=== PATIENT | male | born 1960 | race Caucasian/White ===

== ENCOUNTER 2017-06-18 10:35 | Outpatient (RCR) | payer MEDICARE, MEDICAID, SELFPAY | END 2017-07-07 23:59 | LOC: DC 10:35 | PROVIDERS: Visit Provider Podiatrist | DX: E11.42 Type 2 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with diabetic polyneuropathy (principal); E46 Unspecified protein-calorie malnutrition; T14.90XA Injury, unspecified, initial encounter; Z71.3 Dietary counseling and surveillance | CPT/HCPCS: 97803 ==

== ENCOUNTER 2017-07-07 09:30 | Outpatient (RCR) | payer MEDICARE, MEDICAID, SELFPAY ==
[2017-06-07 00:21] VITALS: BP 121/51; PULSE 84; RESP 20; TEMP 37.1; BMI 39.9
[2017-06-09 09:08] VITALS: BP 139/77; PULSE 85; RESP 20; TEMP 36.4; BMI 39.9
--- NOTE | 2017-06-09 09:52 | PN.PCM_ITS ---
(1) Type 2 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with diabetic polyneuropathy Status: Chronic Current Visit: Yes Code(s): E11.42 - Type 2 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with diabetic polyneuropathy (2) Chronic kidney disease (CKD) Status: Chronic Current Visit: Yes Qualifiers: Code(s): N18.9 - Chronic kidney disease, unspecified (3) Malnutrition Status: Chronic Current Visit: Yes Code(s): E46 - Unspecified protein- calorie malnutrition (4) Delayed wound healing Status: Chronic Current Visit: Yes Code(s): T14.8 - Other injury of unspecified body region (5) Chronic ulcer of right foot with fat layer exposed Status: Chronic Current Visit: Yes Code(s): L97.512 - Non-pressure chronic ulcer of other part of right foot with fat layer exposed Type of Wound Date of Service: 06/09/17 Chief Complaint: Right leg ulcer-healed. Right foot ulcer. Left below-knee amputation stump ulcer- healed History of Wound: 57-year-old white male returns to clinic for follow-up of bilateral leg ulcers and right foot ulcers. He denies fever, chill, nausea, vomiting, loss of appetite. He did go for intervention with Dr. Solis already. He has continued lower extremity swelling. He uses his compression pump once a day and states he does not know why he did not make it a priority to use his compression pumps twice daily as advised. He continues to follow-up with the nutrition services to improve his glucose control and reports this is going helping; he states there is still room for improvement. Progress of Wound: Improving - Physical Exam Vital Signs Temp Pulse Resp BP 97.5 F L 85 20 H 139/77 H 06/09/17 09:08 06/09/17 09:08 06/09/17 09:08 06/09/17 09:08 General: Alert, Oriented x3, Cooperative Extremities: No cyanosis, Capillary Refill Less than 3 Seconds, No Calf Tenderness - Negative Harry and Badillo sign right, Diminished Peripheral Pulses, Edema - Decreased bilateral lower extremity, - - Left below-knee amputation Skin: Ulcer/ Wound - No maceration, no erythema, no streaking, no odor, no purulence, no exposed deep tissue, Bilateral. His skin is atrophic and hairless. This is a cluster and only part of this open wound to the right foot was debrided. Wound Measurements and Assessment WC - Nurse 1 - General Ulcer Measurement Start: 06/09/17 09:08 Freq: Status: Active Protocol: Activity Type Activity Date Activity User E-Sign Co-Sign Detail Recorded Client Recorded Date Recorded By Document 06/09/17 09:08 DL [id number] 06/09/17 09:20 DL 06/09/17 09:08 Wound Center Nurse 1 [Ulcer Assessment Protocol: WC.WD.LOC] #12 RIGHT LATERAL LE -Current Size (cm) - Length 0 -Current Size (cm) - Width 0 -Current Size (cm) - Depth 0 -Total Square Cm 0 -Photo Taken Yes -Exudate Amt None Present (0 %) -Wound Margin Flat & Intact -Necrosis Amt None Present (0 %) -Texture (Martha-wound Skin Appearance) No Abnormality -Moisture (Martha-wound Skin Appearance No Abnormality ) -Color (Martha-wound Skin Appearance) No Abnormality -Temperature (Martha-wound Skin No Abnormality Appearance) (Pt Warm) -Tenderness on Palpation (Martha-wound No Skin Appearance) -Ulcer Cleansing Wound Cleanser -Foul Odor after Cleansing No #11 RIGHT PROXIMAL LE -Current Size (cm) - Length 0 -Current Size (cm) - Width 0 -Current Size (cm) - Depth 0 -Total Square Cm 0 -Photo Taken Yes -Wound Margin Indistinct, Non -Visible -Granulation Amt Large (67-100%) -Granulation Quality [place] -Necrosis Amt None Present (0 %) -Texture (Martha-wound Skin Appearance) No Abnormality -Moisture (Martha-wound Skin Appearance No Abnormality ) -Color (Martha-wound Skin Appearance) No Abnormality -Temperature (Martha-wound Skin No Abnormality Appearance) (Pt Warm) -Ulcer Cleansing Wound Cleanser -Foul Odor after Cleansing No #10- RIGHT PROXIMAL LATERAL LE cluster -Current Size (cm) - Length 0 -Current Size (cm) - Width 0 -Current Size (cm) - Depth 0 -Total Square Cm 0 -Photo Taken Yes -Exudate Amt None Present (0 %) -Wound Margin Indistinct, Non -Visible -Granulation Amt Large (67-100%) -Granulation Quality [place] -Necrosis Amt None Present (0 %) -Structure Exposed N/A -Texture (Martha-wound Skin Appearance) No Abnormality -Moisture (Martha-wound Skin Appearance No Abnormality ) -Color (Martha-wound Skin Appearance) No Abnormality -Temperature (Martha-wound Skin No Abnormality Appearance) (Pt Warm) -Ulcer Cleansing Wound Cleanser -Foul Odor after Cleansing No #3 Right Foot-Toes w/Metatarsal Head -Current Size (cm) - Length 8.6 -Current Size (cm) - Width 9.0 -Current Size (cm) - Depth 0.1 -Total Square Cm (35% of the cluster is open) 77.40 -Photo Taken No -Exudate Amt Large (67-100%) -Exudate Type Serosanguineous -Wound Margin Indistinct, Non -Visible -Granulation Amt Medium (34-66%) -Granulation Quality [place] -Necrosis Amt Medium (34-66%) -Necrotic Tissue Type Adherent Slough -Structure Exposed N/A -Texture (Martha-wound Skin Appearance) No Abnormality -Moisture (Martha-wound Skin Appearance Maceration ) -Color (Martha-wound Skin Appearance) Hemosiderin Staining -Temperature (Martha-wound Skin No Abnormality Appearance) (Pt Warm) -Ulcer Cleansing Not Cleansed -Foul Odor after Cleansing No -Anesthetic Used 4% Lidocaine Solution #1 BTK Left Stump cluster -Current Size (cm) - Length 0.1 -Current Size (cm) - Width 0.1 -Current Size (cm) - Depth 0.1 -Total Square Cm 0.01 -Photo Taken No -Exudate Amt Small (1-33%) -Exudate Type Serosanguineous -Wound Margin Indistinct, Non -Visible -Granulation Amt Large (67-100%) -Granulation Quality [place] -Necrosis Amt None Present (0 %) -Structure Exposed N/A -Texture (Martha-wound Skin Appearance) Scarring -Moisture (Martha-wound Skin Appearance No Abnormality ) -Color (Martha-wound Skin Appearance) Hemosiderin Staining -Temperature (Martha-wound Skin No Abnormality Appearance) (Pt Warm) -Ulcer Cleansing Wound Cleanser -Foul Odor after Cleansing No [Edema Assessment] -Right Calf (cm) 38.4 -Right Ankle (cm) 26.8 -Left Calf (cm) 43 WC - Nurse 2 - General Ulcer CM Notes Start: 06/09/17 09:08 Freq: Status: Active Protocol: Activity Type Activity Date Activity User E-Sign Co-Sign Detail Recorded Client Recorded Date Recorded By Document 18 09:34 [id number] 18 09:41 18 09:34 Wound Center Nurse 2 [Procedure/Treatment] #12 RIGHT LATERAL LE -Time 09:38 -Correct Patient Yes -Correct Side, Site, Position Yes -Correct Procedure Yes -Procedure Performed Yes -Wound/Ulcer Outcome Healed- Epithelialized -Ulcer Cleansing Rinsed/ Irrigated with Saline -Foul Odor after Cleansing No -Bioengineered Tissue No -Cetacaine [place] No -Bleeding Controlled with NA -Treatment Response Procedure Tolerated Well #11 RIGHT PROXIMAL LE -Time 09:38 -Correct Patient Yes -Correct Side, Site, Position Yes -Correct Procedure Yes -Procedure Performed Yes -Post Debridement Size (cm) - Length 0 -Post Debridement Size (cm) - Width 0 -Post Debridement Size (cm) - Depth 0 -Total Square Cm 0 -Wound/Ulcer Outcome Healed- Epithelialized -Ulcer Cleansing Rinsed/ Irrigated with Saline -Foul Odor after Cleansing No -Bioengineered Tissue No -Cetacaine [place] No -Bleeding Controlled with NA -Treatment Response Procedure Tolerated Well #10- RIGHT PROXIMAL LATERAL LE cluster -Time 09:39 -Correct Patient Yes -Correct Side, Site, Position Yes -Correct Procedure Yes -Procedure Performed Yes -Post Debridement Size (cm) - Length 0 -Post Debridement Size (cm) - Width 0 -Post Debridement Size (cm) - Depth 0 -Total Square Cm 0 -Wound/Ulcer Outcome Healed- Epithelialized -Ulcer Cleansing Rinsed/ Irrigated with Saline -Foul Odor after Cleansing No -Bioengineered Tissue No -Cetacaine [place] No -Bleeding Controlled with NA -Treatment Response Procedure Tolerated Well #3 Right Foot-Toes w/Metatarsal Head -Time 09:40 -Correct Patient Yes -Correct Side, Site, Position Yes -Correct Procedure Yes -Procedure Performed Yes -Type of Procedure Debridement -Clinical Debridement Subcutaneous -Post Debridement Size (cm) - Length 8.7 -Post Debridement Size (cm) - Width 9.0 -Post Debridement Size (cm) - Depth 0.1 -Total Square Cm (35% of this cluster was debrided 78.30 (27.70 debrided) -Wound/Ulcer Outcome Not Healed -Ulcer Cleansing Rinsed/ Irrigated with Saline -Foul Odor after Cleansing No -Bioengineered Tissue No -Cetacaine [place] No -Topical Lidocaine (%) 4 -Bleeding Controlled with Pressure -Treatment Response Procedure Tolerated Well #1 BTK Left Stump cluster -Time 09:40 -Correct Patient Yes -Correct Side, Site, Position Yes -Correct Procedure Yes -Procedure Performed Yes -Post Debridement Size (cm) - Length 0.1 -Post Debridement Size (cm) - Width 0.1 -Post Debridement Size (cm) - Depth 0.1 -Total Square Cm 0.01 -Wound/Ulcer Outcome Not Healed -Ulcer Cleansing Rinsed/ Irrigated with Saline -Foul Odor after Cleansing No -Bioengineered Tissue No -Cetacaine [place] No -Bleeding Controlled with NA -Other not debrided today -Treatment Response Procedure Tolerated Well [See Physician Procedure note for Specifics] Pain Scale: 0-10 Numeric [Pain] -Is Patient Pain Free? Yes Musculoskeletal: No Tenderness to Palpation of Joints or Extremities, Muscle Wasting, - - Left below-knee amputation stump site with full epithelialization noted. Lymphatic: - - Lymphedema with chronic induration noted to right lower extremity and invagination of the soft tissue structures of the ankle and foot. Decreased weeping with serosanguineous drainage noted. There is significant epithelialization noted to the right foot wound. And his right leg wounds are fully epithelialized and healed today. Neurological: - - lack Of epicritic sensation to light touch bilateral lower extremity Psych/Mental Status: Normal Affect, Appropriate Debridement Note Post-Debridement Measurements/Treatment WC - Nurse 2 - General Ulcer CM Notes Start: 06/09/17 09:08 Freq: Status: Active Protocol: Activity Type Activity Date Activity User E-Sign Co-Sign Detail Recorded Client Recorded Date Recorded By Document 06/09/17 09:34 [id number] 06/09/17 09:41 06/09/17 09:34 Wound Center Nurse 2 #12 RIGHT LATERAL LE -Time 09:38 -Correct Patient Yes -Correct Side, Site, Position Yes -Correct Procedure Yes -Procedure Performed Yes -Wound/Ulcer Outcome Healed- Epithelialized -Ulcer Cleansing Rinsed/ Irrigated with Saline -Foul Odor after Cleansing No -Bioengineered Tissue No -Cetacaine [place] No -Bleeding Controlled with NA -Treatment Response Procedure Tolerated Well #11 RIGHT PROXIMAL LE -Time 09:38 -Correct Patient Yes -Correct Side, Site, Position Yes -Correct Procedure Yes -Procedure Performed Yes -Post Debridement Size (cm) - Length 0 -Post Debridement Size (cm) - Width 0 -Post Debridement Size (cm) - Depth 0 -Total Square Cm 0 -Wound/Ulcer Outcome Healed- Epithelialized -Ulcer Cleansing Rinsed/ Irrigated with Saline -Foul Odor after Cleansing No -Bioengineered Tissue No -Cetacaine [place] No -Bleeding Controlled with NA -Treatment Response Procedure Tolerated Well #10- RIGHT PROXIMAL LATERAL LE cluster -Time 09:39 -Correct Patient Yes -Correct Side, Site, Position Yes -Correct Procedure Yes -Procedure Performed Yes -Post Debridement Size (cm) - Length 0 -Post Debridement Size (cm) - Width 0 -Post Debridement Size (cm) - Depth 0 -Total Square Cm 0 -Wound/Ulcer Outcome Healed- Epithelialized -Ulcer Cleansing Rinsed/ Irrigated with Saline -Foul Odor after Cleansing No -Bioengineered Tissue No -Cetacaine [place] No -Bleeding Controlled with NA -Treatment Response Procedure Tolerated Well #3 Right Foot-Toes w/Metatarsal Head -Time 09:40 -Correct Patient Yes -Correct Side, Site, Position Yes -Correct Procedure Yes -Procedure Performed Yes -Type of Procedure Debridement -Clinical Debridement Subcutaneous -Post Debridement Size (cm) - Length 8.7 -Post Debridement Size (cm) - Width 9.0 -Post Debridement Size (cm) - Depth 0.1 -Total Square Cm 78.30 -Wound/Ulcer Outcome Not Healed -Ulcer Cleansing Rinsed/ Irrigated with Saline -Foul Odor after Cleansing No -Bioengineered Tissue No -Cetacaine [place] No -Topical Lidocaine (%) 4 -Bleeding Controlled with Pressure -Treatment Response Procedure Tolerated Well #1 BTK Left Stump cluster -Time 09:40 -Correct Patient Yes -Correct Side, Site, Position Yes -Correct Procedure Yes -Procedure Performed Yes -Post Debridement Size (cm) - Length 0.1 -Post Debridement Size (cm) - Width 0.1 -Post Debridement Size (cm) - Depth 0.1 -Total Square Cm 0.01 -Wound/Ulcer Outcome Not Healed -Ulcer Cleansing Rinsed/ Irrigated with Saline -Foul Odor after Cleansing No -Bioengineered Tissue No -Cetacaine [place] No -Bleeding Controlled with NA -Other not debrided today -Treatment Response Procedure Tolerated Well Pain Scale: 0-10 Numeric Is Patient Pain Free? Yes Wound debrided: foot Laterality: Right Wound Grade/Stage: grade 1 Type of Debridement: Excisional debridement Percentage of wound debrided: - - 35% Instrument Used: 5mm curette Tissue Removed: Fibrous, devitalized subcutaneous, biofilm, slough Severity: Fat Layer Exposed Amount of bleeding with debridement: Mild Bleeding Controlled with: Pressure Patient tolerated procedure well Assessment/Plan Active Problems Chronic kidney disease (CKD) (Chronic) Malnutrition (Chronic) Delayed wound healing (Chronic) Chronic ulcer of right foot with fat layer exposed (Chronic) Type 2 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with diabetic polyneuropathy (Chronic) Assessment: ulcers right foot - subcutaneous tissue exposed. right leg ulcers and left lower extremit ulcers - healed. Lymphedema. Chronic lower extremity edema and venous insufficiency. Morbid obesity. Type 2 diabetes uncontrolled with peripheral neuropathy. CKD. Hypertension. Left below-knee amputation. Malnutrition. Delayed wound healing. Nonadherence to treatment plan Plan: I reviewed and discussed his case and continued care plan recommendations. His ulcer sites were evaluated as noted in the clinical panel. Debridement was performed to the right foot is noted in the clinical panel. He demonstrates significant improvement. His continued moderate level drainage is noted. Therefore he was advised to change the right foot ulcers with aquacel Ag. I recommend utilizing bilateral 3M to 2L dressing which is applied today involving the right leg and thigh and up to the left thigh even though his left below-knee amputation stump site is recently healed. It is noted the skin is very friable and he is high risk for reopening. Continue with compression dressings daily. To elevate limbs at rest. To continue to proceed forward use of his lymphedema pump twice daily. It is noted he has been using it about once a day and compliance is imperative for him to start healing at a more appropriate rate. He is now considered on complex care due to inability to fully adhere to the treatment program. It is noted he gone for further testing and intervention session with Dr. Solis and he will follow-up. I reviewed his case verbally with Dr. Solis who suspects increased perfusion is occurring status post procedure anticipates this is resolved and he has demonstrated significant improvement the last couple of weeks. He had stents placed to improve arterial perfusion. He will follow-up with him. His noninvasive vascular arterial studies were reviewed and his COY is 1.05 on the right lower extremity. This will be monitored. To continue with nutritional supplementation, Glucerna. Noted he is under the management of dietary services with the previous nutritional consultation; to continue. We discussed how important complaints at home is in he reports he has some areas in which he knows he can improve upon in regards to following his food plan. His diabetes is uncontrolled and he understands he is at risk for limb loss. To continue with proper glycemic control medical management to optimize healing. I answered all his questions. To return to clinic in 1 week or call sooner if there are any problems.
[2017-06-16 09:18] VITALS: BP 126/64; PULSE 84; RESP 16; TEMP 36.1; BMI 39.9
--- NOTE | 2017-06-16 11:11 | PCM.WC.PN ---
(1) Type 2 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with diabetic polyneuropathy Status: Chronic Current Visit: Yes Code(s): E11.42 - Type 2 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with diabetic polyneuropathy (2) Chronic kidney disease (CKD) Status: Chronic Current Visit: Yes Qualifiers: Code(s): N18.9 - Chronic kidney disease, unspecified (3) Malnutrition Status: Chronic Current Visit: Yes Code(s): E46 - Unspecified protein-calorie malnutrition (4) Delayed wound healing Status: Chronic Current Visit: Yes Code(s): T14.8 - Other injury of unspecified body region (5) Chronic ulcer of right foot with fat layer exposed Status: Chronic Current Visit: Yes Code(s): L97.512 - Non-pressure chronic ulcer of other part of right foot with fat layer exposed Type of Wound Date of Service: 06/17/17 Chief Complaint: Right foot ulcer History of Wound: 57-year-old white male returns to clinic for follow-up of bilateral leg ulcers and right foot ulcers. He denies fever, chill, nausea, vomiting, loss of appetite. He did go for intervention with Dr. Solis already. He has continued lower extremity swelling has been recently better controlled. Uses compression pump twice daily this past week as advised. Progress of Wound: Improving - Physical Exam Vital Signs Temp Pulse Resp BP 96.9 F L 84 16 126/64 H 06/16/17 09:18 06/16/17 09:18 06/16/17 09:18 06/16/17 09:18 General: Alert, Oriented x3, Cooperative Extremities: No cyanosis, Capillary Refill Less than 3 Seconds, No Calf Tenderness - Negative Harry and Badillo sign right, Diminished Peripheral Pulses, Edema - Bilateral lower extremities Skin: Ulcer/ Wound - Right foot cluster no purulence, no erythema, no streaking, no odor, no major maceration no deep tissue exposed., - - The skin is atrophic and hairless bilateral. Epithelialization is noted to left stump site Wound Measurements and Assessment WC - Nurse 1 - General Ulcer Measurement Start: 06/09/17 09:08 Freq: Status: Active Protocol: Activity Type Activity Date Activity User E-Sign Co-Sign Detail Recorded Client Recorded Date Recorded By Document 06/16/17 09:18 MW [id number] 06/16/17 09:26 MW 06/16/17 09:18 Wound Center Nurse 1 [Ulcer Assessment Protocol: WC.WD.LOC] #3 Right Foot-Toes w/Metatarsal Head -Combined with other wound No -Current Size (cm) - Length 14.5 (8.5) -Current Size (cm) - Width 10.0 (8.8) -Current Size (cm) - Depth 0.1 -Total Square Cm (30% of cluster) 145.00 (22.44 debrided) -Photo Taken No -Epithelialization None Present -Tunneling No -Undermining/Tunneling No -Circular Undermining No -Exudate Amt Large (67-100%) -Exudate Type Serosanguineous -Wound Margin Flat & Intact -Granulation Amt Small (1-33%) -Granulation Quality [place] -Slough/Fibrin Yes -Necrosis Amt Large (67-100%) -Necrotic Tissue Type Adherent Slough -Texture (Martha-wound Skin Appearance) Assessed Excoriation Localized Edema -Moisture (Martha-wound Skin Appearance Assessed ) Maceration -Color (Martha-wound Skin Appearance) No Abnormality Assessed -Temperature (Martha-wound Skin No Abnormality Appearance) (Pt Warm) -Tenderness on Palpation (Martha-wound No Skin Appearance) -Ulcer Cleansing soap and water -Foul Odor after Cleansing No -Anesthetic Used 4% Lidocaine Solution #1 BTK Left Stump cluster -Combined with other wound No -Current Size (cm) - Length 0 -Current Size (cm) - Width 0 -Current Size (cm) - Depth 0 -Total Square Cm 0 -Photo Taken No -Epithelialization None Present -Tunneling No -Undermining/Tunneling No -Circular Undermining No -Exudate Amt Large (67-100%) -Exudate Type Serosanguineous -Wound Margin Flat & Intact -Granulation Amt Small (1-33%) -Granulation Quality [place] -Slough/Fibrin Yes -Necrosis Amt Medium (34-66%) -Necrotic Tissue Type Adherent Slough -Structure Exposed N/A -Texture (Martha-wound Skin Appearance) Assessed Excoriation Localized Edema -Moisture (Martha-wound Skin Appearance Assessed ) Maceration -Color (Martha-wound Skin Appearance) No Abnormality Assessed -Temperature (Martha-wound Skin No Abnormality Appearance) (Pt Warm) -Tenderness on Palpation (Martha-wound No Skin Appearance) -Ulcer Cleansing soap and water -Foul Odor after Cleansing No -Anesthetic Used 4% Lidocaine Solution [Edema Assessment] -Lower Limb Edema Present Yes -Right Calf (cm) 36.2 -Right Ankle (cm) 27.0 -Left Calf (cm) 40.8 RADHA - Nurse 2 - General Ulcer CM Notes Start: 06/09/17 09:08 Freq: Status: Active Protocol: Activity Type Activity Date Activity User E-Sign Co-Sign Detail Recorded Client Recorded Date Recorded By Document 06/16/17 09:34 JF [id number] 06/16/17 09:38 JF 06/16/17 09:34 Wound Center Nurse 2 [Procedure/Treatment] #3 Right Foot-Toes w/Metatarsal Head -Time 09:35 -Correct Patient Yes -Correct Side, Site, Position Yes -Correct Procedure Yes -Procedure Performed Yes -Type of Procedure Debridement -Clinical Debridement Subcutaneous -Post Debridement Size (cm) - Length 14.5 (8.6) -Post Debridement Size (cm) - Width 10.0 (8.9) -Post Debridement Size (cm) - Depth 0.1 -Total Square Cm (30% of cluster) 145.00 (22.96 debrided) -Wound/Ulcer Outcome Not Healed -Ulcer Cleansing Rinsed/ Irrigated with Saline -Foul Odor after Cleansing No -Bioengineered Tissue No -Cetacaine [place] No -Bleeding Controlled with Pressure -Treatment Response Procedure Tolerated Well #1 BTK Left Stump cluster -Correct Patient No -Correct Side, Site, Position No -Correct Procedure No -Procedure Performed No -Post Debridement Size (cm) - Length 0 -Post Debridement Size (cm) - Width 0 -Post Debridement Size (cm) - Depth 0 -Total Square Cm 0 -Wound/Ulcer Outcome Healed- Epithelialized [See Physician Procedure note for Specifics] Pain Scale: 0-10 Numeric [Pain] -Is Patient Pain Free? Yes Musculoskeletal: No Tenderness to Palpation of Joints or Extremities, Muscle Wasting, - - Left below-knee amputation stump Neurological: - - lack of epicritic sensation light touch bilateral lower extremities Psych/Mental Status: Normal Affect, Appropriate Debridement Note Post-Debridement Measurements/Treatment RADHA - Nurse 2 - General Ulcer CM Notes Start: 06/09/17 09:08 Freq: Status: Active Protocol: Activity Type Activity Date Activity User E-Sign Co-Sign Detail Recorded Client Recorded Date Recorded By Document 06/09/17 09:34 TM [id number] 06/09/17 09:41 TM Document 06/16/17 09:34 JF [id number] 06/16/17 09:38 JF 06/09/17 06/16/17 09:34 09:34 Wound Center Nurse 2 #12 RIGHT LATERAL LE -Time 09:38 -Correct Patient Yes -Correct Side, Site, Position Yes -Correct Procedure Yes -Procedure Performed Yes -Wound/Ulcer Outcome Healed- Epithelialized -Ulcer Cleansing Rinsed/ Irrigated with Saline -Foul Odor after Cleansing No -Bioengineered Tissue No -Cetacaine [place] No -Bleeding Controlled with NA -Treatment Response Procedure Tolerated Well #11 RIGHT PROXIMAL LE -Time 09:38 -Correct Patient Yes -Correct Side, Site, Position Yes -Correct Procedure Yes -Procedure Performed Yes -Post Debridement Size (cm) - Length 0 -Post Debridement Size (cm) - Width 0 -Post Debridement Size (cm) - Depth 0 -Total Square Cm 0 -Wound/Ulcer Outcome Healed- Epithelialized -Ulcer Cleansing Rinsed/ Irrigated with Saline -Foul Odor after Cleansing No -Bioengineered Tissue No -Cetacaine [place] No -Bleeding Controlled with NA -Treatment Response Procedure Tolerated Well #10- RIGHT PROXIMAL LATERAL LE cluster -Time 09:39 -Correct Patient Yes -Correct Side, Site, Position Yes -Correct Procedure Yes -Procedure Performed Yes -Post Debridement Size (cm) - Length 0 -Post Debridement Size (cm) - Width 0 -Post Debridement Size (cm) - Depth 0 -Total Square Cm 0 -Wound/Ulcer Outcome Healed- Epithelialized -Ulcer Cleansing Rinsed/ Irrigated with Saline -Foul Odor after Cleansing No -Bioengineered Tissue No -Cetacaine [place] No -Bleeding Controlled with NA -Treatment Response Procedure Tolerated Well #3 Right Foot-Toes w/Metatarsal Head -Time 09:40 09:35 -Correct Patient Yes Yes -Correct Side, Site, Position Yes Yes -Correct Procedure Yes Yes -Procedure Performed Yes Yes -Type of Procedure Debridement Debridement -Clinical Debridement Subcutaneous Subcutaneous -Post Debridement Size (cm) - Length 8.7 14.5 -Post Debridement Size (cm) - Width 9.0 10.0 -Post Debridement Size (cm) - Depth 0.1 0.1 -Total Square Cm 78.30 145.00 -Wound/Ulcer Outcome Not Healed Not Healed -Ulcer Cleansing Rinsed/ Rinsed/ Irrigated with Irrigated with Saline Saline -Foul Odor after Cleansing No No -Bioengineered Tissue No No -Cetacaine [place] No No -Topical Lidocaine (%) 4 -Bleeding Controlled with Pressure Pressure -Treatment Response Procedure Procedure Tolerated Well Tolerated Well #1 BTK Left Stump cluster -Time 09:40 -Correct Patient Yes No -Correct Side, Site, Position Yes No -Correct Procedure Yes No -Procedure Performed Yes No -Post Debridement Size (cm) - Length 0.1 0 -Post Debridement Size (cm) - Width 0.1 0 -Post Debridement Size (cm) - Depth 0.1 0 -Total Square Cm 0.01 0 -Wound/Ulcer Outcome Not Healed Healed- Epithelialized -Ulcer Cleansing Rinsed/ Irrigated with Saline -Foul Odor after Cleansing No -Bioengineered Tissue No -Cetacaine [place] No -Bleeding Controlled with NA -Other not debrided today -Treatment Response Procedure Tolerated Well Pain Scale: 0-10 Numeric Is Patient Pain Free? Yes Yes Wound debrided: Foot cluster Laterality: Right Wound Grade/Stage: Grade 1 Type of Debridement: Excisional debridement Anesthesia Used: 4% Lidocaine Solution Depth: in the subcutaneous layer Percentage of wound debrided: 30 Instrument Used: 3mm curette Tissue Removed: Fibrous, devitalized subcutaneous, biofilm, slough Severity: Fat Layer Exposed Amount of bleeding with debridement: Mild Bleeding Controlled with: Pressure Assessment/Plan Active Problems Chronic kidney disease (CKD) (Chronic) Malnutrition (Chronic) Delayed wound healing (Chronic) Chronic ulcer of right foot with fat layer exposed (Chronic) Type 2 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with diabetic polyneuropathy (Chronic) Assessment: ulcers right foot - subcutaneous tissue exposed. Lymphedema. Chronic lower extremity edema and venous insufficiency. Morbid obesity. Type 2 diabetes uncontrolled with peripheral neuropathy. CKD. Hypertension. Left below-knee amputation. Malnutrition. Delayed wound healing. Nonadherence to treatment plan Plan: I reviewed and discussed his case and continued care plan recommendations. His ulcer site was evaluated as noted in the clinical panel. Debridement was performed to the right foot is noted in the clinical panel. He demonstrates significant improvement. His continued moderate level drainage is noted. Therefore he was advised to change the right foot ulcers with Guera. I recommend utilizing bilateral 3M to 2L dressing which is applied today involving the right leg and thigh and up to the left thigh even though his left below-knee amputation stump site is recently healed. It is noted the skin is very friable and he is high risk for reopening. Continue with compression dressings daily. To elevate limbs at rest. To continue to proceed forward use of his lymphedema pump twice daily. He is now considered on complex care due to inability to fully adhere to the treatment program. It is noted he had previous vascular surgery intervention. I reviewed his case verbally with Dr. Solis who suspects increased perfusion is occurring status post procedure anticipates this is resolved and he has demonstrated significant improvement the last couple of weeks. He had stents placed to improve arterial perfusion. He will follow-up with him. His noninvasive vascular arterial studies were reviewed and his COY is 1.05 on the right lower extremity. This will be monitored. To continue with nutritional supplementation, Glucerna. His diabetes is uncontrolled and he understands he is at risk for limb loss. To continue with proper glycemic control medical management to optimize healing. I answered all his questions. To return to clinic in 1 week or call sooner if there are any problems.
[2017-06-23 08:35] VITALS: BP 146/71; PULSE 81; RESP 18; TEMP 36; BMI 39.9
--- NOTE | 2017-06-23 13:59 | PCM.WC.PN ---
(1) Type 2 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with diabetic polyneuropathy Status: Chronic Code(s): E11.42 - Type 2 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with diabetic polyneuropathy (2) Chronic kidney disease (CKD) Status: Chronic Qualifiers: Code(s): N18.9 - Chronic kidney disease, unspecified (3) Malnutrition Status: Chronic Code(s): E46 - Unspecified protein-calorie malnutrition (4) Delayed wound healing Status: Chronic Code(s): T14.8 - Other injury of unspecified body region (5) Chronic ulcer of right foot with fat layer exposed Status: Chronic Code(s): L97.512 - Non-pressure chronic ulcer of other part of right foot with fat layer exposed (6) Blister Status: Acute Code(s): T14.8XXA - Other injury of unspecified body region, initial encounter Type of Wound Date of Service: 06/27/17 Chief Complaint: Right foot ulcer History of Wound: 57-year-old white male returns to clinic for follow-up of bilateral leg ulcers and right foot ulcers. He denies fever, chill, nausea, vomiting, loss of appetite. He did go for intervention with Dr. Solis already. He has continued lower extremity swelling has been recently better controlled. Uses compression pump twice daily this past week as advised.He has a new blister to his left stump site and denies a known trauma. Progress of Wound: Improving right. new blister left - Physical Exam Vital Signs Temp Pulse Resp BP 96.8 F L 81 18 146/71 H 06/23/17 08:35 06/23/17 08:35 06/23/17 08:35 06/23/17 08:35 General: Alert, Oriented x3, Cooperative Extremities: No cyanosis, Capillary Refill Less than 3 Seconds, No Calf Tenderness - Negative Harry and Badillo sign right, Diminished Peripheral Pulses, Edema - Bilateral lower extremities Skin: Ulcer/ Wound - No purulence, no erythema, streaking, no odor, no infection bilateral. There is a new blister to the central medial aspect of the left below-knee amputation stump site with minimal serous drainage on puncture; this blisters approximately 1/2 cm in diameter in the outer layer was kept inact as a biologic dressing, - - The skin is hairless and atrophic bilateral. There are new skin islands of epithelialization tissue to the right foot Wound Measurements and Assessment WC - Nurse 1 - General Ulcer Measurement Start: 06/09/17 09:08 Freq: Status: Active Protocol: Activity Type Activity Date Activity User E-Sign Co-Sign Detail Recorded Client Recorded Date Recorded By Document 06/23/17 08:35 DL [id number] 06/23/17 08:41 DL 06/23/17 08:35 Wound Center Nurse 1 [Ulcer Assessment Protocol: WC.WD.LOC] #3 Right Foot-Toes w/Metatarsal Head -Current Size (cm) - Length 9 -Current Size (cm) - Width 8.7 -Current Size (cm) - Depth 0.1 -Total Square Cm 78.3 -Photo Taken No -Exudate Amt Large (67-100%) -Exudate Type Serosanguineous -Wound Margin Distinct, Outline Attached -Granulation Amt Medium (34-66%) -Granulation Quality [place] -Necrosis Amt Medium (34-66%) -Necrotic Tissue Type Adherent Slough -Structure Exposed N/A -Texture (Martha-wound Skin Appearance) Scarring -Moisture (Martha-wound Skin Appearance Maceration ) -Color (Martha-wound Skin Appearance) No Abnormality -Temperature (Martha-wound Skin No Abnormality Appearance) (Pt Warm) -Tenderness on Palpation (Martha-wound No Skin Appearance) -Ulcer Cleansing Wound Cleanser -Foul Odor after Cleansing No -Anesthetic Used 4% Lidocaine Solution [Edema Assessment] -Right Calf (cm) 38 -Right Ankle (cm) 27.5 -Left Calf (cm) 37 - Nurse 2 - General Ulcer CM Notes Start: 06/09/17 09:08 Freq: Status: Active Protocol: Activity Type Activity Date Activity User E-Sign Co-Sign Detail Recorded Client Recorded Date Recorded By Document 06/23/17 08:49 TM [id number] 06/23/17 08:58 TM 06/23/17 08:49 Wound Center Nurse 2 [Procedure/Treatment] #3 Right Foot-Toes w/Metatarsal Head -Time 08:57 -Correct Patient Yes -Correct Side, Site, Position Yes -Correct Procedure Yes -Procedure Performed Yes -Type of Procedure Debridement -Clinical Debridement Subcutaneous -Post Debridement Size (cm) - Length 8.2 -Post Debridement Size (cm) - Width 7.4 -Post Debridement Size (cm) - Depth 0.1 -Total Square Cm 60.68 -Wound/Ulcer Outcome Not Healed -Ulcer Cleansing Rinsed/ Irrigated with Saline -Foul Odor after Cleansing No -Bioengineered Tissue No -Cetacaine [place] No -Topical Lidocaine (%) 4 -Bleeding Controlled with Pressure -Treatment Response Procedure Tolerated Well [See Physician Procedure note for Specifics] Pain Scale: 0-10 Numeric [Pain] -Is Patient Pain Free? Yes Musculoskeletal: No Tenderness to Palpation of Joints or Extremities, Muscle Wasting, - - No crepitus on palpation bilateral lower extremities. Left below-knee amputation Lymphatic: - - Lymphedema right lower extremity including forefoot Neurological: - - Lack of epicritic sensation light touch bilateral lower extremities Psych/Mental Status: Normal Affect, Appropriate Debridement Note Post-Debridement Measurements/Treatment WC - Nurse 2 - General Ulcer CM Notes Start: 06/09/17 09:08 Freq: Status: Active Protocol: Activity Type Activity Date Activity User E-Sign Co-Sign Detail Recorded Client Recorded Date Recorded By Document 06/09/17 09:34 [id number] 06/09/17 09:41 Document 06/16/17 09:34 [id number] 06/16/17 09:38 Document 06/23/17 08:49 [id number] 06/23/17 08:58 06/09/17 06/16/17 06/23/17 09:34 09:34 08:49 Wound Center Nurse 2 #12 RIGHT LATERAL LE -Time 09:38 -Correct Patient Yes -Correct Side, Site, Position Yes -Correct Procedure Yes -Procedure Performed Yes -Wound/Ulcer Outcome Healed- Epithelialized -Ulcer Cleansing Rinsed/ Irrigated with Saline -Foul Odor after Cleansing No -Bioengineered Tissue No -Cetacaine [place] No -Bleeding Controlled with NA -Treatment Response Procedure Tolerated Well #11 RIGHT PROXIMAL LE -Time 09:38 -Correct Patient Yes -Correct Side, Site, Position Yes -Correct Procedure Yes -Procedure Performed Yes -Post Debridement Size (cm) - Length 0 -Post Debridement Size (cm) - Width 0 -Post Debridement Size (cm) - Depth 0 -Total Square Cm 0 -Wound/Ulcer Outcome Healed- Epithelialized -Ulcer Cleansing Rinsed/ Irrigated with Saline -Foul Odor after Cleansing No -Bioengineered Tissue No -Cetacaine [place] No -Bleeding Controlled with NA -Treatment Response Procedure Tolerated Well #10- RIGHT PROXIMAL LATERAL LE cluster -Time 09:39 -Correct Patient Yes -Correct Side, Site, Position Yes -Correct Procedure Yes -Procedure Performed Yes -Post Debridement Size (cm) - Length 0 -Post Debridement Size (cm) - Width 0 -Post Debridement Size (cm) - Depth 0 -Total Square Cm 0 -Wound/Ulcer Outcome Healed- Epithelialized -Ulcer Cleansing Rinsed/ Irrigated with Saline -Foul Odor after Cleansing No -Bioengineered Tissue No -Cetacaine [place] No -Bleeding Controlled with NA -Treatment Response Procedure Tolerated Well #3 Right Foot-Toes w/Metatarsal Head -Time 09:40 09:35 08:57 -Correct Patient Yes Yes Yes -Correct Side, Site, Position Yes Yes Yes -Correct Procedure Yes Yes Yes -Procedure Performed Yes Yes Yes -Type of Procedure Debridement Debridement Debridement -Clinical Debridement Subcutaneous Subcutaneous Subcutaneous -Post Debridement Size (cm) - Length 8.7 14.5 8.2 -Post Debridement Size (cm) - Width 9.0 10.0 7.4 -Post Debridement Size (cm) - Depth 0.1 0.1 0.1 -Total Square Cm 78.30 145.00 60.68 -Wound/Ulcer Outcome Not Healed Not Healed Not Healed -Ulcer Cleansing Rinsed/ Rinsed/ Rinsed/ Irrigated with Irrigated with Irrigated with Saline Saline Saline -Foul Odor after Cleansing No No No -Bioengineered Tissue No No No -Cetacaine [place] No No No -Topical Lidocaine (%) 4 4 -Bleeding Controlled with Pressure Pressure Pressure -Treatment Response Procedure Procedure Procedure Tolerated Well Tolerated Well Tolerated Well #1 BTK Left Stump cluster -Time 09:40 -Correct Patient Yes No -Correct Side, Site, Position Yes No -Correct Procedure Yes No -Procedure Performed Yes No -Post Debridement Size (cm) - Length 0.1 0 -Post Debridement Size (cm) - Width 0.1 0 -Post Debridement Size (cm) - Depth 0.1 0 -Total Square Cm 0.01 0 -Wound/Ulcer Outcome Not Healed Healed- Epithelialized -Ulcer Cleansing Rinsed/ Irrigated with Saline -Foul Odor after Cleansing No -Bioengineered Tissue No -Cetacaine [place] No -Bleeding Controlled with NA -Other not debrided today -Treatment Response Procedure Tolerated Well Pain Scale: 0-10 Numeric Is Patient Pain Free? Yes Yes Yes Wound debrided: Foot Laterality: Right Wound Grade/Stage: Grade 1 Type of Debridement: Excisional debridement Anesthesia Used: 4% Lidocaine Solution Depth: in the subcutaneous layer Instrument Used: 5mm curette Tissue Removed: Fibrous, devitalized subcutaneous, biofilm, slough Severity: Fat Layer Exposed Amount of bleeding with debridement: Mild Bleeding Controlled with: Pressure Patient tolerated procedure well Assessment/Plan Assessment: ulcers right foot - subcutaneous tissue exposed. Blister left foot -no infection. Lymphedema. Chronic lower extremity edema and venous insufficiency. Morbid obesity. Type 2 diabetes uncontrolled with peripheral neuropathy. CKD. Hypertension. Left below-knee amputation. Malnutrition. Delayed wound healing. Nonadherence to treatment plan Plan: I reviewed and discussed his case and continued care plan recommendations. His ulcer site was evaluated as noted in the clinical panel. Debridement was performed to the right foot is noted in the clinical panel. He demonstrates significant improvement. The left leg blister was was gently drained of serous fluid after verbal consent and alcohol local preparation. no local anesthetic was required due to neuropathy. He tolerated this well. the outer skin layer was kept intact as a biologic agent. He was reassured there are no signs of infection noted. His continued moderate level drainage is noted to the right foot. Therefore he was advised to change the right foot ulcers with [place]. I recommend utilizing bilateral 3M to 2L dressing which is applied today involving the right leg and thigh and up to the left thigh as well. It is noted the skin is very friable and he is high risk for continued ulcers. Continue with compression dressings daily. To elevate limbs at rest. To continue to proceed forward use of his lymphedema pump twice daily. He is now considered on complex care due to inability to fully adhere to the treatment program. It is noted he had previous vascular surgery intervention. I reviewed his case verbally with Dr. Solis who suspects increased perfusion is occurring status post procedure anticipates this is resolved and he has demonstrated significant improvement the last couple of weeks. He had stents placed to improve arterial perfusion. He will follow-up with him. His noninvasive vascular arterial studies were reviewed and his COY is 1.05 on the right lower extremity. This will be monitored. To continue with nutritional supplementation, Glucerna. His diabetes is uncontrolled and he understands he is at risk for limb loss. To continue with proper glycemic control medical management to optimize healing. I answered all his questions. To return to clinic in 1 week or call sooner if there are any problems.
[2017-06-30 09:29] VITALS: BP 152/66; PULSE 86; RESP 20; TEMP 36.6; BMI 39.9
--- NOTE | 2017-06-30 11:36 | PCM.WC.PN ---
(1) Type 2 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with diabetic polyneuropathy Status: Chronic Code(s): E11.42 - Type 2 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with diabetic polyneuropathy (2) Chronic kidney disease (CKD) Status: Chronic Qualifiers: Code(s): N18.9 - Chronic kidney disease, unspecified (3) Malnutrition Status: Chronic Code(s): E46 - Unspecified protein-calorie malnutrition (4) Delayed wound healing Status: Chronic Code(s): T14.8 - Other injury of unspecified body region (5) Chronic ulcer of right foot with fat layer exposed Status: Chronic Code(s): L97.512 - Non-pressure chronic ulcer of other part of right foot with fat layer exposed (6) Blister Status: Acute Code(s): T14.8XXA - Other injury of unspecified body region, initial encounter (7) Skin tear of right lower leg without complication Status: Acute Qualifiers: Encounter type: subsequent encounter Qualified Code(s): S81.811D - Laceration without foreign body, right lower leg, subsequent encounter Code(s): S81.811A - Laceration without foreign body, right lower leg, initial encounter Type of Wound Date of Service: 07/01/17 Chief Complaint: Right foot ulcer History of Wound: 57-year-old white male returns to clinic for follow-up of bilateral leg ulcers and right foot ulcers. He denies fever, chill, nausea, vomiting, loss of appetite. He did go for intervention with Dr. Solis already. He has continued lower extremity swelling has been recently better controlled. Uses compression pump twice daily this past week as advised.He has a new blister to his left stump site and denies a known trauma. Progress of Wound: Improving right. Stable drained blister site left - Physical Exam Vital Signs Temp Pulse Resp BP 98 F 86 20 H 152/66 H 06/30/17 09:29 06/30/17 09:29 06/30/17 09:29 06/30/17 09:29 General: Alert, Oriented x3, Cooperative Extremities: No cyanosis, Capillary Refill Less than 3 Seconds, No Calf Tenderness, Diminished Peripheral Pulses, Edema - Right leg and thigh, - - Left below-knee amputation Skin: Ulcer/ Wound - No purulence, no erythema, no streaking, no odor, no necrosis. The wound size is decreasing. There is no infection left stump site biological drain blister site of left intact. Wound Measurements and Assessment WC - Nurse 1 - General Ulcer Measurement Start: 06/09/17 09:08 Freq: Status: Active Protocol: Activity Type Activity Date Activity User E-Sign Co-Sign Detail Recorded Client Recorded Date Recorded By Document 06/30/17 09:29 DL [id number] 06/30/17 09:49 DL 06/30/17 09:29 Wound Center Nurse 1 [Ulcer Assessment Protocol: RADHA.WD.LOC] #3 Right Foot-Toes w/Metatarsal Head -Current Size (cm) - Length 9.8 -Current Size (cm) - Width 9 -Current Size (cm) - Depth 0.2 -Total Square Cm (50% ofcluster is a wound 88.2 (44.1 sq cm) -Photo Taken No -Exudate Amt Large (67-100%) -Exudate Type Serosanguineous -Wound Margin Distinct, Outline Attached -Granulation Amt Medium (34-66%) -Granulation Quality Red -Necrosis Amt Medium (34-66%) -Necrotic Tissue Type Adherent Slough -Structure Exposed N/A -Texture (Martha-wound Skin Appearance) Localized Edema Scarring -Moisture (Martha-wound Skin Appearance Maceration ) -Color (Martha-wound Skin Appearance) Hemosiderin Staining -Temperature (Martha-wound Skin No Abnormality Appearance) (Pt Warm) -Ulcer Cleansing Wound Cleanser -Foul Odor after Cleansing No -Anesthetic Used 4% Lidocaine Solution [Edema Assessment] -Right Calf (cm) 40.5 -Right Ankle (cm) 27.5 -Left Calf (cm) 33.8 - Nurse 2 - General Ulcer CM Notes Start: 06/09/17 09:08 Freq: Status: Active Protocol: Activity Type Activity Date Activity User E-Sign Co-Sign Detail Recorded Client Recorded Date Recorded By Document 06/30/17 10:09 DL [id number] 06/30/17 10:11 DL 06/30/17 10:09 Wound Center Nurse 2 [Procedure/Treatment] #3 Right Foot-Toes w/Metatarsal Head -Time 10:09 -Correct Patient Yes -Correct Side, Site, Position Yes -Correct Procedure Yes -Procedure Performed Yes -Type of Procedure Debridement -Clinical Debridement Subcutaneous -Post Debridement Size (cm) - Length 9.9 -Post Debridement Size (cm) - Width 9.1 -Post Debridement Size (cm) - Depth 0.2 -Total Square Cm 90.09 (45.05) -Wound/Ulcer Outcome (50% debrided Not Healed -Ulcer Cleansing Rinsed/ Irrigated with Saline -Bioengineered Tissue No -Cetacaine Dovray No -Topical Lidocaine (%) 5 -Bleeding Controlled with Pressure -Treatment Response Procedure Tolerated Well [See Physician Procedure note for Specifics] Pain Scale: 0-10 Numeric [Pain] -Is Patient Pain Free? Yes Musculoskeletal: No Tenderness to Palpation of Joints or Extremities, Muscle Wasting, - - Compartment soft Neurological: - - Lack of sensation to epicritic touch bilateral Psych/Mental Status: Normal Affect, Appropriate Debridement Note Post-Debridement Measurements/Treatment WC - Nurse 2 - General Ulcer CM Notes Start: 06/09/17 09:08 Freq: Status: Active Protocol: Activity Type Activity Date Activity User E-Sign Co-Sign Detail Recorded Client Recorded Date Recorded By Document 06/09/17 09:34 [id number] 06/09/17 09:41 Document 06/16/17 09:34 [id number] 06/16/17 09:38 Document 06/23/17 08:49 TM [id number] 06/23/17 08:58 TM Document 06/30/17 10:09 DL [id number] 06/30/17 10:11 DL 06/09/17 06/16/17 06/23/17 09:34 09:34 08:49 Wound Center Nurse 2 #12 RIGHT LATERAL LE -Time 09:38 -Correct Patient Yes -Correct Side, Site, Position Yes -Correct Procedure Yes -Procedure Performed Yes -Wound/Ulcer Outcome Healed- Epithelialized -Ulcer Cleansing Rinsed/ Irrigated with Saline -Foul Odor after Cleansing No -Bioengineered Tissue No -Cetacaine Dovray No -Bleeding Controlled with NA -Treatment Response Procedure Tolerated Well #11 RIGHT PROXIMAL LE -Time 09:38 -Correct Patient Yes -Correct Side, Site, Position Yes -Correct Procedure Yes -Procedure Performed Yes -Post Debridement Size (cm) - Length 0 -Post Debridement Size (cm) - Width 0 -Post Debridement Size (cm) - Depth 0 -Total Square Cm 0 -Wound/Ulcer Outcome Healed- Epithelialized -Ulcer Cleansing Rinsed/ Irrigated with Saline -Foul Odor after Cleansing No -Bioengineered Tissue No -Cetacaine Dovray No -Bleeding Controlled with NA -Treatment Response Procedure Tolerated Well #10- RIGHT PROXIMAL LATERAL LE cluster -Time 09:39 -Correct Patient Yes -Correct Side, Site, Position Yes -Correct Procedure Yes -Procedure Performed Yes -Post Debridement Size (cm) - Length 0 -Post Debridement Size (cm) - Width 0 -Post Debridement Size (cm) - Depth 0 -Total Square Cm 0 -Wound/Ulcer Outcome Healed- Epithelialized -Ulcer Cleansing Rinsed/ Irrigated with Saline -Foul Odor after Cleansing No -Bioengineered Tissue No -Cetacaine Dovray No -Bleeding Controlled with NA -Treatment Response Procedure Tolerated Well #3 Right Foot-Toes w/Metatarsal Head -Time 09:40 09:35 08:57 -Correct Patient Yes Yes Yes -Correct Side, Site, Position Yes Yes Yes -Correct Procedure Yes Yes Yes -Procedure Performed Yes Yes Yes -Type of Procedure Debridement Debridement Debridement -Clinical Debridement Subcutaneous Subcutaneous Subcutaneous -Post Debridement Size (cm) - Length 8.7 14.5 8.2 -Post Debridement Size (cm) - Width 9.0 10.0 7.4 -Post Debridement Size (cm) - Depth 0.1 0.1 0.1 -Total Square Cm 78.30 145.00 60.68 -Wound/Ulcer Outcome Not Healed Not Healed Not Healed -Ulcer Cleansing Rinsed/ Rinsed/ Rinsed/ Irrigated with Irrigated with Irrigated with Saline Saline Saline -Foul Odor after Cleansing No No No -Bioengineered Tissue No No No -Cetacaine Dovray No No No -Topical Lidocaine (%) 4 4 -Bleeding Controlled with Pressure Pressure Pressure -Treatment Response Procedure Procedure Procedure Tolerated Well Tolerated Well Tolerated Well #1 BTK Left Stump cluster -Time 09:40 -Correct Patient Yes No -Correct Side, Site, Position Yes No -Correct Procedure Yes No -Procedure Performed Yes No -Post Debridement Size (cm) - Length 0.1 0 -Post Debridement Size (cm) - Width 0.1 0 -Post Debridement Size (cm) - Depth 0.1 0 -Total Square Cm 0.01 0 -Wound/Ulcer Outcome Not Healed Healed- Epithelialized -Ulcer Cleansing Rinsed/ Irrigated with Saline -Foul Odor after Cleansing No -Bioengineered Tissue No -Cetacaine Dovray No -Bleeding Controlled with NA -Other not debrided today -Treatment Response Procedure Tolerated Well Pain Scale: 0-10 Numeric Is Patient Pain Free? Yes Yes Yes 06/30/17 10:09 Wound Center Nurse 2 #12 RIGHT LATERAL LE -Time -Correct Patient -Correct Side, Site, Position -Correct Procedure -Procedure Performed -Wound/Ulcer Outcome -Ulcer Cleansing -Foul Odor after Cleansing -Bioengineered Tissue -Cetacaine Dovray -Bleeding Controlled with -Treatment Response #11 RIGHT PROXIMAL LE -Time -Correct Patient -Correct Side, Site, Position -Correct Procedure -Procedure Performed -Post Debridement Size (cm) - Length -Post Debridement Size (cm) - Width -Post Debridement Size (cm) - Depth -Total Square Cm -Wound/Ulcer Outcome -Ulcer Cleansing -Foul Odor after Cleansing -Bioengineered Tissue -Cetacaine Dovray -Bleeding Controlled with -Treatment Response #10- RIGHT PROXIMAL LATERAL LE cluster -Time -Correct Patient -Correct Side, Site, Position -Correct Procedure -Procedure Performed -Post Debridement Size (cm) - Length -Post Debridement Size (cm) - Width -Post Debridement Size (cm) - Depth -Total Square Cm -Wound/Ulcer Outcome -Ulcer Cleansing -Foul Odor after Cleansing -Bioengineered Tissue -Cetacaine Dovray -Bleeding Controlled with -Treatment Response #3 Right Foot-Toes w/Metatarsal Head -Time 10:09 -Correct Patient Yes -Correct Side, Site, Position Yes -Correct Procedure Yes -Procedure Performed Yes -Type of Procedure Debridement -Clinical Debridement Subcutaneous -Post Debridement Size (cm) - Length 9.9 -Post Debridement Size (cm) - Width 9.1 -Post Debridement Size (cm) - Depth 0.2 -Total Square Cm 90.09 -Wound/Ulcer Outcome Not Healed -Ulcer Cleansing Rinsed/ Irrigated with Saline -Foul Odor after Cleansing -Bioengineered Tissue No -Cetacaine Dovray No -Topical Lidocaine (%) 5 -Bleeding Controlled with Pressure -Treatment Response Procedure Tolerated Well #1 BTK Left Stump cluster -Time -Correct Patient -Correct Side, Site, Position -Correct Procedure -Procedure Performed -Post Debridement Size (cm) - Length -Post Debridement Size (cm) - Width -Post Debridement Size (cm) - Depth -Total Square Cm -Wound/Ulcer Outcome -Ulcer Cleansing -Foul Odor after Cleansing -Bioengineered Tissue -Cetacaine Dovray -Bleeding Controlled with -Other -Treatment Response Pain Scale: 0-10 Numeric Is Patient Pain Free? Yes Wound debrided: Foot Laterality: Right Wound Grade/Stage: Grade 1 Type of Debridement: Excisional debridement Anesthesia Used: 4% Lidocaine Solution Depth: in the subcutaneous layer Percentage of wound debrided: 100, 50 Instrument Used: #15 blade Tissue Removed: Fibrous, devitalized subcutaneous, biofilm, slough Severity: Fat Layer Exposed Amount of bleeding with debridement: Mild Bleeding Controlled with: Pressure Patient tolerated procedure well Assessment/Plan Assessment: ulcers right foot - subcutaneous tissue exposed. Blister left foot -no infection. Lymphedema. Chronic lower extremity edema and venous insufficiency. Morbid obesity. Type 2 diabetes uncontrolled with peripheral neuropathy. CKD. Hypertension. Left below-knee amputation. Malnutrition. Delayed wound healing. Nonadherence to treatment plan Plan: I reviewed and discussed his case and continued care plan recommendations. His ulcer site was evaluated as noted in the clinical panel. Debridement was performed to the right foot is noted in the clinical panel. He demonstrates significant improvement. The left leg previously drained blister was left intact. His continued moderate level drainage is noted to the right foot. Therefore he was advised to change the right foot ulcers with Guera. I recommend utilizing bilateral 3M to 2L dressing which is applied today involving the right leg and thigh and up to the left thigh as well. It is noted the skin is very friable and he is high risk for continued ulcers. His home health agency is unable to bring his supplies therefore he will return on Wednesday for dressing change. Continue with compression dressings daily. To elevate limbs at rest. To continue to proceed forward use of his lymphedema pump twice daily. He is now considered on complex care due to inability to fully adhere to the treatment program. CircAid thigh-high were ordered for the right lower extremity; he understands this is a graduated compression device. It is noted he had previous vascular surgery intervention. I reviewed his case verbally with Dr. Solis who suspects increased perfusion is occurring status post procedure anticipates this is resolved and he has demonstrated significant improvement the last couple of weeks. He had stents placed to improve arterial perfusion. He will follow-up with him. His noninvasive vascular arterial studies were reviewed and his COY is 1.05 on the right lower extremity. This will be monitored. To continue with nutritional supplementation, Glucerna. His diabetes is uncontrolled and he understands he is at risk for limb loss. To continue with proper glycemic control medical management to optimize healing. I answered all his questions. To return to clinic in 1 week or call sooner if there are any problems.
[2017-07-05 10:09] VITALS: BP 157/71; PULSE 79; RESP 18; TEMP 36.6; BMI 39.9
[2017-07-07 09:23] VITALS: BP 142/79; PULSE 79; RESP 20; TEMP 36.3; BMI 39.9
--- NOTE | 2017-07-07 11:02 | PCM.WC.PN ---
(1) Chronic ulcer of right foot with fat layer exposed Status: Chronic Current Visit: Yes Code(s): L97.512 - Non-pressure chronic ulcer of other part of right foot with fat layer exposed (2) Type 2 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with diabetic polyneuropathy Status: Chronic Current Visit: Yes Code(s): E11.42 - Type 2 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with diabetic polyneuropathy (3) Chronic kidney disease (CKD) Status: Chronic Current Visit: Yes Qualifiers: Code(s): N18.9 - Chronic kidney disease, unspecified (4) Malnutrition Status: Chronic Current Visit: Yes Code(s): E46 - Unspecified protein-calorie malnutrition (5) Blister Status: Acute Current Visit: Yes Code(s): T14.8XXA - Other injury of unspecified body region, initial encounter (6) Chronic ulcer of left leg with fat layer exposed Status: Acute Current Visit: Yes Code(s): L97.922 - Non-pressure chronic ulcer of unspecified part of left lower leg with fat layer exposed (7) Ulcer of right lower extremity with fat layer exposed Status: Acute Current Visit: Yes Code(s): L97.912 - Non-pressure chronic ulcer of unspecified part of right lower leg with fat layer exposed Type of Wound Date of Service: 07/07/17 Chief Complaint: Right foot ulcer. New blisters to right leg with new wound. new Leg wound History of Wound: 57-year-old white male returns to clinic for follow-up of bilateral leg ulcers and right foot ulcers. He denies fever, chill, nausea, vomiting, loss of appetite. He has continued lower extremity swelling has been recently better controlled. Uses compression pump once daily this past week.He has a new blister to his right leg and denies a known trauma. Progress of Wound: Improving right foot. New ulcers right leg and left leg - Physical Exam Vital Signs Temp Pulse Resp BP 97.3 F L 79 20 H 142/79 H 07/07/17 09:23 07/07/17 09:23 07/07/17 09:23 07/07/17 09:23 General: Alert, Oriented x3, Cooperative Extremities: No cyanosis, Capillary Refill Less than 3 Seconds, No Calf Tenderness - neg bean right lower extremity, Diminished Peripheral Pulses, Edema - bilateral lower extremities Skin: Ulcer/ Wound - No purulence, no erythema, no streaking, no odor, no infection bilateral. There is a horizontally anterior leg new blister with serous drainage and also a posterior lateral right leg small blister with serous drainage noted. The outer skin layer was left intact as a biologic dressing. There now is skin discontinuity to the left leg stump with peripheral skin peeling noted. The previous skin tear to the right leg site is also an open wound with exposed subcutaneous tissue. There is no deep exposed tissue noted bilateral lower extremity. there Is also new skin discontinuity to the heel with peripheral skin peeling. No eschar, blister, or infection, - - Bilateral legs are hairless and atrophic skin Wound Measurements and Assessment - Nurse 1 - General Ulcer Measurement Start: 06/09/17 09:08 Freq: Status: Active Protocol: Activity Type Activity Date Activity User E-Sign Co-Sign Detail Recorded Client Recorded Date Recorded By Document 07/05/17 10:09 BM [id number] 07/05/17 10:49 BMF Document 07/07/17 09:23 RB [id number] 07/07/17 09:44 RB 07/05/17 07/07/17 10:09 09:23 Wound Center Nurse 1 [Ulcer Assessment Protocol: WC.WD.LOC] #13 R Med Heel -Current Size (cm) - Length 1 -Current Size (cm) - Width 0.6 -Current Size (cm) - Depth 0.1 -Total Square Cm 0.6 -Photo Taken Yes -Exudate Amt Small (1-33%) -Exudate Type Serosanguineous -Wound Margin Thickened -Granulation Amt Small (1-33%) -Granulation Quality [place] Red -Necrosis Amt Small (1-33%) -Necrotic Tissue Type Adherent Slough -Structure Exposed N/A -Moisture (Martha-wound Skin Appearance Maceration ) -Color (Martha-wound Skin Appearance) No Abnormality -Tenderness on Palpation (Martha-wound No Skin Appearance) -Ulcer Cleansing Wound Cleanser -Foul Odor after Cleansing No -Anesthetic Used 4% Lidocaine Solution #3 Right Foot-Toes w/Metatarsal Head -Combined with other wound No -Current Size (cm) - Length 12.1 -Current Size (cm) - Width 9 -Current Size (cm) - Depth 0.1 -Total Square Cm 108.9 -Photo Taken No -Exudate Amt Large (67-100%) -Exudate Type Serosanguineous -Wound Margin Distinct, Outline Attached -Granulation Amt Large (67-100%) Medium (34-66%) -Granulation Quality Red [place] -Slough/Fibrin No -Necrosis Amt None Present (0 Medium (34-66%) %) -Necrotic Tissue Type Adherent Slough -Structure Exposed N/A -Texture (Martha-wound Skin Appearance) Scarring Excoriation Localized Edema Scarring -Moisture (Martha-wound Skin Appearance Maceration Maceration ) Weeping Dry/Scaly -Color (Martha-wound Skin Appearance) Erythema Hemosiderin [place] Staining -Temperature (Martha-wound Skin No Abnormality No Abnormality Appearance) (Pt Warm) (Pt Warm) -Tenderness on Palpation (Martha-wound No Skin Appearance) -Ulcer Cleansing Wound Cleanser Wound Cleanser -Foul Odor after Cleansing No No -Anesthetic Used 4% Lidocaine Solution [Edema Assessment] -Right Calf (cm) 41 -Right Ankle (cm) 27.9 -Left Calf (cm) 38.5 WC - Nurse 2 - General Ulcer CM Notes Start: 06/09/17 09:08 Freq: Status: Active Protocol: Activity Type Activity Date Activity User E-Sign Co-Sign Detail Recorded Client Recorded Date Recorded By Document 07/07/17 09:59 [id number] 07/07/17 10:01 07/07/17 09:59 Wound Center Nurse 2 [Procedure/Treatment] #13 R Med Heel -Time 09:59 -Correct Patient Yes -Correct Side, Site, Position Yes -Correct Procedure Yes -Procedure Performed Yes -Type of Procedure Debridement -Clinical Debridement Subcutaneous -Post Debridement Size (cm) - Length 1.1 -Post Debridement Size (cm) - Width 0.6 -Post Debridement Size (cm) - Depth 0.1 -Total Square Cm 0.66 -Wound/Ulcer Outcome Not Healed -Ulcer Cleansing Rinsed/ Irrigated with Saline -Foul Odor after Cleansing No -Cetacaine [place] No -Bleeding Controlled with Pressure -Treatment Response Procedure Tolerated Well #3 Right Foot-Toes w/Metatarsal Head -Time 10:00 -Correct Patient Yes -Correct Side, Site, Position Yes -Correct Procedure Yes -Procedure Performed Yes -Type of Procedure Debridement -Clinical Debridement Subcutaneous -Post Debridement Size (cm) - Length 12.2 -Post Debridement Size (cm) - Width 9.1 -Post Debridement Size (cm) - Depth 0.2 -Total Square Cm 111.02 -Wound/Ulcer Outcome Not Healed -Ulcer Cleansing Rinsed/ Irrigated with Saline -Foul Odor after Cleansing No -Bioengineered Tissue No -Cetacaine [place] No -Bleeding Controlled with Pressure -Other only 20% of ulcer debrided= 22.204cm2. -Treatment Response Procedure Tolerated Well #1 BTK Left Stump cluster -Time 10:01 -Correct Patient Yes -Correct Side, Site, Position Yes -Correct Procedure Yes -Procedure Performed Yes -Type of Procedure Debridement -Clinical Debridement Subcutaneous -Post Debridement Size (cm) - Length 0.6 -Post Debridement Size (cm) - Width 0.8 -Post Debridement Size (cm) - Depth 0.2 -Total Square Cm 0.48 -Wound/Ulcer Outcome Not Healed -Ulcer Cleansing Rinsed/ Irrigated with Saline -Foul Odor after Cleansing No -Bioengineered Tissue No -Cetacaine [place] No -Bleeding Controlled with Pressure -Treatment Response Procedure Tolerated Well [See Physician Procedure note for Specifics] Pain Scale: 0-10 Numeric [Pain] -Is Patient Pain Free? Yes Musculoskeletal: No Tenderness to Palpation of Joints or Extremities, Muscle Wasting, - - Left below-knee amputation Neurological: - - Lack of epicritic sensation light touch bilateral lower extremities Psych/Mental Status: Normal Affect, Appropriate Debridement Note Post-Debridement Measurements/Treatment WC - Nurse 2 - General Ulcer CM Notes Start: 06/09/17 09:08 Freq: Status: Active Protocol: Activity Type Activity Date Activity User E-Sign Co-Sign Detail Recorded Client Recorded Date Recorded By Document 06/09/17 09:34 [id number] 06/09/17 09:41 Document 06/16/17 09:34 [id number] 06/16/17 09:38 Document 06/23/17 08:49 TM [id number] 06/23/17 08:58 TM Document 06/30/17 10:09 DL [id number] 06/30/17 10:11 DL Document 07/07/17 09:59 JF [id number] 07/07/17 10:01 06/09/17 06/16/17 06/23/17 09:34 09:34 08:49 Wound Center Nurse 2 #13 R Med Heel -Time -Correct Patient -Correct Side, Site, Position -Correct Procedure -Procedure Performed -Type of Procedure -Clinical Debridement -Post Debridement Size (cm) - Length -Post Debridement Size (cm) - Width -Post Debridement Size (cm) - Depth -Total Square Cm -Wound/Ulcer Outcome -Ulcer Cleansing -Foul Odor after Cleansing -Cetacaine [place] -Bleeding Controlled with -Treatment Response #12 RIGHT LATERAL LE -Time 09:38 -Correct Patient Yes -Correct Side, Site, Position Yes -Correct Procedure Yes -Procedure Performed Yes -Wound/Ulcer Outcome Healed- Epithelialized -Ulcer Cleansing Rinsed/ Irrigated with Saline -Foul Odor after Cleansing No -Bioengineered Tissue No -Cetacaine [place] No -Bleeding Controlled with NA -Treatment Response Procedure Tolerated Well #11 RIGHT PROXIMAL LE -Time 09:38 -Correct Patient Yes -Correct Side, Site, Position Yes -Correct Procedure Yes -Procedure Performed Yes -Post Debridement Size (cm) - Length 0 -Post Debridement Size (cm) - Width 0 -Post Debridement Size (cm) - Depth 0 -Total Square Cm 0 -Wound/Ulcer Outcome Healed- Epithelialized -Ulcer Cleansing Rinsed/ Irrigated with Saline -Foul Odor after Cleansing No -Bioengineered Tissue No -Cetacaine [place] No -Bleeding Controlled with NA -Treatment Response Procedure Tolerated Well #10- RIGHT PROXIMAL LATERAL LE cluster -Time 09:39 -Correct Patient Yes -Correct Side, Site, Position Yes -Correct Procedure Yes -Procedure Performed Yes -Post Debridement Size (cm) - Length 0 -Post Debridement Size (cm) - Width 0 -Post Debridement Size (cm) - Depth 0 -Total Square Cm 0 -Wound/Ulcer Outcome Healed- Epithelialized -Ulcer Cleansing Rinsed/ Irrigated with Saline -Foul Odor after Cleansing No -Bioengineered Tissue No -Cetacaine [place] No -Bleeding Controlled with NA -Treatment Response Procedure Tolerated Well #3 Right Foot-Toes w/Metatarsal Head -Time 09:40 09:35 08:57 -Correct Patient Yes Yes Yes -Correct Side, Site, Position Yes Yes Yes -Correct Procedure Yes Yes Yes -Procedure Performed Yes Yes Yes -Type of Procedure Debridement Debridement Debridement -Clinical Debridement Subcutaneous Subcutaneous Subcutaneous -Post Debridement Size (cm) - Length 8.7 14.5 8.2 -Post Debridement Size (cm) - Width 9.0 10.0 7.4 -Post Debridement Size (cm) - Depth 0.1 0.1 0.1 -Total Square Cm 78.30 145.00 60.68 -Wound/Ulcer Outcome Not Healed Not Healed Not Healed -Ulcer Cleansing Rinsed/ Rinsed/ Rinsed/ Irrigated with Irrigated with Irrigated with Saline Saline Saline -Foul Odor after Cleansing No No No -Bioengineered Tissue No No No -Cetacaine [place] No No No -Topical Lidocaine (%) 4 4 -Bleeding Controlled with Pressure Pressure Pressure -Other -Treatment Response Procedure Procedure Procedure Tolerated Well Tolerated Well Tolerated Well #1 BTK Left Stump cluster -Time 09:40 -Correct Patient Yes No -Correct Side, Site, Position Yes No -Correct Procedure Yes No -Procedure Performed Yes No -Type of Procedure -Clinical Debridement -Post Debridement Size (cm) - Length 0.1 0 -Post Debridement Size (cm) - Width 0.1 0 -Post Debridement Size (cm) - Depth 0.1 0 -Total Square Cm 0.01 0 -Wound/Ulcer Outcome Not Healed Healed- Epithelialized -Ulcer Cleansing Rinsed/ Irrigated with Saline -Foul Odor after Cleansing No -Bioengineered Tissue No -Cetacaine [place] No -Bleeding Controlled with NA -Other not debrided today -Treatment Response Procedure Tolerated Well Pain Scale: 0-10 Numeric Is Patient Pain Free? Yes Yes Yes 06/30/17 07/07/17 10:09 09:59 Wound Center Nurse 2 #13 R Med Heel -Time 09:59 -Correct Patient Yes -Correct Side, Site, Position Yes -Correct Procedure Yes -Procedure Performed Yes -Type of Procedure Debridement -Clinical Debridement Subcutaneous -Post Debridement Size (cm) - Length 1.1 -Post Debridement Size (cm) - Width 0.6 -Post Debridement Size (cm) - Depth 0.1 -Total Square Cm 0.66 -Wound/Ulcer Outcome Not Healed -Ulcer Cleansing Rinsed/ Irrigated with Saline -Foul Odor after Cleansing No -Cetacaine [place] No -Bleeding Controlled with Pressure -Treatment Response Procedure Tolerated Well #12 RIGHT LATERAL LE -Time -Correct Patient -Correct Side, Site, Position -Correct Procedure -Procedure Performed -Wound/Ulcer Outcome -Ulcer Cleansing -Foul Odor after Cleansing -Bioengineered Tissue -Cetacaine [place] -Bleeding Controlled with -Treatment Response #11 RIGHT PROXIMAL LE -Time -Correct Patient -Correct Side, Site, Position -Correct Procedure -Procedure Performed -Post Debridement Size (cm) - Length -Post Debridement Size (cm) - Width -Post Debridement Size (cm) - Depth -Total Square Cm -Wound/Ulcer Outcome -Ulcer Cleansing -Foul Odor after Cleansing -Bioengineered Tissue -Cetacaine [place] -Bleeding Controlled with -Treatment Response #10- RIGHT PROXIMAL LATERAL LE cluster -Time -Correct Patient -Correct Side, Site, Position -Correct Procedure -Procedure Performed -Post Debridement Size (cm) - Length -Post Debridement Size (cm) - Width -Post Debridement Size (cm) - Depth -Total Square Cm -Wound/Ulcer Outcome -Ulcer Cleansing -Foul Odor after Cleansing -Bioengineered Tissue -Cetacaine [place] -Bleeding Controlled with -Treatment Response #3 Right Foot-Toes w/Metatarsal Head -Time 10:09 10:00 -Correct Patient Yes Yes -Correct Side, Site, Position Yes Yes -Correct Procedure Yes Yes -Procedure Performed Yes Yes -Type of Procedure Debridement Debridement -Clinical Debridement Subcutaneous Subcutaneous -Post Debridement Size (cm) - Length 9.9 12.2 -Post Debridement Size (cm) - Width 9.1 9.1 -Post Debridement Size (cm) - Depth 0.2 0.2 -Total Square Cm 90.09 111.02 -Wound/Ulcer Outcome Not Healed Not Healed -Ulcer Cleansing Rinsed/ Rinsed/ Irrigated with Irrigated with Saline Saline -Foul Odor after Cleansing No -Bioengineered Tissue No No -Cetacaine [place] No No -Topical Lidocaine (%) 5 -Bleeding Controlled with Pressure Pressure -Other only 20% of ulcer debrided= 22.204cm2. -Treatment Response Procedure Procedure Tolerated Well Tolerated Well #1 BTK Left Stump cluster -Time 10:01 -Correct Patient Yes -Correct Side, Site, Position Yes -Correct Procedure Yes -Procedure Performed Yes -Type of Procedure Debridement -Clinical Debridement Subcutaneous -Post Debridement Size (cm) - Length 0.6 -Post Debridement Size (cm) - Width 0.8 -Post Debridement Size (cm) - Depth 0.2 -Total Square Cm 0.48 -Wound/Ulcer Outcome Not Healed -Ulcer Cleansing Rinsed/ Irrigated with Saline -Foul Odor after Cleansing No -Bioengineered Tissue No -Cetacaine [place] No -Bleeding Controlled with Pressure -Other -Treatment Response Procedure Tolerated Well Pain Scale: 0-10 Numeric Is Patient Pain Free? Yes Yes Wound debrided: Foot Laterality: Right Wound Grade/Stage: grade 1 Type of Debridement: Excisional debridement Anesthesia Used: 4% Lidocaine Solution Depth: in the subcutaneous layer Percentage of wound debrided: 20 Instrument Used: #15 blade Tissue Removed: Fibrous, devitalized subcutaneous, biofilm, slough Severity: Fat Layer Exposed Amount of bleeding with debridement: Mild Bleeding Controlled with: Pressure Patient tolerated procedure well - Additional Wound Wound debrided: Leg Laterality: Left Wound Grade/Stage: grade 1 Type of Debridement: Excisional debridement Anesthesia Used: 4% Lidocaine Solution Depth: in the subcutaneous layer Percentage of wound debrided: 100 Instrument Used: #15 blade Tissue Removed: Fibrous, devitalized subcutaneous, biofilm, slough Severity: Fat Layer Exposed Amount of bleeding with debridement: Mild Bleeding Controlled with: Pressure Patient tolerated procedure: Patient tolerated procedure well - Additional Wound Wound debrided: leg Laterality: Right Wound Grade/Stage: Grade 1 Type of Debridement: Excisional debridement Anesthesia Used: 4% Lidocaine Solution Depth: in the subcutaneous layer Percentage of wound debrided: 100 Instrument Used: #15 blade Tissue Removed: Fibrous, devitalized subcutaneous, biofilm, slough Severity: Fat Layer Exposed Amount of bleeding with debridement: Mild Bleeding Controlled with: Pressure Patient tolerated procedure: Patient tolerated procedure well - Additional Wound Wound debrided: Heel Laterality: Right Wound Grade/Stage: Grade 1 Type of Debridement: Excisional debridement Anesthesia Used: 4% Lidocaine Solution Depth: in the subcutaneous layer Percentage of wound debrided: 100 Instrument Used: #15 blade Tissue Removed: Fibrous, devitalized subcutaneous, biofilm, slough Severity: Fat Layer Exposed Amount of bleeding with debridement: Mild Bleeding Controlled with: Pressure Patient tolerated procedure: Patient tolerated procedure well Assessment/Plan Active Problems Chronic kidney disease (CKD) (Chronic) Malnutrition (Chronic) Delayed wound healing (Chronic) Chronic ulcer of left leg with fat layer exposed (Acute) Chronic ulcer of right foot with fat layer exposed (Chronic) Ulcer of right lower extremity with fat layer exposed (Acute) Type 2 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with diabetic polyneuropathy (Chronic) Blister (Acute) Assessment: ulcers right foot - subcutaneous tissue exposed. Ulcers right leg, right heel, left leg are new-subcutaneous tissue exposed. Blister right leg-no infection, new. Lymphedema. Chronic lower extremity edema and venous insufficiency. Morbid obesity. Type 2 diabetes uncontrolled with peripheral neuropathy. CKD. Hypertension. Left below-knee amputation. Malnutrition. Delayed wound healing. Nonadherence to treatment plan Plan: I reviewed and discussed his case and continued care plan recommendations. His ulcer sites were evaluated as noted in the clinical panel. Debridement was performed as noted in the clinical panel. His blister sites were drained with a 15 blade after alcohol preparation. Only serous fluid was drained. The outer skin was left intact as a biologic dressing. He is reassured he does not have signs of local infection today. His continued moderate level drainage is noted to the right foot. Therefore he was advised to change the right foot ulcers with [place]. I recommend utilizing bilateral 3M to 2L dressing which is applied today involving the right leg and thigh and up to the left thigh as well. It is noted the skin is very friable and he is high risk for continued ulcers. His home health agency has not delivered his dressings yet as expected. He will return for nursing visits if needed if his supplies do not continue to arrive. Continue with compression dressings daily. To elevate limbs at rest. To continue to proceed forward use of his lymphedema pump twice daily. He is now considered on complex care due to inability to fully adhere to the treatment program. CircAid thigh-high were ordered for the right lower extremity; he understands this is a graduated compression device. It is noted he had previous vascular surgery intervention. I reviewed his case verbally with Dr. Solis who suspects increased perfusion is occurring status post procedure anticipates this is resolved and he has demonstrated significant improvement the last couple of weeks. He had stents placed to improve arterial perfusion. He will follow-up with him. His noninvasive vascular arterial studies were reviewed and his COY is 1.05 on the right lower extremity. This will be monitored. To continue with nutritional supplementation, Glucerna. His diabetes is uncontrolled and he understands he is at risk for limb loss. To continue with proper glycemic control medical management to optimize healing. I answered all his questions. To return to clinic in 1 week or call sooner if there are any problems.
--- NOTE | 2017-07-07 11:05 | PN.PCM_ITS ---
(1) Chronic ulcer of right foot with fat layer exposed Status: Chronic Current Visit: Yes Code(s): L97.512 - Non-pressure chronic ulcer of other part of right foot with fat layer exposed (2) Type 2 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with diabetic polyneuropathy Status: Chronic Current Visit: Yes Code(s): E11.42 - Type 2 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with diabetic polyneuropathy (3) Chronic kidney disease (CKD) Status: Chronic Current Visit: Yes Qualifiers: Code(s): N18.9 - Chronic kidney disease, unspecified (4) Malnutrition Status: Chronic Current Visit: Yes Code(s): E46 - Unspecified protein- calorie malnutrition (5) Blister Status: Acute Current Visit: Yes Code(s): T14.8XXA - Other injury of unspecified body region, initial encounter (6) Chronic ulcer of left leg with fat layer exposed Status: Acute Current Visit: Yes Code(s): L97.922 - Non-pressure chronic ulcer of unspecified part of left lower leg with fat layer exposed (7) Ulcer of right lower extremity with fat layer exposed Status: Acute Current Visit: Yes Code(s): L97.912 - Non-pressure chronic ulcer of unspecified part of right lower leg with fat layer exposed Type of Wound Date of Service: 07/07/17 Chief Complaint: Right foot ulcer. New blisters to right leg with new wound. new Leg wound History of Wound: 57-year-old white male returns to clinic for follow-up of bilateral leg ulcers and right foot ulcers. He denies fever, chill, nausea, vomiting, loss of appetite. He has continued lower extremity swelling has been recently better controlled. Uses compression pump once daily this past week.He has a new blister to his right leg and denies a known trauma. Progress of Wound: Improving right foot. New ulcers right leg and left leg - Physical Exam Vital Signs Temp Pulse Resp BP 97.3 F L 79 20 H 142/79 H 07/07/17 09:23 07/07/17 09:23 07/07/17 09:23 07/07/17 09:23 General: Alert, Oriented x3, Cooperative Extremities: No cyanosis, Capillary Refill Less than 3 Seconds, No Calf Tenderness - neg bean right lower extremity, Diminished Peripheral Pulses, Edema - bilateral lower extremities Skin: Ulcer/ Wound - No purulence, no erythema, no streaking, no odor, no infection bilateral. There is a horizontally anterior leg new blister with serous drainage and also a posterior lateral right leg small blister with serous drainage noted. The outer skin layer was left intact as a biologic dressing. There now is skin discontinuity to the left leg stump with peripheral skin peeling noted. The previous skin tear to the right leg site is also an open wound with exposed subcutaneous tissue. There is no deep exposed tissue noted bilateral lower extremity. there Is also new skin discontinuity to the heel with peripheral skin peeling. No eschar, blister, or infection, - - Bilateral legs are hairless and atrophic skin Wound Measurements and Assessment - Nurse 1 - General Ulcer Measurement Start: 06/09/17 09:08 Freq: Status: Active Protocol: Activity Type Activity Date Activity User E-Sign Co-Sign Detail Recorded Client Recorded Date Recorded By Document 07/05/17 10:09 BM [id number] 07/05/17 10:49 BMF Document 07/07/17 09:23 RB [id number] 07/07/17 09:44 RB 07/05/17 07/07/17 10:09 09:23 Wound Center Nurse 1 [Ulcer Assessment Protocol: WC.WD.LOC] #13 R Med Heel -Current Size (cm) - Length 1 -Current Size (cm) - Width 0.6 -Current Size (cm) - Depth 0.1 -Total Square Cm 0.6 -Photo Taken Yes -Exudate Amt Small (1-33%) -Exudate Type Serosanguineous -Wound Margin Thickened -Granulation Amt Small (1-33%) -Granulation Quality [place] -Necrosis Amt Small (1-33%) -Necrotic Tissue Type Adherent Slough -Structure Exposed N/A -Moisture (Martha-wound Skin Appearance Maceration ) -Color (Martha-wound Skin Appearance) No Abnormality -Tenderness on Palpation (Martha-wound No Skin Appearance) -Ulcer Cleansing Wound Cleanser -Foul Odor after Cleansing No -Anesthetic Used 4% Lidocaine Solution #3 Right Foot-Toes w/Metatarsal Head -Combined with other wound No -Current Size (cm) - Length 12.1 -Current Size (cm) - Width 9 -Current Size (cm) - Depth 0.1 -Total Square Cm 108.9 -Photo Taken No -Exudate Amt Large (67-100%) -Exudate Type Serosanguineous -Wound Margin Distinct, Outline Attached -Granulation Amt Large (67-100%) Medium (34-66%) -Granulation Quality [place] -Slough/Fibrin No -Necrosis Amt None Present (0 Medium (34-66%) %) -Necrotic Tissue Type Adherent Slough -Structure Exposed N/A -Texture (Martha-wound Skin Appearance) Scarring Excoriation Localized Edema Scarring -Moisture (Martha-wound Skin Appearance Maceration Maceration ) Weeping Dry/Scaly -Color (Martha-wound Skin Appearance) Erythema Hemosiderin [place] Staining -Temperature (Martha-wound Skin No Abnormality No Abnormality Appearance) (Pt Warm) (Pt Warm) -Tenderness on Palpation (Martha-wound No Skin Appearance) -Ulcer Cleansing Wound Cleanser Wound Cleanser -Foul Odor after Cleansing No No -Anesthetic Used 4% Lidocaine Solution [Edema Assessment] -Right Calf (cm) 41 -Right Ankle (cm) 27.9 -Left Calf (cm) 38.5 WC - Nurse 2 - General Ulcer CM Notes Start: 06/09/17 09:08 Freq: Status: Active Protocol: Activity Type Activity Date Activity User E-Sign Co-Sign Detail Recorded Client Recorded Date Recorded By Document 07/07/17 09:59 [id number] 07/07/17 10:01 07/07/17 09:59 Wound Center Nurse 2 [Procedure/Treatment] #13 R Med Heel -Time 09:59 -Correct Patient Yes -Correct Side, Site, Position Yes -Correct Procedure Yes -Procedure Performed Yes -Type of Procedure Debridement -Clinical Debridement Subcutaneous -Post Debridement Size (cm) - Length 1.1 -Post Debridement Size (cm) - Width 0.6 -Post Debridement Size (cm) - Depth 0.1 -Total Square Cm 0.66 -Wound/Ulcer Outcome Not Healed -Ulcer Cleansing Rinsed/ Irrigated with Saline -Foul Odor after Cleansing No -Cetacaine [place] No -Bleeding Controlled with Pressure -Treatment Response Procedure Tolerated Well #3 Right Foot-Toes w/Metatarsal Head -Time 10:00 -Correct Patient Yes -Correct Side, Site, Position Yes -Correct Procedure Yes -Procedure Performed Yes -Type of Procedure Debridement -Clinical Debridement Subcutaneous -Post Debridement Size (cm) - Length 12.2 -Post Debridement Size (cm) - Width 9.1 -Post Debridement Size (cm) - Depth 0.2 -Total Square Cm 111.02 -Wound/Ulcer Outcome Not Healed -Ulcer Cleansing Rinsed/ Irrigated with Saline -Foul Odor after Cleansing No -Bioengineered Tissue No -Cetacaine [place] No -Bleeding Controlled with Pressure -Other only 20% of ulcer debrided= 22.204cm2. -Treatment Response Procedure Tolerated Well #1 BTK Left Stump cluster -Time 10:01 -Correct Patient Yes -Correct Side, Site, Position Yes -Correct Procedure Yes -Procedure Performed Yes -Type of Procedure Debridement -Clinical Debridement Subcutaneous -Post Debridement Size (cm) - Length 0.6 -Post Debridement Size (cm) - Width 0.8 -Post Debridement Size (cm) - Depth 0.2 -Total Square Cm 0.48 -Wound/Ulcer Outcome Not Healed -Ulcer Cleansing Rinsed/ Irrigated with Saline -Foul Odor after Cleansing No -Bioengineered Tissue No -Cetacaine [place] No -Bleeding Controlled with Pressure -Treatment Response Procedure Tolerated Well [See Physician Procedure note for Specifics] Pain Scale: 0-10 Numeric [Pain] -Is Patient Pain Free? Yes Musculoskeletal: No Tenderness to Palpation of Joints or Extremities, Muscle Wasting, - - Left below-knee amputation Neurological: - - Lack of epicritic sensation light touch bilateral lower extremities Psych/Mental Status: Normal Affect, Appropriate Debridement Note Post-Debridement Measurements/Treatment WC - Nurse 2 - General Ulcer CM Notes Start: 06/09/17 09:08 Freq: Status: Active Protocol: Activity Type Activity Date Activity User E-Sign Co-Sign Detail Recorded Client Recorded Date Recorded By Document 06/09/17 09:34 [id number] 06/09/17 09:41 Document 06/16/17 09:34 [id number] 06/16/17 09:38 Document 06/23/17 08:49 TM [id number] 06/23/17 08:58 TM Document 06/30/17 10:09 DL [id number] 06/30/17 10:11 DL Document 07/07/17 09:59 JF [id number] 07/07/17 10:01 06/09/17 06/16/17 06/23/17 09:34 09:34 08:49 Wound Center Nurse 2 #13 R Med Heel -Time -Correct Patient -Correct Side, Site, Position -Correct Procedure -Procedure Performed -Type of Procedure -Clinical Debridement -Post Debridement Size (cm) - Length -Post Debridement Size (cm) - Width -Post Debridement Size (cm) - Depth -Total Square Cm -Wound/Ulcer Outcome -Ulcer Cleansing -Foul Odor after Cleansing -Cetacaine [place] -Bleeding Controlled with -Treatment Response #12 RIGHT LATERAL LE -Time 09:38 -Correct Patient Yes -Correct Side, Site, Position Yes -Correct Procedure Yes -Procedure Performed Yes -Wound/Ulcer Outcome Healed- Epithelialized -Ulcer Cleansing Rinsed/ Irrigated with Saline -Foul Odor after Cleansing No -Bioengineered Tissue No -Cetacaine [place] No -Bleeding Controlled with NA -Treatment Response Procedure Tolerated Well #11 RIGHT PROXIMAL LE -Time 09:38 -Correct Patient Yes -Correct Side, Site, Position Yes -Correct Procedure Yes -Procedure Performed Yes -Post Debridement Size (cm) - Length 0 -Post Debridement Size (cm) - Width 0 -Post Debridement Size (cm) - Depth 0 -Total Square Cm 0 -Wound/Ulcer Outcome Healed- Epithelialized -Ulcer Cleansing Rinsed/ Irrigated with Saline -Foul Odor after Cleansing No -Bioengineered Tissue No -Cetacaine [place] No -Bleeding Controlled with NA -Treatment Response Procedure Tolerated Well #10- RIGHT PROXIMAL LATERAL LE cluster -Time 09:39 -Correct Patient Yes -Correct Side, Site, Position Yes -Correct Procedure Yes -Procedure Performed Yes -Post Debridement Size (cm) - Length 0 -Post Debridement Size (cm) - Width 0 -Post Debridement Size (cm) - Depth 0 -Total Square Cm 0 -Wound/Ulcer Outcome Healed- Epithelialized -Ulcer Cleansing Rinsed/ Irrigated with Saline -Foul Odor after Cleansing No -Bioengineered Tissue No -Cetacaine [place] No -Bleeding Controlled with NA -Treatment Response Procedure Tolerated Well #3 Right Foot-Toes w/Metatarsal Head -Time 09:40 09:35 08:57 -Correct Patient Yes Yes Yes -Correct Side, Site, Position Yes Yes Yes -Correct Procedure Yes Yes Yes -Procedure Performed Yes Yes Yes -Type of Procedure Debridement Debridement Debridement -Clinical Debridement Subcutaneous Subcutaneous Subcutaneous -Post Debridement Size (cm) - Length 8.7 14.5 8.2 -Post Debridement Size (cm) - Width 9.0 10.0 7.4 -Post Debridement Size (cm) - Depth 0.1 0.1 0.1 -Total Square Cm 78.30 145.00 60.68 -Wound/Ulcer Outcome Not Healed Not Healed Not Healed -Ulcer Cleansing Rinsed/ Rinsed/ Rinsed/ Irrigated with Irrigated with Irrigated with Saline Saline Saline -Foul Odor after Cleansing No No No -Bioengineered Tissue No No No -Cetacaine [place] No No No -Topical Lidocaine (%) 4 4 -Bleeding Controlled with Pressure Pressure Pressure -Other -Treatment Response Procedure Procedure Procedure Tolerated Well Tolerated Well Tolerated Well #1 BTK Left Stump cluster -Time 09:40 -Correct Patient Yes No -Correct Side, Site, Position Yes No -Correct Procedure Yes No -Procedure Performed Yes No -Type of Procedure -Clinical Debridement -Post Debridement Size (cm) - Length 0.1 0 -Post Debridement Size (cm) - Width 0.1 0 -Post Debridement Size (cm) - Depth 0.1 0 -Total Square Cm 0.01 0 -Wound/Ulcer Outcome Not Healed Healed- Epithelialized -Ulcer Cleansing Rinsed/ Irrigated with Saline -Foul Odor after Cleansing No -Bioengineered Tissue No -Cetacaine [place] No -Bleeding Controlled with NA -Other not debrided today -Treatment Response Procedure Tolerated Well Pain Scale: 0-10 Numeric Is Patient Pain Free? Yes Yes Yes 06/30/17 07/07/17 10:09 09:59 Wound Center Nurse 2 #13 R Med Heel -Time 09:59 -Correct Patient Yes -Correct Side, Site, Position Yes -Correct Procedure Yes -Procedure Performed Yes -Type of Procedure Debridement -Clinical Debridement Subcutaneous -Post Debridement Size (cm) - Length 1.1 -Post Debridement Size (cm) - Width 0.6 -Post Debridement Size (cm) - Depth 0.1 -Total Square Cm 0.66 -Wound/Ulcer Outcome Not Healed -Ulcer Cleansing Rinsed/ Irrigated with Saline -Foul Odor after Cleansing No -Cetacaine [place] No -Bleeding Controlled with Pressure -Treatment Response Procedure Tolerated Well #12 RIGHT LATERAL LE -Time -Correct Patient -Correct Side, Site, Position -Correct Procedure -Procedure Performed -Wound/Ulcer Outcome -Ulcer Cleansing -Foul Odor after Cleansing -Bioengineered Tissue -Cetacaine [place] -Bleeding Controlled with -Treatment Response #11 RIGHT PROXIMAL LE -Time -Correct Patient -Correct Side, Site, Position -Correct Procedure -Procedure Performed -Post Debridement Size (cm) - Length -Post Debridement Size (cm) - Width -Post Debridement Size (cm) - Depth -Total Square Cm -Wound/Ulcer Outcome -Ulcer Cleansing -Foul Odor after Cleansing -Bioengineered Tissue -Cetacaine [place] -Bleeding Controlled with -Treatment Response #10- RIGHT PROXIMAL LATERAL LE cluster -Time -Correct Patient -Correct Side, Site, Position -Correct Procedure -Procedure Performed -Post Debridement Size (cm) - Length -Post Debridement Size (cm) - Width -Post Debridement Size (cm) - Depth -Total Square Cm -Wound/Ulcer Outcome -Ulcer Cleansing -Foul Odor after Cleansing -Bioengineered Tissue -Cetacaine [place] -Bleeding Controlled with -Treatment Response #3 Right Foot-Toes w/Metatarsal Head -Time 10:09 10:00 -Correct Patient Yes Yes -Correct Side, Site, Position Yes Yes -Correct Procedure Yes Yes -Procedure Performed Yes Yes -Type of Procedure Debridement Debridement -Clinical Debridement Subcutaneous Subcutaneous -Post Debridement Size (cm) - Length 9.9 12.2 -Post Debridement Size (cm) - Width 9.1 9.1 -Post Debridement Size (cm) - Depth 0.2 0.2 -Total Square Cm 90.09 111.02 -Wound/Ulcer Outcome Not Healed Not Healed -Ulcer Cleansing Rinsed/ Rinsed/ Irrigated with Irrigated with Saline Saline -Foul Odor after Cleansing No -Bioengineered Tissue No No -Cetacaine [place] No No -Topical Lidocaine (%) 5 -Bleeding Controlled with Pressure Pressure -Other only 20% of ulcer debrided= 22.204cm2. -Treatment Response Procedure Procedure Tolerated Well Tolerated Well #1 BTK Left Stump cluster -Time 10:01 -Correct Patient Yes -Correct Side, Site, Position Yes -Correct Procedure Yes -Procedure Performed Yes -Type of Procedure Debridement -Clinical Debridement Subcutaneous -Post Debridement Size (cm) - Length 0.6 -Post Debridement Size (cm) - Width 0.8 -Post Debridement Size (cm) - Depth 0.2 -Total Square Cm 0.48 -Wound/Ulcer Outcome Not Healed -Ulcer Cleansing Rinsed/ Irrigated with Saline -Foul Odor after Cleansing No -Bioengineered Tissue No -Cetacaine [place] No -Bleeding Controlled with Pressure -Other -Treatment Response Procedure Tolerated Well Pain Scale: 0-10 Numeric Is Patient Pain Free? Yes Yes Wound debrided: Foot Laterality: Right Wound Grade/Stage: grade 1 Type of Debridement: Excisional debridement Anesthesia Used: 4% Lidocaine Solution Depth: in the subcutaneous layer Percentage of wound debrided: 20 Instrument Used: #15 blade Tissue Removed: Fibrous, devitalized subcutaneous, biofilm, slough Severity: Fat Layer Exposed Amount of bleeding with debridement: Mild Bleeding Controlled with: Pressure Patient tolerated procedure well - Additional Wound Wound debrided: Leg Laterality: Left Wound Grade/Stage: grade 1 Type of Debridement: Excisional debridement Anesthesia Used: 4% Lidocaine Solution Depth: in the subcutaneous layer Percentage of wound debrided: 100 Instrument Used: #15 blade Tissue Removed: Fibrous, devitalized subcutaneous, biofilm, slough Severity: Fat Layer Exposed Amount of bleeding with debridement: Mild Bleeding Controlled with: Pressure Patient tolerated procedure: Patient tolerated procedure well - Additional Wound Wound debrided: leg Laterality: Right Wound Grade/Stage: Grade 1 Type of Debridement: Excisional debridement Anesthesia Used: 4% Lidocaine Solution Depth: in the subcutaneous layer Percentage of wound debrided: 100 Instrument Used: #15 blade Tissue Removed: Fibrous, devitalized subcutaneous, biofilm, slough Severity: Fat Layer Exposed Amount of bleeding with debridement: Mild Bleeding Controlled with: Pressure Patient tolerated procedure: Patient tolerated procedure well - Additional Wound Wound debrided: Heel Laterality: Right Wound Grade/Stage: Grade 1 Type of Debridement: Excisional debridement Anesthesia Used: 4% Lidocaine Solution Depth: in the subcutaneous layer Percentage of wound debrided: 100 Instrument Used: #15 blade Tissue Removed: Fibrous, devitalized subcutaneous, biofilm, slough Severity: Fat Layer Exposed Amount of bleeding with debridement: Mild Bleeding Controlled with: Pressure Patient tolerated procedure: Patient tolerated procedure well Assessment/Plan Active Problems Chronic kidney disease (CKD) (Chronic) Malnutrition (Chronic) Delayed wound healing (Chronic) Chronic ulcer of left leg with fat layer exposed (Acute) Chronic ulcer of right foot with fat layer exposed (Chronic) Ulcer of right lower extremity with fat layer exposed (Acute) Type 2 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with diabetic polyneuropathy (Chronic) Blister (Acute) Assessment: ulcers right foot - subcutaneous tissue exposed. Ulcers right leg, right heel, left leg are new-subcutaneous tissue exposed. Blister right leg-no infection, new. Lymphedema. Chronic lower extremity edema and venous insufficiency. Morbid obesity. Type 2 diabetes uncontrolled with peripheral neuropathy. CKD. Hypertension. Left below-knee amputation. Malnutrition. Delayed wound healing. Nonadherence to treatment plan Plan: I reviewed and discussed his case and continued care plan recommendations. His ulcer sites were evaluated as noted in the clinical panel. Debridement was performed as noted in the clinical panel. His blister sites were drained with a 15 blade after alcohol preparation. Only serous fluid was drained. The outer skin was left intact as a biologic dressing. He is reassured he does not have signs of local infection today. His continued moderate level drainage is noted to the right foot. Therefore he was advised to change the right foot ulcers with [place]. I recommend utilizing bilateral 3M to 2L dressing which is applied today involving the right leg and thigh and up to the left thigh as well. It is noted the skin is very friable and he is high risk for continued ulcers. His home health agency has not delivered his dressings yet as expected. He will return for nursing visits if needed if his supplies do not continue to arrive. Continue with compression dressings daily. To elevate limbs at rest. To continue to proceed forward use of his lymphedema pump twice daily. He is now considered on complex care due to inability to fully adhere to the treatment program. CircAid thigh-high were ordered for the right lower extremity; he understands this is a graduated compression device. It is noted he had previous vascular surgery intervention. I reviewed his case verbally with Dr. Solis who suspects increased perfusion is occurring status post procedure anticipates this is resolved and he has demonstrated significant improvement the last couple of weeks. He had stents placed to improve arterial perfusion. He will follow-up with him. His noninvasive vascular arterial studies were reviewed and his COY is 1.05 on the right lower extremity. This will be monitored. To continue with nutritional supplementation, Glucerna. His diabetes is uncontrolled and he understands he is at risk for limb loss. To continue with proper glycemic control medical management to optimize healing. I answered all his questions. To return to clinic in 1 week or call sooner if there are any problems.
== END 2017-07-07 23:59 ==
LOC: WC 09:30
PROVIDERS: Visit Provider Podiatrist
DX: E11.621 Type 2 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with foot ulcer (principal); E11.42 Type 2 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with diabetic polyneuropathy; E11.22 Type 2 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with diabetic chronic kidney disease; I12.9 Hypertensive chronic kidney disease with stage 1 through stage 4 chronic kidney disease, or unspecified chronic kidney disease; N18.9 Chronic kidney disease, unspecified; L97.512 Non-pressure chronic ulcer of other part of right foot with fat layer exposed; Z89.512 Acquired absence of left leg below knee; M79.89 Other specified soft tissue disorders; E11.51 Type 2 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with diabetic peripheral angiopathy without gangrene; E11.65 Type 2 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with hyperglycemia; E66.01 Morbid (severe) obesity due to excess calories; Z71.3 Dietary counseling and surveillance; I89.0 Lymphedema, not elsewhere classified; R60.0 Localized edema
CPT/HCPCS: 11042; 11045; 29581; 99213; G0463

== ENCOUNTER 2017-07-08 11:00 | Outpatient (RCR) | payer MEDICARE, MEDICAID, SELFPAY ==
[2017-07-07 09:23] VITALS: BP 142/79; BMI 39.9
== END 2017-08-04 23:59 ==
LOC: DC 11:00
PROVIDERS: Visit Provider Podiatrist
DX: E11.42 Type 2 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with diabetic polyneuropathy (principal); E46 Unspecified protein-calorie malnutrition; T14.90XA Injury, unspecified, initial encounter; Z71.3 Dietary counseling and surveillance
CPT/HCPCS: G0108

== ENCOUNTER → 2017-07-08 12:17 | Outpatient (CLI) | payer MEDICARE, MEDICAID, SELFPAY ==
[2017-07-08 13:23] LABS: Absolute Lymphocyte Count 1.21 X10^3/ul (0.83-4.51); Absolute Neutrophil Count 5.7 X10^3/uL (2.0-7.7); Basophil# 0.01 X10^3/uL; Basophil% 0.1 % (0-1); Eosinophil# 0.22 X10^3/uL; Eosinophils% 2.9 % (0-5); Hematocrit 33.2 % (40-54); Hemoglobin 10.3 g/dl (13.0-16.5); Lymphocyte # 1.21 X10^3/ul (4.0); Lymphocyte % 15.7 % (19-41); Mean Corpuscular Hgb 27.6 pg (27.0-32.0); Mean Platelet Vol. 10.7 fl (6.2-12.0); Monocyte# 0.46 X10^3/uL; Neutrophil # 5.74 X10^3/uL (2.7-7.7); Neutrophil % 74.5 % (47-70); Platelet Count 151 K/mm3 (150-450); RBC Distribution Width CV 14.8 % (11.6-14.6); RBC Distribution Width SD 48.4 fl (35.1-43.9); Red Blood Count 3.73 M/mm3 (4.6-6.2); White Blood Count 7.7 K/mm3 (4.4-11.0)
[2017-07-08 13:24] LABS: POSITIVE COUNT NO; POSITIVE DIFFERENTIAL NO; POSITIVE MORPHOLOGY NO
[2017-07-08 13:27] LABS: Protein, Urine (Random) 228.9 mg/dL (<11.9); Protein:Creat Ratio 2491 mg/g CRE (0-200)
[2017-07-08 13:30] LABS: Albumin, Serum 2.9 g/dL (3.2-5.0); BUN 36 mg/dL (7-18); BUN/Creat Ratio 20.6 RATIO (10-20); Calcium,Total 8.6 mg/dL (8.5-10.1); Chloride 103 mmol/L (98-107); Creatinine, Serum 1.75 mg/dL (0.70-1.30); EST Glomerular Filtration Rate 43 mL/min (>60); Est Glom Filt Rate - Afr Amer 52 mL/min (>60); Glucose 275 mg/dL (70-110); Phosphorus 2.9 mg/dL (2.5-4.9); Potassium 4.9 mmol/L (3.5-5.1); Sodium Level 139 mmol/L (136-145)
== END ==
DX: E11.22 Type 2 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with diabetic chronic kidney disease (principal); N18.3 Chronic kidney disease, stage 3 (moderate); R60.9 Edema, unspecified
CPT/HCPCS: 36415; 80069; 82570; 84156; 85025

== ENCOUNTER 2017-07-16 10:18 | Outpatient (RCR) | payer MEDICARE, MEDICAID, SELFPAY ==
[2017-07-15 09:10] VITALS: BP 166/72
--- NOTE | 2017-07-19 18:43 | HP.OTEVAL_ITS ---
Patient's Visit Information DEL BARRIOS is a 57 year old M, referred to Occupational Therapy by Rachele Lux DPM,JFMARIBELL, with a diagnosis of lymphedema. Date of Evaluation: 07/16/17 Occupational Therapist: Meera Martinez, ALLEN/Fred, CHT - Subjective Subjective: Pt states he was dx with Lymphedema about a two years ago. He was undergoing wrapping to bilateral LE for one year. pt states he has not been wrapping for about one year and started going to the wound center in [place] in 2016 and started wrapping to LE the end of May. Pt resides in a apt building, pt states he has a home health to find home health aide. pt states he goes every wed. to the wound center for his LE. Pt states he does have a compression pump that he is using 1x a day- states would like for him to use the compression pump at home 2 x aday. - Pain Right LE 0 Pain Intensity Range: 3 Left LE 0 Pain Intensity Range: 3 - Objective Objective/Observation: pt arrives in with LE wrapped and no shoe or prosthesis. - Lymphedema (Circumferential Measure) Mid-foot: rigth 34cm left NA Ankle: right 36cm left NA Lower calf: right 37cm left NA Largest calf: right 41cm left 44 Below knee: right 42cm left 42cm Above knee: right 51cm left 52 Lower Exremity Comments: pt reports polyneropathy below knee on left and mid calf down on right LE - Lower Limb Functional Index Lower Extremity Functional Score: 11 - Goals Demonstrate adequate knowledge skin care/prec by 2nd week: Yes Select approp compression garment w/donning/care/wear by d/c: Yes Voice need to replace compression garment every 4-6mo by dc: Yes Goal:: pt will demo the ability to perform skin checks daily to identify new blisters or sores - Rehabilitation General Assessment: DMII with polyneuropathy. Chronic kidney disease. Delayed wound healing. chronic ulcer of right foot with fat layer exposed. Blisters. skin tear of right LE without complication Rehabilitation Potential: Fair - Anticipated Interventions Anticipated Interventions: Education re Diagnosis, Manual Lymph Drainage, Education re Life-long lymphedema Management, Education re Correct Donning Tech, Care&Wearing Sched Comp Garments, Caregiver Training - Visit Plan Frequency: one visit for measurments General Plan: will measure pt for custom compression hose at the wound center for pt. to ease pts transportation difficulties. Will submit to [facility] for insurance approval for custom compression garments. TEXT: Thank you for the opportunity to evaluate your patient. For Medicare and Medicare HMO plans, please review the plan of care and approve it. It will need to be FAXED BACK to us at [phone] for Medicare purposes. Please let me know if there are questions or concerns regarding this plan of care. Physician Signature: Date:
--- NOTE | 2017-08-04 08:53 | HP.OTREVAL ---
Rachele Lux, DEBBIE, It has been my pleasure to treat [place] [facility] over the last 1 visits for lymphedema. Please see the progress note below for an update on the occupational therapy plan of care! Objective/Function: Pt demo a need for skilled theapy services to measure pt for custom compression garments for BLE. Today pt was measured for the custom compression garments- will send order to [facility] a DME supplier to order. Once pt recives the compression hose he is to return to ensure compression garment fits well and does not need adj. made. pt left LE is wounds are healing and would anticipate pt to be able to use compression sock on left LE first. right LE more wounds this visit and needs further wound care- will measuer for right LE again in 2-3 weeks to ensure proper use of custom garment. Wound center nurses will call and let therapist know progress of wounds and edema on right LE. Plan Frequency: Monthly Duration: 3 Months Visits in this POC: 3-4 visits Goals - Goals Demonstrate adequate knowledge skin care/prec by 2nd week: Yes Select approp compression garment w/donning/care/wear by d/c: Yes Voice need to replace compression garment every 4-6mo by dc: Yes Goal:: pt will demo the ability to perform skin checks daily to identify new blisters or sores Anticipated Interventions Anticipated Interventions: Education re Diagnosis, Manual Lymph Drainage, Education re Life-long lymphedema Management, Education re Correct Donning Tech,Care&Wearing Sched Comp Garments, Caregiver Training Please do not hesitate to contact me at [phone] by phone or if you have questions or concerns regarding this new plan of care! Sincerely, Meera Martinez, OTR/L, CHT
--- NOTE | 2017-08-04 08:56 | OTREVAL_ITS ---
Rachele Lux, DEBBIE, It has been my pleasure to treat [place] over the last 1 visits for lymphedema. Please see the progress note below for an update on the occupational therapy plan of care! Objective/Function: Pt demo a need for skilled theapy services to measure pt for custom compression garments for BLE. Today pt was measured for the custom compression garments- will send order to [facility] a DME supplier to order. Once pt recives the compression hose he is to return to ensure compression garment fits well and does not need adj. made. pt left LE is wounds are healing and would anticipate pt to be able to use compression sock on left LE first. right LE more wounds this visit and needs further wound care- will measuer for right LE again in 2-3 weeks to ensure proper use of custom garment. Wound center nurses will call and let therapist know progress of wounds and edema on right LE. Plan Frequency: Monthly Duration: 3 Months Visits in this POC: 3-4 visits Goals - Goals Demonstrate adequate knowledge skin care/prec by 2nd week: Yes Select approp compression garment w/donning/care/wear by d/c: Yes Voice need to replace compression garment every 4-6mo by dc: Yes Goal:: pt will demo the ability to perform skin checks daily to identify new blisters or sores Anticipated Interventions Anticipated Interventions: Education re Diagnosis, Manual Lymph Drainage, Education re Life-long lymphedema Management, Education re Correct Donning Tech, Care&Wearing Sched Comp Garments, Caregiver Training Please do not hesitate to contact me at [phone] by phone or Fax: if you have questions or concerns regarding this new plan of care! Sincerely, Meera Martinez, OTR/L, CHT
--- NOTE | 2017-11-02 13:20 | HP.OTDCNRP_ITS ---
HP - Discharge Summary - Patient Information DEL BARRIOS was seen in my office for initial evaluation on 07/16/17. The following Plan of Care was established for this patient: Initial Frequency: Monthly Initial Duration: 3 Months - Anticipated Interventions Anticipated Interventions: Education re Diagnosis, Manual Lymph Drainage, Education re Life-long lymphedema Management, Education re Correct Donning Tech, Care&Wearing Sched Comp Garments, Caregiver Training This patient was last seen in our office 07/16/17. Pertinent comments regarding their Occupational therapy will appear below: pt was seen for custom compression garments- one for is left LE was a stump- the other was thigh high- orders and measurments were sent to [facility] for insurance approval- spoke with Alanna at [facility] and she states insurance does not cover the compression socks. She spoke with Del and he stated he can not pay for the compression socks - so they were not ordered. pt unable to follow POC as he is unable to pay for compression socks. pt d/c due to non attendance- At this point I will be discontinuing this patient from occupational therapy. I would be happy to see this patient again in the future if found appropriate by the physician. Thank you! Meera Martinez, OTR/L, CHT
== END 2017-07-16 19:00 | disposition home or self-care (01) ==
LOC: OT 10:18
PROVIDERS: Visit Provider Podiatrist
DX: I89.0 Lymphedema, not elsewhere classified (principal); L97.512 Non-pressure chronic ulcer of other part of right foot with fat layer exposed; T14.90XD Injury, unspecified, subsequent encounter
CPT/HCPCS: 97166

== ENCOUNTER → 2017-07-29 12:21 | Outpatient (CLI) | payer MEDICARE, MEDICAID, SELFPAY ==
--- NOTE | 2017-07-29 12:32 | MRI_ITS ---
STUDY: MRI RIGHT REARFOOT WITHOUT CONTRAST REASON FOR EXAM: Open wound of the heel, evaluate for osteomyelitis. TECHNIQUE: Standardized fat and water weighted pulse sequences were obtained in all 3 orthogonal planes. COMPARISON: Radiographs 07/21/2017. FINDINGS: There is edema in the subcutis adipose space and a defect of the medial plantar aspect of the heel. There is no focal fluid collection to indicate soft tissue abscess. Normal posterior tibialis tendon. Normal flexor digitorum longus tendon. Normal flexor hallucis longus tendon. Normal peroneus longus and brevis tendons. Normal tibialis anterior tendon. Normal extensor hallucis longus tendon. Normal extensor digitorum longus tendons. There is thickening of the distal Achilles tendon consistent with tendinosis and a small low-grade partial tear of the medial surface of the Achilles tendon 1.7 cm proximal to the calcaneal insertion (inversion recovery sagittal image 21; T2 axial image 23). Normal plantar fascia. Normal plantar calcaneal tubercles. There is atrophy of the intrinsic muscles of the rearfoot with fat replacement. Normal distal tibiofibular syndesmotic ligamentous complex. Normal lateral ligamentous complex. There is an ossicle adjacent to the talar insertion of the anterior talofibular ligament. Normal subtalar ligaments and sinus tarsi. Normal deltoid ligamentous complexes. Normal plantar calcaneonavicular (spring) ligament. Normal tibiotalar articulation. Normal talar dome. Normal subtalar articulations. Normal talonavicular articulation. Normal calcaneocuboid articulation. Normal navicular-cuneiform articulations. There is no bone edema of the calcaneus to indicate osteomyelitis. There is an os trigonum. There is an amputation of the fifth digit at the level of the proximal metatarsal. MRI/Lower Ext/No Jt/w/o IMPRESSION: Edema in the subcutis adipose space without demonstrated osteomyelitis or soft tissue abscess. Distal Achilles tendinosis with a small low-grade partial tear of the Achilles tendon. Atrophy of the intrinsic muscles of the foot consistent with peripheral neuropathy. Electronically Signed: Reinaldo Azevedo MD at 14:39 EST Tel , Service support ,
== END ==
PROVIDERS: Visit Provider Podiatrist
DX: L97.512 Non-pressure chronic ulcer of other part of right foot with fat layer exposed (principal); M86.9 Osteomyelitis, unspecified
CPT/HCPCS: 73718

== ENCOUNTER 2017-08-04 09:30 | Outpatient (RCR) | payer MEDICARE, MEDICAID, SELFPAY ==
[2017-07-07 09:23] VITALS: BP 142/79
[2017-07-08 00:25] VITALS: PULSE 79; RESP 20; TEMP 36.3
[2017-07-09 11:49] VITALS: BP 157/88; PULSE 82; RESP 16; TEMP 36.4; BMI 39.9
[2017-07-15 09:10] VITALS: BP 166/72; PULSE 85; RESP 18; TEMP 36.6; BMI 39.9
--- NOTE | 2017-07-15 13:50 | PCM.WC.PN ---
(1) Nonhealing skin ulcer Status: Acute Current Visit: Yes Code(s): L98.499 - Non-pressure chronic ulcer of skin of other sites with unspecified severity (2) Skin tear of right lower leg without complication Status: Acute Current Visit: Yes Qualifiers: Code(s): S81.811A - Laceration without foreign body, right lower leg, initial encounter (3) BKA stump complication Status: Chronic Current Visit: Yes Code(s): T87.9 - Unspecified complications of amputation stump (4) Chronic ulcer of right foot with fat layer exposed Status: Chronic Current Visit: Yes Code(s): L97.512 - Non-pressure chronic ulcer of other part of right foot with fat layer exposed (5) Delayed wound healing Status: Chronic Current Visit: Yes Code(s): T14.8 - Other injury of unspecified body region (6) Type 2 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with diabetic polyneuropathy Status: Chronic Current Visit: Yes Code(s): E11.42 - Type 2 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with diabetic polyneuropathy Type of Wound Date of Service: 07/15/17 Chief Complaint: Right foot ulcer. New blisters to right leg with new wound. new Leg wound History of Wound: 57-year-old white male returns to clinic for follow-up of bilateral leg ulcers and right foot ulcers. He denies fever, chill, nausea, vomiting, loss of appetite. He has continued lower extremity swelling has been recently better controlled. Uses compression pump once daily this past week.He has a new blister to his right leg and denies a known trauma. Progress of Wound: New ulcers right leg and left stump. - Physical Exam Vital Signs Temp Pulse Resp BP 97.8 F 85 18 166/72 H 07/15/17 09:10 07/15/17 09:10 07/15/17 09:10 07/15/17 09:10 General: Alert, Oriented x3, Cooperative, No apparent distress HEENT: Atraumatic, Normocephalic Oral: Moist Mucosa Neck: Supple Lungs: Normal air movement Cardiovascular: Regular rate Abdomen: Soft Extremities: No cyanosis, Edema Skin: Ulcer/ Wound Wound Measurements and Assessment WC - Nurse 1 - General Ulcer Measurement Start: 07/09/17 09:38 Freq: Status: Active Protocol: Activity Type Activity Date Activity User E-Sign Co-Sign Detail Recorded Client Recorded Date Recorded By Document 07/15/17 09:10 DL [id number] 07/15/17 09:42 DL 07/15/17 09:10 Wound Center Nurse 1 [Ulcer Assessment Protocol: WC.WD.LOC] #13 R Med Heel -Current Size (cm) - Length 2.4 -Current Size (cm) - Width 2.4 -Current Size (cm) - Depth 0.2 -Total Square Cm 5.76 -Photo Taken No -Exudate Amt Medium (34-66%) -Exudate Type Serosanguineous -Wound Margin Thickened -Granulation Amt None Present (0 %) -Necrosis Amt Large (67-100%) -Necrotic Tissue Type Adherent Slough -Structure Exposed N/A -Texture (Martha-wound Skin Appearance) Excoriation -Moisture (Martha-wound Skin Appearance Maceration ) -Color (Martha-wound Skin Appearance) Hemosiderin Staining -Temperature (Martha-wound Skin No Abnormality Appearance) (Pt Warm) -Tenderness on Palpation (Martha-wound No Skin Appearance) -Ulcer Cleansing Wound Cleanser -Foul Odor after Cleansing Yes -Anesthetic Used 4% Lidocaine Solution #12 R LE Cluster -Current Size (cm) - Length 7.6 -Current Size (cm) - Width 6 -Current Size (cm) - Depth 0.1 -Total Square Cm 45.6 -Photo Taken No -Exudate Amt Medium (34-66%) -Exudate Type Serosanguineous -Wound Margin Indistinct, Non -Visible -Granulation Amt Medium (34-66%) -Granulation Quality [place] -Necrosis Amt Medium (34-66%) -Necrotic Tissue Type Adherent Slough -Structure Exposed N/A -Texture (Martha-wound Skin Appearance) Excoriation Scarring -Moisture (Martha-wound Skin Appearance Maceration ) -Color (Martha-wound Skin Appearance) Hemosiderin Staining -Temperature (Martha-wound Skin No Abnormality Appearance) (Pt Warm) -Ulcer Cleansing Wound Cleanser -Foul Odor after Cleansing Yes -Anesthetic Used 4% Lidocaine Solution #11 RIGHT PROXIMAL LE -Current Size (cm) - Length 2 -Current Size (cm) - Width 4 -Current Size (cm) - Depth 0.1 -Total Square Cm 8 -Photo Taken No -Exudate Amt Medium (34-66%) -Exudate Type Serosanguineous -Wound Margin Indistinct, Non -Visible -Granulation Amt Medium (34-66%) -Granulation Quality [place] -Necrosis Amt Medium (34-66%) -Necrotic Tissue Type Adherent Slough -Structure Exposed N/A -Texture (Martha-wound Skin Appearance) Excoriation -Moisture (Martha-wound Skin Appearance Maceration ) -Color (Matrha-wound Skin Appearance) Hemosiderin Staining -Temperature (Martha-wound Skin No Abnormality Appearance) (Pt Warm) -Ulcer Cleansing Wound Cleanser -Foul Odor after Cleansing Yes -Anesthetic Used 4% Lidocaine Solution #10- RIGHT PROXIMAL LATERAL LE cluster -Combined with (Name of Wound-Exactly #12 as it is documented) #9 RIGHT PROXIMAL ANTERIOR LE -Current Size (cm) - Length 4.8 -Current Size (cm) - Width 7 -Current Size (cm) - Depth 0.1 -Total Square Cm 33.6 -Photo Taken No -Exudate Amt Medium (34-66%) -Exudate Type Serosanguineous -Wound Margin Indistinct, Non -Visible -Granulation Amt Medium (34-66%) -Granulation Quality [place] -Necrosis Amt Medium (34-66%) -Necrotic Tissue Type Adherent Slough -Structure Exposed N/A -Texture (Martha-wound Skin Appearance) Excoriation Scarring -Moisture (Martha-wound Skin Appearance Maceration ) -Color (Martha-wound Skin Appearance) Hemosiderin Staining -Temperature (Martha-wound Skin No Abnormality Appearance) (Pt Warm) -Ulcer Cleansing Wound Cleanser -Foul Odor after Cleansing Yes -Anesthetic Used 4% Lidocaine Solution #6 R Med Lower Leg -Current Size (cm) - Length 0.1 -Current Size (cm) - Width 0.1 -Current Size (cm) - Depth 0.1 -Total Square Cm 0.01 -Photo Taken No -Exudate Amt Small (1-33%) -Exudate Type Serosanguineous -Wound Margin Flat & Intact -Granulation Amt Large (67-100%) -Granulation Quality [place] -Necrosis Amt Small (1-33%) -Necrotic Tissue Type Adherent Slough -Structure Exposed N/A -Texture (Martha-wound Skin Appearance) Scarring -Moisture (Martha-wound Skin Appearance Maceration ) -Color (Martha-wound Skin Appearance) Hemosiderin Staining -Temperature (Martha-wound Skin No Abnormality Appearance) (Pt Warm) -Ulcer Cleansing Wound Cleanser -Foul Odor after Cleansing No -Anesthetic Used 4% Lidocaine Solution #3 Right Foot-Toes w/Metatarsal Head circumfrential -Current Size (cm) - Length 10.2 -Current Size (cm) - Width 6.6 -Current Size (cm) - Depth 0.2 -Total Square Cm 67.32 -Photo Taken No -Exudate Amt Large (67-100%) -Exudate Type Serosanguineous -Wound Margin Thickened -Granulation Amt Medium (34-66%) -Granulation Quality [place] -Necrosis Amt Medium (34-66%) -Necrotic Tissue Type Adherent Slough -Texture (Martha-wound Skin Appearance) Excoriation Scarring -Moisture (Martha-wound Skin Appearance Maceration ) -Color (Martha-wound Skin Appearance) Hemosiderin Staining -Ulcer Cleansing Wound Cleanser -Foul Odor after Cleansing Yes -Anesthetic Used 4% Lidocaine Solution #1 BTK Left Stump cluster -Current Size (cm) - Length 3 -Current Size (cm) - Width 6 -Current Size (cm) - Depth 0.1 -Total Square Cm 18 -Photo Taken No -Exudate Amt Medium (34-66%) -Exudate Type Serosanguineous -Wound Margin Thickened -Granulation Amt Medium (34-66%) -Granulation Quality [place] -Necrosis Amt Medium (34-66%) -Necrotic Tissue Type Adherent Slough -Structure Exposed N/A -Texture (Martha-wound Skin Appearance) Scarring -Moisture (Martha-wound Skin Appearance Maceration ) -Color (Martha-wound Skin Appearance) Hemosiderin Staining -Tenderness on Palpation (Martha-wound No Skin Appearance) -Ulcer Cleansing Wound Cleanser -Foul Odor after Cleansing Yes -Anesthetic Used 4% Lidocaine Solution [Edema Assessment] -Right Calf (cm) 37.5 -Right Ankle (cm) 27 -Left Calf (cm) 37 WC - Nurse 2 - General Ulcer CM Notes Start: 07/09/17 09:38 Freq: Status: Active Protocol: Activity Type Activity Date Activity User E-Sign Co-Sign Detail Recorded Client Recorded Date Recorded By Document 07/15/17 10:58 DV [id number] 07/15/17 11:24 DV 07/15/17 10:58 Wound Center Nurse 2 [Procedure/Treatment] #13 R Med Heel -Time 11:05 -Correct Patient Yes -Correct Side, Site, Position Yes -Correct Procedure Yes -Procedure Performed Yes -Type of Procedure Debridement -Clinical Debridement Subcutaneous -Post Debridement Size (cm) - Length 2.5 -Post Debridement Size (cm) - Width 4.0 -Post Debridement Size (cm) - Depth 0.2 -Total Square Cm 10.00 -Wound/Ulcer Outcome Amputation -Ulcer Cleansing Rinsed/ Irrigated with Saline -Foul Odor after Cleansing No -Bioengineered Tissue No -Bleeding Controlled with Pressure -Treatment Response Procedure Tolerated Well #12 R LE Cluster -Time 11:05 -Correct Patient Yes -Correct Side, Site, Position Yes -Correct Procedure Yes -Procedure Performed Yes -Type of Procedure Debridement -Clinical Debridement Subcutaneous -Post Debridement Size (cm) - Length 14.0 -Post Debridement Size (cm) - Width 38.0 -Post Debridement Size (cm) - Depth 0.1 -Total Square Cm 532.00 -Wound/Ulcer Outcome Not Healed -Ulcer Cleansing Rinsed/ Irrigated with Saline -Foul Odor after Cleansing No -Bioengineered Tissue No -Bleeding Controlled with Pressure -Treatment Response Procedure Tolerated Well #11 RIGHT PROXIMAL LE -Correct Patient Yes -Correct Side, Site, Position Yes -Correct Procedure Yes -Procedure Performed Yes -Type of Procedure Debridement -Clinical Debridement Subcutaneous -Wound/Ulcer Outcome Not Healed -Ulcer Cleansing Rinsed/ Irrigated with Saline -Foul Odor after Cleansing No -Bioengineered Tissue No -Bleeding Controlled with Pressure -Treatment Response Procedure Tolerated Well #9 RIGHT PROXIMAL ANTERIOR LE -Time 11:03 -Correct Patient Yes -Correct Side, Site, Position Yes -Correct Procedure Yes -Procedure Performed Yes -Type of Procedure Debridement -Clinical Debridement Subcutaneous -Wound/Ulcer Outcome Not Healed -Ulcer Cleansing Rinsed/ Irrigated with Saline -Foul Odor after Cleansing No -Bioengineered Tissue No -Bleeding Controlled with Pressure -Treatment Response Procedure Tolerated Well #6 R Med Lower Leg -Time 11:03 -Correct Patient Yes -Correct Side, Site, Position Yes -Correct Procedure Yes -Procedure Performed Yes -Type of Procedure Debridement -Clinical Debridement Subcutaneous -Wound/Ulcer Outcome Not Healed -Ulcer Cleansing Rinsed/ Irrigated with Saline -Foul Odor after Cleansing No -Bioengineered Tissue No -Bleeding Controlled with Pressure -Treatment Response Procedure Tolerated Well #3 Right Foot-Toes w/Metatarsal Head circumfrential -Time 11:11 -Correct Patient Yes -Correct Side, Site, Position Yes -Correct Procedure Yes -Procedure Performed Yes -Type of Procedure Debridement -Clinical Debridement Subcutaneous -Post Debridement Size (cm) - Length 4.0 -Post Debridement Size (cm) - Width 24.0 -Post Debridement Size (cm) - Depth 0.2 -Total Square Cm 96.00 -Wound/Ulcer Outcome Not Healed -Ulcer Cleansing Rinsed/ Irrigated with Saline -Foul Odor after Cleansing No -Bioengineered Tissue No -Bleeding Controlled with Pressure -Treatment Response Procedure Tolerated Well #1 BTK Left Stump cluster -Time 10:59 -Correct Patient Yes -Correct Side, Site, Position Yes -Correct Procedure Yes -Procedure Performed Yes -Type of Procedure Debridement -Clinical Debridement Subcutaneous -Post Debridement Size (cm) - Length 35.5 -Post Debridement Size (cm) - Width 10.0 -Post Debridement Size (cm) - Depth 0.1 -Total Square Cm 355.00 -Wound/Ulcer Outcome Not Healed -Ulcer Cleansing Rinsed/ Irrigated with Saline -Foul Odor after Cleansing No -Bioengineered Tissue No -Bleeding Controlled with Pressure -Treatment Response Procedure Tolerated Well [See Physician Procedure note for Specifics] Pain Scale: 0-10 Numeric [Pain] -Is Patient Pain Free? Yes Musculoskeletal: No Muscle Wasting Psych/Mental Status: Normal Affect Debridement Note Post-Debridement Measurements/Treatment WC - Nurse 2 - General Ulcer CM Notes Start: 07/09/17 09:38 Freq: Status: Active Protocol: Activity Type Activity Date Activity User E-Sign Co-Sign Detail Recorded Client Recorded Date Recorded By Document 07/15/17 10:58 DV [id number] 07/15/17 11:24 DV 07/15/17 10:58 Wound Center Nurse 2 #13 R Med Heel -Time 11:05 -Correct Patient Yes -Correct Side, Site, Position Yes -Correct Procedure Yes -Procedure Performed Yes -Type of Procedure Debridement -Clinical Debridement Subcutaneous -Post Debridement Size (cm) - Length 2.5 -Post Debridement Size (cm) - Width 4.0 -Post Debridement Size (cm) - Depth 0.2 -Total Square Cm 10.00 -Wound/Ulcer Outcome Amputation -Ulcer Cleansing Rinsed/ Irrigated with Saline -Foul Odor after Cleansing No -Bioengineered Tissue No -Bleeding Controlled with Pressure -Treatment Response Procedure Tolerated Well #12 R LE Cluster -Time 11:05 -Correct Patient Yes -Correct Side, Site, Position Yes -Correct Procedure Yes -Procedure Performed Yes -Type of Procedure Debridement -Clinical Debridement Subcutaneous -Post Debridement Size (cm) - Length 14.0 -Post Debridement Size (cm) - Width 38.0 -Post Debridement Size (cm) - Depth 0.1 -Total Square Cm 532.00 -Wound/Ulcer Outcome Not Healed -Ulcer Cleansing Rinsed/ Irrigated with Saline -Foul Odor after Cleansing No -Bioengineered Tissue No -Bleeding Controlled with Pressure -Treatment Response Procedure Tolerated Well #11 RIGHT PROXIMAL LE -Correct Patient Yes -Correct Side, Site, Position Yes -Correct Procedure Yes -Procedure Performed Yes -Type of Procedure Debridement -Clinical Debridement Subcutaneous -Wound/Ulcer Outcome Not Healed -Ulcer Cleansing Rinsed/ Irrigated with Saline -Foul Odor after Cleansing No -Bioengineered Tissue No -Bleeding Controlled with Pressure -Treatment Response Procedure Tolerated Well #9 RIGHT PROXIMAL ANTERIOR LE -Time 11:03 -Correct Patient Yes -Correct Side, Site, Position Yes -Correct Procedure Yes -Procedure Performed Yes -Type of Procedure Debridement -Clinical Debridement Subcutaneous -Wound/Ulcer Outcome Not Healed -Ulcer Cleansing Rinsed/ Irrigated with Saline -Foul Odor after Cleansing No -Bioengineered Tissue No -Bleeding Controlled with Pressure -Treatment Response Procedure Tolerated Well #6 R Med Lower Leg -Time 11:03 -Correct Patient Yes -Correct Side, Site, Position Yes -Correct Procedure Yes -Procedure Performed Yes -Type of Procedure Debridement -Clinical Debridement Subcutaneous -Wound/Ulcer Outcome Not Healed -Ulcer Cleansing Rinsed/ Irrigated with Saline -Foul Odor after Cleansing No -Bioengineered Tissue No -Bleeding Controlled with Pressure -Treatment Response Procedure Tolerated Well #3 Right Foot-Toes w/Metatarsal Head circumfrential -Time 11:11 -Correct Patient Yes -Correct Side, Site, Position Yes -Correct Procedure Yes -Procedure Performed Yes -Type of Procedure Debridement -Clinical Debridement Subcutaneous -Post Debridement Size (cm) - Length 4.0 -Post Debridement Size (cm) - Width 24.0 -Post Debridement Size (cm) - Depth 0.2 -Total Square Cm 96.00 -Wound/Ulcer Outcome Not Healed -Ulcer Cleansing Rinsed/ Irrigated with Saline -Foul Odor after Cleansing No -Bioengineered Tissue No -Bleeding Controlled with Pressure -Treatment Response Procedure Tolerated Well #1 BTK Left Stump cluster -Time 10:59 -Correct Patient Yes -Correct Side, Site, Position Yes -Correct Procedure Yes -Procedure Performed Yes -Type of Procedure Debridement -Clinical Debridement Subcutaneous -Post Debridement Size (cm) - Length 35.5 -Post Debridement Size (cm) - Width 10.0 -Post Debridement Size (cm) - Depth 0.1 -Total Square Cm 355.00 -Wound/Ulcer Outcome Not Healed -Ulcer Cleansing Rinsed/ Irrigated with Saline -Foul Odor after Cleansing No -Bioengineered Tissue No -Bleeding Controlled with Pressure -Treatment Response Procedure Tolerated Well Pain Scale: 0-10 Numeric Is Patient Pain Free? Yes Wound debrided: Left Stump Wound Grade/Stage: brooks 1 Type of Debridement: Excisional debridement Anesthesia Used: 4% Lidocaine Solution Depth: Down to and including healthy tissue, in the subcutaneous layer Percentage of wound debrided: 100 Instrument Used: 7mm curette Tissue Removed: Slough, Devitalized tissue Amount of bleeding with debridement: Mild Bleeding Controlled with: Pressure Patient tolerated procedure well - Additional Wound Wound debrided: Right heel Wound Grade/Stage: Stage III Anesthesia Used: 4% Lidocaine Solution Depth: Down to and including healthy tissue, in the subcutaneous layer Percentage of wound debrided: 100 Instrument Used: 7mm curette, #15 blade, Forceps Tissue Removed: Slough, fibrin and devitalized tissue Severity: Fat Layer Exposed Amount of bleeding with debridement: Mild Bleeding Controlled with: Pressure Patient tolerated procedure: Patient tolerated procedure well - Additional Wound Wound debrided: Right foot ( Digits ) Wound Grade/Stage: Brooks I Type of Debridement: Excisional debridement Anesthesia Used: 4% Lidocaine Solution Depth: Down to and including healthy tissue, in the subcutaneous layer Percentage of wound debrided: 100 Instrument Used: 7mm curette Tissue Removed: Devitalized tissue, Fibrin, Slough Severity: Fat Layer Exposed Amount of bleeding with debridement: Mild Bleeding Controlled with: Pressure Patient tolerated procedure: Patient tolerated procedure well - Additional Wound Wound debrided: Right Leg Wound Grade/Stage: brooks 1 Type of Debridement: Excisional debridement Anesthesia Used: 4% Lidocaine Solution Depth: Down to and including healthy tissue Percentage of wound debrided: 100 Instrument Used: 7mm curette Tissue Removed: Slough and devitalized tissue Severity: Limited To Skin Breakdown Amount of bleeding with debridement: Mild Bleeding Controlled with: Pressure Patient tolerated procedure: Patient tolerated procedure well Assessment/Plan Active Problems BKA stump complication (Chronic) Skin tear of right lower leg without complication (Acute) Type 2 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with diabetic polyneuropathy (Chronic) Chronic ulcer of right foot with fat layer exposed (Chronic) Delayed wound healing (Chronic) Nonhealing skin ulcer (Acute) Assessment: ulcers right foot - subcutaneous tissue exposed. Ulcers right leg, right heel, left leg -subcutaneous tissue exposed. Ulcer Left Stump. Lymphedema. Chronic lower extremity edema and venous insufficiency. Morbid obesity. Type 2 diabetes uncontrolled with peripheral neuropathy. CKD. Hypertension. Left below-knee amputation. Malnutrition. Delayed wound healing. Nonadherence to treatment plan Plan: Courtesy visit for Dr. Lux. Right Foot ulcer appears significantly mascereated with foul odour. Debridement as documented above. Culture also taken. Left heel wound appears also to have worsenend per patient and nursing staff. Debridement as documented. Please refer to debridement note for all other debridement details. Apply gj to all wounds with adaptic covering. Continue 3M wraps as previously recommended. Offloading of recomended especially of right heel. Optimal blood sugar control. Elevate lower extremity when sitted and in bed. Continue increased protein intake and supplements. Follow up in [address] Lux.
[2017-07-21 09:32] VITALS: BP 144/54; PULSE 88; RESP 16; TEMP 36.6; BMI 39.9
--- NOTE | 2017-07-21 09:51 | PCM.PN.ID ---
Patient Problems: Active and Suspected Problems Skin tear of right lower leg without complication (Acute) Nonhealing skin ulcer (Acute) Subjective: Increased purulent drainage and R heel ulcer. Toe with continued maceration. No fever or chills. Wound cx sent last visit 07/15, he has not started abx yet due to difficulty traveling. Reports upset stomach with flagyl in the past. - Physical Exam General: Alert, Cooperative, No apparent distress Lungs: Clear to auscultation, Normal air movement Cardiovascular: Regular rate, Regular Rhythm Abdomen: Soft, Non Tender, Non-Distended Extremities: - - LLE s/p BKA Skin: Ulcer/ Wound - R foot with maceration and redness/swelling of toes. R medial heel with thick callus and black discoloration. Vital Signs Temp Pulse Resp BP 97.8 F 85 18 166/72 H 07/15/17 09:10 07/15/17 09:10 07/15/17 09:10 07/15/17 09:10 Oxygen Delivery Method Room Air Body Mass Index (BMI) 39.9 Finger Stick Blood Glucose 61 Microbiology Past 72 Hours 07/15/17 11:15 Gram Stain - Final Wound - Other Wound Culture - Final Klebsiella pneumoniae sp pneum Proteus mirabilis Morganella morganii sp morgani Anaerobic Culture - Final No anaerobic bacteria isolated. Route of nutrition/ use of supplements: [] Nutritional Intake: [] IV Site: [] Elizalde Catheter: [] - Assessment/Plan Antibiotics: [] Assessment/Plan: [] Active and Suspected Problems Skin tear of right lower leg without complication (Acute) Nonhealing skin ulcer (Acute) Chronic R foot infection with T2DM and CKD - worsening drainage and ulceration. Recent cx with klebs, proteus, and morganella. Agree with starting course of cefdinir and cipro. Ideally would also have anaerobic coverage, but has h/o intolerance with flagyl. Clinda would be an option, but would have increased risk of cdiff, particularly with the other abx he's also starting. Recommend imaging of R foot. I think MRI would be best but would be difficult to arrange with his limited ability to travel. Would start with xrays of R foot and see how he responds to po abx. High concern that he will ultimately require another amputation. Will follow, d/w nursing staff, please call with any questions.
--- NOTE | 2017-07-21 11:38 | RAD_ITS ---
STUDY: X-RAY - RIGHT FOOT CLINICAL: Male, 57 years old. Infection, wound care follow-up TECHNIQUE: 3 view(s) of the foot. COMPARISON: Prior study of January 08, 2017 FINDINGS: The bones are osteopenic. Normal talus, calcaneus, and tarsal bones. Normal visualized subtalar, talonavicular, calcaneocuboid, tarsal and tarsometatarsal articulations. There is status post amputation changes of the fifth digital ray through the proximal shaft of the fifth metatarsal. There is degenerative arthrosis of the metatarsophalangeal joint of the hallux . Normal tibial and fibular sesamoid bones. Normal interphalangeal joint of the great toe. Normal phalanges of the great toe. There are mild degenerative changes of the second, third, and fourth metatarsophalangeal joints. There is an old healed fracture of the base of the third proximal phalanx. There is marked diffuse soft tissue swelling of the mid to distal foot. There is no evidence of soft tissue gas or radiopaque foreign body. RAD/Foot min 3 Views IMPRESSION: 1. Status post amputation of the fifth digital ray through the proximal shaft of the fifth metatarsal. 2. Generalized osteopenia. 3. Degenerative changes as reported above. 4. Markedly diffuse soft tissue swelling of the mid to distal foot. There is no evidence of soft tissue gas or radiopaque foreign body. 5. There is no radiographic evidence of acute osteomyelitis. Findings are similar to the previous study. Electronically Signed: Kevin Garcia MD at 23:54 EST , Service support ,
--- NOTE | 2017-07-21 11:50 | PCM.WC.PN ---
(1) BKA stump complication Status: Chronic Current Visit: Yes Code(s): T87.9 - Unspecified complications of amputation stump (2) Cellulitis of lower extremity Status: Acute Current Visit: Yes Qualifiers: Laterality: right Qualified Code(s): L03.115 - Cellulitis of right lower limb Code(s): L03.119 - Cellulitis of unspecified part of limb (3) Blister Status: Acute Current Visit: Yes Code(s): T14.8XXA - Other injury of unspecified body region, initial encounter (4) Type 2 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with diabetic polyneuropathy Status: Chronic Current Visit: Yes Code(s): E11.42 - Type 2 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with diabetic polyneuropathy (5) Ulcer of right lower extremity with fat layer exposed Status: Chronic Current Visit: Yes Code(s): L97.912 - Non-pressure chronic ulcer of unspecified part of right lower leg with fat layer exposed (6) Chronic ulcer of right foot with fat layer exposed Status: Chronic Current Visit: Yes Code(s): L97.512 - Non-pressure chronic ulcer of other part of right foot with fat layer exposed (7) Delayed wound healing Status: Chronic Current Visit: Yes Code(s): T14.8 - Other injury of unspecified body region (8) Malnutrition Status: Chronic Current Visit: Yes Code(s): E46 - Unspecified protein-calorie malnutrition (9) Venous insufficiency Status: Chronic Current Visit: Yes (10) Lymphedema Status: Chronic Current Visit: Yes Code(s): I89.0 - Lymphedema, not elsewhere classified Type of Wound Date of Service: 07/21/17 Chief Complaint: Right foot ulcer. New blisters to left leg with new wound. infection right heel ulcer History of Wound: 57-year-old white male returns to clinic for follow-up of bilateral leg ulcers and right foot ulcers. He denies fever, chill, nausea, vomiting, loss of appetite. He has continued lower extremity swelling. Uses compression pump once daily this past week.He has a new blister to his left leg and denies a known trauma. He did not start his antibiotics as advised. Saw Dr. Valdes last week identified a new infection and obtain a culture. He reports he is not able to drive to get his antibiotics. He denies no odor or redness. He also saw infectious disease this morning. Progress of Wound: Progressive and worsening right foot status. Left below-knee amputation stump site blister. Right leg ulcer and left thigh ulcer - Physical Exam Vital Signs Temp Pulse Resp BP 98 F 88 16 144/54 H 07/21/17 09:32 18 09:32 07/21/17 09:32 07/21/17 09:32 General: Alert, Oriented x3, Cooperative Extremities: No cyanosis, No edema - bilateral lower extremities, Capillary Refill Less than 3 Seconds - all digits right foot, No Calf Tenderness - right, Diminished Peripheral Pulses, Edema - bilateral lower extremities Skin: Ulcer/ Wound - No maceration, no erythema, no odor, no streaking to the left lower extremity. There is a new serous filled 1 cm blister to the anterior part of the left below-knee amputation stump site. The skin peeling is noted to the amputation stump site with full epithelialization. There is a new skin discontinuity to the posterior left thigh with some hemorrhagic tissue exposed. The right leg and right foot wounds have granulated tissue with some maceration. More notable, and the right heel ulcer site has significantly worsened compared to the last visit I had with him 2 weeks ago. There is a fibrous and nonviable eschar to the heel upon debridement there is exposed calcaneus fat pad. No anna purulence on expression. There is liquefied and fibrous tissue noted. Edema and erythema extending around the wound. The odor has decreased after debridement and saline irrigation. There is no crepitus on palpation. The compartments of the right foot ankle and leg remains soft., - - Atrophic and hairless skin bilateral lower extremities Wound Measurements and Assessment RADHA - Nurse 1 - General Ulcer Measurement Start: 07/09/17 09:38 Freq: Status: Active Protocol: Activity Type Activity Date Activity User E-Sign Co-Sign Detail Recorded Client Recorded Date Recorded By Document 07/21/17 09:32 [facility] [id number] 07/21/17 10:01 [facility] 07/21/17 09:32 Wound Center Nurse 1 [Ulcer Assessment Protocol: WC.WD.LOC] #14- LT POPLITEAL FOLD -Combined with other wound No -Current Size (cm) - Length 0.6 -Current Size (cm) - Width 1 -Current Size (cm) - Depth 0.1 -Total Square Cm 0.6 -Date of Last Picture (Recall this 07/21/17 field) -Photo Taken Yes -Epithelialization None Present -Tunneling No -Undermining/Tunneling No -Exudate Amt Small (1-33%) -Exudate Type Serosanguineous -Wound Margin Distinct, Outline Attached -Granulation Amt Medium (34-66%) -Granulation Quality Red -Slough/Fibrin Yes -Necrosis Amt Small (1-33%) -Necrotic Tissue Type Adherent Slough -Structure Exposed None/Limited to Skin Breakdown -Texture (Martha-wound Skin Appearance) Not Assessed -Moisture (Martha-wound Skin Appearance Dry/Scaly ) -Color (Martha-wound Skin Appearance) Erythema -Temperature (Martha-wound Skin No Abnormality Appearance) (Pt Warm) -Tenderness on Palpation (Martha-wound No Skin Appearance) -Ulcer Cleansing Wound Cleanser -Foul Odor after Cleansing No -Anesthetic Used 4% Lidocaine Solution #13 R Med Heel -Combined with other wound No -Current Size (cm) - Length 4.9 -Current Size (cm) - Width 6.5 -Current Size (cm) - Depth 0.1 -Total Square Cm 31.85 -Photo Taken No -Epithelialization None Present -Tunneling No -Undermining/Tunneling No -Exudate Amt Large (67-100%) -Exudate Type Serosanguineous -Granulation Amt None Present (0 %) -Slough/Fibrin Yes -Necrosis Amt Large (67-100%) -Necrotic Tissue Type Eschar -Structure Exposed N/A -Texture (Martha-wound Skin Appearance) Callus Scarring -Moisture (Martha-wound Skin Appearance Maceration ) Dry/Scaly -Color (Martha-wound Skin Appearance) Erythema -Temperature (Martha-wound Skin No Abnormality Appearance) (Pt Warm) -Tenderness on Palpation (Martha-wound No Skin Appearance) -Ulcer Cleansing Wound Cleanser -Foul Odor after Cleansing No -Anesthetic Used 4% Lidocaine Solution #12 R LE Cluster -Combined with other wound No -Current Size (cm) - Length 12 -Current Size (cm) - Width 16.7 -Current Size (cm) - Depth 0.1 -Total Square Cm 200.4 -Photo Taken No -Epithelialization Small 1-33% -Tunneling No -Undermining/Tunneling No -Exudate Amt Medium (34-66%) -Exudate Type Serosanguineous -Wound Margin Distinct, Outline Attached -Granulation Amt Large (67-100%) -Granulation Quality Red -Slough/Fibrin No -Necrosis Amt None Present (0 %) -Structure Exposed None/Limited to Skin Breakdown -Texture (Martha-wound Skin Appearance) Scarring -Moisture (Martha-wound Skin Appearance Maceration ) Dry/Scaly -Color (Martha-wound Skin Appearance) Assessed Erythema -Temperature (Martha-wound Skin No Abnormality Appearance) (Pt Warm) -Tenderness on Palpation (Martha-wound No Skin Appearance) -Ulcer Cleansing Wound Cleanser -Foul Odor after Cleansing No -Anesthetic Used 4% Lidocaine Solution #3 Right Foot-Toes w/Metatarsal Head circumfrential -Combined with other wound No -Current Size (cm) - Length 11 -Current Size (cm) - Width 8.3 -Current Size (cm) - Depth 0.1 -Total Square Cm 91.3 -Photo Taken No -Epithelialization None Present -Tunneling No -Undermining/Tunneling No -Exudate Amt Large (67-100%) -Exudate Type Serosanguineous -Wound Margin Distinct, Outline Attached -Granulation Amt Large (67-100%) -Granulation Quality Red -Slough/Fibrin No -Necrosis Amt None Present (0 %) -Structure Exposed None/Limited to Skin Breakdown -Texture (Martha-wound Skin Appearance) Scarring -Moisture (Martha-wound Skin Appearance Maceration ) Dry/Scaly -Color (Martha-wound Skin Appearance) Erythema -Temperature (Martha-wound Skin No Abnormality Appearance) (Pt Warm) -Tenderness on Palpation (Martha-wound No Skin Appearance) -Ulcer Cleansing Wound Cleanser -Foul Odor after Cleansing No -Anesthetic Used 4% Lidocaine Solution #1 BTK Left Stump cluster -Combined with other wound No -Current Size (cm) - Length 0 -Current Size (cm) - Width 0 -Current Size (cm) - Depth 0 -Total Square Cm 0 -Epithelialization Large 67-100% [Edema Assessment] -Lower Limb Edema Present Yes -Right Calf (cm) 41.9 -Right Ankle (cm) 30.4 -Left Calf (cm) 36.6 WC - Nurse 2 - General Ulcer CM Notes Start: 07/09/17 09:38 Freq: Status: Active Protocol: Activity Type Activity Date Activity User E-Sign Co-Sign Detail Recorded Client Recorded Date Recorded By Document 07/21/17 10:26 [facility] [id number] 07/21/17 10:40 [facility] 07/21/17 10:26 Wound Center Nurse 2 [Procedure/Treatment] #14- LT POPLITEAL FOLD: DID NOT DEBRIDE -Time 10:27 -Correct Patient Yes -Correct Side, Site, Position Yes -Correct Procedure Yes -Procedure Performed Yes -Type of Procedure Debridement -Clinical Debridement Subcutaneous -Post Debridement Size (cm) - Length DID NOT DEBRIDE -Post Debridement Size (cm) - Width DID NOT DEBRIDE -Total Square Cm DID NOT DEBRIDE -Wound/Ulcer Outcome Not Healed -Ulcer Cleansing Rinsed/ Irrigated with Saline -Foul Odor after Cleansing No -Bioengineered Tissue No -Bleeding Controlled with Pressure -Treatment Response Procedure Tolerated Well #13 R Med Heel -Time 10:28 -Correct Patient Yes -Correct Side, Site, Position Yes -Correct Procedure Yes -Procedure Performed Yes -Type of Procedure Debridement -Clinical Debridement Subcutaneous -Post Debridement Size (cm) - Length 5.0 -Post Debridement Size (cm) - Width 6.5 -Post Debridement Size (cm) - Depth 0.1 -Total Square Cm 32.50 -Wound/Ulcer Outcome Not Healed -Ulcer Cleansing Rinsed/ Irrigated with Saline -Foul Odor after Cleansing No -Bioengineered Tissue No -Bleeding Controlled with Pressure -Treatment Response Procedure Tolerated Well #12 R LE Cluster -Time 10:28 -Correct Patient Yes -Correct Side, Site, Position Yes -Correct Procedure Yes -Procedure Performed Yes -Type of Procedure Debridement -Clinical Debridement Subcutaneous -Post Debridement Size (cm) - Length 12.1 -Post Debridement Size (cm) - Width 16.8 -Post Debridement Size (cm) - Depth 0.1 -Total Square Cm (10% debrided) 203.28 (10 sq cm debrided) -Wound/Ulcer Outcome Not Healed -Ulcer Cleansing Rinsed/ Irrigated with Saline -Foul Odor after Cleansing No -Bioengineered Tissue No -Bleeding Controlled with Pressure -Treatment Response Procedure Tolerated Well #3 Right Foot-Toes w/Metatarsal Head circumfrential -Time 10:28 -Correct Patient Yes -Correct Side, Site, Position Yes -Correct Procedure Yes -Procedure Performed Yes -Type of Procedure Debridement -Clinical Debridement Subcutaneous -Post Debridement Size (cm) - Length 11.1 -Post Debridement Size (cm) - Width 8.4 -Post Debridement Size (cm) - Depth 0.1 -Total Square Cm 93.24 -Wound/Ulcer Outcome Not Healed -Ulcer Cleansing Rinsed/ Irrigated with Saline -Foul Odor after Cleansing No -Bioengineered Tissue No -Bleeding Controlled with Pressure -Treatment Response Procedure Tolerated Well #1 BTK Left Stump cluster -Correct Patient No -Correct Side, Site, Position No -Correct Procedure No -Procedure Performed No -Post Debridement Size (cm) - Length 0.1 -Post Debridement Size (cm) - Width 0.1 -Post Debridement Size (cm) - Depth 0.1 -Total Square Cm 0.01 -Wound/Ulcer Outcome Not Healed -Treatment Response Procedure Tolerated Well [See Physician Procedure note for Specifics] Pain Scale: 0-10 Numeric [Pain] -Is Patient Pain Free? Yes Musculoskeletal: No Tenderness to Palpation of Joints or Extremities, Muscle Wasting, - - Left below-knee amputation Lymphatic: - - Lymphedema Neurological: - - Lack of epicritic sensation to light touch bilateral lower extremities Psych/Mental Status: Normal Affect, Appropriate Debridement Note Post-Debridement Measurements/Treatment WC - Nurse 2 - General Ulcer CM Notes Start: 07/09/17 09:38 Freq: Status: Active Protocol: Activity Type Activity Date Activity User E-Sign Co-Sign Detail Recorded Client Recorded Date Recorded By Document 07/15/17 10:58 [facility] [id number] 07/15/17 11:24 DV Document 07/21/17 10:26 [facility] [id number] 07/21/17 10:40 07/15/17 07/21/17 10:58 10:26 Wound Center Nurse 2 #14- LT POPLITEAL FOLD -Time 10:27 -Correct Patient Yes -Correct Side, Site, Position Yes -Correct Procedure Yes -Procedure Performed Yes -Type of Procedure Debridement -Clinical Debridement Subcutaneous -Post Debridement Size (cm) - Length 0.7 -Post Debridement Size (cm) - Width 1.0 -Post Debridement Size (cm) - Depth 0.1 -Total Square Cm 0.70 -Wound/Ulcer Outcome Not Healed -Ulcer Cleansing Rinsed/ Irrigated with Saline -Foul Odor after Cleansing No -Bioengineered Tissue No -Bleeding Controlled with Pressure -Treatment Response Procedure Tolerated Well #13 R Med Heel -Time 11:05 10:28 -Correct Patient Yes Yes -Correct Side, Site, Position Yes Yes -Correct Procedure Yes Yes -Procedure Performed Yes Yes -Type of Procedure Debridement Debridement -Clinical Debridement Subcutaneous Subcutaneous -Post Debridement Size (cm) - Length 2.5 5.0 -Post Debridement Size (cm) - Width 4.0 6.5 -Post Debridement Size (cm) - Depth 0.2 0.1 -Total Square Cm 10.00 32.50 -Wound/Ulcer Outcome Amputation Not Healed -Ulcer Cleansing Rinsed/ Rinsed/ Irrigated with Irrigated with Saline Saline -Foul Odor after Cleansing No No -Bioengineered Tissue No No -Bleeding Controlled with Pressure Pressure -Treatment Response Procedure Procedure Tolerated Well Tolerated Well #12 R LE Cluster -Time 11:05 10:28 -Correct Patient Yes Yes -Correct Side, Site, Position Yes Yes -Correct Procedure Yes Yes -Procedure Performed Yes Yes -Type of Procedure Debridement Debridement -Clinical Debridement Subcutaneous Subcutaneous -Post Debridement Size (cm) - Length 14.0 12.1 -Post Debridement Size (cm) - Width 38.0 16.8 -Post Debridement Size (cm) - Depth 0.1 0.1 -Total Square Cm 532.00 203.28 -Wound/Ulcer Outcome Not Healed Not Healed -Ulcer Cleansing Rinsed/ Rinsed/ Irrigated with Irrigated with Saline Saline -Foul Odor after Cleansing No No -Bioengineered Tissue No No -Bleeding Controlled with Pressure Pressure -Treatment Response Procedure Procedure Tolerated Well Tolerated Well #11 RIGHT PROXIMAL LE -Correct Patient Yes -Correct Side, Site, Position Yes -Correct Procedure Yes -Procedure Performed Yes -Type of Procedure Debridement -Clinical Debridement Subcutaneous -Wound/Ulcer Outcome Not Healed -Ulcer Cleansing Rinsed/ Irrigated with Saline -Foul Odor after Cleansing No -Bioengineered Tissue No -Bleeding Controlled with Pressure -Treatment Response Procedure Tolerated Well #9 RIGHT PROXIMAL ANTERIOR LE -Time 11:03 -Correct Patient Yes -Correct Side, Site, Position Yes -Correct Procedure Yes -Procedure Performed Yes -Type of Procedure Debridement -Clinical Debridement Subcutaneous -Wound/Ulcer Outcome Not Healed -Ulcer Cleansing Rinsed/ Irrigated with Saline -Foul Odor after Cleansing No -Bioengineered Tissue No -Bleeding Controlled with Pressure -Treatment Response Procedure Tolerated Well #6 R Med Lower Leg -Time 11:03 -Correct Patient Yes -Correct Side, Site, Position Yes -Correct Procedure Yes -Procedure Performed Yes -Type of Procedure Debridement -Clinical Debridement Subcutaneous -Wound/Ulcer Outcome Not Healed -Ulcer Cleansing Rinsed/ Irrigated with Saline -Foul Odor after Cleansing No -Bioengineered Tissue No -Bleeding Controlled with Pressure -Treatment Response Procedure Tolerated Well #3 Right Foot-Toes w/Metatarsal Head circumfrential -Time 11:11 10:28 -Correct Patient Yes Yes -Correct Side, Site, Position Yes Yes -Correct Procedure Yes Yes -Procedure Performed Yes Yes -Type of Procedure Debridement Debridement -Clinical Debridement Subcutaneous Subcutaneous -Post Debridement Size (cm) - Length 4.0 11.1 -Post Debridement Size (cm) - Width 24.0 8.4 -Post Debridement Size (cm) - Depth 0.2 0.1 -Total Square Cm 96.00 93.24 -Wound/Ulcer Outcome Not Healed Not Healed -Ulcer Cleansing Rinsed/ Rinsed/ Irrigated with Irrigated with Saline Saline -Foul Odor after Cleansing No No -Bioengineered Tissue No No -Bleeding Controlled with Pressure Pressure -Treatment Response Procedure Procedure Tolerated Well Tolerated Well #1 BTK Left Stump cluster -Time 10:59 -Correct Patient Yes No -Correct Side, Site, Position Yes No -Correct Procedure Yes No -Procedure Performed Yes No -Type of Procedure Debridement -Clinical Debridement Subcutaneous -Post Debridement Size (cm) - Length 35.5 0.1 -Post Debridement Size (cm) - Width 10.0 0.1 -Post Debridement Size (cm) - Depth 0.1 0.1 -Total Square Cm 355.00 0.01 -Wound/Ulcer Outcome Not Healed Not Healed -Ulcer Cleansing Rinsed/ Irrigated with Saline -Foul Odor after Cleansing No -Bioengineered Tissue No -Bleeding Controlled with Pressure -Treatment Response Procedure Procedure Tolerated Well Tolerated Well Pain Scale: 0-10 Numeric Is Patient Pain Free? Yes Yes Wound debrided: foot Wound Grade/Stage: Grade 1 Type of Debridement: Excisional debridement Anesthesia Used: 4% Lidocaine Solution Depth: in the subcutaneous layer Percentage of wound debrided: 100 Instrument Used: #15 blade Tissue Removed: Fibrous, devitalized subcutaneous, biofilm, slough Severity: Fat Layer Exposed Bleeding Controlled with: Pressure Patient tolerated procedure well - Additional Wound Wound debrided: Heel Laterality: Right Wound Grade/Stage: Grade 1 with infection Type of Debridement: Excisional debridement Anesthesia Used: 4% Lidocaine Solution Depth: in the subcutaneous layer Percentage of wound debrided: 100 Instrument Used: #15 blade, Forceps Tissue Removed: Fibrous, devitalized subcutaneous, biofilm, slough, eschar Severity: Fat Layer Exposed Amount of bleeding with debridement: Mild Bleeding Controlled with: Pressure, Gel Foam Patient tolerated procedure: Patient tolerated procedure well - Additional Wound Wound debrided: Leg Laterality: Right Wound Grade/Stage: Grade 1 Type of Debridement: Excisional debridement Anesthesia Used: 4% Lidocaine Solution Depth: in the subcutaneous layer Percentage of wound debrided: 100 Instrument Used: #15 blade Tissue Removed: Fibrous, devitalized subcutaneous, biofilm, slough Severity: Fat Layer Exposed Amount of bleeding with debridement: Mild Bleeding Controlled with: Pressure Patient tolerated procedure: Patient tolerated procedure well - Additional Wound Wound debrided: Blister Laterality: Left Wound Grade/Stage: Drained with 15 blade serous fluid only. Skin left with biologic barrier Assessment/Plan Active Problems BKA stump complication (Chronic) Cellulitis of lower extremity (Acute) Skin tear of right lower leg without complication (Acute) Blister (Acute) Type 2 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with diabetic polyneuropathy (Chronic) Ulcer of right lower extremity with fat layer exposed (Chronic) Type 2 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with diabetic polyneuropathy (Chronic) Chronic ulcer of right foot with fat layer exposed (Chronic) Delayed wound healing (Chronic) Malnutrition (Chronic) Nonhealing skin ulcer (Acute) Venous insufficiency (Chronic) Lymphedema (Chronic) Assessment: ulcers right foot - subcutaneous tissue exposed. Ulcers right leg -subcutaneous tissue exposed. ulcer left thigh. infection right heel. blister left leg. Ulcer Left Stump. Lymphedema. Chronic lower extremity edema and venous insufficiency. Morbid obesity. Type 2 diabetes uncontrolled with peripheral neuropathy. CKD. Hypertension. Left below-knee amputation. Malnutrition. Delayed wound healing. Nonadherence to treatment plan Plan: I reviewed and discussed his treatment course and plan. Debridement was performed as noted in the clinical nursing panel. Right Foot ulcer appears significantly macereated with infection.Culture also taken last week from the forefoot and I recommended ciprofloxacin urine and Omnicef. New cultures were obtained from the debrided heel site today including MRSA, aerobic, anaerobic, acid-fast, fungal. Infectious disease evaluated the patient today which is greatly appreciated and recommended continuation of the antibiotics. An x-ray was ordered and this does not demonstrate any acute fracture or dislocation, soft tissue emphysema, foreign body, or other osseous destruction adjacent to the heel ulcer site. An MRI will be ordered. He understands if his condition worsens admission with surgical debridement and IV antibiotics will be considered. Aggressive local wound care was performed today as noted above. Updated labs were ordered it is noted he is a white blood cell count of 8.7, sedimentation rate of 57, and C-reactive protein of 38. These trends will be followed. Apply jg to all wounds with adaptic covering with the exception of Betadine soaked gauze to the right heel. Standard drug and alcohol treatment specialist was applied the right lower extremity so this will permit daily dressing changes. Continue 3M 2L wraps as previously recommended to the left lower extremity. The left lower extremity blister was drained with a 15 blade after alcohol preparation. He tolerated this well there are no signs of infection or deep tissue involvement noted. His new thigh ulcer is noted and does not appear to be infected. This is not currently my scope of practice and serial debridement will be considered with a referral to an additional wound care physician once he completes the acute phase of his infection management. Offloading of recomended especially of right heel. Optimal blood sugar control was recommended. Elevate lower extremity when sitted and in bed. Continue increased protein intake and supplements. Follow up in [address] Lux.
[2017-07-21 12:46] LABS: Hematocrit 31.5 % (40-54); Hemoglobin 10.1 g/dl (13.0-16.5); Mean Corp Hgb Conc 32.1 g/gl (32-36); Mean Corpuscular Hgb 28.5 pg (27.0-32.0); Mean Corpuscular Volume 88.7 fL (80-94); Mean Platelet Vol. 10.6 fl (6.2-12.0); Platelet Count 193 K/mm3 (150-450); RBC Distribution Width CV 14.8 % (11.6-14.6); RBC Distribution Width SD 46.5 fl (35.1-43.9); Red Blood Count 3.55 M/mm3 (4.6-6.2); Scan Indicated on CBC? Y/N NO; White Blood Count 8.7 K/mm3 (4.4-11.0)
[2017-07-21 12:58] LABS: Erythrocyte Sedimentation Rate 57 mm/hr (0-20)
[2017-07-21 13:28] LABS: Anion Gap 7 (5-15); BUN 48 mg/dL (7-18); BUN/Creat Ratio 22.7 RATIO (10-20); Calcium,Total 8.5 mg/dL (8.5-10.1); Chloride 100 mmol/L (98-107); Creatinine, Serum 2.11 mg/dL (0.70-1.30); EST Glomerular Filtration Rate 34 mL/min (>60); Est Glom Filt Rate - Afr Amer 42 mL/min (>60); Glucose 349 mg/dL (74-106); Potassium 5.1 mmol/L (3.5-5.1); Sodium Level 136 mmol/L (136-145)
[2017-07-28 09:44] VITALS: BP 146/68; PULSE 81; RESP 16; TEMP 36.1; BMI 39.9
--- NOTE | 2017-07-28 11:19 | PN.PCM_ITS ---
(1) BKA stump complication Status: Chronic Current Visit: Yes Code(s): T87.9 - Unspecified complications of amputation stump (2) Cellulitis of lower extremity Status: Acute Current Visit: Yes Qualifiers: Laterality: right Qualified Code(s): L03.115 - Cellulitis of right lower limb Code(s): L03.119 - Cellulitis of unspecified part of limb (3) Blister Status: Acute Current Visit: Yes Code(s): T14.8XXA - Other injury of unspecified body region, initial encounter (4) Type 2 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with diabetic polyneuropathy Status: Chronic Current Visit: Yes Code(s): E11.42 - Type 2 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with diabetic polyneuropathy (5) Ulcer of right lower extremity with fat layer exposed Status: Chronic Current Visit: Yes Code(s): L97.912 - Non-pressure chronic ulcer of unspecified part of right lower leg with fat layer exposed (6) Chronic ulcer of right foot with fat layer exposed Status: Chronic Current Visit: Yes Code(s): L97.512 - Non-pressure chronic ulcer of other part of right foot with fat layer exposed (7) Delayed wound healing Status: Chronic Current Visit: Yes Code(s): T14.8 - Other injury of unspecified body region (8) Malnutrition Status: Chronic Current Visit: Yes Code(s): E46 - Unspecified protein- calorie malnutrition (9) Venous insufficiency Status: Chronic Current Visit: Yes (10) Lymphedema Status: Chronic Current Visit: Yes Code(s): I89.0 - Lymphedema, not elsewhere classified Type of Wound Date of Service: 07/28/17 Chief Complaint: Right foot ulcer. New blisters to left leg with new wound. infection right heel ulcer History of Wound: 57-year-old white male returns to clinic for follow-up of bilateral leg ulcers and right foot ulcers. He denies fever, chill, nausea, vomiting, loss of appetite. He has continued lower extremity swelling. Uses compression pump once daily this past week. HE started his antibiotics as adviced (omnicef and cipro). He saw infectious disease who confirmed the antibiotic choice is appropriate. He obtained xrays and labs. He did not get the MRI yet. His odor has resolved. He denies new trauma. Progress of Wound: stabilized right foot status. Left below-knee amputation stump site blister. Right leg ulcer and left thigh ulcer stable - Physical Exam Vital Signs Temp Pulse Resp BP 96.9 F L 81 16 146/68 H 07/28/17 09:44 07/28/17 09:44 07/28/17 09:44 07/28/17 09:44 General: Alert, Oriented x3, Cooperative Extremities: No cyanosis, Capillary Refill Less than 3 Seconds - right foot, No Calf Tenderness - negative suzanne and bean right, Diminished Peripheral Pulses, Edema, Peripheral Pulses Normal Skin: Ulcer/ Wound - odor and erythema have resolved. eschar now to the right heel. There is no purulence on expression or crepitus on palpation. This is moist at the posterior aspect and upon debridement there is no exposed bone however the fat layer is exposed and I am concerned of deeper involvement. He is right leg cluster ulcers. And the right toe ulcers are granular with some peripheral epithelialization and this is also a cluster. No localized infection noted to the left thigh or leg., - - The skin is atrophic with chronic edema changes. Bilateral Wound Measurements and Assessment WC - Nurse 1 - General Ulcer Measurement Start: 07/09/17 09:38 Freq: Status: Active Protocol: Activity Type Activity Date Activity User E-Sign Co-Sign Detail Recorded Client Recorded Date Recorded By Document 07/28/17 09:44 MW [id number] 07/28/17 10:03 MW 07/28/17 09:44 Wound Center Nurse 1 [Ulcer Assessment] #14- LT POPLITEAL FOLD -Combined with other wound No -Current Size (cm) - Length 1.5 -Current Size (cm) - Width 1.5 -Current Size (cm) - Depth 0.1 -Total Square Cm 2.25 -Photo Taken No -Epithelialization None Present -Tunneling No -Undermining/Tunneling No -Circular Undermining No -Exudate Amt None Present (0 %) -Wound Margin Flat & Intact -Granulation Amt None Present (0 %) -Granulation Quality N/A -Slough/Fibrin Yes -Necrosis Amt Large (67-100%) -Necrotic Tissue Type Adherent Slough -Structure Exposed N/A -Texture (Martha-wound Skin Appearance) Assessed Localized Edema -Moisture (Martha-wound Skin Appearance Assessed ) Dry/Scaly -Color (Martha-wound Skin Appearance) Assessed Hemosiderin Staining -Temperature (Martha-wound Skin No Abnormality Appearance) (Pt Warm) -Tenderness on Palpation (Martha-wound No Skin Appearance) -Ulcer Cleansing soap and water -Foul Odor after Cleansing No -Anesthetic Used 4% Lidocaine Solution #13 R Med Heel -Combined with other wound No -Current Size (cm) - Length 5.7 -Current Size (cm) - Width 7.0 -Current Size (cm) - Depth 0.2 -Total Square Cm 39.90 -Photo Taken No -Epithelialization None Present -Tunneling No -Undermining/Tunneling No -Circular Undermining No -Exudate Amt Medium (34-66%) -Exudate Type Serosanguineous -Wound Margin Distinct, Outline Attached -Granulation Amt Small (1-33%) -Granulation Quality Red -Slough/Fibrin Yes -Necrosis Amt Large (67-100%) -Necrotic Tissue Type Adherent Slough -Structure Exposed N/A -Texture (Martha-wound Skin Appearance) Assessed Callus Localized Edema -Moisture (Martha-wound Skin Appearance Assessed ) Dry/Scaly -Color (Martha-wound Skin Appearance) Assessed Erythema -Temperature (Martha-wound Skin No Abnormality Appearance) (Pt Warm) -Tenderness on Palpation (Martha-wound No Skin Appearance) -Ulcer Cleansing soap and water -Foul Odor after Cleansing No -Anesthetic Used 4% Lidocaine Solution #12 R LE Cluster -Combined with other wound No -Current Size (cm) - Length 10.5 -Current Size (cm) - Width 17.5 -Current Size (cm) - Depth 0.1 -Total Square Cm 183.75 -Photo Taken No -Epithelialization None Present -Tunneling No -Undermining/Tunneling No -Circular Undermining No -Exudate Amt Medium (34-66%) -Exudate Type Serosanguineous -Wound Margin Flat & Intact -Granulation Amt Medium (34-66%) -Granulation Quality Red -Slough/Fibrin Yes -Necrosis Amt Small (1-33%) -Necrotic Tissue Type Adherent Slough -Structure Exposed N/A -Texture (Martha-wound Skin Appearance) Assessed Localized Edema -Moisture (Martha-wound Skin Appearance Assessed ) Weeping Dry/Scaly -Color (Martha-wound Skin Appearance) Assessed Rubor -Temperature (Martha-wound Skin No Abnormality Appearance) (Pt Warm) -Tenderness on Palpation (Martha-wound No Skin Appearance) -Ulcer Cleansing soap and water -Foul Odor after Cleansing No -Anesthetic Used 4% Lidocaine Solution #3 Right Foot-Toes w/Metatarsal Head circumfrential -Combined with other wound No -Current Size (cm) - Length 11.0 -Current Size (cm) - Width 7.5 -Current Size (cm) - Depth 0.1 -Total Square Cm 82.50 -Photo Taken No -Epithelialization None Present -Tunneling No -Undermining/Tunneling No -Circular Undermining No -Exudate Amt Medium (34-66%) -Exudate Type Serosanguineous -Wound Margin Distinct, Outline Attached -Granulation Amt Small (1-33%) -Granulation Quality Scott -Slough/Fibrin Yes -Necrosis Amt Large (67-100%) -Structure Exposed N/A -Texture (Martha-wound Skin Appearance) Not Assessed Localized Edema -Moisture (Martha-wound Skin Appearance Assessed ) Maceration -Color (Martha-wound Skin Appearance) Assessed Rubor -Temperature (Martha-wound Skin No Abnormality Appearance) (Pt Warm) -Tenderness on Palpation (Martha-wound No Skin Appearance) -Ulcer Cleansing soap and water -Foul Odor after Cleansing No -Anesthetic Used 4% Lidocaine Solution [Edema Assessment] -Lower Limb Edema Present Yes -Right Calf (cm) 49.6 -Right Ankle (cm) 29.5 -Left Calf (cm) 37.0 WC - Nurse 2 - General Ulcer CM Notes Start: 07/09/17 09:38 Freq: Status: Active Protocol: Activity Type Activity Date Activity User E-Sign Co-Sign Detail Recorded Client Recorded Date Recorded By Document 07/28/17 10:39 [id number] 07/28/17 10:41 07/28/17 10:39 Wound Center Nurse 2 [Procedure/Treatment] #14- LT POPLITEAL FOLD -Time 10:39 -Correct Patient Yes -Correct Side, Site, Position Yes -Correct Procedure Yes -Procedure Performed Yes -Type of Procedure Debridement -Clinical Debridement Subcutaneous -Post Debridement Size (cm) - Length not debrided -Post Debridement Size (cm) - Width not debrided -Post Debridement Size (cm) - Depth not debrided -Total Square Cm not debrided -Wound/Ulcer Outcome Not Healed -Ulcer Cleansing Rinsed/ Irrigated with Saline -Foul Odor after Cleansing No -Bioengineered Tissue No -Topical Lidocaine (%) 4 -Bleeding Controlled with Pressure -Treatment Response Procedure Tolerated Well #13 R Med Heel -Time 10:39 -Correct Patient Yes -Correct Side, Site, Position Yes -Correct Procedure Yes -Procedure Performed Yes -Type of Procedure Debridement -Clinical Debridement Subcutaneous -Post Debridement Size (cm) - Length 5.8 -Post Debridement Size (cm) - Width 7.1 -Post Debridement Size (cm) - Depth 0.2 -Total Square Cm 41.18 -Wound/Ulcer Outcome Not Healed -Ulcer Cleansing Rinsed/ Irrigated with Saline -Foul Odor after Cleansing No -Bioengineered Tissue No -Topical Lidocaine (%) 4 -Bleeding Controlled with Pressure -Treatment Response Procedure Tolerated Well #12 R LE Cluster -Time 10:40 -Correct Patient Yes -Correct Side, Site, Position Yes -Correct Procedure Yes -Procedure Performed Yes -Type of Procedure Debridement -Clinical Debridement Subcutaneous -Post Debridement Size (cm) - Length 10.6 -Post Debridement Size (cm) - Width 17.6 -Post Debridement Size (cm) - Depth 0.1 -Total Square Cm 50% debrided 186.56 (50% is 93.28) -Wound/Ulcer Outcome Not Healed -Ulcer Cleansing Rinsed/ Irrigated with Saline -Foul Odor after Cleansing No -Bioengineered Tissue No -Topical Lidocaine (%) 4 -Bleeding Controlled with Pressure -Treatment Response Procedure Tolerated Well #3 Right Foot-Toes w/Metatarsal Head circumfrential -Time 10:40 -Correct Patient Yes -Correct Side, Site, Position Yes -Correct Procedure Yes -Procedure Performed Yes -Type of Procedure Debridement -Clinical Debridement Subcutaneous -Post Debridement Size (cm) - Length 11.1 -Post Debridement Size (cm) - Width 7.6 -Post Debridement Size (cm) - Depth 0.1 -Total Square Cm 50% debrided 84.36 (50%: 42.18) -Wound/Ulcer Outcome Not Healed -Ulcer Cleansing Rinsed/ Irrigated with Saline -Foul Odor after Cleansing No -Bioengineered Tissue No -Topical Lidocaine (%) 4 -Bleeding Controlled with Pressure -Treatment Response Procedure Tolerated Well [See Physician Procedure note for Specifics] Pain Scale: 0-10 Numeric [Pain] -Is Patient Pain Free? Yes Musculoskeletal: No Tenderness to Palpation of Joints or Extremities, Muscle Wasting, - - Left below-knee amputation. Right lymphedema changes noted Neurological: - - Lack of epicritic sensation light touch Psych/Mental Status: Normal Affect, Appropriate Debridement Note Post-Debridement Measurements/Treatment WC - Nurse 2 - General Ulcer CM Notes Start: 07/09/17 09:38 Freq: Status: Active Protocol: Activity Type Activity Date Activity User E-Sign Co-Sign Detail Recorded Client Recorded Date Recorded By Document 07/15/17 10:58 DV [id number] 07/15/17 11:24 DV Document 07/21/17 10:26 JF [id number] 07/21/17 10:40 JF Document 07/28/17 10:39 TM [id number] 07/28/17 10:41 TM 07/15/17 07/21/17 07/28/17 10:58 10:26 10:39 Wound Center Nurse 2 #14- LT POPLITEAL FOLD -Time 10:27 10:39 -Correct Patient No Yes -Correct Side, Site, Position No Yes -Correct Procedure No Yes -Procedure Performed No Yes -Type of Procedure Debridement -Clinical Debridement Subcutaneous -Post Debridement Size (cm) - Length 1.6 -Post Debridement Size (cm) - Width 1.6 -Post Debridement Size (cm) - Depth 0.1 -Total Square Cm 2.56 -Wound/Ulcer Outcome Not Healed Not Healed -Ulcer Cleansing Rinsed/ Rinsed/ Irrigated with Irrigated with Saline Saline -Foul Odor after Cleansing No No -Bioengineered Tissue No No -Topical Lidocaine (%) 4 -Bleeding Controlled with Pressure Pressure -Treatment Response Procedure Procedure Tolerated Well Tolerated Well #13 R Med Heel -Time 11:05 10:28 10:39 -Correct Patient Yes Yes Yes -Correct Side, Site, Position Yes Yes Yes -Correct Procedure Yes Yes Yes -Procedure Performed Yes Yes Yes -Type of Procedure Debridement Debridement Debridement -Clinical Debridement Subcutaneous Subcutaneous Subcutaneous -Post Debridement Size (cm) - Length 2.5 5.0 5.8 -Post Debridement Size (cm) - Width 4.0 6.5 7.1 -Post Debridement Size (cm) - Depth 0.2 0.1 0.2 -Total Square Cm 10.00 32.50 41.18 -Wound/Ulcer Outcome Amputation Not Healed Not Healed -Ulcer Cleansing Rinsed/ Rinsed/ Rinsed/ Irrigated with Irrigated with Irrigated with Saline Saline Saline -Foul Odor after Cleansing No No No -Bioengineered Tissue No No No -Topical Lidocaine (%) 4 -Bleeding Controlled with Pressure Pressure Pressure -Treatment Response Procedure Procedure Procedure Tolerated Well Tolerated Well Tolerated Well #12 R LE Cluster -Time 11:05 10:28 10:40 -Correct Patient Yes Yes Yes -Correct Side, Site, Position Yes Yes Yes -Correct Procedure Yes Yes Yes -Procedure Performed Yes Yes Yes -Type of Procedure Debridement Debridement Debridement -Clinical Debridement Subcutaneous Subcutaneous Subcutaneous -Post Debridement Size (cm) - Length 14.0 12.1 10.6 -Post Debridement Size (cm) - Width 38.0 16.8 17.6 -Post Debridement Size (cm) - Depth 0.1 0.1 0.1 -Total Square Cm 532.00 203.28 186.56 -Wound/Ulcer Outcome Not Healed Not Healed Not Healed -Ulcer Cleansing Rinsed/ Rinsed/ Rinsed/ Irrigated with Irrigated with Irrigated with Saline Saline Saline -Foul Odor after Cleansing No No No -Bioengineered Tissue No No No -Topical Lidocaine (%) 4 -Bleeding Controlled with Pressure Pressure Pressure -Treatment Response Procedure Procedure Procedure Tolerated Well Tolerated Well Tolerated Well #11 RIGHT PROXIMAL LE -Correct Patient Yes -Correct Side, Site, Position Yes -Correct Procedure Yes -Procedure Performed Yes -Type of Procedure Debridement -Clinical Debridement Subcutaneous -Wound/Ulcer Outcome Not Healed -Ulcer Cleansing Rinsed/ Irrigated with Saline -Foul Odor after Cleansing No -Bioengineered Tissue No -Bleeding Controlled with Pressure -Treatment Response Procedure Tolerated Well #9 RIGHT PROXIMAL ANTERIOR LE -Time 11:03 -Correct Patient Yes -Correct Side, Site, Position Yes -Correct Procedure Yes -Procedure Performed Yes -Type of Procedure Debridement -Clinical Debridement Subcutaneous -Wound/Ulcer Outcome Not Healed -Ulcer Cleansing Rinsed/ Irrigated with Saline -Foul Odor after Cleansing No -Bioengineered Tissue No -Bleeding Controlled with Pressure -Treatment Response Procedure Tolerated Well #6 R Med Lower Leg -Time 11:03 -Correct Patient Yes -Correct Side, Site, Position Yes -Correct Procedure Yes -Procedure Performed Yes -Type of Procedure Debridement -Clinical Debridement Subcutaneous -Wound/Ulcer Outcome Not Healed -Ulcer Cleansing Rinsed/ Irrigated with Saline -Foul Odor after Cleansing No -Bioengineered Tissue No -Bleeding Controlled with Pressure -Treatment Response Procedure Tolerated Well #3 Right Foot-Toes w/Metatarsal Head circumfrential -Time 11:11 10:28 10:40 -Correct Patient Yes Yes Yes -Correct Side, Site, Position Yes Yes Yes -Correct Procedure Yes Yes Yes -Procedure Performed Yes Yes Yes -Type of Procedure Debridement Debridement Debridement -Clinical Debridement Subcutaneous Subcutaneous Subcutaneous -Post Debridement Size (cm) - Length 4.0 11.1 11.1 -Post Debridement Size (cm) - Width 24.0 8.4 7.6 -Post Debridement Size (cm) - Depth 0.2 0.1 0.1 -Total Square Cm 96.00 93.24 84.36 -Wound/Ulcer Outcome Not Healed Not Healed Not Healed -Ulcer Cleansing Rinsed/ Rinsed/ Rinsed/ Irrigated with Irrigated with Irrigated with Saline Saline Saline -Foul Odor after Cleansing No No No -Bioengineered Tissue No No No -Topical Lidocaine (%) 4 -Bleeding Controlled with Pressure Pressure Pressure -Treatment Response Procedure Procedure Procedure Tolerated Well Tolerated Well Tolerated Well #1 BTK Left Stump cluster -Time 10:59 -Correct Patient Yes No -Correct Side, Site, Position Yes No -Correct Procedure Yes No -Procedure Performed Yes No -Type of Procedure Debridement -Clinical Debridement Subcutaneous -Post Debridement Size (cm) - Length 35.5 0.1 -Post Debridement Size (cm) - Width 10.0 0.1 -Post Debridement Size (cm) - Depth 0.1 0.1 -Total Square Cm 355.00 0.01 -Wound/Ulcer Outcome Not Healed Not Healed -Ulcer Cleansing Rinsed/ Irrigated with Saline -Foul Odor after Cleansing No -Bioengineered Tissue No -Bleeding Controlled with Pressure -Treatment Response Procedure Procedure Tolerated Well Tolerated Well Pain Scale: 0-10 Numeric Is Patient Pain Free? Yes Yes Yes Wound debrided: leg cluster Laterality: Right Wound Grade/Stage: grade 1 Type of Debridement: Excisional debridement Anesthesia Used: 4% Lidocaine Solution Depth: in the subcutaneous layer Percentage of wound debrided: 50 Instrument Used: #15 blade Tissue Removed: fibrous, devitalized subcutaneous, biofilm, slough Severity: Fat Layer Exposed Amount of bleeding with debridement: Mild Bleeding Controlled with: Pressure Patient tolerated procedure well - Additional Wound Wound debrided: heel Laterality: Right Wound Grade/Stage: grade 3 Type of Debridement: Excisional debridement Anesthesia Used: 4% Lidocaine Solution Depth: in the subcutaneous layer Percentage of wound debrided: 100 Instrument Used: #15 blade, Forceps Tissue Removed: fibrous, devitalized subcutaneous, biofilm, slough Severity: Fat Layer Exposed Amount of bleeding with debridement: Mild Bleeding Controlled with: Pressure, Gel Foam Patient tolerated procedure: Patient tolerated procedure well - Additional Wound Wound debrided: toe cluster Laterality: Right Wound Grade/Stage: grade 1 Type of Debridement: Excisional debridement Anesthesia Used: 4% Lidocaine Solution Depth: in the subcutaneous layer Percentage of wound debrided: 50 Instrument Used: #15 blade Tissue Removed: fibrous, devitalized subcutaneous, biofilm, slough Severity: Fat Layer Exposed Amount of bleeding with debridement: Mild Bleeding Controlled with: Pressure Patient tolerated procedure: Patient tolerated procedure well - Additional Wound Wound debrided: popliteal proximal area Laterality: Left Tissue Removed: not in scope of practice; not debrided. no infection noted Assessment/Plan Clinical Impression(s) from Imaging Studies Foot X-Ray 07/21/17 11:38 IMPRESSION: 1. Status post amputation of the fifth digital ray through the proximal shaft of the fifth metatarsal. 2. Generalized osteopenia. 3. Degenerative changes as reported above. 4. Markedly diffuse soft tissue swelling of the mid to distal foot. There is no evidence of soft tissue gas or radiopaque foreign body. 5. There is no radiographic evidence of acute osteomyelitis. Findings are similar to the previous study. Electronically Signed: Kevin Garcia MD at 23:54 EST , Service support , Active Problems BKA stump complication (Chronic) Cellulitis of lower extremity (Acute) Skin tear of right lower leg without complication (Acute) Blister (Acute) Type 2 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with diabetic polyneuropathy (Chronic) Ulcer of right lower extremity with fat layer exposed (Chronic) Type 2 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with diabetic polyneuropathy (Chronic) Chronic ulcer of right foot with fat layer exposed (Chronic) Delayed wound healing (Chronic) Malnutrition (Chronic) Nonhealing skin ulcer (Acute) Venous insufficiency (Chronic) Lymphedema (Chronic) Assessment: ulcers right foot - subcutaneous tissue exposed. Ulcers right leg - subcutaneous tissue exposed. ulcer left thigh. infection right heel ; rule out osteomyelitis. . Ulcer Left Stump. Lymphedema. Chronic lower extremity edema and venous insufficiency. Morbid obesity. Type 2 diabetes uncontrolled with peripheral neuropathy. CKD. Hypertension. Left below-knee amputation. Malnutrition. Delayed wound healing. Nonadherence to treatment plan Plan: I reviewed and discussed his treatment course and plan. Debridement was performed as noted in the clinical nursing panel. Right Foot heel ulcer redness and maceration have resolved. There is now an eschar. The odor has resolved. Deep tissue still exposed after removal part of the eschar and there is still concern for osteomyelitis. His x-rays did not demonstrate acute osseous destruction or soft tissue emphysema. Culture also taken last week from the forefoot and I recommended ciprofloxacin urine and Omnicef continuation; a new prescription was provided today. Infectious disease evaluated the patient today which is greatly appreciated and recommended continuation of the antibiotics. An MRI will be ordered. He was not able to make it at his scheduled time and this is been rescheduled for this upcoming Wednesday. She was advised not to miss this appointment. He understands if his condition worsens admission with surgical debridement and IV antibiotics will be considered. He has appeared to stabilize. Updated labs were ordered it is noted he is a white blood cell count of 8.7, sedimentation rate of 57, and C- reactive protein of 38. These trends will be followed. Apply jg to all wounds with adaptic covering with the exception of Betadine soaked gauze to the right heel. Standard state fire marshal was applied the right lower extremity so this will permit daily dressing changes. Continue 3M 2L wraps as previously recommended to the left lower extremity. He tolerated this well there are no signs of infection or deep tissue involvement noted. To continue twice daily compression pump use. Offloading of recomended especially of right heel. Optimal blood sugar control was recommended. Elevate lower extremity when sitted and in bed. Continue increased protein intake and supplements. Follow up in [address] Lux.
[2017-08-04 10:12] VITALS: BP 111/65; PULSE 81; RESP 20; TEMP 36.4; BMI 39.9
--- NOTE | 2017-08-04 11:47 | PN.PCM_ITS ---
(1) BKA stump complication Status: Chronic Current Visit: Yes Code(s): T87.9 - Unspecified complications of amputation stump (2) Cellulitis of lower extremity Status: Acute Current Visit: Yes Qualifiers: Laterality: right Qualified Code(s): L03.115 - Cellulitis of right lower limb Code(s): L03.119 - Cellulitis of unspecified part of limb (3) Blister Status: Acute Current Visit: Yes Code(s): T14.8XXA - Other injury of unspecified body region, initial encounter (4) Type 2 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with diabetic polyneuropathy Status: Chronic Current Visit: Yes Code(s): E11.42 - Type 2 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with diabetic polyneuropathy (5) Ulcer of right lower extremity with fat layer exposed Status: Chronic Current Visit: Yes Code(s): L97.912 - Non-pressure chronic ulcer of unspecified part of right lower leg with fat layer exposed (6) Chronic ulcer of right foot with fat layer exposed Status: Chronic Current Visit: Yes Code(s): L97.512 - Non-pressure chronic ulcer of other part of right foot with fat layer exposed (7) Delayed wound healing Status: Chronic Current Visit: Yes Code(s): T14.8 - Other injury of unspecified body region (8) Malnutrition Status: Chronic Current Visit: Yes Code(s): E46 - Unspecified protein- calorie malnutrition (9) Venous insufficiency Status: Chronic Current Visit: Yes (10) Lymphedema Status: Chronic Current Visit: Yes Code(s): I89.0 - Lymphedema, not elsewhere classified Type of Wound Date of Service: 08/04/17 Chief Complaint: Right foot and leg ulcer. right heel ulcer History of Wound: 57-year-old white male returns to clinic for follow-up of bilateral leg ulcers and right foot ulcers. He denies fever, chill, nausea, vomiting, loss of appetite. He has continued lower extremity swelling. Uses compression pump once daily this past week. He continues his antibiotics as adviced (omnicef and cipro). He saw infectious disease who confirmed the antibiotic choice is appropriate. He obtained xrays and labs. He did obtain an MRI which was negative for bone infection. He admits he will use of the compression pump once daily because he did not have time. Progress of Wound: stabilized right foot status. Left below-knee amputation stump site blister. Right leg ulcer and left thigh ulcer stable - Physical Exam Vital Signs Temp Pulse Resp BP 97.5 F L 81 20 H 111/65 08/04/17 10:12 08/04/17 10:12 08/04/17 10:12 08/04/17 10:12 General: Alert, Oriented x3, Cooperative HEENT: Atraumatic Extremities: No cyanosis, Capillary Refill Less than 3 Seconds - Right foot, No Calf Tenderness - Right negative Harry and Badillo, Diminished Peripheral Pulses, Edema - Bilateral lower extremities Skin: Ulcer/ Wound - Erythema and odor have resolved. There is no purulence or streaking noted. There is eschar to the right heel upon debridement fat layer is exposed and this is decreased devitalized and liquefied tissue. The skin is atrophic and hairless Wound Measurements and Assessment WC - Nurse 1 - General Ulcer Measurement Start: 07/09/17 09:38 Freq: Status: Active Protocol: Activity Type Activity Date Activity User E-Sign Co-Sign Detail Recorded Client Recorded Date Recorded By Document 08/04/17 10:12 DL [id number] 08/04/17 10:33 DL 08/04/17 10:12 Wound Center Nurse 1 [Ulcer Assessment] #14- LT POPLITEAL FOLD -Combined with other wound No -Current Size (cm) - Length 0.1 -Current Size (cm) - Width 0.1 -Current Size (cm) - Depth 0.1 -Total Square Cm 0.01 -Photo Taken No -Epithelialization Large 67-100% -Tunneling No -Undermining/Tunneling No -Circular Undermining No -Exudate Amt None Present (0 %) -Wound Margin Thickened & Rolled Under -Granulation Amt None Present (0 %) -Necrosis Amt Large (67-100%) -Necrotic Tissue Type Adherent Slough -Structure Exposed N/A -Texture (Martha-wound Skin Appearance) Assessed Localized Edema Rash -Moisture (Martha-wound Skin Appearance Assessed ) Dry/Scaly -Color (Martha-wound Skin Appearance) Assessed Hemosiderin Staining -Temperature (Martha-wound Skin No Abnormality Appearance) (Pt Warm) -Tenderness on Palpation (Martha-wound No Skin Appearance) -Ulcer Cleansing Wound Cleanser -Foul Odor after Cleansing No -Anesthetic Used 4% Lidocaine Solution #13 R Med Heel -Current Size (cm) - Length 5.2 -Current Size (cm) - Width 4.5 -Current Size (cm) - Depth 0.2 -Total Square Cm 23.40 -Photo Taken No -Exudate Amt Medium (34-66%) -Exudate Type Serosanguineous -Wound Margin Distinct, Outline Attached -Granulation Amt Small (1-33%) -Granulation Quality [place] -Necrosis Amt Large (67-100%) -Necrotic Tissue Type Eschar -Texture (Martha-wound Skin Appearance) No Abnormality -Moisture (Martha-wound Skin Appearance Dry/Scaly ) -Color (Martha-wound Skin Appearance) No Abnormality -Temperature (Martha-wound Skin No Abnormality Appearance) (Pt Warm) -Ulcer Cleansing Wound Cleanser -Foul Odor after Cleansing No #12 R LE Cluster -Current Size (cm) - Length 10.2 -Current Size (cm) - Width 13 -Current Size (cm) - Depth 0.1 -Total Square Cm 132.6 -Photo Taken No -Exudate Amt Medium (34-66%) -Exudate Type Serosanguineous -Wound Margin Indistinct, Non -Visible -Granulation Amt Medium (34-66%) -Granulation Quality [place] Red -Necrosis Amt Medium (34-66%) -Necrotic Tissue Type Adherent Slough -Texture (Martha-wound Skin Appearance) Scarring -Moisture (Martha-wound Skin Appearance Dry/Scaly ) -Color (Martha-wound Skin Appearance) Hemosiderin Staining -Temperature (Martha-wound Skin No Abnormality Appearance) (Pt Warm) -Ulcer Cleansing Wound Cleanser -Foul Odor after Cleansing No -Anesthetic Used 4% Lidocaine Solution #3 Right Foot-Toes w/Metatarsal Head circumfrential -Current Size (cm) - Length 10.4 -Current Size (cm) - Width 8.8 -Current Size (cm) - Depth 0.2 -Total Square Cm 91.52 -Photo Taken No -Exudate Amt Large (67-100%) -Exudate Type Serosanguineous -Wound Margin Indistinct, Non -Visible -Granulation Amt Medium (34-66%) -Granulation Quality [place] Red -Necrosis Amt Medium (34-66%) -Necrotic Tissue Type Adherent Slough -Structure Exposed N/A -Texture (Martha-wound Skin Appearance) Scarring -Moisture (Martha-wound Skin Appearance Maceration ) -Color (Martha-wound Skin Appearance) Hemosiderin Staining -Temperature (Martha-wound Skin No Abnormality Appearance) (Pt Warm) -Ulcer Cleansing Wound Cleanser -Foul Odor after Cleansing No -Anesthetic Used 4% Lidocaine Solution [Edema Assessment] -Right Calf (cm) 50.2 -Right Ankle (cm) 28.5 -Left Calf (cm) 41.5 WC - Nurse 2 - General Ulcer CM Notes Start: 07/09/17 09:38 Freq: Status: Active Protocol: Activity Type Activity Date Activity User E-Sign Co-Sign Detail Recorded Client Recorded Date Recorded By Document 08/04/17 10:55 ANUP [id number] 08/04/17 11:04 ANUP 08/04/17 10:55 Wound Center Nurse 2 [Procedure/Treatment] #14- LT POPLITEAL FOLD -Time 10:55 -Correct Patient No -Correct Side, Site, Position No -Correct Procedure No -Procedure Performed No -Post Debridement Size (cm) - Length 0 -Post Debridement Size (cm) - Width 0 -Post Debridement Size (cm) - Depth 0 -Total Square Cm 0 -Wound/Ulcer Outcome Healed- Epithelialized #13 R Med Heel -Time 10:55 -Correct Patient Yes -Correct Side, Site, Position Yes -Correct Procedure Yes -Procedure Performed Yes -Type of Procedure Debridement -Clinical Debridement Subcutaneous -Post Debridement Size (cm) - Length 5.3 -Post Debridement Size (cm) - Width 4.5 -Post Debridement Size (cm) - Depth 0.2 -Total Square Cm 23.85 -Wound/Ulcer Outcome Not Healed -Ulcer Cleansing Rinsed/ Irrigated with Saline -Foul Odor after Cleansing No -Bioengineered Tissue No -Bleeding Controlled with Pressure -Treatment Response Procedure Tolerated Well #12 R LE Cluster -Time 10:55 -Correct Patient Yes -Correct Side, Site, Position Yes -Correct Procedure Yes -Procedure Performed Yes -Type of Procedure Debridement -Clinical Debridement Subcutaneous -Post Debridement Size (cm) - Length 10.3 -Post Debridement Size (cm) - Width 13.1 -Post Debridement Size (cm) - Depth 0.1 -Total Square Cm 134.93 -Wound/Ulcer Outcome Not Healed -Ulcer Cleansing Rinsed/ Irrigated with Saline -Foul Odor after Cleansing No -Bioengineered Tissue No -Bleeding Controlled with Pressure -Treatment Response Procedure Tolerated Well #3 Right Foot-Toes w/Metatarsal Head circumfrential -Time 10:56 -Correct Patient Yes -Correct Side, Site, Position Yes -Correct Procedure Yes -Procedure Performed Yes -Type of Procedure Debridement -Clinical Debridement Subcutaneous -Post Debridement Size (cm) - Length 10.5 -Post Debridement Size (cm) - Width 8.8 -Post Debridement Size (cm) - Depth 0.2 -Total Square Cm 92.40 -Wound/Ulcer Outcome Not Healed -Ulcer Cleansing Rinsed/ Irrigated with Saline -Foul Odor after Cleansing No -Bioengineered Tissue No -Bleeding Controlled with Pressure -Treatment Response Procedure Tolerated Well [See Physician Procedure note for Specifics] Pain Scale: 0-10 Numeric [Pain] -Is Patient Pain Free? Yes Musculoskeletal: No Tenderness to Palpation of Joints or Extremities, Muscle Wasting, - - Left below-knee amputation. Bilateral lymphedema Neurological: - - Lack of epicritic sensation light touch bilateral Psych/Mental Status: Normal Affect, Appropriate Debridement Note Post-Debridement Measurements/Treatment WC - Nurse 2 - General Ulcer CM Notes Start: 07/09/17 09:38 Freq: Status: Active Protocol: Activity Type Activity Date Activity User E-Sign Co-Sign Detail Recorded Client Recorded Date Recorded By Document 07/15/17 10:58 [id number] 07/15/17 11:24 DV Document 07/21/17 10:26 [id number] 07/21/17 10:40 Document 07/28/17 10:39 TM [id number] 07/28/17 10:41 Document 08/04/17 10:55 [id number] 08/04/17 11:04 07/15/17 07/21/17 07/28/17 10:58 10:26 10:39 Wound Center Nurse 2 #14- LT POPLITEAL FOLD -Time 10:27 10:39 -Correct Patient No Yes -Correct Side, Site, Position No Yes -Correct Procedure No Yes -Procedure Performed No Yes -Type of Procedure Debridement -Clinical Debridement Subcutaneous -Post Debridement Size (cm) - Length 1.6 -Post Debridement Size (cm) - Width 1.6 -Post Debridement Size (cm) - Depth 0.1 -Total Square Cm 2.56 -Wound/Ulcer Outcome Not Healed Not Healed -Ulcer Cleansing Rinsed/ Rinsed/ Irrigated with Irrigated with Saline Saline -Foul Odor after Cleansing No No -Bioengineered Tissue No No -Topical Lidocaine (%) 4 -Bleeding Controlled with Pressure Pressure -Treatment Response Procedure Procedure Tolerated Well Tolerated Well #13 R Med Heel -Time 11: 10:28 10:39 -Correct Patient Yes Yes Yes -Correct Side, Site, Position Yes Yes Yes -Correct Procedure Yes Yes Yes -Procedure Performed Yes Yes Yes -Type of Procedure Debridement Debridement Debridement -Clinical Debridement Subcutaneous Subcutaneous Subcutaneous -Post Debridement Size (cm) - Length 2.5 5.0 5.8 -Post Debridement Size (cm) - Width 4.0 6.5 7.1 -Post Debridement Size (cm) - Depth 0.2 0.1 0.2 -Total Square Cm 10.00 32.50 41.18 -Wound/Ulcer Outcome Amputation Not Healed Not Healed -Ulcer Cleansing Rinsed/ Rinsed/ Rinsed/ Irrigated with Irrigated with Irrigated with Saline Saline Saline -Foul Odor after Cleansing No No No -Bioengineered Tissue No No No -Topical Lidocaine (%) 4 -Bleeding Controlled with Pressure Pressure Pressure -Treatment Response Procedure Procedure Procedure Tolerated Well Tolerated Well Tolerated Well #12 R LE Cluster -Time 11: 10:28 10:40 -Correct Patient Yes Yes Yes -Correct Side, Site, Position Yes Yes Yes -Correct Procedure Yes Yes Yes -Procedure Performed Yes Yes Yes -Type of Procedure Debridement Debridement Debridement -Clinical Debridement Subcutaneous Subcutaneous Subcutaneous -Post Debridement Size (cm) - Length 14.0 12.1 10.6 -Post Debridement Size (cm) - Width 38.0 16.8 17.6 -Post Debridement Size (cm) - Depth 0.1 0.1 0.1 -Total Square Cm 532.00 203.28 186.56 -Wound/Ulcer Outcome Not Healed Not Healed Not Healed -Ulcer Cleansing Rinsed/ Rinsed/ Rinsed/ Irrigated with Irrigated with Irrigated with Saline Saline Saline -Foul Odor after Cleansing No No No -Bioengineered Tissue No No No -Topical Lidocaine (%) 4 -Bleeding Controlled with Pressure Pressure Pressure -Treatment Response Procedure Procedure Procedure Tolerated Well Tolerated Well Tolerated Well #11 RIGHT PROXIMAL LE -Correct Patient Yes -Correct Side, Site, Position Yes -Correct Procedure Yes -Procedure Performed Yes -Type of Procedure Debridement -Clinical Debridement Subcutaneous -Wound/Ulcer Outcome Not Healed -Ulcer Cleansing Rinsed/ Irrigated with Saline -Foul Odor after Cleansing No -Bioengineered Tissue No -Bleeding Controlled with Pressure -Treatment Response Procedure Tolerated Well #9 RIGHT PROXIMAL ANTERIOR LE -Time 11:03 -Correct Patient Yes -Correct Side, Site, Position Yes -Correct Procedure Yes -Procedure Performed Yes -Type of Procedure Debridement -Clinical Debridement Subcutaneous -Wound/Ulcer Outcome Not Healed -Ulcer Cleansing Rinsed/ Irrigated with Saline -Foul Odor after Cleansing No -Bioengineered Tissue No -Bleeding Controlled with Pressure -Treatment Response Procedure Tolerated Well #6 R Med Lower Leg -Time 11:03 -Correct Patient Yes -Correct Side, Site, Position Yes -Correct Procedure Yes -Procedure Performed Yes -Type of Procedure Debridement -Clinical Debridement Subcutaneous -Wound/Ulcer Outcome Not Healed -Ulcer Cleansing Rinsed/ Irrigated with Saline -Foul Odor after Cleansing No -Bioengineered Tissue No -Bleeding Controlled with Pressure -Treatment Response Procedure Tolerated Well #3 Right Foot-Toes w/Metatarsal Head circumfrential -Time 11:11 10:28 10:40 -Correct Patient Yes Yes Yes -Correct Side, Site, Position Yes Yes Yes -Correct Procedure Yes Yes Yes -Procedure Performed Yes Yes Yes -Type of Procedure Debridement Debridement Debridement -Clinical Debridement Subcutaneous Subcutaneous Subcutaneous -Post Debridement Size (cm) - Length 4.0 11.1 11.1 -Post Debridement Size (cm) - Width 24.0 8.4 7.6 -Post Debridement Size (cm) - Depth 0.2 0.1 0.1 -Total Square Cm 96.00 93.24 84.36 -Wound/Ulcer Outcome Not Healed Not Healed Not Healed -Ulcer Cleansing Rinsed/ Rinsed/ Rinsed/ Irrigated with Irrigated with Irrigated with Saline Saline Saline -Foul Odor after Cleansing No No No -Bioengineered Tissue No No No -Topical Lidocaine (%) 4 -Bleeding Controlled with Pressure Pressure Pressure -Treatment Response Procedure Procedure Procedure Tolerated Well Tolerated Well Tolerated Well #1 BTK Left Stump cluster -Time 10:59 -Correct Patient Yes No -Correct Side, Site, Position Yes No -Correct Procedure Yes No -Procedure Performed Yes No -Type of Procedure Debridement -Clinical Debridement Subcutaneous -Post Debridement Size (cm) - Length 35.5 0.1 -Post Debridement Size (cm) - Width 10.0 0.1 -Post Debridement Size (cm) - Depth 0.1 0.1 -Total Square Cm 355.00 0.01 -Wound/Ulcer Outcome Not Healed Not Healed -Ulcer Cleansing Rinsed/ Irrigated with Saline -Foul Odor after Cleansing No -Bioengineered Tissue No -Bleeding Controlled with Pressure -Treatment Response Procedure Procedure Tolerated Well Tolerated Well Pain Scale: 0-10 Numeric Is Patient Pain Free? Yes Yes Yes 08/04/17 10:55 Wound Center Nurse 2 #14- LT POPLITEAL FOLD -Time 10:55 -Correct Patient No -Correct Side, Site, Position No -Correct Procedure No -Procedure Performed No -Type of Procedure -Clinical Debridement -Post Debridement Size (cm) - Length 0 -Post Debridement Size (cm) - Width 0 -Post Debridement Size (cm) - Depth 0 -Total Square Cm 0 -Wound/Ulcer Outcome Healed- Epithelialized -Ulcer Cleansing -Foul Odor after Cleansing -Bioengineered Tissue -Topical Lidocaine (%) -Bleeding Controlled with -Treatment Response #13 R Med Heel -Time 10:55 -Correct Patient Yes -Correct Side, Site, Position Yes -Correct Procedure Yes -Procedure Performed Yes -Type of Procedure Debridement -Clinical Debridement Subcutaneous -Post Debridement Size (cm) - Length 5.3 -Post Debridement Size (cm) - Width 4.5 -Post Debridement Size (cm) - Depth 0.2 -Total Square Cm 23.85 -Wound/Ulcer Outcome Not Healed -Ulcer Cleansing Rinsed/ Irrigated with Saline -Foul Odor after Cleansing No -Bioengineered Tissue No -Topical Lidocaine (%) -Bleeding Controlled with Pressure -Treatment Response Procedure Tolerated Well #12 R LE Cluster -Time 10:55 -Correct Patient Yes -Correct Side, Site, Position Yes -Correct Procedure Yes -Procedure Performed Yes -Type of Procedure Debridement -Clinical Debridement Subcutaneous -Post Debridement Size (cm) - Length 10.3 -Post Debridement Size (cm) - Width 13.1 -Post Debridement Size (cm) - Depth 0.1 -Total Square Cm 134.93 -Wound/Ulcer Outcome Not Healed -Ulcer Cleansing Rinsed/ Irrigated with Saline -Foul Odor after Cleansing No -Bioengineered Tissue No -Topical Lidocaine (%) -Bleeding Controlled with Pressure -Treatment Response Procedure Tolerated Well #11 RIGHT PROXIMAL LE -Correct Patient -Correct Side, Site, Position -Correct Procedure -Procedure Performed -Type of Procedure -Clinical Debridement -Wound/Ulcer Outcome -Ulcer Cleansing -Foul Odor after Cleansing -Bioengineered Tissue -Bleeding Controlled with -Treatment Response #9 RIGHT PROXIMAL ANTERIOR LE -Time -Correct Patient -Correct Side, Site, Position -Correct Procedure -Procedure Performed -Type of Procedure -Clinical Debridement -Wound/Ulcer Outcome -Ulcer Cleansing -Foul Odor after Cleansing -Bioengineered Tissue -Bleeding Controlled with -Treatment Response #6 R Med Lower Leg -Time -Correct Patient -Correct Side, Site, Position -Correct Procedure -Procedure Performed -Type of Procedure -Clinical Debridement -Wound/Ulcer Outcome -Ulcer Cleansing -Foul Odor after Cleansing -Bioengineered Tissue -Bleeding Controlled with -Treatment Response #3 Right Foot-Toes w/Metatarsal Head circumfrential -Time 10:56 -Correct Patient Yes -Correct Side, Site, Position Yes -Correct Procedure Yes -Procedure Performed Yes -Type of Procedure Debridement -Clinical Debridement Subcutaneous -Post Debridement Size (cm) - Length 10.5 -Post Debridement Size (cm) - Width 8.8 -Post Debridement Size (cm) - Depth 0.2 -Total Square Cm 92.40 -Wound/Ulcer Outcome Not Healed -Ulcer Cleansing Rinsed/ Irrigated with Saline -Foul Odor after Cleansing No -Bioengineered Tissue No -Topical Lidocaine (%) -Bleeding Controlled with Pressure -Treatment Response Procedure Tolerated Well #1 BTK Left Stump cluster -Time -Correct Patient -Correct Side, Site, Position -Correct Procedure -Procedure Performed -Type of Procedure -Clinical Debridement -Post Debridement Size (cm) - Length -Post Debridement Size (cm) - Width -Post Debridement Size (cm) - Depth -Total Square Cm -Wound/Ulcer Outcome -Ulcer Cleansing -Foul Odor after Cleansing -Bioengineered Tissue -Bleeding Controlled with -Treatment Response Pain Scale: 0-10 Numeric Is Patient Pain Free? Yes Wound debrided: foot Laterality: Right Wound Grade/Stage: grade1 Type of Debridement: Excisional debridement Anesthesia Used: 4% Lidocaine Solution Depth: in the subcutaneous layer Percentage of wound debrided: 100 Instrument Used: #15 blade Tissue Removed: fibrous, devitalized subcutaneous, biofilm, slough Severity: Fat Layer Exposed Amount of bleeding with debridement: Mild Bleeding Controlled with: Pressure Patient tolerated procedure well - Additional Wound Wound debrided: heel Laterality: Right Wound Grade/Stage: grade 3 Type of Debridement: Excisional debridement Anesthesia Used: 4% Lidocaine Solution Depth: in the subcutaneous layer Percentage of wound debrided: 100 Instrument Used: #15 blade Tissue Removed: fibrous, devitalized subcutaneous, biofilm, slough, eschar Severity: Necrosis of Muscle Amount of bleeding with debridement: Mild Bleeding Controlled with: Pressure Patient tolerated procedure: Patient tolerated procedure well - Additional Wound Wound debrided: leg Laterality: Right Wound Grade/Stage: satinder 1 Type of Debridement: Excisional debridement Anesthesia Used: 4% Lidocaine Solution Depth: in the subcutaneous layer Percentage of wound debrided: 100 Instrument Used: #15 blade Tissue Removed: fibrous, devitalized subcutaneous, biofilm, slough Severity: Fat Layer Exposed Amount of bleeding with debridement: Mild Bleeding Controlled with: Pressure Patient tolerated procedure: Patient tolerated procedure well Assessment/Plan Clinical Impression(s) from Imaging Studies Foot X-Ray 07/21/17 11:38 IMPRESSION: 1. Status post amputation of the fifth digital ray through the proximal shaft of the fifth metatarsal. 2. Generalized osteopenia. 3. Degenerative changes as reported above. 4. Markedly diffuse soft tissue swelling of the mid to distal foot. There is no evidence of soft tissue gas or radiopaque foreign body. 5. There is no radiographic evidence of acute osteomyelitis. Findings are similar to the previous study. Electronically Signed: Kevin Garcia MD at 23:54 EST , Service support , Active Problems BKA stump complication (Chronic) Cellulitis of lower extremity (Acute) Skin tear of right lower leg without complication (Acute) Blister (Acute) Type 2 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with diabetic polyneuropathy (Chronic) Ulcer of right lower extremity with fat layer exposed (Chronic) Type 2 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with diabetic polyneuropathy (Chronic) Chronic ulcer of right foot with fat layer exposed (Chronic) Delayed wound healing (Chronic) Malnutrition (Chronic) Nonhealing skin ulcer (Acute) Venous insufficiency (Chronic) Lymphedema (Chronic) Assessment: ulcers right foot - subcutaneous tissue exposed. Ulcers right leg - subcutaneous tissue exposed. infection right heel ; rule out osteomyelitis. . Ulcer Left Stump. Lymphedema. Chronic lower extremity edema and venous insufficiency. Morbid obesity. Type 2 diabetes uncontrolled with peripheral neuropathy. CKD. Hypertension. Left below-knee amputation. Malnutrition. Delayed wound healing. Nonadherence to treatment plan Plan: I reviewed and discussed his treatment course and plan. Debridement was performed as noted in the clinical nursing panel. Right Foot heel ulcer redness and maceration have resolved. There is now an eschar. The odor has resolved. His x-rays did not demonstrate acute osseous destruction or soft tissue emphysema. Culture also taken and the results were discussed. To continue on antibiotics. Infectious disease evaluated the patient and input is appreciated. His MRI was reviewed and there is no evidence of osteomyelitis at this time. He understands if his condition worsens admission with surgical debridement and IV antibiotics will be considered. He has appeared to stabilize. Updated labs were ordered it is noted he is a white blood cell count of 8.7, sedimentation rate of 57, and C-reactive protein of 38. These trends will be followed. Apply jg to all wounds with adaptic covering with the exception of Santyl to the right heel. Standard cosmetic manager was applied the right lower extremity so this will permit daily dressing changes. Continue 3M 2L wraps as previously recommended to the left lower extremity. He tolerated this well there are no signs of infection or deep tissue involvement noted. To continue twice daily compression pump use. Offloading of recomended especially of right heel. Optimal blood sugar control was recommended. Elevate lower extremity when sitted and in bed. Continue increased protein intake and supplements. To continue lymphedema pumps and elevation daily. Compliance was discussed and is necessary for success of treatment plan. Carolann, lymphedema nurse measured his legs today for continued compression therapy planning. Follow up in [address] Lux.
== END 2017-08-04 23:59 ==
LOC: WC 09:30
PROVIDERS: Visit Provider Podiatrist
DX: E11.622 Type 2 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with other skin ulcer (principal); L97.512 Non-pressure chronic ulcer of other part of right foot with fat layer exposed; E11.42 Type 2 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with diabetic polyneuropathy; M79.89 Other specified soft tissue disorders; L97.811 Non-pressure chronic ulcer of other part of right lower leg limited to breakdown of skin; Z89.512 Acquired absence of left leg below knee; E11.65 Type 2 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with hyperglycemia; R60.0 Localized edema; E11.51 Type 2 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with diabetic peripheral angiopathy without gangrene; E11.22 Type 2 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with diabetic chronic kidney disease; I12.9 Hypertensive chronic kidney disease with stage 1 through stage 4 chronic kidney disease, or unspecified chronic kidney disease; N18.9 Chronic kidney disease, unspecified; E66.01 Morbid (severe) obesity due to excess calories; Z68.39 Body mass index [BMI] 39.0-39.9, adult; Z71.3 Dietary counseling and surveillance; I89.0 Lymphedema, not elsewhere classified; L03.115 Cellulitis of right lower limb; L97.129 Non-pressure chronic ulcer of left thigh with unspecified severity
CPT/HCPCS: 11042; 11045; 29581; 36415; 73630; 80048; 85027; 85652; 86140; 87015; 87070; 87075; 87077; 87101; 87116; 87186; 87205; 87206; 99213; G0463

== ENCOUNTER 2017-08-17 08:42 | Outpatient (RCR) | payer MEDICARE, MEDICAID, SELFPAY | END 2017-09-04 23:59 | LOC: DC 08:42 | PROVIDERS: Visit Provider Podiatrist | DX: E11.42 Type 2 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with diabetic polyneuropathy (principal); E46 Unspecified protein-calorie malnutrition; T14.90XA Injury, unspecified, initial encounter; Z71.3 Dietary counseling and surveillance | CPT/HCPCS: G0108 ==

== ENCOUNTER 2017-09-01 10:30 | Outpatient (RCR) | payer MEDICARE, MEDICAID, SELFPAY ==
[2017-08-05 00:25] VITALS: BP 166/72; PULSE 81; RESP 20; TEMP 36.4; BMI 39.9
[2017-08-11 09:43] VITALS: TEMP 36.1; BMI 39.9
--- NOTE | 2017-08-11 12:04 | PCM.WC.PN ---
(1) Chronic kidney disease (CKD) Status: Chronic Current Visit: Yes Qualifiers: Code(s): N18.9 - Chronic kidney disease, unspecified (2) Cellulitis of lower extremity Status: Resolved Current Visit: Yes Qualifiers: Laterality: right Code(s): L03.119 - Cellulitis of unspecified part of limb (3) Type 2 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with diabetic polyneuropathy Status: Chronic Current Visit: Yes Code(s): E11.42 - Type 2 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with diabetic polyneuropathy (4) Ulcer of right lower extremity with fat layer exposed Status: Chronic Current Visit: Yes Code(s): L97.912 - Non-pressure chronic ulcer of unspecified part of right lower leg with fat layer exposed (5) Chronic ulcer of right foot with fat layer exposed Status: Chronic Current Visit: Yes Code(s): L97.512 - Non-pressure chronic ulcer of other part of right foot with fat layer exposed (6) Delayed wound healing Status: Chronic Current Visit: Yes Code(s): T14.8 - Other injury of unspecified body region (7) Malnutrition Status: Chronic Current Visit: Yes Code(s): E46 - Unspecified protein-calorie malnutrition (8) Venous insufficiency Status: Chronic Current Visit: Yes (9) Lymphedema Status: Chronic Current Visit: Yes Code(s): I89.0 - Lymphedema, not elsewhere classified (10) Edema of both legs Status: Chronic Current Visit: Yes Code(s): R60.0 - Localized edema (11) Morbid obesity with BMI of 45.0-49.9, adult Status: Chronic Current Visit: Yes Code(s): E66.01 - Morbid (severe) obesity due to excess calories; Z68.42 - Body mass index (BMI) 45.0-49.9, adult Type of Wound Date of Service: 08/11/17 Chief Complaint: Right foot ulcer. New blisters to right leg with new wound. new Leg wound History of Wound: 57-year-old white male returns to clinic for follow-up of bilateral leg ulcers and right foot ulcers. He denies fever, chill, nausea, vomiting, loss of appetite. He has continued lower extremity swelling has been recently better controlled. Uses compression pump once daily this past week. He relates he completed his antibiotic course as advised by infectious disease. Progress of Wound: stabilized right foot status. Right leg ulcers improved with healed proximal lateral and medial distal leg - Physical Exam Vital Signs Temp Pulse Resp BP 96.9 F L 81 20 H 166/72 H 08/11/17 09:43 08/05/17 00:25 08/05/17 00:25 08/05/17 00:25 General: Alert, Oriented x3, Cooperative Extremities: No cyanosis, Capillary Refill Less than 3 Seconds, No Calf Tenderness - Negative Harry and Badillo right, Diminished Peripheral Pulses, Edema - Bilateral lower extremities with lymph and edema changes and skin induration Skin: Ulcer/ Wound - No purulence, no erythema, no streaking, no acute infection. There is continued devitalized tissue to the newer right heel wound with eschar formation which is decreased. There is fibrous tissue and exposed adipose. No probe or visualization of the bone. The proximal lateral right leg ulcer and medial distal right leg ulcers are healed with full epithelialization. There is no erythema or odor. Wound Measurements and Assessment WC - Nurse 1 - General Ulcer Measurement Start: 08/11/17 09:43 Freq: Status: Active Protocol: Activity Type Activity Date Activity User E-Sign Co-Sign Detail Recorded Client Recorded Date Recorded By Document 08/11/17 09:43 MW [id number] 08/11/17 10:18 MW 08/11/17 09:43 Wound Center Nurse 1 [Ulcer Assessment] #14- LT POPLITEAL FOLD -Combined with other wound No -Current Size (cm) - Length 2.0 -Current Size (cm) - Width 0.7 -Current Size (cm) - Depth 0.1 -Total Square Cm 1.40 -Photo Taken No -Epithelialization None Present -Tunneling No -Undermining/Tunneling No -Circular Undermining No -Exudate Amt None Present (0 %) -Granulation Amt None Present (0 %) -Granulation Quality N/A -Slough/Fibrin Yes -Necrosis Amt Large (67-100%) -Necrotic Tissue Type Adherent Slough -Structure Exposed N/A -Texture (Martha-wound Skin Appearance) Assessed Localized Edema -Moisture (Martha-wound Skin Appearance Assessed ) Dry/Scaly -Color (Martha-wound Skin Appearance) Assessed Rubor -Temperature (Martha-wound Skin No Abnormality Appearance) (Pt Warm) -Tenderness on Palpation (Martha-wound No Skin Appearance) -Ulcer Cleansing Rinsed/ Irrigated with Saline -Foul Odor after Cleansing No -Anesthetic Used 4% Lidocaine Solution #13 R Med Heel -Combined with other wound No -Current Size (cm) - Length 4.5 -Current Size (cm) - Width 5.2 -Current Size (cm) - Depth 0.3 -Total Square Cm 23.40 -Date of Last Picture (Recall this 08/11/17 field) -Photo Taken Yes -Epithelialization None Present -Tunneling No -Undermining/Tunneling No -Circular Undermining No -Exudate Amt None Present (0 %) -Wound Margin Distinct, Outline Attached -Granulation Amt None Present (0 %) -Granulation Quality N/A -Necrosis Amt Large (67-100%) -Necrotic Tissue Type Eschar -Structure Exposed N/A -Texture (Martha-wound Skin Appearance) Assessed Callus -Moisture (Martha-wound Skin Appearance Assessed ) Dry/Scaly -Color (Martha-wound Skin Appearance) Assessed Erythema -Temperature (Martha-wound Skin No Abnormality Appearance) (Pt Warm) -Tenderness on Palpation (Martha-wound No Skin Appearance) -Ulcer Cleansing Rinsed/ Irrigated with Saline -Foul Odor after Cleansing No -Anesthetic Used 4% Lidocaine Solution #12 R LE Cluster -Combined with other wound No -Current Size (cm) - Length 0.1 -Current Size (cm) - Width 0.1 -Current Size (cm) - Depth 0.1 -Total Square Cm 0.01 -Photo Taken No -Epithelialization None Present -Tunneling No -Undermining/Tunneling No -Circular Undermining No -Exudate Amt None Present (0 %) -Granulation Amt None Present (0 %) -Slough/Fibrin Yes -Necrosis Amt Small (1-33%) -Necrotic Tissue Type Adherent Slough -Structure Exposed N/A -Texture (Martha-wound Skin Appearance) Assessed Localized Edema -Moisture (Martha-wound Skin Appearance Assessed ) Dry/Scaly -Color (Martha-wound Skin Appearance) Assessed Rubor -Temperature (Martha-wound Skin No Abnormality Appearance) (Pt Warm) -Tenderness on Palpation (Martha-wound No Skin Appearance) -Ulcer Cleansing Rinsed/ Irrigated with Saline -Foul Odor after Cleansing No -Anesthetic Used 4% Lidocaine Solution #11 RIGHT PROXIMAL LE -Combined with other wound No -Current Size (cm) - Length 0.1 -Current Size (cm) - Width 0.1 -Current Size (cm) - Depth 0.1 -Total Square Cm 0.01 -Photo Taken No -Epithelialization None Present -Tunneling No -Undermining/Tunneling No -Circular Undermining No -Exudate Amt None Present (0 %) -Granulation Amt None Present (0 %) -Granulation Quality N/A -Slough/Fibrin Yes -Necrosis Amt Small (1-33%) -Necrotic Tissue Type Adherent Slough -Structure Exposed N/A -Texture (Martha-wound Skin Appearance) Assessed Localized Edema -Moisture (Martha-wound Skin Appearance Assessed ) Dry/Scaly -Color (Martha-wound Skin Appearance) Assessed Rubor -Temperature (Martha-wound Skin No Abnormality Appearance) (Pt Warm) -Tenderness on Palpation (Martha-wound No Skin Appearance) -Ulcer Cleansing Rinsed/ Irrigated with Saline -Foul Odor after Cleansing No -Anesthetic Used 4% Lidocaine Solution #10- RIGHT LATERAL -Combined with other wound No -Current Size (cm) - Length 0.8 -Current Size (cm) - Width 4.0 -Current Size (cm) - Depth 0.1 -Total Square Cm 3.20 -Photo Taken No -Epithelialization None Present -Tunneling No -Undermining/Tunneling No -Circular Undermining No -Exudate Amt None Present (0 %) -Wound Margin Flat & Intact -Granulation Amt Small (1-33%) -Granulation Quality [place] -Slough/Fibrin Yes -Necrosis Amt Large (67-100%) -Necrotic Tissue Type Adherent Slough -Structure Exposed N/A -Texture (Martha-wound Skin Appearance) Assessed Localized Edema -Moisture (Martha-wound Skin Appearance Assessed ) Dry/Scaly -Color (Martha-wound Skin Appearance) Assessed Rubor -Temperature (Martha-wound Skin No Abnormality Appearance) (Pt Warm) -Tenderness on Palpation (Martha-wound No Skin Appearance) -Ulcer Cleansing Wound Cleanser -Foul Odor after Cleansing No -Anesthetic Used 4% Lidocaine Solution #9 RIGHt norman -Combined with other wound No -Current Size (cm) - Length 0.1 -Current Size (cm) - Width 0.1 -Current Size (cm) - Depth 0.1 -Total Square Cm 0.01 -Photo Taken No -Epithelialization None Present -Tunneling No -Undermining/Tunneling No -Circular Undermining No -Exudate Amt None Present (0 %) -Granulation Amt None Present (0 %) -Granulation Quality N/A -Slough/Fibrin Yes -Necrosis Amt Small (1-33%) -Necrotic Tissue Type Adherent Slough -Structure Exposed N/A -Texture (Martha-wound Skin Appearance) Assessed Localized Edema -Moisture (Martha-wound Skin Appearance Assessed ) Dry/Scaly -Color (Martha-wound Skin Appearance) Assessed Rubor -Temperature (Martha-wound Skin No Abnormality Appearance) (Pt Warm) -Tenderness on Palpation (Martha-wound No Skin Appearance) -Ulcer Cleansing Rinsed/ Irrigated with Saline -Foul Odor after Cleansing No -Anesthetic Used 4% Lidocaine Solution #6 R Med Lower Leg -Combined with other wound No -Current Size (cm) - Length 0.1 -Current Size (cm) - Width 0.1 -Current Size (cm) - Depth 0.1 -Total Square Cm 0.01 -Photo Taken No -Epithelialization None Present -Tunneling No -Undermining/Tunneling No -Circular Undermining No -Exudate Amt Small (1-33%) -Wound Margin Flat & Intact -Granulation Amt None Present (0 %) -Granulation Quality N/A -Slough/Fibrin Yes -Necrosis Amt Small (1-33%) -Necrotic Tissue Type Adherent Slough -Structure Exposed N/A -Texture (Martha-wound Skin Appearance) Assessed Localized Edema -Moisture (Martha-wound Skin Appearance Assessed ) Dry/Scaly -Color (Martha-wound Skin Appearance) Assessed Rubor -Temperature (Martha-wound Skin No Abnormality Appearance) (Pt Warm) -Tenderness on Palpation (Martha-wound No Skin Appearance) -Ulcer Cleansing Rinsed/ Irrigated with Saline -Foul Odor after Cleansing No -Anesthetic Used 4% Lidocaine Solution #3 Right Foot-Toes w/Metatarsal Head circumfrential -Combined with other wound No -Current Size (cm) - Length 8.5 -Current Size (cm) - Width 8.5 -Current Size (cm) - Depth 0.1 -Total Square Cm 72.25 -Date of Last Picture (Recall this 08/11/17 field) -Photo Taken Yes -Epithelialization None Present -Tunneling No -Undermining/Tunneling No -Circular Undermining No -Exudate Amt Medium (34-66%) -Exudate Type Serosanguineous -Wound Margin Flat & Intact -Granulation Amt Small (1-33%) -Granulation Quality [place] -Slough/Fibrin Yes -Necrosis Amt Large (67-100%) -Necrotic Tissue Type Adherent Slough -Structure Exposed N/A -Texture (Martha-wound Skin Appearance) Assessed Localized Edema -Moisture (Martha-wound Skin Appearance Assessed ) Maceration -Color (Martha-wound Skin Appearance) Assessed Rubor -Temperature (Martha-wound Skin No Abnormality Appearance) (Pt Warm) -Tenderness on Palpation (Martha-wound No Skin Appearance) -Ulcer Cleansing Rinsed/ Irrigated with Saline -Foul Odor after Cleansing No -Anesthetic Used 4% Lidocaine Solution #1 BTK Left Stump cluster -Combined with other wound No -Current Size (cm) - Length 0.9 -Current Size (cm) - Width 0.9 -Current Size (cm) - Depth 0.1 -Total Square Cm 0.81 -Photo Taken No -Epithelialization None Present -Tunneling No -Undermining/Tunneling No -Circular Undermining No -Exudate Amt Small (1-33%) -Exudate Type Serosanguineous -Wound Margin Flat & Intact -Granulation Amt Small (1-33%) -Granulation Quality Pale -Slough/Fibrin Yes -Necrosis Amt Medium (34-66%) -Necrotic Tissue Type Adherent Slough -Structure Exposed N/A -Texture (Martha-wound Skin Appearance) Assessed Localized Edema -Moisture (Martha-wound Skin Appearance Assessed ) [place] Dry/Scaly -Color (Martha-wound Skin Appearance) Assessed Rubor -Temperature (Martha-wound Skin No Abnormality Appearance) (Pt Warm) -Tenderness on Palpation (Martha-wound No Skin Appearance) -Ulcer Cleansing Rinsed/ Irrigated with Saline -Foul Odor after Cleansing No -Anesthetic Used 4% Lidocaine Solution [Edema Assessment] -Lower Limb Edema Present Yes -Right Calf (cm) 47.2 -Right Ankle (cm) 28.7 -Left Calf (cm) 45.5 WC - Nurse 2 - General Ulcer CM Notes Start: 08/11/17 09:43 Freq: Status: Active Protocol: Activity Type Activity Date Activity User E-Sign Co-Sign Detail Recorded Client Recorded Date Recorded By Document 08/11/17 10:37 [id number] 08/11/17 11:13 TM 08/11/17 10:37 Wound Center Nurse 2 [Procedure/Treatment] #14- LT POPLITEAL FOLD -Time 10:55 -Correct Patient Yes -Correct Side, Site, Position Yes -Correct Procedure Yes -Procedure Performed Yes -Type of Procedure Debridement -Clinical Debridement Subcutaneous -Post Debridement Size (cm) - Length 2.0 -Post Debridement Size (cm) - Width 0.7 -Post Debridement Size (cm) - Depth 0.1 -Total Square Cm 1.40 -Wound/Ulcer Outcome Not Healed -Ulcer Cleansing Rinsed/ Irrigated with Saline -Foul Odor after Cleansing No -Bioengineered Tissue No -Topical Lidocaine (%) 5 -Bleeding Controlled with NA -Other popliteal fold not in Dr Bell scope of practice- keep an eye on -Treatment Response Procedure Tolerated Well #13 R Med Heel -Time 10:56 -Correct Patient Yes -Correct Side, Site, Position Yes -Correct Procedure Yes -Procedure Performed Yes -Type of Procedure Debridement -Clinical Debridement Subcutaneous -Post Debridement Size (cm) - Length 4.6 -Post Debridement Size (cm) - Width 5.3 -Post Debridement Size (cm) - Depth 0.3 -Total Square Cm 24.38 -Wound/Ulcer Outcome Not Healed -Ulcer Cleansing Rinsed/ Irrigated with Saline -Foul Odor after Cleansing No -Bioengineered Tissue No -Topical Lidocaine (%) 5 -Bleeding Controlled with Pressure -Treatment Response Procedure Tolerated Well #12 R LE Cluster -Time 10:57 -Correct Patient Yes -Correct Side, Site, Position Yes -Correct Procedure Yes -Procedure Performed Yes -Post Debridement Size (cm) - Length 0 -Post Debridement Size (cm) - Width 0 -Post Debridement Size (cm) - Depth 0 -Total Square Cm 0 -Wound/Ulcer Outcome Healed- Epithelialized -Ulcer Cleansing Rinsed/ Irrigated with Saline -Foul Odor after Cleansing No -Bioengineered Tissue No -Topical Lidocaine (%) 5 -Bleeding Controlled with NA Pressure -Treatment Response Procedure Tolerated Well #11 RIGHT PROXIMAL LE -Time 10:57 -Correct Patient Yes -Correct Side, Site, Position Yes -Correct Procedure Yes -Procedure Performed Yes -Post Debridement Size (cm) - Length 0 -Post Debridement Size (cm) - Width 0 -Post Debridement Size (cm) - Depth 0 -Total Square Cm 0 -Wound/Ulcer Outcome Healed- Epithelialized -Ulcer Cleansing Rinsed/ Irrigated with Saline -Foul Odor after Cleansing No -Bioengineered Tissue No -Topical Lidocaine (%) 5 -Bleeding Controlled with NA Pressure -Treatment Response Procedure Tolerated Well #10- RIGHT LATERAL -Time 10:58 -Correct Patient Yes -Correct Side, Site, Position Yes -Correct Procedure Yes -Procedure Performed Yes -Type of Procedure Debridement -Clinical Debridement Subcutaneous -Post Debridement Size (cm) - Length 0.9 -Post Debridement Size (cm) - Width 4.4 -Post Debridement Size (cm) - Depth 0.1 -Total Square Cm 3.96 -Wound/Ulcer Outcome Not Healed -Ulcer Cleansing Rinsed/ Irrigated with Saline -Foul Odor after Cleansing No -Bioengineered Tissue No -Topical Lidocaine (%) 5 -Bleeding Controlled with Pressure -Treatment Response Procedure Tolerated Well #9 RIGHt norman -Time 10:58 -Correct Patient Yes -Correct Side, Site, Position Yes -Correct Procedure Yes -Procedure Performed Yes -Type of Procedure Debridement -Clinical Debridement Subcutaneous -Post Debridement Size (cm) - Length 0.9 -Post Debridement Size (cm) - Width 0.9 -Post Debridement Size (cm) - Depth 0.1 -Total Square Cm 0.81 -Wound/Ulcer Outcome Not Healed -Ulcer Cleansing Rinsed/ Irrigated with Saline -Foul Odor after Cleansing No -Bioengineered Tissue No -Topical Lidocaine (%) 5 -Bleeding Controlled with Pressure -Treatment Response Procedure Tolerated Well #6 R Med Lower Leg -Time 10:59 -Correct Patient Yes -Correct Side, Site, Position Yes -Correct Procedure Yes -Procedure Performed Yes -Post Debridement Size (cm) - Length 0 -Post Debridement Size (cm) - Width 0 -Post Debridement Size (cm) - Depth 0 -Total Square Cm 0 -Wound/Ulcer Outcome Healed- Epithelialized -Ulcer Cleansing Rinsed/ Irrigated with Saline -Foul Odor after Cleansing No -Bioengineered Tissue No -Topical Lidocaine (%) 5 -Bleeding Controlled with NA -Treatment Response Procedure Tolerated Well #3 Right Foot-Toes w/Metatarsal Head circumfrential -Time 10:59 -Correct Patient Yes -Correct Side, Site, Position Yes -Correct Procedure Yes -Procedure Performed Yes -Type of Procedure Debridement -Clinical Debridement Subcutaneous -Post Debridement Size (cm) - Length 8.6 -Post Debridement Size (cm) - Width 8.6 -Post Debridement Size (cm) - Depth 0.1 -Total Square Cm 73.96 -Wound/Ulcer Outcome Not Healed -Ulcer Cleansing Rinsed/ Irrigated with Saline -Foul Odor after Cleansing No -Bioengineered Tissue No -Topical Lidocaine (%) 5 -Bleeding Controlled with Pressure -Treatment Response Procedure Tolerated Well #1 BTK Left Stump cluster -Time 11:00 -Correct Patient Yes -Correct Side, Site, Position Yes -Correct Procedure Yes -Procedure Performed Yes -Type of Procedure Debridement -Clinical Debridement Subcutaneous -Post Debridement Size (cm) - Length 1.0 -Post Debridement Size (cm) - Width 1.0 -Post Debridement Size (cm) - Depth 0.1 -Total Square Cm 1.00 -Wound/Ulcer Outcome Not Healed -Ulcer Cleansing Rinsed/ Irrigated with Saline -Foul Odor after Cleansing No -Bioengineered Tissue No -Topical Lidocaine (%) 5 -Bleeding Controlled with Pressure -Treatment Response Procedure Tolerated Well [See Physician Procedure note for Specifics] Pain Scale: 0-10 Numeric [Pain] -Is Patient Pain Free? Yes Musculoskeletal: No Tenderness to Palpation of Joints or Extremities, Muscle Wasting, - - Left below-knee amputation Lymphatic: - - Lymphedema bilateral Neurological: Sensory exam intact to light touch and pain - Lack of epicritic sensation light touch bilateral Psych/Mental Status: Normal Affect, Appropriate Debridement Note Post-Debridement Measurements/Treatment WC - Nurse 2 - General Ulcer CM Notes Start: 08/11/17 09:43 Freq: Status: Active Protocol: Activity Type Activity Date Activity User E-Sign Co-Sign Detail Recorded Client Recorded Date Recorded By Document 08/11/17 10:37 [id number] 08/11/17 11:13 08/11/17 10:37 Wound Center Nurse 2 #14- LT POPLITEAL FOLD -Time 10:55 -Correct Patient Yes -Correct Side, Site, Position Yes -Correct Procedure Yes -Procedure Performed Yes -Type of Procedure Debridement -Clinical Debridement Subcutaneous -Post Debridement Size (cm) - Length 2.0 -Post Debridement Size (cm) - Width 0.7 -Post Debridement Size (cm) - Depth 0.1 -Total Square Cm 1.40 -Wound/Ulcer Outcome Not Healed -Ulcer Cleansing Rinsed/ Irrigated with Saline -Foul Odor after Cleansing No -Bioengineered Tissue No -Topical Lidocaine (%) 5 -Bleeding Controlled with NA -Other popliteal fold not in Dr Fascialexandria scope of practice- keep an eye on -Treatment Response Procedure Tolerated Well #13 R Med Heel -Time 10:56 -Correct Patient Yes -Correct Side, Site, Position Yes -Correct Procedure Yes -Procedure Performed Yes -Type of Procedure Debridement -Clinical Debridement Subcutaneous -Post Debridement Size (cm) - Length 4.6 -Post Debridement Size (cm) - Width 5.3 -Post Debridement Size (cm) - Depth 0.3 -Total Square Cm 24.38 -Wound/Ulcer Outcome Not Healed -Ulcer Cleansing Rinsed/ Irrigated with Saline -Foul Odor after Cleansing No -Bioengineered Tissue No -Topical Lidocaine (%) 5 -Bleeding Controlled with Pressure -Treatment Response Procedure Tolerated Well #12 R LE Cluster -Time 10:57 -Correct Patient Yes -Correct Side, Site, Position Yes -Correct Procedure Yes -Procedure Performed Yes -Post Debridement Size (cm) - Length 0 -Post Debridement Size (cm) - Width 0 -Post Debridement Size (cm) - Depth 0 -Total Square Cm 0 -Wound/Ulcer Outcome Healed- Epithelialized -Ulcer Cleansing Rinsed/ Irrigated with Saline -Foul Odor after Cleansing No -Bioengineered Tissue No -Topical Lidocaine (%) 5 -Bleeding Controlled with NA Pressure -Treatment Response Procedure Tolerated Well #11 RIGHT PROXIMAL LE -Time 10:57 -Correct Patient Yes -Correct Side, Site, Position Yes -Correct Procedure Yes -Procedure Performed Yes -Post Debridement Size (cm) - Length 0 -Post Debridement Size (cm) - Width 0 -Post Debridement Size (cm) - Depth 0 -Total Square Cm 0 -Wound/Ulcer Outcome Healed- Epithelialized -Ulcer Cleansing Rinsed/ Irrigated with Saline -Foul Odor after Cleansing No -Bioengineered Tissue No -Topical Lidocaine (%) 5 -Bleeding Controlled with NA Pressure -Treatment Response Procedure Tolerated Well #10- RIGHT LATERAL -Time 10:58 -Correct Patient Yes -Correct Side, Site, Position Yes -Correct Procedure Yes -Procedure Performed Yes -Type of Procedure Debridement -Clinical Debridement Subcutaneous -Post Debridement Size (cm) - Length 0.9 -Post Debridement Size (cm) - Width 4.4 -Post Debridement Size (cm) - Depth 0.1 -Total Square Cm 3.96 -Wound/Ulcer Outcome Not Healed -Ulcer Cleansing Rinsed/ Irrigated with Saline -Foul Odor after Cleansing No -Bioengineered Tissue No -Topical Lidocaine (%) 5 -Bleeding Controlled with Pressure -Treatment Response Procedure Tolerated Well #9 RIGHt norman -Time 10:58 -Correct Patient Yes -Correct Side, Site, Position Yes -Correct Procedure Yes -Procedure Performed Yes -Type of Procedure Debridement -Clinical Debridement Subcutaneous -Post Debridement Size (cm) - Length 0.9 -Post Debridement Size (cm) - Width 0.9 -Post Debridement Size (cm) - Depth 0.1 -Total Square Cm 0.81 -Wound/Ulcer Outcome Not Healed -Ulcer Cleansing Rinsed/ Irrigated with Saline -Foul Odor after Cleansing No -Bioengineered Tissue No -Topical Lidocaine (%) 5 -Bleeding Controlled with Pressure -Treatment Response Procedure Tolerated Well #6 R Med Lower Leg -Time 10:59 -Correct Patient Yes -Correct Side, Site, Position Yes -Correct Procedure Yes -Procedure Performed Yes -Post Debridement Size (cm) - Length 0 -Post Debridement Size (cm) - Width 0 -Post Debridement Size (cm) - Depth 0 -Total Square Cm 0 -Wound/Ulcer Outcome Healed- Epithelialized -Ulcer Cleansing Rinsed/ Irrigated with Saline -Foul Odor after Cleansing No -Bioengineered Tissue No -Topical Lidocaine (%) 5 -Bleeding Controlled with NA -Treatment Response Procedure Tolerated Well #3 Right Foot-Toes w/Metatarsal Head circumfrential -Time 10:59 -Correct Patient Yes -Correct Side, Site, Position Yes -Correct Procedure Yes -Procedure Performed Yes -Type of Procedure Debridement -Clinical Debridement Subcutaneous -Post Debridement Size (cm) - Length 8.6 -Post Debridement Size (cm) - Width 8.6 -Post Debridement Size (cm) - Depth 0.1 -Total Square Cm 73.96 -Wound/Ulcer Outcome Not Healed -Ulcer Cleansing Rinsed/ Irrigated with Saline -Foul Odor after Cleansing No -Bioengineered Tissue No -Topical Lidocaine (%) 5 -Bleeding Controlled with Pressure -Treatment Response Procedure Tolerated Well #1 BTK Left Stump cluster -Time 11:00 -Correct Patient Yes -Correct Side, Site, Position Yes -Correct Procedure Yes -Procedure Performed Yes -Type of Procedure Debridement -Clinical Debridement Subcutaneous -Post Debridement Size (cm) - Length 1.0 -Post Debridement Size (cm) - Width 1.0 -Post Debridement Size (cm) - Depth 0.1 -Total Square Cm 1.00 -Wound/Ulcer Outcome Not Healed -Ulcer Cleansing Rinsed/ Irrigated with Saline -Foul Odor after Cleansing No -Bioengineered Tissue No -Topical Lidocaine (%) 5 -Bleeding Controlled with Pressure -Treatment Response Procedure Tolerated Well Pain Scale: 0-10 Numeric Is Patient Pain Free? Yes Wound debrided: leg cluster lateral Laterality: Right Wound Grade/Stage: grade 1 Type of Debridement: Excisional debridement Anesthesia Used: 4% Lidocaine Solution Depth: in the subcutaneous layer Percentage of wound debrided: 100 Instrument Used: #15 blade Tissue Removed: fibrous, devitalized subcutaneous, biofilm, slough Severity: Fat Layer Exposed Amount of bleeding with debridement: Mild Bleeding Controlled with: Pressure Patient tolerated procedure well - Additional Wound Wound debrided: leg anterior cluster Laterality: Right Wound Grade/Stage: grade 1 Type of Debridement: Excisional debridement Anesthesia Used: 4% Lidocaine Solution Depth: in the subcutaneous layer Percentage of wound debrided: 100 Instrument Used: #15 blade Tissue Removed: fibrous, devitalized subcutaneous, biofilm, slough Severity: Fat Layer Exposed Amount of bleeding with debridement: Mild Bleeding Controlled with: Pressure Patient tolerated procedure: Patient tolerated procedure well - Additional Wound Wound debrided: foot Laterality: Right - g Wound Grade/Stage: grade 1 Type of Debridement: Excisional debridement Anesthesia Used: 4% Lidocaine Solution Depth: in the subcutaneous layer Percentage of wound debrided: 100 Instrument Used: #15 blade Tissue Removed: fibrous, devitalized subcutaneous, biofilm, slough Severity: Fat Layer Exposed Amount of bleeding with debridement: Mild Bleeding Controlled with: Pressure Patient tolerated procedure: Patient tolerated procedure well - Additional Wound Wound debrided: medial heel Laterality: Right Wound Grade/Stage: grade 3 Type of Debridement: Excisional debridement Anesthesia Used: 4% Lidocaine Solution Depth: in the subcutaneous layer Percentage of wound debrided: 100 Instrument Used: #15 blade, Forceps Tissue Removed: fibrous, devitalized subcutaneous, biofilm, slough Severity: Fat Layer Exposed Amount of bleeding with debridement: Mild Bleeding Controlled with: Pressure - Additional Wound Wound debrided: stump Laterality: Left Wound Grade/Stage: grade 1 Type of Debridement: Excisional debridement Anesthesia Used: 4% Lidocaine Solution Depth: in the subcutaneous layer Percentage of wound debrided: 100 Instrument Used: #15 blade Tissue Removed: fibrous, devitalized subcutaneous, biofilm, slough Severity: Fat Layer Exposed Amount of bleeding with debridement: Mild Bleeding Controlled with: Pressure Patient tolerated procedure: Patient tolerated procedure well Assessment/Plan Active Problems Chronic kidney disease (CKD) (Chronic) Type 2 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with diabetic polyneuropathy (Chronic) Ulcer of right lower extremity with fat layer exposed (Chronic) Chronic ulcer of right foot with fat layer exposed (Chronic) Delayed wound healing (Chronic) Malnutrition (Chronic) Venous insufficiency (Chronic) Lymphedema (Chronic) Edema of both legs (Chronic) Morbid obesity with BMI of 45.0-49.9, adult (Chronic) Assessment: ulcers right foot - subcutaneous tissue exposed. Ulcer left stump -subcutaneous tissue exposed. Ulcers right leg, right heel, left leg -subcutaneous tissue exposed. Blister right leg-no infection, new. Lymphedema. Chronic lower extremity edema and venous insufficiency. Morbid obesity. Type 2 diabetes uncontrolled with peripheral neuropathy. CKD. Hypertension. Left below-knee amputation. Malnutrition. Delayed wound healing. Nonadherence to treatment plan Plan: I reviewed and discussed his case and continued care plan recommendations. His ulcer sites were evaluated as noted in the clinical panel. Debridement was performed as noted in the clinical panel. A dressing was applied today with additional compression dressings. To change all the ulcer sites with Guera with the exception of Santyl application to the right heel. Orders were placed to have this changed every Wednesday and Wednesday with home health and he will continue to have debridement and dressing care at the wound center on Wednesday. His continued moderate level drainage is noted to the right foot. Therefore he was advised to change the right foot ulcers with Guera. I recommend utilizing bilateral 3M to 2L dressing which is applied today involving the right leg and thigh and up to the left thigh as well. It is noted the skin is very friable and he is high risk for continued ulcers. Continue with compression dressings daily. To elevate limbs at rest. To continue to proceed forward use of his lymphedema pump twice daily. He is now considered on complex care due to inability to fully adhere to the treatment program. CircAid thigh-high were ordered for the right lower extremity; he understands this is a graduated compression device. It is noted he had previous vascular surgery intervention. I reviewed his case verbally with Dr. Solis who suspects increased perfusion is occurring status post procedure anticipates this is resolved and he has demonstrated significant improvement the last couple of weeks. He had stents placed to improve arterial perfusion. He will follow-up with him. His noninvasive vascular arterial studies were reviewed and his COY is 1.05 on the right lower extremity. This will be monitored. He has recently treated with IV antibiotics and had an infection workup. His localized cellulitis has resolved. His MRI obtained was negative for osteomyelitis. Serial lab trends and clinical improvement will be monitored close. To continue with nutritional supplementation, Glucerna. His diabetes is uncontrolled and he understands he is at risk for limb loss. To continue with proper glycemic control medical management to optimize healing. I answered all his questions. To return to clinic in 1 week or call sooner if there are any problems.
[2017-08-18 10:08] VITALS: BP 139/56; PULSE 86; RESP 16; TEMP 36.3; BMI 39.9
--- NOTE | 2017-08-18 13:42 | PN.PCM_ITS ---
(1) Ulcer of right lower extremity with fat layer exposed Status: Chronic Current Visit: Yes Code(s): L97.912 - Non-pressure chronic ulcer of unspecified part of right lower leg with fat layer exposed (2) Chronic kidney disease (CKD) Status: Chronic Current Visit: Yes Qualifiers: Code(s): N18.9 - Chronic kidney disease, unspecified (3) Type 2 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with diabetic polyneuropathy Status: Chronic Current Visit: Yes Code(s): E11.42 - Type 2 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with diabetic polyneuropathy (4) Chronic ulcer of right foot with fat layer exposed Status: Chronic Current Visit: Yes Code(s): L97.512 - Non-pressure chronic ulcer of other part of right foot with fat layer exposed (5) Delayed wound healing Status: Chronic Current Visit: Yes Code(s): T14.8 - Other injury of unspecified body region (6) Malnutrition Status: Chronic Current Visit: Yes Code(s): E46 - Unspecified protein- calorie malnutrition (7) Venous insufficiency Status: Chronic Current Visit: Yes (8) Lymphedema Status: Chronic Current Visit: Yes Code(s): I89.0 - Lymphedema, not elsewhere classified (9) Edema of both legs Status: Chronic Current Visit: Yes Code(s): R60.0 - Localized edema (10) Morbid obesity with BMI of 45.0-49.9, adult Status: Chronic Current Visit: Yes Code(s): E66.01 - Morbid (severe) obesity due to excess calories; Z68.42 - Body mass index (BMI) 45.0-49.9, adult (11) Ulcer of left lower extremity with fat layer exposed Status: Chronic Current Visit: Yes Code(s): L97.922 - Non-pressure chronic ulcer of unspecified part of left lower leg with fat layer exposed Type of Wound Date of Service: 08/18/17 Chief Complaint: right foot ulcer. Right leg ulcer. Left leg ulcer History of Wound: 57-year-old white male returns to clinic for follow-up of bilateral leg ulcers and right foot ulcers. He denies fever, chill, nausea, vomiting, loss of appetite. He has continued lower extremity swelling has been recently better controlled. Uses compression pump once daily this past week. He relates he completed his antibiotic course as advised by infectious disease. Progress of Wound: Stable - Physical Exam Vital Signs Temp Pulse Resp BP 97.3 F L 86 16 139/56 H 08/18/17 10:08 08/18/17 10:08 08/18/17 10:08 08/18/17 10:08 General: Alert, Oriented x3, Cooperative Extremities: No cyanosis, Capillary Refill Less than 3 Seconds, No Calf Tenderness - Negative Harry and Badillo right, Diminished Peripheral Pulses, Edema Skin: Ulcer/ Wound - No purulence, no erythema, no streaking. Epithelialization noted to bilateral leg ulcers. Chronic noninfected right distal foot ulcers noted. The right heel ulcer has continued liquefied tissue with exposed adipose and muscle tissue. There is no probe to bone exposed bone noted. The odor has significantly decreased and there is no erythema or purulence on expression. Bilateral skin is peeling and lichenified Wound Measurements and Assessment WC - Nurse 1 - General Ulcer Measurement Start: 08/11/17 09:43 Freq: Status: Active Protocol: Activity Type Activity Date Activity User E-Sign Co-Sign Detail Recorded Client Recorded Date Recorded By Document 08/18/17 10:08 [facility] [id number] 08/18/17 10:29 [facility] 08/18/17 10:08 Wound Center Nurse 1 [Ulcer Assessment] #13 R Med Heel -Combined with other wound No -Current Size (cm) - Length 3.1 -Current Size (cm) - Width 4.8 -Current Size (cm) - Depth 1.2 -Total Square Cm 14.88 -Photo Taken No -Epithelialization None Present -Tunneling No -Undermining/Tunneling No -Exudate Amt Medium (34-66%) -Exudate Type Serosanguineous -Wound Margin Distinct, Outline Attached -Granulation Amt Small (1-33%) -Granulation Quality Red -Slough/Fibrin Yes -Necrosis Amt Large (67-100%) -Necrotic Tissue Type Adherent Slough -Texture (Martha-wound Skin Appearance) Scarring -Moisture (Martha-wound Skin Appearance Maceration ) Dry/Scaly -Color (Martha-wound Skin Appearance) Palor -Temperature (Martha-wound Skin No Abnormality Appearance) (Pt Warm) -Tenderness on Palpation (Martha-wound No Skin Appearance) -Ulcer Cleansing Wound Cleanser -Foul Odor after Cleansing Yes -Anesthetic Used 4% Lidocaine Solution #10- RIGHT LATERAL -Combined with other wound No -Current Size (cm) - Length 0.3 -Current Size (cm) - Width 0.3 -Current Size (cm) - Depth 0.1 -Total Square Cm 0.09 -Photo Taken No -Epithelialization Small 1-33% -Tunneling No -Undermining/Tunneling No -Exudate Amt Small (1-33%) -Exudate Type Serous -Wound Margin Distinct, Outline Attached -Granulation Amt Large (67-100%) -Granulation Quality [place] -Slough/Fibrin No -Necrosis Amt None Present (0 %) -Structure Exposed N/A -Texture (Martha-wound Skin Appearance) Scarring -Moisture (Martha-wound Skin Appearance Maceration ) Weeping Dry/Scaly -Color (Martha-wound Skin Appearance) Assessed -Temperature (Martha-wound Skin No Abnormality Appearance) (Pt Warm) -Tenderness on Palpation (Martha-wound No Skin Appearance) -Ulcer Cleansing Wound Cleanser -Foul Odor after Cleansing No -Anesthetic Used 4% Lidocaine Solution #9 RIGHt norman -Combined with other wound No -Current Size (cm) - Length 1 -Current Size (cm) - Width 0.7 -Current Size (cm) - Depth 0.1 -Total Square Cm 0.7 -Photo Taken No -Epithelialization None Present -Tunneling No -Undermining/Tunneling No -Exudate Amt None Present (0 %) -Granulation Amt None Present (0 %) -Slough/Fibrin Yes -Necrosis Amt Large (67-100%) -Necrotic Tissue Type Adherent Slough -Structure Exposed N/A -Texture (Martha-wound Skin Appearance) Scarring -Moisture (Martha-wound Skin Appearance Dry/Scaly ) -Color (Martha-wound Skin Appearance) Assessed -Temperature (Martha-wound Skin No Abnormality Appearance) (Pt Warm) -Tenderness on Palpation (Martha-wound No Skin Appearance) -Ulcer Cleansing Wound Cleanser -Foul Odor after Cleansing Yes, Due to Product Use -Anesthetic Used 4% Lidocaine Solution #3 Right Foot-Toes w/Metatarsal Head circumfrential -Combined with other wound No -Current Size (cm) - Length 11 -Current Size (cm) - Width 6.2 -Current Size (cm) - Depth 0.1 -Total Square Cm 68.2 -Photo Taken No -Epithelialization None Present -Tunneling No -Undermining/Tunneling No -Exudate Amt Large (67-100%) -Exudate Type Serous -Wound Margin Distinct, Outline Attached -Granulation Amt Large (67-100%) -Granulation Quality [place] -Slough/Fibrin Yes -Necrosis Amt Medium (34-66%) -Necrotic Tissue Type Adherent Slough -Structure Exposed None/Limited to Skin Breakdown -Texture (Martha-wound Skin Appearance) Localized Edema Scarring -Moisture (Martha-wound Skin Appearance Maceration ) Weeping -Color (Martha-wound Skin Appearance) Erythema Palor -Temperature (Martha-wound Skin No Abnormality Appearance) (Pt Warm) -Tenderness on Palpation (Martha-wound No Skin Appearance) -Ulcer Cleansing Wound Cleanser -Foul Odor after Cleansing No -Anesthetic Used 4% Lidocaine Solution #1 BTK Left Stump cluster -Combined with other wound No -Current Size (cm) - Length 6 -Current Size (cm) - Width 6 -Current Size (cm) - Depth 0.1 -Total Square Cm 36 -Photo Taken No -Epithelialization Small 1-33% -Tunneling No -Undermining/Tunneling No -Exudate Amt Medium (34-66%) -Exudate Type Serous -Granulation Amt Large (67-100%) -Granulation Quality [place] -Slough/Fibrin No -Structure Exposed None/Limited to Skin Breakdown -Texture (Martha-wound Skin Appearance) Scarring -Moisture (Martha-wound Skin Appearance Maceration ) Weeping -Color (Martha-wound Skin Appearance) Erythema -Temperature (Martha-wound Skin No Abnormality Appearance) (Pt Warm) -Tenderness on Palpation (Martha-wound No Skin Appearance) -Ulcer Cleansing Wound Cleanser -Foul Odor after Cleansing No -Anesthetic Used 4% Lidocaine Solution [Edema Assessment] -Lower Limb Edema Present Yes -Right Calf (cm) 48.5 -Right Ankle (cm) 29.5 -Left Calf (cm) 39 WC - Nurse 2 - General Ulcer CM Notes Start: 08/11/17 09:43 Freq: Status: Active Protocol: Activity Type Activity Date Activity User E-Sign Co-Sign Detail Recorded Client Recorded Date Recorded By Document 08/18/17 10:47 TM [id number] 08/18/17 11:06 TM 08/18/17 10:47 Wound Center Nurse 2 [Procedure/Treatment] #13 R Med Heel -Time 11:00 -Correct Patient Yes -Correct Side, Site, Position Yes -Correct Procedure Yes -Procedure Performed Yes -Type of Procedure Debridement -Clinical Debridement Muscle -Post Debridement Size (cm) - Length 3.2 -Post Debridement Size (cm) - Width 4.9 -Post Debridement Size (cm) - Depth 1.2 -Total Square Cm 15.68 -Wound/Ulcer Outcome Not Healed -Ulcer Cleansing Rinsed/ Irrigated with Saline -Foul Odor after Cleansing No -Bioengineered Tissue No -Topical Lidocaine (%) 4 -Bleeding Controlled with Pressure -Treatment Response Procedure Tolerated Well #10- RIGHT LATERAL -Time 11:00 -Correct Patient Yes -Correct Side, Site, Position Yes -Correct Procedure Yes -Procedure Performed Yes -Type of Procedure Debridement -Clinical Debridement Subcutaneous -Post Debridement Size (cm) - Length 0.4 -Post Debridement Size (cm) - Width 0.4 -Post Debridement Size (cm) - Depth 0.1 -Total Square Cm 0.16 -Wound/Ulcer Outcome Not Healed -Ulcer Cleansing Rinsed/ Irrigated with Saline -Foul Odor after Cleansing No -Bioengineered Tissue No -Topical Lidocaine (%) 4 -Bleeding Controlled with Pressure -Treatment Response Procedure Tolerated Well #9 RIGHt norman -Time 11:04 -Correct Patient Yes -Correct Side, Site, Position Yes -Correct Procedure Yes -Procedure Performed Yes -Type of Procedure Debridement -Clinical Debridement Subcutaneous -Post Debridement Size (cm) - Length 1.1 -Post Debridement Size (cm) - Width 0.8 -Post Debridement Size (cm) - Depth 0.1 -Total Square Cm 0.88 -Wound/Ulcer Outcome Not Healed -Ulcer Cleansing Rinsed/ Irrigated with Saline -Foul Odor after Cleansing No -Bioengineered Tissue No -Topical Lidocaine (%) 4 -Bleeding Controlled with Pressure -Treatment Response Procedure Tolerated Well #3 Right Foot-Toes w/Metatarsal Head circumfrential -Time 11:04 -Correct Patient Yes -Correct Side, Site, Position Yes -Correct Procedure Yes -Procedure Performed Yes -Type of Procedure Debridement -Clinical Debridement Subcutaneous -Post Debridement Size (cm) - Length 11.1 -Post Debridement Size (cm) - Width 6.3 -Post Debridement Size (cm) - Depth 0.1 -Total Square Cm 69.93 -Wound/Ulcer Outcome Not Healed -Ulcer Cleansing Rinsed/ Irrigated with Saline -Foul Odor after Cleansing No -Bioengineered Tissue No -Topical Lidocaine (%) 4 -Bleeding Controlled with Pressure -Treatment Response Procedure Tolerated Well #1 BTK Left Stump cluster -Time 11:05 -Correct Patient Yes -Correct Side, Site, Position Yes -Correct Procedure Yes -Procedure Performed Yes -Type of Procedure Debridement -Clinical Debridement Subcutaneous -Post Debridement Size (cm) - Length 6.1 -Post Debridement Size (cm) - Width 6.1 -Post Debridement Size (cm) - Depth 0.1 -Total Square Cm 37.21 -Wound/Ulcer Outcome Not Healed -Ulcer Cleansing Rinsed/ Irrigated with Saline -Foul Odor after Cleansing No -Bioengineered Tissue No -Topical Lidocaine (%) 4 -Bleeding Controlled with Pressure -Treatment Response Procedure Tolerated Well [See Physician Procedure note for Specifics] Pain Scale: 0-10 Numeric [Pain] -Is Patient Pain Free? Yes Musculoskeletal: No Tenderness to Palpation of Joints or Extremities, Muscle Wasting, - - Left below-knee amputation Neurological: - - Lack of epicritic sensation light touch bilateral lower extremities Psych/Mental Status: Normal Affect, Appropriate Debridement Note Post-Debridement Measurements/Treatment WC - Nurse 2 - General Ulcer CM Notes Start: 08/11/17 09:43 Freq: Status: Active Protocol: Activity Type Activity Date Activity User E-Sign Co-Sign Detail Recorded Client Recorded Date Recorded By Document 08/11/17 10:37 [id number] 08/11/17 11:13 TM Document 08/18/17 10:47 [id number] 08/18/17 11:06 TM 08/11/17 08/18/17 10:37 10:47 Wound Center Nurse 2 #14- LT POPLITEAL FOLD -Time 10:55 -Correct Patient Yes -Correct Side, Site, Position Yes -Correct Procedure Yes -Procedure Performed Yes -Type of Procedure Debridement -Clinical Debridement Subcutaneous -Post Debridement Size (cm) - Length 2.0 -Post Debridement Size (cm) - Width 0.7 -Post Debridement Size (cm) - Depth 0.1 -Total Square Cm 1.40 -Wound/Ulcer Outcome Not Healed -Ulcer Cleansing Rinsed/ Irrigated with Saline -Foul Odor after Cleansing No -Bioengineered Tissue No -Topical Lidocaine (%) 5 -Bleeding Controlled with NA -Other popliteal fold not in Dr Bell scope of practice- keep an eye on -Treatment Response Procedure Tolerated Well #13 R Med Heel -Time 10:56 11:00 -Correct Patient Yes Yes -Correct Side, Site, Position Yes Yes -Correct Procedure Yes Yes -Procedure Performed Yes Yes -Type of Procedure Debridement Debridement -Clinical Debridement Subcutaneous Muscle -Post Debridement Size (cm) - Length 4.6 3.2 -Post Debridement Size (cm) - Width 5.3 4.9 -Post Debridement Size (cm) - Depth 0.3 1.2 -Total Square Cm 24.38 15.68 -Wound/Ulcer Outcome Not Healed Not Healed -Ulcer Cleansing Rinsed/ Rinsed/ Irrigated with Irrigated with Saline Saline -Foul Odor after Cleansing No No -Bioengineered Tissue No No -Topical Lidocaine (%) 5 4 -Bleeding Controlled with Pressure Pressure -Treatment Response Procedure Procedure Tolerated Well Tolerated Well #12 R LE Cluster -Time 10:57 -Correct Patient Yes -Correct Side, Site, Position Yes -Correct Procedure Yes -Procedure Performed Yes -Post Debridement Size (cm) - Length 0 -Post Debridement Size (cm) - Width 0 -Post Debridement Size (cm) - Depth 0 -Total Square Cm 0 -Wound/Ulcer Outcome Healed- Epithelialized -Ulcer Cleansing Rinsed/ Irrigated with Saline -Foul Odor after Cleansing No -Bioengineered Tissue No -Topical Lidocaine (%) 5 -Bleeding Controlled with NA Pressure -Treatment Response Procedure Tolerated Well #11 RIGHT PROXIMAL LE -Time 10:57 -Correct Patient Yes -Correct Side, Site, Position Yes -Correct Procedure Yes -Procedure Performed Yes -Post Debridement Size (cm) - Length 0 -Post Debridement Size (cm) - Width 0 -Post Debridement Size (cm) - Depth 0 -Total Square Cm 0 -Wound/Ulcer Outcome Healed- Epithelialized -Ulcer Cleansing Rinsed/ Irrigated with Saline -Foul Odor after Cleansing No -Bioengineered Tissue No -Topical Lidocaine (%) 5 -Bleeding Controlled with NA Pressure -Treatment Response Procedure Tolerated Well #10- RIGHT LATERAL -Time 10:58 11:00 -Correct Patient Yes Yes -Correct Side, Site, Position Yes Yes -Correct Procedure Yes Yes -Procedure Performed Yes Yes -Type of Procedure Debridement Debridement -Clinical Debridement Subcutaneous Subcutaneous -Post Debridement Size (cm) - Length 0.9 0.4 -Post Debridement Size (cm) - Width 4.4 0.4 -Post Debridement Size (cm) - Depth 0.1 0.1 -Total Square Cm 3.96 0.16 -Wound/Ulcer Outcome Not Healed Not Healed -Ulcer Cleansing Rinsed/ Rinsed/ Irrigated with Irrigated with Saline Saline -Foul Odor after Cleansing No No -Bioengineered Tissue No No -Topical Lidocaine (%) 5 4 -Bleeding Controlled with Pressure Pressure -Treatment Response Procedure Procedure Tolerated Well Tolerated Well #9 RIGHt norman -Time 10:58 11:04 -Correct Patient Yes Yes -Correct Side, Site, Position Yes Yes -Correct Procedure Yes Yes -Procedure Performed Yes Yes -Type of Procedure Debridement Debridement -Clinical Debridement Subcutaneous Subcutaneous -Post Debridement Size (cm) - Length 0.9 1.1 -Post Debridement Size (cm) - Width 0.9 0.8 -Post Debridement Size (cm) - Depth 0.1 0.1 -Total Square Cm 0.81 0.88 -Wound/Ulcer Outcome Not Healed Not Healed -Ulcer Cleansing Rinsed/ Rinsed/ Irrigated with Irrigated with Saline Saline -Foul Odor after Cleansing No No -Bioengineered Tissue No No -Topical Lidocaine (%) 5 4 -Bleeding Controlled with Pressure Pressure -Treatment Response Procedure Procedure Tolerated Well Tolerated Well #6 R Med Lower Leg -Time 10:59 -Correct Patient Yes -Correct Side, Site, Position Yes -Correct Procedure Yes -Procedure Performed Yes -Post Debridement Size (cm) - Length 0 -Post Debridement Size (cm) - Width 0 -Post Debridement Size (cm) - Depth 0 -Total Square Cm 0 -Wound/Ulcer Outcome Healed- Epithelialized -Ulcer Cleansing Rinsed/ Irrigated with Saline -Foul Odor after Cleansing No -Bioengineered Tissue No -Topical Lidocaine (%) 5 -Bleeding Controlled with NA -Treatment Response Procedure Tolerated Well #3 Right Foot-Toes w/Metatarsal Head circumfrential -Time 10:59 11:04 -Correct Patient Yes Yes -Correct Side, Site, Position Yes Yes -Correct Procedure Yes Yes -Procedure Performed Yes Yes -Type of Procedure Debridement Debridement -Clinical Debridement Subcutaneous Subcutaneous -Post Debridement Size (cm) - Length 8.6 11.1 -Post Debridement Size (cm) - Width 8.6 6.3 -Post Debridement Size (cm) - Depth 0.1 0.1 -Total Square Cm 73.96 69.93 -Wound/Ulcer Outcome Not Healed Not Healed -Ulcer Cleansing Rinsed/ Rinsed/ Irrigated with Irrigated with Saline Saline -Foul Odor after Cleansing No No -Bioengineered Tissue No No -Topical Lidocaine (%) 5 4 -Bleeding Controlled with Pressure Pressure -Treatment Response Procedure Procedure Tolerated Well Tolerated Well #1 BTK Left Stump cluster -Time 11:00 11:05 -Correct Patient Yes Yes -Correct Side, Site, Position Yes Yes -Correct Procedure Yes Yes -Procedure Performed Yes Yes -Type of Procedure Debridement Debridement -Clinical Debridement Subcutaneous Subcutaneous -Post Debridement Size (cm) - Length 1.0 6.1 -Post Debridement Size (cm) - Width 1.0 6.1 -Post Debridement Size (cm) - Depth 0.1 0.1 -Total Square Cm 1.00 37.21 -Wound/Ulcer Outcome Not Healed Not Healed -Ulcer Cleansing Rinsed/ Rinsed/ Irrigated with Irrigated with Saline Saline -Foul Odor after Cleansing No No -Bioengineered Tissue No No -Topical Lidocaine (%) 5 4 -Bleeding Controlled with Pressure Pressure -Treatment Response Procedure Procedure Tolerated Well Tolerated Well Pain Scale: 0-10 Numeric Is Patient Pain Free? Yes Yes Wound debrided: heel Laterality: Right Wound Grade/Stage: grade 3 Type of Debridement: Excisional debridement Anesthesia Used: 4% Lidocaine Solution Depth: in the subcutaneous layer Percentage of wound debrided: 100 Instrument Used: #15 blade, Forceps Tissue Removed: fibrous, devitalized subcutaneous, biofilm, slough, muscle Severity: Fat Layer Exposed Amount of bleeding with debridement: Mild Bleeding Controlled with: Pressure Patient tolerated procedure well - Additional Wound Wound debrided: forefoot Laterality: Right Wound Grade/Stage: grade 1 Type of Debridement: Excisional debridement Anesthesia Used: 4% Lidocaine Solution Depth: in the subcutaneous layer Percentage of wound debrided: 100 Instrument Used: #15 blade Tissue Removed: fibrous, devitalized subcutaneous, biofilm, slough Severity: Fat Layer Exposed Amount of bleeding with debridement: Mild Bleeding Controlled with: Pressure Patient tolerated procedure: Patient tolerated procedure well - Additional Wound Wound debrided: leg Laterality: Right Wound Grade/Stage: grade 1 Type of Debridement: Excisional debridement Anesthesia Used: 4% Lidocaine Solution Depth: in the subcutaneous layer Percentage of wound debrided: 100 Instrument Used: #15 blade Tissue Removed: fibrous, devitalized subcutaneous, biofilm, slough Severity: Fat Layer Exposed Amount of bleeding with debridement: Mild Bleeding Controlled with: Pressure Patient tolerated procedure: Patient tolerated procedure well - Additional Wound Wound debrided: stump site Laterality: Left Wound Grade/Stage: grade 1 Type of Debridement: Excisional debridement Anesthesia Used: 4% Lidocaine Solution Depth: in the subcutaneous layer Percentage of wound debrided: 100 Instrument Used: #15 blade Tissue Removed: fibrous, devitalized subcutaneous, biofilm, slough Severity: Fat Layer Exposed Amount of bleeding with debridement: Mild Bleeding Controlled with: Pressure Patient tolerated procedure: Patient tolerated procedure well Assessment/Plan Active Problems Ulcer of left lower extremity with fat layer exposed (Chronic) Chronic kidney disease (CKD) (Chronic) Type 2 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with diabetic polyneuropathy (Chronic) Ulcer of right lower extremity with fat layer exposed (Chronic) Chronic ulcer of right foot with fat layer exposed (Chronic) Delayed wound healing (Chronic) Malnutrition (Chronic) Venous insufficiency (Chronic) Lymphedema (Chronic) Edema of both legs (Chronic) Morbid obesity with BMI of 45.0-49.9, adult (Chronic) Assessment: ulcers right foot - subcutaneous tissue exposed. Ulcer left stump - subcutaneous tissue exposed. Ulcers right leg, left leg -subcutaneous tissue exposed. right heel ulcer muscle involved and exposedv. Lymphedema. Chronic lower extremity edema and venous insufficiency. Morbid obesity. Type 2 diabetes uncontrolled with peripheral neuropathy. CKD. Hypertension. Left below-knee amputation. Malnutrition. Delayed wound healing. Nonadherence to treatment plan Plan: I reviewed and discussed his case and continued care plan recommendations. His ulcer sites were evaluated as noted in the clinical panel. Debridement was performed as noted in the clinical panel. A dressing was applied today with additional compression dressings. To change all the ulcer sites with Guera with the exception of Santyl application to the right heel. Orders were placed to have this changed every Wednesday and Wednesday with home health and he will continue to have debridement and dressing care at the wound center on Wednesday. His continued moderate level drainage is noted to the right foot. Therefore he was advised to change the right foot ulcers with Guera. I recommend utilizing bilateral 3M to 2L dressing which is applied today involving the right leg and thigh and up to the left thigh as well. It is noted the skin is very friable and he is high risk for continued ulcers. Continue with compression dressings daily. To elevate limbs at rest. To continue to proceed forward use of his lymphedema pump twice daily. He is now considered on complex care due to inability to fully adhere to the treatment program. CircAid thigh-high were ordered for the right lower extremity; he understands this is a graduated compression device. It is noted he had previous vascular surgery intervention. He had stents placed to improve arterial perfusion. He will follow-up with him as needed at this point. His noninvasive vascular arterial studies were reviewed and his COY is 1.05 on the right lower extremity. This will be monitored. He has recently treated with IV antibiotics and had an infection workup. His localized cellulitis has resolved. His MRI obtained was negative for osteomyelitis. Serial lab trends and clinical improvement will be monitored close due to the clinical depth of this ulcer. Pending response to treatment, he understands additional or repeat work up may be warranted. To continue with nutritional supplementation, Glucerna. His diabetes is uncontrolled and he understands he is at risk for limb loss. To continue with proper glycemic control medical management to optimize healing. I answered all his questions. To return to clinic in 1 week or call sooner if there are any problems. He has a chronic ulcer proximal to the tibial tuberosity which is out of my scope of practice that he is concerned about today. He will see another provider for consultation of this condition. I am still available for intermittent foot debridements and surgical bone biopsy/ debridement if clinically indicated. This was discussed at length with vesna today.
[2017-08-27 12:07] VITALS: BP 146/58; PULSE 81; RESP 16; TEMP 36.2; BMI 39.9
[2017-09-01 10:39] VITALS: BP 149/56; PULSE 84; RESP 16; TEMP 37; BMI 39.9
--- NOTE | 2017-09-01 12:10 | PN.PCM_ITS ---
(1) Ulcer of right lower extremity with fat layer exposed Status: Chronic Current Visit: Yes Code(s): L97.912 - Non-pressure chronic ulcer of unspecified part of right lower leg with fat layer exposed (2) Chronic kidney disease (CKD) Status: Chronic Current Visit: Yes Qualifiers: Code(s): N18.9 - Chronic kidney disease, unspecified (3) Type 2 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with diabetic polyneuropathy Status: Chronic Current Visit: Yes Code(s): E11.42 - Type 2 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with diabetic polyneuropathy (4) Chronic ulcer of right foot with fat layer exposed Status: Chronic Current Visit: Yes Code(s): L97.512 - Non-pressure chronic ulcer of other part of right foot with fat layer exposed (5) Delayed wound healing Status: Chronic Current Visit: Yes Code(s): T14.8 - Other injury of unspecified body region (6) Malnutrition Status: Chronic Current Visit: Yes Code(s): E46 - Unspecified protein- calorie malnutrition (7) Venous insufficiency Status: Chronic Current Visit: Yes (8) Lymphedema Status: Chronic Current Visit: Yes Code(s): I89.0 - Lymphedema, not elsewhere classified (9) Edema of both legs Status: Chronic Current Visit: Yes Code(s): R60.0 - Localized edema (10) Morbid obesity with BMI of 45.0-49.9, adult Status: Chronic Current Visit: Yes Code(s): E66.01 - Morbid (severe) obesity due to excess calories; Z68.42 - Body mass index (BMI) 45.0-49.9, adult (11) Ulcer of left lower extremity with fat layer exposed Status: Chronic Current Visit: Yes Code(s): L97.922 - Non-pressure chronic ulcer of unspecified part of left lower leg with fat layer exposed Type of Wound Date of Service: 09/01/17 Chief Complaint: right foot ulcer. Right leg ulcer. Left leg ulcer History of Wound: 57-year-old white male returns to clinic for follow-up of bilateral leg ulcers and right foot ulcers. He denies fever, chill, nausea, vomiting, loss of appetite. He has continued lower extremity swelling has been recently better controlled. He relates return of odor and increased drainage to the right heel this past week concerned of infection. Progress of Wound: Stable ulcers and distal right foot ulcer. Worsening right heel status - Physical Exam Vital Signs Temp Pulse Resp BP 98.6 F 84 16 149/56 H 09/01/17 10:39 09/01/17 10:39 09/01/17 10:39 09/01/17 10:39 General: Alert, Oriented x3, Cooperative HEENT: Atraumatic Extremities: No cyanosis, Capillary Refill Less than 3 Seconds, No Calf Tenderness - Harry and Badillo sign right lower extremity, Diminished Peripheral Pulses, Edema, - - Below-knee amputation left Skin: Ulcer/ Wound - Left leg right leg and right forefoot ulcers do not have any maceration, odor, infection, exposed deep capsular and bone tissue. The right heel ulcer does have progressive fibrous, eschar, odor, and devitalized subcutaneous, muscle, and fascia tissue. The bone is not directly visualized or probe. There is increased edema around the site this is worsened. The odor has decreased after aggressive debridement Wound Measurements and Assessment WC - Nurse 1 - General Ulcer Measurement Start: 08/11/17 09:43 Freq: Status: Active Protocol: Activity Type Activity Date Activity User E-Sign Co-Sign Detail Recorded Client Recorded Date Recorded By Document 09/01/17 10:39 [facility] [id number] 09/01/17 11:08 [facility] 09/01/17 10:39 Wound Center Nurse 1 [Ulcer Assessment] #13 R Med Heel -Combined with other wound No -Current Size (cm) - Length 4.8 -Current Size (cm) - Width 6.7 -Current Size (cm) - Depth 1.4 -Total Square Cm 32.16 -Photo Taken No -Epithelialization None Present -Tunneling No -Undermining/Tunneling No -Circular Undermining No -Exudate Amt Large (67-100%) -Exudate Type Serosanguineous -Wound Margin Distinct, Outline Attached -Granulation Amt None Present (0 %) -Slough/Fibrin Yes -Necrosis Amt Large (67-100%) -Necrotic Tissue Type Eschar -Structure Exposed N/A -Texture (Martha-wound Skin Appearance) Callus -Moisture (Martha-wound Skin Appearance Maceration ) Weeping Dry/Scaly -Color (Martha-wound Skin Appearance) Erythema -Temperature (Martha-wound Skin No Abnormality Appearance) (Pt Warm) -Tenderness on Palpation (Martha-wound No Skin Appearance) -Ulcer Cleansing Wound Cleanser -Foul Odor after Cleansing No -Anesthetic Used 4% Lidocaine Solution #10- RIGHT LATERAL -Combined with other wound No -Current Size (cm) - Length 9.7 -Current Size (cm) - Width 11 -Current Size (cm) - Depth 0.1 -Total Square Cm 106.7 -Photo Taken No -Epithelialization Small 1-33% -Tunneling No -Undermining/Tunneling No -Exudate Amt Small (1-33%) -Exudate Type Serous -Wound Margin Distinct, Outline Attached -Granulation Amt Large (67-100%) -Granulation Quality Pale [place] -Slough/Fibrin No -Necrosis Amt None Present (0 %) -Structure Exposed None/Limited to Skin Breakdown -Texture (Martha-wound Skin Appearance) Scarring -Moisture (Martha-wound Skin Appearance Maceration ) Dry/Scaly -Color (Martha-wound Skin Appearance) Palor -Temperature (Martha-wound Skin No Abnormality Appearance) (Pt Warm) -Tenderness on Palpation (Martha-wound No Skin Appearance) -Ulcer Cleansing Rinsed/ Irrigated with Saline -Foul Odor after Cleansing No -Anesthetic Used 4% Lidocaine Solution #9 RIGHt norman -Combined with other wound No -Current Size (cm) - Length 12.3 -Current Size (cm) - Width 4.4 -Current Size (cm) - Depth 0.1 -Total Square Cm 54.12 -Photo Taken No -Epithelialization Small 1-33% -Tunneling No -Undermining/Tunneling No -Circular Undermining No -Exudate Amt Small (1-33%) -Exudate Type Serous -Wound Margin Distinct, Outline Attached -Granulation Amt Large (67-100%) -Granulation Quality Pale [place] -Slough/Fibrin No -Necrosis Amt None Present (0 %) -Structure Exposed None/Limited to Skin Breakdown -Texture (Martha-wound Skin Appearance) Scarring -Moisture (Martha-wound Skin Appearance Maceration ) Weeping Dry/Scaly -Color (Martha-wound Skin Appearance) Erythema -Temperature (Martha-wound Skin No Abnormality Appearance) (Pt Warm) -Tenderness on Palpation (Martha-wound No Skin Appearance) -Ulcer Cleansing Wound Cleanser -Foul Odor after Cleansing No -Anesthetic Used 4% Lidocaine Solution #3 Right Foot-Toes w/Metatarsal Head circumfrential -Combined with other wound No -Current Size (cm) - Length 14.9 -Current Size (cm) - Width 10.5 -Current Size (cm) - Depth 0.1 -Total Square Cm 156.45 -Photo Taken No -Epithelialization None Present -Tunneling No -Undermining/Tunneling No -Circular Undermining No -Exudate Amt Large (67-100%) -Exudate Type Serosanguineous -Wound Margin Distinct, Outline Attached -Granulation Amt Large (67-100%) -Granulation Quality Pale [place] -Slough/Fibrin No -Necrosis Amt None Present (0 %) -Structure Exposed None/Limited to Skin Breakdown -Texture (Martha-wound Skin Appearance) Scarring -Moisture (Martha-wound Skin Appearance Maceration ) Weeping Dry/Scaly -Color (Martha-wound Skin Appearance) Erythema -Temperature (Martha-wound Skin No Abnormality Appearance) (Pt Warm) -Tenderness on Palpation (Martha-wound No Skin Appearance) -Ulcer Cleansing Wound Cleanser -Foul Odor after Cleansing No -Anesthetic Used 4% Lidocaine Solution #1 BTK Left Stump cluster -Combined with other wound No -Current Size (cm) - Length 3.6 -Current Size (cm) - Width 6.6 -Current Size (cm) - Depth 0.1 -Total Square Cm 23.76 -Photo Taken No -Epithelialization Small 1-33% -Tunneling No -Undermining/Tunneling No -Circular Undermining No -Exudate Amt Small (1-33%) -Exudate Type Serous -Wound Margin Distinct, Outline Attached -Granulation Amt Large (67-100%) -Granulation Quality [place] -Slough/Fibrin No -Necrosis Amt None Present (0 %) -Structure Exposed None/Limited to Skin Breakdown -Texture (Martha-wound Skin Appearance) Scarring -Moisture (Martha-wound Skin Appearance Maceration ) Weeping Dry/Scaly -Color (Martha-wound Skin Appearance) Erythema -Temperature (Martha-wound Skin No Abnormality Appearance) (Pt Warm) -Tenderness on Palpation (Martha-wound No Skin Appearance) -Ulcer Cleansing Wound Cleanser -Foul Odor after Cleansing No -Anesthetic Used 4% Lidocaine Solution [Edema Assessment] -Lower Limb Edema Present Yes -Right Calf (cm) 48.7 -Right Ankle (cm) 29.5 -Left Calf (cm) 39 WC - Nurse 2 - General Ulcer CM Notes Start: 08/11/17 09:43 Freq: Status: Active Protocol: Activity Type Activity Date Activity User E-Sign Co-Sign Detail Recorded Client Recorded Date Recorded By Document 09/01/17 11:53 [facility]UP [id number] 09/01/17 11:55 [facility] 09/01/17 11:53 Wound Center Nurse 2 [Procedure/Treatment] #13 R Med Heel -Time 11:53 -Correct Patient Yes -Correct Side, Site, Position Yes -Correct Procedure Yes -Procedure Performed Yes -Type of Procedure Debridement -Clinical Debridement Muscle -Post Debridement Size (cm) - Length 5 -Post Debridement Size (cm) - Width 6.8 -Post Debridement Size (cm) - Depth 1.6 -Total Square Cm 34.0 -Wound/Ulcer Outcome Not Healed -Ulcer Cleansing Rinsed/ Irrigated with Saline -Foul Odor after Cleansing No -Bioengineered Tissue No -Bleeding Controlled with Pressure -Treatment Response Procedure Tolerated Well #10- RIGHT LATERAL -Time 11:54 -Correct Patient Yes -Correct Side, Site, Position Yes -Correct Procedure Yes -Procedure Performed Yes -Type of Procedure Debridement -Clinical Debridement Subcutaneous -Post Debridement Size (cm) - Length 9.8 -Post Debridement Size (cm) - Width 11 -Post Debridement Size (cm) - Depth 0.1 -Total Square Cm 107.8 -Wound/Ulcer Outcome Not Healed -Ulcer Cleansing Rinsed/ Irrigated with Saline -Foul Odor after Cleansing No -Bioengineered Tissue No -Bleeding Controlled with Pressure -Treatment Response Procedure Tolerated Well #9 RIGHt norman -Time 11:54 -Correct Patient Yes -Correct Side, Site, Position Yes -Correct Procedure Yes -Procedure Performed Yes -Type of Procedure Debridement -Clinical Debridement Subcutaneous -Post Debridement Size (cm) - Length 12.3 -Post Debridement Size (cm) - Width 4.5 -Post Debridement Size (cm) - Depth 0.1 -Total Square Cm 55.35 -Wound/Ulcer Outcome Not Healed -Ulcer Cleansing Rinsed/ Irrigated with Saline -Foul Odor after Cleansing No -Bioengineered Tissue No -Bleeding Controlled with Pressure -Treatment Response Procedure Tolerated Well #3 Right Foot-Toes w/Metatarsal Head circumfrential -Time 11:54 -Correct Patient Yes -Correct Side, Site, Position Yes -Correct Procedure Yes -Procedure Performed Yes -Type of Procedure Debridement -Clinical Debridement Subcutaneous -Post Debridement Size (cm) - Length 15 -Post Debridement Size (cm) - Width 10.5 -Post Debridement Size (cm) - Depth 0.1 -Total Square Cm 157.5 -Wound/Ulcer Outcome Not Healed -Ulcer Cleansing Rinsed/ Irrigated with Saline -Foul Odor after Cleansing No -Bioengineered Tissue No -Bleeding Controlled with Pressure -Treatment Response Procedure Tolerated Well #1 BTK Left Stump cluster -Correct Patient No -Correct Side, Site, Position No -Correct Procedure No -Procedure Performed No [See Physician Procedure note for Specifics] Pain Scale: 0-10 Numeric [Pain] -Is Patient Pain Free? Yes Musculoskeletal: No Tenderness to Palpation of Joints or Extremities, Muscle Wasting, Tenderness - No pain with wound manipulation bilateral. Compartments of the bilateral thighs and right leg and foot are soft without crepitus noted Neurological: - - Epicritic sensation noted to light touch right lower extremity Psych/Mental Status: Normal Affect, Appropriate Debridement Note Post-Debridement Measurements/Treatment WC - Nurse 2 - General Ulcer CM Notes Start: 08/11/17 09:43 Freq: Status: Active Protocol: Activity Type Activity Date Activity User E-Sign Co-Sign Detail Recorded Client Recorded Date Recorded By Document 08/11/17 10:37 [id number] 08/11/17 11:13 Document 08/18/17 10:47 [id number] 08/18/17 11:06 Document 09/01/17 11:53 [id number] 09/01/17 11:55 08/11/17 08/18/17 09/01/17 10:37 10:47 11:53 Wound Center Nurse 2 #14- LT POPLITEAL FOLD -Time 10:55 -Correct Patient Yes -Correct Side, Site, Position Yes -Correct Procedure Yes -Procedure Performed Yes -Type of Procedure Debridement -Clinical Debridement Subcutaneous -Post Debridement Size (cm) - Length 2.0 -Post Debridement Size (cm) - Width 0.7 -Post Debridement Size (cm) - Depth 0.1 -Total Square Cm 1.40 -Wound/Ulcer Outcome Not Healed -Ulcer Cleansing Rinsed/ Irrigated with Saline -Foul Odor after Cleansing No -Bioengineered Tissue No -Topical Lidocaine (%) 5 -Bleeding Controlled with NA -Other popliteal fold not in Dr Fasciones scope of practice- keep an eye on -Treatment Response Procedure Tolerated Well #13 R Med Heel -Time 10:56 11:00 11:53 -Correct Patient Yes Yes Yes -Correct Side, Site, Position Yes Yes Yes -Correct Procedure Yes Yes Yes -Procedure Performed Yes Yes Yes -Type of Procedure Debridement Debridement Debridement -Clinical Debridement Subcutaneous Muscle Muscle -Post Debridement Size (cm) - Length 4.6 3.2 5 -Post Debridement Size (cm) - Width 5.3 4.9 6.8 -Post Debridement Size (cm) - Depth 0.3 1.2 1.6 -Total Square Cm 24.38 15.68 34.0 -Wound/Ulcer Outcome Not Healed Not Healed Not Healed -Ulcer Cleansing Rinsed/ Rinsed/ Rinsed/ Irrigated with Irrigated with Irrigated with Saline Saline Saline -Foul Odor after Cleansing No No No -Bioengineered Tissue No No No -Topical Lidocaine (%) 5 4 -Bleeding Controlled with Pressure Pressure Pressure -Treatment Response Procedure Procedure Procedure Tolerated Well Tolerated Well Tolerated Well #12 R LE Cluster -Time 10:57 -Correct Patient Yes -Correct Side, Site, Position Yes -Correct Procedure Yes -Procedure Performed Yes -Post Debridement Size (cm) - Length 0 -Post Debridement Size (cm) - Width 0 -Post Debridement Size (cm) - Depth 0 -Total Square Cm 0 -Wound/Ulcer Outcome Healed- Epithelialized -Ulcer Cleansing Rinsed/ Irrigated with Saline -Foul Odor after Cleansing No -Bioengineered Tissue No -Topical Lidocaine (%) 5 -Bleeding Controlled with NA Pressure -Treatment Response Procedure Tolerated Well #11 RIGHT PROXIMAL LE -Time 10:57 -Correct Patient Yes -Correct Side, Site, Position Yes -Correct Procedure Yes -Procedure Performed Yes -Post Debridement Size (cm) - Length 0 -Post Debridement Size (cm) - Width 0 -Post Debridement Size (cm) - Depth 0 -Total Square Cm 0 -Wound/Ulcer Outcome Healed- Epithelialized -Ulcer Cleansing Rinsed/ Irrigated with Saline -Foul Odor after Cleansing No -Bioengineered Tissue No -Topical Lidocaine (%) 5 -Bleeding Controlled with NA Pressure -Treatment Response Procedure Tolerated Well #10- RIGHT LATERAL -Time 10:58 11:00 11:54 -Correct Patient Yes Yes Yes -Correct Side, Site, Position Yes Yes Yes -Correct Procedure Yes Yes Yes -Procedure Performed Yes Yes Yes -Type of Procedure Debridement Debridement Debridement -Clinical Debridement Subcutaneous Subcutaneous Subcutaneous -Post Debridement Size (cm) - Length 0.9 0.4 9.8 -Post Debridement Size (cm) - Width 4.4 0.4 11 -Post Debridement Size (cm) - Depth 0.1 0.1 0.1 -Total Square Cm 3.96 0.16 107.8 -Wound/Ulcer Outcome Not Healed Not Healed Not Healed -Ulcer Cleansing Rinsed/ Rinsed/ Rinsed/ Irrigated with Irrigated with Irrigated with Saline Saline Saline -Foul Odor after Cleansing No No No -Bioengineered Tissue No No No -Topical Lidocaine (%) 5 4 -Bleeding Controlled with Pressure Pressure Pressure -Treatment Response Procedure Procedure Procedure Tolerated Well Tolerated Well Tolerated Well #9 RIGHt norman -Time 10:58 11:04 11:54 -Correct Patient Yes Yes Yes -Correct Side, Site, Position Yes Yes Yes -Correct Procedure Yes Yes Yes -Procedure Performed Yes Yes Yes -Type of Procedure Debridement Debridement Debridement -Clinical Debridement Subcutaneous Subcutaneous Subcutaneous -Post Debridement Size (cm) - Length 0.9 1.1 12.3 -Post Debridement Size (cm) - Width 0.9 0.8 4.5 -Post Debridement Size (cm) - Depth 0.1 0.1 0.1 -Total Square Cm 0.81 0.88 55.35 -Wound/Ulcer Outcome Not Healed Not Healed Not Healed -Ulcer Cleansing Rinsed/ Rinsed/ Rinsed/ Irrigated with Irrigated with Irrigated with Saline Saline Saline -Foul Odor after Cleansing No No No -Bioengineered Tissue No No No -Topical Lidocaine (%) 5 4 -Bleeding Controlled with Pressure Pressure Pressure -Treatment Response Procedure Procedure Procedure Tolerated Well Tolerated Well Tolerated Well #6 R Med Lower Leg -Time 10:59 -Correct Patient Yes -Correct Side, Site, Position Yes -Correct Procedure Yes -Procedure Performed Yes -Post Debridement Size (cm) - Length 0 -Post Debridement Size (cm) - Width 0 -Post Debridement Size (cm) - Depth 0 -Total Square Cm 0 -Wound/Ulcer Outcome Healed- Epithelialized -Ulcer Cleansing Rinsed/ Irrigated with Saline -Foul Odor after Cleansing No -Bioengineered Tissue No -Topical Lidocaine (%) 5 -Bleeding Controlled with NA -Treatment Response Procedure Tolerated Well #3 Right Foot-Toes w/Metatarsal Head circumfrential -Time 10:59 11:04 11:54 -Correct Patient Yes Yes Yes -Correct Side, Site, Position Yes Yes Yes -Correct Procedure Yes Yes Yes -Procedure Performed Yes Yes Yes -Type of Procedure Debridement Debridement Debridement -Clinical Debridement Subcutaneous Subcutaneous Subcutaneous -Post Debridement Size (cm) - Length 8.6 11.1 15 -Post Debridement Size (cm) - Width 8.6 6.3 10.5 -Post Debridement Size (cm) - Depth 0.1 0.1 0.1 -Total Square Cm 73.96 69.93 157.5 -Wound/Ulcer Outcome Not Healed Not Healed Not Healed -Ulcer Cleansing Rinsed/ Rinsed/ Rinsed/ Irrigated with Irrigated with Irrigated with Saline Saline Saline -Foul Odor after Cleansing No No No -Bioengineered Tissue No No No -Topical Lidocaine (%) 5 4 -Bleeding Controlled with Pressure Pressure Pressure -Treatment Response Procedure Procedure Procedure Tolerated Well Tolerated Well Tolerated Well #1 BTK Left Stump cluster -Time 11:00 11:05 -Correct Patient Yes Yes No -Correct Side, Site, Position Yes Yes No -Correct Procedure Yes Yes No -Procedure Performed Yes Yes No -Type of Procedure Debridement Debridement -Clinical Debridement Subcutaneous Subcutaneous -Post Debridement Size (cm) - Length 1.0 6.1 -Post Debridement Size (cm) - Width 1.0 6.1 -Post Debridement Size (cm) - Depth 0.1 0.1 -Total Square Cm 1.00 37.21 -Wound/Ulcer Outcome Not Healed Not Healed -Ulcer Cleansing Rinsed/ Rinsed/ Irrigated with Irrigated with Saline Saline -Foul Odor after Cleansing No No -Bioengineered Tissue No No -Topical Lidocaine (%) 5 4 -Bleeding Controlled with Pressure Pressure -Treatment Response Procedure Procedure Tolerated Well Tolerated Well Pain Scale: 0-10 Numeric Is Patient Pain Free? Yes Yes Yes Wound debrided: below knee amputation stump site Laterality: Left Wound Grade/Stage: grade 1 Type of Debridement: Excisional debridement Anesthesia Used: 4% Lidocaine Solution Depth: in the subcutaneous layer Percentage of wound debrided: 100 Instrument Used: #15 blade Tissue Removed: fibrous, devitalized subcutaneous, biofilm, slough Severity: Fat Layer Exposed Amount of bleeding with debridement: Mild Bleeding Controlled with: Pressure Patient tolerated procedure well - Additional Wound Wound debrided: right leg Laterality: Right Wound Grade/Stage: grade 1 Type of Debridement: Excisional debridement Anesthesia Used: 4% Lidocaine Solution Depth: in the subcutaneous layer Percentage of wound debrided: 100 Instrument Used: #15 blade Tissue Removed: fibrous, devitalized subcutaneous, biofilm, slough Severity: Fat Layer Exposed Amount of bleeding with debridement: Mild Bleeding Controlled with: Pressure Patient tolerated procedure: Patient tolerated procedure well - Additional Wound Wound debrided: forefoot/toe region Laterality: Right Wound Grade/Stage: grade 1 Type of Debridement: Excisional debridement Anesthesia Used: 4% Lidocaine Solution Depth: in the subcutaneous layer Percentage of wound debrided: 100 Instrument Used: #15 blade Tissue Removed: fibrous, devitalized subcutaneous, biofilm, slough Severity: Fat Layer Exposed Amount of bleeding with debridement: Mild Bleeding Controlled with: Pressure Patient tolerated procedure: Patient tolerated procedure well - Additional Wound Wound debrided: posterior plantar heel Laterality: Right Wound Grade/Stage: grade 3 Type of Debridement: Excisional debridement Anesthesia Used: 4% Lidocaine Solution Depth: in the subcutaneous layer Percentage of wound debrided: 100 Instrument Used: #15 blade Tissue Removed: fibrous, devitalized subcutaneous, biofilm, slough Severity: Fat Layer Exposed Amount of bleeding with debridement: Mild Bleeding Controlled with: Pressure Patient tolerated procedure: Patient tolerated procedure well Assessment/Plan Active Problems Ulcer of left lower extremity with fat layer exposed (Chronic) Chronic kidney disease (CKD) (Chronic) Type 2 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with diabetic polyneuropathy (Chronic) Ulcer of right lower extremity with fat layer exposed (Chronic) Chronic ulcer of right foot with fat layer exposed (Chronic) Delayed wound healing (Chronic) Malnutrition (Chronic) Venous insufficiency (Chronic) Lymphedema (Chronic) Edema of both legs (Chronic) Morbid obesity with BMI of 45.0-49.9, adult (Chronic) Assessment: ulcer right forefoot - subcutaneous tissue exposed. Ulcer left stump -subcutaneous tissue exposed. Ulcers right leg, left leg -subcutaneous tissue exposed. right heel ulcer muscle involved and exposed fascia with infection and worsening status (possible osteomyelitis)- this is a grade 3. Lymphedema. Chronic lower extremity edema and venous insufficiency. Morbid obesity. Type 2 diabetes uncontrolled with peripheral neuropathy. CKD. Hypertension. Left below-knee amputation. Malnutrition. Delayed wound healing. Nonadherence to treatment plan Plan: I reviewed and discussed his case and continued care plan recommendations. His ulcer sites were evaluated as noted in the clinical panel. Debridement was performed as noted in the clinical panel. A dressing was applied today with additional compression dressings. To change all the ulcer sites with Guera with the exception of betadine / gauze application to the right heel. Aerated status I recommend he go for admission at the hospital for antibiotics, infectious disease consultation (previously known), and surgical debridement of this right heel ulcer site with calcaneus bone biopsy. I recommend utilizing left 3M to 2L dressing which is applied today and aislinn wrap will be applied to the right lower extremity. It is noted the skin is very friable and he is high risk for continued ulcers. Continue with compression dressings daily. To elevate limbs at rest. To continue to proceed forward use of his lymphedema pump twice daily. He is now considered on complex care due to inability to fully adhere to the treatment program. CircAid thigh-high were ordered for the right lower extremity; he understands this is a graduated compression device. It is noted he had previous vascular surgery intervention. He had stents placed to improve arterial perfusion. He will follow-up with him as needed at this point. His noninvasive vascular arterial studies were reviewed and his COY is 1.05 on the right lower extremity. This will be monitored. His previous right foot MRI from mid July 2017 was negative for osteomyelitis however due to the chronicity and depth of the wound status change this is a concern. Serial lab trends and clinical improvement will be monitored close. Labs including CBC, CMP, ESR, C- reactive protein will be obtained when he gets over to the hospital. To continue with nutritional supplementation, Glucerna. His diabetes is uncontrolled and he understands he is at risk for limb loss. To continue with proper glycemic control medical management to optimize healing. I answered all his questions. Follow him closely in house. I did review the case with hospitalist Dr. Gaines who concurs with the admission. Please do not hesitate to call if you have any questions.
== END 2017-09-04 23:59 ==
LOC: WC 10:30
PROVIDERS: Visit Provider Podiatrist
DX: E11.622 Type 2 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with other skin ulcer (principal); E11.42 Type 2 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with diabetic polyneuropathy; E11.22 Type 2 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with diabetic chronic kidney disease; N18.9 Chronic kidney disease, unspecified; L97.812 Non-pressure chronic ulcer of other part of right lower leg with fat layer exposed; L97.512 Non-pressure chronic ulcer of other part of right foot with fat layer exposed; E11.621 Type 2 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with foot ulcer; I89.0 Lymphedema, not elsewhere classified; E11.51 Type 2 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with diabetic peripheral angiopathy without gangrene; R60.0 Localized edema; E66.01 Morbid (severe) obesity due to excess calories; Z68.42 Body mass index [BMI] 45.0-49.9, adult; Z71.3 Dietary counseling and surveillance; L97.412 Non-pressure chronic ulcer of right heel and midfoot with fat layer exposed; L97.822 Non-pressure chronic ulcer of other part of left lower leg with fat layer exposed; E11.65 Type 2 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with hyperglycemia; I12.9 Hypertensive chronic kidney disease with stage 1 through stage 4 chronic kidney disease, or unspecified chronic kidney disease; L97.513 Non-pressure chronic ulcer of other part of right foot with necrosis of muscle; L08.9 Local infection of the skin and subcutaneous tissue, unspecified
CPT/HCPCS: 11042; 11043; 11045; 11046; 29581; 97602; 99214; G0463

== ENCOUNTER 2017-09-01 12:45 | Inpatient (IN) | payer MEDICARE, MEDICAID, SELFPAY ==
[2017-09-01 12:57] VITALS: BMI 48.5
[2017-09-01 13:19] VITALS: BMI 48.4
[2017-09-01 13:26] VITALS: BP 139/69; PULSE 85; RESP 18; TEMP 37.1; O2SAT 98
[2017-09-01 17:35] LABS: Bedside Glucose 313 mg/dL (70-110)
[2017-09-01 18:30] LABS: Absolute Lymphocyte Count 1.43 X10^3/ul (0.83-4.51); Absolute Neutrophil Count 7.3 X10^3/uL (2.0-7.7); Basophil# 0.01 X10^3/uL; Basophil% 0.1 % (0-1); Eosinophil# 0.22 X10^3/uL; Eosinophils% 2.2 % (0-5); Hematocrit 30.8 % (40-54); Hemoglobin 9.5 g/dl (13.0-16.5); Lymphocyte # 1.43 X10^3/ul (4.0); Lymphocyte % 14.6 % (19-41); Mean Corp Hgb Conc 30.8 g/gl (32-36); Mean Corpuscular Hgb 26.6 pg (27.0-32.0); Mean Corpuscular Volume 86.3 fL (80-94); Mean Platelet Vol. 10.1 fl (6.2-12.0); Monocyte# 0.77 X10^3/uL; Monocyte% 7.8 % (0-10); Neutrophil # 7.26 X10^3/uL (2.7-7.7); Platelet Count 182 K/mm3 (150-450); RBC Distribution Width CV 15.4 % (11.6-14.6); RBC Distribution Width SD 48.2 fl (35.1-43.9); Red Blood Count 3.57 M/mm3 (4.6-6.2); White Blood Count 9.8 K/mm3 (4.4-11.0)
[2017-09-01 18:34] LABS: POSITIVE COUNT NO; POSITIVE DIFFERENTIAL NO; POSITIVE MORPHOLOGY NO
[2017-09-01 18:41] LABS: Erythrocyte Sedimentation Rate 77 mm/hr (0-20)
[2017-09-01 18:49] LABS: Hemoglobin A1c 9.2 % (4.2-6.3)
[2017-09-01 19:06] LABS: ALB/GLOB Ratio 0.6 RATIO (0.9-2.4); AST(SGOT) 21 U/L (15-37); Alanine Aminotransfer ALT/SGPT 36 U/L (16-61); Albumin, Serum 2.8 g/dL (3.2-5.0); Alkaline Phosphatase 97 U/L (45-117); Anion Gap 9 (5-15); BUN 52 mg/dL (7-18); BUN/Creat Ratio 26.3 RATIO (10-20); Calcium,Total 8.3 mg/dL (8.5-10.1); Chloride 104 mmol/L (98-107); Creatinine, Serum 1.98 mg/dL (0.70-1.30); EST Glomerular Filtration Rate 37 mL/min (>60); Est Glom Filt Rate - Afr Amer 45 mL/min (>60); Estimated Creatinine Clearance 37.56 ml/min; Globulin 4.7 g/dL (2.2-4.2); Glucose 306 mg/dL (74-106); Potassium 5.4 mmol/L (3.5-5.1); Protein, Total 7.5 g/dL (6.4-8.2); Sodium Level 137 mmol/L (136-145)
--- NOTE | 2017-09-01 19:59 | PCM.RX.CS ---
Consult Pharmacy has been consulted to manage selected antiobiotic: Vancomycin Type of Consult: New start Suspected Infection: Skin/Soft tissue Prior Doses of Antibiotics Received/Current Regimen: NONE Labs: Sodium 137 mmol/L (136-145) 09/01/17 18:08 Potassium 5.4 mmol/L (3.5-5.1) H 09/01/17 18:08 Chloride 104 mmol/L (98-107) 09/01/17 18:08 Carbon Dioxide 24.0 mmol/L (21.0-32.0) 09/01/17 18:08 Anion Gap 9 (5-15) 09/01/17 18:08 BUN 52 mg/dL (7-18) H 09/01/17 18:08 Creatinine 1.98 mg/dL (0.70-1.30) H 09/01/17 18:08 Est GFR (MDRD) Af Amer 45 mL/min (>60) L 09/01/17 18:08 Est GFR (MDRD) Non-Af 37 mL/min (>60) L 09/01/17 18:08 BUN/Creatinine Ratio 26.3 RATIO (10-20) H 09/01/17 18:08 Glucose 306 mg/dL (74-106) H 09/01/17 18:08 Microbiology: PENDING Weight used for dosin.3 kg Estimated Creatinine Clearance: 37.5ML/MIN Goal Trough: 10-15 mcg/mL Pharmacy Plan for Drug Dosing: Pharmacy Service will continue to monitor and adjust dosing as required. Pharmacy to manage vancomycin per consult for the treatment of suspected right heel ulcer per admission reason. The patient has not gotten any doses of antibiotics prior to initiation of dosing by pharmacy. PLAN/RECOMMENDATIONS 1. Vancomycin 2000mg IV Q24hrs (14.2 mg/kg based on TBW) 2. Vancomycin trough 09/04/17 @2030, prior to 4th dose of scheduled regimen 3. Pharmacy will continue to monitor renal function, culture data, and troughs. Will make changes as appropriate
--- NOTE | 2017-09-01 20:11 | PCM.HP.STD ---
Problem List (1) Calcaneus pressure ulceration right foot Status: Acute History of Present Illness Date of Admission: 09/01/17 Chief Complaint: Calcaneus pressure ulceration right foot The patient is a 57 year old M who was directly admitted to [place] [address] after being seen today by podiatric medicine and it was noted that his right calcaneus neuropathic pressure ulceration was not healing and it was determined he should be admitted for further aggressive treatment including antibiotics and debridement. Patient has a long history of type 2 diabetes, he states he was diagnosed with type 2 diabetes in 1998, it is probable that his diabetes is not under good control-previous A1c's were well above 8, he states he sees a family practitioner in [place] but the patient was in [place]. He also states he has an cotton ginner in the [place] that he sees every 3 months. Patient was hospitalized last at [facility] in January 2017 for right foot infection, at that time he grew out multiple organisms including MSSA, Proteus, Providencia, and Klebsiella. Most recent culture in the computer shows Klebsiella pneumoniae, Proteus, and Morganella. Past Medical History Past Medical History (Chronic Problems): Chronic Problems Ulcer of left lower extremity with fat layer exposed (Chronic) Chronic kidney disease (CKD) (Chronic) Anemia (Chronic) BKA stump complication (Chronic) Hx of osteomyelitis (Chronic) Left lower leg amputation. 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) Delayed wound healing (Chronic) Malnutrition (Chronic) Venous insufficiency (Chronic) Lymphedema (Chronic) Edema of both legs (Chronic) GERD (gastroesophageal reflux disease) (Chronic) Hypertension (Chronic) Hyperlipemia (Chronic) Morbid obesity with BMI of 45.0-49.9, adult (Chronic) Hyperlipidemia associated with type 2 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(Chronic) 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 Allergies bee venom protein (honey bee) Allergy (Verified 01/08/17 12:04) Swelling metronidazole [From Flagyl] Allergy (Verified 01/13/17 14:51) Itching Home Medications: Ambulatory Orders Medication Instructions Recorded Apixaban [Eliquis] 2.5 mg PO BID 01/08/17 Atorvastatin Calcium [Lipitor] 10 mg PO QHS 01/08/17 Brimonidine Tartrate 0.2% 1 drop EACH EYE BID 01/08/17 [Brimonidine 0.2% 5Ml Bottle] Ergocalciferol [Vitamin D] 50,000 unit PO MO 01/08/17 Gabapentin [Neurontin] 1,600 mg PO QHS 01/08/17 Gabapentin [Neurontin] 600 mg PO DAILY 01/08/17 Insulin U-500 [Humulin R U-500 65 units SC DINNER 01/08/17 ([facility])] Insulin U-500 [Humulin R U-500 85 units SC LUNCH 01/08/17 ([facility])] Insulin U-500 [Humulin R U-500 135 units SC BREAKFAST 01/08/17 ([facility])] Latanoprost 0.005% [Xalatan 1 drop EACH EYE QHS 01/08/17 Opthalmic] Losartan Potassium [Cozaar] 50 mg PO DAILY 01/08/17 Nebivolol HCl [Bystolic (Beta 10 mg PO DAILY 01/08/17 Akira)] Omeprazole [Prilosec] 40 mg PO DAILY 01/08/17 Cefdinir [Omnicef [equiv]] 300 mg PO Q12H #28 capsule 01/13/17 Metronidazole [Flagyl] 500 mg PO Q8H #42 tablet 01/13/17 Surgical History: tonsillectomy, - - below the knee amputation left leg, surgery on detached retina, laser surgery on eyes secondary to diabetic retinopathy, right little toe amputation, right foot surgery Psychiatric History: No pertinent psych hx Lives: Alone Smoking Status: Former smoker Tobacco Use: Non-smoker Alcohol: None Drugs: None - *Family History Maternal History Items: Diabetes Paternal History Items: Hypertension Sibling History Items: Diabetes Review of Systems Constitutional: Denies: Anorexia, Chills, Fever, Night Sweats, Malaise, Weakness, Weight Change, Fatigue Eyes: Denies: Blurred vision, Cataracts, Conjunctivae Inflammation, Double vision, Drainage HEENT: Denies: Difficulty Hearing, Difficulty Swallowing, Dysphasia, Ear Pain, Eye Pain, Head Aches, Hearing Changes, Nasal bleeding, Nasal Congestion, Post Nasal Drip Cardiovascular: Denies: Chest Pain, Claudication, Chest Pressure, Chest Tightness, Edema, Heaviness, Light Headedness, Orthopnea, Palpitations, Paroxysmal Noc. Dyspnea, Syncope Respiratory: Denies: Cough, Hemoptysis, Pleuritic Pain, Shortness of Breath, Shortness of breath at rest, Shortness of breath upon exertion, Sputum production, Wheezing Gastrointestinal: Denies: Abdominal Pain, Constipation, Diarrhea, Hematemesis, Hematochezia, Nausea, Melena, Vomiting Genitourinary: Reports: - - Chronic kidney disease history. Denies: Dysuria, Frequency, Hematuria, Hesitancy, Incontinence, Nocturia, Urgency Musculoskeletal: Denies: Back Pain, Foot Pain, Hand Pain, Joint Pain, Joint stiffness, Joint swelling, Joint Tenderness, Leg Pain Skin: Reports: Wounds - Chronic right foot wound since July 2017 according to the patient. Denies: Dryness, Jaundice, Pruritis, Rash Neurological: Reports: Numbness - Diabetic neuropathy of the right foot. Denies: Blurred vision, Double vision, Slurred speech, Difficulty swallowing, Focal weakness, Headaches, Tingling Psychiatric: Denies: Anxiety, Depression, Homicidal Ideations, Suicidal Ideations Endocrine: Denies: Change in Body Habitus, Heat/ Cold Intolerance, Polydipsia, Polyuria Hematologic/ Lymphatic: Denies: Adenopathy, Anemia, Easy Bruising, Easy Bleeding, Petechiae, Purpura VTE Information - Inpt Only VTE Present on Admission: No VTE Mechan Device Prophylaxis: None VTE Pharm Prophylaxis ordered?: Yes Patient Problems: Active and Suspected Problems Calcaneus pressure ulceration right foot (Acute) - Physical Exam General: Alert, Oriented x3, Cooperative, No apparent distress, Well developed, Well nourished HEENT: Atraumatic, PERRLA, EOMI, Normocephalic Oral: Moist Mucosa Neck: Supple, No JVD, No Nuchal Rigidity, Trachea Midline, Thyroid Normal Size and Texture Lungs: Clear to auscultation, Normal air movement, No rhonchi, No wheeze, No rales Cardiovascular: Regular rate, Regular Rhythm, Normal S1, Normal S2, No murmurs, No Ectopic Activity, PMI Normal, No rub noted, No Gallop Abdomen: Bowel Sounds Present, Soft, Non Tender, Non-Distended, Obese, No hernias noted Extremities: Capillary Refill Less than 3 Seconds, Edema - Generalized edema and deformity of the right foot is noted Skin: Ulcer/ Wound - There is a large eschar over the patient's right calcaneus, Rash Present - Stasis dermatitis changes are noted over the patient's right and left lower leg, - - Right foot is covered in debris Musculoskeletal: No Tenderness to Palpation of Joints or Extremities, - - Below the knee amputation is noted with stasis dermatitis changes in the distal left leg Neurological: Cranial nerves II-XII grossly intact, - - Patient has no sensation to light touch and pain in the right foot Psych/Mental Status: Normal Affect, Appropriate, Alert and oriented to time, place, person, mood and affect Vital Signs Temp Pulse Resp BP Pulse Ox 98.8 F 85 18 139/69 H 98 09/01/17 13:26 09/01/17 13:26 09/01/17 13:26 09/01/17 13:26 09/01/17 13:26 Oxygen Delivery Method Room Air Weight: 140.3 kg Body Mass Index (BMI) 48.4 Finger Stick Blood Glucose 61 Intake and Output for Last 24 Hours 08/30/17 08/31/17 09/01/17 23:59 23:59 23:59 Intake Total 760 / 760 Balance 760 / 760 Laboratory Tests Past 24 Hrs 09/01/17 09/01/17 09/01/17 18:08 18:08 18:08 WBC 9.8 RBC 3.57 L Hgb 9.5 L Hct 30.8 L MCV 86.3 MCH 26.6 L MCHC 30.8 L RDW 15.4 H RDW Differential 48.2 H Plt Count 182 MPV 10.1 Immature Gran % (Auto) 1.300 H Neut % (Auto) 74.0 H Lymph % (Auto) 14.6 L Vernon % (Auto) 7.8 Eos % (Auto) 2.2 Baso % (Auto) 0.1 Absolute Neuts (auto) 7.3 Absolute Lymphs (auto) 1.43 Total Counted Not Reportable ESR 77 H Sodium 137 Potassium 5.4 H Chloride 104 Carbon Dioxide 24.0 Anion Gap 9 BUN 52 H Creatinine 1.98 H Estim Creat Clear Calc 37.56 Est GFR (MDRD) Af Amer 45 L Est GFR (MDRD) Non-Af 37 L BUN/Creatinine Ratio 26.3 H Glucose 306 H Hemoglobin A1c 9.2 H Calcium 8.3 L Total Bilirubin 0.40 AST 21 ALT 36 Alkaline Phosphatase 97 C-React Prot Ext Range 27.80 H Total Protein 7.5 Albumin 2.8 L Globulin 4.7 H Albumin/Globulin Ratio 0.6 L POC Glucose 09/01/17 17:30 POC Glucose 313 H Assessment/Plan Active and Suspected Problems Calcaneus pressure ulceration right foot (Acute) #1 infected neuropathic pressure ulceration right calcaneus-secondary to severe peripheral vascular disease of the right leg, uncontrolled type 2 diabetes, and noncompliance with medical treatment-patient will be admitted to [facility] 2, patient will be placed on IV vancomycin and IV meropenem-I am not going to use Zosyn at this time due to the fact that on his last culture, the Klebsiella pneumoniae was intermediate to Zosyn. ID will be consulted, labs were ordered, x-rays of the right foot will be obtained, podiatry will be consulted () #2 uncontrolled type 2 diabetes-hemoglobin A1c was ordered, patient is on a large amount of U500 insulin, I am uncomfortable with writing for this amount of U5 100 insulin, he will be placed on Levemir twice a day, NovoLog with each meal, and sliding scale insulin with a high protocol. I suspect his type 2 diabetes is under poor control, I feel the patient has a poor grasp of how to control his sugars #3 peripheral vascular disease of the lower extremities secondary to type 2 diabetes #4 stage III chronic kidney disease secondary to type 2 diabetes #5 neuropathy secondary to type 2 diabetes #6 morbid obesity Code Visit Inpatient E&M: 31811 Init Hosp L3
--- NOTE | 2017-09-01 20:33 | HP.PCM_ITS ---
Problem List (1) Calcaneus pressure ulceration right foot Status: Acute History of Present Illness Date of Admission: 09/01/17 Chief Complaint: Calcaneus pressure ulceration right foot The patient is a 57 year old M who was directly admitted to [place] [address] after being seen today by podiatric medicine and it was noted that his right calcaneus neuropathic pressure ulceration was not healing and it was determined he should be admitted for further aggressive treatment including antibiotics and debridement. Patient has a long history of type 2 diabetes, he states he was diagnosed with type 2 diabetes in 1998, it is probable that his diabetes is not under good control-previous A1c's were well above 8, he states he sees a family practitioner in [place] but the patient was in [place]. He also states he has an family consultant in the [place] that he sees every 3 months. Patient was hospitalized last at [facility] in January 2017 for right foot infection, at that time he grew out multiple organisms including MSSA , Proteus, Providencia, and Klebsiella. Most recent culture in the computer shows Klebsiella pneumoniae, Proteus, and Morganella. Past Medical History Past Medical History (Chronic Problems): Chronic Problems Ulcer of left lower extremity with fat layer exposed (Chronic) Chronic kidney disease (CKD) (Chronic) Anemia (Chronic) BKA stump complication (Chronic) Hx of osteomyelitis (Chronic) Left lower leg amputation. 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) Delayed wound healing (Chronic) Malnutrition (Chronic) Venous insufficiency (Chronic) Lymphedema (Chronic) Edema of both legs (Chronic) GERD (gastroesophageal reflux disease) (Chronic) Hypertension (Chronic) Hyperlipemia (Chronic) Morbid obesity with BMI of 45.0-49.9, adult (Chronic) Hyperlipidemia associated with type 2 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(Chronic) 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 Allergies bee venom protein (honey bee) Allergy (Verified 01/08/17 12:04) Swelling metronidazole [From Flagyl] Allergy (Verified 01/13/17 14:51) Itching Home Medications: Ambulatory Orders Medication Instructions Recorded Apixaban [Eliquis] 2.5 mg PO BID 01/08/17 Atorvastatin Calcium [Lipitor] 10 mg PO QHS 01/08/17 Brimonidine Tartrate 0.2% 1 drop EACH EYE BID 01/08/17 [Brimonidine 0.2% 5Ml Bottle] Ergocalciferol [Vitamin D] 50,000 unit PO MO 01/08/17 Gabapentin [Neurontin] 1,600 mg PO QHS 01/08/17 Gabapentin [Neurontin] 600 mg PO DAILY 01/08/17 Insulin U-500 [Humulin R U-500 65 units SC DINNER 01/08/17 ([facility])] Insulin U-500 [Humulin R U-500 85 units SC LUNCH 01/08/17 ([facility])] Insulin U-500 [Humulin R U-500 135 units SC BREAKFAST 01/08/17 ([facility])] Latanoprost 0.005% [Xalatan 1 drop EACH EYE QHS 01/08/17 Opthalmic] Losartan Potassium [Cozaar] 50 mg PO DAILY 01/08/17 Nebivolol HCl [Bystolic (Beta 10 mg PO DAILY 01/08/17 Akira)] Omeprazole [Prilosec] 40 mg PO DAILY 01/08/17 Cefdinir [Omnicef [equiv]] 300 mg PO Q12H #28 capsule 01/13/17 Metronidazole [Flagyl] 500 mg PO Q8H #42 tablet 01/13/17 Surgical History: tonsillectomy, - - below the knee amputation left leg, surgery on detached retina, laser surgery on eyes secondary to diabetic retinopathy, right little toe amputation, right foot surgery Psychiatric History: No pertinent psych hx Lives: Alone Smoking Status: Former smoker Tobacco Use: Non-smoker Alcohol: None Drugs: None - *Family History Maternal History Items: Diabetes Paternal History Items: Hypertension Sibling History Items: Diabetes Review of Systems Constitutional: Denies: Anorexia, Chills, Fever, Night Sweats, Malaise, Weakness , Weight Change, Fatigue Eyes: Denies: Blurred vision, Cataracts, Conjunctivae Inflammation, Double vision, Drainage HEENT: Denies: Difficulty Hearing, Difficulty Swallowing, Dysphasia, Ear Pain, Eye Pain, Head Aches, Hearing Changes, Nasal bleeding, Nasal Congestion, Post Nasal Drip Cardiovascular: Denies: Chest Pain, Claudication, Chest Pressure, Chest Tightness, Edema, Heaviness, Light Headedness, Orthopnea, Palpitations, Paroxysmal Noc. Dyspnea, Syncope Respiratory: Denies: Cough, Hemoptysis, Pleuritic Pain, Shortness of Breath, Shortness of breath at rest, Shortness of breath upon exertion, Sputum production, Wheezing Gastrointestinal: Denies: Abdominal Pain, Constipation, Diarrhea, Hematemesis, Hematochezia, Nausea, Melena, Vomiting Genitourinary: Reports: - - Chronic kidney disease history. Denies: Dysuria, Frequency, Hematuria, Hesitancy, Incontinence, Nocturia, Urgency Musculoskeletal: Denies: Back Pain, Foot Pain, Hand Pain, Joint Pain, Joint stiffness, Joint swelling, Joint Tenderness, Leg Pain Skin: Reports: Wounds - Chronic right foot wound since July 2017 according to the patient. Denies: Dryness, Jaundice, Pruritis, Rash Neurological: Reports: Numbness - Diabetic neuropathy of the right foot. Denies : Blurred vision, Double vision, Slurred speech, Difficulty swallowing, Focal weakness, Headaches, Tingling Psychiatric: Denies: Anxiety, Depression, Homicidal Ideations, Suicidal Ideations Endocrine: Denies: Change in Body Habitus, Heat/ Cold Intolerance, Polydipsia, Polyuria Hematologic/ Lymphatic: Denies: Adenopathy, Anemia, Easy Bruising, Easy Bleeding , Petechiae, Purpura VTE Information - Inpt Only VTE Present on Admission: No VTE Mechan Device Prophylaxis: None VTE Pharm Prophylaxis ordered?: Yes Patient Problems: Active and Suspected Problems Calcaneus pressure ulceration right foot (Acute) - Physical Exam General: Alert, Oriented x3, Cooperative, No apparent distress, Well developed, Well nourished HEENT: Atraumatic, PERRLA, EOMI, Normocephalic Oral: Moist Mucosa Neck: Supple, No JVD, No Nuchal Rigidity, Trachea Midline, Thyroid Normal Size and Texture Lungs: Clear to auscultation, Normal air movement, No rhonchi, No wheeze, No rales Cardiovascular: Regular rate, Regular Rhythm, Normal S1, Normal S2, No murmurs, No Ectopic Activity, PMI Normal, No rub noted, No Gallop Abdomen: Bowel Sounds Present, Soft, Non Tender, Non-Distended, Obese, No hernias noted Extremities: Capillary Refill Less than 3 Seconds, Edema - Generalized edema and deformity of the right foot is noted Skin: Ulcer/ Wound - There is a large eschar over the patient's right calcaneus , Rash Present - Stasis dermatitis changes are noted over the patient's right and left lower leg, - - Right foot is covered in debris Musculoskeletal: No Tenderness to Palpation of Joints or Extremities, - - Below the knee amputation is noted with stasis dermatitis changes in the distal left leg Neurological: Cranial nerves II-XII grossly intact, - - Patient has no sensation to light touch and pain in the right foot Psych/Mental Status: Normal Affect, Appropriate, Alert and oriented to time, place, person, mood and affect Vital Signs Temp Pulse Resp BP Pulse Ox 98.8 F 85 18 139/69 H 98 09/01/17 13:26 09/01/17 13:26 09/01/17 13:26 09/01/17 13:26 09/01/17 13:26 Oxygen Delivery Method Room Air Weight: 140.3 kg Body Mass Index (BMI) 48.4 Finger Stick Blood Glucose 61 Intake and Output for Last 24 Hours 08/30/17 08/31/17 09/01/17 23:59 23:59 23:59 Intake Total 760 / 760 Balance 760 / 760 Laboratory Tests Past 24 Hrs 09/01/17 09/01/17 09/01/17 18:08 18:08 18:08 WBC 9.8 RBC 3.57 L Hgb 9.5 L Hct 30.8 L MCV 86.3 MCH 26.6 L MCHC 30.8 L RDW 15.4 H RDW Differential 48.2 H Plt Count 182 MPV 10.1 Immature Gran % (Auto) 1.300 H Neut % (Auto) 74.0 H Lymph % (Auto) 14.6 L Stone % (Auto) 7.8 Eos % (Auto) 2.2 Baso % (Auto) 0.1 Absolute Neuts (auto) 7.3 Absolute Lymphs (auto) 1.43 Total Counted Not Reportable ESR 77 H Sodium 137 Potassium 5.4 H Chloride 104 Carbon Dioxide 24.0 Anion Gap 9 BUN 52 H Creatinine 1.98 H Estim Creat Clear Calc 37.56 Est GFR (MDRD) Af Amer 45 L Est GFR (MDRD) Non-Af 37 L BUN/Creatinine Ratio 26.3 H Glucose 306 H Hemoglobin A1c 9.2 H Calcium 8.3 L Total Bilirubin 0.40 AST 21 ALT 36 Alkaline Phosphatase 97 C-React Prot Ext Range 27.80 H Total Protein 7.5 Albumin 2.8 L Globulin 4.7 H Albumin/Globulin Ratio 0.6 L POC Glucose 09/01/17 17:30 POC Glucose 313 H Assessment/Plan Active and Suspected Problems Calcaneus pressure ulceration right foot (Acute) #1 infected neuropathic pressure ulceration right calcaneus-secondary to severe peripheral vascular disease of the right leg, uncontrolled type 2 diabetes, and noncompliance with medical treatment-patient will be admitted to [facility] 2, patient will be placed on IV vancomycin and IV meropenem-I am not going to use Zosyn at this time due to the fact that on his last culture, the Klebsiella pneumoniae was intermediate to Zosyn. ID will be consulted, labs were ordered, x-rays of the right foot will be obtained, podiatry will be consulted ( ) #2 uncontrolled type 2 diabetes-hemoglobin A1c was ordered, patient is on a large amount of U500 insulin, I am uncomfortable with writing for this amount of U5 100 insulin, he will be placed on Levemir twice a day, NovoLog with each meal, and sliding scale insulin with a high protocol. I suspect his type 2 diabetes is under poor control, I feel the patient has a poor grasp of how to control his sugars #3 peripheral vascular disease of the lower extremities secondary to type 2 diabetes #4 stage III chronic kidney disease secondary to type 2 diabetes #5 neuropathy secondary to type 2 diabetes #6 morbid obesity Code Visit Inpatient E&M: 46152 Init Hosp L3
--- NOTE | 2017-09-01 21:19 | RAD_ITS ---
STUDY: X-RAY - RIGHT FOOT CLINICAL: Male, 57 years old. Right foot infection TECHNIQUE: 4 view(s) of the foot. COMPARISON: 07/21/2017. FINDINGS: Demineralization. Normal talus, calcaneus, and tarsal bones. Normal visualized subtalar, talonavicular, calcaneocuboid, tarsal and tarsometatarsal articulations. Fifth toe amputation. First and fourth metatarsals are unremarkable. Normal metatarsophalangeal joint of the great toe. Normal tibial and fibular sesamoid bones. Normal interphalangeal joint of the great toe. Normal phalanges of the great toe. Normal second through fifth metatarsophalangeal joints. Normal interphalangeal joints and phalanges of the lesser toes. Dorsal soft tissue swelling. RAD/Foot min 3 Views IMPRESSION: No fracture. No cortical erosion or evidence of osteomyelitis. Amputation of the fifth toe. Demineralization. Continued dorsal soft tissue swelling. No interval change. Electronically Signed: Kee Zuniga DO at 23:57 EDT , Service support ,
[2017-09-01 22:45] VITALS: BP 163/82; PULSE 79; RESP 18; TEMP 36.6; O2SAT 95
[2017-09-01] MEDS: Gabapentin 800 MG Tablet 1600 MG PO (22:49)
[2017-09-01] MEDS: BRIMONIDINE 0.2% 5ML BOTTLE 1 DRP EACH EYE (22:49)
[2017-09-01] MEDS: Atorvastatin Calcium 10 MG Tablet PO (22:49)
[2017-09-01] MEDS: Latanoprost 0.005% 1 Bottle 1 DRP EACH EYE (22:49)
[2017-09-01 23:36] VITALS: PULSE 79; RESP 18; O2SAT 95
[2017-09-02 00:05] LABS: Bedside Glucose 361 mg/dL (70-110)
[2017-09-02 01:22] LABS: M R Staph aureus DNA By PCR Negative (Negative); Probe Check PASS; Specimen Processing Control PASS
[2017-09-02 04:30] VITALS: BP 167/73; PULSE 86; RESP 18; TEMP 36.3; O2SAT 97
[2017-09-02 04:50] VITALS: PULSE 86; RESP 18; O2SAT 97
[2017-09-02 05:56] LABS: Absolute Lymphocyte Count 1.49 X10^3/ul (0.83-4.51); Absolute Neutrophil Count 6.7 X10^3/uL (2.0-7.7); Basophil# 0.02 X10^3/uL; Basophil% 0.2 % (0-1); Eosinophil# 0.19 X10^3/uL; Eosinophils% 2.1 % (0-5); Hematocrit 30.5 % (40-54); Hemoglobin 9.7 g/dl (13.0-16.5); Lymphocyte # 1.49 X10^3/ul (4.0); Lymphocyte % 16.2 % (19-41); Mean Corp Hgb Conc 31.8 g/gl (32-36); Mean Corpuscular Hgb 27.2 pg (27.0-32.0); Mean Corpuscular Volume 85.4 fL (80-94); Mean Platelet Vol. 10.6 fl (6.2-12.0); Monocyte# 0.67 X10^3/uL; Monocyte% 7.3 % (0-10); Neutrophil # 6.68 X10^3/uL (2.7-7.7); Neutrophil % 72.4 % (47-70); Platelet Count 191 K/mm3 (150-450); RBC Distribution Width CV 15.2 % (11.6-14.6); RBC Distribution Width SD 45.8 fl (35.1-43.9); Red Blood Count 3.57 M/mm3 (4.6-6.2); White Blood Count 9.2 K/mm3 (4.4-11.0)
[2017-09-02 06:08] LABS: POSITIVE COUNT NO; POSITIVE DIFFERENTIAL NO; POSITIVE MORPHOLOGY NO
[2017-09-02 06:26] LABS: Anion Gap 8 (5-15); BUN 50 mg/dL (7-18); Calcium,Total 8.6 mg/dL (8.5-10.1); Chloride 101 mmol/L (98-107); Creatinine, Serum 2.08 mg/dL (0.70-1.30); EST Glomerular Filtration Rate 35 mL/min (>60); Est Glom Filt Rate - Afr Amer 42 mL/min (>60); Estimated Creatinine Clearance 35.75 ml/min; Glucose 376 mg/dL (74-106); Potassium 4.9 mmol/L (3.5-5.1); Sodium Level 135 mmol/L (136-145)
--- NOTE | 2017-09-02 08:15 | PHA.PHARE_ITS ---
Consult Pharmacy has been consulted to manage selected antiobiotic: Vancomycin Type of Consult: Follow-up Suspected Infection: Skin/Soft tissue Prior Doses of Antibiotics Received/Current Regimen: Medications Vancomycin HCl 2,000 mg/ (Dextrose) 540 mls @ 260 mls/hr IV Q24H ARTHUR Last Admin: 09/01/17 20:42 Dose: 260 mls/hr Labs: Sodium 135 mmol/L (136-145) L 09/02/17 05:20 Potassium 4.9 mmol/L (3.5-5.1) 09/02/17 05:20 Chloride 101 mmol/L (98-107) 09/02/17 05:20 Carbon Dioxide 26.0 mmol/L (21.0-32.0) 09/02/17 05:20 Anion Gap 8 (5-15) 09/02/17 05:20 BUN 50 mg/dL (7-18) H 09/02/17 05:20 Creatinine 2.08 mg/dL (0.70-1.30) H 09/02/17 05:20 Est GFR (MDRD) Af Amer 42 mL/min (>60) L 09/02/17 05:20 Est GFR (MDRD) Non-Af 35 mL/min (>60) L 09/02/17 05:20 BUN/Creatinine Ratio 24.0 RATIO (10-20) H 09/02/17 05:20 Glucose 376 mg/dL (74-106) H 09/02/17 05:20 Weight used for dosin kg Estimated Creatinine Clearance: 36 mL/min Goal Trough: 10-15 mcg/mL Pharmacy Plan for Drug Dosing: Patient initially received vancomycin 2000mg IV x1. SCr slightly increased today , recommend to continue 1500mg IV q24h. Pharmacy Service will continue to monitor and adjust dosing as required. Follow-Up Labs: Trough Vancomycin - 09/04/17 @ 1999
[2017-09-02] MEDS: Gabapentin 600 MG Tablet PO (08:33)
[2017-09-02] MEDS: Pantoprazole Sodium 40 MG Tablet PO (08:33)
[2017-09-02] MEDS: Clopidogrel Bisulfate 75 MG Tablet PO (08:33)
[2017-09-02] MEDS: Losartan Potassium 50 MG Tablet PO (08:33)
[2017-09-02] MEDS: Nebivolol HCl 10 MG Tablet PO (08:34)
[2017-09-02] MEDS: BRIMONIDINE 0.2% 5ML BOTTLE 1 DRP EACH EYE ×2 (08:34→22:41)
[2017-09-02] MEDS: Enoxaparin 40 MG/0.4 ML Syringe SC (08:35)
[2017-09-02 08:39] VITALS: BP 159/82; PULSE 85; RESP 18; TEMP 36.1; O2SAT 96
[2017-09-02 08:51] LABS: Bedside Glucose 406 mg/dL (70-110)
--- NOTE | 2017-09-02 09:54 | PCM.HP.ID ---
Problem List (1) Ulcer of right foot with necrosis of muscle Status: Acute Reason for Consult: R heel infection Consulted by: Dr. Sharma History of Present Illness: The patient is a 57 year old M with h/o CKD, uncontrolled T2DM, recurrent foot infection, and LLE BKA who presented with worsening R heel drainage and inflammation. Cx from 07/2017 with proteus, klebs, and providencia. Previously in 01/2017 grew GNRs and MSSA. 07/2017, given course of cefdinir and cipro and heel was doing better, but sx returned off of abx. Seen in wound care yesterday by Dr. Lux and admission for debridement and IV abx was recommended. No fever, no n/v/d. Started on vanc/meropenem. Full ROS performed and neg except as noted above. - Medical History Past Medical History (Chronic Problems): Chronic Problems Ulcer of left lower extremity with fat layer exposed (Chronic) Chronic kidney disease (CKD) (Chronic) Anemia (Chronic) BKA stump complication (Chronic) Hx of osteomyelitis (Chronic) Left lower leg amputation. 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) Delayed wound healing (Chronic) Malnutrition (Chronic) Venous insufficiency (Chronic) Lymphedema (Chronic) Edema of both legs (Chronic) GERD (gastroesophageal reflux disease) (Chronic) Hypertension (Chronic) Hyperlipemia (Chronic) Morbid obesity with BMI of 45.0-49.9, adult (Chronic) Hyperlipidemia associated with type 2 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(Chronic) 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 Allergies/Adverse Reactions: Allergies bee venom protein (honey bee) Allergy (Verified 01/08/17 12:04) Swelling metronidazole [From Flagyl] Allergy (Verified 01/13/17 14:51) Itching Home Medications: Ambulatory Orders Medication Instructions Recorded Apixaban [Eliquis] 2.5 mg PO BID 01/08/17 Atorvastatin Calcium [Lipitor] 10 mg PO QHS 01/08/17 Brimonidine Tartrate 0.2% 1 drop EACH EYE BID 01/08/17 [Brimonidine 0.2% 5Ml Bottle] Ergocalciferol [Vitamin D] 50,000 unit PO MO 01/08/17 Gabapentin [Neurontin] 1,600 mg PO QHS 01/08/17 Gabapentin [Neurontin] 600 mg PO DAILY 01/08/17 Insulin U-500 [Humulin R U-500 65 units SC DINNER 01/08/17 ([facility])] Insulin U-500 [Humulin R U-500 85 units SC LUNCH 01/08/17 ([facility])] Insulin U-500 [Humulin R U-500 135 units SC BREAKFAST 01/08/17 ([facility])] Latanoprost 0.005% [Xalatan 1 drop EACH EYE QHS 01/08/17 Opthalmic] Losartan Potassium [Cozaar] 50 mg PO DAILY 01/08/17 Nebivolol HCl [Bystolic (Beta 10 mg PO DAILY 01/08/17 [facility])] Omeprazole [Prilosec] 40 mg PO DAILY 01/08/17 Cefdinir [Omnicef [equiv]] 300 mg PO Q12H #28 capsule 01/13/17 Metronidazole [Flagyl] 500 mg PO Q8H #42 tablet 01/13/17 - Social History SMOKING STATUS:: Former smoker Vital Signs Temp Pulse Resp BP Pulse Ox 97.0 F L 85 18 159/82 H 96 09/02/17 08:39 09/02/17 08:39 09/02/17 08:39 09/02/17 08:39 09/02/17 08:39 Oxygen Delivery Method Room Air Weight: 140.3 kg Body Mass Index (BMI) 48.4 Finger Stick Blood Glucose 61 Laboratory Tests Past 24 Hrs 09/01/17 09/01/17 09/01/17 18:08 18:08 18:08 WBC 9.8 RBC 3.57 L Hgb 9.5 L Hct 30.8 L MCV 86.3 MCH 26.6 L MCHC 30.8 L RDW 15.4 H RDW Differential 48.2 H Plt Count 182 MPV 10.1 Immature Gran % (Auto) 1.300 H Neut % (Auto) 74.0 H Lymph % (Auto) 14.6 L [place] % (Auto) 7.8 Eos % (Auto) 2.2 Baso % (Auto) 0.1 Absolute Neuts (auto) 7.3 Absolute Lymphs (auto) 1.43 Total Counted Not Reportable ESR 77 H Sodium 137 Potassium 5.4 H Chloride 104 Carbon Dioxide 24.0 Anion Gap 9 BUN 52 H Creatinine 1.98 H Estim Creat Clear Calc 37.56 Est GFR (MDRD) Af Amer 45 L Est GFR (MDRD) Non-Af 37 L BUN/Creatinine Ratio 26.3 H Glucose 306 H Hemoglobin A1c 9.2 H Calcium 8.3 L Total Bilirubin 0.40 AST 21 ALT 36 Alkaline Phosphatase 97 C-React Prot Ext Range 27.80 H Total Protein 7.5 Albumin 2.8 L Globulin 4.7 H Albumin/Globulin Ratio 0.6 L MRSA (PCR) 09/01/17 09/02/17 09/02/17 23:19 05:20 05:20 WBC 9.2 RBC 3.57 L Hgb 9.7 L Hct 30.5 L MCV 85.4 MCH 27.2 MCHC 31.8 L RDW 15.2 H RDW Differential 45.8 H Plt Count 191 MPV 10.6 Immature Gran % (Auto) 1.800 H Neut % (Auto) 72.4 H Lymph % (Auto) 16.2 L [place] % (Auto) 7.3 Eos % (Auto) 2.1 Baso % (Auto) 0.2 Absolute Neuts (auto) 6.7 Absolute Lymphs (auto) 1.49 Total Counted Not Reportable ESR Sodium 135 L Potassium 4.9 Chloride 101 Carbon Dioxide 26.0 Anion Gap 8 BUN 50 H Creatinine 2.08 H Estim Creat Clear Calc 35.75 Est GFR (MDRD) Af Amer 42 L Est GFR (MDRD) Non-Af 35 L BUN/Creatinine Ratio 24.0 H Glucose 376 H Hemoglobin A1c Calcium 8.6 Total Bilirubin AST ALT Alkaline Phosphatase C-React Prot Ext Range Total Protein Albumin Globulin Albumin/Globulin Ratio MRSA (PCR) Negative - Other Studies Radiology: [] reviewed Other Studies: [] Route of nutrition/ use of supplements: [] Nutritional Intake: [] IV Site: [] Elizalde Catheter: [] - Physical Exam General: Alert, Oriented x3, Cooperative, No apparent distress HEENT: Atraumatic, PERRLA, EOMI Neck: Supple, No Nodes Lungs: Clear to auscultation, Normal air movement Cardiovascular: Regular rate, Regular Rhythm Abdomen: Bowel Sounds Present, Soft, Non Tender, Non-Distended, Obese Extremities: - - L BKA Skin: Ulcer/ Wound - Reviewed photos - deep R heel ulcer IV Site: Peripheral, without redness Musculoskeletal: No Tenderness to Palpation of Joints or Extremities - Assessment/Plan Antibiotics: [] Assessment/Plan: [] Active and Suspected Problems Calcaneus pressure ulceration right foot (Acute) R heel chronic infected ulcer - concern for underlying osteo. Had MRI w/o contrast in 07/2017 with no osteo seen. Dr. Lux to see. MRSA pcr neg, wound cx pending. Will stop vanc. Continue meropenem while cxs pending. Surgical plan re: debridement vs amputation is pending. Plan will be for long course of iv abx unless he is able to get definitive amputation (though this seems less likely given past refusals and prior amputation of LLE). Will follow, thank you. D/w pharmacy and Dr. Sharma.
--- NOTE | 2017-09-02 10:06 | PCM.PROGNOTE ---
Patient Problems: Active and Suspected Problems Calcaneus pressure ulceration right foot (Acute) Subjective: This 57 year old male with multiple comorbidities was seen bedside this morning for right infected heel ulcer that has recently deteriorated. He previously completed a long-term course of oral antibiotic. He is well known to me at the wound care center. He denies fever, chill, nausea, vomiting he denies foot or leg pain. He has already undergone a left below-knee amputation and is refusing amputation consideration of the right. He is also refusing go to a custodial with. He is amenable to see infectious disease later this morning. - Physical Exam General: Alert, Oriented x3, Cooperative Extremities: No Calf Tenderness - Right lower extremity, - - Left below-knee amputation Skin: - - Bilateral lower extremity dressings are clean dry and intact without strikethrough or Musculoskeletal: Muscle Wasting, - - No pain with palpation or manipulation of the infected right heel ulcer site Lymphatic: - - Bilateral lymphedema leg right and bilateral thighs noted Neurological: - - lack of sensation to light touch Psych/Mental Status: Normal Affect, Appropriate Vital Signs Temp Pulse Resp BP Pulse Ox 97.0 F L 85 18 159/82 H 96 09/02/17 08:39 09/02/17 08:39 09/02/17 08:39 09/02/17 08:39 09/02/17 08:39 Oxygen Delivery Method Room Air Weight: 140.3 kg Body Mass Index (BMI) 48.4 Finger Stick Blood Glucose 61 Intake and Output for Last 24 Hours 08/31/17 09/01/17 09/02/17 23:59 23:59 23:59 Intake Total 2302 / 2302 180 / 180 Output Total 650 / 650 Balance 1652 / 1652 180 / 180 Laboratory Tests Past 24 Hrs 09/01/17 09/01/17 09/01/17 18:08 18:08 18:08 WBC 9.8 RBC 3.57 L Hgb 9.5 L Hct 30.8 L MCV 86.3 MCH 26.6 L MCHC 30.8 L RDW 15.4 H RDW Differential 48.2 H Plt Count 182 MPV 10.1 Immature Gran % (Auto) 1.300 H Neut % (Auto) 74.0 H Lymph % (Auto) 14.6 L [place] % (Auto) 7.8 Eos % (Auto) 2.2 Baso % (Auto) 0.1 Absolute Neuts (auto) 7.3 Absolute Lymphs (auto) 1.43 Total Counted Not Reportable ESR 77 H Sodium 137 Potassium 5.4 H Chloride 104 Carbon Dioxide 24.0 Anion Gap 9 BUN 52 H Creatinine 1.98 H Estim Creat Clear Calc 37.56 Est GFR (MDRD) Af Amer 45 L Est GFR (MDRD) Non-Af 37 L BUN/Creatinine Ratio 26.3 H Glucose 306 H Hemoglobin A1c 9.2 H Calcium 8.3 L Total Bilirubin 0.40 AST 21 ALT 36 Alkaline Phosphatase 97 C-React Prot Ext Range 27.80 H Total Protein 7.5 Albumin 2.8 L Globulin 4.7 H Albumin/Globulin Ratio 0.6 L MRSA (PCR) 09/01/17 09/02/17 09/02/17 23:19 05:20 05:20 WBC 9.2 RBC 3.57 L Hgb 9.7 L Hct 30.5 L MCV 85.4 MCH 27.2 MCHC 31.8 L RDW 15.2 H RDW Differential 45.8 H Plt Count 191 MPV 10.6 Immature Gran % (Auto) 1.800 H Neut % (Auto) 72.4 H Lymph % (Auto) 16.2 L [place] % (Auto) 7.3 Eos % (Auto) 2.1 Baso % (Auto) 0.2 Absolute Neuts (auto) 6.7 Absolute Lymphs (auto) 1.49 Total Counted Not Reportable ESR Sodium 135 L Potassium 4.9 Chloride 101 Carbon Dioxide 26.0 Anion Gap 8 BUN 50 H Creatinine 2.08 H Estim Creat Clear Calc 35.75 Est GFR (MDRD) Af Amer 42 L Est GFR (MDRD) Non-Af 35 L BUN/Creatinine Ratio 24.0 H Glucose 376 H Hemoglobin A1c Calcium 8.6 Total Bilirubin AST ALT Alkaline Phosphatase C-React Prot Ext Range Total Protein Albumin Globulin Albumin/Globulin Ratio MRSA (PCR) Negative POC Glucose 09/02/17 09/01/17 09/01/17 08:16 22:43 17:30 POC Glucose 406 H 361 H 313 H Medical Necessity - Tobacco Use Smoking Status: Former smoker Tobacco Use: Non-smoker Assessment/Plan Active and Suspected Problems Calcaneus pressure ulceration right foot (Acute) right heel ulcer with fascia and muscle layer exposed with infection - grade 3 Osteomyelitis is suspected of the right calcaneus Diabetes with neuropathy Lymphedema Left below-knee amputation Delayed healing and compliance challenge Other stable right foot, right leg, left leg with fat layer exposed - grade 1 I reviewed and discussed this patient's care planning in this morning. His diagnostic data was reviewed. He does not demonstrate leukocytosis. His white blood cell count was 9.2, sedimentation rate 77, C-reactive protein 27.8. Forefoot x-ray views were reviewed and there is no acute fracture, dislocation, gross soft tissue emphysema, foreign body. Significant edema swelling is noted. There is no osseous destruction to the calcaneus adjacent to the chronic ulceration site or change in periosteal density. His MRSA screening was negative. Aerobic and anaerobic cultures were obtained from the heel and these results are pending. He is on IV antibiotics and PICC line placement is pending. Infectious disease on consultation and input is greatly appreciated. This patient is high risk for limb and life loss due to this condition. His multiple comorbidities and is not able to comply with the recommended treatment plan. I recommended serious consideration on the 80 below or above-knee amputation. Versus debridement to eradicate his acute infection with bone biopsies to confirm and osteomyelitis. Either option has a poor prognosis due to his lymphedema condition and inability to remain nonweightbearing. He refuses to go to a custodial facility. He refuses to consider amputation option and will not proceed with orthopedic consult. Social work will meet with him to review his discharge options later in his admission visit. I plan to perform a soft tissue debridement in the operating room tomorrow morning. At this time bone biopsies will also be obtained of the calcaneus from a clean adjacent site. Informed surgical consents will be signed. Preoperative indications, planned procedure, possible benefits. He understands complications include but are not limited to following: Pain, swelling, continued infection, delayed or nonhealing, loss of limb, function, life. He understands he is at high risk for nonhealing, side effects from long-term antibiotics, etc. The tentative surgical time is tomorrow morning at 7:15 AM. His Eliquis will be held in preparation for this insulin regimen will be adjusted for his n.p.o. anticipated status at midnight. Preoperative optimization of medical management and DVT prophylaxis per primary team is appreciated. Infectious disease consultation is also appreciated. I answered all his questions. Rachele Lux DPM [facility]
--- NOTE | 2017-09-02 12:05 | NURSING ---
wound photo: right foot/toes
--- NOTE | 2017-09-02 12:05 | NURSING ---
wound photo: right lower leg
--- NOTE | 2017-09-02 12:05 | NURSING ---
wound photo: right medial heel
--- NOTE | 2017-09-02 12:06 | NURSING ---
wound photo: left stump
--- NOTE | 2017-09-02 12:12 | EKG12_ITS ---
Test Reason : PRE-OP Blood Pressure : / mmHG Vent. Rate : 086 BPM Atrial Rate : 086 BPM P-R Int : 164 ms QRS Dur : 086 ms QT Int : 384 ms P-R-T Axes : 045 019 038 degrees QTc Int : 459 ms Normal sinus rhythm Normal ECG No previous ECGs available Confirmed by KAMERON CARDENAS, SHAHZAD ([id number]), general expeditor OSCAR PARIKH ([id number]) on 09/14/2017 9:31:36 AM Referred By: Ruddy Sharma Confirmed By:SHAHZAD MELO MD
[2017-09-02 12:26] LABS: Bedside Glucose 401 mg/dL (70-110)
[2017-09-02] MEDS: Glucerna Shake 120 ML LIQUID PO ×3 (13:49→22:38)
[2017-09-02 13:52] VITALS: BP 142/66; PULSE 86; RESP 16; TEMP 36.6; O2SAT 96
--- NOTE | 2017-09-02 14:27 | CASEMGMT ---
Social Work Assessment Referral Date: 09/02 Date of Assessment: 09/02 Reason for Consult: Placement Informant: Dr. Sharma Personal Status Pt presents with pleasant affect as evidenced by smiling and willingness to participate in assessment. Pt reports to live in a one level apartment without entry steps that is handicap accessible. Pt has L BKA and uses a w/c. Other DME in the home is a shower chair, and several grab bars. Pt denies additional needs for home DME. Pt reports to be financially stable and receives SSD. Discuss discharge options and pt states that he does not want to go to a fci as he went once and was stuck for 3.5 years. Support provided and discussed the option of TCU and that they only offer short term placement. Express concern with the the pt returning home shortly after his debridement as he will be non weight bearing. Recommend that the pt at least wait to make a final decision until therapy is able to work with him after surgery. Pt is agreeable and allows SW to have his name placed on TCU list. Placed call to [facility] and placed pt's name on TCU list. Will submit for pre-cert once PT/OT is documented. Substance Use Pt reports history of smoking, but states that he quit cold turkey four years ago. Denies additional substance. Mental Health Hx Pt denies mental health hx. Intervention: Initial assessment completed to determine needs. Discussed options for discharge plan. Pt has not yet confirmed, but was agreeable to being placed on list for TCU as they only offer short-term placement. SW to f/u with pt regarding discharge plan tomorrow, 09/03. Plan: TBD after debridement on 09/03. 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
[2017-09-02 16:31] LABS: Bedside Glucose 363 mg/dL (70-110)
--- NOTE | 2017-09-02 17:58 | PN_ITS ---
Patient Problems: Active and Suspected Problems Calcaneus pressure ulceration right foot (Acute) Subjective: Patient seen and examined today, I talked briefly with podiatry and infectious disease. Patient's blood sugars have been not under good control, I raised his insulin up again this afternoon. - Physical Exam General: Alert, Oriented x3, Cooperative, No apparent distress, Well developed HEENT: Atraumatic, PERRLA, EOMI, Normocephalic Oral: Moist Mucosa Neck: Supple, No JVD, No Nuchal Rigidity, Trachea Midline, Thyroid Normal Size and Texture Lungs: Clear to auscultation, Normal air movement, No rhonchi, No wheeze, No rales Cardiovascular: Regular rate, Regular Rhythm, Normal S1, Normal S2, No murmurs, No Ectopic Activity, PMI Normal, No rub noted, No Gallop Abdomen: Bowel Sounds Present, Soft, Non Tender, Non-Distended, Obese, No hernias noted Extremities: Capillary Refill Less than 3 Seconds Neurological: Cranial nerves II-XII grossly intact, Neuro grossly intact, - - decreased sensation to light touch and pain in the right foot Psych/Mental Status: Normal Affect, Appropriate, Alert and oriented to time, place, person, mood and affect Vital Signs Temp Pulse Resp BP Pulse Ox 97.8 F 86 16 142/66 H 96 09/02/17 13:52 09/02/17 13:52 09/02/17 13:52 09/02/17 13:52 09/02/17 13:52 Oxygen Delivery Method Room Air Weight: 140.3 kg Body Mass Index (BMI) 48.4 Finger Stick Blood Glucose 61 Intake and Output for Last 24 Hours 08/31/17 09/01/17 09/02/17 23:59 23:59 23:59 Intake Total 2302 / 2302 686 / 686 Output Total 650 / 650 Balance 1652 / 1652 686 / 686 Microbiology Past 72 Hours 09/01/17 13:35 Gram Stain - Final Wound - Heel Right Wound Culture - Preliminary Gram negative chip Gram negative chip#2 09/01/17 13:35 Gram Stain - Final Wound - Toe Wound Culture - Preliminary Gram negative chip Gram negative chip#2 09/01/17 23:30 Gram Stain - Final Wound Drainage - Heel Right Laboratory Tests Past 24 Hrs 09/01/17 09/01/17 09/01/17 18:08 18:08 18:08 WBC 9.8 RBC 3.57 L Hgb 9.5 L Hct 30.8 L MCV 86.3 MCH 26.6 L MCHC 30.8 L RDW 15.4 H RDW Differential 48.2 H Plt Count 182 MPV 10.1 Immature Gran % (Auto) 1.300 H Neut % (Auto) 74.0 H Lymph % (Auto) 14.6 L [place] % (Auto) 7.8 Eos % (Auto) 2.2 Baso % (Auto) 0.1 Absolute Neuts (auto) 7.3 Absolute Lymphs (auto) 1.43 Total Counted Not Reportable ESR 77 H Sodium 137 Potassium 5.4 H Chloride 104 Carbon Dioxide 24.0 Anion Gap 9 BUN 52 H Creatinine 1.98 H Estim Creat Clear Calc 37.56 Est GFR (MDRD) Af Amer 45 L Est GFR (MDRD) Non-Af 37 L BUN/Creatinine Ratio 26.3 H Glucose 306 H Hemoglobin A1c 9.2 H Calcium 8.3 L Total Bilirubin 0.40 AST 21 ALT 36 Alkaline Phosphatase 97 C-React Prot Ext Range 27.80 H Total Protein 7.5 Albumin 2.8 L Globulin 4.7 H Albumin/Globulin Ratio 0.6 L MRSA (PCR) 09/01/17 09/02/17 09/02/17 23:19 05:20 05:20 WBC 9.2 RBC 3.57 L Hgb 9.7 L Hct 30.5 L MCV 85.4 MCH 27.2 MCHC 31.8 L RDW 15.2 H RDW Differential 45.8 H Plt Count 191 MPV 10.6 Immature Gran % (Auto) 1.800 H Neut % (Auto) 72.4 H Lymph % (Auto) 16.2 L [place] % (Auto) 7.3 Eos % (Auto) 2.1 Baso % (Auto) 0.2 Absolute Neuts (auto) 6.7 Absolute Lymphs (auto) 1.49 Total Counted Not Reportable ESR Sodium 135 L Potassium 4.9 Chloride 101 Carbon Dioxide 26.0 Anion Gap 8 BUN 50 H Creatinine 2.08 H Estim Creat Clear Calc 35.75 Est GFR (MDRD) Af Amer 42 L Est GFR (MDRD) Non-Af 35 L BUN/Creatinine Ratio 24.0 H Glucose 376 H Hemoglobin A1c Calcium 8.6 Total Bilirubin AST ALT Alkaline Phosphatase C-React Prot Ext Range Total Protein Albumin Globulin Albumin/Globulin Ratio MRSA (PCR) Negative POC Glucose 09/02/17 09/02/17 09/02/17 16:26 12:17 08:16 POC Glucose 363 H 401 H 406 H 09/01/17 22:43 POC Glucose 361 H Medical Necessity - Tobacco Use Smoking Status: Former smoker Tobacco Use: Non-smoker Assessment/Plan Active and Suspected Problems Calcaneus pressure ulceration right foot (Acute) #1 infected neuropathic pressure ulceration right calcaneus-secondary to severe peripheral vascular disease of the right leg, uncontrolled type 2 diabetes, and noncompliance with medical treatment-insulin will be adjusted as needed, antibiotic coverage will be monitored per infectious diseases, surgical treatment per podiatry #2 uncontrolled type 2 diabetes-hemoglobin A1c was elevated, ongoing efforts will be made to adjust the patient's insulin to cover his blood sugars and fully control his diabetes. #3 peripheral vascular disease of the lower extremities secondary to type 2 diabetes #4 stage III chronic kidney disease secondary to type 2 diabetes #5 neuropathy secondary to type 2 diabetes #6 morbid obesity #7 noncompliance with medical regimen Code Visit Inpatient E&M: 34973 Subs Hosp L2
[2017-09-02 18:05] LABS: Bedside Glucose 387 mg/dL (70-110)
[2017-09-02] MEDS: Atorvastatin Calcium 10 MG Tablet PO (22:38)
[2017-09-02] MEDS: Gabapentin 800 MG Tablet 1600 MG PO (22:38)
[2017-09-02] MEDS: Latanoprost 0.005% 1 Bottle 1 DRP EACH EYE (22:42)
[2017-09-02 22:59] VITALS: BP 154/82; PULSE 76; RESP 18; TEMP 36.2; O2SAT 98
[2017-09-02 23:05] VITALS: PULSE 76; RESP 18; O2SAT 98
[2017-09-02 23:20] LABS: Bedside Glucose 312 mg/dL (70-110)
[2017-09-03] VITALS (13 sets, daily range): BP systolic 112–158; BP diastolic 54–70; PULSE 75–80; RESP 14–18; TEMP 36.2–36.7; O2SAT 92–97; BMI 48.4
[2017-09-03 05:43] LABS: Absolute Lymphocyte Count 1.35 X10^3/ul (0.83-4.51); Absolute Neutrophil Count 5.5 X10^3/uL (2.0-7.7); Basophil# 0.02 X10^3/uL; Basophil% 0.3 % (0-1); Eosinophil# 0.23 X10^3/uL; Hematocrit 28.6 % (40-54); Lymphocyte # 1.35 X10^3/ul (4.0); Lymphocyte % 17.7 % (19-41); Mean Corp Hgb Conc 31.5 g/gl (32-36); Mean Corpuscular Hgb 26.6 pg (27.0-32.0); Mean Corpuscular Volume 84.6 fL (80-94); Mean Platelet Vol. 10.2 fl (6.2-12.0); Monocyte# 0.44 X10^3/uL; Monocyte% 5.8 % (0-10); Neutrophil # 5.49 X10^3/uL (2.7-7.7); Platelet Count 162 K/mm3 (150-450); RBC Distribution Width CV 15.4 % (11.6-14.6); RBC Distribution Width SD 47.3 fl (35.1-43.9); Red Blood Count 3.38 M/mm3 (4.6-6.2); White Blood Count 7.6 K/mm3 (4.4-11.0)
[2017-09-03 05:47] LABS: POSITIVE COUNT NO; POSITIVE DIFFERENTIAL NO; POSITIVE MORPHOLOGY NO
[2017-09-03 05:52] LABS: Anion Gap 6 (5-15); BUN 49 mg/dL (7-18); BUN/Creat Ratio 23.7 RATIO (10-20); Calcium,Total 8.4 mg/dL (8.5-10.1); Chloride 102 mmol/L (98-107); Creatinine, Serum 2.07 mg/dL (0.70-1.30); EST Glomerular Filtration Rate 35 mL/min (>60); Est Glom Filt Rate - Afr Amer 42 mL/min (>60); Estimated Creatinine Clearance 35.92 ml/min; Glucose 321 mg/dL (74-106); Potassium 4.8 mmol/L (3.5-5.1); Sodium Level 135 mmol/L (136-145)
[2017-09-03 06:16] LABS: International Normalized Ratio 1.1; Prothrombin Time (Protime)PT. 14.5 SECONDS (11.7-14.9)
[2017-09-03 06:26] LABS: Bedside Glucose 312 mg/dL (70-110)
--- NOTE | 2017-09-03 07:15 | BON_PTH ---
PATIENT: DEL BARRIOS LOC: MS2 U#:[id number] AGE/SX: 57/M ROOM: [facility] [place] RE09/01/[address]: Addis Barbour MD : [id number] BED: 1 DIS: 09/07/2017 SPEC #: [id number] RECD: 09/03/17 11:12 STATUS: KAY DAMIAN #: [id number] KEYONNA: 09/03/17 07:[address]: Rachele Lux DEPT: SURGICAL PATHOLOGY RECD BY: Arley Cavazos ENTERED: 09/03/17 11:30 SP TYPE: Bone OTHR DR: Dr. Ruddy Sharma, DO Dr. Dale Daigle MD Out of [facility] Doctor Tissues: Bone of foot, NOS Procedures: Decalcification bone/plaque Surgery Specimen Level III HEADER OPERATION: Debridement heel ulcer, with bone biopsy PRE-OP DIAGNOSIS: right heel ulcer, osteomyelitis TISSUE SUBMITTED: Calcaneus bone biopsy MICROSCOPIC DIAGNOSIS Calcaneus bone, biopsy: Fragments of bone and dense fibroconnective tissue with reactive changes, negative for acute osteomyelitis. BRYN:charito 09/08/17 MICROSCOPIC DESCRIPTION Slides are reviewed. GROSS DESCRIPTION Received in fixative is one container labeled with the patient's name and designated calcaneus bone biopsy. The specimen consists of multiple fragments of bone that in aggregate measure 0.9 x 0.9 x 0.3 cm. The entire specimen is submitted in one cassette after decalcification. / BRYN:charito 09/03/17 TC:5 CPT: 06177, 81646
--- NOTE | 2017-09-03 07:15 | RAD_ITS ---
STUDY: X-RAY - RIGHT CALCANEUS REASON FOR EXAM: Male, 57 years old. Right os calcis bone biopsy. TECHNIQUE: Single lateral view of the calcaneus was obtained. Fluoroscopy time: 4 seconds. COMPARISON: None available. Correlation right foot 09/01/2017. FINDINGS: Calcaneus is incompletely seen with metal biopsy cylindrical bone biopsy instrument noted projecting over the superior posterior calcaneus with inferior serrated margins. Radiologist not present during procedure. Please see operative report for details. RAD/Calcaneus min 2 Views IMPRESSION: Bone biopsy superior posterior calcaneus as described. Please see operative report for details. Electronically Signed: Dale Allen, at 14:36 EDT Tel , Service support ,
[2017-09-03] MEDS: Bupivacaine 0.25% 30 ML Vial (09:23)
[2017-09-03 10:30] LABS: Bedside Glucose 278 mg/dL (70-110)
--- NOTE | 2017-09-03 10:45 | PCM.IMDPSTOP ---
Problem List (1) Ulcer of right foot with necrosis of bone Status: Chronic (2) Osteomyelitis Status: Suspected (3) Type 2 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with diabetic polyneuropathy Status: Chronic Immediate Post-Op Note Date of Procedure: 09/03/17 - instruction assistant principal: Anselmo Mahajan PGY1 Primary Surgeon/Physician: Rachele Lux DPM distributing clerk: none Pre-Operative Diagnosis: necrotic ulcer right heel with bone exposed (suspected osteomyelitis) Post-Operative Diagnosis: necrotic ulcer right heel with bone exposed (suspected osteomyelitis) Surgery/Procedure Performed:: debridement of right heel ulcer including bone. bone biopsy right heel Description of Surgical Findings:: no purulence after debridement hemostasis controlled The patient to the procedure well. He was transferred to the PACU with vital signs stable and vascular status intact the right lower extremity. Postoperative orders were entered electronically. I will continue to follow while in house. Estimated Blood Loss: < 200 mL Specimen's removed: Bone right calcaneus sent to pathology microbiology (aerobic, anaerobic, acid-fast, fungal) Type of Anesthesia:: Local MAC - pReoperative injection: 1:1 mix of 1% lidocaine plain and 0.5% Marcaine plain administered in right ankle block fashion proximal to the level of infection - Admit VTE Documentation VTE Present on Admission: No VTE Mechan Device Prophylaxis: None VTE Pharm Prophylaxis ordered?: Yes
--- NOTE | 2017-09-03 10:50 | OP.PN_ITS ---
Problem List (1) Ulcer of right foot with necrosis of bone Status: Chronic (2) Osteomyelitis Status: Suspected (3) Type 2 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with diabetic polyneuropathy Status: Chronic Immediate Post-Op Note Date of Procedure: 09/03/17 - retail loan originator assistant: Anselmo Mahajan PGY1 Primary Surgeon/Physician: Rachele Lxu DPM route sales trainee: none Pre-Operative Diagnosis: necrotic ulcer right heel with bone exposed (suspected osteomyelitis) Post-Operative Diagnosis: necrotic ulcer right heel with bone exposed ( suspected osteomyelitis) Surgery/Procedure Performed:: debridement of right heel ulcer including bone. bone biopsy right heel Description of Surgical Findings:: no purulence after debridement hemostasis controlled The patient to the procedure well. He was transferred to the PACU with vital signs stable and vascular status intact the right lower extremity. Postoperative orders were entered electronically. I will continue to follow while in house. Estimated Blood Loss: < 200 mL Specimen's removed: Bone right calcaneus sent to pathology microbiology (aerobic , anaerobic, acid-fast, fungal) Type of Anesthesia:: Local MAC - pReoperative injection: 1:1 mix of 1% lidocaine plain and 0.5% Marcaine plain administered in right ankle block fashion proximal to the level of infection - Admit VTE Documentation VTE Present on Admission: No VTE Mechan Device Prophylaxis: None VTE Pharm Prophylaxis ordered?: Yes
--- NOTE | 2017-09-03 10:50 | PCM.OPRPT ---
Problem List (1) Ulcer of right foot with necrosis of bone Status: Chronic (2) Osteomyelitis Status: Suspected (3) Type 2 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with diabetic polyneuropathy Status: Chronic Report of Operation Date of Procedure: 09/03/17 - assistant food service manager: Anselmo Mahajan PGY1 Pre-Operative Diagnosis: necrotic ulcer right heel with bone exposed (suspected osteomyelitis) Post-Operative Diagnosis: necrotic ulcer right heel with bone exposed (suspected osteomyelitis) Surgery/Procedure Performed:: debridement of right heel ulcer including bone. bone biopsy right heel Description of Surgical Findings:: Hemostasis: Midcalf tourniquet 250 mmHg Materials: 3-0 Prolene Complications: None service center manager: none Type of Anesthesia:: Local MAC - pReoperative injection: 1:1 mix of 1% lidocaine plain and 0.5% Marcaine plain administered in right ankle block fashion proximal to the level of infection Specimen's removed: Bone right calcaneus sent to pathology microbiology (aerobic, anaerobic, acid-fast, fungal) Estimated Blood Loss (mL): < 200 mL Description of Procedure: Indications: This 57-year-old male with multiple comorbidities including diabetes with neuropathy and kidney disease, obesity, and lymphedema who is previously well known to me for multiple lower extremity ulcers was admitted to the hospital for infected right heel ulcer. This wound has been present for nearly 2 months and has recently deteriorated with necrotic tissue, odor, and inability to heal. X-rays did not demonstrate signs of osteomyelitis and his MRI from about 1 months ago was also negative for osteomyelitis. However I am suspicious at this time due to the chronicity of the wound and the close proximity with devitalized muscle and fascial tissue. He did have elevated inflammatory infection markers such as ESR and CRP at time of admission. Clinically there is a 4 cm x 5.5 cm x 1.6 cm to the plantar medial aspect of the right heel with exposed muscle fascia and recently exposed bone is suspected. There is an odor and there is no anna purulence or undermining or tracking noted on clinical exam. The preoperative indications, planned procedure, possible benefits, risks, complications, and anticipated healing time management were discussed in detail the patient. He understands and elects to proceed with surgery at this time. No guarantees are made. Surgical limb and surgical consent were signed. I answered all his questions. He was medically optimized by the hospitalist team and his preoperative diagnostic data was reviewed. Procedure in detail: The patient to the operating room via cart and placed on the operating table in supine position. The leg was bumped with blankets to allow good exposure of the medial heel. A well-padded tourniquet was placed and preoperative injection was administered by the podiatry team. He is already on IV antibiotics that were initiated on the medicine floor. The anesthesia team initiated light MAC sedation. The right lower extremity was prepped and draped in the usual aseptic manner. Surgery began as a following: Attention was first directed to the right heel in which necrotic devitalized tissue was noted. A versa jet was used for debridement on setting 8 two remove nonviable subcutaneous and muscle tissue. Upon debridement of nonviable tissue there was some bone that was also superficially debrided this was healthy and bleeding in good clean margins were noted there was no remaining necrotic tissue or undermining odor noted. The peripheral callus and the wound was also debrided with a 15 blade. The postoperative debridements measured 5.2 cm x 6.1 cm x 1.6 cm. Pressure was applied to maintain hemostasis. An Esmarch bandage was used to exsanguinate the limb and the tourniquet was inflated. Electrocauterization was used in a sparing manner for any continued bleeders. Next attention was directed to the bone biopsy. A clean 15 blade was used to make a half a centimeter linear incision to the posterior lateral heel through the skin and blunt dissection was performed right down to the bone and a Gene needle biopsy kit trocar was placed to enter the posterior plantar heel in which a bone specimen was extracted. This was sent to pathology microbiology for further testing to see if osteomyelitis is present. This was copiously irrigated with normal saline with pulse lavage. Next the tourniquet was deflated and additional pressure and electrocauterization was performed. Gelfoam was applied and Adaptic soaked in Betadine was also applied. It is noted he did have other wounds to the right leg and forefoot clean Adaptic and gauze are applied to the sites and everything was held additionally in place with abdominal pads, Kerlix, and Jose Antonio wraps. Brisk capillary refill time is noted prior to applying the dressing to all digits of the right foot and periwound site that was aggressively debrided. The bone biopsy placement site was also confirmed with intraoperative C-arm fluoroscopy. Bone is relatively firm and no visualized discoloration or purulence was noted. After procedure: The patient tolerated the procedure well and transported to the PACU vital signs stable and vascular status intact to the right lower extremity. We transferred back to the medicine floor upon continued stability. He was advised to elevate for pain and inflammation management. Strict nonweightbearing is recommended and orders are placed. To continue with proper glycemic control and nutritional supplementation optimize healing. He understands he is at high risk for limb loss and due to this condition. There was a lengthy discussion with him prior to proceeding with this debridement in regards to having a below or above-knee amputation. He is not really a great candidate for this either due to his lymphedema and significant noncompliance. Significant reduction in edema and decreased wound inflammation and size are noted since he has been in the hospital receiving care as compared to his most recent wound care center visit. He would benefit the most from going to a longterm and this is imperative for the success of saving his limb. He is also been refusing to go to longterm and this contributes to poor prognosis. To continue on IV antibiotics per infectious disease team in which input is greatly appreciated. The pathology and microbiology specimen results from this surgery are pending at this time. Continue to follow his case close while in house. Management and DVT prophylaxis per primary team are appreciated. Rachele Lux, [facility]
--- NOTE | 2017-09-03 11:03 | OP.PCM_ITS ---
Problem List (1) Ulcer of right foot with necrosis of bone Status: Chronic (2) Osteomyelitis Status: Suspected (3) Type 2 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with diabetic polyneuropathy Status: Chronic Report of Operation Date of Procedure: 09/03/17 - under water assistant: Anselmo Mahajan PGY1 Pre-Operative Diagnosis: necrotic ulcer right heel with bone exposed (suspected osteomyelitis) Post-Operative Diagnosis: necrotic ulcer right heel with bone exposed ( suspected osteomyelitis) Surgery/Procedure Performed:: debridement of right heel ulcer including bone. bone biopsy right heel Description of Surgical Findings:: Hemostasis: Midcalf tourniquet 250 mmHg Materials: 3-0 Prolene Complications: None latin dancer: none Type of Anesthesia:: Local MAC - pReoperative injection: 1:1 mix of 1% lidocaine plain and 0.5% Marcaine plain administered in right ankle block fashion proximal to the level of infection Specimen's removed: Bone right calcaneus sent to pathology microbiology (aerobic , anaerobic, acid-fast, fungal) Estimated Blood Loss (mL): < 200 mL Description of Procedure: Indications: This 57-year-old male with multiple comorbidities including diabetes with neuropathy and kidney disease, obesity, and lymphedema who is previously well known to me for multiple lower extremity ulcers was admitted to the hospital for infected right heel ulcer. This wound has been present for nearly 2 months and has recently deteriorated with necrotic tissue, odor, and inability to heal. X-rays did not demonstrate signs of osteomyelitis and his MRI from about 1 months ago was also negative for osteomyelitis. However I am suspicious at this time due to the chronicity of the wound and the close proximity with devitalized muscle and fascial tissue. He did have elevated inflammatory infection markers such as ESR and CRP at time of admission. Clinically there is a 4 cm x 5.5 cm x 1.6 cm to the plantar medial aspect of the right heel with exposed muscle fascia and recently exposed bone is suspected. There is an odor and there is no anna purulence or undermining or tracking noted on clinical exam. The preoperative indications, planned procedure, possible benefits, risks, complications, and anticipated healing time management were discussed in detail the patient. He understands and elects to proceed with surgery at this time. No guarantees are made. Surgical limb and surgical consent were signed. I answered all his questions. He was medically optimized by the hospitalist team and his preoperative diagnostic data was reviewed. Procedure in detail: The patient to the operating room via cart and placed on the operating table in supine position. The leg was bumped with blankets to allow good exposure of the medial heel. A well-padded tourniquet was placed and preoperative injection was administered by the podiatry team. He is already on IV antibiotics that were initiated on the medicine floor. The anesthesia team initiated light MAC sedation. The right lower extremity was prepped and draped in the usual aseptic manner. Surgery began as a following: Attention was first directed to the right heel in which necrotic devitalized tissue was noted. A versa jet was used for debridement on setting 8 two remove nonviable subcutaneous and muscle tissue. Upon debridement of nonviable tissue there was some bone that was also superficially debrided this was healthy and bleeding in good clean margins were noted there was no remaining necrotic tissue or undermining odor noted. The peripheral callus and the wound was also debrided with a 15 blade. The postoperative debridements measured 5.2 cm x 6.1 cm x 1.6 cm. Pressure was applied to maintain hemostasis. An Esmarch bandage was used to exsanguinate the limb and the tourniquet was inflated. Electrocauterization was used in a sparing manner for any continued bleeders. Next attention was directed to the bone biopsy. A clean 15 blade was used to make a half a centimeter linear incision to the posterior lateral heel through the skin and blunt dissection was performed right down to the bone and a Gene needle biopsy kit trocar was placed to enter the posterior plantar heel in which a bone specimen was extracted. This was sent to pathology microbiology for further testing to see if osteomyelitis is present. This was copiously irrigated with normal saline with pulse lavage. Next the tourniquet was deflated and additional pressure and electrocauterization was performed. Gelfoam was applied and Adaptic soaked in Betadine was also applied. It is noted he did have other wounds to the right leg and forefoot clean Adaptic and gauze are applied to the sites and everything was held additionally in place with abdominal pads, Kerlix, and Jose Antonio wraps. Brisk capillary refill time is noted prior to applying the dressing to all digits of the right foot and periwound site that was aggressively debrided. The bone biopsy placement site was also confirmed with intraoperative C-arm fluoroscopy. Bone is relatively firm and no visualized discoloration or purulence was noted. After procedure: The patient tolerated the procedure well and transported to the PACU vital signs stable and vascular status intact to the right lower extremity. We transferred back to the medicine floor upon continued stability. He was advised to elevate for pain and inflammation management. Strict nonweightbearing is recommended and orders are placed. To continue with proper glycemic control and nutritional supplementation optimize healing. He understands he is at high risk for limb loss and due to this condition. There was a lengthy discussion with him prior to proceeding with this debridement in regards to having a below or above-knee amputation. He is not really a great candidate for this either due to his lymphedema and significant noncompliance. Significant reduction in edema and decreased wound inflammation and size are noted since he has been in the hospital receiving care as compared to his most recent wound care center visit. He would benefit the most from going to a fdc and this is imperative for the success of saving his limb. He is also been refusing to go to fdc and this contributes to poor prognosis. To continue on IV antibiotics per infectious disease team in which input is greatly appreciated. The pathology and microbiology specimen results from this surgery are pending at this time. Continue to follow his case close while in house. Management and DVT prophylaxis per primary team are appreciated. Rachele Lux, [facility]
[2017-09-03 12:05] LABS: Bedside Glucose 259 mg/dL (70-110)
[2017-09-03] MEDS: Clopidogrel Bisulfate 75 MG Tablet PO (12:11)
[2017-09-03] MEDS: Pantoprazole Sodium 40 MG Tablet PO (12:11)
[2017-09-03] MEDS: Losartan Potassium 50 MG Tablet PO (12:11)
[2017-09-03] MEDS: BRIMONIDINE 0.2% 5ML BOTTLE 1 DRP EACH EYE ×2 (12:12→22:14)
[2017-09-03] MEDS: Gabapentin 600 MG Tablet PO (12:12)
[2017-09-03] MEDS: Nebivolol HCl 10 MG Tablet PO (12:12)
[2017-09-03] MEDS: Glucerna Shake 120 ML LIQUID PO ×3 (13:37→22:16)
--- NOTE | 2017-09-03 14:41 | CASEMGMT ---
[facility], Meera, called stating that they have been providing home health services to the patient. I updated [facility] that patient is planning to DC to TCU rather than home. [facility] requests that they be notified when patient is discharged from TCU to home and states that they will then resume care. [facility] ([place]) : [phone]
--- NOTE | 2017-09-03 15:20 | CASEMGMT ---
Social Work Met with pt in room to discuss discharge plan. Reviewed with pt physician recommendations for SNF placement as pt is right BKA and non weight bearing on LLE and concern for healing if pt returns home alone. Pt states that he has little to no support system at home. Pt also expressing concerns that if he does not return home he will not be able to pay rent and that his cell phone and check book are at home along with groceries that will spoil if he does not go home to take care of this. SW reviewed with pt importance of prioritizing his health and suggested pt contact friends or family that can go to home to clean out refrigerator and bring pt his cell phone and checkbook to pay bills. Pt states emergency contact on demo sheet does not drive and is unable to assist. Pt does have a brother who may be able to assist. SW suggested pt call landlord for assistance and SW obtained number of apartment complex and assisted pt in placing phone call to speak with division human resources manager about rent and cleaning out apt. After pt spoke with digital marketing project manager he states she was willing to assist him with areas of concern. After further conversation pt states he is willing to go to TCU for short term stay prior to returning home. Phone call to [facility] in TCU and they are able to accept pt but insurance authorization has not been given at this point. Physician aware. Pt will remain in the hospital over the weekend and will await determination from insurance company. Pt is aware of this and agreeable to d/c plan. Plan: TCU, pending insurance authorization RANDALL Meng
[2017-09-03 16:51] LABS: Bedside Glucose 334 mg/dL (70-110)
--- NOTE | 2017-09-03 17:56 | PN_ITS ---
Patient Problems: Active and Suspected Problems Calcaneus pressure ulceration right foot (Acute) Osteomyelitis (Suspected) Subjective: Patient seen and examined today, blood sugars are still not under good control, I bumped up his Levemir and NovoLog at meals today. Patient-according to social media marketing specialist-refuse physical therapy yesterday and so there were no notes that would allow the patient to be discharged over the weekend with the consent of his insurance carrier to the TCU. I brought this up to the patient, he did not seem to realize that he refused physical therapy-he was being transferred by physical therapy and felt that he would become unstable and fall and that is why he refused to let them do this. I explained to him that he must comply with physical therapy for us to have suitable notes for him to go to TCU. - Physical Exam General: Alert, Oriented x3, Cooperative, No apparent distress, Well developed HEENT: Atraumatic, PERRLA, EOMI, Normocephalic Oral: Moist Mucosa Neck: Supple, No JVD, No Nuchal Rigidity, Trachea Midline, Thyroid Normal Size and Texture Lungs: Clear to auscultation, Normal air movement, No rhonchi, No wheeze, No rales Cardiovascular: Regular rate, Regular Rhythm, Normal S1, Normal S2, No murmurs, No Ectopic Activity, PMI Normal, No rub noted, No Gallop Abdomen: Bowel Sounds Present, Soft, Non Tender, Non-Distended, Obese, No hernias noted Neurological: Cranial nerves II-XII grossly intact, Neuro grossly intact Psych/Mental Status: Normal Affect, Appropriate, Alert and oriented to time, place, person, mood and affect Vital Signs Temp Pulse Resp BP Pulse Ox 97.6 F L 79 14 113/54 L 97 09/03/17 16:00 09/03/17 16:00 09/03/17 16:00 09/03/17 16:00 09/03/17 16:00 Oxygen Flow Rate (L/min) 2 Oxygen Delivery Method Room Air Weight: 140.3 kg Body Mass Index (BMI) 48.4 Finger Stick Blood Glucose 278 Intake and Output for Last 24 Hours 09/01/17 09/02/17 09/03/17 23:59 23:59 23:59 Intake Total 2302 / 2302 686 / 686 2699 / 2699 Output Total 650 / 650 1200 / 1200 Balance 1652 / 1652 686 / 686 1499 / 1499 Microbiology Past 72 Hours 09/01/17 23:30 Gram Stain - Final Wound Drainage - Heel Right Wound Culture - Preliminary Gram negative chip Gram negative chip#2 09/01/17 13:35 Gram Stain - Final Wound - Heel Right Wound Culture - Preliminary Gram negative chip Gram negative chip#2 Gram Positive Cocci Gram negative cocco bacillus Anaerobic Culture - Preliminary Checking for anaerobes, further studies to follow. 09/01/17 13:35 Gram Stain - Final Wound - Toe Wound Culture - Preliminary Gram negative chip Gram negative chip#2 Gram Positive Cocci Gram negative cocco bacillus Anaerobic Culture - Preliminary Checking for anaerobes, further studies to follow. Laboratory Tests Past 24 Hrs 09/03/17 09/03/17 09/03/17 05:15 05:15 05:15 WBC 7.6 RBC 3.38 L Hgb 9.0 L Hct 28.6 L MCV 84.6 MCH 26.6 L MCHC 31.5 L RDW 15.4 H RDW Differential 47.3 H Plt Count 162 MPV 10.2 Immature Gran % (Auto) 1.200 H Neut % (Auto) 72.0 H Lymph % (Auto) 17.7 L Duchesne % (Auto) 5.8 Eos % (Auto) 3.0 Baso % (Auto) 0.3 Absolute Neuts (auto) 5.5 Absolute Lymphs (auto) 1.35 Total Counted Not Reportable PT 14.5 INR 1.1 APTT 38.0 H Sodium 135 L Potassium 4.8 Chloride 102 Carbon Dioxide 27.0 Anion Gap 6 BUN 49 H Creatinine 2.07 H Estim Creat Clear Calc 35.92 Est GFR (MDRD) Af Amer 42 L Est GFR (MDRD) Non-Af 35 L BUN/Creatinine Ratio 23.7 H Glucose 321 H Calcium 8.4 L POC Glucose 09/03/17 09/03/17 09/03/17 16:43 11:57 10:26 POC Glucose 334 H 259 H 278 H 09/03/17 09/02/17 09/02/17 06:21 22:40 17:53 POC Glucose 312 H 312 H 387 H Medical Necessity - Tobacco Use Smoking Status: Former smoker Tobacco Use: Non-smoker Assessment/Plan Active and Suspected Problems Calcaneus pressure ulceration right foot (Acute) Osteomyelitis (Suspected) #1 infected neuropathic pressure ulceration right calcaneus-secondary to severe peripheral vascular disease of the right leg, uncontrolled type 2 diabetes, and noncompliance with medical treatment-insulin will be adjusted , antibiotic coverage will be monitored per infectious diseases, surgical treatment per podiatry #2 uncontrolled type 2 diabetes-hemoglobin A1c was elevated, ongoing efforts will be made to adjust the patient's insulin to cover his blood sugars and fully control his diabetes. If his total Levemir dosage daily is above 200 units, I will have to resort to placing the patient on U500 insulin #3 peripheral vascular disease of the lower extremities secondary to type 2 diabetes #4 stage III chronic kidney disease secondary to type 2 diabetes #5 neuropathy secondary to type 2 diabetes #6 morbid obesity #7 noncompliance with medical regimen Code Visit Inpatient E&M: 24405 Subs Hosp L2
[2017-09-03] MEDS: Gabapentin 800 MG Tablet 1600 MG PO (22:13)
[2017-09-03] MEDS: Atorvastatin Calcium 10 MG Tablet PO (22:13)
[2017-09-03] MEDS: Latanoprost 0.005% 1 Bottle 1 DRP EACH EYE (22:17)
[2017-09-03 22:40] LABS: Bedside Glucose 244 mg/dL (70-110)
[2017-09-04 05:16] VITALS: BP 177/84; PULSE 74; RESP 18; TEMP 37.5; O2SAT 100
[2017-09-04] MEDS: Enoxaparin 40 MG/0.4 ML Syringe SC (05:24)
[2017-09-04] MEDS: Acetaminophen 325 MG Tablet 650 MG PO (06:42)
--- NOTE | 2017-09-04 07:10 | PN_ITS ---
Patient Problems: Active and Suspected Problems Calcaneus pressure ulceration right foot (Acute) Osteomyelitis (Suspected) Subjective: Patient was seen this morning for follow up on right heel debridement completed yesterday by Dr. Lux. Patient was resting in bed, and he states relates he slept well last night. Patient with no acute overnight events. - Physical Exam General: Alert, Oriented x3, Cooperative, No apparent distress Extremities: Capillary Refill Less than 3 Seconds, No Calf Tenderness, - - Right foot: s/p heel debridement down to bone, there is no active bleeding, margins and base viable at this point, multiple other superficial ulcerations to the foot and leg with are viable as well - there is no maloder, no fluctuance , no necrosis, no evidence of acute ischemia, no blistering, no crepitus, no streaking, no visible cellulitis at this point, sensation significantly decreased c/w peripheral neuropathy (chronic). There is chronic right lower extremity lymphedema controlled with compression dressing. Psych/Mental Status: Appropriate, Alert and oriented to time, place, person, mood and affect Vital Signs Temp Pulse Resp BP Pulse Ox 99.5 F H 74 18 177/84 H 100 09/04/17 05:16 09/04/17 05:16 09/04/17 05:16 09/04/17 05:16 09/04/17 05:16 Oxygen Flow Rate (L/min) 2 Oxygen Delivery Method Nasal Cannula Weight: 140.3 kg Body Mass Index (BMI) 48.4 Finger Stick Blood Glucose 278 Intake and Output for Last 24 Hours 09/02/17 09/03/17 09/04/17 23:59 23:59 23:59 Intake Total 686 / 686 2699 / 2699 844 / 844 Output Total 1200 / 1200 1540 / 1540 Balance 686 / 686 1499 / 1499 -696 / -696 Microbiology Past 72 Hours 09/01/17 23:30 Gram Stain - Final Wound Drainage - Heel Right Wound Culture - Preliminary Gram negative chpi Gram negative chip#2 09/01/17 13:35 Gram Stain - Final Wound - Heel Right Wound Culture - Preliminary Gram negative chip Gram negative chip#2 Gram Positive Cocci Gram negative cocco bacillus Anaerobic Culture - Preliminary Checking for anaerobes, further studies to follow. 09/01/17 13:35 Gram Stain - Final Wound - Toe Wound Culture - Preliminary Gram negative chip Gram negative chip#2 Gram Positive Cocci Gram negative cocco bacillus Anaerobic Culture - Preliminary Checking for anaerobes, further studies to follow. POC Glucose 09/03/17 09/03/17 09/03/17 22:15 16:43 11:57 POC Glucose 244 H 334 H 259 H 09/03/17 10:26 POC Glucose 278 H Medical Necessity - Tobacco Use Smoking Status: Former smoker Tobacco Use: Non-smoker Assessment/Plan Active and Suspected Problems Calcaneus pressure ulceration right foot (Acute) Osteomyelitis (Suspected) Heel ulcer down to bone w/ concern for osteomyelitis right calcaneus s/p debridement on 09/03/17 Multiple right foot/leg superficial ulcerations Diabetes with peripheral neuropathy Lymphedema s/p left BKA s/p debridement of right heel ulceration - site stable, will continue with local wound care - adaptic with overlying gauze dressing; also gauze dressings to the other foot/leg ulcerations with overlying aislinn banding from foot to above knee to control edema from chronic lymphedema. Will continue to monitor for healing. Keep right heel offloaded at all times, no weightbearing right foot. Follow intraoperative cultures and pathology (pending at this time), continue with antibiotic therapy per Infectious Disease. Patient's diabetes and other medical problems are managed by the medicine team. Podiatry will continue to follow, please contact with any questions.
[2017-09-04 08:11] VITALS: BP 155/61; PULSE 76; RESP 16; TEMP 36.6; O2SAT 96
[2017-09-04 08:11] LABS: Bedside Glucose 224 mg/dL (70-110)
[2017-09-04] MEDS: Gabapentin 600 MG Tablet PO (08:28)
--- NOTE | 2017-09-04 10:23 | PN_ITS ---
Patient Problems: Active and Suspected Problems Calcaneus pressure ulceration right foot (Acute) Osteomyelitis (Suspected) Subjective: Patient was seen and examined today, his blood sugars are a little bit better, I have elected not to increase his basal insulin or insulin with meals at this time. I will reassess his blood sugars this afternoon. He is complaining of some right heel pain-his dressing was changed this morning by podiatry, I will place him on [place] for pain - Physical Exam General: Alert, Oriented x3, Cooperative, No apparent distress, Well developed, Well nourished HEENT: Atraumatic, PERRLA, EOMI, Normocephalic Oral: Moist Mucosa Neck: Supple, No JVD, Trachea Midline, Thyroid Normal Size and Texture Lungs: Clear to auscultation, Normal air movement, No rhonchi, No wheeze, No rales Cardiovascular: Regular rate, Regular Rhythm, Normal S1, Normal S2, No murmurs, No Ectopic Activity Abdomen: Bowel Sounds Present, Soft, Non Tender, Non-Distended, Obese Neurological: Cranial nerves II-XII grossly intact, Neuro grossly intact, Muscle tone normal, Coordination normal Psych/Mental Status: Normal Affect, Appropriate, Alert and oriented to time, place, person, mood and affect Vital Signs Temp Pulse Resp BP Pulse Ox 97.9 F 76 16 155/61 H 96 09/04/17 08:11 09/04/17 08:11 09/04/17 08:11 09/04/17 08:11 09/04/17 08:11 Oxygen Flow Rate (L/min) 2 Oxygen Delivery Method Room Air Weight: 140.3 kg Body Mass Index (BMI) 48.4 Finger Stick Blood Glucose 278 Intake and Output for Last 24 Hours 09/02/17 09/03/17 09/04/17 23:59 23:59 23:59 Intake Total 686 / 686 2699 / 2699 844 / 844 Output Total 1200 / 1200 1540 / 1540 Balance 686 / 686 1499 / 1499 -696 / -696 Microbiology Past 72 Hours 09/01/17 23:30 Gram Stain - Final Wound Drainage - Heel Right Wound Culture - Preliminary Gram negative chip Gram negative chip#2 09/01/17 13:35 Gram Stain - Final Wound - Heel Right Wound Culture - Preliminary Gram negative chip Gram negative chip#2 Gram Positive Cocci Gram negative cocco bacillus Anaerobic Culture - Preliminary Checking for anaerobes, further studies to follow. 09/01/17 13:35 Gram Stain - Final Wound - Toe Wound Culture - Preliminary Gram negative chip Gram negative chip#2 Gram Positive Cocci Gram negative cocco bacillus Anaerobic Culture - Preliminary Checking for anaerobes, further studies to follow. POC Glucose 09/04/17 09/03/17 09/03/17 08:03 22:15 16:43 POC Glucose 224 H 244 H 334 H 09/03/17 09/03/17 11:57 10:26 POC Glucose 259 H 278 H Medical Necessity - Tobacco Use Smoking Status: Former smoker Tobacco Use: Non-smoker Assessment/Plan Active and Suspected Problems Calcaneus pressure ulceration right foot (Acute) Osteomyelitis (Suspected) #1 infected neuropathic pressure ulceration right calcaneus-secondary to severe peripheral vascular disease of the right leg, uncontrolled type 2 diabetes, and noncompliance with medical treatment-insulin will be adjusted if needed today, antibiotic coverage will be monitored per infectious diseases-currently patient is on meropenem day number 4, surgical treatment per podiatry #2 uncontrolled type 2 diabetes-blood sugars will be monitored and insulin desiree adjusted accordingly #3 peripheral vascular disease of the lower extremities secondary to type 2 diabetes #4 stage III chronic kidney disease secondary to type 2 diabetes #5 neuropathy secondary to type 2 diabetes #6 morbid obesity #7 noncompliance with medical regimen Code Visit Inpatient E&M: 81821 Subs Hosp L2
[2017-09-04] MEDS: BRIMONIDINE 0.2% 5ML BOTTLE 1 DRP EACH EYE ×2 (10:44→21:02)
[2017-09-04] MEDS: Losartan Potassium 50 MG Tablet PO (10:45)
[2017-09-04] MEDS: Glucerna Shake 120 ML LIQUID PO ×4 (10:45→21:02)
[2017-09-04] MEDS: Nebivolol HCl 10 MG Tablet PO (10:45)
[2017-09-04] MEDS: Pantoprazole Sodium 40 MG Tablet PO (10:46)
[2017-09-04] MEDS: Clopidogrel Bisulfate 75 MG Tablet PO (10:46)
[2017-09-04 11:56] LABS: Bedside Glucose 201 mg/dL (70-110)
[2017-09-04] MEDS: HYDROcodone Bitartrate/Apap 5/325 Tablet PO ×3 (11:56→22:27)
[2017-09-04 14:47] VITALS: BP 124/63; PULSE 79; RESP 18; TEMP 36.6; O2SAT 96
[2017-09-04 16:51] LABS: Bedside Glucose 237 mg/dL (70-110)
[2017-09-04 21:00] VITALS: BP 165/85; PULSE 79; RESP 18; TEMP 36.6; O2SAT 97
[2017-09-04] MEDS: Gabapentin 800 MG Tablet 1600 MG PO (21:02)
[2017-09-04] MEDS: 0.9% Normal Saline 1,000 ML 15 ML IV (21:02)
[2017-09-04] MEDS: Atorvastatin Calcium 10 MG Tablet PO (21:02)
[2017-09-04] MEDS: Latanoprost 0.005% 1 Bottle 1 DRP EACH EYE (21:03)
[2017-09-04 21:20] LABS: Bedside Glucose 237 mg/dL (70-110)
[2017-09-05] MEDS: HYDROcodone Bitartrate/Apap 5/325 Tablet PO (02:41)
[2017-09-05 02:46] VITALS: BP 163/74; PULSE 79; RESP 16; TEMP 36.6; O2SAT 95
[2017-09-05 02:56] LABS: Bedside Glucose 240 mg/dL (70-110)
[2017-09-05] MEDS: Ondansetron 4 MG/2 ML Vial IV (04:02)
[2017-09-05] MEDS: 0.9% NaCl Peripheral Flush Adult/Peds IV (04:02)
--- NOTE | 2017-09-05 06:07 | NUR.TO.PHY ---
Patient has been noncompliant through night. Encouraged frequently to elevate extremity, but patient refused. Most of night sat at edge of bed dangling feet.
[2017-09-05] MEDS: Enoxaparin 40 MG/0.4 ML Syringe SC (06:21)
[2017-09-05 08:23] VITALS: BP 175/70; PULSE 78; RESP 16; TEMP 36.6; O2SAT 92
[2017-09-05] MEDS: Nebivolol HCl 10 MG Tablet PO (08:36)
[2017-09-05] MEDS: Losartan Potassium 50 MG Tablet PO (08:36)
[2017-09-05] MEDS: Gabapentin 600 MG Tablet PO (08:36)
[2017-09-05 08:46] LABS: Bedside Glucose 292 mg/dL (70-110)
--- NOTE | 2017-09-05 08:52 | PN_ITS ---
Patient Problems: Active and Suspected Problems Calcaneus pressure ulceration right foot (Acute) Osteomyelitis (Suspected) Subjective: Patient seen this morning for follow up right foot/leg. He was resting comfortably in bed, no acute overnight events. - Physical Exam General: Alert, Oriented x3, No apparent distress Extremities: Capillary Refill Less than 3 Seconds, No Calf Tenderness, - - Right foot: s/p heel debridement down to bone, there is no active bleeding, margins and base viable at this point, multiple other superficial ulcerations to the foot and leg with are viable as well - there is no maloder, no fluctuance , no necrosis, no evidence of acute ischemia, no blistering, no crepitus, no streaking, no visible cellulitis at this point, sensation significantly decreased c/w peripheral neuropathy (chronic). There is chronic right lower extremity lymphedema stable with light compression dressing. Again, no evidence of acute ischemia to the foot, he has chronic lower extremity PAD. Vital Signs Temp Pulse Resp BP Pulse Ox 97.9 F 78 16 175/70 H 92 09/05/17 08:23 09/05/17 08:23 09/05/17 08:23 09/05/17 08:23 09/05/17 08:23 Oxygen Flow Rate (L/min) 2 Oxygen Delivery Method Room Air Weight: 140.3 kg Body Mass Index (BMI) 48.4 Finger Stick Blood Glucose 278 Intake and Output for Last 24 Hours 09/03/17 09/04/17 09/05/17 23:59 23:59 23:59 Intake Total 2699 / 2699 1768 / 1768 201 / 201 Output Total 1200 / 1200 1740 / 1740 300 / 300 Balance 1499 / 1499 -99 / -99 Microbiology Past 72 Hours 09/01/17 13:35 Gram Stain - Final Wound - Heel Right Wound Culture - Preliminary Gram negative chip Gram negative chip#2 GPC Poss Enterococcus sp Gram negative chip#3 Anaerobic Culture - Preliminary Checking for anaerobes, further studies to follow. 09/01/17 23:30 Gram Stain - Final Wound Drainage - Heel Right Wound Culture - Preliminary Gram negative chip Gram negative chip#2 GPC Poss Enterococcus sp Gram negative chip#3 09/01/17 13:35 Gram Stain - Final Wound - Toe Wound Culture - Preliminary Gram negative chip Gram negative chip#2 Gram Positive Cocci Gram negative cocco bacillus Anaerobic Culture - Preliminary Checking for anaerobes, further studies to follow. 09/03/17 10:00 Gram Stain - Final Biopsy - Bone Wound Culture - Preliminary No growth-Final to follow POC Glucose 09/05/17 09/05/17 09/04/17 08:18 02:45 21:01 POC Glucose 292 H 240 H 237 H 09/04/17 09/04/17 16:26 11:37 POC Glucose 237 H 201 H Medical Necessity - Tobacco Use Smoking Status: Former smoker Tobacco Use: Non-smoker Assessment/Plan Active and Suspected Problems Calcaneus pressure ulceration right foot (Acute) Osteomyelitis (Suspected) Heel ulcer down to bone w/ concern for osteomyelitis right calcaneus s/p debridement on 09/03/17 Multiple right foot/leg superficial ulcerations Diabetes with peripheral neuropathy Lymphedema s/p left BKA Peripheral Arterial Disease s/p lower extremity intervention- follows with Dr. Solis s/p debridement of right heel ulceration - site stable, will continue with local wound care - adaptic with overlying gauze dressing; also gauze dressings to the other foot/leg ulcerations with overlying aislinn banding from foot to above knee to control edema from chronic lymphedema. Will continue to monitor for healing. Keep right heel offloaded at all times, no weightbearing right foot. Follow intraoperative cultures and pathology (pending at this time) - so far no growth at bone biopsy (calcaneus) site, continue with antibiotic therapy per Infectious Disease. Patient's diabetes and other medical problems are managed by the medicine team. Podiatry will continue to follow, please contact with any questions.
[2017-09-05] MEDS: Glucerna Shake 120 ML LIQUID PO ×4 (09:48→22:16)
[2017-09-05] MEDS: BRIMONIDINE 0.2% 5ML BOTTLE 1 DRP EACH EYE ×2 (09:48→22:06)
[2017-09-05] MEDS: Clopidogrel Bisulfate 75 MG Tablet PO (09:50)
[2017-09-05] MEDS: Pantoprazole Sodium 40 MG Tablet PO (09:50)
--- NOTE | 2017-09-05 11:59 | PN_ITS ---
Patient Problems: Active and Suspected Problems Calcaneus pressure ulceration right foot (Acute) Osteomyelitis (Suspected) Subjective: Patient was seen and examined today, he complains of nausea and vomiting today- am not quite sure what his triggered this. I have raised patient's insulin today due to elevated blood sugars. I talked briefly with podiatry about his care, they state that as of now no growth is coming out of his bone on his heel. Patient is set to be discharged to TCU tomorrow for further care - Physical Exam General: Alert, Oriented x3, Cooperative, No apparent distress, Well developed, Well nourished HEENT: Atraumatic, PERRLA, EOMI, Normocephalic Oral: Moist Mucosa Neck: Supple, No JVD, Trachea Midline, Thyroid Normal Size and Texture Lungs: Clear to auscultation, Normal air movement, No rhonchi, No wheeze, No rales Cardiovascular: Regular rate, Regular Rhythm, Normal S1, Normal S2, No murmurs, No Ectopic Activity, PMI Normal, No rub noted, No Gallop Abdomen: Bowel Sounds Present, Soft, Non Tender, Non-Distended, No hernias noted Extremities: No clubbing, No cyanosis, - - Left below the knee amputation is noted-remote Neurological: Cranial nerves II-XII grossly intact, Neuro grossly intact, Sensory exam intact to light touch and pain, Coordination normal Psych/Mental Status: Normal Affect, Appropriate, Alert and oriented to time, place, person, mood and affect Vital Signs Temp Pulse Resp BP Pulse Ox 97.9 F 78 16 175/70 H 92 09/05/17 08:23 09/05/17 08:23 09/05/17 08:23 09/05/17 08:23 09/05/17 08:23 Oxygen Flow Rate (L/min) 2 Oxygen Delivery Method Room Air Weight: 140.3 kg Body Mass Index (BMI) 48.4 Finger Stick Blood Glucose 278 Intake and Output for Last 24 Hours 09/03/17 09/04/17 09/05/17 23:59 23:59 23:59 Intake Total 2699 / 2699 1768 / 1768 201 / 201 Output Total 1200 / 1200 1740 / 1740 300 / 300 Balance 1499 / 1499 -99 / -99 Microbiology Past 72 Hours 09/01/17 23:30 Gram Stain - Final Wound Drainage - Heel Right Wound Culture - Preliminary Morganella morganii sp morgani Providencia stuartii GPC Poss Enterococcus sp Proteus mirabilis 09/01/17 13:35 Gram Stain - Final Wound - Heel Right Wound Culture - Preliminary Morganella morganii sp morgani Proteus mirabilis GPC Poss Enterococcus sp Gram negative chip#3 Anaerobic Culture - Preliminary Checking for anaerobes, further studies to follow. 09/01/17 13:35 Gram Stain - Final Wound - Toe Wound Culture - Preliminary Providencia stuartii Morganella morganii sp morgani Enterococcus raffinosus Proteus mirabilis Anaerobic Culture - Preliminary Checking for anaerobes, further studies to follow. 09/03/17 10:00 Gram Stain - Final Biopsy - Bone Wound Culture - Preliminary No growth-Final to follow POC Glucose 09/05/17 09/05/17 09/04/17 08:18 02:45 21:01 POC Glucose 292 H 240 H 237 H 09/04/17 09/04/17 16:26 11:37 POC Glucose 237 H 201 H Medical Necessity - Tobacco Use Smoking Status: Former smoker Tobacco Use: Non-smoker Assessment/Plan Active and Suspected Problems Calcaneus pressure ulceration right foot (Acute) Osteomyelitis (Suspected) #1 infected neuropathic pressure ulceration right calcaneus-secondary to severe peripheral vascular disease of the right leg, uncontrolled type 2 diabetes, and noncompliance with medical treatment-insulin will be adjusted , antibiotic coverage will be monitored per infectious diseases-currently patient is on meropenem day number 5, surgical treatment per podiatry. As of now, no evidence of osteomyelitis but infection of the wound with Morganella, Providencia, enterococcus, and Proteus #2 uncontrolled type 2 diabetes-blood sugars will be monitored and insulin desiree adjusted accordingly #3 peripheral vascular disease of the lower extremities secondary to type 2 diabetes #4 stage III chronic kidney disease secondary to type 2 diabetes #5 neuropathy secondary to type 2 diabetes #6 morbid obesity #7 noncompliance with medical regimen Summary: This 57-year-old white male with type 2 diabetes-poorly controlled-was admitted from the wound center with a nonhealing right calcaneus deep wound infection, comorbidities include diabetic neuropathy, stage III chronic kidney disease, morbid obesity, peripheral vascular disease, and noncompliance with medical treatment. PICC line was inserted, he currently is on meropenem and he will be transferred to TCU for further care at the time of discharge from the hospital. Code Visit Inpatient E&M: 81315 Subs Hosp L2
[2017-09-05 12:26] LABS: Bedside Glucose 279 mg/dL (70-110)
[2017-09-05 14:06] VITALS: BP 131/55; PULSE 76; RESP 16; TEMP 36.6; O2SAT 93
[2017-09-05 16:15] LABS: Bedside Glucose 322 mg/dL (70-110)
[2017-09-05] MEDS: Latanoprost 0.005% 1 Bottle 1 DRP EACH EYE (22:06)
[2017-09-05] MEDS: Atorvastatin Calcium 10 MG Tablet PO (22:08)
[2017-09-05] MEDS: Gabapentin 800 MG Tablet 1600 MG PO (22:08)
[2017-09-05 22:17] VITALS: BP 160/67; PULSE 79; RESP 18; TEMP 37; O2SAT 96
[2017-09-05 22:41] LABS: Bedside Glucose 235 mg/dL (70-110)
[2017-09-06 02:26] LABS: Bedside Glucose 181 mg/dL (70-110)
--- NOTE | 2017-09-06 02:30 | NURSING ---
Patient called out not feeling well. Entered room, patient appeared pale. He stated he thought his blood sugar was dropping fast. Accucheck revealed 181. Patient was fearful that his sugar would continue to drop, he also stated that he felt he could become nauseated soon 1 torie cracker snack provided to patient at this time.
[2017-09-06 02:33] VITALS: BP 149/86; PULSE 75; RESP 16; TEMP 36.4; O2SAT 94
[2017-09-06] MEDS: Enoxaparin 40 MG/0.4 ML Syringe SC (05:59)
[2017-09-06 06:04] VITALS: BP 158/77; PULSE 74; RESP 16; TEMP 36.3; O2SAT 94
[2017-09-06 07:55] LABS: Bedside Glucose 163 mg/dL (70-110)
--- NOTE | 2017-09-06 08:47 | CASEMGMT ---
Addendum entered by Cathleen Nunez 09/06/17 12:17: SW spoke w/pt and let him know we are still waiting for insurance approval. SW will continue to follow. If approval attained, pt can go to TCU today as per physician. LUIS ARMANDO Parsons, NGUYEN Original Note: SW spoke w/Frances in TCU who will be following up on insurance precert today for pt to be discharged to TCU. LUIS ARMANDO Parsons, [employer]
[2017-09-06] MEDS: Gabapentin 600 MG Tablet PO (10:48)
[2017-09-06] MEDS: Pantoprazole Sodium 40 MG Tablet PO (10:49)
[2017-09-06] MEDS: Nebivolol HCl 10 MG Tablet PO (10:49)
[2017-09-06] MEDS: BRIMONIDINE 0.2% 5ML BOTTLE 1 DRP EACH EYE ×2 (10:49→21:53)
[2017-09-06] MEDS: Clopidogrel Bisulfate 75 MG Tablet PO (10:49)
[2017-09-06] MEDS: Losartan Potassium 50 MG Tablet PO (10:49)
[2017-09-06] MEDS: Glucerna Shake 120 ML LIQUID PO ×3 (11:03→17:24)
--- NOTE | 2017-09-06 11:18 | PN_ITS ---
Patient Problems: Active and Suspected Problems Calcaneus pressure ulceration right foot (Acute) Osteomyelitis (Suspected) Vitals/I&O's: Vital Signs Temp Pulse Resp BP Pulse Ox 97.3 F L 74 16 158/77 H 94 09/06/17 06:04 09/06/17 06:04 09/06/17 06:04 09/06/17 06:04 09/06/17 06:04 Oxygen Flow Rate (L/min) 2 Oxygen Delivery Method Room Air Weight: 140.3 kg Body Mass Index (BMI) 48.4 Finger Stick Blood Glucose 278 Intake and Output for Last 24 Hours 09/04/17 09/05/17 09/06/17 23:59 23:59 23:59 Intake Total 1768 / 1768 201 / 201 898 / 898 Output Total 1740 / 1740 975 / 975 1550 / 1550 Balance -774 / -774 -652 / -652 General: Alert, Oriented x3 HEENT: Atraumatic Oral: Moist Mucosa Neck: Supple, No JVD Lungs: Clear to auscultation Cardiovascular: Regular rate, Normal S1, Normal S2 Abdomen: Bowel Sounds Present, Soft, Non Tender, Non-Distended Extremities: No edema Neurological: Cranial nerves II-XII grossly intact, Motor Exam 5/5 strength throughout Microbiology Past 72 Hours 09/01/17 23:30 Wound Drainage - Heel Right Gram Stain - Final 09/01/17 23:30 Wound Drainage - Heel Right Wound Culture - Final Morganella morganii sp morgani Providencia stuartii Enterococcus avium Proteus mirabilis 09/01/17 13:35 Wound - Toe Gram Stain - Final 09/01/17 13:35 Wound - Toe Wound Culture - Final Providencia stuartii Morganella morganii sp morgani Enterococcus spp Proteus mirabilis 09/01/17 13:35 Wound - Toe Anaerobic Culture - Final Anaerobic cocci 09/03/17 10:00 Biopsy - Bone Gram Stain - Final 09/03/17 10:00 Biopsy - Bone Wound Culture - Preliminary No growth-Final to follow 09/03/17 10:00 Biopsy - Bone Anaerobic Culture - Preliminary No growth in 48 hours. 09/01/17 13:35 Wound - Heel Right Gram Stain - Final 09/01/17 13:35 Wound - Heel Right Wound Culture - Preliminary Morganella morganii sp morgani Proteus mirabilis GPC Poss Enterococcus sp Proteus mirabilis#2 09/01/17 13:35 Wound - Heel Right Anaerobic Culture - Final No anaerobic bacteria isolated. Laboratory Results 09/05/17 12:10: POC Glucose 279 H 09/05/17 16:11: POC Glucose 322 H 09/05/17 21:55: POC Glucose 235 H 09/06/17 02:17: POC Glucose 181 H 09/06/17 07:40: POC Glucose 163 H Current Medications Acetaminophen (Tylenol) 650 mg PO Q6H PRN PRN PRN Reason: Mild Pain (1-3)/Temp > 100.7 F Last Admin: 09/04/17 06:42 Dose: 650 mg Hydrocodone Bitart/Acetaminophen ([place] 5mg-325mg) 1 - 2 tablet PO Q4H PRN PRN PRN Reason: SEVERE PAIN (6-10/10) Last Admin: 09/05/17 02:41 Dose: 2 tablet Atorvastatin Calcium (Lipitor) 10 mg PO QHS [facility] Last Admin: 09/05/17 22:08 Dose: 10 mg Brimonidine Tartrate (Brimonidine 0.2% 5ml Bottle) 1 drop EACH EYE BID [facility] Last Admin: 09/06/17 10:49 Dose: 1 drop Clopidogrel Bisulfate (Plavix) 75 mg PO DAILY [facility] Last Admin: 09/06/17 10:49 Dose: 75 mg Dextrose (D50w Syringe) 0 gm IV X1 PRN; Protocol PRN Reason: Hypoglycemia Enoxaparin Sodium (Lovenox) 40 mg SC DAILY@0600 [facility] Last Admin: 09/06/17 05:59 Dose: 40 mg Gabapentin (Neurontin) 600 mg PO DAILY@0800 [facility] Last Admin: 09/06/17 10:48 Dose: 600 mg Gabapentin (Neurontin) 1,600 mg PO QHS [facility] Last Admin: 09/05/17 22:08 Dose: 1,600 mg Glucagon () 1 mg IM .X1 PRN PRN Reason: Hypoglycemia Sodium Chloride () 1,000 mls @ 15 mls/hr IV .Q48H [facility] Last Admin: 09/04/17 21:02 Dose: 15 mls/hr Meropenem 500 mg/ Sodium (Chloride) 60 mls @ 100 mls/hr IV Q8 [facility] Last Admin: 09/06/17 05:59 Dose: 100 mls/hr Insulin Aspart (Novolog Flexpen (Bk)) 0 units SC ACHS [facility] PRN Reason: Protocol Last Admin: 09/06/17 07:47 Dose: 3 units Insulin Aspart (Novolog Flexpen (Bkc)) 55 units SC TIDAC [facility] Last Admin: 09/06/17 07:46 Dose: 55 u Insulin Detemir (Levemir ([facility])) 100 units SC BID [facility] Insulin Human Regular (Humulin R U-500 ([facility])) ml SC DINNER [facility] Insulin Human Regular (Humulin R U-500 ([facility])) ml SC LUNCH [facility] Insulin Human Regular (Humulin R U-500 ([facility])) ml SC BREAKFAST [facility] Latanoprost (Xalatan Opthalmic) 1 drop EACH EYE QHS [facility] Last Admin: 09/05/17 22:06 Dose: 1 drop Losartan Potassium (Cozaar) 50 mg PO DAILY [facility] Last Admin: 09/06/17 10:49 Dose: 50 mg Magnesium Hydroxide (Milk Of Magnesia) 30 ml PO DAILY PRN PRN PRN Reason: Constipation Metoclopramide HCl (Reglan) 10 mg IV Q8H PRN PRN PRN Reason: NAUSEA Nebivolol (Bystolic) 10 mg PO DAILY [facility] Last Admin: 09/06/17 10:49 Dose: 10 mg Nutritional Formula (Lactose Free) (Glucerna Shake) 120 ml PO 4X/DAY [facility] Last Admin: 09/06/17 11:03 Dose: 120 ml Ondansetron HCl (Zofran) 4 mg IV Q4H PRN PRN PRN Reason: NAUSEA Last Admin: 09/05/17 04:02 Dose: 4 mg Pantoprazole Sodium (Protonix) 40 mg PO DAILY [facility] Last Admin: 09/06/17 10:49 Dose: 40 mg Sodium Chloride () 5 - 30 ml IV UD PRN PRN Reason: SALINE FLUSH Last Admin: 09/05/17 04:02 Dose: 10 ml Medical Necessity - Tobacco Use Smoking Status: Former smoker Tobacco Use: Non-smoker Assessment/Plan Active and Suspected Problems Calcaneus pressure ulceration right foot (Acute) Osteomyelitis (Suspected) 1 Infected neuropathic pressure ulceration right calcaneus; continue antibiotics as ordered by infectious disease. 2 uncontrolled type 2 diabetes; and asked that he is easily be changed back to you 500 and that is fine by me. 3 peripheral vascular disease of the lower extremities secondary to type 2 diabetes 4 stage III chronic kidney disease secondary to type 2 diabetes; parameters and avoid potentially nephrotoxic medications. 5 neuropathy secondary to type 2 diabetes; he is on Neurontin 6 morbid obesity; wt. loss recommended 7. DVT ppx with Lovenox Code Visit Inpatient E&M: 32697 Subs Hosp L2
--- NOTE | 2017-09-06 11:50 | PN.ID_ITS ---
Patient Problems: Active and Suspected Problems Calcaneus pressure ulceration right foot (Acute) Osteomyelitis (Suspected) Subjective: Feeling well, no n/v/d, no fever. Foot pain controlled. - Physical Exam General: Alert, Cooperative, No apparent distress Lungs: Clear to auscultation, Normal air movement Cardiovascular: Regular rate, Regular Rhythm Abdomen: Soft, Non Tender, Non-Distended Skin: Ulcer/ Wound - R foot wrapped Vital Signs Temp Pulse Resp BP Pulse Ox 97.3 F L 74 16 158/77 H 94 09/06/17 06:04 09/06/17 06:04 09/06/17 06:04 09/06/17 06:04 09/06/17 06:04 Oxygen Flow Rate (L/min) 2 Oxygen Delivery Method Room Air Weight: 140.3 kg Body Mass Index (BMI) 48.4 Finger Stick Blood Glucose 278 Intake and Output for Last 24 Hours 09/04/17 09/05/17 09/06/17 23:59 23:59 23:59 Intake Total 1768 / 1768 201 / 201 898 / 898 Output Total 1740 / 1740 975 / 975 1550 / 1550 Balance -774 / -774 -652 / -652 Microbiology Past 72 Hours 09/01/17 13:35 Gram Stain - Final Wound - Heel Right Wound Culture - Preliminary Morganella morganii sp morgani Proteus mirabilis Enterococcus spp Anaerobic Culture - Final No anaerobic bacteria isolated. 09/01/17 23:30 Gram Stain - Final Wound Drainage - Heel Right Wound Culture - Final Morganella morganii sp morgani Providencia stuartii Enterococcus avium Proteus mirabilis 09/01/17 13:35 Gram Stain - Final Wound - Toe Wound Culture - Final Providencia stuartii Morganella morganii sp morgani Enterococcus spp Proteus mirabilis Anaerobic Culture - Final Anaerobic cocci 09/03/17 10:00 Gram Stain - Final Biopsy - Bone Wound Culture - Preliminary No growth-Final to follow Anaerobic Culture - Preliminary No growth in 48 hours. POC Glucose 09/06/17 09/06/17 09/05/17 07:40 02:17 21:55 POC Glucose 163 H 181 H 235 H 09/05/17 09/05/17 16:11 12:10 POC Glucose 322 H 279 H Medical Necessity - Tobacco Use Smoking Status: Former smoker Tobacco Use: Non-smoker Route of nutrition/ use of supplements: [] Nutritional Intake: [] IV Site: [] Elizalde Catheter: [] - Assessment/Plan Antibiotics: [] Assessment/Plan: [] Active and Suspected Problems Calcaneus pressure ulceration right foot (Acute) R heel chronic infected ulcer - concern for underlying osteo. Had MRI w/o contrast in 07/2017 with no osteo seen. Bone cx so far is negative as well. Wound and surg cx with multiple bacteria, including morganella, providencia, enterococcus, and proteus. Cont meropenem, picc in place. Planned stop date is 09/14/17 for total 2 week course; if cx or bx shows osteo, will need full 6 weeks. Will follow, d/w primary team and continuous pillowcase cutter.
[2017-09-06 12:00] VITALS: BP 150/70; PULSE 78; RESP 16; TEMP 36.6; O2SAT 94
[2017-09-06 12:35] LABS: Bedside Glucose 234 mg/dL (70-110)
[2017-09-06 17:26] LABS: Bedside Glucose 193 mg/dL (70-110)
[2017-09-06 17:33] VITALS: BP 148/72; PULSE 77; RESP 16; TEMP 36.3; O2SAT 94
[2017-09-06 20:36] VITALS: BP 153/54; PULSE 83; RESP 16; TEMP 36.9; O2SAT 93
--- NOTE | 2017-09-06 20:50 | PN_ITS ---
Patient Problems: Active and Suspected Problems Calcaneus pressure ulceration right foot (Acute) Osteomyelitis (Suspected) Subjective: This 57-year-old male was seen bedside postoperative day #3 right lower extremity ulcer debridement of the right heel with bone biopsy. He denies pain , fever, chill, nausea, vomiting. His swelling to both lower extremities have significantly decreased. He is also seen for his left below-knee amputation stump site ulcer. - Physical Exam General: Alert, Oriented x3, Cooperative Extremities: No cyanosis, Capillary Refill Less than 3 Seconds, No Calf Tenderness - Negative Harry and Badillo sign., Diminished Peripheral Pulses, Edema - Lymphedema noted bilateral Skin: Ulcer/ Wound - No purulence, erythema, no streaking bilateral. There is deep tissue exposed to the right heel site that was recently debrided with right hematogenous drainage. There is no odor or necrosis or infection clinically. Significant peripheral epithelialization is noted to the right forefoot ulcer site and also to the right posterior lateral leg ulcer sites and to the popliteal ulcer of the right lower extremity. There is full epithelialization noted to the left below-knee amputation stump site. Musculoskeletal: No Tenderness to Palpation of Joints or Extremities, Muscle Wasting, - - Below-knee amputation left. No pain on palpation to right wounds Neurological: - - Lack of epicritic sensation noted to light touch bilateral lower extremities Psych/Mental Status: Normal Affect, Appropriate Vital Signs Temp Pulse Resp BP Pulse Ox 98.5 F 83 16 153/54 H 93 09/06/17 20:36 09/06/17 20:36 09/06/17 20:36 09/06/17 20:36 09/06/17 20:36 Oxygen Flow Rate (L/min) 2 Oxygen Delivery Method Room Air Weight: 140.3 kg Body Mass Index (BMI) 48.4 Finger Stick Blood Glucose 278 Intake and Output for Last 24 Hours 09/04/17 09/05/17 09/06/17 23:59 23:59 23:59 Intake Total 1768 / 1768 201 / 201 898 / 898 Output Total 1740 / 1740 975 / 975 1550 / 1550 Balance -774 / -774 -652 / -652 Microbiology Past 72 Hours 09/01/17 23:30 Gram Stain - Final Wound Drainage - Heel Right Wound Culture - Final Morganella morganii sp morgani Providencia stuartii Enterococcus avium Proteus mirabilis Anaerobic Culture - Final Prevotella disiens 09/01/17 13:35 Gram Stain - Final Wound - Heel Right Wound Culture - Preliminary Morganella morganii sp morgani Proteus mirabilis Enterococcus spp Gram negative chip Anaerobic Culture - Final No anaerobic bacteria isolated. 09/03/17 10:00 Gram Stain - Final Biopsy - Bone Wound Culture - Final No growth aerobically. Anaerobic Culture - Preliminary No growth in 48 hours. 09/01/17 13:35 Gram Stain - Final Wound - Toe Wound Culture - Final Providencia stuartii Morganella morganii sp morgani Enterococcus spp Proteus mirabilis Anaerobic Culture - Final Anaerobic cocci POC Glucose 09/06/17 09/06/17 09/06/17 17:15 12:23 07:40 POC Glucose 193 H 234 H 163 H 09/06/17 09/05/17 02:17 21:55 POC Glucose 181 H 235 H Medical Necessity - Tobacco Use Smoking Status: Former smoker Tobacco Use: Non-smoker Assessment/Plan Active and Suspected Problems Calcaneus pressure ulceration right foot (Acute) Osteomyelitis (Suspected) Heel ulcer down to bone w/ concern for osteomyelitis right calcaneus s/p debridement on 09/03/17 Multiple right foot/leg superficial ulcerations Diabetes with peripheral neuropathy Lymphedema s/p left BKA Peripheral Arterial Disease s/p lower extremity intervention- follows with Dr. Solis s/p debridement of right heel ulceration - site stable, will continue with local wound care - adaptic with overlying gauze dressing; also gauze dressings to the other foot/leg ulcerations with overlying aislinn banding from foot to above knee to control edema from chronic lymphedema. All of these sites were changed today. Will continue to monitor for healing. Keep right heel offloaded at all times, no weightbearing right foot. To hang heel over a pillow while in bed to float the site in the air. Follow intraoperative cultures and pathology (pending at this time) - so far no growth at bone biopsy (calcaneus) site, continue with antibiotic therapy per Infectious Disease. Patient's diabetes and other medical problems are managed by the medicine team. To continue with proper glycemic control and nutritional supplementation optimize healing. Her stance is a significant risk for limb loss. He has demonstrated significant improvement during his hospital admission and is considering placement at the transitional care unit. I highly encouraged displacement where he can remain more compliant than he can at home. We discussed application of advanced wound care products with additional operating room debridement once the infection is cleared out. It is possible this may be appropriate within the next week. He is amenable to this plan. Podiatry will continue to follow, please contact with any questions. Rachele Lux DPM [facility] [phone]
[2017-09-06] MEDS: Latanoprost 0.005% 1 Bottle 1 DRP EACH EYE (21:53)
[2017-09-06] MEDS: Atorvastatin Calcium 10 MG Tablet PO (21:54)
[2017-09-06] MEDS: Gabapentin 800 MG Tablet 1600 MG PO (21:54)
[2017-09-06 22:16] LABS: Bedside Glucose 142 mg/dL (70-110)
[2017-09-07 02:30] VITALS: BP 136/68; PULSE 77; RESP 16; TEMP 36.1; O2SAT 98
[2017-09-07] MEDS: Enoxaparin 40 MG/0.4 ML Syringe SC (06:11)
[2017-09-07] MEDS: 0.9% Normal Saline 1,000 ML 15 ML IV (06:11)
[2017-09-07 08:30] VITALS: BP 160/81; PULSE 79; RESP 16; TEMP 36.3; O2SAT 16
[2017-09-07 08:31] LABS: Bedside Glucose 170 mg/dL (70-110)
[2017-09-07] MEDS: Nebivolol HCl 10 MG Tablet PO (08:40)
[2017-09-07] MEDS: Clopidogrel Bisulfate 75 MG Tablet PO (08:40)
[2017-09-07] MEDS: Gabapentin 600 MG Tablet PO (08:40)
[2017-09-07] MEDS: Losartan Potassium 50 MG Tablet PO (08:41)
[2017-09-07] MEDS: Pantoprazole Sodium 40 MG Tablet PO (08:41)
[2017-09-07] MEDS: BRIMONIDINE 0.2% 5ML BOTTLE 1 DRP EACH EYE (08:49)
--- NOTE | 2017-09-07 10:02 | NURSING ---
wound photo: right foot
--- NOTE | 2017-09-07 10:03 | NURSING ---
wound photo: right medial heel
--- NOTE | 2017-09-07 10:03 | NURSING ---
wound photo: right lateral lower leg
[2017-09-07 12:01] LABS: Bedside Glucose 215 mg/dL (70-110)
[2017-09-07 14:30] VITALS: BP 156/66; PULSE 79; RESP 16; TEMP 36.8; O2SAT 95
--- NOTE | 2017-09-07 15:23 | PCM.PN.HOSP ---
Patient Problems: Active and Suspected Problems Calcaneus pressure ulceration right foot (Acute) Osteomyelitis (Suspected) Subjective: CC: Right foot infection Objective: Past no new symptoms. He is tolerating his current treatment , he is awaiting presented for TCU discharge . No events reported overnight. Vitals/I&O's: Vital Signs Temp Pulse Resp BP Pulse Ox 97.4 F L 79 16 160/81 H 16 09/07/17 08:30 09/07/17 08:30 09/07/17 08:30 09/07/17 08:30 09/07/17 08:30 Oxygen Flow Rate (L/min) 2 Oxygen Delivery Method Room Air Weight: 140.3 kg Body Mass Index (BMI) 48.4 Finger Stick Blood Glucose 278 Intake and Output for Last 24 Hours 09/05/17 09/06/17 09/07/17 23:59 23:59 23:59 Intake Total 201 / 201 898 / 898 1098 / 1098 Output Total 975 / 975 1550 / 1550 Balance -774 / -774 -652 / -652 1098 / 1098 General: Alert, Oriented x3 Oral: Moist Mucosa Neck: Supple, No JVD Lungs: Clear to auscultation, No wheeze, No rales Cardiovascular: Regular rate, Normal S2 Abdomen: Bowel Sounds Present, Soft Microbiology Past 72 Hours 09/01/17 13:35 Wound - Heel Right Gram Stain - Final 09/01/17 13:35 Wound - Heel Right Wound Culture - Final Morganella morganii sp morgani Proteus mirabilis Enterococcus spp Gram negative chip 09/01/17 13:35 Wound - Heel Right Anaerobic Culture - Final No anaerobic bacteria isolated. 09/01/17 23:30 Wound Drainage - Heel Right Gram Stain - Final 09/01/17 23:30 Wound Drainage - Heel Right Wound Culture - Final Morganella morganii sp morgani Providencia stuartii Enterococcus avium Proteus mirabilis 09/01/17 23:30 Wound Drainage - Heel Right Anaerobic Culture - Final Prevotella disiens 09/03/17 10:00 Biopsy - Bone Gram Stain - Final 09/03/17 10:00 Biopsy - Bone Wound Culture - Final No growth aerobically. 09/03/17 10:00 Biopsy - Bone Anaerobic Culture - Preliminary No growth in 48 hours. 09/01/17 13:35 Wound - Toe Gram Stain - Final 09/01/17 13:35 Wound - Toe Wound Culture - Final Providencia stuartii Morganella morganii sp morgani Enterococcus spp Proteus mirabilis 09/01/17 13:35 Wound - Toe Anaerobic Culture - Final Anaerobic cocci Laboratory Results 09/06/17 17:15: POC Glucose 193 H 09/06/17 21:51: POC Glucose 142 H 09/07/17 08:24: POC Glucose 170 H 09/07/17 11:54: POC Glucose 215 H Current Medications Acetaminophen (Tylenol) 650 mg PO Q6H PRN PRN PRN Reason: Mild Pain (1-3)/Temp > 100.7 F Last Admin: 09/04/17 06:42 Dose: 650 mg Hydrocodone Bitart/Acetaminophen ([place] 5mg-325mg) 1 - 2 tablet PO Q4H PRN PRN PRN Reason: SEVERE PAIN (6-10/10) Last Admin: 09/05/17 02:41 Dose: 2 tablet Atorvastatin Calcium (Lipitor) 10 mg PO QHS [facility] Last Admin: 09/06/17 21:54 Dose: 10 mg Brimonidine Tartrate (Brimonidine 0.2% 5ml Bottle) 1 drop EACH EYE BID [facility] Last Admin: 09/07/17 08:49 Dose: 1 drop Clopidogrel Bisulfate (Plavix) 75 mg PO DAILY [facility] Last Admin: 09/07/17 08:40 Dose: 75 mg Dextrose (D50w Syringe) 0 gm IV X1 PRN; Protocol PRN Reason: Hypoglycemia Enoxaparin Sodium (Lovenox) 40 mg SC DAILY@0600 [facility] Last Admin: 09/07/17 06:11 Dose: 40 mg Gabapentin (Neurontin) 600 mg PO DAILY@0800 [facility] Last Admin: 09/07/17 08:40 Dose: 600 mg Gabapentin (Neurontin) 1,600 mg PO QHS [facility] Last Admin: 09/06/17 21:54 Dose: 1,600 mg Glucagon () 1 mg IM .X1 PRN PRN Reason: Hypoglycemia Sodium Chloride () 1,000 mls @ 15 mls/hr IV .Q48H [facility] Last Admin: 09/07/17 06:11 Dose: 15 mls/hr Meropenem 500 mg/ Sodium (Chloride) 60 mls @ 100 mls/hr IV Q8 [facility] Last Admin: 09/07/17 13:28 Dose: 100 mls/hr Insulin Aspart (Novolog Flexpen ([facility])) 0 units SC ACHS [facility] PRN Reason: Protocol Last Admin: 09/07/17 12:02 Dose: 6 units Insulin Human Regular (Humulin R U-500 ([facility])) 0.21 ml SC DINNER [facility] Last Admin: 09/06/17 17:22 Dose: 105 u Insulin Human Regular (Humulin R U-500 ([facility])) 0.21 ml SC LUNCH [facility] Last Admin: 09/07/17 12:03 Dose: 105 u Insulin Human Regular (Humulin R U-500 ([facility])) 0.32 ml SC BREAKFAST [facility] Last Admin: 09/07/17 08:40 Dose: 160 u Latanoprost (Xalatan Opthalmic) 1 drop EACH EYE QHS [facility] Last Admin: 09/06/17 21:53 Dose: 1 drop Losartan Potassium (Cozaar) 50 mg PO DAILY [facility] Last Admin: 09/07/17 08:41 Dose: 50 mg Magnesium Hydroxide (Milk Of Magnesia) 30 ml PO DAILY PRN PRN PRN Reason: Constipation Metoclopramide HCl (Reglan) 10 mg IV Q8H PRN PRN PRN Reason: NAUSEA Nebivolol (Bystolic) 10 mg PO DAILY [facility] Last Admin: 09/07/17 08:40 Dose: 10 mg Nutritional Formula (Madhu - [place] Flavor) 1 packet PO BIDCM [facility] Last Admin: 09/07/17 08:40 Dose: 1 packet Ondansetron HCl (Zofran) 4 mg IV Q4H PRN PRN PRN Reason: NAUSEA Last Admin: 09/05/17 04:02 Dose: 4 mg Pantoprazole Sodium (Protonix) 40 mg PO DAILY [facility] Last Admin: 09/07/17 08:41 Dose: 40 mg Sodium Chloride () 5 - 30 ml IV UD PRN PRN Reason: SALINE FLUSH Last Admin: 09/05/17 04:02 Dose: 10 ml Medical Necessity - Tobacco Use Smoking Status: Former smoker Tobacco Use: Non-smoker Assessment/Plan Active and Suspected Problems Calcaneus pressure ulceration right foot (Acute) Osteomyelitis (Suspected) 1 Infected neuropathic pressure ulceration , right calcaneus;he is on IV meropenem. 2 uncontrolled type 2 diabetes;on left he is now on U 500. 3 peripheral vascular disease ; s/p LBKA 4 stage III chronic kidney disease secondary to type 2 diabetes; parameters and avoid potentially nephrotoxic medications. 5 neuropathy secondary to type 2 diabetes; he is on Neurontin 6 morbid obesity; wt. loss recommended 7. DVT ppx with Lovenox Code Visit Inpatient E&M: 93928 Subs Hosp L2
--- NOTE | 2017-09-07 15:41 | CASEMGMT ---
Social Work Note TR received call from Nancy stating that Frances had left her a message saying that TCU received pre-cert for pt. TR paged Dr. Barbour to inform him of pre-cert. Dr. Barbour states that he will fill out required paperwork so pt can discharge. 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
--- NOTE | 2017-09-07 15:53 | PCM.TXEXTCAR ---
- Diet 09/02/17 15:47 ADA [Diet: Calorie Controlled] Is pt able to select menu?: Yes How many daily calories?: 1800 calorie - Wound(s) right lateral norman Wound Type: Stasis Ulcer Dressing Change: Adaptic right lateral norman #2 Wound Type: Stasis Ulcer Dressing Change: Adaptic with dry dressing right posterior knee Wound Type: Abrasion Dressing Change: Adaptic right medial heel Wound Type: Neuropathic/Diabetic Foot Ulcer Dressing Change: Adaptic with dry dressing right foot toes Wound Type: few small open macerated areas Dressing Change: Adaptic with dry dressing R inner thigh Wound Type: scab - Allergies/Procedures Done in Hospital Allergies/Adverse Reactions: Allergies bee venom protein (honey bee) Allergy (Verified 01/08/17 12:04) Swelling metronidazole [From Flagyl] Allergy (Verified 01/13/17 14:51) Itching - Type of Care/Length of Stay Estimated LOS: Convalescent Care Less Than 30 days Type of Care Needed: Skilled Rehab Potential: Good Prognosis: Fair - Additional Orders/Day of Discharge H&P will serve as current which was dated: 09/01/17 Day of Discharge: 09/07/17 - Dietary and Speech Recommendations Dietitian Recommendations/Changes: Rec diet change to 2000 calorie controlled, low sodium diet. Rec 1 packet Madhu BID for wound healing- must order from pharmacy. - Follow Up Care Primary Care Physician: Prem Lozano,Out of [Primary Care Provider] - Within 2 Weeks
--- NOTE | 2017-09-07 15:55 | DS.PCM_ITS ---
Discharge Date and Diagnosis - Problem List Patient Problems: Active and Suspected Problems Calcaneus pressure ulceration right foot (Acute) Osteomyelitis (Suspected) Date of Admission: 09/01/17 Date of Discharge: 09/07/17 - Primary Discharge Diagnosis Active and Suspected Problems Calcaneus pressure ulceration right foot (Acute) Osteomyelitis (Suspected) - Secondary Discharge Diagnosis Chronic Problems Ulcer of right foot with necrosis of bone (Chronic) Ulcer of left lower extremity with fat layer exposed (Chronic) Chronic kidney disease (CKD) (Chronic) Anemia (Chronic) BKA stump complication (Chronic) Hx of osteomyelitis (Chronic) Left lower leg amputation. 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) Delayed wound healing (Chronic) Malnutrition (Chronic) Venous insufficiency (Chronic) Lymphedema (Chronic) Edema of both legs (Chronic) GERD (gastroesophageal reflux disease) (Chronic) Hypertension (Chronic) Hyperlipemia (Chronic) Morbid obesity with BMI of 45.0-49.9, adult (Chronic) Hyperlipidemia associated with type 2 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(Chronic) 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 He was started on intravenous antibiotics, imaging did not reveal any evidence of osteomyelitis. He underwent debridement of right heel ulcer including bone biopsy by podiatry. She did not reveal any evidence of osteomyelitis.Wound and surgical cultures revealed multiple bacteria, including morganella, providencia , enterococcus, and proteus. Infectious disease was consulted on the case recommended IV meropenem for 2 weeks. The patient had a PICC line in place for IV antibiotics at U. Start in a stable condition. Home Medications: Medications to take at Discharge Atorvastatin Calcium [Lipitor] 10 mg PO QHS 01/08/17 Brimonidine Tartrate 0.2% [Brimonidine 0.2% 5Ml Bottle] 1 drop EACH EYE BID 09/21 Ergocalciferol [Vitamin D] 50,000 unit PO FR 01/08/17 Gabapentin [Neurontin] 1,600 mg PO QHS 01/08/17 Gabapentin [Neurontin] 600 mg PO DAILY 01/08/17 Insulin U-500 [Humulin R U-500 ([facility])] 105 units SC DINNER 01/08/17 Insulin U-500 [Humulin R U-500 ([facility])] 105 units SC LUNCH 01/08/17 Insulin U-500 [Humulin R U-500 ([facility])] 160 units SC BREAKFAST 01/08/17 Latanoprost 0.005% [Xalatan Opthalmic] 1 drop EACH EYE QHS 01/08/17 Losartan Potassium [Cozaar] 50 mg PO DAILY 01/08/17 Nebivolol HCl [Bystolic (Beta Akira)] 10 mg PO DAILY 01/08/17 Omeprazole [Prilosec] 40 mg PO DAILY 01/08/17 Acetaminophen [Tylenol Tablet] 650 mg PO Q6H PRN PRN tablet 09/07/17 Clopidogrel Bisulfate [Plavix] 75 mg PO DAILY tablet 09/07/17 Gabapentin [Neurontin] 1,600 mg PO QHS tablet 09/07/17 Hydrocodone Bitart/Apap 5-325 [[place] 5/325] 1 - 2 tab PO Q4H PRN PRN #10 tab 08/22 Meropenem [Merrem] 500 mg IV Q8 7 Days vial 09/07/17 Following Prescrptions Were Given to Patient: Hydrocodone Bitart/Apap 5-325 [[place] 5/325] 1 - 2 tab PO Q4H PRN PRN #10 tab PRN Reason: Severe Pain (-03/16) Primary Care Physician: Prem Lozano,Out of [Primary Care Provider] - Within 2 Weeks Medical Necessity - Tobacco Use Smoking Status: Former smoker Tobacco Use: Non-smoker Meaningful Use Info Meaningful Use Diagnoses (Choose all that apply): None applicable Code Visit Inpatient E&M: 24860 Disch Hosp
[2017-09-07 16:31] LABS: Bedside Glucose 136 mg/dL (70-110)
--- NOTE | 2017-09-07 16:38 | CASEMGMT ---
Social Work Note SW called to [facility] main line and informed them that pt's pre-cert was obtained for TCU and that Dr. Barbour has been notified and is completing paperwork. Plan: ELIZABETH Luna TEAROOM HOST/HOSTESS, PERSONAL COUNSELOR
== END 2017-09-07 17:22 | DRG 987 ==
PROVIDERS: Anesthesiology; Podiatrist; Admitting Provider Internal Medicine; Visit Provider Internal Medicine
PROC: 0QBL0ZZ Excision of Right Tarsal, Open Approach (ICD-10-PCS; principal; 2017-09-03 07:05)
DX: E11.42 Type 2 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with diabetic polyneuropathy (principal); L89.613 Pressure ulcer of right heel, stage 3; Z68.42 Body mass index [BMI] 45.0-49.9, adult; M86.9 Osteomyelitis, unspecified; E11.22 Type 2 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with diabetic chronic kidney disease; E11.51 Type 2 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with diabetic peripheral angiopathy without gangrene; I89.0 Lymphedema, not elsewhere classified; E66.01 Morbid (severe) obesity due to excess calories; K21.9 Gastro-esophageal reflux disease without esophagitis; E78.5 Hyperlipidemia, unspecified; I12.9 Hypertensive chronic kidney disease with stage 1 through stage 4 chronic kidney disease, or unspecified chronic kidney disease; N18.9 Chronic kidney disease, unspecified; E11.40 Type 2 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with diabetic neuropathy, unspecified; E11.65 Type 2 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with hyperglycemia; Z91.19 Patient's noncompliance with other medical treatment and regimen; Z89.512 Acquired absence of left leg below knee; Z87.891 Personal history of nicotine dependence; Z79.4 Long term (current) use of insulin
CPT/HCPCS: 11042; 11043; 11045; 36415; 36569; 73630; 73650; 76000; 80048; 80053; 82962; 83036; 85025; 85610; 85652; 85730; 86140; 87015; 87070; 87075; 87077; 87102; 87116; 87186; 87205; 87206; 87641; 88304; 88305; 88311; 93005; 97110; 97162; 97166; 97530; 97802; J2185; J7030; A4216; J2405

== ENCOUNTER 2017-09-07 17:30 | Inpatient (IN) | payer MEDICARE, MEDICAID, SELFPAY ==
[2017-09-07 18:05] VITALS: BP 144/57; PULSE 86; RESP 20; TEMP 36.8; O2SAT 96; BMI 47.3; BMI 48.5
--- NOTE | 2017-09-07 19:49 | NURSING ---
At 1800 per report patient arrived to this unit via wheelchair from [facility].
--- NOTE | 2017-09-07 20:05 | PCM.HP.STD ---
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 (9) Osteomyelitis Status: Suspected (10) Ulcer of right foot with necrosis of muscle Status: Acute (11) Ulcer of left lower extremity with fat layer exposed Status: Chronic (12) Chronic kidney disease (CKD) Status: Chronic Qualifiers: (13) Anemia Status: Chronic (14) Lymphedema Status: Chronic (15) GERD (gastroesophageal reflux disease) Status: Chronic (16) Hypertension Status: Chronic (17) Hyperlipemia Status: Chronic History of Present Illness Date of Admission: 09/07/17 Chief Complaint: Here for rehabilitation, strengthening, wound care, intravenous antibiotics, prior to discharge home alone. The patient is a 57 year old Male with below past medical history [facility] with right forefoot ulcer, left stump ulcer, right heel ulcer, bilateral leg ulcers. He was seen by Dr. Lux who recommended admission to hospital for intravenous antibiotics, and debridement. 09/01/2017 Admit to Hospital. Right heel ulcer needs debridement, IV antibiotics. IV Vancomycin, IV Meropenem, right heel ulcer infection. Humulin R U-500 changed to combination of Levemir, Novolog. 09/01/2017 X-ray right foot negative for osteomyelitis. 09/02/2017 Dr. Daigle MRSA negative, stop Vancomycin. Continue Meropenem awaiting culture results. IV antibiotics until debridement or amputation. 09/03/2017 Dr. Lux performed debridement of right heel including bone. Cultures growing multiple organisms. Dr. Daigle recommended 2 weeks of intravenous antibiotics. 09/07/2017 Admit to TCU for rehabilitation, strengthening, wound care, intravenous antibiotics, prior to discharge home alone. Right upper extremity PICC line placed. Past Medical History Past Medical History (Chronic Problems): Chronic Problems Ulcer of right foot with necrosis of bone (Chronic) Diabetes mellitus (Chronic) Morbid obesity (Chronic) Venous stasis dermatitis (Chronic) PAOD (peripheral arterial occlusive disease) (Chronic) Neuropathic pain (Chronic) DVT (deep venous thrombosis) (Chronic) Ulcer of left lower extremity with fat layer exposed (Chronic) Chronic kidney disease (CKD) (Chronic) Anemia (Chronic) BKA stump complication (Chronic) Hx of osteomyelitis (Chronic) Left lower leg amputation. 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) Delayed wound healing (Chronic) Malnutrition (Chronic) Venous insufficiency (Chronic) Lymphedema (Chronic) Edema of both legs (Chronic) GERD (gastroesophageal reflux disease) (Chronic) Hypertension (Chronic) Hyperlipemia (Chronic) Morbid obesity with BMI of 45.0-49.9, adult (Chronic) Hyperlipidemia associated with type 2 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(Chronic) 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 Allergies bee venom protein (honey bee) Allergy (Verified 01/08/17 12:04) Swelling metronidazole [From Flagyl] Allergy (Verified 01/13/17 14:51) Itching Home Medications: Ambulatory Orders Medication Instructions Recorded Atorvastatin Calcium [Lipitor] 10 mg PO QHS 01/08/17 Brimonidine Tartrate 0.2% 1 drop EACH EYE BID 01/08/17 [Brimonidine 0.2% 5Ml Bottle] Ergocalciferol [Vitamin D] 50,000 unit PO FR 01/08/17 Gabapentin [Neurontin] 1,600 mg PO QHS 01/08/17 Gabapentin [Neurontin] 600 mg PO DAILY 01/08/17 Insulin U-500 [Humulin R U-500 105 units SC DINNER 01/08/17 ([facility])] Insulin U-500 [Humulin R U-500 105 units SC LUNCH 01/08/17 ([facility])] Insulin U-500 [Humulin R U-500 160 units SC BREAKFAST 01/08/17 ([facility])] Latanoprost 0.005% [Xalatan 1 drop EACH EYE QHS 01/08/17 Opthalmic] Losartan Potassium [Cozaar] 50 mg PO DAILY 01/08/17 Nebivolol HCl [Bystolic (Beta 10 mg PO DAILY 01/08/17 [place])] Omeprazole [Prilosec] 40 mg PO DAILY 01/08/17 Acetaminophen [Tylenol Tablet] 650 mg PO Q6H PRN PRN tablet 09/07/17 Clopidogrel Bisulfate [Plavix] 75 mg PO DAILY 09/07/17 Hydrocodone Bitart/Apap 5-325 1 - 2 tab PO Q4H PRN PRN #10 tab 09/07/17 [[place] 5/325] Meropenem [Merrem] 500 mg IV Q8 09/07/17 Surgical History: tonsillectomy, - - below the knee amputation left leg, surgery on detached retina, laser surgery on eyes secondary to diabetic retinopathy, right little toe amputation, right foot surgery Psychiatric History: No pertinent psych hx Lives: Alone Smoking Status: Former smoker Tobacco Use: Non-smoker Alcohol: None Drugs: None - *Family History Maternal History Items: Diabetes Paternal History Items: Hypertension Sibling History Items: Diabetes Review of Systems Constitutional: Denies: Chills, Fever, Weight Change HEENT: Denies: Head Aches, Sinus Congestion, Sinus Drainage Cardiovascular: Denies: Chest Pain, Palpitations Respiratory: Denies: Cough, Shortness of breath at rest, Sputum production Gastrointestinal: Denies: Abdominal Pain, Nausea, Vomiting Genitourinary: Denies: Dysuria Musculoskeletal: Denies: Joint Pain, Joint Tenderness Skin: Denies: Rash, Wounds Neurological: Denies: Numbness, Tingling, Focal weakness Psychiatric: Denies: Anxiety, Depression, Homicidal Ideations, Suicidal Ideations Hematologic/ Lymphatic: Denies: Easy Bruising, Easy Bleeding VTE Information - Inpt Only VTE Present on Admission: No VTE Mechan Device Prophylaxis: Knee High ISIDRO Hose VTE Pharm Prophylaxis ordered?: Yes - Physical Exam General: Alert, Oriented x3, Cooperative HEENT: Atraumatic, PERRLA, EOMI, Normocephalic Neck: Supple, No JVD, Negative Carotid Bruits Lungs: Clear to auscultation, Normal air movement Cardiovascular: Regular rate, No murmurs Abdomen: Bowel Sounds Present, Soft, Non Tender Extremities: No edema, Capillary Refill Less than 3 Seconds, - - Left below the knee amputation. Skin: No rashes, Ulcer/ Wound - Right heel ulcer wrapped in dressing, CLAUDE wraps. Musculoskeletal: No Tenderness to Palpation of Joints or Extremities Neurological: Cranial nerves II-XII grossly intact Psych/Mental Status: Normal Affect, Appropriate Vital Signs Temp Pulse Resp BP Pulse Ox 98.2 F 86 20 H 144/57 H 96 09/07/17 18:05 09/07/17 18:05 09/07/17 18:05 09/07/17 18:05 09/07/17 18:05 Oxygen Delivery Method Room Air Finger Stick Blood Glucose 278 Intake and Output for Last 24 Hours 09/05/17 09/06/17 09/07/17 23:59 23:59 23:59 Intake Total 0 / 0 Balance 0 / 0 Assessment/Plan 57 year old male with below past medical history hospitalized for right heel infected ulcer, underwent debridement 09/03/[address] Lux, admitted to TCU for rehabilitation, strengthening, wound care, intravenous antibiotics, prior to discharge home alone. Debility - PT/OT. Pain - Tylenol 1000MG Q8H PRN mild pain, Oxycodone 5MG Q4H PRN moderate pain. Bowel - Miralax 17GM daily, Senna/colace 2 tablets BID, Dulcolax 10MG MT daily PRN. Pneumonia vaccination - Administer Prevnar 13 and/or Pneumovax 23 as necessary. DVT prophylaxis - Lovenox 40MG SC daily. Hyperlipidemia - Atorvastatin 40MG QHS. Glaucoma - Brimonidine 1GTT OU BID, Xalatan 1GTT OU QHS. CV prophylaxis - Plavix 75MG daily. Vitamin D deficiency - D2 50,000 units per week. Neuropathic pain - Gabapentin 600MG QAM, 1600MG QHS. Diabetes Mellitus II - Humulin R U-500 160 units QAM, 105 units QLUNCH, 105 units QDINNER. Hypertension - Bystolic 10MG daily, Losartan 50MG daily. Right heel ulcer infection - Meropenem 500MG IV Q8H, Dr. Daigle for stop date. Nutrition - Madhu 1 packet BID. GERD - Pantoprazole 40MG daily.
--- NOTE | 2017-09-07 20:15 | HP.PCM_ITS ---
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 (9) Osteomyelitis Status: Suspected (10) Ulcer of right foot with necrosis of muscle Status: Acute (11) Ulcer of left lower extremity with fat layer exposed Status: Chronic (12) Chronic kidney disease (CKD) Status: Chronic Qualifiers: (13) Anemia Status: Chronic (14) Lymphedema Status: Chronic (15) GERD (gastroesophageal reflux disease) Status: Chronic (16) Hypertension Status: Chronic (17) Hyperlipemia Status: Chronic History of Present Illness Date of Admission: 09/07/17 Chief Complaint: Here for rehabilitation, strengthening, wound care, intravenous antibiotics, prior to discharge home alone. The patient is a 57 year old Male with below past medical history [facility] with right forefoot ulcer, left stump ulcer, right heel ulcer, bilateral leg ulcers. He was seen by Dr. Lux who recommended admission to hospital for intravenous antibiotics, and debridement. 09/01/2017 Admit to Hospital. Right heel ulcer needs debridement, IV antibiotics. IV Vancomycin, IV Meropenem, right heel ulcer infection. Humulin R U-500 changed to combination of Levemir, Novolog. 09/01/2017 X-ray right foot negative for osteomyelitis. 09/02/2017 Dr. Daigle MRSA negative, stop Vancomycin. Continue Meropenem awaiting culture results. IV antibiotics until debridement or amputation. 09/03/2017 Dr. Lux performed debridement of right heel including bone. Cultures growing multiple organisms. Dr. Daigle recommended 2 weeks of intravenous antibiotics. 09/07/2017 Admit to TCU for rehabilitation, strengthening, wound care, intravenous antibiotics, prior to discharge home alone. Right upper extremity PICC line placed. Past Medical History Past Medical History (Chronic Problems): Chronic Problems Ulcer of right foot with necrosis of bone (Chronic) Diabetes mellitus (Chronic) Morbid obesity (Chronic) Venous stasis dermatitis (Chronic) PAOD (peripheral arterial occlusive disease) (Chronic) Neuropathic pain (Chronic) DVT (deep venous thrombosis) (Chronic) Ulcer of left lower extremity with fat layer exposed (Chronic) Chronic kidney disease (CKD) (Chronic) Anemia (Chronic) BKA stump complication (Chronic) Hx of osteomyelitis (Chronic) Left lower leg amputation. 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) Delayed wound healing (Chronic) Malnutrition (Chronic) Venous insufficiency (Chronic) Lymphedema (Chronic) Edema of both legs (Chronic) GERD (gastroesophageal reflux disease) (Chronic) Hypertension (Chronic) Hyperlipemia (Chronic) Morbid obesity with BMI of 45.0-49.9, adult (Chronic) Hyperlipidemia associated with type 2 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(Chronic) 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 Allergies bee venom protein (honey bee) Allergy (Verified 01/08/17 12:04) Swelling metronidazole [From Flagyl] Allergy (Verified 01/13/17 14:51) Itching Home Medications: Ambulatory Orders Medication Instructions Recorded Atorvastatin Calcium [Lipitor] 10 mg PO QHS 01/08/17 Brimonidine Tartrate 0.2% 1 drop EACH EYE BID 01/08/17 [Brimonidine 0.2% 5Ml Bottle] Ergocalciferol [Vitamin D] 50,000 unit PO FR 01/08/17 Gabapentin [Neurontin] 1,600 mg PO QHS 01/08/17 Gabapentin [Neurontin] 600 mg PO DAILY 01/08/17 Insulin U-500 [Humulin R U-500 105 units SC DINNER 01/08/17 ([facility])] Insulin U-500 [Humulin R U-500 105 units SC LUNCH 01/08/17 ([facility])] Insulin U-500 [Humulin R U-500 160 units SC BREAKFAST 01/08/17 ([facility])] Latanoprost 0.005% [Xalatan 1 drop EACH EYE QHS 01/08/17 Opthalmic] Losartan Potassium [Cozaar] 50 mg PO DAILY 01/08/17 Nebivolol HCl [Bystolic (Beta 10 mg PO DAILY 01/08/17 [place])] Omeprazole [Prilosec] 40 mg PO DAILY 01/08/17 Acetaminophen [Tylenol Tablet] 650 mg PO Q6H PRN PRN tablet 09/07/17 Clopidogrel Bisulfate [Plavix] 75 mg PO DAILY 09/07/17 Hydrocodone Bitart/Apap 5-325 1 - 2 tab PO Q4H PRN PRN #10 tab 09/07/17 [[place] 5/325] Meropenem [Merrem] 500 mg IV Q8 09/07/17 Surgical History: tonsillectomy, - - below the knee amputation left leg, surgery on detached retina, laser surgery on eyes secondary to diabetic retinopathy, right little toe amputation, right foot surgery Psychiatric History: No pertinent psych hx Lives: Alone Smoking Status: Former smoker Tobacco Use: Non-smoker Alcohol: None Drugs: None - *Family History Maternal History Items: Diabetes Paternal History Items: Hypertension Sibling History Items: Diabetes Review of Systems Constitutional: Denies: Chills, Fever, Weight Change HEENT: Denies: Head Aches, Sinus Congestion, Sinus Drainage Cardiovascular: Denies: Chest Pain, Palpitations Respiratory: Denies: Cough, Shortness of breath at rest, Sputum production Gastrointestinal: Denies: Abdominal Pain, Nausea, Vomiting Genitourinary: Denies: Dysuria Musculoskeletal: Denies: Joint Pain, Joint Tenderness Skin: Denies: Rash, Wounds Neurological: Denies: Numbness, Tingling, Focal weakness Psychiatric: Denies: Anxiety, Depression, Homicidal Ideations, Suicidal Ideations Hematologic/ Lymphatic: Denies: Easy Bruising, Easy Bleeding VTE Information - Inpt Only VTE Present on Admission: No VTE Mechan Device Prophylaxis: Knee High ISIDRO Hose VTE Pharm Prophylaxis ordered?: Yes - Physical Exam General: Alert, Oriented x3, Cooperative HEENT: Atraumatic, PERRLA, EOMI, Normocephalic Neck: Supple, No JVD, Negative Carotid Bruits Lungs: Clear to auscultation, Normal air movement Cardiovascular: Regular rate, No murmurs Abdomen: Bowel Sounds Present, Soft, Non Tender Extremities: No edema, Capillary Refill Less than 3 Seconds, - - Left below the knee amputation. Skin: No rashes, Ulcer/ Wound - Right heel ulcer wrapped in dressing, CLAUDE wraps. Musculoskeletal: No Tenderness to Palpation of Joints or Extremities Neurological: Cranial nerves II-XII grossly intact Psych/Mental Status: Normal Affect, Appropriate Vital Signs Temp Pulse Resp BP Pulse Ox 98.2 F 86 20 H 144/57 H 96 09/07/17 18:05 09/07/17 18:05 09/07/17 18:05 09/07/17 18:05 09/07/17 18:05 Oxygen Delivery Method Room Air Finger Stick Blood Glucose 278 Intake and Output for Last 24 Hours 09/05/17 09/06/17 09/07/17 23:59 23:59 23:59 Intake Total 0 / 0 Balance 0 / 0 Assessment/Plan 57 year old male with below past medical history hospitalized for right heel infected ulcer, underwent debridement 09/03/[address] Lux, admitted to TCU for rehabilitation, strengthening, wound care, intravenous antibiotics, prior to discharge home alone. * Debility - PT/OT. * Pain - Tylenol 1000MG Q8H PRN mild pain, Oxycodone 5MG Q4H PRN moderate pain. * Bowel - Miralax 17GM daily, Senna/colace 2 tablets BID, Dulcolax 10MG MA daily PRN. * Pneumonia vaccination - Administer Prevnar 13 and/or Pneumovax 23 as necessary. * DVT prophylaxis - Lovenox 40MG SC daily. * Hyperlipidemia - Atorvastatin 40MG QHS. * Glaucoma - Brimonidine 1GTT OU BID, Xalatan 1GTT OU QHS. * CV prophylaxis - Plavix 75MG daily. * Vitamin D deficiency - D2 50,000 units per week. * Neuropathic pain - Gabapentin 600MG QAM, 1600MG QHS. * Diabetes Mellitus II - Humulin R U-500 160 units QAM, 105 units QLUNCH, 105 units QDINNER. * Hypertension - Bystolic 10MG daily, Losartan 50MG daily. * Right heel ulcer infection - Meropenem 500MG IV Q8H, Dr. Daigle for stop date. * Nutrition - Madhu 1 packet BID. * GERD - Pantoprazole 40MG daily.
[2017-09-07 21:00] LABS: Bedside Glucose 148 mg/dL (70-110)
[2017-09-07] MEDS: Latanoprost 0.005% 1 Bottle 1 DRP EACH EYE (23:05)
[2017-09-07] MEDS: Atorvastatin Calcium 40 MG Tablet PO (23:05)
[2017-09-07] MEDS: Gabapentin 800 MG Tablet 1600 MG PO (23:05)
[2017-09-08 05:08] VITALS: BP 151/73; PULSE 75; RESP 16; TEMP 36.2; O2SAT 95
[2017-09-08] MEDS: Glucerna Shake 120 ML LIQUID PO ×4 (05:10→21:39)
[2017-09-08] MEDS: Polyethylene Glycol 3350 17 GM PACKET PO (05:10)
[2017-09-08] MEDS: Enoxaparin 40 MG/0.4 ML Syringe SC (05:11)
[2017-09-08] MEDS: 0.9% NaCl PICC Flush IV ×3 (05:11→21:41)
[2017-09-08] MEDS: BRIMONIDINE 0.2% 5ML BOTTLE 1 DRP EACH EYE ×2 (05:11→17:40)
[2017-09-08] MEDS: Nebivolol HCl 10 MG Tablet PO (05:12)
[2017-09-08] MEDS: Clopidogrel Bisulfate 75 MG Tablet PO (05:12)
[2017-09-08] MEDS: Gabapentin 600 MG Tablet PO (05:12)
[2017-09-08] MEDS: Senna/Docusate Sodium 1 Tablet 2 TABLET PO (05:12)
[2017-09-08] MEDS: Pantoprazole Sodium 40 MG Tablet PO (05:12)
[2017-09-08] MEDS: Losartan Potassium 50 MG Tablet PO (05:12)
[2017-09-08] MEDS: Nystatin Powder 15gm Bottle 1 APPLIC TOPICAL ×2 (05:14→21:39)
[2017-09-08] MEDS: Menthol/Lanolin/Calamine/Znox 113 GM Tube 1 APPLIC TOPICAL ×3 (05:15→21:38)
[2017-09-08 06:12] LABS: Anion Gap 7 (5-15); BUN 42 mg/dL (7-18); BUN/Creat Ratio 24.4 RATIO (10-20); Calcium,Total 8.3 mg/dL (8.5-10.1); Chloride 105 mmol/L (98-107); Creatinine, Serum 1.72 mg/dL (0.70-1.30); EST Glomerular Filtration Rate 43 mL/min (>60); Est Glom Filt Rate - Afr Amer 53 mL/min (>60); Estimated Creatinine Clearance 41.73 ml/min; Glucose 132 mg/dL (74-106); Potassium 4.7 mmol/L (3.5-5.1); Sodium Level 141 mmol/L (136-145)
[2017-09-08 06:17] LABS: Absolute Lymphocyte Count 1.78 X10^3/ul (0.83-4.51); Absolute Neutrophil Count 6.2 X10^3/uL (2.0-7.7); Basophil# 0.02 X10^3/uL; Basophil% 0.2 % (0-1); Eosinophil# 0.28 X10^3/uL; Eosinophils% 3.1 % (0-5); Hematocrit 29.2 % (40-54); Hemoglobin 8.9 g/dl (13.0-16.5); Lymphocyte # 1.78 X10^3/ul (4.0); Lymphocyte % 19.5 % (19-41); Mean Corp Hgb Conc 30.5 g/gl (32-36); Mean Corpuscular Volume 88.5 fL (80-94); Mean Platelet Vol. 9.9 fl (6.2-12.0); Monocyte# 0.64 X10^3/uL; Neutrophil # 6.19 X10^3/uL (2.7-7.7); Neutrophil % 67.8 % (47-70); Platelet Count 186 K/mm3 (150-450); RBC Distribution Width CV 15.5 % (11.6-14.6); RBC Distribution Width SD 47.8 fl (35.1-43.9); White Blood Count 9.1 K/mm3 (4.4-11.0)
[2017-09-08 06:19] LABS: POSITIVE COUNT YES; POSITIVE DIFFERENTIAL NO; POSITIVE MORPHOLOGY YES
[2017-09-08 08:06] LABS: Bedside Glucose 168 mg/dL (70-110)
--- NOTE | 2017-09-08 10:13 | NURSING ---
wound photo: toes of right foot
--- NOTE | 2017-09-08 10:14 | NURSING ---
wound photo: right medial heel
--- NOTE | 2017-09-08 10:14 | NURSING ---
wound photo: right posterior knee
[2017-09-08] MEDS: Tuberculin,Purif.prot.deriv. 50 TU/ML Vial 5 ML ID (10:29)
[2017-09-08 12:16] LABS: Bedside Glucose 256 mg/dL (70-110)
--- NOTE | 2017-09-08 14:23 | PN.ID_ITS ---
Subjective: Feeling ok, no fever, no n/v/d with iv abx. - Physical Exam General: Alert, Cooperative, No apparent distress Lungs: Clear to auscultation, Normal air movement Cardiovascular: Regular rate, Regular Rhythm Abdomen: Soft, Non Tender, Non-Distended Skin: Ulcer/ Wound - R heel bandaged, reviewed photos Vital Signs Temp Pulse Resp BP Pulse Ox 97.1 F L 75 16 151/73 H 95 09/08/17 05:08 09/08/17 05:08 09/08/17 05:08 09/08/17 05:08 09/08/17 05:08 Oxygen Delivery Method Room Air Weight: 136.758 kg Body Mass Index (BMI) 48.5 Finger Stick Blood Glucose 278 Intake and Output for Last 24 Hours 09/06/17 09/07/17 09/08/17 23:59 23:59 23:59 Intake Total 0 / 0 960 / 960 Balance 0 / 0 960 / 960 Laboratory Tests Past 24 Hrs 09/08/17 09/08/17 05:30 05:30 WBC 9.1 RBC 3.30 L Hgb 8.9 L Hct 29.2 L MCV 88.5 MCH 27.0 MCHC 30.5 L RDW 15.5 H RDW Differential 47.8 H Plt Count 186 MPV 9.9 Immature Gran % (Auto) 2.400 H Neut % (Auto) 67.8 Lymph % (Auto) 19.5 [place] % (Auto) 7.0 Eos % (Auto) 3.1 Baso % (Auto) 0.2 Absolute Neuts (auto) 6.2 Absolute Lymphs (auto) 1.78 Total Counted Not Reportable Diff Path Review October foll Sodium 141 Potassium 4.7 Chloride 105 Carbon Dioxide 29.0 Anion Gap 7 BUN 42 H Creatinine 1.72 H Estim Creat Clear Calc 41.73 Est GFR (MDRD) Af Amer 53 L Est GFR (MDRD) Non-Af 43 L BUN/Creatinine Ratio 24.4 H Glucose 132 H Calcium 8.3 L POC Glucose 09/08/17 09/08/17 09/07/17 12:07 08:00 20:53 POC Glucose 256 H 168 H 148 H Medical Necessity - Tobacco Use Smoking Status: Former smoker Tobacco Use: Non-smoker Route of nutrition/ use of supplements: [] Nutritional Intake: [] IV Site: [] Elizalde Catheter: [] - Assessment/Plan Antibiotics: [] Assessment/Plan: [] R heel chronic infected ulcer - Had MRI w/o contrast in 07/2017 with no osteo seen. Bone cx and path neg for osteo from 09/03/17. Wound and surg cx with multiple bacteria, including morganella, providencia, enterococcus, and proteus. Cont meropenem, picc in place. Planned stop date is 09/14/17 for total 2 week course. Will follow
[2017-09-08 15:45] VITALS: BP 127/50; PULSE 79; RESP 18; TEMP 36.2; O2SAT 95
[2017-09-08 16:50] LABS: Bedside Glucose 217 mg/dL (70-110)
[2017-09-08 21:06] LABS: Bedside Glucose 207 mg/dL (70-110)
[2017-09-08] MEDS: Latanoprost 0.005% 1 Bottle 1 DRP EACH EYE (21:39)
[2017-09-08] MEDS: Gabapentin 800 MG Tablet 1600 MG PO (21:39)
[2017-09-08] MEDS: Atorvastatin Calcium 40 MG Tablet PO (21:39)
[2017-09-09] MEDS: 0.9% NaCl PICC Flush IV ×3 (05:03→22:40)
[2017-09-09] MEDS: BRIMONIDINE 0.2% 5ML BOTTLE 1 DRP EACH EYE ×2 (05:04→17:27)
[2017-09-09] MEDS: Glucerna Shake 120 ML LIQUID PO ×4 (05:06→21:01)
[2017-09-09] MEDS: Menthol/Lanolin/Calamine/Znox 113 GM Tube 1 APPLIC TOPICAL ×2 (05:06→21:03)
[2017-09-09] MEDS: Losartan Potassium 50 MG Tablet PO (05:06)
[2017-09-09] MEDS: Nebivolol HCl 10 MG Tablet PO (05:06)
[2017-09-09] MEDS: Enoxaparin 40 MG/0.4 ML Syringe SC (05:07)
[2017-09-09] MEDS: Clopidogrel Bisulfate 75 MG Tablet PO (05:07)
[2017-09-09] MEDS: Pantoprazole Sodium 40 MG Tablet PO (05:07)
[2017-09-09] MEDS: Nystatin Powder 15gm Bottle 1 APPLIC TOPICAL ×2 (05:07→21:04)
[2017-09-09 06:46] LABS: Bedside Glucose 226 mg/dL (70-110)
[2017-09-09] MEDS: Gabapentin 600 MG Tablet PO (07:57)
--- NOTE | 2017-09-09 08:49 | NURSING ---
ambulatory surgery called, pt getting wound debridement & possible wound vac placement by dr owusu tomorrow at 1p, pt NPO after midnight. Hold all blood thinners. Pt can take Losartan, Bystolic and Protonix. only 1/2 dose of long acting insulin.
--- NOTE | 2017-09-09 09:30 | PCM.PROGNOTE ---
Subjective: This 57-year-old male with multiple comorbidities as seen bedside this morning for follow-up of right lower extremity ulcers. He recently had a right calcaneus bone biopsy and debridement of the right heel. Wound care nurse has been seeing him to perform daily dressing changes. He has been demonstrating resolution of acute signs of infection in his bone biopsy results are negative for osteomyelitis so far. He denies pain, fever, chill, nausea, vomiting. During his last visit, his last below-knee amputation stump site ulcer was healed and there is significant reduction in his right leg ulcers and right forefoot ulcer. He is resting comfortably in bed. - Physical Exam General: Alert, Oriented x3, Cooperative Extremities: No cyanosis, Capillary Refill Less than 3 Seconds - Right lower extremity, No Calf Tenderness, Edema Skin: Ulcer/ Wound - The outer dressings to the right lower extremity are clean dry and intact without strikethrough or odor Musculoskeletal: No Tenderness to Palpation of Joints or Extremities, Muscle Wasting, - - Left below-knee amputation Neurological: - - Lack of epicritic sensation light touch Psych/Mental Status: Normal Affect, Appropriate Vital Signs Temp Pulse Resp BP Pulse Ox 97.1 F L 79 18 127/50 H 95 09/08/17 15:45 09/08/17 15:45 09/08/17 15:45 09/08/17 15:45 09/08/17 15:45 Oxygen Delivery Method Nasal Cannula Weight: 136.758 kg Body Mass Index (BMI) 48.5 Finger Stick Blood Glucose 278 Intake and Output for Last 24 Hours 09/07/17 09/08/17 09/09/17 23:59 23:59 23:59 Intake Total 0 / 0 1440 / 1440 240 / 240 Output Total 1050 / 1050 Balance 0 / 0 1440 / 1440 -810 / -810 POC Glucose 09/09/17 09/08/17 09/08/17 06:27 20:56 16:47 POC Glucose 226 H 207 H 217 H 09/08/17 12:07 POC Glucose 256 H Medical Necessity - Tobacco Use Smoking Status: Former smoker Tobacco Use: Non-smoker Assessment/Plan Right heel ulcer with exposed bone and muscle is now status post aggressive debridement and status post calcaneus bone biopsy Right foot ulcer with fat layer exposed Right leg ulcer with fat layer exposed Left leg ulcer recently healed Left below-knee amputation healed Edema and lymphedema bilateral lower extremities Diabetes with peripheral neuropathy Chronic kidney disease on hemodialysis Delayed healing Malnutrition Compliance challenges Other comorbidities I reviewed and discussed his case again today. The dressings will be changed again today by nursing staff which is greatly appreciated. He has been progressing well in his local and systemic signs of illness have resolved. I recommend advanced wound care product application to speed the healing process. It is noted he is now in the transitional care unit which is not part of the inpatient unit. He has not been able to heal the wounds with traditional measures and this is considered medically necessary for limb and life salvage. Preauthorization for application of Jg fell and epi cord will be obtained prior to proceeding. Tentatively has surgery scheduled for tomorrow at 1 PM. The anticipated surgical intervention will require MAC and local anesthesia and general anesthesia will not be utilized. The presurgical indications, benefits, risks, complications, and anticipated healing time and management were discussed in detail the patient. Informed surgical consent and limb will need to be signed. He understands and elects to proceed at this time. I answered all of his questions to his satisfaction. It is noted the size of the wound that will receive this advanced wound care product is located to the right heel and has a measurement of 4 cm x 5.5 cm x 1.6 cm with exposed fascia and bone tissue. There is no current anna necrosis or infection. His PICC line is in place with stop anticipation date of 09/14/2017. His calcaneus bone biopsy is negative for osteomyelitis so far. To continue to optimize healing by remaining on weightbearing and elevating the limbs. To continue with compression dressings to control edema. To continue with nutritional supplementation, Madhu, to optimize healing. To continue proper glycemic control. It is noted his left stump ulcer site is recently healed. I recommend proceeding with shrinkage and prosthetic device progression if this is still healed when I checked again tomorrow. An order of this device will be provided for him to obtain at [email or web address]. Medical management and DVT prophylaxis per primary team is appreciated. This case will be discussed with Dr. Bullock, managing house physician. Rachele Lux, [facility] [id number]
--- NOTE | 2017-09-09 10:41 | PCM.PN.RX ---
<Slim Zapien D - Last Filed: 09/09/17 10:41> Progress Note - Pharmacy Subjective: [] Objective: Allergies bee venom protein (honey bee) Allergy (Verified 09/09/17 08:38) Swelling metronidazole [From Flagyl] Allergy (Verified 09/09/17 08:38) Itching Home Medications Medication Instructions Recorded Atorvastatin Calcium [Lipitor] 10 mg PO QHS 01/08/17 Brimonidine Tartrate 0.2% 1 drop EACH EYE BID 01/08/17 [Brimonidine 0.2% 5Ml Bottle] Ergocalciferol [Vitamin D] 50,000 unit PO FR 01/08/17 Gabapentin [Neurontin] 1,600 mg PO QHS 01/08/17 Gabapentin [Neurontin] 600 mg PO DAILY 01/08/17 Insulin U-500 [Humulin R U-500 105 units SC DINNER 01/08/17 ([facility])] Insulin U-500 [Humulin R U-500 105 units SC LUNCH 01/08/17 ([facility])] Insulin U-500 [Humulin R U-500 160 units SC BREAKFAST 01/08/17 ([facility])] Latanoprost 0.005% [Xalatan 1 drop EACH EYE QHS 01/08/17 Opthalmic] Losartan Potassium [Cozaar] 50 mg PO DAILY 01/08/17 Nebivolol HCl [Bystolic (Beta 10 mg PO DAILY 01/08/17 Akira)] Omeprazole [Prilosec] 40 mg PO DAILY 01/08/17 Acetaminophen [Tylenol Tablet] 650 mg PO Q6H PRN PRN tablet 09/07/17 Clopidogrel Bisulfate [Plavix] 75 mg PO DAILY 09/07/17 Hydrocodone Bitart/Apap 5-325 1 - 2 tab PO Q4H PRN PRN #10 tab 09/07/17 [[place] 5/325] Meropenem [Merrem] 500 mg IV Q8 09/07/17 Current Medications Generic Name Dose Route Start Last Admin Trade Name Freq PRN Reason Stop Dose Admin Acetaminophen 1,000 mg 09/07/17 20:27 Tylenol PO Q8H PRN PRN MILD PAIN (1-3/10) Atorvastatin Calcium 40 mg 09/07/17 22:00 09/08/17 21:39 Lipitor PO 40 mg QHS [facility] Administration Bisacodyl 10 mg 09/07/17 20:26 Dulcolax RECTAL DAILY PRN Constipation Brimonidine Tartrate 1 drop 09/08/17 06:00 09/09/17 05:04 Brimonidine 0.2% 5ml Bottle EACH EYE 1 drop BID [facility] Administration Calamine/Phenol 1 applic 09/07/17 22:00 09/09/17 05:06 Calmoseptine Ointment TOPICAL 1 applic TID [facility] Administration Protocol Clopidogrel Bisulfate 75 mg 09/08/17 06:00 09/09/17 08:44 Plavix PO Not Given DAILY [facility] Emollient Ointment 1 applic 09/07/17 22:00 09/09/17 05:06 Eucerin Intensive Repair TOPICAL 1 applicatio 0600,2200 [facility] Administration Protocol Enoxaparin Sodium 40 mg 09/08/17 06:00 09/09/17 08:42 Lovenox SC Not Given DAILY@0600 [facility] Ergocalciferol 50,000 unit 09/10/17 06:00 Vitamin D PO Fr@0600 [facility] Gabapentin 600 mg 09/08/17 06:00 09/09/17 07:57 Neurontin PO 600 mg DAILY@0800 [facility] Administration Gabapentin 1,600 mg 09/07/17 22:00 09/08/17 21:39 Neurontin PO 1,600 mg QHS [facility] Administration Heparin Sodium (Beef Lung) 500 unit 09/08/17 04:24 Heparin 500 Unit/5 Ml (100/Ml) IV UD PRN HEPARIN FLUSH Meropenem 500 mg/ Sodium 60 mls @ 100 mls/hr 09/07/17 22:00 09/09/17 05:07 Chloride IV 100 mls/hr Q8 [facility] Administration Insulin Human Regular 0.32 ml 09/09/17 07:00 09/09/17 08:44 Humulin R U-500 (Bkc) SC Not Given BREAKFAST@0700 [facility] Insulin Human Regular 0.21 ml 09/09/17 11:00 Humulin R U-500 (Bkc) SC LUNCH@1100 [facility] Insulin Human Regular 0.21 ml 09/09/17 17:00 Humulin R U-500 ([facility]) SC DINNER@1700 [facility] Latanoprost 1 drop 09/07/17 22:00 09/08/17 21:39 Xalatan Opthalmic EACH EYE 1 drop QHS [facility] Administration Losartan Potassium 50 mg 09/08/17 06:00 09/09/17 05:06 Cozaar PO 50 mg DAILY [facility] Administration Nebivolol 10 mg 09/08/17 06:00 09/09/17 05:06 Bystolic PO 10 mg DAILY [facility] Administration Nutritional Formula 1 packet 09/08/17 08:00 09/09/17 07:54 Madhu - [place] Flavor PO 1 packet BIDCM [facility] Administration Nutritional Formula (Lactose Free) 120 ml 09/08/17 06:00 09/09/17 08:45 Glucerna Shake PO Not Given 4X/DAY [facility] Nystatin 1 applic 09/07/17 22:00 09/09/17 05:07 Mycostatin Powder TOPICAL 1 applicatio 0600,2200 [facility] Administration Protocol Oxycodone HCl 5 mg 09/07/17 20:25 Oxyir PO Q4H PRN PRN MODERATE PAIN (4-5/10) Pantoprazole Sodium 40 mg 09/08/17 06:00 09/09/17 05:07 Protonix PO 40 mg DAILY [facility] Administration Polyethylene Glycol 17 gm 09/08/17 06:00 09/09/17 05:07 Miralax PO Not Given DAILY [facility] Senna/Docusate Sodium 2 tablet 09/08/17 06:00 09/09/17 05:07 Senokot-S, Martha-Colace PO Not Given BID [facility] Sodium Chloride 10 - 20 ml 09/08/17 04:24 09/09/17 05:03 IV 20 ml UD PRN Administration PICC FLUSH Tuberculin PPD 5 tu 09/15/17 10:00 Tubersol, Aplisol, Ppd ID 09/15/17 10:01 X1 ONE Problem List Diabetes mellitus (Chronic) Morbid obesity (Chronic) Venous stasis dermatitis (Chronic) PAOD (peripheral arterial occlusive disease) (Chronic) Neuropathic pain (Chronic) DVT (deep venous thrombosis) (Chronic) Vital Signs Temp Pulse Resp BP Pulse Ox 97.1 F L 79 18 127/50 H 95 09/08/17 15:45 09/08/17 15:45 09/08/17 15:45 09/08/17 15:45 09/08/17 15:45 Oxygen Delivery Method Nasal Cannula Weight: 136.758 kg Body Mass Index (BMI) 48.5 Finger Stick Blood Glucose 278 Sodium 141 mmol/L (136-145) 09/08/17 05:30 Potassium 4.7 mmol/L (3.5-5.1) 09/08/17 05:30 Chloride 105 mmol/L (98-107) 09/08/17 05:30 Carbon Dioxide 29.0 mmol/L (21.0-32.0) 09/08/17 05:30 Anion Gap 7 (5-15) 09/08/17 05:30 BUN 42 mg/dL (7-18) H 09/08/17 05:30 Creatinine 1.72 mg/dL (0.70-1.30) H 09/08/17 05:30 Est GFR (MDRD) Af Amer 53 mL/min (>60) L 09/08/17 05:30 Est GFR (MDRD) Non-Af 43 mL/min (>60) L 09/08/17 05:30 BUN/Creatinine Ratio 24.4 RATIO (10-20) H 09/08/17 05:30 Glucose 132 mg/dL (74-106) H 09/08/17 05:30 Assessment/Plan: 1) Pain APAP for mild pain, oxycodone for moderate pain, gabapentin. Continue to monitor prn medication use, daily pain scores. 2) DM2 Insulin u-500 3x/day. BGT in low 200s. Continue to monitor BGT, s/s hyper/hypoglycemia. 3) HTN Losartan, nebivolol. BP/HR within goal ranges, BUN/SCr at baseline, K wnl. Continue to monitor BP/HR, renal function, electrolytes. 4) CV PPx Clopidogrel daily. Continue to monitor for chest pain. 5) HLD Atorvastatin at HS. Lipids at goal, hepatic enzymes wnl. Continue to monitor lipids, enzymes. * 6) ID Meropenem 3x daily. Stop date per ID is 09/14/17, please add stop date to order. Continue to monitor s/s infection. 7) GI Pantoprazole daily. Continue to monitor for s/s GI distress. 8) Nutrition Glucerna, Madhu, ergocalciferol. Continue to monitor clinically. 9) Derm Calmoseptine, nystatin powder, emollient topically. Continue to monitor clinically. 10) Glaucoma Latanoprost, brimonidine. Continue to monitor clinically. 11) DVT PPx Enoxaparin daily. Continue to monitor s/s bleeding/clot. Psychotropic Medications: None Unnecessary Medications: None Bowel Regimen: 12) Senna/s, PEG, prn bisacodyl. Continue to monitor prn medication use, for constipation/diarrhea. Date of Note:: 09/09/17 - Provider Comments Provider responsibility: Provider responsible to enter orders to implement recommendations <Arnie Bullock Chi - Last Filed: 09/09/17 17:43> Progress Note - Pharmacy Subjective: [] Objective: Allergies bee venom protein (honey bee) Allergy (Verified 09/09/17 08:38) Swelling metronidazole [From Flagyl] Allergy (Verified 09/09/17 08:38) Itching Home Medications Medication Instructions Recorded Atorvastatin Calcium [Lipitor] 10 mg PO QHS 01/08/17 Brimonidine Tartrate 0.2% 1 drop EACH EYE BID 01/08/17 [Brimonidine 0.2% 5Ml Bottle] Ergocalciferol [Vitamin D] 50,000 unit PO FR 01/08/17 Gabapentin [Neurontin] 1,600 mg PO QHS 01/08/17 Gabapentin [Neurontin] 600 mg PO DAILY 01/08/17 Insulin U-500 [Humulin R U-500 105 units SC DINNER 01/08/17 ([facility])] Insulin U-500 [Humulin R U-500 105 units SC LUNCH 01/08/17 ([facility])] Insulin U-500 [Humulin R U-500 160 units SC BREAKFAST 01/08/17 ([facility])] Latanoprost 0.005% [Xalatan 1 drop EACH EYE QHS 01/08/17 Opthalmic] Losartan Potassium [Cozaar] 50 mg PO DAILY 01/08/17 Nebivolol HCl [Bystolic (Beta 10 mg PO DAILY 01/08/17 Akira)] Omeprazole [Prilosec] 40 mg PO DAILY 01/08/17 Acetaminophen [Tylenol Tablet] 650 mg PO Q6H PRN PRN tablet 09/07/17 Clopidogrel Bisulfate [Plavix] 75 mg PO DAILY 09/07/17 Hydrocodone Bitart/Apap 5-325 1 - 2 tab PO Q4H PRN PRN #10 tab 09/07/17 [[place] 5/325] Meropenem [Merrem] 500 mg IV Q8 09/07/17 Current Medications Generic Name Dose Route Start Last Admin Trade Name Freq PRN Reason Stop Dose Admin Acetaminophen 1,000 mg 09/07/17 20:27 Tylenol PO Q8H PRN PRN MILD PAIN (1-08/14) Atorvastatin Calcium 40 mg 09/07/17 22:00 09/08/17 21:39 Lipitor PO 40 mg QHS [facility] Administration Bisacodyl 10 mg 09/07/17 20:26 Dulcolax RECTAL DAILY PRN Constipation Brimonidine Tartrate 1 drop 09/08/17 06:00 09/09/17 17:27 Brimonidine 0.2% 5ml Bottle EACH EYE 1 drop BID [facility] Administration Calamine/Phenol 1 applic 09/07/17 22:00 09/09/17 15:07 Calmoseptine Ointment TOPICAL Not Given TID [facility] Protocol Clopidogrel Bisulfate 75 mg 09/08/17 06:00 09/09/17 08:44 Plavix PO Not Given DAILY [facility] Emollient Ointment 1 applic 09/07/17 22:00 09/09/17 05:06 Eucerin Intensive Repair TOPICAL 1 applicatio 0600,2200 [facility] Administration Protocol Enoxaparin Sodium 40 mg 09/08/17 06:00 09/09/17 08:42 Lovenox SC Not Given DAILY@0600 [facility] Ergocalciferol 50,000 unit 09/10/17 06:00 Vitamin D PO Fr@0600 [facility] Gabapentin 600 mg 09/08/17 06:00 09/09/17 07:57 Neurontin PO 600 mg DAILY@0800 [facility] Administration Gabapentin 1,600 mg 09/07/17 22:00 09/08/17 21:39 Neurontin PO 1,600 mg QHS [facility] Administration Heparin Sodium (Beef Lung) 500 unit 09/08/17 04:24 Heparin 500 Unit/5 Ml (100/Ml) IV UD PRN HEPARIN FLUSH Meropenem 500 mg/ Sodium 60 mls @ 100 mls/hr 09/07/17 22:00 09/09/17 14:58 Chloride IV 100 mls/hr Q8 [facility] Administration Insulin Human Regular 0.32 ml 09/09/17 07:00 09/09/17 08:44 Humulin R U-500 (Bkc) SC Not Given BREAKFAST@0700 [facility] Insulin Human Regular 0.21 ml 09/09/17 11:00 09/09/17 11:15 Humulin R U-500 ([facility]) SC 105 units LUNCH@1100 [facility] Administration Insulin Human Regular 0.21 ml 09/09/17 17:00 09/09/17 17:25 Humulin R U-500 ([facility]) SC 105 units DINNER@1700 [facility] Administration Latanoprost 1 drop 09/07/17 22:00 09/08/17 21:39 Xalatan Opthalmic EACH EYE 1 drop QHS [facility] Administration Losartan Potassium 50 mg 09/08/17 06:00 09/09/17 05:06 Cozaar PO 50 mg DAILY [facility] Administration Nebivolol 10 mg 09/08/17 06:00 09/09/17 05:06 Bystolic PO 10 mg DAILY [facility] Administration Nutritional Formula 1 packet 09/08/17 08:00 09/09/17 17:28 Madhu - [place] Flavor PO 1 packet BIDCM [facility] Administration Nutritional Formula (Lactose Free) 120 ml 09/08/17 06:00 09/09/17 17:26 Glucerna Shake PO 120 ml 4X/DAY [facility] Administration Nystatin 1 applic 09/07/17 22:00 09/09/17 05:07 Mycostatin Powder TOPICAL 1 applicatio 0600,2200 [facility] Administration Protocol Oxycodone HCl 5 mg 09/07/17 20:25 Oxyir PO Q4H PRN PRN MODERATE PAIN (4-5/10) Pantoprazole Sodium 40 mg 09/08/17 06:00 09/09/17 05:07 Protonix PO 40 mg DAILY [facility] Administration Polyethylene Glycol 17 gm 09/08/17 06:00 09/09/17 05:07 Miralax PO Not Given DAILY [facility] Senna/Docusate Sodium 2 tablet 09/08/17 06:00 09/09/17 17:27 Senokot-S, Martha-Colace PO Not Given BID [facility] Sodium Chloride 10 - 20 ml 09/08/17 04:24 09/09/17 14:58 IV 10 ml UD PRN Administration PICC FLUSH Sodium Chloride 250 ml 09/09/17 15:11 09/09/17 15:15 IV 250 ml PRN PRN Administration IV antibiotic Tuberculin PPD 5 tu 09/15/17 10:00 Tubersol, Aplisol, Ppd ID 09/15/17 10:01 X1 ONE Problem List Diabetes mellitus (Chronic) Morbid obesity (Chronic) Venous stasis dermatitis (Chronic) PAOD (peripheral arterial occlusive disease) (Chronic) Neuropathic pain (Chronic) DVT (deep venous thrombosis) (Chronic) Vital Signs Temp Pulse Resp BP Pulse Ox 96.6 F L 80 20 H 156/59 H 98 09/09/17 13:56 09/09/17 13:56 09/09/17 13:56 09/09/17 13:56 09/09/17 14:00 Oxygen Delivery Method Room Air Weight: 136.758 kg Body Mass Index (BMI) 48.5 Finger Stick Blood Glucose 278 Sodium 141 mmol/L (136-145) 09/08/17 05:30 Potassium 4.7 mmol/L (3.5-5.1) 09/08/17 05:30 Chloride 105 mmol/L (98-107) 09/08/17 05:30 Carbon Dioxide 29.0 mmol/L (21.0-32.0) 09/08/17 05:30 Anion Gap 7 (5-15) 09/08/17 05:30 BUN 42 mg/dL (7-18) H 09/08/17 05:30 Creatinine 1.72 mg/dL (0.70-1.30) H 09/08/17 05:30 Est GFR (MDRD) Af Amer 53 mL/min (>60) L 09/08/17 05:30 Est GFR (MDRD) Non-Af 43 mL/min (>60) L 09/08/17 05:30 BUN/Creatinine Ratio 24.4 RATIO (10-20) H 09/08/17 05:30 Glucose 132 mg/dL (74-106) H 09/08/17 05:30 Assessment/Plan: Psychotropic Medications: Unnecessary Medications: Bowel Regimen: - Provider Comments Provider responsibility: Provider responsible to enter orders to implement recommendations Provider Comments to Recommendations by Pharmacy: Agree
--- NOTE | 2017-09-09 11:10 | PHA.CONS_ITS ---
<Slim Zapien D - Last Filed: 09/09/17 10:41> Progress Note - Pharmacy Subjective: [] Objective: Allergies bee venom protein (honey bee) Allergy (Verified 09/09/17 08:38) Swelling metronidazole [From Flagyl] Allergy (Verified 09/09/17 08:38) Itching Home Medications Medication Instructions Recorded Atorvastatin Calcium [Lipitor] 10 mg PO QHS 01/08/17 Brimonidine Tartrate 0.2% 1 drop EACH EYE BID 01/08/17 [Brimonidine 0.2% 5Ml Bottle] Ergocalciferol [Vitamin D] 50,000 unit PO FR 01/08/17 Gabapentin [Neurontin] 1,600 mg PO QHS 01/08/17 Gabapentin [Neurontin] 600 mg PO DAILY 01/08/17 Insulin U-500 [Humulin R U-500 105 units SC DINNER 01/08/17 ([facility])] Insulin U-500 [Humulin R U-500 105 units SC LUNCH 01/08/17 ([facility])] Insulin U-500 [Humulin R U-500 160 units SC BREAKFAST 01/08/17 ([facility])] Latanoprost 0.005% [Xalatan 1 drop EACH EYE QHS 01/08/17 Opthalmic] Losartan Potassium [Cozaar] 50 mg PO DAILY 01/08/17 Nebivolol HCl [Bystolic (Beta 10 mg PO DAILY 01/08/17 Aikra)] Omeprazole [Prilosec] 40 mg PO DAILY 01/08/17 Acetaminophen [Tylenol Tablet] 650 mg PO Q6H PRN PRN tablet 09/07/17 Clopidogrel Bisulfate [Plavix] 75 mg PO DAILY 09/07/17 Hydrocodone Bitart/Apap 5-325 1 - 2 tab PO Q4H PRN PRN #10 tab 09/07/17 [[place] 5/325] Meropenem [Merrem] 500 mg IV Q8 09/07/17 Current Medications Generic Name Dose Route Start Last Admin Trade Name Freq PRN Reason Stop Dose Admin Acetaminophen 1,000 mg 09/07/17 20:27 Tylenol PO Q8H PRN PRN MILD PAIN (1-3/10) Atorvastatin Calcium 40 mg 09/07/17 22:00 09/08/17 21:39 Lipitor PO 40 mg QHS ARTHUR Administration Bisacodyl 10 mg 09/07/17 20:26 Dulcolax RECTAL DAILY PRN Constipation Brimonidine Tartrate 1 drop 09/08/17 06:00 09/09/17 05:04 Brimonidine 0.2% 5ml Bottle EACH EYE 1 drop BID [facility] Administration Calamine/Phenol 1 applic 09/07/17 22:00 09/09/17 05:06 Calmoseptine Ointment TOPICAL 1 applic TID [facility] Administration Protocol Clopidogrel Bisulfate 75 mg 09/08/17 06:00 09/09/17 08:44 Plavix PO Not Given DAILY [facility] Emollient Ointment 1 applic 09/07/17 22:00 09/09/17 05:06 Eucerin Intensive Repair TOPICAL 1 applicatio 0600,2200 [facility] Administration Protocol Enoxaparin Sodium 40 mg 09/08/17 06:00 09/09/17 08:42 Lovenox SC Not Given DAILY@0600 [facility] Ergocalciferol 50,000 unit 09/10/17 06:00 Vitamin D PO Fr@0600 [facility] Gabapentin 600 mg 09/08/17 06:00 09/09/17 07:57 Neurontin PO 600 mg DAILY@0800 [facility] Administration Gabapentin 1,600 mg 09/07/17 22:00 09/08/17 21:39 Neurontin PO 1,600 mg QHS [facility] Administration Heparin Sodium (Beef Lung) 500 unit 09/08/17 04:24 Heparin 500 Unit/5 Ml (100/Ml) IV UD PRN HEPARIN FLUSH Meropenem 500 mg/ Sodium 60 mls @ 100 mls/hr 09/07/17 22:00 09/09/17 05:07 Chloride IV 100 mls/hr Q8 [facility] Administration Insulin Human Regular 0.32 ml 09/09/17 07:00 09/09/17 08:44 Humulin R U-500 (Bkc) SC Not Given BREAKFAST@0700 [facility] Insulin Human Regular 0.21 ml 09/09/17 11:00 Humulin R U-500 (Bkc) SC LUNCH@1100 [facility] Insulin Human Regular 0.21 ml 09/09/17 17:00 Humulin R U-500 (Bkc) SC DINNER@1700 [facility] Latanoprost 1 drop 09/07/17 22:00 09/08/17 21:39 Xalatan Opthalmic EACH EYE 1 drop QHS [facility] Administration Losartan Potassium 50 mg 09/08/17 06:00 09/09/17 05:06 Cozaar PO 50 mg DAILY [facility] Administration Nebivolol 10 mg 09/08/17 06:00 09/09/17 05:06 Bystolic PO 10 mg DAILY [facility] Administration Nutritional Formula 1 packet 09/08/17 08:00 09/09/17 07:54 Madhu - [place] Flavor PO 1 packet BIDCM ARTHUR Administration Nutritional Formula (Lactose Free) 120 ml 09/08/17 06:00 09/09/17 08:45 Glucerna Shake PO Not Given 4X/DAY [facility] Nystatin 1 applic 09/07/17 22:00 09/09/17 05:07 Mycostatin Powder TOPICAL 1 applicatio 0600,2200 [facility] Administration Protocol Oxycodone HCl 5 mg 09/07/17 20:25 Oxyir PO Q4H PRN PRN MODERATE PAIN (4-5/10) Pantoprazole Sodium 40 mg 09/08/17 06:00 09/09/17 05:07 Protonix PO 40 mg DAILY [facility] Administration Polyethylene Glycol 17 gm 09/08/17 06:00 09/09/17 05:07 Miralax PO Not Given DAILY [facility] Senna/Docusate Sodium 2 tablet 09/08/17 06:00 09/09/17 05:07 Senokot-S, Martha-Colace PO Not Given BID [facility] Sodium Chloride 10 - 20 ml 09/08/17 04:24 09/09/17 05:03 IV 20 ml UD PRN Administration PICC FLUSH Tuberculin PPD 5 tu 09/15/17 10:00 Tubersol, Aplisol, Ppd ID 09/15/17 10:01 X1 ONE Problem List Diabetes mellitus (Chronic) Morbid obesity (Chronic) Venous stasis dermatitis (Chronic) PAOD (peripheral arterial occlusive disease) (Chronic) Neuropathic pain (Chronic) DVT (deep venous thrombosis) (Chronic) Vital Signs Temp Pulse Resp BP Pulse Ox 97.1 F L 79 18 127/50 H 95 09/08/17 15:45 09/08/17 15:45 09/08/17 15:45 09/08/17 15:45 09/08/17 15:45 Oxygen Delivery Method Nasal Cannula Weight: 136.758 kg Body Mass Index (BMI) 48.5 Finger Stick Blood Glucose 278 Sodium 141 mmol/L (136-145) 09/08/17 05:30 Potassium 4.7 mmol/L (3.5-5.1) 09/08/17 05:30 Chloride 105 mmol/L (98-107) 09/08/17 05:30 Carbon Dioxide 29.0 mmol/L (21.0-32.0) 09/08/17 05:30 Anion Gap 7 (5-15) 09/08/17 05:30 BUN 42 mg/dL (7-18) H 09/08/17 05:30 Creatinine 1.72 mg/dL (0.70-1.30) H 09/08/17 05:30 Est GFR (MDRD) Af Amer 53 mL/min (>60) L 09/08/17 05:30 Est GFR (MDRD) Non-Af 43 mL/min (>60) L 09/08/17 05:30 BUN/Creatinine Ratio 24.4 RATIO (10-20) H 09/08/17 05:30 Glucose 132 mg/dL (74-106) H 09/08/17 05:30 Assessment/Plan: 1) Pain APAP for mild pain, oxycodone for moderate pain, gabapentin. Continue to monitor prn medication use, daily pain scores. 2) DM2 Insulin u-500 3x/day. BGT in low 200s. Continue to monitor BGT, s/s hyper/ hypoglycemia. 3) HTN Losartan, nebivolol. BP/HR within goal ranges, BUN/SCr at baseline, K wnl. Continue to monitor BP/HR, renal function, electrolytes. 4) CV PPx Clopidogrel daily. Continue to monitor for chest pain. 5) HLD Atorvastatin at HS. Lipids at goal, hepatic enzymes wnl. Continue to monitor lipids, enzymes. * 6) ID Meropenem 3x daily. Stop date per ID is 09/14/17, please add stop date to order. Continue to monitor s/s infection. 7) GI Pantoprazole daily. Continue to monitor for s/s GI distress. 8) Nutrition Glucerna, Madhu, ergocalciferol. Continue to monitor clinically. 9) Derm Calmoseptine, nystatin powder, emollient topically. Continue to monitor clinically. 10) Glaucoma Latanoprost, brimonidine. Continue to monitor clinically. 11) DVT PPx Enoxaparin daily. Continue to monitor s/s bleeding/clot. Psychotropic Medications: None Unnecessary Medications: None Bowel Regimen: 12) Senna/s, PEG, prn bisacodyl. Continue to monitor prn medication use, for constipation/diarrhea. Date of Note:: 09/09/17 - Provider Comments Provider responsibility: Provider responsible to enter orders to implement recommendations <Arnie Bullock Chi - Last Filed: 09/09/17 17:43> Progress Note - Pharmacy Subjective: [] Objective: Allergies bee venom protein (honey bee) Allergy (Verified 09/09/17 08:38) Swelling metronidazole [From Flagyl] Allergy (Verified 09/09/17 08:38) Itching Home Medications Medication Instructions Recorded Atorvastatin Calcium [Lipitor] 10 mg PO QHS 01/08/17 Brimonidine Tartrate 0.2% 1 drop EACH EYE BID 01/08/17 [Brimonidine 0.2% 5Ml Bottle] Ergocalciferol [Vitamin D] 50,000 unit PO FR 01/08/17 Gabapentin [Neurontin] 1,600 mg PO QHS 01/08/17 Gabapentin [Neurontin] 600 mg PO DAILY 01/08/17 Insulin U-500 [Humulin R U-500 105 units SC DINNER 01/08/17 ([facility])] Insulin U-500 [Humulin R U-500 105 units SC LUNCH 01/08/17 ([facility])] Insulin U-500 [Humulin R U-500 160 units SC BREAKFAST 01/08/17 ([facility])] Latanoprost 0.005% [Xalatan 1 drop EACH EYE QHS 01/08/17 Opthalmic] Losartan Potassium [Cozaar] 50 mg PO DAILY 01/08/17 Nebivolol HCl [Bystolic (Beta 10 mg PO DAILY 01/08/17 Akira)] Omeprazole [Prilosec] 40 mg PO DAILY 01/08/17 Acetaminophen [Tylenol Tablet] 650 mg PO Q6H PRN PRN tablet 09/07/17 Clopidogrel Bisulfate [Plavix] 75 mg PO DAILY 09/07/17 Hydrocodone Bitart/Apap 5-325 1 - 2 tab PO Q4H PRN PRN #10 tab 09/07/17 [[place] 5/325] Meropenem [Merrem] 500 mg IV Q8 09/07/17 Current Medications Generic Name Dose Route Start Last Admin Trade Name Freq PRN Reason Stop Dose Admin Acetaminophen 1,000 mg 09/07/17 20:27 Tylenol PO Q8H PRN PRN MILD PAIN (1-08/14) Atorvastatin Calcium 40 mg 09/07/17 22:00 09/08/17 21:39 Lipitor PO 40 mg QHS [facility] Administration Bisacodyl 10 mg 09/07/17 20:26 Dulcolax RECTAL DAILY PRN Constipation Brimonidine Tartrate 1 drop 09/08/17 06:00 09/09/17 17:27 Brimonidine 0.2% 5ml Bottle EACH EYE 1 drop BID [facility] Administration Calamine/Phenol 1 applic 09/07/17 22:00 09/09/17 15:07 Calmoseptine Ointment TOPICAL Not Given TID [facility] Protocol Clopidogrel Bisulfate 75 mg 09/08/17 06:00 09/09/17 08:44 Plavix PO Not Given DAILY [facility] Emollient Ointment 1 applic 09/07/17 22:00 09/09/17 05:06 Eucerin Intensive Repair TOPICAL 1 applicatio 0600,2200 [facility] Administration Protocol Enoxaparin Sodium 40 mg 09/08/17 06:00 09/09/17 08:42 Lovenox SC Not Given DAILY@0600 [facility] Ergocalciferol 50,000 unit 09/10/17 06:00 Vitamin D PO Fr@0600 [facility] Gabapentin 600 mg 09/08/17 06:00 09/09/17 07:57 Neurontin PO 600 mg DAILY@0800 [facility] Administration Gabapentin 1,600 mg 09/07/17 22:00 09/08/17 21:39 Neurontin PO 1,600 mg QHS [facility] Administration Heparin Sodium (Beef Lung) 500 unit 09/08/17 04:24 Heparin 500 Unit/5 Ml (100/Ml) IV UD PRN HEPARIN FLUSH Meropenem 500 mg/ Sodium 60 mls @ 100 mls/hr 09/07/17 22:00 09/09/17 14:58 Chloride IV 100 mls/hr Q8 [facility] Administration Insulin Human Regular 0.32 ml 09/09/17 07:00 09/09/17 08:44 Humulin R U-500 (Bkc) SC Not Given BREAKFAST@0700 [facility] Insulin Human Regular 0.21 ml 09/09/17 11:00 09/09/17 11:15 Humulin R U-500 ([facility]) SC 105 units LUNCH@1100 [facility] Administration Insulin Human Regular 0.21 ml 09/09/17 17:00 09/09/17 17:25 Humulin R U-500 ([facility]) SC 105 units DINNER@1700 [facility] Administration Latanoprost 1 drop 09/07/17 22:00 09/08/17 21:39 Xalatan Opthalmic EACH EYE 1 drop QHS [facility] Administration Losartan Potassium 50 mg 09/08/17 06:00 09/09/17 05:06 Cozaar PO 50 mg DAILY [facility] Administration Nebivolol 10 mg 09/08/17 06:00 09/09/17 05:06 Bystolic PO 10 mg DAILY [facility] Administration Nutritional Formula 1 packet 09/08/17 08:00 09/09/17 17:28 Madhu - [place] Flavor PO 1 packet BIDCM [facility] Administration Nutritional Formula (Lactose Free) 120 ml 09/08/17 06:00 09/09/17 17:26 Glucerna Shake PO 120 ml 4X/DAY [facility] Administration Nystatin 1 applic 09/07/17 22:00 09/09/17 05:07 Mycostatin Powder TOPICAL 1 applicatio 0600,2200 [facility] Administration Protocol Oxycodone HCl 5 mg 09/07/17 20:25 Oxyir PO Q4H PRN PRN MODERATE PAIN (4-5/10) Pantoprazole Sodium 40 mg 09/08/17 06:00 09/09/17 05:07 Protonix PO 40 mg DAILY [facility]UR Administration Polyethylene Glycol 17 gm 09/08/17 06:00 09/09/17 05:07 Miralax PO Not Given DAILY [facility] Senna/Docusate Sodium 2 tablet 09/08/17 06:00 09/09/17 17:27 Senokot-S, Martha-Colace PO Not Given BID [facility] Sodium Chloride 10 - 20 ml 09/08/17 04:24 09/09/17 14:58 IV 10 ml UD PRN Administration PICC FLUSH Sodium Chloride 250 ml 09/09/17 15:11 09/09/17 15:15 IV 250 ml PRN PRN Administration IV antibiotic Tuberculin PPD 5 tu 09/15/17 10:00 Tubersol, Aplisol, Ppd ID 09/15/17 10:01 X1 ONE Problem List Diabetes mellitus (Chronic) Morbid obesity (Chronic) Venous stasis dermatitis (Chronic) PAOD (peripheral arterial occlusive disease) (Chronic) Neuropathic pain (Chronic) DVT (deep venous thrombosis) (Chronic) Vital Signs Temp Pulse Resp BP Pulse Ox 96.6 F L 80 20 H 156/59 H 98 09/09/17 13:56 09/09/17 13:56 09/09/17 13:56 09/09/17 13:56 09/09/17 14:00 Oxygen Delivery Method Room Air Weight: 136.758 kg Body Mass Index (BMI) 48.5 Finger Stick Blood Glucose 278 Sodium 141 mmol/L (136-145) 09/08/17 05:30 Potassium 4.7 mmol/L (3.5-5.1) 09/08/17 05:30 Chloride 105 mmol/L (98-107) 09/08/17 05:30 Carbon Dioxide 29.0 mmol/L (21.0-32.0) 09/08/17 05:30 Anion Gap 7 (5-15) 09/08/17 05:30 BUN 42 mg/dL (7-18) H 09/08/17 05:30 Creatinine 1.72 mg/dL (0.70-1.30) H 09/08/17 05:30 Est GFR (MDRD) Af Amer 53 mL/min (>60) L 09/08/17 05:30 Est GFR (MDRD) Non-Af 43 mL/min (>60) L 09/08/17 05:30 BUN/Creatinine Ratio 24.4 RATIO (10-20) H 09/08/17 05:30 Glucose 132 mg/dL (74-106) H 09/08/17 05:30 Assessment/Plan: Psychotropic Medications: Unnecessary Medications: Bowel Regimen: - Provider Comments Provider responsibility: Provider responsible to enter orders to implement recommendations Provider Comments to Recommendations by Pharmacy: Agree
[2017-09-09 11:25] LABS: Bedside Glucose 216 mg/dL (70-110)
[2017-09-09 11:44] LABS: Pathologist Review Reviewed
[2017-09-09 13:56] VITALS: BP 156/59; PULSE 80; RESP 20; TEMP 35.9; O2SAT 97
[2017-09-09 14:00] VITALS: O2SAT 98
[2017-09-09] MEDS: 0.9% Normal Saline 250 ML IV.SOLN. IV (15:15)
[2017-09-09 17:01] LABS: Bedside Glucose 232 mg/dL (70-110)
[2017-09-09 17:05] LABS: Bedside Glucose 257 mg/dL (70-110)
[2017-09-09 21:00] VITALS: PULSE 78; RESP 16
[2017-09-09 21:00] LABS: Bedside Glucose 294 mg/dL (70-110)
[2017-09-09] MEDS: Latanoprost 0.005% 1 Bottle 1 DRP EACH EYE (21:00)
[2017-09-09] MEDS: Gabapentin 800 MG Tablet 1600 MG PO (21:01)
[2017-09-09] MEDS: Atorvastatin Calcium 40 MG Tablet PO (21:01)
[2017-09-10] MEDS: BRIMONIDINE 0.2% 5ML BOTTLE 1 DRP EACH EYE ×2 (05:38→18:01)
[2017-09-10] MEDS: Pantoprazole Sodium 40 MG Tablet PO (05:39)
[2017-09-10] MEDS: Losartan Potassium 50 MG Tablet PO (05:39)
[2017-09-10] MEDS: Nebivolol HCl 10 MG Tablet PO (05:39)
[2017-09-10] MEDS: Nystatin Powder 15gm Bottle 1 APPLIC TOPICAL ×2 (05:40→22:28)
[2017-09-10 06:45] LABS: Bedside Glucose 238 mg/dL (70-110)
[2017-09-10 08:03] VITALS: O2SAT 97
[2017-09-10] MEDS: Gabapentin 600 MG Tablet PO (09:26)
--- NOTE | 2017-09-10 11:32 | CASEMGMT ---
Insurance Clinical information sent. Pending continued stay approval at this time. Auth#[id number] Violeta PEREIRA, SPOUT POSITIONER
[2017-09-10 11:46] LABS: Bedside Glucose 259 mg/dL (70-110)
[2017-09-10] MEDS: Glucerna Shake 120 ML LIQUID PO ×3 (13:19→22:28)
[2017-09-10] MEDS: 0.9% NaCl PICC Flush IV ×3 (13:27→23:30)
[2017-09-10] MEDS: 0.9% Normal Saline 250 ML IV.SOLN. IV (13:28)
[2017-09-10 14:08] VITALS: BP 137/63; PULSE 78; RESP 18; TEMP 37; O2SAT 97
--- NOTE | 2017-09-10 16:43 | CASEMGMT ---
Insurance Continued stay approved. Next update due on 09/13/17 Auth#[id number] Violeta PEREIRA, HUMAN RESOURCES CLERK
[2017-09-10 17:01] LABS: Bedside Glucose 260 mg/dL (70-110)
[2017-09-10 21:21] LABS: Bedside Glucose 319 mg/dL (70-110)
[2017-09-10] MEDS: Atorvastatin Calcium 40 MG Tablet PO (22:25)
[2017-09-10] MEDS: Gabapentin 800 MG Tablet 1600 MG PO (22:25)
[2017-09-10] MEDS: Latanoprost 0.005% 1 Bottle 1 DRP EACH EYE (22:25)
[2017-09-11] MEDS: Glucerna Shake 120 ML LIQUID PO ×4 (05:31→21:37)
[2017-09-11] MEDS: BRIMONIDINE 0.2% 5ML BOTTLE 1 DRP EACH EYE ×2 (05:32→17:04)
[2017-09-11] MEDS: Nebivolol HCl 10 MG Tablet PO (05:33)
[2017-09-11] MEDS: Pantoprazole Sodium 40 MG Tablet PO (05:33)
[2017-09-11] MEDS: Enoxaparin 40 MG/0.4 ML Syringe SC (05:33)
[2017-09-11] MEDS: Clopidogrel Bisulfate 75 MG Tablet PO (05:34)
[2017-09-11] MEDS: Losartan Potassium 50 MG Tablet PO (05:34)
[2017-09-11] MEDS: Nystatin Powder 15gm Bottle 1 APPLIC TOPICAL ×2 (05:36→21:54)
[2017-09-11] MEDS: 0.9% NaCl PICC Flush IV ×4 (05:38→21:38)
[2017-09-11 07:01] LABS: Bedside Glucose 239 mg/dL (70-110)
[2017-09-11 07:30] VITALS: O2SAT 98
[2017-09-11] MEDS: Gabapentin 600 MG Tablet PO (08:29)
[2017-09-11 11:40] LABS: Bedside Glucose 259 mg/dL (70-110)
--- NOTE | 2017-09-11 14:14 | NURSING ---
R' STATES DR. TEJADA STATED THAT FLUID RESTRICTION COULD BE D/C'D. VERIFIED WITH DR. TEJADA. OK TO DC FR.
[2017-09-11 16:00] VITALS: BP 157/69; PULSE 80; RESP 18; TEMP 36.2; O2SAT 97
[2017-09-11 16:51] LABS: Bedside Glucose 272 mg/dL (70-110)
[2017-09-11 21:31] LABS: Bedside Glucose 247 mg/dL (70-110)
[2017-09-11] MEDS: 0.9% Normal Saline 250 ML IV.SOLN. IV (21:50)
[2017-09-11] MEDS: Atorvastatin Calcium 40 MG Tablet PO (21:51)
[2017-09-11] MEDS: Gabapentin 800 MG Tablet 1600 MG PO (21:52)
[2017-09-11] MEDS: Latanoprost 0.005% 1 Bottle 1 DRP EACH EYE (21:53)
[2017-09-12 05:04] VITALS: BP 156/72; PULSE 79
[2017-09-12] MEDS: Enoxaparin 40 MG/0.4 ML Syringe SC (05:07)
[2017-09-12] MEDS: Glucerna Shake 120 ML LIQUID PO ×4 (05:07→21:44)
[2017-09-12] MEDS: Nebivolol HCl 10 MG Tablet PO (05:07)
[2017-09-12] MEDS: Clopidogrel Bisulfate 75 MG Tablet PO (05:07)
[2017-09-12] MEDS: Pantoprazole Sodium 40 MG Tablet PO (05:07)
[2017-09-12] MEDS: Losartan Potassium 50 MG Tablet PO (05:07)
[2017-09-12] MEDS: BRIMONIDINE 0.2% 5ML BOTTLE 1 DRP EACH EYE ×2 (05:09→17:27)
[2017-09-12] MEDS: 0.9% NaCl PICC Flush IV ×2 (05:12→21:47)
[2017-09-12] MEDS: Nystatin Powder 15gm Bottle 1 APPLIC TOPICAL ×2 (05:12→21:43)
[2017-09-12 06:51] LABS: Bedside Glucose 194 mg/dL (70-110)
[2017-09-12] MEDS: Gabapentin 600 MG Tablet PO (08:07)
[2017-09-12 11:16] LABS: Bedside Glucose 178 mg/dL (70-110)
[2017-09-12] MEDS: Menthol/Lanolin/Calamine/Znox 113 GM Tube 1 APPLIC TOPICAL (13:14)
[2017-09-12] MEDS: 0.9% Normal Saline 250 ML IV.SOLN. IV ×2 (13:18→21:37)
[2017-09-12 15:50] VITALS: BP 153/69; PULSE 77; RESP 18; TEMP 36.6; O2SAT 98
[2017-09-12 16:45] LABS: Bedside Glucose 270 mg/dL (70-110)
[2017-09-12 21:21] LABS: Bedside Glucose 336 mg/dL (70-110)
[2017-09-12] MEDS: Gabapentin 800 MG Tablet 1600 MG PO (21:45)
[2017-09-12] MEDS: Latanoprost 0.005% 1 Bottle 1 DRP EACH EYE (21:45)
[2017-09-12] MEDS: Atorvastatin Calcium 40 MG Tablet PO (21:45)
[2017-09-13] MEDS: Glucerna Shake 120 ML LIQUID PO ×4 (05:21→21:34)
[2017-09-13] MEDS: Clopidogrel Bisulfate 75 MG Tablet PO (05:21)
[2017-09-13] MEDS: Nebivolol HCl 10 MG Tablet PO (05:21)
[2017-09-13] MEDS: Pantoprazole Sodium 40 MG Tablet PO (05:21)
[2017-09-13] MEDS: Enoxaparin 40 MG/0.4 ML Syringe SC (05:21)
[2017-09-13] MEDS: Losartan Potassium 50 MG Tablet PO (05:21)
[2017-09-13] MEDS: 0.9% NaCl PICC Flush IV ×3 (05:24→21:30)
[2017-09-13] MEDS: BRIMONIDINE 0.2% 5ML BOTTLE 1 DRP EACH EYE ×2 (05:28→17:22)
[2017-09-13] MEDS: Nystatin Powder 15gm Bottle 1 APPLIC TOPICAL ×2 (05:29→21:39)
[2017-09-13 05:30] VITALS: BP 153/65; PULSE 77
[2017-09-13 06:40] LABS: Bedside Glucose 258 mg/dL (70-110)
[2017-09-13] MEDS: Gabapentin 600 MG Tablet PO (07:55)
--- NOTE | 2017-09-13 10:22 | NURSING ---
wound photo: right medial heel
--- NOTE | 2017-09-13 10:22 | NURSING ---
wound photo: right foot/toes
--- NOTE | 2017-09-13 10:23 | NURSING ---
wound photo: right lateral lower leg
[2017-09-13 11:41] LABS: Bedside Glucose 336 mg/dL (70-110)
--- NOTE | 2017-09-13 13:46 | CASEMGMT ---
Insurance Clinicals sent, pending continued stay approval at this time. Auth#[id number] Violeta PEREIRA, AGENCY CASHIER
[2017-09-13 15:40] VITALS: BP 126/49; PULSE 84; RESP 18; TEMP 36.2; O2SAT 95
[2017-09-13 16:56] LABS: Bedside Glucose 345 mg/dL (70-110)
--- NOTE | 2017-09-13 17:59 | NURSING ---
blood sugar 345 tonight, Dr Bullock notified, insulin adjusted.
--- NOTE | 2017-09-13 19:50 | NURSING ---
Dr Lux called and she clarified medication orders for patient's morning medications prior to procedure tomorrow. Patient is to take Losartan, Bystolic, and Protonix in Am. All other medications should not be given. Dr. Lux states that she thinks patient's wound debridement is either at 1300 or 1500. Patient should be NPO according to hospital guidelines which is [address] Lux states that she will check in the morning what time for sure patient's procedure is and let us know tomorrow morning. If patient's surgery is at 1500 patient would be allowed to eat breakfast and morning dose of Humulin should be given. Patient to be NPO after midnight until Dr. Lux confirms when procedure is tomorrow. Patient and nursing staff aware.
[2017-09-13 21:20] LABS: Bedside Glucose 311 mg/dL (70-110)
[2017-09-13] MEDS: 0.9% Normal Saline 250 ML IV.SOLN. IV (21:26)
[2017-09-13] MEDS: Latanoprost 0.005% 1 Bottle 1 DRP EACH EYE (21:34)
[2017-09-13] MEDS: Gabapentin 800 MG Tablet 1600 MG PO (21:35)
[2017-09-13] MEDS: Atorvastatin Calcium 40 MG Tablet PO (21:35)
[2017-09-14] MEDS: Nebivolol HCl 10 MG Tablet PO (05:13)
[2017-09-14] MEDS: Losartan Potassium 50 MG Tablet PO (05:13)
[2017-09-14] MEDS: Pantoprazole Sodium 40 MG Tablet PO (05:13)
[2017-09-14] MEDS: BRIMONIDINE 0.2% 5ML BOTTLE 1 DRP EACH EYE ×2 (05:13→16:56)
[2017-09-14] MEDS: 0.9% NaCl PICC Flush IV ×3 (05:15→21:45)
[2017-09-14 05:16] VITALS: BP 148/71; PULSE 79
[2017-09-14 05:28] LABS: Absolute Lymphocyte Count 1.26 X10^3/ul (0.83-4.51); Basophil# 0.02 X10^3/uL; Basophil% 0.3 % (0-1); Eosinophils% 4.9 % (0-5); Hematocrit 28.1 % (40-54); Hemoglobin 8.8 g/dl (13.0-16.5); Lymphocyte # 1.26 X10^3/ul (4.0); Lymphocyte % 20.6 % (19-41); Mean Corp Hgb Conc 31.3 g/gl (32-36); Mean Corpuscular Volume 86.2 fL (80-94); Mean Platelet Vol. 10.2 fl (6.2-12.0); Monocyte# 0.51 X10^3/uL; Monocyte% 8.3 % (0-10); Neutrophil # 4.01 X10^3/uL (2.7-7.7); Neutrophil % 65.6 % (47-70); Platelet Count 140 K/mm3 (150-450); RBC Distribution Width CV 15.9 % (11.6-14.6); RBC Distribution Width SD 49.9 fl (35.1-43.9); Red Blood Count 3.26 M/mm3 (4.6-6.2); White Blood Count 6.1 K/mm3 (4.4-11.0)
[2017-09-14 05:29] LABS: POSITIVE COUNT NO; POSITIVE DIFFERENTIAL NO; POSITIVE MORPHOLOGY NO
[2017-09-14 05:57] LABS: Anion Gap 7 (5-15); BUN 55 mg/dL (7-18); BUN/Creat Ratio 29.7 RATIO (10-20); Calcium,Total 8.6 mg/dL (8.5-10.1); Chloride 102 mmol/L (98-107); Creatinine, Serum 1.85 mg/dL (0.70-1.30); EST Glomerular Filtration Rate 40 mL/min (>60); Est Glom Filt Rate - Afr Amer 48 mL/min (>60); Glucose 281 mg/dL (74-106); Potassium 5.2 mmol/L (3.5-5.1); Sodium Level 138 mmol/L (136-145)
[2017-09-14 06:56] LABS: Bedside Glucose 249 mg/dL (70-110)
--- NOTE | 2017-09-14 07:44 | NURSING ---
Dr Lux returned phone call to unit. Pt may consume a light breakfast this AM by 0830. Dr Lux update on AM blood sugar 249. Per Emily, if pt consumes light breakfast provided Humulin R 100units. MONICO Pitts updated.
[2017-09-14 11:21] LABS: Bedside Glucose 260 mg/dL (70-110)
--- NOTE | 2017-09-14 12:16 | NURSING ---
Dr Bullock notified of pt potassium level 5.2, new order to give kaexylate x1 after return from surgery on heel and repeat BMP in AM
--- NOTE | 2017-09-14 13:59 | NURSING ---
pt off unit to surgery via bed at this time
--- NOTE | 2017-09-14 14:19 | CASEMGMT ---
Brief interview for mental status (BIMS) and resident mood interview (PHQ-9) completed on this day. BIMS score 13/15. PHQ-9 score 08/31
--- NOTE | 2017-09-14 14:46 | MDS.RN ---
Off unit for surgery, staff assessment for pain completed.
[2017-09-14] MEDS: Sodium Polystyrene Sulfonate 15 GM/60 ML UDC PO (16:55)
[2017-09-14 16:57] VITALS: BP 158/72; PULSE 76; RESP 18; TEMP 36.3; O2SAT 92
[2017-09-14 21:06] LABS: Bedside Glucose 308 mg/dL (70-110)
[2017-09-14] MEDS: Atorvastatin Calcium 40 MG Tablet PO (21:48)
[2017-09-14] MEDS: Gabapentin 600 MG Tablet PO (21:48)
[2017-09-14] MEDS: Gabapentin 800 MG Tablet 1600 MG PO (21:48)
[2017-09-14] MEDS: Nystatin Powder 15gm Bottle 1 APPLIC TOPICAL (21:49)
[2017-09-14] MEDS: Menthol/Lanolin/Calamine/Znox 113 GM Tube 1 APPLIC TOPICAL (21:49)
[2017-09-14] MEDS: Latanoprost 0.005% 1 Bottle 1 DRP EACH EYE (21:49)
[2017-09-14] MEDS: Glucerna Shake 120 ML LIQUID PO (22:02)
[2017-09-15] MEDS: 0.9% NaCl PICC Flush IV ×3 (06:05→21:32)
[2017-09-15] MEDS: Losartan Potassium 50 MG Tablet PO (06:21)
[2017-09-15] MEDS: Pantoprazole Sodium 40 MG Tablet PO (06:21)
[2017-09-15] MEDS: Nebivolol HCl 10 MG Tablet PO (06:21)
[2017-09-15] MEDS: BRIMONIDINE 0.2% 5ML BOTTLE 1 DRP EACH EYE ×2 (06:21→17:48)
[2017-09-15] MEDS: Glucerna Shake 120 ML LIQUID PO ×4 (06:22→21:30)
[2017-09-15] MEDS: Clopidogrel Bisulfate 75 MG Tablet PO (06:22)
[2017-09-15] MEDS: Enoxaparin 40 MG/0.4 ML Syringe SC (06:22)
[2017-09-15] MEDS: Menthol/Lanolin/Calamine/Znox 113 GM Tube 1 APPLIC TOPICAL ×3 (06:26→21:30)
[2017-09-15] MEDS: Nystatin Powder 15gm Bottle 1 APPLIC TOPICAL ×2 (06:26→21:32)
[2017-09-15 06:45] LABS: Bedside Glucose 381 mg/dL (70-110)
[2017-09-15 07:05] LABS: Anion Gap 7 (5-15); BUN 53 mg/dL (7-18); BUN/Creat Ratio 30.3 RATIO (10-20); Calcium,Total 8.5 mg/dL (8.5-10.1); Chloride 103 mmol/L (98-107); Creatinine, Serum 1.75 mg/dL (0.70-1.30); EST Glomerular Filtration Rate 43 mL/min (>60); Est Glom Filt Rate - Afr Amer 52 mL/min (>60); Estimated Creatinine Clearance 42.49 ml/min; Glucose 312 mg/dL (74-106); Potassium 5.1 mmol/L (3.5-5.1); Sodium Level 138 mmol/L (136-145)
--- NOTE | 2017-09-15 08:41 | CASEMGMT ---
Insurance Continued stay approved with next update due on 09/20/17 Auth#[id number] Violeta PEREIRA, ASSISTANT COMMISSIONER
[2017-09-15] MEDS: Tuberculin,Purif.prot.deriv. 50 TU/ML Vial 5 ML ID (09:52)
--- NOTE | 2017-09-15 10:50 | CASEMGMT ---
Plan of care meeting held. Resident present [facility] well [facility] No discharge date set at this time. Resident to continue with further care and treatment on the Transitional Care Unit. Resident plans to discharge home alone at time of discharge. Resident has an insurance update due on 09/20/17, resident aware that continued stay approval is not guaranteed. Resident is active with the waiver program and is reporting that welfare case worker is Joyce Esparza in [facility]. Support given. Will continue to follow. Violeta PEREIRA, TOP LIFT COMPRESSER
[2017-09-15 11:31] LABS: Bedside Glucose 374 mg/dL (70-110)
[2017-09-15 15:58] VITALS: BP 163/66; PULSE 86; RESP 18; TEMP 36.6; O2SAT 96
[2017-09-15 17:06] LABS: Bedside Glucose 337 mg/dL (70-110)
[2017-09-15 21:06] LABS: Bedside Glucose 319 mg/dL (70-110)
[2017-09-15] MEDS: Latanoprost 0.005% 1 Bottle 1 DRP EACH EYE (21:32)
[2017-09-15] MEDS: Gabapentin 800 MG Tablet 1600 MG PO (21:32)
[2017-09-15] MEDS: Atorvastatin Calcium 40 MG Tablet PO (21:32)
[2017-09-15 21:40] VITALS: PULSE 82; O2SAT 97
[2017-09-16] MEDS: BRIMONIDINE 0.2% 5ML BOTTLE 1 DRP EACH EYE ×2 (05:51→17:09)
[2017-09-16] MEDS: Nebivolol HCl 10 MG Tablet PO (05:51)
[2017-09-16] MEDS: Menthol/Lanolin/Calamine/Znox 113 GM Tube 1 APPLIC TOPICAL ×2 (05:51→21:46)
[2017-09-16] MEDS: Clopidogrel Bisulfate 75 MG Tablet PO (05:52)
[2017-09-16] MEDS: Pantoprazole Sodium 40 MG Tablet PO (05:52)
[2017-09-16] MEDS: Losartan Potassium 50 MG Tablet PO (05:52)
[2017-09-16] MEDS: Nystatin Powder 15gm Bottle 1 APPLIC TOPICAL ×2 (05:52→21:47)
[2017-09-16] MEDS: Glucerna Shake 120 ML LIQUID PO ×4 (05:52→21:55)
[2017-09-16] MEDS: Enoxaparin 40 MG/0.4 ML Syringe SC (05:52)
[2017-09-16 06:46] LABS: Bedside Glucose 137 mg/dL (70-110)
[2017-09-16] MEDS: Gabapentin 600 MG Tablet PO (07:50)
[2017-09-16 10:56] LABS: Bedside Glucose 241 mg/dL (70-110)
--- NOTE | 2017-09-16 13:38 | CASEMGMT ---
Social Work Therapy reporting that resident will need a sliding board at time of discharge. Resident reporting to have limited ability to private pay for sliding board, will inquire with [employer] and [employer] on coverage options. Telephone call to [facility] #9 - [phone]. Resident case managers is poncho [place] inquiring about aide services as well as establishing a sliding board for resident at time of discharge. Telephone call to [facility] Lindsey. Inquired about [place] or Medicaid, resident insurance covering the sliding board. Lindsey reporting that sliding board could be covered under resident medicaid and that an order would need to be faxed along with measurements of the sliding board. Thanked Lindsey and plan to set up sliding board at time of discharge date being set. Will continue to follow. Violeta PEREIRA, MILLING/POLISHING OPERATOR
[2017-09-16 15:54] VITALS: BP 135/59; PULSE 82; RESP 18; TEMP 36.4; O2SAT 94
[2017-09-16 16:51] LABS: Bedside Glucose 211 mg/dL (70-110)
[2017-09-16 21:11] LABS: Bedside Glucose 237 mg/dL (70-110)
[2017-09-16] MEDS: Atorvastatin Calcium 40 MG Tablet PO (21:46)
[2017-09-16] MEDS: Gabapentin 800 MG Tablet 1600 MG PO (21:46)
[2017-09-16] MEDS: Latanoprost 0.005% 1 Bottle 1 DRP EACH EYE (21:46)
[2017-09-17] MEDS: Losartan Potassium 50 MG Tablet PO (05:40)
[2017-09-17] MEDS: Enoxaparin 40 MG/0.4 ML Syringe SC (05:41)
[2017-09-17] MEDS: Nebivolol HCl 10 MG Tablet PO (05:41)
[2017-09-17] MEDS: Pantoprazole Sodium 40 MG Tablet PO (05:41)
[2017-09-17] MEDS: Clopidogrel Bisulfate 75 MG Tablet PO (05:41)
[2017-09-17] MEDS: BRIMONIDINE 0.2% 5ML BOTTLE 1 DRP EACH EYE ×2 (05:42→17:45)
[2017-09-17] MEDS: Glucerna Shake 120 ML LIQUID PO ×4 (05:46→21:36)
[2017-09-17 06:50] LABS: Bedside Glucose 141 mg/dL (70-110)
[2017-09-17] MEDS: Gabapentin 600 MG Tablet PO (07:54)
[2017-09-17 11:31] LABS: Bedside Glucose 247 mg/dL (70-110)
--- NOTE | 2017-09-17 12:00 | CASEMGMT ---
Social Work Telephone call from Joyce Esparza at [facility] region #9. Joyce reporting that resident is not currently active with the waiver program due to some complications with resident medicaid. Joyce reporting that there was a misunderstanding and that resident now does not have any complications with the medicaid and that resident is being resubmitted for the waiver program and that Joyce is pending receiving approval. Will continue to follow. Violeta PEREIRA, AMMUNITION ASSEMBLY I LABORER
[2017-09-17 15:50] VITALS: BP 136/66; PULSE 83; RESP 18; TEMP 36.9; O2SAT 96
[2017-09-17 17:10] LABS: Bedside Glucose 280 mg/dL (70-110)
--- NOTE | 2017-09-17 17:55 | NURSING ---
removed dressing from picc line insertion site. cleansed area with ns and applied dry, sterile gauze to site. no s/sx of infection or active drainage.
--- NOTE | 2017-09-17 19:45 | PN_ITS ---
Patient Problems: Active and Suspected Problems Right foot infection (Acute) Subjective: This 57 year old male with multiple comorbidities was seen bedside POD #3 right heel ulcer debridement with application of advanced wound care products derived from amnionic cord cell and wound vac with additional debridement of toe and leg ulcers of the right lower extremity. He denies pain, fever, chills, nausea, vomiting, loss of appetite, calf pain. He is resting with his leg elevated at the time of the exam. His wound vac remains intact. - Physical Exam General: Alert, Oriented x3, Cooperative Extremities: No cyanosis, Capillary Refill Less than 3 Seconds, No Calf Tenderness - negative suzanne and bean right lower extremity, Diminished Peripheral Pulses, Edema - right lower extremity moderate with significant reduction compared to the outpatient setting., - - left below knee amputation Skin: Ulcer/ Wound - wound vac in place without leak or evidence of perisite maceration; remains with green light demonstrating proper function. the adaptic is still in place to the toe ulcer sites. and there is progressive epithelialization to the posterior right leg ulcer. no erythema, no streaking, no odor, no fluctuance on palpation, no acute signs of infection noted right lower extremity Musculoskeletal: No Tenderness to Palpation of Joints or Extremities, Muscle Wasting Neurological: - - lack of epicritic sensation via light touch right lower extremity Psych/Mental Status: Normal Affect, Appropriate Vital Signs Temp Pulse Resp BP Pulse Ox 98.5 F 83 18 136/66 H 96 09/17/17 15:50 09/17/17 15:50 09/17/17 15:50 09/17/17 15:50 09/17/17 15:50 Oxygen Delivery Method Room Air Weight: 134.887 kg Body Mass Index (BMI) 48.5 Finger Stick Blood Glucose 278 Intake and Output for Last 24 Hours 09/15/17 09/16/17 09/17/17 23:59 23:59 23:59 Intake Total 700 / 700 960 / 960 1560 / 1560 Output Total 825 / 825 400 / 400 Balance -125 / -125 560 / 560 1560 / 1560 POC Glucose 09/17/17 09/17/17 09/17/17 16:59 11:23 06:42 POC Glucose 280 H 247 H 141 H 09/16/17 21:07 POC Glucose 237 H Medical Necessity - Tobacco Use Smoking Status: Former smoker Tobacco Use: Non-smoker Assessment/Plan Active and Suspected Problems Right foot infection (Acute) Right heel ulcer now POD #3 right heel ulcer debridement with application of advanced wound care products derived from amnionic cord cell and wound vac with additional debridement of toe and leg ulcers of the right lower extremity Osteomyelitis was ruled out with bone biopsy and there are no local signs of infection noted Edema and lymphedema bilateral lower extremities Diabetes with peripheral neuropathy Chronic kidney disease on hemodialysis Delayed healing Malnutrition Compliance challenges Other comorbidities I reviewed and discussed his case again today. His wound vac and adaptic/ advanced wound care products applied to the foot was left intact. The posterior right leg ulcer site was changed with adaptic and gauze. An additional kerlix and aislinn compression dressing was reapplied. He was reassured the vac was working well and there are no signs of infection. The wound vac will be changed and the applied amniofill with overlying epicord secured with sutures and adaptic will be evaluated early next week. This will likely be left in place and a new wound vac will be applied to allow incorporation for 2-3 weeks. His PICC line was removed yesterday. It is noted his bone biopsy was negative from a microbiology and pathology standpoint. To continue to optimize healing by remaining on weightbearing and elevating the limbs. To continue with compression dressings to control edema. To continue with nutritional supplementation, Madhu, to optimize healing. To continue proper glycemic control. It is noted his left stump ulcer site is recently healed. I recommend proceeding with shrinkage and prosthetic device via [employer]. Medical management and DVT prophylaxis per primary team is appreciated. He understands he is still at risk for limb loss and the initial goal of better controlling his wound viability and removing infection is going well. Rachele Lux, [facility] [phone]
[2017-09-17 21:36] LABS: Bedside Glucose 268 mg/dL (70-110)
[2017-09-17] MEDS: Atorvastatin Calcium 40 MG Tablet PO (21:36)
[2017-09-17] MEDS: Latanoprost 0.005% 1 Bottle 1 DRP EACH EYE (21:37)
[2017-09-17] MEDS: Gabapentin 800 MG Tablet 1600 MG PO (21:37)
[2017-09-17] MEDS: Nystatin Powder 15gm Bottle 1 APPLIC TOPICAL (21:39)
[2017-09-17] MEDS: Menthol/Lanolin/Calamine/Znox 113 GM Tube 1 APPLIC TOPICAL (21:40)
[2017-09-18] MEDS: Glucerna Shake 120 ML LIQUID PO ×4 (05:22→21:33)
[2017-09-18] MEDS: Enoxaparin 40 MG/0.4 ML Syringe SC (05:23)
[2017-09-18] MEDS: Clopidogrel Bisulfate 75 MG Tablet PO (05:23)
[2017-09-18] MEDS: Losartan Potassium 50 MG Tablet PO (05:23)
[2017-09-18] MEDS: Pantoprazole Sodium 40 MG Tablet PO (05:24)
[2017-09-18] MEDS: Nebivolol HCl 10 MG Tablet PO (05:24)
[2017-09-18] MEDS: BRIMONIDINE 0.2% 5ML BOTTLE 1 DRP EACH EYE ×2 (05:25→17:58)
[2017-09-18] MEDS: Menthol/Lanolin/Calamine/Znox 113 GM Tube 1 APPLIC TOPICAL ×2 (05:25→21:33)
[2017-09-18 05:26] VITALS: BP 168/52; PULSE 83
[2017-09-18] MEDS: Nystatin Powder 15gm Bottle 1 APPLIC TOPICAL ×2 (05:26→21:33)
[2017-09-18 07:11] LABS: Bedside Glucose 181 mg/dL (70-110)
[2017-09-18] MEDS: Gabapentin 600 MG Tablet PO (08:49)
[2017-09-18 11:36] LABS: Bedside Glucose 247 mg/dL (70-110)
[2017-09-18 15:23] VITALS: BP 147/64; PULSE 76; RESP 20; TEMP 36.3; O2SAT 95
[2017-09-18 16:41] LABS: Bedside Glucose 283 mg/dL (70-110)
[2017-09-18 21:01] LABS: Bedside Glucose 364 mg/dL (70-110)
[2017-09-18] MEDS: Atorvastatin Calcium 40 MG Tablet PO (21:34)
[2017-09-18] MEDS: Latanoprost 0.005% 1 Bottle 1 DRP EACH EYE (21:34)
[2017-09-18] MEDS: Gabapentin 800 MG Tablet 1600 MG PO (21:34)
[2017-09-19] MEDS: BRIMONIDINE 0.2% 5ML BOTTLE 1 DRP EACH EYE ×2 (05:33→17:00)
[2017-09-19] MEDS: Nebivolol HCl 10 MG Tablet PO (05:34)
[2017-09-19] MEDS: Nystatin Powder 15gm Bottle 1 APPLIC TOPICAL ×2 (05:34→21:16)
[2017-09-19] MEDS: Menthol/Lanolin/Calamine/Znox 113 GM Tube 1 APPLIC TOPICAL ×2 (05:34→21:15)
[2017-09-19] MEDS: Losartan Potassium 50 MG Tablet PO (05:34)
[2017-09-19] MEDS: Glucerna Shake 120 ML LIQUID PO ×4 (05:34→21:15)
[2017-09-19] MEDS: Enoxaparin 40 MG/0.4 ML Syringe SC (05:34)
[2017-09-19] MEDS: Pantoprazole Sodium 40 MG Tablet PO (05:35)
[2017-09-19] MEDS: Clopidogrel Bisulfate 75 MG Tablet PO (05:35)
[2017-09-19 07:10] LABS: Bedside Glucose 178 mg/dL (70-110)
[2017-09-19] MEDS: Gabapentin 600 MG Tablet PO (08:05)
[2017-09-19 10:00] VITALS: PULSE 76; RESP 16
[2017-09-19 11:11] LABS: Bedside Glucose 254 mg/dL (70-110)
[2017-09-19 15:11] VITALS: BP 120/42; PULSE 80; RESP 18; TEMP 35.9; O2SAT 96
[2017-09-19 17:15] LABS: Bedside Glucose 248 mg/dL (70-110)
[2017-09-19 20:55] LABS: Bedside Glucose 289 mg/dL (70-110)
[2017-09-19] MEDS: Gabapentin 800 MG Tablet 1600 MG PO (21:16)
[2017-09-19] MEDS: Atorvastatin Calcium 40 MG Tablet PO (21:16)
[2017-09-19] MEDS: Latanoprost 0.005% 1 Bottle 1 DRP EACH EYE (21:16)
[2017-09-20] MEDS: BRIMONIDINE 0.2% 5ML BOTTLE 1 DRP EACH EYE ×2 (05:14→18:29)
[2017-09-20] MEDS: Menthol/Lanolin/Calamine/Znox 113 GM Tube 1 APPLIC TOPICAL ×2 (05:15→20:39)
[2017-09-20] MEDS: Losartan Potassium 50 MG Tablet PO (05:15)
[2017-09-20] MEDS: Nebivolol HCl 10 MG Tablet PO (05:15)
[2017-09-20] MEDS: Glucerna Shake 120 ML LIQUID PO ×4 (05:15→20:35)
[2017-09-20] MEDS: Enoxaparin 40 MG/0.4 ML Syringe SC (05:15)
[2017-09-20] MEDS: Pantoprazole Sodium 40 MG Tablet PO (05:16)
[2017-09-20] MEDS: Nystatin Powder 15gm Bottle 1 APPLIC TOPICAL ×2 (05:16→20:41)
[2017-09-20] MEDS: Clopidogrel Bisulfate 75 MG Tablet PO (05:16)
[2017-09-20 06:19] VITALS: PULSE 83; O2SAT 95
[2017-09-20 06:55] LABS: Bedside Glucose 209 mg/dL (70-110)
[2017-09-20] MEDS: Gabapentin 600 MG Tablet PO (09:21)
[2017-09-20 11:31] LABS: Bedside Glucose 154 mg/dL (70-110)
--- NOTE | 2017-09-20 14:03 | MDS.RN ---
Information for the mds was obtained from review of the clinical record, interview of resident, staff, and direct observation of resident's care.
--- NOTE | 2017-09-20 14:26 | CASEMGMT ---
Insurance Clinical information sent. Pending continued stay approval at this time. Auth#[id number] Violeta PEREIRA, FABRICATION AND LAYOUT CRAFTSMAN
--- NOTE | 2017-09-20 15:14 | NURSING ---
wound photo: right toes
--- NOTE | 2017-09-20 15:14 | NURSING ---
wound photo: right lateral lower leg
--- NOTE | 2017-09-20 15:15 | NURSING ---
wound photo: toes right foot
--- NOTE | 2017-09-20 15:15 | NURSING ---
wound photo: right medial heel
[2017-09-20 15:46] VITALS: BP 131/66; PULSE 18; RESP 18; TEMP 36.4; O2SAT 91
[2017-09-20 17:06] LABS: Bedside Glucose 157 mg/dL (70-110)
[2017-09-20] MEDS: Atorvastatin Calcium 40 MG Tablet PO (20:36)
[2017-09-20] MEDS: Gabapentin 800 MG Tablet 1600 MG PO (20:37)
[2017-09-20] MEDS: Latanoprost 0.005% 1 Bottle 1 DRP EACH EYE (20:40)
[2017-09-20 21:15] LABS: Bedside Glucose 240 mg/dL (70-110)
[2017-09-21] MEDS: Glucerna Shake 120 ML LIQUID PO ×4 (05:11→20:30)
[2017-09-21] MEDS: Clopidogrel Bisulfate 75 MG Tablet PO (05:12)
[2017-09-21] MEDS: Losartan Potassium 50 MG Tablet PO (05:12)
[2017-09-21] MEDS: Enoxaparin 40 MG/0.4 ML Syringe SC (05:12)
[2017-09-21] MEDS: BRIMONIDINE 0.2% 5ML BOTTLE 1 DRP EACH EYE ×2 (05:12→17:16)
[2017-09-21] MEDS: Nebivolol HCl 10 MG Tablet PO (05:12)
[2017-09-21] MEDS: Pantoprazole Sodium 40 MG Tablet PO (05:12)
[2017-09-21] MEDS: Menthol/Lanolin/Calamine/Znox 113 GM Tube 1 APPLIC TOPICAL ×2 (05:17→20:30)
[2017-09-21] MEDS: Nystatin Powder 15gm Bottle 1 APPLIC TOPICAL ×2 (05:17→20:30)
[2017-09-21 07:21] LABS: Bedside Glucose 159 mg/dL (70-110)
[2017-09-21] MEDS: Gabapentin 600 MG Tablet PO (08:01)
[2017-09-21 11:41] LABS: Bedside Glucose 214 mg/dL (70-110)
--- NOTE | 2017-09-21 15:43 | CASEMGMT ---
Social Work Spoke with resident in room. This social media job titles communicating to resident that discharge date has been set for 09/27/17. Resident is agreeable to discharge date and plans to discharge home alone. Patient requires a sliding board and bedside commode for equipment at time of discharge, [facility] reporting to have needed equipment and are able to deliver equipment to resident home on day of discharge, around noon. This social media job titles communicating to resident that physical and occupational therapy as well as group home and a home health aide are being recommended are services to continue for resident within the home at time of discharge. Resident is agreeable to recommendation and requesting for home health services to be set up through [facility]. Resident reporting to not have a way to get home and to need a wheelchair van set up for transportation. Support given. Telephone call received from Joyce Esparza at [facility] region #9; Jocye reporting that resident is now active with waiver services again and a request is being made for aide services within the home. Resident to also begin home delivered meals again, resident aware and agreeable to this. [facility] Referral made for physical and occupational therapy as well as group home and a home health aide. [facility] reporting to be able to review clinicals and get back to this social media job titles on whether or not they can accept. Clinicals faxed. Telephone call to [facility], deliver set up and orders faxed for needed equipment. Proposed discharge date: 09/27/17 PLAN: Discharge home alone with home health services and pending waiver aide. Violeta PEREIRA, NYLON WINDER
[2017-09-21 15:48] VITALS: BP 129/57; PULSE 79; RESP 18; TEMP 36.4; O2SAT 98
--- NOTE | 2017-09-21 16:31 | CASEMGMT ---
Social Work Telephone call to [facility]. Transportation set up for 09/27/17 @ 1000. Transportation form completed and placed with resident discharge information. Proposed discharge date: 09/27/17 PLAN: Discharge home alone with home health services. Violeta PEREIRA, CHIP BIN OPERATOR
[2017-09-21 17:16] LABS: Bedside Glucose 224 mg/dL (70-110)
[2017-09-21] MEDS: Atorvastatin Calcium 40 MG Tablet PO (20:30)
[2017-09-21] MEDS: Gabapentin 800 MG Tablet 1600 MG PO (20:30)
[2017-09-21] MEDS: Latanoprost 0.005% 1 Bottle 1 DRP EACH EYE (20:30)
[2017-09-21 21:16] LABS: Bedside Glucose 258 mg/dL (70-110)
--- NOTE | 2017-09-21 21:37 | PCM.DC ---
- Discharge Diagnoses Current Active Problems: Current Active and Chronic Problems Right foot infection (Acute) Diabetes mellitus (Chronic) Morbid obesity (Chronic) Venous stasis dermatitis (Chronic) PAOD (peripheral arterial occlusive disease) (Chronic) Neuropathic pain (Chronic) DVT (deep venous thrombosis) (Chronic) You will use the following diet at home:: No restrictions, Regular Your food should be the consistency of: Regular Your liquids should be the consistency of: Regular/Thin Discharge Activity: - - Non ambulatory. Weight Bearing Status: No weight bearing Call your doctor if you observe: Fever of 101 or Higher, Inability to urinate, Inability to have a bowel movement, Shortness of breath, Chest pain, Uncontrolled pain Allergies/Adverse Reactions: Allergies bee venom protein (honey bee) Allergy (Verified 09/09/17 08:38) Swelling metronidazole [From Flagyl] Allergy (Verified 09/09/17 08:38) Itching Medications to take at Discharge Atorvastatin Calcium [Lipitor] 10 mg PO QHS 01/08/17 Brimonidine Tartrate 0.2% [Brimonidine 0.2% 5Ml Bottle] 1 drop EACH EYE BID 01/08/17 Ergocalciferol [Vitamin D] 50,000 unit PO FR 01/08/17 Gabapentin [Neurontin] 1,600 mg PO QHS 01/08/17 Gabapentin [Neurontin] 600 mg PO DAILY 01/08/17 Insulin U-500 [Humulin R U-500 (BKC)] 105 units SC DINNER 01/08/17 Insulin U-500 [Humulin R U-500 (BKC)] 105 units SC LUNCH 01/08/17 Insulin U-500 [Humulin R U-500 (BKC)] 160 units SC BREAKFAST 01/08/17 Latanoprost 0.005% [Xalatan Opthalmic] 1 drop EACH EYE QHS 01/08/17 Losartan Potassium [Cozaar] 50 mg PO DAILY 01/08/17 Nebivolol HCl [Bystolic (Beta Akira)] 10 mg PO DAILY 01/08/17 Omeprazole [Prilosec] 40 mg PO DAILY 01/08/17 Acetaminophen [Tylenol Tablet] 650 mg PO Q6H PRN PRN tablet 09/07/17 Clopidogrel Bisulfate [Plavix] 75 mg PO DAILY 09/07/17 Menthol/Lanolin/Calamine/Znox [Calmoseptine Ointment] 1 applic TOPICAL 0600,2200 tube 09/21/17 Nutritional Supplement [Madhu - ORANGE FLAVOR] 1 packet PO BIDCM #60 packet 09/21/17 Nystatin Powder [Mycostatin Powder] 1 applic TOPICAL 0600,2200 bottle 09/21/17 The following prescriptions were given: Nutritional Supplement [Madhu - ORANGE FLAVOR] 1 packet PO BIDCM #60 packet Primary Care Physician: Prem Doctor,Out of [Primary Care Provider] - Please follow up with your Primary Care Physician in: 1 week. Proposed Discharge Date: 09/27/17
--- NOTE | 2017-09-21 21:40 | DCINST_ITS ---
- Discharge Diagnoses Current Active Problems: Current Active and Chronic Problems Right foot infection (Acute) Diabetes mellitus (Chronic) Morbid obesity (Chronic) Venous stasis dermatitis (Chronic) PAOD (peripheral arterial occlusive disease) (Chronic) Neuropathic pain (Chronic) DVT (deep venous thrombosis) (Chronic) You will use the following diet at home:: No restrictions, Regular Your food should be the consistency of: Regular Your liquids should be the consistency of: Regular/Thin Discharge Activity: - - Non ambulatory. Weight Bearing Status: No weight bearing Call your doctor if you observe: Fever of 101 or Higher, Inability to urinate, Inability to have a bowel movement, Shortness of breath, Chest pain, Uncontrolled pain Allergies/Adverse Reactions: Allergies bee venom protein (honey bee) Allergy (Verified 09/09/17 08:38) Swelling metronidazole [From Flagyl] Allergy (Verified 09/09/17 08:38) Itching Medications to take at Discharge Atorvastatin Calcium [Lipitor] 10 mg PO QHS 01/08/17 Brimonidine Tartrate 0.2% [Brimonidine 0.2% 5Ml Bottle] 1 drop EACH EYE BID 09/21 Ergocalciferol [Vitamin D] 50,000 unit PO FR 01/08/17 Gabapentin [Neurontin] 1,600 mg PO QHS 01/08/17 Gabapentin [Neurontin] 600 mg PO DAILY 01/08/17 Insulin U-500 [Humulin R U-500 (BKC)] 105 units SC DINNER 01/08/17 Insulin U-500 [Humulin R U-500 (BKC)] 105 units SC LUNCH 01/08/17 Insulin U-500 [Humulin R U-500 (BKC)] 160 units SC BREAKFAST 01/08/17 Latanoprost 0.005% [Xalatan Opthalmic] 1 drop EACH EYE QHS 01/08/17 Losartan Potassium [Cozaar] 50 mg PO DAILY 01/08/17 Nebivolol HCl [Bystolic (Beta Akira)] 10 mg PO DAILY 01/08/17 Omeprazole [Prilosec] 40 mg PO DAILY 01/08/17 Acetaminophen [Tylenol Tablet] 650 mg PO Q6H PRN PRN tablet 09/07/17 Clopidogrel Bisulfate [Plavix] 75 mg PO DAILY 09/07/17 Menthol/Lanolin/Calamine/Znox [Calmoseptine Ointment] 1 applic TOPICAL 0600, 2200 tube 09/21/17 Nutritional Supplement [Madhu - ORANGE FLAVOR] 1 packet PO BIDCM #60 packet Nystatin Powder [Mycostatin Powder] 1 applic TOPICAL 0600,2200 bottle 09/21/17 The following prescriptions were given: Nutritional Supplement [Madhu - ORANGE FLAVOR] 1 packet PO BIDCM #60 packet Primary Care Physician: Prem Doctor,Out of [Primary Care Provider] - Please follow up with your Primary Care Physician in: 1 week. Proposed Discharge Date: 09/27/17
--- NOTE | 2017-09-21 21:40 | PCM.DC.SUM ---
Discharge Date and Diagnosis - Problem List Patient Problems: Active and Suspected Problems Right foot infection (Acute) Date of Admission: 09/07/17 Date of Discharge: 09/27/17 - Primary Discharge Diagnosis Active and Suspected Problems Right foot infection (Acute) - Secondary Discharge Diagnosis Chronic Problems Ulcer of right foot with necrosis of muscle (Chronic) Ulcer of right foot with fat layer exposed (Chronic) Ulcer of right foot with necrosis of bone (Chronic) Diabetes mellitus (Chronic) Morbid obesity (Chronic) Venous stasis dermatitis (Chronic) PAOD (peripheral arterial occlusive disease) (Chronic) Neuropathic pain (Chronic) DVT (deep venous thrombosis) (Chronic) Ulcer of left lower extremity with fat layer exposed (Chronic) Chronic kidney disease (CKD) (Chronic) Anemia (Chronic) BKA stump complication (Chronic) Hx of osteomyelitis (Chronic) Left lower leg amputation. 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) Delayed wound healing (Chronic) Malnutrition (Chronic) Venous insufficiency (Chronic) Lymphedema (Chronic) Edema of both legs (Chronic) GERD (gastroesophageal reflux disease) (Chronic) Hypertension (Chronic) Hyperlipemia (Chronic) Morbid obesity with BMI of 45.0-49.9, adult (Chronic) Hyperlipidemia associated with type 2 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(Chronic) 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 Hospital Course and Treatment Imaging Results: 09/15/17 14:26 Diet: Cardiac: Calorie-Controlled Is pt able to select menu?: Yes Diet Comments: LOW SODIUM How many daily calories?: 1800 calorie Labs (Last 48 Hours) 09/20/17 09/20/17 09/20/17 06:26 11:19 17:00 POC Glucose 209 H 154 H 157 H 09/20/17 09/21/17 09/21/17 21:09 06:39 11:30 POC Glucose 240 H 159 H 214 H 09/21/17 09/21/17 16:58 21:02 POC Glucose 224 H 258 H Consultations 09/07/17 Consult: Onc/Wound/partner alliance manager Routine Comment: Operations: None Procedures: None Summary of Care Provided: The patient is a 57 year old Male with below past medical history hospitalized for right heel infected ulcer, underwent debridement 09/03/[address] Lux, admitted to TCU for rehabilitation, strengthening, wound care, intravenous antibiotics, prior to discharge home alone. [] Discharge home alone, with Home Health Services. Discharge Diet: No Restrictions Discharge Activity: - - Non ambulatory. Weight Bearing Status: No weight bearing Call your doctor if you observe: Fever of 101 or Higher, Inability to urinate, Inability to have a bowel movement, Shortness of breath, Chest pain, Uncontrolled pain Home Medications: Medications to take at Discharge Atorvastatin Calcium [Lipitor] 10 mg PO QHS 01/08/17 Brimonidine Tartrate 0.2% [Brimonidine 0.2% 5Ml Bottle] 1 drop EACH EYE BID 01/08/17 Ergocalciferol [Vitamin D] 50,000 unit PO FR 01/08/17 Gabapentin [Neurontin] 1,600 mg PO QHS 01/08/17 Gabapentin [Neurontin] 600 mg PO DAILY 01/08/17 Insulin U-500 [Humulin R U-500 (BKC)] 105 units SC DINNER 01/08/17 Insulin U-500 [Humulin R U-500 (BKC)] 105 units SC LUNCH 01/08/17 Insulin U-500 [Humulin R U-500 (BKC)] 160 units SC BREAKFAST 01/08/17 Latanoprost 0.005% [Xalatan Opthalmic] 1 drop EACH EYE QHS 01/08/17 Losartan Potassium [Cozaar] 50 mg PO DAILY 01/08/17 Nebivolol HCl [Bystolic (Beta Akira)] 10 mg PO DAILY 01/08/17 Omeprazole [Prilosec] 40 mg PO DAILY 01/08/17 Acetaminophen [Tylenol Tablet] 650 mg PO Q6H PRN PRN tablet 09/07/17 Clopidogrel Bisulfate [Plavix] 75 mg PO DAILY 09/07/17 Menthol/Lanolin/Calamine/Znox [Calmoseptine Ointment] 1 applic TOPICAL 0600,2200 tube 09/21/17 Nutritional Supplement [Madhu - ORANGE FLAVOR] 1 packet PO BIDCM #60 packet 09/21/17 Nystatin Powder [Mycostatin Powder] 1 applic TOPICAL 0600,2200 bottle 09/21/17 Following Prescrptions Were Given to Patient: Nutritional Supplement [Madhu - ORANGE FLAVOR] 1 packet PO BIDCM #60 packet Primary Care Physician: Prem Doctor,Out of [Primary Care Provider] - Please follow up with your Primary Care Physician in: 1 week. Disposition: Home with Home Health Minutes spent on discharge:: 35 Patient Condition:: Stable Medical Necessity - Tobacco Use Smoking Status: Former smoker Tobacco Use: Non-smoker Meaningful Use Info Meaningful Use Diagnoses (Choose all that apply): None applicable
--- NOTE | 2017-09-21 21:42 | HHNOTE_ITS ---
Home Health Note - Plan Overview of reason of hospitalization: The patient is a 57 year old Male with below past medical history hospitalized for right heel infected ulcer, underwent debridement 09/03/[address] Lux , admitted to TCU for rehabilitation, strengthening, wound care, intravenous antibiotics, prior to discharge home alone. [] Discharge home alone, with Home Health Services. 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) Diabetes mellitus (Chronic) Morbid obesity (Chronic) Venous stasis dermatitis (Chronic) PAOD (peripheral arterial occlusive disease) (Chronic) Neuropathic pain (Chronic) DVT (deep venous thrombosis) (Chronic) Ulcer of right foot with necrosis of muscle (Acute) Ulcer of left lower extremity with fat layer exposed (Chronic) Chronic kidney disease (CKD) (Chronic) Anemia (Chronic) BKA stump complication (Chronic) Hx of osteomyelitis (Chronic) Diabetes mellitus type 2, uncontrolled, with complications (Chronic) Skin tear of right lower leg without complication (Acute) Blister (Acute) Type 2 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with diabetic polyneuropathy (Chronic) Ulcer of right lower extremity with fat layer exposed (Chronic) Type 2 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with diabetic polyneuropathy (Chronic) Chronic ulcer of right foot with fat layer exposed (Chronic) Chronic ulcer of left leg with fat layer exposed (Acute) Delayed wound healing (Chronic) Malnutrition (Chronic) Nonhealing skin ulcer (Acute) Venous insufficiency (Chronic) Lymphedema (Chronic) Edema of both legs (Chronic) Infected wound (Acute) Open wound of right foot (Acute) GERD (gastroesophageal reflux disease) (Chronic) Hypertension (Chronic) Hyperlipemia (Chronic) Morbid obesity with BMI of 45.0-49.9, adult (Chronic) Hyperlipidemia associated with type 2 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(Chronic) 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 - Requirements and Reasons Disciplines Needed/Ordered: Long-Term, Physical Therapy Reason for Disciplines: Disease Specific Monitoring/education, Medication Management/Knowledge Deficit, Wound Care, Gait Training, Stair Training, Fall Prevention, Home Safety/Equipment Instruction, Balance and/or Posture Training, Transfer Training Related To: Limited/Poor Endurance, Shortness of Breath with Activity, Physical Impairments, Unsteady Gait/Balance, Fall Risk Patient is unable to leave the home: Without Aid of Supportive Devices (crutches , cane, wheelchair, walker), Without the assistance of another person, Because it is medically contraindicated Medically Contraindicated related to: Weight Bearing Status - Additional Disciplines Additional Disciplines Needed/Ordered: Occupational Therapy, Home Health Aide
[2017-09-22] MEDS: BRIMONIDINE 0.2% 5ML BOTTLE 1 DRP EACH EYE ×2 (06:42→17:11)
[2017-09-22] MEDS: Clopidogrel Bisulfate 75 MG Tablet PO (06:43)
[2017-09-22] MEDS: Nebivolol HCl 10 MG Tablet PO (06:43)
[2017-09-22] MEDS: Pantoprazole Sodium 40 MG Tablet PO (06:43)
[2017-09-22] MEDS: Glucerna Shake 120 ML LIQUID PO ×4 (06:44→20:43)
[2017-09-22] MEDS: Menthol/Lanolin/Calamine/Znox 113 GM Tube 1 APPLIC TOPICAL ×2 (06:45→20:47)
[2017-09-22] MEDS: Nystatin Powder 15gm Bottle 1 APPLIC TOPICAL ×2 (06:45→20:46)
[2017-09-22] MEDS: Losartan Potassium 50 MG Tablet PO (06:50)
[2017-09-22] MEDS: Enoxaparin 40 MG/0.4 ML Syringe SC (06:51)
[2017-09-22 07:01] LABS: Bedside Glucose 141 mg/dL (70-110)
[2017-09-22] MEDS: Gabapentin 600 MG Tablet PO (07:36)
--- NOTE | 2017-09-22 08:38 | CASEMGMT ---
Insurance Continued stay approved with next update due on 09/23/17. Auth#[id number] Violeta PEREIRA, MEDICAL PAYMENT POSTER
[2017-09-22 11:31] LABS: Bedside Glucose 241 mg/dL (70-110)
[2017-09-22 16:00] VITALS: BP 132/64; PULSE 80; RESP 16; TEMP 36.3; O2SAT 94
--- NOTE | 2017-09-22 16:39 | CASEMGMT ---
Social Work Telephone call from [facility], They are unable to accept resident at this time. Spoke with resident in room. This hospital social worker communicating above information. Resident voicing understanding and requesting for this hospital social worker to make a referral to [facility] - [phone]. Telephone call to [facility], Stephanie. This hospital social worker making referral for physical and occupational therapy as well as detention and a home health aide. Clinical information faxed. Stephanie to review clinicals and get back to this hospital social worker on whether or not they can accept resident. Proposed discharge date: 09/27/17 PLAN: Discharge to home alone with home health services. Violeta PEREIRA, FINAL INSPECTOR AND TESTER
[2017-09-22 16:50] LABS: Bedside Glucose 207 mg/dL (70-110)
[2017-09-22] MEDS: Gabapentin 800 MG Tablet 1600 MG PO (20:43)
[2017-09-22] MEDS: Latanoprost 0.005% 1 Bottle 1 DRP EACH EYE (20:43)
[2017-09-22] MEDS: Atorvastatin Calcium 40 MG Tablet PO (20:43)
[2017-09-22 20:50] LABS: Bedside Glucose 251 mg/dL (70-110)
[2017-09-23] MEDS: Pantoprazole Sodium 40 MG Tablet PO (06:11)
[2017-09-23] MEDS: Nebivolol HCl 10 MG Tablet PO (06:11)
[2017-09-23] MEDS: Enoxaparin 40 MG/0.4 ML Syringe SC (06:11)
[2017-09-23] MEDS: Losartan Potassium 50 MG Tablet PO (06:11)
[2017-09-23] MEDS: Menthol/Lanolin/Calamine/Znox 113 GM Tube 1 APPLIC TOPICAL ×2 (06:11→20:35)
[2017-09-23] MEDS: BRIMONIDINE 0.2% 5ML BOTTLE 1 DRP EACH EYE ×2 (06:11→17:03)
[2017-09-23] MEDS: Nystatin Powder 15gm Bottle 1 APPLIC TOPICAL ×2 (06:11→20:34)
[2017-09-23] MEDS: Clopidogrel Bisulfate 75 MG Tablet PO (06:11)
[2017-09-23] MEDS: Glucerna Shake 120 ML LIQUID PO ×4 (06:14→20:31)
[2017-09-23 06:26] LABS: Bedside Glucose 105 mg/dL (70-110)
[2017-09-23] MEDS: Gabapentin 600 MG Tablet PO (08:04)
[2017-09-23 11:16] LABS: Bedside Glucose 207 mg/dL (70-110)
--- NOTE | 2017-09-23 11:39 | NURSING ---
NO to decrease humulin u-500 insulin, 0.32mL before breakfast and 0.21mL before lunch and dinner. Patient made aware.
--- NOTE | 2017-09-23 13:18 | CASEMGMT ---
Insurance Clinical information faxed. Pending continued stay approval. Auth#[id number] Violeta PEREIRA, REPOSSESSION AGENT
[2017-09-23 15:59] VITALS: BP 145/64; PULSE 79; RESP 18; TEMP 36.2; O2SAT 95
--- NOTE | 2017-09-23 16:44 | CASEMGMT ---
Social Work Telephone call to [facility], Stephanie. Stephanie reporting to still be reviewing resident case and to be able to get back to social media intern tomorrow, 09/24/17 on decision of being able to accept resident or not. Proposed discharge date: 09/27/17 PLAN: Discharge home alone with home health services Violeta PEREIRA, ABRASIVE WORKER
[2017-09-23 17:10] LABS: Bedside Glucose 279 mg/dL (70-110)
--- NOTE | 2017-09-23 17:26 | CASEMGMT ---
Brief interview for mental status (BIMS) and resident mood interview (PHQ-9) completed on this day. BIMS score 1515. PHQ-9 score 08/31
[2017-09-23] MEDS: Gabapentin 800 MG Tablet 1600 MG PO (20:31)
[2017-09-23] MEDS: Latanoprost 0.005% 1 Bottle 1 DRP EACH EYE (20:31)
[2017-09-23] MEDS: Atorvastatin Calcium 40 MG Tablet PO (20:32)
[2017-09-23 20:51] LABS: Bedside Glucose 290 mg/dL (70-110)
[2017-09-24] MEDS: BRIMONIDINE 0.2% 5ML BOTTLE 1 DRP EACH EYE ×2 (05:56→17:29)
[2017-09-24] MEDS: Losartan Potassium 50 MG Tablet PO (05:57)
[2017-09-24] MEDS: Pantoprazole Sodium 40 MG Tablet PO (05:57)
[2017-09-24] MEDS: Enoxaparin 40 MG/0.4 ML Syringe SC (05:57)
[2017-09-24] MEDS: Clopidogrel Bisulfate 75 MG Tablet PO (05:57)
[2017-09-24] MEDS: Nebivolol HCl 10 MG Tablet PO (05:57)
[2017-09-24 06:00] VITALS: BP 156/71; PULSE 81
[2017-09-24] MEDS: Nystatin Powder 15gm Bottle 1 APPLIC TOPICAL ×2 (06:01→22:01)
[2017-09-24] MEDS: Menthol/Lanolin/Calamine/Znox 113 GM Tube 1 APPLIC TOPICAL ×2 (06:02→22:00)
[2017-09-24] MEDS: Glucerna Shake 120 ML LIQUID PO ×4 (06:04→22:01)
[2017-09-24 06:08] LABS: Absolute Lymphocyte Count 1.12 X10^3/ul (0.83-4.51); Absolute Neutrophil Count 4.8 X10^3/uL (2.0-7.7); Basophil# 0.02 X10^3/uL; Basophil% 0.3 % (0-1); Eosinophil# 0.26 X10^3/uL; Eosinophils% 3.8 % (0-5); Hematocrit 27.9 % (40-54); Hemoglobin 8.7 g/dl (13.0-16.5); Lymphocyte # 1.12 X10^3/ul (4.0); Lymphocyte % 16.6 % (19-41); Mean Corp Hgb Conc 31.2 g/gl (32-36); Mean Corpuscular Volume 86.6 fL (80-94); Mean Platelet Vol. 11.1 fl (6.2-12.0); Monocyte# 0.56 X10^3/uL; Monocyte% 8.3 % (0-10); Neutrophil # 4.75 X10^3/uL (2.7-7.7); Neutrophil % 70.3 % (47-70); Platelet Count 160 K/mm3 (150-450); RBC Distribution Width CV 15.5 % (11.6-14.6); RBC Distribution Width SD 47.2 fl (35.1-43.9); Red Blood Count 3.22 M/mm3 (4.6-6.2); White Blood Count 6.8 K/mm3 (4.4-11.0)
[2017-09-24 06:13] LABS: POSITIVE COUNT NO; POSITIVE DIFFERENTIAL NO; POSITIVE MORPHOLOGY NO
[2017-09-24 06:25] LABS: Anion Gap 8 (5-15); BUN 63 mg/dL (7-18); BUN/Creat Ratio 32.5 RATIO (10-20); Calcium,Total 8.5 mg/dL (8.5-10.1); Chloride 105 mmol/L (98-107); Creatinine, Serum 1.94 mg/dL (0.70-1.30); EST Glomerular Filtration Rate 38 mL/min (>60); Est Glom Filt Rate - Afr Amer 46 mL/min (>60); Estimated Creatinine Clearance 38.33 ml/min; Glucose 263 mg/dL (74-106); Potassium 4.7 mmol/L (3.5-5.1); Sodium Level 138 mmol/L (136-145)
[2017-09-24 07:01] LABS: Bedside Glucose 240 mg/dL (70-110)
[2017-09-24] MEDS: Gabapentin 600 MG Tablet PO (08:00)
--- NOTE | 2017-09-24 12:56 | NURSING ---
Addendum entered by Tri Carrington 09/24/17 13:50: Dr. Bullcok spoke with pt. V.O. to adjust insulins. Original Note: UTILIZATION ENGINEER NOTIFIED THIS NURSE THAT R' REFUSED TO EAT LUNCH. ASKED R' IF HE ATE, AND STATED NO, MY SUGAR WAS TOO HIGH. I DRANK MY MILK. CHECKED BLOOD SUGAR AT THIS TIME SINCE INSULIN WAS GIVEN AT TIME OF LUNCH TRAY DELIVERY-348. INFORMED R' THAT HE NEEDED TO NOTIFY NURSING IF HE PLANS TO REFUSE TO EAT. ENCOURAGED TO STILL EAT SOMETHING AT THIS TIME BUT REFUSED. WANTS TO TALK TO DR BULLOCK THIS AFTERNOON. WILL MONITOR.
[2017-09-24 13:01] LABS: Bedside Glucose 348 mg/dL (70-110)
--- NOTE | 2017-09-24 13:20 | CASEMGMT ---
Social Work Return call from [facility] and they are unable to accept pt. Met with pt in room and informed and pt with no other preference on Home health company used. Phone call to [facility] and they are able to accept pt. Referral information and orders faxed. Phone call received from Joyce at [facility] and services will begin when pt returns home. Pt made aware and is agreeable to services. No further d/c needs at this time. Pt to return home alone on Wednesday 09/27 with home health PT/OT/RN/AID and services of [facility] RANDALL Meng
--- NOTE | 2017-09-24 14:01 | NURSING ---
Dr. Bullock reviewed AM labs, NNO
--- NOTE | 2017-09-24 14:28 | NURSING ---
Addendum entered by Aleksandra Adkins 09/24/17 15:44: CHANGED R' WOUND DRESSINGS TO BLE'S SINCE ORDER DOESN'T SPECIFY DAILY VS QOD. TOLERATED WELL. Original Note: CALLED WOUND NURSEDAYANNA TO VERIFY/CLARIFY WOUND ORDERS. SHE STATED THAT DR. MCCOLLUM WILL PROBABLY BE IN THIS WEEKEND TO EVAL WOUNDS. STATED DRESSINGS DID NOT NEED TO BE CHANGED TODAY, SHE DID THEM YESTERDAY AND THEY'RE DOING FINE. STATED DR. MCCOLLUM STATED DRESSINGS COULD BE DONE QOD.
[2017-09-24 15:10] VITALS: BP 161/78; PULSE 78; RESP 18; TEMP 36.3; O2SAT 97
[2017-09-24 15:21] LABS: Bedside Glucose 318 mg/dL (70-110)
[2017-09-24 15:21] LABS: Bedside Glucose 327 mg/dL (70-110)
[2017-09-24 16:51] LABS: Bedside Glucose 238 mg/dL (70-110)
[2017-09-24 21:17] LABS: Bedside Glucose 308 mg/dL (70-110)
[2017-09-24] MEDS: Gabapentin 800 MG Tablet 1600 MG PO (22:01)
[2017-09-24] MEDS: Atorvastatin Calcium 40 MG Tablet PO (22:01)
[2017-09-24] MEDS: Latanoprost 0.005% 1 Bottle 1 DRP EACH EYE (22:01)
[2017-09-25] MEDS: Menthol/Lanolin/Calamine/Znox 113 GM Tube 1 APPLIC TOPICAL ×2 (05:20→21:13)
[2017-09-25] MEDS: Nebivolol HCl 10 MG Tablet PO (05:21)
[2017-09-25] MEDS: Losartan Potassium 50 MG Tablet PO (05:21)
[2017-09-25] MEDS: BRIMONIDINE 0.2% 5ML BOTTLE 1 DRP EACH EYE ×2 (05:21→17:33)
[2017-09-25] MEDS: Enoxaparin 40 MG/0.4 ML Syringe SC (05:22)
[2017-09-25] MEDS: Pantoprazole Sodium 40 MG Tablet PO (05:22)
[2017-09-25] MEDS: Nystatin Powder 15gm Bottle 1 APPLIC TOPICAL ×2 (05:22→21:15)
[2017-09-25] MEDS: Glucerna Shake 120 ML LIQUID PO ×4 (05:22→21:12)
[2017-09-25] MEDS: Clopidogrel Bisulfate 75 MG Tablet PO (05:22)
[2017-09-25 06:41] LABS: Bedside Glucose 225 mg/dL (70-110)
[2017-09-25] MEDS: Gabapentin 600 MG Tablet PO (08:08)
--- NOTE | 2017-09-25 10:45 | PN_ITS ---
Patient Problems: Active and Suspected Problems Right foot infection (Acute) Subjective: This 57 year old male was seen bedside this morning s/p right heel debridement with application of advanced wound care products. He was also seen for left below knee amputation stump site in which the wounds have healed. His right other lower extremity ulcers have also healed. He denies pain to the wound, calf pain, fever, chills, nausea, vomiting.He is scheduled for discharge home this upcoming Wednesday. - Physical Exam General: Alert, Oriented x3, Cooperative Extremities: No cyanosis, Capillary Refill Less than 3 Seconds, No Calf Tenderness - negative suzanne and bean right. s/p left below knee amputation, Diminished Peripheral Pulses, Edema - bilateral lower extremities Skin: Ulcer/ Wound - no erythema, no streaking, no acute infection, no purulence. epicord and amniofill advanced wound care product is intact and demonstrates incorporation with sutures peripherally intact. The dorsal 1 and 2 toe ulcers and posterior leg ulcer are now healed; full epithelialization is noted. no peripheral maceration is noted. no odor is noted.the peripheral skin is atrophic and hairless. the left BKA stump site remains healed. Musculoskeletal: No Tenderness to Palpation of Joints or Extremities, Muscle Wasting Neurological: - - lack of epicritic sensation is noted via light touch bilateral lower extremities. Psych/Mental Status: Normal Affect, Appropriate Vital Signs Temp Pulse Resp BP Pulse Ox 97.4 F L 78 18 161/78 H 97 09/24/17 15:10 09/24/17 15:10 09/24/17 15:10 09/24/17 15:10 09/24/17 15:10 Oxygen Delivery Method Room Air Weight: 136.191 kg Body Mass Index (BMI) 48.5 Finger Stick Blood Glucose 278 Intake and Output for Last 24 Hours 09/23/17 09/24/17 09/25/17 23:59 23:59 23:59 Intake Total 1760 / 1760 1240 / 1240 240 / 240 Output Total 650 / 650 1185 / 1185 1000 / 1000 Balance 1110 / 1110 55 / 55 -760 / -760 POC Glucose 09/25/17 09/24/17 09/24/17 06:23 21:10 16:45 POC Glucose 225 H 308 H 238 H 09/24/17 09/24/17 09/24/17 12:55 11:41 11:39 POC Glucose 348 H 327 H 318 H Medical Necessity - Tobacco Use Smoking Status: Former smoker Tobacco Use: Non-smoker Assessment/Plan Active and Suspected Problems Right foot infection (Acute) Right heel s/p ulcer debridement with application of advanced wound care products derived from amnionic cord and umbilical cord cells Right 1 and 2 toe ulcers - healed Right posterior leg ulcer - healed Left below knee amputation stump - healed Osteomyelitis of right calcaneus was ruled out with bone biopsy and there are no local signs of infection noted Edema and lymphedema bilateral lower extremities Diabetes with peripheral neuropathy Chronic kidney disease on hemodialysis Delayed healing Malnutrition Compliance challenges Other comorbidities I reviewed and discussed his case again today. His dressing was changed withadaptic to the right heel, gauze, abdominal pads, kerlix and claude compression dressing was reapplied. CLAUDE wrap was reapplied in a compressive manner to the left lower extremity after eucerin lotion application. The THEO wound vac will be reapplied prior to his discharge Wednesday if it is available. He was reassured no local signs of infection are noted. To continue to optimize healing by remaining on weightbearing and elevating the limbs. To continue with compression dressings to control edema. To continue with nutritional supplementation, Madhu, to optimize healing. To continue proper glycemic control. It is noted his left stump ulcer site is recently healed. I recommend proceeding with shrinkage and prosthetic device via [employer]. A prescription was provided and this will be faxed to [facility]. Medical management and DVT prophylaxis per primary team is appreciated. He understands he is still at risk for limb loss. I recommend he follows up at the wound care center within a week of discharge. If he cannot get into the schedule, I am available to see [facility] at [facility]. I answered all of his questions. Rachele Lux, DPM [facility] [phone]
--- NOTE | 2017-09-25 10:49 | PCM.DC.POD ---
Discharge Diet: No Restrictions Discharge Activity: - - Non ambulatory. Weight Bearing Status: No weight bearing Keep extremity elevated above heart level: Left Leg, Right Leg Call your doctor if your incision/area has: Continuous Slow Oozing, Sudden Increased Bleeding, Increased Pain/ Swelling, Increased Redness, Foul Smelling Discharge Call your doctor if you observe: Fever of 101 or Higher, Inability to urinate, Inability to have a bowel movement, Shortness of breath, Chest pain, Uncontrolled pain Cleanse incision/area with: Keep Dressing Clean & Dry - if wound vac is placed prior to discharge; keep intact until follow up with Dr. Lux ifwound vac not placed prior to discharge; contact Dr. Lux for different orders Allergies/Adverse Reactions: Allergies bee venom protein (honey bee) Allergy (Verified 09/09/17 08:38) Swelling metronidazole [From Flagyl] Allergy (Verified 09/09/17 08:38) Itching Medications to take at Discharge Atorvastatin Calcium [Lipitor] 10 mg PO QHS 01/08/17 Brimonidine Tartrate 0.2% [Brimonidine 0.2% 5Ml Bottle] 1 drop EACH EYE BID 01/08/17 Ergocalciferol [Vitamin D] 50,000 unit PO FR 01/08/17 Gabapentin [Neurontin] 1,600 mg PO QHS 01/08/17 Gabapentin [Neurontin] 600 mg PO DAILY 01/08/17 Insulin U-500 [Humulin R U-500 (BKC)] 105 units SC DINNER 01/08/17 Insulin U-500 [Humulin R U-500 (BKC)] 105 units SC LUNCH 01/08/17 Insulin U-500 [Humulin R U-500 (BKC)] 160 units SC BREAKFAST 01/08/17 Latanoprost 0.005% [Xalatan Opthalmic] 1 drop EACH EYE QHS 01/08/17 Losartan Potassium [Cozaar] 50 mg PO DAILY 01/08/17 Nebivolol HCl [Bystolic (Beta Akira)] 10 mg PO DAILY 01/08/17 Omeprazole [Prilosec] 40 mg PO DAILY 01/08/17 Acetaminophen [Tylenol Tablet] 650 mg PO Q6H PRN PRN tablet 09/07/17 Clopidogrel Bisulfate [Plavix] 75 mg PO DAILY 09/07/17 Menthol/Lanolin/Calamine/Znox [Calmoseptine Ointment] 1 applic TOPICAL 0600,2200 tube 09/21/17 Nutritional Supplement [Madhu - ORANGE FLAVOR] 1 packet PO BIDCM #60 packet 09/21/17 Nystatin Powder [Mycostatin Powder] 1 applic TOPICAL 0600,2200 bottle 09/21/17 The following prescriptions were given: Nutritional Supplement [Madhu - ORANGE FLAVOR] 1 packet PO BIDCM #60 packet Primary Care Physician: Prem Doctor,Out of [Primary Care Provider] - Please follow up with your Primary Care Physician in: 1 week. Please Follow Up With: Arnie Bullock Chi, MD Please Follow Up With: Rachele Lux DPM When: 1 week at wound center. if not able to get in, call [phone] Proposed Discharge Date: 09/27/17
[2017-09-25 14:17] VITALS: BP 165/79; PULSE 82; RESP 18; TEMP 36.4; O2SAT 97
[2017-09-25 16:45] LABS: Bedside Glucose 335 mg/dL (70-110)
[2017-09-25] MEDS: Senna/Docusate Sodium 1 Tablet 2 TABLET PO (17:33)
[2017-09-25 21:11] LABS: Bedside Glucose 329 mg/dL (70-110)
[2017-09-25] MEDS: Atorvastatin Calcium 40 MG Tablet PO (21:12)
[2017-09-25] MEDS: Latanoprost 0.005% 1 Bottle 1 DRP EACH EYE (21:13)
[2017-09-25] MEDS: Gabapentin 800 MG Tablet 1600 MG PO (21:13)
[2017-09-26] MEDS: Nebivolol HCl 10 MG Tablet PO (05:59)
[2017-09-26] MEDS: Losartan Potassium 50 MG Tablet PO (05:59)
[2017-09-26] MEDS: Glucerna Shake 120 ML LIQUID PO ×4 (05:59→20:42)
[2017-09-26] MEDS: Pantoprazole Sodium 40 MG Tablet PO (05:59)
[2017-09-26] MEDS: Clopidogrel Bisulfate 75 MG Tablet PO (05:59)
[2017-09-26] MEDS: Nystatin Powder 15gm Bottle 1 APPLIC TOPICAL ×2 (06:00→20:40)
[2017-09-26] MEDS: BRIMONIDINE 0.2% 5ML BOTTLE 1 DRP EACH EYE ×2 (06:00→17:00)
[2017-09-26] MEDS: Menthol/Lanolin/Calamine/Znox 113 GM Tube 1 APPLIC TOPICAL ×2 (06:00→20:42)
[2017-09-26] MEDS: Enoxaparin 40 MG/0.4 ML Syringe SC (06:01)
[2017-09-26 06:40] LABS: Bedside Glucose 282 mg/dL (70-110)
[2017-09-26] MEDS: Gabapentin 600 MG Tablet PO (07:58)
[2017-09-26 11:26] LABS: Bedside Glucose 331 mg/dL (70-110)
[2017-09-26 14:40] VITALS: BP 150/73; PULSE 82; RESP 18; TEMP 36.4; O2SAT 97
[2017-09-26 17:06] LABS: Bedside Glucose 286 mg/dL (70-110)
[2017-09-26] MEDS: Gabapentin 800 MG Tablet 1600 MG PO (20:40)
[2017-09-26] MEDS: Latanoprost 0.005% 1 Bottle 1 DRP EACH EYE (20:40)
[2017-09-26] MEDS: Atorvastatin Calcium 40 MG Tablet PO (20:41)
[2017-09-26 20:56] LABS: Bedside Glucose 334 mg/dL (70-110)
[2017-09-27] MEDS: BRIMONIDINE 0.2% 5ML BOTTLE 1 DRP EACH EYE (06:18)
[2017-09-27] MEDS: Clopidogrel Bisulfate 75 MG Tablet PO (06:19)
[2017-09-27] MEDS: Glucerna Shake 120 ML LIQUID PO (06:19)
[2017-09-27] MEDS: Pantoprazole Sodium 40 MG Tablet PO (06:19)
[2017-09-27] MEDS: Nebivolol HCl 10 MG Tablet PO (06:19)
[2017-09-27] MEDS: Menthol/Lanolin/Calamine/Znox 113 GM Tube 1 APPLIC TOPICAL (06:19)
[2017-09-27] MEDS: Nystatin Powder 15gm Bottle 1 APPLIC TOPICAL (06:19)
[2017-09-27] MEDS: Enoxaparin 40 MG/0.4 ML Syringe SC (06:19)
[2017-09-27] MEDS: Losartan Potassium 50 MG Tablet PO (06:19)
[2017-09-27 06:26] LABS: Bedside Glucose 238 mg/dL (70-110)
[2017-09-27] MEDS: Gabapentin 600 MG Tablet PO (08:18)
--- NOTE | 2017-09-27 09:37 | NURSING ---
wound photo: right medial heel
--- NOTE | 2017-09-27 09:38 | NURSING ---
wound photo: toes right foot
[2017-09-27 10:12] VITALS: BP 146/60; PULSE 82; RESP 16; TEMP 37.2; O2SAT 98
[2017-09-27 10:51] LABS: C-Peptide 3.1 ng/mL (1.1-4.4)
--- NOTE | 2017-09-27 11:47 | CASEMGMT ---
Addendum entered by Violeta Stahl 09/27/17 11:47: Incorrect auth number documented below. Correct auth is: [id number] Original Note: Insurance Notified insurance of resident discharge on 09/27/17 to home alone with home health services. Auth#[id number] Violeta PEREIRA, TRAFFIC CONTROL TECHNICIAN
[2017-09-27 15:31] LABS: Bedside Glucose 304 mg/dL (70-110)
[2017-09-27 15:31] LABS: Bedside Glucose 338 mg/dL (70-110)
== END 2017-09-27 10:50 | disposition home health service (06) | DRG 638 ==
PROVIDERS: Admitting Provider Family Medicine Geriatric Medicine; Visit Provider Family Medicine Geriatric Medicine
DX: E11.621 Type 2 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with foot ulcer (principal); L97.414 Non-pressure chronic ulcer of right heel and midfoot with necrosis of bone; Z68.42 Body mass index [BMI] 45.0-49.9, adult; E11.22 Type 2 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with diabetic chronic kidney disease; E11.51 Type 2 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with diabetic peripheral angiopathy without gangrene; E66.01 Morbid (severe) obesity due to excess calories; I12.9 Hypertensive chronic kidney disease with stage 1 through stage 4 chronic kidney disease, or unspecified chronic kidney disease; N18.9 Chronic kidney disease, unspecified; K21.9 Gastro-esophageal reflux disease without esophagitis; I89.0 Lymphedema, not elsewhere classified; E78.5 Hyperlipidemia, unspecified; E11.65 Type 2 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with hyperglycemia; E11.42 Type 2 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with diabetic polyneuropathy; E11.319 Type 2 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with unspecified diabetic retinopathy without macular edema; Z79.899 Other long term (current) drug therapy; Z71.3 Dietary counseling and surveillance; Z86.718 Personal history of other venous thrombosis and embolism; Z79.4 Long term (current) use of insulin; Z79.02 Long term (current) use of antithrombotics/antiplatelets; Z87.891 Personal history of nicotine dependence; Z89.512 Acquired absence of left leg below knee; B95.2 Enterococcus as the cause of diseases classified elsewhere; B96.4 Proteus (mirabilis) (morganii) as the cause of diseases classified elsewhere; B96.89 Other specified bacterial agents as the cause of diseases classified elsewhere
CPT/HCPCS: 36415; 80048; 82962; 84681; 85025; 97110; 97162; 97166; 97530; 97535; 97542; 97802; J2185; J7050; J7120; A4216

== ENCOUNTER 2017-09-14 13:50 | Day surgery (SDC) | payer MEDICARE, MEDICAID, SELFPAY ==
[2017-09-14] MEDS: Bupivacaine Mpf 0.5% 30 ML VIAL (14:15)
[2017-09-14 14:22] VITALS: BP 148/71; PULSE 85; RESP 18; TEMP 36.2; O2SAT 95; BMI 46.3
[2017-09-14 15:26] LABS: Bedside Glucose 224 mg/dL (70-110)
[2017-09-14 16:10] VITALS: BP 147/49; BP 148/71; PULSE 76; RESP 16; TEMP 36.1; O2SAT 94
--- NOTE | 2017-09-14 16:13 | PCM.IMDPSTOP ---
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 ulcer right heel muscle layer and fascia exposed. ulcer right leg fat layer exposed Post-Operative Diagnosis: ulcer right foot with fat layer exposed,digits 1 and 2. ulcer right heel muscle layer and fascia exposed. ulcer right leg fat layer exposed Surgery/Procedure Performed:: excisional subcutaneous and muscle debridement right foot. excisional subcutaneous debridement right leg. application of advanced wound care product; amniofill and epicord right foot. application of wound vac, right foot Description of Surgical Findings:: hemostasis controlled advanced wound care product applied wound vac applied The patient tolerated the procedure and anesthesia well. He was transferred to the PACU with vital signs stable and vascular status intact to the right lower extremity. Post operative orders were placed electronically. I will follow him while in the transitional care unit. Estimated Blood Loss: < 50 mL Specimen's removed: none Type of Anesthesia:: Local - Admit VTE Documentation VTE Present on Admission: No VTE Mechan Device Prophylaxis: SCD's VTE Pharm Prophylaxis ordered?: Yes
--- NOTE | 2017-09-14 16:14 | PCM.OPRPT ---
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 ulcer right heel muscle layer and fascia exposed. ulcer right leg fat layer exposed Post-Operative Diagnosis: ulcer right foot with fat layer exposed,digits 1 and 2. ulcer right heel muscle layer and fascia exposed. ulcer right leg fat layer exposed Surgery/Procedure Performed:: excisional subcutaneous and muscle debridement right foot. excisional subcutaneous debridement right leg. application of advanced wound care product; amniofill and epicord right foot. application of wound vac, right foot Description of Surgical Findings:: hemostasis: no tourniquet utilized. hemostasis controlled with anatomic dissection. pressure applied materials: amniofill, epicord, 3-0 prolene staff physician: none Type of Anesthesia:: Local - versed use only and preoperative: 1:1 mixture of 1% lidocaine plain and 0.5% marcaine plain administered in heel local infiltrative manner (10 cc) Specimen's removed: none Estimated Blood Loss (mL): 50 mL Description of Procedure: Indications: This 57-year-old male with multiple comorbidities including diabetes with neuropathy, chronic kidney disease on hemodialysis, morbid obesity, lymphedema, hypertension, hyperlipidemia, anemia, peripheral arterial disease, venous insufficiency, GERD, and significant delayed healing of wounds who was previously debrided with versajet for infected right heel ulcer and a bone biopsy which was negative for osteomyelitis was taken back to the operating room today. This is a staged procedure for debridement, application of advanced wound care products, and application of wound vac. Preoperative, there is a 4.8 cm x 5.9 cm x 1.8 cm to the plantar medial aspect of the right heel with exposed muscle fascia. There is no odor, necrosis, or anna purulence. The hallux ulcer measuers 7x7x2 mm and the 2nd toe ulcer measures 6x 10x1 mm. The posterior right leg ulcer measures 0.6 x 1.8 x 0.1 cm. The preoperative indications, planned procedure, possible benefits, risks, complications, and anticipated healing time management were discussed in detail the patient. He understands and elects to proceed with surgery at this time. No guarantees are made. Surgical limb and surgical consent were signed. I answered all his questions. He was medically optimized by the transitional care unit physician, and his preoperative diagnostic data was reviewed in full. Procedure in detail: The patient to the operating room via cart and placed on the operating table in supine position. The leg was bumped with blankets to allow good exposure of the medial heel. A tourniquet was not utilized. He is already on IV antibiotics that were initiated on the medicine floor. The anesthesia team initiated sedation with versed only; this was mainly a local anesthesia procedure. I administered the local anesthetic as described above. The right lower extremity was prepped and draped in the usual aseptic manner. Surgery began as a following: Attention was first directed to the right heel in which devitalized tissue was noted. A fifteen blade was used to debride this tissue in an excisional subcutaneous manner to remove fibrous tissue, devitalized tissue, biofilm, and slough. Pressure was applied to maintain hemostasis. The postoperative debridement measurements were as follows: 4.9cm x 6.0 cm x 1.9 cm to the right heel, 8x8x2 mm to the right hallux, 7x10x1 mm to the right second toe, and 0.7 x 1.9 x 0.1 cm to the posterior right leg. He tolerated this well. This was copiously irrigated with normal saline. Next, 500 cc of amniofill was applied to the toe and heel ulcer sites. This was secured in place with a 2x3 cm and 3x5 cm epicord, and this was additionally secured with 3-0 prolene sutures. Adaptic was also applied. Next, a THEO wound vac was secured and applied to the heel and this was set on continuous. Additional adaptic and gauze were applied to all the sites and was further dressed with abdominal pads, Kerlix, and Jose Antonio wraps. Brisk capillary refill time is noted to all digits of the right lower extremity and periwound prior to applying the dressings. After procedure: The patient tolerated the procedure well and transported to the PACU vital signs stable and vascular status intact to the right lower extremity. He will be transferred back to the transitional care unit upon continued stability. He was advised to elevate for pain and inflammation management. Strict nonweightbearing is recommended and orders were placed. To continue with proper glycemic control and nutritional supplementation to optimize healing. He understands he is at high risk for limb loss and due to this condition. Significant reduction in edema and decreased wound inflammation and size are noted since he has been in the hospital receiving care as compared to his most recent wound care center visit. To continue on IV antibiotics per infectious disease team in which input is greatly appreciated. PICC line placement remains intact. It is noted his recent calcaneus bone biopsies have been negative for osteomyelitis and infectious disease is on consultation. To I will continue to follow his case close while in house. Medical management and DVT prophylaxis per primary team are appreciated. Rachele Lux, [facility] - Complications none
[2017-09-14 16:15] VITALS: BP 147/60; BP 148/71; PULSE 74; RESP 16; O2SAT 95
[2017-09-14 16:20] VITALS: BP 147/61; BP 148/71; PULSE 75; RESP 16; O2SAT 97
[2017-09-14 16:25] VITALS: BP 148/71; BP 149/61; PULSE 75; RESP 16; TEMP 36.4; O2SAT 96
[2017-09-14 17:16] LABS: Bedside Glucose 250 mg/dL (70-110)
== END 2017-09-14 16:38 ==
LOC: SDC 14:29 → AC 14:43
PROVIDERS: Visit Provider Podiatrist
PROC: (CPT 11043; principal; 2017-09-14 14:50)
DX: L97.512 Non-pressure chronic ulcer of other part of right foot with fat layer exposed (principal); E11.42 Type 2 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with diabetic polyneuropathy; L97.413 Non-pressure chronic ulcer of right heel and midfoot with necrosis of muscle; K21.9 Gastro-esophageal reflux disease without esophagitis; I12.9 Hypertensive chronic kidney disease with stage 1 through stage 4 chronic kidney disease, or unspecified chronic kidney disease; N18.9 Chronic kidney disease, unspecified; Z87.891 Personal history of nicotine dependence; Z79.4 Long term (current) use of insulin; Z86.718 Personal history of other venous thrombosis and embolism; E66.01 Morbid (severe) obesity due to excess calories; E78.5 Hyperlipidemia, unspecified; E55.9 Vitamin D deficiency, unspecified; H40.9 Unspecified glaucoma; Z68.42 Body mass index [BMI] 45.0-49.9, adult
CPT/HCPCS: 11043; 82962

== ENCOUNTER → 2017-10-01 11:56 | Outpatient (CLI) | payer MEDICARE, MEDICAID, SELFPAY ==
[2017-10-01 13:18] LABS: BUN 49 mg/dL (7-18); Creatinine, Serum 1.95 mg/dL (0.70-1.30); Glucose 236 mg/dL (74-106)
[2017-10-01 13:19] LABS: ALB/GLOB Ratio 0.6 RATIO (0.9-2.4); AST(SGOT) 40 U/L (15-37); Alanine Aminotransfer ALT/SGPT 57 U/L (16-61); Albumin, Serum 3.1 g/dL (3.2-5.0); Alkaline Phosphatase 84 U/L (45-117); Anion Gap 6 (5-15); BUN/Creat Ratio 25.1 RATIO (10-20); Calcium,Total 8.7 mg/dL (8.5-10.1); Chloride 106 mmol/L (98-107); EST Glomerular Filtration Rate 38 mL/min (>60); Est Glom Filt Rate - Afr Amer 46 mL/min (>60); Globulin 4.9 g/dL (2.2-4.2); PSA,Total - Annual Screen 0.14 ng/mL (0.00-4.00); Potassium 5.2 mmol/L (3.5-5.1); Sodium Level 138 mmol/L (136-145); Thyroid Stim Hormone (TSH) 2.44 uIU/mL (0.358-3.74)
[2017-10-01 13:23] LABS: Absolute Neutrophil Count 5.8 X10^3/uL (2.0-7.7); Basophil# 0.03 X10^3/uL; Basophil% 0.4 % (0-1); Eosinophil# 0.26 X10^3/uL; Eosinophils% 3.3 % (0-5); Hematocrit 32.6 % (40-54); Hemoglobin 10.1 g/dl (13.0-16.5); Lymphocyte % 16.3 % (19-41); Mean Corpuscular Hgb 27.1 pg (27.0-32.0); Mean Corpuscular Volume 87.4 fL (80-94); Mean Platelet Vol. 11.2 fl (6.2-12.0); Monocyte# 0.52 X10^3/uL; Monocyte% 6.5 % (0-10); Neutrophil # 5.77 X10^3/uL (2.7-7.7); Neutrophil % 72.1 % (47-70); Platelet Count 183 K/mm3 (150-450); RBC Distribution Width CV 16.2 % (11.6-14.6); RBC Distribution Width SD 50.3 fl (35.1-43.9); Red Blood Count 3.73 M/mm3 (4.6-6.2)
[2017-10-01 13:27] LABS: POSITIVE COUNT NO; POSITIVE DIFFERENTIAL NO; POSITIVE MORPHOLOGY NO
[2017-10-04 12:28] LABS: Hep C Antibodies <0.1 s/co ratio (0.0-0.9)
== END ==
PROVIDERS: Visit Provider Family Medicine Geriatric Medicine
DX: E11.9 Type 2 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without complications (principal); Z13.89 Encounter for screening for other disorder; Z12.5 Encounter for screening for malignant neoplasm of prostate
CPT/HCPCS: 36415; 80053; 84153; 84443; 85025; 86803; G0103

== ENCOUNTER → 2017-10-14 12:14 | Outpatient (CLI) | payer MEDICARE, MEDICAID, SELFPAY ==
[2017-10-14 13:16] LABS: Anion Gap 11 (5-15); BUN 51 mg/dL (7-18); BUN/Creat Ratio 24.2 RATIO (10-20); Calcium,Total 8.9 mg/dL (8.5-10.1); Chloride 103 mmol/L (98-107); Creatinine, Serum 2.11 mg/dL (0.70-1.30); EST Glomerular Filtration Rate 34 mL/min (>60); Est Glom Filt Rate - Afr Amer 42 mL/min (>60); Glucose 313 mg/dL (74-106); Potassium 4.9 mmol/L (3.5-5.1); Sodium Level 139 mmol/L (136-145)
--- NOTE | 2017-10-14 14:29 | RAD_ITS ---
STUDY: X-RAY - LUMBAR SPINE REASON FOR EXAM: Male, 57 years old. Chronic back pain. TECHNIQUE: AP and lateral view(s) of the lumbar spine were obtained. COMPARISON: None FINDINGS: Normal lumbar lordosis. There is no substantial scoliosis. There is a normal alignment of the vertebrae. There is multilevel endplate spondylosis of the lumbar vertebrae. Mild degree of disc space narrowing and disc degeneration at the L3-L4 level. There is atherosclerotic calcification of the abdominal aorta without a demonstrated aneurysm. RAD/Lumbar Spine 2 or 3 Views IMPRESSION: Degenerative changes of the spine, as detailed above. Electronically Signed: Saeed Jeffrey MD at 15:16 EDT Tel [phone], Service support ,
== END ==
PROVIDERS: Family Provider Family Medicine Geriatric Medicine; PCP Family Medicine Geriatric Medicine; Visit Provider Family Medicine Geriatric Medicine
DX: I10 Essential (primary) hypertension (principal); M51.86 Other intervertebral disc disorders, lumbar region
CPT/HCPCS: 36415; 72100; 80048; G0108

== ENCOUNTER → 2017-10-20 15:48 | Outpatient (CLI) | payer MEDICARE, SELFPAY ==
[2017-10-20 18:02] LABS: Protein, Urine (Random) 96.8 mg/dL (<11.9); Protein:Creat Ratio 2004 mg/g CRE (0-200)
== END ==
PROVIDERS: Visit Provider Family Medicine Geriatric Medicine
DX: N18.3 Chronic kidney disease, stage 3 (moderate) (principal)
CPT/HCPCS: 82570; 84156

== ENCOUNTER → 2017-10-29 09:53 | Outpatient (CLI) | payer MEDICARE, MEDICAID, SELFPAY ==
--- NOTE | 2017-10-29 11:30 | MRI_ITS ---
STUDY: MRI LUMBAR SPINE WITHOUT CONTRAST REASON FOR EXAM: Male, 57 years old. LOW BACK PAIN, left leg pain. Fall injury 40 years ago TECHNIQUE: Standardized fat and water weighted pulse sequences were obtained in the sagittal and axial planes. COMPARISON: X-ray October 14, 2017 FINDINGS: Normal lumbar lordosis. There is no substantial scoliosis. Normal conus medullaris that terminates at the T12-L1 level. There is no spondylolisthesis. There is loss of disc height at L3-4. Vertebral body heights are maintained. There is a L4 subchondral cyst at L3-4. There is multilevel facet arthropathy and ligamentum flavum hypertrophy. T12/L1: Sagittal images only were obtained. No disc bulge or herniation or central canal or neural foraminal stenosis is demonstrated. L1/2: Normal disc. No central canal or neuroforaminal stenosis. L2/3: Normal disc. No central canal stenosis. There is mild bilateral neuroforaminal stenosis. L3/4: There is a diffuse bulge slightly larger on the right. There are central and right foraminal protrusions. There is impression on the ventral thecal sac and moderate right and mild left neuroforaminal stenosis. L4/5: There is a mild diffuse bulge. There is no central canal stenosis. There is moderate bilateral neuroforaminal stenosis. L5/S1: There is a diffuse bulge slightly larger on the right. There is no central canal stenosis. There is moderate right and mild left neuroforaminal stenosis. The disc contacts the right S1 nerve root in the right paracentral region. Normal visualized sacral ala. There are partially imaged cystic structures of the left kidney. MRI/Spine Lumbar (Routine) IMPRESSION: Multilevel degenerative changes, as described above. L2/3: There is mild bilateral neuroforaminal stenosis. L3/4: There is a diffuse bulge slightly larger on the right. There are central and right foraminal protrusions. There is moderate right and mild left neuroforaminal stenosis. L4/5: There is a mild diffuse bulge. There is moderate bilateral neuroforaminal stenosis. L5/S1: There is a diffuse bulge slightly larger on the right. There is moderate right and mild left neuroforaminal stenosis. The disc contacts the right S1 nerve root in the right paracentral region. Electronically Signed: Delia Brunner MD at 13:08 EDT , Service support ,
--- NOTE | 2017-10-29 12:27 | US_ITS ---
STUDY: RENAL ULTRASOUND - COMPLETE REASON FOR EXAM: Male, 57 years old. ARF LOW BACK PAIN TECHNIQUE: Ultrasound evaluation of the kidneys was performed with real-time and static atkinson-scale imaging. COMPARISON: None. FINDINGS: RIGHT KIDNEY: Normal location of the right kidney, which is normal in size. The right kidney measures 13.4X5.5X6.6 cm. There is a normal cortex of the right kidney. The renal cortex measures 2.1 cm. There is no right renal mass or cyst. There are no right renal calculi. There is no right hydronephrosis. DISTAL RIGHT URETER: There is non-visualization of the distal right ureter. There is no demonstrated right ureterovesical junction calculus. There is a visualized right ureteral jet. LEFT KIDNEY: Normal location of the left kidney, which is normal in size. The left kidney measures 12X6.1X5.4 cm. There is a normal cortex of the left kidney. The renal cortex measures 1.8 cm. 3 cysts. These measure 36 x 39x 37 millimeter , 21 x 18 x 20 mm, and 16 x 13 x 15 mm. There are no left renal calculi. There is no left hydronephrosis. DISTAL LEFT URETER: There is non-visualization of the distal left ureter. There is no demonstrated left ureterovesical junction calculus. There is a visualized left ureteral jet. AORTA: There is obscuration of the abdominal aorta by overlying bowel gas I.V.C.: The IVC is obscured. BLADDER: The distended urinary bladder has a volume of 841 ml. The empty urinary bladder has a volume of 278 ml. There is a normal wall thickness of the distended urinary bladder. There is no demonstrated mass within the urinary bladder. There are no demonstrated bladder calculi. US/Kidney and Bladder IMPRESSION: Simple left renal cyst. Electronically Signed: Nabeel Castro MD at 17:49 EDT , Service support ,
--- NOTE | 2017-10-29 12:35 | CT_ITS ---
STUDY: LOW DOSE CT LUNG CANCER SCREENING REASON FOR EXAM: Male, 57 years old. Tobacco abuse x 49 years. Positive PPD. RADIATION DOSAGE (If Supplied By Facility): CTDIvol = ( 4.02 ) mGy, DLP = ( 119.84 ) mGycm TECHNIQUE: No contrast was administered. Low dose technique was utilized (average mAS-38 and kVp 120). 1.25 mm axial source images with a slice interval of 1.25-mm were reconstructed in lung windows. 2.5 mm axial source images with a slice interval of 2.5-mm were reconstructed in lung windows. 5.0 mm axial source images with a slice interval of 5.0-mm were reconstructed in soft tissue windows. Nodule measured using lung windows on PACS and/or independent workstation with automated measurement of minimum and maximum diameter. Nodule measurement reported as average diameter rounded to the nearest whole number. Growth is defined as an increase ins size of greater than 1.5 mm. COMPARISON: None. NODULES: No worrisome lung nodule or mass identified. There is patchy area with airspace disease/consolidation demonstrated in the left lung base with associated small pleural effusion. Linear areas of atelectasis in the lingula. Moderate pleural thickening is seen anteriorly/laterally in the left hemithorax. Bilaterally there is low lung volume. Endobronchial lesion: Aorta: There is mild atherosclerotic calcification of the aortic arch. Coronary arteries: Significant atherosclerotic calcification of the coronary arteries. Heart: Normal in size. Increased pericardial fat pad. Pulmonary artery: Unremarkable. Mediastinal nodes: Few small reactive mediastinal lymph nodes are seen. No demonstrated lymphadenopathy. Other chest and abdominal findings: There is diffuse fatty hepatic infiltration. Hepatosplenomegaly. Multilevel degenerative thoracic endplate spondylosis. CT/Low Dose CT Lung Screening IMPRESSION: Lung-RADS category 3 - Continue screening with LDCT in 6 months. Left lung base: Airspace disease/consolidation. A small left pleural effusion. Atherosclerotic coronary arterial disease. Hepatic steatosis. Hepatosplenomegaly. IMPORTANT NOTES FOR USE: ACR Lung-RADS Version 1.0 Assessment Categories Release Date: October 02, 2013 Category: Coded 0-4 bases on nodule(s) with highest degree of suspicion. Negative screen is defined as categories 1 and 2; a positive screen is defined as categories 3 and 4. Category 3 and 4A nodules that are unchanged on interval CT should be coded as category 2, and individuals returned to screening in 12 months. Category 4X: Category 3 or 4 nodules with additional imaging findings that increase the suspicion of lung cancer, such as spiculation, GGN that doubles in size in 1 year, enlarged lymph notes, etc. Category Modifiers: S (significant finding unrelated to lung cancer) and C (prior history of treated lung cancer) may be added to the 0-4 Lung-RADS Electronically Signed: Thaddeus Huffman MD at 9:44 EDT Tel , Service support ,
== END ==
PROVIDERS: Family Provider Family Medicine Geriatric Medicine; PCP Family Medicine Geriatric Medicine; Visit Provider Family Medicine Geriatric Medicine
DX: N17.9 Acute kidney failure, unspecified (principal); M54.5 Low back pain; Z87.891 Personal history of nicotine dependence
CPT/HCPCS: 72148; 76770; G0297

== ENCOUNTER 2017-11-03 10:30 | Outpatient (RCR) | payer MEDICARE, SELFPAY ==
[2017-10-06 15:14] VITALS: BP 134/73; PULSE 92; RESP 18; TEMP 36.5
--- NOTE | 2017-10-06 15:23 | WC ---
dressing left on RLE as ordered Dr will remove dressing
--- NOTE | 2017-10-06 17:31 | PN.PCM_ITS ---
(1) Ulcer of right foot with necrosis of muscle Status: Chronic Current Visit: Yes Code(s): L97.513 - Non-pressure chronic ulcer of other part of right foot with necrosis of muscle (2) Ulcer of right foot with fat layer exposed Status: Chronic Current Visit: Yes Code(s): L97.512 - Non-pressure chronic ulcer of other part of right foot with fat layer exposed (3) Complete below knee amputation of left lower extremity Status: Chronic Current Visit: Yes Code(s): S88.112A - Complete traumatic amputation at level between knee and ankle, left lower leg, initial encounter (4) Chronic kidney disease (CKD) Status: Chronic Current Visit: No Qualifiers: Code(s): N18.9 - Chronic kidney disease, unspecified (5) BKA stump complication Status: Chronic Current Visit: Yes Code(s): T87.9 - Unspecified complications of amputation stump (6) Type 2 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with diabetic polyneuropathy Status: Chronic Current Visit: Yes Code(s): E11.42 - Type 2 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with diabetic polyneuropathy (7) Venous insufficiency Status: Chronic Current Visit: Yes (8) Lymphedema Status: Chronic Current Visit: Yes Code(s): I89.0 - Lymphedema, not elsewhere classified (9) Edema of both legs Status: Chronic Current Visit: Yes Code(s): R60.0 - Localized edema Type of Wound Date of Service: 10/07/17 Chief Complaint: right foot ulcer healed and now reopened. right heel ulcer s/ p surgical intervention. Right leg ulcer remains healed. Left leg ulcer remains healed History of Wound: 57-year-old white male returns to clinic for follow-up of bilateral leg ulcers and right foot ulcers. He denies fever, chill, nausea, vomiting, loss of appetite. He has continued lower extremity swelling has been recently better controlled. He underwent surgical debridement application of advanced wound care products, Amniofil and epi fix September 14, 2017. He has since returned home and denies using his compression pumps at any time. He also presents today without any compression dressing to his left leg. He is scheduled to get his pre-prosthetic strength dressing from the antibiotic the left lower extremity this upcoming week. He has kept pressure off of his wound heal site on the right lower extremity. Progress of Wound: improving. returned foot ulcer - Physical Exam Vital Signs Temp Pulse Resp BP 97.7 F L 92 18 134/73 H 10/06/17 15:14 10/06/17 15:14 10/06/17 15:14 10/06/17 15:14 General: Alert, Oriented x3, Cooperative Extremities: No cyanosis, Capillary Refill Less than 3 Seconds, No Calf Tenderness - Negative Harry and [place], Diminished Peripheral Pulses, Edema - Lymphedema bilateral lower extremities Skin: Ulcer/ Wound - No purulence, no erythema, streaking, no odor, no acute signs of infection. Sutures are intact to the right heel with advanced wound care products in place., - - The skin is atrophic. There is serous weeping and has returned to the right foot with interdigital maceration and skin discontinuity. this is not at the inital wound location of his dorsal 1 and 2 toe ulcer sites. his left leg remains epithelialized however the skin is inflammed and edema has increased Wound Measurements and Assessment WC - Nurse 1 - General Ulcer Measurement Start: 10/06/17 15:14 Freq: Status: Active Protocol: Activity Type Activity Date Activity User E-Sign Co-Sign Detail Recorded Client Recorded Date Recorded By Document 10/06/17 15:14 RB [id number] 10/06/17 15:23 RB 10/06/17 15:14 Wound Center Nurse 1 [Ulcer Assessment] #1 BTK Left Stump cluster -Combined with other wound No -Current Size (cm) - Length 0.5 -Current Size (cm) - Width 1 -Current Size (cm) - Depth 0.1 -Total Square Cm 0.5 -Tunneling No -Undermining/Tunneling No -Circular Undermining No -Classification - Brooks Grading ( Grade 1 Diabetic Ulcer) -Exudate Amt Small (1-33%) -Exudate Type Serosanguineous -Wound Margin Distinct, Outline Attached -Granulation Amt Large (67-100%) -Granulation Quality [place] -Slough/Fibrin Yes -Necrosis Amt Small (1-33%) -Necrotic Tissue Type Adherent Slough -Structure Exposed N/A -Texture (Martha-wound Skin Appearance) Assessed -Moisture (Martha-wound Skin Appearance Dry/Scaly ) -Color (Martha-wound Skin Appearance) Assessed -Temperature (Martha-wound Skin No Abnormality Appearance) (Pt Warm) -Tenderness on Palpation (Martha-wound No Skin Appearance) -Ulcer Cleansing Rinsed/ Irrigated with Saline -Foul Odor after Cleansing No -Anesthetic Used 5% Lidocaine Gel 10/06/17 15:23 Wound Center by Michelle Hu dressing left on RLE as ordered will remove dressing Initialized on 10/06/17 15:23 - END OF NOTE WC - Nurse 2 - General Ulcer CM Notes Start: 10/06/17 15:14 Freq: Status: Active Protocol: Activity Type Activity Date Activity User E-Sign Co-Sign Detail Recorded Client Recorded Date Recorded By Document 10/06/17 16:04 [id number] 10/06/17 16:19 TM 10/06/17 16:04 Wound Center Nurse 2 [Procedure/Treatment] #14- LT POPLITEAL FOLD -Time 16:04 -Correct Patient Yes -Correct Side, Site, Position Yes -Correct Procedure Yes -Procedure Performed Yes -Post Debridement Size (cm) - Length 0 -Post Debridement Size (cm) - Width 0 -Post Debridement Size (cm) - Depth 0 -Total Square Cm 0 -Wound/Ulcer Outcome Healed- Epithelialized -Ulcer Cleansing hibiclens -Foul Odor after Cleansing No -Bioengineered Tissue No -Bleeding Controlled with NA -Treatment Response Procedure Tolerated Well #15 Right Heel -Time 16:06 -Correct Patient Yes -Correct Side, Site, Position Yes -Correct Procedure Yes -Procedure Performed Yes -Post Debridement Size (cm) - Length 4.0 -Post Debridement Size (cm) - Width 5.2 -Post Debridement Size (cm) - Depth 0.4 -Total Square Cm 20.80 -Wound/Ulcer Outcome Not Healed -Ulcer Cleansing hibiclens -Foul Odor after Cleansing No -Bioengineered Tissue No -Bleeding Controlled with NA -Other leave sutures intact cover with adaptic -Treatment Response Procedure Tolerated Well #12 R LE Cluster -Time 16:07 -Correct Patient Yes -Correct Side, Site, Position Yes -Correct Procedure Yes -Procedure Performed Yes -Post Debridement Size (cm) - Length 0 -Post Debridement Size (cm) - Width 0 -Post Debridement Size (cm) - Depth 0 -Total Square Cm 0 -Wound/Ulcer Outcome Healed- Epithelialized -Ulcer Cleansing hibclens -Foul Odor after Cleansing No -Bioengineered Tissue No -Bleeding Controlled with NA #11 RIGHT PROXIMAL LE -Time 16:08 -Correct Patient Yes -Correct Side, Site, Position Yes -Correct Procedure Yes -Procedure Performed Yes -Post Debridement Size (cm) - Length 0 -Post Debridement Size (cm) - Width 0 -Post Debridement Size (cm) - Depth 0 -Total Square Cm 0 -Wound/Ulcer Outcome Healed- Epithelialized -Ulcer Cleansing hibiclens -Foul Odor after Cleansing No -Bioengineered Tissue No -Bleeding Controlled with NA #10- RIGHT LATERAL -Time 16:09 -Correct Patient Yes -Correct Side, Site, Position Yes -Correct Procedure Yes -Procedure Performed Yes -Post Debridement Size (cm) - Length 0 -Post Debridement Size (cm) - Width 0 -Post Debridement Size (cm) - Depth 0 -Total Square Cm 0 -Wound/Ulcer Outcome Healed- Epithelialized -Ulcer Cleansing hibiclens -Foul Odor after Cleansing No -Bioengineered Tissue No -Bleeding Controlled with NA #9 RIGHt norman -Time 16:10 -Correct Patient Yes -Correct Side, Site, Position Yes -Correct Procedure Yes -Procedure Performed Yes -Post Debridement Size (cm) - Length 0 -Post Debridement Size (cm) - Width 0 -Post Debridement Size (cm) - Depth 0 -Total Square Cm 0 -Wound/Ulcer Outcome Healed- Epithelialized -Ulcer Cleansing hibiclens -Foul Odor after Cleansing No -Bioengineered Tissue No -Bleeding Controlled with NA #6 R Med Lower Leg -Time 16:10 -Correct Patient Yes -Correct Side, Site, Position Yes -Correct Procedure Yes -Procedure Performed Yes -Post Debridement Size (cm) - Length 0 -Post Debridement Size (cm) - Width 0 -Post Debridement Size (cm) - Depth 0 -Total Square Cm 0 -Wound/Ulcer Outcome Healed- Epithelialized -Ulcer Cleansing hibiclens -Foul Odor after Cleansing No -Bioengineered Tissue No -Bleeding Controlled with NA #16 Right Foot-Toes -Time 16:13 -Correct Patient Yes -Correct Side, Site, Position Yes -Correct Procedure Yes -Procedure Performed Yes -Post Debridement Size (cm) - Length 1.5 -Post Debridement Size (cm) - Width 0.2 -Post Debridement Size (cm) - Depth 0.1 -Total Square Cm 0.30 -Wound/Ulcer Outcome Not Healed -Ulcer Cleansing hibiclens -Foul Odor after Cleansing No -Bioengineered Tissue No -Bleeding Controlled with NA #1 BTK Left Stump cluster -Time 16:14 -Correct Patient Yes -Correct Side, Site, Position Yes -Correct Procedure Yes -Procedure Performed Yes -Post Debridement Size (cm) - Length 0 -Post Debridement Size (cm) - Width 0 -Post Debridement Size (cm) - Depth 0 -Total Square Cm 0 -Wound/Ulcer Outcome Healed- Epithelialized -Ulcer Cleansing hibiclens -Foul Odor after Cleansing No -Bioengineered Tissue No -Bleeding Controlled with NA [See Physician Procedure note for Specifics] Pain Scale: 0-10 Numeric [Pain] -Is Patient Pain Free? Yes Musculoskeletal: No Tenderness to Palpation of Joints or Extremities, Muscle Wasting, - - left below knee amputaton Neurological: - - lack of epicritic sensation via light touch bilateral lower extremities Psych/Mental Status: Normal Affect, Appropriate Debridement Note Post-Debridement Measurements/Treatment WC - Nurse 2 - General Ulcer CM Notes Start: 10/06/17 15:14 Freq: Status: Active Protocol: Activity Type Activity Date Activity User E-Sign Co-Sign Detail Recorded Client Recorded Date Recorded By Document 10/06/17 16:04 [id number] 10/06/17 16:19 10/06/17 16:04 Wound Center Nurse 2 #14- LT POPLITEAL FOLD -Time 16:04 -Correct Patient Yes -Correct Side, Site, Position Yes -Correct Procedure Yes -Procedure Performed Yes -Post Debridement Size (cm) - Length 0 -Post Debridement Size (cm) - Width 0 -Post Debridement Size (cm) - Depth 0 -Total Square Cm 0 -Wound/Ulcer Outcome Healed- Epithelialized -Ulcer Cleansing hibiclens -Foul Odor after Cleansing No -Bioengineered Tissue No -Bleeding Controlled with NA -Treatment Response Procedure Tolerated Well #15 Right Heel -Time 16:06 -Correct Patient Yes -Correct Side, Site, Position Yes -Correct Procedure Yes -Procedure Performed Yes -Post Debridement Size (cm) - Length 4.0 -Post Debridement Size (cm) - Width 5.2 -Post Debridement Size (cm) - Depth 0.4 -Total Square Cm 20.80 -Wound/Ulcer Outcome Not Healed -Ulcer Cleansing hibiclens -Foul Odor after Cleansing No -Bioengineered Tissue No -Bleeding Controlled with NA -Other leave sutures intact cover with adaptic -Treatment Response Procedure Tolerated Well #12 R LE Cluster -Time 16:07 -Correct Patient Yes -Correct Side, Site, Position Yes -Correct Procedure Yes -Procedure Performed Yes -Post Debridement Size (cm) - Length 0 -Post Debridement Size (cm) - Width 0 -Post Debridement Size (cm) - Depth 0 -Total Square Cm 0 -Wound/Ulcer Outcome Healed- Epithelialized -Ulcer Cleansing hibclens -Foul Odor after Cleansing No -Bioengineered Tissue No -Bleeding Controlled with NA #11 RIGHT PROXIMAL LE -Time 16:08 -Correct Patient Yes -Correct Side, Site, Position Yes -Correct Procedure Yes -Procedure Performed Yes -Post Debridement Size (cm) - Length 0 -Post Debridement Size (cm) - Width 0 -Post Debridement Size (cm) - Depth 0 -Total Square Cm 0 -Wound/Ulcer Outcome Healed- Epithelialized -Ulcer Cleansing hibiclens -Foul Odor after Cleansing No -Bioengineered Tissue No -Bleeding Controlled with NA #10- RIGHT LATERAL -Time 16:09 -Correct Patient Yes -Correct Side, Site, Position Yes -Correct Procedure Yes -Procedure Performed Yes -Post Debridement Size (cm) - Length 0 -Post Debridement Size (cm) - Width 0 -Post Debridement Size (cm) - Depth 0 -Total Square Cm 0 -Wound/Ulcer Outcome Healed- Epithelialized -Ulcer Cleansing hibiclens -Foul Odor after Cleansing No -Bioengineered Tissue No -Bleeding Controlled with NA #9 RIGHt norman -Time 16:10 -Correct Patient Yes -Correct Side, Site, Position Yes -Correct Procedure Yes -Procedure Performed Yes -Post Debridement Size (cm) - Length 0 -Post Debridement Size (cm) - Width 0 -Post Debridement Size (cm) - Depth 0 -Total Square Cm 0 -Wound/Ulcer Outcome Healed- Epithelialized -Ulcer Cleansing hibiclens -Foul Odor after Cleansing No -Bioengineered Tissue No -Bleeding Controlled with NA #6 R Med Lower Leg -Time 16:10 -Correct Patient Yes -Correct Side, Site, Position Yes -Correct Procedure Yes -Procedure Performed Yes -Post Debridement Size (cm) - Length 0 -Post Debridement Size (cm) - Width 0 -Post Debridement Size (cm) - Depth 0 -Total Square Cm 0 -Wound/Ulcer Outcome Healed- Epithelialized -Ulcer Cleansing hibiclens -Foul Odor after Cleansing No -Bioengineered Tissue No -Bleeding Controlled with NA #16 Right Foot-Toes -Time 16:13 -Correct Patient Yes -Correct Side, Site, Position Yes -Correct Procedure Yes -Procedure Performed Yes -Post Debridement Size (cm) - Length 1.5 -Post Debridement Size (cm) - Width 0.2 -Post Debridement Size (cm) - Depth 0.1 -Total Square Cm 0.30 -Wound/Ulcer Outcome Not Healed -Ulcer Cleansing hibiclens -Foul Odor after Cleansing No -Bioengineered Tissue No -Bleeding Controlled with NA #1 BTK Left Stump cluster -Time 16:14 -Correct Patient Yes -Correct Side, Site, Position Yes -Correct Procedure Yes -Procedure Performed Yes -Post Debridement Size (cm) - Length 0 -Post Debridement Size (cm) - Width 0 -Post Debridement Size (cm) - Depth 0 -Total Square Cm 0 -Wound/Ulcer Outcome Healed- Epithelialized -Ulcer Cleansing hibiclens -Foul Odor after Cleansing No -Bioengineered Tissue No -Bleeding Controlled with NA Pain Scale: 0-10 Numeric Is Patient Pain Free? Yes No debridement was completed today - The graft is incorporating and will be debrided next Assessment/Plan Active Problems Complete below knee amputation of left lower extremity (Chronic) Ulcer of right foot with fat layer exposed (Chronic) PAOD (peripheral arterial occlusive disease) (Chronic) Ulcer of right foot with necrosis of muscle (Chronic) BKA stump complication (Chronic) Type 2 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with diabetic polyneuropathy (Chronic) Venous insufficiency (Chronic) Lymphedema (Chronic) Edema of both legs (Chronic) Assessment: ulcer right forefoot - returned. Ulcer left stump - remains healed. Ulcers right leg, left leg - remain healed. right heel ulcer muscle involved and exposed fascia without infection noted today; s/p surgical debridement and application of advance wound care products (amniofil and epicord ). Lymphedema. Chronic lower extremity edema and venous insufficiency. Morbid obesity. Type 2 diabetes uncontrolled with peripheral neuropathy. CKD. Hypertension. Left below-knee amputation. Malnutrition. Delayed wound healing. Nonadherence to treatment plan Plan: I reviewed and discussed his case and continued care plan recommendations. His ulcer sites were evaluated as noted in the clinical panel. His advance product is incorporating well. The site was cleansed. The sutures will be removed next week and wound debridement is planned. A dressing was applied today with additional compression dressings; to continue dressing changes with home health. Negative pressure therapy will be considered next week. He had a previous THEO placed and did well with this. Preauthorization will be initiated. To change all the ulcer sites with Guera with the exception of betadine / gauze application to the right interdigital maceration site. It is noted he completed a PICC line course of antibiotics while in the hospital under the management of infectious disease and his most recent calcaneus bone biopsy was negative for osteomyelitis. I recommend utilizing left 3M to 2L dressing which is applied today from the distal right foot to thigh as well as his left below knee amputation stump site to the thigh. It is noted the skin is very friable and he is high risk for continued ulcers. He is in a wheel chair with no leg rests and his legs are dangling idle. I am concerned of ongoing fluid accumulation; he was advised to get compliant with the wheel chair leg rests and to resume his compression pumps at home. He admits he has not used his compression pumps one time since he has returned home. He is now considered on complex care due to inability to fully adhere to the treatment program. CircAid thigh-high were ordered for the right lower extremity; he understands this is a graduated compression device. It is noted he had previous vascular surgery intervention. He had stents placed to improve arterial perfusion. He will follow-up with him as needed at this point. His noninvasive vascular arterial studies were reviewed and his COY is 1.05 on the right lower extremity. This will be monitored. To continue with nutritional supplementation, Glucerna. His diabetes is uncontrolled and he understands he is at risk for limb loss. To continue with proper glycemic control medical management to optimize healing. I answered all his questions. To return to clinic in one week or call sooner if questions or concerns; Dr. Gusman is covering next week.
[2017-10-14 17:19] VITALS: BP 111/66; PULSE 87; RESP 18; TEMP 36
--- NOTE | 2017-10-14 17:44 | PN.PCM_ITS ---
(1) Ulcer of right foot with fat layer exposed Status: Chronic Current Visit: Yes Code(s): L97.512 - Non-pressure chronic ulcer of other part of right foot with fat layer exposed (2) Complete below knee amputation of left lower extremity Status: Chronic Current Visit: Yes Code(s): S88.112A - Complete traumatic amputation at level between knee and ankle, left lower leg, initial encounter (3) Ulcer of right foot with necrosis of muscle Status: Chronic Current Visit: No Code(s): L97.513 - Non-pressure chronic ulcer of other part of right foot with necrosis of muscle (4) Chronic kidney disease (CKD) Status: Chronic Current Visit: No Qualifiers: Code(s): N18.9 - Chronic kidney disease, unspecified (5) BKA stump complication Status: Chronic Current Visit: Yes Code(s): T87.9 - Unspecified complications of amputation stump (6) Type 2 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with diabetic polyneuropathy Status: Chronic Current Visit: No Code(s): E11.42 - Type 2 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with diabetic polyneuropathy (7) Venous insufficiency Status: Chronic Current Visit: Yes (8) Lymphedema Status: Chronic Current Visit: Yes Code(s): I89.0 - Lymphedema, not elsewhere classified (9) Edema of both legs Status: Chronic Current Visit: Yes Code(s): R60.0 - Localized edema Type of Wound Date of Service: 10/14/17 Chief Complaint: right foot ulcer healed and now reopened. right heel ulcer s/ p surgical intervention. Right leg ulcer remains healed. Left leg ulcer remains healed History of Wound: 57-year-old white male returns to clinic for follow-up of bilateral leg ulcers and right foot ulcers. He denies fever, chill, nausea, vomiting, loss of appetite. He has continued lower extremity swelling has been recently better controlled. He underwent surgical debridement application of advanced wound care products, Amniofil and epi fix September 14, 2017. He has since returned home and denies using his compression pumps at any time. He also presents today without any compression dressing to his left leg. He is scheduled to get his pre-prosthetic strength dressing from the antibiotic the left lower extremity this upcoming week. He has kept pressure off of his wound heal site on the right lower extremity. Progress of Wound: improving. sutures still intact - Physical Exam Vital Signs Temp Pulse Resp BP 97.7 F L 92 18 134/73 H 10/06/17 15:14 10/06/17 15:14 10/06/17 15:14 10/06/17 15:14 General: Alert, Oriented x3, Cooperative Extremities: No cyanosis, Capillary Refill Less than 3 Seconds, No Calf Tenderness, Diminished Peripheral Pulses, Edema - Lymphedema bilateral lower extremities Skin: Ulcer/ Wound - There is no purulence, no extending or streaking erythema, no malodor, or any other signs of acute infection. Sutures continued to remain intact to the right heel with the advanced wound care products in place and incorporating., - - Skin continues to be atrophic. There is some serous weeping that continues with continued interdigital maceration. Musculoskeletal: No Tenderness to Palpation of Joints or Extremities, - - Left BKA Neurological: - - Absent epicritic sensation Psych/Mental Status: Normal Affect, Appropriate Debridement Note Post-Debridement Measurements/Treatment WC - Nurse 2 - General Ulcer CM Notes Start: 10/06/17 15:14 Freq: Status: Active Protocol: Activity Type Activity Date Activity User E-Sign Co-Sign Detail Recorded Client Recorded Date Recorded By Document 10/06/17 16:04 [id number] 10/06/17 16:19 TM 10/06/17 16:04 Wound Center Nurse 2 #14- LT POPLITEAL FOLD -Time 16:04 -Correct Patient Yes -Correct Side, Site, Position Yes -Correct Procedure Yes -Procedure Performed Yes -Post Debridement Size (cm) - Length 0 -Post Debridement Size (cm) - Width 0 -Post Debridement Size (cm) - Depth 0 -Total Square Cm 0 -Wound/Ulcer Outcome Healed- Epithelialized -Ulcer Cleansing hibiclens -Foul Odor after Cleansing No -Bioengineered Tissue No -Bleeding Controlled with NA -Treatment Response Procedure Tolerated Well #15 Right Heel -Time 16:06 -Correct Patient Yes -Correct Side, Site, Position Yes -Correct Procedure Yes -Procedure Performed Yes -Post Debridement Size (cm) - Length 4.0 -Post Debridement Size (cm) - Width 5.2 -Post Debridement Size (cm) - Depth 0.4 -Total Square Cm 20.80 -Wound/Ulcer Outcome Not Healed -Ulcer Cleansing hibiclens -Foul Odor after Cleansing No -Bioengineered Tissue No -Bleeding Controlled with NA -Other leave sutures intact cover with adaptic -Treatment Response Procedure Tolerated Well #12 R LE Cluster -Time 16:07 -Correct Patient Yes -Correct Side, Site, Position Yes -Correct Procedure Yes -Procedure Performed Yes -Post Debridement Size (cm) - Length 0 -Post Debridement Size (cm) - Width 0 -Post Debridement Size (cm) - Depth 0 -Total Square Cm 0 -Wound/Ulcer Outcome Healed- Epithelialized -Ulcer Cleansing hibclens -Foul Odor after Cleansing No -Bioengineered Tissue No -Bleeding Controlled with NA #11 RIGHT PROXIMAL LE -Time 16:08 -Correct Patient Yes -Correct Side, Site, Position Yes -Correct Procedure Yes -Procedure Performed Yes -Post Debridement Size (cm) - Length 0 -Post Debridement Size (cm) - Width 0 -Post Debridement Size (cm) - Depth 0 -Total Square Cm 0 -Wound/Ulcer Outcome Healed- Epithelialized -Ulcer Cleansing hibiclens -Foul Odor after Cleansing No -Bioengineered Tissue No -Bleeding Controlled with NA #10- RIGHT LATERAL -Time 16:09 -Correct Patient Yes -Correct Side, Site, Position Yes -Correct Procedure Yes -Procedure Performed Yes -Post Debridement Size (cm) - Length 0 -Post Debridement Size (cm) - Width 0 -Post Debridement Size (cm) - Depth 0 -Total Square Cm 0 -Wound/Ulcer Outcome Healed- Epithelialized -Ulcer Cleansing hibiclens -Foul Odor after Cleansing No -Bioengineered Tissue No -Bleeding Controlled with NA #9 RIGHt norman -Time 16:10 -Correct Patient Yes -Correct Side, Site, Position Yes -Correct Procedure Yes -Procedure Performed Yes -Post Debridement Size (cm) - Length 0 -Post Debridement Size (cm) - Width 0 -Post Debridement Size (cm) - Depth 0 -Total Square Cm 0 -Wound/Ulcer Outcome Healed- Epithelialized -Ulcer Cleansing hibiclens -Foul Odor after Cleansing No -Bioengineered Tissue No -Bleeding Controlled with NA #6 R Med Lower Leg -Time 16:10 -Correct Patient Yes -Correct Side, Site, Position Yes -Correct Procedure Yes -Procedure Performed Yes -Post Debridement Size (cm) - Length 0 -Post Debridement Size (cm) - Width 0 -Post Debridement Size (cm) - Depth 0 -Total Square Cm 0 -Wound/Ulcer Outcome Healed- Epithelialized -Ulcer Cleansing hibiclens -Foul Odor after Cleansing No -Bioengineered Tissue No -Bleeding Controlled with NA #16 Right Foot-Toes -Time 16:13 -Correct Patient Yes -Correct Side, Site, Position Yes -Correct Procedure Yes -Procedure Performed Yes -Post Debridement Size (cm) - Length 1.5 -Post Debridement Size (cm) - Width 0.2 -Post Debridement Size (cm) - Depth 0.1 -Total Square Cm 0.30 -Wound/Ulcer Outcome Not Healed -Ulcer Cleansing hibiclens -Foul Odor after Cleansing No -Bioengineered Tissue No -Bleeding Controlled with NA #1 BTK Left Stump cluster -Time 16:14 -Correct Patient Yes -Correct Side, Site, Position Yes -Correct Procedure Yes -Procedure Performed Yes -Post Debridement Size (cm) - Length 0 -Post Debridement Size (cm) - Width 0 -Post Debridement Size (cm) - Depth 0 -Total Square Cm 0 -Wound/Ulcer Outcome Healed- Epithelialized -Ulcer Cleansing hibiclens -Foul Odor after Cleansing No -Bioengineered Tissue No -Bleeding Controlled with NA Pain Scale: 0-10 Numeric Is Patient Pain Free? Yes No debridement was completed today Assessment/Plan Active Problems Complete below knee amputation of left lower extremity (Chronic) Ulcer of right foot with fat layer exposed (Chronic) PAOD (peripheral arterial occlusive disease) (Chronic) Ulcer of right foot with necrosis of muscle (Chronic) BKA stump complication (Chronic) Type 2 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with diabetic polyneuropathy (Chronic) Venous insufficiency (Chronic) Lymphedema (Chronic) Edema of both legs (Chronic) Assessment: ulcer right forefoot - returned. Ulcer left stump - remains healed. Ulcers right leg, left leg - remain healed. right heel ulcer muscle involved and exposed fascia without infection noted today; s/p surgical debridement and application of advance wound care products (amniofil and epicord ). Lymphedema. Chronic lower extremity edema and venous insufficiency. Morbid obesity. Type 2 diabetes uncontrolled with peripheral neuropathy. CKD. Hypertension. Left below-knee amputation. Malnutrition. Delayed wound healing. Nonadherence to treatment plan Plan: Patient was seen today in the absence of Dr. Lux. His ulcer sites were evaluated as noted in the clinical panel. His advance product continues to incorporate well. The site was cleansed. The sutures were left intact for one more week so Dr. Lux could re-evaluate before removing. A dressing was applied today with additional compression dressings; to continue dressing changes with home health. Negative pressure therapy will be considered next week , however we are still waiting approval from [facility]. Betadine / gauze application to the right interdigital maceration site. It is noted he completed a PICC line course of antibiotics while in the hospital under the management of infectious disease and his most recent calcaneus bone biopsy was negative for osteomyelitis. Patient to continue left 3M to 2L dressing which is applied today from the distal right foot to thigh as well as his left below knee amputation stump site to the thigh. It is noted the skin is very friable and he is high risk for continued ulcers. He is in a wheel chair with no leg rests and his legs are dangling idle. I am concerned of ongoing fluid accumulation; he was advised to get compliant with the wheel chair leg rests and to resume his compression pumps at home. He admits he has not used his compression pumps one time since he has returned home. He is now considered on complex care due to inability to fully adhere to the treatment program. CircAid thigh-high were ordered for the right lower extremity; he understands this is a graduated compression device. It is noted he had previous vascular surgery intervention. He had stents placed to improve arterial perfusion. He will follow-up with him as needed at this point. His noninvasive vascular arterial studies were reviewed and his COY is 1.05 on the right lower extremity. This will be monitored. To continue with nutritional supplementation, Glucerna. His diabetes is uncontrolled and he understands he is at risk for limb loss. To continue with proper glycemic control medical management to optimize healing. I answered all his questions. To return to clinic in one week or call sooner if questions or concerns.
[2017-10-20 10:38] VITALS: BP 148/81; PULSE 96; RESP 18; TEMP 36.4
--- NOTE | 2017-10-20 12:48 | PCM.WC.PN ---
(1) Ulcer of right foot with necrosis of muscle Status: Chronic Current Visit: Yes Code(s): L97.513 - Non-pressure chronic ulcer of other part of right foot with necrosis of muscle (2) Ulcer of right foot with fat layer exposed Status: Chronic Current Visit: Yes Code(s): L97.512 - Non-pressure chronic ulcer of other part of right foot with fat layer exposed (3) Complete below knee amputation of left lower extremity Status: Chronic Current Visit: Yes Code(s): S88.112A - Complete traumatic amputation at level between knee and ankle, left lower leg, initial encounter (4) Chronic kidney disease (CKD) Status: Chronic Current Visit: No Qualifiers: Code(s): N18.9 - Chronic kidney disease, unspecified (5) BKA stump complication Status: Chronic Current Visit: Yes Code(s): T87.9 - Unspecified complications of amputation stump (6) Type 2 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with diabetic polyneuropathy Status: Chronic Current Visit: Yes Code(s): E11.42 - Type 2 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with diabetic polyneuropathy (7) Venous insufficiency Status: Chronic Current Visit: Yes Code(s): I87.2 - Venous insufficiency (chronic) (peripheral) (8) Lymphedema Status: Chronic Current Visit: Yes Code(s): I89.0 - Lymphedema, not elsewhere classified (9) Edema of both legs Status: Chronic Current Visit: Yes Code(s): R60.0 - Localized edema Type of Wound Date of Service: 10/20/17 Chief Complaint: right foot ulcer right second plantar toe and right fourth distal toe. right heel ulcer s/p surgical intervention. Right leg ulcer new with fat layer exposed. New right leg blister lateral History of Wound: 57-year-old white male returns to clinic for follow-up of bilateral leg ulcers and right foot ulcers. He denies fever, chill, nausea, vomiting, loss of appetite. He underwent surgical debridement application of advanced wound care products, Amniofil and epi fix September 14, 2017. He has since returned home and relates he uses his compression pumps 1-2 times daily. He also presents today with a shrink dressing to his left leg. His left leg continues to dangle in a dependent position and he refuses to use a leg rest part of his wheelchair as previously discussed. He complains of a new blister and drainage to his right leg. His swelling continues. Progress of Wound: improving right heel. New right foot and leg ulcers and blister - Physical Exam Vital Signs Temp Pulse Resp BP 97.5 F L 96 18 148/81 H 10/20/17 10:38 10/20/17 10:38 10/20/17 10:38 10/20/17 10:38 General: Alert Extremities: No cyanosis, Capillary Refill Less than 3 Seconds, No Calf Tenderness - Negative Harry and Badillo right, Diminished Peripheral Pulses, Edema, - - Left below-knee amputation Skin: Ulcer/ Wound - No purulence, no erythema, skin, no odor, no acute infection. There is no longer any exposed deep tissue, eschar, or bone to the right heel. There is new skin discontinuity to the right leg and digits the right foot. His skin is hairless atrophic. There is no odor. Wound Measurements and Assessment WC - Nurse 1 - General Ulcer Measurement Start: 10/06/17 15:14 Freq: Status: Active Protocol: Activity Type Activity Date Activity User E-Sign Co-Sign Detail Recorded Client Recorded Date Recorded By Document 10/20/17 10:38 [id number] 10/20/17 10:55 RB 10/20/17 10:38 Wound Center Nurse 1 [Ulcer Assessment] #15 Right Heel -Combined with other wound No -Current Size (cm) - Length 4.5 -Current Size (cm) - Width 5.5 -Current Size (cm) - Depth 0.1 -Total Square Cm 24.75 -Photo Taken No -Tunneling No -Undermining/Tunneling No -Circular Undermining No -Exudate Amt Small (1-33%) -Exudate Type Serosanguineous -Wound Margin Distinct, Outline Attached -Granulation Amt Medium (34-66%) -Granulation Quality [place] -Slough/Fibrin Yes -Necrosis Amt Small (1-33%) -Necrotic Tissue Type Adherent Slough -Structure Exposed N/A -Texture (Martha-wound Skin Appearance) Assessed -Moisture (Martha-wound Skin Appearance Assessed ) -Color (Martha-wound Skin Appearance) Assessed -Temperature (Martha-wound Skin No Abnormality Appearance) (Pt Warm) -Tenderness on Palpation (Martha-wound No Skin Appearance) -Ulcer Cleansing Rinsed/ Irrigated with Saline -Foul Odor after Cleansing No -Anesthetic Used 4% Lidocaine Solution #16 Right Foot-Toes -Combined with other wound No -Current Size (cm) - Length 7 -Current Size (cm) - Width 4 -Current Size (cm) - Depth 0.1 -Total Square Cm 28 -Photo Taken No -Tunneling No -Undermining/Tunneling No -Circular Undermining No -Classification - Thickness Full Thickness without Exposed Support Structure -Exudate Amt Small (1-33%) -Exudate Type Serosanguineous -Wound Margin Indistinct, Non -Visible -Granulation Amt Medium (34-66%) -Granulation Quality [place] -Slough/Fibrin Yes -Necrosis Amt Medium (34-66%) -Necrotic Tissue Type Adherent Slough -Structure Exposed N/A -Texture (Martha-wound Skin Appearance) Assessed Localized Edema -Moisture (Martha-wound Skin Appearance Assessed ) Maceration -Color (Martha-wound Skin Appearance) Assessed -Temperature (Martha-wound Skin No Abnormality Appearance) (Pt Warm) -Tenderness on Palpation (Martha-wound No Skin Appearance) -Ulcer Cleansing Rinsed/ Irrigated with Saline -Foul Odor after Cleansing No -Anesthetic Used 4% Lidocaine Solution [Edema Assessment] -Lower Limb Edema Present Yes -Left Calf (cm) 38.5 -Left Ankle (cm) 29.5 WC - Nurse 2 - General Ulcer CM Notes Start: 10/06/17 15:14 Freq: Status: Active Protocol: Activity Type Activity Date Activity User E-Sign Co-Sign Detail Recorded Client Recorded Date Recorded By Document 10/20/17 11:17 [email or web address] [id number] 10/20/17 11:24 10/20/17 11:17 Wound Center Nurse 2 [Procedure/Treatment] 18-right plantar foot -Time 11:24 -Correct Patient Yes -Correct Side, Site, Position Yes -Correct Procedure Yes -Procedure Performed Yes -Type of Procedure Debridement -Clinical Debridement Subcutaneous -Post Debridement Size (cm) - Length 0.5 -Post Debridement Size (cm) - Width 0.7 -Post Debridement Size (cm) - Depth 0.1 -Total Square Cm 0.35 -Wound/Ulcer Outcome Not Healed -Ulcer Cleansing Rinsed/ Irrigated with Saline -Foul Odor after Cleansing No -Bioengineered Tissue No -Bleeding Controlled with Pressure -Treatment Response Procedure Tolerated Well #15 Right Heel -Time 11:20 -Correct Patient Yes -Correct Side, Site, Position Yes -Correct Procedure Yes -Procedure Performed Yes -Type of Procedure Debridement -Clinical Debridement Subcutaneous -Post Debridement Size (cm) - Length 4.7 -Post Debridement Size (cm) - Width 5.5 -Post Debridement Size (cm) - Depth 0.5 -Total Square Cm 25.85 -Wound/Ulcer Outcome Not Healed -Ulcer Cleansing Rinsed/ Irrigated with Saline -Foul Odor after Cleansing No -Bioengineered Tissue No -Bleeding Controlled with Pressure -Treatment Response Procedure Tolerated Well #17 RIGHt norman -Time 11:22 -Correct Patient Yes -Correct Side, Site, Position Yes -Correct Procedure Yes -Procedure Performed Yes -Type of Procedure Debridement -Clinical Debridement Subcutaneous -Post Debridement Size (cm) - Length 0.8 -Post Debridement Size (cm) - Width 0.8 -Post Debridement Size (cm) - Depth 0.1 -Total Square Cm 0.64 -Wound/Ulcer Outcome Not Healed -Ulcer Cleansing Rinsed/ Irrigated with Saline -Foul Odor after Cleansing No -Bioengineered Tissue No -Bleeding Controlled with Pressure -Treatment Response Procedure Tolerated Well #16 Right Foot-Toes -Time 11:21 -Correct Patient Yes -Correct Side, Site, Position Yes -Correct Procedure Yes -Procedure Performed Yes -Type of Procedure Debridement -Clinical Debridement Subcutaneous -Post Debridement Size (cm) - Length 0.4 -Post Debridement Size (cm) - Width 0.9 -Post Debridement Size (cm) - Depth 0.1 -Total Square Cm 0.36 -Wound/Ulcer Outcome Not Healed -Ulcer Cleansing Rinsed/ Irrigated with Saline -Foul Odor after Cleansing No -Bioengineered Tissue No -Bleeding Controlled with Pressure -Treatment Response Procedure Tolerated Well [See Physician Procedure note for Specifics] Pain Scale: 0-10 Numeric [Pain] -Is Patient Pain Free? Yes Musculoskeletal: No Tenderness to Palpation of Joints or Extremities, Muscle Wasting Neurological: - - Lack of epicritic sensation light touch right lower extremity Psych/Mental Status: Normal Affect, Appropriate Debridement Note Post-Debridement Measurements/Treatment WC - Nurse 2 - General Ulcer CM Notes Start: 10/06/17 15:14 Freq: Status: Active Protocol: Activity Type Activity Date Activity User E-Sign Co-Sign Detail Recorded Client Recorded Date Recorded By Document 10/06/17 16:04 [id number] 10/06/17 16:19 Document 10/14/17 18:25 [id number] 10/14/17 18:29 Document 10/20/17 11:17 [id number] 10/20/17 11:24 10/06/17 10/14/17 10/20/17 16:04 18:25 11:17 Wound Center Nurse 2 18-right plantar foot -Time 11:24 -Correct Patient Yes -Correct Side, Site, Position Yes -Correct Procedure Yes -Procedure Performed Yes -Type of Procedure Debridement -Clinical Debridement Subcutaneous -Post Debridement Size (cm) - Length 0.5 -Post Debridement Size (cm) - Width 0.7 -Post Debridement Size (cm) - Depth 0.1 -Total Square Cm 0.35 -Wound/Ulcer Outcome Not Healed -Ulcer Cleansing Rinsed/ Irrigated with Saline -Foul Odor after Cleansing No -Bioengineered Tissue No -Bleeding Controlled with Pressure -Treatment Response Procedure Tolerated Well #14- LT POPLITEAL FOLD -Time 16:04 -Correct Patient Yes -Correct Side, Site, Position Yes -Correct Procedure Yes -Procedure Performed Yes -Post Debridement Size (cm) - Length 0 -Post Debridement Size (cm) - Width 0 -Post Debridement Size (cm) - Depth 0 -Total Square Cm 0 -Wound/Ulcer Outcome Healed- Epithelialized -Ulcer Cleansing hibiclens -Foul Odor after Cleansing No -Bioengineered Tissue No -Bleeding Controlled with NA -Treatment Response Procedure Tolerated Well #15 Right Heel -Time 16:06 18:25 11:20 -Correct Patient Yes Yes Yes -Correct Side, Site, Position Yes Yes Yes -Correct Procedure Yes Yes Yes -Procedure Performed Yes Yes Yes -Type of Procedure Debridement -Clinical Debridement Subcutaneous -Post Debridement Size (cm) - Length 4.0 4.2 4.7 -Post Debridement Size (cm) - Width 5.2 5.5 5.5 -Post Debridement Size (cm) - Depth 0.4 0.3 0.5 -Total Square Cm 20.80 23.10 25.85 -Wound/Ulcer Outcome Not Healed Not Healed Not Healed -Ulcer Cleansing hibiclens Rinsed/ Rinsed/ Irrigated with Irrigated with Saline Saline -Foul Odor after Cleansing No No No -Bioengineered Tissue No No No -Bleeding Controlled with NA NA Pressure Pressure -Other leave sutures NO DEBRIDEMENT intact cover TODAY LEAVE with adaptic SUTURES INTACT -Treatment Response Procedure Procedure Procedure Tolerated Well Tolerated Well Tolerated Well #12 R LE Cluster -Time 16:07 -Correct Patient Yes -Correct Side, Site, Position Yes -Correct Procedure Yes -Procedure Performed Yes -Post Debridement Size (cm) - Length 0 -Post Debridement Size (cm) - Width 0 -Post Debridement Size (cm) - Depth 0 -Total Square Cm 0 -Wound/Ulcer Outcome Healed- Epithelialized -Ulcer Cleansing hibclens -Foul Odor after Cleansing No -Bioengineered Tissue No -Bleeding Controlled with NA #11 RIGHT PROXIMAL LE -Time 16:08 -Correct Patient Yes -Correct Side, Site, Position Yes -Correct Procedure Yes -Procedure Performed Yes -Post Debridement Size (cm) - Length 0 -Post Debridement Size (cm) - Width 0 -Post Debridement Size (cm) - Depth 0 -Total Square Cm 0 -Wound/Ulcer Outcome Healed- Epithelialized -Ulcer Cleansing hibiclens -Foul Odor after Cleansing No -Bioengineered Tissue No -Bleeding Controlled with NA #10- RIGHT LATERAL -Time 16:09 -Correct Patient Yes -Correct Side, Site, Position Yes -Correct Procedure Yes -Procedure Performed Yes -Post Debridement Size (cm) - Length 0 -Post Debridement Size (cm) - Width 0 -Post Debridement Size (cm) - Depth 0 -Total Square Cm 0 -Wound/Ulcer Outcome Healed- Epithelialized -Ulcer Cleansing hibiclens -Foul Odor after Cleansing No -Bioengineered Tissue No -Bleeding Controlled with NA #17 RIGHt norman -Time 16:10 11:22 -Correct Patient Yes Yes -Correct Side, Site, Position Yes Yes -Correct Procedure Yes Yes -Procedure Performed Yes Yes -Type of Procedure Debridement -Clinical Debridement Subcutaneous -Post Debridement Size (cm) - Length 0 0.8 -Post Debridement Size (cm) - Width 0 0.8 -Post Debridement Size (cm) - Depth 0 0.1 -Total Square Cm 0 0.64 -Wound/Ulcer Outcome Healed- Not Healed Epithelialized -Ulcer Cleansing hibiclens Rinsed/ Irrigated with Saline -Foul Odor after Cleansing No No -Bioengineered Tissue No No -Bleeding Controlled with NA Pressure -Treatment Response Procedure Tolerated Well #6 R Med Lower Leg -Time 16:10 -Correct Patient Yes -Correct Side, Site, Position Yes -Correct Procedure Yes -Procedure Performed Yes -Post Debridement Size (cm) - Length 0 -Post Debridement Size (cm) - Width 0 -Post Debridement Size (cm) - Depth 0 -Total Square Cm 0 -Wound/Ulcer Outcome Healed- Epithelialized -Ulcer Cleansing hibiclens -Foul Odor after Cleansing No -Bioengineered Tissue No -Bleeding Controlled with NA #16 Right Foot-Toes -Time 16:13 18:26 11:21 -Correct Patient Yes Yes Yes -Correct Side, Site, Position Yes Yes Yes -Correct Procedure Yes Yes Yes -Procedure Performed Yes Yes Yes -Type of Procedure Debridement -Clinical Debridement Subcutaneous -Post Debridement Size (cm) - Length 1.5 11.2 0.4 -Post Debridement Size (cm) - Width 0.2 9.6 0.9 -Post Debridement Size (cm) - Depth 0.1 0.1 0.1 -Total Square Cm 0.30 107.52 0.36 -Wound/Ulcer Outcome Not Healed Not Healed Not Healed -Ulcer Cleansing hibiclens Rinsed/ Rinsed/ Irrigated with Irrigated with Saline Saline -Foul Odor after Cleansing No No No -Bioengineered Tissue No No No -Bleeding Controlled with NA NA Pressure -Other NO DEBRIDEMENT TODAY -Treatment Response Procedure Procedure Tolerated Well Tolerated Well #1 BTK Left Stump cluster -Time 16:14 -Correct Patient Yes -Correct Side, Site, Position Yes -Correct Procedure Yes -Procedure Performed Yes -Post Debridement Size (cm) - Length 0 -Post Debridement Size (cm) - Width 0 -Post Debridement Size (cm) - Depth 0 -Total Square Cm 0 -Wound/Ulcer Outcome Healed- Epithelialized -Ulcer Cleansing hibiclens -Foul Odor after Cleansing No -Bioengineered Tissue No -Bleeding Controlled with NA Pain Scale: 0-10 Numeric Is Patient Pain Free? Yes Yes Yes Assessment/Plan Active Problems Complete below knee amputation of left lower extremity (Chronic) Ulcer of right foot with fat layer exposed (Chronic) PAOD (peripheral arterial occlusive disease) (Chronic) Ulcer of right foot with necrosis of muscle (Chronic) BKA stump complication (Chronic) Type 2 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with diabetic polyneuropathy (Chronic) Venous insufficiency (Chronic) Lymphedema (Chronic) Edema of both legs (Chronic) Assessment: ulcer right forefoot - returned (digits 2 and 4). Ulcers right leg - open now again. Blister right leg. right heel ulcer muscle involved and exposed fascia without infection noted today; s/p surgical debridement and application of advance wound care products (amniofil and epicord). Lymphedema. Chronic lower extremity edema and venous insufficiency. Morbid obesity. Type 2 diabetes uncontrolled with peripheral neuropathy. CKD. Hypertension. Left below-knee amputation. Malnutrition. Delayed wound healing. Nonadherence to treatment plan Plan: His ulcer sites were evaluated as noted in the clinical panel. His advance product continues to incorporate well. Debridement was performed as noted in the clinical panel to all sites. The site was cleansed. The sutures were removed today. A dressing was applied today with additional compression dressings; to continue dressing changes with home health. I recommend application of Guera to the wound sites. Betadine / gauze application to the right interdigital maceration site. Preauthorization for advanced wound care product, epicord, will be initiated. He has responded this well after his operating room application and a serial application of clinical setting will be implemented upon approval. This is medically necessary for limb salvage he is high risk for; limb loss. It is noted he completed a PICC line course of antibiotics while in the hospital under the management of infectious disease and his most recent calcaneus bone biopsy was negative for osteomyelitis. His advanced wound care product has incorporated well. Patient to continue left 3M to 2L dressing which is applied today from the distal right foot to thigh as well as his left below knee amputation stump site to the thigh. It is noted the skin is very friable and he is high risk for continued ulcers. He is in a wheel chair with no leg rests and his legs are dangling idle. I am concerned of ongoing fluid accumulation; he was advised to get compliant with the wheel chair leg rests and to resume his compression pumps at home. He admits he has not used his compression pumps one time since he has returned home. He is now considered on complex care due to inability to fully adhere to the treatment program. CircAid thigh-high were ordered for the right lower extremity; he understands this is a graduated compression device. It is noted he had previous vascular surgery intervention. He had stents placed to improve arterial perfusion. He will follow-up with him as needed at this point. His noninvasive vascular arterial studies were reviewed and his COY is 1.05 on the right lower extremity. This will be monitored. To continue with nutritional supplementation, Glucerna. His diabetes is uncontrolled and he understands he is at risk for limb loss. To continue with proper glycemic control medical management to optimize healing. I answered all his questions. To return to clinic in one week or call sooner if questions or concerns.
[2017-10-27 10:19] VITALS: BP 110/71; PULSE 100; RESP 20; TEMP 36.6
--- NOTE | 2017-10-27 11:40 | PCM.WC.PN ---
(1) Ulcer of right foot with necrosis of muscle Status: Chronic Code(s): L97.513 - Non-pressure chronic ulcer of other part of right foot with necrosis of muscle (2) Ulcer of right foot with fat layer exposed Status: Chronic Code(s): L97.512 - Non-pressure chronic ulcer of other part of right foot with fat layer exposed (3) Complete below knee amputation of left lower extremity Status: Chronic Code(s): S88.112A - Complete traumatic amputation at level between knee and ankle, left lower leg, initial encounter (4) Chronic kidney disease (CKD) Status: Chronic Qualifiers: Code(s): N18.9 - Chronic kidney disease, unspecified (5) BKA stump complication Status: Chronic Code(s): T87.9 - Unspecified complications of amputation stump (6) Type 2 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with diabetic polyneuropathy Status: Chronic Code(s): E11.42 - Type 2 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with diabetic polyneuropathy (7) Venous insufficiency Status: Chronic Code(s): I87.2 - Venous insufficiency (chronic) (peripheral) (8) Lymphedema Status: Chronic Code(s): I89.0 - Lymphedema, not elsewhere classified (9) Edema of both legs Status: Chronic Code(s): R60.0 - Localized edema Type of Wound Date of Service: 11/01/17 Chief Complaint: right foot ulcer right second plantar toe and right fourth distal toe. right heel ulcer s/p surgical intervention. Right leg ulcer new with fat layer exposed. right leg blister lateral History of Wound: 57-year-old white male returns to clinic for follow-up of bilateral leg ulcers and right foot ulcers. He denies fever, chill, nausea, vomiting, loss of appetite. He underwent surgical debridement application of advanced wound care products, Amniofil and epi fix September 14, 2017. He has since returned home and relates he uses his compression pumps 1-2 times daily. He also presents today with a shrink dressing to his left leg. His left leg continues to dangle in a dependent position and he refuses to use a leg rest part of his wheelchair as previously discussed. He is fatigued and having some vague chest pain; he is amenable to go to the emergency room for further evaluation at this time. Progress of Wound: improving right heel - Physical Exam Vital Signs Temp Pulse Resp BP 97.8 F 100 20 H 110/71 10/27/17 10:19 10/27/17 10:19 10/27/17 10:19 10/27/17 10:19 General: Alert, Oriented x3, Cooperative, Lethargic Extremities: No cyanosis, Capillary Refill Less than 3 Seconds, No Calf Tenderness, Diminished Peripheral Pulses, Edema Skin: Ulcer/ Wound - No purulence, no erythema, streaking, no necrosis, no infection. The heel wound has increased granulation tissue and there is no longer any exposed deep tissue layers noted. The other wounds remain superficial. His skin is atrophic. Wound Measurements and Assessment WC - Nurse 1 - General Ulcer Measurement Start: 10/06/17 15:14 Freq: Status: Active Protocol: Activity Type Activity Date Activity User E-Sign Co-Sign Detail Recorded Client Recorded Date Recorded By Document 10/27/17 10:19 RB [id number] 10/27/17 10:42 RB 10/27/17 10:19 Wound Center Nurse 1 [Ulcer Assessment] #20-right plantar foot -Combined with other wound No -Current Size (cm) - Length 0.1 -Current Size (cm) - Width 0.1 -Current Size (cm) - Depth 0.1 -Total Square Cm 0.01 -Photo Taken No -Tunneling No -Undermining/Tunneling No -Circular Undermining No -Classification - Thickness Full Thickness without Exposed Support Structure -Exudate Amt None Present (0 %) -Wound Margin Distinct, Outline Attached -Granulation Amt Large (67-100%) -Granulation Quality [place] -Slough/Fibrin No -Necrosis Amt None Present (0 %) -Structure Exposed N/A -Texture (Martha-wound Skin Appearance) Assessed -Moisture (Martha-wound Skin Appearance Dry/Scaly ) -Color (Martha-wound Skin Appearance) Assessed -Temperature (Martha-wound Skin No Abnormality Appearance) (Pt Warm) -Tenderness on Palpation (Martha-wound No Skin Appearance) -Ulcer Cleansing Wound Cleanser -Foul Odor after Cleansing No -Anesthetic Used 4% Lidocaine Solution #15 Right Heel -Combined with other wound No -Current Size (cm) - Length 5 -Current Size (cm) - Width 6 -Current Size (cm) - Depth 0.3 -Total Square Cm 30 -Photo Taken No -Tunneling No -Undermining/Tunneling No -Circular Undermining No -Exudate Amt Small (1-33%) -Exudate Type Serosanguineous -Wound Margin Thickened -Granulation Amt Medium (34-66%) -Granulation Quality [place] -Slough/Fibrin Yes -Necrosis Amt Large (67-100%) -Necrotic Tissue Type Adherent Slough -Structure Exposed N/A -Texture (Martha-wound Skin Appearance) Assessed -Moisture (Martha-wound Skin Appearance Dry/Scaly ) -Color (Martha-wound Skin Appearance) Assessed -Temperature (Martha-wound Skin No Abnormality Appearance) (Pt Warm) -Tenderness on Palpation (Martha-wound No Skin Appearance) -Ulcer Cleansing Wound Cleanser -Foul Odor after Cleansing No -Anesthetic Used 4% Lidocaine Solution #19 RIGHt norman -Combined with other wound No -Current Size (cm) - Length 0.7 -Current Size (cm) - Width 0.5 -Current Size (cm) - Depth 0.1 -Total Square Cm 0.35 -Photo Taken No -Tunneling No -Undermining/Tunneling No -Circular Undermining No -Classification - Thickness Full Thickness without Exposed Support Structure -Exudate Amt Small (1-33%) -Exudate Type Serosanguineous -Wound Margin Distinct, Outline Attached -Granulation Amt Medium (34-66%) -Granulation Quality [place] -Slough/Fibrin Yes -Necrosis Amt Medium (34-66%) -Necrotic Tissue Type Adherent Slough -Structure Exposed N/A -Texture (Martha-wound Skin Appearance) Assessed -Moisture (Martha-wound Skin Appearance Dry/Scaly ) -Color (Martha-wound Skin Appearance) Assessed -Temperature (Martha-wound Skin No Abnormality Appearance) (Pt Warm) -Tenderness on Palpation (Martha-wound No Skin Appearance) -Ulcer Cleansing Wound Cleanser -Foul Odor after Cleansing No -Anesthetic Used 4% Lidocaine Solution #16 Right Foot-Toes -Combined with other wound No -Current Size (cm) - Length 6 -Current Size (cm) - Width 8 -Current Size (cm) - Depth 0.2 -Total Square Cm 48 -Photo Taken No -Tunneling No -Undermining/Tunneling No -Circular Undermining No -Classification - Thickness Full Thickness without Exposed Support Structure -Exudate Amt Medium (34-66%) -Exudate Type Serosanguineous -Wound Margin Distinct, Outline Attached -Granulation Amt Medium (34-66%) -Granulation Quality [place] -Slough/Fibrin Yes -Necrosis Amt Medium (34-66%) -Necrotic Tissue Type Adherent Slough -Structure Exposed N/A -Texture (Martha-wound Skin Appearance) Assessed -Moisture (Martha-wound Skin Appearance Maceration ) -Color (Martha-wound Skin Appearance) Assessed -Temperature (Martha-wound Skin No Abnormality Appearance) (Pt Warm) -Ulcer Cleansing Wound Cleanser -Foul Odor after Cleansing No -Anesthetic Used 4% Lidocaine Solution [Edema Assessment] -Lower Limb Edema Present Yes -Right Calf (cm) 37 -Right Ankle (cm) 29.5 WC - Nurse 2 - General Ulcer CM Notes Start: 10/06/17 15:14 Freq: Status: Active Protocol: Activity Type Activity Date Activity User E-Sign Co-Sign Detail Recorded Client Recorded Date Recorded By Document 10/27/17 11:04 ANUP [id number] 10/27/17 11:06 ANUP 10/27/17 11:04 Wound Center Nurse 2 [Procedure/Treatment] #20-right plantar foot -Time 11:08 -Correct Patient Yes -Correct Side, Site, Position Yes -Correct Procedure Yes -Procedure Performed Yes -Type of Procedure Debridement -Clinical Debridement Subcutaneous -Post Debridement Size (cm) - Length 1.0 -Post Debridement Size (cm) - Width 0.5 -Post Debridement Size (cm) - Depth 0.1 -Total Square Cm 0.50 -Wound/Ulcer Outcome Not Healed -Ulcer Cleansing Rinsed/ Irrigated with Saline -Foul Odor after Cleansing No -Bioengineered Tissue No -Bleeding Controlled with Pressure -Treatment Response Procedure Tolerated Well #15 Right Heel -Time 11:05 -Correct Patient Yes -Correct Side, Site, Position Yes -Correct Procedure Yes -Procedure Performed Yes -Type of Procedure Debridement -Clinical Debridement Subcutaneous -Post Debridement Size (cm) - Length 5.1 -Post Debridement Size (cm) - Width 6.1 -Post Debridement Size (cm) - Depth 0.3 -Total Square Cm 31.11 -Wound/Ulcer Outcome Not Healed -Ulcer Cleansing Rinsed/ Irrigated with Saline -Foul Odor after Cleansing No -Bioengineered Tissue No -Bleeding Controlled with Pressure -Treatment Response Procedure Tolerated Well #19 RIGHt norman -Time 11:05 -Correct Patient Yes -Correct Side, Site, Position Yes -Correct Procedure Yes -Procedure Performed Yes -Type of Procedure Debridement -Clinical Debridement Subcutaneous -Post Debridement Size (cm) - Length 0.8 -Post Debridement Size (cm) - Width 0.5 -Post Debridement Size (cm) - Depth 0.1 -Total Square Cm 0.40 -Wound/Ulcer Outcome Not Healed -Ulcer Cleansing Rinsed/ Irrigated with Saline -Foul Odor after Cleansing No -Bioengineered Tissue No -Bleeding Controlled with Pressure -Treatment Response Procedure Tolerated Well #16 Right Foot-Toes -Time 11:06 -Correct Patient Yes -Correct Side, Site, Position Yes -Correct Procedure Yes -Procedure Performed Yes -Type of Procedure Debridement -Clinical Debridement Subcutaneous -Post Debridement Size (cm) - Length 6.1 -Post Debridement Size (cm) - Width 8 -Post Debridement Size (cm) - Depth 0.2 -Total Square Cm 48.8 -Wound/Ulcer Outcome Not Healed -Ulcer Cleansing Rinsed/ Irrigated with Saline -Foul Odor after Cleansing No -Bioengineered Tissue No -Bleeding Controlled with Pressure -Treatment Response Procedure Tolerated Well [See Physician Procedure note for Specifics] Pain Scale: 0-10 Numeric [Pain] -Is Patient Pain Free? Yes Musculoskeletal: No Tenderness to Palpation of Joints or Extremities, Muscle Wasting, - - Left below-knee amputation Lymphatic: - - Lymphedema continued bilateral lower extremities Neurological: - - Lack of epicritic sensation light touch bilateral lower extremities Psych/Mental Status: Normal Affect, Appropriate Debridement Note Post-Debridement Measurements/Treatment WC - Nurse 2 - General Ulcer CM Notes Start: 10/06/17 15:14 Freq: Status: Active Protocol: Activity Type Activity Date Activity User E-Sign Co-Sign Detail Recorded Client Recorded Date Recorded By Document 10/06/17 16:04 [id number] 10/06/17 16:19 Document 10/14/17 18:25 TM [id number] 10/14/17 18:29 TM Document 10/20/17 11:17 [id number] 10/20/17 11:24 JF Document 10/27/17 11:04 JF [id number] 10/27/17 11:06 JF 10/06/17 10/14/17 10/20/17 16:04 18:25 11:17 Wound Center Nurse 2 #20-right plantar foot -Time 11:24 -Correct Patient Yes -Correct Side, Site, Position Yes -Correct Procedure Yes -Procedure Performed Yes -Type of Procedure Debridement -Clinical Debridement Subcutaneous -Post Debridement Size (cm) - Length 0.5 -Post Debridement Size (cm) - Width 0.7 -Post Debridement Size (cm) - Depth 0.1 -Total Square Cm 0.35 -Wound/Ulcer Outcome Not Healed -Ulcer Cleansing Rinsed/ Irrigated with Saline -Foul Odor after Cleansing No -Bioengineered Tissue No -Bleeding Controlled with Pressure -Treatment Response Procedure Tolerated Well #14- LT POPLITEAL FOLD -Time 16:04 -Correct Patient Yes -Correct Side, Site, Position Yes -Correct Procedure Yes -Procedure Performed Yes -Post Debridement Size (cm) - Length 0 -Post Debridement Size (cm) - Width 0 -Post Debridement Size (cm) - Depth 0 -Total Square Cm 0 -Wound/Ulcer Outcome Healed- Epithelialized -Ulcer Cleansing hibiclens -Foul Odor after Cleansing No -Bioengineered Tissue No -Bleeding Controlled with NA -Treatment Response Procedure Tolerated Well #15 Right Heel -Time 16:06 18:25 11:20 -Correct Patient Yes Yes Yes -Correct Side, Site, Position Yes Yes Yes -Correct Procedure Yes Yes Yes -Procedure Performed Yes Yes Yes -Type of Procedure Debridement -Clinical Debridement Subcutaneous -Post Debridement Size (cm) - Length 4.0 4.2 4.7 -Post Debridement Size (cm) - Width 5.2 5.5 5.5 -Post Debridement Size (cm) - Depth 0.4 0.3 0.5 -Total Square Cm 20.80 23.10 25.85 -Wound/Ulcer Outcome Not Healed Not Healed Not Healed -Ulcer Cleansing hibiclens Rinsed/ Rinsed/ Irrigated with Irrigated with Saline Saline -Foul Odor after Cleansing No No No -Bioengineered Tissue No No No -Bleeding Controlled with NA NA Pressure Pressure -Other leave sutures NO DEBRIDEMENT intact cover TODAY LEAVE with adaptic SUTURES INTACT -Treatment Response Procedure Procedure Procedure Tolerated Well Tolerated Well Tolerated Well #12 R LE Cluster -Time 16:07 -Correct Patient Yes -Correct Side, Site, Position Yes -Correct Procedure Yes -Procedure Performed Yes -Post Debridement Size (cm) - Length 0 -Post Debridement Size (cm) - Width 0 -Post Debridement Size (cm) - Depth 0 -Total Square Cm 0 -Wound/Ulcer Outcome Healed- Epithelialized -Ulcer Cleansing hibclens -Foul Odor after Cleansing No -Bioengineered Tissue No -Bleeding Controlled with NA #11 RIGHT PROXIMAL LE -Time 16:08 -Correct Patient Yes -Correct Side, Site, Position Yes -Correct Procedure Yes -Procedure Performed Yes -Post Debridement Size (cm) - Length 0 -Post Debridement Size (cm) - Width 0 -Post Debridement Size (cm) - Depth 0 -Total Square Cm 0 -Wound/Ulcer Outcome Healed- Epithelialized -Ulcer Cleansing hibiclens -Foul Odor after Cleansing No -Bioengineered Tissue No -Bleeding Controlled with NA #10- RIGHT LATERAL -Time 16:09 -Correct Patient Yes -Correct Side, Site, Position Yes -Correct Procedure Yes -Procedure Performed Yes -Post Debridement Size (cm) - Length 0 -Post Debridement Size (cm) - Width 0 -Post Debridement Size (cm) - Depth 0 -Total Square Cm 0 -Wound/Ulcer Outcome Healed- Epithelialized -Ulcer Cleansing hibiclens -Foul Odor after Cleansing No -Bioengineered Tissue No -Bleeding Controlled with NA #19 RIGHt norman -Time 16:10 11:22 -Correct Patient Yes Yes -Correct Side, Site, Position Yes Yes -Correct Procedure Yes Yes -Procedure Performed Yes Yes -Type of Procedure Debridement -Clinical Debridement Subcutaneous -Post Debridement Size (cm) - Length 0 0.8 -Post Debridement Size (cm) - Width 0 0.8 -Post Debridement Size (cm) - Depth 0 0.1 -Total Square Cm 0 0.64 -Wound/Ulcer Outcome Healed- Not Healed Epithelialized -Ulcer Cleansing hibiclens Rinsed/ Irrigated with Saline -Foul Odor after Cleansing No No -Bioengineered Tissue No No -Bleeding Controlled with NA Pressure -Treatment Response Procedure Tolerated Well #6 R Med Lower Leg -Time 16:10 -Correct Patient Yes -Correct Side, Site, Position Yes -Correct Procedure Yes -Procedure Performed Yes -Post Debridement Size (cm) - Length 0 -Post Debridement Size (cm) - Width 0 -Post Debridement Size (cm) - Depth 0 -Total Square Cm 0 -Wound/Ulcer Outcome Healed- Epithelialized -Ulcer Cleansing hibiclens -Foul Odor after Cleansing No -Bioengineered Tissue No -Bleeding Controlled with NA #16 Right Foot-Toes -Time 16:13 18:26 11:21 -Correct Patient Yes Yes Yes -Correct Side, Site, Position Yes Yes Yes -Correct Procedure Yes Yes Yes -Procedure Performed Yes Yes Yes -Type of Procedure Debridement -Clinical Debridement Subcutaneous -Post Debridement Size (cm) - Length 1.5 11.2 0.4 -Post Debridement Size (cm) - Width 0.2 9.6 0.9 -Post Debridement Size (cm) - Depth 0.1 0.1 0.1 -Total Square Cm 0.30 107.52 0.36 -Wound/Ulcer Outcome Not Healed Not Healed Not Healed -Ulcer Cleansing hibiclens Rinsed/ Rinsed/ Irrigated with Irrigated with Saline Saline -Foul Odor after Cleansing No No No -Bioengineered Tissue No No No -Bleeding Controlled with NA NA Pressure -Other NO DEBRIDEMENT TODAY -Treatment Response Procedure Procedure Tolerated Well Tolerated Well #1 BTK Left Stump cluster -Time 16:14 -Correct Patient Yes -Correct Side, Site, Position Yes -Correct Procedure Yes -Procedure Performed Yes -Post Debridement Size (cm) - Length 0 -Post Debridement Size (cm) - Width 0 -Post Debridement Size (cm) - Depth 0 -Total Square Cm 0 -Wound/Ulcer Outcome Healed- Epithelialized -Ulcer Cleansing hibiclens -Foul Odor after Cleansing No -Bioengineered Tissue No -Bleeding Controlled with NA Pain Scale: 0-10 Numeric Is Patient Pain Free? Yes Yes Yes 10/27/17 11:04 Wound Center Nurse 2 #20-right plantar foot -Time 11:08 -Correct Patient Yes -Correct Side, Site, Position Yes -Correct Procedure Yes -Procedure Performed Yes -Type of Procedure Debridement -Clinical Debridement Subcutaneous -Post Debridement Size (cm) - Length 1.0 -Post Debridement Size (cm) - Width 0.5 -Post Debridement Size (cm) - Depth 0.1 -Total Square Cm 0.50 -Wound/Ulcer Outcome Not Healed -Ulcer Cleansing Rinsed/ Irrigated with Saline -Foul Odor after Cleansing No -Bioengineered Tissue No -Bleeding Controlled with Pressure -Treatment Response Procedure Tolerated Well #14- LT POPLITEAL FOLD -Time -Correct Patient -Correct Side, Site, Position -Correct Procedure -Procedure Performed -Post Debridement Size (cm) - Length -Post Debridement Size (cm) - Width -Post Debridement Size (cm) - Depth -Total Square Cm -Wound/Ulcer Outcome -Ulcer Cleansing -Foul Odor after Cleansing -Bioengineered Tissue -Bleeding Controlled with -Treatment Response #15 Right Heel -Time 11:05 -Correct Patient Yes -Correct Side, Site, Position Yes -Correct Procedure Yes -Procedure Performed Yes -Type of Procedure Debridement -Clinical Debridement Subcutaneous -Post Debridement Size (cm) - Length 5.1 -Post Debridement Size (cm) - Width 6.1 -Post Debridement Size (cm) - Depth 0.3 -Total Square Cm 31.11 -Wound/Ulcer Outcome Not Healed -Ulcer Cleansing Rinsed/ Irrigated with Saline -Foul Odor after Cleansing No -Bioengineered Tissue No -Bleeding Controlled with Pressure -Other -Treatment Response Procedure Tolerated Well #12 R LE Cluster -Time -Correct Patient -Correct Side, Site, Position -Correct Procedure -Procedure Performed -Post Debridement Size (cm) - Length -Post Debridement Size (cm) - Width -Post Debridement Size (cm) - Depth -Total Square Cm -Wound/Ulcer Outcome -Ulcer Cleansing -Foul Odor after Cleansing -Bioengineered Tissue -Bleeding Controlled with #11 RIGHT PROXIMAL LE -Time -Correct Patient -Correct Side, Site, Position -Correct Procedure -Procedure Performed -Post Debridement Size (cm) - Length -Post Debridement Size (cm) - Width -Post Debridement Size (cm) - Depth -Total Square Cm -Wound/Ulcer Outcome -Ulcer Cleansing -Foul Odor after Cleansing -Bioengineered Tissue -Bleeding Controlled with #10- RIGHT LATERAL -Time -Correct Patient -Correct Side, Site, Position -Correct Procedure -Procedure Performed -Post Debridement Size (cm) - Length -Post Debridement Size (cm) - Width -Post Debridement Size (cm) - Depth -Total Square Cm -Wound/Ulcer Outcome -Ulcer Cleansing -Foul Odor after Cleansing -Bioengineered Tissue -Bleeding Controlled with #19 RIGHt norman -Time 11:05 -Correct Patient Yes -Correct Side, Site, Position Yes -Correct Procedure Yes -Procedure Performed Yes -Type of Procedure Debridement -Clinical Debridement Subcutaneous -Post Debridement Size (cm) - Length 0.8 -Post Debridement Size (cm) - Width 0.5 -Post Debridement Size (cm) - Depth 0.1 -Total Square Cm 0.40 -Wound/Ulcer Outcome Not Healed -Ulcer Cleansing Rinsed/ Irrigated with Saline -Foul Odor after Cleansing No -Bioengineered Tissue No -Bleeding Controlled with Pressure -Treatment Response Procedure Tolerated Well #6 R Med Lower Leg -Time -Correct Patient -Correct Side, Site, Position -Correct Procedure -Procedure Performed -Post Debridement Size (cm) - Length -Post Debridement Size (cm) - Width -Post Debridement Size (cm) - Depth -Total Square Cm -Wound/Ulcer Outcome -Ulcer Cleansing -Foul Odor after Cleansing -Bioengineered Tissue -Bleeding Controlled with #16 Right Foot-Toes -Time 11:06 -Correct Patient Yes -Correct Side, Site, Position Yes -Correct Procedure Yes -Procedure Performed Yes -Type of Procedure Debridement -Clinical Debridement Subcutaneous -Post Debridement Size (cm) - Length 6.1 -Post Debridement Size (cm) - Width 8 -Post Debridement Size (cm) - Depth 0.2 -Total Square Cm 48.8 -Wound/Ulcer Outcome Not Healed -Ulcer Cleansing Rinsed/ Irrigated with Saline -Foul Odor after Cleansing No -Bioengineered Tissue No -Bleeding Controlled with Pressure -Other -Treatment Response Procedure Tolerated Well #1 BTK Left Stump cluster -Time -Correct Patient -Correct Side, Site, Position -Correct Procedure -Procedure Performed -Post Debridement Size (cm) - Length -Post Debridement Size (cm) - Width -Post Debridement Size (cm) - Depth -Total Square Cm -Wound/Ulcer Outcome -Ulcer Cleansing -Foul Odor after Cleansing -Bioengineered Tissue -Bleeding Controlled with Pain Scale: 0-10 Numeric Is Patient Pain Free? Yes Wound debrided: 2 toe Laterality: Right Wound Grade/Stage: grade 1 Type of Debridement: Excisional debridement Anesthesia Used: 5% Lidocaine Gel Depth: in the subcutaneous layer Percentage of wound debrided: 100 Instrument Used: #15 blade Tissue Removed: fibrous, devitalized subcutaneous, biofilm, slough Severity: Fat Layer Exposed Amount of bleeding with debridement: Mild Bleeding Controlled with: Pressure Patient tolerated procedure well - Additional Wound Wound debrided: 4th toe Laterality: Right Wound Grade/Stage: grade 1 Type of Debridement: Excisional debridement Anesthesia Used: 5% Lidocaine Gel Depth: in the subcutaneous layer Percentage of wound debrided: 100 Instrument Used: #15 blade Tissue Removed: fibrous, devitalized subcutaneous, biofilm, slough Severity: Fat Layer Exposed Amount of bleeding with debridement: Mild Bleeding Controlled with: Pressure Patient tolerated procedure: Patient tolerated procedure well - Additional Wound Wound debrided: heel Laterality: Right Wound Grade/Stage: grade 3 Anesthesia Used: 5% Lidocaine Gel Depth: in the subcutaneous layer Percentage of wound debrided: 100 Instrument Used: #15 blade Tissue Removed: fibrous, devitalized subcutaneous, biofilm, slough Severity: Fat Layer Exposed Amount of bleeding with debridement: Mild Bleeding Controlled with: Pressure Patient tolerated procedure: Patient tolerated procedure well - Additional Wound Wound debrided: norman Laterality: Right Wound Grade/Stage: grade 1 Type of Debridement: Excisional debridement Anesthesia Used: 5% Lidocaine Gel Depth: in the subcutaneous layer Percentage of wound debrided: 100 Instrument Used: #15 blade Tissue Removed: fibrous, devitalized subcutaneous, biofilm, slough Severity: Fat Layer Exposed Amount of bleeding with debridement: Mild Bleeding Controlled with: Pressure Patient tolerated procedure: Patient tolerated procedure well Assessment/Plan Assessment: ulcer right forefoot - returned (digits 2 and 4). Ulcers right leg b. right heel ulcer muscle involved and exposed fascia without infection noted today; s/p surgical debridement and application of advance wound care products (amniofil and epicord). Lymphedema. Chronic lower extremity edema and venous insufficiency. Morbid obesity. Type 2 diabetes uncontrolled with peripheral neuropathy. CKD. Hypertension. Left below-knee amputation. Malnutrition. Delayed wound healing. Nonadherence to treatment plan Plan: His ulcer sites were evaluated as noted in the clinical panel. His advance product continues to incorporate well. Debridement was performed as noted in the clinical panel to all sites. The site was cleansed. The sutures were removed today. A dressing was applied today with additional compression dressings; to continue dressing changes with home health. I recommend application of Guera to the wound sites. Betadine / gauze application to the right interdigital maceration site. Preauthorization for advanced wound care product, epicord, will be initiated and this is still pending. He has responded this well after his operating room application and a serial application of clinical setting will be implemented upon approval. This is medically necessary for limb salvage he is high risk for; limb loss. It is noted he completed a PICC line course of antibiotics while in the hospital under the management of infectious disease and his most recent calcaneus bone biopsy was negative for osteomyelitis. His advanced wound care product has incorporated well. Patient to continue left 3M to 2L dressing which is applied today from the distal right foot to thigh as well as his left below knee amputation stump site to the thigh. It is noted the skin is very friable and he is high risk for continued ulcers. He is in a wheel chair with no leg rests and his legs are dangling idle. I am concerned of ongoing fluid accumulation; he was advised to get compliant with the wheel chair leg rests and to resume his compression pumps at home. He admits he has not used his compression pumps one time since he has returned home. I recommend a lymphedema clinic referral. He is now considered on complex care due to inability to fully adhere to the treatment program. CircAid thigh-high were ordered for the right lower extremity; he understands this is a graduated compression device. It is noted he had previous vascular surgery intervention. He had stents placed to improve arterial perfusion. He will follow-up with him as needed at this point. His noninvasive vascular arterial studies were reviewed and his COY is 1.05 on the right lower extremity. This will be monitored. To continue with nutritional supplementation, Glucerna. His diabetes is uncontrolled and he understands he is at risk for limb loss. To continue with proper glycemic control medical management to optimize healing. I answered all his questions. To return to clinic in one week or call sooner if questions or concerns.
[2017-11-03 10:47] VITALS: BP 118/67; PULSE 91; RESP 18; TEMP 35.7
--- NOTE | 2017-11-03 22:25 | PCM.WC.PN ---
(1) Ulcer of right foot with necrosis of muscle Status: Chronic Current Visit: Yes Code(s): L97.513 - Non-pressure chronic ulcer of other part of right foot with necrosis of muscle (2) Ulcer of right foot with fat layer exposed Status: Chronic Current Visit: Yes Code(s): L97.512 - Non-pressure chronic ulcer of other part of right foot with fat layer exposed (3) Complete below knee amputation of left lower extremity Status: Chronic Current Visit: Yes Code(s): S88.112A - Complete traumatic amputation at level between knee and ankle, left lower leg, initial encounter (4) Chronic kidney disease (CKD) Status: Chronic Current Visit: Yes Qualifiers: Code(s): N18.9 - Chronic kidney disease, unspecified (5) BKA stump complication Status: Chronic Current Visit: Yes Code(s): T87.9 - Unspecified complications of amputation stump (6) Type 2 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with diabetic polyneuropathy Status: Chronic Current Visit: Yes Code(s): E11.42 - Type 2 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with diabetic polyneuropathy (7) Venous insufficiency Status: Chronic Current Visit: Yes Code(s): I87.2 - Venous insufficiency (chronic) (peripheral) (8) Lymphedema Status: Chronic Current Visit: Yes Code(s): I89.0 - Lymphedema, not elsewhere classified (9) Edema of both legs Status: Chronic Current Visit: Yes Code(s): R60.0 - Localized edema (10) Ulcer of right lower extremity with fat layer exposed Status: Resolved Current Visit: Yes Code(s): L97.912 - Non-pressure chronic ulcer of unspecified part of right lower leg with fat layer exposed Type of Wound Date of Service: 11/03/17 Chief Complaint: right foot ulcer right second plantar toe and right fourth distal toe. right heel ulcer s/p surgical intervention. Right leg ulcer healed History of Wound: 57-year-old white male returns to clinic for follow-up of bilateral leg ulcers and right foot ulcers. He denies fever, chill, nausea, vomiting, loss of appetite. He underwent surgical debridement application of advanced wound care products, Amniofil and epi fix September 14, 2017. He has since returned home and relates he uses his compression pumps 1 time daily. He also presents today with a shrink dressing to his left leg. It was noted that he did not go to the emergency room last week. He did however promptly follow-up with his primary care physician who risk stratified him is low risk and he reports no intervention was recommended at this time. He did follow up with his primary care physician. Progress of Wound: improving right heel - Physical Exam Vital Signs Temp Pulse Resp BP 96.2 F L 91 18 118/67 11/03/17 10:47 11/03/17 10:47 11/03/17 10:47 11/03/17 10:47 General: Alert, Oriented x3, Cooperative Extremities: No cyanosis, Capillary Refill Less than 3 Seconds, No Calf Tenderness, Diminished Peripheral Pulses, Edema Skin: Ulcer/ Wound - No purulence, no erythema, streaking, no odor right lower extremity. The right leg ulcer is healed. There is no distinct plantar foot ulcer. There is minor ulcers to the toes in a cluster area in which most of it has epithelial tissue formation. No exposed muscle or bone tissue noted today Wound Measurements and Assessment WC - Nurse 1 - General Ulcer Measurement Start: 10/06/17 15:14 Freq: Status: Active Protocol: Activity Type Activity Date Activity User E-Sign Co-Sign Detail Recorded Client Recorded Date Recorded By Document 11/03/17 10:47 RB [id number] 11/03/17 11:05 RB 11/03/17 10:47 Wound Center Nurse 1 [Ulcer Assessment] #20-right plantar foot -Combined with other wound No -Current Size (cm) - Length 0.1 -Current Size (cm) - Width 0.1 -Current Size (cm) - Depth 0.1 -Total Square Cm 0.01 -Photo Taken No -Tunneling No -Undermining/Tunneling No -Circular Undermining No -Classification - Thickness Full Thickness without Exposed Support Structure -Exudate Amt None Present (0 %) -Wound Margin Distinct, Outline Attached -Granulation Amt Large (67-100%) -Granulation Quality [place] -Slough/Fibrin No -Necrosis Amt None Present (0 %) -Structure Exposed N/A -Texture (Martha-wound Skin Appearance) Assessed -Moisture (Martha-wound Skin Appearance Dry/Scaly ) -Color (Martha-wound Skin Appearance) Assessed -Temperature (Martha-wound Skin No Abnormality Appearance) (Pt Warm) -Ulcer Cleansing Wound Cleanser -Foul Odor after Cleansing No -Anesthetic Used 4% Lidocaine Solution #15 Right Heel -Combined with other wound No -Current Size (cm) - Length 4.3 -Current Size (cm) - Width 5.4 -Current Size (cm) - Depth 0.1 -Total Square Cm 23.22 -Tunneling No -Undermining/Tunneling No -Circular Undermining No -Classification - Thickness Full Thickness without Exposed Support Structure -Exudate Amt Medium (34-66%) -Exudate Type Serosanguineous -Wound Margin Thickened -Granulation Amt Large (67-100%) -Granulation Quality [place] -Slough/Fibrin Yes -Necrosis Amt Small (1-33%) -Necrotic Tissue Type Adherent Slough -Structure Exposed N/A -Texture (Martha-wound Skin Appearance) Callus -Moisture (Martha-wound Skin Appearance Maceration ) -Color (Martha-wound Skin Appearance) Assessed -Temperature (Martha-wound Skin No Abnormality Appearance) (Pt Warm) -Tenderness on Palpation (Martha-wound No Skin Appearance) -Ulcer Cleansing Wound Cleanser -Foul Odor after Cleansing No -Anesthetic Used 4% Lidocaine Solution #19 RIGHt norman -Combined with other wound No -Current Size (cm) - Length 0.1 -Current Size (cm) - Width 0.1 -Current Size (cm) - Depth 0.1 -Total Square Cm 0.01 -Photo Taken No -Tunneling No -Undermining/Tunneling No -Circular Undermining No -Classification - Thickness Full Thickness without Exposed Support Structure -Exudate Amt None Present (0 %) -Wound Margin Distinct, Outline Attached -Granulation Amt Small (1-33%) -Granulation Quality [place] -Slough/Fibrin Yes -Necrosis Amt Large (67-100%) -Necrotic Tissue Type Adherent Slough -Structure Exposed N/A -Texture (Martha-wound Skin Appearance) Assessed -Moisture (Martha-wound Skin Appearance Assessed ) -Color (Martha-wound Skin Appearance) Assessed Hemosiderin Staining -Temperature (Martha-wound Skin No Abnormality Appearance) (Pt Warm) -Tenderness on Palpation (Martha-wound No Skin Appearance) -Ulcer Cleansing Wound Cleanser -Foul Odor after Cleansing No -Anesthetic Used 4% Lidocaine Solution #16 Right Foot-Toes -Combined with other wound No -Current Size (cm) - Length 8 -Current Size (cm) - Width 7.6 -Current Size (cm) - Depth 0.2 -Total Square Cm 60.8 -Tunneling No -Undermining/Tunneling No -Circular Undermining No -Classification - Thickness Full Thickness without Exposed Support Structure -Exudate Amt Medium (34-66%) -Exudate Type Serosanguineous -Wound Margin Distinct, Outline Attached -Granulation Amt Medium (34-66%) -Granulation Quality [place] -Slough/Fibrin Yes -Necrosis Amt Medium (34-66%) -Necrotic Tissue Type Adherent Slough -Structure Exposed N/A -Texture (Martha-wound Skin Appearance) Localized Edema -Moisture (Martha-wound Skin Appearance Maceration ) -Color (Martha-wound Skin Appearance) Erythema -Temperature (Martha-wound Skin No Abnormality Appearance) (Pt Warm) -Tenderness on Palpation (Martha-wound No Skin Appearance) -Ulcer Cleansing Wound Cleanser -Foul Odor after Cleansing No -Anesthetic Used 4% Lidocaine Solution [Edema Assessment] -Lower Limb Edema Present Yes -Right Calf (cm) 37.5 -Right Ankle (cm) 27.7 Musculoskeletal: No Tenderness to Palpation of Joints or Extremities, Muscle Wasting Neurological: - - Lack of epicritic sensation light touch right lower extremity Psych/Mental Status: Normal Affect, Appropriate Debridement Note Post-Debridement Measurements/Treatment WC - Nurse 2 - General Ulcer CM Notes Start: 10/06/17 15:14 Freq: Status: Active Protocol: Activity Type Activity Date Activity User E-Sign Co-Sign Detail Recorded Client Recorded Date Recorded By Document 10/06/17 16:04 [id number] 10/06/17 16:19 Document 10/14/17 18:25 [id number] 10/14/17 18:29 Document 10/20/17 11:17 [id number] 10/20/17 11:24 Document 10/27/17 11:04 [id number] 10/27/17 11:06 10/06/17 10/14/17 10/20/17 16:04 18:25 11:17 Wound Center Nurse 2 #20-right plantar foot -Time 11:24 -Correct Patient Yes -Correct Side, Site, Position Yes -Correct Procedure Yes -Procedure Performed Yes -Type of Procedure Debridement -Clinical Debridement Subcutaneous -Post Debridement Size (cm) - Length 0.5 -Post Debridement Size (cm) - Width 0.7 -Post Debridement Size (cm) - Depth 0.1 -Total Square Cm 0.35 -Wound/Ulcer Outcome Not Healed -Ulcer Cleansing Rinsed/ Irrigated with Saline -Foul Odor after Cleansing No -Bioengineered Tissue No -Bleeding Controlled with Pressure -Treatment Response Procedure Tolerated Well #14- LT POPLITEAL FOLD -Time 16:04 -Correct Patient Yes -Correct Side, Site, Position Yes -Correct Procedure Yes -Procedure Performed Yes -Post Debridement Size (cm) - Length 0 -Post Debridement Size (cm) - Width 0 -Post Debridement Size (cm) - Depth 0 -Total Square Cm 0 -Wound/Ulcer Outcome Healed- Epithelialized -Ulcer Cleansing hibiclens -Foul Odor after Cleansing No -Bioengineered Tissue No -Bleeding Controlled with NA -Treatment Response Procedure Tolerated Well #15 Right Heel -Time 16:06 18:25 11:20 -Correct Patient Yes Yes Yes -Correct Side, Site, Position Yes Yes Yes -Correct Procedure Yes Yes Yes -Procedure Performed Yes Yes Yes -Type of Procedure Debridement -Clinical Debridement Subcutaneous -Post Debridement Size (cm) - Length 4.0 4.2 4.7 -Post Debridement Size (cm) - Width 5.2 5.5 5.5 -Post Debridement Size (cm) - Depth 0.4 0.3 0.5 -Total Square Cm 20.80 23.10 25.85 -Wound/Ulcer Outcome Not Healed Not Healed Not Healed -Ulcer Cleansing hibiclens Rinsed/ Rinsed/ Irrigated with Irrigated with Saline Saline -Foul Odor after Cleansing No No No -Bioengineered Tissue No No No -Bleeding Controlled with NA NA Pressure Pressure -Other leave sutures NO DEBRIDEMENT intact cover TODAY LEAVE with adaptic SUTURES INTACT -Treatment Response Procedure Procedure Procedure Tolerated Well Tolerated Well Tolerated Well #12 R LE Cluster -Time 16:07 -Correct Patient Yes -Correct Side, Site, Position Yes -Correct Procedure Yes -Procedure Performed Yes -Post Debridement Size (cm) - Length 0 -Post Debridement Size (cm) - Width 0 -Post Debridement Size (cm) - Depth 0 -Total Square Cm 0 -Wound/Ulcer Outcome Healed- Epithelialized -Ulcer Cleansing hibclens -Foul Odor after Cleansing No -Bioengineered Tissue No -Bleeding Controlled with NA #11 RIGHT PROXIMAL LE -Time 16:08 -Correct Patient Yes -Correct Side, Site, Position Yes -Correct Procedure Yes -Procedure Performed Yes -Post Debridement Size (cm) - Length 0 -Post Debridement Size (cm) - Width 0 -Post Debridement Size (cm) - Depth 0 -Total Square Cm 0 -Wound/Ulcer Outcome Healed- Epithelialized -Ulcer Cleansing hibiclens -Foul Odor after Cleansing No -Bioengineered Tissue No -Bleeding Controlled with NA #10- RIGHT LATERAL -Time 16:09 -Correct Patient Yes -Correct Side, Site, Position Yes -Correct Procedure Yes -Procedure Performed Yes -Post Debridement Size (cm) - Length 0 -Post Debridement Size (cm) - Width 0 -Post Debridement Size (cm) - Depth 0 -Total Square Cm 0 -Wound/Ulcer Outcome Healed- Epithelialized -Ulcer Cleansing hibiclens -Foul Odor after Cleansing No -Bioengineered Tissue No -Bleeding Controlled with NA #19 RIGHt norman -Time 16:10 11:22 -Correct Patient Yes Yes -Correct Side, Site, Position Yes Yes -Correct Procedure Yes Yes -Procedure Performed Yes Yes -Type of Procedure Debridement -Clinical Debridement Subcutaneous -Post Debridement Size (cm) - Length 0 0.8 -Post Debridement Size (cm) - Width 0 0.8 -Post Debridement Size (cm) - Depth 0 0.1 -Total Square Cm 0 0.64 -Wound/Ulcer Outcome Healed- Not Healed Epithelialized -Ulcer Cleansing hibiclens Rinsed/ Irrigated with Saline -Foul Odor after Cleansing No No -Bioengineered Tissue No No -Bleeding Controlled with NA Pressure -Treatment Response Procedure Tolerated Well #6 R Med Lower Leg -Time 16:10 -Correct Patient Yes -Correct Side, Site, Position Yes -Correct Procedure Yes -Procedure Performed Yes -Post Debridement Size (cm) - Length 0 -Post Debridement Size (cm) - Width 0 -Post Debridement Size (cm) - Depth 0 -Total Square Cm 0 -Wound/Ulcer Outcome Healed- Epithelialized -Ulcer Cleansing hibiclens -Foul Odor after Cleansing No -Bioengineered Tissue No -Bleeding Controlled with NA #16 Right Foot-Toes -Time 16:13 18:26 11:21 -Correct Patient Yes Yes Yes -Correct Side, Site, Position Yes Yes Yes -Correct Procedure Yes Yes Yes -Procedure Performed Yes Yes Yes -Type of Procedure Debridement -Clinical Debridement Subcutaneous -Post Debridement Size (cm) - Length 1.5 11.2 0.4 -Post Debridement Size (cm) - Width 0.2 9.6 0.9 -Post Debridement Size (cm) - Depth 0.1 0.1 0.1 -Total Square Cm 0.30 107.52 0.36 -Wound/Ulcer Outcome Not Healed Not Healed Not Healed -Ulcer Cleansing hibiclens Rinsed/ Rinsed/ Irrigated with Irrigated with Saline Saline -Foul Odor after Cleansing No No No -Bioengineered Tissue No No No -Bleeding Controlled with NA NA Pressure -Other NO DEBRIDEMENT TODAY -Treatment Response Procedure Procedure Tolerated Well Tolerated Well #1 BTK Left Stump cluster -Time 16:14 -Correct Patient Yes -Correct Side, Site, Position Yes -Correct Procedure Yes -Procedure Performed Yes -Post Debridement Size (cm) - Length 0 -Post Debridement Size (cm) - Width 0 -Post Debridement Size (cm) - Depth 0 -Total Square Cm 0 -Wound/Ulcer Outcome Healed- Epithelialized -Ulcer Cleansing hibiclens -Foul Odor after Cleansing No -Bioengineered Tissue No -Bleeding Controlled with NA Pain Scale: 0-10 Numeric Is Patient Pain Free? Yes Yes Yes 10/27/17 11:04 Wound Center Nurse 2 #20-right plantar foot -Time 11:08 -Correct Patient Yes -Correct Side, Site, Position Yes -Correct Procedure Yes -Procedure Performed Yes -Type of Procedure Debridement -Clinical Debridement Subcutaneous -Post Debridement Size (cm) - Length 1.0 -Post Debridement Size (cm) - Width 0.5 -Post Debridement Size (cm) - Depth 0.1 -Total Square Cm 0.50 -Wound/Ulcer Outcome Not Healed -Ulcer Cleansing Rinsed/ Irrigated with Saline -Foul Odor after Cleansing No -Bioengineered Tissue No -Bleeding Controlled with Pressure -Treatment Response Procedure Tolerated Well #14- LT POPLITEAL FOLD -Time -Correct Patient -Correct Side, Site, Position -Correct Procedure -Procedure Performed -Post Debridement Size (cm) - Length -Post Debridement Size (cm) - Width -Post Debridement Size (cm) - Depth -Total Square Cm -Wound/Ulcer Outcome -Ulcer Cleansing -Foul Odor after Cleansing -Bioengineered Tissue -Bleeding Controlled with -Treatment Response #15 Right Heel -Time 11:05 -Correct Patient Yes -Correct Side, Site, Position Yes -Correct Procedure Yes -Procedure Performed Yes -Type of Procedure Debridement -Clinical Debridement Subcutaneous -Post Debridement Size (cm) - Length 5.1 -Post Debridement Size (cm) - Width 6.1 -Post Debridement Size (cm) - Depth 0.3 -Total Square Cm 31.11 -Wound/Ulcer Outcome Not Healed -Ulcer Cleansing Rinsed/ Irrigated with Saline -Foul Odor after Cleansing No -Bioengineered Tissue No -Bleeding Controlled with Pressure -Other -Treatment Response Procedure Tolerated Well #12 R LE Cluster -Time -Correct Patient -Correct Side, Site, Position -Correct Procedure -Procedure Performed -Post Debridement Size (cm) - Length -Post Debridement Size (cm) - Width -Post Debridement Size (cm) - Depth -Total Square Cm -Wound/Ulcer Outcome -Ulcer Cleansing -Foul Odor after Cleansing -Bioengineered Tissue -Bleeding Controlled with #11 RIGHT PROXIMAL LE -Time -Correct Patient -Correct Side, Site, Position -Correct Procedure -Procedure Performed -Post Debridement Size (cm) - Length -Post Debridement Size (cm) - Width -Post Debridement Size (cm) - Depth -Total Square Cm -Wound/Ulcer Outcome -Ulcer Cleansing -Foul Odor after Cleansing -Bioengineered Tissue -Bleeding Controlled with #10- RIGHT LATERAL -Time -Correct Patient -Correct Side, Site, Position -Correct Procedure -Procedure Performed -Post Debridement Size (cm) - Length -Post Debridement Size (cm) - Width -Post Debridement Size (cm) - Depth -Total Square Cm -Wound/Ulcer Outcome -Ulcer Cleansing -Foul Odor after Cleansing -Bioengineered Tissue -Bleeding Controlled with #19 RIGHt norman -Time 11:05 -Correct Patient Yes -Correct Side, Site, Position Yes -Correct Procedure Yes -Procedure Performed Yes -Type of Procedure Debridement -Clinical Debridement Subcutaneous -Post Debridement Size (cm) - Length 0.8 -Post Debridement Size (cm) - Width 0.5 -Post Debridement Size (cm) - Depth 0.1 -Total Square Cm 0.40 -Wound/Ulcer Outcome Not Healed -Ulcer Cleansing Rinsed/ Irrigated with Saline -Foul Odor after Cleansing No -Bioengineered Tissue No -Bleeding Controlled with Pressure -Treatment Response Procedure Tolerated Well #6 R Med Lower Leg -Time -Correct Patient -Correct Side, Site, Position -Correct Procedure -Procedure Performed -Post Debridement Size (cm) - Length -Post Debridement Size (cm) - Width -Post Debridement Size (cm) - Depth -Total Square Cm -Wound/Ulcer Outcome -Ulcer Cleansing -Foul Odor after Cleansing -Bioengineered Tissue -Bleeding Controlled with #16 Right Foot-Toes -Time 11:06 -Correct Patient Yes -Correct Side, Site, Position Yes -Correct Procedure Yes -Procedure Performed Yes -Type of Procedure Debridement -Clinical Debridement Subcutaneous -Post Debridement Size (cm) - Length 6.1 -Post Debridement Size (cm) - Width 8 -Post Debridement Size (cm) - Depth 0.2 -Total Square Cm 48.8 -Wound/Ulcer Outcome Not Healed -Ulcer Cleansing Rinsed/ Irrigated with Saline -Foul Odor after Cleansing No -Bioengineered Tissue No -Bleeding Controlled with Pressure -Other -Treatment Response Procedure Tolerated Well #1 BTK Left Stump cluster -Time -Correct Patient -Correct Side, Site, Position -Correct Procedure -Procedure Performed -Post Debridement Size (cm) - Length -Post Debridement Size (cm) - Width -Post Debridement Size (cm) - Depth -Total Square Cm -Wound/Ulcer Outcome -Ulcer Cleansing -Foul Odor after Cleansing -Bioengineered Tissue -Bleeding Controlled with Pain Scale: 0-10 Numeric Is Patient Pain Free? Yes Wound debrided: heel Laterality: Right Wound Grade/Stage: grade 3 Type of Debridement: Excisional debridement Anesthesia Used: 5% Lidocaine Gel Depth: in the subcutaneous layer Percentage of wound debrided: 100 Instrument Used: #15 blade Tissue Removed: fibrous, devitalized subcutaneous, biofilm, slough Severity: Fat Layer Exposed Amount of bleeding with debridement: Mild Bleeding Controlled with: Pressure Patient tolerated procedure well - Additional Wound Wound debrided: toe cluster Laterality: Right Wound Grade/Stage: grade 1 Type of Debridement: Excisional debridement Anesthesia Used: 5% Lidocaine Gel Depth: in the subcutaneous layer Percentage of wound debrided: - - 15% Instrument Used: #15 blade Tissue Removed: fibrous, devitalized subcutaneous, biofilm, slough Severity: Fat Layer Exposed Amount of bleeding with debridement: Mild Bleeding Controlled with: Pressure Patient tolerated procedure: Patient tolerated procedure well Assessment/Plan Active Problems Complete below knee amputation of left lower extremity (Chronic) Ulcer of right foot with fat layer exposed (Chronic) Ulcer of right foot with necrosis of muscle (Chronic) Chronic kidney disease (CKD) (Chronic) BKA stump complication (Chronic) Type 2 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with diabetic polyneuropathy (Chronic) Venous insufficiency (Chronic) Lymphedema (Chronic) Edema of both legs (Chronic) Assessment: ulcer right forefoot - returned (digits 2 and 4). Ulcers right leg healed. right heel ulcer muscle involved and exposed fascia without infection noted today; s/p surgical debridement and application of advance wound care products (amniofil and epicord)-no longer deep tissue exposed. Lymphedema. Chronic lower extremity edema and venous insufficiency. Morbid obesity. Type 2 diabetes uncontrolled with peripheral neuropathy. CKD. Hypertension. Left below-knee amputation. Malnutrition. Delayed wound healing. Nonadherence to treatment plan Plan: His ulcer sites were evaluated as noted in the clinical panel. I discussed his care plan. All of the ulcer sites are debrided noted in the clinical. debridement was performed as noted in the clinical panel to all sites. The site was cleansed. Guera was applied today and he was advised to changes daily. A dressing was applied today with additional compression dressings; to continue dressing changes with home health. I recommend application of Guera to the wound sites. He needs continued help with cleaning his home and personal hygiene and a pretty prescription recommending continued home health care. Preauthorization for advanced wound care product, epicord, was initiated and this is still pending. He has responded this well after his operating room application and a serial application of clinical setting will be implemented upon approval. This is medically necessary for limb salvage he is high risk for; limb loss. He has tried traditional wound care products, surgical debridement, offloading, diabetes management, antibiotic treatment, infectious disease consultation, serial debridements which have failed to complete wound closure. Therefore this is medically necessary and I recommend this treatment course. His diabetes has been managed medically with his primary care physician, he has had nutrition recommendations and guidance provided during his hospital admission, and serial routine educational sessions while he is at the wound care center and the importance of glycemic control. Patient to continue left 3M to 2L dressing which is applied today from the distal right foot to thigh as well as his left below knee amputation stump site to the thigh. It is noted the skin is very friable and he is high risk for continued ulcers. I am concerned of ongoing fluid accumulation; he was advised to get compliant with the wheel chair leg rests and to resume his compression pumps at home. He is now considered on complex care due to inability to fully adhere to the treatment program. CircAid thigh-high were ordered for the right lower extremity; he understands this is a graduated compression device. It is noted he had previous vascular surgery intervention. He had stents placed to improve arterial perfusion. He will follow-up with him as needed at this point. His noninvasive vascular arterial studies were reviewed and his COY is 1.05 on the right lower extremity. This will be monitored. To continue with nutritional supplementation, Glucerna. His diabetes is uncontrolled and he understands he is at risk for limb loss. To continue with proper glycemic control medical management to optimize healing. I answered all his questions. To return to clinic in one week or call sooner if questions or concerns. The post debridement measurements are as follows 15% of right toe cluster which measures 8.1 x 7.7 x 0.2 cm (total 15% measurement is 9.36 sq cm), right heel post debridement measures 4.4 x 5.5 x 0.1 cm (total debrided was 24.2 sq cm), and the right norman and plantar right foot ulcers have healed and are fully epithelialized. The debridement was performed and an excisional subcutaneous manner with a 15 blade. He tolerated this well with 5% lidocaine plain solution applied prior to debridement. Pressure was applied to maintain hemostasis. A dressing was applied as noted above.
== END 2017-11-04 23:59 ==
LOC: WC 10:30
PROVIDERS: Visit Provider Podiatrist
DX: L97.513 Non-pressure chronic ulcer of other part of right foot with necrosis of muscle (principal); L97.512 Non-pressure chronic ulcer of other part of right foot with fat layer exposed; N18.9 Chronic kidney disease, unspecified; T87.9 Unspecified complications of amputation stump; E11.42 Type 2 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with diabetic polyneuropathy; I87.2 Venous insufficiency (chronic) (peripheral); R60.0 Localized edema; Z89.512 Acquired absence of left leg below knee; E46 Unspecified protein-calorie malnutrition; E66.01 Morbid (severe) obesity due to excess calories
CPT/HCPCS: 11042; 11045; 29581; 99214; G0463

== ENCOUNTER 2017-11-04 11:00 | Outpatient (RCR) | payer MEDICARE, MEDICAID, SELFPAY | END 2017-11-04 23:59 | LOC: DC 11:00 | PROVIDERS: Visit Provider Podiatrist | DX: E11.42 Type 2 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with diabetic polyneuropathy (principal); E46 Unspecified protein-calorie malnutrition; T14.90XA Injury, unspecified, initial encounter; Z71.3 Dietary counseling and surveillance | CPT/HCPCS: G0108 ==

== ENCOUNTER → 2017-11-04 12:17 | Outpatient (CLI) | payer MEDICARE, MEDICAID, SELFPAY ==
[2017-11-04 13:09] LABS: Hematocrit 30.7 % (40-54); Hemoglobin 9.4 g/dl (13.0-16.5); Mean Corp Hgb Conc 30.6 g/gl (32-36); Mean Platelet Vol. 9.9 fl (6.2-12.0); Platelet Count 205 K/mm3 (150-450); RBC Distribution Width CV 16.9 % (11.6-14.6); RBC Distribution Width SD 52.3 fl (35.1-43.9); Red Blood Count 3.61 M/mm3 (4.6-6.2); Scan Indicated on CBC? Y/N NO
[2017-11-04 13:48] LABS: Albumin, Serum 2.9 g/dL (3.2-5.0); BUN 51 mg/dL (7-18); BUN/Creat Ratio 26.6 RATIO (10-20); Chloride 105 mmol/L (98-107); Creatinine, Serum 1.92 mg/dL (0.70-1.30); EST Glomerular Filtration Rate 38 mL/min (>60); Est Glom Filt Rate - Afr Amer 46 mL/min (>60); Glucose 154 mg/dL (74-106); Phosphorus 3.4 mg/dL (2.5-4.9); Potassium 4.8 mmol/L (3.5-5.1); Sodium Level 142 mmol/L (136-145)
[2017-11-05 12:22] LABS: PTHIN 38.9 pg/mL (18.4-80.1)
== END ==
PROVIDERS: Family Provider Family Medicine Geriatric Medicine; PCP Family Medicine Geriatric Medicine; Visit Provider Internal Medicine Nephrology
DX: N18.3 Chronic kidney disease, stage 3 (moderate) (principal)
CPT/HCPCS: 36415; 80069; 83970; 85027; G0108

== ENCOUNTER 2017-12-01 10:00 | Outpatient (RCR) | payer MEDICARE, MEDICAID, SELFPAY ==
[2017-11-05 01:06] VITALS: BP 118/67; PULSE 91; RESP 18; TEMP 35.7
--- NOTE | 2017-11-17 11:16 | PN.PCM_ITS ---
(1) Ulcer of right foot with fat layer exposed Status: Chronic Current Visit: Yes Code(s): L97.512 - Non-pressure chronic ulcer of other part of right foot with fat layer exposed (2) Ulcer of left lower extremity, limited to breakdown of skin Status: Acute Current Visit: Yes Code(s): L97.921 - Non-pressure chronic ulcer of unspecified part of left lower leg limited to breakdown of skin (3) Ulcer of right lower extremity with fat layer exposed Status: Resolved Current Visit: Yes Code(s): L97.912 - Non-pressure chronic ulcer of unspecified part of right lower leg with fat layer exposed (4) Complete below knee amputation of left lower extremity Status: Chronic Current Visit: Yes Code(s): S88.112A - Complete traumatic amputation at level between knee and ankle, left lower leg, initial encounter (5) PAOD (peripheral arterial occlusive disease) Status: Chronic Current Visit: Yes Code(s): I77.9 - Disorder of arteries and arterioles, unspecified (6) Chronic kidney disease (CKD) Status: Chronic Current Visit: Yes Qualifiers: Code(s): N18.9 - Chronic kidney disease, unspecified (7) Type 2 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with diabetic polyneuropathy Status: Chronic Current Visit: Yes Code(s): E11.42 - Type 2 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with diabetic polyneuropathy (8) Delayed wound healing Status: Chronic Current Visit: Yes Code(s): T14.8 - Other injury of unspecified body region (9) Malnutrition Status: Chronic Current Visit: Yes Code(s): E46 - Unspecified protein- calorie malnutrition (10) Venous insufficiency Status: Chronic Current Visit: Yes Code(s): I87.2 - Venous insufficiency ( chronic) (peripheral) (11) Lymphedema Status: Chronic Current Visit: Yes Code(s): I89.0 - Lymphedema, not elsewhere classified Type of Wound Date of Service: 11/17/17 Chief Complaint: right foot ulcer right second plantar toe and right fourth distal toe healed. right heel ulcer s/p surgical intervention. Right leg ulcer healed. Dorsal second toe return ulcer. no acute signs of infection today History of Wound: 57-year-old white male returns to clinic for follow-up of bilateral leg ulcers and right foot ulcers. He denies fever, chill, nausea, vomiting, loss of appetite. He underwent surgical debridement application of advanced wound care products, Amniofil and epi fix September 14, 2017. He is increased with elevation at home and his leg size is significantly reduced. Presents in a wheelchair today. Progress of Wound: improving right heel - Physical Exam Vital Signs Temp Pulse Resp BP 96.2 F L 91 18 118/67 11/05/17 01:06 11/05/17 01:06 11/05/17 01:06 11/05/17 01:06 General: Alert, Oriented x3, Cooperative HEENT: Atraumatic Extremities: No cyanosis, Capillary Refill Less than 3 Seconds, No Calf Tenderness - Negative Harry and Badillo right lower extremity, Diminished Peripheral Pulses, Edema - Continued bilateral lower extremities but decreased compared to last week, - - Below-knee amputation left Skin: Ulcer/ Wound - No purulence, no erythema, string, no odor, no exposed bone or deeper tissue, no necrosis, no acute infection bilateral lower extremities. The skin to the left below-knee amputation stump site is sub- hemorrhagic and has progressive weeping. There is a bulbous edema appearance to the stump site. The right heel site has improved granulation tissue without any deeper eschar tissue exposed. There is epithelialization that is complete to the right leg as well as the plantar foot. There is a dorsal second toe wound that has a granular fibrous base. The peripheral skin is atrophic and hairless. Wound Measurements and Assessment - Nurse 2 - General Ulcer CM Notes Start: 11/17/17 09:42 Freq: Status: Active Protocol: Activity Type Activity Date Activity User E-Sign Co-Sign Detail Recorded Client Recorded Date Recorded By Document 11/17/17 10:36 [id number] 11/17/17 10:39 ANUP 11/17/17 10:36 Wound Center Nurse 2 [Procedure/Treatment] 18-right plantar foot -Correct Patient No -Correct Side, Site, Position No -Correct Procedure No -Procedure Performed No -Post Debridement Size (cm) - Length 0 -Post Debridement Size (cm) - Width 0 -Post Debridement Size (cm) - Depth 0 -Total Square Cm 0 -Wound/Ulcer Outcome Healed- Epithelialized #13 R Med Heel -Time 10:36 -Correct Patient Yes -Correct Side, Site, Position Yes -Correct Procedure Yes -Procedure Performed Yes -Type of Procedure Debridement -Clinical Debridement Subcutaneous -Post Debridement Size (cm) - Length 4.3 -Post Debridement Size (cm) - Width 5.5 -Post Debridement Size (cm) - Depth 0.1 -Total Square Cm 23.65 -Wound/Ulcer Outcome Not Healed -Ulcer Cleansing Rinsed/ Irrigated with Saline -Foul Odor after Cleansing No -Bioengineered Tissue No -Bleeding Controlled with Pressure -Treatment Response Procedure Tolerated Well #9 RIGHt norman -Correct Patient No -Correct Side, Site, Position No -Correct Procedure No -Procedure Performed No -Post Debridement Size (cm) - Length 0 -Post Debridement Size (cm) - Width 0 -Post Debridement Size (cm) - Depth 0 -Total Square Cm 0 -Wound/Ulcer Outcome Healed- Epithelialized #3 Right Foot-Toes w/Metatarsal Head circumfrential -Time 10:38 -Correct Patient Yes -Correct Side, Site, Position Yes -Correct Procedure Yes -Procedure Performed Yes -Type of Procedure Debridement -Clinical Debridement Subcutaneous -Post Debridement Size (cm) - Length 2.4 -Post Debridement Size (cm) - Width 1.7 -Post Debridement Size (cm) - Depth 0.1 -Total Square Cm 4.08 -Wound/Ulcer Outcome Not Healed -Ulcer Cleansing Rinsed/ Irrigated with Saline -Foul Odor after Cleansing No -Bioengineered Tissue No -Bleeding Controlled with Pressure -Treatment Response Procedure Tolerated Well [See Physician Procedure note for Specifics] Pain Scale: 0-10 Numeric [Pain] -Is Patient Pain Free? Yes Musculoskeletal: No Tenderness to Palpation of Joints or Extremities, Muscle Wasting Neurological: - - Lack of epicritic sensation light touch bilateral Psych/Mental Status: Normal Affect, Appropriate Debridement Note Post-Debridement Measurements/Treatment WC - Nurse 2 - General Ulcer CM Notes Start: 11/17/17 09:42 Freq: Status: Active Protocol: Activity Type Activity Date Activity User E-Sign Co-Sign Detail Recorded Client Recorded Date Recorded By Document 11/17/17 10:36 ANUP [id number] 11/17/17 10:39 ANUP 11/17/17 10:36 Wound Center Nurse 2 18-right plantar foot -Correct Patient No -Correct Side, Site, Position No -Correct Procedure No -Procedure Performed No -Post Debridement Size (cm) - Length 0 -Post Debridement Size (cm) - Width 0 -Post Debridement Size (cm) - Depth 0 -Total Square Cm 0 -Wound/Ulcer Outcome Healed- Epithelialized #13 R Med Heel -Time 10:36 -Correct Patient Yes -Correct Side, Site, Position Yes -Correct Procedure Yes -Procedure Performed Yes -Type of Procedure Debridement -Clinical Debridement Subcutaneous -Post Debridement Size (cm) - Length 4.3 -Post Debridement Size (cm) - Width 5.5 -Post Debridement Size (cm) - Depth 0.1 -Total Square Cm 23.65 -Wound/Ulcer Outcome Not Healed -Ulcer Cleansing Rinsed/ Irrigated with Saline -Foul Odor after Cleansing No -Bioengineered Tissue No -Bleeding Controlled with Pressure -Treatment Response Procedure Tolerated Well #9 RIGHt norman -Correct Patient No -Correct Side, Site, Position No -Correct Procedure No -Procedure Performed No -Post Debridement Size (cm) - Length 0 -Post Debridement Size (cm) - Width 0 -Post Debridement Size (cm) - Depth 0 -Total Square Cm 0 -Wound/Ulcer Outcome Healed- Epithelialized #3 Right Foot-Toes w/Metatarsal Head circumfrential -Time 10:38 -Correct Patient Yes -Correct Side, Site, Position Yes -Correct Procedure Yes -Procedure Performed Yes -Type of Procedure Debridement -Clinical Debridement Subcutaneous -Post Debridement Size (cm) - Length 2.4 -Post Debridement Size (cm) - Width 1.7 -Post Debridement Size (cm) - Depth 0.1 -Total Square Cm 4.08 -Wound/Ulcer Outcome Not Healed -Ulcer Cleansing Rinsed/ Irrigated with Saline -Foul Odor after Cleansing No -Bioengineered Tissue No -Bleeding Controlled with Pressure -Treatment Response Procedure Tolerated Well Pain Scale: 0-10 Numeric Is Patient Pain Free? Yes Wound debrided: heel Laterality: Right Wound Grade/Stage: grade 3 Type of Debridement: Excisional debridement Anesthesia Used: 5% Lidocaine Gel Depth: in the subcutaneous layer Percentage of wound debrided: 100 Instrument Used: #15 blade Tissue Removed: fibrous, devitalized subcutaneous, biofilm, slough Severity: Fat Layer Exposed Amount of bleeding with debridement: Mild Bleeding Controlled with: Pressure Patient tolerated procedure well - Additional Wound Wound debrided: dorsal 2 toe Laterality: Right Wound Grade/Stage: grade 1 Type of Debridement: Excisional debridement Anesthesia Used: 5% Lidocaine Gel Depth: in the subcutaneous layer Percentage of wound debrided: 100 Instrument Used: #15 blade Tissue Removed: fibrous, devitalized subcutaneous, biofilm, slough Severity: Fat Layer Exposed Amount of bleeding with debridement: Mild Bleeding Controlled with: Pressure Patient tolerated procedure: Patient tolerated procedure well Assessment/Plan Active Problems Ulcer of left lower extremity, limited to breakdown of skin (Acute) Complete below knee amputation of left lower extremity (Chronic) Ulcer of right foot with fat layer exposed (Chronic) PAOD (peripheral arterial occlusive disease) (Chronic) Chronic kidney disease (CKD) (Chronic) Type 2 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with diabetic polyneuropathy (Chronic) Delayed wound healing (Chronic) Malnutrition (Chronic) Venous insufficiency (Chronic) Lymphedema (Chronic) Assessment: ulcer right forefoot - returned (digits 2 now, healed 4). Ulcers right leg healed. right heel ulcer muscle involved and exposed fascia without infection noted today; s/p surgical debridement and application of advance wound care products (amniofil and epicord)-no longer deep tissue exposed. Lymphedema. Chronic lower extremity edema and venous insufficiency. Morbid obesity. Type 2 diabetes uncontrolled with peripheral neuropathy. CKD. Hypertension. Left below-knee amputation. Malnutrition. Delayed wound healing. Nonadherence to treatment plan Plan: His ulcer sites were evaluated as noted in the clinical panel. I discussed his care plan. All of the ulcer sites are debrided noted in the clinical. debridement was performed as noted in the clinical panel to all sites. The site was cleansed. Guera was applied today and he was advised to changes daily. A dressing was applied today with additional compression dressings; to continue dressing changes with home health. I recommend application of Guera to the wound sites. He needs continued help with cleaning his home and personal hygiene and a prescription recommending continued home health care as previously provided. Preauthorization for advanced wound care product, epicord, was initiated and this is still pending. An appeal letter was prepared last week. He has responded this well after his operating room application and a serial application of clinical setting will be implemented upon approval. This is medically necessary for limb salvage he is high risk for; limb loss. He has tried traditional wound care products, surgical debridement, offloading, diabetes management, antibiotic treatment, infectious disease consultation, serial debridements which have failed to complete wound closure. Therefore this is medically necessary and I recommend this treatment course. His diabetes has been managed medically with his primary care physician, he has had nutrition recommendations and guidance provided during his hospital admission, and serial routine educational sessions while he is at the wound care center and the importance of glycemic control. Patient to continue left 3M to 2L dressing which is applied today from the distal right foot to thigh as well as his left below knee amputation stump site to the thigh. It is noted the skin is very friable and he is high risk for continued ulcers. I am concerned of ongoing fluid accumulation; he was advised to get compliant with the wheel chair leg rests and to resume his compression pumps at home. To continue aggressive elevation; it is noted this has helped with his edema reduction this past week. He is now considered on complex care due to inability to fully adhere to the treatment program. CircAid thigh-high were ordered for the right lower extremity; he understands this is a graduated compression device. It is noted he had previous vascular surgery intervention. He had stents placed to improve arterial perfusion. He will follow-up with him as needed at this point. His noninvasive vascular arterial studies were reviewed and his COY is 1.05 on the right lower extremity. This will be monitored. To continue with nutritional supplementation, Glucerna. His diabetes is uncontrolled and he understands he is at risk for limb loss. To continue with proper glycemic control medical management to optimize healing. I answered all his questions. To return to clinic in one week or call sooner if questions or concerns.
[2017-11-24 09:54] VITALS: BP 120/60; PULSE 91; RESP 18; TEMP 36.3
--- NOTE | 2017-11-24 10:30 | PCM.WC.PN ---
(1) Ulcer of right foot with fat layer exposed Status: Chronic Current Visit: Yes Code(s): L97.512 - Non-pressure chronic ulcer of other part of right foot with fat layer exposed (2) Ulcer of left lower extremity, limited to breakdown of skin Status: Chronic Current Visit: Yes Code(s): L97.921 - Non-pressure chronic ulcer of unspecified part of left lower leg limited to breakdown of skin (3) Complete below knee amputation of left lower extremity Status: Resolved Current Visit: Yes Code(s): S88.112A - Complete traumatic amputation at level between knee and ankle, left lower leg, initial encounter (4) PAOD (peripheral arterial occlusive disease) Status: Chronic Current Visit: Yes Code(s): I77.9 - Disorder of arteries and arterioles, unspecified (5) Chronic kidney disease (CKD) Status: Chronic Current Visit: Yes Qualifiers: Code(s): N18.9 - Chronic kidney disease, unspecified (6) Type 2 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with diabetic polyneuropathy Status: Chronic Current Visit: Yes Code(s): E11.42 - Type 2 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with diabetic polyneuropathy (7) Delayed wound healing Status: Chronic Current Visit: Yes Code(s): T14.8 - Other injury of unspecified body region (8) Malnutrition Status: Chronic Current Visit: Yes Code(s): E46 - Unspecified protein-calorie malnutrition (9) Venous insufficiency Status: Chronic Current Visit: Yes Code(s): I87.2 - Venous insufficiency (chronic) (peripheral) (10) Lymphedema Status: Chronic Current Visit: Yes Code(s): I89.0 - Lymphedema, not elsewhere classified Type of Wound Date of Service: 11/24/17 Chief Complaint: right foot ulcer right second plantar toe and right fourth distal toe healed. right heel ulcer s/p surgical intervention - grade 3. Right leg ulcer healed. no acute signs of infection today History of Wound: 57-year-old white male returns to clinic for follow-up of bilateral leg ulcers and right foot ulcers. He denies fever, chill, nausea, vomiting, loss of appetite. He underwent surgical debridement application of advanced wound care products, Amniofil and epi fix September 14, 2017. He is increased with elevation at home and his leg size is significantly reduced. Presents in a wheelchair today. She is amenable to undergo hyperbaric oxygen therapy if he is medically safe and able to set up transportation. This was previously discussed when he had an open wound in the past transportation was limiting factor and he would like to revisit this again at this time. He denies odors or redness. He has demonstrated significant delays in healing. An appeal letter has been previously submitted for application of advanced wound care product, epi fix; this is still pending. Progress of Wound: improving right heel. Healed right forefoot. Stable left leg - Physical Exam Vital Signs Temp Pulse Resp BP 97.3 F L 91 18 120/60 11/24/17 09:54 11/24/17 09:54 11/24/17 09:54 11/24/17 09:54 General: Alert, Oriented x3, Cooperative Extremities: No cyanosis, Capillary Refill Less than 3 Seconds, No Calf Tenderness - Negative [place] right, Diminished Peripheral Pulses, Edema - Bilateral lower extremities Skin: Ulcer/ Wound - No purulence, erythema, streaking, no odor, no infection bilateral lower extremities. There is some hemorrhagic exposed left limb tissue without subcutaneous or deeper tissue noted. The right forefoot has full epithelialization with continued maceration; no exposed subcutaneous tissue or deep tissues noted to the forefoot. The right heel previous grade 3 ulcer has increased granulation tissue and continued interspersed fibrous tissue. The peripheral skin is atrophic and hairless bilateral Wound Measurements and Assessment WC - Nurse 1 - General Ulcer Measurement Start: 11/17/17 09:42 Freq: Status: Active Protocol: Activity Type Activity Date Activity User E-Sign Co-Sign Detail Recorded Client Recorded Date Recorded By Document 11/24/17 09:54 [id number] 11/24/17 10:12 RB 11/24/17 09:54 Wound Center Nurse 1 [Ulcer Assessment] #13 R Med Heel -Combined with other wound No -Current Size (cm) - Length 4.3 -Current Size (cm) - Width 5.2 -Current Size (cm) - Depth 0.2 -Total Square Cm 22.36 -Tunneling No -Undermining/Tunneling No -Circular Undermining No -Classification - Thickness Full Thickness without Exposed Support Structure -Exudate Amt Medium (34-66%) -Exudate Type Serosanguineous -Wound Margin Distinct, Outline Attached -Granulation Amt Medium (34-66%) -Granulation Quality [place] -Slough/Fibrin Yes -Necrosis Amt Small (1-33%) -Necrotic Tissue Type Adherent Slough -Structure Exposed N/A -Texture (Martha-wound Skin Appearance) Callus -Moisture (Martha-wound Skin Appearance Assessed ) Maceration -Color (Martha-wound Skin Appearance) Assessed -Temperature (Martha-wound Skin No Abnormality Appearance) (Pt Warm) -Tenderness on Palpation (Martha-wound No Skin Appearance) -Ulcer Cleansing Wound Cleanser -Foul Odor after Cleansing No -Anesthetic Used 5% Lidocaine Gel #3 Right Foot-Toes w/Metatarsal Head circumfrential -Combined with other wound No -Current Size (cm) - Length 6 -Current Size (cm) - Width 5.5 -Current Size (cm) - Depth 0.2 -Total Square Cm 33.0 -Tunneling No -Undermining/Tunneling No -Circular Undermining No -Classification - Thickness Full Thickness without Exposed Support Structure -Exudate Amt Medium (34-66%) -Exudate Type Serosanguineous -Wound Margin Distinct, Outline Attached -Granulation Amt Medium (34-66%) -Granulation Quality [place] -Slough/Fibrin Yes -Necrosis Amt Medium (34-66%) -Necrotic Tissue Type Adherent Slough -Structure Exposed N/A -Texture (Martha-wound Skin Appearance) Localized Edema -Moisture (Martha-wound Skin Appearance Maceration ) -Color (Martha-wound Skin Appearance) Assessed -Temperature (Martha-wound Skin No Abnormality Appearance) (Pt Warm) -Tenderness on Palpation (Martha-wound No Skin Appearance) -Ulcer Cleansing Wound Cleanser -Foul Odor after Cleansing No -Anesthetic Used 4% Lidocaine Solution [Edema Assessment] -Lower Limb Edema Present Yes -Right Calf (cm) 37.1 -Right Ankle (cm) 29 WC - Nurse 2 - General Ulcer CM Notes Start: 11/17/17 09:42 Freq: Status: Active Protocol: Activity Type Activity Date Activity User E-Sign Co-Sign Detail Recorded Client Recorded Date Recorded By Document 11/24/17 10:22 ANUP [id number] 11/24/17 10:25 ANUP 11/24/17 10:22 Wound Center Nurse 2 [Procedure/Treatment] #13 R Med Heel -Time 10:22 -Correct Patient Yes -Correct Side, Site, Position Yes -Correct Procedure Yes -Procedure Performed Yes -Type of Procedure Debridement -Clinical Debridement Subcutaneous -Post Debridement Size (cm) - Length 4.4 -Post Debridement Size (cm) - Width 5.2 -Post Debridement Size (cm) - Depth 0.2 -Total Square Cm 22.88 -Wound/Ulcer Outcome Not Healed -Ulcer Cleansing Rinsed/ Irrigated with Saline -Foul Odor after Cleansing No -Bioengineered Tissue No -Bleeding Controlled with Pressure -Treatment Response Procedure Tolerated Well #3 Right Foot-Toes w/Metatarsal Head circumfrential -Correct Patient No -Correct Side, Site, Position No -Correct Procedure No -Procedure Performed No -Post Debridement Size (cm) - Length 0 -Post Debridement Size (cm) - Width 0 -Post Debridement Size (cm) - Depth 0 -Total Square Cm 0 -Wound/Ulcer Outcome Healed- Epithelialized [See Physician Procedure note for Specifics] Pain Scale: 0-10 Numeric [Pain] -Is Patient Pain Free? Yes Musculoskeletal: No Tenderness to Palpation of Joints or Extremities, Muscle Wasting, - - Left below-knee amputation. Bilateral lower extremity lymphedema continues Neurological: - - Lack of epicritic sensation light touch bilateral lower extremities Psych/Mental Status: Normal Affect, Appropriate Debridement Note Post-Debridement Measurements/Treatment WC - Nurse 2 - General Ulcer CM Notes Start: 11/17/17 09:42 Freq: Status: Active Protocol: Activity Type Activity Date Activity User E-Sign Co-Sign Detail Recorded Client Recorded Date Recorded By Document 11/17/17 10:36 [id number] 11/17/17 10:39 Document 11/24/17 10:22 [id number] 11/24/17 10:25 11/17/17 11/24/17 10:36 10:22 Wound Center Nurse 2 18-right plantar foot -Correct Patient No -Correct Side, Site, Position No -Correct Procedure No -Procedure Performed No -Post Debridement Size (cm) - Length 0 -Post Debridement Size (cm) - Width 0 -Post Debridement Size (cm) - Depth 0 -Total Square Cm 0 -Wound/Ulcer Outcome Healed- Epithelialized #13 R Med Heel -Time 10:36 10:22 -Correct Patient Yes Yes -Correct Side, Site, Position Yes Yes -Correct Procedure Yes Yes -Procedure Performed Yes Yes -Type of Procedure Debridement Debridement -Clinical Debridement Subcutaneous Subcutaneous -Post Debridement Size (cm) - Length 4.3 4.4 -Post Debridement Size (cm) - Width 5.5 5.2 -Post Debridement Size (cm) - Depth 0.1 0.2 -Total Square Cm 23.65 22.88 -Wound/Ulcer Outcome Not Healed Not Healed -Ulcer Cleansing Rinsed/ Rinsed/ Irrigated with Irrigated with Saline Saline -Foul Odor after Cleansing No No -Bioengineered Tissue No No -Bleeding Controlled with Pressure Pressure -Treatment Response Procedure Procedure Tolerated Well Tolerated Well #9 RIGHt norman -Correct Patient No -Correct Side, Site, Position No -Correct Procedure No -Procedure Performed No -Post Debridement Size (cm) - Length 0 -Post Debridement Size (cm) - Width 0 -Post Debridement Size (cm) - Depth 0 -Total Square Cm 0 -Wound/Ulcer Outcome Healed- Epithelialized #3 Right Foot-Toes w/Metatarsal Head circumfrential -Time 10:38 -Correct Patient Yes No -Correct Side, Site, Position Yes No -Correct Procedure Yes No -Procedure Performed Yes No -Type of Procedure Debridement -Clinical Debridement Subcutaneous -Post Debridement Size (cm) - Length 2.4 0 -Post Debridement Size (cm) - Width 1.7 0 -Post Debridement Size (cm) - Depth 0.1 0 -Total Square Cm 4.08 0 -Wound/Ulcer Outcome Not Healed Healed- Epithelialized -Ulcer Cleansing Rinsed/ Irrigated with Saline -Foul Odor after Cleansing No -Bioengineered Tissue No -Bleeding Controlled with Pressure -Treatment Response Procedure Tolerated Well Pain Scale: 0-10 Numeric Is Patient Pain Free? Yes Yes Wound debrided: heel Laterality: Right Wound Grade/Stage: grade 3 Type of Debridement: Excisional debridement Anesthesia Used: 5% Lidocaine Gel Depth: in the subcutaneous layer Percentage of wound debrided: 100 Instrument Used: #15 blade Tissue Removed: fibrous, devitalized subcutaneous, biofilm, slough Severity: Fat Layer Exposed Amount of bleeding with debridement: Mild Bleeding Controlled with: Pressure Patient tolerated procedure well Assessment/Plan Active Problems Ulcer of left lower extremity, limited to breakdown of skin (Chronic) Complete below knee amputation of left lower extremity (Chronic) Ulcer of right foot with fat layer exposed (Chronic) PAOD (peripheral arterial occlusive disease) (Chronic) Chronic kidney disease (CKD) (Chronic) Type 2 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with diabetic polyneuropathy (Chronic) Delayed wound healing (Chronic) Malnutrition (Chronic) Venous insufficiency (Chronic) Lymphedema (Chronic) Assessment: ulcer right forefoot - returned (digits 2 now, healed 4). right heel ulcer muscle involved and exposed fascia without infection noted today (previous grade 3); s/p surgical debridement and application of advance wound care products (amniofil and epicord). Lymphedema. Chronic lower extremity edema and venous insufficiency. Morbid obesity. Type 2 diabetes uncontrolled with peripheral neuropathy. CKD. Hypertension. Left below-knee amputation. Malnutrition. Delayed wound healing. Nonadherence to treatment plan Plan: His ulcer sites were evaluated as noted in the clinical panel. I discussed his care plan. All of the ulcer site of the left heel was debrided noted in the clinical. debridement was performed as noted in the clinical panel to all sites. The site was cleansed. Guera was applied today and he was advised to changes daily. A dressing was applied today with additional compression dressings; to continue dressing changes with home health. I recommend application of Guera to the wound sites. He needs continued help with cleaning his home and personal hygiene and a prescription recommending continued home health care as previously provided. Preauthorization for advanced wound care product, epicord, was initiated and this is still pending. An appeal letter was prepared previously. He has responded this well after his operating room application and a serial application of clinical setting will be implemented upon approval. This is medically necessary for limb salvage he is high risk for; limb loss. He has tried traditional wound care products, surgical debridement, offloading, diabetes management, antibiotic treatment, infectious disease consultation, serial debridements which have failed to complete wound closure. Therefore this is medically necessary and I recommend this treatment course. His diabetes has been managed medically with his primary care physician, he has had nutrition recommendations and guidance provided during his hospital admission, and serial routine educational sessions while he is at the wound care center and the importance of glycemic control. Patient to continue left 3M to 2L dressing which is applied today from the distal right foot to thigh as well as his left below knee amputation stump site to the thigh. It is noted the skin is very friable and he is high risk for continued ulcers. I am concerned of ongoing fluid accumulation; he was advised to get compliant with the wheel chair leg rests and to resume his compression pumps at home. To continue aggressive elevation; it is noted this has helped with his edema reduction this past week. He is now considered on complex care due to inability to fully adhere to the treatment program. CircAid thigh-high were ordered for the right lower extremity; he understands this is a graduated compression device. It is noted he had previous vascular surgery intervention. He had stents placed to improve arterial perfusion. He will follow-up with him as needed at this point. His noninvasive vascular arterial studies were reviewed and his COY is 1.05 on the right lower extremity. This will be monitored. To continue with nutritional supplementation, Glucerna. His diabetes is uncontrolled and he understands he is at risk for limb loss. To continue with proper glycemic control medical management to optimize healing. We revisited the availability to participate in the recommended hyperbaric oxygen therapy to optimize and speed up the healing process. He is personally amendable and has previously gone to [facility] for a previous wound with a good experience. This is medically necessary and he is high risk for continued limb and life loss due to his condition. He had a grade 3 right heel ulcer that has continued significant delays in healing. He is set up through family services for transportation and is not clear if they are able to take him here or to the [place] location on a daily basis to obtain these treatments. 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 Upon confirmation of available transportation, and insurance prior authorization and medical clearance exam (H & P and the appropriate diagnostic data) will next be pursued. I answered his questions about the process in this medical treatment. I answered all his questions. To return to clinic in one week or call sooner if questions or concerns.
--- NOTE | 2017-11-24 10:38 | PN.PCM_ITS ---
(1) Ulcer of right foot with fat layer exposed Status: Chronic Current Visit: Yes Code(s): L97.512 - Non-pressure chronic ulcer of other part of right foot with fat layer exposed (2) Ulcer of left lower extremity, limited to breakdown of skin Status: Chronic Current Visit: Yes Code(s): L97.921 - Non-pressure chronic ulcer of unspecified part of left lower leg limited to breakdown of skin (3) Complete below knee amputation of left lower extremity Status: Resolved Current Visit: Yes Code(s): S88.112A - Complete traumatic amputation at level between knee and ankle, left lower leg, initial encounter (4) PAOD (peripheral arterial occlusive disease) Status: Chronic Current Visit: Yes Code(s): I77.9 - Disorder of arteries and arterioles, unspecified (5) Chronic kidney disease (CKD) Status: Chronic Current Visit: Yes Qualifiers: Code(s): N18.9 - Chronic kidney disease, unspecified (6) Type 2 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with diabetic polyneuropathy Status: Chronic Current Visit: Yes Code(s): E11.42 - Type 2 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with diabetic polyneuropathy (7) Delayed wound healing Status: Chronic Current Visit: Yes Code(s): T14.8 - Other injury of unspecified body region (8) Malnutrition Status: Chronic Current Visit: Yes Code(s): E46 - Unspecified protein- calorie malnutrition (9) Venous insufficiency Status: Chronic Current Visit: Yes Code(s): I87.2 - Venous insufficiency ( chronic) (peripheral) (10) Lymphedema Status: Chronic Current Visit: Yes Code(s): I89.0 - Lymphedema, not elsewhere classified Type of Wound Date of Service: 11/24/17 Chief Complaint: right foot ulcer right second plantar toe and right fourth distal toe healed. right heel ulcer s/p surgical intervention - grade 3. Right leg ulcer healed. no acute signs of infection today History of Wound: 57-year-old white male returns to clinic for follow-up of bilateral leg ulcers and right foot ulcers. He denies fever, chill, nausea, vomiting, loss of appetite. He underwent surgical debridement application of advanced wound care products, Amniofil and epi fix September 14, 2017. He is increased with elevation at home and his leg size is significantly reduced. Presents in a wheelchair today. She is amenable to undergo hyperbaric oxygen therapy if he is medically safe and able to set up transportation. This was previously discussed when he had an open wound in the past transportation was limiting factor and he would like to revisit this again at this time. He denies odors or redness. He has demonstrated significant delays in healing. An appeal letter has been previously submitted for application of advanced wound care product, epi fix; this is still pending. Progress of Wound: improving right heel. Healed right forefoot. Stable left leg - Physical Exam Vital Signs Temp Pulse Resp BP 97.3 F L 91 18 120/60 11/24/17 09:54 11/24/17 09:54 11/24/17 09:54 11/24/17 09:54 General: Alert, Oriented x3, Cooperative Extremities: No cyanosis, Capillary Refill Less than 3 Seconds, No Calf Tenderness - Negative Badillo right, Diminished Peripheral Pulses, Edema - Bilateral lower extremities Skin: Ulcer/ Wound - No purulence, erythema, streaking, no odor, no infection bilateral lower extremities. There is some hemorrhagic exposed left limb tissue without subcutaneous or deeper tissue noted. The right forefoot has full epithelialization with continued maceration; no exposed subcutaneous tissue or deep tissues noted to the forefoot. The right heel previous grade 3 ulcer has increased granulation tissue and continued interspersed fibrous tissue. The peripheral skin is atrophic and hairless bilateral Wound Measurements and Assessment WC - Nurse 1 - General Ulcer Measurement Start: 11/17/17 09:42 Freq: Status: Active Protocol: Activity Type Activity Date Activity User E-Sign Co-Sign Detail Recorded Client Recorded Date Recorded By Document 11/24/17 09:54 [id number] 11/24/17 10:12 RB 11/24/17 09:54 Wound Center Nurse 1 [Ulcer Assessment] #13 R Med Heel -Combined with other wound No -Current Size (cm) - Length 4.3 -Current Size (cm) - Width 5.2 -Current Size (cm) - Depth 0.2 -Total Square Cm 22.36 -Tunneling No -Undermining/Tunneling No -Circular Undermining No -Classification - Thickness Full Thickness without Exposed Support Structure -Exudate Amt Medium (34-66%) -Exudate Type Serosanguineous -Wound Margin Distinct, Outline Attached -Granulation Amt Medium (34-66%) -Granulation Quality [place] -Slough/Fibrin Yes -Necrosis Amt Small (1-33%) -Necrotic Tissue Type Adherent Slough -Structure Exposed N/A -Texture (Martha-wound Skin Appearance) Callus -Moisture (Martha-wound Skin Appearance Assessed ) Maceration -Color (Martha-wound Skin Appearance) Assessed -Temperature (Martha-wound Skin No Abnormality Appearance) (Pt Warm) -Tenderness on Palpation (Martha-wound No Skin Appearance) -Ulcer Cleansing Wound Cleanser -Foul Odor after Cleansing No -Anesthetic Used 5% Lidocaine Gel #3 Right Foot-Toes w/Metatarsal Head circumfrential -Combined with other wound No -Current Size (cm) - Length 6 -Current Size (cm) - Width 5.5 -Current Size (cm) - Depth 0.2 -Total Square Cm 33.0 -Tunneling No -Undermining/Tunneling No -Circular Undermining No -Classification - Thickness Full Thickness without Exposed Support Structure -Exudate Amt Medium (34-66%) -Exudate Type Serosanguineous -Wound Margin Distinct, Outline Attached -Granulation Amt Medium (34-66%) -Granulation Quality [place] -Slough/Fibrin Yes -Necrosis Amt Medium (34-66%) -Necrotic Tissue Type Adherent Slough -Structure Exposed N/A -Texture (Martha-wound Skin Appearance) Localized Edema -Moisture (Martha-wound Skin Appearance Maceration ) -Color (Martha-wound Skin Appearance) Assessed -Temperature (Martha-wound Skin No Abnormality Appearance) (Pt Warm) -Tenderness on Palpation (Martha-wound No Skin Appearance) -Ulcer Cleansing Wound Cleanser -Foul Odor after Cleansing No -Anesthetic Used 4% Lidocaine Solution [Edema Assessment] -Lower Limb Edema Present Yes -Right Calf (cm) 37.1 -Right Ankle (cm) 29 WC - Nurse 2 - General Ulcer CM Notes Start: 11/17/17 09:42 Freq: Status: Active Protocol: Activity Type Activity Date Activity User E-Sign Co-Sign Detail Recorded Client Recorded Date Recorded By Document 11/24/17 10:22 ANUP [id number] 11/24/17 10:25 ANUP 11/24/17 10:22 Wound Center Nurse 2 [Procedure/Treatment] #13 R Med Heel -Time 10:22 -Correct Patient Yes -Correct Side, Site, Position Yes -Correct Procedure Yes -Procedure Performed Yes -Type of Procedure Debridement -Clinical Debridement Subcutaneous -Post Debridement Size (cm) - Length 4.4 -Post Debridement Size (cm) - Width 5.2 -Post Debridement Size (cm) - Depth 0.2 -Total Square Cm 22.88 -Wound/Ulcer Outcome Not Healed -Ulcer Cleansing Rinsed/ Irrigated with Saline -Foul Odor after Cleansing No -Bioengineered Tissue No -Bleeding Controlled with Pressure -Treatment Response Procedure Tolerated Well #3 Right Foot-Toes w/Metatarsal Head circumfrential -Correct Patient No -Correct Side, Site, Position No -Correct Procedure No -Procedure Performed No -Post Debridement Size (cm) - Length 0 -Post Debridement Size (cm) - Width 0 -Post Debridement Size (cm) - Depth 0 -Total Square Cm 0 -Wound/Ulcer Outcome Healed- Epithelialized [See Physician Procedure note for Specifics] Pain Scale: 0-10 Numeric [Pain] -Is Patient Pain Free? Yes Musculoskeletal: No Tenderness to Palpation of Joints or Extremities, Muscle Wasting, - - Left below-knee amputation. Bilateral lower extremity lymphedema continues Neurological: - - Lack of epicritic sensation light touch bilateral lower extremities Psych/Mental Status: Normal Affect, Appropriate Debridement Note Post-Debridement Measurements/Treatment WC - Nurse 2 - General Ulcer CM Notes Start: 11/17/17 09:42 Freq: Status: Active Protocol: Activity Type Activity Date Activity User E-Sign Co-Sign Detail Recorded Client Recorded Date Recorded By Document 11/17/17 10:36 [id number] 11/17/17 10:39 Document 11/24/17 10:22 [id number] 11/24/17 10:25 11/17/17 11/24/17 10:36 10:22 Wound Center Nurse 2 18-right plantar foot -Correct Patient No -Correct Side, Site, Position No -Correct Procedure No -Procedure Performed No -Post Debridement Size (cm) - Length 0 -Post Debridement Size (cm) - Width 0 -Post Debridement Size (cm) - Depth 0 -Total Square Cm 0 -Wound/Ulcer Outcome Healed- Epithelialized #13 R Med Heel -Time 10:36 10:22 -Correct Patient Yes Yes -Correct Side, Site, Position Yes Yes -Correct Procedure Yes Yes -Procedure Performed Yes Yes -Type of Procedure Debridement Debridement -Clinical Debridement Subcutaneous Subcutaneous -Post Debridement Size (cm) - Length 4.3 4.4 -Post Debridement Size (cm) - Width 5.5 5.2 -Post Debridement Size (cm) - Depth 0.1 0.2 -Total Square Cm 23.65 22.88 -Wound/Ulcer Outcome Not Healed Not Healed -Ulcer Cleansing Rinsed/ Rinsed/ Irrigated with Irrigated with Saline Saline -Foul Odor after Cleansing No No -Bioengineered Tissue No No -Bleeding Controlled with Pressure Pressure -Treatment Response Procedure Procedure Tolerated Well Tolerated Well #9 RIGHt onrman -Correct Patient No -Correct Side, Site, Position No -Correct Procedure No -Procedure Performed No -Post Debridement Size (cm) - Length 0 -Post Debridement Size (cm) - Width 0 -Post Debridement Size (cm) - Depth 0 -Total Square Cm 0 -Wound/Ulcer Outcome Healed- Epithelialized #3 Right Foot-Toes w/Metatarsal Head circumfrential -Time 10:38 -Correct Patient Yes No -Correct Side, Site, Position Yes No -Correct Procedure Yes No -Procedure Performed Yes No -Type of Procedure Debridement -Clinical Debridement Subcutaneous -Post Debridement Size (cm) - Length 2.4 0 -Post Debridement Size (cm) - Width 1.7 0 -Post Debridement Size (cm) - Depth 0.1 0 -Total Square Cm 4.08 0 -Wound/Ulcer Outcome Not Healed Healed- Epithelialized -Ulcer Cleansing Rinsed/ Irrigated with Saline -Foul Odor after Cleansing No -Bioengineered Tissue No -Bleeding Controlled with Pressure -Treatment Response Procedure Tolerated Well Pain Scale: 0-10 Numeric Is Patient Pain Free? Yes Yes Wound debrided: heel Laterality: Right Wound Grade/Stage: grade 3 Type of Debridement: Excisional debridement Anesthesia Used: 5% Lidocaine Gel Depth: in the subcutaneous layer Percentage of wound debrided: 100 Instrument Used: #15 blade Tissue Removed: fibrous, devitalized subcutaneous, biofilm, slough Severity: Fat Layer Exposed Amount of bleeding with debridement: Mild Bleeding Controlled with: Pressure Patient tolerated procedure well Assessment/Plan Active Problems Ulcer of left lower extremity, limited to breakdown of skin (Chronic) Complete below knee amputation of left lower extremity (Chronic) Ulcer of right foot with fat layer exposed (Chronic) PAOD (peripheral arterial occlusive disease) (Chronic) Chronic kidney disease (CKD) (Chronic) Type 2 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with diabetic polyneuropathy (Chronic) Delayed wound healing (Chronic) Malnutrition (Chronic) Venous insufficiency (Chronic) Lymphedema (Chronic) Assessment: ulcer right forefoot - returned (digits 2 now, healed 4). right heel ulcer muscle involved and exposed fascia without infection noted today ( previous grade 3); s/p surgical debridement and application of advance wound care products (amniofil and epicord). Lymphedema. Chronic lower extremity edema and venous insufficiency. Morbid obesity. Type 2 diabetes uncontrolled with peripheral neuropathy. CKD. Hypertension. Left below-knee amputation. Malnutrition. Delayed wound healing. Nonadherence to treatment plan Plan: His ulcer sites were evaluated as noted in the clinical panel. I discussed his care plan. All of the ulcer site of the left heel was debrided noted in the clinical. debridement was performed as noted in the clinical panel to all sites. The site was cleansed. Guera was applied today and he was advised to changes daily. A dressing was applied today with additional compression dressings; to continue dressing changes with home health. I recommend application of Guera to the wound sites. He needs continued help with cleaning his home and personal hygiene and a prescription recommending continued home health care as previously provided. Preauthorization for advanced wound care product, epicord, was initiated and this is still pending. An appeal letter was prepared previously. He has responded this well after his operating room application and a serial application of clinical setting will be implemented upon approval. This is medically necessary for limb salvage he is high risk for; limb loss. He has tried traditional wound care products, surgical debridement, offloading, diabetes management, antibiotic treatment, infectious disease consultation, serial debridements which have failed to complete wound closure. Therefore this is medically necessary and I recommend this treatment course. His diabetes has been managed medically with his primary care physician, he has had nutrition recommendations and guidance provided during his hospital admission, and serial routine educational sessions while he is at the wound care center and the importance of glycemic control. Patient to continue left 3M to 2L dressing which is applied today from the distal right foot to thigh as well as his left below knee amputation stump site to the thigh. It is noted the skin is very friable and he is high risk for continued ulcers. I am concerned of ongoing fluid accumulation; he was advised to get compliant with the wheel chair leg rests and to resume his compression pumps at home. To continue aggressive elevation; it is noted this has helped with his edema reduction this past week. He is now considered on complex care due to inability to fully adhere to the treatment program. CircAid thigh-high were ordered for the right lower extremity; he understands this is a graduated compression device. It is noted he had previous vascular surgery intervention. He had stents placed to improve arterial perfusion. He will follow-up with him as needed at this point. His noninvasive vascular arterial studies were reviewed and his COY is 1.05 on the right lower extremity. This will be monitored. To continue with nutritional supplementation, Glucerna. His diabetes is uncontrolled and he understands he is at risk for limb loss. To continue with proper glycemic control medical management to optimize healing. We revisited the availability to participate in the recommended hyperbaric oxygen therapy to optimize and speed up the healing process. He is personally amendable and has previously gone to [facility] for a previous wound with a good experience. This is medically necessary and he is high risk for continued limb and life loss due to his condition. He had a grade 3 right heel ulcer that has continued significant delays in healing. He is set up through family services for transportation and is not clear if they are able to take him here or to the [place] location on a daily basis to obtain these treatments. His distribution engineering technologist's contact information was obtained and we will help him look into this. Upon confirmation of available transportation, and insurance prior authorization and medical clearance exam (H & P and the appropriate diagnostic data) will next be pursued. I answered his questions about the process in this medical treatment. I answered all his questions. To return to clinic in one week or call sooner if questions or concerns.
[2017-12-01 09:55] VITALS: BP 101/47; PULSE 93; RESP 18; TEMP 36.2
--- NOTE | 2017-12-01 10:41 | PN.PCM_ITS ---
(1) Ulcer of right foot with fat layer exposed Status: Chronic Current Visit: Yes Code(s): L97.512 - Non-pressure chronic ulcer of other part of right foot with fat layer exposed (2) Ulcer of left lower extremity, limited to breakdown of skin Status: Chronic Current Visit: Yes Code(s): L97.921 - Non-pressure chronic ulcer of unspecified part of left lower leg limited to breakdown of skin (3) Complete below knee amputation of left lower extremity Status: Chronic Current Visit: Yes Code(s): S88.112A - Complete traumatic amputation at level between knee and ankle, left lower leg, initial encounter (4) PAOD (peripheral arterial occlusive disease) Status: Chronic Current Visit: Yes Code(s): I77.9 - Disorder of arteries and arterioles, unspecified (5) Chronic kidney disease (CKD) Status: Chronic Current Visit: Yes Qualifiers: Code(s): N18.9 - Chronic kidney disease, unspecified (6) Type 2 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with diabetic polyneuropathy Status: Chronic Current Visit: Yes Code(s): E11.42 - Type 2 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with diabetic polyneuropathy (7) Delayed wound healing Status: Chronic Current Visit: Yes Code(s): T14.8 - Other injury of unspecified body region (8) Malnutrition Status: Chronic Current Visit: Yes Code(s): E46 - Unspecified protein- calorie malnutrition (9) Venous insufficiency Status: Chronic Current Visit: Yes Code(s): I87.2 - Venous insufficiency ( chronic) (peripheral) (10) Lymphedema Status: Chronic Current Visit: Yes Code(s): I89.0 - Lymphedema, not elsewhere classified Type of Wound Date of Service: 12/01/17 Chief Complaint: right foot ulcer right second plantar toe and right fourth distal toe healed. right heel ulcer s/p surgical intervention - grade 3. Right leg ulcer healed. no acute signs of infection today History of Wound: 57-year-old white male returns to clinic for follow-up of bilateral leg ulcers and right foot ulcers. He denies fever, chill, nausea, vomiting, loss of appetite. He underwent surgical debridement application of advanced wound care products, Amniofil and epi fix September 14, 2017. He is increased with elevation at home and his leg size is significantly reduced. Presents in a wheelchair today. he is amenable to undergo hyperbaric oxygen therapy if he is medically safe and able to set up transportation. This was previously discussed when he had an open wound in the past transportation was limiting factor and he would like to revisit this again at this time. He denies odors or redness. He has demonstrated significant delays in healing. An appeal letter has been previously submitted for application of advanced wound care product, epi fix; this is still pending. Progress of Wound: improving right heel. Return right foot. Stable left stump - Physical Exam Vital Signs Temp Pulse Resp BP 97.1 F L 93 18 101/47 L 12/01/17 09:55 12/01/17 09:55 12/01/17 09:55 12/01/17 09:55 General: Alert, Oriented x3, Cooperative HEENT: Atraumatic Extremities: No cyanosis, Capillary Refill Less than 3 Seconds, No Calf Tenderness, Diminished Peripheral Pulses, Edema, - - Below-knee amputation left Skin: Ulcer/ Wound - No purulence, erythema, streaking, odor, no infection bilateral lower extremities. His skin is atrophic and hairless. Lymphedema bilateral lower extremity is noted. There is no deep tissue exposed or necrosis noted today. Wound Measurements and Assessment WC - Nurse 1 - General Ulcer Measurement Start: 11/17/17 09:42 Freq: Status: Active Protocol: Activity Type Activity Date Activity User E-Sign Co-Sign Detail Recorded Client Recorded Date Recorded By Document 12/01/17 09:55 [facility] [id number] 12/01/17 10:02 [facility] 12/01/17 09:55 Wound Center Nurse 1 [Ulcer Assessment] #13 R Med Heel -Combined with other wound No -Current Size (cm) - Length 4.7 -Current Size (cm) - Width 4.4 -Current Size (cm) - Depth 0.2 -Total Square Cm 20.68 -Photo Taken No -Tunneling No -Undermining/Tunneling No -Circular Undermining No -Classification - Pressure Ulcer Stage 3 -Exudate Amt Medium (34-66%) -Exudate Type Serosanguineous -Wound Margin Thickened -Granulation Amt Medium (34-66%) -Granulation Quality Wishram -Slough/Fibrin Yes -Necrosis Amt Medium (34-66%) -Necrotic Tissue Type Adherent Slough -Structure Exposed N/A -Texture (Martha-wound Skin Appearance) Callus -Moisture (Martha-wound Skin Appearance Maceration ) Dry/Scaly -Color (Martha-wound Skin Appearance) Assessed -Temperature (Martha-wound Skin No Abnormality Appearance) (Pt Warm) -Tenderness on Palpation (Martha-wound No Skin Appearance) -Ulcer Cleansing Wound Cleanser -Foul Odor after Cleansing No -Anesthetic Used 4% Lidocaine Solution [Edema Assessment] -Lower Limb Edema Present Yes -Right Calf (cm) 38 -Right Ankle (cm) 28 -Left Calf (cm) 42.7 - Nurse 2 - General Ulcer CM Notes Start: 11/17/17 09:42 Freq: Status: Active Protocol: Activity Type Activity Date Activity User E-Sign Co-Sign Detail Recorded Client Recorded Date Recorded By Document 12/01/17 10:36 [id number] 12/01/17 10:39 12/01/17 10:36 Wound Center Nurse 2 [Procedure/Treatment] #13 R Med Heel -Time 10:37 -Correct Patient Yes -Correct Side, Site, Position Yes -Correct Procedure Yes -Procedure Performed Yes -Type of Procedure Debridement -Clinical Debridement Subcutaneous -Post Debridement Size (cm) - Length 4.8 -Post Debridement Size (cm) - Width 4.5 -Post Debridement Size (cm) - Depth 0.2 -Total Square Cm 21.60 -Wound/Ulcer Outcome Not Healed -Ulcer Cleansing Rinsed/ Irrigated with Saline -Foul Odor after Cleansing No -Bioengineered Tissue No -Topical Lidocaine (%) 4 -Bleeding Controlled with Pressure -Treatment Response Procedure Tolerated Well [See Physician Procedure note for Specifics] Pain Scale: 0-10 Numeric [Pain] -Is Patient Pain Free? Yes Musculoskeletal: No Tenderness to Palpation of Joints or Extremities, Muscle Wasting, - - Compartment soft bilateral lower extremities Neurological: - - Lack of epicritic sensation light touch bilateral lower extremities Psych/Mental Status: Normal Affect, Appropriate Debridement Note Post-Debridement Measurements/Treatment - Nurse 2 - General Ulcer CM Notes Start: 11/17/17 09:42 Freq: Status: Active Protocol: Activity Type Activity Date Activity User E-Sign Co-Sign Detail Recorded Client Recorded Date Recorded By Document 11/17/17 10:36 [id number] 11/17/17 10:39 Document 11/24/17 10:22 [id number] 11/24/17 10:25 Document 12/01/17 10:36 [id number] 12/01/17 10:39 11/17/17 11/24/17 12/01/17 10:36 10:22 10:36 Wound Center Nurse 2 18-right plantar foot -Correct Patient No -Correct Side, Site, Position No -Correct Procedure No -Procedure Performed No -Post Debridement Size (cm) - Length 0 -Post Debridement Size (cm) - Width 0 -Post Debridement Size (cm) - Depth 0 -Total Square Cm 0 -Wound/Ulcer Outcome Healed- Epithelialized #13 R Med Heel -Time 10:36 10:22 10:37 -Correct Patient Yes Yes Yes -Correct Side, Site, Position Yes Yes Yes -Correct Procedure Yes Yes Yes -Procedure Performed Yes Yes Yes -Type of Procedure Debridement Debridement Debridement -Clinical Debridement Subcutaneous Subcutaneous Subcutaneous -Post Debridement Size (cm) - Length 4.3 4.4 4.8 -Post Debridement Size (cm) - Width 5.5 5.2 4.5 -Post Debridement Size (cm) - Depth 0.1 0.2 0.2 -Total Square Cm 23.65 22.88 21.60 -Wound/Ulcer Outcome Not Healed Not Healed Not Healed -Ulcer Cleansing Rinsed/ Rinsed/ Rinsed/ Irrigated with Irrigated with Irrigated with Saline Saline Saline -Foul Odor after Cleansing No No No -Bioengineered Tissue No No No -Topical Lidocaine (%) 4 -Bleeding Controlled with Pressure Pressure Pressure -Treatment Response Procedure Procedure Procedure Tolerated Well Tolerated Well Tolerated Well #9 RIGHt norman -Correct Patient No -Correct Side, Site, Position No -Correct Procedure No -Procedure Performed No -Post Debridement Size (cm) - Length 0 -Post Debridement Size (cm) - Width 0 -Post Debridement Size (cm) - Depth 0 -Total Square Cm 0 -Wound/Ulcer Outcome Healed- Epithelialized #3 Right Foot-Toes w/Metatarsal Head circumfrential -Time 10:38 -Correct Patient Yes No -Correct Side, Site, Position Yes No -Correct Procedure Yes No -Procedure Performed Yes No -Type of Procedure Debridement -Clinical Debridement Subcutaneous -Post Debridement Size (cm) - Length 2.4 0 -Post Debridement Size (cm) - Width 1.7 0 -Post Debridement Size (cm) - Depth 0.1 0 -Total Square Cm 4.08 0 -Wound/Ulcer Outcome Not Healed Healed- Epithelialized -Ulcer Cleansing Rinsed/ Irrigated with Saline -Foul Odor after Cleansing No -Bioengineered Tissue No -Bleeding Controlled with Pressure -Treatment Response Procedure Tolerated Well Pain Scale: 0-10 Numeric Is Patient Pain Free? Yes Yes Yes Wound debrided: heel Laterality: Right Wound Grade/Stage: grade 3 Type of Debridement: Excisional debridement Anesthesia Used: 5% Lidocaine Gel Depth: in the subcutaneous layer Percentage of wound debrided: 100 Instrument Used: #15 blade Tissue Removed: fibrous, devitalized subcutaneous, biofilm, slough Severity: Fat Layer Exposed Amount of bleeding with debridement: Mild Bleeding Controlled with: Pressure Patient tolerated procedure well - Additional Wound Wound debrided: dorsal and plantar 2nd toe returned Laterality: Right Wound Grade/Stage: grade 1 Type of Debridement: Excisional debridement Anesthesia Used: 5% Lidocaine Gel Depth: in the subcutaneous layer Percentage of wound debrided: 100 Instrument Used: #15 blade Tissue Removed: fibrous, devitalized subcutaneous, biofilm, slough Severity: Fat Layer Exposed Amount of bleeding with debridement: Mild Bleeding Controlled with: Pressure Patient tolerated procedure: Patient tolerated procedure well Assessment/Plan Active Problems Ulcer of left lower extremity, limited to breakdown of skin (Chronic) Complete below knee amputation of left lower extremity (Chronic) Ulcer of right foot with fat layer exposed (Chronic) PAOD (peripheral arterial occlusive disease) (Chronic) Chronic kidney disease (CKD) (Chronic) Type 2 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with diabetic polyneuropathy (Chronic) Delayed wound healing (Chronic) Malnutrition (Chronic) Venous insufficiency (Chronic) Lymphedema (Chronic) Assessment: ulcer right forefoot - returned (digits 2). right heel ulcer muscle involved and exposed fascia without infection noted today (previous grade 3); s/p surgical debridement and application of advance wound care products (amniofil and epicord). Lymphedema. Ulcer left stump site with skin layer exposed, no infection. Chronic lower extremity edema and venous insufficiency. Morbid obesity. Type 2 diabetes uncontrolled with peripheral neuropathy. CKD. Hypertension. Left below-knee amputation. Malnutrition. Delayed wound healing. Nonadherence to treatment plan Plan: His ulcer sites were evaluated as noted in the clinical panel. I discussed his care plan. All of the ulcer site of the right heel and toe was debrided as noted in the clinical panel. The site was cleansed. Guera was applied today and he was advised to changes daily. A dressing was applied today with additional compression dressings; to continue dressing changes with home health. I recommend application of Guera to the wound sites. He needs continued help with cleaning his home and personal hygiene and a prescription recommending continued home health care as previously provided. Preauthorization for advanced wound care product, epicord, was initiated and this is still pending. An appeal letter was prepared previously. He has responded this well after his operating room application and a serial application of clinical setting will be implemented upon approval. This is medically necessary for limb salvage he is high risk for; limb loss. He has tried traditional wound care products, surgical debridement, offloading, diabetes management, antibiotic treatment, infectious disease consultation, serial debridements which have failed to complete wound closure. Therefore this is medically necessary and I recommend this treatment course. His diabetes has been managed medically with his primary care physician, he has had nutrition recommendations and guidance provided during his hospital admission, and serial routine educational sessions while he is at the wound care center and the importance of glycemic control. Patient to continue left 3M to 2L dressing which is applied today from the distal right foot to thigh as well as his left below knee amputation stump site to the thigh. It is noted the skin is very friable and he is high risk for continued ulcers. I am concerned of ongoing fluid accumulation; he was advised to get compliant with the wheel chair leg rests and to resume his compression pumps at home. To continue aggressive elevation; it is noted this has helped with his edema reduction this past week. He is now considered on complex care due to inability to fully adhere to the treatment program. CircAid thigh-high were ordered for the right lower extremity; he understands this is a graduated compression device. It is noted he had previous vascular surgery intervention. He had stents placed to improve arterial perfusion. He will follow-up with him as needed at this point. His noninvasive vascular arterial studies were reviewed and his COY is 1.05 on the right lower extremity. This will be monitored. To continue with nutritional supplementation, Glucerna. His diabetes is uncontrolled and he understands he is at risk for limb loss. To continue with proper glycemic control medical management to optimize healing. We revisited the availability to participate in the recommended hyperbaric oxygen therapy to optimize and speed up the healing process. He is personally amendable and has previously gone to [facility] for a previous wound with a good experience. This is medically necessary and he is high risk for continued limb and life loss due to his condition. He had a grade 3 right heel ulcer that has continued significant delays in healing. He is set up through family services for transportation and is not clear if they are able to take him here or to the [place] location on a daily basis to obtain these treatments. His chain sales consultant's contact information was obtained and we will help him look into this. Upon confirmation of available transportation, and insurance prior authorization and medical clearance exam (H & P and the appropriate diagnostic data) will next be pursued. I answered his questions about the process in this medical treatment. I answered all his questions. To return to clinic in one week or call sooner if questions or concerns.
== END 2017-12-04 23:59 ==
LOC: WC 10:00
PROVIDERS: Family Provider Family Medicine Geriatric Medicine; PCP Family Medicine Geriatric Medicine; Visit Provider Podiatrist
DX: E11.621 Type 2 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with foot ulcer (principal); E11.22 Type 2 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with diabetic chronic kidney disease; N18.9 Chronic kidney disease, unspecified; E11.42 Type 2 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with diabetic polyneuropathy; I87.2 Venous insufficiency (chronic) (peripheral); I89.0 Lymphedema, not elsewhere classified; L97.412 Non-pressure chronic ulcer of right heel and midfoot with fat layer exposed; L97.512 Non-pressure chronic ulcer of other part of right foot with fat layer exposed; I12.9 Hypertensive chronic kidney disease with stage 1 through stage 4 chronic kidney disease, or unspecified chronic kidney disease; E11.65 Type 2 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with hyperglycemia
CPT/HCPCS: 11042; 11045; 29581

== ENCOUNTER → 2017-12-02 13:33 | Outpatient (CLI) | payer MEDICARE, MEDICAID, SELFPAY ==
[2017-12-02 17:44] LABS: Hemoglobin 8.8 g/dl (13.0-16.5); Mean Corp Hgb Conc 29.3 g/gl (32-36); Mean Corpuscular Volume 88.5 fL (80-94); Mean Platelet Vol. 10.9 fl (6.2-12.0); Platelet Count 216 K/mm3 (150-450); RBC Distribution Width CV 17.6 % (11.6-14.6); RBC Distribution Width SD 55.5 fl (35.1-43.9); Red Blood Count 3.39 M/mm3 (4.6-6.2); White Blood Count 10.5 K/mm3 (4.4-11.0)
[2017-12-02 17:51] LABS: Scan Indicated on CBC? Y/N NO
[2017-12-02 17:53] LABS: Albumin, Serum 2.8 g/dL (3.2-5.0); BUN 57 mg/dL (7-18); BUN/Creat Ratio 30.8 RATIO (10-20); Calcium,Total 8.7 mg/dL (8.5-10.1); Chloride 106 mmol/L (98-107); Creatinine, Serum 1.85 mg/dL (0.70-1.30); EST Glomerular Filtration Rate 40 mL/min (>60); Est Glom Filt Rate - Afr Amer 48 mL/min (>60); Glucose 146 mg/dL (74-106); Phosphorus 4.2 mg/dL (2.5-4.9); Potassium 5.2 mmol/L (3.5-5.1); Sodium Level 140 mmol/L (136-145)
[2017-12-03 08:41] LABS: PTHIN 46.6 pg/mL (18.4-80.1)
== END ==
PROVIDERS: Family Provider Family Medicine Geriatric Medicine; PCP Family Medicine Geriatric Medicine; Visit Provider Internal Medicine Nephrology
DX: N18.3 Chronic kidney disease, stage 3 (moderate) (principal)
CPT/HCPCS: 36415; 80069; 83970; 85027; G0108

== ENCOUNTER 2017-12-02 13:52 | Outpatient (RCR) | payer MEDICARE, MEDICAID, SELFPAY | END 2017-12-04 23:59 | LOC: DC 13:52 | PROVIDERS: Family Provider Family Medicine Geriatric Medicine; PCP Family Medicine Geriatric Medicine; Visit Provider Podiatrist | DX: E11.42 Type 2 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with diabetic polyneuropathy (principal); E46 Unspecified protein-calorie malnutrition; T14.90XA Injury, unspecified, initial encounter; Z71.3 Dietary counseling and surveillance | CPT/HCPCS: G0108 ==

== ENCOUNTER 2017-12-13 09:25 | Emergency (ER) | payer MEDICARE, MEDICAID, SELFPAY ==
[2017-12-13 09:26] VITALS: BP 145/80; PULSE 100; RESP 20; TEMP 36.8; O2SAT 96; BMI 47.2
--- NOTE | 2017-12-13 09:48 | ED.VISSUMM ---
- ER Visit Summary Date of Service: 12/13/17 Chief Complaint: Right foot wound History of Present Illness: The patient is a 57 M who presents with worsening of his right foot wound. Patient states his home health nurse that cares for his chronic wound on his right foot came to his house today and noticed he had maggots in his wound. Patient denies any pain. Patient states his right foot is numb due to neuropathy. Patient denies any fevers or chills. Patient denies any redness of his wound. Physical Examination: Vital signs are stable. Patient is afebrile. Patient is in no acute distress. Oral mucosa is pink and moist. Neck is supple. Heart was regular rate and rhythm. Lungs are clear and equal bilaterally. There is good respiratory effort noted. Abdomen is soft and nontender. Cranial nerves II through XII are intact. Strength is 5/5 bilaterally. There is an open wound over the right heel and webspace between the first and second digits. There are maggots in the wound between the first and second digit. There is no erythema or drainage. Test Results: CBC shows slight leukocytosis of 11.8. Basic metabolic profile showed a creatinine of 2.18 which is chronic for him. Potassium was slightly elevated at 5.4. X-rays of the right foot did not show any evidence of osteomyelitis. Emergency Department Course and Treatment: Patient felt better on reevaluation. There is no erythematous streaking from the wounds. The wounds were cleaned and dressed. Patient states he has an appointment in the wound care center in 2 days. Patient was given a prescription for clindamycin. Patient was instructed to follow-up with his wound care appointment as scheduled. Patient understood and was agreeable with the plan. All questions were answered. Disposition: Discharge home Impression: Chronic wound right foot This note was generated with [employer] dictation software. It may contain incorrect words, spelling, and punctuation that were not noted in review of the chart prior to signing ED Disposition - Plan for ED Patient: Disposition: Home or Assisted Living Chief Complaint: Wound Diagnosis: Open wound of right foot Instructions: Discharge Instructions for Diabetic Foot Ulcers Prescriptions: Clindamycin HCl 300 mg PO [id number] #40 cap Referrals: Arnie Bullock Chi, MD [Primary Care Provider] -
--- NOTE | 2017-12-13 10:04 | NURSING ---
NO LW OR POA
[2017-12-13 10:17] LABS: Absolute Lymphocyte Count 1.08 X10^3/ul (0.83-4.51); Absolute Neutrophil Count 9.4 X10^3/uL (2.0-7.7); Basophil# 0.02 X10^3/uL; Basophil% 0.2 % (0-1); Eosinophil# 0.23 X10^3/uL; Hematocrit 31.4 % (40-54); Hemoglobin 9.4 g/dl (13.0-16.5); Lymphocyte # 1.08 X10^3/ul (4.0); Lymphocyte % 9.2 % (19-41); Mean Corp Hgb Conc 29.9 g/gl (32-36); Mean Corpuscular Hgb 25.4 pg (27.0-32.0); Mean Corpuscular Volume 84.9 fL (80-94); Mean Platelet Vol. 10.5 fl (6.2-12.0); Monocyte# 0.82 X10^3/uL; Neutrophil # 9.42 X10^3/uL (2.7-7.7); Neutrophil % 79.9 % (47-70); Platelet Count 231 K/mm3 (150-450); RBC Distribution Width CV 17.5 % (11.6-14.6); RBC Distribution Width SD 52.8 fl (35.1-43.9); White Blood Count 11.8 K/mm3 (4.4-11.0)
[2017-12-13 10:23] LABS: POSITIVE COUNT NO; POSITIVE DIFFERENTIAL NO; POSITIVE MORPHOLOGY NO
[2017-12-13 10:30] LABS: Anion Gap 9 (5-15); BUN 62 mg/dL (7-18); BUN/Creat Ratio 28.4 RATIO (10-20); Calcium,Total 8.8 mg/dL (8.5-10.1); Chloride 103 mmol/L (98-107); Creatinine, Serum 2.18 mg/dL (0.70-1.30); EST Glomerular Filtration Rate 33 mL/min (>60); Est Glom Filt Rate - Afr Amer 40 mL/min (>60); Glucose 103 mg/dL (74-106); Potassium 5.4 mmol/L (3.5-5.1); Sodium Level 140 mmol/L (136-145)
--- NOTE | 2017-12-13 10:37 | RAD_ITS ---
STUDY: X-RAY - RIGHT FOOT CLINICAL: Male, 57 years old. Ulceration overlying the calcaneus. The patient has a history of diabetes. TECHNIQUE: 4 view(s) of the foot. COMPARISON: Comparison is made with prior study dated September 01, 2017. FINDINGS: There is a plantar calcaneal spur. Soft tissue swelling overlying the posterior aspect of the calcaneus. Degenerative changes of the tarsal joints. 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 Normal tibial and fibular sesamoid bones. Normal interphalangeal joint of the great toe. Normal phalanges of the great toe. Normal second through fifth metatarsophalangeal joints. Normal interphalangeal joints and phalanges of the lesser toes. There is no demonstrated soft tissue swelling. RAD/Foot min 3 Views IMPRESSION: Diffuse soft tissue swelling which has progressed as compared to prior study. The remainder of the examination is unchanged. Electronically Signed: Saeed Jeffrey MD at 11:12 EDT Tel [phone], Service support ,
[2017-12-13 11:26] VITALS: BP 127/72; PULSE 96; O2SAT 97
--- NOTE | 2017-12-13 11:27 | ED.RN ---
WOUND CLEANED WITH COPIOUS AMOUNTS OF SALINE AND SOAP COMBINED. MODERATE AMOUNTS OF LIVE MAGGOTS REMOVED FROM BETWEEN TOES. PT TOLERATED WELL. TELFA PLACED OVER WOUNDS AND 4X4 PLACED BETWEEN TOES. FOOT WRAPPED IN KERLIX
--- NOTE | 2017-12-13 12:22 | NURSING ---
CALLING FOR TRANSPORT TO HOME
--- NOTE | 2017-12-13 12:33 | NURSING ---
ETA IS 1 HR TO 1.5 HR WITH GARCÍA WHEELCHAIR
[2017-12-13 14:41] VITALS: BP 140/87; PULSE 88; RESP 20; O2SAT 96
--- NOTE | 2017-12-13 14:42 | ED.RN ---
LEFT STUMP AND RIGHT LEG WRAPPED WITH KERLIX UP TO MID THIGH. PT THEN REQUESTS AREA TO BE WRAPPED IN [facility]UDE BANDAGES. DR AWARE AND AGREEABLE.PT REQUESTS PRESCRIPTION BE CALLED IN TO [facility] [place]
== END 2017-12-13 14:44 | disposition home or self-care (01) ==
PROVIDERS: Emergency Provider Emergency Medicine; Family Provider Family Medicine Geriatric Medicine; PCP Family Medicine Geriatric Medicine
DX: S91.301A Unspecified open wound, right foot, initial encounter (principal); G62.9 Polyneuropathy, unspecified; L08.9 Local infection of the skin and subcutaneous tissue, unspecified; E11.9 Type 2 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without complications; I12.9 Hypertensive chronic kidney disease with stage 1 through stage 4 chronic kidney disease, or unspecified chronic kidney disease; N18.3 Chronic kidney disease, stage 3 (moderate); Z87.891 Personal history of nicotine dependence; X58.XXXA Exposure to other specified factors, initial encounter; Y93.89 Activity, other specified; Y92.89 Other specified places as the place of occurrence of the external cause; Y99.9 Unspecified external cause status
CPT/HCPCS: 36415; 73630; 80048; 85025; 87040; 87070; 87077; 87186; 87205; 99285

== ENCOUNTER → 2017-12-16 13:38 | Outpatient (CLI) | payer MEDICARE, MEDICAID, SELFPAY ==
[2017-12-16 14:43] LABS: Amphetamine Urine VISTA NEGATIVE (<1000 ng/mL); Barbiturate Urine VISTA NEGATIVE (< 200 ng/mL); Benzodiazepine Urine VISTA NEGATIVE (< 200 ng/mL); Cocaine Urine VISTA NEGATIVE (< 300 ng/mL); Ecstacy Urine VISTA NEGATIVE (< 500 ng/mL); Methadone Urine VISTA NEGATIVE (< 300 ng/mL); PCP Urine VISTA NEGATIVE (< 25 ng/mL); THC Urine VISTA NEGATIVE (< 50 ng/mL); Vista UDS pH Range 5
== END ==
PROVIDERS: Family Provider Family Medicine Geriatric Medicine; PCP Family Medicine Geriatric Medicine; Visit Provider Anesthesiology Pain Medicine
DX: F11.20 Opioid dependence, uncomplicated (principal)
CPT/HCPCS: 80307

== ENCOUNTER 2017-12-29 10:00 | Outpatient (RCR) | payer MEDICARE, MEDICAID, SELFPAY ==
[2017-12-05 00:55] VITALS: BP 101/47; PULSE 93; RESP 18; TEMP 36.2
[2017-12-09 10:42] VITALS: BP 112/67; PULSE 94; RESP 18; TEMP 35.8
--- NOTE | 2017-12-09 17:29 | PCM.CONHBO ---
(1) Calcaneus pressure ulceration right foot Status: Acute (2) Nonhealing skin ulcer Status: Acute Code(s): L98.499 - Non-pressure chronic ulcer of skin of other sites with unspecified severity (3) Chronic ulcer of right foot with fat layer exposed Status: Chronic Code(s): L97.512 - Non-pressure chronic ulcer of other part of right foot with fat layer exposed (4) Diabetes mellitus type 2, uncontrolled, with complications Status: Chronic Code(s): E11.8 - Type 2 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with unspecified complications; E11.65 - Type 2 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with hyperglycemia History of Present Illness Date of Service: 12/09/17 Presenting Chief Complaint: Hyperbaric oxygen consult for slow healing/nonhealing right foot ulcers. The patient is a 57 year old M who [facility] to evaluate the possibility of initiating hyperbaric oxygen therapy for treatment of slow healing/nonhealing right foot ulcer. He has been following with Dr. Lux for the management of his bilateral lower extremity ulcers and has had significant delayed healing of his right lower extremity/foot ulcer. Per documentation he is at high risk for limb loss. He has had surgical debridement, skin substitutes as well as traditional wound care products without significant improvement. He has a history of 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type 2 which is also not very well controlled. He is status post BKA of his left lower extremity. He has had hyperbaric oxygen treatments in the past with the last session about 2 years ago. His sessions were pretty much well-tolerated however he had to get bilateral ear tubes. He has had no problems with his hearing or vision since his last session. He also denies any history of heart disease. EKG and chest x-ray reviewed, no significant abnormalities. He denies chest pain, shortness of breath or palpitations. 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) Ulcer of right foot with necrosis of muscle (Chronic) Ulcer of right foot with fat layer exposed (Chronic) 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) Delayed wound healing (Chronic) Malnutrition (Chronic) Venous insufficiency (Chronic) Lymphedema (Chronic) Edema of both legs (Chronic) GERD (gastroesophageal reflux disease) (Chronic) Hypertension (Chronic) Hyperlipemia (Chronic) Morbid obesity with BMI of 45.0-49.9, adult (Chronic) Hyperlipidemia associated with type 2 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(Chronic) 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 Allergies/Adverse Reactions: Allergies bee venom protein (honey bee) Allergy (Verified 12/13/17 09:30) Swelling metronidazole [From Flagyl] Allergy (Verified 12/13/17 09:30) Itching Home Medications: Ambulatory Orders Medication Instructions Recorded Atorvastatin Calcium [Lipitor] 10 mg PO QHS 01/08/17 Brimonidine Tartrate 0.2% 1 drop EACH EYE BID 01/08/17 [Brimonidine 0.2% 5Ml Bottle] Ergocalciferol [Vitamin D] 50,000 unit PO FR 01/08/17 Gabapentin [Neurontin] 1,600 mg PO QHS 01/08/17 Gabapentin [Neurontin] 600 mg PO DAILY 01/08/17 Insulin U-500 [Humulin R U-500 105 units SC DINNER 01/08/17 ([facility])] Insulin U-500 [Humulin R U-500 105 units SC LUNCH 01/08/17 ([facility])] Insulin U-500 [Humulin R U-500 160 units SC BREAKFAST 01/08/17 ([facility])] Latanoprost 0.005% [Xalatan 1 drop EACH EYE QHS 01/08/17 Opthalmic] Losartan Potassium [Cozaar] 50 mg PO DAILY 01/08/17 Nebivolol HCl [Bystolic (Beta 10 mg PO DAILY 01/08/17 [facility])] Omeprazole [Prilosec] 40 mg PO DAILY 01/08/17 Acetaminophen [Tylenol Tablet] 650 mg PO Q6H PRN PRN tablet 09/07/17 Clopidogrel Bisulfate [Plavix] 75 mg PO DAILY 09/07/17 Menthol/Lanolin/Calamine/Znox 1 applic TOPICAL 0600,2200 tube 09/21/17 [Calmoseptine Ointment] Nutritional Supplement [Madhu - 1 packet PO BIDCM #60 packet 09/21/17 [facility]] Nystatin Powder [Mycostatin Powder] 1 applic TOPICAL 0600,2200 bottle 09/21/17 Ferrous Sulfate [Iron] 325 mg PO BID 10/14/17 Clindamycin HCl 300 mg PO [id number] #40 cap 12/13/17 Maternal Family History: Diabetes Paternal Family History: Hypertension Sibling Family History: Diabetes Smoking Status: Former smoker Review of Systems Constitutional: Denies: Anorexia, Malaise, Weakness Eyes: Denies: Blurred vision, Pain, Redness HEENT: Denies: Difficulty Swallowing Cardiovascular: Denies: Chest Pain, Chest Tightness Respiratory: Denies: Hemoptysis Gastrointestinal: Denies: Abdominal Pain, Hematemesis, Vomiting Skin: Denies: Jaundice Psychiatric: Denies: Anxiety - Physical Exam Vital Signs Temp Pulse Resp BP 96.4 F L 94 18 112/67 12/09/17 10:42 12/09/17 10:42 12/09/17 10:42 12/09/17 10:42 General: Alert, Oriented x3, Cooperative, No apparent distress HEENT: Atraumatic, Normocephalic, - - Right eardrum perforation. Left atrium normal. No drainage/discharge or tubes visualized. Oral: Moist Mucosa Neck: Supple Lungs: Normal air movement Cardiovascular: Regular rate, Regular Rhythm, Normal S1, Normal S2 Abdomen: Non Tender, Obese Extremities: No cyanosis Musculoskeletal: No Muscle Wasting Neurological: Cranial nerves II-XII grossly intact Psych/Mental Status: Normal Affect Assessment/Plan DEL BARRIOS is an appropriate candidate for hyperbaric oxygen therapy. Hyperbaric Oxygen Therapy would be an essential adjunct in the resolution and treatment of this patient's presenting problem. This patient has sufficient physiologic and psychological stamina to undergo the rigors of hyperbaric oxygen therapy. As such, I recommend the following: Hyperbaric Oxygen Treatments at 2.0 SIMIN in 100% Oxygen for 90 minutes per treatment, for 40 treatments. I have discussed the possible benefits of hyperbaric oxygen therapy with this patient. I have also presented and described the risks, including: air gas embolism, pneumothorax, central nervous system and pulmonary oxygen toxicity, flash pulmonary edema, hypoglycemia, reversible visual refractive changes, ear and sinus osmin-trauma, and confinement anxiety. The patient has verbalized understanding of these risks, and is still wanting to undergo hyperbaric oxygen therapy. The patient understands the significant time and transportation commitment involved in daily treatments of up to two hours duration and has stated that they are willing to commit to this therapy. Advised to follow-up with his ENT for ear tubes placement prior to starting HBO.
--- NOTE | 2017-12-09 17:39 | HBO.CON.PC_ITS ---
(1) Calcaneus pressure ulceration right foot Status: Acute (2) Nonhealing skin ulcer Status: Acute Code(s): L98.499 - Non-pressure chronic ulcer of skin of other sites with unspecified severity (3) Chronic ulcer of right foot with fat layer exposed Status: Chronic Code(s): L97.512 - Non-pressure chronic ulcer of other part of right foot with fat layer exposed (4) Diabetes mellitus type 2, uncontrolled, with complications Status: Chronic Code(s): E11.8 - Type 2 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with unspecified complications; E11.65 - Type 2 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with hyperglycemia History of Present Illness Date of Service: 12/09/17 Presenting Chief Complaint: Hyperbaric oxygen consult for slow healing/ nonhealing right foot ulcers. The patient is a 57 year old M who [facility] the possibility of initiating hyperbaric oxygen therapy for treatment of slow healing/nonhealing right foot ulcer. He has been following with Dr. Lux for the management of his bilateral lower extremity ulcers and has had significant delayed healing of his right lower extremity/foot ulcer. Per documentation he is at high risk for limb loss. He has had surgical debridement , skin substitutes as well as traditional wound care products without significant improvement. He has a history of 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type 2 which is also not very well controlled. He is status post BKA of his left lower extremity. He has had hyperbaric oxygen treatments in the past with the last session about 2 years ago. His sessions were pretty much well-tolerated however he had to get bilateral ear tubes. He has had no problems with his hearing or vision since his last session. He also denies any history of heart disease. EKG and chest x-ray reviewed, no significant abnormalities. He denies chest pain, shortness of breath or palpitations. 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) Ulcer of right foot with necrosis of muscle (Chronic) Ulcer of right foot with fat layer exposed (Chronic) 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) Delayed wound healing (Chronic) Malnutrition (Chronic) Venous insufficiency (Chronic) Lymphedema (Chronic) Edema of both legs (Chronic) GERD (gastroesophageal reflux disease) (Chronic) Hypertension (Chronic) Hyperlipemia (Chronic) Morbid obesity with BMI of 45.0-49.9, adult (Chronic) Hyperlipidemia associated with type 2 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(Chronic) 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 Allergies/Adverse Reactions: Allergies bee venom protein (honey bee) Allergy (Verified 12/13/17 09:30) Swelling metronidazole [From Flagyl] Allergy (Verified 12/13/17 09:30) Itching Home Medications: Ambulatory Orders Medication Instructions Recorded Atorvastatin Calcium [Lipitor] 10 mg PO QHS 01/08/17 Brimonidine Tartrate 0.2% 1 drop EACH EYE BID 01/08/17 [Brimonidine 0.2% 5Ml Bottle] Ergocalciferol [Vitamin D] 50,000 unit PO FR 01/08/17 Gabapentin [Neurontin] 1,600 mg PO QHS 01/08/17 Gabapentin [Neurontin] 600 mg PO DAILY 01/08/17 Insulin U-500 [Humulin R U-500 105 units SC DINNER 01/08/17 ([facility])] Insulin U-500 [Humulin R U-500 105 units SC LUNCH 01/08/17 ([facility])] Insulin U-500 [Humulin R U-500 160 units SC BREAKFAST 01/08/17 ([facility])] Latanoprost 0.005% [Xalatan 1 drop EACH EYE QHS 01/08/17 Opthalmic] Losartan Potassium [Cozaar] 50 mg PO DAILY 01/08/17 Nebivolol HCl [Bystolic (Beta 10 mg PO DAILY 01/08/17 [facility])] Omeprazole [Prilosec] 40 mg PO DAILY 01/08/17 Acetaminophen [Tylenol Tablet] 650 mg PO Q6H PRN PRN tablet 09/07/17 Clopidogrel Bisulfate [Plavix] 75 mg PO DAILY 09/07/17 Menthol/Lanolin/Calamine/Znox 1 applic TOPICAL 0600,2200 tube 09/21/17 [Calmoseptine Ointment] Nutritional Supplement [Madhu - 1 packet PO BIDCM #60 packet 09/21/17 ORANGE FLAVOR] Nystatin Powder [Mycostatin Powder] 1 applic TOPICAL 0600,2200 bottle 09/21/17 Ferrous Sulfate [Iron] 325 mg PO BID 10/14/17 Clindamycin HCl 300 mg PO [id number] #40 cap 12/13/17 Maternal Family History: Diabetes Paternal Family History: Hypertension Sibling Family History: Diabetes Smoking Status: Former smoker Review of Systems Constitutional: Denies: Anorexia, Malaise, Weakness Eyes: Denies: Blurred vision, Pain, Redness HEENT: Denies: Difficulty Swallowing Cardiovascular: Denies: Chest Pain, Chest Tightness Respiratory: Denies: Hemoptysis Gastrointestinal: Denies: Abdominal Pain, Hematemesis, Vomiting Skin: Denies: Jaundice Psychiatric: Denies: Anxiety - Physical Exam Vital Signs Temp Pulse Resp BP 96.4 F L 94 18 112/67 12/09/17 10:42 12/09/17 10:42 12/09/17 10:42 12/09/17 10:42 General: Alert, Oriented x3, Cooperative, No apparent distress HEENT: Atraumatic, Normocephalic, - - Right eardrum perforation. Left atrium normal. No drainage/discharge or tubes visualized. Oral: Moist Mucosa Neck: Supple Lungs: Normal air movement Cardiovascular: Regular rate, Regular Rhythm, Normal S1, Normal S2 Abdomen: Non Tender, Obese Extremities: No cyanosis Musculoskeletal: No Muscle Wasting Neurological: Cranial nerves II-XII grossly intact Psych/Mental Status: Normal Affect Assessment/Plan DEL BARRIOS is an appropriate candidate for hyperbaric oxygen therapy. Hyperbaric Oxygen Therapy would be an essential adjunct in the resolution and treatment of this patient's presenting problem. This patient has sufficient physiologic and psychological stamina to undergo the rigors of hyperbaric oxygen therapy. As such, I recommend the following: Hyperbaric Oxygen Treatments at 2.0 SIMIN in 100% Oxygen for 90 minutes per treatment, for 40 treatments. I have discussed the possible benefits of hyperbaric oxygen therapy with this patient. I have also presented and described the risks, including: air gas embolism, pneumothorax, central nervous system and pulmonary oxygen toxicity, flash pulmonary edema, hypoglycemia, reversible visual refractive changes, ear and sinus osmin-trauma, and confinement anxiety. The patient has verbalized understanding of these risks, and is still wanting to undergo hyperbaric oxygen therapy. The patient understands the significant time and transportation commitment involved in daily treatments of up to two hours duration and has stated that they are willing to commit to this therapy. Advised to follow-up with his ENT for ear tubes placement prior to starting HBO.
[2017-12-15 10:02] VITALS: BP 93/48; PULSE 95; RESP 16; TEMP 35.8
[2017-12-23 09:04] VITALS: BP 120/57; PULSE 94; RESP 18; TEMP 36.2
--- NOTE | 2017-12-23 10:01 | PCM.WC.PN ---
(1) Calcaneus pressure ulceration right foot Status: Acute Current Visit: Yes (2) Nonhealing skin ulcer Status: Acute Current Visit: Yes Code(s): L98.499 - Non-pressure chronic ulcer of skin of other sites with unspecified severity (3) Chronic ulcer of right foot with fat layer exposed Status: Chronic Current Visit: Yes Code(s): L97.512 - Non-pressure chronic ulcer of other part of right foot with fat layer exposed (4) Diabetes mellitus type 2, uncontrolled, with complications Status: Chronic Current Visit: Yes Code(s): E11.8 - Type 2 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with unspecified complications; E11.65 - Type 2 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with hyperglycemia Type of Wound Date of Service: 12/23/17 Chief Complaint: Hyperbaric oxygen consult for slow healing/nonhealing right foot ulcers. History of Wound: 57-year-old white male returns to clinic for follow-up of bilateral leg ulcers and right foot ulcers. He denies fever, chill, nausea, vomiting, loss of appetite. He underwent surgical debridement application of advanced wound care products, Amniofil and epi fix September 14, 2017. He is increased with elevation at home and his leg size is significantly reduced. Presents in a wheelchair today. he is amenable to undergo hyperbaric oxygen therapy if he is medically safe and able to set up transportation. This was previously discussed when he had an open wound in the past transportation was limiting factor and he would like to revisit this again at this time. He denies odors or redness. He has demonstrated significant delays in healing. An appeal letter has been previously submitted for application of advanced wound care product, epi fix; this is still pending. Progress of Wound: Courtesy Visit for Dr. Lux. Stable wound. No complaints at this time. - Physical Exam Vital Signs Temp Pulse Resp BP 97.1 F L 94 18 120/57 L 12/23/17 09:04 12/23/17 09:04 12/23/17 09:04 12/23/17 09:04 General: Alert, Oriented x3, Cooperative HEENT: Atraumatic Oral: Moist Mucosa Neck: Supple Lungs: Normal air movement Abdomen: Non Tender, Obese Extremities: No cyanosis, Edema Skin: Ulcer/ Wound Wound Measurements and Assessment WC - Nurse 1 - General Ulcer Measurement Start: 12/09/17 10:42 Freq: Status: Active Protocol: Activity Type Activity Date Activity User E-Sign Co-Sign Detail Recorded Client Recorded Date Recorded By Document 12/23/17 09:04 DL [id number] 12/23/17 09:19 DL 12/23/17 09:04 Wound Center Nurse 1 [Ulcer Assessment] #13 R Med Heel -Current Size (cm) - Length 3.8 -Current Size (cm) - Width 5 -Current Size (cm) - Depth 0.2 -Total Square Cm 19.0 -Photo Taken No -Exudate Amt Medium (34-66%) -Exudate Type Serosanguineous -Wound Margin Thickened -Granulation Amt Small (1-33%) -Granulation Quality [place] -Necrosis Amt Large (67-100%) -Necrotic Tissue Type Adherent Slough -Structure Exposed N/A -Texture (Martha-wound Skin Appearance) Localized Edema Scarring -Moisture (Martha-wound Skin Appearance Dry/Scaly ) -Color (Martha-wound Skin Appearance) Hemosiderin Staining Rubor -Temperature (Martha-wound Skin No Abnormality Appearance) (Pt Warm) -Tenderness on Palpation (Martha-wound No Skin Appearance) -Ulcer Cleansing Wound Cleanser -Foul Odor after Cleansing No -Anesthetic Used 4% Lidocaine Solution #21 Right Foot-Toes w/Metatarsal Head circumfrential -Current Size (cm) - Length 10 -Current Size (cm) - Width 8.5 -Current Size (cm) - Depth 0.1 -Total Square Cm 85.0 -Photo Taken No -Exudate Amt Medium (34-66%) -Exudate Type Serosanguineous -Wound Margin Indistinct, Non -Visible -Granulation Amt Medium (34-66%) -Granulation Quality [place] -Necrosis Amt Medium (34-66%) -Necrotic Tissue Type Adherent Slough -Structure Exposed N/A -Texture (Martha-wound Skin Appearance) Localized Edema Scarring -Moisture (Martha-wound Skin Appearance Maceration ) -Color (Martha-wound Skin Appearance) Hemosiderin Staining Rubor -Temperature (Martha-wound Skin No Abnormality Appearance) (Pt Warm) -Tenderness on Palpation (Martha-wound No Skin Appearance) -Ulcer Cleansing Wound Cleanser -Foul Odor after Cleansing No -Anesthetic Used 4% Lidocaine Solution [Edema Assessment] -Right Calf (cm) 42.3 -Right Ankle (cm) 31 -Left Calf (cm) 51 Musculoskeletal: No Muscle Wasting Neurological: Cranial nerves II-XII grossly intact Psych/Mental Status: Normal Affect Debridement Note Post-Debridement Measurements/Treatment WC - Nurse 2 - General Ulcer CM Notes Start: 12/09/17 10:42 Freq: Status: Active Protocol: Activity Type Activity Date Activity User E-Sign Co-Sign Detail Recorded Client Recorded Date Recorded By Document 12/15/17 10:33 ANUP [id number] 12/15/17 10:34 ANUP 12/15/17 10:33 Wound Center Nurse 2 #13 R Med Heel -Time 10:33 -Correct Patient Yes -Correct Side, Site, Position Yes -Correct Procedure Yes -Procedure Performed Yes -Type of Procedure Debridement -Clinical Debridement Subcutaneous -Post Debridement Size (cm) - Length 4.6 -Post Debridement Size (cm) - Width 5.2 -Post Debridement Size (cm) - Depth 0.2 -Total Square Cm 23.92 -Wound/Ulcer Outcome Not Healed -Ulcer Cleansing Rinsed/ Irrigated with Saline -Foul Odor after Cleansing No -Bioengineered Tissue No -Bleeding Controlled with Pressure -Treatment Response Procedure Tolerated Well #21 Right Foot-Toes w/Metatarsal Head circumfrential -Time 10:33 -Correct Patient Yes -Correct Side, Site, Position Yes -Correct Procedure Yes -Procedure Performed Yes -Type of Procedure Debridement -Clinical Debridement Subcutaneous -Post Debridement Size (cm) - Length 11 -Post Debridement Size (cm) - Width 7.6 -Post Debridement Size (cm) - Depth 0.2 -Total Square Cm 83.6 -Wound/Ulcer Outcome Not Healed -Ulcer Cleansing Rinsed/ Irrigated with Saline -Foul Odor after Cleansing No -Bioengineered Tissue No -Bleeding Controlled with Pressure -Treatment Response Procedure Tolerated Well Pain Scale: 0-10 Numeric Is Patient Pain Free? Yes Wound debrided: Right Heel Wound Grade/Stage: Grade III Type of Debridement: Excisional debridement Anesthesia Used: 4% Lidocaine Solution Depth: Down to and including healthy tissue, in the subcutaneous layer Percentage of wound debrided: 100 Instrument Used: 5mm curette Tissue Removed: Slough and devitalized tissue Severity: Fat Layer Exposed Amount of bleeding with debridement: Mild Bleeding Controlled with: Pressure Patient tolerated procedure well - Additional Wound Wound debrided: Right Foot Wound Grade/Stage: Grade I Type of Debridement: Excisional debridement Anesthesia Used: 4% Lidocaine Solution Depth: Down to and including healthy tissue, in the subcutaneous layer Percentage of wound debrided: 100 Instrument Used: 5mm curette Tissue Removed: Slough and devitalized tissue Severity: Fat Layer Exposed Amount of bleeding with debridement: Mild Bleeding Controlled with: Pressure Patient tolerated procedure: Patient tolerated procedure well Assessment/Plan Active Problems Calcaneus pressure ulceration right foot (Acute) Diabetes mellitus type 2, uncontrolled, with complications (Chronic) Chronic ulcer of right foot with fat layer exposed (Chronic) Nonhealing skin ulcer (Acute) Assessment: ulcer right forefoot - returned (digits 2). right heel ulcer muscle involved and exposed fascia without infection noted today (previous grade 3); s/p surgical debridement and application of advance wound care products (amniofil and epicord). Lymphedema. Ulcer left stump site with skin layer exposed, no infection. Chronic lower extremity edema and venous insufficiency. Morbid obesity. Type 2 diabetes uncontrolled with peripheral neuropathy. CKD. Hypertension. Left below-knee amputation. Malnutrition. Delayed wound healing. Nonadherence to treatment plan Plan: No new concerns at this time. Debridement done as documented above, procedure was well tolerated. Epifix was applied to the right heel. leave in palce for 1 week. Continue Guera with adaptic overtop to the right foot ulcer. Change daily. Continue compression and elevate lower extreity when sitting and in bed. Optimal blood sugar contol. Continue protein suppplements and increased protein in diet. Follow up in [address] Lux. Advised to call with any questions or concerns.
[2017-12-29 09:51] VITALS: BP 115/58; PULSE 99; RESP 20; TEMP 36.6
--- NOTE | 2017-12-29 11:29 | PN.PCM_ITS ---
(1) Ulcer of right lower extremity with fat layer exposed Status: Chronic Current Visit: Yes Code(s): L97.912 - Non-pressure chronic ulcer of unspecified part of right lower leg with fat layer exposed (2) Ulcer of left lower extremity, limited to breakdown of skin Status: Chronic Current Visit: Yes Code(s): L97.921 - Non-pressure chronic ulcer of unspecified part of left lower leg limited to breakdown of skin (3) Complete below knee amputation of left lower extremity Status: Chronic Current Visit: Yes Qualifiers: Encounter type: sequela Qualified Code(s): S88.112S - Complete traumatic amputation at level between knee and ankle, left lower leg, sequela Code(s): S88.112A - Complete traumatic amputation at level between knee and ankle, left lower leg, initial encounter (4) Type 2 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with diabetic polyneuropathy Status: Chronic Current Visit: Yes Code(s): E11.42 - Type 2 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with diabetic polyneuropathy (5) Delayed wound healing Status: Chronic Current Visit: Yes Code(s): T14.8 - Other injury of unspecified body region (6) Malnutrition Status: Chronic Current Visit: Yes Code(s): E46 - Unspecified protein- calorie malnutrition (7) Venous insufficiency Status: Chronic Current Visit: Yes Code(s): I87.2 - Venous insufficiency ( chronic) (peripheral) (8) Lymphedema Status: Chronic Current Visit: Yes Code(s): I89.0 - Lymphedema, not elsewhere classified Type of Wound Date of Service: 12/29/17 Chief Complaint: Right heel and toe ulcers complicated with continued lower extremity swelling History of Wound: 57-year-old white male returns to clinic for follow-up of bilateral leg ulcers and right foot ulcers. He denies fever, chill, nausea, vomiting, loss of appetite. He underwent surgical debridement application of advanced wound care products, Amniofil and epi fix September 14, 2017. He is increased with elevation at home and his leg size is significantly reduced. Presents in a wheelchair today. he is amenable to undergo hyperbaric oxygen therapy if he is medically safe and able to set up transportation. He has been cleared from a medical standpoint. This was previously discussed when he had an open wound in the past transportation was limiting factor and he would like to revisit this again at this time. He denies odors or redness. He has demonstrated significant delays in healing. An appeal letter has been previously submitted for application of advanced wound care product, epi fix; this was approved. Dr. Valdes applied his first application last week. Progress of Wound: Improving - Physical Exam Vital Signs Temp Pulse Resp BP 97.8 F 99 20 H 115/58 L 12/29/17 09:51 12/29/17 09:51 12/29/17 09:51 12/29/17 09:51 General: Alert, Oriented x3, Cooperative Extremities: No cyanosis, Capillary Refill Less than 3 Seconds, No Calf Tenderness - Negative Harry and Badillo sign right lower extremity, Diminished Peripheral Pulses, Edema - Bilateral lower extremities consistent with lymphedema Skin: Ulcer/ Wound - No purulence, no erythema, streaking, no odor, no infection bilateral lower extremities. There is sub-hemorrhagic tissue only exposed with mild serous weeping to the left below-knee amputation stump site. The right foot sites no longer has any exposed deep tissue necrosis or eschar. The peripheral skin is hairless, atrophic, and with hyperpigmentation bilateral lower extremities Wound Measurements and Assessment WC - Nurse 1 - General Ulcer Measurement Start: 12/09/17 10:42 Freq: Status: Active Protocol: Activity Type Activity Date Activity User E-Sign Co-Sign Detail Recorded Client Recorded Date Recorded By Document 12/29/17 09:51 [id number] 12/29/17 10:05 DL 12/29/17 09:51 Wound Center Nurse 1 [Ulcer Assessment] #13 R Med Heel -Current Size (cm) - Length 4 -Current Size (cm) - Width 5.2 -Current Size (cm) - Depth 0.1 -Total Square Cm 20.8 -Photo Taken No -Exudate Amt Medium (34-66%) -Exudate Type Serosanguineous -Wound Margin Thickened -Granulation Amt Small (1-33%) -Granulation Quality [place] -Necrosis Amt Large (67-100%) -Necrotic Tissue Type Adherent Slough -Structure Exposed N/A -Texture (Martha-wound Skin Appearance) Scarring -Moisture (Martha-wound Skin Appearance Maceration ) -Color (Martha-wound Skin Appearance) Hemosiderin Staining Mottled -Temperature (Martha-wound Skin No Abnormality Appearance) (Pt Warm) -Tenderness on Palpation (Martha-wound No Skin Appearance) -Ulcer Cleansing Wound Cleanser -Foul Odor after Cleansing No -Anesthetic Used 4% Lidocaine Solution #21 Right Foot-Toes w/Metatarsal Head circumfrential -Current Size (cm) - Length 9 -Current Size (cm) - Width 8 -Current Size (cm) - Depth 0.1 -Total Square Cm 72 -Photo Taken No -Exudate Amt Large (67-100%) -Exudate Type Serosanguineous -Wound Margin Thickened -Granulation Amt Small (1-33%) -Granulation Quality [place] -Necrosis Amt Large (67-100%) -Necrotic Tissue Type Adherent Slough -Structure Exposed N/A -Texture (Martha-wound Skin Appearance) Localized Edema -Moisture (Martha-wound Skin Appearance Maceration ) -Color (Martha-wound Skin Appearance) Hemosiderin Staining Mottled -Temperature (Martha-wound Skin No Abnormality Appearance) (Pt Warm) -Ulcer Cleansing Wound Cleanser -Foul Odor after Cleansing No -Anesthetic Used 4% Lidocaine Solution [Edema Assessment] -Right Calf (cm) 40.5 -Right Ankle (cm) 30.3 -Left Calf (cm) 50.5 WC - Nurse 2 - General Ulcer CM Notes Start: 12/09/17 10:42 Freq: Status: Active Protocol: Activity Type Activity Date Activity User E-Sign Co-Sign Detail Recorded Client Recorded Date Recorded By Document 12/29/17 11:03 [id number] 12/29/17 11:07 12/29/17 11:03 Wound Center Nurse 2 [Procedure/Treatment] #13 R Med Heel -Time 11:04 -Correct Patient Yes -Correct Side, Site, Position Yes -Correct Procedure Yes -Procedure Performed Yes -Type of Procedure Debridement -Clinical Debridement Subcutaneous -Post Debridement Size (cm) - Length 4.1 -Post Debridement Size (cm) - Width 5.2 -Post Debridement Size (cm) - Depth 0.1 -Total Square Cm 21.32 -Wound/Ulcer Outcome Not Healed -Ulcer Cleansing Rinsed/ Irrigated with Saline -Foul Odor after Cleansing No -Bioengineered Tissue Yes -Type of bioengineered Tissue EPIFIX -Expiration Date 10/05/22 -Product Lot Number [id number] -Percent Used 100 -Saline Lot Number [id number] -Topical Lidocaine (%) 4 -Bleeding Controlled with Pressure -Treatment Response Procedure Tolerated Well #21 Right Foot-Toes w/Metatarsal Head circumfrential -Time 11:05 -Correct Patient Yes -Correct Side, Site, Position Yes -Correct Procedure Yes -Procedure Performed Yes -Type of Procedure Debridement -Clinical Debridement Subcutaneous -Post Debridement Size (cm) - Length 9.1 -Post Debridement Size (cm) - Width 8.1 -Post Debridement Size (cm) - Depth 0.1 -Total Square Cm 73.71 -Wound/Ulcer Outcome Not Healed -Ulcer Cleansing Rinsed/ Irrigated with Saline -Foul Odor after Cleansing No -Bioengineered Tissue No -Topical Lidocaine (%) 4 -Bleeding Controlled with Pressure -Treatment Response Procedure Tolerated Well [See Physician Procedure note for Specifics] Pain Scale: 0-10 Numeric [Pain] -Is Patient Pain Free? Yes Musculoskeletal: No Tenderness to Palpation of Joints or Extremities, Muscle Wasting, - - The left below-knee amputation Neurological: - - Lack of epicritic sensation light touch bilateral lower extremities Psych/Mental Status: Normal Affect, Appropriate Debridement Note Post-Debridement Measurements/Treatment WC - Nurse 2 - General Ulcer CM Notes Start: 12/09/17 10:42 Freq: Status: Active Protocol: Activity Type Activity Date Activity User E-Sign Co-Sign Detail Recorded Client Recorded Date Recorded By Document 12/15/17 10:33 [id number] 12/15/17 10:34 Document 12/23/17 09:46 JS [id number] 12/23/17 10:13 Document 12/29/17 11:03 [id number] 12/29/17 11:07 12/15/17 12/23/17 12/29/17 10:33 09:46 11:03 Wound Center Nurse 2 #13 R Med Heel -Time 10:33 09:54 11:04 -Correct Patient Yes Yes Yes -Correct Side, Site, Position Yes Yes Yes -Correct Procedure Yes Yes Yes -Procedure Performed Yes Yes Yes -Type of Procedure Debridement Debridement Debridement -Clinical Debridement Subcutaneous Subcutaneous Subcutaneous -Post Debridement Size (cm) - Length 4.6 5.4 4.1 -Post Debridement Size (cm) - Width 5.2 4.5 5.2 -Post Debridement Size (cm) - Depth 0.2 0.3 0.1 -Total Square Cm 23.92 24.30 21.32 -Wound/Ulcer Outcome Not Healed Not Healed Not Healed -Ulcer Cleansing Rinsed/ Rinsed/ Rinsed/ Irrigated with Irrigated with Irrigated with Saline Saline Saline -Foul Odor after Cleansing No No No -Bioengineered Tissue No Yes Yes -Type of bioengineered Tissue EPIFIX EPIFIX -Expiration Date 09/05/22 10/05/22 -Product Lot Number [id number] -Percent Used 100 100 -Saline Lot Number [id number] -Topical Lidocaine (%) 4 4 -Lidocaine (ml) 15 -Bleeding Controlled with Pressure NA Pressure -Treatment Response Procedure Procedure Not Procedure Tolerated Well Tolerated Well Tolerated Well #21 Right Foot-Toes w/Metatarsal Head circumfrential -Time 10:33 09:56 11:05 -Correct Patient Yes Yes Yes -Correct Side, Site, Position Yes Yes Yes -Correct Procedure Yes Yes Yes -Procedure Performed Yes Yes Yes -Type of Procedure Debridement Debridement Debridement -Clinical Debridement Subcutaneous Subcutaneous Subcutaneous -Post Debridement Size (cm) - Length 11 10.1 9.1 -Post Debridement Size (cm) - Width 7.6 8.6 8.1 -Post Debridement Size (cm) - Depth 0.2 0.1 0.1 -Total Square Cm 83.6 86.86 73.71 -Wound/Ulcer Outcome Not Healed Not Healed Not Healed -Ulcer Cleansing Rinsed/ Rinsed/ Rinsed/ Irrigated with Irrigated with Irrigated with Saline Saline Saline -Foul Odor after Cleansing No No No -Bioengineered Tissue No No No -Topical Lidocaine (%) 4 4 -Bleeding Controlled with Pressure NA Pressure -Treatment Response Procedure Procedure Procedure Tolerated Well Tolerated Well Tolerated Well Pain Scale: 0-10 Numeric Is Patient Pain Free? Yes Yes Yes Wound debrided: heel Laterality: Left Wound Grade/Stage: grade 3 Type of Debridement: Excisional debridement Anesthesia Used: 5% Lidocaine Gel Depth: in the subcutaneous layer Percentage of wound debrided: 100 Instrument Used: #15 blade Tissue Removed: fibrous, devitalized subcutaneous, biofilm, slough Severity: Fat Layer Exposed Amount of bleeding with debridement: Mild Bleeding Controlled with: Pressure Patient tolerated procedure well - Additional Wound Wound debrided: toes Laterality: Right Wound Grade/Stage: grade 1 Type of Debridement: Excisional debridement Anesthesia Used: 5% Lidocaine Gel Depth: in the subcutaneous layer Percentage of wound debrided: 20 Instrument Used: #15 blade Tissue Removed: fibrous, devitalized subcutaneous, biofilm, slough Severity: Fat Layer Exposed Amount of bleeding with debridement: Mild Bleeding Controlled with: Pressure Patient tolerated procedure: Patient tolerated procedure well Assessment/Plan Active Problems Ulcer of right lower extremity with fat layer exposed (Chronic) Ulcer of left lower extremity, limited to breakdown of skin (Chronic) Complete below knee amputation of left lower extremity (Chronic) Calcaneus pressure ulceration right foot (Acute) Diabetes mellitus type 2, uncontrolled, with complications (Chronic) Type 2 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with diabetic polyneuropathy (Chronic) Chronic ulcer of right foot with fat layer exposed (Chronic) Delayed wound healing (Chronic) Malnutrition (Chronic) Nonhealing skin ulcer (Acute) Venous insufficiency (Chronic) Lymphedema (Chronic) Assessment: ulcer right forefoot - returned (digits 2). right heel ulcer muscle involved and exposed fascia without infection noted today (previous grade 3); s/p surgical debridement and application of advance wound care products (amniofil and epicord). Left below-knee amputation sub-hemorrhagic tissue with continued weeping noted; no infection. Lymphedema. Ulcer left stump site with skin layer exposed, no infection. Chronic lower extremity edema and venous insufficiency. Morbid obesity. Type 2 diabetes uncontrolled with peripheral neuropathy. CKD. Hypertension. Left below-knee amputation. Malnutrition. Delayed wound healing. Nonadherence to treatment plan Plan: I reviewed and discussed his case debridement done as documented above in the clinical panel, procedure was well tolerated. Epifix was applied to the right heel after verbal consent was obtained. This was applied according to standard protocol. He tolerated this well. A secondary dressing was applied. leave in palce for 1 week. Continue Guera overtop to the right foot ulcer the toe site. To change daily. Continue compression and elevate lower extreity when sitting and in bed. Optimal blood sugar contol. Continue protein suppplements and increased protein in diet. Per chart review it appears he has been cleared from medical standpoint to start hyperbaric oxygen therapy and I recommend he move forward with this to optimize his healing. Follow up in 1 week with at the wound healing center or call sooner if he has any questions or concerns.
== END 2018-01-04 23:59 ==
LOC: WC 10:00
PROVIDERS: Family Provider Family Medicine Geriatric Medicine; PCP Family Medicine Geriatric Medicine; Visit Provider Podiatrist
DX: E11.621 Type 2 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with foot ulcer (principal); E11.65 Type 2 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with hyperglycemia; L97.512 Non-pressure chronic ulcer of other part of right foot with fat layer exposed; L97.412 Non-pressure chronic ulcer of right heel and midfoot with fat layer exposed; E11.22 Type 2 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with diabetic chronic kidney disease; E11.42 Type 2 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with diabetic polyneuropathy; N18.9 Chronic kidney disease, unspecified; I12.9 Hypertensive chronic kidney disease with stage 1 through stage 4 chronic kidney disease, or unspecified chronic kidney disease; R60.0 Localized edema; E66.01 Morbid (severe) obesity due to excess calories; Z71.3 Dietary counseling and surveillance; I87.2 Venous insufficiency (chronic) (peripheral); I89.0 Lymphedema, not elsewhere classified
CPT/HCPCS: 11042; 11045; 15275; 29581; 99212; Q4131; G0463

== ENCOUNTER 2018-01-20 08:18 | Outpatient (RCR) | payer MEDICARE, MEDICAID, SELFPAY ==
--- NOTE | 2017-12-15 11:05 | PCM.WC.PN ---
(1) Ulcer of left lower extremity, limited to breakdown of skin Status: Chronic Code(s): L97.921 - Non-pressure chronic ulcer of unspecified part of left lower leg limited to breakdown of skin (2) Ulcer of right lower extremity with fat layer exposed Status: Chronic Code(s): L97.912 - Non-pressure chronic ulcer of unspecified part of right lower leg with fat layer exposed (3) Maggot infestation Status: Resolved Code(s): B87.9 - Myiasis, unspecified (4) Complete below knee amputation of left lower extremity Status: Chronic Qualifiers: Encounter type: sequela Qualified Code(s): S88.112S - Complete traumatic amputation at level between knee and ankle, left lower leg, sequela Code(s): S88.112A - Complete traumatic amputation at level between knee and ankle, left lower leg, initial encounter (5) Type 2 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with diabetic polyneuropathy Status: Chronic Code(s): E11.42 - Type 2 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with diabetic polyneuropathy (6) Delayed wound healing Status: Chronic Code(s): T14.8 - Other injury of unspecified body region (7) Malnutrition Status: Chronic Code(s): E46 - Unspecified protein-calorie malnutrition (8) Lymphedema Status: Chronic Code(s): I89.0 - Lymphedema, not elsewhere classified (9) Edema of both legs Status: Chronic Code(s): R60.0 - Localized edema Type of Wound Date of Service: 12/15/17 Chief Complaint: right foot ulcer right second plantar toe and right fourth distal toe healed. right heel ulcer s/p surgical intervention - grade 3. no acute signs of infection today. resolved maggot infestation History of Wound: 57-year-old white male returns to clinic for follow-up right foot ulcers and left leg weeping. He had a maggot infestation earlier this week and went to the ER. He was started on an antibiotic and denies problems with use. He denies fever, chill, nausea, vomiting, loss of appetite. He underwent surgical debridement application of advanced wound care products, Amniofil and epi fix September 14, 2017. Presents in a wheelchair today. he is amenable to undergo hyperbaric oxygen therapy if he is medically safe and able to set up transportation. He has an ENT appointment scheduled this afternoon for screening safety. He denies odors or redness. An appeal letter has been previously submitted for application of advanced wound care product, epi fix; this was denied. Progress of Wound: stable. worse toes - Physical Exam General: Alert, Oriented x3, Cooperative Extremities: No cyanosis, Capillary Refill Less than 3 Seconds, No Calf Tenderness - Negative Harry and Badillo right, Diminished Peripheral Pulses, Edema - Increased bilateral lower extremities, - - Left below-knee amputation. Lymphedema worsened today bilateral lower extremities Skin: Ulcer/ Wound - No purulence, no erythema, streaking, no odor, no infection. There is increased maceration to the toes right. The skin is very atrophic bilateral Musculoskeletal: No Tenderness to Palpation of Joints or Extremities, Muscle Wasting Neurological: - - Lack of epicritic sensation light touch bilateral lower extremities Psych/Mental Status: Normal Affect, Appropriate Debridement Note Wound debrided: heel Laterality: Right - g Wound Grade/Stage: rade 3 Type of Debridement: Excisional debridement Anesthesia Used: 5% Lidocaine Gel Depth: in the subcutaneous layer Percentage of wound debrided: 100 Instrument Used: 7mm curette Tissue Removed: fibrous, devitalized subcutaneous, biofilm, slough Severity: Fat Layer Exposed Amount of bleeding with debridement: Mild Bleeding Controlled with: Pressure Patient tolerated procedure well - Additional Wound Wound debrided: toes Laterality: Right Wound Grade/Stage: grade 1 Type of Debridement: Excisional debridement Anesthesia Used: 5% Lidocaine Gel Depth: in the subcutaneous layer Percentage of wound debrided: 100 Instrument Used: 7mm curette Tissue Removed: fibrous, devitalized subcutaneous, biofilm, slough Severity: Fat Layer Exposed Amount of bleeding with debridement: Mild Bleeding Controlled with: Pressure Patient tolerated procedure: Patient tolerated procedure well Assessment/Plan Assessment: ulcer right forefoot - returned (digits 2). right heel ulcer muscle involved and exposed fascia without infection noted today (previous grade 3); s/p surgical debridement and application of advance wound care products (amniofil and epicord). Lymphedema. Ulcer left stump site with skin layer exposed, no infection. Chronic lower extremity edema and venous insufficiency. Morbid obesity. Type 2 diabetes uncontrolled with peripheral neuropathy. CKD. Hypertension. Left below-knee amputation. Malnutrition. Delayed wound healing. Nonadherence to treatment plan Plan: His ulcer sites were evaluated as noted in the clinical panel. I discussed his care plan. He was reassured that he does not have any additional magnets today there is not any over cellulitis present. All of the ulcer site of the right heel and toe was debrided as noted in the clinical panel. The site was cleansed. Guera was applied today and he was advised to changes daily. A dressing was applied today with additional compression dressings; to continue dressing changes with home health. It is okay to cleanse the toe maceration site with Hibiclens during dressing changes. He needs continued help with cleaning his home and personal hygiene and a prescription recommending continued home health care as previously provided. Preauthorization for advanced wound care product, epicord, was was denied at this time after an appeal letter was prepared previously. Application for apligraft will be initiated to optimize healing. He has responded this well after his operating room application and a serial application of clinical setting will be implemented upon approval. This is medically necessary for limb salvage he is high risk for; limb loss. He has tried traditional wound care products, surgical debridement, offloading, diabetes management, antibiotic treatment, infectious disease consultation, serial debridements which have failed to complete wound closure. Therefore this is medically necessary and I recommend this treatment course. His diabetes has been managed medically with his primary care physician, he has had nutrition recommendations and guidance provided during his hospital admission, and serial routine educational sessions while he is at the wound care center and the importance of glycemic control. Patient to continue left 3M to 2L dressing which is applied today from the distal right foot to thigh as well as his left below knee amputation stump site to the thigh. It is noted the skin is very friable and he is high risk for continued ulcers. I am concerned of ongoing fluid accumulation; he was advised to get compliant with the wheel chair leg rests and to resume his compression pumps at home. To continue aggressive elevation; it is noted this has helped with his edema reduction this past week. I also reviewed his last emergency visit documentation. It is noted that his culture from earlier this week is growing gram-negative rods and gram-positive rods. He was started on clindamycin. He was advised to complete his course. His foot x-ray of the right lower extremity was also reviewed which did not demonstrate foreign body, soft tissue emphysema, acute fracture dislocation. Ongoing severe edema is noted radiographically. He is now considered on complex care due to inability to fully adhere to the treatment program. CircAid thigh-high were ordered for the right lower extremity; he understands this is a graduated compression device. It is noted he had previous vascular surgery intervention. He had stents placed to improve arterial perfusion. He will follow-up with him as needed at this point. His noninvasive vascular arterial studies were reviewed and his COY is 1.05 on the right lower extremity. This will be monitored. To continue with nutritional supplementation, Glucerna. His diabetes is uncontrolled and he understands he is at risk for limb loss. To continue with proper glycemic control medical management to optimize healing. We revisited the availability to participate in the recommended hyperbaric oxygen therapy to optimize and speed up the healing process. He is personally amendable and has previously gone to [facility] for a previous wound with a good experience. This is medically necessary and he is high risk for continued limb and life loss due to his condition. He had a grade 3 right heel ulcer that has continued significant delays in healing. He is set up through family services for transportation and is not clear if they are able to take him here or to the [place] location on a daily basis to obtain these treatments. Upon confirmation of available transportation, and insurance prior authorization and medical clearance exam (H & P and the appropriate diagnostic data) will next be pursued. He was advised to attend his scheduled ENT visit as part of the screening process this afternoon. I answered his questions about the process in this medical treatment. I answered all his questions. To return to clinic in one week or call sooner if questions or concerns.
--- NOTE | 2018-01-21 11:46 | PCM.HBO.PN ---
History of Present Illness Date of Service: 01/21/18 Presenting Chief Complaint: Diabetic toe and heel ulcers with necrosis of bone DEL BARRIOS is a 57 year old currently undergoing hyperbaric oxygen therapy for Progress: 57-year-old white male here for diabetic foot and toe ulcers necrosis to bone Tolerance of hyperbaric oxygen therapy: Tolerating HBO well A TA for 2 hours as prescribed by physician. Vital signs have been stable Nurses are reviewing notes and chart. 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) Delayed wound healing (Chronic) Malnutrition (Chronic) Venous insufficiency (Chronic) Lymphedema (Chronic) Edema of both legs (Chronic) GERD (gastroesophageal reflux disease) (Chronic) Hypertension (Chronic) Hyperlipemia (Chronic) Morbid obesity with BMI of 45.0-49.9, adult (Chronic) Hyperlipidemia associated with type 2 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(Chronic) 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 Allergies/Adverse Reactions: Allergies bee venom protein (honey bee) Allergy (Verified 12/13/17 09:30) Swelling metronidazole [From Flagyl] Allergy (Verified 12/13/17 09:30) Itching Home Medications: Ambulatory Orders Medication Instructions Recorded Atorvastatin Calcium [Lipitor] 10 mg PO QHS 01/08/17 Brimonidine Tartrate 0.2% 1 drop EACH EYE BID 01/08/17 [Brimonidine 0.2% 5Ml Bottle] Ergocalciferol [Vitamin D] 50,000 unit PO FR 01/08/17 Gabapentin [Neurontin] 1,600 mg PO QHS 01/08/17 Gabapentin [Neurontin] 600 mg PO DAILY 01/08/17 Insulin U-500 [Humulin R U-500 105 units SC DINNER 01/08/17 ([facility])] Insulin U-500 [Humulin R U-500 105 units SC LUNCH 01/08/17 ([facility])] Insulin U-500 [Humulin R U-500 160 units SC BREAKFAST 01/08/17 ([facility])] Latanoprost 0.005% [Xalatan 1 drop EACH EYE QHS 01/08/17 Opthalmic] Losartan Potassium [Cozaar] 50 mg PO DAILY 01/08/17 Nebivolol HCl [Bystolic (Beta 10 mg PO DAILY 01/08/17 Akira)] Omeprazole [Prilosec] 40 mg PO DAILY 01/08/17 Acetaminophen [Tylenol Tablet] 650 mg PO Q6H PRN PRN tablet 09/07/17 Clopidogrel Bisulfate [Plavix] 75 mg PO DAILY 09/07/17 Menthol/Lanolin/Calamine/Znox 1 applic TOPICAL 0600,2200 tube 09/21/17 [Calmoseptine Ointment] Nutritional Supplement [Madhu - 1 packet PO BIDCM #60 packet 09/21/17 [place]ANGE FLAVOR] Nystatin Powder [Mycostatin Powder] 1 applic TOPICAL 0600,2200 bottle 09/21/17 Ferrous Sulfate [Iron] 325 mg PO BID 10/14/17 Clindamycin HCl 300 mg PO [id number] #40 cap 12/13/17 Maternal Family History: Diabetes Paternal Family History: Hypertension Sibling Family History: Diabetes Smoking Status: Former smoker Assessment/Plan Active Problems Ulcer of left lower extremity, limited to breakdown of skin (Chronic) Ulcer of right foot with fat layer exposed (Chronic) Type 2 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with diabetic polyneuropathy (Chronic) Malnutrition (Chronic) Lymphedema (Chronic) Edema of both legs (Chronic) Morbid obesity with BMI of 45.0-49.9, adult (Chronic) Left lower leg ulcers right diabetic foot ulcers with necrosis to bone continue HBO treatments as prescribed discharged with vital signs stable.
== END 2018-02-04 23:59 ==
LOC: DC 08:18
PROVIDERS: Family Provider Family Medicine Geriatric Medicine; PCP Family Medicine Geriatric Medicine; Visit Provider Podiatrist
DX: E11.42 Type 2 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with diabetic polyneuropathy (principal); E46 Unspecified protein-calorie malnutrition; T14.90XA Injury, unspecified, initial encounter; Z71.3 Dietary counseling and surveillance
CPT/HCPCS: 97803; G0108

== ENCOUNTER 2018-02-03 10:00 | Outpatient (RCR) | payer MEDICARE, MEDICAID, SELFPAY ==
[2018-01-05 00:53] VITALS: BP 115/58; PULSE 99; RESP 20; TEMP 36.6
[2018-01-05 10:05] VITALS: BP 127/74; PULSE 74; RESP 18; TEMP 36.2
--- NOTE | 2018-01-05 11:45 | PCM.WC.PN ---
(1) Ulcer of right foot with fat layer exposed Status: Chronic Current Visit: Yes Code(s): L97.512 - Non-pressure chronic ulcer of other part of right foot with fat layer exposed (2) Type 2 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with diabetic polyneuropathy Status: Chronic Current Visit: Yes Code(s): E11.42 - Type 2 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with diabetic polyneuropathy (3) Malnutrition Status: Chronic Current Visit: Yes Code(s): E46 - Unspecified protein-calorie malnutrition (4) Lymphedema Status: Chronic Current Visit: Yes Code(s): I89.0 - Lymphedema, not elsewhere classified (5) Edema of both legs Status: Chronic Current Visit: Yes Code(s): R60.0 - Localized edema (6) Morbid obesity with BMI of 45.0-49.9, adult Status: Chronic Current Visit: Yes Code(s): E66.01 - Morbid (severe) obesity due to excess calories; Z68.42 - Body mass index (BMI) 45.0-49.9, adult Type of Wound Date of Service: 01/05/18 Chief Complaint: Right heel and toe ulcers complicated with continued lower extremity swelling History of Wound: 57-year-old white male returns to clinic for follow-up of bilateral leg ulcers and right foot ulcers. He denies fever, chill, nausea, vomiting, loss of appetite. He underwent surgical debridement application of advanced wound care products, Amniofil and epi fix September 14, 2017. He is increased with elevation at home and his leg size is significantly reduced. Presents in a wheelchair today. he is amenable to undergo hyperbaric oxygen therapy if he is medically safe and able to set up transportation. He has been cleared from a medical standpoint. This was previously discussed when he had an open wound in the past transportation was limiting factor and he would like to revisit this again at this time. He denies odors or redness. He has demonstrated significant delays in healing. An appeal letter has been previously submitted for application of advanced wound care product, epi fix; this was approved. Progress of Wound: Improving - Physical Exam Vital Signs Temp Pulse Resp BP 97.1 F L 74 18 127/74 H 01/05/18 10:05 01/05/18 10:05 01/05/18 10:05 01/05/18 10:05 General: Alert, Oriented x3, Cooperative HEENT: Atraumatic Extremities: No cyanosis, Capillary Refill Less than 3 Seconds, No Calf Tenderness, Diminished Peripheral Pulses, Edema Skin: Ulcer/ Wound - No purulence, no erythema, streaking, no odor, no infection bilateral. The skin is atrophic. There is significant epithelialization islands and improved peripheral epithelialization noted to the toe site (5% of the cluster) as well as the heel. Wound Measurements and Assessment WC - Nurse 1 - General Ulcer Measurement Start: 01/05/18 10:04 Freq: Status: Active Protocol: Activity Type Activity Date Activity User E-Sign Co-Sign Detail Recorded Client Recorded Date Recorded By Document 01/05/18 10:05 RB [id number] 01/05/18 10:17 RB 01/05/18 10:05 Wound Center Nurse 1 [Ulcer Assessment] 18-right plantar foot -Current Size (cm) - Length 2.5 -Current Size (cm) - Width 1.1 -Current Size (cm) - Depth 0.1 -Total Square Cm 2.75 -Photo Taken No -Exudate Amt Large (67-100%) -Exudate Type Serosanguineous -Wound Margin Indistinct, Non -Visible -Granulation Amt Medium (34-66%) -Granulation Quality Flippin -Necrosis Amt Medium (34-66%) -Necrotic Tissue Type Adherent Slough -Structure Exposed N/A -Texture (Martha-wound Skin Appearance) Localized Edema -Moisture (Martha-wound Skin Appearance Maceration ) -Color (Martha-wound Skin Appearance) Hemosiderin Staining -Temperature (Martha-wound Skin No Abnormality Appearance) (Pt Warm) -Ulcer Cleansing Wound Cleanser -Foul Odor after Cleansing No -Anesthetic Used 4% Lidocaine Solution #13 R Med Heel -Current Size (cm) - Length 5.8 -Current Size (cm) - Width 4 -Current Size (cm) - Depth 0.1 -Total Square Cm 23.2 -Photo Taken No -Exudate Amt Large (67-100%) -Exudate Type Serosanguineous -Wound Margin Distinct, Outline Attached -Granulation Amt Small (1-33%) -Granulation Quality Flippin -Necrosis Amt Large (67-100%) -Necrotic Tissue Type Adherent Slough -Structure Exposed N/A -Texture (Martha-wound Skin Appearance) Scarring -Moisture (Martha-wound Skin Appearance Maceration ) -Color (Martha-wound Skin Appearance) Hemosiderin Staining -Temperature (Martha-wound Skin No Abnormality Appearance) (Pt Warm) -Tenderness on Palpation (Martha-wound No Skin Appearance) -Ulcer Cleansing Wound Cleanser -Foul Odor after Cleansing No -Anesthetic Used 4% Lidocaine Solution #9 RIGHt norman -Current Size (cm) - Length 0 -Current Size (cm) - Width 0 -Current Size (cm) - Depth 0 -Total Square Cm 0 -Photo Taken Yes -Exudate Amt None Present (0 %) -Wound Margin Flat & Intact -Granulation Amt Large (67-100%) -Granulation Quality Flippin -Structure Exposed N/A -Texture (Martha-wound Skin Appearance) Scarring -Moisture (Martha-wound Skin Appearance Dry/Scaly ) -Color (Martha-wound Skin Appearance) Hemosiderin Staining -Temperature (Martha-wound Skin No Abnormality Appearance) (Pt Warm) -Ulcer Cleansing Wound Cleanser -Foul Odor after Cleansing No -Anesthetic Used 4% Lidocaine Solution #21 Right Foot-Toes w/Metatarsal Head circumfrential -Current Size (cm) - Length 4.6 -Current Size (cm) - Width 4.8 -Current Size (cm) - Depth 0.1 -Total Square Cm 22.08 -Photo Taken No -Exudate Amt Large (67-100%) -Exudate Type Serosanguineous -Wound Margin Indistinct, Non -Visible -Granulation Amt Medium (34-66%) -Granulation Quality Flippin -Necrosis Amt Medium (34-66%) -Necrotic Tissue Type Adherent Slough -Structure Exposed N/A -Texture (Martha-wound Skin Appearance) Localized Edema Scarring -Moisture (Martha-wound Skin Appearance Maceration ) -Color (Martha-wound Skin Appearance) Hemosiderin Staining -Temperature (Martha-wound Skin No Abnormality Appearance) (Pt Warm) -Ulcer Cleansing Wound Cleanser -Foul Odor after Cleansing No -Anesthetic Used 4% Lidocaine Solution [Edema Assessment] -Right Calf (cm) 36.5 -Right Ankle (cm) 29 -Left Calf (cm) 48.5 WC - Nurse 2 - General Ulcer CM Notes Start: 01/05/18 10:04 Freq: Status: Active Protocol: Activity Type Activity Date Activity User E-Sign Co-Sign Detail Recorded Client Recorded Date Recorded By Document 01/05/18 10:28 [id number] 01/05/18 10:46 01/05/18 10:28 Wound Center Nurse 2 [Procedure/Treatment] 18-right plantar foot -Time 10:31 -Correct Patient Yes -Correct Side, Site, Position Yes -Correct Procedure Yes -Procedure Performed Yes -Post Debridement Size (cm) - Length 0 -Post Debridement Size (cm) - Width 0 -Post Debridement Size (cm) - Depth 0 -Total Square Cm 0 -Wound/Ulcer Outcome Healed- Epithelialized -Ulcer Cleansing Rinsed/ Irrigated with Saline -Foul Odor after Cleansing No -Bioengineered Tissue No -Bleeding Controlled with NA -Treatment Response Procedure Tolerated Well #13 R Med Heel -Time 10:31 -Correct Patient Yes -Correct Side, Site, Position Yes -Correct Procedure Yes -Procedure Performed Yes -Type of Procedure Debridement -Clinical Debridement Subcutaneous -Post Debridement Size (cm) - Length 5.9 -Post Debridement Size (cm) - Width 4.1 -Post Debridement Size (cm) - Depth 0.1 -Total Square Cm 24.19 -Wound/Ulcer Outcome Not Healed -Ulcer Cleansing Rinsed/ Irrigated with Saline -Foul Odor after Cleansing No -Bioengineered Tissue Yes -Type of bioengineered Tissue EPIFIX -Expiration Date 10/05/22 -Product Lot Number [id number] -Percent Used 100 -Saline Lot Number [id number] -Topical Lidocaine (%) 4 -Bleeding Controlled with Pressure -Treatment Response Procedure Tolerated Well #9 RIGHt norman -Time 10:29 -Correct Patient Yes -Correct Side, Site, Position Yes -Correct Procedure Yes -Procedure Performed Yes -Post Debridement Size (cm) - Length 0 -Post Debridement Size (cm) - Width 0 -Post Debridement Size (cm) - Depth 0 -Total Square Cm 0 -Wound/Ulcer Outcome Healed- Epithelialized -Ulcer Cleansing Rinsed/ Irrigated with Saline -Foul Odor after Cleansing No -Bioengineered Tissue No -Bleeding Controlled with NA -Treatment Response Procedure Tolerated Well #21 Right Foot-Toes w/Metatarsal Head circumfrential -Time 10:46 -Correct Patient Yes -Correct Side, Site, Position Yes -Correct Procedure Yes -Procedure Performed Yes -Type of Procedure Debridement -Clinical Debridement Subcutaneous -Post Debridement Size (cm) - Length 4.7 -Post Debridement Size (cm) - Width 4.9 -Post Debridement Size (cm) - Depth 0.1 -Total Square Cm 23.03 -Wound/Ulcer Outcome Not Healed -Ulcer Cleansing Rinsed/ Irrigated with Saline -Foul Odor after Cleansing No -Bioengineered Tissue No -Topical Lidocaine (%) 4 -Bleeding Controlled with Pressure -Treatment Response Procedure Tolerated Well [See Physician Procedure note for Specifics] Pain Scale: 0-10 Numeric [Pain] -Is Patient Pain Free? Yes Musculoskeletal: No Tenderness to Palpation of Joints or Extremities, Muscle Wasting, - - Left below-knee amputation. Significant lymphedema bilateral lower extremities Neurological: - - Lack of epicritic sensation light touch bilateral lower extremities Psych/Mental Status: Normal Affect, Appropriate Debridement Note Post-Debridement Measurements/Treatment WC - Nurse 2 - General Ulcer CM Notes Start: 01/05/18 10:04 Freq: Status: Active Protocol: Activity Type Activity Date Activity User E-Sign Co-Sign Detail Recorded Client Recorded Date Recorded By Document 01/05/18 10:28 [id number] 01/05/18 10:46 01/05/18 10:28 Wound Center Nurse 2 18-right plantar foot -Time 10:31 -Correct Patient Yes -Correct Side, Site, Position Yes -Correct Procedure Yes -Procedure Performed Yes -Post Debridement Size (cm) - Length 0 -Post Debridement Size (cm) - Width 0 -Post Debridement Size (cm) - Depth 0 -Total Square Cm 0 -Wound/Ulcer Outcome Healed- Epithelialized -Ulcer Cleansing Rinsed/ Irrigated with Saline -Foul Odor after Cleansing No -Bioengineered Tissue No -Bleeding Controlled with NA -Treatment Response Procedure Tolerated Well #13 R Med Heel -Time 10:31 -Correct Patient Yes -Correct Side, Site, Position Yes -Correct Procedure Yes -Procedure Performed Yes -Type of Procedure Debridement -Clinical Debridement Subcutaneous -Post Debridement Size (cm) - Length 5.9 -Post Debridement Size (cm) - Width 4.1 -Post Debridement Size (cm) - Depth 0.1 -Total Square Cm 24.19 -Wound/Ulcer Outcome Not Healed -Ulcer Cleansing Rinsed/ Irrigated with Saline -Foul Odor after Cleansing No -Bioengineered Tissue Yes -Type of bioengineered Tissue EPIFIX -Expiration Date 10/05/22 -Product Lot Number [id number] -Percent Used 100 -Saline Lot Number [id number] -Topical Lidocaine (%) 4 -Bleeding Controlled with Pressure -Treatment Response Procedure Tolerated Well #9 RIGHt norman -Time 10:29 -Correct Patient Yes -Correct Side, Site, Position Yes -Correct Procedure Yes -Procedure Performed Yes -Post Debridement Size (cm) - Length 0 -Post Debridement Size (cm) - Width 0 -Post Debridement Size (cm) - Depth 0 -Total Square Cm 0 -Wound/Ulcer Outcome Healed- Epithelialized -Ulcer Cleansing Rinsed/ Irrigated with Saline -Foul Odor after Cleansing No -Bioengineered Tissue No -Bleeding Controlled with NA -Treatment Response Procedure Tolerated Well #21 Right Foot-Toes w/Metatarsal Head circumfrential -Time 10:46 -Correct Patient Yes -Correct Side, Site, Position Yes -Correct Procedure Yes -Procedure Performed Yes -Type of Procedure Debridement -Clinical Debridement Subcutaneous -Post Debridement Size (cm) - Length 4.7 -Post Debridement Size (cm) - Width 4.9 -Post Debridement Size (cm) - Depth 0.1 -Total Square Cm 23.03 -Wound/Ulcer Outcome Not Healed -Ulcer Cleansing Rinsed/ Irrigated with Saline -Foul Odor after Cleansing No -Bioengineered Tissue No -Topical Lidocaine (%) 4 -Bleeding Controlled with Pressure -Treatment Response Procedure Tolerated Well Pain Scale: 0-10 Numeric Is Patient Pain Free? Yes Wound debrided: toe Laterality: Left Wound Grade/Stage: grade 1 Type of Debridement: Excisional debridement Anesthesia Used: 4% Lidocaine Solution Depth: in the subcutaneous layer Percentage of wound debrided: - - 5% Instrument Used: #15 blade Tissue Removed: Fibrous, devitalized subcutaneous, biofilm, slough Severity: Fat Layer Exposed Amount of bleeding with debridement: Mild Bleeding Controlled with: Pressure Patient tolerated procedure well Assessment/Plan Active Problems Ulcer of right foot with fat layer exposed (Chronic) Type 2 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with diabetic polyneuropathy (Chronic) Malnutrition (Chronic) Lymphedema (Chronic) Edema of both legs (Chronic) Morbid obesity with BMI of 45.0-49.9, adult (Chronic) Assessment: ulcer right forefoot - returned (digits 2). right heel ulcer muscle involved and exposed fascia without infection noted today (previous grade 3); s/p surgical debridement and application of advance wound care products (amniofil and epicord). Left below-knee amputation sub-hemorrhagic tissue with continued weeping noted; no infection. Lymphedema. Ulcer left stump site with skin layer exposed, no infection. Chronic lower extremity edema and venous insufficiency. Morbid obesity. Type 2 diabetes uncontrolled with peripheral neuropathy. CKD. Hypertension. Left below-knee amputation. Malnutrition. Delayed wound healing. Nonadherence to treatment plan Plan: I reviewed and discussed his case debridement done as documented above in the clinical panel, procedure was well tolerated. Epifix was applied to the right heel after verbal consent was obtained. No product was wasted in addition was overlap to allow improved incorporation. This was applied according to standard protocol. He tolerated this well. A secondary dressing was applied. leave in place for 1 week. Continue compression and elevate lower extreity when sitting and in bed. Optimal blood sugar contol. Continue protein suppplements and increased protein in diet. Per chart review it appears he has been cleared from medical standpoint to start hyperbaric oxygen therapy and I recommend he move forward with this to optimize his healing. His child care director contact information has been provided in the nursing staff will follow up on his transportation status. We discussed the importance of implementing hyperbaric oxygen therapy in a timely manner. Follow up in 1 week with at the wound healing center or call sooner if he has any questions or concerns.
[2018-01-12 09:58] VITALS: BP 125/60; PULSE 90; RESP 16; TEMP 35.1
--- NOTE | 2018-01-12 14:55 | NURSING ---
This nurse called [facility] Shields (second attempt) and had to leave a message.
--- NOTE | 2018-01-12 16:14 | PCM.WC.PN ---
(1) Ulcer of right foot with fat layer exposed Status: Chronic Code(s): L97.512 - Non-pressure chronic ulcer of other part of right foot with fat layer exposed (2) Type 2 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with diabetic polyneuropathy Status: Chronic Code(s): E11.42 - Type 2 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with diabetic polyneuropathy (3) Malnutrition Status: Chronic Code(s): E46 - Unspecified protein-calorie malnutrition (4) Lymphedema Status: Chronic Code(s): I89.0 - Lymphedema, not elsewhere classified (5) Edema of both legs Status: Chronic Code(s): R60.0 - Localized edema (6) Morbid obesity with BMI of 45.0-49.9, adult Status: Chronic Code(s): E66.01 - Morbid (severe) obesity due to excess calories; Z68.42 - Body mass index (BMI) 45.0-49.9, adult Type of Wound Date of Service: 01/15/18 Chief Complaint: Right heel and toe ulcers complicated with continued lower extremity swelling History of Wound: 57-year-old white male returns to clinic for follow-up of bilateral leg ulcers and right foot ulcers. He denies fever, chill, nausea, vomiting, loss of appetite. He underwent surgical debridement application of advanced wound care products, Amniofil and epi fix September 14, 2017. He is increased with elevation at home and his leg size is significantly reduced. Presents in a wheelchair today. he is amenable to undergo hyperbaric oxygen therapy if he is medically safe and able to set up transportation. He has been cleared from a medical standpoint. This was previously discussed when he had an open wound in the past transportation was limiting factor and he would like to revisit this again at this time. He denies odors or redness. He has demonstrated significant delays in healing. An appeal letter has been previously submitted for application of advanced wound care product, epi fix; this was approved. Progress of Wound: Improving - Physical Exam Vital Signs Temp Pulse Resp BP 95.1 F L 90 16 125/60 H 01/12/18 09:58 01/12/18 09:58 01/12/18 09:58 01/12/18 09:58 General: Alert, Oriented x3, Cooperative Extremities: No cyanosis, Capillary Refill Less than 3 Seconds, No Calf Tenderness - Negative Harry and Badillo sign right, Diminished Peripheral Pulses, - - Left below-knee amputation. Bilateral lower extremities with lymphedema continued Skin: Ulcer/ Wound - No purulence, no erythema, streaking, no odor, no infection. There is weeping moisture resolved to the left lower extremity. There is weeping moisture to the toes of the right foot. Wound Measurements and Assessment WC - Nurse 1 - General Ulcer Measurement Start: 01/05/18 10:04 Freq: Status: Active Protocol: Activity Type Activity Date Activity User E-Sign Co-Sign Detail Recorded Client Recorded Date Recorded By Document 01/12/18 09:58 DL [id number] 01/12/18 10:13 DL 01/12/18 09:58 Wound Center Nurse 1 [Ulcer Assessment] #13 R Med Heel -Current Size (cm) - Length 3.3 -Current Size (cm) - Width 3.3 -Current Size (cm) - Depth 0.1 -Total Square Cm 10.89 -Photo Taken No -Exudate Amt Medium (34-66%) -Exudate Type Serosanguineous -Wound Margin Thickened -Granulation Amt Medium (34-66%) -Granulation [place] -Necrosis Amt Medium (34-66%) -Necrotic Tissue Type Adherent Slough -Structure Exposed N/A -Texture (Martha-wound Skin Appearance) Scarring -Moisture (Martha-wound Skin Appearance Maceration ) -Color (Martha-wound Skin Appearance) Rubor -Temperature (Martha-wound Skin No Abnormality Appearance) (Pt Warm) -Tenderness on Palpation (Martha-wound No Skin Appearance) -Ulcer Cleansing Wound Cleanser -Foul Odor after Cleansing No -Anesthetic Used 4% Lidocaine Solution #21 Right Foot-Toes w/Metatarsal Head circumfrential -Current Size (cm) - Length 8.2 -Current Size (cm) - Width 4 -Current Size (cm) - Depth 0.1 -Total Square Cm 32.8 -Photo Taken No -Exudate Amt Medium (34-66%) -Exudate Type Serosanguineous -Wound Margin Indistinct, Non -Visible -Granulation Amt Medium (34-66%) -Granulation [place] Red -Necrosis Amt Medium (34-66%) -Necrotic Tissue Type Adherent Slough -Structure Exposed N/A -Texture (Martha-wound Skin Appearance) Localized Edema Scarring -Moisture (Martha-wound Skin Appearance Maceration ) -Color (Martha-wound Skin Appearance) No Abnormality -Temperature (Martha-wound Skin No Abnormality Appearance) (Pt Warm) -Ulcer Cleansing Wound Cleanser -Foul Odor after Cleansing No -Anesthetic Used 4% Lidocaine Solution [Edema Assessment] -Right Calf (cm) 35.8 -Right Ankle (cm) 28.5 -Left Calf (cm) 46 WC - Nurse 2 - General Ulcer CM Notes Start: 01/05/18 10:04 Freq: Status: Active Protocol: Activity Type Activity Date Activity User E-Sign Co-Sign Detail Recorded Client Recorded Date Recorded By Document 01/12/18 10:39 TM [id number] 01/12/18 10:43 TM 01/12/18 10:39 Wound Center Nurse 2 [Procedure/Treatment] #13 R Med Heel -Time 10:39 -Correct Patient Yes -Correct Side, Site, Position Yes -Correct Procedure Yes -Procedure Performed Yes -Type of Procedure Debridement -Clinical Debridement Subcutaneous -Post Debridement Size (cm) - Length 3.4 -Post Debridement Size (cm) - Width 3.4 -Post Debridement Size (cm) - Depth 0.1 -Total Square Cm 11.56 -Wound/Ulcer Outcome Not Healed -Ulcer Cleansing Rinsed/ Irrigated with Saline -Foul Odor after Cleansing No -Bioengineered Tissue Yes -Type of bioengineered Tissue EPIFIX -Expiration Date 10/18/22 -Product Lot Number [id number] -Percent Used 100 -Saline Lot Number [id number] -Topical Lidocaine (%) 4 -Bleeding Controlled with Pressure -Treatment Response Procedure Tolerated Well #21 Right Foot-Toes w/Metatarsal Head circumfrential -Time 10:40 -Correct Patient Yes -Correct Side, Site, Position Yes -Correct Procedure Yes -Procedure Performed Yes -Type of Procedure Debridement -Clinical Debridement Subcutaneous -Post Debridement Size (cm) - Length 8.3 -Post Debridement Size (cm) - Width 4.1 -Post Debridement Size (cm) - Depth 0.1 -Total Square Cm 34.03 -Wound/Ulcer Outcome Not Healed -Ulcer Cleansing Rinsed/ Irrigated with Saline -Foul Odor after Cleansing No -Bioengineered Tissue No -Topical Lidocaine (%) 4 -Bleeding Controlled with Pressure -Treatment Response Procedure Tolerated Well [See Physician Procedure note for Specifics] Pain Scale: 0-10 Numeric [Pain] -Is Patient Pain Free? Yes Musculoskeletal: No Tenderness to Palpation of Joints or Extremities, Muscle Wasting Neurological: - - Lack of epicritic sensation light touch right lower extremity Psych/Mental Status: Normal Affect, Appropriate Debridement Note Post-Debridement Measurements/Treatment WC - Nurse 2 - General Ulcer CM Notes Start: 01/05/18 10:04 Freq: Status: Active Protocol: Activity Type Activity Date Activity User E-Sign Co-Sign Detail Recorded Client Recorded Date Recorded By Document 01/05/18 10:28 [id number] 01/05/18 10:46 TM Document 01/12/18 10:39 TM [id number] 01/12/18 10:43 TM 01/05/18 01/12/18 10:28 10:39 Wound Center Nurse 2 18-right plantar foot -Time 10:31 -Correct Patient Yes -Correct Side, Site, Position Yes -Correct Procedure Yes -Procedure Performed Yes -Post Debridement Size (cm) - Length 0 -Post Debridement Size (cm) - Width 0 -Post Debridement Size (cm) - Depth 0 -Total Square Cm 0 -Wound/Ulcer Outcome Healed- Epithelialized -Ulcer Cleansing Rinsed/ Irrigated with Saline -Foul Odor after Cleansing No -Bioengineered Tissue No -Bleeding Controlled with NA -Treatment Response Procedure Tolerated Well #13 R Med Heel -Time 10:31 10:39 -Correct Patient Yes Yes -Correct Side, Site, Position Yes Yes -Correct Procedure Yes Yes -Procedure Performed Yes Yes -Type of Procedure Debridement Debridement -Clinical Debridement Subcutaneous Subcutaneous -Post Debridement Size (cm) - Length 5.9 3.4 -Post Debridement Size (cm) - Width 4.1 3.4 -Post Debridement Size (cm) - Depth 0.1 0.1 -Total Square Cm 24.19 11.56 -Wound/Ulcer Outcome Not Healed Not Healed -Ulcer Cleansing Rinsed/ Rinsed/ Irrigated with Irrigated with Saline Saline -Foul Odor after Cleansing No No -Bioengineered Tissue Yes Yes -Type of bioengineered Tissue EPIFIX EPIFIX -Expiration Date 10/05/22 10/18/22 -Product Lot Number [id number] -Percent Used 100 100 -Saline Lot Number [id number] -Topical Lidocaine (%) 4 4 -Bleeding Controlled with Pressure Pressure -Treatment Response Procedure Procedure Tolerated Well Tolerated Well #9 RIGHt norman -Time 10:29 -Correct Patient Yes -Correct Side, Site, Position Yes -Correct Procedure Yes -Procedure Performed Yes -Post Debridement Size (cm) - Length 0 -Post Debridement Size (cm) - Width 0 -Post Debridement Size (cm) - Depth 0 -Total Square Cm 0 -Wound/Ulcer Outcome Healed- Epithelialized -Ulcer Cleansing Rinsed/ Irrigated with Saline -Foul Odor after Cleansing No -Bioengineered Tissue No -Bleeding Controlled with NA -Treatment Response Procedure Tolerated Well #21 Right Foot-Toes w/Metatarsal Head circumfrential -Time 10:46 10:40 -Correct Patient Yes Yes -Correct Side, Site, Position Yes Yes -Correct Procedure Yes Yes -Procedure Performed Yes Yes -Type of Procedure Debridement Debridement -Clinical Debridement Subcutaneous Subcutaneous -Post Debridement Size (cm) - Length 4.7 8.3 -Post Debridement Size (cm) - Width 4.9 4.1 -Post Debridement Size (cm) - Depth 0.1 0.1 -Total Square Cm 23.03 34.03 -Wound/Ulcer Outcome Not Healed Not Healed -Ulcer Cleansing Rinsed/ Rinsed/ Irrigated with Irrigated with Saline Saline -Foul Odor after Cleansing No No -Bioengineered Tissue No No -Topical Lidocaine (%) 4 4 -Bleeding Controlled with Pressure Pressure -Treatment Response Procedure Procedure Tolerated Well Tolerated Well Pain Scale: 0-10 Numeric Is Patient Pain Free? Yes Yes Wound debrided: heel Laterality: Right Wound Grade/Stage: grade 3 Type of Debridement: Excisional debridement Anesthesia Used: 4% Lidocaine Solution Depth: in the subcutaneous layer Percentage of wound debrided: 100 Instrument Used: #15 blade Tissue Removed: fibrous, devitalized subcutaneous, biofilm, slough Severity: Fat Layer Exposed Amount of bleeding with debridement: Mild Bleeding Controlled with: Pressure Patient tolerated procedure well - Additional Wound Wound debrided: toe Laterality: Right Wound Grade/Stage: grade 1 Type of Debridement: Excisional debridement Anesthesia Used: 4% Lidocaine Solution Depth: in the subcutaneous layer Percentage of wound debrided: 100 Instrument Used: #15 blade Tissue Removed: fibrous, devitalized subcutaneous, biofilm, slough Severity: Fat Layer Exposed Amount of bleeding with debridement: Mild Bleeding Controlled with: Pressure Patient tolerated procedure: Patient tolerated procedure well Assessment/Plan Assessment: ulcer right forefoot - returned (digits 2). right heel ulcer muscle involved and exposed fascia without infection noted today (previous grade 3); s/p surgical debridement and application of advance wound care products (amniofil and epicord). Left below-knee amputation sub-hemorrhagic tissue with resolved weeping noted; no infection. Lymphedema. Ulcer left stump site with skin layer exposed, no infection. Chronic lower extremity edema and venous insufficiency. Morbid obesity. Type 2 diabetes uncontrolled with peripheral neuropathy. CKD. Hypertension. Left below-knee amputation. Malnutrition. Delayed wound healing. Nonadherence to treatment plan Plan: I reviewed and discussed his case debridement done as documented above in the clinical panel, procedure was well tolerated. Epifix was applied to the right heel after verbal consent was obtained. No product was wasted in addition was overlap to allow improved incorporation. This was applied according to standard protocol. He tolerated this well. A secondary dressing was applied. leave in place for 1 week. Continue compression and elevate lower extreity when sitting and in bed. Optimal blood sugar contol. Continue protein suppplements and increased protein in diet. Per chart review it appears he has been cleared from medical standpoint to start hyperbaric oxygen therapy and I recommend he move forward with this to optimize his healing. His physician primary care sports medicine contact information has been provided in the nursing staff will follow up on his transportation status. We discussed the importance of implementing hyperbaric oxygen therapy in a timely manner. Several phone calls have been made, approximately 4, due to his nursing pet care worker and no reply has been obtained. If his left limb continues to have no weeping next week the plan is to progress him into his strength wrap with the intention to progress to his leg prosthetic. Follow up in 1 week with at the wound healing center or call sooner if he has any questions or concerns.
[2018-01-18 09:26] LABS: Bedside Glucose 217 mg/dL (70-110)
[2018-01-18 11:36] LABS: Bedside Glucose 280 mg/dL (70-110)
[2018-01-18 12:19] VITALS: BP 139/62; BP 153/72; PULSE 86; PULSE 90; RESP 16; TEMP 36; TEMP 36.3
--- NOTE | 2018-01-18 13:12 | PCM.HBO.PN ---
History of Present Illness Date of Service: 01/18/18 Presenting Chief Complaint: Diabetic toe and heel ulcers with necrosis of bone DEL BARRIOS is a 57 year old currently undergoing hyperbaric oxygen therapy for open diabetic ulcer of the lower extremity with necrosis of the bone. Progress: The patient appeared to tolerate hyperbaric oxygen therapy session #1 without difficulties. Tolerance of hyperbaric oxygen therapy: Hyperbaric oxygen therapy was administered as per the facility's protocol. The patient tolerated hyperbaric oxygen therapy well, without complaints or complications. Upon emergence from the hyperbaric chamber, the patient's vital signs remained stable. He was discharged in good condition. Past Medical History Chronic Problems Ulcer of right lower extremity with fat layer exposed (Chronic) Ulcer of left lower extremity, limited to breakdown of skin (Chronic) Complete below knee amputation of left lower extremity (Chronic) Ulcer of right foot with necrosis of muscle (Chronic) Ulcer of right foot with fat layer exposed (Chronic) 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) Delayed wound healing (Chronic) Malnutrition (Chronic) Venous insufficiency (Chronic) Lymphedema (Chronic) Edema of both legs (Chronic) GERD (gastroesophageal reflux disease) (Chronic) Hypertension (Chronic) Hyperlipemia (Chronic) Morbid obesity with BMI of 45.0-49.9, adult (Chronic) Hyperlipidemia associated with type 2 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(Chronic) 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 Allergies/Adverse Reactions: Allergies bee venom protein (honey bee) Allergy (Verified 12/13/17 09:30) Swelling metronidazole [From Flagyl] Allergy (Verified 12/13/17 09:30) Itching Home Medications: Ambulatory Orders Medication Instructions Recorded Atorvastatin Calcium [Lipitor] 10 mg PO QHS 01/08/17 Brimonidine Tartrate 0.2% 1 drop EACH EYE BID 01/08/17 [Brimonidine 0.2% 5Ml Bottle] Ergocalciferol [Vitamin D] 50,000 unit PO FR 01/08/17 Gabapentin [Neurontin] 1,600 mg PO QHS 01/08/17 Gabapentin [Neurontin] 600 mg PO DAILY 01/08/17 Insulin U-500 [Humulin R U-500 105 units SC DINNER 01/08/17 ([facility])] Insulin U-500 [Humulin R U-500 105 units SC LUNCH 01/08/17 ([facility])] Insulin U-500 [Humulin R U-500 160 units SC BREAKFAST 01/08/17 ([facility])] Latanoprost 0.005% [Xalatan 1 drop EACH EYE QHS 01/08/17 Opthalmic] Losartan Potassium [Cozaar] 50 mg PO DAILY 01/08/17 Nebivolol HCl [Bystolic (Beta 10 mg PO DAILY 01/08/17 Akira)] Omeprazole [Prilosec] 40 mg PO DAILY 01/08/17 Acetaminophen [Tylenol Tablet] 650 mg PO Q6H PRN PRN tablet 09/07/17 Clopidogrel Bisulfate [Plavix] 75 mg PO DAILY 09/07/17 Menthol/Lanolin/Calamine/Znox 1 applic TOPICAL 0600,2200 tube 09/21/17 [Calmoseptine Ointment] Nutritional Supplement [Madhu - 1 packet PO BIDCM #60 packet 09/21/17 ORANGE FLAVOR] Nystatin Powder [Mycostatin Powder] 1 applic TOPICAL 0600,2200 bottle 09/21/17 Ferrous Sulfate [Iron] 325 mg PO BID 10/14/17 Clindamycin HCl 300 mg PO [id number] #40 cap 12/13/17 Maternal Family History: Diabetes Paternal Family History: Hypertension Sibling Family History: Diabetes Smoking Status: Former smoker Physical Exam Vital Signs Temp Pulse Resp BP 97.4 F L 90 16 153/72 H 01/18/18 12:19 01/18/18 12:19 01/18/18 12:19 01/18/18 12:19 General: Alert, Oriented x3, Cooperative, No apparent distress, Well developed, Well nourished HEENT: Atraumatic, PERRLA, EOMI, Normocephalic Lungs: Normal air movement Psych/Mental Status: Normal Affect, Appropriate, Alert and oriented to time, place, person, mood and affect Assessment/Plan The patient tolerated hyperbaric oxygen therapy well, which will be continued as per the patient's medical plan.
[2018-01-19 07:56] LABS: Bedside Glucose 190 mg/dL (70-110)
[2018-01-19 09:40] VITALS: BP 126/67; BP 152/55; PULSE 84; PULSE 87; RESP 16; RESP 18; TEMP 36.2
[2018-01-19 10:21] LABS: Bedside Glucose 118 mg/dL (70-110)
--- NOTE | 2018-01-19 10:39 | PCM.HBO.PN ---
History of Present Illness Date of Service: 01/19/18 Presenting Chief Complaint: Diabetic toe and heel ulcers with necrosis of bone DEL BARRIOS is a 57 year old currently undergoing hyperbaric oxygen therapy for open diabetic ulcer of the lower extremity with necrosis of the bone. Progress: The patient appeared to tolerate hyperbaric oxygen therapy session #2 without difficulties. Tolerance of hyperbaric oxygen therapy: Hyperbaric oxygen therapy was administered as per the facility's protocol. The patient tolerated hyperbaric oxygen therapy well, without complaints or complications. Upon emergence from the hyperbaric chamber, the patient's vital signs remained stable. He was discharged in good condition. Past Medical History Chronic Problems Ulcer of right lower extremity with fat layer exposed (Chronic) Ulcer of left lower extremity, limited to breakdown of skin (Chronic) Complete below knee amputation of left lower extremity (Chronic) Ulcer of right foot with necrosis of muscle (Chronic) Ulcer of right foot with fat layer exposed (Chronic) 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) Delayed wound healing (Chronic) Malnutrition (Chronic) Venous insufficiency (Chronic) Lymphedema (Chronic) Edema of both legs (Chronic) GERD (gastroesophageal reflux disease) (Chronic) Hypertension (Chronic) Hyperlipemia (Chronic) Morbid obesity with BMI of 45.0-49.9, adult (Chronic) Hyperlipidemia associated with type 2 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(Chronic) 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 Allergies/Adverse Reactions: Allergies bee venom protein (honey bee) Allergy (Verified 12/13/17 09:30) Swelling metronidazole [From Flagyl] Allergy (Verified 12/13/17 09:30) Itching Home Medications: Ambulatory Orders Medication Instructions Recorded Atorvastatin Calcium [Lipitor] 10 mg PO QHS 01/08/17 Brimonidine Tartrate 0.2% 1 drop EACH EYE BID 01/08/17 [Brimonidine 0.2% 5Ml Bottle] Ergocalciferol [Vitamin D] 50,000 unit PO FR 01/08/17 Gabapentin [Neurontin] 1,600 mg PO QHS 01/08/17 Gabapentin [Neurontin] 600 mg PO DAILY 01/08/17 Insulin U-500 [Humulin R U-500 105 units SC DINNER 01/08/17 ([facility])] Insulin U-500 [Humulin R U-500 105 units SC LUNCH 01/08/17 ([facility])] Insulin U-500 [Humulin R U-500 160 units SC BREAKFAST 01/08/17 ([facility])] Latanoprost 0.005% [Xalatan 1 drop EACH EYE QHS 01/08/17 Opthalmic] Losartan Potassium [Cozaar] 50 mg PO DAILY 01/08/17 Nebivolol HCl [Bystolic (Beta 10 mg PO DAILY 01/08/17 Akira)] Omeprazole [Prilosec] 40 mg PO DAILY 01/08/17 Acetaminophen [Tylenol Tablet] 650 mg PO Q6H PRN PRN tablet 09/07/17 Clopidogrel Bisulfate [Plavix] 75 mg PO DAILY 09/07/17 Menthol/Lanolin/Calamine/Znox 1 applic TOPICAL 0600,2200 tube 09/21/17 [Calmoseptine Ointment] Nutritional Supplement [Madhu - 1 packet PO BIDCM #60 packet 09/21/17 ORANGE FLAVOR] Nystatin Powder [Mycostatin Powder] 1 applic TOPICAL 0600,2200 bottle 09/21/17 Ferrous Sulfate [Iron] 325 mg PO BID 10/14/17 Clindamycin HCl 300 mg PO [id number] #40 cap 12/13/17 Maternal Family History: Diabetes Paternal Family History: Hypertension Sibling Family History: Diabetes Smoking Status: Former smoker Physical Exam Vital Signs Temp Pulse Resp BP 97.2 F L 87 18 152/55 H 01/19/18 09:40 01/19/18 09:40 01/19/18 09:40 01/19/18 09:40 General: Alert, Oriented x3, Cooperative, No apparent distress HEENT: Atraumatic Lungs: Normal air movement Psych/Mental Status: Normal Affect Assessment/Plan The patient tolerated hyperbaric oxygen therapy well, which will be continued as per the patient's medical plan.
[2018-01-19 11:23] VITALS: BP 126/67; PULSE 84; RESP 16; TEMP 36.2
--- NOTE | 2018-01-19 12:06 | PCM.WC.PN ---
(1) Ulcer of right foot with fat layer exposed Status: Chronic Current Visit: Yes Code(s): L97.512 - Non-pressure chronic ulcer of other part of right foot with fat layer exposed (2) Ulcer of left lower extremity, limited to breakdown of skin Status: Chronic Current Visit: Yes Code(s): L97.921 - Non-pressure chronic ulcer of unspecified part of left lower leg limited to breakdown of skin (3) Type 2 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with diabetic polyneuropathy Status: Chronic Current Visit: Yes Code(s): E11.42 - Type 2 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with diabetic polyneuropathy (4) Malnutrition Status: Chronic Current Visit: Yes Code(s): E46 - Unspecified protein-calorie malnutrition (5) Lymphedema Status: Chronic Current Visit: Yes Code(s): I89.0 - Lymphedema, not elsewhere classified (6) Edema of both legs Status: Chronic Current Visit: Yes Code(s): R60.0 - Localized edema (7) Morbid obesity with BMI of 45.0-49.9, adult Status: Chronic Current Visit: Yes Code(s): E66.01 - Morbid (severe) obesity due to excess calories; Z68.42 - Body mass index (BMI) 45.0-49.9, adult Type of Wound Date of Service: 01/19/18 Chief Complaint: Diabetic toe and heel ulcers with necrosis of bone History of Wound: 57-year-old white male returns to clinic for follow-up of bilateral leg ulcers and right foot ulcers. He denies fever, chill, nausea, vomiting, loss of appetite. He underwent surgical debridement application of advanced wound care products, Amniofil and epi fix September 14, 2017. He is increased with elevation at home and his leg size is significantly reduced. Presents in a wheelchair today. He is amenable to undergo hyperbaric oxygen therapy if he is medically safe and able to set up transportation. He has been cleared from a medical standpoint and has undergone 2 sessions already. He denies odors or redness. He has demonstrated significant delays in healing. He asked if he can return to shrink wrap on the left lower extremity and complains of continued weeping to his amputation stump site. Progress of Wound: Improving - Physical Exam Vital Signs Temp Pulse Resp BP 97.2 F L 84 16 126/67 H 01/19/18 11:23 01/19/18 11:23 01/19/18 11:23 01/19/18 11:23 General: Alert, Oriented x3, Cooperative Extremities: No cyanosis, Capillary Refill Less than 3 Seconds, No Calf Tenderness - Negative Harry and Badillo right, Diminished Peripheral Pulses, Edema Skin: Ulcer/ Wound - No purulence, no erythema, streaking, odor, no infection bilateral lower extremity. There is atrophic and hairless skin bilateral. There is no deep tissue structures or eschar or necrosis noted bilateral. The left below-knee amputation stump site has continued edema with clear weeping drainage and skin peeling noted. There is no subcutaneous tissue exposed to the left lower extremity Wound Measurements and Assessment WC - Nurse 1 - General Ulcer Measurement Start: 01/05/18 10:04 Freq: Status: Active Protocol: Activity Type Activity Date Activity User E-Sign Co-Sign Detail Recorded Client Recorded Date Recorded By Document 01/19/18 11:23 [facility] [id number] 01/19/18 11:39 [facility] 01/19/18 11:23 Wound Center Nurse 1 [Ulcer Assessment] #13 R Med Heel -Combined with other wound No -Current Size (cm) - Length 3.8 -Current Size (cm) - Width 3.7 -Current Size (cm) - Depth 0.2 -Total Square Cm 14.06 -Photo Taken No -Epithelialization Small 1-33% -Tunneling No -Undermining/Tunneling No -Circular Undermining No -Exudate Amt Medium (34-66%) -Exudate Type Serosanguineous -Wound Margin Distinct, Outline Attached -Granulation Amt Medium (34-66%) -Granulation Quality [place] -Slough/Fibrin Yes -Necrosis Amt Medium (34-66%) -Necrotic Tissue Type Adherent Slough -Texture (Martha-wound Skin Appearance) Callus Scarring -Moisture (Martha-wound Skin Appearance Dry/Scaly ) -Color (Martha-wound Skin Appearance) Erythema -Temperature (Martha-wound Skin No Abnormality Appearance) (Pt Warm) -Tenderness on Palpation (Martha-wound No Skin Appearance) -Ulcer Cleansing Wound Cleanser -Foul Odor after Cleansing No -Anesthetic Used 4% Lidocaine Solution #21 Right Foot-Toes w/Metatarsal Head circumfrential -Combined with other wound No -Current Size (cm) - Length 10.5 -Current Size (cm) - Width 6 -Current Size (cm) - Depth 0.1 -Total Square Cm 63.0 -Photo Taken No -Epithelialization Small 1-33% -Tunneling No -Undermining/Tunneling No -Circular Undermining No -Exudate Amt Small (1-33%) -Exudate Type Serosanguineous -Wound Margin Distinct, Outline Attached -Granulation Amt Large (67-100%) -Granulation Quality [place] -Necrosis Amt Small (1-33%) -Necrotic Tissue Type Adherent Slough -Texture (Martha-wound Skin Appearance) Excoriation Scarring -Moisture (Martha-wound Skin Appearance Maceration ) -Color (Martha-wound Skin Appearance) Erythema Pal[place] -Temperature (Martha-wound Skin No Abnormality Appearance) (Pt Warm) -Tenderness on Palpation (Martha-wound No Skin Appearance) -Ulcer Cleansing Wound Cleanser -Foul Odor after Cleansing No -Anesthetic Used 4% Lidocaine Solution [Edema Assessment] -Lower Limb Edema Present Yes -Right Calf (cm) 36.5 -Right Ankle (cm) 29 -Left Calf (cm) 42.5 Musculoskeletal: No Tenderness to Palpation of Joints or Extremities, Muscle Wasting, - - Lymphedema bilateral lower extremities Neurological: - - Lack of epicritic sensation light touch bilateral Psych/Mental Status: Normal Affect, Appropriate Debridement Note Post-Debridement Measurements/Treatment WC - Nurse 2 - General Ulcer CM Notes Start: 01/05/18 10:04 Freq: Status: Active Protocol: Activity Type Activity Date Activity User E-Sign Co-Sign Detail Recorded Client Recorded Date Recorded By Document 01/05/18 10:28 [id number] 01/05/18 10:46 Document 01/12/18 10:39 [id number] 01/12/18 10:43 TM 01/05/18 01/12/18 10:28 10:39 Wound Center Nurse 2 18-right plantar foot -Time 10:31 -Correct Patient Yes -Correct Side, Site, Position Yes -Correct Procedure Yes -Procedure Performed Yes -Post Debridement Size (cm) - Length 0 -Post Debridement Size (cm) - Width 0 -Post Debridement Size (cm) - Depth 0 -Total Square Cm 0 -Wound/Ulcer Outcome Healed- Epithelialized -Ulcer Cleansing Rinsed/ Irrigated with Saline -Foul Odor after Cleansing No -Bioengineered Tissue No -Bleeding Controlled with NA -Treatment Response Procedure Tolerated Well #13 R Med Heel -Time 10:31 10:39 -Correct Patient Yes Yes -Correct Side, Site, Position Yes Yes -Correct Procedure Yes Yes -Procedure Performed Yes Yes -Type of Procedure Debridement Debridement -Clinical Debridement Subcutaneous Subcutaneous -Post Debridement Size (cm) - Length 5.9 3.4 -Post Debridement Size (cm) - Width 4.1 3.4 -Post Debridement Size (cm) - Depth 0.1 0.1 -Total Square Cm 24.19 11.56 -Wound/Ulcer Outcome Not Healed Not Healed -Ulcer Cleansing Rinsed/ Rinsed/ Irrigated with Irrigated with Saline Saline -Foul Odor after Cleansing No No -Bioengineered Tissue Yes Yes -Type of bioengineered Tissue EPIFIX EPIFIX -Expiration Date 10/05/22 10/18/22 -Product Lot Number [id number] -Percent Used 100 100 -Saline Lot Number [id number] -Topical Lidocaine (%) 4 4 -Bleeding Controlled with Pressure Pressure -Treatment Response Procedure Procedure Tolerated Well Tolerated Well #9 RIGHt norman -Time 10:29 -Correct Patient Yes -Correct Side, Site, Position Yes -Correct Procedure Yes -Procedure Performed Yes -Post Debridement Size (cm) - Length 0 -Post Debridement Size (cm) - Width 0 -Post Debridement Size (cm) - Depth 0 -Total Square Cm 0 -Wound/Ulcer Outcome Healed- Epithelialized -Ulcer Cleansing Rinsed/ Irrigated with Saline -Foul Odor after Cleansing No -Bioengineered Tissue No -Bleeding Controlled with NA -Treatment Response Procedure Tolerated Well #21 Right Foot-Toes w/Metatarsal Head circumfrential -Time 10:46 10:40 -Correct Patient Yes Yes -Correct Side, Site, Position Yes Yes -Correct Procedure Yes Yes -Procedure Performed Yes Yes -Type of Procedure Debridement Debridement -Clinical Debridement Subcutaneous Subcutaneous -Post Debridement Size (cm) - Length 4.7 8.3 -Post Debridement Size (cm) - Width 4.9 4.1 -Post Debridement Size (cm) - Depth 0.1 0.1 -Total Square Cm 23.03 34.03 -Wound/Ulcer Outcome Not Healed Not Healed -Ulcer Cleansing Rinsed/ Rinsed/ Irrigated with Irrigated with Saline Saline -Foul Odor after Cleansing No No -Bioengineered Tissue No No -Topical Lidocaine (%) 4 4 -Bleeding Controlled with Pressure Pressure -Treatment Response Procedure Procedure Tolerated Well Tolerated Well Pain Scale: 0-10 Numeric Is Patient Pain Free? Yes Yes Wound debrided: heel Laterality: Right Wound Grade/Stage: grade 3 Type of Debridement: Excisional debridement Anesthesia Used: 4% Lidocaine Solution Depth: in the subcutaneous layer Percentage of wound debrided: 100 Instrument Used: #15 blade Tissue Removed: fibrous, devitalized subcutaneous, biofilm, slough Severity: Fat Layer Exposed Amount of bleeding with debridement: Mild Bleeding Controlled with: Pressure Patient tolerated procedure well - Additional Wound Wound debrided: toe cluster Laterality: Right Wound Grade/Stage: grade 1 Type of Debridement: Excisional debridement Anesthesia Used: 4% Lidocaine Solution Depth: in the subcutaneous layer Percentage of wound debrided: 10 Instrument Used: #15 blade Tissue Removed: fibrous, devitalized subcutaneous, biofilm, slough Severity: Fat Layer Exposed Amount of bleeding with debridement: Mild Bleeding Controlled with: Pressure Patient tolerated procedure: Patient tolerated procedure well Assessment/Plan Active Problems Ulcer of left lower extremity, limited to breakdown of skin (Chronic) Ulcer of right foot with fat layer exposed (Chronic) Type 2 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with diabetic polyneuropathy (Chronic) Malnutrition (Chronic) Lymphedema (Chronic) Edema of both legs (Chronic) Morbid obesity with BMI of 45.0-49.9, adult (Chronic) Assessment: ulcer right forefoot - returned (digits 2). right heel ulcer muscle involved and exposed fascia without infection noted today (previous grade 3); s/p surgical debridement and application of advance wound care products (amniofil and epicord). Left below-knee amputation sub-hemorrhagic tissue with continued weeping noted; no infection. Lymphedema. Ulcer left stump site with skin layer exposed, no infection. Chronic lower extremity edema and venous insufficiency. Morbid obesity. Type 2 diabetes uncontrolled with peripheral neuropathy. CKD. Hypertension. Left below-knee amputation. Malnutrition. Delayed wound healing. Nonadherence to treatment plan Plan: I reviewed and discussed his case debridement done as documented above in the clinical panel, procedure was well tolerated. Epifix was applied to the right heel after verbal consent was obtained. No product was wasted in addition was overlap to allow improved incorporation. This was applied according to standard protocol. He tolerated this well. A secondary dressing was applied. leave in place for 1 week. Continue compression and elevate lower extreity when sitting and in bed. Optimal blood sugar contol. Continue protein suppplements and increased protein in diet. Per chart review it appears he has been cleared from medical standpoint to start hyperbaric oxygen therapy and I recommend he move forward with this to optimize his healing. He has started the session. If his left limb continues to have no weeping next week the plan is to progress him into his strength wrap with the intention to progress to his leg prosthetic. To improve compliance with compression pumps. I advised him to at least get a second session even if it is reduced in time each day. He will try this. Follow up in 1 week with at the wound healing center or call sooner if he has any questions or concerns.
[2018-01-21 10:16] LABS: Bedside Glucose 173 mg/dL (70-110)
[2018-01-21 10:33] VITALS: BP 113/56; BP 127/54; PULSE 83; PULSE 84; RESP 16; TEMP 36.1; TEMP 36.3
[2018-01-21 12:26] LABS: Bedside Glucose 119 mg/dL (70-110)
[2018-01-24 10:19] VITALS: BP 145/73; BP 150/68; PULSE 79; PULSE 84; RESP 16; TEMP 35.9; TEMP 36.3
[2018-01-24 10:20] LABS: Bedside Glucose 168 mg/dL (70-110)
[2018-01-24 12:11] LABS: Bedside Glucose 112 mg/dL (70-110)
--- NOTE | 2018-01-24 22:58 | HBO.PN.PCM_ITS ---
History of Present Illness Date of Service: 01/24/18 Presenting Chief Complaint: 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 DEL BARRIOS is a 57 year old currently undergoing hyperbaric oxygen therapy for right diabetic foot ulcer with necrosis of bone, Brooks Grade 3. Progress: This is his 2nd treatment course and the patient appeared to tolerate hyperbaric oxygen therapy session #4 without difficulties. Tolerance of hyperbaric oxygen therapy: Hyperbaric oxygen therapy was administered as per the facility's protocol. The patient tolerated hyperbaric oxygen therapy well, without complaints or complications. Upon emergence from the hyperbaric chamber, the patient's vital signs remained stable. He was discharged in good condition. His blood glucose was 154 before the treatment and 112 after the treatment. 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) Delayed wound healing (Chronic) Malnutrition (Chronic) Venous insufficiency (Chronic) Lymphedema (Chronic) Edema of both legs (Chronic) GERD (gastroesophageal reflux disease) (Chronic) Hypertension (Chronic) Hyperlipemia (Chronic) Morbid obesity with BMI of 45.0-49.9, adult (Chronic) Hyperlipidemia associated with type 2 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(Chronic) 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 Allergies/Adverse Reactions: Allergies bee venom protein (honey bee) Allergy (Verified 12/13/17 09:30) Swelling metronidazole [From Flagyl] Allergy (Verified 12/13/17 09:30) Itching Home Medications: Ambulatory Orders Medication Instructions Recorded Atorvastatin Calcium [Lipitor] 10 mg PO QHS 01/08/17 Brimonidine Tartrate 0.2% 1 drop EACH EYE BID 01/08/17 [Brimonidine 0.2% 5Ml Bottle] Ergocalciferol [Vitamin D] 50,000 unit PO FR 01/08/17 Gabapentin [Neurontin] 1,600 mg PO QHS 01/08/17 Gabapentin [Neurontin] 600 mg PO DAILY 01/08/17 Insulin U-500 [Humulin R U-500 105 units SC DINNER 01/08/17 ([facility])] Insulin U-500 [Humulin R U-500 105 units SC LUNCH 01/08/17 ([facility])] Insulin U-500 [Humulin R U-500 160 units SC BREAKFAST 01/08/17 ([facility])] Latanoprost 0.005% [Xalatan 1 drop EACH EYE QHS 01/08/17 Opthalmic] Losartan Potassium [Cozaar] 50 mg PO DAILY 01/08/17 Nebivolol HCl [Bystolic (Beta 10 mg PO DAILY 01/08/17 Akira)] Omeprazole [Prilosec] 40 mg PO DAILY 01/08/17 Acetaminophen [Tylenol Tablet] 650 mg PO Q6H PRN PRN tablet 09/07/17 Clopidogrel Bisulfate [Plavix] 75 mg PO DAILY 09/07/17 Menthol/Lanolin/Calamine/Znox 1 applic TOPICAL 0600,2200 tube 09/21/17 [Calmoseptine Ointment] Nutritional Supplement [Madhu - 1 packet PO BIDCM #60 packet 09/21/17 [place] FLAVOR] Nystatin Powder [Mycostatin Powder] 1 applic TOPICAL 0600,2200 bottle 09/21/17 Ferrous Sulfate [Iron] 325 mg PO BID 10/14/17 Clindamycin HCl 300 mg PO [id number] #40 cap 12/13/17 Maternal Family History: Diabetes Paternal Family History: Hypertension Sibling Family History: Diabetes Smoking Status: Former smoker Physical Exam Vital Signs Temp Pulse Resp BP 97.3 F L 84 16 145/73 H 01/24/18 10:19 01/24/18 10:19 01/24/18 10:19 01/24/18 10:19 Assessment/Plan Active Problems Ulcer of right lower extremity with fat layer exposed (Chronic) Ulcer of left lower extremity, limited to breakdown of skin (Chronic) Complete below knee amputation of left lower extremity (Chronic) Morbid obesity (Chronic) Chronic kidney disease (CKD) (Chronic) Type 2 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with diabetic polyneuropathy (Chronic) Malnutrition (Chronic) Lymphedema (Chronic) Edema of both legs (Chronic)
[2018-01-25 09:46] LABS: Bedside Glucose 168 mg/dL (70-110)
[2018-01-25 09:49] VITALS: BP 142/72; BP 152/74; PULSE 83; PULSE 87; RESP 16; RESP 18; TEMP 36.1; TEMP 36.2
[2018-01-25 11:56] LABS: Bedside Glucose 144 mg/dL (70-110)
--- NOTE | 2018-01-25 12:55 | PCM.HBO.PN ---
History of Present Illness Date of Service: 01/25/18 Presenting Chief Complaint: Diabetic toe and heel ulcers with necrosis of bone, Brooks Grade 3 DEL BARRIOS is a 57 year old currently undergoing hyperbaric oxygen therapy for open diabetic ulcer of the lower extremity with necrosis of the bone. Progress: The patient appeared to tolerate hyperbaric oxygen therapy session #5 without difficulties. Tolerance of hyperbaric oxygen therapy: Hyperbaric oxygen therapy was administered as per the facility's protocol. The patient tolerated hyperbaric oxygen therapy well, without complaints or complications. Upon emergence from the hyperbaric chamber, the patient's vital signs remained stable. He was discharged in good condition. 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) Delayed wound healing (Chronic) Malnutrition (Chronic) Venous insufficiency (Chronic) Lymphedema (Chronic) Edema of both legs (Chronic) GERD (gastroesophageal reflux disease) (Chronic) Hypertension (Chronic) Hyperlipemia (Chronic) Morbid obesity with BMI of 45.0-49.9, adult (Chronic) Hyperlipidemia associated with type 2 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(Chronic) 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 Allergies/Adverse Reactions: Allergies bee venom protein (honey bee) Allergy (Verified 12/13/17 09:30) Swelling metronidazole [From Flagyl] Allergy (Verified 12/13/17 09:30) Itching Home Medications: Ambulatory Orders Medication Instructions Recorded Atorvastatin Calcium [Lipitor] 10 mg PO QHS 01/08/17 Brimonidine Tartrate 0.2% 1 drop EACH EYE BID 01/08/17 [Brimonidine 0.2% 5Ml Bottle] Ergocalciferol [Vitamin D] 50,000 unit PO FR 01/08/17 Gabapentin [Neurontin] 1,600 mg PO QHS 01/08/17 Gabapentin [Neurontin] 600 mg PO DAILY 01/08/17 Insulin U-500 [Humulin R U-500 105 units SC DINNER 01/08/17 ([facility])] Insulin U-500 [Humulin R U-500 105 units SC LUNCH 01/08/17 ([facility])] Insulin U-500 [Humulin R U-500 160 units SC BREAKFAST 01/08/17 ([facility])] Latanoprost 0.005% [Xalatan 1 drop EACH EYE QHS 01/08/17 Opthalmic] Losartan Potassium [Cozaar] 50 mg PO DAILY 01/08/17 Nebivolol HCl [Bystolic (Beta 10 mg PO DAILY 01/08/17 Akira)] Omeprazole [Prilosec] 40 mg PO DAILY 01/08/17 Acetaminophen [Tylenol Tablet] 650 mg PO Q6H PRN PRN tablet 09/07/17 Clopidogrel Bisulfate [Plavix] 75 mg PO DAILY 09/07/17 Menthol/Lanolin/Calamine/Znox 1 applic TOPICAL 0600,2200 tube 09/21/17 [Calmoseptine Ointment] Nutritional Supplement [Madhu - 1 packet PO BIDCM #60 packet 09/21/17 OR[facility] FLAVOR] Nystatin Powder [Mycostatin Powder] 1 applic TOPICAL 0600,2200 bottle 09/21/17 Ferrous Sulfate [Iron] 325 mg PO BID 10/14/17 Clindamycin HCl 300 mg PO [id number] #40 cap 12/13/17 Maternal Family History: Diabetes Paternal Family History: Hypertension Sibling Family History: Diabetes Smoking Status: Former smoker Physical Exam Vital Signs Temp Pulse Resp BP 96.9 F L 87 18 142/72 H 01/25/18 09:49 01/25/18 09:49 01/25/18 09:49 01/25/18 09:49 General: Alert, Oriented x3, Cooperative, No apparent distress, Well developed, Well nourished HEENT: Atraumatic, PERRLA, EOMI, Normocephalic Lungs: Normal air movement Psych/Mental Status: Normal Affect, Appropriate, Alert and oriented to time, place, person, mood and affect Assessment/Plan Active Problems Ulcer of left lower extremity, limited to breakdown of skin (Chronic) Ulcer of right foot with fat layer exposed (Chronic) Type 2 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with diabetic polyneuropathy (Chronic) Malnutrition (Chronic) Lymphedema (Chronic) Edema of both legs (Chronic) Morbid obesity with BMI of 45.0-49.9, adult (Chronic) The patient appears to be tolerating hyperbaric oxygen therapy well, which will continue as per the patient's medical plan.
[2018-01-26 09:51] VITALS: BP 132/54; RESP 16; TEMP 35.8
--- NOTE | 2018-01-26 10:48 | PCM.WC.PN ---
(1) Ulcer of right foot with fat layer exposed Status: Chronic Current Visit: Yes Code(s): L97.512 - Non-pressure chronic ulcer of other part of right foot with fat layer exposed (2) Ulcer of left lower extremity, limited to breakdown of skin Status: Chronic Current Visit: Yes Code(s): L97.921 - Non-pressure chronic ulcer of unspecified part of left lower leg limited to breakdown of skin (3) Type 2 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with diabetic polyneuropathy Status: Chronic Current Visit: Yes Code(s): E11.42 - Type 2 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with diabetic polyneuropathy (4) Malnutrition Status: Chronic Current Visit: Yes Code(s): E46 - Unspecified protein-calorie malnutrition (5) Lymphedema Status: Chronic Current Visit: Yes Code(s): I89.0 - Lymphedema, not elsewhere classified (6) Edema of both legs Status: Chronic Current Visit: Yes Code(s): R60.0 - Localized edema (7) Morbid obesity with BMI of 45.0-49.9, adult Status: Chronic Current Visit: Yes Code(s): E66.01 - Morbid (severe) obesity due to excess calories; Z68.42 - Body mass index (BMI) 45.0-49.9, adult Type of Wound Date of Service: 01/26/18 Chief Complaint: 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 He denies fever, chill, nausea, vomiting, loss of appetite. He underwent surgical debridement application of advanced wound care products, Amniofil and epi fix September 14, 2017. She has also been having serial applications of epi fix in the wound healing center. He is increased with elevation at home and his leg size is significantly reduced. He relates he does want full compression pump session daily and does a second session of approximately 15 minutes. Presents in a wheelchair today. He is amenable to undergo hyperbaric oxygen therapy and has been having some scheduling conflicts; he is amenable to work with the nursing staff to see if there are additional openings available. He denies odors or redness. He has demonstrated significant delays in healing. He asked if he can return to shrink wrap on the left lower extremity and complains of continued weeping to his amputation stump site. Progress of Wound: Improving - Physical Exam Vital Signs Temp Pulse Resp BP 96.4 F L 87 16 132/54 H 01/26/18 09:51 01/25/18 09:49 01/26/18 09:51 01/26/18 09:51 General: Alert, Oriented x3, Cooperative Extremities: Capillary Refill Less than 3 Seconds, Diminished Peripheral Pulses, Edema - Decreased bilateral lower extremities Skin: Ulcer/ Wound - No purulence, no erythema, streaking, odor, no infection bilateral. There is only sub-hemorrhagic tissue exposed to the left below-knee amputation stump site. Peripheral epithelialization is noted to the right heel site and there is no longer any exposed deep tissue. The peripheral skin is atrophic and hairless Wound Measurements and Assessment WC - Nurse 1 - General Ulcer Measurement Start: 01/05/18 10:04 Freq: Status: Active Protocol: Activity Type Activity Date Activity User E-Sign Co-Sign Detail Recorded Client Recorded Date Recorded By Document 01/26/18 09:51 JEANETH [id number] 01/26/18 09:58 TN 01/26/18 09:51 Wound Center Nurse 1 [Ulcer Assessment] #13 R Med Heel -Combined with other wound No -Current Size (cm) - Length 4 -Current Size (cm) - Width 4.5 -Current Size (cm) - Depth 0.2 -Total Square Cm 18.0 -Photo Taken No -Epithelialization None Present -Tunneling No -Undermining/Tunneling No -Circular Undermining No -Classification - Thickness Full Thickness without Exposed Support Structure -Change in Wound Grade/Stage No Query Text:If change please identify the Stage/Grade in the comment (ie. S2 G3) -Exudate Amt Small (1-33%) -Exudate Type Serous -Wound Margin Flat & Intact -Granulation Amt Small (1-33%) -Granulation Quality Pale -Slough/Fibrin Yes -Necrosis Amt Medium (34-66%) -Necrotic Tissue Type Adherent Slough -Structure Exposed None/Limited to Skin Breakdown -Texture (Martha-wound Skin Appearance) Assessed -Moisture (Martha-wound Skin Appearance Assessed ) Maceration Dry/Scaly -Color (Martha-wound Skin Appearance) Assessed Palor -Temperature (Martha-wound Skin No Abnormality Appearance) (Pt Warm) -Tenderness on Palpation (Martha-wound No Skin Appearance) -Ulcer Cleansing Wound Cleanser -Foul Odor after Cleansing No -Anesthetic Used 4% Lidocaine Solution #21 Right Foot-Toes w/Metatarsal Head circumfrential -Combined with other wound No -Current Size (cm) - Length 11.7 -Current Size (cm) - Width 7 -Current Size (cm) - Depth 0.1 -Total Square Cm 81.9 -Photo Taken No -Epithelialization None Present -Tunneling No -Undermining/Tunneling No -Circular Undermining No -Classification - Thickness Full Thickness without Exposed Support Structure -Change in Wound Grade/Stage No Query Text:If change please identify the Stage/Grade in the comment (ie. S2 G3) -Exudate Amt Small (1-33%) -Exudate Type Sanguineous -Wound Margin Distinct, Outline Attached -Granulation Amt Small (1-33%) -Granulation Quality Red -Slough/Fibrin Yes -Necrosis Amt Medium (34-66%) -Necrotic Tissue Type Adherent Slough -Structure Exposed None/Limited to Skin Breakdown -Texture (Martha-wound Skin Appearance) Assessed Localized Edema -Moisture (Martha-wound Skin Appearance Assessed ) Maceration Dry/Scaly -Color (Martha-wound Skin Appearance) Assessed Erythema -Temperature (Martha-wound Skin No Abnormality Appearance) (Pt Warm) -Tenderness on Palpation (Martha-wound No Skin Appearance) -Ulcer Cleansing Wound Cleanser -Foul Odor after Cleansing No -Anesthetic Used 4% Lidocaine Solution [Edema Assessment] -Lower Limb Edema Present No -Right Calf (cm) 37.5 -Right Ankle (cm) 29.2 -Left Calf (cm) 43 WC - Nurse 2 - General Ulcer CM Notes Start: 01/05/18 10:04 Freq: Status: Active Protocol: Activity Type Activity Date Activity User E-Sign Co-Sign Detail Recorded Client Recorded Date Recorded By Document 01/26/18 10:14 ANUP [id number] 01/26/18 10:17 ANUP 01/26/18 10:14 Wound Center Nurse 2 [Procedure/Treatment] #13 R Med Heel -Time 10:15 -Correct Patient Yes -Correct Side, Site, Position Yes -Correct Procedure Yes -Procedure Performed Yes -Type of Procedure Debridement -Clinical Debridement Subcutaneous -Post Debridement Size (cm) - Length 4 -Post Debridement Size (cm) - Width 4.6 -Post Debridement Size (cm) - Depth 0.2 -Total Square Cm 18.4 -Wound/Ulcer Outcome Not Healed -Ulcer Cleansing Rinsed/ Irrigated with Saline -Foul Odor after Cleansing No -Bioengineered Tissue Yes -Type of bioengineered Tissue EPIFIX -Expiration Date 11/05/22 -Product Lot Number [id number] -Percent Used 100 -Saline Lot Number [id number] -Bleeding Controlled with Pressure -Treatment Response Procedure Tolerated Well #21 Right Foot-Toes w/Metatarsal Head circumfrential -Time 10:15 -Correct Patient Yes -Correct Side, Site, Position Yes -Correct Procedure Yes -Procedure Performed Yes -Type of Procedure Debridement -Clinical Debridement Subcutaneous -Post Debridement Size (cm) - Length 11.8 -Post Debridement Size (cm) - Width 7 -Post Debridement Size (cm) - Depth 0.1 -Total Square Cm 82.6 -Wound/Ulcer Outcome Not Healed -Ulcer Cleansing Rinsed/ Irrigated with Saline -Foul Odor after Cleansing No -Bioengineered Tissue Yes -Type of bioengineered Tissue EPIFIX -Expiration Date 11/05/22 -Product Lot Number [id number] -Percent Used 100 -Saline Lot Number [id number] -Bleeding Controlled with Pressure -Treatment Response Procedure Tolerated Well [See Physician Procedure note for Specifics] Pain Scale: 0-10 Numeric [Pain] -Is Patient Pain Free? Yes Musculoskeletal: No Tenderness to Palpation of Joints or Extremities, Tenderness, - - Left below-knee amputation. Lymphedema continued bilateral lower Neurological: - - Lack of epicritic sensation to light touch bilateral lower extremities Psych/Mental Status: Normal Affect, Appropriate Debridement Note Post-Debridement Measurements/Treatment WC - Nurse 2 - General Ulcer CM Notes Start: 01/05/18 10:04 Freq: Status: Active Protocol: Activity Type Activity Date Activity User E-Sign Co-Sign Detail Recorded Client Recorded Date Recorded By Document 01/05/18 10:28 [id number] 01/05/18 10:46 TM Document 01/12/18 10:39 TM [id number] 01/12/18 10:43 TM Document 01/19/18 12:23 JF [id number] 01/19/18 12:25 JF Document 01/26/18 10:14 JF [id number] 01/26/18 10:17 01/05/18 01/12/18 01/19/18 10:28 10:39 12:23 Wound Center Nurse 2 18-right plantar foot -Time 10:31 -Correct Patient Yes -Correct Side, Site, Position Yes -Correct Procedure Yes -Procedure Performed Yes -Post Debridement Size (cm) - Length 0 -Post Debridement Size (cm) - Width 0 -Post Debridement Size (cm) - Depth 0 -Total Square Cm 0 -Wound/Ulcer Outcome Healed- Epithelialized -Ulcer Cleansing Rinsed/ Irrigated with Saline -Foul Odor after Cleansing No -Bioengineered Tissue No -Bleeding Controlled with NA -Treatment Response Procedure Tolerated Well #13 R Med Heel -Time 10:31 10:39 12:23 -Correct Patient Yes Yes Yes -Correct Side, Site, Position Yes Yes Yes -Correct Procedure Yes Yes Yes -Procedure Performed Yes Yes Yes -Type of Procedure Debridement Debridement Debridement -Clinical Debridement Subcutaneous Subcutaneous Subcutaneous -Post Debridement Size (cm) - Length 5.9 3.4 3.8 -Post Debridement Size (cm) - Width 4.1 3.4 3.8 -Post Debridement Size (cm) - Depth 0.1 0.1 0.2 -Total Square Cm 24.19 11.56 14.44 -Wound/Ulcer Outcome Not Healed Not Healed Not Healed -Ulcer Cleansing Rinsed/ Rinsed/ Rinsed/ Irrigated with Irrigated with Irrigated with Saline Saline Saline -Foul Odor after Cleansing No No No -Bioengineered Tissue Yes Yes Yes -Type of bioengineered Tissue EPIFIX EPIFIX EPIFIX -Expiration Date 10/05/22 10/18/22 11/05/22 -Product Lot Number [id number] -Percent Used 100 100 100 -Saline Lot Number [id number] -Topical Lidocaine (%) 4 4 -Bleeding Controlled with Pressure Pressure Pressure -Treatment Response Procedure Procedure Procedure Tolerated Well Tolerated Well Tolerated Well #9 RIGHt norman -Time 10:29 -Correct Patient Yes -Correct Side, Site, Position Yes -Correct Procedure Yes -Procedure Performed Yes -Post Debridement Size (cm) - Length 0 -Post Debridement Size (cm) - Width 0 -Post Debridement Size (cm) - Depth 0 -Total Square Cm 0 -Wound/Ulcer Outcome Healed- Epithelialized -Ulcer Cleansing Rinsed/ Irrigated with Saline -Foul Odor after Cleansing No -Bioengineered Tissue No -Bleeding Controlled with NA -Treatment Response Procedure Tolerated Well #21 Right Foot-Toes w/Metatarsal Head circumfrential -Time 10:46 10:40 12:24 -Correct Patient Yes Yes Yes -Correct Side, Site, Position Yes Yes Yes -Correct Procedure Yes Yes Yes -Procedure Performed Yes Yes Yes -Type of Procedure Debridement Debridement Debridement -Clinical Debridement Subcutaneous Subcutaneous Subcutaneous -Post Debridement Size (cm) - Length 4.7 8.3 10.5 -Post Debridement Size (cm) - Width 4.9 4.1 6 -Post Debridement Size (cm) - Depth 0.1 0.1 0.1 -Total Square Cm 23.03 34.03 63.0 -Wound/Ulcer Outcome Not Healed Not Healed Not Healed -Ulcer Cleansing Rinsed/ Rinsed/ Rinsed/ Irrigated with Irrigated with Irrigated with Saline Saline Saline -Foul Odor after Cleansing No No No -Bioengineered Tissue No No Yes -Type of bioengineered Tissue EPIFIX -Expiration Date 11/05/22 -Product Lot Number [id number] -Percent Used 100 -Saline Lot Number [id number] -Topical Lidocaine (%) 4 4 -Bleeding Controlled with Pressure Pressure Pressure -Treatment Response Procedure Procedure Procedure Tolerated Well Tolerated Well Tolerated Well Pain Scale: 0-10 Numeric Is Patient Pain Free? Yes Yes Yes 01/26/18 10:14 Wound Center Nurse 2 18-right plantar foot -Time -Correct Patient -Correct Side, Site, Position -Correct Procedure -Procedure Performed -Post Debridement Size (cm) - Length -Post Debridement Size (cm) - Width -Post Debridement Size (cm) - Depth -Total Square Cm -Wound/Ulcer Outcome -Ulcer Cleansing -Foul Odor after Cleansing -Bioengineered Tissue -Bleeding Controlled with -Treatment Response #13 R Med Heel -Time 10:15 -Correct Patient Yes -Correct Side, Site, Position Yes -Correct Procedure Yes -Procedure Performed Yes -Type of Procedure Debridement -Clinical Debridement Subcutaneous -Post Debridement Size (cm) - Length 4 -Post Debridement Size (cm) - Width 4.6 -Post Debridement Size (cm) - Depth 0.2 -Total Square Cm 18.4 -Wound/Ulcer Outcome Not Healed -Ulcer Cleansing Rinsed/ Irrigated with Saline -Foul Odor after Cleansing No -Bioengineered Tissue Yes -Type of bioengineered Tissue EPIFIX -Expiration Date 11/05/22 -Product Lot Number [id number] -Percent Used 100 -Saline Lot Number [id number] -Topical Lidocaine (%) -Bleeding Controlled with Pressure -Treatment Response Procedure Tolerated Well #9 RIGHt norman -Time -Correct Patient -Correct Side, Site, Position -Correct Procedure -Procedure Performed -Post Debridement Size (cm) - Length -Post Debridement Size (cm) - Width -Post Debridement Size (cm) - Depth -Total Square Cm -Wound/Ulcer Outcome -Ulcer Cleansing -Foul Odor after Cleansing -Bioengineered Tissue -Bleeding Controlled with -Treatment Response #21 Right Foot-Toes w/Metatarsal Head circumfrential -Time 10:15 -Correct Patient Yes -Correct Side, Site, Position Yes -Correct Procedure Yes -Procedure Performed Yes -Type of Procedure Debridement -Clinical Debridement Subcutaneous -Post Debridement Size (cm) - Length 11.8 -Post Debridement Size (cm) - Width 7 -Post Debridement Size (cm) - Depth 0.1 -Total Square Cm 82.6 -Wound/Ulcer Outcome Not Healed -Ulcer Cleansing Rinsed/ Irrigated with Saline -Foul Odor after Cleansing No -Bioengineered Tissue Yes -Type of bioengineered Tissue EPIFIX -Expiration Date 11/05/22 -Product Lot Number [id number] -Percent Used 100 -Saline Lot Number [id number] -Topical Lidocaine (%) -Bleeding Controlled with Pressure -Treatment Response Procedure Tolerated Well Pain Scale: 0-10 Numeric Is Patient Pain Free? Yes Wound debrided: heel Laterality: Right Wound Grade/Stage: grade 3 Type of Debridement: Excisional debridement Anesthesia Used: 5% Lidocaine Gel Depth: in the subcutaneous layer Percentage of wound debrided: 100 Instrument Used: #15 blade Tissue Removed: fibrous, devitalized subcutaneous, biofilm, slough Severity: Fat Layer Exposed Amount of bleeding with debridement: Mild Bleeding Controlled with: Pressure Patient tolerated procedure well - Additional Wound Wound debrided: toe Laterality: Right Wound Grade/Stage: grade 1 Type of Debridement: Excisional debridement Anesthesia Used: 5% Lidocaine Gel Depth: in the subcutaneous layer Percentage of wound debrided: 100 Instrument Used: #15 blade Tissue Removed: fibrous, devitalized subcutaneous, biofilm, slough Severity: Fat Layer Exposed Amount of bleeding with debridement: Mild Bleeding Controlled with: Pressure Patient tolerated procedure: Patient tolerated procedure well Assessment/Plan Active Problems Ulcer of left lower extremity, limited to breakdown of skin (Chronic) Ulcer of right foot with fat layer exposed (Chronic) Type 2 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with diabetic polyneuropathy (Chronic) Malnutrition (Chronic) Lymphedema (Chronic) Edema of both legs (Chronic) Morbid obesity with BMI of 45.0-49.9, adult (Chronic) Assessment: ulcer right forefoot - returned (digits 2). right heel ulcer muscle involved and exposed fascia without infection noted today (previous grade 3); s/p surgical debridement and application of advance wound care products (amniofil and epicord). Left below-knee amputation sub-hemorrhagic tissue with continued weeping noted; no infection. Lymphedema. Ulcer left stump site with skin layer exposed, no infection. Chronic lower extremity edema and venous insufficiency. Morbid obesity. Type 2 diabetes uncontrolled with peripheral neuropathy. CKD. Hypertension. Left below-knee amputation. Malnutrition. Delayed wound healing. Nonadherence to treatment plan Plan: I reviewed and discussed his case debridement done as documented above in the clinical panel, procedure was well tolerated. Epifix was applied to the right heel after verbal consent was obtained. No product was wasted in addition was overlap to allow improved incorporation. This was applied according to standard protocol. He tolerated this well. A secondary dressing was applied. leave in place for 1 week. Continue compression and elevate lower extreity when sitting and in bed. Optimal blood sugar contol. Continue protein suppplements and increased protein in diet. To continue hyperbaric oxygen therapy as scheduled on complaint basis. If his left limb continues to have no weeping next week the plan is to progress him into his strength wrap with the intention to progress to his leg prosthetic. To improve compliance with compression pumps. I advised him to at least get a second session even if it is reduced in time each day. He reports he is doing this and I recommend he continues. Follow up in 1 week with at the wound healing center or call sooner if he has any questions or concerns.
[2018-01-27 10:19] VITALS: BP 145/71; BP 148/79; PULSE 76; PULSE 82; RESP 16; RESP 18; TEMP 35.9; TEMP 36
[2018-01-27 10:22] LABS: Bedside Glucose 131 mg/dL (70-110)
--- NOTE | 2018-01-27 11:45 | PCM.HBO.PN ---
History of Present Illness Date of Service: 01/27/18 Presenting Chief Complaint: Diabetic toe and heel ulcers with necrosis of bone, Brooks Grade 3 DEL BARRIOS is a 57 year old currently undergoing hyperbaric oxygen therapy for open diabetic ulcer of the lower extremity with necrosis of the bone. Progress: The patient appeared to tolerate hyperbaric oxygen therapy session #6 without difficulties. Tolerance of hyperbaric oxygen therapy: Hyperbaric oxygen therapy was administered as per the facility's protocol. The patient tolerated hyperbaric oxygen therapy well, without complaints or complications. Upon emergence from the hyperbaric chamber, the patient's vital signs remained stable. He was discharged in good condition. 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) Delayed wound healing (Chronic) Malnutrition (Chronic) Venous insufficiency (Chronic) Lymphedema (Chronic) Edema of both legs (Chronic) GERD (gastroesophageal reflux disease) (Chronic) Hypertension (Chronic) Hyperlipemia (Chronic) Morbid obesity with BMI of 45.0-49.9, adult (Chronic) Hyperlipidemia associated with type 2 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(Chronic) 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 Allergies/Adverse Reactions: Allergies bee venom protein (honey bee) Allergy (Verified 12/13/17 09:30) Swelling metronidazole [From Flagyl] Allergy (Verified 12/13/17 09:30) Itching Home Medications: Ambulatory Orders Medication Instructions Recorded Atorvastatin Calcium [Lipitor] 10 mg PO QHS 01/08/17 Brimonidine Tartrate 0.2% 1 drop EACH EYE BID 01/08/17 [Brimonidine 0.2% 5Ml Bottle] Ergocalciferol [Vitamin D] 50,000 unit PO FR 01/08/17 Gabapentin [Neurontin] 1,600 mg PO QHS 01/08/17 Gabapentin [Neurontin] 600 mg PO DAILY 01/08/17 Insulin U-500 [Humulin R U-500 105 units SC DINNER 01/08/17 ([facility])] Insulin U-500 [Humulin R U-500 105 units SC LUNCH 01/08/17 ([facility])] Insulin U-500 [Humulin R U-500 160 units SC BREAKFAST 01/08/17 ([facility])] Latanoprost 0.005% [Xalatan 1 drop EACH EYE QHS 01/08/17 Opthalmic] Losartan Potassium [Cozaar] 50 mg PO DAILY 01/08/17 Nebivolol HCl [Bystolic (Beta 10 mg PO DAILY 01/08/17 Akira)] Omeprazole [Prilosec] 40 mg PO DAILY 01/08/17 Acetaminophen [Tylenol Tablet] 650 mg PO Q6H PRN PRN tablet 09/07/17 Clopidogrel Bisulfate [Plavix] 75 mg PO DAILY 09/07/17 Menthol/Lanolin/Calamine/Znox 1 applic TOPICAL 0600,2200 tube 09/21/17 [Calmoseptine Ointment] Nutritional Supplement [Madhu - 1 packet PO BIDCM #60 packet 09/21/17 ORANGE FLAVOR] Nystatin Powder [Mycostatin Powder] 1 applic TOPICAL 0600,2200 bottle 09/21/17 Ferrous Sulfate [Iron] 325 mg PO BID 10/14/17 Clindamycin HCl 300 mg PO [id number] #40 cap 12/13/17 Maternal Family History: Diabetes Paternal Family History: Hypertension Sibling Family History: Diabetes Smoking Status: Former smoker Physical Exam Vital Signs Temp Pulse Resp BP 96.6 F L 82 16 145/71 H 01/27/18 10:19 01/27/18 10:19 01/27/18 10:19 01/27/18 10:19 General: Alert, Oriented x3, Cooperative, No apparent distress HEENT: Atraumatic Lungs: Normal air movement Psych/Mental Status: Normal Affect Assessment/Plan Active Problems Ulcer of left lower extremity, limited to breakdown of skin (Chronic) Ulcer of right foot with fat layer exposed (Chronic) Type 2 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with diabetic polyneuropathy (Chronic) Malnutrition (Chronic) Lymphedema (Chronic) Edema of both legs (Chronic) Morbid obesity with BMI of 45.0-49.9, adult (Chronic) The patient appears to be tolerating hyperbaric oxygen therapy well, which will continue as per the patient's medical plan.
[2018-01-27 12:21] LABS: Bedside Glucose 120 mg/dL (70-110)
[2018-02-01 08:35] LABS: Bedside Glucose 230 mg/dL (70-110)
[2018-02-01 09:55] LABS: Bedside Glucose 198 mg/dL (70-110)
[2018-02-01 11:06] VITALS: BP 119/62; BP 145/87; PULSE 88; PULSE 91; RESP 18; TEMP 36.4; TEMP 36.6
--- NOTE | 2018-02-01 13:39 | PCM.HBO.PN ---
History of Present Illness Date of Service: 02/01/18 Presenting Chief Complaint: Diabetic toe and heel ulcers with necrosis of bone, Brooks Grade 3 DEL [place]OS is a 57 year old currently undergoing hyperbaric oxygen therapy for open diabetic ulcer of the lower extremity with necrosis of the bone. Progress: The patient appeared to tolerate hyperbaric oxygen therapy session #7 without difficulties. Tolerance of hyperbaric oxygen therapy: Hyperbaric oxygen therapy was administered as per the facility's protocol. The patient tolerated hyperbaric oxygen therapy well, without complaints or complications. Upon emergence from the hyperbaric chamber, the patient's vital signs remained stable. He was discharged in good condition. 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) Delayed wound healing (Chronic) Malnutrition (Chronic) Venous insufficiency (Chronic) Lymphedema (Chronic) Edema of both legs (Chronic) GERD (gastroesophageal reflux disease) (Chronic) Hypertension (Chronic) Hyperlipemia (Chronic) Morbid obesity with BMI of 45.0-49.9, adult (Chronic) Hyperlipidemia associated with type 2 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(Chronic) 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 Allergies/Adverse Reactions: Allergies bee venom protein (honey bee) Allergy (Verified 12/13/17 09:30) Swelling metronidazole [From Flagyl] Allergy (Verified 12/13/17 09:30) Itching Home Medications: Ambulatory Orders Medication Instructions Recorded Atorvastatin Calcium [Lipitor] 10 mg PO QHS 01/08/17 Brimonidine Tartrate 0.2% 1 drop EACH EYE BID 01/08/17 [Brimonidine 0.2% 5Ml Bottle] Ergocalciferol [Vitamin D] 50,000 unit PO FR 01/08/17 Gabapentin [Neurontin] 1,600 mg PO QHS 01/08/17 Gabapentin [Neurontin] 600 mg PO DAILY 01/08/17 Insulin U-500 [Humulin R U-500 105 units SC DINNER 01/08/17 ([facility])] Insulin U-500 [Humulin R U-500 105 units SC LUNCH 01/08/17 ([facility])] Insulin U-500 [Humulin R U-500 160 units SC BREAKFAST 01/08/17 ([facility])] Latanoprost 0.005% [Xalatan 1 drop EACH EYE QHS 01/08/17 Opthalmic] Losartan Potassium [Cozaar] 50 mg PO DAILY 01/08/17 Nebivolol HCl [Bystolic (Beta 10 mg PO DAILY 01/08/17 Akira)] Omeprazole [Prilosec] 40 mg PO DAILY 01/08/17 Acetaminophen [Tylenol Tablet] 650 mg PO Q6H PRN PRN tablet 09/07/17 Clopidogrel Bisulfate [Plavix] 75 mg PO DAILY 09/07/17 Menthol/Lanolin/Calamine/Znox 1 applic TOPICAL 0600,2200 tube 09/21/17 [Calmoseptine Ointment] Nutritional Supplement [Madhu - 1 packet PO BIDCM #60 packet 09/21/17 [place] FLAVOR] Nystatin Powder [Mycostatin Powder] 1 applic TOPICAL 0600,2200 bottle 09/21/17 Ferrous Sulfate [Iron] 325 mg PO BID 10/14/17 Clindamycin HCl 300 mg PO [id number] #40 cap 12/13/17 Maternal Family History: Diabetes Paternal Family History: Hypertension Sibling Family History: Diabetes Smoking Status: Former smoker Physical Exam Vital Signs Temp Pulse Resp BP 97.6 F L 91 18 119/62 02/01/18 11:06 02/01/18 11:06 02/01/18 11:06 02/01/18 11:06 General: Alert, Oriented x3, Cooperative, No apparent distress, Well developed, Well nourished HEENT: Atraumatic, PERRLA, EOMI, Normocephalic Lungs: Normal air movement Psych/Mental Status: Normal Affect, Appropriate, Alert and oriented to time, place, person, mood and affect Assessment/Plan The patient appears to be tolerating hyperbaric oxygen therapy well, which will be continued as per the patient's medical plan.
[2018-02-02 08:23] VITALS: BP 137/65; PULSE 90; RESP 18; TEMP 36.2
[2018-02-02 09:29] VITALS: BP 137/65; BP 150/81; PULSE 85; PULSE 90; RESP 16; RESP 18; TEMP 35.9; TEMP 36.2
[2018-02-02 09:31] LABS: Bedside Glucose 165 mg/dL (70-110)
--- NOTE | 2018-02-02 09:59 | HBO.PN.PCM_ITS ---
History of Present Illness Date of Service: 02/02/18 Presenting Chief Complaint: Diabetic toe and heel ulcers with necrosis of bone, Brooks Grade 3 [place]OS is a 57 year old currently undergoing hyperbaric oxygen therapy for open diabetic ulcer of the lower extremity with necrosis of the bone. Progress: The patient appeared to tolerate hyperbaric oxygen therapy session well. He however experienced some left ear pain on decent and on ascending. Tolerance of hyperbaric oxygen therapy: Hyperbaric oxygen therapy was administered as per the facility's protocol. The patient tolerated hyperbaric oxygen therapy well, however with complaints of mild left ear pain/fullness. Upon emergence from the hyperbaric chamber, the patient's vital signs remained stable. He was discharged in stable condition. 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) Delayed wound healing (Chronic) Malnutrition (Chronic) Venous insufficiency (Chronic) Lymphedema (Chronic) Edema of both legs (Chronic) GERD (gastroesophageal reflux disease) (Chronic) Hypertension (Chronic) Hyperlipemia (Chronic) Morbid obesity with BMI of 45.0-49.9, adult (Chronic) Hyperlipidemia associated with type 2 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(Chronic) 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 Allergies/Adverse Reactions: Allergies bee venom protein (honey bee) Allergy (Verified 12/13/17 09:30) Swelling metronidazole [From Flagyl] Allergy (Verified 12/13/17 09:30) Itching Home Medications: Ambulatory Orders Medication Instructions Recorded Atorvastatin Calcium [Lipitor] 10 mg PO QHS 01/08/17 Brimonidine Tartrate 0.2% 1 drop EACH EYE BID 01/08/17 [Brimonidine 0.2% 5Ml Bottle] Ergocalciferol [Vitamin D] 50,000 unit PO FR 01/08/17 Gabapentin [Neurontin] 1,600 mg PO QHS 01/08/17 Gabapentin [Neurontin] 600 mg PO DAILY 01/08/17 Insulin U-500 [Humulin R U-500 105 units SC DINNER 01/08/17 ([facility])] Insulin U-500 [Humulin R U-500 105 units SC LUNCH 01/08/17 ([facility])] Insulin U-500 [Humulin R U-500 160 units SC BREAKFAST 01/08/17 ([facility])] Latanoprost 0.005% [Xalatan 1 drop EACH EYE QHS 01/08/17 Opthalmic] Losartan Potassium [Cozaar] 50 mg PO DAILY 01/08/17 Nebivolol HCl [Bystolic (Beta 10 mg PO DAILY 01/08/17 Akira)] Omeprazole [Prilosec] 40 mg PO DAILY 01/08/17 Acetaminophen [Tylenol Tablet] 650 mg PO Q6H PRN PRN tablet 09/07/17 Clopidogrel Bisulfate [Plavix] 75 mg PO DAILY 09/07/17 Menthol/Lanolin/Calamine/Znox 1 applic TOPICAL 0600,2200 tube 09/21/17 [Calmoseptine Ointment] Nutritional Supplement [Madhu - 1 packet PO BIDCM #60 packet 09/21/17 [place] FLAVOR] Nystatin Powder [Mycostatin Powder] 1 applic TOPICAL 0600,2200 bottle 09/21/17 Ferrous Sulfate [Iron] 325 mg PO BID 10/14/17 Clindamycin HCl 300 mg PO [id number] #40 cap 12/13/17 Maternal Family History: Diabetes Paternal Family History: Hypertension Sibling Family History: Diabetes Smoking Status: Former smoker Physical Exam Vital Signs Temp Pulse Resp BP 97.1 F L 90 18 137/65 H 02/02/18 09:29 02/02/18 09:29 02/02/18 09:29 02/02/18 09:29 General: Alert, Oriented x3, Cooperative, No apparent distress HEENT: Atraumatic Lungs: Normal air movement Psych/Mental Status: Normal Affect Assessment/Plan Active Problems Ulcer of left lower extremity, limited to breakdown of skin (Chronic) Ulcer of right foot with fat layer exposed (Chronic) Type 2 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with diabetic polyneuropathy (Chronic) Malnutrition (Chronic) Lymphedema (Chronic) Edema of both legs (Chronic) Morbid obesity with BMI of 45.0-49.9, adult (Chronic) The patient appears to be tolerating hyperbaric oxygen therapy well, which will be continued as per the patient's medical plan. He was however advised to follow up with his ENT for possible repositioning of his left ear tube which appeared dislodged.
[2018-02-02 11:35] LABS: Bedside Glucose 126 mg/dL (70-110)
--- NOTE | 2018-02-02 12:15 | PCM.WC.PN ---
(1) Ulcer of right foot with fat layer exposed Status: Chronic Code(s): L97.512 - Non-pressure chronic ulcer of other part of right foot with fat layer exposed (2) Ulcer of left lower extremity, limited to breakdown of skin Status: Chronic Code(s): L97.921 - Non-pressure chronic ulcer of unspecified part of left lower leg limited to breakdown of skin (3) Type 2 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with diabetic polyneuropathy Status: Chronic Code(s): E11.42 - Type 2 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with diabetic polyneuropathy (4) Malnutrition Status: Chronic Code(s): E46 - Unspecified protein-calorie malnutrition (5) Lymphedema Status: Chronic Code(s): I89.0 - Lymphedema, not elsewhere classified (6) Edema of both legs Status: Chronic Code(s): R60.0 - Localized edema (7) Morbid obesity with BMI of 45.0-49.9, adult Status: Chronic Code(s): E66.01 - Morbid (severe) obesity due to excess calories; Z68.42 - Body mass index (BMI) 45.0-49.9, adult Type of Wound Date of Service: 02/05/18 Chief Complaint: 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 He denies fever, chill, nausea, vomiting, loss of appetite. He underwent surgical debridement application of advanced wound care products, Amniofil and epi fix September 14, 2017. He has also been having serial applications of epi fix in the wound healing center. He is increased with elevation at home and his leg size is significantly reduced. He relates he does want full compression pump session daily and does a second session of approximately 15 minutes. Presents in a wheelchair today. He has been attending hyperbaric oxygen therapy sessions. He denies odors or redness. He has demonstrated significant delays in healing. He asked if he can return to shrink wrap on the left lower extremity and complains of continued weeping to his amputation stump site. Progress of Wound: Improving - Physical Exam Vital Signs Temp Pulse Resp BP 97.1 F L 90 18 137/65 H 02/02/18 09:29 02/02/18 09:29 02/02/18 09:02/02/18 09:29 General: Alert, Oriented x3, Cooperative Extremities: No cyanosis, Capillary Refill Less than 3 Seconds, No Calf Tenderness - Negative Harry and Badillo right, Diminished Peripheral Pulses, Edema - Moderate bilateral lower extremities and continue lymphedema, - - Left below-knee amputation Skin: Ulcer/ Wound - No purulence, no erythema, streaking, no odor, no acute signs of infection right lower extremity. There is continued weeping and sub-hemorrhagic tissue exposure to left below-knee amputation stump site as well as to the lymphedema toe area on the right foot. There is no eschar, deep necrosis, or deep exposed tissue noted. Wound Measurements and Assessment WC - Nurse 1 - General Ulcer Measurement Start: 01/05/18 10:04 Freq: Status: Active Protocol: Activity Type Activity Date Activity User E-Sign Co-Sign Detail Recorded Client Recorded Date Recorded By Document 02/02/18 08:23 ANUP [id number] 02/02/18 08:26 ANUP 02/02/18 08:23 Wound Center Nurse 1 [Ulcer Assessment] #13 R Med Heel -Combined with other wound No -Current Size (cm) - Length 3.7 -Current Size (cm) - Width 3.9 -Current Size (cm) - Depth 0.1 -Total Square Cm 14.43 -Photo Taken No -Epithelialization None Present -Tunneling No -Undermining/Tunneling No -Circular Undermining No -Temperature (Martha-wound Skin No Abnormality Appearance) (Pt Warm) -Tenderness on Palpation (Martha-wound No Skin Appearance) -Ulcer Cleansing Wound Cleanser -Foul Odor after Cleansing No -Anesthetic Used 4% Lidocaine Solution #21 Right Foot-Toes w/Metatarsal Head circumfrential -Combined with other wound No -Current Size (cm) - Length 6.1 -Current Size (cm) - Width 2.7 -Current Size (cm) - Depth 0.1 -Total Square Cm 16.47 -Photo Taken No -Temperature (Martha-wound Skin No Abnormality Appearance) (Pt Warm) -Tenderness on Palpation (Martha-wound No Skin Appearance) -Ulcer Cleansing Wound Cleanser -Foul Odor after Cleansing No -Anesthetic Used 4% Lidocaine Solution [Edema Assessment] -Lower Limb Edema Present NA RADHA - Nurse 2 - General Ulcer CM Notes Start: 01/05/18 10:04 Freq: Status: Active Protocol: Activity Type Activity Date Activity User E-Sign Co-Sign Detail Recorded Client Recorded Date Recorded By Document 02/02/18 10:54 ANUP [id number] 02/02/18 10:58 ANUP 02/02/18 10:54 Wound Center Nurse 2 [Procedure/Treatment] #13 R Med Heel -Time 10:54 -Correct Patient Yes -Correct Side, Site, Position Yes -Correct Procedure Yes -Procedure Performed Yes -Type of Procedure Debridement -Clinical Debridement Subcutaneous -Post Debridement Size (cm) - Length 3.8 -Post Debridement Size (cm) - Width 4 -Post Debridement Size (cm) - Depth 0.1 -Total Square Cm 15.2 -Wound/Ulcer Outcome Not Healed -Ulcer Cleansing Rinsed/ Irrigated with Saline -Foul Odor after Cleansing No -Bioengineered Tissue Yes -Type of bioengineered Tissue EPIFIX -Expiration Date 11/05/22 -Product Lot Number [id number] -Percent Used 100 -Saline Lot Number [id number] -Bleeding Controlled with Pressure -Treatment Response Procedure Tolerated Well #21 Right Foot-Toes w/Metatarsal Head circumfrential -Time 10:56 -Correct Patient Yes -Correct Side, Site, Position Yes -Correct Procedure Yes -Procedure Performed Yes -Type of Procedure Debridement -Clinical Debridement Subcutaneous -Post Debridement Size (cm) - Length 6.2 -Post Debridement Size (cm) - Width 2.8 -Post Debridement Size (cm) - Depth 0.1 -Total Square Cm 17.36 -Wound/Ulcer Outcome Not Healed -Ulcer Cleansing Rinsed/ Irrigated with Saline -Foul Odor after Cleansing No -Bioengineered Tissue No -Type of bioengineered Tissue EPIFIX -Expiration Date 11/05/22 -Product Lot Number [id number] -Percent Used 100 -Saline Lot Number [id number] -Bleeding Controlled with Pressure -Treatment Response Procedure Tolerated Well [See Physician Procedure note for Specifics] Pain Scale: 0-10 Numeric [Pain] -Is Patient Pain Free? Yes Musculoskeletal: No Tenderness to Palpation of Joints or Extremities, Muscle Wasting Neurological: - - Lack of epicritic sensation light touch to bilateral extremities Psych/Mental Status: Normal Affect, Appropriate Debridement Note Post-Debridement Measurements/Treatment WC - Nurse 2 - General Ulcer CM Notes Start: 01/05/18 10:04 Freq: Status: Active Protocol: Activity Type Activity Date Activity User E-Sign Co-Sign Detail Recorded Client Recorded Date Recorded By Document 01/05/18 10:28 [id number] 01/05/18 10:46 TM Document 01/12/18 10:39 [id number] 01/12/18 10:43 TM Document 01/19/18 12:23 [id number] 01/19/18 12:25 Document 01/26/18 10:14 [id number] 01/26/18 10:17 Document 02/02/18 10:54 [id number] 02/02/18 10:58 01/05/18 01/12/18 01/19/18 10:28 10:39 12:23 Wound Center Nurse 2 18-right plantar foot -Time 10:31 -Correct Patient Yes -Correct Side, Site, Position Yes -Correct Procedure Yes -Procedure Performed Yes -Post Debridement Size (cm) - Length 0 -Post Debridement Size (cm) - Width 0 -Post Debridement Size (cm) - Depth 0 -Total Square Cm 0 -Wound/Ulcer Outcome Healed- Epithelialized -Ulcer Cleansing Rinsed/ Irrigated with Saline -Foul Odor after Cleansing No -Bioengineered Tissue No -Bleeding Controlled with NA -Treatment Response Procedure Tolerated Well #13 R Med Heel -Time 10:31 10:39 12:23 -Correct Patient Yes Yes Yes -Correct Side, Site, Position Yes Yes Yes -Correct Procedure Yes Yes Yes -Procedure Performed Yes Yes Yes -Type of Procedure Debridement Debridement Debridement -Clinical Debridement Subcutaneous Subcutaneous Subcutaneous -Post Debridement Size (cm) - Length 5.9 3.4 3.8 -Post Debridement Size (cm) - Width 4.1 3.4 3.8 -Post Debridement Size (cm) - Depth 0.1 0.1 0.2 -Total Square Cm 24.19 11.56 14.44 -Wound/Ulcer Outcome Not Healed Not Healed Not Healed -Ulcer Cleansing Rinsed/ Rinsed/ Rinsed/ Irrigated with Irrigated with Irrigated with Saline Saline Saline -Foul Odor after Cleansing No No No -Bioengineered Tissue Yes Yes Yes -Type of bioengineered Tissue EPIFIX EPIFIX EPIFIX -Expiration Date 10/05/22 10/18/22 11/05/22 -Product Lot Number [id number] -Percent Used 100 100 100 -Saline Lot Number [id number] -Topical Lidocaine (%) 4 4 -Bleeding Controlled with Pressure Pressure Pressure -Treatment Response Procedure Procedure Procedure Tolerated Well Tolerated Well Tolerated Well #9 RIGHt norman -Time 10:29 -Correct Patient Yes -Correct Side, Site, Position Yes -Correct Procedure Yes -Procedure Performed Yes -Post Debridement Size (cm) - Length 0 -Post Debridement Size (cm) - Width 0 -Post Debridement Size (cm) - Depth 0 -Total Square Cm 0 -Wound/Ulcer Outcome Healed- Epithelialized -Ulcer Cleansing Rinsed/ Irrigated with Saline -Foul Odor after Cleansing No -Bioengineered Tissue No -Bleeding Controlled with NA -Treatment Response Procedure Tolerated Well #21 Right Foot-Toes w/Metatarsal Head circumfrential -Time 10:46 10:40 12:24 -Correct Patient Yes Yes Yes -Correct Side, Site, Position Yes Yes Yes -Correct Procedure Yes Yes Yes -Procedure Performed Yes Yes Yes -Type of Procedure Debridement Debridement Debridement -Clinical Debridement Subcutaneous Subcutaneous Subcutaneous -Post Debridement Size (cm) - Length 4.7 8.3 10.5 -Post Debridement Size (cm) - Width 4.9 4.1 6 -Post Debridement Size (cm) - Depth 0.1 0.1 0.1 -Total Square Cm 23.03 34.03 63.0 -Wound/Ulcer Outcome Not Healed Not Healed Not Healed -Ulcer Cleansing Rinsed/ Rinsed/ Rinsed/ Irrigated with Irrigated with Irrigated with Saline Saline Saline -Foul Odor after Cleansing No No No -Bioengineered Tissue No No Yes -Type of bioengineered Tissue EPIFIX -Expiration Date 11/05/22 -Product Lot Number [id number] -Percent Used 100 -Saline Lot Number [id number] -Topical Lidocaine (%) 4 4 -Bleeding Controlled with Pressure Pressure Pressure -Treatment Response Procedure Procedure Procedure Tolerated Well Tolerated Well Tolerated Well Pain Scale: 0-10 Numeric Is Patient Pain Free? Yes Yes Yes 01/26/18 02/02/18 10:14 10:54 Wound Center Nurse 2 18-right plantar foot -Time -Correct Patient -Correct Side, Site, Position -Correct Procedure -Procedure Performed -Post Debridement Size (cm) - Length -Post Debridement Size (cm) - Width -Post Debridement Size (cm) - Depth -Total Square Cm -Wound/Ulcer Outcome -Ulcer Cleansing -Foul Odor after Cleansing -Bioengineered Tissue -Bleeding Controlled with -Treatment Response #13 R Med Heel -Time 10:15 10:54 -Correct Patient Yes Yes -Correct Side, Site, Position Yes Yes -Correct Procedure Yes Yes -Procedure Performed Yes Yes -Type of Procedure Debridement Debridement -Clinical Debridement Subcutaneous Subcutaneous -Post Debridement Size (cm) - Length 4 3.8 -Post Debridement Size (cm) - Width 4.6 4 -Post Debridement Size (cm) - Depth 0.2 0.1 -Total Square Cm 18.4 15.2 -Wound/Ulcer Outcome Not Healed Not Healed -Ulcer Cleansing Rinsed/ Rinsed/ Irrigated with Irrigated with Saline Saline -Foul Odor after Cleansing No No -Bioengineered Tissue Yes Yes -Type of bioengineered Tissue EPIFIX EPIFIX -Expiration Date 11/05/22 11/05/22 -Product Lot Number [id number] -Percent Used 100 100 -Saline Lot Number [id number] -Topical Lidocaine (%) -Bleeding Controlled with Pressure Pressure -Treatment Response Procedure Procedure Tolerated Well Tolerated Well #9 RIGHt norman -Time -Correct Patient -Correct Side, Site, Position -Correct Procedure -Procedure Performed -Post Debridement Size (cm) - Length -Post Debridement Size (cm) - Width -Post Debridement Size (cm) - Depth -Total Square Cm -Wound/Ulcer Outcome -Ulcer Cleansing -Foul Odor after Cleansing -Bioengineered Tissue -Bleeding Controlled with -Treatment Response #21 Right Foot-Toes w/Metatarsal Head circumfrential -Time 10:15 10:56 -Correct Patient Yes Yes -Correct Side, Site, Position Yes Yes -Correct Procedure Yes Yes -Procedure Performed Yes Yes -Type of Procedure Debridement Debridement -Clinical Debridement Subcutaneous Subcutaneous -Post Debridement Size (cm) - Length 11.8 6.2 -Post Debridement Size (cm) - Width 7 2.8 -Post Debridement Size (cm) - Depth 0.1 0.1 -Total Square Cm 82.6 17.36 -Wound/Ulcer Outcome Not Healed Not Healed -Ulcer Cleansing Rinsed/ Rinsed/ Irrigated with Irrigated with Saline Saline -Foul Odor after Cleansing No No -Bioengineered Tissue Yes No -Type of bioengineered Tissue EPIFIX EPIFIX -Expiration Date 11/05/22 11/05/22 -Product Lot Number [id number] -Percent Used 100 100 -Saline Lot Number [id number] -Topical Lidocaine (%) -Bleeding Controlled with Pressure Pressure -Treatment Response Procedure Procedure Tolerated Well Tolerated Well Pain Scale: 0-10 Numeric Is Patient Pain Free? Yes Yes Wound debrided: heel Laterality: Right Wound Grade/Stage: grade 3 Type of Debridement: Excisional debridement Anesthesia Used: 4% Lidocaine Solution Depth: in the subcutaneous layer Percentage of wound debrided: 100 Instrument Used: #15 blade Tissue Removed: fibrous, devitalized subcutaneous, biofilm, slough Severity: Fat Layer Exposed Amount of bleeding with debridement: Mild Bleeding Controlled with: Pressure Patient tolerated procedure well - Additional Wound Wound debrided: toe Laterality: Right Wound Grade/Stage: grade 1 Type of Debridement: Excisional debridement Anesthesia Used: 4% Lidocaine Solution Depth: in the subcutaneous layer Percentage of wound debrided: 100 Instrument Used: #15 blade Tissue Removed: fibrous, devitalized subcutaneous, biofilm, slough Severity: Fat Layer Exposed Amount of bleeding with debridement: Mild Bleeding Controlled with: Pressure Patient tolerated procedure: Patient tolerated procedure well Assessment/Plan Assessment: ulcer right forefoot - returned (digits 2). right heel ulcer muscle involved and exposed fascia without infection noted today (previous grade 3); s/p surgical debridement and application of advance wound care products (amniofil and epicord). Left below-knee amputation sub-hemorrhagic tissue with continued weeping noted; no infection. Lymphedema. Ulcer left stump site with skin layer exposed, no infection. Chronic lower extremity edema and venous insufficiency. Morbid obesity. Type 2 diabetes uncontrolled with peripheral neuropathy. CKD. Hypertension. Left below-knee amputation. Malnutrition. Delayed wound healing. Nonadherence to treatment plan Plan: I reviewed and discussed his case debridement done as documented above in the clinical panel, procedure was well tolerated. Epifix was applied to the right heel after verbal consent was obtained. No product was wasted in addition was overlap to allow improved incorporation. This was applied according to standard protocol. He tolerated this well. A secondary dressing was applied. leave in place for 1 week. Continue compression and elevate lower extreity when sitting and in bed. Optimal blood sugar contol. Continue protein suppplements and increased protein in diet. To continue hyperbaric oxygen therapy as scheduled on complaint basis. If his left limb continues to have no weeping next week the plan is to progress him into his strength wrap with the intention to progress to his leg prosthetic. To improve compliance with compression pumps. I advised him to at least get a second session even if it is reduced in time each day. He reports he is doing this and I recommend he continues. Follow up in 1 week with at the wound healing center or call sooner if he has any questions or concerns.
--- NOTE | 2018-02-03 09:35 | HBO.PN.PCM_ITS ---
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 Progress: The patient appeared to tolerate hyperbaric oxygen therapy session well. He had a new ear tube placed. Tolerance of hyperbaric oxygen therapy: Hyperbaric oxygen therapy was administered as per the facility's protocol. The patient tolerated hyperbaric oxygen therapy well. Upon emergence from the hyperbaric chamber, the patient's vital signs remained stable. He was discharged in stable condition. 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) Delayed wound healing (Chronic) Malnutrition (Chronic) Venous insufficiency (Chronic) Lymphedema (Chronic) Edema of both legs (Chronic) GERD (gastroesophageal reflux disease) (Chronic) Hypertension (Chronic) Hyperlipemia (Chronic) Morbid obesity with BMI of 45.0-49.9, adult (Chronic) Hyperlipidemia associated with type 2 diabetes mellitus (Chronic) 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 Allergies/Adverse Reactions: Allergies bee venom protein (honey bee) Allergy (Verified 12/13/17 09:30) Swelling metronidazole [From Flagyl] Allergy (Verified 12/13/17 09:30) Itching Home Medications: Ambulatory Orders Medication Instructions Recorded Atorvastatin Calcium [Lipitor] 10 mg PO QHS 01/08/17 Brimonidine Tartrate 0.2% 1 drop EACH EYE BID 01/08/17 [Brimonidine 0.2% 5Ml Bottle] Ergocalciferol [Vitamin D] 50,000 unit PO FR 01/08/17 Gabapentin [Neurontin] 1,600 mg PO QHS 01/08/17 Gabapentin [Neurontin] 600 mg PO DAILY 01/08/17 Insulin U-500 [Humulin R U-500 105 units SC DINNER 01/08/17 ([facility])] Insulin U-500 [Humulin R U-500 105 units SC LUNCH 01/08/17 ([facility])] Insulin U-500 [Humulin R U-500 160 units SC BREAKFAST 01/08/17 ([facility])] Latanoprost 0.005% [Xalatan 1 drop EACH EYE QHS 01/08/17 Opthalmic] Losartan Potassium [Cozaar] 50 mg PO DAILY 01/08/17 Nebivolol HCl [Bystolic (Beta 10 mg PO DAILY 01/08/17 Akira)] Omeprazole [Prilosec] 40 mg PO DAILY 01/08/17 Acetaminophen [Tylenol Tablet] 650 mg PO Q6H PRN PRN tablet 09/07/17 Clopidogrel Bisulfate [Plavix] 75 mg PO DAILY 09/07/17 Menthol/Lanolin/Calamine/Znox 1 applic TOPICAL 0600,2200 tube 09/21/17 [Calmoseptine Ointment] Nutritional Supplement [Madhu - 1 packet PO BIDCM #60 packet 09/21/17 [facility]LA[facility]OR] Nystatin Powder [Mycostatin Powder] 1 applic TOPICAL 0600,2200 bottle 09/21/17 Ferrous Sulfate [Iron] 325 mg PO BID 10/14/17 Clindamycin HCl 300 mg PO [id number] #40 cap 12/13/17 Maternal Family History: Diabetes Paternal Family History: Hypertension Sibling Family History: Diabetes Smoking Status: Former smoker Physical Exam Vital Signs Temp Pulse Resp BP 97.1 F L 90 18 137/65 H 02/02/18 09:29 02/02/18 09:29 02/02/18 09:29 02/02/18 09:29 General: Alert, Oriented x3, Cooperative, No apparent distress HEENT: Atraumatic Lungs: Normal air movement Psych/Mental Status: Normal Affect Assessment/Plan Active Problems Ulcer of left lower extremity, limited to breakdown of skin (Chronic) Ulcer of right foot with fat layer exposed (Chronic) Type 2 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with diabetic polyneuropathy (Chronic) Malnutrition (Chronic) Lymphedema (Chronic) Edema of both legs (Chronic) Morbid obesity with BMI of 45.0-49.9, adult (Chronic) The patient appears to be tolerating hyperbaric oxygen therapy well, which will be continued as per the patient's medical plan.
[2018-02-03 09:36] LABS: Bedside Glucose 203 mg/dL (70-110)
[2018-02-03 09:40] VITALS: BP 122/62; BP 132/70; PULSE 81; PULSE 83; RESP 16; RESP 18; TEMP 35.9; TEMP 36.1
[2018-02-03 11:46] LABS: Bedside Glucose 148 mg/dL (70-110)
== END 2018-02-04 23:59 ==
LOC: WC 10:00
PROVIDERS: Family Provider Family Medicine Geriatric Medicine; PCP Family Medicine Geriatric Medicine; Visit Provider Podiatrist
DX: E11.621 Type 2 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with foot ulcer (principal); E11.42 Type 2 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with diabetic polyneuropathy; I89.0 Lymphedema, not elsewhere classified; R60.0 Localized edema; L97.512 Non-pressure chronic ulcer of other part of right foot with fat layer exposed; E66.01 Morbid (severe) obesity due to excess calories; Z68.42 Body mass index [BMI] 45.0-49.9, adult; Z71.3 Dietary counseling and surveillance; E11.22 Type 2 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with diabetic chronic kidney disease; E11.65 Type 2 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with hyperglycemia; N18.9 Chronic kidney disease, unspecified; L97.415 Non-pressure chronic ulcer of right heel and midfoot with muscle involvement without evidence of necrosis; I12.9 Hypertensive chronic kidney disease with stage 1 through stage 4 chronic kidney disease, or unspecified chronic kidney disease; Z89.512 Acquired absence of left leg below knee
CPT/HCPCS: 11042; 11045; 15275; 29581; 82962; 99183; Q4131; G0277

== ENCOUNTER 2018-03-04 10:00 | Outpatient (RCR) | payer MEDICARE, MEDICAID, SELFPAY ==
[2018-02-05 01:01] VITALS: BP 132/70; PULSE 81; RESP 16; TEMP 35.9
[2018-02-08 09:45] LABS: Bedside Glucose 244 mg/dL (70-110)
[2018-02-08 09:50] VITALS: BP 144/80; BP 161/83; PULSE 88; PULSE 93; RESP 18; TEMP 36.1; TEMP 36.3
[2018-02-08 11:51] LABS: Bedside Glucose 178 mg/dL (70-110)
--- NOTE | 2018-02-08 13:45 | PCM.HBO.PN ---
History of Present Illness Date of Service: 02/08/18 Presenting Chief Complaint: Diabetic toe and heel ulcers with necrosis of bone, Brooks Grade 3 DEL BARRIOS is a 57 year old currently undergoing hyperbaric oxygen therapy for diabetic toe and heel ulcers with necrosis of bone, Brooks Grade 3 Progress: The patient appears to be tolerating hyperbaric oxygen therapy well. Today's session represents the 10th such session of hyperbaric oxygen therapy. Tolerance of hyperbaric oxygen therapy: Hyperbaric oxygen therapy was administered as per the facility's protocol. The patient tolerated hyperbaric oxygen therapy well, without complaints or complications. Upon emergence from the hyperbaric chamber, patient's vital signs remained stable. Patient was discharged in good condition. 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) Delayed wound healing (Chronic) Malnutrition (Chronic) Venous insufficiency (Chronic) Lymphedema (Chronic) Edema of both legs (Chronic) GERD (gastroesophageal reflux disease) (Chronic) Hypertension (Chronic) Hyperlipemia (Chronic) Morbid obesity with BMI of 45.0-49.9, adult (Chronic) Hyperlipidemia associated with type 2 diabetes mellitus (Chronic) 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 Allergies/Adverse Reactions: Allergies bee venom protein (honey bee) Allergy (Verified 12/13/17 09:30) Swelling metronidazole [From Flagyl] Allergy (Verified 12/13/17 09:30) Itching Home Medications: Ambulatory Orders Medication Instructions Recorded Atorvastatin Calcium [Lipitor] 10 mg PO QHS 01/08/17 Brimonidine Tartrate 0.2% 1 drop EACH EYE BID 01/08/17 [Brimonidine 0.2% 5Ml Bottle] Ergocalciferol [Vitamin D] 50,000 unit PO FR 01/08/17 Gabapentin [Neurontin] 1,600 mg PO QHS 01/08/17 Gabapentin [Neurontin] 600 mg PO DAILY 01/08/17 Insulin U-500 [Humulin R U-500 105 units SC DINNER 01/08/17 ([facility])] Insulin U-500 [Humulin R U-500 105 units SC LUNCH 01/08/17 ([facility])] Insulin U-500 [Humulin R U-500 160 units SC BREAKFAST 01/08/17 ([facility])] Latanoprost 0.005% [Xalatan 1 drop EACH EYE QHS 01/08/17 Opthalmic] Losartan Potassium [Cozaar] 50 mg PO DAILY 01/08/17 Nebivolol HCl [Bystolic (Beta 10 mg PO DAILY 01/08/17 Akira)] Omeprazole [Prilosec] 40 mg PO DAILY 01/08/17 Acetaminophen [Tylenol Tablet] 650 mg PO Q6H PRN PRN tablet 09/07/17 Clopidogrel Bisulfate [Plavix] 75 mg PO DAILY 09/07/17 Menthol/Lanolin/Calamine/Znox 1 applic TOPICAL 0600,2200 tube 09/21/17 [Calmoseptine Ointment] Nutritional Supplement [Madhu - 1 packet PO BIDCM #60 packet 09/21/17 ORANGE FLAVOR] Nystatin Powder [Mycostatin Powder] 1 applic TOPICAL 0600,2200 bottle 09/21/17 Ferrous Sulfate [Iron] 325 mg PO BID 10/14/17 Clindamycin HCl 300 mg PO [id number] #40 cap 12/13/17 Maternal Family History: Diabetes Paternal Family History: Hypertension Sibling Family History: Diabetes Smoking Status: Former smoker Physical Exam Vital Signs Temp Pulse Resp BP 97.4 F L 93 18 161/83 H 02/08/18 09:50 02/08/18 09:50 02/08/18 09:50 02/08/18 09:50 General: Alert, Oriented x3, Cooperative, No apparent distress, Well developed, Well nourished HEENT: Atraumatic, PERRLA, EOMI, Normocephalic Lungs: Normal air movement Psych/Mental Status: Normal Affect, Appropriate, Alert and oriented to time, place, person, mood and affect Assessment/Plan The patient appears to be tolerating hyperbaric oxygen therapy well, which will be continued as per the patient's medical plan.
[2018-02-09 08:32] VITALS: BP 101/54; PULSE 91; RESP 18; TEMP 35.4
--- NOTE | 2018-02-09 09:20 | PCM.WC.PN ---
(1) Ulcer of right lower extremity with fat layer exposed Status: Chronic Current Visit: Yes Code(s): L97.912 - Non-pressure chronic ulcer of unspecified part of right lower leg with fat layer exposed (2) Ulcer of left lower extremity, limited to breakdown of skin Status: Chronic Current Visit: Yes Code(s): L97.921 - Non-pressure chronic ulcer of unspecified part of left lower leg limited to breakdown of skin (3) Complete below knee amputation of left lower extremity Status: Chronic Current Visit: Yes Qualifiers: Code(s): S88.112A - Complete traumatic amputation at level between knee and ankle, left lower leg, initial encounter (4) Morbid obesity Status: Chronic Current Visit: Yes Code(s): E66.01 - Morbid (severe) obesity due to excess calories (5) Chronic kidney disease (CKD) Status: Chronic Current Visit: Yes Qualifiers: Code(s): N18.9 - Chronic kidney disease, unspecified (6) Type 2 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with diabetic polyneuropathy Status: Chronic Current Visit: Yes Code(s): E11.42 - Type 2 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with diabetic polyneuropathy (7) Malnutrition Status: Chronic Current Visit: Yes Code(s): E46 - Unspecified protein-calorie malnutrition (8) Lymphedema Status: Chronic Current Visit: Yes Code(s): I89.0 - Lymphedema, not elsewhere classified (9) Edema of both legs Status: Chronic Current Visit: Yes Code(s): R60.0 - Localized edema Type of Wound Date of Service: 02/09/18 Chief Complaint: 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 He denies fever, chill, nausea, vomiting, loss of appetite. He underwent surgical debridement application of advanced wound care products, Amniofil and epi fix September 14, 2017. She has also been having serial applications of epi fix in the wound healing center. He is increased with elevation at home and his leg size is significantly reduced. He relates he does want full compression pump session daily and does a second session of approximately 15 minutes. Presents in a wheelchair today. He is amenable to undergo hyperbaric oxygen therapy and been attending the sessions as advised. He denies odors or redness. He has demonstrated significant delays in healing. He relates his left stump site is still leaking fluid. Progress of Wound: Improving - Physical Exam Vital Signs Temp Pulse Resp BP 95.7 F L 91 18 101/54 L 02/09/18 08:32 02/09/18 08:32 02/09/18 08:32 02/09/18 08:32 General: Alert, Oriented x3, Cooperative Extremities: No cyanosis, Capillary Refill Less than 3 Seconds, No Calf Tenderness - Negative Harry and Badillo right, Diminished Peripheral Pulses, Edema, - - Left below-knee amputation. Bilateral lymphedema of lower extremities Skin: Ulcer/ Wound - No purulence, no erythema, streaking, no odor, no acute signs of infection or deep tissue or eschar exposure today. There is significant peripheral epithelialization noted to the heel wound on the right. There is continued weeping and sub-hemorrhagic tissue exposure on the left below-knee amputation stump site that is bulbous in nature. Wound Measurements and Assessment WC - Nurse 1 - General Ulcer Measurement Start: 02/08/18 10:34 Freq: Status: Active Protocol: Activity Type Activity Date Activity User E-Sign Co-Sign Detail Recorded Client Recorded Date Recorded By Document 02/09/18 08:32 ANUP [id number] 02/09/18 08:35 ANUP 02/09/18 08:32 Wound Center Nurse 1 [Ulcer Assessment] #13 R Med Heel -Combined with other wound No -Current Size (cm) - Length 2.3 -Current Size (cm) - Width 3 -Current Size (cm) - Depth 0.1 -Total Square Cm 6.9 -Photo Taken No -Epithelialization Small 1-33% -Tunneling No -Undermining/Tunneling No -Circular Undermining No -Exudate Amt Medium (34-66%) -Exudate Type Serosanguineous -Wound Margin Flat & Intact -Granulation Amt Medium (34-66%) -Granulation Quality Red -Slough/Fibrin Yes -Necrosis Amt Medium (34-66%) -Necrotic Tissue Type Adherent Slough -Structure Exposed N/A -Texture (Martha-wound Skin Appearance) Assessed Localized Edema Scarring -Moisture (Martha-wound Skin Appearance Assessed ) Dry/Scaly -Color (Martha-wound Skin Appearance) Assessed -Temperature (Martha-wound Skin No Abnormality Appearance) (Pt Warm) -Tenderness on Palpation (Martha-wound No Skin Appearance) -Ulcer Cleansing Wound Cleanser -Foul Odor after Cleansing No -Anesthetic Used 4% Lidocaine Solution #21 Right Foot-Toes w/Metatarsal Head circumfrential -Combined with other wound No -Current Size (cm) - Length 3 -Current Size (cm) - Width 2 -Current Size (cm) - Depth 0.1 -Total Square Cm 6 -Photo Taken No -Epithelialization Small 1-33% -Tunneling No -Undermining/Tunneling No -Circular Undermining No -Exudate Amt Small (1-33%) -Exudate Type Serosanguineous -Wound Margin Flat & Intact -Granulation Amt Small (1-33%) -Granulation Quality Pale -Slough/Fibrin Yes -Necrosis Amt Large (67-100%) -Necrotic Tissue Type Adherent Slough -Structure Exposed N/A -Texture (Martha-wound Skin Appearance) Assessed Excoriation Localized Edema -Moisture (Martha-wound Skin Appearance Assessed ) Maceration Dry/Scaly -Color (Martha-wound Skin Appearance) Assessed Hemosiderin Staining -Temperature (Martha-wound Skin No Abnormality Appearance) (Pt Warm) -Tenderness on Palpation (Martha-wound No Skin Appearance) -Ulcer Cleansing Wound Cleanser -Foul Odor after Cleansing No -Anesthetic Used 4% Lidocaine Solution [Edema Assessment] -Lower Limb Edema Present Yes -Right Calf (cm) 38.2 -Right Ankle (cm) 29.5 -Left Calf (cm) 45.3 WC - Nurse 2 - General Ulcer CM Notes Start: 02/08/18 10:34 Freq: Status: Active Protocol: Activity Type Activity Date Activity User E-Sign Co-Sign Detail Recorded Client Recorded Date Recorded By Document 02/09/18 08:47 ANUP [id number] 02/09/18 08:49 ANUP 02/09/18 08:47 Wound Center Nurse 2 [Procedure/Treatment] #13 R Med Heel -Time 08:47 -Correct Patient Yes -Correct Side, Site, Position Yes -Correct Procedure Yes -Procedure Performed Yes -Type of Procedure Debridement -Clinical Debridement Subcutaneous -Post Debridement Size (cm) - Length 2.3 -Post Debridement Size (cm) - Width 3.1 -Post Debridement Size (cm) - Depth 0.1 -Total Square Cm 7.13 -Wound/Ulcer Outcome Not Healed -Ulcer Cleansing Wound Cleanser -Foul Odor after Cleansing No -Bioengineered Tissue Yes -Type of bioengineered Tissue EPIFIX -Expiration Date 11/05/22 -Product Lot Number [id number] -Percent Used 100 -Saline Lot Number [id number] -Bleeding Controlled with Pressure -Treatment Response Procedure Tolerated Well #21 Right Foot-Toes w/Metatarsal Head circumfrential -Time 08:48 -Correct Patient Yes -Correct Side, Site, Position Yes -Correct Procedure Yes -Procedure Performed Yes -Type of Procedure Debridement -Clinical Debridement Subcutaneous -Post Debridement Size (cm) - Length 3 -Post Debridement Size (cm) - Width 2.1 -Post Debridement Size (cm) - Depth 0.1 -Total Square Cm 6.3 -Wound/Ulcer Outcome Not Healed -Ulcer Cleansing Rinsed/ Irrigated with Saline -Foul Odor after Cleansing No -Bioengineered Tissue Yes -Type of bioengineered Tissue EPIFIX -Expiration Date 11/05/22 -Product Lot Number [id number] -Percent Used 100 -Saline Lot Number [id number] -Bleeding Controlled with Pressure -Treatment Response Procedure Tolerated Well [See Physician Procedure note for Specifics] Pain Scale: 0-10 Numeric [Pain] -Is Patient Pain Free? Yes Musculoskeletal: No Tenderness to Palpation of Joints or Extremities, Muscle Wasting Neurological: - - Lack of epicritic sensation light touch Psych/Mental Status: Normal Affect, Appropriate Debridement Note Post-Debridement Measurements/Treatment WC - Nurse 2 - General Ulcer CM Notes Start: 02/08/18 10:34 Freq: Status: Active Protocol: Activity Type Activity Date Activity User E-Sign Co-Sign Detail Recorded Client Recorded Date Recorded By Document 02/09/18 08:47 ANUP [id number] 02/09/18 08:49 ANUP 02/09/18 08:47 Wound Center Nurse 2 #13 R Med Heel -Time 08:47 -Correct Patient Yes -Correct Side, Site, Position Yes -Correct Procedure Yes -Procedure Performed Yes -Type of Procedure Debridement -Clinical Debridement Subcutaneous -Post Debridement Size (cm) - Length 2.3 -Post Debridement Size (cm) - Width 3.1 -Post Debridement Size (cm) - Depth 0.1 -Total Square Cm 7.13 -Wound/Ulcer Outcome Not Healed -Ulcer Cleansing Wound Cleanser -Foul Odor after Cleansing No -Bioengineered Tissue Yes -Type of bioengineered Tissue EPIFIX -Expiration Date 11/05/22 -Product Lot Number [id number] -Percent Used 100 -Saline Lot Number [id number] -Bleeding Controlled with Pressure -Treatment Response Procedure Tolerated Well #21 Right Foot-Toes w/Metatarsal Head circumfrential -Time 08:48 -Correct Patient Yes -Correct Side, Site, Position Yes -Correct Procedure Yes -Procedure Performed Yes -Type of Procedure Debridement -Clinical Debridement Subcutaneous -Post Debridement Size (cm) - Length 3 -Post Debridement Size (cm) - Width 2.1 -Post Debridement Size (cm) - Depth 0.1 -Total Square Cm 6.3 -Wound/Ulcer Outcome Not Healed -Ulcer Cleansing Rinsed/ Irrigated with Saline -Foul Odor after Cleansing No -Bioengineered Tissue Yes -Type of bioengineered Tissue EPIFIX -Expiration Date 11/05/22 -Product Lot Number [id number] -Percent Used 100 -Saline Lot Number [id number] -Bleeding Controlled with Pressure -Treatment Response Procedure Tolerated Well Pain Scale: 0-10 Numeric Is Patient Pain Free? Yes Wound debrided: toe Laterality: Right Wound Grade/Stage: grade 1 Type of Debridement: Excisional debridement Anesthesia Used: 4% Lidocaine Solution Depth: in the subcutaneous layer Percentage of wound debrided: 100 Instrument Used: #15 blade Tissue Removed: fibrous, devitalized subcutaneous, biofilm, slough Severity: Fat Layer Exposed Amount of bleeding with debridement: Mild Bleeding Controlled with: Pressure Patient tolerated procedure well - Additional Wound Wound debrided: heel Laterality: Right Wound Grade/Stage: grade 3 Type of Debridement: Excisional debridement Anesthesia Used: 4% Lidocaine Solution Depth: in the subcutaneous layer Percentage of wound debrided: 100 Instrument Used: #15 blade Tissue Removed: fibrous, devitalized subcutaneous, biofilm, slough Severity: Fat Layer Exposed Amount of bleeding with debridement: Mild Bleeding Controlled with: Pressure Patient tolerated procedure: Patient tolerated procedure well Assessment/Plan Active Problems Ulcer of right lower extremity with fat layer exposed (Chronic) Ulcer of left lower extremity, limited to breakdown of skin (Chronic) Complete below knee amputation of left lower extremity (Chronic) Morbid obesity (Chronic) Chronic kidney disease (CKD) (Chronic) Type 2 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with diabetic polyneuropathy (Chronic) Malnutrition (Chronic) Lymphedema (Chronic) Edema of both legs (Chronic) Assessment: ulcer right forefoot - returned (digits 2). right heel ulcer muscle involved and exposed fascia without infection noted today (previous grade 3); s/p surgical debridement and application of advance wound care products (amniofil and epicord). Left below-knee amputation sub-hemorrhagic tissue with continued weeping noted; no infection. Lymphedema. Ulcer left stump site with skin layer exposed, no infection. Chronic lower extremity edema and venous insufficiency. Morbid obesity. Type 2 diabetes uncontrolled with peripheral neuropathy. CKD. Hypertension. Left below-knee amputation. Malnutrition. Delayed wound healing. Nonadherence to treatment plan Plan: I reviewed and discussed his case debridement done as documented above in the clinical panel, procedure was well tolerated. Epifix was applied to the right heel after verbal consent was obtained. No product was wasted in addition was overlap to allow improved incorporation. This was applied according to standard protocol. He tolerated this well. A secondary dressing was applied. leave in place for 1 week. Continue compression and elevate lower extreity when sitting and in bed. Optimal blood sugar contol. Continue protein suppplements and increased protein in diet. To continue hyperbaric oxygen therapy as scheduled on complaint basis. If his left limb continues to have no weeping next week the plan is to progress him into his strength wrap with the intention to progress to his leg prosthetic. To improve compliance with compression pumps. I advised him to at least get a second session even if it is reduced in time each day. He reports he is doing this and I recommend he continues. Follow up in 1 week with at the wound healing center or call sooner if he has any questions or concerns.
[2018-02-09 09:21] LABS: Bedside Glucose 173 mg/dL (70-110)
[2018-02-09 09:23] VITALS: BP 141/75; PULSE 84; RESP 16; TEMP 36.1
--- NOTE | 2018-02-09 10:36 | HBO.PN.PCM_ITS ---
History of Present Illness Date of Service: 02/09/18 Presenting Chief Complaint: Diabetic toe and heel ulcers with necrosis of bone, Brooks Grade 3 DEL BARRIOS is a 57 year old currently undergoing hyperbaric oxygen therapy for diabetic toe and heel ulcers with necrosis of bone, Brooks Grade 3 Progress: The patient appears to be tolerating hyperbaric oxygen therapy well. Today's session represents the 11th such session of hyperbaric oxygen therapy. Tolerance of hyperbaric oxygen therapy: Hyperbaric oxygen therapy was administered as per the facility's protocol. The patient tolerated hyperbaric oxygen therapy well, without complaints or complications. Upon emergence from the hyperbaric chamber, patient's vital signs remained stable. Patient was discharged in good condition. 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) Delayed wound healing (Chronic) Malnutrition (Chronic) Venous insufficiency (Chronic) Lymphedema (Chronic) Edema of both legs (Chronic) GERD (gastroesophageal reflux disease) (Chronic) Hypertension (Chronic) Hyperlipemia (Chronic) Morbid obesity with BMI of 45.0-49.9, adult (Chronic) Hyperlipidemia associated with type 2 diabetes mellitus (Chronic) 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 Allergies/Adverse Reactions: Allergies bee venom protein (honey bee) Allergy (Verified 12/13/17 09:30) Swelling metronidazole [From Flagyl] Allergy (Verified 12/13/17 09:30) Itching Home Medications: Ambulatory Orders Medication Instructions Recorded Atorvastatin Calcium [Lipitor] 10 mg PO QHS 01/08/17 Brimonidine Tartrate 0.2% 1 drop EACH EYE BID 01/08/17 [Brimonidine 0.2% 5Ml Bottle] Ergocalciferol [Vitamin D] 50,000 unit PO FR 01/08/17 Gabapentin [Neurontin] 1,600 mg PO QHS 01/08/17 Gabapentin [Neurontin] 600 mg PO DAILY 01/08/17 Insulin U-500 [Humulin R U-500 105 units SC DINNER 01/08/17 ([facility])] Insulin U-500 [Humulin R U-500 105 units SC LUNCH 01/08/17 ([facility])] Insulin U-500 [Humulin R U-500 160 units SC BREAKFAST 01/08/17 ([facility])] Latanoprost 0.005% [Xalatan 1 drop EACH EYE QHS 01/08/17 Opthalmic] Losartan Potassium [Cozaar] 50 mg PO DAILY 01/08/17 Nebivolol HCl [Bystolic (Beta 10 mg PO DAILY 01/08/17 Akira)] Omeprazole [Prilosec] 40 mg PO DAILY 01/08/17 Acetaminophen [Tylenol Tablet] 650 mg PO Q6H PRN PRN tablet 09/07/17 Clopidogrel Bisulfate [Plavix] 75 mg PO DAILY 09/07/17 Menthol/Lanolin/Calamine/Znox 1 applic TOPICAL 0600,2200 tube 09/21/17 [Calmoseptine Ointment] Nutritional Supplement [Madhu - 1 packet PO BIDCM #60 packet 09/21/17 [place] FLAVOR] Nystatin Powder [Mycostatin Powder] 1 applic TOPICAL 0600,2200 bottle 09/21/17 Ferrous Sulfate [Iron] 325 mg PO BID 10/14/17 Clindamycin HCl 300 mg PO [id number] #40 cap 12/13/17 Maternal Family History: Diabetes Paternal Family History: Hypertension Sibling Family History: Diabetes Smoking Status: Former smoker Physical Exam Vital Signs Temp Pulse Resp BP 95.7 F L 91 18 101/54 L 02/09/18 08:32 02/09/18 08:32 02/09/18 08:32 02/09/18 08:32 General: Alert, Oriented x3, Cooperative, No apparent distress HEENT: Atraumatic Lungs: Normal air movement Cardiovascular: Regular rate Psych/Mental Status: Normal Affect Assessment/Plan Active Problems Ulcer of right lower extremity with fat layer exposed (Chronic) Ulcer of left lower extremity, limited to breakdown of skin (Chronic) Complete below knee amputation of left lower extremity (Chronic) Morbid obesity (Chronic) Chronic kidney disease (CKD) (Chronic) Type 2 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with diabetic polyneuropathy (Chronic) Malnutrition (Chronic) Lymphedema (Chronic) Edema of both legs (Chronic) The patient appears to be tolerating hyperbaric oxygen therapy well, which will be continued as per the patient's medical plan.
[2018-02-09 11:25] LABS: Bedside Glucose 134 mg/dL (70-110)
[2018-02-14 09:19] VITALS: BP 112/58; BP 130/76; PULSE 90; PULSE 92; RESP 16; TEMP 36.1
[2018-02-14 09:20] LABS: Bedside Glucose 157 mg/dL (70-110)
[2018-02-14 11:11] LABS: Bedside Glucose 133 mg/dL (70-110)
--- NOTE | 2018-02-14 21:48 | PCM.HBO.PN ---
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 DEL BARRIOS is a 57 year old currently undergoing hyperbaric oxygen therapy for diabetic toe and heel ulcers with necrosis of bone, Brooks Grade 3 Progress: The patient appears to be tolerating hyperbaric oxygen therapy well. This is his 2nd treatment course and his 12th session of hyperbaric oxygen therapy. Tolerance of hyperbaric oxygen therapy: Hyperbaric oxygen therapy was administered as per the facility's protocol. The patient tolerated hyperbaric oxygen therapy well, without complaints or complications. Upon emergence from the hyperbaric chamber, patient's vital signs remained stable. Patient was discharged in good condition. His blood glucose was 157 before the treatment and 133 after the treatment. 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) Delayed wound healing (Chronic) Malnutrition (Chronic) Venous insufficiency (Chronic) Lymphedema (Chronic) Edema of both legs (Chronic) GERD (gastroesophageal reflux disease) (Chronic) Hypertension (Chronic) Hyperlipemia (Chronic) Morbid obesity with BMI of 45.0-49.9, adult (Chronic) Hyperlipidemia associated with type 2 diabetes mellitus (Chronic) 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 Allergies/Adverse Reactions: Allergies bee venom protein (honey bee) Allergy (Verified 12/13/17 09:30) Swelling metronidazole [From Flagyl] Allergy (Verified 12/13/17 09:30) Itching Home Medications: Ambulatory Orders Medication Instructions Recorded Atorvastatin Calcium [Lipitor] 10 mg PO QHS 01/08/17 Brimonidine Tartrate 0.2% 1 drop EACH EYE BID 01/08/17 [Brimonidine 0.2% 5Ml Bottle] Ergocalciferol [Vitamin D] 50,000 unit PO FR 01/08/17 Gabapentin [Neurontin] 1,600 mg PO QHS 01/08/17 Gabapentin [Neurontin] 600 mg PO DAILY 01/08/17 Insulin U-500 [Humulin R U-500 105 units SC DINNER 01/08/17 ([facility])] Insulin U-500 [Humulin R U-500 105 units SC LUNCH 01/08/17 ([facility])] Insulin U-500 [Humulin R U-500 160 units SC BREAKFAST 01/08/17 ([facility])] Latanoprost 0.005% [Xalatan 1 drop EACH EYE QHS 01/08/17 Opthalmic] Losartan Potassium [Cozaar] 50 mg PO DAILY 01/08/17 Nebivolol HCl [Bystolic (Beta 10 mg PO DAILY 01/08/17 Akira)] Omeprazole [Prilosec] 40 mg PO DAILY 01/08/17 Acetaminophen [Tylenol Tablet] 650 mg PO Q6H PRN PRN tablet 09/07/17 Clopidogrel Bisulfate [Plavix] 75 mg PO DAILY 09/07/17 Menthol/Lanolin/Calamine/Znox 1 applic TOPICAL 0600,2200 tube 09/21/17 [Calmoseptine Ointment] Nutritional Supplement [Madhu - 1 packet PO BIDCM #60 packet 09/21/17 ORANGE FLAVOR] Nystatin Powder [Mycostatin Powder] 1 applic TOPICAL 0600,2200 bottle 09/21/17 Ferrous Sulfate [Iron] 325 mg PO BID 10/14/17 Clindamycin HCl 300 mg PO [id number] #40 cap 12/13/17 Maternal Family History: Diabetes Paternal Family History: Hypertension Sibling Family History: Diabetes Smoking Status: Former smoker Physical Exam Vital Signs Temp Pulse Resp BP 96.9 F L 92 16 130/76 H 02/14/18 09:19 02/14/18 09:19 02/14/18 09:19 02/14/18 09:19 Assessment/Plan Active Problems Ulcer of right lower extremity with fat layer exposed (Chronic) Ulcer of left lower extremity, limited to breakdown of skin (Chronic) Complete below knee amputation of left lower extremity (Chronic) Morbid obesity (Chronic) Chronic kidney disease (CKD) (Chronic) Type 2 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with diabetic polyneuropathy (Chronic) Malnutrition (Chronic) Lymphedema (Chronic) Edema of both legs (Chronic)
[2018-02-15 10:21] LABS: Bedside Glucose 271 mg/dL (70-110)
[2018-02-15 10:30] VITALS: BP 110/82; BP 123/57; PULSE 87; PULSE 93; RESP 16; TEMP 35.8; TEMP 36.1
[2018-02-15 12:31] LABS: Bedside Glucose 203 mg/dL (70-110)
--- NOTE | 2018-02-15 13:09 | HBO.PN.PCM_ITS ---
History of Present Illness Date of Service: 02/15/18 Presenting Chief Complaint: Diabetic toe and heel ulcers with necrosis of bone, Brooks Grade 3 DEL BARRIOS is a 57 year old currently undergoing hyperbaric oxygen therapy for diabetic toe and heel ulcers with necrosis of bone, Brooks Grade 3 Progress: The patient appears to be tolerating hyperbaric oxygen therapy well. Today's session represents the 13th such session of hyperbaric oxygen therapy. Tolerance of hyperbaric oxygen therapy: Hyperbaric oxygen therapy was administered as per the facility's protocol. The patient tolerated hyperbaric oxygen therapy well, without complaints or complications. Upon emergence from the hyperbaric chamber, patient's vital signs remained stable. Patient was discharged in good condition. 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) Delayed wound healing (Chronic) Malnutrition (Chronic) Venous insufficiency (Chronic) Lymphedema (Chronic) Edema of both legs (Chronic) GERD (gastroesophageal reflux disease) (Chronic) Hypertension (Chronic) Hyperlipemia (Chronic) Morbid obesity with BMI of 45.0-49.9, adult (Chronic) Hyperlipidemia associated with type 2 diabetes mellitus (Chronic) 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 Allergies/Adverse Reactions: Allergies bee venom protein (honey bee) Allergy (Verified 12/13/17 09:30) Swelling metronidazole [From Flagyl] Allergy (Verified 12/13/17 09:30) Itching Home Medications: Ambulatory Orders Medication Instructions Recorded Atorvastatin Calcium [Lipitor] 10 mg PO QHS 01/08/17 Brimonidine Tartrate 0.2% 1 drop EACH EYE BID 01/08/17 [Brimonidine 0.2% 5Ml Bottle] Ergocalciferol [Vitamin D] 50,000 unit PO FR 01/08/17 Gabapentin [Neurontin] 1,600 mg PO QHS 01/08/17 Gabapentin [Neurontin] 600 mg PO DAILY 01/08/17 Insulin U-500 [Humulin R U-500 105 units SC DINNER 01/08/17 ([facility])] Insulin U-500 [Humulin R U-500 105 units SC LUNCH 01/08/17 ([facility])] Insulin U-500 [Humulin R U-500 160 units SC BREAKFAST 01/08/17 ([facility])] Latanoprost 0.005% [Xalatan 1 drop EACH EYE QHS 01/08/17 Opthalmic] Losartan Potassium [Cozaar] 50 mg PO DAILY 01/08/17 Nebivolol HCl [Bystolic (Beta 10 mg PO DAILY 01/08/17 Akira)] Omeprazole [Prilosec] 40 mg PO DAILY 01/08/17 Acetaminophen [Tylenol Tablet] 650 mg PO Q6H PRN PRN tablet 09/07/17 Clopidogrel Bisulfate [Plavix] 75 mg PO DAILY 09/07/17 Menthol/Lanolin/Calamine/Znox 1 applic TOPICAL 0600,2200 tube 09/21/17 [Calmoseptine Ointment] Nutritional Supplement [Madhu - 1 packet PO BIDCM #60 packet 09/21/17 ORANGE FLAVOR] Nystatin Powder [Mycostatin Powder] 1 applic TOPICAL 0600,2200 bottle 09/21/17 Ferrous Sulfate [Iron] 325 mg PO BID 10/14/17 Clindamycin HCl 300 mg PO [id number] #40 cap 12/13/17 Maternal Family History: Diabetes Paternal Family History: Hypertension Sibling Family History: Diabetes Smoking Status: Former smoker Physical Exam Vital Signs Temp Pulse Resp BP 96.5 F L 93 16 110/82 H 02/15/18 10:30 02/15/18 10:30 02/15/18 10:30 02/15/18 10:30 General: Alert, Oriented x3, Cooperative, No apparent distress, Well developed, Well nourished HEENT: Atraumatic, PERRLA, EOMI, Normocephalic Lungs: Normal air movement Psych/Mental Status: Normal Affect, Appropriate, Alert and oriented to time, place, person, mood and affect Assessment/Plan Active Problems Ulcer of right lower extremity with fat layer exposed (Chronic) Ulcer of left lower extremity, limited to breakdown of skin (Chronic) Complete below knee amputation of left lower extremity (Chronic) Morbid obesity (Chronic) Chronic kidney disease (CKD) (Chronic) Type 2 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with diabetic polyneuropathy (Chronic) Malnutrition (Chronic) Lymphedema (Chronic) Edema of both legs (Chronic) The patient appears to be tolerating hyperbaric oxygen therapy well, which will be continued as per the patient's medical plan.
[2018-02-16 08:17] VITALS: BP 117/56; PULSE 88; RESP 18; TEMP 35.7
[2018-02-16 09:21] VITALS: BP 146/74; PULSE 83; RESP 18; TEMP 35.8
[2018-02-16 09:25] LABS: Bedside Glucose 129 mg/dL (70-110)
--- NOTE | 2018-02-16 09:29 | PCM.WC.PN ---
(1) Ulcer of right lower extremity with fat layer exposed Status: Chronic Current Visit: Yes Code(s): L97.912 - Non-pressure chronic ulcer of unspecified part of right lower leg with fat layer exposed (2) Ulcer of left lower extremity, limited to breakdown of skin Status: Chronic Current Visit: Yes Code(s): L97.921 - Non-pressure chronic ulcer of unspecified part of left lower leg limited to breakdown of skin (3) Complete below knee amputation of left lower extremity Status: Chronic Current Visit: Yes Qualifiers: Code(s): S88.112A - Complete traumatic amputation at level between knee and ankle, left lower leg, initial encounter (4) Morbid obesity Status: Chronic Current Visit: Yes Code(s): E66.01 - Morbid (severe) obesity due to excess calories (5) Chronic kidney disease (CKD) Status: Chronic Current Visit: Yes Qualifiers: Code(s): N18.9 - Chronic kidney disease, unspecified (6) Type 2 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with diabetic polyneuropathy Status: Chronic Current Visit: Yes Code(s): E11.42 - Type 2 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with diabetic polyneuropathy (7) Malnutrition Status: Chronic Current Visit: Yes Code(s): E46 - Unspecified protein-calorie malnutrition (8) Lymphedema Status: Chronic Current Visit: Yes Code(s): I89.0 - Lymphedema, not elsewhere classified (9) Edema of both legs Status: Chronic Current Visit: Yes Code(s): R60.0 - Localized edema Type of Wound Date of Service: 02/16/18 Chief Complaint: Right heel and toe ulcers History of Wound: 57-year-old white male returns to clinic for follow-up of bilateral leg ulcers and right foot ulcers. He denies fever, chill, nausea, vomiting, loss of appetite. He underwent surgical debridement application of advanced wound care products, Amniofil and epi fix September 14, 2017. She has also been having serial applications of epi fix in the wound healing center. He is increased with elevation at home and his leg size is significantly reduced. He relates he does want full compression pump session daily and does a second session of approximately 15 minutes. Presents in a wheelchair today. He is amenable to undergo hyperbaric oxygen therapy and been attending the sessions as advised; he has been tolerating the sessions. He denies odors or redness. He has demonstrated significant delays in healing. He relates his left stump site is still leaking fluid. Progress of Wound: Improving - Physical Exam Vital Signs Temp Pulse Resp BP 96.2 F L 88 18 117/56 L 02/16/18 08:17 02/16/18 08:17 02/16/18 08:17 02/16/18 08:17 General: Alert, Oriented x3, Cooperative HEENT: Atraumatic Extremities: No cyanosis, Capillary Refill Less than 3 Seconds, No Calf Tenderness - Negative Harry and Badillo right, Diminished Peripheral Pulses, Edema - Decreased bilateral lower limbs, - - Left below-knee amputation Skin: Ulcer/ Wound - No purulence, no erythema, streaking, no odor, no infection. The peripheral skin is atrophic. There is peripheral epithelialization that is significant to the right heel., - - Decreased serous weeping noted to the left below-knee amputation stump site Wound Measurements and Assessment WC - Nurse 1 - General Ulcer Measurement Start: 02/08/18 10:34 Freq: Status: Active Protocol: Activity Type Activity Date Activity User E-Sign Co-Sign Detail Recorded Client Recorded Date Recorded By Document 02/16/18 08:17 [id number] 02/16/18 08:29 02/16/18 08:17 Wound Center Nurse 1 [Ulcer Assessment] #13 R Med Heel -Combined with other wound No -Current Size (cm) - Length 3 -Current Size (cm) - Width 2 -Current Size (cm) - Depth 0.1 -Total Square Cm 6 -Photo Taken Yes -Epithelialization Small 1-33% -Tunneling No -Undermining/Tunneling No -Circular Undermining No -Exudate Amt Medium (34-66%) -Exudate Type Serosanguineous -Wound Margin Flat & Intact -Granulation Amt Medium (34-66%) -Granulation Quality [place] -Slough/Fibrin Yes -Necrosis Amt Medium (34-66%) -Necrotic Tissue Type Adherent Slough -Structure Exposed N/A -Texture (Martha-wound Skin Appearance) Assessed Callus Localized Edema -Moisture (Martha-wound Skin Appearance Assessed ) Dry/Scaly -Color (Martha-wound Skin Appearance) Assessed -Temperature (Martha-wound Skin No Abnormality Appearance) (Pt Warm) -Tenderness on Palpation (Martha-wound No Skin Appearance) -Ulcer Cleansing Wound Cleanser -Foul Odor after Cleansing No -Anesthetic Used 5% Lidocaine Gel #21 Right Foot-Toes w/Metatarsal Head circumfrential -Combined with other wound No -Current Size (cm) - Length 4 -Current Size (cm) - Width 1.5 -Current Size (cm) - Depth 0.1 -Total Square Cm 6.0 -Photo Taken Yes -Epithelialization Small 1-33% -Tunneling No -Undermining/Tunneling No -Circular Undermining No -Exudate Amt Medium (34-66%) -Exudate Type Serosanguineous -Wound Margin Flat & Intact -Granulation Amt Medium (34-66%) -Granulation Quality [place] -Slough/Fibrin Yes -Necrosis Amt Medium (34-66%) -Necrotic Tissue Type Adherent Slough -Structure Exposed N/A -Texture (Martha-wound Skin Appearance) Assessed Excoriation Localized Edema -Moisture (Martha-wound Skin Appearance Assessed ) Weeping -Color (Martha-wound Skin Appearance) Assessed -Temperature (Martha-wound Skin No Abnormality Appearance) (Pt Warm) -Tenderness on Palpation (Martha-wound No Skin Appearance) -Ulcer Cleansing Wound Cleanser -Foul Odor after Cleansing No -Anesthetic Used 4% Lidocaine Solution [Edema Assessment] -Lower Limb Edema Present Yes -Right Calf (cm) 38.0 -Right Ankle (cm) 30.2 -Left Calf (cm) 45.6 WC - Nurse 2 - General Ulcer CM Notes Start: 02/08/18 10:34 Freq: Status: Active Protocol: Activity Type Activity Date Activity User E-Sign Co-Sign Detail Recorded Client Recorded Date Recorded By Document 02/16/18 08:42 ANUP [id number] 02/16/18 08:46 ANUP 02/16/18 08:42 Wound Center Nurse 2 [Procedure/Treatment] #13 R Med Heel -Time 08:44 -Correct Patient Yes -Correct Side, Site, Position Yes -Correct Procedure Yes -Procedure Performed Yes -Type of Procedure Debridement -Clinical Debridement Subcutaneous -Post Debridement Size (cm) - Length 3.1 -Post Debridement Size (cm) - Width 2 -Post Debridement Size (cm) - Depth 0.1 -Total Square Cm 6.2 -Wound/Ulcer Outcome Not Healed -Ulcer Cleansing Rinsed/ Irrigated with Saline -Foul Odor after Cleansing No -Bioengineered Tissue Yes -Type of bioengineered Tissue EPIFIX -Expiration Date 11/05/22 -Product Lot Number [id number] -Percent Used 100 -Saline Lot Number [id number] -Bleeding Controlled with Pressure -Treatment Response Procedure Tolerated Well #21 Right Foot-Toes w/Metatarsal Head circumfrential -Time 08:45 -Correct Patient Yes -Correct Side, Site, Position Yes -Correct Procedure Yes -Procedure Performed Yes -Type of Procedure Debridement -Clinical Debridement Subcutaneous -Post Debridement Size (cm) - Length 4 -Post Debridement Size (cm) - Width 1.6 -Post Debridement Size (cm) - Depth 0.1 -Total Square Cm 6.4 -Wound/Ulcer Outcome Not Healed -Ulcer Cleansing Rinsed/ Irrigated with Saline -Foul Odor after Cleansing No -Bioengineered Tissue Yes -Type of bioengineered Tissue EPIFIX -Expiration Date 11/05/22 -Product Lot Number [id number] -Percent Used 100 -Saline Lot Number [id number] -Bleeding Controlled with Pressure -Treatment Response Procedure Tolerated Well [See Physician Procedure note for Specifics] Pain Scale: 0-10 Numeric [Pain] -Is Patient Pain Free? Yes Musculoskeletal: No Tenderness to Palpation of Joints or Extremities, Muscle Wasting Neurological: - - Lack of epicritic sensation light touch Psych/Mental Status: Normal Affect, Appropriate Debridement Note Post-Debridement Measurements/Treatment WC - Nurse 2 - General Ulcer CM Notes Start: 02/08/18 10:34 Freq: Status: Active Protocol: Activity Type Activity Date Activity User E-Sign Co-Sign Detail Recorded Client Recorded Date Recorded By Document 02/09/18 08:47 [id number] 02/09/18 08:49 Document 02/16/18 08:42 [id number] 02/16/18 08:46 02/09/18 02/16/18 08:47 08:42 Wound Center Nurse 2 #13 R Med Heel -Time 08:47 08:44 -Correct Patient Yes Yes -Correct Side, Site, Position Yes Yes -Correct Procedure Yes Yes -Procedure Performed Yes Yes -Type of Procedure Debridement Debridement -Clinical Debridement Subcutaneous Subcutaneous -Post Debridement Size (cm) - Length 2.3 3.1 -Post Debridement Size (cm) - Width 3.1 2 -Post Debridement Size (cm) - Depth 0.1 0.1 -Total Square Cm 7.13 6.2 -Wound/Ulcer Outcome Not Healed Not Healed -Ulcer Cleansing Wound Cleanser Rinsed/ Irrigated with Saline -Foul Odor after Cleansing No No -Bioengineered Tissue Yes Yes -Type of bioengineered Tissue EPIFIX EPIFIX -Expiration Date 11/05/22 11/05/22 -Product Lot Number [id number] -Percent Used 100 100 -Saline Lot Number [id number] -Bleeding Controlled with Pressure Pressure -Treatment Response Procedure Procedure Tolerated Well Tolerated Well #21 Right Foot-Toes w/Metatarsal Head circumfrential -Time 08:48 08:45 -Correct Patient Yes Yes -Correct Side, Site, Position Yes Yes -Correct Procedure Yes Yes -Procedure Performed Yes Yes -Type of Procedure Debridement Debridement -Clinical Debridement Subcutaneous Subcutaneous -Post Debridement Size (cm) - Length 3 4 -Post Debridement Size (cm) - Width 2.1 1.6 -Post Debridement Size (cm) - Depth 0.1 0.1 -Total Square Cm 6.3 6.4 -Wound/Ulcer Outcome Not Healed Not Healed -Ulcer Cleansing Rinsed/ Rinsed/ Irrigated with Irrigated with Saline Saline -Foul Odor after Cleansing No No -Bioengineered Tissue Yes Yes -Type of bioengineered Tissue EPIFIX EPIFIX -Expiration Date 11/05/22 11/05/22 -Product Lot Number [id number] -Percent Used 100 100 -Saline Lot Number [id number] -Bleeding Controlled with Pressure Pressure -Treatment Response Procedure Procedure Tolerated Well Tolerated Well Pain Scale: 0-10 Numeric Is Patient Pain Free? Yes Yes Wound debrided: heel Laterality: Right Wound Grade/Stage: grade 3 Type of Debridement: Excisional debridement Anesthesia Used: 4% Lidocaine Solution Depth: in the subcutaneous layer Percentage of wound debrided: 100 Instrument Used: #15 blade Tissue Removed: fibrous, devitalized subcutaneous, biofilm, slough Severity: Fat Layer Exposed Amount of bleeding with debridement: Mild Bleeding Controlled with: Pressure Patient tolerated procedure well - Additional Wound Wound debrided: toe Laterality: Right Wound Grade/Stage: grade 1 Type of Debridement: Excisional debridement Anesthesia Used: 4% Lidocaine Solution Depth: in the subcutaneous layer Percentage of wound debrided: 100 Instrument Used: #15 blade Tissue Removed: fibrous, devitalized subcutaneous, biofilm, slough Severity: Fat Layer Exposed Amount of bleeding with debridement: Mild Bleeding Controlled with: Pressure Patient tolerated procedure: Patient tolerated procedure well Assessment/Plan Active Problems Ulcer of right lower extremity with fat layer exposed (Chronic) Ulcer of left lower extremity, limited to breakdown of skin (Chronic) Complete below knee amputation of left lower extremity (Chronic) Morbid obesity (Chronic) Chronic kidney disease (CKD) (Chronic) Type 2 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with diabetic polyneuropathy (Chronic) Malnutrition (Chronic) Lymphedema (Chronic) Edema of both legs (Chronic) Assessment: ulcer right forefoot (digit 2). right heel ulcer muscle involved and exposed fascia without infection noted today (previous grade 3); s/p surgical debridement and application of advance wound care products (amniofil and epicord). Left below-knee amputation sub-hemorrhagic tissue with continued weeping noted; no infection. Lymphedema. Ulcer left stump site with skin layer exposed, no infection. Chronic lower extremity edema and venous insufficiency. Morbid obesity. Type 2 diabetes uncontrolled with peripheral neuropathy. CKD. Hypertension. Left below-knee amputation. Malnutrition. Delayed wound healing. Nonadherence to treatment plan Plan: I reviewed and discussed his case debridement done as documented above in the clinical panel, procedure was well tolerated. Epifix was applied to the right heel after verbal consent was obtained. No product was wasted in addition was overlap to allow improved incorporation. This was applied according to standard protocol. He tolerated this well. A secondary dressing was applied. leave in place for 1 week. Continue compression and elevate lower extreity when sitting and in bed. Optimal blood sugar contol. Continue protein suppplements and increased protein in diet. To continue hyperbaric oxygen therapy as scheduled on complaint basis. If his left limb continues to have no weeping next week the plan is to progress him into his shrink wrap with the intention to progress to his leg prosthetic. This has actually decreased compared to last week. To improve compliance with compression pumps. I advised him to at least get a second session even if it is reduced in time each day. He reports he is doing this and I recommend he continues. Follow up in 1 week with at the wound healing center or call sooner if he has any questions or concerns.
--- NOTE | 2018-02-16 10:43 | PCM.HBO.PN ---
History of Present Illness Date of Service: 02/16/18 Presenting Chief Complaint: Right heel and toe ulcers DEL ABRRIOS is a 57 year old currently undergoing hyperbaric oxygen therapy for diabetic toe and heel ulcers with necrosis of bone, Brooks Grade 3 Progress: The patient appears to be tolerating hyperbaric oxygen therapy well. Today's session represents the 14th such session of hyperbaric oxygen therapy. Tolerance of hyperbaric oxygen therapy: Hyperbaric oxygen therapy was administered as per the facility's protocol. The patient tolerated hyperbaric oxygen therapy well, without complaints or complications. Upon emergence from the hyperbaric chamber, patient's vital signs remained stable. Patient was discharged in good condition. 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) Delayed wound healing (Chronic) Malnutrition (Chronic) Venous insufficiency (Chronic) Lymphedema (Chronic) Edema of both legs (Chronic) GERD (gastroesophageal reflux disease) (Chronic) Hypertension (Chronic) Hyperlipemia (Chronic) Morbid obesity with BMI of 45.0-49.9, adult (Chronic) Hyperlipidemia associated with type 2 diabetes mellitus (Chronic) 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 Allergies/Adverse Reactions: Allergies bee venom protein (honey bee) Allergy (Verified 12/13/17 09:30) Swelling metronidazole [From Flagyl] Allergy (Verified 12/13/17 09:30) Itching Home Medications: Ambulatory Orders Medication Instructions Recorded Atorvastatin Calcium [Lipitor] 10 mg PO QHS 01/08/17 Brimonidine Tartrate 0.2% 1 drop EACH EYE BID 01/08/17 [Brimonidine 0.2% 5Ml Bottle] Ergocalciferol [Vitamin D] 50,000 unit PO FR 01/08/17 Gabapentin [Neurontin] 1,600 mg PO QHS 01/08/17 Gabapentin [Neurontin] 600 mg PO DAILY 01/08/17 Insulin U-500 [Humulin R U-500 105 units SC DINNER 01/08/17 ([facility])] Insulin U-500 [Humulin R U-500 105 units SC LUNCH 01/08/17 ([facility])] Insulin U-500 [Humulin R U-500 160 units SC BREAKFAST 01/08/17 ([facility])] Latanoprost 0.005% [Xalatan 1 drop EACH EYE QHS 01/08/17 Opthalmic] Losartan Potassium [Cozaar] 50 mg PO DAILY 01/08/17 Nebivolol HCl [Bystolic (Beta 10 mg PO DAILY 01/08/17 Akira)] Omeprazole [Prilosec] 40 mg PO DAILY 01/08/17 Acetaminophen [Tylenol Tablet] 650 mg PO Q6H PRN PRN tablet 09/07/17 Clopidogrel Bisulfate [Plavix] 75 mg PO DAILY 09/07/17 Menthol/Lanolin/Calamine/Znox 1 applic TOPICAL 0600,2200 tube 09/21/17 [Calmoseptine Ointment] Nutritional Supplement [Madhu - 1 packet PO BIDCM #60 packet 09/21/17 [facility] FLAVOR] Nystatin Powder [Mycostatin Powder] 1 applic TOPICAL 0600,2200 bottle 09/21/17 Ferrous Sulfate [Iron] 325 mg PO BID 10/14/17 Clindamycin HCl 300 mg PO [id number] #40 cap 12/13/17 Maternal Family History: Diabetes Paternal Family History: Hypertension Sibling Family History: Diabetes Smoking Status: Former smoker Physical Exam Vital Signs Temp Pulse Resp BP 96.2 F L 88 18 117/56 L 02/16/18 08:17 02/16/18 08:17 02/16/18 08:17 02/16/18 08:17 General: Alert, Oriented x3, Cooperative, No apparent distress HEENT: Atraumatic Lungs: Normal air movement Psych/Mental Status: Normal Affect Assessment/Plan Active Problems Ulcer of right lower extremity with fat layer exposed (Chronic) Ulcer of left lower extremity, limited to breakdown of skin (Chronic) Complete below knee amputation of left lower extremity (Chronic) Morbid obesity (Chronic) Chronic kidney disease (CKD) (Chronic) Type 2 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with diabetic polyneuropathy (Chronic) Malnutrition (Chronic) Lymphedema (Chronic) Edema of both legs (Chronic) The patient appears to be tolerating hyperbaric oxygen therapy well, which will be continued as per the patient's medical plan.
[2018-02-16 12:25] LABS: Bedside Glucose 92 mg/dL (70-110)
[2018-02-17 09:41] LABS: Bedside Glucose 186 mg/dL (70-110)
[2018-02-17 09:42] VITALS: BP 130/70; BP 134/68; PULSE 83; PULSE 87; RESP 16; RESP 18; TEMP 35.7; TEMP 36.1
--- NOTE | 2018-02-17 11:22 | PCM.HBO.PN ---
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 Today's session represents the 15th such session of hyperbaric oxygen therapy. Tolerance of hyperbaric oxygen therapy: Hyperbaric oxygen therapy was administered as per the facility's protocol. The patient tolerated hyperbaric oxygen therapy well, without complaints or complications. Upon emergence from the hyperbaric chamber, patient's vital signs remained stable. Patient was discharged in good condition. 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) Delayed wound healing (Chronic) Malnutrition (Chronic) Venous insufficiency (Chronic) Lymphedema (Chronic) Edema of both legs (Chronic) GERD (gastroesophageal reflux disease) (Chronic) Hypertension (Chronic) Hyperlipemia (Chronic) Morbid obesity with BMI of 45.0-49.9, adult (Chronic) Hyperlipidemia associated with type 2 diabetes mellitus (Chronic) 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 Allergies/Adverse Reactions: Allergies bee venom protein (honey bee) Allergy (Verified 12/13/17 09:30) Swelling metronidazole [From Flagyl] Allergy (Verified 12/13/17 09:30) Itching Home Medications: Ambulatory Orders Medication Instructions Recorded Atorvastatin Calcium [Lipitor] 10 mg PO QHS 01/08/17 Brimonidine Tartrate 0.2% 1 drop EACH EYE BID 01/08/17 [Brimonidine 0.2% 5Ml Bottle] Ergocalciferol [Vitamin D] 50,000 unit PO FR 01/08/17 Gabapentin [Neurontin] 1,600 mg PO QHS 01/08/17 Gabapentin [Neurontin] 600 mg PO DAILY 01/08/17 Insulin U-500 [Humulin R U-500 105 units SC DINNER 01/08/17 ([facility])] Insulin U-500 [Humulin R U-500 105 units SC LUNCH 01/08/17 ([facility])] Insulin U-500 [Humulin R U-500 160 units SC BREAKFAST 01/08/17 ([facility])] Latanoprost 0.005% [Xalatan 1 drop EACH EYE QHS 01/08/17 Opthalmic] Losartan Potassium [Cozaar] 50 mg PO DAILY 01/08/17 Nebivolol HCl [Bystolic (Beta 10 mg PO DAILY 01/08/17 Akira)] Omeprazole [Prilosec] 40 mg PO DAILY 01/08/17 Acetaminophen [Tylenol Tablet] 650 mg PO Q6H PRN PRN tablet 09/07/17 Clopidogrel Bisulfate [Plavix] 75 mg PO DAILY 09/07/17 Menthol/Lanolin/Calamine/Znox 1 applic TOPICAL 0600,2200 tube 09/21/17 [Calmoseptine Ointment] Nutritional Supplement [Madhu - 1 packet PO BIDCM #60 packet 09/21/17 [place] FLAVOR] Nystatin Powder [Mycostatin Powder] 1 applic TOPICAL 0600,2200 bottle 09/21/17 Ferrous Sulfate [Iron] 325 mg PO BID 10/14/17 Clindamycin HCl 300 mg PO [id number] #40 cap 12/13/17 Maternal Family History: Diabetes Paternal Family History: Hypertension Sibling Family History: Diabetes Smoking Status: Former smoker Physical Exam Vital Signs Temp Pulse Resp BP 96.2 F L 87 18 134/68 H 02/17/18 09:42 02/17/18 09:42 02/17/18 09:42 02/17/18 09:42 General: Alert, Oriented x3, Cooperative, No apparent distress HEENT: Atraumatic Lungs: Normal air movement Psych/Mental Status: Normal Affect Assessment/Plan Active Problems Ulcer of right lower extremity with fat layer exposed (Chronic) Ulcer of left lower extremity, limited to breakdown of skin (Chronic) Complete below knee amputation of left lower extremity (Chronic) Morbid obesity (Chronic) Chronic kidney disease (CKD) (Chronic) Type 2 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with diabetic polyneuropathy (Chronic) Malnutrition (Chronic) Lymphedema (Chronic) Edema of both legs (Chronic) The patient appears to be tolerating hyperbaric oxygen therapy well, which will be continued as per the patient's medical plan.
[2018-02-17 11:46] LABS: Bedside Glucose 139 mg/dL (70-110)
[2018-02-18 09:55] VITALS: BP 132/72; BP 149/73; PULSE 83; PULSE 85; RESP 16; TEMP 35.8; TEMP 35.9
[2018-02-18 10:01] LABS: Bedside Glucose 183 mg/dL (70-110)
--- NOTE | 2018-02-18 11:47 | HBO.PN.PCM_ITS ---
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 Today's session represents the 16th such session of hyperbaric oxygen therapy. Tolerance of hyperbaric oxygen therapy: Hyperbaric oxygen therapy was administered as per the facility's protocol. The patient tolerated hyperbaric oxygen therapy well, without complaints or complications. Upon emergence from the hyperbaric chamber, patient's vital signs remained stable. Patient was discharged in good condition. 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) Delayed wound healing (Chronic) Malnutrition (Chronic) Venous insufficiency (Chronic) Lymphedema (Chronic) Edema of both legs (Chronic) GERD (gastroesophageal reflux disease) (Chronic) Hypertension (Chronic) Hyperlipemia (Chronic) Morbid obesity with BMI of 45.0-49.9, adult (Chronic) Hyperlipidemia associated with type 2 diabetes mellitus (Chronic) 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 Allergies/Adverse Reactions: Allergies bee venom protein (honey bee) Allergy (Verified 12/13/17 09:30) Swelling metronidazole [From Flagyl] Allergy (Verified 12/13/17 09:30) Itching Home Medications: Ambulatory Orders Medication Instructions Recorded Atorvastatin Calcium [Lipitor] 10 mg PO QHS 01/08/17 Brimonidine Tartrate 0.2% 1 drop EACH EYE BID 01/08/17 [Brimonidine 0.2% 5Ml Bottle] Ergocalciferol [Vitamin D] 50,000 unit PO FR 01/08/17 Gabapentin [Neurontin] 1,600 mg PO QHS 01/08/17 Gabapentin [Neurontin] 600 mg PO DAILY 01/08/17 Insulin U-500 [Humulin R U-500 105 units SC DINNER 01/08/17 ([facility])] Insulin U-500 [Humulin R U-500 105 units SC LUNCH 01/08/17 ([facility])] Insulin U-500 [Humulin R U-500 160 units SC BREAKFAST 01/08/17 ([facility])] Latanoprost 0.005% [Xalatan 1 drop EACH EYE QHS 01/08/17 Opthalmic] Losartan Potassium [Cozaar] 50 mg PO DAILY 01/08/17 Nebivolol HCl [Bystolic (Beta 10 mg PO DAILY 01/08/17 Akira)] Omeprazole [Prilosec] 40 mg PO DAILY 01/08/17 Acetaminophen [Tylenol Tablet] 650 mg PO Q6H PRN PRN tablet 09/07/17 Clopidogrel Bisulfate [Plavix] 75 mg PO DAILY 09/07/17 Menthol/Lanolin/Calamine/Znox 1 applic TOPICAL 0600,2200 tube 09/21/17 [Calmoseptine Ointment] Nutritional Supplement [Madhu - 1 packet PO BIDCM #60 packet 09/21/17 [place] FLAVOR] Nystatin Powder [Mycostatin Powder] 1 applic TOPICAL 0600,2200 bottle 09/21/17 Ferrous Sulfate [Iron] 325 mg PO BID 10/14/17 Clindamycin HCl 300 mg PO [id number] #40 cap 12/13/17 Maternal Family History: Diabetes Paternal Family History: Hypertension Sibling Family History: Diabetes Smoking Status: Former smoker Physical Exam Vital Signs Temp Pulse Resp BP 96.5 F L 85 16 132/72 H 02/18/18 09:55 02/18/18 09:55 02/18/18 09:55 02/18/18 09:55 Assessment/Plan Active Problems Ulcer of right lower extremity with fat layer exposed (Chronic) Ulcer of left lower extremity, limited to breakdown of skin (Chronic) Complete below knee amputation of left lower extremity (Chronic) Morbid obesity (Chronic) Chronic kidney disease (CKD) (Chronic) Type 2 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with diabetic polyneuropathy (Chronic) Malnutrition (Chronic) Lymphedema (Chronic) Edema of both legs (Chronic) The patient appears to be tolerating hyperbaric oxygen therapy well, which will be continued as per the patient's medical plan.
[2018-02-18 14:51] LABS: Bedside Glucose 181 mg/dL (70-110)
[2018-02-21 09:30] LABS: Bedside Glucose 261 mg/dL (70-110)
[2018-02-21 09:35] VITALS: BP 114/61; BP 127/85; PULSE 90; PULSE 96; RESP 16; TEMP 36.1; TEMP 36.2
[2018-02-21 11:31] LABS: Bedside Glucose 181 mg/dL (70-110)
--- NOTE | 2018-02-21 23:08 | PCM.HBO.PN ---
History of Present Illness Date of Service: 02/21/18 Presenting Chief Complaint: 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 Progress: The patient appears to be tolerating hyperbaric oxygen therapy well. This is his 2nd treatment course and his 17th session of hyperbaric oxygen therapy. Tolerance of hyperbaric oxygen therapy: Hyperbaric oxygen therapy was administered as per the facility's protocol. The patient tolerated hyperbaric oxygen therapy well, without complaints or complications. Upon emergence from the hyperbaric chamber, patient's vital signs remained stable. Patient was discharged in good condition. His blood glucose was 261 before the treatment and 181 after the treatment. 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) Delayed wound healing (Chronic) Malnutrition (Chronic) Venous insufficiency (Chronic) Lymphedema (Chronic) Edema of both legs (Chronic) GERD (gastroesophageal reflux disease) (Chronic) Hypertension (Chronic) Hyperlipemia (Chronic) Morbid obesity with BMI of 45.0-49.9, adult (Chronic) Hyperlipidemia associated with type 2 diabetes mellitus (Chronic) 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 Allergies/Adverse Reactions: Allergies bee venom protein (honey bee) Allergy (Verified 12/13/17 09:30) Swelling metronidazole [From Flagyl] Allergy (Verified 12/13/17 09:30) Itching Home Medications: Ambulatory Orders Medication Instructions Recorded Atorvastatin Calcium [Lipitor] 10 mg PO QHS 01/08/17 Brimonidine Tartrate 0.2% 1 drop EACH EYE BID 01/08/17 [Brimonidine 0.2% 5Ml Bottle] Ergocalciferol [Vitamin D] 50,000 unit PO FR 01/08/17 Gabapentin [Neurontin] 1,600 mg PO QHS 01/08/17 Gabapentin [Neurontin] 600 mg PO DAILY 01/08/17 Insulin U-500 [Humulin R U-500 105 units SC DINNER 01/08/17 ([facility])] Insulin U-500 [Humulin R U-500 105 units SC LUNCH 01/08/17 ([facility])] Insulin U-500 [Humulin R U-500 160 units SC BREAKFAST 01/08/17 ([facility])] Latanoprost 0.005% [Xalatan 1 drop EACH EYE QHS 01/08/17 Opthalmic] Losartan Potassium [Cozaar] 50 mg PO DAILY 01/08/17 Nebivolol HCl [Bystolic (Beta 10 mg PO DAILY 01/08/17 Akira)] Omeprazole [Prilosec] 40 mg PO DAILY 01/08/17 Acetaminophen [Tylenol Tablet] 650 mg PO Q6H PRN PRN tablet 09/07/17 Clopidogrel Bisulfate [Plavix] 75 mg PO DAILY 09/07/17 Menthol/Lanolin/Calamine/Znox 1 applic TOPICAL 0600,2200 tube 09/21/17 [Calmoseptine Ointment] Nutritional Supplement [Madhu - 1 packet PO BIDCM #60 packet 09/21/17 [place] FLAVOR] Nystatin Powder [Mycostatin Powder] 1 applic TOPICAL 0600,2200 bottle 09/21/17 Ferrous Sulfate [Iron] 325 mg PO BID 10/14/17 Clindamycin HCl 300 mg PO [id number] #40 cap 12/13/17 Maternal Family History: Diabetes Paternal Family History: Hypertension Sibling Family History: Diabetes Smoking Status: Former smoker Physical Exam Vital Signs Temp Pulse Resp BP 97 F L 96 16 114/61 02/21/18 09:35 02/21/18 09:35 02/21/18 09:35 02/21/18 09:35 Assessment/Plan Active Problems Ulcer of right lower extremity with fat layer exposed (Chronic) Ulcer of left lower extremity, limited to breakdown of skin (Chronic) Morbid obesity (Chronic) Venous stasis dermatitis (Chronic) Type 2 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with diabetic polyneuropathy (Chronic) Delayed wound healing (Chronic) Malnutrition (Chronic)
[2018-02-22 09:26] VITALS: BP 152/72; BP 166/82; PULSE 88; RESP 16; RESP 18; TEMP 35.9; TEMP 36.1
[2018-02-22 09:31] LABS: Bedside Glucose 166 mg/dL (70-110)
[2018-02-22 11:30] LABS: Bedside Glucose 169 mg/dL (70-110)
--- NOTE | 2018-02-22 14:56 | PCM.HBO.PN ---
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 DEL BARRIOS is a 57 year old currently undergoing hyperbaric oxygen therapy for diabetic toe and heel ulcers with necrosis of bone, Brooks Grade 3 Progress: The patient appears to be tolerating hyperbaric oxygen therapy well. This is his 2nd treatment course and his 18th session of hyperbaric oxygen therapy. Tolerance of hyperbaric oxygen therapy: Hyperbaric oxygen therapy was administered as per the facility's protocol. The patient tolerated hyperbaric oxygen therapy well, without complaints or complications. Upon emergence from the hyperbaric chamber, the patient's vital signs remained stable. Patient was discharged in good condition. 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) Delayed wound healing (Chronic) Malnutrition (Chronic) Venous insufficiency (Chronic) Lymphedema (Chronic) Edema of both legs (Chronic) GERD (gastroesophageal reflux disease) (Chronic) Hypertension (Chronic) Hyperlipemia (Chronic) Morbid obesity with BMI of 45.0-49.9, adult (Chronic) Hyperlipidemia associated with type 2 diabetes mellitus (Chronic) 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 Allergies/Adverse Reactions: Allergies bee venom protein (honey bee) Allergy (Verified 12/13/17 09:30) Swelling metronidazole [From Flagyl] Allergy (Verified 12/13/17 09:30) Itching Home Medications: Ambulatory Orders Medication Instructions Recorded Atorvastatin Calcium [Lipitor] 10 mg PO QHS 01/08/17 Brimonidine Tartrate 0.2% 1 drop EACH EYE BID 01/08/17 [Brimonidine 0.2% 5Ml Bottle] Ergocalciferol [Vitamin D] 50,000 unit PO FR 01/08/17 Gabapentin [Neurontin] 1,600 mg PO QHS 01/08/17 Gabapentin [Neurontin] 600 mg PO DAILY 01/08/17 Insulin U-500 [Humulin R U-500 105 units SC DINNER 01/08/17 ([facility])] Insulin U-500 [Humulin R U-500 105 units SC LUNCH 01/08/17 ([facility])] Insulin U-500 [Humulin R U-500 160 units SC BREAKFAST 01/08/17 ([facility])] Latanoprost 0.005% [Xalatan 1 drop EACH EYE QHS 01/08/17 Opthalmic] Losartan Potassium [Cozaar] 50 mg PO DAILY 01/08/17 Nebivolol HCl [Bystolic (Beta 10 mg PO DAILY 01/08/17 Akira)] Omeprazole [Prilosec] 40 mg PO DAILY 01/08/17 Acetaminophen [Tylenol Tablet] 650 mg PO Q6H PRN PRN tablet 09/07/17 Clopidogrel Bisulfate [Plavix] 75 mg PO DAILY 09/07/17 Menthol/Lanolin/Calamine/Znox 1 applic TOPICAL 0600,2200 tube 09/21/17 [Calmoseptine Ointment] Nutritional Supplement [Madhu - 1 packet PO BIDCM #60 packet 09/21/17 ORANGE FLAVOR] Nystatin Powder [Mycostatin Powder] 1 applic TOPICAL 0600,2200 bottle 09/21/17 Ferrous Sulfate [Iron] 325 mg PO BID 10/14/17 Clindamycin HCl 300 mg PO [id number] #40 cap 12/13/17 Maternal Family History: Diabetes Paternal Family History: Hypertension Sibling Family History: Diabetes Smoking Status: Former smoker Physical Exam Vital Signs Temp Pulse Resp BP 96.7 F L 88 18 152/72 H 02/22/18 09:26 02/22/18 09:26 02/22/18 09:26 02/22/18 09:26 General: Alert, Oriented x3, Cooperative, No apparent distress, Well developed, Well nourished HEENT: Atraumatic, PERRLA, EOMI, Normocephalic Lungs: Normal air movement Psych/Mental Status: Normal Affect, Appropriate, Alert and oriented to time, place, person, mood and affect Assessment/Plan Active Problems Ulcer of right lower extremity with fat layer exposed (Chronic) Ulcer of left lower extremity, limited to breakdown of skin (Chronic) Complete below knee amputation of left lower extremity (Chronic) Morbid obesity (Chronic) Chronic kidney disease (CKD) (Chronic) Type 2 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with diabetic polyneuropathy (Chronic) Malnutrition (Chronic) Lymphedema (Chronic) Edema of both legs (Chronic) The patient is tolerating hyperbaric oxygen therapy well, which will be continued as per the patient's medical plan.
--- NOTE | 2018-02-22 15:01 | HBO.PN.PCM_ITS ---
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 DEL BARRIOS is a 57 year old currently undergoing hyperbaric oxygen therapy for diabetic toe and heel ulcers with necrosis of bone, Brooks Grade 3 Progress: The patient appears to be tolerating hyperbaric oxygen therapy well. This is his 2nd treatment course and his 18th session of hyperbaric oxygen therapy. Tolerance of hyperbaric oxygen therapy: Hyperbaric oxygen therapy was administered as per the facility's protocol. The patient tolerated hyperbaric oxygen therapy well, without complaints or complications. Upon emergence from the hyperbaric chamber, the patient's vital signs remained stable. Patient was discharged in good condition. 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) Delayed wound healing (Chronic) Malnutrition (Chronic) Venous insufficiency (Chronic) Lymphedema (Chronic) Edema of both legs (Chronic) GERD (gastroesophageal reflux disease) (Chronic) Hypertension (Chronic) Hyperlipemia (Chronic) Morbid obesity with BMI of 45.0-49.9, adult (Chronic) Hyperlipidemia associated with type 2 diabetes mellitus (Chronic) 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 Allergies/Adverse Reactions: Allergies bee venom protein (honey bee) Allergy (Verified 12/13/17 09:30) Swelling metronidazole [From Flagyl] Allergy (Verified 12/13/17 09:30) Itching Home Medications: Ambulatory Orders Medication Instructions Recorded Atorvastatin Calcium [Lipitor] 10 mg PO QHS 01/08/17 Brimonidine Tartrate 0.2% 1 drop EACH EYE BID 01/08/17 [Brimonidine 0.2% 5Ml Bottle] Ergocalciferol [Vitamin D] 50,000 unit PO FR 01/08/17 Gabapentin [Neurontin] 1,600 mg PO QHS 01/08/17 Gabapentin [Neurontin] 600 mg PO DAILY 01/08/17 Insulin U-500 [Humulin R U-500 105 units SC DINNER 01/08/17 ([facility])] Insulin U-500 [Humulin R U-500 105 units SC LUNCH 01/08/17 ([facility])] Insulin U-500 [Humulin R U-500 160 units SC BREAKFAST 01/08/17 ([facility])] Latanoprost 0.005% [Xalatan 1 drop EACH EYE QHS 01/08/17 Opthalmic] Losartan Potassium [Cozaar] 50 mg PO DAILY 01/08/17 Nebivolol HCl [Bystolic (Beta 10 mg PO DAILY 01/08/17 Akira)] Omeprazole [Prilosec] 40 mg PO DAILY 01/08/17 Acetaminophen [Tylenol Tablet] 650 mg PO Q6H PRN PRN tablet 09/07/17 Clopidogrel Bisulfate [Plavix] 75 mg PO DAILY 09/07/17 Menthol/Lanolin/Calamine/Znox 1 applic TOPICAL 0600,2200 tube 09/21/17 [Calmoseptine Ointment] Nutritional Supplement [Madhu - 1 packet PO BIDCM #60 packet 09/21/17 ORANGE FLAVOR] Nystatin Powder [Mycostatin Powder] 1 applic TOPICAL 0600,2200 bottle 09/21/17 Ferrous Sulfate [Iron] 325 mg PO BID 10/14/17 Clindamycin HCl 300 mg PO [id number] #40 cap 12/13/17 Maternal Family History: Diabetes Paternal Family History: Hypertension Sibling Family History: Diabetes Smoking Status: Former smoker Physical Exam Vital Signs Temp Pulse Resp BP 96.7 F L 88 18 152/72 H 02/22/18 09:26 02/22/18 09:26 02/22/18 09:26 02/22/18 09:26 General: Alert, Oriented x3, Cooperative, No apparent distress, Well developed, Well nourished HEENT: Atraumatic, PERRLA, EOMI, Normocephalic Lungs: Normal air movement Psych/Mental Status: Normal Affect, Appropriate, Alert and oriented to time, place, person, mood and affect Assessment/Plan Active Problems Ulcer of right lower extremity with fat layer exposed (Chronic) Ulcer of left lower extremity, limited to breakdown of skin (Chronic) Complete below knee amputation of left lower extremity (Chronic) Morbid obesity (Chronic) Chronic kidney disease (CKD) (Chronic) Type 2 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with diabetic polyneuropathy (Chronic) Malnutrition (Chronic) Lymphedema (Chronic) Edema of both legs (Chronic) The patient is tolerating hyperbaric oxygen therapy well, which will be continued as per the patient's medical plan.
[2018-02-23 08:17] VITALS: BP 143/73; PULSE 99; RESP 18; TEMP 36.3
[2018-02-23 09:26] LABS: Bedside Glucose 444 mg/dL (70-110)
--- NOTE | 2018-02-23 09:39 | PCM.WC.PN ---
(1) Ulcer of right lower extremity with fat layer exposed Status: Chronic Current Visit: Yes Code(s): L97.912 - Non-pressure chronic ulcer of unspecified part of right lower leg with fat layer exposed (2) Ulcer of left lower extremity, limited to breakdown of skin Status: Chronic Current Visit: Yes Code(s): L97.921 - Non-pressure chronic ulcer of unspecified part of left lower leg limited to breakdown of skin (3) Complete below knee amputation of left lower extremity Status: Chronic Current Visit: Yes Qualifiers: Code(s): S88.112A - Complete traumatic amputation at level between knee and ankle, left lower leg, initial encounter (4) Morbid obesity Status: Chronic Current Visit: Yes Code(s): E66.01 - Morbid (severe) obesity due to excess calories (5) Chronic kidney disease (CKD) Status: Chronic Current Visit: Yes Qualifiers: Code(s): N18.9 - Chronic kidney disease, unspecified (6) Type 2 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with diabetic polyneuropathy Status: Chronic Current Visit: Yes Code(s): E11.42 - Type 2 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with diabetic polyneuropathy (7) Malnutrition Status: Chronic Current Visit: Yes Code(s): E46 - Unspecified protein-calorie malnutrition (8) Lymphedema Status: Chronic Current Visit: Yes Code(s): I89.0 - Lymphedema, not elsewhere classified (9) Edema of both legs Status: Chronic Current Visit: Yes Code(s): R60.0 - Localized edema Type of Wound Date of Service: 02/23/18 Chief Complaint: 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 Left toe ulcer History of Wound: 57-year-old white male returns to clinic for follow-up of bilateral leg ulcers and right foot ulcers. He denies fever, chill, nausea, vomiting, loss of appetite. He underwent surgical debridement application of advanced wound care products, Amniofil and epi fix September 14, 2017. She has also been having serial applications of epi fix in the wound healing center. He is increased with elevation at home and his leg size is significantly reduced. Presents in a wheelchair today. He is amendable to undergo hyperbaric oxygen therapy and been attending the sessions as advised; he has been tolerating the sessions. He denies odors or redness. He has demonstrated significant delays in healing. He relates his left stump site is still leaking fluid. Progress of Wound: Improving - Physical Exam Vital Signs Temp Pulse Resp BP 97.3 F L 99 18 143/73 H 02/23/18 08:17 02/23/18 08:17 02/23/18 08:17 02/23/18 08:17 General: Alert, Oriented x3, Cooperative Extremities: No cyanosis, Capillary Refill Less than 3 Seconds, No Calf Tenderness - Negative Harry and Badillo right, Diminished Peripheral Pulses, Edema - Bilateral lower extremity controlled; lymphedema Skin: Ulcer/ Wound - No purulence, no erythema, streaking, odor, no infection bilateral. There is no deep tissue exposed bilateral. There is still sub-hemorrhagic weeping mild serous fluid from the left below-knee amputation stump site Wound Measurements and Assessment WC - Nurse 1 - General Ulcer Measurement Start: 02/08/18 10:34 Freq: Status: Active Protocol: Activity Type Activity Date Activity User E-Sign Co-Sign Detail Recorded Client Recorded Date Recorded By Document 02/23/18 08:17 DL [id number] 02/23/18 08:28 DL 02/23/18 08:17 Wound Center Nurse 1 [Ulcer Assessment] #13 R Med Heel -Current Size (cm) - Length 2.5 -Current Size (cm) - Width 2.5 -Current Size (cm) - Depth 0.2 -Total Square Cm 6.25 -Photo Taken Yes -Exudate Amt Medium (34-66%) -Exudate Type Serosanguineous -Wound Margin Thickened -Granulation Amt Medium (34-66%) -Granulation Quality Epworth -Necrosis Amt Medium (34-66%) -Necrotic Tissue Type Adherent Slough -Structure Exposed N/A -Texture (Martha-wound Skin Appearance) Callus Scarring -Moisture (Martha-wound Skin Appearance Dry/Scaly ) -Color (Martha-wound Skin Appearance) Hemosiderin Staining Rubor -Temperature (Martha-wound Skin No Abnormality Appearance) (Pt Warm) -Tenderness on Palpation (Martha-wound No Skin Appearance) -Ulcer Cleansing Wound Cleanser -Foul Odor after Cleansing No -Anesthetic Used 4% Lidocaine Solution #21 Right Foot-Toes w/Metatarsal Head circumfrential -Current Size (cm) - Length 5.7 -Current Size (cm) - Width 2 -Current Size (cm) - Depth 0.2 -Total Square Cm 11.4 -Photo Taken Yes -Exudate Amt Small (1-33%) -Exudate Type Serosanguineous -Wound Margin Thickened -Granulation Amt Medium (34-66%) -Granulation Quality Epworth -Necrosis Amt Medium (34-66%) -Necrotic Tissue Type Adherent Slough -Structure Exposed N/A -Texture (Martha-wound Skin Appearance) Localized Edema Scarring -Moisture (Martha-wound Skin Appearance Maceration ) -Color (Martha-wound Skin Appearance) Hemosiderin Staining -Temperature (Martha-wound Skin No Abnormality Appearance) (Pt Warm) -Ulcer Cleansing Wound Cleanser -Foul Odor after Cleansing No -Anesthetic Used 4% Lidocaine Solution [Edema Assessment] -Right Calf (cm) 38.8 -Right Ankle (cm) 29.5 -Left Calf (cm) 43 WC - Nurse 2 - General Ulcer CM Notes Start: 02/08/18 10:34 Freq: Status: Active Protocol: Activity Type Activity Date Activity User E-Sign Co-Sign Detail Recorded Client Recorded Date Recorded By Document 02/23/18 08:43 [id number] 02/23/18 08:46 ANUP 02/23/18 08:43 Wound Center Nurse 2 [Procedure/Treatment] #13 R Med Heel -Time 08:44 -Correct Patient Yes -Correct Side, Site, Position Yes -Correct Procedure Yes -Procedure Performed Yes -Type of Procedure Debridement -Clinical Debridement Subcutaneous -Post Debridement Size (cm) - Length 2.6 -Post Debridement Size (cm) - Width 2.6 -Post Debridement Size (cm) - Depth 0.2 -Total Square Cm 6.76 -Wound/Ulcer Outcome Not Healed -Ulcer Cleansing Rinsed/ Irrigated with Saline -Foul Odor after Cleansing No -Bioengineered Tissue Yes -Type of bioengineered Tissue EPIFIX -Expiration Date 11/05/22 -Product Lot Number [id number] -Percent Used 100 -Saline Lot Number [id number] -Bleeding Controlled with Pressure -Treatment Response Procedure Tolerated Well #21 Right Foot-Toes w/Metatarsal Head circumfrential -Time 08:45 -Correct Patient Yes -Correct Side, Site, Position Yes -Correct Procedure Yes -Procedure Performed Yes -Type of Procedure Debridement -Clinical Debridement Subcutaneous -Post Debridement Size (cm) - Length 5.8 -Post Debridement Size (cm) - Width 2.0 -Post Debridement Size (cm) - Depth 0.2 -Total Square Cm 11.60 -Wound/Ulcer Outcome Not Healed -Ulcer Cleansing Rinsed/ Irrigated with Saline -Foul Odor after Cleansing No -Bioengineered Tissue Yes -Type of bioengineered Tissue EPIFIX -Expiration Date 11/05/22 -Product Lot Number [id number] -Percent Used 100 -Saline Lot Number [id number] -Bleeding Controlled with Pressure -Treatment Response Procedure Tolerated Well [See Physician Procedure note for Specifics] Pain Scale: 0-10 Numeric [Pain] -Is Patient Pain Free? Yes Musculoskeletal: No Tenderness to Palpation of Joints or Extremities, Muscle Wasting, - - Left below-knee amputation Neurological: - - Lack of epicritic sensation light touch consistent with neuropathy Psych/Mental Status: Normal Affect, Appropriate Debridement Note Post-Debridement Measurements/Treatment WC - Nurse 2 - General Ulcer CM Notes Start: 02/08/18 10:34 Freq: Status: Active Protocol: Activity Type Activity Date Activity User E-Sign Co-Sign Detail Recorded Client Recorded Date Recorded By Document 02/09/18 08:47 [id number] 02/09/18 08:49 Document 02/16/18 08:42 [id number] 02/16/18 08:46 Document 02/23/18 08:43 [id number] 02/23/18 08:46 02/09/18 02/16/18 02/23/18 08:47 08:42 08:43 Wound Center Nurse 2 #13 R Med Heel -Time 08:47 08:44 08:44 -Correct Patient Yes Yes Yes -Correct Side, Site, Position Yes Yes Yes -Correct Procedure Yes Yes Yes -Procedure Performed Yes Yes Yes -Type of Procedure Debridement Debridement Debridement -Clinical Debridement Subcutaneous Subcutaneous Subcutaneous -Post Debridement Size (cm) - Length 2.3 3.1 2.6 -Post Debridement Size (cm) - Width 3.1 2 2.6 -Post Debridement Size (cm) - Depth 0.1 0.1 0.2 -Total Square Cm 7.13 6.2 6.76 -Wound/Ulcer Outcome Not Healed Not Healed Not Healed -Ulcer Cleansing Wound Cleanser Rinsed/ Rinsed/ Irrigated with Irrigated with Saline Saline -Foul Odor after Cleansing No No No -Bioengineered Tissue Yes Yes Yes -Type of bioengineered Tissue EPIFIX EPIFIX EPIFIX -Expiration Date 11/05/22 11/05/22 11/05/22 -Product Lot Number [id number] -Percent Used 100 100 100 -Saline Lot Number [id number] -Bleeding Controlled with Pressure Pressure Pressure -Treatment Response Procedure Procedure Procedure Tolerated Well Tolerated Well Tolerated Well #21 Right Foot-Toes w/Metatarsal Head circumfrential -Time 08:48 08:45 08:45 -Correct Patient Yes Yes Yes -Correct Side, Site, Position Yes Yes Yes -Correct Procedure Yes Yes Yes -Procedure Performed Yes Yes Yes -Type of Procedure Debridement Debridement Debridement -Clinical Debridement Subcutaneous Subcutaneous Subcutaneous -Post Debridement Size (cm) - Length 3 4 5.8 -Post Debridement Size (cm) - Width 2.1 1.6 2.0 -Post Debridement Size (cm) - Depth 0.1 0.1 0.2 -Total Square Cm 6.3 6.4 11.60 -Wound/Ulcer Outcome Not Healed Not Healed Not Healed -Ulcer Cleansing Rinsed/ Rinsed/ Rinsed/ Irrigated with Irrigated with Irrigated with Saline Saline Saline -Foul Odor after Cleansing No No No -Bioengineered Tissue Yes Yes Yes -Type of bioengineered Tissue EPIFIX EPIFIX EPIFIX -Expiration Date 11/05/22 11/05/22 11/05/22 -Product Lot Number [id number] -Percent Used 100 100 100 -Saline Lot Number [id number] -Bleeding Controlled with Pressure Pressure Pressure -Treatment Response Procedure Procedure Procedure Tolerated Well Tolerated Well Tolerated Well Pain Scale: 0-10 Numeric Is Patient Pain Free? Yes Yes Yes Wound debrided: heel Laterality: Left Wound Grade/Stage: grade 3 Type of Debridement: Excisional debridement Anesthesia Used: 4% Lidocaine Solution Depth: in the subcutaneous layer Percentage of wound debrided: 100 Instrument Used: #15 blade Tissue Removed: fibrous, devitalized subcutaneous, biofilm, slough Severity: Fat Layer Exposed Amount of bleeding with debridement: Mild Bleeding Controlled with: Pressure Patient tolerated procedure well - Additional Wound Wound debrided: toe Laterality: Left Wound Grade/Stage: grade 1 Type of Debridement: Excisional debridement Anesthesia Used: 4% Lidocaine Solution Depth: in the subcutaneous layer Percentage of wound debrided: 100 Instrument Used: #15 blade Tissue Removed: fibrous, devitalized subcutaneous, biofilm, slough Severity: Fat Layer Exposed Amount of bleeding with debridement: Mild Bleeding Controlled with: Pressure Patient tolerated procedure: Patient tolerated procedure well Assessment/Plan Active Problems Ulcer of right lower extremity with fat layer exposed (Chronic) Ulcer of left lower extremity, limited to breakdown of skin (Chronic) Complete below knee amputation of left lower extremity (Chronic) Morbid obesity (Chronic) Chronic kidney disease (CKD) (Chronic) Type 2 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with diabetic polyneuropathy (Chronic) Malnutrition (Chronic) Lymphedema (Chronic) Edema of both legs (Chronic) Assessment: ulcer right forefoot (digit 2). right heel ulcer muscle involved and exposed fascia without infection noted today (previous grade 3); s/p surgical debridement and application of advance wound care products (amniofil and epicord). Left below-knee amputation sub-hemorrhagic tissue with continued weeping noted; no infection. Lymphedema. Ulcer left stump site with skin layer exposed, no infection. Chronic lower extremity edema and venous insufficiency. Morbid obesity. Type 2 diabetes uncontrolled with peripheral neuropathy. CKD. Hypertension. Left below-knee amputation. Malnutrition. Delayed wound healing. Nonadherence to treatment plan Plan: I reviewed and discussed his case debridement done as documented above in the clinical panel, procedure was well tolerated. Epifix (last approved) was applied to the right heel after verbal consent was obtained. No product was wasted in addition was overlap to allow improved incorporation. This was applied according to standard protocol. He tolerated this well. A secondary dressing was applied. leave in place for 1 week. Continue compression and elevate lower extreity when sitting and in bed. Optimal blood sugar contol. Continue protein suppplements and increased protein in diet. To continue hyperbaric oxygen therapy as scheduled on complaint basis. If his left limb continues to have no weeping next week the plan is to progress him into his shrink wrap with the intention to progress to his leg prosthetic. This has actually decreased compared to last week. To improve compliance with compression pumps. I advised him to at least get a second session even if it is reduced in time each day. He reports he is doing this and I recommend he continues. Follow up in 1 week with at the wound healing center or call sooner if he has any questions or concerns.
--- NOTE | 2018-02-23 09:42 | PN.PCM_ITS ---
(1) Ulcer of right lower extremity with fat layer exposed Status: Chronic Current Visit: Yes Code(s): L97.912 - Non-pressure chronic ulcer of unspecified part of right lower leg with fat layer exposed (2) Ulcer of left lower extremity, limited to breakdown of skin Status: Chronic Current Visit: Yes Code(s): L97.921 - Non-pressure chronic ulcer of unspecified part of left lower leg limited to breakdown of skin (3) Complete below knee amputation of left lower extremity Status: Chronic Current Visit: Yes Qualifiers: Code(s): S88.112A - Complete traumatic amputation at level between knee and ankle, left lower leg, initial encounter (4) Morbid obesity Status: Chronic Current Visit: Yes Code(s): E66.01 - Morbid (severe) obesity due to excess calories (5) Chronic kidney disease (CKD) Status: Chronic Current Visit: Yes Qualifiers: Code(s): N18.9 - Chronic kidney disease, unspecified (6) Type 2 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with diabetic polyneuropathy Status: Chronic Current Visit: Yes Code(s): E11.42 - Type 2 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with diabetic polyneuropathy (7) Malnutrition Status: Chronic Current Visit: Yes Code(s): E46 - Unspecified protein- calorie malnutrition (8) Lymphedema Status: Chronic Current Visit: Yes Code(s): I89.0 - Lymphedema, not elsewhere classified (9) Edema of both legs Status: Chronic Current Visit: Yes Code(s): R60.0 - Localized edema Type of Wound Date of Service: 02/23/18 Chief Complaint: 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 Left toe ulcer History of Wound: 57-year-old white male returns to clinic for follow-up of bilateral leg ulcers and right foot ulcers. He denies fever, chill, nausea, vomiting, loss of appetite. He underwent surgical debridement application of advanced wound care products, Amniofil and epi fix September 14, 2017. She has also been having serial applications of epi fix in the wound healing center. He is increased with elevation at home and his leg size is significantly reduced. Presents in a wheelchair today. He is amendable to undergo hyperbaric oxygen therapy and been attending the sessions as advised; he has been tolerating the sessions. He denies odors or redness. He has demonstrated significant delays in healing. He relates his left stump site is still leaking fluid. Progress of Wound: Improving - Physical Exam Vital Signs Temp Pulse Resp BP 97.3 F L 99 18 143/73 H 02/23/18 08:17 02/23/18 08:17 02/23/18 08:17 02/23/18 08:17 General: Alert, Oriented x3, Cooperative Extremities: No cyanosis, Capillary Refill Less than 3 Seconds, No Calf Tenderness - Negative Harry and Badillo right, Diminished Peripheral Pulses, Edema - Bilateral lower extremity controlled; lymphedema Skin: Ulcer/ Wound - No purulence, no erythema, streaking, odor, no infection bilateral. There is no deep tissue exposed bilateral. There is still sub- hemorrhagic weeping mild serous fluid from the left below-knee amputation stump site Wound Measurements and Assessment WC - Nurse 1 - General Ulcer Measurement Start: 02/08/18 10:34 Freq: Status: Active Protocol: Activity Type Activity Date Activity User E-Sign Co-Sign Detail Recorded Client Recorded Date Recorded By Document 02/23/18 08:17 DL [id number] 02/23/18 08:28 DL 02/23/18 08:17 Wound Center Nurse 1 [Ulcer Assessment] #13 R Med Heel -Current Size (cm) - Length 2.5 -Current Size (cm) - Width 2.5 -Current Size (cm) - Depth 0.2 -Total Square Cm 6.25 -Photo Taken Yes -Exudate Amt Medium (34-66%) -Exudate Type Serosanguineous -Wound Margin Thickened -Granulation Amt Medium (34-66%) -Granulation Quality [place] -Necrosis Amt Medium (34-66%) -Necrotic Tissue Type Adherent Slough -Structure Exposed N/A -Texture (Martha-wound Skin Appearance) Callus Scarring -Moisture (Martha-wound Skin Appearance Dry/Scaly ) -Color (Martha-wound Skin Appearance) Hemosiderin Staining Rubor -Temperature (Martha-wound Skin No Abnormality Appearance) (Pt Warm) -Tenderness on Palpation (Martha-wound No Skin Appearance) -Ulcer Cleansing Wound Cleanser -Foul Odor after Cleansing No -Anesthetic Used 4% Lidocaine Solution #21 Right Foot-Toes w/Metatarsal Head circumfrential -Current Size (cm) - Length 5.7 -Current Size (cm) - Width 2 -Current Size (cm) - Depth 0.2 -Total Square Cm 11.4 -Photo Taken Yes -Exudate Amt Small (1-33%) -Exudate Type Serosanguineous -Wound Margin Thickened -Granulation Amt Medium (34-66%) -Granulation Quality [place] -Necrosis Amt Medium (34-66%) -Necrotic Tissue Type Adherent Slough -Structure Exposed N/A -Texture (Martha-wound Skin Appearance) Localized Edema Scarring -Moisture (Martha-wound Skin Appearance Maceration ) -Color (Martha-wound Skin Appearance) Hemosiderin Staining -Temperature (Martha-wound Skin No Abnormality Appearance) (Pt Warm) -Ulcer Cleansing Wound Cleanser -Foul Odor after Cleansing No -Anesthetic Used 4% Lidocaine Solution [Edema Assessment] -Right Calf (cm) 38.8 -Right Ankle (cm) 29.5 -Left Calf (cm) 43 WC - Nurse 2 - General Ulcer CM Notes Start: 02/08/18 10:34 Freq: Status: Active Protocol: Activity Type Activity Date Activity User E-Sign Co-Sign Detail Recorded Client Recorded Date Recorded By Document 02/23/18 08:43 [id number] 02/23/18 08:46 ANUP 02/23/18 08:43 Wound Center Nurse 2 [Procedure/Treatment] #13 R Med Heel -Time 08:44 -Correct Patient Yes -Correct Side, Site, Position Yes -Correct Procedure Yes -Procedure Performed Yes -Type of Procedure Debridement -Clinical Debridement Subcutaneous -Post Debridement Size (cm) - Length 2.6 -Post Debridement Size (cm) - Width 2.6 -Post Debridement Size (cm) - Depth 0.2 -Total Square Cm 6.76 -Wound/Ulcer Outcome Not Healed -Ulcer Cleansing Rinsed/ Irrigated with Saline -Foul Odor after Cleansing No -Bioengineered Tissue Yes -Type of bioengineered Tissue EPIFIX -Expiration Date 11/05/22 -Product Lot Number [id number] -Percent Used 100 -Saline Lot Number [id number] -Bleeding Controlled with Pressure -Treatment Response Procedure Tolerated Well #21 Right Foot-Toes w/Metatarsal Head circumfrential -Time 08:45 -Correct Patient Yes -Correct Side, Site, Position Yes -Correct Procedure Yes -Procedure Performed Yes -Type of Procedure Debridement -Clinical Debridement Subcutaneous -Post Debridement Size (cm) - Length 5.8 -Post Debridement Size (cm) - Width 2.0 -Post Debridement Size (cm) - Depth 0.2 -Total Square Cm 11.60 -Wound/Ulcer Outcome Not Healed -Ulcer Cleansing Rinsed/ Irrigated with Saline -Foul Odor after Cleansing No -Bioengineered Tissue Yes -Type of bioengineered Tissue EPIFIX -Expiration Date 11/05/22 -Product Lot Number [id number] -Percent Used 100 -Saline Lot Number [id number] -Bleeding Controlled with Pressure -Treatment Response Procedure Tolerated Well [See Physician Procedure note for Specifics] Pain Scale: 0-10 Numeric [Pain] -Is Patient Pain Free? Yes Musculoskeletal: No Tenderness to Palpation of Joints or Extremities, Muscle Wasting, - - Left below-knee amputation Neurological: - - Lack of epicritic sensation light touch consistent with neuropathy Psych/Mental Status: Normal Affect, Appropriate Debridement Note Post-Debridement Measurements/Treatment WC - Nurse 2 - General Ulcer CM Notes Start: 02/08/18 10:34 Freq: Status: Active Protocol: Activity Type Activity Date Activity User E-Sign Co-Sign Detail Recorded Client Recorded Date Recorded By Document 02/09/18 08:47 [id number] 02/09/18 08:49 Document 02/16/18 08:42 [id number] 02/16/18 08:46 Document 02/23/18 08:43 [id number] 02/23/18 08:46 02/09/18 02/16/18 02/23/18 08:47 08:42 08:43 Wound Center Nurse 2 #13 R Med Heel -Time 08:47 08:44 08:44 -Correct Patient Yes Yes Yes -Correct Side, Site, Position Yes Yes Yes -Correct Procedure Yes Yes Yes -Procedure Performed Yes Yes Yes -Type of Procedure Debridement Debridement Debridement -Clinical Debridement Subcutaneous Subcutaneous Subcutaneous -Post Debridement Size (cm) - Length 2.3 3.1 2.6 -Post Debridement Size (cm) - Width 3.1 2 2.6 -Post Debridement Size (cm) - Depth 0.1 0.1 0.2 -Total Square Cm 7.13 6.2 6.76 -Wound/Ulcer Outcome Not Healed Not Healed Not Healed -Ulcer Cleansing Wound Cleanser Rinsed/ Rinsed/ Irrigated with Irrigated with Saline Saline -Foul Odor after Cleansing No No No -Bioengineered Tissue Yes Yes Yes -Type of bioengineered Tissue EPIFIX EPIFIX EPIFIX -Expiration Date 11/05/22 11/05/22 11/05/22 -Product Lot Number [id number] -Percent Used 100 100 100 -Saline Lot Number [id number] -Bleeding Controlled with Pressure Pressure Pressure -Treatment Response Procedure Procedure Procedure Tolerated Well Tolerated Well Tolerated Well #21 Right Foot-Toes w/Metatarsal Head circumfrential -Time 08:48 08:45 08:45 -Correct Patient Yes Yes Yes -Correct Side, Site, Position Yes Yes Yes -Correct Procedure Yes Yes Yes -Procedure Performed Yes Yes Yes -Type of Procedure Debridement Debridement Debridement -Clinical Debridement Subcutaneous Subcutaneous Subcutaneous -Post Debridement Size (cm) - Length 3 4 5.8 -Post Debridement Size (cm) - Width 2.1 1.6 2.0 -Post Debridement Size (cm) - Depth 0.1 0.1 0.2 -Total Square Cm 6.3 6.4 11.60 -Wound/Ulcer Outcome Not Healed Not Healed Not Healed -Ulcer Cleansing Rinsed/ Rinsed/ Rinsed/ Irrigated with Irrigated with Irrigated with Saline Saline Saline -Foul Odor after Cleansing No No No -Bioengineered Tissue Yes Yes Yes -Type of bioengineered Tissue EPIFIX EPIFIX EPIFIX -Expiration Date 11/05/22 11/05/22 11/05/22 -Product Lot Number [id number] -Percent Used 100 100 100 -Saline Lot Number [id number] -Bleeding Controlled with Pressure Pressure Pressure -Treatment Response Procedure Procedure Procedure Tolerated Well Tolerated Well Tolerated Well Pain Scale: 0-10 Numeric Is Patient Pain Free? Yes Yes Yes Wound debrided: heel Laterality: Left Wound Grade/Stage: grade 3 Type of Debridement: Excisional debridement Anesthesia Used: 4% Lidocaine Solution Depth: in the subcutaneous layer Percentage of wound debrided: 100 Instrument Used: #15 blade Tissue Removed: fibrous, devitalized subcutaneous, biofilm, slough Severity: Fat Layer Exposed Amount of bleeding with debridement: Mild Bleeding Controlled with: Pressure Patient tolerated procedure well - Additional Wound Wound debrided: toe Laterality: Left Wound Grade/Stage: grade 1 Type of Debridement: Excisional debridement Anesthesia Used: 4% Lidocaine Solution Depth: in the subcutaneous layer Percentage of wound debrided: 100 Instrument Used: #15 blade Tissue Removed: fibrous, devitalized subcutaneous, biofilm, slough Severity: Fat Layer Exposed Amount of bleeding with debridement: Mild Bleeding Controlled with: Pressure Patient tolerated procedure: Patient tolerated procedure well Assessment/Plan Active Problems Ulcer of right lower extremity with fat layer exposed (Chronic) Ulcer of left lower extremity, limited to breakdown of skin (Chronic) Complete below knee amputation of left lower extremity (Chronic) Morbid obesity (Chronic) Chronic kidney disease (CKD) (Chronic) Type 2 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with diabetic polyneuropathy (Chronic) Malnutrition (Chronic) Lymphedema (Chronic) Edema of both legs (Chronic) Assessment: ulcer right forefoot (digit 2). right heel ulcer muscle involved and exposed fascia without infection noted today (previous grade 3); s/p surgical debridement and application of advance wound care products (amniofil and epicord). Left below-knee amputation sub-hemorrhagic tissue with continued weeping noted; no infection. Lymphedema. Ulcer left stump site with skin layer exposed, no infection. Chronic lower extremity edema and venous insufficiency. Morbid obesity. Type 2 diabetes uncontrolled with peripheral neuropathy. CKD. Hypertension. Left below-knee amputation. Malnutrition. Delayed wound healing. Nonadherence to treatment plan Plan: I reviewed and discussed his case debridement done as documented above in the clinical panel, procedure was well tolerated. Epifix (last approved) was applied to the right heel after verbal consent was obtained. No product was wasted in addition was overlap to allow improved incorporation. This was applied according to standard protocol. He tolerated this well. A secondary dressing was applied. leave in place for 1 week. Continue compression and elevate lower extreity when sitting and in bed. Optimal blood sugar contol. Continue protein suppplements and increased protein in diet. To continue hyperbaric oxygen therapy as scheduled on complaint basis. If his left limb continues to have no weeping next week the plan is to progress him into his shrink wrap with the intention to progress to his leg prosthetic. This has actually decreased compared to last week. To improve compliance with compression pumps. I advised him to at least get a second session even if it is reduced in time each day. He reports he is doing this and I recommend he continues. Follow up in 1 week with at the wound healing center or call sooner if he has any questions or concerns.
[2018-02-23 10:01] LABS: Bedside Glucose 437 mg/dL (70-110)
[2018-02-24 09:59] VITALS: BP 149/72; PULSE 86; RESP 18; TEMP 36.6
--- NOTE | 2018-02-24 10:01 | HBO.PN.PCM_ITS ---
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 Left toe ulcer DEL BARRIOS is a 57 year old currently undergoing hyperbaric oxygen therapy for diabetic toe and heel ulcers with necrosis of bone, Brooks Grade 3 Progress: The patient appears to be tolerating hyperbaric oxygen therapy well. This is his 2nd treatment course and his 19th session of hyperbaric oxygen therapy. Tolerance of hyperbaric oxygen therapy: Hyperbaric oxygen therapy was administered as per the facility's protocol. The patient tolerated hyperbaric oxygen therapy well, without complaints however, when coming out of the chamber , he reported mild right-sided ear pain. Upon emergence from the hyperbaric chamber, the patient's vital signs remained stable. Patient was discharged in good condition. 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) Delayed wound healing (Chronic) Malnutrition (Chronic) Venous insufficiency (Chronic) Lymphedema (Chronic) Edema of both legs (Chronic) GERD (gastroesophageal reflux disease) (Chronic) Hypertension (Chronic) Hyperlipemia (Chronic) Morbid obesity with BMI of 45.0-49.9, adult (Chronic) Hyperlipidemia associated with type 2 diabetes mellitus (Chronic) 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 Allergies/Adverse Reactions: Allergies bee venom protein (honey bee) Allergy (Verified 12/13/17 09:30) Swelling metronidazole [From Flagyl] Allergy (Verified 12/13/17 09:30) Itching Home Medications: Ambulatory Orders Medication Instructions Recorded Atorvastatin Calcium [Lipitor] 10 mg PO QHS 01/08/17 Brimonidine Tartrate 0.2% 1 drop EACH EYE BID 01/08/17 [Brimonidine 0.2% 5Ml Bottle] Ergocalciferol [Vitamin D] 50,000 unit PO FR 01/08/17 Gabapentin [Neurontin] 1,600 mg PO QHS 01/08/17 Gabapentin [Neurontin] 600 mg PO DAILY 01/08/17 Insulin U-500 [Humulin R U-500 105 units SC DINNER 01/08/17 ([facility])] Insulin U-500 [Humulin R U-500 105 units SC LUNCH 01/08/17 ([facility])] Insulin U-500 [Humulin R U-500 160 units SC BREAKFAST 01/08/17 ([facility])] Latanoprost 0.005% [Xalatan 1 drop EACH EYE QHS 01/08/17 Opthalmic] Losartan Potassium [Cozaar] 50 mg PO DAILY 01/08/17 Nebivolol HCl [Bystolic (Beta 10 mg PO DAILY 01/08/17 Akira)] Omeprazole [Prilosec] 40 mg PO DAILY 01/08/17 Acetaminophen [Tylenol Tablet] 650 mg PO Q6H PRN PRN tablet 09/07/17 Clopidogrel Bisulfate [Plavix] 75 mg PO DAILY 09/07/17 Menthol/Lanolin/Calamine/Znox 1 applic TOPICAL 0600,2200 tube 09/21/17 [Calmoseptine Ointment] Nutritional Supplement [Madhu - 1 packet PO BIDCM #60 packet 09/21/17 [place]ANGE FLAVOR] Nystatin Powder [Mycostatin Powder] 1 applic TOPICAL 0600,2200 bottle 09/21/17 Ferrous Sulfate [Iron] 325 mg PO BID 10/14/17 Clindamycin HCl 300 mg PO [id number] #40 cap 12/13/17 Maternal Family History: Diabetes Paternal Family History: Hypertension Sibling Family History: Diabetes Smoking Status: Former smoker Physical Exam Vital Signs Temp Pulse Resp BP 97.3 F L 99 18 143/73 H 02/23/18 08:17 02/23/18 08:17 02/23/18 08:17 02/23/18 08:17 General: Alert, Oriented x3, Cooperative, No apparent distress HEENT: Atraumatic Lungs: Normal air movement Psych/Mental Status: Normal Affect Assessment/Plan Active Problems Ulcer of right lower extremity with fat layer exposed (Chronic) Ulcer of left lower extremity, limited to breakdown of skin (Chronic) Complete below knee amputation of left lower extremity (Chronic) Morbid obesity (Chronic) Chronic kidney disease (CKD) (Chronic) Type 2 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with diabetic polyneuropathy (Chronic) Malnutrition (Chronic) Lymphedema (Chronic) Edema of both legs (Chronic) The patient is tolerating hyperbaric oxygen therapy well, which will be continued as per the patient's medical plan. He was advised to follow-up with his ENT due to some dislodging of his ear tubes.
[2018-02-24 10:55] LABS: Bedside Glucose 242 mg/dL (70-110)
[2018-02-24 12:15] LABS: Bedside Glucose 207 mg/dL (70-110)
[2018-02-28 09:55] LABS: Bedside Glucose 226 mg/dL (70-110)
[2018-02-28 10:02] VITALS: BP 147/67; BP 154/75; PULSE 83; PULSE 86; RESP 16; RESP 18; TEMP 35.9; TEMP 36
[2018-02-28 11:55] LABS: Bedside Glucose 170 mg/dL (70-110)
[2018-03-01 09:35] VITALS: BP 134/77; BP 148/77; PULSE 83; PULSE 88; RESP 16; TEMP 36; TEMP 36.2
[2018-03-01 09:35] LABS: Bedside Glucose 226 mg/dL (70-110)
[2018-03-01 11:36] LABS: Bedside Glucose 178 mg/dL (70-110)
--- NOTE | 2018-03-01 12:48 | PCM.HBO.PN ---
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 Left toe ulcer DEL BARRIOS is a 57 year old currently undergoing hyperbaric oxygen therapy for diabetic toe and heel ulcers with necrosis of bone, Brooks Grade 3 Progress: The patient appears to be tolerating hyperbaric oxygen therapy well. This is his 2nd treatment course and his 21st session of hyperbaric oxygen therapy. Tolerance of hyperbaric oxygen therapy: Hyperbaric oxygen therapy was administered as per the facility's protocol. The patient tolerated hyperbaric oxygen therapy well, without complaints or complications. Upon emergence from the hyperbaric chamber, the patient's vital signs remained stable. Patient was discharged in good condition. 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) Delayed wound healing (Chronic) Malnutrition (Chronic) Venous insufficiency (Chronic) Lymphedema (Chronic) Edema of both legs (Chronic) GERD (gastroesophageal reflux disease) (Chronic) Hypertension (Chronic) Hyperlipemia (Chronic) Morbid obesity with BMI of 45.0-49.9, adult (Chronic) Hyperlipidemia associated with type 2 diabetes mellitus (Chronic) 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 Allergies/Adverse Reactions: Allergies bee venom protein (honey bee) Allergy (Verified 07/09/18 09:30) Swelling metronidazole [From Flagyl] Allergy (Verified 12/13/17 09:30) Itching Home Medications: Ambulatory Orders Medication Instructions Recorded Atorvastatin Calcium [Lipitor] 10 mg PO QHS 01/08/17 Brimonidine Tartrate 0.2% 1 drop EACH EYE BID 01/08/17 [Brimonidine 0.2% 5Ml Bottle] Ergocalciferol [Vitamin D] 50,000 unit PO FR 01/08/17 Gabapentin [Neurontin] 1,600 mg PO QHS 01/08/17 Gabapentin [Neurontin] 600 mg PO DAILY 01/08/17 Insulin U-500 [Humulin R U-500 105 units SC DINNER 01/08/17 ([facility])] Insulin U-500 [Humulin R U-500 105 units SC LUNCH 01/08/17 ([facility])] Insulin U-500 [Humulin R U-500 160 units SC BREAKFAST 01/08/17 ([facility])] Latanoprost 0.005% [Xalatan 1 drop EACH EYE QHS 01/08/17 Opthalmic] Losartan Potassium [Cozaar] 50 mg PO DAILY 01/08/17 Nebivolol HCl [Bystolic (Beta 10 mg PO DAILY 01/08/17 Akira)] Omeprazole [Prilosec] 40 mg PO DAILY 01/08/17 Acetaminophen [Tylenol Tablet] 650 mg PO Q6H PRN PRN tablet 09/07/17 Clopidogrel Bisulfate [Plavix] 75 mg PO DAILY 09/07/17 Menthol/Lanolin/Calamine/Znox 1 applic TOPICAL 0600,2200 tube 09/21/17 [Calmoseptine Ointment] Nutritional Supplement [Madhu - 1 packet PO BIDCM #60 packet 09/21/17 [place] FLAVOR] Nystatin Powder [Mycostatin Powder] 1 applic TOPICAL 0600,2200 bottle 09/21/17 Ferrous Sulfate [Iron] 325 mg PO BID 10/14/17 Clindamycin HCl 300 mg PO [id number] #40 cap 12/13/17 Maternal Family History: Diabetes Paternal Family History: Hypertension Sibling Family History: Diabetes Smoking Status: Former smoker Physical Exam Vital Signs Temp Pulse Resp BP 96.8 F L 88 16 134/77 H 03/01/18 09:35 03/01/18 09:35 03/01/18 09:35 03/01/18 09:35 General: Alert, Oriented x3, Cooperative, No apparent distress, Well developed, Well nourished HEENT: Atraumatic, PERRLA, EOMI, Normocephalic Lungs: Normal air movement Psych/Mental Status: Normal Affect, Appropriate, Alert and oriented to time, place, person, mood and affect Assessment/Plan Active Problems Ulcer of right lower extremity with fat layer exposed (Chronic) Ulcer of left lower extremity, limited to breakdown of skin (Chronic) Complete below knee amputation of left lower extremity (Chronic) Morbid obesity (Chronic) Chronic kidney disease (CKD) (Chronic) Type 2 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with diabetic polyneuropathy (Chronic) Malnutrition (Chronic) Lymphedema (Chronic) Edema of both legs (Chronic) The patient appears to be tolerating hyperbaric oxygen therapy well, which will be continued as per the patient's medical plan.
[2018-03-02 08:21] VITALS: BP 141/71; PULSE 91; RESP 18; TEMP 36.6
[2018-03-02 09:26] LABS: Bedside Glucose 173 mg/dL (70-110)
[2018-03-02 09:30] VITALS: BP 132/88; PULSE 84; RESP 16; TEMP 36.1
--- NOTE | 2018-03-02 09:40 | PCM.WC.PN ---
(1) Ulcer of right lower extremity with fat layer exposed Status: Chronic Current Visit: Yes Code(s): L97.912 - Non-pressure chronic ulcer of unspecified part of right lower leg with fat layer exposed (2) Ulcer of left lower extremity, limited to breakdown of skin Status: Chronic Current Visit: Yes Code(s): L97.921 - Non-pressure chronic ulcer of unspecified part of left lower leg limited to breakdown of skin (3) Complete below knee amputation of left lower extremity Status: Chronic Current Visit: Yes Qualifiers: Code(s): S88.112A - Complete traumatic amputation at level between knee and ankle, left lower leg, initial encounter (4) Morbid obesity Status: Chronic Current Visit: Yes Code(s): E66.01 - Morbid (severe) obesity due to excess calories (5) Chronic kidney disease (CKD) Status: Chronic Current Visit: Yes Qualifiers: Code(s): N18.9 - Chronic kidney disease, unspecified (6) Type 2 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with diabetic polyneuropathy Status: Chronic Current Visit: Yes Code(s): E11.42 - Type 2 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with diabetic polyneuropathy (7) Malnutrition Status: Chronic Current Visit: Yes Code(s): E46 - Unspecified protein-calorie malnutrition (8) Lymphedema Status: Chronic Current Visit: Yes Code(s): I89.0 - Lymphedema, not elsewhere classified (9) Edema of both legs Status: Chronic Current Visit: Yes Code(s): R60.0 - Localized edema Type of Wound Date of Service: 03/02/18 Chief Complaint: 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 Left toe ulcer History of Wound: 57-year-old white male returns to clinic for follow-up of bilateral leg ulcers and right foot ulcers. He denies fever, chill, nausea, vomiting, loss of appetite. He underwent surgical debridement application of advanced wound care products, Amniofil and epi fix September 14, 2017. He has also been having serial applications of epi fix in the wound healing center. He is increased with elevation at home and his leg size is significantly reduced. Presents in a wheelchair today. He is amendable to undergo hyperbaric oxygen therapy and been attending the sessions as advised; he has been tolerating the sessions. He denies odors or redness. He has demonstrated significant delays in healing. He relates his left stump site is still leaking fluid. Progress of Wound: Improving heel. toe ulcer site stable - Physical Exam Vital Signs Temp Pulse Resp BP 97.8 F 91 18 141/71 H 03/02/18 08:21 03/02/18 08:21 03/02/18 08:21 03/02/18 08:21 General: Alert, Oriented x3, Cooperative Extremities: No cyanosis, Capillary Refill Less than 3 Seconds, No Calf Tenderness - negative suzanne and bean right. left below knee amputation, Diminished Peripheral Pulses, Edema Skin: Ulcer/ Wound - No purulence, no erythema, streaking, no odor, no infection. There is increased maceration and drainage noted to the right toe area. There is peripheral epithelialization of the right heel ulcer. On the left below-knee amputation stump site there is some hemorrhagic tissue exposed with continued serous weeping and no exposed granulation tissue or deeper tissue noted, - - The skin is hairless and atrophic Wound Measurements and Assessment WC - Nurse 1 - General Ulcer Measurement Start: 02/08/18 10:34 Freq: Status: Active Protocol: Activity Type Activity Date Activity User E-Sign Co-Sign Detail Recorded Client Recorded Date Recorded By Document 03/02/18 08:21 [id number] 03/02/18 08:23 03/02/18 08:21 Wound Center Nurse 1 [Ulcer Assessment] #13 R Med Heel -Combined with other wound No -Current Size (cm) - Length 2.2 -Current Size (cm) - Width 2.2 -Current Size (cm) - Depth 0.1 -Total Square Cm 4.84 -Photo Taken No -Epithelialization Small 1-33% -Tunneling No -Undermining/Tunneling No -Circular Undermining No -Exudate Amt Medium (34-66%) -Exudate Type Serosanguineous -Wound Margin Flat & Intact -Granulation Amt Medium (34-66%) -Granulation Quality Red -Slough/Fibrin Yes -Necrosis Amt Small (1-33%) -Necrotic Tissue Type Adherent Slough -Structure Exposed N/A -Texture (Martha-wound Skin Appearance) Assessed Excoriation Localized Edema -Moisture (Martha-wound Skin Appearance Assessed ) Dry/Scaly -Color (Martha-wound Skin Appearance) Assessed -Temperature (Martha-wound Skin No Abnormality Appearance) (Pt Warm) -Tenderness on Palpation (Martha-wound No Skin Appearance) -Ulcer Cleansing Wound Cleanser -Foul Odor after Cleansing No -Anesthetic Used 4% Lidocaine Solution #21 Right Foot-Toes w/Metatarsal Head circumfrential -Combined with other wound No -Current Size (cm) - Length 5 -Current Size (cm) - Width 1.2 -Current Size (cm) - Depth 0.2 -Total Square Cm 6.0 -Photo Taken No -Epithelialization Medium 34-66% -Tunneling No -Undermining/Tunneling No -Circular Undermining No -Exudate Amt Large (67-100%) -Exudate Type Serosanguineous -Wound Margin Fibrotic Scar, Thickened Scar -Granulation Amt Medium (34-66%) -Granulation Quality Red -Slough/Fibrin Yes -Necrosis Amt Medium (34-66%) -Necrotic Tissue Type Adherent Slough -Structure Exposed N/A -Texture (Martha-wound Skin Appearance) Assessed Excoriation Localized Edema -Moisture (Martha-wound Skin Appearance Assessed ) Maceration Weeping -Color (Martha-wound Skin Appearance) Assessed -Temperature (Martha-wound Skin No Abnormality Appearance) (Pt Warm) -Tenderness on Palpation (Martha-wound No Skin Appearance) -Ulcer Cleansing Wound Cleanser -Foul Odor after Cleansing No -Anesthetic Used 4% Lidocaine Solution [Edema Assessment] -Lower Limb Edema Present Yes -Right Calf (cm) 37 -Right Ankle (cm) 29.5 -Left Calf (cm) 37.0 WC - Nurse 2 - General Ulcer CM Notes Start: 02/08/18 10:34 Freq: Status: Active Protocol: Activity Type Activity Date Activity User E-Sign Co-Sign Detail Recorded Client Recorded Date Recorded By Document 03/02/18 08:38 [id number] 03/02/18 08:43 03/02/18 08:38 Wound Center Nurse 2 [Procedure/Treatment] #13 R Med Heel -Time 08:42 -Correct Patient Yes -Correct Side, Site, Position Yes -Correct Procedure Yes -Procedure Performed Yes -Type of Procedure Debridement -Clinical Debridement Subcutaneous -Post Debridement Size (cm) - Length 2.3 -Post Debridement Size (cm) - Width 2.3 -Post Debridement Size (cm) - Depth 0.1 -Total Square Cm 5.29 -Wound/Ulcer Outcome Not Healed -Ulcer Cleansing Rinsed/ Irrigated with Saline -Foul Odor after Cleansing No -Bioengineered Tissue No -Topical Lidocaine (%) 4 -Bleeding Controlled with Pressure -Treatment Response Procedure Tolerated Well #21 Right Foot-Toes w/Metatarsal Head circumfrential -Time 08:42 -Correct Patient Yes -Correct Side, Site, Position Yes -Correct Procedure Yes -Procedure Performed Yes -Type of Procedure Debridement -Clinical Debridement Subcutaneous -Post Debridement Size (cm) - Length 5.1 -Post Debridement Size (cm) - Width 1.3 -Post Debridement Size (cm) - Depth 0.2 -Total Square Cm 6.63 -Wound/Ulcer Outcome Not Healed -Ulcer Cleansing Rinsed/ Irrigated with Saline -Foul Odor after Cleansing No -Bioengineered Tissue No -Topical Lidocaine (%) 4 -Bleeding Controlled with Pressure -Treatment Response Procedure Tolerated Well [See Physician Procedure note for Specifics] Pain Scale: 0-10 Numeric [Pain] -Is Patient Pain Free? Yes Musculoskeletal: No Tenderness to Palpation of Joints or Extremities, Muscle Wasting Neurological: - - Lack of epicritic sensation light touch bilateral Psych/Mental Status: Normal Affect, Appropriate Debridement Note Post-Debridement Measurements/Treatment WC - Nurse 2 - General Ulcer CM Notes Start: 02/08/18 10:34 Freq: Status: Active Protocol: Activity Type Activity Date Activity User E-Sign Co-Sign Detail Recorded Client Recorded Date Recorded By Document 02/09/18 08:47 [id number] 02/09/18 08:49 Document 02/16/18 08:42 [id number] 02/16/18 08:46 Document 02/23/18 08:43 [id number] 02/23/18 08:46 Document 03/02/18 08:38 [id number] 03/02/18 08:43 02/09/18 02/16/18 02/23/18 08:47 08:42 08:43 Wound Center Nurse 2 #13 R Med Heel -Time 08:47 08:44 08:44 -Correct Patient Yes Yes Yes -Correct Side, Site, Position Yes Yes Yes -Correct Procedure Yes Yes Yes -Procedure Performed Yes Yes Yes -Type of Procedure Debridement Debridement Debridement -Clinical Debridement Subcutaneous Subcutaneous Subcutaneous -Post Debridement Size (cm) - Length 2.3 3.1 2.6 -Post Debridement Size (cm) - Width 3.1 2 2.6 -Post Debridement Size (cm) - Depth 0.1 0.1 0.2 -Total Square Cm 7.13 6.2 6.76 -Wound/Ulcer Outcome Not Healed Not Healed Not Healed -Ulcer Cleansing Wound Cleanser Rinsed/ Rinsed/ Irrigated with Irrigated with Saline Saline -Foul Odor after Cleansing No No No -Bioengineered Tissue Yes Yes Yes -Type of bioengineered Tissue EPIFIX EPIFIX EPIFIX -Expiration Date 11/05/22 11/05/22 11/05/22 -Product Lot Number [id number] -Percent Used 100 100 100 -Saline Lot Number [id number] -Topical Lidocaine (%) -Bleeding Controlled with Pressure Pressure Pressure -Treatment Response Procedure Procedure Procedure Tolerated Well Tolerated Well Tolerated Well #21 Right Foot-Toes w/Metatarsal Head circumfrential -Time 08:48 08:45 08:45 -Correct Patient Yes Yes Yes -Correct Side, Site, Position Yes Yes Yes -Correct Procedure Yes Yes Yes -Procedure Performed Yes Yes Yes -Type of Procedure Debridement Debridement Debridement -Clinical Debridement Subcutaneous Subcutaneous Subcutaneous -Post Debridement Size (cm) - Length 3 4 5.8 -Post Debridement Size (cm) - Width 2.1 1.6 2.0 -Post Debridement Size (cm) - Depth 0.1 0.1 0.2 -Total Square Cm 6.3 6.4 11.60 -Wound/Ulcer Outcome Not Healed Not Healed Not Healed -Ulcer Cleansing Rinsed/ Rinsed/ Rinsed/ Irrigated with Irrigated with Irrigated with Saline Saline Saline -Foul Odor after Cleansing No No No -Bioengineered Tissue Yes Yes Yes -Type of bioengineered Tissue EPIFIX EPIFIX EPIFIX -Expiration Date 11/05/22 11/05/22 11/05/22 -Product Lot Number [id number] -Percent Used 100 100 100 -Saline Lot Number [id number] -Topical Lidocaine (%) -Bleeding Controlled with Pressure Pressure Pressure -Treatment Response Procedure Procedure Procedure Tolerated Well Tolerated Well Tolerated Well Pain Scale: 0-10 Numeric Is Patient Pain Free? Yes Yes Yes 03/02/18 08:38 Wound Center Nurse 2 #13 R Med Heel -Time 08:42 -Correct Patient Yes -Correct Side, Site, Position Yes -Correct Procedure Yes -Procedure Performed Yes -Type of Procedure Debridement -Clinical Debridement Subcutaneous -Post Debridement Size (cm) - Length 2.3 -Post Debridement Size (cm) - Width 2.3 -Post Debridement Size (cm) - Depth 0.1 -Total Square Cm 5.29 -Wound/Ulcer Outcome Not Healed -Ulcer Cleansing Rinsed/ Irrigated with Saline -Foul Odor after Cleansing No -Bioengineered Tissue No -Type of bioengineered Tissue -Expiration Date -Product Lot Number -Percent Used -Saline Lot Number -Topical Lidocaine (%) 4 -Bleeding Controlled with Pressure -Treatment Response Procedure Tolerated Well #21 Right Foot-Toes w/Metatarsal Head circumfrential -Time 08:42 -Correct Patient Yes -Correct Side, Site, Position Yes -Correct Procedure Yes -Procedure Performed Yes -Type of Procedure Debridement -Clinical Debridement Subcutaneous -Post Debridement Size (cm) - Length 5.1 -Post Debridement Size (cm) - Width 1.3 -Post Debridement Size (cm) - Depth 0.2 -Total Square Cm 6.63 -Wound/Ulcer Outcome Not Healed -Ulcer Cleansing Rinsed/ Irrigated with Saline -Foul Odor after Cleansing No -Bioengineered Tissue No -Type of bioengineered Tissue -Expiration Date -Product Lot Number -Percent Used -Saline Lot Number -Topical Lidocaine (%) 4 -Bleeding Controlled with Pressure -Treatment Response Procedure Tolerated Well Pain Scale: 0-10 Numeric Is Patient Pain Free? Yes Wound debrided: heel Laterality: Left Wound Grade/Stage: grade 3 Type of Debridement: Excisional debridement Anesthesia Used: 4% Lidocaine Solution Depth: in the subcutaneous layer Percentage of wound debrided: 100 Instrument Used: #15 blade Tissue Removed: fibrous, devitalized subcutaneous, biofilm, slough Severity: Fat Layer Exposed Amount of bleeding with debridement: Mild Bleeding Controlled with: Pressure Patient tolerated procedure well - Additional Wound Wound debrided: toe Laterality: Left Wound Grade/Stage: grade 1 Type of Debridement: Excisional debridement Anesthesia Used: 4% Lidocaine Solution Depth: in the subcutaneous layer Percentage of wound debrided: 100 Instrument Used: #15 blade Tissue Removed: fibrous, devitalized subcutaneous, biofilm, slough Severity: Fat Layer Exposed Amount of bleeding with debridement: Mild Bleeding Controlled with: Pressure Patient tolerated procedure: Patient tolerated procedure well Assessment/Plan Active Problems Ulcer of right lower extremity with fat layer exposed (Chronic) Ulcer of left lower extremity, limited to breakdown of skin (Chronic) Complete below knee amputation of left lower extremity (Chronic) Morbid obesity (Chronic) Chronic kidney disease (CKD) (Chronic) Type 2 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with diabetic polyneuropathy (Chronic) Malnutrition (Chronic) Lymphedema (Chronic) Edema of both legs (Chronic) Assessment: ulcer right forefoot (digit 2). right heel ulcer muscle involved and exposed fascia without infection noted today (previous grade 3); s/p surgical debridement and application of advance wound care products (amniofil and epicord). Left below-knee amputation sub-hemorrhagic tissue with continued weeping noted; no infection. Lymphedema. Ulcer left stump site with skin layer exposed, no infection. Chronic lower extremity edema and venous insufficiency. Morbid obesity. Type 2 diabetes uncontrolled with peripheral neuropathy. CKD. Hypertension. Left below-knee amputation. Malnutrition. Delayed wound healing. Nonadherence to treatment plan Plan: I reviewed and discussed his case debridement done as documented above in the clinical panel, procedure was well tolerated. Epifix (last approved) was applied to the right heel last week. To change the dressing daily with Guera to the sites. Continue compression and elevate lower extreity when sitting and in bed. Optimal blood sugar contol. Continue protein suppplements and increased protein in diet. To continue hyperbaric oxygen therapy as scheduled on complaint basis. If his left limb continues to have no weeping next week the plan is to progress him into his shrink wrap with the intention to progress to his leg prosthetic. To improve compliance with compression pumps. I advised him to at least get a second session even if it is reduced in time each day. He reports he is doing this and I recommend he continues. Follow up in 1 week with at the wound healing center or call sooner if he has any questions or concerns.
--- NOTE | 2018-03-02 09:46 | PN.PCM_ITS ---
(1) Ulcer of right lower extremity with fat layer exposed Status: Chronic Current Visit: Yes Code(s): L97.912 - Non-pressure chronic ulcer of unspecified part of right lower leg with fat layer exposed (2) Ulcer of left lower extremity, limited to breakdown of skin Status: Chronic Current Visit: Yes Code(s): L97.921 - Non-pressure chronic ulcer of unspecified part of left lower leg limited to breakdown of skin (3) Complete below knee amputation of left lower extremity Status: Chronic Current Visit: Yes Qualifiers: Code(s): S88.112A - Complete traumatic amputation at level between knee and ankle, left lower leg, initial encounter (4) Morbid obesity Status: Chronic Current Visit: Yes Code(s): E66.01 - Morbid (severe) obesity due to excess calories (5) Chronic kidney disease (CKD) Status: Chronic Current Visit: Yes Qualifiers: Code(s): N18.9 - Chronic kidney disease, unspecified (6) Type 2 diabetes mellitus with diabetic polyneuropathy Status: Chronic Current Visit: Yes Code(s): E11.42 - Type 2 diabetes mellitus with diabetic polyneuropathy (7) Malnutrition Status: Chronic Current Visit: Yes Code(s): E46 - Unspecified protein- calorie malnutrition (8) Lymphedema Status: Chronic Current Visit: Yes Code(s): I89.0 - Lymphedema, not elsewhere classified (9) Edema of both legs Status: Chronic Current Visit: Yes Code(s): R60.0 - Localized edema Type of Wound Date of Service: 03/02/18 Chief Complaint: 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 Left toe ulcer History of Wound: 57-year-old white male returns to clinic for follow-up of bilateral leg ulcers and right foot ulcers. He denies fever, chill, nausea, vomiting, loss of appetite. He underwent surgical debridement application of advanced wound care products, Amniofil and epi fix September 14, 2017. He has also been having serial applications of epi fix in the wound healing center. He is increased with elevation at home and his leg size is significantly reduced. Presents in a wheelchair today. He is amendable to undergo hyperbaric oxygen therapy and been attending the sessions as advised; he has been tolerating the sessions. He denies odors or redness. He has demonstrated significant delays in healing. He relates his left stump site is still leaking fluid. Progress of Wound: Improving heel. toe ulcer site stable - Physical Exam Vital Signs Temp Pulse Resp BP 97.8 F 91 18 141/71 H 03/02/18 08:21 03/02/18 08:21 03/02/18 08:21 03/02/18 08:21 General: Alert, Oriented x3, Cooperative Extremities: No cyanosis, Capillary Refill Less than 3 Seconds, No Calf Tenderness - negative suzanne and bean right. left below knee amputation, Diminished Peripheral Pulses, Edema Skin: Ulcer/ Wound - No purulence, no erythema, streaking, no odor, no infection. There is increased maceration and drainage noted to the right toe area. There is peripheral epithelialization of the right heel ulcer. On the left below-knee amputation stump site there is some hemorrhagic tissue exposed with continued serous weeping and no exposed granulation tissue or deeper tissue noted, - - The skin is hairless and atrophic Wound Measurements and Assessment WC - Nurse 1 - General Ulcer Measurement Start: 02/08/18 10:34 Freq: Status: Active Protocol: Activity Type Activity Date Activity User E-Sign Co-Sign Detail Recorded Client Recorded Date Recorded By Document 03/02/18 08:21 [id number] 03/02/18 08:23 03/02/18 08:21 Wound Center Nurse 1 [Ulcer Assessment] #13 R Med Heel -Combined with other wound No -Current Size (cm) - Length 2.2 -Current Size (cm) - Width 2.2 -Current Size (cm) - Depth 0.1 -Total Square Cm 4.84 -Photo Taken No -Epithelialization Small 1-33% -Tunneling No -Undermining/Tunneling No -Circular Undermining No -Exudate Amt Medium (34-66%) -Exudate Type Serosanguineous -Wound Margin Flat & Intact -Granulation Amt Medium (34-66%) -Granulation Quality Red -Slough/Fibrin Yes -Necrosis Amt Small (1-33%) -Necrotic Tissue Type Adherent Slough -Structure Exposed N/A -Texture (Martha-wound Skin Appearance) Assessed Excoriation Localized Edema -Moisture (Martha-wound Skin Appearance Assessed ) Dry/Scaly -Color (Martha-wound Skin Appearance) Assessed -Temperature (Martha-wound Skin No Abnormality Appearance) (Pt Warm) -Tenderness on Palpation (Martha-wound No Skin Appearance) -Ulcer Cleansing Wound Cleanser -Foul Odor after Cleansing No -Anesthetic Used 4% Lidocaine Solution #21 Right Foot-Toes w/Metatarsal Head circumfrential -Combined with other wound No -Current Size (cm) - Length 5 -Current Size (cm) - Width 1.2 -Current Size (cm) - Depth 0.2 -Total Square Cm 6.0 -Photo Taken No -Epithelialization Medium 34-66% -Tunneling No -Undermining/Tunneling No -Circular Undermining No -Exudate Amt Large (67-100%) -Exudate Type Serosanguineous -Wound Margin Fibrotic Scar, Thickened Scar -Granulation Amt Medium (34-66%) -Granulation Quality Red -Slough/Fibrin Yes -Necrosis Amt Medium (34-66%) -Necrotic Tissue Type Adherent Slough -Structure Exposed N/A -Texture (Martha-wound Skin Appearance) Assessed Excoriation Localized Edema -Moisture (Martha-wound Skin Appearance Assessed ) Maceration Weeping -Color (Martha-wound Skin Appearance) Assessed -Temperature (Martha-wound Skin No Abnormality Appearance) (Pt Warm) -Tenderness on Palpation (Martha-wound No Skin Appearance) -Ulcer Cleansing Wound Cleanser -Foul Odor after Cleansing No -Anesthetic Used 4% Lidocaine Solution [Edema Assessment] -Lower Limb Edema Present Yes -Right Calf (cm) 37 -Right Ankle (cm) 29.5 -Left Calf (cm) 37.0 WC - Nurse 2 - General Ulcer CM Notes Start: 02/08/18 10:34 Freq: Status: Active Protocol: Activity Type Activity Date Activity User E-Sign Co-Sign Detail Recorded Client Recorded Date Recorded By Document 03/02/18 08:38 [id number] 03/02/18 08:43 03/02/18 08:38 Wound Center Nurse 2 [Procedure/Treatment] #13 R Med Heel -Time 08:42 -Correct Patient Yes -Correct Side, Site, Position Yes -Correct Procedure Yes -Procedure Performed Yes -Type of Procedure Debridement -Clinical Debridement Subcutaneous -Post Debridement Size (cm) - Length 2.3 -Post Debridement Size (cm) - Width 2.3 -Post Debridement Size (cm) - Depth 0.1 -Total Square Cm 5.29 -Wound/Ulcer Outcome Not Healed -Ulcer Cleansing Rinsed/ Irrigated with Saline -Foul Odor after Cleansing No -Bioengineered Tissue No -Topical Lidocaine (%) 4 -Bleeding Controlled with Pressure -Treatment Response Procedure Tolerated Well #21 Right Foot-Toes w/Metatarsal Head circumfrential -Time 08:42 -Correct Patient Yes -Correct Side, Site, Position Yes -Correct Procedure Yes -Procedure Performed Yes -Type of Procedure Debridement -Clinical Debridement Subcutaneous -Post Debridement Size (cm) - Length 5.1 -Post Debridement Size (cm) - Width 1.3 -Post Debridement Size (cm) - Depth 0.2 -Total Square Cm 6.63 -Wound/Ulcer Outcome Not Healed -Ulcer Cleansing Rinsed/ Irrigated with Saline -Foul Odor after Cleansing No -Bioengineered Tissue No -Topical Lidocaine (%) 4 -Bleeding Controlled with Pressure -Treatment Response Procedure Tolerated Well [See Physician Procedure note for Specifics] Pain Scale: 0-10 Numeric [Pain] -Is Patient Pain Free? Yes Musculoskeletal: No Tenderness to Palpation of Joints or Extremities, Muscle Wasting Neurological: - - Lack of epicritic sensation light touch bilateral Psych/Mental Status: Normal Affect, Appropriate Debridement Note Post-Debridement Measurements/Treatment WC - Nurse 2 - General Ulcer CM Notes Start: 02/08/18 10:34 Freq: Status: Active Protocol: Activity Type Activity Date Activity User E-Sign Co-Sign Detail Recorded Client Recorded Date Recorded By Document 02/09/18 08:47 [id number] 02/09/18 08:49 Document 02/16/18 08:42 [id number] 02/16/18 08:46 Document 02/23/18 08:43 [id number] 02/23/18 08:46 Document 03/02/18 08:38 [id number] 03/02/18 08:43 02/09/18 02/16/18 02/23/18 08:47 08:42 08:43 Wound Center Nurse 2 #13 R Med Heel -Time 08:47 08:44 08:44 -Correct Patient Yes Yes Yes -Correct Side, Site, Position Yes Yes Yes -Correct Procedure Yes Yes Yes -Procedure Performed Yes Yes Yes -Type of Procedure Debridement Debridement Debridement -Clinical Debridement Subcutaneous Subcutaneous Subcutaneous -Post Debridement Size (cm) - Length 2.3 3.1 2.6 -Post Debridement Size (cm) - Width 3.1 2 2.6 -Post Debridement Size (cm) - Depth 0.1 0.1 0.2 -Total Square Cm 7.13 6.2 6.76 -Wound/Ulcer Outcome Not Healed Not Healed Not Healed -Ulcer Cleansing Wound Cleanser Rinsed/ Rinsed/ Irrigated with Irrigated with Saline Saline -Foul Odor after Cleansing No No No -Bioengineered Tissue Yes Yes Yes -Type of bioengineered Tissue EPIFIX EPIFIX EPIFIX -Expiration Date 11/05/22 11/05/22 11/05/22 -Product Lot Number [id number] -Percent Used 100 100 100 -Saline Lot Number [id number] -Topical Lidocaine (%) -Bleeding Controlled with Pressure Pressure Pressure -Treatment Response Procedure Procedure Procedure Tolerated Well Tolerated Well Tolerated Well #21 Right Foot-Toes w/Metatarsal Head circumfrential -Time 08:48 08:45 08:45 -Correct Patient Yes Yes Yes -Correct Side, Site, Position Yes Yes Yes -Correct Procedure Yes Yes Yes -Procedure Performed Yes Yes Yes -Type of Procedure Debridement Debridement Debridement -Clinical Debridement Subcutaneous Subcutaneous Subcutaneous -Post Debridement Size (cm) - Length 3 4 5.8 -Post Debridement Size (cm) - Width 2.1 1.6 2.0 -Post Debridement Size (cm) - Depth 0.1 0.1 0.2 -Total Square Cm 6.3 6.4 11.60 -Wound/Ulcer Outcome Not Healed Not Healed Not Healed -Ulcer Cleansing Rinsed/ Rinsed/ Rinsed/ Irrigated with Irrigated with Irrigated with Saline Saline Saline -Foul Odor after Cleansing No No No -Bioengineered Tissue Yes Yes Yes -Type of bioengineered Tissue EPIFIX EPIFIX EPIFIX -Expiration Date 11/05/22 11/05/22 11/05/22 -Product Lot Number [id number] -Percent Used 100 100 100 -Saline Lot Number [id number] -Topical Lidocaine (%) -Bleeding Controlled with Pressure Pressure Pressure -Treatment Response Procedure Procedure Procedure Tolerated Well Tolerated Well Tolerated Well Pain Scale: 0-10 Numeric Is Patient Pain Free? Yes Yes Yes 03/02/18 08:38 Wound Center Nurse 2 #13 R Med Heel -Time 08:42 -Correct Patient Yes -Correct Side, Site, Position Yes -Correct Procedure Yes -Procedure Performed Yes -Type of Procedure Debridement -Clinical Debridement Subcutaneous -Post Debridement Size (cm) - Length 2.3 -Post Debridement Size (cm) - Width 2.3 -Post Debridement Size (cm) - Depth 0.1 -Total Square Cm 5.29 -Wound/Ulcer Outcome Not Healed -Ulcer Cleansing Rinsed/ Irrigated with Saline -Foul Odor after Cleansing No -Bioengineered Tissue No -Type of bioengineered Tissue -Expiration Date -Product Lot Number -Percent Used -Saline Lot Number -Topical Lidocaine (%) 4 -Bleeding Controlled with Pressure -Treatment Response Procedure Tolerated Well #21 Right Foot-Toes w/Metatarsal Head circumfrential -Time 08:42 -Correct Patient Yes -Correct Side, Site, Position Yes -Correct Procedure Yes -Procedure Performed Yes -Type of Procedure Debridement -Clinical Debridement Subcutaneous -Post Debridement Size (cm) - Length 5.1 -Post Debridement Size (cm) - Width 1.3 -Post Debridement Size (cm) - Depth 0.2 -Total Square Cm 6.63 -Wound/Ulcer Outcome Not Healed -Ulcer Cleansing Rinsed/ Irrigated with Saline -Foul Odor after Cleansing No -Bioengineered Tissue No -Type of bioengineered Tissue -Expiration Date -Product Lot Number -Percent Used -Saline Lot Number -Topical Lidocaine (%) 4 -Bleeding Controlled with Pressure -Treatment Response Procedure Tolerated Well Pain Scale: 0-10 Numeric Is Patient Pain Free? Yes Wound debrided: heel Laterality: Left Wound Grade/Stage: grade 3 Type of Debridement: Excisional debridement Anesthesia Used: 4% Lidocaine Solution Depth: in the subcutaneous layer Percentage of wound debrided: 100 Instrument Used: #15 blade Tissue Removed: fibrous, devitalized subcutaneous, biofilm, slough Severity: Fat Layer Exposed Amount of bleeding with debridement: Mild Bleeding Controlled with: Pressure Patient tolerated procedure well - Additional Wound Wound debrided: toe Laterality: Left Wound Grade/Stage: grade 1 Type of Debridement: Excisional debridement Anesthesia Used: 4% Lidocaine Solution Depth: in the subcutaneous layer Percentage of wound debrided: 100 Instrument Used: #15 blade Tissue Removed: fibrous, devitalized subcutaneous, biofilm, slough Severity: Fat Layer Exposed Amount of bleeding with debridement: Mild Bleeding Controlled with: Pressure Patient tolerated procedure: Patient tolerated procedure well Assessment/Plan Active Problems Ulcer of right lower extremity with fat layer exposed (Chronic) Ulcer of left lower extremity, limited to breakdown of skin (Chronic) Complete below knee amputation of left lower extremity (Chronic) Morbid obesity (Chronic) Chronic kidney disease (CKD) (Chronic) Type 2 diabetes mellitus with diabetic polyneuropathy (Chronic) Malnutrition (Chronic) Lymphedema (Chronic) Edema of both legs (Chronic) Assessment: ulcer right forefoot (digit 2). right heel ulcer muscle involved and exposed fascia without infection noted today (previous grade 3); s/p surgical debridement and application of advance wound care products (amniofil and epicord). Left below-knee amputation sub-hemorrhagic tissue with continued weeping noted; no infection. Lymphedema. Ulcer left stump site with skin layer exposed, no infection. Chronic lower extremity edema and venous insufficiency. Morbid obesity. Type 2 diabetes uncontrolled with peripheral neuropathy. CKD. Hypertension. Left below-knee amputation. Malnutrition. Delayed wound healing. Nonadherence to treatment plan Plan: I reviewed and discussed his case debridement done as documented above in the clinical panel, procedure was well tolerated. Epifix (last approved) was applied to the right heel last week. To change the dressing daily with Guera to the sites. Continue compression and elevate lower extreity when sitting and in bed. Optimal blood sugar contol. Continue protein suppplements and i ncreased protein in diet. To continue hyperbaric oxygen therapy as scheduled on complaint basis. If his left limb continues to have no weeping next week the plan is to progress him into his shrink wrap with the intention to progress to his leg prosthetic. To improve compliance with compression pumps. I advised him to at least get a second session even if it is reduced in time each day. He reports he is doing this and I recommend he continues. Follow up in 1 week with at the wound healing center or call sooner if he has any questions or concerns.
--- NOTE | 2018-03-02 11:20 | PCM.HBO.PN ---
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 Left toe ulcer DEL BARRIOS is a 57 year old currently undergoing hyperbaric oxygen therapy for diabetic toe and heel ulcers with necrosis of bone, Brooks Grade 3 Progress: The patient appears to be tolerating hyperbaric oxygen therapy well. This is his 2nd treatment course and his 22nd session of hyperbaric oxygen therapy. Tolerance of hyperbaric oxygen therapy: Hyperbaric oxygen therapy was administered as per the facility's protocol. The patient tolerated hyperbaric oxygen therapy well, without complaints or complications. Upon emergence from the hyperbaric chamber, the patient's vital signs remained stable. Patient was discharged in good condition. 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) Delayed wound healing (Chronic) Malnutrition (Chronic) Venous insufficiency (Chronic) Lymphedema (Chronic) Edema of both legs (Chronic) GERD (gastroesophageal reflux disease) (Chronic) Hypertension (Chronic) Hyperlipemia (Chronic) Morbid obesity with BMI of 45.0-49.9, adult (Chronic) Hyperlipidemia associated with type 2 diabetes mellitus (Chronic) 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 Allergies/Adverse Reactions: Allergies bee venom protein (honey bee) Allergy (Verified 12/13/17 09:30) Swelling metronidazole [From Flagyl] Allergy (Verified 12/13/17 09:30) Itching Home Medications: Ambulatory Orders Medication Instructions Recorded Atorvastatin Calcium [Lipitor] 10 mg PO QHS 01/08/17 Brimonidine Tartrate 0.2% 1 drop EACH EYE BID 01/08/17 [Brimonidine 0.2% 5Ml Bottle] Ergocalciferol [Vitamin D] 50,000 unit PO FR 01/08/17 Gabapentin [Neurontin] 1,600 mg PO QHS 01/08/17 Gabapentin [Neurontin] 600 mg PO DAILY 01/08/17 Insulin U-500 [Humulin R U-500 105 units SC DINNER 01/08/17 ([facility])] Insulin U-500 [Humulin R U-500 105 units SC LUNCH 01/08/17 ([facility])] Insulin U-500 [Humulin R U-500 160 units SC BREAKFAST 01/08/17 ([facility])] Latanoprost 0.005% [Xalatan 1 drop EACH EYE QHS 01/08/17 Opthalmic] Losartan Potassium [Cozaar] 50 mg PO DAILY 01/08/17 Nebivolol HCl [Bystolic (Beta 10 mg PO DAILY 01/08/17 Ak[facility])] Omeprazole [Prilosec] 40 mg PO DAILY 01/08/17 Acetaminophen [Tylenol Tablet] 650 mg PO Q6H PRN PRN tablet 09/07/17 Clopidogrel Bisulfate [Plavix] 75 mg PO DAILY 09/07/17 Menthol/Lanolin/Calamine/Znox 1 applic TOPICAL 0600,2200 tube 09/21/17 [Calmoseptine Ointment] Nutritional Supplement [Madhu - 1 packet PO BIDCM #60 packet 09/21/17 [facility]LA[facility]OR] Nystatin Powder [Mycostatin Powder] 1 applic TOPICAL 0600,2200 bottle 09/21/17 Ferrous Sulfate [Iron] 325 mg PO BID 10/14/17 Clindamycin HCl 300 mg PO [id number] #40 cap 12/13/17 Maternal Family History: Diabetes Paternal Family History: Hypertension Sibling Family History: Diabetes Smoking Status: Former smoker Physical Exam Vital Signs Temp Pulse Resp BP 97.8 F 91 18 141/71 H 03/02/18 08:21 03/02/18 08:21 03/02/18 08:21 03/02/18 08:21 General: Alert, Oriented x3, Cooperative, No apparent distress HEENT: Atraumatic Lungs: Normal air movement Psych/Mental Status: Normal Affect Assessment/Plan Active Problems Ulcer of right lower extremity with fat layer exposed (Chronic) Ulcer of left lower extremity, limited to breakdown of skin (Chronic) Complete below knee amputation of left lower extremity (Chronic) Morbid obesity (Chronic) Chronic kidney disease (CKD) (Chronic) Type 2 diabetes mellitus with diabetic polyneuropathy (Chronic) Malnutrition (Chronic) Lymphedema (Chronic) Edema of both legs (Chronic) The patient appears to be tolerating hyperbaric oxygen therapy well, which will be continued as per the patient's medical plan.
[2018-03-02 11:25] LABS: Bedside Glucose 148 mg/dL (70-110)
[2018-03-03 10:05] LABS: Bedside Glucose 134 mg/dL (70-110)
--- NOTE | 2018-03-03 10:46 | HBO.PN.PCM_ITS ---
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 Left toe ulcer DEL BARRIOS is a 57 year old currently undergoing hyperbaric oxygen therapy for diabetic toe and heel ulcers with necrosis of bone, Brooks Grade 3 Progress: The patient appears to be tolerating hyperbaric oxygen therapy well. This is his 2nd treatment course and his 23rd session of hyperbaric oxygen therapy. Tolerance of hyperbaric oxygen therapy: Hyperbaric oxygen therapy was admini stered as per the facility's protocol. The patient tolerated hyperbaric oxygen therapy well, without complaints or complications. Upon emergence from the hyperbaric chamber, the patient's vital signs remained stable. Patient was discharged in good condition. 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) Delayed wound healing (Chronic) Malnutrition (Chronic) Venous insufficiency (Chronic) Lymphedema (Chronic) Edema of both legs (Chronic) GERD (gastroesophageal reflux disease) (Chronic) Hypertension (Chronic) Hyperlipemia (Chronic) Morbid obesity with BMI of 45.0-49.9, adult (Chronic) Hyperlipidemia associated with type 2 diabetes mellitus (Chronic) 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 Allergies/Adverse Reactions: Allergies bee venom protein (honey bee) Allergy (Verified 12/13/17 09:30) Swelling metronidazole [From Flagyl] Allergy (Verified 12/13/17 09:30) Itching Home Medications: Ambulatory Orders Medication Instructions Recorded Atorvastatin Calcium [Lipitor] 10 mg PO QHS 01/08/17 Brimonidine Tartrate 0.2% 1 drop EACH EYE BID 01/08/17 [Brimonidine 0.2% 5Ml Bottle] Ergocalciferol [Vitamin D] 50,000 unit PO FR 01/08/17 Gabapentin [Neurontin] 1,600 mg PO QHS 01/08/17 Gabapentin [Neurontin] 600 mg PO DAILY 01/08/17 Insulin U-500 [Humulin R U-500 105 units SC DINNER 01/08/17 ([facility])] Insulin U-500 [Humulin R U-500 105 units SC LUNCH 01/08/17 ([facility])] Insulin U-500 [Humulin R U-500 160 units SC BREAKFAST 01/08/17 ([facility])] Latanoprost 0.005% [Xalatan 1 drop EACH EYE QHS 01/08/17 Opthalmic] Losartan Potassium [Cozaar] 50 mg PO DAILY 01/08/17 Nebivolol HCl [Bystolic (Beta 10 mg PO DAILY 01/08/17 Akira)] Omeprazole [Prilosec] 40 mg PO DAILY 01/08/17 Acetaminophen [Tylenol Tablet] 650 mg PO Q6H PRN PRN tablet 09/07/17 Clopidogrel Bisulfate [Plavix] 75 mg PO DAILY 09/07/17 Menthol/Lanolin/Calamine/Znox 1 applic TOPICAL 0600,2200 tube 09/21/17 [Calmoseptine Ointment] Nutritional Supplement [Madhu - 1 packet PO BIDCM #60 packet 09/21/17 [facility] FLAVOR] Nystatin Powder [Mycostatin Powder] 1 applic TOPICAL 0600,2200 bottle 09/21/17 Ferrous Sulfate [Iron] 325 mg PO BID 10/14/17 Clindamycin HCl 300 mg PO [id number] #40 cap 12/13/17 Maternal Family History: Diabetes Paternal Family History: Hypertension Sibling Family History: Diabetes Smoking Status: Former smoker Physical Exam Vital Signs Temp Pulse Resp BP 97 F L 84 16 132/88 H 03/02/18 09:30 03/02/18 09:30 03/02/18 09:30 03/02/18 09:30 General: Alert, Oriented x3, Cooperative, No apparent distress HEENT: Atraumatic Lungs: Normal air movement Psych/Mental Status: Normal Affect Assessment/Plan Active Problems Ulcer of right lower extremity with fat layer exposed (Chronic) Ulcer of left lower extremity, limited to breakdown of skin (Chronic) Complete below knee amputation of left lower extremity (Chronic) Morbid obesity (Chronic) Chronic kidney disease (CKD) (Chronic) Type 2 diabetes mellitus with diabetic polyneuropathy (Chronic) Malnutrition (Chronic) Lymphedema (Chronic) Edema of both legs (Chronic) The patient appears to be tolerating hyperbaric oxygen therapy well, which will be continued as per the patient's medical plan.
[2018-03-03 10:52] VITALS: BP 114/94; BP 137/76; PULSE 80; PULSE 88; RESP 16; RESP 18; TEMP 36.1
[2018-03-03 12:15] LABS: Bedside Glucose 127 mg/dL (70-110)
[2018-03-04 09:41] LABS: Bedside Glucose 312 mg/dL (70-110)
[2018-03-04 10:16] VITALS: BP 145/77; BP 155/69; PULSE 79; PULSE 85; RESP 16; TEMP 35.9; TEMP 36.1
--- NOTE | 2018-03-04 10:16 | PCM.HBO.PN ---
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 Left toe ulcer DEL BARRIOS is a 57 year old currently undergoing hyperbaric oxygen therapy for diabetic toe and heel ulcers with necrosis of bone, Brooks Grade 3 Progress: The patient appears to be tolerating hyperbaric oxygen therapy well. This is his 2nd treatment course and his 24th session of hyperbaric oxygen therapy. Tolerance of hyperbaric oxygen therapy: Hyperbaric oxygen therapy was administered as per the facility's protocol. The patient tolerated hyperbaric oxygen therapy well, without complaints or complications. Upon emergence from the hyperbaric chamber, the patient's vital signs remained stable. Patient was discharged in good condition. 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) Delayed wound healing (Chronic) Malnutrition (Chronic) Venous insufficiency (Chronic) Lymphedema (Chronic) Edema of both legs (Chronic) GERD (gastroesophageal reflux disease) (Chronic) Hypertension (Chronic) Hyperlipemia (Chronic) Morbid obesity with BMI of 45.0-49.9, adult (Chronic) Hyperlipidemia associated with type 2 diabetes mellitus (Chronic) 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 Allergies/Adverse Reactions: Allergies bee venom protein (honey bee) Allergy (Verified 12/13/17 09:30) Swelling metronidazole [From Flagyl] Allergy (Verified 12/13/17 09:30) Itching Home Medications: Ambulatory Orders Medication Instructions Recorded Atorvastatin Calcium [Lipitor] 10 mg PO QHS 01/08/17 Brimonidine Tartrate 0.2% 1 drop EACH EYE BID 01/08/17 [Brimonidine 0.2% 5Ml Bottle] Ergocalciferol [Vitamin D] 50,000 unit PO FR 01/08/17 Gabapentin [Neurontin] 1,600 mg PO QHS 01/08/17 Gabapentin [Neurontin] 600 mg PO DAILY 01/08/17 Insulin U-500 [Humulin R U-500 105 units SC DINNER 01/08/17 ([facility])] Insulin U-500 [Humulin R U-500 105 units SC LUNCH 01/08/17 ([facility])] Insulin U-500 [Humulin R U-500 160 units SC BREAKFAST 01/08/17 ([facility])] Latanoprost 0.005% [Xalatan 1 drop EACH EYE QHS 01/08/17 Opthalmic] Losartan Potassium [Cozaar] 50 mg PO DAILY 01/08/17 Nebivolol HCl [Bystolic (Beta 10 mg PO DAILY 01/08/17 Akira)] Omeprazole [Prilosec] 40 mg PO DAILY 01/08/17 Acetaminophen [Tylenol Tablet] 650 mg PO Q6H PRN PRN tablet 09/07/17 Clopidogrel Bisulfate [Plavix] 75 mg PO DAILY 09/07/17 Menthol/Lanolin/Calamine/Znox 1 applic TOPICAL 0600,2200 tube 09/21/17 [Calmoseptine Ointment] Nutritional Supplement [Madhu - 1 packet PO BIDCM #60 packet 09/21/17 [place]LA[facility]] Nystatin Powder [Mycostatin Powder] 1 applic TOPICAL 0600,2200 bottle 09/21/17 Ferrous Sulfate [Iron] 325 mg PO BID 10/14/17 Clindamycin HCl 300 mg PO [id number] #40 cap 12/13/17 Maternal Family History: Diabetes Paternal Family History: Hypertension Sibling Family History: Diabetes Smoking Status: Former smoker Physical Exam Vital Signs Temp Pulse Resp BP 97 F L 88 18 137/76 H 03/03/18 10:52 03/03/18 10:52 03/03/18 10:52 03/03/18 10:52 Assessment/Plan Active Problems Ulcer of right lower extremity with fat layer exposed (Chronic) Ulcer of left lower extremity, limited to breakdown of skin (Chronic) Complete below knee amputation of left lower extremity (Chronic) Morbid obesity (Chronic) Chronic kidney disease (CKD) (Chronic) Type 2 diabetes mellitus with diabetic polyneuropathy (Chronic) Malnutrition (Chronic) Lymphedema (Chronic) Edema of both legs (Chronic) The patient appears to be tolerating hyperbaric oxygen therapy well, which will be continued as per the patient's medical plan.
[2018-03-04 12:20] LABS: Bedside Glucose 253 mg/dL (70-110)
[2018-03-07 09:40] VITALS: BP 141/78; BP 146/80; PULSE 82; PULSE 85; RESP 16; RESP 18; TEMP 36.2; TEMP 36.3
== END 2018-03-06 23:59 ==
LOC: WC 10:00
PROVIDERS: Family Provider Family Medicine Geriatric Medicine; PCP Family Medicine Geriatric Medicine; Visit Provider Podiatrist
DX: E11.621 Type 2 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with foot ulcer (principal); E11.22 Type 2 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with diabetic chronic kidney disease; E11.42 Type 2 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with diabetic polyneuropathy; N18.9 Chronic kidney disease, unspecified; Z89.512 Acquired absence of left leg below knee; E66.01 Morbid (severe) obesity due to excess calories; Z68.42 Body mass index [BMI] 45.0-49.9, adult; Z71.3 Dietary counseling and surveillance; I89.0 Lymphedema, not elsewhere classified; L97.412 Non-pressure chronic ulcer of right heel and midfoot with fat layer exposed; L97.512 Non-pressure chronic ulcer of other part of right foot with fat layer exposed; E11.65 Type 2 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with hyperglycemia; Z86.718 Personal history of other venous thrombosis and embolism; K21.9 Gastro-esophageal reflux disease without esophagitis; E78.5 Hyperlipidemia, unspecified; Z87.891 Personal history of nicotine dependence
CPT/HCPCS: 11042; 15275; 29581; 82962; 99183; Q4131; G0277

== ENCOUNTER 2018-03-31 08:49 | Outpatient (RCR) | payer MEDICARE, MEDICAID, SELFPAY | END 2018-03-31 09:14 | disposition home or self-care (01) | LOC: DC 08:49 | PROVIDERS: Family Provider Family Medicine Geriatric Medicine; PCP Family Medicine Geriatric Medicine; Visit Provider Podiatrist | DX: E11.42 Type 2 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with diabetic polyneuropathy (principal); E46 Unspecified protein-calorie malnutrition; T14.90XA Injury, unspecified, initial encounter; Z71.3 Dietary counseling and surveillance | CPT/HCPCS: G0108 ==

== ENCOUNTER 2018-04-06 08:00 | Outpatient (RCR) | payer MEDICARE, MEDICAID, SELFPAY ==
[2018-03-07 00:50] VITALS: BP 155/69; PULSE 79; RESP 16; TEMP 35.9
[2018-03-07 09:45] LABS: Bedside Glucose 142 mg/dL (70-110)
[2018-03-07 12:00] LABS: Bedside Glucose 102 mg/dL (70-110)
[2018-03-07 16:13] VITALS: BP 141/78; BP 146/80; PULSE 82; PULSE 85; RESP 16; RESP 18; TEMP 36.2; TEMP 36.3
--- NOTE | 2018-03-07 16:29 | PCM.HBO.PN ---
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) Delayed wound healing (Chronic) Malnutrition (Chronic) Venous insufficiency (Chronic) Lymphedema (Chronic) Edema of both legs (Chronic) GERD (gastroesophageal reflux disease) (Chronic) Hypertension (Chronic) Hyperlipemia (Chronic) Morbid obesity with BMI of 45.0-49.9, adult (Chronic) Hyperlipidemia associated with type 2 diabetes mellitus (Chronic) 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 Allergies/Adverse Reactions: Allergies bee venom protein (honey bee) Allergy (Verified 12/13/17 09:30) Swelling metronidazole [From Flagyl] Allergy (Verified 12/13/17 09:30) Itching Home Medications: Ambulatory Orders Medication Instructions Recorded Atorvastatin Calcium [Lipitor] 10 mg PO QHS 01/08/17 Brimonidine Tartrate 0.2% 1 drop EACH EYE BID 01/08/17 [Brimonidine 0.2% 5Ml Bottle] Ergocalciferol [Vitamin D] 50,000 unit PO FR 01/08/17 Gabapentin [Neurontin] 1,600 mg PO QHS 01/08/17 Gabapentin [Neurontin] 600 mg PO DAILY 01/08/17 Insulin U-500 [Humulin R U-500 105 units SC DINNER 01/08/17 ([facility])] Insulin U-500 [Humulin R U-500 105 units SC LUNCH 01/08/17 ([facility])] Insulin U-500 [Humulin R U-500 160 units SC BREAKFAST 01/08/17 ([facility])] Latanoprost 0.005% [Xalatan 1 drop EACH EYE QHS 01/08/17 Opthalmic] Losartan Potassium [Cozaar] 50 mg PO DAILY 01/08/17 Nebivolol HCl [Bystolic (Beta 10 mg PO DAILY 01/08/17 Akira)] Omeprazole [Prilosec] 40 mg PO DAILY 01/08/17 Acetaminophen [Tylenol Tablet] 650 mg PO Q6H PRN PRN tablet 09/07/17 Clopidogrel Bisulfate [Plavix] 75 mg PO DAILY 09/07/17 Menthol/Lanolin/Calamine/Znox 1 applic TOPICAL 0600,2200 tube 09/21/17 [Calmoseptine Ointment] Nutritional Supplement [Madhu - 1 packet PO BIDCM #60 packet 09/21/17 [place] [facility]LA[facility]] Nystatin Powder [Mycostatin Powder] 1 applic TOPICAL 0600,2200 bottle 09/21/17 Ferrous Sulfate [Iron] 325 mg PO BID 10/14/17 Clindamycin HCl 300 mg PO [id number] #40 cap 12/13/17 Maternal Family History: Diabetes Paternal Family History: Hypertension Sibling Family History: Diabetes Smoking Status: Former smoker Physical Exam Vital Signs Temp Pulse Resp BP 97.1 F L 85 18 141/78 H 03/07/18 16:13 03/07/18 16:13 03/07/18 16:13 03/07/18 16:13 General: Alert, Oriented x3 HEENT: Atraumatic, TM's Clear - Left TM with tube present. Right TM with chronic rupture. Assessment/Plan The patient appears to be tolerating hyperbaric oxygen therapy well, which we will continue as per the patient's medical plan. This is visit #25 today.
[2018-03-08 09:56] LABS: Bedside Glucose 129 mg/dL (70-110)
[2018-03-08 10:12] VITALS: BP 131/69; BP 132/68; PULSE 80; PULSE 91; RESP 16; RESP 18; TEMP 35.9; TEMP 36.1
[2018-03-08 12:10] LABS: Bedside Glucose 134 mg/dL (70-110)
--- NOTE | 2018-03-08 12:30 | HBO.PN.PCM_ITS ---
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 Left toe ulcer DEL BARRIOS is a 57 year old currently undergoing hyperbaric oxygen therapy for left diabetic foot ulcer with necrosis of bone, Brooks Grade 3 - heel; Left toe ulcer Progress: Today represents the 26th such session of hyperbaric oxygen therapy, which the patient appears to be tolerating well. Tolerance of hyperbaric oxygen therapy: Percussion therapy was administered as per the facility's protocol. Patient tolerated hyperbaric oxygen therapy well, without complaints or complications. Upon emergence from the hyperbaric chamber, the patient's signs remained stable. The patient was discharged in good condition. 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) Delayed wound healing (Chronic) Malnutrition (Chronic) Venous insufficiency (Chronic) Lymphedema (Chronic) Edema of both legs (Chronic) GERD (gastroesophageal reflux disease) (Chronic) Hypertension (Chronic) Hyperlipemia (Chronic) Morbid obesity with BMI of 45.0-49.9, adult (Chronic) Hyperlipidemia associated with type 2 diabetes mellitus (Chronic) 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 Allergies/Adverse Reactions: Allergies bee venom protein (honey bee) Allergy (Verified 12/13/17 09:30) Swelling metronidazole [From Flagyl] Allergy (Verified 12/13/17 09:30) Itching Home Medications: Ambulatory Orders Medication Instructions Recorded Atorvastatin Calcium [Lipitor] 10 mg PO QHS 01/08/17 Brimonidine Tartrate 0.2% 1 drop EACH EYE BID 01/08/17 [Brimonidine 0.2% 5Ml Bottle] Ergocalciferol [Vitamin D] 50,000 unit PO FR 01/08/17 Gabapentin [Neurontin] 1,600 mg PO QHS 01/08/17 Gabapentin [Neurontin] 600 mg PO DAILY 01/08/17 Insulin U-500 [Humulin R U-500 105 units SC DINNER 01/08/17 ([facility])] Insulin U-500 [Humulin R U-500 105 units SC LUNCH 01/08/17 ([facility])] Insulin U-500 [Humulin R U-500 160 units SC BREAKFAST 01/08/17 ([facility])] Latanoprost 0.005% [Xalatan 1 drop EACH EYE QHS 01/08/17 Opthalmic] Losartan Potassium [Cozaar] 50 mg PO DAILY 01/08/17 Nebivolol HCl [Bystolic (Beta 10 mg PO DAILY 01/08/17 Akira)] Omeprazole [Prilosec] 40 mg PO DAILY 01/08/17 Acetaminophen [Tylenol Tablet] 650 mg PO Q6H PRN PRN tablet 09/07/17 Clopidogrel Bisulfate [Plavix] 75 mg PO DAILY 09/07/17 Menthol/Lanolin/Calamine/Znox 1 applic TOPICAL 0600,2200 tube 09/21/17 [Calmoseptine Ointment] Nutritional Supplement [Madhu - 1 packet PO BIDCM #60 packet 09/21/17 [place] [facility]LA[facility]] Nystatin Powder [Mycostatin Powder] 1 applic TOPICAL 0600,2200 bottle 09/21/17 Ferrous Sulfate [Iron] 325 mg PO BID 10/14/17 Clindamycin HCl 300 mg PO [id number] #40 cap 12/13/17 Maternal Family History: Diabetes Paternal Family History: Hypertension Sibling Family History: Diabetes Smoking Status: Former smoker Physical Exam Vital Signs Temp Pulse Resp BP 96.9 F L 91 18 131/69 H 03/08/18 10:12 03/08/18 10:12 03/08/18 10:12 03/08/18 10:12 General: Alert, Oriented x3, Cooperative, No apparent distress, Well developed, Well nourished HEENT: Atraumatic, PERRLA, EOMI, Normocephalic Lungs: Normal air movement Psych/Mental Status: Normal Affect, Appropriate, Alert and oriented to time, place, person, mood and affect Assessment/Plan The patient appears to be tolerating hyperbaric oxygen therapy well, which will be continued as per the patient's medical plan.
[2018-03-09 09:20] VITALS: BP 123/58; BP 128/72; PULSE 82; PULSE 90; RESP 16; TEMP 35.8; TEMP 36.2
[2018-03-09 11:15] LABS: Bedside Glucose 123 mg/dL (70-110)
--- NOTE | 2018-03-09 11:37 | PCM.HBO.PN ---
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 Left toe ulcer DEL BARRIOS is a 57 year old currently undergoing hyperbaric oxygen therapy for left diabetic foot ulcer with necrosis of bone, Brooks Grade 3 - heel; Left toe ulcer Progress: Today represents the 27th such session of hyperbaric oxygen therapy, which the patient appears to be tolerating well. Tolerance of hyperbaric oxygen therapy: Percussion therapy was administered as per the facility's protocol. Patient tolerated hyperbaric oxygen therapy well, without complaints or complications. Upon emergence from the hyperbaric chamber, the patient's signs remained stable. The patient was discharged in good condition. 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) Delayed wound healing (Chronic) Malnutrition (Chronic) Venous insufficiency (Chronic) Lymphedema (Chronic) Edema of both legs (Chronic) GERD (gastroesophageal reflux disease) (Chronic) Hypertension (Chronic) Hyperlipemia (Chronic) Morbid obesity with BMI of 45.0-49.9, adult (Chronic) Hyperlipidemia associated with type 2 diabetes mellitus (Chronic) 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 Allergies/Adverse Reactions: Allergies bee venom protein (honey bee) Allergy (Verified 12/13/17 09:30) Swelling metronidazole [From Flagyl] Allergy (Verified 12/13/17 09:30) Itching Home Medications: Ambulatory Orders Medication Instructions Recorded Atorvastatin Calcium [Lipitor] 10 mg PO QHS 01/08/17 Brimonidine Tartrate 0.2% 1 drop EACH EYE BID 01/08/17 [Brimonidine 0.2% 5Ml Bottle] Ergocalciferol [Vitamin D] 50,000 unit PO FR 01/08/17 Gabapentin [Neurontin] 1,600 mg PO QHS 01/08/17 Gabapentin [Neurontin] 600 mg PO DAILY 01/08/17 Insulin U-500 [Humulin R U-500 105 units SC DINNER 01/08/17 ([facility])] Insulin U-500 [Humulin R U-500 105 units SC LUNCH 01/08/17 ([facility])] Insulin U-500 [Humulin R U-500 160 units SC BREAKFAST 01/08/17 ([facility])] Latanoprost 0.005% [Xalatan 1 drop EACH EYE QHS 01/08/17 Opthalmic] Losartan Potassium [Cozaar] 50 mg PO DAILY 01/08/17 Nebivolol HCl [Bystolic (Beta 10 mg PO DAILY 01/08/17 Akira)] Omeprazole [Prilosec] 40 mg PO DAILY 01/08/17 Acetaminophen [Tylenol Tablet] 650 mg PO Q6H PRN PRN tablet 09/07/17 Clopidogrel Bisulfate [Plavix] 75 mg PO DAILY 09/07/17 Menthol/Lanolin/Calamine/Znox 1 applic TOPICAL 0600,2200 tube 09/21/17 [Calmoseptine Ointment] Nutritional Supplement [Madhu - 1 packet PO BIDCM #60 packet 09/21/17 [place] [facility]LA[facility]OR] Nystatin Powder [Mycostatin Powder] 1 applic TOPICAL 0600,2200 bottle 09/21/17 Ferrous Sulfate [Iron] 325 mg PO BID 10/14/17 Clindamycin HCl 300 mg PO [id number] #40 cap 12/13/17 Maternal Family History: Diabetes Paternal Family History: Hypertension Sibling Family History: Diabetes Smoking Status: Former smoker Physical Exam Vital Signs Temp Pulse Resp BP 97.1 F L 90 16 123/58 H 03/09/18 09:20 03/09/18 09:20 03/09/18 09:20 03/09/18 09:20 General: Alert, Oriented x3, Cooperative, No apparent distress HEENT: Atraumatic Lungs: Normal air movement Cardiovascular: Regular rate Psych/Mental Status: Normal Affect Assessment/Plan The patient appears to be tolerating hyperbaric oxygen therapy well, which will be continued as per the patient's medical plan.
[2018-03-09 12:34] VITALS: BP 107/45; PULSE 81; RESP 18; TEMP 35.3
[2018-03-09 15:31] LABS: Bedside Glucose 139 mg/dL (70-110)
--- NOTE | 2018-03-09 16:50 | PCM.WC.PN ---
(1) Ulcer of right lower extremity with fat layer exposed Status: Chronic Current Visit: Yes Code(s): L97.912 - Non-pressure chronic ulcer of unspecified part of right lower leg with fat layer exposed (2) Ulcer of left lower extremity, limited to breakdown of skin Status: Chronic Current Visit: Yes Code(s): L97.921 - Non-pressure chronic ulcer of unspecified part of left lower leg limited to breakdown of skin (3) Morbid obesity Status: Chronic Current Visit: Yes Code(s): E66.01 - Morbid (severe) obesity due to excess calories (4) Venous stasis dermatitis Status: Chronic Current Visit: Yes Code(s): I87.2 - Venous insufficiency (chronic) (peripheral) (5) Type 2 diabetes mellitus with diabetic polyneuropathy Status: Chronic Current Visit: Yes Code(s): E11.42 - Type 2 diabetes mellitus with diabetic polyneuropathy (6) Delayed wound healing Status: Chronic Current Visit: Yes Code(s): T14.8 - Other injury of unspecified body region (7) Malnutrition Status: Chronic Current Visit: Yes Code(s): E46 - Unspecified protein-calorie malnutrition Type of Wound Date of Service: 03/09/18 Chief Complaint: 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 Left toe ulcer History of Wound: 57-year-old white male returns to clinic for follow-up of bilateral leg ulcers and right foot ulcers. He denies fever, chill, nausea, vomiting, loss of appetite. He underwent surgical debridement application of advanced wound care products, Amniofil and epi fix September 14, 2017. He has also been having serial applications of epi fix in the wound healing center. He is increased with elevation at home and his leg size is significantly reduced. Presents in a wheelchair today. He is amendable to undergo hyperbaric oxygen therapy and been attending the sessions as advised; he has been tolerating the sessions. He denies odors or redness. He has demonstrated significant delays in healing. He relates his left stump site is barely leaking fluid. Progress of Wound: Improving - Physical Exam Vital Signs Temp Pulse Resp BP 95.5 F L 81 18 107/45 L 03/09/18 12:34 03/09/18 12:34 03/09/18 12:34 03/09/18 12:34 General: Alert, Oriented x3, Cooperative Extremities: No cyanosis, Capillary Refill Less than 3 Seconds, No Calf Tenderness - negative suzanne and bean right, Diminished Peripheral Pulses, Edema - bilateral decreased, - - left below knee amputation site with decreased weeping and subhemorrhagic tissue exposed Skin: Ulcer/ Wound - no purulence, no erythema, no streaking, no infection noted. no maceration or eschar or deep tissue exposed, - - peripheral skin is hairless and atrophic Wound Measurements and Assessment WC - Nurse 1 - General Ulcer Measurement Start: 03/07/18 16:13 Freq: Status: Active Protocol: Activity Type Activity Date Activity User E-Sign Co-Sign Detail Recorded Client Recorded Date Recorded By Document 03/09/18 12:34 ANUP [id number] 03/09/18 12:41 ANUP 03/09/18 12:34 Wound Center Nurse 1 [Ulcer Assessment] #13 R Med Heel -Combined with other wound No -Current Size (cm) - Length 2.0 -Current Size (cm) - Width 2.3 -Current Size (cm) - Depth 0.1 -Total Square Cm 4.60 -Photo Taken No -Epithelialization Small 1-33% -Tunneling No -Undermining/Tunneling No -Circular Undermining No -Classification - Thickness Full Thickness without Exposed Support Structure -Exudate Amt Small (1-33%) -Exudate Type Serosanguineous -Wound Margin Distinct, Outline Attached -Granulation Amt Small (1-33%) -Granulation Quality Red -Slough/Fibrin Yes -Necrosis Amt Small (1-33%) -Necrotic Tissue Type Adherent Slough -Structure Exposed Fascia Fat Layer Exposed -Texture (Martha-wound Skin Appearance) Assessed Localized Edema Scarring -Moisture (Martha-wound Skin Appearance No Abnormality ) Assessed -Color (Martha-wound Skin Appearance) No Abnormality Assessed -Temperature (Martha-wound Skin No Abnormality Appearance) (Pt Warm) -Tenderness on Palpation (Martha-wound No Skin Appearance) -Ulcer Cleansing Wound Cleanser -Foul Odor after Cleansing No -Anesthetic Used 4% Lidocaine Solution #21 Right Foot-Toes w/Metatarsal Head circumfrential -Combined with other wound No -Current Size (cm) - Length 0.6 -Current Size (cm) - Width 0.4 -Current Size (cm) - Depth 0.2 -Total Square Cm 0.24 -Photo Taken No -Epithelialization Large 67-100% -Tunneling No -Undermining/Tunneling No -Circular Undermining No -Classification - Thickness Full Thickness without Exposed Support Structure -Exudate Amt Small (1-33%) -Exudate Type Sanguineous -Wound Margin Distinct, Outline Attached -Granulation Amt Large (67-100%) -Granulation Quality [place] -Slough/Fibrin Yes -Necrosis Amt Small (1-33%) -Necrotic Tissue Type Adherent Slough -Structure Exposed Fascia Fat Layer Exposed -Texture (Martha-wound Skin Appearance) Assessed Friable Localized Edema Scarring -Moisture (Martha-wound Skin Appearance No Abnormality ) Assessed -Color (Martha-wound Skin Appearance) No Abnormality Assessed -Temperature (Martha-wound Skin No Abnormality Appearance) (Pt Warm) -Tenderness on Palpation (Martha-wound No Skin Appearance) -Ulcer Cleansing Wound Cleanser -Foul Odor after Cleansing No -Anesthetic Used 4% Lidocaine Solution [Edema Assessment] -Lower Limb Edema Present Yes -Right Calf (cm) 37.5 -Right Ankle (cm) 28.3 -Left Calf (cm) 35.8 WC - Nurse 2 - General Ulcer CM Notes Start: 03/07/18 16:13 Freq: Status: Active Protocol: Activity Type Activity Date Activity User E-Sign Co-Sign Detail Recorded Client Recorded Date Recorded By Document 03/09/18 12:49 [id number] 03/09/18 12:56 03/09/18 12:49 Wound Center Nurse 2 [Procedure/Treatment] #13 R Med Heel -Time 12:55 -Correct Patient Yes -Correct Side, Site, Position Yes -Correct Procedure Yes -Procedure Performed Yes -Type of Procedure Debridement -Clinical Debridement Subcutaneous -Post Debridement Size (cm) - Length 2.1 -Post Debridement Size (cm) - Width 2.3 -Post Debridement Size (cm) - Depth 0.1 -Total Square Cm 4.83 -Wound/Ulcer Outcome Not Healed -Ulcer Cleansing Rinsed/ Irrigated with Saline -Foul Odor after Cleansing No -Bioengineered Tissue No -Topical Lidocaine (%) 4 -Bleeding Controlled with Pressure -Treatment Response Procedure Tolerated Well #21 Right Foot-Toes w/Metatarsal Head circumfrential -Time 12:55 -Correct Patient Yes -Correct Side, Site, Position Yes -Correct Procedure Yes -Procedure Performed Yes -Type of Procedure Debridement -Clinical Debridement Subcutaneous -Post Debridement Size (cm) - Length 0.7 -Post Debridement Size (cm) - Width 0.5 -Post Debridement Size (cm) - Depth 0.2 -Total Square Cm 0.35 -Wound/Ulcer Outcome Not Healed -Ulcer Cleansing Rinsed/ Irrigated with Saline -Foul Odor after Cleansing No -Bioengineered Tissue No -Topical Lidocaine (%) 4 -Bleeding Controlled with Pressure -Treatment Response Procedure Tolerated Well [See Physician Procedure note for Specifics] Pain Scale: 0-10 Numeric [Pain] -Is Patient Pain Free? Yes Musculoskeletal: No Tenderness to Palpation of Joints or Extremities, Muscle Wasting Neurological: - - lack of epicritic sensation via light touch bilateral lower extremities consistent with neuropathy Psych/Mental Status: Normal Affect, Appropriate Debridement Note Post-Debridement Measurements/Treatment WC - Nurse 2 - General Ulcer CM Notes Start: 03/07/18 16:13 Freq: Status: Active Protocol: Activity Type Activity Date Activity User E-Sign Co-Sign Detail Recorded Client Recorded Date Recorded By Document 03/09/18 12:49 [id number] 03/09/18 12:56 03/09/18 12:49 Wound Center Nurse 2 #13 R Med Heel -Time 12:55 -Correct Patient Yes -Correct Side, Site, Position Yes -Correct Procedure Yes -Procedure Performed Yes -Type of Procedure Debridement -Clinical Debridement Subcutaneous -Post Debridement Size (cm) - Length 2.1 -Post Debridement Size (cm) - Width 2.3 -Post Debridement Size (cm) - Depth 0.1 -Total Square Cm 4.83 -Wound/Ulcer Outcome Not Healed -Ulcer Cleansing Rinsed/ Irrigated with Saline -Foul Odor after Cleansing No -Bioengineered Tissue No -Topical Lidocaine (%) 4 -Bleeding Controlled with Pressure -Treatment Response Procedure Tolerated Well #21 Right Foot-Toes w/Metatarsal Head circumfrential -Time 12:55 -Correct Patient Yes -Correct Side, Site, Position Yes -Correct Procedure Yes -Procedure Performed Yes -Type of Procedure Debridement -Clinical Debridement Subcutaneous -Post Debridement Size (cm) - Length 0.7 -Post Debridement Size (cm) - Width 0.5 -Post Debridement Size (cm) - Depth 0.2 -Total Square Cm 0.35 -Wound/Ulcer Outcome Not Healed -Ulcer Cleansing Rinsed/ Irrigated with Saline -Foul Odor after Cleansing No -Bioengineered Tissue No -Topical Lidocaine (%) 4 -Bleeding Controlled with Pressure -Treatment Response Procedure Tolerated Well Pain Scale: 0-10 Numeric Is Patient Pain Free? Yes Wound debrided: heel Laterality: Right Wound Grade/Stage: grade 3 Type of Debridement: Excisional debridement Anesthesia Used: 4% Lidocaine Solution Depth: in the subcutaneous layer Percentage of wound debrided: 100 Instrument Used: #15 blade Tissue Removed: fibrous , devitalized subcutaneous, biofilm, slough Severity: Fat Layer Exposed Amount of bleeding with debridement: Mild Bleeding Controlled with: Pressure Patient tolerated procedure well - Additional Wound Wound debrided: toe Laterality: Right Wound Grade/Stage: grade 1 Type of Debridement: Excisional debridement Anesthesia Used: 4% Lidocaine Solution Depth: in the subcutaneous layer Percentage of wound debrided: 100 Instrument Used: #15 blade Tissue Removed: fibrous, devitalized subcutaneous, biofilm, slough Severity: Fat Layer Exposed Amount of bleeding with debridement: Mild Bleeding Controlled with: Pressure Patient tolerated procedure: Patient tolerated procedure well Assessment/Plan Active Problems Ulcer of right lower extremity with fat layer exposed (Chronic) Ulcer of left lower extremity, limited to breakdown of skin (Chronic) Morbid obesity (Chronic) Venous stasis dermatitis (Chronic) Type 2 diabetes mellitus with diabetic polyneuropathy (Chronic) Delayed wound healing (Chronic) Malnutrition (Chronic) Assessment: ulcer right forefoot (digit 2). right heel ulcer muscle involved and exposed fascia without infection noted today (previous grade 3); s/p surgical debridement and application of advance wound care products (amniofil and epicord). Left below-knee amputation sub-hemorrhagic tissue with continued weeping noted; no infection. Lymphedema. Ulcer left stump site with skin layer exposed, no infection. Chronic lower extremity edema and venous insufficiency. Morbid obesity. Type 2 diabetes uncontrolled with peripheral neuropathy. CKD. Hypertension. Left below-knee amputation. Malnutrition. Delayed wound healing. Nonadherence to treatment plan Plan: I reviewed and discussed his case debridement done as documented above in the clinical panel, procedure was well tolerated. He completed a course of epifix. Additional advanced product application prior authorization is pending; [facility]. This is medically necessary and will facilitate a more timely healing course. To change the dressing daily with Guera to the sites. Continue compression and elevate lower extreity when sitting and in bed. Optimal blood sugar contol. Continue protein suppplements and increased protein in diet. To continue hyperbaric oxygen therapy as scheduled on complaint basis. If his left limb continues to have no weeping next week the plan is to progress him into his shrink wrap with the intention to progress to his leg prosthetic. To improve compliance with compression pumps. I advised him to at least get a second session even if it is reduced in time each day. He reports he is doing this and I recommend he continues. Follow up in 1 week with at the wound healing center or call sooner if he has any questions or concerns.
[2018-03-10 09:47] VITALS: BP 134/75; PULSE 86; RESP 16; TEMP 35.9
[2018-03-10 09:51] LABS: Bedside Glucose 142 mg/dL (70-110)
--- NOTE | 2018-03-10 10:04 | PCM.HBO.PN ---
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 Left toe ulcer DEL BARRIOS is a 57 year old currently undergoing hyperbaric oxygen therapy for left diabetic foot ulcer with necrosis of bone, Brooks Grade 3 - heel; Left toe ulcer Progress: Today represents the 28th such session of hyperbaric oxygen therapy, which the patient appears to be tolerating well. Tolerance of hyperbaric oxygen therapy: Percussion therapy was administered as per the facility's protocol. Patient tolerated hyperbaric oxygen therapy well, without complaints or complications. Upon emergence from the hyperbaric chamber, the patient's signs remained stable. The patient was discharged in good condition. 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) Delayed wound healing (Chronic) Malnutrition (Chronic) Venous insufficiency (Chronic) Lymphedema (Chronic) Edema of both legs (Chronic) GERD (gastroesophageal reflux disease) (Chronic) Hypertension (Chronic) Hyperlipemia (Chronic) Morbid obesity with BMI of 45.0-49.9, adult (Chronic) Hyperlipidemia associated with type 2 diabetes mellitus (Chronic) 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 Allergies/Adverse Reactions: Allergies bee venom protein (honey bee) Allergy (Verified 12/13/17 09:30) Swelling metronidazole [From Flagyl] Allergy (Verified 12/13/17 09:30) Itching Home Medications: Ambulatory Orders Medication Instructions Recorded Atorvastatin Calcium [Lipitor] 10 mg PO QHS 01/08/17 Brimonidine Tartrate 0.2% 1 drop EACH EYE BID 01/08/17 [Brimonidine 0.2% 5Ml Bottle] Ergocalciferol [Vitamin D] 50,000 unit PO FR 01/08/17 Gabapentin [Neurontin] 1,600 mg PO QHS 01/08/17 Gabapentin [Neurontin] 600 mg PO DAILY 01/08/17 Insulin U-500 [Humulin R U-500 105 units SC DINNER 01/08/17 ([facility])] Insulin U-500 [Humulin R U-500 105 units SC LUNCH 01/08/17 ([facility])] Insulin U-500 [Humulin R U-500 160 units SC BREAKFAST 01/08/17 ([facility])] Latanoprost 0.005% [Xalatan 1 drop EACH EYE QHS 01/08/17 Opthalmic] Losartan Potassium [Cozaar] 50 mg PO DAILY 01/08/17 Nebivolol HCl [Bystolic (Beta 10 mg PO DAILY 01/08/17 Akira)] Omeprazole [Prilosec] 40 mg PO DAILY 01/08/17 Acetaminophen [Tylenol Tablet] 650 mg PO Q6H PRN PRN tablet 09/07/17 Clopidogrel Bisulfate [Plavix] 75 mg PO DAILY 09/07/17 Menthol/Lanolin/Calamine/Znox 1 applic TOPICAL 0600,2200 tube 09/21/17 [Calmoseptine Ointment] Nutritional Supplement [Madhu - 1 packet PO BIDCM #60 packet 09/21/17 ORANGE FLAVOR] Nystatin Powder [Mycostatin Powder] 1 applic TOPICAL 0600,2200 bottle 09/21/17 Ferrous Sulfate [Iron] 325 mg PO BID 10/14/17 Clindamycin HCl 300 mg PO [id number] #40 cap 12/13/17 Maternal Family History: Diabetes Paternal Family History: Hypertension Sibling Family History: Diabetes Smoking Status: Former smoker Physical Exam Vital Signs Temp Pulse Resp BP 96.7 F L 86 16 134/75 H 03/10/18 09:47 03/10/18 09:47 03/10/18 09:47 03/10/18 09:47 General: Alert, Oriented x3, Cooperative, No apparent distress HEENT: Atraumatic Lungs: Normal air movement Psych/Mental Status: Normal Affect Assessment/Plan Active Problems Ulcer of right lower extremity with fat layer exposed (Chronic) Ulcer of left lower extremity, limited to breakdown of skin (Chronic) Morbid obesity (Chronic) Venous stasis dermatitis (Chronic) Type 2 diabetes mellitus with diabetic polyneuropathy (Chronic) Delayed wound healing (Chronic) Malnutrition (Chronic) The patient appears to be tolerating hyperbaric oxygen therapy well, which will be continued as per the patient's medical plan.
[2018-03-10 11:51] LABS: Bedside Glucose 128 mg/dL (70-110)
[2018-03-11 09:46] LABS: Bedside Glucose 94 mg/dL (70-110)
[2018-03-11 10:06] LABS: Bedside Glucose 87 mg/dL (70-110)
[2018-03-11 10:22] VITALS: BP 131/74; BP 142/76; PULSE 74; PULSE 80; RESP 16; TEMP 35.9; TEMP 36
--- NOTE | 2018-03-11 12:16 | HBO.PN.PCM_ITS ---
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 Left toe ulcer DEL BARRIOS is a 57 year old currently undergoing hyperbaric oxygen therapy for left diabetic foot ulcer with necrosis of bone, Brooks Grade 3 - heel; Left toe ulcer Progress: Today represents the 29th such session of hyperbaric oxygen therapy, which the patient appears to be tolerating well. Tolerance of hyperbaric oxygen therapy: Percussion therapy was administered as per the facility's protocol. Patient tolerated hyperbaric oxygen therapy well, without complaints or complications. Upon emergence from the hyperbaric chamber, the patient's signs remained stable. The patient was discharged in good condition. 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) Delayed wound healing (Chronic) Malnutrition (Chronic) Venous insufficiency (Chronic) Lymphedema (Chronic) Edema of both legs (Chronic) GERD (gastroesophageal reflux disease) (Chronic) Hypertension (Chronic) Hyperlipemia (Chronic) Morbid obesity with BMI of 45.0-49.9, adult (Chronic) Hyperlipidemia associated with type 2 diabetes mellitus (Chronic) 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 Allergies/Adverse Reactions: Allergies bee venom protein (honey bee) Allergy (Verified 12/13/17 09:30) Swelling metronidazole [From Flagyl] Allergy (Verified 12/13/17 09:30) Itching Home Medications: Ambulatory Orders Medication Instructions Recorded Atorvastatin Calcium [Lipitor] 10 mg PO QHS 01/08/17 Brimonidine Tartrate 0.2% 1 drop EACH EYE BID 01/08/17 [Brimonidine 0.2% 5Ml Bottle] Ergocalciferol [Vitamin D] 50,000 unit PO FR 01/08/17 Gabapentin [Neurontin] 1,600 mg PO QHS 01/08/17 Gabapentin [Neurontin] 600 mg PO DAILY 01/08/17 Insulin U-500 [Humulin R U-500 105 units SC DINNER 01/08/17 ([facility])] Insulin U-500 [Humulin R U-500 105 units SC LUNCH 01/08/17 ([facility])] Insulin U-500 [Humulin R U-500 160 units SC BREAKFAST 01/08/17 ([facility])] Latanoprost 0.005% [Xalatan 1 drop EACH EYE QHS 01/08/17 Opthalmic] Losartan Potassium [Cozaar] 50 mg PO DAILY 01/08/17 Nebivolol HCl [Bystolic (Beta 10 mg PO DAILY 01/08/17 Akira)] Omeprazole [Prilosec] 40 mg PO DAILY 01/08/17 Acetaminophen [Tylenol Tablet] 650 mg PO Q6H PRN PRN tablet 09/07/17 Clopidogrel Bisulfate [Plavix] 75 mg PO DAILY 09/07/17 Menthol/Lanolin/Calamine/Znox 1 applic TOPICAL 0600,2200 tube 09/21/17 [Calmoseptine Ointment] Nutritional Supplement [Madhu - 1 packet PO BIDCM #60 packet 09/21/17 ORANGE FLAVOR] Nystatin Powder [Mycostatin Powder] 1 applic TOPICAL 0600,2200 bottle 09/21/17 Ferrous Sulfate [Iron] 325 mg PO BID 10/14/17 Clindamycin HCl 300 mg PO [id number] #40 cap 12/13/17 Maternal Family History: Diabetes Paternal Family History: Hypertension Sibling Family History: Diabetes Smoking Status: Former smoker Physical Exam Vital Signs Temp Pulse Resp BP 96.7 F L 80 16 142/76 H 03/11/18 10:22 03/11/18 10:22 03/11/18 10:22 03/11/18 10:22 Assessment/Plan Active Problems Ulcer of right lower extremity with fat layer exposed (Chronic) Ulcer of left lower extremity, limited to breakdown of skin (Chronic) Morbid obesity (Chronic) Venous stasis dermatitis (Chronic) Type 2 diabetes mellitus with diabetic polyneuropathy (Chronic) Delayed wound healing (Chronic) Malnutrition (Chronic) The patient appears to be tolerating hyperbaric oxygen therapy well, which will be continued as per the patient's medical plan.
[2018-03-11 12:21] LABS: Bedside Glucose 116 mg/dL (70-110)
[2018-03-11 15:11] LABS: Bedside Glucose 95 mg/dL (70-110)
[2018-03-11 15:11] LABS: Bedside Glucose 108 mg/dL (70-110)
[2018-03-14 09:36] VITALS: BP 138/81; BP 152/83; PULSE 84; PULSE 99; RESP 16; RESP 18; TEMP 36.5; TEMP 36.6
[2018-03-14 09:40] LABS: Bedside Glucose 221 mg/dL (70-110)
[2018-03-14 11:51] LABS: Bedside Glucose 149 mg/dL (70-110)
--- NOTE | 2018-03-14 22:40 | PCM.HBO.PN ---
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 Progress: The patient appears to be tolerating hyperbaric oxygen therapy well. This is his 2nd treatment course and his 30th session of hyperbaric oxygen therapy. Tolerance of hyperbaric oxygen therapy: Hyperbaric oxygen therapy was administered as per the facility's protocol. The patient tolerated hyperbaric oxygen therapy well, without complaints or complications. Upon emergence from the hyperbaric chamber, patient's vital signs remained stable. Patient was discharged in good condition. His blood glucose was 221 before the treatment and 149 after the treatment. 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) Delayed wound healing (Chronic) Malnutrition (Chronic) Venous insufficiency (Chronic) Lymphedema (Chronic) Edema of both legs (Chronic) GERD (gastroesophageal reflux disease) (Chronic) Hypertension (Chronic) Hyperlipemia (Chronic) Morbid obesity with BMI of 45.0-49.9, adult (Chronic) Hyperlipidemia associated with type 2 diabetes mellitus (Chronic) 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 Allergies/Adverse Reactions: Allergies bee venom protein (honey bee) Allergy (Verified 12/13/17 09:30) Swelling metronidazole [From Flagyl] Allergy (Verified 12/13/17 09:30) Itching Home Medications: Ambulatory Orders Medication Instructions Recorded Atorvastatin Calcium [Lipitor] 10 mg PO QHS 01/08/17 Brimonidine Tartrate 0.2% 1 drop EACH EYE BID 01/08/17 [Brimonidine 0.2% 5Ml Bottle] Ergocalciferol [Vitamin D] 50,000 unit PO FR 01/08/17 Gabapentin [Neurontin] 1,600 mg PO QHS 01/08/17 Gabapentin [Neurontin] 600 mg PO DAILY 01/08/17 Insulin U-500 [Humulin R U-500 105 units SC DINNER 01/08/17 ([facility])] Insulin U-500 [Humulin R U-500 105 units SC LUNCH 01/08/17 ([facility])] Insulin U-500 [Humulin R U-500 160 units SC BREAKFAST 01/08/17 ([facility])] Latanoprost 0.005% [Xalatan 1 drop EACH EYE QHS 01/08/17 Opthalmic] Losartan Potassium [Cozaar] 50 mg PO DAILY 01/08/17 Nebivolol HCl [Bystolic (Beta 10 mg PO DAILY 01/08/17 Akira)] Omeprazole [Prilosec] 40 mg PO DAILY 01/08/17 Acetaminophen [Tylenol Tablet] 650 mg PO Q6H PRN PRN tablet 09/07/17 Clopidogrel Bisulfate [Plavix] 75 mg PO DAILY 09/07/17 Menthol/Lanolin/Calamine/Znox 1 applic TOPICAL 0600,2200 tube 09/21/17 [Calmoseptine Ointment] Nutritional Supplement [Madhu - 1 packet PO BIDCM #60 packet 09/21/17 [facility] FLAVOR] Nystatin Powder [Mycostatin Powder] 1 applic TOPICAL 0600,2200 bottle 09/21/17 Ferrous Sulfate [Iron] 325 mg PO BID 10/14/17 Clindamycin HCl 300 mg PO [id number] #40 cap 12/13/17 Maternal Family History: Diabetes Paternal Family History: Hypertension Sibling Family History: Diabetes Smoking Status: Former smoker Physical Exam Vital Signs Temp Pulse Resp BP 97.7 F L 84 18 152/83 H 03/14/18 09:36 03/14/18 09:36 03/14/18 09:36 03/14/18 09:36 Assessment/Plan Active Problems Ulcer of right lower extremity with fat layer exposed (Chronic) Ulcer of left lower extremity, limited to breakdown of skin (Chronic) Morbid obesity (Chronic) Venous stasis dermatitis (Chronic) Type 2 diabetes mellitus with diabetic polyneuropathy (Chronic) Delayed wound healing (Chronic) Malnutrition (Chronic)
[2018-03-15 09:15] VITALS: BP 135/68; BP 155/76; PULSE 75; PULSE 79; RESP 16; RESP 18; TEMP 36.2; TEMP 36.5
[2018-03-15 10:06] LABS: Bedside Glucose 204 mg/dL (70-110)
[2018-03-15 11:21] LABS: Bedside Glucose 125 mg/dL (70-110)
--- NOTE | 2018-03-15 12:01 | HBO.PN.PCM_ITS ---
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 Progress: The patient appears to be tolerating hyperbaric oxygen therapy well. This is his 2nd treatment course and his 31st session of hyperbaric oxygen therapy. Tolerance of hyperbaric oxygen therapy: Hyperbaric oxygen therapy was administered as per the facility's protocol. The patient tolerated hyperbaric oxygen therapy well, without complaints or complications. Upon emergence from the hyperbaric chamber, patient's vital signs remained stable. Patient was discharged in good condition. 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) Delayed wound healing (Chronic) Malnutrition (Chronic) Venous insufficiency (Chronic) Lymphedema (Chronic) Edema of both legs (Chronic) GERD (gastroesophageal reflux disease) (Chronic) Hypertension (Chronic) Hyperlipemia (Chronic) Morbid obesity with BMI of 45.0-49.9, adult (Chronic) Hyperlipidemia associated with type 2 diabetes mellitus (Chronic) 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 Allergies/Adverse Reactions: Allergies bee venom protein (honey bee) Allergy (Verified 12/13/17 09:30) Swelling metronidazole [From Flagyl] Allergy (Verified 12/13/17 09:30) Itching Home Medications: Ambulatory Orders Medication Instructions Recorded Atorvastatin Calcium [Lipitor] 10 mg PO QHS 01/08/17 Brimonidine Tartrate 0.2% 1 drop EACH EYE BID 01/08/17 [Brimonidine 0.2% 5Ml Bottle] Ergocalciferol [Vitamin D] 50,000 unit PO FR 01/08/17 Gabapentin [Neurontin] 1,600 mg PO QHS 01/08/17 Gabapentin [Neurontin] 600 mg PO DAILY 01/08/17 Insulin U-500 [Humulin R U-500 105 units SC DINNER 01/08/17 ([facility])] Insulin U-500 [Humulin R U-500 105 units SC LUNCH 01/08/17 ([facility])] Insulin U-500 [Humulin R U-500 160 units SC BREAKFAST 01/08/17 ([facility])] Latanoprost 0.005% [Xalatan 1 drop EACH EYE QHS 01/08/17 Opthalmic] Losartan Potassium [Cozaar] 50 mg PO DAILY 01/08/17 Nebivolol HCl [Bystolic (Beta 10 mg PO DAILY 01/08/17 Akira)] Omeprazole [Prilosec] 40 mg PO DAILY 01/08/17 Acetaminophen [Tylenol Tablet] 650 mg PO Q6H PRN PRN tablet 09/07/17 Clopidogrel Bisulfate [Plavix] 75 mg PO DAILY 09/07/17 Menthol/Lanolin/Calamine/Znox 1 applic TOPICAL 0600,2200 tube 09/21/17 [Calmoseptine Ointment] Nutritional Supplement [Madhu - 1 packet PO BIDCM #60 packet 09/21/17 [place] [facility]LA[facility]OR] Nystatin Powder [Mycostatin Powder] 1 applic TOPICAL 0600,2200 bottle 09/21/17 Ferrous Sulfate [Iron] 325 mg PO BID 10/14/17 Clindamycin HCl 300 mg PO [id number] #40 cap 12/13/17 Maternal Family History: Diabetes Paternal Family History: Hypertension Sibling Family History: Diabetes Smoking Status: Former smoker Physical Exam Vital Signs Temp Pulse Resp BP 97.7 F L 84 18 152/83 H 03/14/18 09:36 03/14/18 09:36 03/14/18 09:36 03/14/18 09:36 General: Alert, Oriented x3, Cooperative, No apparent distress, Well developed, Well nourished HEENT: Atraumatic, PERRLA, EOMI, Normocephalic Lungs: Normal air movement Psych/Mental Status: Normal Affect, Appropriate, Alert and oriented to time, place, person, mood and affect Assessment/Plan Active Problems Ulcer of right lower extremity with fat layer exposed (Chronic) Ulcer of left lower extremity, limited to breakdown of skin (Chronic) Morbid obesity (Chronic) Venous stasis dermatitis (Chronic) Type 2 diabetes mellitus with diabetic polyneuropathy (Chronic) Delayed wound healing (Chronic) Malnutrition (Chronic) The patient appears to be tolerating hyperbaric oxygen therapy well, which will be continued as per the patient's medical plan.
[2018-03-16 08:14] VITALS: BP 125/61; PULSE 80; RESP 18; TEMP 35.9
[2018-03-16 09:25] LABS: Bedside Glucose 211 mg/dL (70-110)
--- NOTE | 2018-03-16 09:27 | HBO.PN.PCM_ITS ---
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 Progress: The patient appears to be tolerating hyperbaric oxygen therapy well. This is his 2nd treatment course and his 32nd session of hyperbaric oxygen therapy. Tolerance of hyperbaric oxygen therapy: Hyperbaric oxygen therapy was administered as per the facility's protocol. The patient tolerated hyperbaric oxygen therapy well, without complaints or complications. Upon emergence from the hyperbaric chamber, patient's vital signs remained stable. Patient was discharged in good condition. 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) Delayed wound healing (Chronic) Malnutrition (Chronic) Venous insufficiency (Chronic) Lymphedema (Chronic) Edema of both legs (Chronic) GERD (gastroesophageal reflux disease) (Chronic) Hypertension (Chronic) Hyperlipemia (Chronic) Morbid obesity with BMI of 45.0-49.9, adult (Chronic) Hyperlipidemia associated with type 2 diabetes mellitus (Chronic) 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 Allergies/Adverse Reactions: Allergies bee venom protein (honey bee) Allergy (Verified 12/13/17 09:30) Swelling metronidazole [From Flagyl] Allergy (Verified 12/13/17 09:30) Itching Home Medications: Ambulatory Orders Medication Instructions Recorded Atorvastatin Calcium [Lipitor] 10 mg PO QHS 01/08/17 Brimonidine Tartrate 0.2% 1 drop EACH EYE BID 01/08/17 [Brimonidine 0.2% 5Ml Bottle] Ergocalciferol [Vitamin D] 50,000 unit PO FR 01/08/17 Gabapentin [Neurontin] 1,600 mg PO QHS 01/08/17 Gabapentin [Neurontin] 600 mg PO DAILY 01/08/17 Insulin U-500 [Humulin R U-500 105 units SC DINNER 01/08/17 ([facility])] Insulin U-500 [Humulin R U-500 105 units SC LUNCH 01/08/17 ([facility])] Insulin U-500 [Humulin R U-500 160 units SC BREAKFAST 01/08/17 ([facility])] Latanoprost 0.005% [Xalatan 1 drop EACH EYE QHS 01/08/17 Opthalmic] Losartan Potassium [Cozaar] 50 mg PO DAILY 01/08/17 Nebivolol HCl [Bystolic (Beta 10 mg PO DAILY 01/08/17 Akira)] Omeprazole [Prilosec] 40 mg PO DAILY 01/08/17 Acetaminophen [Tylenol Tablet] 650 mg PO Q6H PRN PRN tablet 09/07/17 Clopidogrel Bisulfate [Plavix] 75 mg PO DAILY 09/07/17 Menthol/Lanolin/Calamine/Znox 1 applic TOPICAL 0600,2200 tube 09/21/17 [Calmoseptine Ointment] Nutritional Supplement [Madhu - 1 packet PO BIDCM #60 packet 09/21/17 [place] [facility]LAVOR] Nystatin Powder [Mycostatin Powder] 1 applic TOPICAL 0600,2200 bottle 09/21/17 Ferrous Sulfate [Iron] 325 mg PO BID 10/14/17 Clindamycin HCl 300 mg PO [id number] #40 cap 12/13/17 Maternal Family History: Diabetes Paternal Family History: Hypertension Sibling Family History: Diabetes Smoking Status: Former smoker Physical Exam Vital Signs Temp Pulse Resp BP 96.7 F L 80 18 125/61 H 03/16/18 08:14 03/16/18 08:14 03/16/18 08:14 03/16/18 08:14 General: Alert, Oriented x3, Cooperative, No apparent distress HEENT: Atraumatic, Normocephalic Lungs: Normal air movement Psych/Mental Status: Normal Affect Assessment/Plan Active Problems Ulcer of right lower extremity with fat layer exposed (Chronic) Ulcer of left lower extremity, limited to breakdown of skin (Chronic) Morbid obesity (Chronic) Venous stasis dermatitis (Chronic) Type 2 diabetes mellitus with diabetic polyneuropathy (Chronic) Delayed wound healing (Chronic) Malnutrition (Chronic) The patient appears to be tolerating hyperbaric oxygen therapy well, which will be continued as per the patient's medical plan.
[2018-03-16 10:03] VITALS: BP 144/66; PULSE 79; RESP 18; TEMP 36.2
--- NOTE | 2018-03-16 10:06 | PCM.WC.PN ---
(1) Ulcer of right lower extremity with fat layer exposed Status: Chronic Current Visit: Yes Code(s): L97.912 - Non-pressure chronic ulcer of unspecified part of right lower leg with fat layer exposed (2) Ulcer of left lower extremity, limited to breakdown of skin Status: Chronic Current Visit: Yes Code(s): L97.921 - Non-pressure chronic ulcer of unspecified part of left lower leg limited to breakdown of skin (3) Morbid obesity Status: Chronic Current Visit: Yes Code(s): E66.01 - Morbid (severe) obesity due to excess calories (4) Venous stasis dermatitis Status: Chronic Current Visit: Yes Code(s): I87.2 - Venous insufficiency (chronic) (peripheral) (5) Type 2 diabetes mellitus with diabetic polyneuropathy Status: Chronic Current Visit: Yes Code(s): E11.42 - Type 2 diabetes mellitus with diabetic polyneuropathy (6) Delayed wound healing Status: Chronic Current Visit: Yes Code(s): T14.8 - Other injury of unspecified body region (7) Malnutrition Status: Chronic Current Visit: Yes Code(s): E46 - Unspecified protein-calorie malnutrition Type of Wound Date of Service: 03/16/18 Chief Complaint: 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 History of Wound: 57-year-old white male returns to clinic for follow-up of bilateral leg ulcers and right foot ulcers. He denies fever, chill, nausea, vomiting, loss of appetite. He had multiple advanced wound care product applications. His swelling is slightly increaed today and he denies increased activity. Presents in a wheelchair today. He is amendable to undergo hyperbaric oxygen therapy and been attending the sessions as advised; he has been tolerating the sessions. He denies odors or redness. He has demonstrated significant delays in healing. He relates his left stump site is barely leaking fluid. Progress of Wound: Improving - Physical Exam Vital Signs Temp Pulse Resp BP 96.7 F L 80 18 125/61 H 03/16/18 08:14 03/16/18 08:14 03/16/18 08:14 03/16/18 08:14 General: Alert, Oriented x3, Cooperative Extremities: No cyanosis, Capillary Refill Less than 3 Seconds, No Calf Tenderness - negative suzanne and bean right, Diminished Peripheral Pulses, Edema - moderate right Skin: Ulcer/ Wound - no purulence, no erythema, no infection, no streaking. atrophic skin noted peripheral. there is some subhemmorhagic tissue with minor serous weeping to left below knee amputation stump site Wound Measurements and Assessment WC - Nurse 1 - General Ulcer Measurement Start: 03/07/18 16:13 Freq: Status: Active Protocol: Activity Type Activity Date Activity User E-Sign Co-Sign Detail Recorded Client Recorded Date Recorded By Document 03/16/18 08:14 TN [id number] 03/16/18 08:21 TN 03/16/18 08:14 Wound Center Nurse 1 [Ulcer Assessment] #13 R Med Heel -Combined with other wound No -Current Size (cm) - Length 2 -Current Size (cm) - Width 2.2 -Current Size (cm) - Depth 0.1 -Total Square Cm 4.4 -Date of Last Picture (Recall this 03/16/18 field) -Photo Taken Yes -Epithelialization Medium 34-66% -Tunneling No -Undermining/Tunneling No -Circular Undermining No -Classification - Thickness Full Thickness without Exposed Support Structure -Change in Wound Grade/Stage No Query Text:If change please identify the Stage/Grade in the comment (ie. S2 G3) -Exudate Amt Small (1-33%) -Exudate Type Serous -Wound Margin Thickened -Granulation Quality Pale -Slough/Fibrin Yes -Necrosis Amt Medium (34-66%) -Necrotic Tissue Type Adherent Slough -Structure Exposed None/Limited to Skin Breakdown -Texture (Martha-wound Skin Appearance) Assessed Localized Edema Scarring -Moisture (Martha-wound Skin Appearance No Abnormality ) Assessed -Color (Martha-wound Skin Appearance) Assessed Erythema -Temperature (Martha-wound Skin No Abnormality Appearance) (Pt Warm) -Tenderness on Palpation (Martha-wound No Skin Appearance) -Ulcer Cleansing Wound Cleanser -Foul Odor after Cleansing No -Anesthetic Used 4% Lidocaine Solution #21 Right Foot-Toes w/Metatarsal Head circumfrential -Combined with other wound No -Current Size (cm) - Length 5 -Current Size (cm) - Width 2.2 -Current Size (cm) - Depth 0.2 -Total Square Cm 11.0 -Date of Last Picture (Recall this 03/16/18 field) -Photo Taken Yes -Epithelialization Medium 34-66% -Tunneling No -Undermining/Tunneling No -Circular Undermining No -Classification - Thickness Full Thickness without Exposed Support Structure -Change in Wound Grade/Stage No Query Text:If change please identify the Stage/Grade in the comment (ie. S2 G3) -Exudate Amt Small (1-33%) -Exudate Type Serous -Wound Margin Indistinct, Non -Visible -Granulation Amt Small (1-33%) -Granulation Quality [place] -Slough/Fibrin Yes -Necrotic Tissue Type Adherent Slough -Structure Exposed None/Limited to Skin Breakdown -Texture (Martha-wound Skin Appearance) Assessed Localized Edema -Moisture (Martha-wound Skin Appearance No Abnormality ) Assessed -Color (Martha-wound Skin Appearance) Assessed Erythema -Temperature (Martha-wound Skin No Abnormality Appearance) (Pt Warm) -Tenderness on Palpation (Martha-wound No Skin Appearance) -Ulcer Cleansing Wound Cleanser -Foul Odor after Cleansing No -Anesthetic Used 4% Lidocaine Solution [Edema Assessment] -Lower Limb Edema Present Yes -Right Calf (cm) 38.5 -Right Ankle (cm) 32.5 -Left Calf (cm) 38.5 WC - Nurse 2 - General Ulcer CM Notes Start: 03/07/18 16:13 Freq: Status: Active Protocol: Activity Type Activity Date Activity User E-Sign Co-Sign Detail Recorded Client Recorded Date Recorded By Document 03/16/18 08:38 [id number] 03/16/18 08:42 03/16/18 08:38 Wound Center Nurse 2 [Procedure/Treatment] #13 R Med Heel -Time 08:38 -Correct Patient Yes -Correct Side, Site, Position Yes -Correct Procedure Yes -Procedure Performed Yes -Type of Procedure Debridement -Clinical Debridement Subcutaneous -Post Debridement Size (cm) - Length 2.4 -Post Debridement Size (cm) - Width 2.3 -Post Debridement Size (cm) - Depth 0.1 -Total Square Cm 5.52 -Wound/Ulcer Outcome Not Healed -Ulcer Cleansing Rinsed/ Irrigated with Saline -Foul Odor after Cleansing No -Bioengineered Tissue Yes -Type of bioengineered Tissue NU-SHIELD -Expiration Date 02/15/23 -Product Lot Number [id number] -Percent Used 50 -Saline Lot Number [id number] -Topical Lidocaine (%) 4 -Bleeding Controlled with Pressure -Treatment Response Procedure Tolerated Well #21 Right Foot-Toes w/Metatarsal Head circumfrential -Time 08:39 -Correct Patient Yes -Correct Side, Site, Position Yes -Correct Procedure Yes -Procedure Performed Yes -Type of Procedure Debridement -Clinical Debridement Subcutaneous -Post Debridement Size (cm) - Length 5.1 -Post Debridement Size (cm) - Width 2.3 -Post Debridement Size (cm) - Depth 0.2 -Total Square Cm 11.73 -Wound/Ulcer Outcome Not Healed -Ulcer Cleansing Rinsed/ Irrigated with Saline -Foul Odor after Cleansing No -Bioengineered Tissue Yes -Type of bioengineered Tissue NU-SHIELD -Expiration Date 02/15/23 -Product Lot Number [id number] -Percent Used 50 -Saline Lot Number [id number] -Topical Lidocaine (%) 4 -Bleeding Controlled with Pressure -Treatment Response Procedure Tolerated Well [See Physician Procedure note for Specifics] Pain Scale: 0-10 Numeric [Pain] -Is Patient Pain Free? Yes Musculoskeletal: No Tenderness to Palpation of Joints or Extremities, Muscle Wasting, - - left below knee amputation Neurological: - - lack of epicritic sensation via light touch noted Psych/Mental Status: Normal Affect, Appropriate Debridement Note Post-Debridement Measurements/Treatment WC - Nurse 2 - General Ulcer CM Notes Start: 03/07/18 16:13 Freq: Status: Active Protocol: Activity Type Activity Date Activity User E-Sign Co-Sign Detail Recorded Client Recorded Date Recorded By Document 03/09/18 12:49 [id number] 03/09/18 12:56 TM Document 03/16/18 08:38 [id number] 03/16/18 08:42 TM 03/09/18 03/16/18 12:49 08:38 Wound Center Nurse 2 #13 R Med Heel -Time 12:55 08:38 -Correct Patient Yes Yes -Correct Side, Site, Position Yes Yes -Correct Procedure Yes Yes -Procedure Performed Yes Yes -Type of Procedure Debridement Debridement -Clinical Debridement Subcutaneous Subcutaneous -Post Debridement Size (cm) - Length 2.1 2.4 -Post Debridement Size (cm) - Width 2.3 2.3 -Post Debridement Size (cm) - Depth 0.1 0.1 -Total Square Cm 4.83 5.52 -Wound/Ulcer Outcome Not Healed Not Healed -Ulcer Cleansing Rinsed/ Rinsed/ Irrigated with Irrigated with Saline Saline -Foul Odor after Cleansing No No -Bioengineered Tissue No Yes -Type of bioengineered Tissue ViveveSHIELD -Expiration Date 02/15/23 -Product Lot Number [id number] -Percent Used 50 -Saline Lot Number [id number] -Topical Lidocaine (%) 4 4 -Bleeding Controlled with Pressure Pressure -Treatment Response Procedure Procedure Tolerated Well Tolerated Well #21 Right Foot-Toes w/Metatarsal Head circumfrential -Time 12:55 08:39 -Correct Patient Yes Yes -Correct Side, Site, Position Yes Yes -Correct Procedure Yes Yes -Procedure Performed Yes Yes -Type of Procedure Debridement Debridement -Clinical Debridement Subcutaneous Subcutaneous -Post Debridement Size (cm) - Length 0.7 5.1 -Post Debridement Size (cm) - Width 0.5 2.3 -Post Debridement Size (cm) - Depth 0.2 0.2 -Total Square Cm 0.35 11.73 -Wound/Ulcer Outcome Not Healed Not Healed -Ulcer Cleansing Rinsed/ Rinsed/ Irrigated with Irrigated with Saline Saline -Foul Odor after Cleansing No No -Bioengineered Tissue No Yes -Type of bioengineered Tissue orderTopia -Expiration Date 02/15/23 -Product Lot Number [id number] -Percent Used 50 -Saline Lot Number [id number] -Topical Lidocaine (%) 4 4 -Bleeding Controlled with Pressure Pressure -Treatment Response Procedure Procedure Tolerated Well Tolerated Well Pain Scale: 0-10 Numeric Is Patient Pain Free? Yes Yes Wound debrided: heel Laterality: Right Wound Grade/Stage: grade 3 Type of Debridement: Excisional debridement Anesthesia Used: 4% Lidocaine Solution Depth: in the subcutaneous layer Percentage of wound debrided: 100 Instrument Used: #15 blade Tissue Removed: fibrous, devitalized subcutaneous, biofilm, slough Severity: Fat Layer Exposed Amount of bleeding with debridement: Mild Bleeding Controlled with: Pressure Patient tolerated procedure well - Additional Wound Wound debrided: toe Laterality: Right Wound Grade/Stage: grade 1 Type of Debridement: Excisional debridement Anesthesia Used: 4% Lidocaine Solution Depth: in the subcutaneous layer Percentage of wound debrided: 100 Instrument Used: #15 blade Tissue Removed: fibrous, devitalized subcutaneous, biofilm, slough Severity: Fat Layer Exposed Amount of bleeding with debridement: Mild Bleeding Controlled with: Pressure Patient tolerated procedure: Patient tolerated procedure well Assessment/Plan Active Problems Ulcer of right lower extremity with fat layer exposed (Chronic) Ulcer of left lower extremity, limited to breakdown of skin (Chronic) Morbid obesity (Chronic) Venous stasis dermatitis (Chronic) Type 2 diabetes mellitus with diabetic polyneuropathy (Chronic) Delayed wound healing (Chronic) Malnutrition (Chronic) Assessment: ulcer right forefoot (digit 2). right heel ulcer muscle involved and exposed fascia without infection noted today (previous grade 3); s/p surgical debridement and application of advance wound care products (amniofil and epicord). Left below-knee amputation sub-hemorrhagic tissue with continued weeping noted; no infection. Lymphedema. Ulcer left stump site with skin layer exposed, no infection. Chronic lower extremity edema and venous insufficiency. Morbid obesity. Type 2 diabetes uncontrolled with peripheral neuropathy. CKD. Hypertension. Left below-knee amputation. Malnutrition. Delayed wound healing. Nonadherence to treatment plan Plan: I reviewed and discussed his case debridement done as documented above in the clinical panel, procedure was well tolerated. Additional advanced product application prior authorization is pending; [facility]. This is medically necessary and will facilitate a more timely healing course. Verbal consent was obtained and this was applied according to [facility] protocol. This was secured with steri strips and a wound veil. To keep this intact until follow up next week. Continue compression and elevate lower extreity when sitting and in bed. Optimal blood sugar contol. Continue protein suppplements and increased protein in diet. To continue hyperbaric oxygen therapy as scheduled on complaint basis. If his left limb continues to have no weeping next week the plan is to progress him into his shrink wrap with the intention to progress to his leg prosthetic. To improve compliance with compression pumps. I advised him to at least get a second session even if it is reduced in time each day. He reports he is doing this and I recommend he continues. Follow up in 1 week with at the wound healing center or call sooner if he has any questions or concerns.
--- NOTE | 2018-03-16 10:13 | PN.PCM_ITS ---
(1) Ulcer of right lower extremity with fat layer exposed Status: Chronic Current Visit: Yes Code(s): L97.912 - Non-pressure chronic ulcer of unspecified part of right lower leg with fat layer exposed (2) Ulcer of left lower extremity, limited to breakdown of skin Status: Chronic Current Visit: Yes Code(s): L97.921 - Non-pressure chronic ulcer of unspecified part of left lower leg limited to breakdown of skin (3) Morbid obesity Status: Chronic Current Visit: Yes Code(s): E66.01 - Morbid (severe) obesity due to excess calories (4) Venous stasis dermatitis Status: Chronic Current Visit: Yes Code(s): I87.2 - Venous insufficiency (chronic) (peripheral) (5) Type 2 diabetes mellitus with diabetic polyneuropathy Status: Chronic Current Visit: Yes Code(s): E11.42 - Type 2 diabetes mellitus with diabetic polyneuropathy (6) Delayed wound healing Status: Chronic Current Visit: Yes Code(s): T14.8 - Other injury of unspecified body region (7) Malnutrition Status: Chronic Current Visit: Yes Code(s): E46 - Unspecified protein- calorie malnutrition Type of Wound Date of Service: 03/16/18 Chief Complaint: 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 History of Wound: 57-year-old white male returns to clinic for follow-up of bilateral leg ulcers and right foot ulcers. He denies fever, chill, nausea, vomiting, loss of appetite. He had multiple advanced wound care product applications. His swelling is slightly increaed today and he denies increased activity. Presents in a wheelchair today. He is amendable to undergo hyperbaric oxygen therapy and been attending the sessions as advised; he has been tolerating the sessions. He denies odors or redness. He has demonstrated significant delays in healing. He relates his left stump site is barely leaking fluid. Progress of Wound: Improving - Physical Exam Vital Signs Temp Pulse Resp BP 96.7 F L 80 18 125/61 H 03/16/18 08:14 03/16/18 08:14 03/16/18 08:14 03/16/18 08:14 General: Alert, Oriented x3, Cooperative Extremities: No cyanosis, Capillary Refill Less than 3 Seconds, No Calf Tenderness - negative suzanne and bean right, Diminished Peripheral Pulses, Edema - moderate right Skin: Ulcer/ Wound - no purulence, no erythema, no infection, no streaking. atrophic skin noted peripheral. there is some subhemmorhagic tissue with minor serous weeping to left below knee amputation stump site Wound Measurements and Assessment WC - Nurse 1 - General Ulcer Measurement Start: 03/07/18 16:13 Freq: Status: Active Protocol: Activity Type Activity Date Activity User E-Sign Co-Sign Detail Recorded Client Recorded Date Recorded By Document 03/16/18 08:14 TN [id number] 03/16/18 08:21 TN 03/16/18 08:14 Wound Center Nurse 1 [Ulcer Assessment] #13 R Med Heel -Combined with other wound No -Current Size (cm) - Length 2 -Current Size (cm) - Width 2.2 -Current Size (cm) - Depth 0.1 -Total Square Cm 4.4 -Date of Last Picture (Recall this 03/16/18 field) -Photo Taken Yes -Epithelialization Medium 34-66% -Tunneling No -Undermining/Tunneling No -Circular Undermining No -Classification - Thickness Full Thickness without Exposed Support Structure -Change in Wound Grade/Stage No Query Text:If change please identify the Stage/Grade in the comment (ie. S2 G3) -Exudate Amt Small (1-33%) -Exudate Type Serous -Wound Margin Thickened -Granulation Quality Pale -Slough/Fibrin Yes -Necrosis Amt Medium (34-66%) -Necrotic Tissue Type Adherent Slough -Structure Exposed None/Limited to Skin Breakdown -Texture (Martha-wound Skin Appearance) Assessed Localized Edema Scarring -Moisture (Martha-wound Skin Appearance No Abnormality ) Assessed -Color (Martha-wound Skin Appearance) Assessed Erythema -Temperature (Martha-wound Skin No Abnormality Appearance) (Pt Warm) -Tenderness on Palpation (Martha-wound No Skin Appearance) -Ulcer Cleansing Wound Cleanser -Foul Odor after Cleansing No -Anesthetic Used 4% Lidocaine Solution #21 Right Foot-Toes w/Metatarsal Head circumfrential -Combined with other wound No -Current Size (cm) - Length 5 -Current Size (cm) - Width 2.2 -Current Size (cm) - Depth 0.2 -Total Square Cm 11.0 -Date of Last Picture (Recall this 03/16/18 field) -Photo Taken Yes -Epithelialization Medium 34-66% -Tunneling No -Undermining/Tunneling No -Circular Undermining No -Classification - Thickness Full Thickness without Exposed Support Structure -Change in Wound Grade/Stage No Query Text:If change please identify the Stage/Grade in the comment (ie. S2 G3) -Exudate Amt Small (1-33%) -Exudate Type Serous -Wound Margin Indistinct, Non -Visible -Granulation Amt Small (1-33%) -Granulation Quality [place] -Slough/Fibrin Yes -Necrotic Tissue Type Adherent Slough -Structure Exposed None/Limited to Skin Breakdown -Texture (Martha-wound Skin Appearance) Assessed Localized Edema -Moisture (Martha-wound Skin Appearance No Abnormality ) Assessed -Color (Martha-wound Skin Appearance) Assessed Erythema -Temperature (Martha-wound Skin No Abnormality Appearance) (Pt Warm) -Tenderness on Palpation (Martha-wound No Skin Appearance) -Ulcer Cleansing Wound Cleanser -Foul Odor after Cleansing No -Anesthetic Used 4% Lidocaine Solution [Edema Assessment] -Lower Limb Edema Present Yes -Right Calf (cm) 38.5 -Right Ankle (cm) 32.5 -Left Calf (cm) 38.5 WC - Nurse 2 - General Ulcer CM Notes Start: 03/07/18 16:13 Freq: Status: Active Protocol: Activity Type Activity Date Activity User E-Sign Co-Sign Detail Recorded Client Recorded Date Recorded By Document 03/16/18 08:38 [id number] 03/16/18 08:42 03/16/18 08:38 Wound Center Nurse 2 [Procedure/Treatment] #13 R Med Heel -Time 08:38 -Correct Patient Yes -Correct Side, Site, Position Yes -Correct Procedure Yes -Procedure Performed Yes -Type of Procedure Debridement -Clinical Debridement Subcutaneous -Post Debridement Size (cm) - Length 2.4 -Post Debridement Size (cm) - Width 2.3 -Post Debridement Size (cm) - Depth 0.1 -Total Square Cm 5.52 -Wound/Ulcer Outcome Not Healed -Ulcer Cleansing Rinsed/ Irrigated with Saline -Foul Odor after Cleansing No -Bioengineered Tissue Yes -Type of bioengineered Tissue NU-SHIELD -Expiration Date 02/15/23 -Product Lot Number [id number] -Percent Used 50 -Saline Lot Number [id number] -Topical Lidocaine (%) 4 -Bleeding Controlled with Pressure -Treatment Response Procedure Tolerated Well #21 Right Foot-Toes w/Metatarsal Head circumfrential -Time 08:39 -Correct Patient Yes -Correct Side, Site, Position Yes -Correct Procedure Yes -Procedure Performed Yes -Type of Procedure Debridement -Clinical Debridement Subcutaneous -Post Debridement Size (cm) - Length 5.1 -Post Debridement Size (cm) - Width 2.3 -Post Debridement Size (cm) - Depth 0.2 -Total Square Cm 11.73 -Wound/Ulcer Outcome Not Healed -Ulcer Cleansing Rinsed/ Irrigated with Saline -Foul Odor after Cleansing No -Bioengineered Tissue Yes -Type of bioengineered Tissue NU-SHIELD -Expiration Date 02/15/23 -Product Lot Number [id number] -Percent Used 50 -Saline Lot Number [id number] -Topical Lidocaine (%) 4 -Bleeding Controlled with Pressure -Treatment Response Procedure Tolerated Well [See Physician Procedure note for Specifics] Pain Scale: 0-10 Numeric [Pain] -Is Patient Pain Free? Yes Musculoskeletal: No Tenderness to Palpation of Joints or Extremities, Muscle Wasting, - - left below knee amputation Neurological: - - lack of epicritic sensation via light touch noted Psych/Mental Status: Normal Affect, Appropriate Debridement Note Post-Debridement Measurements/Treatment WC - Nurse 2 - General Ulcer CM Notes Start: 03/07/18 16:13 Freq: Status: Active Protocol: Activity Type Activity Date Activity User E-Sign Co-Sign Detail Recorded Client Recorded Date Recorded By Document 03/09/18 12:49 [id number] 03/09/18 12:56 TM Document 03/16/18 08:38 [id number] 03/16/18 08:42 TM 03/09/18 03/16/18 12:49 08:38 Wound Center Nurse 2 #13 R Med Heel -Time 12:55 08:38 -Correct Patient Yes Yes -Correct Side, Site, Position Yes Yes -Correct Procedure Yes Yes -Procedure Performed Yes Yes -Type of Procedure Debridement Debridement -Clinical Debridement Subcutaneous Subcutaneous -Post Debridement Size (cm) - Length 2.1 2.4 -Post Debridement Size (cm) - Width 2.3 2.3 -Post Debridement Size (cm) - Depth 0.1 0.1 -Total Square Cm 4.83 5.52 -Wound/Ulcer Outcome Not Healed Not Healed -Ulcer Cleansing Rinsed/ Rinsed/ Irrigated with Irrigated with Saline Saline -Foul Odor after Cleansing No No -Bioengineered Tissue No Yes -Type of bioengineered Tissue GistSHIELD -Expiration Date 02/15/23 -Product Lot Number [id number] -Percent Used 50 -Saline Lot Number [id number] -Topical Lidocaine (%) 4 4 -Bleeding Controlled with Pressure Pressure -Treatment Response Procedure Procedure Tolerated Well Tolerated Well #21 Right Foot-Toes w/Metatarsal Head circumfrential -Time 12:55 08:39 -Correct Patient Yes Yes -Correct Side, Site, Position Yes Yes -Correct Procedure Yes Yes -Procedure Performed Yes Yes -Type of Procedure Debridement Debridement -Clinical Debridement Subcutaneous Subcutaneous -Post Debridement Size (cm) - Length 0.7 5.1 -Post Debridement Size (cm) - Width 0.5 2.3 -Post Debridement Size (cm) - Depth 0.2 0.2 -Total Square Cm 0.35 11.73 -Wound/Ulcer Outcome Not Healed Not Healed -Ulcer Cleansing Rinsed/ Rinsed/ Irrigated with Irrigated with Saline Saline -Foul Odor after Cleansing No No -Bioengineered Tissue No Yes -Type of bioengineered Tissue [employer] -Expiration Date 02/15/23 -Product Lot Number [id number] -Percent Used 50 -Saline Lot Number [id number] -Topical Lidocaine (%) 4 4 -Bleeding Controlled with Pressure Pressure -Treatment Response Procedure Procedure Tolerated Well Tolerated Well Pain Scale: 0-10 Numeric Is Patient Pain Free? Yes Yes Wound debrided: heel Laterality: Right Wound Grade/Stage: grade 3 Type of Debridement: Excisional debridement Anesthesia Used: 4% Lidocaine Solution Depth: in the subcutaneous layer Percentage of wound debrided: 100 Instrument Used: #15 blade Tissue Removed: fibrous, devitalized subcutaneous, biofilm, slough Severity: Fat Layer Exposed Amount of bleeding with debridement: Mild Bleeding Controlled with: Pressure Patient tolerated procedure well - Additional Wound Wound debrided: toe Laterality: Right Wound Grade/Stage: grade 1 Type of Debridement: Excisional debridement Anesthesia Used: 4% Lidocaine Solution Depth: in the subcutaneous layer Percentage of wound debrided: 100 Instrument Used: #15 blade Tissue Removed: fibrous, devitalized subcutaneous, biofilm, slough Severity: Fat Layer Exposed Amount of bleeding with debridement: Mild Bleeding Controlled with: Pressure Patient tolerated procedure: Patient tolerated procedure well Assessment/Plan Active Problems Ulcer of right lower extremity with fat layer exposed (Chronic) Ulcer of left lower extremity, limited to breakdown of skin (Chronic) Morbid obesity (Chronic) Venous stasis dermatitis (Chronic) Type 2 diabetes mellitus with diabetic polyneuropathy (Chronic) Delayed wound healing (Chronic) Malnutrition (Chronic) Assessment: ulcer right forefoot (digit 2). right heel ulcer muscle involved and exposed fascia without infection noted today (previous grade 3); s/p surgical debridement and application of advance wound care products (amniofil and epicord). Left below-knee amputation sub-hemorrhagic tissue with continued weeping noted; no infection. Lymphedema. Ulcer left stump site with skin layer exposed, no infection. Chronic lower extremity edema and venous insufficiency. Morbid obesity. Type 2 diabetes uncontrolled with peripheral neuropathy. CKD. Hypertension. Left below-knee amputation. Malnutrition. Delayed wound healing. Nonadherence to treatment plan Plan: I reviewed and discussed his case debridement done as documented above in the clinical panel, procedure was well tolerated. Additional advanced product application [facility] This is medically nece ssa and will facilitate a more timely healing course. Verbal consent was obtained and this was applied [facility]. This was secured with steri strips and a wound veil. To keep this intact until follow up next week. Continue compression and elevate lower extreity when sitting and in bed. Optimal blood sugar contol. Continue protein suppplements and increased protein in diet. To continue hyperbaric oxygen therapy as scheduled on complaint basis. If his left limb continues to have no weeping next week the plan is to progress him into his shrink wrap with the intention to progress to his leg prosthetic. To improve compliance with compression pumps. I advised him to at least get a second session even if it is reduced in time each day. He reports he is doing this and I recommend he continues. Follow up in 1 week with at the wound healing center or call sooner if he has any questions or concerns.
[2018-03-16 11:51] LABS: Bedside Glucose 133 mg/dL (70-110)
[2018-03-17 10:06] VITALS: BP 123/64; PULSE 84; RESP 18; TEMP 36
[2018-03-17 10:06] LABS: Bedside Glucose 190 mg/dL (70-110)
--- NOTE | 2018-03-17 11:43 | HBO.PN.PCM_ITS ---
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 Progress: The patient appears to be tolerating hyperbaric oxygen therapy well. This is his 2nd treatment course and his 33rd session of hyperbaric oxygen therapy. Tolerance of hyperbaric oxygen therapy: Hyperbaric oxygen therapy was administered as per the facility's protocol. The patient tolerated hyperbaric oxygen therapy well, without complaints or complications. Upon emergence from the hyperbaric chamber, patient's vital signs remained stable. Patient was discharged in good condition. 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) Delayed wound healing (Chronic) Malnutrition (Chronic) Venous insufficiency (Chronic) Lymphedema (Chronic) Edema of both legs (Chronic) GERD (gastroesophageal reflux disease) (Chronic) Hypertension (Chronic) Hyperlipemia (Chronic) Morbid obesity with BMI of 45.0-49.9, adult (Chronic) Hyperlipidemia associated with type 2 diabetes mellitus (Chronic) 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 Allergies/Adverse Reactions: Allergies bee venom protein (honey bee) Allergy (Verified 12/13/17 09:30) Swelling metronidazole [From Flagyl] Allergy (Verified 12/13/17 09:30) Itching Home Medications: Ambulatory Orders Medication Instructions Recorded Atorvastatin Calcium [Lipitor] 10 mg PO QHS 01/08/17 Brimonidine Tartrate 0.2% 1 drop EACH EYE BID 01/08/17 [Brimonidine 0.2% 5Ml Bottle] Ergocalciferol [Vitamin D] 50,000 unit PO FR 01/08/17 Gabapentin [Neurontin] 1,600 mg PO QHS 01/08/17 Gabapentin [Neurontin] 600 mg PO DAILY 01/08/17 Insulin U-500 [Humulin R U-500 105 units SC DINNER 01/08/17 ([facility])] Insulin U-500 [Humulin R U-500 105 units SC LUNCH 01/08/17 ([facility])] Insulin U-500 [Humulin R U-500 160 units SC BREAKFAST 01/08/17 ([facility])] Latanoprost 0.005% [Xalatan 1 drop EACH EYE QHS 01/08/17 Opthalmic] Losartan Potassium [Cozaar] 50 mg PO DAILY 01/08/17 Nebivolol HCl [Bystolic (Beta 10 mg PO DAILY 01/08/17 Akira)] Omeprazole [Prilosec] 40 mg PO DAILY 01/08/17 Acetaminophen [Tylenol Tablet] 650 mg PO Q6H PRN PRN tablet 09/07/17 Clopidogrel Bisulfate [Plavix] 75 mg PO DAILY 09/07/17 Menthol/Lanolin/Calamine/Znox 1 applic TOPICAL 0600,2200 tube 09/21/17 [Calmoseptine Ointment] Nutritional Supplement [Madhu - 1 packet PO BIDCM #60 packet 09/21/17 [employer]LA[employer]] Nystatin Powder [Mycostatin Powder] 1 applic TOPICAL 0600,2200 bottle 09/21/17 Ferrous Sulfate [Iron] 325 mg PO BID 10/14/17 Clindamycin HCl 300 mg PO [id number] #40 cap 12/13/17 Maternal Family History: Diabetes Paternal Family History: Hypertension Sibling Family History: Diabetes Smoking Status: Former smoker Physical Exam Vital Signs Temp Pulse Resp BP 96.8 F L 84 18 123/64 H 03/17/18 10:06 03/17/18 10:06 03/17/18 10:06 03/17/18 10:06 General: Alert, Oriented x3, Cooperative, No apparent distress HEENT: Atraumatic Lungs: Normal air movement Psych/Mental Status: Normal Affect Assessment/Plan Active Problems Ulcer of right lower extremity with fat layer exposed (Chronic) Ulcer of left lower extremity, limited to breakdown of skin (Chronic) Morbid obesity (Chronic) Venous stasis dermatitis (Chronic) Type 2 diabetes mellitus with diabetic polyneuropathy (Chronic) Delayed wound healing (Chronic) Malnutrition (Chronic) The patient appears to be tolerating hyperbaric oxygen therapy well, which will be continued as per the patient's medical plan.
[2018-03-17 12:00] LABS: Bedside Glucose 131 mg/dL (70-110)
[2018-03-21 09:20] VITALS: BP 130/61; BP 136/65; PULSE 74; PULSE 82; RESP 16; TEMP 35.8; TEMP 36.2
[2018-03-21 09:26] LABS: Bedside Glucose 163 mg/dL (70-110)
[2018-03-21 11:11] LABS: Bedside Glucose 141 mg/dL (70-110)
[2018-03-22 09:25] LABS: Bedside Glucose 248 mg/dL (70-110)
[2018-03-22 09:33] VITALS: BP 104/52; BP 134/68; PULSE 76; PULSE 84; RESP 16; TEMP 36.3
--- NOTE | 2018-03-22 10:27 | PCM.HBO.PN ---
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 Progress: The patient appears to be tolerating hyperbaric oxygen therapy well. This is his 2nd treatment course and his 34rd session of hyperbaric oxygen therapy. Tolerance of hyperbaric oxygen therapy: Hyperbaric oxygen therapy was administered as per the facility's protocol. The patient tolerated hyperbaric oxygen therapy well, without complaints or complications. Upon emergence from the hyperbaric chamber, patient's vital signs remained stable. Patient was discharged in good condition. 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) Delayed wound healing (Chronic) Malnutrition (Chronic) Venous insufficiency (Chronic) Lymphedema (Chronic) Edema of both legs (Chronic) GERD (gastroesophageal reflux disease) (Chronic) Hypertension (Chronic) Hyperlipemia (Chronic) Morbid obesity with BMI of 45.0-49.9, adult (Chronic) Hyperlipidemia associated with type 2 diabetes mellitus (Chronic) 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 Allergies/Adverse Reactions: Allergies bee venom protein (honey bee) Allergy (Verified 12/13/17 09:30) Swelling metronidazole [From Flagyl] Allergy (Verified 12/13/17 09:30) Itching Home Medications: Ambulatory Orders Medication Instructions Recorded Atorvastatin Calcium [Lipitor] 10 mg PO QHS 01/08/17 Brimonidine Tartrate 0.2% 1 drop EACH EYE BID 01/08/17 [Brimonidine 0.2% 5Ml Bottle] Ergocalciferol [Vitamin D] 50,000 unit PO FR 01/08/17 Gabapentin [Neurontin] 1,600 mg PO QHS 01/08/17 Gabapentin [Neurontin] 600 mg PO DAILY 01/08/17 Insulin U-500 [Humulin R U-500 105 units SC DINNER 01/08/17 ([facility])] Insulin U-500 [Humulin R U-500 105 units SC LUNCH 01/08/17 ([facility])] Insulin U-500 [Humulin R U-500 160 units SC BREAKFAST 01/08/17 ([facility])] Latanoprost 0.005% [Xalatan 1 drop EACH EYE QHS 01/08/17 Opthalmic] Losartan Potassium [Cozaar] 50 mg PO DAILY 01/08/17 Nebivolol HCl [Bystolic (Beta 10 mg PO DAILY 01/08/17 Akira)] Omeprazole [Prilosec] 40 mg PO DAILY 01/08/17 Acetaminophen [Tylenol Tablet] 650 mg PO Q6H PRN PRN tablet 09/07/17 Clopidogrel Bisulfate [Plavix] 75 mg PO DAILY 09/07/17 Menthol/Lanolin/Calamine/Znox 1 applic TOPICAL 0600,2200 tube 09/21/17 [Calmoseptine Ointment] Nutritional Supplement [Madhu - 1 packet PO BIDCM #60 packet 09/21/17 [employer]] Nystatin Powder [Mycostatin Powder] 1 applic TOPICAL 0600,2200 bottle 09/21/17 Ferrous Sulfate [Iron] 325 mg PO BID 10/14/17 Clindamycin HCl 300 mg PO [id number] #40 cap 12/13/17 Maternal Family History: Diabetes Paternal Family History: Hypertension Sibling Family History: Diabetes Smoking Status: Former smoker Physical Exam Vital Signs Temp Pulse Resp BP 97.4 F L 84 16 104/52 L 03/22/18 09:33 03/22/18 09:33 03/22/18 09:33 03/22/18 09:33 General: Alert, Oriented x3 HEENT: Atraumatic, TM's Clear - Left TM with tube placement. Right TM with hole in TM Lungs: Clear to auscultation, Normal air movement, No rhonchi Cardiovascular: Regular rate, Regular Rhythm Psych/Mental Status: Normal Affect Assessment/Plan Active Problems Ulcer of right lower extremity with fat layer exposed (Chronic) Ulcer of left lower extremity, limited to breakdown of skin (Chronic) Morbid obesity (Chronic) Venous stasis dermatitis (Chronic) Type 2 diabetes mellitus with diabetic polyneuropathy (Chronic) Delayed wound healing (Chronic) Malnutrition (Chronic) The patient appears to be tolerating hyperbaric oxygen therapy well, which will be continued as per the patient's medical plan.
--- NOTE | 2018-03-22 10:37 | HBO.PN.PCM_ITS ---
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 Progress: The patient appears to be tolerating hyperbaric oxygen therapy well. This is his 2nd treatment course and his 34rd session of hyperbaric oxygen therapy. Tolerance of hyperbaric oxygen therapy: Hyperbaric oxygen therapy was administered as per the facility's protocol. The patient tolerated hyperbaric oxygen therapy well, without complaints or complications. Upon emergence from the hyperbaric chamber, patient's vital signs remained stable. Patient was discharged in good condition. 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) Delayed wound healing (Chronic) Malnutrition (Chronic) Venous insufficiency (Chronic) Lymphedema (Chronic) Edema of both legs (Chronic) GERD (gastroesophageal reflux disease) (Chronic) Hypertension (Chronic) Hyperlipemia (Chronic) Morbid obesity with BMI of 45.0-49.9, adult (Chronic) Hyperlipidemia associated with type 2 diabetes mellitus (Chronic) 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 Allergies/Adverse Reactions: Allergies bee venom protein (honey bee) Allergy (Verified 12/13/17 09:30) Swelling metronidazole [From Flagyl] Allergy (Verified 12/13/17 09:30) Itching Home Medications: Ambulatory Orders Medication Instructions Recorded Atorvastatin Calcium [Lipitor] 10 mg PO QHS 01/08/17 Brimonidine Tartrate 0.2% 1 drop EACH EYE BID 01/08/17 [Brimonidine 0.2% 5Ml Bottle] Ergocalciferol [Vitamin D] 50,000 unit PO FR 01/08/17 Gabapentin [Neurontin] 1,600 mg PO QHS 01/08/17 Gabapentin [Neurontin] 600 mg PO DAILY 01/08/17 Insulin U-500 [Humulin R U-500 105 units SC DINNER 01/08/17 ([facility])] Insulin U-500 [Humulin R U-500 105 units SC LUNCH 01/08/17 ([facility])] Insulin U-500 [Humulin R U-500 160 units SC BREAKFAST 01/08/17 ([facility])] Latanoprost 0.005% [Xalatan 1 drop EACH EYE QHS 01/08/17 Opthalmic] Losartan Potassium [Cozaar] 50 mg PO DAILY 01/08/17 Nebivolol HCl [Bystolic (Beta 10 mg PO DAILY 01/08/17 Akira)] Omeprazole [Prilosec] 40 mg PO DAILY 01/08/17 Acetaminophen [Tylenol Tablet] 650 mg PO Q6H PRN PRN tablet 09/07/17 Clopidogrel Bisulfate [Plavix] 75 mg PO DAILY 09/07/17 Menthol/Lanolin/Calamine/Znox 1 applic TOPICAL 0600,2200 tube 09/21/17 [Calmoseptine Ointment] Nutritional Supplement [Madhu - 1 packet PO BIDCM #60 packet 09/21/17 ORANGE FLAVOR] Nystatin Powder [Mycostatin Powder] 1 applic TOPICAL 0600,2200 bottle 09/21/17 Ferrous Sulfate [Iron] 325 mg PO BID 10/14/17 Clindamycin HCl 300 mg PO [id number] #40 cap 12/13/17 Maternal Family History: Diabetes Paternal Family History: Hypertension Sibling Family History: Diabetes Smoking Status: Former smoker Physical Exam Vital Signs Temp Pulse Resp BP 97.4 F L 84 16 104/52 L 03/22/18 09:33 03/22/18 09:33 03/22/18 09:33 03/22/18 09:33 General: Alert, Oriented x3 HEENT: Atraumatic, TM's Clear - Left TM with tube placement. Right TM with hole in TM Lungs: Clear to auscultation, Normal air movement, No rhonchi Cardiovascular: Regular rate, Regular Rhythm Psych/Mental Status: Normal Affect Assessment/Plan Active Problems Ulcer of right lower extremity with fat layer exposed (Chronic) Ulcer of left lower extremity, limited to breakdown of skin (Chronic) Morbid obesity (Chronic) Venous stasis dermatitis (Chronic) Type 2 diabetes mellitus with diabetic polyneuropathy (Chronic) Delayed wound healing (Chronic) Malnutrition (Chronic) The patient appears to be tolerating hyperbaric oxygen therapy well, which will be continued as per the patient's medical plan.
[2018-03-22 11:31] LABS: Bedside Glucose 175 mg/dL (70-110)
--- NOTE | 2018-03-22 13:00 | PCM.HBO.PN ---
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 Progress: The patient appears to be tolerating hyperbaric oxygen therapy well. This is his 2nd treatment course and his 35th session of hyperbaric oxygen therapy. Tolerance of hyperbaric oxygen therapy: Hyperbaric oxygen therapy was administered as per the facility's protocol. The patient tolerated hyperbaric oxygen therapy well, without complaints or complications. Upon emergence from the hyperbaric chamber, patient's vital signs remained stable. Patient was discharged in good condition. 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) Delayed wound healing (Chronic) Malnutrition (Chronic) Venous insufficiency (Chronic) Lymphedema (Chronic) Edema of both legs (Chronic) GERD (gastroesophageal reflux disease) (Chronic) Hypertension (Chronic) Hyperlipemia (Chronic) Morbid obesity with BMI of 45.0-49.9, adult (Chronic) Hyperlipidemia associated with type 2 diabetes mellitus (Chronic) 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 Allergies/Adverse Reactions: Allergies bee venom protein (honey bee) Allergy (Verified 12/13/17 09:30) Swelling metronidazole [From Flagyl] Allergy (Verified 12/13/17 09:30) Itching Home Medications: Ambulatory Orders Medication Instructions Recorded Atorvastatin Calcium [Lipitor] 10 mg PO QHS 01/08/17 Brimonidine Tartrate 0.2% 1 drop EACH EYE BID 01/08/17 [Brimonidine 0.2% 5Ml Bottle] Ergocalciferol [Vitamin D] 50,000 unit PO FR 01/08/17 Gabapentin [Neurontin] 1,600 mg PO QHS 01/08/17 Gabapentin [Neurontin] 600 mg PO DAILY 01/08/17 Insulin U-500 [Humulin R U-500 105 units SC DINNER 01/08/17 ([facility])] Insulin U-500 [Humulin R U-500 105 units SC LUNCH 01/08/17 ([facility])] Insulin U-500 [Humulin R U-500 160 units SC BREAKFAST 01/08/17 ([facility])] Latanoprost 0.005% [Xalatan 1 drop EACH EYE QHS 01/08/17 Opthalmic] Losartan Potassium [Cozaar] 50 mg PO DAILY 01/08/17 Nebivolol HCl [Bystolic (Beta 10 mg PO DAILY 01/08/17 Akira)] Omeprazole [Prilosec] 40 mg PO DAILY 01/08/17 Acetaminophen [Tylenol Tablet] 650 mg PO Q6H PRN PRN tablet 09/07/17 Clopidogrel Bisulfate [Plavix] 75 mg PO DAILY 09/07/17 Menthol/Lanolin/Calamine/Znox 1 applic TOPICAL 0600,2200 tube 09/21/17 [Calmoseptine Ointment] Nutritional Supplement [Madhu - 1 packet PO BIDCM #60 packet 09/21/17 ORANGE FLAVOR] Nystatin Powder [Mycostatin Powder] 1 applic TOPICAL 0600,2200 bottle 09/21/17 Ferrous Sulfate [Iron] 325 mg PO BID 10/14/17 Clindamycin HCl 300 mg PO [id number] #40 cap 12/13/17 Maternal Family History: Diabetes Paternal Family History: Hypertension Sibling Family History: Diabetes Smoking Status: Former smoker Physical Exam Vital Signs Temp Pulse Resp BP 97.4 F L 84 16 104/52 L 03/22/18 09:33 03/22/18 09:33 03/22/18 09:33 03/22/18 09:33 General: Alert, Oriented x3, Cooperative, No apparent distress, Well developed, Well nourished HEENT: Atraumatic, PERRLA, EOMI, Normocephalic Lungs: Normal air movement Psych/Mental Status: Normal Affect, Appropriate, Alert and oriented to time, place, person, mood and affect Assessment/Plan Active Problems Ulcer of right lower extremity with fat layer exposed (Chronic) Ulcer of left lower extremity, limited to breakdown of skin (Chronic) Morbid obesity (Chronic) Venous stasis dermatitis (Chronic) Type 2 diabetes mellitus with diabetic polyneuropathy (Chronic) Delayed wound healing (Chronic) Malnutrition (Chronic) The patient appears to be tolerating hyperbaric oxygen therapy well, which will be continued as per the patient's medical plan.
[2018-03-23 08:17] VITALS: BP 166/74; PULSE 84; RESP 16; TEMP 36
--- NOTE | 2018-03-23 08:49 | PCM.WC.PN ---
(1) Ulcer of right lower extremity with fat layer exposed Status: Chronic Current Visit: Yes Code(s): L97.912 - Non-pressure chronic ulcer of unspecified part of right lower leg with fat layer exposed (2) Ulcer of left lower extremity, limited to breakdown of skin Status: Chronic Current Visit: Yes Code(s): L97.921 - Non-pressure chronic ulcer of unspecified part of left lower leg limited to breakdown of skin (3) Morbid obesity Status: Chronic Current Visit: Yes Code(s): E66.01 - Morbid (severe) obesity due to excess calories (4) Venous stasis dermatitis Status: Chronic Current Visit: Yes Code(s): I87.2 - Venous insufficiency (chronic) (peripheral) (5) Type 2 diabetes mellitus with diabetic polyneuropathy Status: Chronic Current Visit: Yes Code(s): E11.42 - Type 2 diabetes mellitus with diabetic polyneuropathy (6) Delayed wound healing Status: Chronic Current Visit: Yes Code(s): T14.8 - Other injury of unspecified body region (7) Malnutrition Status: Chronic Current Visit: Yes Code(s): E46 - Unspecified protein-calorie malnutrition Type of Wound Date of Service: 03/23/18 Chief Complaint: 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 History of Wound: 57-year-old white male returns to clinic for follow-up of bilateral leg ulcers and right foot ulcers. He denies fever, chill, nausea, vomiting, loss of appetite. He had multiple advanced wound care product applications. His swelling is slightly increaed today and he denies increased activity. Presents in a wheelchair today. He is amendable to undergo hyperbaric oxygen therapy and been attending the sessions as advised; he has been tolerating the sessions. He denies odors or redness. He has demonstrated significant delays in healing. He relates his left stump site is barely leaking fluid. His last hyperbaric session is scheduled for next Wednesday. Progress of Wound: Improving - Physical Exam Vital Signs Temp Pulse Resp BP 96.8 F L 84 16 166/74 H 03/23/18 08:17 03/23/18 08:17 03/23/18 08:17 03/23/18 08:17 General: Alert, Oriented x3, Cooperative Extremities: No cyanosis, Capillary Refill Less than 3 Seconds, No Calf Tenderness, Diminished Peripheral Pulses, Edema - Edema is moderate right lower extremity, Peripheral Pulses Normal, - - Left below-knee amputation Skin: Ulcer/ Wound - No purulence, no erythema, streaking, or action bilateral. There is maceration to the digital area of the right foot Wound Measurements and Assessment WC - Nurse 1 - General Ulcer Measurement Start: 03/07/18 16:13 Freq: Status: Active Protocol: Activity Type Activity Date Activity User E-Sign Co-Sign Detail Recorded Client Recorded Date Recorded By Document 03/23/18 08:17 ANUP [id number] 03/23/18 08:19 ANUP 03/23/18 08:17 Wound Center Nurse 1 [Ulcer Assessment] #13 R Med Heel -Combined with other wound No -Current Size (cm) - Length 2 -Current Size (cm) - Width 2.8 -Current Size (cm) - Depth 0.1 -Total Square Cm 5.6 -Photo Taken No -Epithelialization Medium 34-66% -Tunneling No -Undermining/Tunneling No -Circular Undermining No -Exudate Amt Small (1-33%) -Exudate Type Serosanguineous -Wound Margin Flat & Intact -Granulation Amt Medium (34-66%) -Granulation Quality [place] -Slough/Fibrin Yes -Necrosis Amt Medium (34-66%) -Necrotic Tissue Type Adherent Slough -Structure Exposed N/A -Texture (Martha-wound Skin Appearance) Assessed Localized Edema -Moisture (Martha-wound Skin Appearance Assessed ) Dry/Scaly -Color (Martha-wound Skin Appearance) Assessed -Temperature (Martha-wound Skin No Abnormality Appearance) (Pt Warm) -Tenderness on Palpation (Martha-wound No Skin Appearance) -Ulcer Cleansing Wound Cleanser -Foul Odor after Cleansing No -Anesthetic Used 4% Lidocaine Solution #21 Right Foot-Toes w/Metatarsal Head circumfrential -Combined with other wound No -Current Size (cm) - Length 0.5 -Current Size (cm) - Width 0.5 -Current Size (cm) - Depth 0.1 -Total Square Cm 0.25 -Photo Taken No -Epithelialization Small 1-33% -Tunneling No -Undermining/Tunneling No -Circular Undermining No -Exudate Amt Small (1-33%) -Exudate Type Serosanguineous -Wound Margin Flat & Intact -Granulation Amt Large (67-100%) -Granulation Quality Red -Slough/Fibrin Yes -Necrosis Amt Small (1-33%) -Necrotic Tissue Type Adherent Slough -Structure Exposed N/A -Texture (Martha-wound Skin Appearance) Assessed Localized Edema -Moisture (Martha-wound Skin Appearance Assessed ) Dry/Scaly -Color (Martha-wound Skin Appearance) Assessed -Temperature (Martha-wound Skin No Abnormality Appearance) (Pt Warm) -Tenderness on Palpation (Martha-wound No Skin Appearance) -Ulcer Cleansing Wound Cleanser -Foul Odor after Cleansing No -Anesthetic Used 4% Lidocaine Solution [Edema Assessment] -Lower Limb Edema Present Yes -Right Calf (cm) 38.6 -Right Ankle (cm) 29.6 -Left Calf (cm) 40.5 WC - Nurse 2 - General Ulcer CM Notes Start: 03/07/18 16:13 Freq: Status: Active Protocol: Activity Type Activity Date Activity User E-Sign Co-Sign Detail Recorded Client Recorded Date Recorded By Document 03/23/18 08:33 [id number] 03/23/18 08:36 03/23/18 08:33 Wound Center Nurse 2 [Procedure/Treatment] #13 R Med Heel -Time 08:34 -Correct Patient Yes -Correct Side, Site, Position Yes -Correct Procedure Yes -Procedure Performed Yes -Type of Procedure Debridement -Clinical Debridement Subcutaneous -Post Debridement Size (cm) - Length 2.1 -Post Debridement Size (cm) - Width 2.9 -Post Debridement Size (cm) - Depth 0.1 -Total Square Cm 6.09 -Wound/Ulcer Outcome Not Healed -Ulcer Cleansing Rinsed/ Irrigated with Saline -Foul Odor after Cleansing No -Bioengineered Tissue Yes -Type of bioengineered Tissue NU-SHIELD -Expiration Date 02/24/23 -Product Lot Number [id number] -Percent Used 50 -Saline Lot Number 4 -Bleeding Controlled with Pressure -Treatment Response Procedure Tolerated Well #21 Right Foot-Toes w/Metatarsal Head circumfrential -Time 08:34 -Correct Patient Yes -Correct Side, Site, Position Yes -Correct Procedure Yes -Procedure Performed Yes -Type of Procedure Debridement -Clinical Debridement Subcutaneous -Post Debridement Size (cm) - Length 0.6 -Post Debridement Size (cm) - Width 0.6 -Post Debridement Size (cm) - Depth 0.1 -Total Square Cm 0.36 -Wound/Ulcer Outcome Not Healed -Ulcer Cleansing Rinsed/ Irrigated with Saline -Foul Odor after Cleansing No -Bioengineered Tissue No -Type of bioengineered Tissue NU-SHIELD -Expiration Date 02/24/23 -Product Lot Number [id number] -Percent Used 50 -Bleeding Controlled with Pressure -Treatment Response Procedure Tolerated Well [See Physician Procedure note for Specifics] Pain Scale: 0-10 Numeric [Pain] -Is Patient Pain Free? Yes Musculoskeletal: No Tenderness to Palpation of Joints or Extremities, Muscle Wasting Neurological: - - Lack of epicritic sensation light touch bilateral lower extremities Psych/Mental Status: Normal Affect, Appropriate Debridement Note Post-Debridement Measurements/Treatment WC - Nurse 2 - General Ulcer CM Notes Start: 03/07/18 16:13 Freq: Status: Active Protocol: Activity Type Activity Date Activity User E-Sign Co-Sign Detail Recorded Client Recorded Date Recorded By Document 03/09/18 12:49 [id number] 03/09/18 12:56 TM Document 03/16/18 08:38 [id number] 03/16/18 08:42 TM Document 03/23/18 08:33 [id number] 03/23/18 08:36 TM 03/09/18 03/16/18 03/23/18 12:49 08:38 08:33 Wound Center Nurse 2 #13 R Med Heel -Time 12:55 08:38 08:34 -Correct Patient Yes Yes Yes -Correct Side, Site, Position Yes Yes Yes -Correct Procedure Yes Yes Yes -Procedure Performed Yes Yes Yes -Type of Procedure Debridement Debridement Debridement -Clinical Debridement Subcutaneous Subcutaneous Subcutaneous -Post Debridement Size (cm) - Length 2.1 2.4 2.1 -Post Debridement Size (cm) - Width 2.3 2.3 2.9 -Post Debridement Size (cm) - Depth 0.1 0.1 0.1 -Total Square Cm 4.83 5.52 6.09 -Wound/Ulcer Outcome Not Healed Not Healed Not Healed -Ulcer Cleansing Rinsed/ Rinsed/ Rinsed/ Irrigated with Irrigated with Irrigated with Saline Saline Saline -Foul Odor after Cleansing No No No -Bioengineered Tissue No Yes Yes -Type of bioengineered Tissue NU-SHIELD NU-SHIELD -Expiration Date 02/15/23 02/24/23 -Product Lot Number [id number] -Percent Used 50 50 -Saline Lot Number [id number] -Topical Lidocaine (%) 4 4 -Bleeding Controlled with Pressure Pressure Pressure -Treatment Response Procedure Procedure Procedure Tolerated Well Tolerated Well Tolerated Well #21 Right Foot-Toes w/Metatarsal Head circumfrential -Time 12:55 08:39 08:34 -Correct Patient Yes Yes Yes -Correct Side, Site, Position Yes Yes Yes -Correct Procedure Yes Yes Yes -Procedure Performed Yes Yes Yes -Type of Procedure Debridement Debridement Debridement -Clinical Debridement Subcutaneous Subcutaneous Subcutaneous -Post Debridement Size (cm) - Length 0.7 5.1 0.6 -Post Debridement Size (cm) - Width 0.5 2.3 0.6 -Post Debridement Size (cm) - Depth 0.2 0.2 0.1 -Total Square Cm 0.35 11.73 0.36 -Wound/Ulcer Outcome Not Healed Not Healed Not Healed -Ulcer Cleansing Rinsed/ Rinsed/ Rinsed/ Irrigated with Irrigated with Irrigated with Saline Saline Saline -Foul Odor after Cleansing No No No -Bioengineered Tissue No Yes No -Type of bioengineered Tissue NU-SHIELD NU-SHIELD -Expiration Date 02/15/23 02/24/23 -Product Lot Number [id number] -Percent Used 50 50 -Saline Lot Number [id number] -Topical Lidocaine (%) 4 4 -Bleeding Controlled with Pressure Pressure Pressure -Treatment Response Procedure Procedure Procedure Tolerated Well Tolerated Well Tolerated Well Pain Scale: 0-10 Numeric Is Patient Pain Free? Yes Yes Yes Wound debrided: heel Laterality: Right Wound Grade/Stage: grade 3 Type of Debridement: Excisional debridement Anesthesia Used: 4% Lidocaine Solution Depth: in the subcutaneous layer Percentage of wound debrided: 100 Instrument Used: #15 blade Tissue Removed: fibrous, devitalized subcutaneous, biofilm, slough Severity: Fat Layer Exposed Amount of bleeding with debridement: Mild Bleeding Controlled with: Pressure Patient tolerated procedure well - Additional Wound Wound debrided: toe Laterality: Right Wound Grade/Stage: grade 1 Type of Debridement: Excisional debridement Anesthesia Used: 4% Lidocaine Solution Depth: in the subcutaneous layer Percentage of wound debrided: 100 Instrument Used: #15 blade Tissue Removed: fibrous, devitalized subcutaneous, biofilm, slough Severity: Fat Layer Exposed Amount of bleeding with debridement: Mild Bleeding Controlled with: Pressure Patient tolerated procedure: Patient tolerated procedure well Assessment/Plan Active Problems Ulcer of right lower extremity with fat layer exposed (Chronic) Ulcer of left lower extremity, limited to breakdown of skin (Chronic) Morbid obesity (Chronic) Venous stasis dermatitis (Chronic) Type 2 diabetes mellitus with diabetic polyneuropathy (Chronic) Delayed wound healing (Chronic) Malnutrition (Chronic) Assessment: ulcer right forefoot (digit 2). right heel ulcer muscle involved and exposed fascia without infection noted today (previous grade 3); s/p surgical debridement and application of advance wound care products (amniofil and epicord). Left below-knee amputation sub-hemorrhagic tissue with continued weeping noted; no infection. Lymphedema. Ulcer left stump site with skin layer exposed, no infection. Chronic lower extremity edema and venous insufficiency. Morbid obesity. Type 2 diabetes uncontrolled with peripheral neuropathy. CKD. Hypertension. Left below-knee amputation. Malnutrition. Delayed wound healing. Nonadherence to treatment plan Plan: I reviewed and discussed his case debridement done as documented above in the clinical panel, procedure was well tolerated. Additional advanced product application prior authorization is pending; [facility]. This is medically necessary and will facilitate a more timely healing course. Verbal consent was obtained and this was applied according to [facility] protocol. This was secured with steri strips and a wound veil. To keep this intact until follow up next week. Continue compression and elevate lower extreity when sitting and in bed. Optimal blood sugar contol. Continue protein suppplements and increased protein in diet. To continue hyperbaric oxygen therapy as scheduled on complaint basis. An additional consultation will be scheduled for next week with Dr. Valdes to see if another hyperbaric prescription is appropriate. I encouraged continued use. If his left limb continues to have no weeping next week the plan is to progress him into his shrink wrap with the intention to progress to his leg prosthetic. To improve compliance with compression pumps. I advised him to at least get a second session even if it is reduced in time each day. He reports he is doing this and I recommend he continues. Follow up in 1 week with at the wound healing center or call sooner if he has any questions or concerns.
--- NOTE | 2018-03-23 08:53 | PN.PCM_ITS ---
(1) Ulcer of right lower extremity with fat layer exposed Status: Chronic Current Visit: Yes Code(s): L97.912 - Non-pressure chronic ulcer of unspecified part of right lower leg with fat layer exposed (2) Ulcer of left lower extremity, limited to breakdown of skin Status: Chronic Current Visit: Yes Code(s): L97.921 - Non-pressure chronic ulcer of unspecified part of left lower leg limited to breakdown of skin (3) Morbid obesity Status: Chronic Current Visit: Yes Code(s): E66.01 - Morbid (severe) obesity due to excess calories (4) Venous stasis dermatitis Status: Chronic Current Visit: Yes Code(s): I87.2 - Venous insufficiency (chronic) (peripheral) (5) Type 2 diabetes mellitus with diabetic polyneuropathy Status: Chronic Current Visit: Yes Code(s): E11.42 - Type 2 diabetes mellitus with diabetic polyneuropathy (6) Delayed wound healing Status: Chronic Current Visit: Yes Code(s): T14.8 - Other injury of unspecified body region (7) Malnutrition Status: Chronic Current Visit: Yes Code(s): E46 - Unspecified protein- calorie malnutrition Type of Wound Date of Service: 03/23/18 Chief Complaint: 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 History of Wound: 57-year-old white male returns to clinic for follow-up of bilateral leg ulcers and right foot ulcers. He denies fever, chill, nausea, vomiting, loss of appetite. He had multiple advanced wound care product applications. His swelling is slightly increaed today and he denies increased activity. Presents in a wheelchair today. He is amendable to undergo hyperbaric oxygen therapy and been attending the sessions as advised; he has been tolerating the sessions. He denies odors or redness. He has demonstrated significant delays in healing. He relates his left stump site is barely leaking fluid. His last hyperbaric session is scheduled for next Wednesday. Progress of Wound: Improving - Physical Exam Vital Signs Temp Pulse Resp BP 96.8 F L 84 16 166/74 H 03/23/18 08:17 03/23/18 08:17 03/23/18 08:17 03/23/18 08:17 General: Alert, Oriented x3, Cooperative Extremities: No cyanosis, Capillary Refill Less than 3 Seconds, No Calf Tenderness, Diminished Peripheral Pulses, Edema - Edema is moderate right lower extremity, Peripheral Pulses Normal, - - Left below-knee amputation Skin: Ulcer/ Wound - No purulence, no erythema, streaking, or action bilateral. There is maceration to the digital area of the right foot Wound Measurements and Assessment WC - Nurse 1 - General Ulcer Measurement Start: 03/07/18 16:13 Freq: Status: Active Protocol: Activity Type Activity Date Activity User E-Sign Co-Sign Detail Recorded Client Recorded Date Recorded By Document 03/23/18 08:17 ANUP [id number] 03/23/18 08:19 ANUP 03/23/18 08:17 Wound Center Nurse 1 [Ulcer Assessment] #13 R Med Heel -Combined with other wound No -Current Size (cm) - Length 2 -Current Size (cm) - Width 2.8 -Current Size (cm) - Depth 0.1 -Total Square Cm 5.6 -Photo Taken No -Epithelialization Medium 34-66% -Tunneling No -Undermining/Tunneling No -Circular Undermining No -Exudate Amt Small (1-33%) -Exudate Type Serosanguineous -Wound Margin Flat & Intact -Granulation Amt Medium (34-66%) -Granulation Quality [place] -Slough/Fibrin Yes -Necrosis Amt Medium (34-66%) -Necrotic Tissue Type Adherent Slough -Structure Exposed N/A -Texture (Martha-wound Skin Appearance) Assessed Localized Edema -Moisture (Martha-wound Skin Appearance Assessed ) Dry/Scaly -Color (Martha-wound Skin Appearance) Assessed -Temperature (Martha-wound Skin No Abnormality Appearance) (Pt Warm) -Tenderness on Palpation (Martha-wound No Skin Appearance) -Ulcer Cleansing Wound Cleanser -Foul Odor after Cleansing No -Anesthetic Used 4% Lidocaine Solution #21 Right Foot-Toes w/Metatarsal Head circumfrential -Combined with other wound No -Current Size (cm) - Length 0.5 -Current Size (cm) - Width 0.5 -Current Size (cm) - Depth 0.1 -Total Square Cm 0.25 -Photo Taken No -Epithelialization Small 1-33% -Tunneling No -Undermining/Tunneling No -Circular Undermining No -Exudate Amt Small (1-33%) -Exudate Type Serosanguineous -Wound Margin Flat & Intact -Granulation Amt Large (67-100%) -Granulation Quality Red -Slough/Fibrin Yes -Necrosis Amt Small (1-33%) -Necrotic Tissue Type Adherent Slough -Structure Exposed N/A -Texture (Martha-wound Skin Appearance) Assessed Localized Edema -Moisture (Martha-wound Skin Appearance Assessed ) Dry/Scaly -Color (Martha-wound Skin Appearance) Assessed -Temperature (Martha-wound Skin No Abnormality Appearance) (Pt Warm) -Tenderness on Palpation (Martha-wound No Skin Appearance) -Ulcer Cleansing Wound Cleanser -Foul Odor after Cleansing No -Anesthetic Used 4% Lidocaine Solution [Edema Assessment] -Lower Limb Edema Present Yes -Right Calf (cm) 38.6 -Right Ankle (cm) 29.6 -Left Calf (cm) 40.5 WC - Nurse 2 - General Ulcer CM Notes Start: 03/07/18 16:13 Freq: Status: Active Protocol: Activity Type Activity Date Activity User E-Sign Co-Sign Detail Recorded Client Recorded Date Recorded By Document 03/23/18 08:33 [id number] 03/23/18 08:36 03/23/18 08:33 Wound Center Nurse 2 [Procedure/Treatment] #13 R Med Heel -Time 08:34 -Correct Patient Yes -Correct Side, Site, Position Yes -Correct Procedure Yes -Procedure Performed Yes -Type of Procedure Debridement -Clinical Debridement Subcutaneous -Post Debridement Size (cm) - Length 2.1 -Post Debridement Size (cm) - Width 2.9 -Post Debridement Size (cm) - Depth 0.1 -Total Square Cm 6.09 -Wound/Ulcer Outcome Not Healed -Ulcer Cleansing Rinsed/ Irrigated with Saline -Foul Odor after Cleansing No -Bioengineered Tissue Yes -Type of bioengineered Tissue NU-SHIELD -Expiration Date 02/24/23 -Product Lot Number [id number] -Percent Used 50 -Saline Lot Number 4 -Bleeding Controlled with Pressure -Treatment Response Procedure Tolerated Well #21 Right Foot-Toes w/Metatarsal Head circumfrential -Time 08:34 -Correct Patient Yes -Correct Side, Site, Position Yes -Correct Procedure Yes -Procedure Performed Yes -Type of Procedure Debridement -Clinical Debridement Subcutaneous -Post Debridement Size (cm) - Length 0.6 -Post Debridement Size (cm) - Width 0.6 -Post Debridement Size (cm) - Depth 0.1 -Total Square Cm 0.36 -Wound/Ulcer Outcome Not Healed -Ulcer Cleansing Rinsed/ Irrigated with Saline -Foul Odor after Cleansing No -Bioengineered Tissue No -Type of bioengineered Tissue NU-SHIELD -Expiration Date 02/24/23 -Product Lot Number [id number] -Percent Used 50 -Bleeding Controlled with Pressure -Treatment Response Procedure Tolerated Well [See Physician Procedure note for Specifics] Pain Scale: 0-10 Numeric [Pain] -Is Patient Pain Free? Yes Musculoskeletal: No Tenderness to Palpation of Joints or Extremities, Muscle Wasting Neurological: - - Lack of epicritic sensation light touch bilateral lower extremities Psych/Mental Status: Normal Affect, Appropriate Debridement Note Post-Debridement Measurements/Treatment WC - Nurse 2 - General Ulcer CM Notes Start: 03/07/18 16:13 Freq: Status: Active Protocol: Activity Type Activity Date Activity User E-Sign Co-Sign Detail Recorded Client Recorded Date Recorded By Document 03/09/18 12:49 [id number] 03/09/18 12:56 TM Document 03/16/18 08:38 [id number] 03/16/18 08:42 TM Document 03/23/18 08:33 [id number] 03/23/18 08:36 TM 03/09/18 03/16/18 03/23/18 12:49 08:38 08:33 Wound Center Nurse 2 #13 R Med Heel -Time 12:55 08:38 08:34 -Correct Patient Yes Yes Yes -Correct Side, Site, Position Yes Yes Yes -Correct Procedure Yes Yes Yes -Procedure Performed Yes Yes Yes -Type of Procedure Debridement Debridement Debridement -Clinical Debridement Subcutaneous Subcutaneous Subcutaneous -Post Debridement Size (cm) - Length 2.1 2.4 2.1 -Post Debridement Size (cm) - Width 2.3 2.3 2.9 -Post Debridement Size (cm) - Depth 0.1 0.1 0.1 -Total Square Cm 4.83 5.52 6.09 -Wound/Ulcer Outcome Not Healed Not Healed Not Healed -Ulcer Cleansing Rinsed/ Rinsed/ Rinsed/ Irrigated with Irrigated with Irrigated with Saline Saline Saline -Foul Odor after Cleansing No No No -Bioengineered Tissue No Yes Yes -Type of bioengineered Tissue NU-SHIELD NU-SHIELD -Expiration Date 02/15/23 02/24/23 -Product Lot Number [id number] -Percent Used 50 50 -Saline Lot Number [id number] -Topical Lidocaine (%) 4 4 -Bleeding Controlled with Pressure Pressure Pressure -Treatment Response Procedure Procedure Procedure Tolerated Well Tolerated Well Tolerated Well #21 Right Foot-Toes w/Metatarsal Head circumfrential -Time 12:55 08:39 08:34 -Correct Patient Yes Yes Yes -Correct Side, Site, Position Yes Yes Yes -Correct Procedure Yes Yes Yes -Procedure Performed Yes Yes Yes -Type of Procedure Debridement Debridement Debridement -Clinical Debridement Subcutaneous Subcutaneous Subcutaneous -Post Debridement Size (cm) - Length 0.7 5.1 0.6 -Post Debridement Size (cm) - Width 0.5 2.3 0.6 -Post Debridement Size (cm) - Depth 0.2 0.2 0.1 -Total Square Cm 0.35 11.73 0.36 -Wound/Ulcer Outcome Not Healed Not Healed Not Healed -Ulcer Cleansing Rinsed/ Rinsed/ Rinsed/ Irrigated with Irrigated with Irrigated with Saline Saline Saline -Foul Odor after Cleansing No No No -Bioengineered Tissue No Yes No -Type of bioengineered Tissue NU-SHIELD NU-SHIELD -Expiration Date 02/15/23 02/24/23 -Product Lot Number [id number] -Percent Used 50 50 -Saline Lot Number [id number] -Topical Lidocaine (%) 4 4 -Bleeding Controlled with Pressure Pressure Pressure -Treatment Response Procedure Procedure Procedure Tolerated Well Tolerated Well Tolerated Well Pain Scale: 0-10 Numeric Is Patient Pain Free? Yes Yes Yes Wound debrided: heel Laterality: Right Wound Grade/Stage: grade 3 Type of Debridement: Excisional debridement Anesthesia Used: 4% Lidocaine Solution Depth: in the subcutaneous layer Percentage of wound debrided: 100 Instrument Used: #15 blade Tissue Removed: fibrous, devitalized subcutaneous, biofilm, slough Severity: Fat Layer Exposed Amount of bleeding with debridement: Mild Bleeding Controlled with: Pressure Patient tolerated procedure well - Additional Wound Wound debrided: toe Laterality: Right Wound Grade/Stage: grade 1 Type of Debridement: Excisional debridement Anesthesia Used: 4% Lidocaine Solution Depth: in the subcutaneous layer Percentage of wound debrided: 100 Instrument Used: #15 blade Tissue Removed: fibrous, devitalized subcutaneous, biofilm, slough Severity: Fat Layer Exposed Amount of bleeding with debridement: Mild Bleeding Controlled with: Pressure Patient tolerated procedure: Patient tolerated procedure well Assessment/Plan Active Problems Ulcer of right lower extremity with fat layer exposed (Chronic) Ulcer of left lower extremity, limited to breakdown of skin (Chronic) Morbid obesity (Chronic) Venous stasis dermatitis (Chronic) Type 2 diabetes mellitus with diabetic polyneuropathy (Chronic) Delayed wound healing (Chronic) Malnutrition (Chronic) Assessment: ulcer right forefoot (digit 2). right heel ulcer muscle involved and exposed fascia without infection noted today (previous grade 3); s/p surgical debridement and application of advance wound care products (amniofil and epicord). Left below-knee amputation sub-hemorrhagic tissue with continued weeping noted; no infection. Lymphedema. Ulcer left stump site with skin layer exposed, no infection. Chronic lower extremity edema and venous insufficiency. Morbid obesity. Type 2 diabetes uncontrolled with peripheral neuropathy. CKD. Hypertension. Left below-knee amputation. Malnutrition. Delayed wound healing. Nonadherence to treatment plan Plan: I reviewed and discussed his case debridement done as documented above in the clinical panel, procedure was well tolerated. Additional advanced product application prior authorization is pending; [facility]. This is medically necessary and will facilitate a more timely healing course. Verbal consent was obtained and this was applied according to [facility] protocol. This was secured with steri strips and a wound veil. To keep this intact until follow up next week. Continue compression and elevate lower extreity when sitting and in bed. Optimal blood sugar contol. Continue protein suppplements and increased protein in diet. To continue hyperbaric oxygen therapy as scheduled on complaint basis. An additional consultation will be scheduled for next week with Dr. Valdes to see if another hyperbaric prescription is appropriate. I encouraged continued use. If his left limb continues to have no weeping next week the plan is to progress him into his shrink wrap with the intention to progress to his leg prosthetic. To improve compliance with compression pumps. I advised him to at least get a second session even if it is reduced in time each day. He reports he is doing this and I recommend he continues. Follow up in 1 week with at the wound healing center or call sooner if he has any questions or concerns.
[2018-03-23 09:16] LABS: Bedside Glucose 292 mg/dL (70-110)
[2018-03-29 09:56] LABS: Bedside Glucose 150 mg/dL (70-110)
[2018-03-29 11:40] VITALS: BP 135/65; BP 136/71; PULSE 84; PULSE 86; RESP 18; TEMP 36.1; TEMP 37
[2018-03-29 12:15] LABS: Bedside Glucose 82 mg/dL (70-110)
--- NOTE | 2018-03-29 15:26 | HBO.PN.PCM_ITS ---
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 Progress: The patient appears to be tolerating hyperbaric oxygen therapy well. This is his 2nd treatment course and his 36th session of hyperbaric oxygen therapy. Tolerance of hyperbaric oxygen therapy: Hyperbaric oxygen therapy was administered as per the facility's protocol. The patient tolerated hyperbaric oxygen therapy well, without complaints or complications. Upon emergence from the hyperbaric chamber, patient's vital signs remained stable. Patient was discharged in good condition. 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) Delayed wound healing (Chronic) Malnutrition (Chronic) Venous insufficiency (Chronic) Lymphedema (Chronic) Edema of both legs (Chronic) GERD (gastroesophageal reflux disease) (Chronic) Hypertension (Chronic) Hyperlipemia (Chronic) Morbid obesity with BMI of 45.0-49.9, adult (Chronic) Hyperlipidemia associated with type 2 diabetes mellitus (Chronic) 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 Allergies/Adverse Reactions: Allergies bee venom protein (honey bee) Allergy (Verified 12/13/17 09:30) Swelling metronidazole [From Flagyl] Allergy (Verified 12/13/17 09:30) Itching Home Medications: Ambulatory Orders Medication Instructions Recorded Atorvastatin Calcium [Lipitor] 10 mg PO QHS 01/08/17 Brimonidine Tartrate 0.2% 1 drop EACH EYE BID 01/08/17 [Brimonidine 0.2% 5Ml Bottle] Ergocalciferol [Vitamin D] 50,000 unit PO FR 01/08/17 Gabapentin [Neurontin] 1,600 mg PO QHS 01/08/17 Gabapentin [Neurontin] 600 mg PO DAILY 01/08/17 Insulin U-500 [Humulin R U-500 105 units SC [facility]NER [facility]08/17 [facility] Insulin U-500 [Humulin R U-500 105 units SC LUNCH 01/08/17 ([facility])] Insulin U-500 [Humulin R U-500 160 units SC BREAKFAST 01/08/17 ([facility])] Latanoprost 0.005% [Xalatan 1 drop EACH EYE QHS 01/08/17 Opthalmic] Losartan Potassium [Cozaar] 50 mg PO DAILY 01/08/17 Nebivolol HCl [Bystolic (Beta 10 mg PO DAILY 01/08/17 Akira)] Omeprazole [Prilosec] 40 mg PO DAILY 01/08/17 Acetaminophen [Tylenol Tablet] 650 mg PO Q6H PRN PRN tablet 09/07/17 Clopidogrel Bisulfate [Plavix] 75 mg PO DAILY 09/07/17 Menthol/Lanolin/Calamine/Znox 1 applic TOPICAL 0600,2200 tube 09/21/17 [Calmoseptine Ointment] Nutritional Supplement [Madhu - 1 packet PO BIDCM #60 packet 09/21/17 [place] [facility]LA[facility]OR] Nystatin Powder [Mycostatin Powder] 1 applic TOPICAL 0600,2200 bottle 09/21/17 Ferrous Sulfate [Iron] 325 mg PO BID 10/14/17 Clindamycin HCl 300 mg PO [id number] #40 cap 12/13/17 Maternal Family History: Diabetes Paternal Family History: Hypertension Sibling Family History: Diabetes Smoking Status: Former smoker Physical Exam Vital Signs Temp Pulse Resp BP 97.0 F L 86 18 136/71 H 03/29/18 11:40 03/29/18 11:40 03/29/18 11:40 03/29/18 11:40 General: Alert, Oriented x3, Cooperative, No apparent distress, Well developed, Well nourished HEENT: Atraumatic, PERRLA, EOMI, Normocephalic Lungs: Normal air movement Psych/Mental Status: Normal Affect, Appropriate, Alert and oriented to time, place, person, mood and affect Assessment/Plan Active Problems Ulcer of right lower extremity with fat layer exposed (Chronic) Ulcer of left lower extremity, limited to breakdown of skin (Chronic) Morbid obesity (Chronic) Venous stasis dermatitis (Chronic) Type 2 diabetes mellitus with diabetic polyneuropathy (Chronic) Delayed wound healing (Chronic) Malnutrition (Chronic) The patient appears to be tolerating hyperbaric oxygen therapy well, which will be continued as per the patient's medical plan.
[2018-03-30 08:22] VITALS: BP 114/55; PULSE 87; RESP 16; TEMP 36.2
[2018-03-30 09:20] VITALS: BP 139/73; PULSE 83; RESP 18; TEMP 36.1
[2018-03-30 09:20] LABS: Bedside Glucose 138 mg/dL (70-110)
--- NOTE | 2018-03-30 09:42 | PCM.WC.PN ---
(1) Non-pressure chronic ulcer of other part of right foot with fat layer exposed Status: Chronic Current Visit: Yes Code(s): L97.512 - Non-pressure chronic ulcer of other part of right foot with fat layer exposed (2) Ulcer of right lower extremity with fat layer exposed Status: Chronic Current Visit: Yes Code(s): L97.912 - Non-pressure chronic ulcer of unspecified part of right lower leg with fat layer exposed (3) Ulcer of left lower extremity, limited to breakdown of skin Status: Chronic Current Visit: Yes Code(s): L97.921 - Non-pressure chronic ulcer of unspecified part of left lower leg limited to breakdown of skin (4) Morbid obesity Status: Chronic Current Visit: Yes Code(s): E66.01 - Morbid (severe) obesity due to excess calories (5) Venous stasis dermatitis Status: Chronic Current Visit: Yes Code(s): I87.2 - Venous insufficiency (chronic) (peripheral) (6) Type 2 diabetes mellitus with diabetic polyneuropathy Status: Chronic Current Visit: Yes Code(s): E11.42 - Type 2 diabetes mellitus with diabetic polyneuropathy (7) Delayed wound healing Status: Chronic Current Visit: Yes Code(s): T14.8 - Other injury of unspecified body region (8) Malnutrition Status: Chronic Current Visit: Yes Code(s): E46 - Unspecified protein-calorie malnutrition Type of Wound Date of Service: 03/30/18 Chief Complaint: 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 History of Wound: 57-year-old white male returns to clinic for follow-up of bilateral leg ulcers and right foot ulcers. He denies fever, chill, nausea, vomiting, loss of appetite. He had multiple advanced wound care product applications. His swelling is slightly increaed today and he admits increased activity in the past week. He missed all of his hyperbaric oxygen therapy sessions this past week. He had skin cancer surgery performed at an outside facility to the top of his head this past week. He presents in a wheelchair today. He denies odors or redness. He has demonstrated significant delays in healing. Progress of Wound: Improving - Physical Exam Vital Signs Temp Pulse Resp BP 97.1 F L 87 16 114/55 L 03/30/18 08:22 03/30/18 08:22 03/30/18 08:22 03/30/18 08:22 General: Alert, Oriented x3, Cooperative Extremities: No cyanosis, Capillary Refill Less than 3 Seconds, No Calf Tenderness - Negative Harry and Badillo sign right lower extremity, Diminished Peripheral Pulses, Edema - Increased left lower extremity below-knee amputation stump site. Stable right lower extremity Skin: Ulcer/ Wound - No purulence, no erythema, streaking, no odor, no infection. The peripheral skin is hairless and atrophic. Wound Measurements and Assessment WC - Nurse 1 - General Ulcer Measurement Start: 03/07/18 16:13 Freq: Status: Active Protocol: Activity Type Activity Date Activity User E-Sign Co-Sign Detail Recorded Client Recorded Date Recorded By Document 03/30/18 08:22 [id number] 03/30/18 08:27 03/30/18 08:22 Wound Center Nurse 1 [Ulcer Assessment] #13 R Med Heel -Combined with other wound No -Current Size (cm) - Length 1.3 -Current Size (cm) - Width 2.6 -Current Size (cm) - Depth 0.1 -Total Square Cm 3.38 -Photo Taken No -Epithelialization None Present -Tunneling No -Undermining/Tunneling No -Circular Undermining No -Exudate Amt Large (67-100%) -Exudate Type Yellow/Green -Wound Margin Distinct, Outline Attached -Granulation Amt Small (1-33%) -Granulation Quality [place] -Slough/Fibrin Yes -Necrosis Amt Medium (34-66%) -Necrotic Tissue Type Adherent Slough -Structure Exposed None/Limited to Skin Breakdown -Texture (Martha-wound Skin Appearance) Excoriation -Moisture (Martha-wound Skin Appearance Assessed ) Weeping -Color (Martha-wound Skin Appearance) No Abnormality Assessed -Temperature (Martha-wound Skin No Abnormality Appearance) (Pt Warm) -Tenderness on Palpation (Martha-wound No Skin Appearance) -Ulcer Cleansing Wound Cleanser -Foul Odor after Cleansing No #21 Right Foot-Toes w/Metatarsal Head circumfrential -Combined with other wound No -Current Size (cm) - Length 1 -Current Size (cm) - Width 0.8 -Current Size (cm) - Depth 0.1 -Total Square Cm 0.8 -Photo Taken No -Epithelialization None Present -Tunneling No -Undermining/Tunneling No -Circular Undermining No -Exudate Amt Large (67-100%) -Exudate Type Yellow/Green -Wound Margin Fibrotic Scar, Thickened Scar -Granulation Amt Small (1-33%) -Granulation Quality [place] -Slough/Fibrin Yes -Necrosis Amt None Present (0 %) -Necrotic Tissue Type Adherent Slough -Structure Exposed None/Limited to Skin Breakdown -Texture (Martha-wound Skin Appearance) Assessed Excoriation -Moisture (Martha-wound Skin Appearance Weeping ) -Color (Martha-wound Skin Appearance) No Abnormality Assessed -Temperature (Martha-wound Skin No Abnormality Appearance) (Pt Warm) -Tenderness on Palpation (Martha-wound Yes Skin Appearance) -Ulcer Cleansing Rinsed/ Irrigated with Saline -Foul Odor after Cleansing Yes -Anesthetic Used 4% Lidocaine Solution [Edema Assessment] -Lower Limb Edema Present Yes -Right Calf (cm) 40.4 -Right Ankle (cm) 30.8 -Left Calf (cm) 42 WC - Nurse 2 - General Ulcer CM Notes Start: 03/07/18 16:13 Freq: Status: Active Protocol: Activity Type Activity Date Activity User E-Sign Co-Sign Detail Recorded Client Recorded Date Recorded By Document 03/30/18 09:01 [id number] 03/30/18 09:03 03/30/18 09:01 Wound Center Nurse 2 [Procedure/Treatment] #13 R Med Heel -Time 09:01 -Correct Patient Yes -Correct Side, Site, Position Yes -Correct Procedure Yes -Procedure Performed Yes -Type of Procedure Debridement -Clinical Debridement Subcutaneous -Post Debridement Size (cm) - Length 1.3 -Post Debridement Size (cm) - Width 2.7 -Post Debridement Size (cm) - Depth 0.1 -Total Square Cm 3.51 -Wound/Ulcer Outcome Not Healed -Ulcer Cleansing Rinsed/ Irrigated with Saline -Foul Odor after Cleansing No -Bioengineered Tissue Yes -Type of bioengineered Tissue NU-SHIELD -Expiration Date 01/17/23 -Product Lot Number [id number] -Percent Used 100 -Saline Lot Number [id number] -Bleeding Controlled with Pressure -Treatment Response Procedure Tolerated Well #21 Right Foot-Toes w/Metatarsal Head circumfrential -Time 09:02 -Correct Patient Yes -Correct Side, Site, Position Yes -Correct Procedure Yes -Procedure Performed Yes -Type of Procedure Debridement -Clinical Debridement Subcutaneous -Post Debridement Size (cm) - Length 1.1 -Post Debridement Size (cm) - Width 0.8 -Post Debridement Size (cm) - Depth 0.1 -Total Square Cm 0.88 -Wound/Ulcer Outcome Not Healed -Ulcer Cleansing Rinsed/ Irrigated with Saline -Foul Odor after Cleansing No -Bioengineered Tissue Yes -Type of bioengineered Tissue NU-SHIELD -Expiration Date 01/17/23 -Product Lot Number [id number] -Percent Used 100 -Saline Lot Number [id number] -Bleeding Controlled with Pressure -Treatment Response Procedure Tolerated Well [See Physician Procedure note for Specifics] Pain Scale: 0-10 Numeric [Pain] -Is Patient Pain Free? Yes Musculoskeletal: No Tenderness to Palpation of Joints or Extremities, Muscle Wasting Neurological: - - Lack of epicritic sensation light touch Psych/Mental Status: Normal Affect, Appropriate Debridement Note Post-Debridement Measurements/Treatment WC - Nurse 2 - General Ulcer CM Notes Start: 03/07/18 16:13 Freq: Status: Active Protocol: Activity Type Activity Date Activity User E-Sign Co-Sign Detail Recorded Client Recorded Date Recorded By Document 03/09/18 12:49 [id number] 03/09/18 12:56 TM Document 03/16/18 08:38 [id number] 03/16/18 08:42 TM Document 03/23/18 08:33 [id number] 03/23/18 08:36 TM Document 03/30/18 09:01 [id number] 03/30/18 09:03 03/09/18 03/16/18 03/23/18 12:49 08:38 08:33 Wound Center Nurse 2 #13 R Med Heel -Time 12:55 08:38 08:34 -Correct Patient Yes Yes Yes -Correct Side, Site, Position Yes Yes Yes -Correct Procedure Yes Yes Yes -Procedure Performed Yes Yes Yes -Type of Procedure Debridement Debridement Debridement -Clinical Debridement Subcutaneous Subcutaneous Subcutaneous -Post Debridement Size (cm) - Length 2.1 2.4 2.1 -Post Debridement Size (cm) - Width 2.3 2.3 2.9 -Post Debridement Size (cm) - Depth 0.1 0.1 0.1 -Total Square Cm 4.83 5.52 6.09 -Wound/Ulcer Outcome Not Healed Not Healed Not Healed -Ulcer Cleansing Rinsed/ Rinsed/ Rinsed/ Irrigated with Irrigated with Irrigated with Saline Saline Saline -Foul Odor after Cleansing No No No -Bioengineered Tissue No Yes Yes -Type of bioengineered Tissue GLADYS-SHIELD GLADYSSHIELD -Expiration Date 02/15/23 02/24/23 -Product Lot Number [id number] -Percent Used 50 50 -Saline Lot Number [id number] -Topical Lidocaine (%) 4 4 -Bleeding Controlled with Pressure Pressure Pressure -Treatment Response Procedure Procedure Procedure Tolerated Well Tolerated Well Tolerated Well #21 Right Foot-Toes w/Metatarsal Head circumfrential -Time 12:55 08:39 08:34 -Correct Patient Yes Yes Yes -Correct Side, Site, Position Yes Yes Yes -Correct Procedure Yes Yes Yes -Procedure Performed Yes Yes Yes -Type of Procedure Debridement Debridement Debridement -Clinical Debridement Subcutaneous Subcutaneous Subcutaneous -Post Debridement Size (cm) - Length 0.7 5.1 0.6 -Post Debridement Size (cm) - Width 0.5 2.3 0.6 -Post Debridement Size (cm) - Depth 0.2 0.2 0.1 -Total Square Cm 0.35 11.73 0.36 -Wound/Ulcer Outcome Not Healed Not Healed Not Healed -Ulcer Cleansing Rinsed/ Rinsed/ Rinsed/ Irrigated with Irrigated with Irrigated with Saline Saline Saline -Foul Odor after Cleansing No No No -Bioengineered Tissue No Yes No -Type of bioengineered Tissue GLADYS-SHIELD GLADYSSHIELD -Expiration Date 02/15/23 02/24/23 -Product Lot Number [id number] -Percent Used 50 50 -Saline Lot Number [id number] -Topical Lidocaine (%) 4 4 -Bleeding Controlled with Pressure Pressure Pressure -Treatment Response Procedure Procedure Procedure Tolerated Well Tolerated Well Tolerated Well Pain Scale: 0-10 Numeric Is Patient Pain Free? Yes Yes Yes 03/30/18 09:01 Wound Center Nurse 2 #13 R Med Heel -Time 09:01 -Correct Patient Yes -Correct Side, Site, Position Yes -Correct Procedure Yes -Procedure Performed Yes -Type of Procedure Debridement -Clinical Debridement Subcutaneous -Post Debridement Size (cm) - Length 1.3 -Post Debridement Size (cm) - Width 2.7 -Post Debridement Size (cm) - Depth 0.1 -Total Square Cm 3.51 -Wound/Ulcer Outcome Not Healed -Ulcer Cleansing Rinsed/ Irrigated with Saline -Foul Odor after Cleansing No -Bioengineered Tissue Yes -Type of bioengineered Tissue NU-SHIELD -Expiration Date 01/17/23 -Product Lot Number [id number] -Percent Used 100 -Saline Lot Number [id number] -Topical Lidocaine (%) -Bleeding Controlled with Pressure -Treatment Response Procedure Tolerated Well #21 Right Foot-Toes w/Metatarsal Head circumfrential -Time 09:02 -Correct Patient Yes -Correct Side, Site, Position Yes -Correct Procedure Yes -Procedure Performed Yes -Type of Procedure Debridement -Clinical Debridement Subcutaneous -Post Debridement Size (cm) - Length 1.1 -Post Debridement Size (cm) - Width 0.8 -Post Debridement Size (cm) - Depth 0.1 -Total Square Cm 0.88 -Wound/Ulcer Outcome Not Healed -Ulcer Cleansing Rinsed/ Irrigated with Saline -Foul Odor after Cleansing No -Bioengineered Tissue Yes -Type of bioengineered Tissue NU-SHIELD -Expiration Date 01/17/23 -Product Lot Number [id number] -Percent Used 100 -Saline Lot Number [id number] -Topical Lidocaine (%) -Bleeding Controlled with Pressure -Treatment Response Procedure Tolerated Well Pain Scale: 0-10 Numeric Is Patient Pain Free? Yes Wound debrided: heel Laterality: Right Wound Grade/Stage: grade 3 Type of Debridement: Excisional debridement Anesthesia Used: 4% Lidocaine Solution Depth: in the subcutaneous layer Percentage of wound debrided: 100 Instrument Used: #15 blade Tissue Removed: fibrous, devitalized subcutaneous, biofilm, slough Severity: Fat Layer Exposed Amount of bleeding with debridement: Mild Bleeding Controlled with: Pressure Patient tolerated procedure well - Additional Wound Wound debrided: toe Laterality: Right - g Wound Grade/Stage: grade 1 Type of Debridement: Excisional debridement Anesthesia Used: 4% Lidocaine Solution Depth: in the subcutaneous layer Percentage of wound debrided: 100 Instrument Used: #15 blade Tissue Removed: fibrous, devitalized subcutaneous, biofilm, slough Severity: Fat Layer Exposed Amount of bleeding with debridement: Mild Bleeding Controlled with: Pressure Patient tolerated procedure: Patient tolerated procedure well Assessment/Plan Active Problems Ulcer of right lower extremity with fat layer exposed (Chronic) Ulcer of left lower extremity, limited to breakdown of skin (Chronic) Non-pressure chronic ulcer of other part of right foot with fat layer exposed (Chronic) Morbid obesity (Chronic) Venous stasis dermatitis (Chronic) Type 2 diabetes mellitus with diabetic polyneuropathy (Chronic) Delayed wound healing (Chronic) Malnutrition (Chronic) Assessment: ulcer right forefoot (digit 2). right heel ulcer muscle involved and exposed fascia without infection noted today (previous grade 3); s/p surgical debridement and application of advance wound care products (amniofil and epicord). Left below-knee amputation sub-hemorrhagic tissue with continued weeping noted; no infection. Lymphedema. Ulcer left stump site with skin layer exposed, no infection. Chronic lower extremity edema and venous insufficiency. Morbid obesity. Type 2 diabetes uncontrolled with peripheral neuropathy. CKD. Hypertension. Left below-knee amputation. Malnutrition. Delayed wound healing. Nonadherence to treatment plan Plan: I reviewed and discussed his case debridement done as documented above in the clinical panel, procedure was well tolerated. Additional advanced product application prior authorization was approved and nushield was applied today according to standard protocol. This is medically necessary and will facilitate a more timely healing course. Verbal consent was obtained. This was secured with steri strips and a wound veil. To keep this intact until follow up next week. Continue compression and elevate lower extreity when sitting and in bed. Optimal blood sugar contol. Continue protein suppplements and increased protein in diet. To continue hyperbaric oxygen therapy as scheduled on complaint basis. He did see Dr. Valdes today who recommended an additional 40 sessions of hyperbaric oxygen therapy; he will be scheduled accordingly. I encouraged continued use. His left limb is more inflamed today and I recommend compliance with elevation and compression use; this is imperative for healing. To improve compliance with compression pumps. I advised him to at least get a second session even if it is reduced in time each day. He reports he is doing this and I recommend he continues. Follow up in 1 week with at the wound healing center or call sooner if he has any questions or concerns.
--- NOTE | 2018-03-30 11:11 | PCM.HBO.PN ---
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 Progress: The patient appears to be tolerating hyperbaric oxygen therapy well. This is his 2nd treatment course and his 37th session of hyperbaric oxygen therapy. Ulcers have shown significant improvement with HBO therapy and are now about half the size prior to HBO. Tolerance of hyperbaric oxygen therapy: Hyperbaric oxygen therapy was administered as per the facility's protocol. The patient tolerated hyperbaric oxygen therapy well, without complaints or complications. Upon emergence from the hyperbaric chamber, patient's vital signs remained stable. Patient was discharged in good condition. 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) Delayed wound healing (Chronic) Malnutrition (Chronic) Venous insufficiency (Chronic) Lymphedema (Chronic) Edema of both legs (Chronic) GERD (gastroesophageal reflux disease) (Chronic) Hypertension (Chronic) Hyperlipemia (Chronic) Morbid obesity with BMI of 45.0-49.9, adult (Chronic) Hyperlipidemia associated with type 2 diabetes mellitus (Chronic) 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 Allergies/Adverse Reactions: Allergies bee venom protein (honey bee) Allergy (Verified 12/13/17 09:30) Swelling metronidazole [From Flagyl] Allergy (Verified 12/13/17 09:30) Itching Home Medications: Ambulatory Orders Medication Instructions Recorded Atorvastatin Calcium [Lipitor] 10 mg PO QHS 01/08/17 Brimonidine Tartrate 0.2% 1 drop EACH EYE BID 01/08/17 [Brimonidine 0.2% 5Ml Bottle] Ergocalciferol [Vitamin D] 50,000 unit PO FR 01/08/17 Gabapentin [Neurontin] 1,600 mg PO QHS 01/08/17 Gabapentin [Neurontin] 600 mg PO DAILY 01/08/17 Insulin U-500 [Humulin R U-500 105 units SC DINNER 01/08/17 ([facility])] Insulin U-500 [Humulin R U-500 105 units SC LUNCH 01/08/17 ([facility])] Insulin U-500 [Humulin R U-500 160 units SC BREAKFAST 01/08/17 ([facility])] Latanoprost 0.005% [Xalatan 1 drop EACH EYE QHS 01/08/17 Opthalmic] Losartan Potassium [Cozaar] 50 mg PO DAILY 01/08/17 Nebivolol HCl [Bystolic (Beta 10 mg PO DAILY 01/08/17 Akira)] Omeprazole [Prilosec] 40 mg PO DAILY 01/08/17 Acetaminophen [Tylenol Tablet] 650 mg PO Q6H PRN PRN tablet 09/07/17 Clopidogrel Bisulfate [Plavix] 75 mg PO DAILY 09/07/17 Menthol/Lanolin/Calamine/Znox 1 applic TOPICAL 0600,2200 tube 09/21/17 [Calmoseptine Ointment] Nutritional Supplement [Madhu - 1 packet PO BIDCM #60 packet 09/21/17 [place]OR] Nystatin Powder [Mycostatin Powder] 1 applic TOPICAL 0600,2200 bottle 09/21/17 Ferrous Sulfate [Iron] 325 mg PO BID 10/14/17 Clindamycin HCl 300 mg PO [id number] #40 cap 12/13/17 Maternal Family History: Diabetes Paternal Family History: Hypertension Sibling Family History: Diabetes Smoking Status: Former smoker Physical Exam Vital Signs Temp Pulse Resp BP 97.1 F L 87 16 114/55 L 03/30/18 08:22 03/30/18 08:22 03/30/18 08:22 03/30/18 08:22 General: Alert, Oriented x3, Cooperative, No apparent distress HEENT: Atraumatic Lungs: Normal air movement Cardiovascular: Regular rate Psych/Mental Status: Normal Affect Assessment/Plan Active Problems Ulcer of right lower extremity with fat layer exposed (Chronic) Ulcer of left lower extremity, limited to breakdown of skin (Chronic) Non-pressure chronic ulcer of other part of right foot with fat layer exposed (Chronic) Morbid obesity (Chronic) Venous stasis dermatitis (Chronic) Type 2 diabetes mellitus with diabetic polyneuropathy (Chronic) Delayed wound healing (Chronic) Malnutrition (Chronic) The patient appears to be tolerating hyperbaric oxygen therapy well, which will be continued as per the patient's medical plan. He has done remarkably well so far with HBO however, still has room for improvement. Will benefit from another 40 sessions of Hyperbaric Oxygen therapy. He continues to follow up closely with his ENT and has had no other problems with his sessions. Will continue otherwise per his medical plan.
--- NOTE | 2018-03-30 11:16 | HBO.PN.PCM_ITS ---
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 Progress: The patient appears to be tolerating hyperbaric oxygen therapy well. This is his 2nd treatment course and his 37th session of hyperbaric oxygen therapy. Ulcers have shown significant improvement with HBO therapy and are now about half the size prior to HBO. Tolerance of hyperbaric oxygen therapy: Hyperbaric oxygen therapy was administered as per the facility's protocol. The patient tolerated hyperbaric oxygen therapy well, without complaints or complications. Upon emergence from the hyperbaric chamber, patient's vital signs remained stable. Patient was discharged in good condition. 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) Delayed wound healing (Chronic) Malnutrition (Chronic) Venous insufficiency (Chronic) Lymphedema (Chronic) Edema of both legs (Chronic) GERD (gastroesophageal reflux disease) (Chronic) Hypertension (Chronic) Hyperlipemia (Chronic) Morbid obesity with BMI of 45.0-49.9, adult (Chronic) Hyperlipidemia associated with type 2 diabetes mellitus (Chronic) 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 Allergies/Adverse Reactions: Allergies bee venom protein (honey bee) Allergy (Verified 12/13/17 09:30) Swelling metronidazole [From Flagyl] Allergy (Verified 12/13/17 09:30) Itching Home Medications: Ambulatory Orders Medication Instructions Recorded Atorvastatin Calcium [Lipitor] 10 mg PO QHS 01/08/17 Brimonidine Tartrate 0.2% 1 drop EACH EYE BID 01/08/17 [Brimonidine 0.2% 5Ml Bottle] Ergocalciferol [Vitamin D] 50,000 unit PO FR 01/08/17 Gabapentin [Neurontin] 1,600 mg PO QHS 01/08/17 Gabapentin [Neurontin] 600 mg PO DAILY 01/08/17 Insulin U-500 [Humulin R U-500 105 units SC DINNER 01/08/17 ([facility])] Insulin U-500 [Humulin R U-500 105 units SC LUNCH 01/08/17 ([facility])] Insulin U-500 [Humulin R U-500 160 units SC BREAKFAST 01/08/17 ([facility])] Latanoprost 0.005% [Xalatan 1 drop EACH EYE QHS 01/08/17 Opthalmic] Losartan Potassium [Cozaar] 50 mg PO DAILY 01/08/17 Nebivolol HCl [Bystolic (Beta 10 mg PO DAILY 01/08/17 Akira)] Omeprazole [Prilosec] 40 mg PO DAILY 01/08/17 Acetaminophen [Tylenol Tablet] 650 mg PO Q6H PRN PRN tablet 09/07/17 Clopidogrel Bisulfate [Plavix] 75 mg PO DAILY 09/07/17 Menthol/Lanolin/Calamine/Znox 1 applic TOPICAL 0600,2200 tube 09/21/17 [Calmoseptine Ointment] Nutritional Supplement [Madhu - 1 packet PO BIDCM #60 packet 09/21/17 [place] FLAVOR] Nystatin Powder [Mycostatin Powder] 1 applic TOPICAL 0600,2200 bottle 09/21/17 Ferrous Sulfate [Iron] 325 mg PO BID 10/14/17 Clindamycin HCl 300 mg PO [id number] #40 cap 12/13/17 Maternal Family History: Diabetes Paternal Family History: Hypertension Sibling Family History: Diabetes Smoking Status: Former smoker Physical Exam Vital Signs Temp Pulse Resp BP 97.1 F L 87 16 114/55 L 03/30/18 08:22 03/30/18 08:22 03/30/18 08:22 03/30/18 08:22 General: Alert, Oriented x3, Cooperative, No apparent distress HEENT: Atraumatic Lungs: Normal air movement Cardiovascular: Regular rate Psych/Mental Status: Normal Affect Assessment/Plan Active Problems Ulcer of right lower extremity with fat layer exposed (Chronic) Ulcer of left lower extremity, limited to breakdown of skin (Chronic) Non-pressure chronic ulcer of other part of right foot with fat layer exposed (Chronic) Morbid obesity (Chronic) Venous stasis dermatitis (Chronic) Type 2 diabetes mellitus with diabetic polyneuropathy (Chronic) Delayed wound healing (Chronic) Malnutrition (Chronic) The patient appears to be tolerating hyperbaric oxygen therapy well, which will be continued as per the patient's medical plan. He has done remarkably well so far with HBO however, still has room for improvement. Will benefit from another 40 sessions of Hyperbaric Oxygen therapy. He continues to follow up closely with his ENT and has had no other problems with his sessions. Will continue otherwise per his medical plan.
[2018-03-30 11:25] LABS: Bedside Glucose 88 mg/dL (70-110)
[2018-03-30 16:39] LABS: Absolute Lymphocyte Count 1.67 X10^3/ul (0.83-4.51); Absolute Neutrophil Count 5.3 X10^3/uL (2.0-7.7); Basophil# 0.02 X10^3/uL; Basophil% 0.2 % (0-1); Eosinophil# 0.22 X10^3/uL; Eosinophils% 2.7 % (0-5); Hematocrit 34.4 % (40-54); Hemoglobin 10.4 g/dl (13.0-16.5); Lymphocyte # 1.67 X10^3/ul (4.0); Lymphocyte % 20.5 % (19-41); Mean Corp Hgb Conc 30.2 g/gl (32-36); Mean Corpuscular Hgb 26.3 pg (27.0-32.0); Mean Corpuscular Volume 87.1 fL (80-94); Mean Platelet Vol. 11.1 fl (6.2-12.0); Monocyte# 0.77 X10^3/uL; Monocyte% 9.5 % (0-10); Neutrophil # 5.32 X10^3/uL (2.7-7.7); Neutrophil % 65.5 % (47-70); Platelet Count 180 K/mm3 (150-450); RBC Distribution Width CV 18.4 % (11.6-14.6); RBC Distribution Width SD 57.4 fl (35.1-43.9); Red Blood Count 3.95 M/mm3 (4.6-6.2); White Blood Count 8.1 K/mm3 (4.4-11.0)
[2018-03-30 16:40] LABS: POSITIVE COUNT NO; POSITIVE DIFFERENTIAL NO; POSITIVE MORPHOLOGY NO
[2018-03-30 17:09] LABS: ALB/GLOB Ratio 0.6 RATIO (0.9-2.4); AST(SGOT) 19 U/L (15-37); Alanine Aminotransfer ALT/SGPT 28 U/L (16-61); Albumin, Serum 2.8 g/dL (3.2-5.0); Alkaline Phosphatase 78 U/L (45-117); Anion Gap 8 (5-15); BUN 40 mg/dL (7-18); BUN/Creat Ratio 21.9 RATIO (10-20); Calcium,Total 8.9 mg/dL (8.5-10.1); Chloride 107 mmol/L (98-107); Creatinine, Serum 1.83 mg/dL (0.70-1.30); EST Glomerular Filtration Rate 40 mL/min (>60); Est Glom Filt Rate - Afr Amer 49 mL/min (>60); Globulin 4.7 g/dL (2.2-4.2); Glucose 56 mg/dL (74-106); Potassium 4.4 mmol/L (3.5-5.1); Protein, Total 7.5 g/dL (6.4-8.2); Sodium Level 143 mmol/L (136-145)
[2018-03-31 09:40] LABS: Bedside Glucose 143 mg/dL (70-110)
[2018-03-31 09:58] VITALS: BP 127/75; BP 128/66; PULSE 77; PULSE 83; RESP 16; TEMP 36; TEMP 36.2
--- NOTE | 2018-03-31 11:08 | HBO.PN.PCM_ITS ---
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 Progress: The patient appears to be tolerating hyperbaric oxygen therapy well. This is his 2nd treatment course and his 38th session of hyperbaric oxygen theray Tolerance of hyperbaric oxygen therapy: Hyperbaric oxygen therapy was administered as per the facility's protocol. The patient tolerated hyperbaric oxygen therapy well, without complaints or complications. Upon emergence from the hyperbaric chamber, patient's vital signs remained stable. Patient was discharged in good condition. 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) Delayed wound healing (Chronic) Malnutrition (Chronic) Venous insufficiency (Chronic) Lymphedema (Chronic) Edema of both legs (Chronic) GERD (gastroesophageal reflux disease) (Chronic) Hypertension (Chronic) Hyperlipemia (Chronic) Morbid obesity with BMI of 45.0-49.9, adult (Chronic) Hyperlipidemia associated with type 2 diabetes mellitus (Chronic) 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 Allergies/Adverse Reactions: Allergies bee venom protein (honey bee) Allergy (Verified 12/13/17 09:30) Swelling metronidazole [From Flagyl] Allergy (Verified 12/13/17 09:30) Itching Home Medications: Ambulatory Orders Medication Instructions Recorded Atorvastatin Calcium [Lipitor] 10 mg PO QHS 01/08/17 Brimonidine Tartrate 0.2% 1 drop EACH EYE BID 01/08/17 [Brimonidine 0.2% 5Ml Bottle] Ergocalciferol [Vitamin D] 50,000 unit PO FR 01/08/17 Gabapentin [Neurontin] 1,600 mg PO QHS 01/08/17 Gabapentin [Neurontin] 600 mg PO DAILY 01/08/17 Insulin U-500 [Humulin R U-500 105 units SC DINNER 01/08/17 ([facility])] Insulin U-500 [Humulin R U-500 105 units SC LUNCH 01/08/17 ([facility])] Insulin U-500 [Humulin R U-500 160 units SC BREAKFAST 01/08/17 ([facility])] Latanoprost 0.005% [Xalatan 1 drop EACH EYE QHS 01/08/17 Opthalmic] Losartan Potassium [Cozaar] 50 mg PO DAILY 01/08/17 Nebivolol HCl [Bystolic (Beta 10 mg PO DAILY 01/08/17 Akira)] Omeprazole [Prilosec] 40 mg PO DAILY 01/08/17 Acetaminophen [Tylenol Tablet] 650 mg PO Q6H PRN PRN tablet 09/07/17 Clopidogrel Bisulfate [Plavix] 75 mg PO DAILY 09/07/17 Menthol/Lanolin/Calamine/Znox 1 applic TOPICAL 0600,2200 tube 09/21/17 [Calmoseptine Ointment] Nutritional Supplement [Madhu - 1 packet PO BIDCM #60 packet 09/21/17 [place] FLAVOR] Nystatin Powder [Mycostatin Powder] 1 applic TOPICAL 0600,2200 bottle 09/21/17 Ferrous Sulfate [Iron] 325 mg PO BID 10/14/17 Clindamycin HCl 300 mg PO [id number] #40 cap 12/13/17 Maternal Family History: Diabetes Paternal Family History: Hypertension Sibling Family History: Diabetes Smoking Status: Former smoker Physical Exam Vital Signs Temp Pulse Resp BP 97.1 F L 83 16 128/66 H 03/31/18 09:58 10/25/18 09:58 03/31/18 09:58 03/31/18 09:58 General: Alert, Oriented x3, Cooperative, No apparent distress HEENT: Atraumatic Lungs: Normal air movement Psych/Mental Status: Normal Affect Assessment/Plan Active Problems Ulcer of right lower extremity with fat layer exposed (Chronic) Ulcer of left lower extremity, limited to breakdown of skin (Chronic) Non-pressure chronic ulcer of other part of right foot with fat layer exposed (Chronic) Morbid obesity (Chronic) Venous stasis dermatitis (Chronic) Type 2 diabetes mellitus with diabetic polyneuropathy (Chronic) Delayed wound healing (Chronic) Malnutrition (Chronic) The patient appears to be tolerating hyperbaric oxygen therapy well, which will be continued as per the patient's medical plan.
[2018-03-31 12:06] LABS: Bedside Glucose 82 mg/dL (70-110)
[2018-03-31 12:26] LABS: Bedside Glucose 142 mg/dL (70-110)
[2018-04-01 09:46] LABS: Bedside Glucose 254 mg/dL (70-110)
--- NOTE | 2018-04-01 11:15 | HBO.PN.PCM_ITS ---
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 Progress: The patient appears to be tolerating hyperbaric oxygen therapy well. This is his 2nd treatment course and his 39th session of hyperbaric oxygen theray Tolerance of hyperbaric oxygen therapy: Hyperbaric oxygen therapy was administered as per the facility's protocol. The patient tolerated hyperbaric oxygen therapy well, without complaints or complications. Upon emergence from the hyperbaric chamber, patient's vital signs remained stable. Patient was discharged in good condition. 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) Delayed wound healing (Chronic) Malnutrition (Chronic) Venous insufficiency (Chronic) Lymphedema (Chronic) Edema of both legs (Chronic) GERD (gastroesophageal reflux disease) (Chronic) Hypertension (Chronic) Hyperlipemia (Chronic) Morbid obesity with BMI of 45.0-49.9, adult (Chronic) Hyperlipidemia associated with type 2 diabetes mellitus (Chronic) 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 Allergies/Adverse Reactions: Allergies bee venom protein (honey bee) Allergy (Verified 12/13/17 09:30) Swelling metronidazole [From Flagyl] Allergy (Verified 12/13/17 09:30) Itching Home Medications: Ambulatory Orders Medication Instructions Recorded Atorvastatin Calcium [Lipitor] 10 mg PO QHS 01/08/17 Brimonidine Tartrate 0.2% 1 drop EACH EYE BID 01/08/17 [Brimonidine 0.2% 5Ml Bottle] Ergocalciferol [Vitamin D] 50,000 unit PO FR 01/08/17 Gabapentin [Neurontin] 1,600 mg PO QHS 01/08/17 Gabapentin [Neurontin] 600 mg PO DAILY 01/08/17 Insulin U-500 [Humulin R U-500 105 units SC DINNER 01/08/17 ([facility])] Insulin U-500 [Humulin R U-500 105 units SC LUNCH 01/08/17 ([facility])] Insulin U-500 [Humulin R U-500 160 units SC BREAKFAST 01/08/17 ([facility])] Latanoprost 0.005% [Xalatan 1 drop EACH EYE QHS 01/08/17 Opthalmic] Losartan Potassium [Cozaar] 50 mg PO DAILY 01/08/17 Nebivolol HCl [Bystolic (Beta 10 mg PO DAILY 01/08/17 Akira)] Omeprazole [Prilosec] 40 mg PO DAILY 01/08/17 Acetaminophen [Tylenol Tablet] 650 mg PO Q6H PRN PRN tablet 09/07/17 Clopidogrel Bisulfate [Plavix] 75 mg PO DAILY 09/07/17 Menthol/Lanolin/Calamine/Znox 1 applic TOPICAL 0600,2200 tube 09/21/17 [Calmoseptine Ointment] Nutritional Supplement [Madhu - 1 packet PO BIDCM #60 packet 09/21/17 [place] [facility]LAVOR] Nystatin Powder [Mycostatin Powder] 1 applic TOPICAL 0600,2200 bottle 09/21/17 Ferrous Sulfate [Iron] 325 mg PO BID 10/14/17 Clindamycin HCl 300 mg PO [id number] #40 cap 12/13/17 Maternal Family History: Diabetes Paternal Family History: Hypertension Sibling Family History: Diabetes Smoking Status: Former smoker Physical Exam Vital Signs Temp Pulse Resp BP 97.1 F L 83 16 128/66 H 03/31/18 09:58 10/25/18 09:58 03/31/18 09:58 03/31/18 09:58 Assessment/Plan Active Problems Ulcer of right lower extremity with fat layer exposed (Chronic) Ulcer of left lower extremity, limited to breakdown of skin (Chronic) Non-pressure chronic ulcer of other part of right foot with fat layer exposed (Chronic) Morbid obesity (Chronic) Venous stasis dermatitis (Chronic) Type 2 diabetes mellitus with diabetic polyneuropathy (Chronic) Delayed wound healing (Chronic) Malnutrition (Chronic) The patient appears to be tolerating hyperbaric oxygen therapy well, which will be continued as per the patient's medical plan.
[2018-04-01 11:19] VITALS: BP 124/70; BP 128/64; PULSE 78; PULSE 84; RESP 16; RESP 18; TEMP 35.8; TEMP 36.5
[2018-04-01 12:10] LABS: Bedside Glucose 200 mg/dL (70-110)
[2018-04-04 10:20] LABS: Bedside Glucose 118 mg/dL (70-110)
[2018-04-04 10:20] LABS: Bedside Glucose 116 mg/dL (70-110)
[2018-04-04 13:05] LABS: Bedside Glucose 136 mg/dL (70-110)
[2018-04-04 14:32] VITALS: BP 117/70; BP 135/78; PULSE 86; PULSE 91; RESP 16; RESP 20; TEMP 36.3; TEMP 36.5
--- NOTE | 2018-04-04 22:32 | HBO.PN.PCM_ITS ---
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 Progress: The patient appears to be tolerating hyperbaric oxygen therapy well. This is his 2nd treatment course and his 40th session of hyperbaric oxygen therapy. Tolerance of hyperbaric oxygen therapy: Hyperbaric oxygen therapy was administered as per the facility's protocol. The patient tolerated hyperbaric oxygen therapy well, without complaints or complications. Upon emergence from the hyperbaric chamber, patient's vital signs remained stable. Patient was discharged in good condition. His blood glucose was 118 before the treatment. He was given a snack and the repeat glucose was 116. He then proceeded with his HBO treatment. His blood glucose was 136 after the treatment. 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) Delayed wound healing (Chronic) Malnutrition (Chronic) Venous insufficiency (Chronic) Lymphedema (Chronic) Edema of both legs (Chronic) GERD (gastroesophageal reflux disease) (Chronic) Hypertension (Chronic) Hyperlipemia (Chronic) Morbid obesity with BMI of 45.0-49.9, adult (Chronic) Hyperlipidemia associated with type 2 diabetes mellitus (Chronic) 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 Allergies/Adverse Reactions: Allergies bee venom protein (honey bee) Allergy (Verified 12/13/17 09:30) Swelling metronidazole [From Flagyl] Allergy (Verified 12/13/17 09:30) Itching Home Medications: Ambulatory Orders Medication Instructions Recorded Atorvastatin Calcium [Lipitor] 10 mg PO QHS 01/08/17 Brimonidine Tartrate 0.2% 1 drop EACH EYE BID 01/08/17 [Brimonidine 0.2% 5Ml Bottle] Ergocalciferol [Vitamin D] 50,000 unit PO FR 01/08/17 Gabapentin [Neurontin] 1,600 mg PO QHS 01/08/17 Gabapentin [Neurontin] 600 mg PO DAILY 01/08/17 Insulin U-500 [Humulin R U-500 105 units SC DINNER 01/08/17 ([facility])] Insulin U-500 [Humulin R U-500 105 units SC LUNCH 01/08/17 ([facility])] Insulin U-500 [Humulin R U-500 160 units SC BREAKFAST 01/08/17 ([facility])] Latanoprost 0.005% [Xalatan 1 drop EACH EYE QHS 01/08/17 Opthalmic] Losartan Potassium [Cozaar] 50 mg PO DAILY 01/08/17 Nebivolol HCl [Bystolic (Beta 10 mg PO DAILY 01/08/17 Akira)] Omeprazole [Prilosec] 40 mg PO DAILY 01/08/17 Acetaminophen [Tylenol Tablet] 650 mg PO Q6H PRN PRN tablet 09/07/17 Clopidogrel Bisulfate [Plavix] 75 mg PO DAILY 09/07/17 Menthol/Lanolin/Calamine/Znox 1 applic TOPICAL 0600,2200 tube 09/21/17 [Calmoseptine Ointment] Nutritional Supplement [Madhu - 1 packet PO BIDCM #60 packet 09/21/17 [place]LAVOR] Nystatin Powder [Mycostatin Powder] 1 applic TOPICAL 0600,2200 bottle 09/21/17 Ferrous Sulfate [Iron] 325 mg PO BID 10/14/17 Clindamycin HCl 300 mg PO [id number] #40 cap 12/13/17 Maternal Family History: Diabetes Paternal Family History: Hypertension Sibling Family History: Diabetes Smoking Status: Former smoker Physical Exam Vital Signs Temp Pulse Resp BP 97.4 F L 91 16 117/70 04/04/18 14:32 04/04/18 14:32 04/04/18 14:32 04/04/18 14:32
[2018-04-05 09:36] LABS: Bedside Glucose 140 mg/dL (70-110)
[2018-04-05 11:51] LABS: Bedside Glucose 103 mg/dL (70-110)
[2018-04-05 12:22] VITALS: BP 117/70; BP 140/64; PULSE 90; PULSE 93; RESP 146; RESP 18; TEMP 36.6; TEMP 36.9
--- NOTE | 2018-04-05 13:33 | HBO.PN.PCM_ITS ---
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 Progress: The patient appears to be tolerating hyperbaric oxygen therapy well. This is his 2nd treatment course and his 41st session of hyperbaric oxygen therapy. Tolerance of hyperbaric oxygen therapy: Hyperbaric oxygen therapy was administered as per the facility's protocol. The patient tolerated hyperbaric oxygen therapy well, without complaints or complications. Upon emergence from the hyperbaric chamber, patient's vital signs remained stable. Patient was discharged in good condition. 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) Delayed wound healing (Chronic) Malnutrition (Chronic) Venous insufficiency (Chronic) Lymphedema (Chronic) Edema of both legs (Chronic) GERD (gastroesophageal reflux disease) (Chronic) Hypertension (Chronic) Hyperlipemia (Chronic) Morbid obesity with BMI of 45.0-49.9, adult (Chronic) Hyperlipidemia associated with type 2 diabetes mellitus (Chronic) 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 Allergies/Adverse Reactions: Allergies bee venom protein (honey bee) Allergy (Verified 12/13/17 09:30) Swelling metronidazole [From Flagyl] Allergy (Verified 12/13/17 09:30) Itching Home Medications: Ambulatory Orders Medication Instructions Recorded Atorvastatin Calcium [Lipitor] 10 mg PO QHS 01/08/17 Brimonidine Tartrate 0.2% 1 drop EACH EYE BID 01/08/17 [Brimonidine 0.2% 5Ml Bottle] Ergocalciferol [Vitamin D] 50,000 unit PO FR 01/08/17 Gabapentin [Neurontin] 1,600 mg PO QHS 01/08/17 Gabapentin [Neurontin] 600 mg PO DAILY 01/08/17 Insulin U-500 [Humulin R U-500 105 units SC DINNER 01/08/17 ([facility])] Insulin U-500 [Humulin R U-500 105 units SC LUNCH 01/08/17 ([facility])] Insulin U-500 [Humulin R U-500 160 units SC BREAKFAST 01/08/17 ([facility])] Latanoprost 0.005% [Xalatan 1 drop EACH EYE QHS 01/08/17 Opthalmic] Losartan Potassium [Cozaar] 50 mg PO DAILY 01/08/17 Nebivolol HCl [Bystolic (Beta 10 mg PO DAILY 01/08/17 Akira)] Omeprazole [Prilosec] 40 mg PO DAILY 01/08/17 Acetaminophen [Tylenol Tablet] 650 mg PO Q6H PRN PRN tablet 09/07/17 Clopidogrel Bisulfate [Plavix] 75 mg PO DAILY 09/07/17 Menthol/Lanolin/Calamine/Znox 1 applic TOPICAL 0600,2200 tube 09/21/17 [Calmoseptine Ointment] Nutritional Supplement [Madhu - 1 packet PO BIDCM #60 packet 09/21/17 ORANGE FLAVOR] Nystatin Powder [Mycostatin Powder] 1 applic TOPICAL 0600,2200 bottle 09/21/17 Ferrous Sulfate [Iron] 325 mg PO BID 10/14/17 Clindamycin HCl 300 mg PO [id number] #40 cap 12/13/17 Maternal Family History: Diabetes Paternal Family History: Hypertension Sibling Family History: Diabetes Smoking Status: Former smoker Physical Exam Vital Signs Temp Pulse Resp BP 98.5 F 93 18 140/64 H 04/05/18 12:22 04/05/18 12:22 04/05/18 12:22 04/05/18 12:22 General: Alert, Oriented x3, Cooperative, No apparent distress, Well developed, Well nourished HEENT: Atraumatic, PERRLA, EOMI, Normocephalic Lungs: Normal air movement Psych/Mental Status: Normal Affect, Appropriate, Alert and oriented to time, place, person, mood and affect Assessment/Plan Active Problems Ulcer of right lower extremity with fat layer exposed (Chronic) Ulcer of left lower extremity, limited to breakdown of skin (Chronic) Non-pressure chronic ulcer of other part of right foot with fat layer exposed (Chronic) Morbid obesity (Chronic) Venous stasis dermatitis (Chronic) Type 2 diabetes mellitus with diabetic polyneuropathy (Chronic) Delayed wound healing (Chronic) Malnutrition (Chronic) The patient appears to be tolerating hyperbaric oxygen therapy well, which will continue as per the patient's medical plan.
[2018-04-06 08:16] VITALS: BP 122/61; PULSE 91; RESP 18; TEMP 35.2
--- NOTE | 2018-04-06 08:44 | PN.PCM_ITS ---
(1) Non-pressure chronic ulcer of other part of right foot with fat layer exposed Status: Chronic Current Visit: Yes Code(s): L97.512 - Non-pressure chronic ulcer of other part of right foot with fat layer exposed (2) Ulcer of right lower extremity with fat layer exposed Status: Chronic Current Visit: Yes Code(s): L97.912 - Non-pressure chronic ulcer of unspecified part of right lower leg with fat layer exposed (3) Ulcer of left lower extremity, limited to breakdown of skin Status: Chronic Current Visit: Yes Code(s): L97.921 - Non-pressure chronic ulcer of unspecified part of left lower leg limited to breakdown of skin (4) Morbid obesity Status: Chronic Current Visit: Yes Code(s): E66.01 - Morbid (severe) obesity due to excess calories (5) Venous stasis dermatitis Status: Chronic Current Visit: Yes Code(s): I87.2 - Venous insufficiency (chronic) (peripheral) (6) Type 2 diabetes mellitus with diabetic polyneuropathy Status: Chronic Current Visit: Yes Code(s): E11.42 - Type 2 diabetes mellitus with diabetic polyneuropathy (7) Delayed wound healing Status: Chronic Current Visit: Yes Code(s): T14.8 - Other injury of unspecified body region (8) Malnutrition Status: Chronic Current Visit: Yes Code(s): E46 - Unspecified protein- calorie malnutrition Type of Wound Date of Service: 04/06/18 Chief Complaint: 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 History of Wound: 57-year-old white male returns to clinic for follow-up of bilateral leg ulcers and right foot ulcers. He denies fever, chill, nausea, vomiting, loss of appetite. He had multiple advanced wound care product applications. He resume hyperbaric oxygen therapy sessions and decrease in activity this past week. He presents in a wheelchair today. He denies odors or redness. He has demonstrated significant delays in healing. Progress of Wound: Stable - Physical Exam Vital Signs Temp Pulse Resp BP 95.3 F L 91 18 122/61 H 04/06/18 08:16 04/06/18 08:16 04/06/18 08:16 04/06/18 08:16 General: Alert, Oriented x3, Cooperative Extremities: No cyanosis, Capillary Refill Less than 3 Seconds, No Calf Tenderness - Negative Harry and Badillo right, Diminished Peripheral Pulses, Edema - Decreased compared to last week, - - Left below-knee amputation with swelling to the stump site Skin: Ulcer/ Wound - No purulence, erythema, streaking, odor, infection. No deep tissue exposed noted today. There is scant odor noted to the toe region and there is some interdigital maceration. The heel ulcer site appears healthy with granulation tissue. The peripheral skin is hairless and atrophic. The left below-knee amputation stump site skin has increased sub-hemorrhagic tissue exposed and weeping Wound Measurements and Assessment WC - Nurse 1 - General Ulcer Measurement Start: 03/07/18 16:13 Freq: Status: Active Protocol: Activity Type Activity Date Activity User E-Sign Co-Sign Detail Recorded Client Recorded Date Recorded By Document 04/06/18 08:16 ANUP [id number] 04/06/18 08:18 ANUP 04/06/18 08:16 Wound Center Nurse 1 [Ulcer Assessment] #13 R Med Heel -Combined with other wound No -Current Size (cm) - Length 1.1 -Current Size (cm) - Width 1.8 -Current Size (cm) - Depth 0.1 -Total Square Cm 1.98 -Photo Taken No -Epithelialization Small 1-33% -Tunneling No -Undermining/Tunneling No -Circular Undermining No -Exudate Amt Small (1-33%) -Exudate Type Serosanguineous -Wound Margin Flat & Intact -Granulation Amt Medium (34-66%) -Granulation Quality Paradis -Slough/Fibrin Yes -Necrosis Amt Small (1-33%) -Necrotic Tissue Type Adherent Slough -Structure Exposed N/A -Texture (Martha-wound Skin Appearance) Assessed Localized Edema -Moisture (Martha-wound Skin Appearance Assessed ) Dry/Scaly -Color (Martha-wound Skin Appearance) Assessed -Temperature (Martha-wound Skin No Abnormality Appearance) (Pt Warm) -Tenderness on Palpation (Martha-wound No Skin Appearance) -Ulcer Cleansing Wound Cleanser -Foul Odor after Cleansing No -Anesthetic Used 5% Lidocaine Gel #21 Right Foot-Toes w/Metatarsal Head circumfrential -Combined with other wound No -Current Size (cm) - Length 4.0 -Current Size (cm) - Width 1.0 -Current Size (cm) - Depth 0.2 -Total Square Cm 4.00 -Photo Taken No -Epithelialization Small 1-33% -Tunneling No -Undermining/Tunneling No -Circular Undermining No -Exudate Amt Medium (34-66%) -Exudate Type Serosanguineous -Wound Margin Flat & Intact -Granulation Amt Medium (34-66%) -Granulation Quality Red -Slough/Fibrin Yes -Necrosis Amt Small (1-33%) -Necrotic Tissue Type Adherent Slough -Structure Exposed N/A -Texture (Martha-wound Skin Appearance) Assessed Excoriation Localized Edema -Moisture (Martha-wound Skin Appearance Assessed ) Dry/Scaly -Color (Martha-wound Skin Appearance) Assessed -Temperature (Martha-wound Skin No Abnormality Appearance) (Pt Warm) -Tenderness on Palpation (Martha-wound No Skin Appearance) -Ulcer Cleansing Wound Cleanser -Foul Odor after Cleansing No -Anesthetic Used 5% Lidocaine Gel [Edema Assessment] -Lower Limb Edema Present Yes -Right Calf (cm) 40.7 -Right Ankle (cm) 30.8 -Left Calf (cm) 41.7 WC - Nurse 2 - General Ulcer CM Notes Start: 03/07/18 16:13 Freq: Status: Active Protocol: Activity Type Activity Date Activity User E-Sign Co-Sign Detail Recorded Client Recorded Date Recorded By Document 04/06/18 08:37 [id number] 04/06/18 08:40 04/06/18 08:37 Wound Center Nurse 2 [Procedure/Treatment] #13 R Med Heel -Time 08:38 -Correct Patient Yes -Correct Side, Site, Position Yes -Correct Procedure Yes -Procedure Performed Yes -Type of Procedure Debridement -Clinical Debridement Subcutaneous -Post Debridement Size (cm) - Length 1.2 -Post Debridement Size (cm) - Width 1.9 -Post Debridement Size (cm) - Depth 0.1 -Total Square Cm 2.28 -Wound/Ulcer Outcome Not Healed -Ulcer Cleansing Rinsed/ Irrigated with Saline -Foul Odor after Cleansing No -Bioengineered Tissue Yes -Type of bioengineered Tissue NU-SHIELD -Expiration Date 01/17/23 -Product Lot Number [id number] -Percent Used 100 -Saline Lot Number [id number] -Topical Lidocaine (%) 4 -Bleeding Controlled with Pressure -Treatment Response Procedure Tolerated Well #21 Right Foot-Toes w/Metatarsal Head circumfrential -Time 08:39 -Correct Patient Yes -Correct Side, Site, Position Yes -Correct Procedure Yes -Procedure Performed Yes -Type of Procedure Debridement -Clinical Debridement Subcutaneous -Post Debridement Size (cm) - Length 4.1 -Post Debridement Size (cm) - Width 1.1 -Post Debridement Size (cm) - Depth 0.2 -Total Square Cm 4.51 -Wound/Ulcer Outcome Not Healed -Ulcer Cleansing Rinsed/ Irrigated with Saline -Foul Odor after Cleansing No -Bioengineered Tissue No -Topical Lidocaine (%) 4 -Bleeding Controlled with Pressure -Treatment Response Procedure Tolerated Well [See Physician Procedure note for Specifics] Pain Scale: 0-10 Numeric [Pain] -Is Patient Pain Free? Yes Musculoskeletal: No Tenderness to Palpation of Joints or Extremities, Muscle Wasting Neurological: - - Lack of epicritic sensation light touch bilateral consistent with neuropathy Psych/Mental Status: Normal Affect, Appropriate Debridement Note Post-Debridement Measurements/Treatment WC - Nurse 2 - General Ulcer CM Notes Start: 03/07/18 16:13 Freq: Status: Active Protocol: Activity Type Activity Date Activity User E-Sign Co-Sign Detail Recorded Client Recorded Date Recorded By Document 03/09/18 12:49 [email or web address] 03/09/18 12:56 Document 03/16/18 08:38 [id number] 03/16/18 08:42 Document 03/23/18 08:33 [id number] 03/23/18 08:36 Document 03/30/18 09:01 [id number] 03/30/18 09:03 Document 04/06/18 08:37 [id number] 04/06/18 08:40 03/09/18 03/16/18 03/23/18 12:49 08:38 08:33 Wound Center Nurse 2 #13 R Med Heel -Time 12:55 08:38 08:34 -Correct Patient Yes Yes Yes -Correct Side, Site, Position Yes Yes Yes -Correct Procedure Yes Yes Yes -Procedure Performed Yes Yes Yes -Type of Procedure Debridement Debridement Debridement -Clinical Debridement Subcutaneous Subcutaneous Subcutaneous -Post Debridement Size (cm) - Length 2.1 2.4 2.1 -Post Debridement Size (cm) - Width 2.3 2.3 2.9 -Post Debridement Size (cm) - Depth 0.1 0.1 0.1 -Total Square Cm 4.83 5.52 6.09 -Wound/Ulcer Outcome Not Healed Not Healed Not Healed -Ulcer Cleansing Rinsed/ Rinsed/ Rinsed/ Irrigated with Irrigated with Irrigated with Saline Saline Saline -Foul Odor after Cleansing No No No -Bioengineered Tissue No Yes Yes -Type of bioengineered Tissue [facility] -Expiration Date 02/15/23 02/24/23 -Product Lot Number [id number] -Percent Used 50 50 -Saline Lot Number [id number] -Topical Lidocaine (%) 4 4 -Bleeding Controlled with Pressure Pressure Pressure -Treatment Response Procedure Procedure Procedure Tolerated Well Tolerated Well Tolerated Well #21 Right Foot-Toes w/Metatarsal Head circumfrential -Time 12:55 08:39 08:34 -Correct Patient Yes Yes Yes -Correct Side, Site, Position Yes Yes Yes -Correct Procedure Yes Yes Yes -Procedure Performed Yes Yes Yes -Type of Procedure Debridement Debridement Debridement -Clinical Debridement Subcutaneous Subcutaneous Subcutaneous -Post Debridement Size (cm) - Length 0.7 5.1 0.6 -Post Debridement Size (cm) - Width 0.5 2.3 0.6 -Post Debridement Size (cm) - Depth 0.2 0.2 0.1 -Total Square Cm 0.35 11.73 0.36 -Wound/Ulcer Outcome Not Healed Not Healed Not Healed -Ulcer Cleansing Rinsed/ Rinsed/ Rinsed/ Irrigated with Irrigated with Irrigated with Saline Saline Saline -Foul Odor after Cleansing No No No -Bioengineered Tissue No Yes No -Type of bioengineered Tissue [facility] -Expiration Date 02/15/23 02/24/23 -Product Lot Number [id number] -Percent Used 50 50 -Saline Lot Number [id number] -Topical Lidocaine (%) 4 4 -Bleeding Controlled with Pressure Pressure Pressure -Treatment Response Procedure Procedure Procedure Tolerated Well Tolerated Well Tolerated Well Pain Scale: 0-10 Numeric Is Patient Pain Free? Yes Yes Yes 03/30/18 04/06/18 09:01 08:37 Wound Center Nurse 2 #13 R Med Heel -Time 09:01 08:38 -Correct Patient Yes Yes -Correct Side, Site, Position Yes Yes -Correct Procedure Yes Yes -Procedure Performed Yes Yes -Type of Procedure Debridement Debridement -Clinical Debridement Subcutaneous Subcutaneous -Post Debridement Size (cm) - Length 1.3 1.2 -Post Debridement Size (cm) - Width 2.7 1.9 -Post Debridement Size (cm) - Depth 0.1 0.1 -Total Square Cm 3.51 2.28 -Wound/Ulcer Outcome Not Healed Not Healed -Ulcer Cleansing Rinsed/ Rinsed/ Irrigated with Irrigated with Saline Saline -Foul Odor after Cleansing No No -Bioengineered Tissue Yes Yes -Type of bioengineered Tissue [facility] -Expiration Date 01/17/23 01/17/23 -Product Lot Number [id number] -Percent Used 100 100 -Saline Lot Number [id number] -Topical Lidocaine (%) 4 -Bleeding Controlled with Pressure Pressure -Treatment Response Procedure Procedure Tolerated Well Tolerated Well #21 Right Foot-Toes w/Metatarsal Head circumfrential -Time 09:02 08:39 -Correct Patient Yes Yes -Correct Side, Site, Position Yes Yes -Correct Procedure Yes Yes -Procedure Performed Yes Yes -Type of Procedure Debridement Debridement -Clinical Debridement Subcutaneous Subcutaneous -Post Debridement Size (cm) - Length 1.1 4.1 -Post Debridement Size (cm) - Width 0.8 1.1 -Post Debridement Size (cm) - Depth 0.1 0.2 -Total Square Cm 0.88 4.51 -Wound/Ulcer Outcome Not Healed Not Healed -Ulcer Cleansing Rinsed/ Rinsed/ Irrigated with Irrigated with Saline Saline -Foul Odor after Cleansing No No -Bioengineered Tissue Yes No -Type of bioengineered Tissue [facility] -Expiration Date 01/17/23 -Product Lot Number [id number] -Percent Used 100 -Saline Lot Number [id number] -Topical Lidocaine (%) 4 -Bleeding Controlled with Pressure Pressure -Treatment Response Procedure Procedure Tolerated Well Tolerated Well Pain Scale: 0-10 Numeric Is Patient Pain Free? Yes Yes Wound debrided: heel Laterality: Right Wound Grade/Stage: grade 3 Type of Debridement: Excisional debridement Anesthesia Used: 4% Lidocaine Solution Depth: in the subcutaneous layer Percentage of wound debrided: 100 Instrument Used: #15 blade Tissue Removed: fibrous, devitalized subcutaneous, biofilm, slough Severity: Fat Layer Exposed Amount of bleeding with debridement: Mild Bleeding Controlled with: Pressure Patient tolerated procedure well - Additional Wound Wound debrided: toe Laterality: Right Wound Grade/Stage: grade 1 Type of Debridement: Excisional debridement Anesthesia Used: 4% Lidocaine Solution Depth: in the subcutaneous layer Percentage of wound debrided: 100 Instrument Used: #15 blade Tissue Removed: fibrous, devitalized subcutaneous, biofilm, slough Severity: Fat Layer Exposed Amount of bleeding with debridement: Mild Bleeding Controlled with: Pressure Patient tolerated procedure: Patient tolerated procedure well Assessment/Plan Active Problems Ulcer of right lower extremity with fat layer exposed (Chronic) Ulcer of left lower extremity, limited to breakdown of skin (Chronic) Non-pressure chronic ulcer of other part of right foot with fat layer exposed (Chronic) Morbid obesity (Chronic) Venous stasis dermatitis (Chronic) Type 2 diabetes mellitus with diabetic polyneuropathy (Chronic) Delayed wound healing (Chronic) Malnutrition (Chronic) Assessment: ulcer right forefoot (digit 2). right heel ulcer muscle involved and exposed fascia without infection noted today (previous grade 3); s/p surgical debridement and application of advance wound care products (amniofil and epicord). Left below-knee amputation sub-hemorrhagic tissue with continued weeping noted; no infection. Lymphedema. Ulcer left stump site with skin layer exposed, no infection. Chronic lower extremity edema and venous insufficiency. Morbid obesity. Type 2 diabetes uncontrolled with peripheral neuropathy. CKD. Hypertension. Left below-knee amputation. Malnutrition. Delayed wound healing. Nonadherence to treatment plan Plan: I reviewed and discussed his case debridement done as documented above in the clinical panel, procedure was well tolerated. Additional advanced product application prior authorization was approved and nushield was applied today according to standard protocol. This is medically necessary and will facilitate a more timely healing course. Verbal consent was obtained. This was only applied to the heel today. This was secured with steri strips and a wound veil. To keep this intact until follow up next week. Hibiclens soap was recommended for cleansing to the toe area due to this odor and maceration. I recommend changing this with dry gauze over the ulcer sites and Betadine gauze to the anterior and the right foot. Continue compression and elevate lower extreity when sitting and in bed. Optimal blood sugar contol. Continue protein suppplements and increased protein in diet. To continue hyperbaric oxygen therapy as scheduled on complaint basis. I encouraged continued use. His left limb is less inflamed today and I recommend compliance with elevation and compression use; this is imperative for healing. To improve compliance with compression pumps. I advised him to at least get a second session even if it is reduced in time each day. He reports he is doing this and I recommend he continues. Follow up in 1 week with at the wound healing center or call sooner if he has any questions or concerns.
[2018-04-06 09:16] LABS: Bedside Glucose 198 mg/dL (70-110)
--- NOTE | 2018-04-06 09:31 | PCM.HBO.PN ---
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 Progress: The patient appears to be tolerating hyperbaric oxygen therapy well. This is his 2nd treatment course and his 42nd session of hyperbaric oxygen therapy. Tolerance of hyperbaric oxygen therapy: Hyperbaric oxygen therapy was administered as per the facility's protocol. The patient tolerated hyperbaric oxygen therapy well, without complaints or complications. Upon emergence from the hyperbaric chamber, patient's vital signs remained stable. Patient was discharged in good condition. 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) Delayed wound healing (Chronic) Malnutrition (Chronic) Venous insufficiency (Chronic) Lymphedema (Chronic) Edema of both legs (Chronic) GERD (gastroesophageal reflux disease) (Chronic) Hypertension (Chronic) Hyperlipemia (Chronic) Morbid obesity with BMI of 45.0-49.9, adult (Chronic) Hyperlipidemia associated with type 2 diabetes mellitus (Chronic) 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 Allergies/Adverse Reactions: Allergies bee venom protein (honey bee) Allergy (Verified 12/13/17 09:30) Swelling metronidazole [From Flagyl] Allergy (Verified 12/13/17 09:30) Itching Home Medications: Ambulatory Orders Medication Instructions Recorded Atorvastatin Calcium [Lipitor] 10 mg PO QHS 01/08/17 Brimonidine Tartrate 0.2% 1 drop EACH EYE BID 01/08/17 [Brimonidine 0.2% 5Ml Bottle] Ergocalciferol [Vitamin D] 50,000 unit PO FR 01/08/17 Gabapentin [Neurontin] 1,600 mg PO QHS 01/08/17 Gabapentin [Neurontin] 600 mg PO DAILY 01/08/17 Insulin U-500 [Humulin R U-500 105 units SC DINNER 01/08/17 ([facility])] Insulin U-500 [Humulin R U-500 105 units SC LUNCH 01/08/17 ([facility])] Insulin U-500 [Humulin R U-500 160 units SC BREAKFAST 01/08/17 ([facility])] Latanoprost 0.005% [Xalatan 1 drop EACH EYE QHS 01/08/17 Opthalmic] Losartan Potassium [Cozaar] 50 mg PO DAILY 01/08/17 Nebivolol HCl [Bystolic (Beta 10 mg PO DAILY 01/08/17 Akira)] Omeprazole [Prilosec] 40 mg PO DAILY 01/08/17 Acetaminophen [Tylenol Tablet] 650 mg PO Q6H PRN PRN tablet 09/07/17 Clopidogrel Bisulfate [Plavix] 75 mg PO DAILY 09/07/17 Menthol/Lanolin/Calamine/Znox 1 applic TOPICAL 0600,2200 tube 09/21/17 [Calmoseptine Ointment] Nutritional Supplement [Madhu - 1 packet PO BIDCM #60 packet 09/21/17 OR[facility] FLAVOR] Nystatin Powder [Mycostatin Powder] 1 applic TOPICAL 0600,2200 bottle 09/21/17 Ferrous Sulfate [Iron] 325 mg PO BID 10/14/17 Clindamycin HCl 300 mg PO [id number] #40 cap 12/13/17 Maternal Family History: Diabetes Paternal Family History: Hypertension Sibling Family History: Diabetes Smoking Status: Former smoker Physical Exam Vital Signs Temp Pulse Resp BP 95.3 F L 91 18 122/61 H 04/06/18 08:16 10/31/18 08:16 04/06/18 08:16 04/06/18 08:16 General: Alert, Oriented x3, Cooperative, No apparent distress HEENT: Atraumatic, Normocephalic Lungs: Normal air movement Psych/Mental Status: Normal Affect Assessment/Plan Active Problems Ulcer of right lower extremity with fat layer exposed (Chronic) Ulcer of left lower extremity, limited to breakdown of skin (Chronic) Non-pressure chronic ulcer of other part of right foot with fat layer exposed (Chronic) Morbid obesity (Chronic) Venous stasis dermatitis (Chronic) Type 2 diabetes mellitus with diabetic polyneuropathy (Chronic) Delayed wound healing (Chronic) Malnutrition (Chronic) The patient appears to be tolerating hyperbaric oxygen therapy well, which will continue as per the patient's medical plan.
[2018-04-06 11:45] LABS: Bedside Glucose 148 mg/dL (70-110)
[2018-04-06 12:29] VITALS: BP 122/61; BP 160/74; PULSE 88; PULSE 91; RESP 18; TEMP 35.2; TEMP 36.1
--- NOTE | 2018-04-18 22:38 | PCM.HBO.PN ---
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 Progress: The patient appears to be tolerating hyperbaric oxygen therapy well. This is his 2nd treatment course and his 49th session of hyperbaric oxygen therapy. Tolerance of hyperbaric oxygen therapy: Hyperbaric oxygen therapy was administered as per the facility's protocol. The patient tolerated hyperbaric oxygen therapy well, without complaints or complications. Upon emergence from the hyperbaric chamber, patient's vital signs remained stable. Patient was discharged in good condition. His blood glucose was 123 before the treatment. He was given a snack prior to the HBO treatment. He then proceeded with his HBO treatment without problem. His blood glucose was 128 after the treatment. Past Medical History Chronic Problems Chronic ulcer of right foot with fat layer exposed (Chronic) Ulcer of left lower extremity with fat layer exposed (Chronic) Ulcer of right lower extremity with fat layer exposed (Chronic) Ulcer of left lower extremity, limited to breakdown of skin (Chronic) Ulcer of left lower extremity, limited to breakdown of skin (Chronic) Non-pressure chronic ulcer of other part of right foot with fat layer exposed (Chronic) Complete below knee amputation of left lower extremity (Chronic) Ulcer of right foot with necrosis of muscle (Chronic) Ulcer of right foot with fat layer exposed (Chronic) 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) Delayed wound healing (Chronic) Malnutrition (Chronic) Venous insufficiency (Chronic) Lymphedema (Chronic) Edema of both legs (Chronic) GERD (gastroesophageal reflux disease) (Chronic) Hypertension (Chronic) Hyperlipemia (Chronic) Morbid obesity with BMI of 45.0-49.9, adult (Chronic) Hyperlipidemia associated with type 2 diabetes mellitus (Chronic) 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 Allergies/Adverse Reactions: Allergies bee venom protein (honey bee) Allergy (Verified 12/13/17 09:30) Swelling metronidazole [From Flagyl] Allergy (Verified 12/13/17 09:30) Itching Home Medications: Ambulatory Orders Medication Instructions Recorded Atorvastatin Calcium [Lipitor] 10 mg PO QHS 01/08/17 Brimonidine Tartrate 0.2% 1 drop EACH EYE BID 01/08/17 [Brimonidine 0.2% 5Ml Bottle] Ergocalciferol [Vitamin D] 50,000 unit PO FR 01/08/17 Gabapentin [Neurontin] 1,600 mg PO QHS 01/08/17 Gabapentin [Neurontin] 600 mg PO DAILY 01/08/17 Insulin U-500 [Humulin R U-500 105 units SC DINNER 01/08/17 ([facility])] Insulin U-500 [Humulin R U-500 105 units SC LUNCH 01/08/17 ([facility])] Insulin U-500 [Humulin R U-500 160 units SC BREAKFAST 01/08/17 ([facility])] Latanoprost 0.005% [Xalatan 1 drop EACH EYE QHS 01/08/17 Opthalmic] Losartan Potassium [Cozaar] 50 mg PO DAILY 01/08/17 Nebivolol HCl [Bystolic (Beta 10 mg PO DAILY 01/08/17 Akira)] Omeprazole [Prilosec] 40 mg PO DAILY 01/08/17 Acetaminophen [Tylenol Tablet] 650 mg PO Q6H PRN PRN tablet 09/07/17 Clopidogrel Bisulfate [Plavix] 75 mg PO DAILY 09/07/17 Menthol/Lanolin/Calamine/Znox 1 applic TOPICAL 0600,2200 tube 09/21/17 [Calmoseptine Ointment] Nutritional Supplement [Madhu - 1 packet PO BIDCM #60 packet 09/21/17 [place] FLAVOR] Nystatin Powder [Mycostatin Powder] 1 applic TOPICAL 0600,2200 bottle 09/21/17 Ferrous Sulfate [Iron] 325 mg PO BID 10/14/17 Clindamycin HCl 300 mg PO [id number] #40 cap 12/13/17 Maternal Family History: Diabetes Paternal Family History: Hypertension Sibling Family History: Diabetes Smoking Status: Former smoker Physical Exam Vital Signs Temp Pulse Resp BP 95.3 F L 91 18 122/61 H 04/06/18 12:29 04/06/18 12:29 04/06/18 12:29 04/06/18 12:29 Assessment/Plan Active Problems Chronic ulcer of right foot with fat layer exposed (Chronic) Ulcer of left lower extremity with fat layer exposed (Chronic) Type 2 diabetes mellitus with diabetic polyneuropathy (Chronic) Delayed wound healing (Chronic) Edema of both legs (Chronic)
--- NOTE | 2018-05-02 22:39 | HBO.PN.PCM_ITS ---
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 Progress: The patient appears to be tolerating hyperbaric oxygen therapy well. This is his 2nd treatment course and his 49th session of hyperbaric oxygen therapy. Tolerance of hyperbaric oxygen therapy: Hyperbaric oxygen therapy was administered as per the facility's protocol. The patient tolerated hyperbaric oxygen therapy well, without complaints or complications. Upon emergence from the hyperbaric chamber, patient's vital signs remained stable. Patient was discharged in good condition. His blood glucose was 123 before the treatment. He was given a snack prior to the HBO treatment. He then proceeded with his HBO treatment without problem. His blood glucose was 128 after the treatment. Past Medical History Chronic Problems Chronic ulcer of right foot with fat layer exposed (Chronic) Ulcer of left lower extremity with fat layer exposed (Chronic) Ulcer of right lower extremity with fat layer exposed (Chronic) Ulcer of left lower extremity, limited to breakdown of skin (Chronic) Ulcer of left lower extremity, limited to breakdown of skin (Chronic) Non-pressure chronic ulcer of other part of right foot with fat layer exposed (Chronic) Complete below knee amputation of left lower extremity (Chronic) Ulcer of right foot with necrosis of muscle (Chronic) Ulcer of right foot with fat layer exposed (Chronic) 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) Delayed wound healing (Chronic) Malnutrition (Chronic) Venous insufficiency (Chronic) Lymphedema (Chronic) Edema of both legs (Chronic) GERD (gastroesophageal reflux disease) (Chronic) Hypertension (Chronic) Hyperlipemia (Chronic) Morbid obesity with BMI of 45.0-49.9, adult (Chronic) Hyperlipidemia associated with type 2 diabetes mellitus (Chronic) 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 Allergies/Adverse Reactions: Allergies bee venom protein (honey bee) Allergy (Verified 12/13/17 09:30) Swelling metronidazole [From Flagyl] Allergy (Verified 12/13/17 09:30) Itching Home Medications: Ambulatory Orders Medication Instructions Recorded Atorvastatin Calcium [Lipitor] 10 mg PO QHS 01/08/17 Brimonidine Tartrate 0.2% 1 drop EACH EYE BID 01/08/17 [Brimonidine 0.2% 5Ml Bottle] Ergocalciferol [Vitamin D] 50,000 unit PO FR 01/08/17 Gabapentin [Neurontin] 1,600 mg PO QHS 01/08/17 Gabapentin [Neurontin] 600 mg PO DAILY 01/08/17 Insulin U-500 [Humulin R U-500 105 units SC DINNER 01/08/17 ([facility])] Insulin U-500 [Humulin R U-500 105 units SC LUNCH 01/08/17 ([facility])] Insulin U-500 [Humulin R U-500 160 units SC BREAKFAST 01/08/17 ([facility])] Latanoprost 0.005% [Xalatan 1 drop EACH EYE QHS 01/08/17 Opthalmic] Losartan Potassium [Cozaar] 50 mg PO DAILY 01/08/17 Nebivolol HCl [Bystolic (Beta 10 mg PO DAILY 01/08/17 Akira)] Omeprazole [Prilosec] 40 mg PO DAILY 01/08/17 Acetaminophen [Tylenol Tablet] 650 mg PO Q6H PRN PRN tablet 09/07/17 Clopidogrel Bisulfate [Plavix] 75 mg PO DAILY 09/07/17 Menthol/Lanolin/Calamine/Znox 1 applic TOPICAL 0600,2200 tube 09/21/17 [Calmoseptine Ointment] Nutritional Supplement [Madhu - 1 packet PO BIDCM #60 packet 09/21/17 [facility] FLAVOR] Nystatin Powder [Mycostatin Powder] 1 applic TOPICAL 0600,2200 bottle 09/21/17 Ferrous Sulfate [Iron] 325 mg PO BID 10/14/17 Clindamycin HCl 300 mg PO [id number] #40 cap 12/13/17 Maternal Family History: Diabetes Paternal Family History: Hypertension Sibling Family History: Diabetes Smoking Status: Former smoker Physical Exam Vital Signs Temp Pulse Resp BP 95.3 F L 91 18 122/61 H 04/06/18 12:29 04/06/18 12:29 04/06/18 12:29 04/06/18 12:29 Assessment/Plan Active Problems Chronic ulcer of right foot with fat layer exposed (Chronic) Ulcer of left lower extremity with fat layer exposed (Chronic) Type 2 diabetes mellitus with diabetic polyneuropathy (Chronic) Delayed wound healing (Chronic) Edema of both legs (Chronic)
== END 2018-04-06 23:59 ==
LOC: WC 08:00
PROVIDERS: Family Provider Family Medicine Geriatric Medicine; PCP Family Medicine Geriatric Medicine; Visit Provider Podiatrist
DX: E11.621 Type 2 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with foot ulcer (principal); E11.42 Type 2 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with diabetic polyneuropathy; I87.2 Venous insufficiency (chronic) (peripheral); L97.412 Non-pressure chronic ulcer of right heel and midfoot with fat layer exposed; L97.512 Non-pressure chronic ulcer of other part of right foot with fat layer exposed; E66.01 Morbid (severe) obesity due to excess calories; Z68.42 Body mass index [BMI] 45.0-49.9, adult; Z71.3 Dietary counseling and surveillance; E11.22 Type 2 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with diabetic chronic kidney disease; N18.9 Chronic kidney disease, unspecified; I12.9 Hypertensive chronic kidney disease with stage 1 through stage 4 chronic kidney disease, or unspecified chronic kidney disease; E11.65 Type 2 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with hyperglycemia; R60.0 Localized edema
CPT/HCPCS: 11042; 15275; 29581; 36415; 80053; 82962; 84443; 85025; 99183; 99212; Q4160; G0277; G0463

== ENCOUNTER 2018-05-06 10:00 | Outpatient (RCR) | payer MEDICARE, MEDICAID, SELFPAY ==
[2018-04-07 00:54] VITALS: BP 122/61; PULSE 91; RESP 18; TEMP 35.2
[2018-04-07 10:59] VITALS: BP 114/56; BP 144/76; PULSE 84; PULSE 92; RESP 18; TEMP 36.4; TEMP 36.6
--- NOTE | 2018-04-07 13:10 | HBO.PN.PCM_ITS ---
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 Progress: The patient appears to be tolerating hyperbaric oxygen therapy well. This is his 2nd treatment course and his 43rd session of hyperbaric oxygen therapy. Tolerance of hyperbaric oxygen therapy: Hyperbaric oxygen therapy was administered as per the facility's protocol. The patient tolerated hyperbaric oxygen therapy well, without complaints or complications. Upon emergence from the hyperbaric chamber, patient's vital signs remained stable. Patient was discharged in good condition. 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) Delayed wound healing (Chronic) Malnutrition (Chronic) Venous insufficiency (Chronic) Lymphedema (Chronic) Edema of both legs (Chronic) GERD (gastroesophageal reflux disease) (Chronic) Hypertension (Chronic) Hyperlipemia (Chronic) Morbid obesity with BMI of 45.0-49.9, adult (Chronic) Hyperlipidemia associated with type 2 diabetes mellitus (Chronic) 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 Allergies/Adverse Reactions: Allergies bee venom protein (honey bee) Allergy (Verified 12/13/17 09:30) Swelling metronidazole [From Flagyl] Allergy (Verified 12/13/17 09:30) Itching Home Medications: Ambulatory Orders Medication Instructions Recorded Atorvastatin Calcium [Lipitor] 10 mg PO QHS 01/08/17 Brimonidine Tartrate 0.2% 1 drop EACH EYE BID 01/08/17 [Brimonidine 0.2% 5Ml Bottle] Ergocalciferol [Vitamin D] 50,000 unit PO FR 01/08/17 Gabapentin [Neurontin] 1,600 mg PO QHS 01/08/17 Gabapentin [Neurontin] 600 mg PO DAILY 01/08/17 Insulin U-500 [Humulin R U-500 105 units SC DINNER 01/08/17 ([facility])] Insulin U-500 [Humulin R U-500 105 units SC LUNCH 01/08/17 ([facility])] Insulin U-500 [Humulin R U-500 160 units SC BREAKFAST 01/08/17 ([facility])] Latanoprost 0.005% [Xalatan 1 drop EACH EYE QHS 01/08/17 Opthalmic] Losartan Potassium [Cozaar] 50 mg PO DAILY 01/08/17 Nebivolol HCl [Bystolic (Beta 10 mg PO DAILY 01/08/17 Akira)] Omeprazole [Prilosec] 40 mg PO DAILY 01/08/17 Acetaminophen [Tylenol Tablet] 650 mg PO Q6H PRN PRN tablet 09/07/17 Clopidogrel Bisulfate [Plavix] 75 mg PO DAILY 09/07/17 Menthol/Lanolin/Calamine/Znox 1 applic TOPICAL 0600,2200 tube 09/21/17 [Calmoseptine Ointment] Nutritional Supplement [Madhu - 1 packet PO BIDCM #60 packet 09/21/17 [place] FLAVOR] Nystatin Powder [Mycostatin Powder] 1 applic TOPICAL 0600,2200 bottle 09/21/17 Ferrous Sulfate [Iron] 325 mg PO BID 10/14/17 Clindamycin HCl 300 mg PO [id number] #40 cap 12/13/17 Maternal Family History: Diabetes Paternal Family History: Hypertension Sibling Family History: Diabetes Smoking Status: Former smoker Physical Exam Vital Signs Temp Pulse Resp BP 97.5 F L 92 18 114/56 L 04/07/18 10:59 11/01/18 10:59 04/07/18 10:59 04/07/18 10:59 General: Alert, Oriented x3, Cooperative, No apparent distress HEENT: Atraumatic Lungs: Normal air movement Psych/Mental Status: Normal Affect Assessment/Plan The patient appears to be tolerating hyperbaric oxygen therapy well, which will continue as per the patient's medical plan.
[2018-04-08 08:21] LABS: Bedside Glucose 124 mg/dL (70-110)
[2018-04-08 08:21] LABS: Bedside Glucose 98 mg/dL (70-110)
[2018-04-11 10:59] VITALS: BP 130/66; BP 141/86; PULSE 85; PULSE 87; RESP 18; TEMP 35.9; TEMP 37.1
[2018-04-12 07:20] LABS: Bedside Glucose 148 mg/dL (70-110)
[2018-04-12 07:25] LABS: Bedside Glucose 132 mg/dL (70-110)
[2018-04-12 09:50] VITALS: BP 127/73; BP 154/88; PULSE 68; PULSE 92; RESP 16; RESP 18; TEMP 36.1; TEMP 36.2
--- NOTE | 2018-04-12 10:58 | HBO.PN.PCM_ITS ---
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 Progress: The patient appears to be tolerating hyperbaric oxygen therapy well. This is his 2nd treatment course and his 43rd session of hyperbaric oxygen therapy. Tolerance of hyperbaric oxygen therapy: Hyperbaric oxygen therapy was administered as per the facility's protocol. The patient tolerated hyperbaric oxygen therapy well, without complaints or complications. Upon emergence from the hyperbaric chamber, patient's vital signs remained stable. Patient was discharged in good condition. 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) Delayed wound healing (Chronic) Malnutrition (Chronic) Venous insufficiency (Chronic) Lymphedema (Chronic) Edema of both legs (Chronic) GERD (gastroesophageal reflux disease) (Chronic) Hypertension (Chronic) Hyperlipemia (Chronic) Morbid obesity with BMI of 45.0-49.9, adult (Chronic) Hyperlipidemia associated with type 2 diabetes mellitus (Chronic) 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 Allergies/Adverse Reactions: Allergies bee venom protein (honey bee) Allergy (Verified 12/13/17 09:30) Swelling metronidazole [From Flagyl] Allergy (Verified 12/13/17 09:30) Itching Home Medications: Ambulatory Orders Medication Instructions Recorded Atorvastatin Calcium [Lipitor] 10 mg PO QHS 01/08/17 Brimonidine Tartrate 0.2% 1 drop EACH EYE BID 01/08/17 [Brimonidine 0.2% 5Ml Bottle] Ergocalciferol [Vitamin D] 50,000 unit PO FR 01/08/17 Gabapentin [Neurontin] 1,600 mg PO QHS 01/08/17 Gabapentin [Neurontin] 600 mg PO DAILY 01/08/17 Insulin U-500 [Humulin R U-500 105 units SC DINNER 01/08/17 ([facility])] Insulin U-500 [Humulin R U-500 105 units SC LUNCH 01/08/17 ([facility])] Insulin U-500 [Humulin R U-500 160 units SC BREAKFAST 01/08/17 ([facility])] Latanoprost 0.005% [Xalatan 1 drop EACH EYE QHS 01/08/17 Opthalmic] Losartan Potassium [Cozaar] 50 mg PO DAILY 01/08/17 Nebivolol HCl [Bystolic (Beta 10 mg PO DAILY 01/08/17 Akira)] Omeprazole [Prilosec] 40 mg PO DAILY 01/08/17 Acetaminophen [Tylenol Tablet] 650 mg PO Q6H PRN PRN tablet 09/07/17 Clopidogrel Bisulfate [Plavix] 75 mg PO DAILY 09/07/17 Menthol/Lanolin/Calamine/Znox 1 applic TOPICAL 0600,2200 tube 09/21/17 [Calmoseptine Ointment] Nutritional Supplement [Madhu - 1 packet PO BIDCM #60 packet 09/21/17 [place] FLAVOR] Nystatin Powder [Mycostatin Powder] 1 applic TOPICAL 0600,2200 bottle 09/21/17 Ferrous Sulfate [Iron] 325 mg PO BID 10/14/17 Clindamycin HCl 300 mg PO [id number] #40 cap 12/13/17 Maternal Family History: Diabetes Paternal Family History: Hypertension Sibling Family History: Diabetes Smoking Status: Former smoker Physical Exam Vital Signs Temp Pulse Resp BP 96.6 F L 87 18 130/66 H 04/11/18 10:59 04/11/18 10:59 04/11/18 10:59 04/11/18 10:59 General: Alert, Oriented x3, Cooperative, No apparent distress HEENT: Atraumatic, - - moderate amount of soft cerumen to bilateral ear canals, TMs visible and clear bilaterally Lungs: Clear to auscultation, No rhonchi, No wheeze, No rales, Diminished Cardiovascular: Regular rate, Regular Rhythm, Normal S1, Normal S2, No murmurs Psych/Mental Status: Normal Affect, Appropriate, Alert and oriented to time, place, person, mood and affect Assessment/Plan The patient appears to be tolerating hyperbaric oxygen therapy well, which will continue as per the patient's medical plan.
[2018-04-13 08:15] VITALS: BP 138/62; PULSE 86; RESP 18; TEMP 35.4
--- NOTE | 2018-04-13 09:34 | PCM.WC.PN ---
(1) Ulcer of right lower extremity with fat layer exposed Status: Chronic Current Visit: Yes Code(s): L97.912 - Non-pressure chronic ulcer of unspecified part of right lower leg with fat layer exposed (2) Ulcer of left lower extremity, limited to breakdown of skin Status: Chronic Current Visit: Yes Code(s): L97.921 - Non-pressure chronic ulcer of unspecified part of left lower leg limited to breakdown of skin (3) Morbid obesity Status: Chronic Current Visit: Yes Code(s): E66.01 - Morbid (severe) obesity due to excess calories (4) BKA stump complication Status: Chronic Current Visit: Yes Code(s): T87.9 - Unspecified complications of amputation stump (5) Type 2 diabetes mellitus with diabetic polyneuropathy Status: Chronic Current Visit: Yes Code(s): E11.42 - Type 2 diabetes mellitus with diabetic polyneuropathy (6) Delayed wound healing Status: Chronic Current Visit: Yes Code(s): T14.8 - Other injury of unspecified body region (7) Malnutrition Status: Chronic Current Visit: Yes Code(s): E46 - Unspecified protein-calorie malnutrition (8) Venous insufficiency Status: Chronic Current Visit: Yes Code(s): I87.2 - Venous insufficiency (chronic) (peripheral) (9) Lymphedema Status: Chronic Current Visit: Yes Code(s): I89.0 - Lymphedema, not elsewhere classified (10) Edema of both legs Status: Chronic Current Visit: Yes Code(s): R60.0 - Localized edema Type of Wound Date of Service: 04/13/18 Chief Complaint: 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 History of Wound: 57-year-old white male returns to clinic for follow-up of bilateral leg ulcers and right foot ulcers. He denies fever, chill, nausea, vomiting, loss of appetite. He had multiple advanced wound care product applications. He resume hyperbaric oxygen therapy sessions and decrease in activity this past week. He presents in a wheelchair today. He denies odors or redness. He has demonstrated significant delays in healing. He has increased maceration to his left below-knee amputation stump site. Progress of Wound: Stable right toe area. Improved right heel area. Worsening maceration the left stump site - Physical Exam Vital Signs Temp Pulse Resp BP 95.7 F L 86 18 138/62 H 04/13/18 08:15 04/13/18 08:15 04/13/18 08:15 04/13/18 08:15 General: Alert, Oriented x3, Cooperative Extremities: No cyanosis, Capillary Refill Less than 3 Seconds, No Calf Tenderness - Negative Harry and Badillo sign right, Diminished Peripheral Pulses, Edema - Bilateral lower extremity lymphedema unchanged compared to last week, - - Left below-knee amputation Skin: Ulcer/ Wound - No purulence, erythema, streaking, odor, or infection or deep tissue exposed bilateral lower extremities. No eschar or necrotic tissue bilateral. The peripheral skin is hairless and atrophic. There is still mild odor to the right forefoot area and this has decreased compared to last week. There is increased maceration sub-hemorrhagic tissue to the left below-knee amputation stump site and this is very moist Wound Measurements and Assessment WC - Nurse 1 - General Ulcer Measurement Start: 04/07/18 10:59 Freq: Status: Active Protocol: Activity Type Activity Date Activity User E-Sign Co-Sign Detail Recorded Client Recorded Date Recorded By Document 04/13/18 08:15 [id number] 04/13/18 08:21 04/13/18 08:15 Wound Center Nurse 1 [Ulcer Assessment] #13 R Med Heel -Current Size (cm) - Length 1.4 -Current Size (cm) - Width 1.8 -Current Size (cm) - Depth 0.1 -Total Square Cm 2.52 -Photo Taken No -Exudate Amt Small (1-33%) -Exudate Type Serosanguineous -Wound Margin Thickened -Granulation Amt Small (1-33%) -Granulation Quality [place] -Necrosis Amt Large (67-100%) -Necrotic Tissue Type Adherent Slough -Structure Exposed N/A -Texture (Martha-wound Skin Appearance) Callus Scarring -Moisture (Martha-wound Skin Appearance Dry/Scaly ) -Color (Martha-wound Skin Appearance) Hemosiderin Staining Rubor -Temperature (Martha-wound Skin No Abnormality Appearance) (Pt Warm) -Ulcer Cleansing Wound Cleanser -Foul Odor after Cleansing No -Anesthetic Used 4% Lidocaine Solution #21 Right Foot-Toes w/Metatarsal Head circumfrential -Current Size (cm) - Length 4 -Current Size (cm) - Width 0.8 -Current Size (cm) - Depth 0.1 -Total Square Cm 3.2 -Photo Taken No -Exudate Amt Medium (34-66%) -Exudate Type Serosanguineous -Wound Margin Thickened -Granulation Amt Large (67-100%) -Granulation Quality [place] -Necrosis Amt Small (1-33%) -Necrotic Tissue Type Adherent Slough -Structure Exposed N/A -Texture (Martha-wound Skin Appearance) Scarring -Moisture (Martha-wound Skin Appearance No Abnormality ) -Color (Martha-wound Skin Appearance) Erythema Hemosiderin Staining Rubor -Temperature (Martha-wound Skin No Abnormality Appearance) (Pt Warm) -Ulcer Cleansing Wound Cleanser -Foul Odor after Cleansing No -Anesthetic Used 4% Lidocaine Solution [Edema Assessment] -Right Calf (cm) 41.1 -Right Ankle (cm) 29.5 -Left Calf (cm) 43.4 WC - Nurse 2 - General Ulcer CM Notes Start: 04/07/18 10:59 Freq: Status: Active Protocol: Activity Type Activity Date Activity User E-Sign Co-Sign Detail Recorded Client Recorded Date Recorded By Document 04/13/18 08:52 [id number] 04/13/18 08:54 04/13/18 08:52 Wound Center Nurse 2 [Procedure/Treatment] #13 R Med Heel -Time 08:53 -Correct Patient Yes -Correct Side, Site, Position Yes -Correct Procedure Yes -Procedure Performed Yes -Type of Procedure Debridement -Clinical Debridement Subcutaneous -Post Debridement Size (cm) - Length 1.5 -Post Debridement Size (cm) - Width 1.9 -Post Debridement Size (cm) - Depth 0.1 -Total Square Cm 2.85 -Wound/Ulcer Outcome Not Healed -Ulcer Cleansing Rinsed/ Irrigated with Saline -Foul Odor after Cleansing No -Bioengineered Tissue Yes -Type of bioengineered Tissue NU-SHIELD -Expiration Date 03/24/23 -Product Lot Number [id number] -Percent Used 100 -Saline Lot Number [id number] -Topical Lidocaine (%) 4 -Bleeding Controlled with Pressure -Treatment Response Procedure Tolerated Well #21 Right Foot-Toes w/Metatarsal Head circumfrential -Time 08:53 -Correct Patient Yes -Correct Side, Site, Position Yes -Correct Procedure Yes -Procedure Performed Yes -Type of Procedure Debridement -Clinical Debridement Subcutaneous -Post Debridement Size (cm) - Length 4.1 -Post Debridement Size (cm) - Width 0.9 -Post Debridement Size (cm) - Depth 0.1 -Total Square Cm 3.69 -Ulcer Cleansing Rinsed/ Irrigated with Saline -Foul Odor after Cleansing No -Bioengineered Tissue No -Topical Lidocaine (%) 4 -Bleeding Controlled with Pressure -Treatment Response Procedure Tolerated Well [See Physician Procedure note for Specifics] Pain Scale: 0-10 Numeric [Pain] -Is Patient Pain Free? Yes Musculoskeletal: Muscle Wasting Neurological: - - Lack of normal epicritic sensation light touch consistent with neuropathy bilateral Psych/Mental Status: Normal Affect, Appropriate Debridement Note Post-Debridement Measurements/Treatment WC - Nurse 2 - General Ulcer CM Notes Start: 04/07/18 10:59 Freq: Status: Active Protocol: Activity Type Activity Date Activity User E-Sign Co-Sign Detail Recorded Client Recorded Date Recorded By Document 04/13/18 08:52 [id number] 04/13/18 08:54 04/13/18 08:52 Wound Center Nurse 2 #13 R Med Heel -Time 08:53 -Correct Patient Yes -Correct Side, Site, Position Yes -Correct Procedure Yes -Procedure Performed Yes -Type of Procedure Debridement -Clinical Debridement Subcutaneous -Post Debridement Size (cm) - Length 1.5 -Post Debridement Size (cm) - Width 1.9 -Post Debridement Size (cm) - Depth 0.1 -Total Square Cm 2.85 -Wound/Ulcer Outcome Not Healed -Ulcer Cleansing Rinsed/ Irrigated with Saline -Foul Odor after Cleansing No -Bioengineered Tissue Yes -Type of bioengineered Tissue NU-SHIELD -Expiration Date 03/24/23 -Product Lot Number [id number] -Percent Used 100 -Saline Lot Number [id number] -Topical Lidocaine (%) 4 -Bleeding Controlled with Pressure -Treatment Response Procedure Tolerated Well #21 Right Foot-Toes w/Metatarsal Head circumfrential -Time 08:53 -Correct Patient Yes -Correct Side, Site, Position Yes -Correct Procedure Yes -Procedure Performed Yes -Type of Procedure Debridement -Clinical Debridement Subcutaneous -Post Debridement Size (cm) - Length 4.1 -Post Debridement Size (cm) - Width 0.9 -Post Debridement Size (cm) - Depth 0.1 -Total Square Cm 3.69 -Ulcer Cleansing Rinsed/ Irrigated with Saline -Foul Odor after Cleansing No -Bioengineered Tissue No -Topical Lidocaine (%) 4 -Bleeding Controlled with Pressure -Treatment Response Procedure Tolerated Well Pain Scale: 0-10 Numeric Is Patient Pain Free? Yes Wound debrided: heel Laterality: Right Wound Grade/Stage: grade 3 Type of Debridement: Excisional debridement Anesthesia Used: 4% Lidocaine Solution Depth: in the subcutaneous layer Percentage of wound debrided: 100 Instrument Used: #15 blade Tissue Removed: fibrous, devitalized subcutaneous, biofilm, slough Severity: Fat Layer Exposed Amount of bleeding with debridement: Mild Bleeding Controlled with: Pressure Patient tolerated procedure well - Additional Wound Wound debrided: toe Laterality: Right Wound Grade/Stage: grade 1 Type of Debridement: Excisional debridement Anesthesia Used: 4% Lidocaine Solution Depth: in the subcutaneous layer Percentage of wound debrided: 100 Instrument Used: #15 blade Tissue Removed: fibrous, devitalized subcutaneous, biofilm, slough Severity: Fat Layer Exposed Amount of bleeding with debridement: Mild Bleeding Controlled with: Pressure Patient tolerated procedure: Patient tolerated procedure well Assessment/Plan Active Problems Ulcer of right lower extremity with fat layer exposed (Chronic) Ulcer of left lower extremity, limited to breakdown of skin (Chronic) Morbid obesity (Chronic) BKA stump complication (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 right heel ulcer muscle involved and exposed fascia without infection noted today (previous grade 3); s/p surgical debridement and application of advance wound care products (amniofil and epicord). Left below-knee amputation sub-hemorrhagic tissue with continued weeping noted; no infection. Lymphedema. Ulcer left stump site with skin layer exposed, no infection. Chronic lower extremity edema and venous insufficiency. Morbid obesity. Type 2 diabetes uncontrolled with peripheral neuropathy. CKD. Hypertension. Left below-knee amputation. Malnutrition. Delayed wound healing. Nonadherence to treatment plan Plan: I reviewed and discussed his case debridement done as documented above in the clinical panel; this procedure was well tolerated. Additional advanced product application prior authorization was approved and nushield was applied today according to standard protocol. This is medically necessary and will facilitate a more timely healing course. Verbal consent was obtained. This was only applied to the heel today. This was secured with steri strips and a wound veil to the right heel. To keep this intact until follow up next week. I recommend changing this with dry gauze over the ulcer sites and Betadine gauze to the anterior and the right foot and left stump site to facilitate maceration reduction. Continue compression and elevate lower extreity when sitting and in bed. Optimal blood sugar contol. Continue protein suppplements and increased protein in diet. To continue hyperbaric oxygen therapy as scheduled on complaint basis. I encouraged continued use. To improve compliance with compression pumps. I advised him to at least get a second session even if it is reduced in time each day. He reports he is doing this and I recommend he continues. Follow up in 1 week with at the wound healing center or call sooner if he has any questions or concerns.
[2018-04-13 10:17] VITALS: BP 121/66; BP 136/78; PULSE 84; PULSE 86; RESP 16; TEMP 35.9; TEMP 36.8
[2018-04-13 13:30] LABS: Bedside Glucose 276 mg/dL (70-110)
[2018-04-13 13:30] LABS: Bedside Glucose 216 mg/dL (70-110)
[2018-04-13 13:30] LABS: Bedside Glucose 184 mg/dL (70-110)
[2018-04-13 13:31] LABS: Bedside Glucose 154 mg/dL (70-110)
--- NOTE | 2018-04-13 16:47 | HBO.PN.PCM_ITS ---
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 Progress: The patient appears to be tolerating hyperbaric oxygen therapy well. This is his 2nd treatment course and his 45th session of hyperbaric oxygen therapy. Tolerance of hyperbaric oxygen therapy: Hyperbaric oxygen therapy was administered as per the facility's protocol. The patient tolerated hyperbaric oxygen therapy well, without complaints or complications. Upon emergence from the hyperbaric chamber, patient's vital signs remained stable. Patient was discharged in good condition. 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) Delayed wound healing (Chronic) Malnutrition (Chronic) Venous insufficiency (Chronic) Lymphedema (Chronic) Edema of both legs (Chronic) GERD (gastroesophageal reflux disease) (Chronic) Hypertension (Chronic) Hyperlipemia (Chronic) Morbid obesity with BMI of 45.0-49.9, adult (Chronic) Hyperlipidemia associated with type 2 diabetes mellitus (Chronic) 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 Allergies/Adverse Reactions: Allergies bee venom protein (honey bee) Allergy (Verified 12/13/17 09:30) Swelling metronidazole [From Flagyl] Allergy (Verified 12/13/17 09:30) Itching Home Medications: Ambulatory Orders Medication Instructions Recorded Atorvastatin Calcium [Lipitor] 10 mg PO QHS 01/08/17 Brimonidine Tartrate 0.2% 1 drop EACH EYE BID 01/08/17 [Brimonidine 0.2% 5Ml Bottle] Ergocalciferol [Vitamin D] 50,000 unit PO FR 01/08/17 Gabapentin [Neurontin] 1,600 mg PO QHS 01/08/17 Gabapentin [Neurontin] 600 mg PO DAILY 01/08/17 Insulin U-500 [Humulin R U-500 105 units SC DINNER 01/08/17 ([facility])] Insulin U-500 [Humulin R U-500 105 units SC LUNCH 01/08/17 ([facility])] Insulin U-500 [Humulin R U-500 160 units SC BREAKFAST 01/08/17 ([facility])] Latanoprost 0.005% [Xalatan 1 drop EACH EYE QHS 01/08/17 Opthalmic] Losartan Potassium [Cozaar] 50 mg PO DAILY 01/08/17 Nebivolol HCl [Bystolic (Beta 10 mg PO DAILY 01/08/17 Akira)] Omeprazole [Prilosec] 40 mg PO DAILY 01/08/17 Acetaminophen [Tylenol Tablet] 650 mg PO Q6H PRN PRN tablet 09/07/17 Clopidogrel Bisulfate [Plavix] 75 mg PO DAILY 09/07/17 Menthol/Lanolin/Calamine/Znox 1 applic TOPICAL 0600,2200 tube 09/21/17 [Calmoseptine Ointment] Nutritional Supplement [Madhu - 1 packet PO BIDCM #60 packet 09/21/17 ORANGE FLAVOR] Nystatin Powder [Mycostatin Powder] 1 applic TOPICAL 0600,2200 bottle 09/21/17 Ferrous Sulfate [Iron] 325 mg PO BID 10/14/17 Clindamycin HCl 300 mg PO [id number] #40 cap 12/13/17 Maternal Family History: Diabetes Paternal Family History: Hypertension Sibling Family History: Diabetes Smoking Status: Former smoker Physical Exam Vital Signs Temp Pulse Resp BP 96.7 F L 84 16 121/66 H 04/13/18 10:17 11/07/18 10:17 04/13/18 10:17 04/13/18 10:17 General: Alert, Oriented x3, Cooperative, No apparent distress HEENT: Atraumatic Lungs: Normal air movement Cardiovascular: Regular rate Psych/Mental Status: Normal Affect Assessment/Plan Active Problems Ulcer of right lower extremity with fat layer exposed (Chronic) Ulcer of left lower extremity, limited to breakdown of skin (Chronic) Morbid obesity (Chronic) 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
[2018-04-14 10:21] LABS: Bedside Glucose 239 mg/dL (70-110)
[2018-04-14 10:57] VITALS: BP 110/64; BP 122/66; PULSE 119; PULSE 124; RESP 18; TEMP 35.7; TEMP 35.8
--- NOTE | 2018-04-14 11:50 | HBO.PN.PCM_ITS ---
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 Progress: The patient appears to be tolerating hyperbaric oxygen therapy well. This is his 2nd treatment course and his 46th session of hyperbaric oxygen therapy. Tolerance of hyperbaric oxygen therapy: Hyperbaric oxygen therapy was administered as per the facility's protocol. The patient tolerated hyperbaric oxygen therapy well, without complaints or complications. Upon emergence from the hyperbaric chamber, patient's vital signs remained stable. Patient was discharged in good condition. 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) Delayed wound healing (Chronic) Malnutrition (Chronic) Venous insufficiency (Chronic) Lymphedema (Chronic) Edema of both legs (Chronic) GERD (gastroesophageal reflux disease) (Chronic) Hypertension (Chronic) Hyperlipemia (Chronic) Morbid obesity with BMI of 45.0-49.9, adult (Chronic) Hyperlipidemia associated with type 2 diabetes mellitus (Chronic) 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 Allergies/Adverse Reactions: Allergies bee venom protein (honey bee) Allergy (Verified 12/13/17 09:30) Swelling metronidazole [From Flagyl] Allergy (Verified 12/13/17 09:30) Itching Home Medications: Ambulatory Orders Medication Instructions Recorded Atorvastatin Calcium [Lipitor] 10 mg PO QHS 01/08/17 Brimonidine Tartrate 0.2% 1 drop EACH EYE BID 01/08/17 [Brimonidine 0.2% 5Ml Bottle] Ergocalciferol [Vitamin D] 50,000 unit PO FR 01/08/17 Gabapentin [Neurontin] 1,600 mg PO QHS 01/08/17 Gabapentin [Neurontin] 600 mg PO DAILY 01/08/17 Insulin U-500 [Humulin R U-500 105 units SC DINNER 01/08/17 ([facility])] Insulin U-500 [Humulin R U-500 105 units SC LUNCH 01/08/17 ([facility])] Insulin U-500 [Humulin R U-500 160 units SC BREAKFAST 01/08/17 ([facility])] Latanoprost 0.005% [Xalatan 1 drop EACH EYE QHS 01/08/17 Opthalmic] Losartan Potassium [Cozaar] 50 mg PO DAILY 01/08/17 Nebivolol HCl [Bystolic (Beta 10 mg PO DAILY 01/08/17 Akira)] Omeprazole [Prilosec] 40 mg PO DAILY 01/08/17 Acetaminophen [Tylenol Tablet] 650 mg PO Q6H PRN PRN tablet 09/07/17 Clopidogrel Bisulfate [Plavix] 75 mg PO DAILY 09/07/17 Menthol/Lanolin/Calamine/Znox 1 applic TOPICAL 0600,2200 tube 09/21/17 [Calmoseptine Ointment] Nutritional Supplement [Madhu - 1 packet PO BIDCM #60 packet 09/21/17 [place] FLAVOR] Nystatin Powder [Mycostatin Powder] 1 applic TOPICAL 0600,2200 bottle 09/21/17 Ferrous Sulfate [Iron] 325 mg PO BID 10/14/17 Clindamycin HCl 300 mg PO [id number] #40 cap 12/13/17 Maternal Family History: Diabetes Paternal Family History: Hypertension Sibling Family History: Diabetes Smoking Status: Former smoker Physical Exam Vital Signs Temp Pulse Resp BP 96.2 F L 124 H 18 122/66 H 04/14/18 10:57 04/14/18 10:57 04/14/18 10:57 04/14/18 10:57 General: Alert, Oriented x3, Cooperative, No apparent distress HEENT: Atraumatic Lungs: Normal air movement Psych/Mental Status: Normal Affect Assessment/Plan Active Problems Ulcer of right lower extremity with fat layer exposed (Chronic) Ulcer of left lower extremity, limited to breakdown of skin (Chronic) Morbid obesity (Chronic) 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
[2018-04-14 12:26] LABS: Bedside Glucose 171 mg/dL (70-110)
[2018-04-15 10:06] VITALS: BP 113/72; BP 120/68; PULSE 84; PULSE 86; RESP 16; RESP 18; TEMP 35; TEMP 35.7
--- NOTE | 2018-04-15 10:14 | PCM.HBO.PN ---
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 Progress: The patient appears to be tolerating hyperbaric oxygen therapy well. This is his 2nd treatment course and his 46th session of hyperbaric oxygen therapy. Tolerance of hyperbaric oxygen therapy: Hyperbaric oxygen therapy was administered as per the facility's protocol. The patient tolerated hyperbaric oxygen therapy well, without complaints or complications. Upon emergence from the hyperbaric chamber, patient's vital signs remained stable. Patient was discharged in good condition. 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) Delayed wound healing (Chronic) Malnutrition (Chronic) Venous insufficiency (Chronic) Lymphedema (Chronic) Edema of both legs (Chronic) GERD (gastroesophageal reflux disease) (Chronic) Hypertension (Chronic) Hyperlipemia (Chronic) Morbid obesity with BMI of 45.0-49.9, adult (Chronic) Hyperlipidemia associated with type 2 diabetes mellitus (Chronic) 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 Allergies/Adverse Reactions: Allergies bee venom protein (honey bee) Allergy (Verified 12/13/17 09:30) Swelling metronidazole [From Flagyl] Allergy (Verified 12/13/17 09:30) Itching Home Medications: Ambulatory Orders Medication Instructions Recorded Atorvastatin Calcium [Lipitor] 10 mg PO QHS 01/08/17 Brimonidine Tartrate 0.2% 1 drop EACH EYE BID 01/08/17 [Brimonidine 0.2% 5Ml Bottle] Ergocalciferol [Vitamin D] 50,000 unit PO FR 01/08/17 Gabapentin [Neurontin] 1,600 mg PO QHS 01/08/17 Gabapentin [Neurontin] 600 mg PO DAILY 01/08/17 Insulin U-500 [Humulin R U-500 105 units SC DINNER 01/08/17 ([facility])] Insulin U-500 [Humulin R U-500 105 units SC LUNCH 01/08/17 ([facility])] Insulin U-500 [Humulin R U-500 160 units SC BREAKFAST 01/08/17 ([facility])] Latanoprost 0.005% [Xalatan 1 drop EACH EYE QHS 01/08/17 Opthalmic] Losartan Potassium [Cozaar] 50 mg PO DAILY 01/08/17 Nebivolol HCl [Bystolic (Beta 10 mg PO DAILY 01/08/17 Akira)] Omeprazole [Prilosec] 40 mg PO DAILY 01/08/17 Acetaminophen [Tylenol Tablet] 650 mg PO Q6H PRN PRN tablet 09/07/17 Clopidogrel Bisulfate [Plavix] 75 mg PO DAILY 09/07/17 Menthol/Lanolin/Calamine/Znox 1 applic TOPICAL 0600,2200 tube 09/21/17 [Calmoseptine Ointment] Nutritional Supplement [Madhu - 1 packet PO BIDCM #60 packet 09/21/17 OR[facility] FLAVOR] Nystatin Powder [Mycostatin Powder] 1 applic TOPICAL 0600,2200 bottle 09/21/17 Ferrous Sulfate [Iron] 325 mg PO BID 10/14/17 Clindamycin HCl 300 mg PO [id number] #40 cap 12/13/17 Maternal Family History: Diabetes Paternal Family History: Hypertension Sibling Family History: Diabetes Smoking Status: Former smoker Physical Exam Vital Signs Temp Pulse Resp BP 96.2 F L 86 18 113/72 04/15/18 10:06 04/15/18 10:06 04/15/18 10:06 04/15/18 10:06 Assessment/Plan Active Problems Ulcer of right lower extremity with fat layer exposed (Chronic) Ulcer of left lower extremity, limited to breakdown of skin (Chronic) Morbid obesity (Chronic) 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
[2018-04-15 15:26] LABS: Bedside Glucose 151 mg/dL (70-110)
[2018-04-15 15:41] LABS: Bedside Glucose 100 mg/dL (70-110)
[2018-04-15 15:41] LABS: Bedside Glucose 97 mg/dL (70-110)
[2018-04-18 09:43] VITALS: BP 128/68; PULSE 86; RESP 16; TEMP 35.7
[2018-04-19 08:06] LABS: Bedside Glucose 128 mg/dL (70-110)
[2018-04-19 08:06] LABS: Bedside Glucose 123 mg/dL (70-110)
[2018-04-19 10:21] LABS: Bedside Glucose 237 mg/dL (70-110)
[2018-04-19 12:00] VITALS: BP 115/56; BP 140/72; PULSE 82; PULSE 88; RESP 16; RESP 18; TEMP 35.8; TEMP 36
[2018-04-19 12:16] LABS: Bedside Glucose 176 mg/dL (70-110)
--- NOTE | 2018-04-19 12:17 | HBO.PN.PCM_ITS ---
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 Progress: The patient appears to be tolerating hyperbaric oxygen therapy well. This is his 2nd treatment course and his 50th session of hyperbaric oxygen therapy. Tolerance of hyperbaric oxygen therapy: Hyperbaric oxygen therapy was administered as per the facility's protocol. The patient tolerated hyperbaric oxygen therapy well, without complaints or complications. Upon emergence from the hyperbaric chamber, patient's vital signs remained stable. Patient was discharged in good condition. 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) Delayed wound healing (Chronic) Malnutrition (Chronic) Venous insufficiency (Chronic) Lymphedema (Chronic) Edema of both legs (Chronic) GERD (gastroesophageal reflux disease) (Chronic) Hypertension (Chronic) Hyperlipemia (Chronic) Morbid obesity with BMI of 45.0-49.9, adult (Chronic) Hyperlipidemia associated with type 2 diabetes mellitus (Chronic) 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 Allergies/Adverse Reactions: Allergies bee venom protein (honey bee) Allergy (Verified 12/13/17 09:30) Swelling metronidazole [From Flagyl] Allergy (Verified 12/13/17 09:30) Itching Home Medications: Ambulatory Orders Medication Instructions Recorded Atorvastatin Calcium [Lipitor] 10 mg PO QHS 01/08/17 Brimonidine Tartrate 0.2% 1 drop EACH EYE BID 01/08/17 [Brimonidine 0.2% 5Ml Bottle] Ergocalciferol [Vitamin D] 50,000 unit PO FR 01/08/17 Gabapentin [Neurontin] 1,600 mg PO QHS 01/08/17 Gabapentin [Neurontin] 600 mg PO DAILY 01/08/17 Insulin U-500 [Humulin R U-500 105 units SC DINNER 01/08/17 ([facility])] Insulin U-500 [Humulin R U-500 105 units SC LUNCH 01/08/17 ([facility])] Insulin U-500 [Humulin R U-500 160 units SC BREAKFAST 01/08/17 ([facility])] Latanoprost 0.005% [Xalatan 1 drop EACH EYE QHS 01/08/17 Opthalmic] Losartan Potassium [Cozaar] 50 mg PO DAILY 01/08/17 Nebivolol HCl [Bystolic (Beta 10 mg PO DAILY 01/08/17 Akira)] Omeprazole [Prilosec] 40 mg PO DAILY 01/08/17 Acetaminophen [Tylenol Tablet] 650 mg PO Q6H PRN PRN tablet 09/07/17 Clopidogrel Bisulfate [Plavix] 75 mg PO DAILY 09/07/17 Menthol/Lanolin/Calamine/Znox 1 applic TOPICAL 0600,2200 tube 09/21/17 [Calmoseptine Ointment] Nutritional Supplement [Madhu - 1 packet PO BIDCM #60 packet 09/21/17 [place] FLAVOR] Nystatin Powder [Mycostatin Powder] 1 applic TOPICAL 0600,2200 bottle 09/21/17 Ferrous Sulfate [Iron] 325 mg PO BID 10/14/17 Clindamycin HCl 300 mg PO [id number] #40 cap 12/13/17 Maternal Family History: Diabetes Paternal Family History: Hypertension Sibling Family History: Diabetes Smoking Status: Former smoker Physical Exam Vital Signs Temp Pulse Resp BP 96.8 F L 88 18 140/72 H 04/19/18 12:00 11/13/18 12:00 04/19/18 12:00 04/19/18 12:00 General: Alert, Oriented x3, Cooperative, No apparent distress, Well developed, Well nourished HEENT: Atraumatic, PERRLA, EOMI, Normocephalic Lungs: Normal air movement Psych/Mental Status: Normal Affect, Appropriate, Alert and oriented to time, place, person, mood and affect Assessment/Plan Active Problems Ulcer of right lower extremity with fat layer exposed (Chronic) Ulcer of left lower extremity, limited to breakdown of skin (Chronic) Morbid obesity (Chronic) 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
[2018-04-20 08:12] VITALS: BP 134/68; PULSE 86; RESP 18; TEMP 35.7
--- NOTE | 2018-04-20 08:52 | PCM.WC.PN ---
(1) Chronic ulcer of right foot with fat layer exposed Status: Chronic Current Visit: Yes Code(s): L97.512 - Non-pressure chronic ulcer of other part of right foot with fat layer exposed (2) Ulcer of right lower extremity with fat layer exposed Status: Chronic Current Visit: Yes Code(s): L97.912 - Non-pressure chronic ulcer of unspecified part of right lower leg with fat layer exposed (3) Ulcer of left lower extremity, limited to breakdown of skin Status: Chronic Current Visit: Yes Code(s): L97.921 - Non-pressure chronic ulcer of unspecified part of left lower leg limited to breakdown of skin (4) Morbid obesity Status: Chronic Current Visit: Yes Code(s): E66.01 - Morbid (severe) obesity due to excess calories (5) BKA stump complication Status: Chronic Current Visit: Yes Code(s): T87.9 - Unspecified complications of amputation stump (6) Type 2 diabetes mellitus with diabetic polyneuropathy Status: Chronic Current Visit: Yes Code(s): E11.42 - Type 2 diabetes mellitus with diabetic polyneuropathy (7) Delayed wound healing Status: Chronic Current Visit: Yes Code(s): T14.8 - Other injury of unspecified body region (8) Malnutrition Status: Chronic Current Visit: Yes Code(s): E46 - Unspecified protein-calorie malnutrition (9) Venous insufficiency Status: Chronic Current Visit: Yes Code(s): I87.2 - Venous insufficiency (chronic) (peripheral) (10) Lymphedema Status: Chronic Current Visit: Yes Code(s): I89.0 - Lymphedema, not elsewhere classified (11) Edema of both legs Status: Chronic Current Visit: Yes Code(s): R60.0 - Localized edema (12) Maceration of skin Status: Acute Current Visit: Yes Code(s): L98.8 - Other specified disorders of the skin and subcutaneous tissue Type of Wound Date of Service: 04/20/18 Chief Complaint: Right foot ulcers. Left stump site maceration History of Wound: 57-year-old white male returns to clinic for follow-up of bilateral leg ulcers and right foot ulcers. He denies fever, chill, nausea, vomiting, loss of appetite. He had multiple advanced wound care product applications. He resume hyperbaric oxygen therapy sessions . He presents in a wheelchair today. He denies odors or redness. He has demonstrated significant delays in healing. He has continued maceration to his left below-knee amputation stump site. He relates he only elevates 50% of the time. He reports he had use his right heel to stomp on a spider at home and is concerned he injured his heel ulcer site. Progress of Wound: Stable right toe area. Improved right heel area. Worsening maceration the left stump site - Physical Exam Vital Signs Temp Pulse Resp BP 96.2 F L 86 18 134/68 H 04/20/18 08:12 04/20/18 08:12 04/20/18 08:12 04/20/18 08:12 General: Alert, Oriented x3, Cooperative Extremities: No cyanosis, Capillary Refill Less than 3 Seconds, No Calf Tenderness - Negative Harry and Badillo sign right, Diminished Peripheral Pulses, Edema - Bilateral lower extremities mild to moderate, - - Left below-knee amputation stump site. Bilateral lymphedema changes Skin: Ulcer/ Wound - No purulence, erythema, streaking, odor, or infection. The maceration to the right toe and interdigital area has resolved. There is an area of devitalized dark eschar noted to the heel ulcer site. The peripheral skin is hairless and atrophic. There is no deep tissue exposed bilateral. The left amputation stump site has some hemorrhagic tissue and serous weeping noted. Wound Measurements and Assessment WC - Nurse 1 - General Ulcer Measurement Start: 04/07/18 10:59 Freq: Status: Active Protocol: Activity Type Activity Date Activity User E-Sign Co-Sign Detail Recorded Client Recorded Date Recorded By Document 04/20/18 08:12 [id number] 04/20/18 08:18 RB 04/20/18 08:12 Wound Center Nurse 1 [Ulcer Assessment] #13 R Med Heel -Combined with other wound No -Current Size (cm) - Length 1 -Current Size (cm) - Width 1.5 -Current Size (cm) - Depth 0.1 -Total Square Cm 1.5 -Photo Taken No -Tunneling No -Undermining/Tunneling No -Circular Undermining No -Exudate Amt Small (1-33%) -Exudate Type Serosanguineous -Wound Margin Distinct, Outline Attached -Granulation Amt Small (1-33%) -Granulation Quality [place] -Slough/Fibrin Yes -Necrosis Amt Large (67-100%) -Necrotic Tissue Type Adherent Slough -Structure Exposed N/A -Texture (Martha-wound Skin Appearance) Assessed Callus -Moisture (Martha-wound Skin Appearance Assessed ) -Color (Martha-wound Skin Appearance) Assessed -Temperature (Martha-wound Skin No Abnormality Appearance) (Pt Warm) -Tenderness on Palpation (Martha-wound No Skin Appearance) -Ulcer Cleansing Wound Cleanser -Foul Odor after Cleansing No -Anesthetic Used 4% Lidocaine Solution #21 Right Foot-Toes w/Metatarsal Head circumfrential -Combined with other wound No -Current Size (cm) - Length 0.6 -Current Size (cm) - Width 0.6 -Current Size (cm) - Depth 0.1 -Total Square Cm 0.36 -Photo Taken No -Tunneling No -Undermining/Tunneling No -Circular Undermining No -Exudate Amt Small (1-33%) -Exudate Type Serosanguineous -Wound Margin Distinct, Outline Attached -Granulation Amt Large (67-100%) -Granulation Quality [place] -Slough/Fibrin Yes -Necrosis Amt Small (1-33%) -Necrotic Tissue Type Adherent Slough -Structure Exposed N/A -Texture (Martha-wound Skin Appearance) Assessed -Moisture (Martha-wound Skin Appearance Assessed ) -Color (Martha-wound Skin Appearance) Assessed -Temperature (Martha-wound Skin No Abnormality Appearance) (Pt Warm) -Tenderness on Palpation (Martha-wound No Skin Appearance) -Ulcer Cleansing Wound Cleanser -Foul Odor after Cleansing No -Anesthetic Used 4% Lidocaine Solution [Edema Assessment] -Lower Limb Edema Present Yes -Right Calf (cm) 40.4 -Right Ankle (cm) 31 -Left Calf (cm) 43.3 -Left Ankle (cm) 30.4 WC - Nurse 2 - General Ulcer CM Notes Start: 04/07/18 10:59 Freq: Status: Active Protocol: Activity Type Activity Date Activity User E-Sign Co-Sign Detail Recorded Client Recorded Date Recorded By Document 04/20/18 08:46 [id number] 04/20/18 08:49 04/20/18 08:46 Wound Center Nurse 2 [Procedure/Treatment] #13 R Med Heel -Time 08:46 -Correct Patient Yes -Correct Side, Site, Position Yes -Correct Procedure Yes -Procedure Performed Yes -Type of Procedure Debridement -Clinical Debridement Subcutaneous -Post Debridement Size (cm) - Length 1.1 -Post Debridement Size (cm) - Width 1.6 -Post Debridement Size (cm) - Depth 0.1 -Total Square Cm 1.76 -Wound/Ulcer Outcome Not Healed -Ulcer Cleansing Rinsed/ Irrigated with Saline -Foul Odor after Cleansing No -Bioengineered Tissue Yes -Type of bioengineered Tissue NU-SHIELD -Expiration Date 12/27/22 -Product Lot Number [id number] -Percent Used 50 -Saline Lot Number [id number] -Topical Lidocaine (%) 4 -Bleeding Controlled with Pressure -Treatment Response Procedure Tolerated Well #21 Right Foot-Toes w/Metatarsal Head circumfrential -Time 08:47 -Correct Patient Yes -Correct Side, Site, Position Yes -Correct Procedure Yes -Procedure Performed Yes -Type of Procedure Debridement -Clinical Debridement Subcutaneous -Post Debridement Size (cm) - Length 0.7 -Post Debridement Size (cm) - Width 0.7 -Post Debridement Size (cm) - Depth 0.1 -Total Square Cm 0.49 -Wound/Ulcer Outcome Not Healed -Ulcer Cleansing Rinsed/ Irrigated with Saline -Foul Odor after Cleansing No -Bioengineered Tissue Yes -Type of bioengineered Tissue NU-SHIELD -Expiration Date 12/27/22 -Product Lot Number [id number] -Percent Used 50 -Saline Lot Number [id number] -Topical Lidocaine (%) 4 -Bleeding Controlled with Pressure -Treatment Response Procedure Tolerated Well [See Physician Procedure note for Specifics] Pain Scale: 0-10 Numeric [Pain] -Is Patient Pain Free? Yes Musculoskeletal: No Tenderness to Palpation of Joints or Extremities, Muscle Wasting Neurological: - - Lack of epicritic sensation light touch bilateral extremities lower Psych/Mental Status: Normal Affect, Appropriate Debridement Note Post-Debridement Measurements/Treatment WC - Nurse 2 - General Ulcer CM Notes Start: 04/07/18 10:59 Freq: Status: Active Protocol: Activity Type Activity Date Activity User E-Sign Co-Sign Detail Recorded Client Recorded Date Recorded By Document 04/13/18 08:52 TM [id number] 04/13/18 08:54 TM Document 04/20/18 08:46 TM [id number] 04/20/18 08:49 TM 11/07/18 11/14/18 08:52 08:46 Wound Center Nurse 2 #13 R Med Heel -Time 08:53 08:46 -Correct Patient Yes Yes -Correct Side, Site, Position Yes Yes -Correct Procedure Yes Yes -Procedure Performed Yes Yes -Type of Procedure Debridement Debridement -Clinical Debridement Subcutaneous Subcutaneous -Post Debridement Size (cm) - Length 1.5 1.1 -Post Debridement Size (cm) - Width 1.9 1.6 -Post Debridement Size (cm) - Depth 0.1 0.1 -Total Square Cm 2.85 1.76 -Wound/Ulcer Outcome Not Healed Not Healed -Ulcer Cleansing Rinsed/ Rinsed/ Irrigated with Irrigated with Saline Saline -Foul Odor after Cleansing No No -Bioengineered Tissue Yes Yes -Type of bioengineered Tissue NU-SHIELD NU-SHIELD -Expiration Date 03/24/23 12/27/22 -Product Lot Number [id number] -Percent Used 100 50 -Saline Lot Number [id number] -Topical Lidocaine (%) 4 4 -Bleeding Controlled with Pressure Pressure -Treatment Response Procedure Procedure Tolerated Well Tolerated Well #21 Right Foot-Toes w/Metatarsal Head circumfrential -Time 08:53 08:47 -Correct Patient Yes Yes -Correct Side, Site, Position Yes Yes -Correct Procedure Yes Yes -Procedure Performed Yes Yes -Type of Procedure Debridement Debridement -Clinical Debridement Subcutaneous Subcutaneous -Post Debridement Size (cm) - Length 4.1 0.7 -Post Debridement Size (cm) - Width 0.9 0.7 -Post Debridement Size (cm) - Depth 0.1 0.1 -Total Square Cm 3.69 0.49 -Wound/Ulcer Outcome Not Healed -Ulcer Cleansing Rinsed/ Rinsed/ Irrigated with Irrigated with Saline Saline -Foul Odor after Cleansing No No -Bioengineered Tissue No Yes -Type of bioengineered Tissue NU-SHIELD -Expiration Date 12/27/22 -Product Lot Number [id number] -Percent Used 50 -Saline Lot Number [id number] -Topical Lidocaine (%) 4 4 -Bleeding Controlled with Pressure Pressure -Treatment Response Procedure Procedure Tolerated Well Tolerated Well Pain Scale: 0-10 Numeric Is Patient Pain Free? Yes Yes Wound debrided: heel Laterality: Right Wound Grade/Stage: grade 3 Type of Debridement: Excisional debridement Anesthesia Used: 4% Lidocaine Solution Depth: in the subcutaneous layer Percentage of wound debrided: 100 Instrument Used: #15 blade Tissue Removed: fibrous, devitalized subcutaneous, biofilm, slough Severity: Fat Layer Exposed Amount of bleeding with debridement: Mild Bleeding Controlled with: Pressure Patient tolerated procedure well - Additional Wound Wound debrided: toe cluster Laterality: Right Wound Grade/Stage: grade 1 Type of Debridement: Excisional debridement Anesthesia Used: 4% Lidocaine Solution Depth: in the subcutaneous layer Percentage of wound debrided: 100 Instrument Used: #15 blade Tissue Removed: fibrous, devitalized subcutaneous, biofilm, slough Severity: Fat Layer Exposed Amount of bleeding with debridement: Mild Bleeding Controlled with: Pressure Patient tolerated procedure: Patient tolerated procedure well Assessment/Plan Active Problems Chronic ulcer of right foot with fat layer exposed (Chronic) Maceration of skin (Acute) Ulcer of right lower extremity with fat layer exposed (Chronic) Ulcer of left lower extremity, limited to breakdown of skin (Chronic) Morbid obesity (Chronic) BKA stump complication (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 right heel ulcer muscle involved and exposed fascia without infection noted today (previous grade 3); s/p surgical debridement and application of advance wound care products (amniofil and epicord). Left below-knee amputation sub-hemorrhagic tissue with continued weeping noted; no infection. Lymphedema. Ulcer left stump site with skin layer exposed, no infection. Chronic lower extremity edema and venous insufficiency. Morbid obesity. Type 2 diabetes uncontrolled with peripheral neuropathy. CKD. Hypertension. Left below-knee amputation with maceration. Malnutrition. Delayed wound healing. Nonadherence to treatment plan Plan: I reviewed and discussed his case debridement done as documented above in the clinical panel; this procedure was well tolerated. Additional advanced product application prior authorization was approved and nushield was applied today according to standard protocol. This is medically necessary and will facilitate a more timely healing course. Verbal consent was obtained. This was only applied to the heel today. This was secured with steri strips and a wound veil to the right heel and toe regions. To keep this intact until follow up next week. I recommend changing this with dry gauze over the ulcer sites and Adaptic to the left stump site to facilitate maceration reduction. Okay to discontinue Betadine use at this time. Continue compression and elevate lower extreity when sitting and in bed. Optimal blood sugar contol. We discussed compliance and I recommend elevating only 75% of the time. To avoid trauma to the right foot as he sustained last week. Continue protein suppplements and increased protein in diet. To continue hyperbaric oxygen therapy as scheduled on complaint basis. I encouraged continued use. To improve compliance with compression pumps. I advised him to at least get a second session even if it is reduced in time each day. He reports he is doing this and I recommend he continues. Follow up in 1 week with at the wound healing center or call sooner if he has any questions or concerns.
[2018-04-20 10:14] VITALS: BP 129/67; BP 138/80; PULSE 68; PULSE 83; RESP 16; RESP 18; TEMP 36.5; TEMP 37.1
--- NOTE | 2018-04-20 11:03 | HBO.PN.PCM_ITS ---
History of Present Illness Presenting Chief Complaint: Right foot ulcers. Left stump site maceration DEL ABRRIOS is a 57 year old currently undergoing hyperbaric oxygen therapy for diabetic toe and heel ulcers with necrosis of bone, Brooks Grade 3. Progress: The patient appears to be tolerating hyperbaric oxygen therapy well. This is his 2nd treatment course and his 51st session of hyperbaric oxygen therapy. Tolerance of hyperbaric oxygen therapy: Hyperbaric oxygen therapy was administered as per the facility's protocol. The patient tolerated hyperbaric oxygen therapy well, without complaints or complications. Upon emergence from the hyperbaric chamber, patient's vital signs remained stable. Patient was discharged in good condition. 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) Delayed wound healing (Chronic) Malnutrition (Chronic) Venous insufficiency (Chronic) Lymphedema (Chronic) Edema of both legs (Chronic) GERD (gastroesophageal reflux disease) (Chronic) Hypertension (Chronic) Hyperlipemia (Chronic) Morbid obesity with BMI of 45.0-49.9, adult (Chronic) Hyperlipidemia associated with type 2 diabetes mellitus (Chronic) 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 Allergies/Adverse Reactions: Allergies bee venom protein (honey bee) Allergy (Verified 12/13/17 09:30) Swelling metronidazole [From Flagyl] Allergy (Verified 12/13/17 09:30) Itching Home Medications: Ambulatory Orders Medication Instructions Recorded Atorvastatin Calcium [Lipitor] 10 mg PO QHS 01/08/17 Brimonidine Tartrate 0.2% 1 drop EACH EYE BID 01/08/17 [Brimonidine 0.2% 5Ml Bottle] Ergocalciferol [Vitamin D] 50,000 unit PO FR 01/08/17 Gabapentin [Neurontin] 1,600 mg PO QHS 01/08/17 Gabapentin [Neurontin] 600 mg PO DAILY 01/08/17 Insulin U-500 [Humulin R U-500 105 units SC DINNER 01/08/17 ([facility])] Insulin U-500 [Humulin R U-500 105 units SC LUNCH 01/08/17 ([facility])] Insulin U-500 [Humulin R U-500 160 units SC BREAKFAST 01/08/17 ([facility])] Latanoprost 0.005% [Xalatan 1 drop EACH EYE QHS 01/08/17 Opthalmic] Losartan Potassium [Cozaar] 50 mg PO DAILY 01/08/17 Nebivolol HCl [Bystolic (Beta 10 mg PO DAILY 01/08/17 [facility])] Omeprazole [Prilosec] 40 mg PO DAILY 01/08/17 Acetaminophen [Tylenol Tablet] 650 mg PO Q6H PRN PRN tablet 09/07/17 Clopidogrel Bisulfate [Plavix] 75 mg PO DAILY 09/07/17 Menthol/Lanolin/Calamine/Znox 1 applic TOPICAL 0600,2200 tube 09/21/17 [Calmoseptine Ointment] Nutritional Supplement [Madhu - 1 packet PO BIDCM #60 packet 09/21/17 [facility]] Nystatin Powder [Mycostatin Powder] 1 applic TOPICAL 0600,2200 bottle 09/21/17 Ferrous Sulfate [Iron] 325 mg PO BID 10/14/17 Clindamycin HCl 300 mg PO [id number] #40 cap 12/13/17 Maternal Family History: Diabetes Paternal Family History: Hypertension Sibling Family History: Diabetes Smoking Status: Former smoker Physical Exam Vital Signs Temp Pulse Resp BP 98.8 F 68 18 138/80 H 11/14/18 10:14 04/20/18 10:14 04/20/18 10:14 04/20/18 10:14 General: Alert, Oriented x3, Cooperative, No apparent distress HEENT: Atraumatic Lungs: Normal air movement Psych/Mental Status: Normal Affect Assessment/Plan Active Problems Chronic ulcer of right foot with fat layer exposed (Chronic) Maceration of skin (Acute) Ulcer of right lower extremity with fat layer exposed (Chronic) Ulcer of left lower extremity, limited to breakdown of skin (Chronic) Morbid obesity (Chronic) 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
[2018-04-22 13:56] LABS: Bedside Glucose 215 mg/dL (70-110)
[2018-04-25 09:37] VITALS: BP 102/52; BP 112/58; PULSE 87; PULSE 89; RESP 16; RESP 18; TEMP 35.3; TEMP 35.8
--- NOTE | 2018-04-26 10:28 | PCM.HBO.PN ---
History of Present Illness Date of Service: 04/25/18 Presenting Chief Complaint: Right foot ulcers. Left stump site maceration DEL BARRIOS is a 57 year old currently undergoing hyperbaric oxygen therapy for diabetic toe and heel ulcers with necrosis of bone, Brooks Grade 3. Progress: The patient appears to be tolerating hyperbaric oxygen therapy well. This is his 2nd treatment course and his 53st session of hyperbaric oxygen therapy. Tolerance of hyperbaric oxygen therapy: Hyperbaric oxygen therapy was administered as per the facility's protocol. The patient tolerated hyperbaric oxygen therapy well, without complaints or complications. Upon emergence from the hyperbaric chamber, patient's vital signs remained stable. Patient was discharged in good condition. 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) Delayed wound healing (Chronic) Malnutrition (Chronic) Venous insufficiency (Chronic) Lymphedema (Chronic) Edema of both legs (Chronic) GERD (gastroesophageal reflux disease) (Chronic) Hypertension (Chronic) Hyperlipemia (Chronic) Morbid obesity with BMI of 45.0-49.9, adult (Chronic) Hyperlipidemia associated with type 2 diabetes mellitus (Chronic) 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 Allergies/Adverse Reactions: Allergies bee venom protein (honey bee) Allergy (Verified 12/13/17 09:30) Swelling metronidazole [From Flagyl] Allergy (Verified 12/13/17 09:30) Itching Home Medications: Ambulatory Orders Medication Instructions Recorded Atorvastatin Calcium [Lipitor] 10 mg PO QHS 01/08/17 Brimonidine Tartrate 0.2% 1 drop EACH EYE BID 01/08/17 [Brimonidine 0.2% 5Ml Bottle] Ergocalciferol [Vitamin D] 50,000 unit PO FR 01/08/17 Gabapentin [Neurontin] 1,600 mg PO QHS 01/08/17 Gabapentin [Neurontin] 600 mg PO DAILY 01/08/17 Insulin U-500 [Humulin R U-500 105 units SC DINNER 01/08/17 ([facility])] Insulin U-500 [Humulin R U-500 105 units SC LUNCH 01/08/17 ([facility])] Insulin U-500 [Humulin R U-500 160 units SC BREAKFAST 01/08/17 ([facility])] Latanoprost 0.005% [Xalatan 1 drop EACH EYE QHS 01/08/17 Opthalmic] Losartan Potassium [Cozaar] 50 mg PO DAILY 01/08/17 Nebivolol HCl [Bystolic (Beta 10 mg PO DAILY 01/08/17 Akira)] Omeprazole [Prilosec] 40 mg PO DAILY 01/08/17 Acetaminophen [Tylenol Tablet] 650 mg PO Q6H PRN PRN tablet 09/07/17 Clopidogrel Bisulfate [Plavix] 75 mg PO DAILY 09/07/17 Menthol/Lanolin/Calamine/Znox 1 applic TOPICAL 0600,2200 tube 09/21/17 [Calmoseptine Ointment] Nutritional Supplement [Madhu - 1 packet PO BIDCM #60 packet 09/21/17 ORANGE FLAVOR] Nystatin Powder [Mycostatin Powder] 1 applic TOPICAL 0600,2200 bottle 09/21/17 Ferrous Sulfate [Iron] 325 mg PO BID 10/14/17 Clindamycin HCl 300 mg PO [id number] #40 cap 12/13/17 Maternal Family History: Diabetes Paternal Family History: Hypertension Sibling Family History: Diabetes Smoking Status: Former smoker Physical Exam Vital Signs Temp Pulse Resp BP 96.4 F L 89 18 112/58 L 04/25/18 09:37 04/25/18 09:37 04/25/18 09:37 04/25/18 09:37 General: Alert, Oriented x3, Cooperative HEENT: Atraumatic, PERRLA, TM's Clear Lungs: Clear to auscultation Cardiovascular: Regular rate Psych/Mental Status: Normal Affect, Appropriate Assessment/Plan Active Problems Chronic ulcer of right foot with fat layer exposed (Chronic) Maceration of skin (Acute) Ulcer of right lower extremity with fat layer exposed (Chronic) Ulcer of left lower extremity, limited to breakdown of skin (Chronic) Morbid obesity (Chronic) 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 Code Visit 86019
[2018-04-26 10:30] VITALS: BP 122/50; BP 133/68; PULSE 89; PULSE 90; RESP 18; TEMP 35.6; TEMP 36
--- NOTE | 2018-04-26 11:45 | HBO.PN.PCM_ITS ---
History of Present Illness Presenting Chief Complaint: Right foot ulcers. Left stump site maceration DEL BARRIOS is a 57 year old currently undergoing hyperbaric oxygen therapy for diabetic toe and heel ulcers with necrosis of bone, Brooks Grade 3. Progress: The patient appears to be tolerating hyperbaric oxygen therapy well. This is his 2nd treatment course and his 53st session of hyperbaric oxygen therapy. Tolerance of hyperbaric oxygen therapy: Hyperbaric oxygen therapy was administered as per the facility's protocol. The patient tolerated hyperbaric oxygen therapy well, without complaints or complications. Upon emergence from the hyperbaric chamber, patient's vital signs remained stable. Patient was discharged in good condition. 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) Delayed wound healing (Chronic) Malnutrition (Chronic) Venous insufficiency (Chronic) Lymphedema (Chronic) Edema of both legs (Chronic) GERD (gastroesophageal reflux disease) (Chronic) Hypertension (Chronic) Hyperlipemia (Chronic) Morbid obesity with BMI of 45.0-49.9, adult (Chronic) Hyperlipidemia associated with type 2 diabetes mellitus (Chronic) 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 Allergies/Adverse Reactions: Allergies bee venom protein (honey bee) Allergy (Verified 12/13/17 09:30) Swelling metronidazole [From Flagyl] Allergy (Verified 12/13/17 09:30) Itching Home Medications: Ambulatory Orders Medication Instructions Recorded Atorvastatin Calcium [Lipitor] 10 mg PO QHS 01/08/17 Brimonidine Tartrate 0.2% 1 drop EACH EYE BID 01/08/17 [Brimonidine 0.2% 5Ml Bottle] Ergocalciferol [Vitamin D] 50,000 unit PO FR 01/08/17 Gabapentin [Neurontin] 1,600 mg PO QHS 01/08/17 Gabapentin [Neurontin] 600 mg PO DAILY 01/08/17 Insulin U-500 [Humulin R U-500 105 units SC DINNER 01/08/17 ([facility])] Insulin U-500 [Humulin R U-500 105 units SC LUNCH 01/08/17 ([facility])] Insulin U-500 [Humulin R U-500 160 units SC BREAKFAST 01/08/17 ([facility])] Latanoprost 0.005% [Xalatan 1 drop EACH EYE QHS 01/08/17 Opthalmic] Losartan Potassium [Cozaar] 50 mg PO DAILY 01/08/17 Nebivolol HCl [Bystolic (Beta 10 mg PO DAILY 01/08/17 Akira)] Omeprazole [Prilosec] 40 mg PO DAILY 01/08/17 Acetaminophen [Tylenol Tablet] 650 mg PO Q6H PRN PRN tablet 09/07/17 Clopidogrel Bisulfate [Plavix] 75 mg PO DAILY 09/07/17 Menthol/Lanolin/Calamine/Znox 1 applic TOPICAL 0600,2200 tube 09/21/17 [Calmoseptine Ointment] Nutritional Supplement [Madhu - 1 packet PO BIDCM #60 packet 09/21/17 [place] FLAVOR] Nystatin Powder [Mycostatin Powder] 1 applic TOPICAL 0600,2200 bottle 09/21/17 Ferrous Sulfate [Iron] 325 mg PO BID 10/14/17 Clindamycin HCl 300 mg PO [id number] #40 cap 12/13/17 Maternal Family History: Diabetes Paternal Family History: Hypertension Sibling Family History: Diabetes Smoking Status: Former smoker Physical Exam Vital Signs Temp Pulse Resp BP 96.8 F L 90 18 122/50 H 04/26/18 10:30 04/26/18 10:30 04/26/18 10:30 04/26/18 10:30 General: Alert, Oriented x3, Cooperative, No apparent distress, Well developed, Well nourished HEENT: Atraumatic, PERRLA, EOMI, Normocephalic Lungs: Normal air movement Psych/Mental Status: Normal Affect, Appropriate, Alert and oriented to time, place, person, mood and affect Assessment/Plan Active Problems Chronic ulcer of right foot with fat layer exposed (Chronic) Maceration of skin (Acute) Ulcer of right lower extremity with fat layer exposed (Chronic) Ulcer of left lower extremity, limited to breakdown of skin (Chronic) Morbid obesity (Chronic) 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
[2018-04-27 08:06] VITALS: BP 141/71; PULSE 89; RESP 18; TEMP 36.1
--- NOTE | 2018-04-27 09:12 | PCM.WC.PN ---
(1) Chronic ulcer of right foot with fat layer exposed Status: Chronic Current Visit: Yes Code(s): L97.512 - Non-pressure chronic ulcer of other part of right foot with fat layer exposed (2) Ulcer of right lower extremity with fat layer exposed Status: Chronic Current Visit: Yes Code(s): L97.912 - Non-pressure chronic ulcer of unspecified part of right lower leg with fat layer exposed (3) Ulcer of left lower extremity, limited to breakdown of skin Status: Chronic Current Visit: Yes Code(s): L97.921 - Non-pressure chronic ulcer of unspecified part of left lower leg limited to breakdown of skin (4) Morbid obesity Status: Chronic Current Visit: Yes Code(s): E66.01 - Morbid (severe) obesity due to excess calories (5) BKA stump complication Status: Chronic Current Visit: Yes Code(s): T87.9 - Unspecified complications of amputation stump (6) Type 2 diabetes mellitus with diabetic polyneuropathy Status: Chronic Current Visit: Yes Code(s): E11.42 - Type 2 diabetes mellitus with diabetic polyneuropathy (7) Delayed wound healing Status: Chronic Current Visit: Yes Code(s): T14.8 - Other injury of unspecified body region (8) Malnutrition Status: Chronic Current Visit: Yes Code(s): E46 - Unspecified protein-calorie malnutrition (9) Venous insufficiency Status: Chronic Current Visit: Yes Code(s): I87.2 - Venous insufficiency (chronic) (peripheral) (10) Lymphedema Status: Chronic Current Visit: Yes Code(s): I89.0 - Lymphedema, not elsewhere classified (11) Edema of both legs Status: Chronic Current Visit: Yes Code(s): R60.0 - Localized edema (12) Maceration of skin Status: Acute Current Visit: Yes Code(s): L98.8 - Other specified disorders of the skin and subcutaneous tissue Type of Wound Date of Service: 04/27/18 Chief Complaint: Right foot ulcers. Left stump site maceration History of Wound: 57-year-old white male returns to clinic for follow-up of bilateral leg ulcers and right foot ulcers. He denies fever, chill, nausea, vomiting, loss of appetite. He had multiple advanced wound care product applications. He continues with hyperbaric oxygen therapy sessions . He presents in a wheelchair today. He denies odors or redness. He has demonstrated significant delays in healing. He has continued maceration to his left below-knee amputation stump site. He denies new injuries this past week. Progress of Wound: Stable right toe area. Stable right heel area. Continued maceration the left stump site - Physical Exam Vital Signs Temp Pulse Resp BP 97 F L 89 18 141/71 H 04/27/18 08:06 04/27/18 08:06 04/27/18 08:06 04/27/18 08:06 General: Alert, Oriented x3, Cooperative Extremities: Capillary Refill Less than 3 Seconds, No Calf Tenderness, Diminished Peripheral Pulses, Edema, - - Below-knee amputation Skin: Ulcer/ Wound - No purulence, erythema, streaking, odor, or acute infection bilateral. Continue maceration with some hemorrhagic tissue exposure increased size to the left below-knee amputation stump site. There is no necrotic tissue changes to the right foot today. There is no interdigital maceration. The peripheral skin is hairless and atrophic bilateral lower extremities and there is continued lower extremity hyperpigmentation on the right and also to the stump site on the left consistent with chronic swelling changes Wound Measurements and Assessment WC - Nurse 1 - General Ulcer Measurement Start: 04/07/18 10:59 Freq: Status: Active Protocol: Activity Type Activity Date Activity User E-Sign Co-Sign Detail Recorded Client Recorded Date Recorded By Document 04/27/18 08:06 [id number] 04/27/18 08:16 DL 04/27/18 08:06 Wound Center Nurse 1 [Ulcer Assessment] #13 R Med Heel -Combined with other wound No -Current Size (cm) - Length 2.1 -Current Size (cm) - Width 1.7 -Current Size (cm) - Depth 0.1 -Total Square Cm 3.57 -Photo Taken No -Tunneling No -Undermining/Tunneling No -Circular Undermining No -Exudate Amt Small (1-33%) -Exudate Type Serosanguineous -Wound Margin Distinct, Outline Attached -Granulation Amt None Present (0 %) -Slough/Fibrin Yes -Necrosis Amt Large (67-100%) -Necrotic Tissue Type Adherent Slough -Texture (Martha-wound Skin Appearance) Callus Scarring -Moisture (Martha-wound Skin Appearance Assessed ) -Color (Martha-wound Skin Appearance) Assessed Hemosiderin Staining -Temperature (Martha-wound Skin No Abnormality Appearance) (Pt Warm) -Tenderness on Palpation (Martha-wound No Skin Appearance) -Ulcer Cleansing Wound Cleanser -Foul Odor after Cleansing No -Anesthetic Used 4% Lidocaine Solution #21 Right Foot-Toes w/Metatarsal Head circumfrential -Combined with other wound No -Current Size (cm) - Length 4.4 -Current Size (cm) - Width 0.4 -Current Size (cm) - Depth 0.1 -Total Square Cm 1.76 -Photo Taken No -Epithelialization Small 1-33% -Tunneling No -Undermining/Tunneling No -Circular Undermining No -Exudate Amt Small (1-33%) -Exudate Type Serosanguineous -Wound Margin Distinct, Outline Attached -Granulation Amt Large (67-100%) -Granulation Quality [place] -Slough/Fibrin No -Necrosis Amt None Present (0 %) -Texture (Martha-wound Skin Appearance) Scarring -Moisture (Martha-wound Skin Appearance Maceration ) -Color (Martha-wound Skin Appearance) Palor -Temperature (Martha-wound Skin No Abnormality Appearance) (Pt Warm) -Tenderness on Palpation (Martha-wound No Skin Appearance) -Ulcer Cleansing Wound Cleanser -Foul Odor after Cleansing No -Anesthetic Used 4% Lidocaine Solution [Edema Assessment] -Lower Limb Edema Present Yes -Right Calf (cm) 37.3 -Right Ankle (cm) 30 -Left Calf (cm) 42.5 WC - Nurse 2 - General Ulcer CM Notes Start: 04/07/18 10:59 Freq: Status: Active Protocol: Activity Type Activity Date Activity User E-Sign Co-Sign Detail Recorded Client Recorded Date Recorded By Document 04/27/18 08:44 [id number] 04/27/18 08:47 04/27/18 08:44 Wound Center Nurse 2 [Procedure/Treatment] #13 R Med Heel -Time 08:44 -Correct Patient Yes -Correct Side, Site, Position Yes -Correct Procedure Yes -Procedure Performed Yes -Type of Procedure Debridement -Clinical Debridement Subcutaneous -Post Debridement Size (cm) - Length 2.2 -Post Debridement Size (cm) - Width 1.8 -Post Debridement Size (cm) - Depth 0.1 -Total Square Cm 3.96 -Wound/Ulcer Outcome Not Healed -Ulcer Cleansing Rinsed/ Irrigated with Saline -Foul Odor after Cleansing No -Bioengineered Tissue Yes -Type of bioengineered Tissue [facility] -Expiration Date 09/15/22 -Product Lot Number [id number] -Percent Used 50 -Saline Lot Number [id number] -Topical Lidocaine (%) 4 -Bleeding Controlled with Pressure -Treatment Response Procedure Tolerated Well #21 Right Foot-Toes w/Metatarsal Head circumfrential -Time 08:45 -Correct Patient Yes -Correct Side, Site, Position Yes -Correct Procedure Yes -Procedure Performed Yes -Type of Procedure Debridement -Clinical Debridement Subcutaneous -Post Debridement Size (cm) - Length 4.5 -Post Debridement Size (cm) - Width 0.5 -Post Debridement Size (cm) - Depth 0.1 -Total Square Cm 2.25 -Wound/Ulcer Outcome Not Healed -Ulcer Cleansing Rinsed/ Irrigated with Saline -Foul Odor after Cleansing No -Bioengineered Tissue Yes -Type of bioengineered Tissue [facility] -Expiration Date 09/15/22 -Product Lot Number [id number] -Percent Used 50 -Saline Lot Number [id number] -Topical Lidocaine (%) 4 -Bleeding Controlled with Pressure -Treatment Response Procedure Tolerated Well [See Physician Procedure note for Specifics] Pain Scale: 0-10 Numeric [Pain] -Is Patient Pain Free? Yes Musculoskeletal: No Tenderness to Palpation of Joints or Extremities, Muscle Wasting Neurological: - - Lack of epicritic sensation light touch Psych/Mental Status: Normal Affect, Appropriate Debridement Note Post-Debridement Measurements/Treatment WC - Nurse 2 - General Ulcer CM Notes Start: 04/07/18 10:59 Freq: Status: Active Protocol: Activity Type Activity Date Activity User E-Sign Co-Sign Detail Recorded Client Recorded Date Recorded By Document 04/13/18 08:52 TM [id number] 04/13/18 08:54 TM Document 04/20/18 08:46 [id number] 04/20/18 08:49 TM Document 04/27/18 08:44 [id number] 04/27/18 08:47 TM 04/13/18 04/20/18 04/27/18 08:52 08:46 08:44 Wound Center Nurse 2 #13 R Med Heel -Time 08:53 08:46 08:44 -Correct Patient Yes Yes Yes -Correct Side, Site, Position Yes Yes Yes -Correct Procedure Yes Yes Yes -Procedure Performed Yes Yes Yes -Type of Procedure Debridement Debridement Debridement -Clinical Debridement Subcutaneous Subcutaneous Subcutaneous -Post Debridement Size (cm) - Length 1.5 1.1 2.2 -Post Debridement Size (cm) - Width 1.9 1.6 1.8 -Post Debridement Size (cm) - Depth 0.1 0.1 0.1 -Total Square Cm 2.85 1.76 3.96 -Wound/Ulcer Outcome Not Healed Not Healed Not Healed -Ulcer Cleansing Rinsed/ Rinsed/ Rinsed/ Irrigated with Irrigated with Irrigated with Saline Saline Saline -Foul Odor after Cleansing No No No -Bioengineered Tissue Yes Yes Yes -Type of bioengineered Tissue -[facility] -Expiration Date 03/24/23 12/27/22 09/15/22 -Product Lot Number [id number] -Percent Used 100 50 50 -Saline Lot Number [id number] -Topical Lidocaine (%) 4 4 4 -Bleeding Controlled with Pressure Pressure Pressure -Treatment Response Procedure Procedure Procedure Tolerated Well Tolerated Well Tolerated Well #21 Right Foot-Toes w/Metatarsal Head circumfrential -Time 08:53 08:47 08:45 -Correct Patient Yes Yes Yes -Correct Side, Site, Position Yes Yes Yes -Correct Procedure Yes Yes Yes -Procedure Performed Yes Yes Yes -Type of Procedure Debridement Debridement Debridement -Clinical Debridement Subcutaneous Subcutaneous Subcutaneous -Post Debridement Size (cm) - Length 4.1 0.7 4.5 -Post Debridement Size (cm) - Width 0.9 0.7 0.5 -Post Debridement Size (cm) - Depth 0.1 0.1 0.1 -Total Square Cm 3.69 0.49 2.25 -Wound/Ulcer Outcome Not Healed Not Healed -Ulcer Cleansing Rinsed/ Rinsed/ Rinsed/ Irrigated with Irrigated with Irrigated with Saline Saline Saline -Foul Odor after Cleansing No No No -Bioengineered Tissue No Yes Yes -[facility] -Expiration Date 12/27/22 09/15/22 -Product Lot Number [id number] -Percent Used 50 50 -Saline Lot Number [id number] -Topical Lidocaine (%) 4 4 4 -Bleeding Controlled with Pressure Pressure Pressure -Treatment Response Procedure Procedure Procedure Tolerated Well Tolerated Well Tolerated Well Pain Scale: 0-10 Numeric Is Patient Pain Free? Yes Yes Yes Wound debrided: heel Laterality: Right Wound Grade/Stage: grade 3 Type of Debridement: Excisional debridement Anesthesia Used: 4% Lidocaine Solution Depth: in the subcutaneous layer Percentage of wound debrided: 100 Instrument Used: #15 blade Tissue Removed: fibrous, devitalized subcutaneous, biofilm, slough Severity: Fat Layer Exposed Amount of bleeding with debridement: Mild Bleeding Controlled with: Pressure Patient tolerated procedure well - Additional Wound Wound debrided: toe Laterality: Right Wound Grade/Stage: grade 1 Type of Debridement: Excisional debridement Anesthesia Used: 4% Lidocaine Solution Depth: in the subcutaneous layer Percentage of wound debrided: 100 Instrument Used: #15 blade Tissue Removed: fibrous, devitalized subcutaneous, biofilm, slough Severity: Fat Layer Exposed Amount of bleeding with debridement: Mild Bleeding Controlled with: Pressure Patient tolerated procedure: Patient tolerated procedure well Assessment/Plan Active Problems Chronic ulcer of right foot with fat layer exposed (Chronic) Maceration of skin (Acute) Ulcer of right lower extremity with fat layer exposed (Chronic) Ulcer of left lower extremity, limited to breakdown of skin (Chronic) Morbid obesity (Chronic) BKA stump complication (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 right heel ulcer muscle involved and exposed fascia without infection noted today (previous grade 3); s/p surgical debridement and application of advance wound care products (amniofil and epicord). Left below-knee amputation sub-hemorrhagic tissue with continued weeping noted; no infection ; worse status. Lymphedema. Chronic lower extremity edema and venous insufficiency. Morbid obesity. Type 2 diabetes uncontrolled with peripheral neuropathy. CKD. Hypertension. Malnutrition. Delayed wound healing. Nonadherence to treatment plan Plan: I reviewed and discussed his case debridement done as documented above in the clinical panel; this procedure was well tolerated. Additional advanced product application prior authorization was approved and nushield was applied today according to standard protocol. This is medically necessary and will facilitate a more timely healing course. Verbal consent was obtained. This was applied to the heel and toe today. This was secured with steri strips and a wound veil to the right heel and toe regions. To keep this intact until follow up next week. I recommend changing this with dry gauze over the ulcer sites and Aquacel ag to the left stump site to facilitate maceration reduction. Continue compression and elevate lower extremity when sitting and in bed. Optimal blood sugar contol. We discussed compliance and I recommend elevating only 75% of the time. To avoid trauma to the right foot as he sustained last week. Continue protein suppplements and increased protein in diet. To continue hyperbaric oxygen therapy as scheduled on complaint basis. I encouraged continued use. To improve compliance with compression pumps. I advised him to at least get a second session even if it is reduced in time each day. He reports he is doing this and I recommend he continues. Follow up in 1 week with at the wound healing center or call sooner if he has any questions or concerns.
--- NOTE | 2018-04-27 09:25 | PN.PCM_ITS ---
(1) Chronic ulcer of right foot with fat layer exposed Status: Chronic Current Visit: Yes Code(s): L97.512 - Non-pressure chronic ulcer of other part of right foot with fat layer exposed (2) Ulcer of right lower extremity with fat layer exposed Status: Chronic Current Visit: Yes Code(s): L97.912 - Non-pressure chronic ulcer of unspecified part of right lower leg with fat layer exposed (3) Ulcer of left lower extremity, limited to breakdown of skin Status: Chronic Current Visit: Yes Code(s): L97.921 - Non-pressure chronic ulcer of unspecified part of left lower leg limited to breakdown of skin (4) Morbid obesity Status: Chronic Current Visit: Yes Code(s): E66.01 - Morbid (severe) obesity due to excess calories (5) BKA stump complication Status: Chronic Current Visit: Yes Code(s): T87.9 - Unspecified complications of amputation stump (6) Type 2 diabetes mellitus with diabetic polyneuropathy Status: Chronic Current Visit: Yes Code(s): E11.42 - Type 2 diabetes mellitus with diabetic polyneuropathy (7) Delayed wound healing Status: Chronic Current Visit: Yes Code(s): T14.8 - Other injury of unspecified body region (8) Malnutrition Status: Chronic Current Visit: Yes Code(s): E46 - Unspecified protein- calorie malnutrition (9) Venous insufficiency Status: Chronic Current Visit: Yes Code(s): I87.2 - Venous insufficiency (chronic) (peripheral) (10) Lymphedema Status: Chronic Current Visit: Yes Code(s): I89.0 - Lymphedema, not elsewhere classified (11) Edema of both legs Status: Chronic Current Visit: Yes Code(s): R60.0 - Localized edema (12) Maceration of skin Status: Acute Current Visit: Yes Code(s): L98.8 - Other specified disorders of the skin and subcutaneous tissue Type of Wound Date of Service: 04/27/18 Chief Complaint: Right foot ulcers. Left stump site maceration History of Wound: 57-year-old white male returns to clinic for follow-up of bilateral leg ulcers and right foot ulcers. He denies fever, chill, nausea, vomiting, loss of appetite. He had multiple advanced wound care product applications. He continues with hyperbaric oxygen therapy sessions . He presents in a wheelchair today. He denies odors or redness. He has demonstrated significant delays in healing. He has continued maceration to his left below-knee amputation stump site. He denies new injuries this past week. Progress of Wound: Stable right toe area. Stable right heel area. Continued maceration the left stump site - Physical Exam Vital Signs Temp Pulse Resp BP 97 F L 89 18 141/71 H 04/27/18 08:06 04/27/18 08:06 04/27/18 08:06 04/27/18 08:06 General: Alert, Oriented x3, Cooperative Extremities: Capillary Refill Less than 3 Seconds, No Calf Tenderness, Diminished Peripheral Pulses, Edema, - - Below-knee amputation Skin: Ulcer/ Wound - No purulence, erythema, streaking, odor, or acute infection bilateral. Continue maceration with some hemorrhagic tissue exposure increased size to the left below-knee amputation stump site. There is no necrotic tissue changes to the right foot today. There is no interdigital maceration. The peripheral skin is hairless and atrophic bilateral lower extremities and there is continued lower extremity hyperpigmentation on the right and also to the stump site on the left consistent with chronic swelling changes Wound Measurements and Assessment WC - Nurse 1 - General Ulcer Measurement Start: 04/07/18 10:59 Freq: Status: Active Protocol: Activity Type Activity Date Activity User E-Sign Co-Sign Detail Recorded Client Recorded Date Recorded By Document 04/27/18 08:06 [id number] 04/27/18 08:16 DL 04/27/18 08:06 Wound Center Nurse 1 [Ulcer Assessment] #13 R Med Heel -Combined with other wound No -Current Size (cm) - Length 2.1 -Current Size (cm) - Width 1.7 -Current Size (cm) - Depth 0.1 -Total Square Cm 3.57 -Photo Taken No -Tunneling No -Undermining/Tunneling No -Circular Undermining No -Exudate Amt Small (1-33%) -Exudate Type Serosanguineous -Wound Margin Distinct, Outline Attached -Granulation Amt None Present (0 %) -Slough/Fibrin Yes -Necrosis Amt Large (67-100%) -Necrotic Tissue Type Adherent Slough -Texture (Martha-wound Skin Appearance) Callus Scarring -Moisture (Martha-wound Skin Appearance Assessed ) -Color (Martha-wound Skin Appearance) Assessed Hemosiderin Staining -Temperature (Martha-wound Skin No Abnormality Appearance) (Pt Warm) -Tenderness on Palpation (Martha-wound No Skin Appearance) -Ulcer Cleansing Wound Cleanser -Foul Odor after Cleansing No -Anesthetic Used 4% Lidocaine Solution #21 Right Foot-Toes w/Metatarsal Head circumfrential -Combined with other wound No -Current Size (cm) - Length 4.4 -Current Size (cm) - Width 0.4 -Current Size (cm) - Depth 0.1 -Total Square Cm 1.76 -Photo Taken No -Epithelialization Small 1-33% -Tunneling No -Undermining/Tunneling No -Circular Undermining No -Exudate Amt Small (1-33%) -Exudate Type Serosanguineous -Wound Margin Distinct, Outline Attached -Granulation Amt Large (67-100%) -Granulation Quality [place] -Slough/Fibrin No -Necrosis Amt None Present (0 %) -Texture (Martha-wound Skin Appearance) Scarring -Moisture (Martha-wound Skin Appearance Maceration ) -Color (Martha-wound Skin Appearance) Palor -Temperature (Martha-wound Skin No Abnormality Appearance) (Pt Warm) -Tenderness on Palpation (Martha-wound No Skin Appearance) -Ulcer Cleansing Wound Cleanser -Foul Odor after Cleansing No -Anesthetic Used 4% Lidocaine Solution [Edema Assessment] -Lower Limb Edema Present Yes -Right Calf (cm) 37.3 -Right Ankle (cm) 30 -Left Calf (cm) 42.5 WC - Nurse 2 - General Ulcer CM Notes Start: 04/07/18 10:59 Freq: Status: Active Protocol: Activity Type Activity Date Activity User E-Sign Co-Sign Detail Recorded Client Recorded Date Recorded By Document 04/27/18 08:44 [id number] 04/27/18 08:47 04/27/18 08:44 Wound Center Nurse 2 [Procedure/Treatment] #13 R Med Heel -Time 08:44 -Correct Patient Yes -Correct Side, Site, Position Yes -Correct Procedure Yes -Procedure Performed Yes -Type of Procedure Debridement -Clinical Debridement Subcutaneous -Post Debridement Size (cm) - Length 2.2 -Post Debridement Size (cm) - Width 1.8 -Post Debridement Size (cm) - Depth 0.1 -Total Square Cm 3.96 -Wound/Ulcer Outcome Not Healed -Ulcer Cleansing Rinsed/ Irrigated with Saline -Foul Odor after Cleansing No -Bioengineered Tissue Yes -Type of bioengineered Tissue [facility] -Expiration Date 09/15/22 -Product Lot Number [id number] -Percent Used 50 -Saline Lot Number [id number] -Topical Lidocaine (%) 4 -Bleeding Controlled with Pressure -Treatment Response Procedure Tolerated Well #21 Right Foot-Toes w/Metatarsal Head circumfrential -Time 08:45 -Correct Patient Yes -Correct Side, Site, Position Yes -Correct Procedure Yes -Procedure Performed Yes -Type of Procedure Debridement -Clinical Debridement Subcutaneous -Post Debridement Size (cm) - Length 4.5 -Post Debridement Size (cm) - Width 0.5 -Post Debridement Size (cm) - Depth 0.1 -Total Square Cm 2.25 -Wound/Ulcer Outcome Not Healed -Ulcer Cleansing Rinsed/ Irrigated with Saline -Foul Odor after Cleansing No -Bioengineered Tissue Yes -Type of bioengineered Tissue NU-SH[facility]ELD -Expiration Date 09/15/22 -Product Lot Number [id number] -Percent Used 50 -Saline Lot Number [id number] -Topical Lidocaine (%) 4 -Bleeding Controlled with Pressure -Treatment Response Procedure Tolerated Well [See Physician Procedure note for Specifics] Pain Scale: 0-10 Numeric [Pain] -Is Patient Pain Free? Yes Musculoskeletal: No Tenderness to Palpation of Joints or Extremities, Muscle Wasting Neurological: - - Lack of epicritic sensation light touch Psych/Mental Status: Normal Affect, Appropriate Debridement Note Post-Debridement Measurements/Treatment WC - Nurse 2 - General Ulcer CM Notes Start: 04/07/18 10:59 Freq: Status: Active Protocol: Activity Type Activity Date Activity User E-Sign Co-Sign Detail Recorded Client Recorded Date Recorded By Document 04/13/18 08:52 TM [id number] 04/13/18 08:54 TM Document 04/20/18 08:46 TM [id number] 04/20/18 08:49 TM Document 04/27/18 08:44 TM [id number] 04/27/18 08:47 TM 04/13/18 04/20/18 04/27/18 08:52 08:46 08:44 Wound Center Nurse 2 #13 R Med Heel -Time 08:53 08:46 08:44 -Correct Patient Yes Yes Yes -Correct Side, Site, Position Yes Yes Yes -Correct Procedure Yes Yes Yes -Procedure Performed Yes Yes Yes -Type of Procedure Debridement Debridement Debridement -Clinical Debridement Subcutaneous Subcutaneous Subcutaneous -Post Debridement Size (cm) - Length 1.5 1.1 2.2 -Post Debridement Size (cm) - Width 1.9 1.6 1.8 -Post Debridement Size (cm) - Depth 0.1 0.1 0.1 -Total Square Cm 2.85 1.76 3.96 -Wound/Ulcer Outcome Not Healed Not Healed Not Healed -Ulcer Cleansing Rinsed/ Rinsed/ Rinsed/ Irrigated with Irrigated with Irrigated with Saline Saline Saline -Foul Odor after Cleansing No No No -Bioengineered Tissue Yes Yes Yes -Type of bioengineered Tissue -[facility] -Expiration Date 03/24/23 12/27/22 09/15/22 -Product Lot Number [id number] -Percent Used 100 50 50 -Saline Lot Number [id number] -Topical Lidocaine (%) 4 4 4 -Bleeding Controlled with Pressure Pressure Pressure -Treatment Response Procedure Procedure Procedure Tolerated Well Tolerated Well Tolerated Well #21 Right Foot-Toes w/Metatarsal Head circumfrential -Time 08:53 08:47 08:45 -Correct Patient Yes Yes Yes -Correct Side, Site, Position Yes Yes Yes -Correct Procedure Yes Yes Yes -Procedure Performed Yes Yes Yes -Type of Procedure Debridement Debridement Debridement -Clinical Debridement Subcutaneous Subcutaneous Subcutaneous -Post Debridement Size (cm) - Length 4.1 0.7 4.5 -Post Debridement Size (cm) - Width 0.9 0.7 0.5 -Post Debridement Size (cm) - Depth 0.1 0.1 0.1 -Total Square Cm 3.69 0.49 2.25 -Wound/Ulcer Outcome Not Healed Not Healed -Ulcer Cleansing Rinsed/ Rinsed/ Rinsed/ Irrigated with Irrigated with Irrigated with Saline Saline Saline -Foul Odor after Cleansing No No No -Bioengineered Tissue No Yes Yes -Type of bioengineered Tissue [facility] -Expiration Date 12/27/22 09/15/22 -Product Lot Number [id number] -Percent Used 50 50 -Saline Lot Number [id number] -Topical Lidocaine (%) 4 4 4 -Bleeding Controlled with Pressure Pressure Pressure -Treatment Response Procedure Procedure Procedure Tolerated Well Tolerated Well Tolerated Well Pain Scale: 0-10 Numeric Is Patient Pain Free? Yes Yes Yes Wound debrided: heel Laterality: Right Wound Grade/Stage: grade 3 Type of Debridement: Excisional debridement Anesthesia Used: 4% Lidocaine Solution Depth: in the subcutaneous layer Percentage of wound debrided: 100 Instrument Used: #15 blade Tissue Removed: fibrous, devitalized subcutaneous, biofilm, slough Severity: Fat Layer Exposed Amount of bleeding with debridement: Mild Bleeding Controlled with: Pressure Patient tolerated procedure well - Additional Wound Wound debrided: toe Laterality: Right Wound Grade/Stage: grade 1 Type of Debridement: Excisional debridement Anesthesia Used: 4% Lidocaine Solution Depth: in the subcutaneous layer Percentage of wound debrided: 100 Instrument Used: #15 blade Tissue Removed: fibrous, devitalized subcutaneous, biofilm, slough Severity: Fat Layer Exposed Amount of bleeding with debridement: Mild Bleeding Controlled with: Pressure Patient tolerated procedure: Patient tolerated procedure well Assessment/Plan Active Problems Chronic ulcer of right foot with fat layer exposed (Chronic) Maceration of skin (Acute) Ulcer of right lower extremity with fat layer exposed (Chronic) Ulcer of left lower extremity, limited to breakdown of skin (Chronic) Morbid obesity (Chronic) BKA stump complication (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 right heel ulcer muscle involved and exposed fascia without infection noted today (previous grade 3); s/p surgical debridement and application of advance wound care products (amniofil and epicord). Left below-knee amputation sub-hemorrhagic tissue with continued weeping noted; no infection ; worse status. Lymphedema. Chronic lower extremity edema and venous insufficiency. Morbid obesity. Type 2 diabetes uncontrolled with peripheral neuropathy. CKD. Hypertension. Malnutrition. Delayed wound healing. Nonadherence to treatment plan Plan: I reviewed and discussed his case debridement done as documented above in the clinical panel; this procedure was well tolerated. Additional advanced product application prior authorization was approved and nushield was applied today according to standard protocol. This is medically necessary and will facilitate a more timely healing course. Verbal consent was obtained. This was applied to the heel and toe today. This was secured with steri strips and a wound veil to the right heel and toe regions. To keep this intact until follow up next week. I recommend changing this with dry gauze over the ulcer sites and Aquacel ag to the left stump site to facilitate maceration reduction. Continue compression and elevate lower extremity when sitting and in bed. Optimal blood sugar contol. We discussed compliance and I recommend elevating only 75% of the time. To avoid trauma to the right foot as he sustained last week. Continue protein suppplements and increased protein in diet. To continue h yperbaric oxygen therapy as scheduled on complaint basis. I encouraged continued use. To improve compliance with compression pumps. I advised him to at least get a second session even if it is reduced in time each day. He reports he is doing this and I recommend he continues. Follow up in 1 week with at the wound healing center or call sooner if he has any questions or concerns.
[2018-04-27 09:31] LABS: Bedside Glucose 158 mg/dL (70-110)
[2018-04-27 09:40] VITALS: BP 141/71; BP 158/80; PULSE 80; PULSE 89; RESP 16; RESP 18; TEMP 35.6; TEMP 35.8
[2018-04-27 11:46] LABS: Bedside Glucose 123 mg/dL (70-110)
--- NOTE | 2018-04-27 12:43 | PCM.HBO.PN ---
History of Present Illness Presenting Chief Complaint: Right foot ulcers. Left stump site maceration DEL BARRIOS is a 57 year old currently undergoing hyperbaric oxygen therapy for diabetic toe and heel ulcers with necrosis of bone, Brooks Grade 3. Progress: The patient appears to be tolerating hyperbaric oxygen therapy well. Tolerance of hyperbaric oxygen therapy: Hyperbaric oxygen therapy was administered as per the facility's protocol. The patient tolerated hyperbaric oxygen therapy well, without complaints or complications. Upon emergence from the hyperbaric chamber, patient's vital signs remained stable. Patient was discharged in good condition. 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) Delayed wound healing (Chronic) Malnutrition (Chronic) Venous insufficiency (Chronic) Lymphedema (Chronic) Edema of both legs (Chronic) GERD (gastroesophageal reflux disease) (Chronic) Hypertension (Chronic) Hyperlipemia (Chronic) Morbid obesity with BMI of 45.0-49.9, adult (Chronic) Hyperlipidemia associated with type 2 diabetes mellitus (Chronic) 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 Allergies/Adverse Reactions: Allergies bee venom protein (honey bee) Allergy (Verified 12/13/17 09:30) Swelling metronidazole [From Flagyl] Allergy (Verified 12/13/17 09:30) Itching Home Medications: Ambulatory Orders Medication Instructions Recorded Atorvastatin Calcium [Lipitor] 10 mg PO QHS 01/08/17 Brimonidine Tartrate 0.2% 1 drop EACH EYE BID 01/08/17 [Brimonidine 0.2% 5Ml Bottle] Ergocalciferol [Vitamin D] 50,000 unit PO FR 01/08/17 Gabapentin [Neurontin] 1,600 mg PO QHS 01/08/17 Gabapentin [Neurontin] 600 mg PO DAILY 01/08/17 Insulin U-500 [Humulin R U-500 105 units SC DINNER 01/08/17 ([facility])] Insulin U-500 [Humulin R U-500 105 units SC LUNCH 01/08/17 ([facility])] Insulin U-500 [Humulin R U-500 160 units SC BREAKFAST 01/08/17 ([facility])] Latanoprost 0.005% [Xalatan 1 drop EACH EYE QHS 01/08/17 Opthalmic] Losartan Potassium [Cozaar] 50 mg PO DAILY 01/08/17 Nebivolol HCl [Bystolic (Beta 10 mg PO DAILY 01/08/17 Akira)] Omeprazole [Prilosec] 40 mg PO DAILY 01/08/17 Acetaminophen [Tylenol Tablet] 650 mg PO Q6H PRN PRN tablet 09/07/17 Clopidogrel Bisulfate [Plavix] 75 mg PO DAILY 09/07/17 Menthol/Lanolin/Calamine/Znox 1 applic TOPICAL 0600,2200 tube 09/21/17 [Calmoseptine Ointment] Nutritional Supplement [Madhu - 1 packet PO BIDCM #60 packet 09/21/17 ORANGE FLAVOR] Nystatin Powder [Mycostatin Powder] 1 applic TOPICAL 0600,2200 bottle 09/21/17 Ferrous Sulfate [Iron] 325 mg PO BID 10/14/17 Clindamycin HCl 300 mg PO [id number] #40 cap 12/13/17 Maternal Family History: Diabetes Paternal Family History: Hypertension Sibling Family History: Diabetes Smoking Status: Former smoker Physical Exam Vital Signs Temp Pulse Resp BP 96.0 F L 89 18 141/71 H 04/27/18 09:40 04/27/18 09:40 04/27/18 09:40 04/27/18 09:40 General: Alert, Oriented x3, Cooperative, No apparent distress HEENT: Atraumatic Lungs: Normal air movement Psych/Mental Status: Normal Affect Assessment/Plan Active Problems Chronic ulcer of right foot with fat layer exposed (Chronic) Maceration of skin (Acute) Ulcer of right lower extremity with fat layer exposed (Chronic) Ulcer of left lower extremity, limited to breakdown of skin (Chronic) Morbid obesity (Chronic) 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
[2018-05-03 09:46] LABS: Bedside Glucose 190 mg/dL (70-110)
[2018-05-03 11:56] LABS: Bedside Glucose 144 mg/dL (70-110)
[2018-05-03 12:31] VITALS: BP 117/61; BP 131/77; PULSE 85; PULSE 88; RESP 16; TEMP 35.6; TEMP 35.9
--- NOTE | 2018-05-03 12:57 | PCM.HBO.PN ---
History of Present Illness Presenting Chief Complaint: Right foot ulcers. Left stump site maceration DEL BARRIOS is a 57 year old currently undergoing hyperbaric oxygen therapy for diabetic toe and heel ulcers with necrosis of bone, Brooks Grade 3. Progress: The patient appears to be tolerating hyperbaric oxygen therapy well. Today's session represents the 55th such session of hyperbaric oxygen therapy. Tolerance of hyperbaric oxygen therapy: Hyperbaric oxygen therapy was administered as per the facility's protocol. The patient tolerated hyperbaric oxygen therapy well, without complaints or complications. Upon emergence from the hyperbaric chamber, the patient's vital signs remained stable. The patient was discharged in good condition. 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) Delayed wound healing (Chronic) Malnutrition (Chronic) Venous insufficiency (Chronic) Lymphedema (Chronic) Edema of both legs (Chronic) GERD (gastroesophageal reflux disease) (Chronic) Hypertension (Chronic) Hyperlipemia (Chronic) Morbid obesity with BMI of 45.0-49.9, adult (Chronic) Hyperlipidemia associated with type 2 diabetes mellitus (Chronic) 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 Allergies/Adverse Reactions: Allergies bee venom protein (honey bee) Allergy (Verified 12/13/17 09:30) Swelling metronidazole [From Flagyl] Allergy (Verified 12/13/17 09:30) Itching Home Medications: Ambulatory Orders Medication Instructions Recorded Atorvastatin Calcium [Lipitor] 10 mg PO QHS 01/08/17 Brimonidine Tartrate 0.2% 1 drop EACH EYE BID 01/08/17 [Brimonidine 0.2% 5Ml Bottle] Ergocalciferol [Vitamin D] 50,000 unit PO FR 01/08/17 Gabapentin [Neurontin] 1,600 mg PO QHS 01/08/17 Gabapentin [Neurontin] 600 mg PO DAILY 01/08/17 Insulin U-500 [Humulin R U-500 105 units SC DINNER 01/08/17 ([facility])] Insulin U-500 [Humulin R U-500 105 units SC LUNCH 01/08/17 ([facility])] Insulin U-500 [Humulin R U-500 160 units SC BREAKFAST 01/08/17 ([facility])] Latanoprost 0.005% [Xalatan 1 drop EACH EYE QHS 01/08/17 Opthalmic] Losartan Potassium [Cozaar] 50 mg PO DAILY 01/08/17 Nebivolol HCl [Bystolic (Beta 10 mg PO DAILY 01/08/17 Akira)] Omeprazole [Prilosec] 40 mg PO DAILY 01/08/17 Acetaminophen [Tylenol Tablet] 650 mg PO Q6H PRN PRN tablet 09/07/17 Clopidogrel Bisulfate [Plavix] 75 mg PO DAILY 09/07/17 Menthol/Lanolin/Calamine/Znox 1 applic TOPICAL 0600,2200 tube 09/21/17 [Calmoseptine Ointment] Nutritional Supplement [Madhu - 1 packet PO BIDCM #60 packet 09/21/17 [place]ANGE FLAVOR] Nystatin Powder [Mycostatin Powder] 1 applic TOPICAL 0600,2200 bottle 09/21/17 Ferrous Sulfate [Iron] 325 mg PO BID 10/14/17 Clindamycin HCl 300 mg PO [id number] #40 cap 12/13/17 Maternal Family History: Diabetes Paternal Family History: Hypertension Sibling Family History: Diabetes Smoking Status: Former smoker Physical Exam Vital Signs Temp Pulse Resp BP 96.7 F L 88 16 117/61 05/03/18 12:31 05/03/18 12:31 05/03/18 12:31 05/03/18 12:31 General: Alert, Oriented x3, Cooperative, No apparent distress, Well developed, Well nourished HEENT: Atraumatic, PERRLA, EOMI, Normocephalic Lungs: Normal air movement Psych/Mental Status: Normal Affect, Appropriate, Alert and oriented to time, place, person, mood and affect Assessment/Plan Active Problems Chronic ulcer of right foot with fat layer exposed (Chronic) Maceration of skin (Acute) Ulcer of right lower extremity with fat layer exposed (Chronic) Ulcer of left lower extremity, limited to breakdown of skin (Chronic) Morbid obesity (Chronic) 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
[2018-05-04 08:30] VITALS: BP 116/46; PULSE 90; RESP 18; TEMP 36.2
--- NOTE | 2018-05-04 09:00 | PN.PCM_ITS ---
(1) Ulcer of left lower extremity with fat layer exposed Status: Chronic Current Visit: Yes Code(s): L97.922 - Non-pressure chronic ulcer of unspecified part of left lower leg with fat layer exposed (2) Chronic ulcer of right foot with fat layer exposed Status: Chronic Current Visit: Yes Code(s): L97.512 - Non-pressure chronic ulcer of other part of right foot with fat layer exposed (3) Ulcer of right lower extremity with fat layer exposed Status: Chronic Current Visit: Yes Code(s): L97.912 - Non-pressure chronic ulcer of unspecified part of right lower leg with fat layer exposed (4) Morbid obesity Status: Chronic Current Visit: Yes Code(s): E66.01 - Morbid (severe) obesity due to excess calories (5) BKA stump complication Status: Chronic Current Visit: Yes Code(s): T87.9 - Unspecified complications of amputation stump (6) Type 2 diabetes mellitus with diabetic polyneuropathy Status: Chronic Current Visit: Yes Code(s): E11.42 - Type 2 diabetes mellitus with diabetic polyneuropathy (7) Delayed wound healing Status: Chronic Current Visit: Yes Code(s): T14.8 - Other injury of unspecified body region (8) Malnutrition Status: Chronic Current Visit: Yes Code(s): E46 - Unspecified protein- calorie malnutrition (9) Venous insufficiency Status: Chronic Current Visit: Yes Code(s): I87.2 - Venous insufficiency (chronic) (peripheral) (10) Lymphedema Status: Chronic Current Visit: Yes Code(s): I89.0 - Lymphedema, not else where classified (11) Edema of both legs Status: Chronic Current Visit: Yes Code(s): R60.0 - Localized edema (12) Maceration of skin Status: Acute Current Visit: Yes Code(s): L98.8 - Other specified disorders of the skin and subcutaneous tissue Type of Wound Chief Complaint: Right foot ulcers. Left stump site ulcer History of Wound: 57-year-old white male returns to clinic for follow-up of bilateral leg ulcers and right foot ulcers. He denies fever, chill, nausea, vomiting, loss of appetite. He had multiple advanced wound care product applications. He continues with hyperbaric oxygen therapy sessions . He presents in a wheelchair today. He denies odors or redness. He has demonstrated significant delays in healing. He has continued maceration that is now open to his left below-knee amputation stump site. He denies new injuries this past week. Progress of Wound: Stable right toe area. Stable right heel area. left stump site ulcer worse - Physical Exam Vital Signs Temp Pulse Resp BP 97.1 F L 90 18 116/46 L 05/04/18 08:30 05/04/18 08:30 05/04/18 08:30 05/04/18 08:30 General: Alert, Oriented x3, Cooperative Extremities: No cyanosis, Capillary Refill Less than 3 Seconds, No Calf Tenderness - negative suzanne and bean right. left below knee amputation with edema, Diminished Peripheral Pulses, Edema - bilateral Skin: Ulcer/ Wound - no purulence, no erythema, no streaking, no odor, no infection bilateral. there is a status change to the left below knee amputation stump site now with subcutaneous tissue exposed (10%). there is continued progressive significant epithelialization to the right heel ulcer site without necrosis Wound Measurements and Assessment WC - Nurse 1 - General Ulcer Measurement Start: 04/07/18 10:59 Freq: Status: Active Protocol: Activity Type Activity Date Activity User E-Sign Co-Sign Detail Recorded Client Recorded Date Recorded By Document 05/04/18 08:30 [id number] 05/04/18 08:32 ANUP 05/04/18 08:30 Wound Center Nurse 1 [Ulcer Assessment] #13 R Med Heel -Combined with other wound No -Current Size (cm) - Length 1.3 -Current Size (cm) - Width 1.0 -Current Size (cm) - Depth 0.1 -Total Square Cm 1.30 -Photo Taken No -Epithelialization Small 1-33% -Tunneling No -Undermining/Tunneling No -Circular Undermining No -Exudate Amt Small (1-33%) -Exudate Type Serosanguineous -Wound Margin Flat & Intact -Granulation Amt Medium (34-66%) -Granulation Quality Pale [place] -Slough/Fibrin Yes -Necrosis Amt Medium (34-66%) -Necrotic Tissue Type Adherent Slough -Structure Exposed N/A -Texture (Martha-wound Skin Appearance) Assessed Localized Edema -Moisture (Martha-wound Skin Appearance Assessed ) Dry/Scaly -Color (Martha-wound Skin Appearance) Assessed -Temperature (Martha-wound Skin No Abnormality Appearance) (Pt Warm) -Tenderness on Palpation (Martha-wound No Skin Appearance) -Ulcer Cleansing Wound Cleanser -Foul Odor after Cleansing No -Anesthetic Used 5% Lidocaine Gel #21 Right Foot-Toes w/Metatarsal Head circumfrential -Combined with other wound No -Current Size (cm) - Length 0.8 -Current Size (cm) - Width 0.8 -Current Size (cm) - Depth 0.1 -Total Square Cm 0.64 -Photo Taken No -Epithelialization Small 1-33% -Tunneling No -Undermining/Tunneling No -Circular Undermining No -Exudate Amt Small (1-33%) -Exudate Type Serosanguineous -Wound Margin Flat & Intact -Granulation Amt Large (67-100%) -Granulation Quality Red -Slough/Fibrin Yes -Necrosis Amt Small (1-33%) -Necrotic Tissue Type Adherent Slough -Structure Exposed N/A -Texture (Martha-wound Skin Appearance) Assessed Localized Edema -Moisture (Martha-wound Skin Appearance Assessed ) Maceration -Color (Martha-wound Skin Appearance) Assessed -Temperature (Martha-wound Skin No Abnormality Appearance) (Pt Warm) -Tenderness on Palpation (Martha-wound No Skin Appearance) -Ulcer Cleansing Wound Cleanser -Foul Odor after Cleansing No -Anesthetic Used 5% Lidocaine Gel [Edema Assessment] -Lower Limb Edema Present Yes -Right Calf (cm) 37.4 -Right Ankle (cm) 29.3 -Left Calf (cm) 41.6 WC - Nurse 2 - General Ulcer CM Notes Start: 04/07/18 10:59 Freq: Status: Active Protocol: Activity Type Activity Date Activity User E-Sign Co-Sign Detail Recorded Client Recorded Date Recorded By Document 05/04/18 08:53 [id number] 05/04/18 08:55 05/04/18 08:53 Wound Center Nurse 2 [Procedure/Treatment] #22 left stump -Time 08:54 -Correct Patient Yes -Correct Side, Site, Position Yes -Correct Procedure Yes -Procedure Performed Yes -Type of Procedure Debridement -Clinical Debridement Subcutaneous -Post Debridement Size (cm) - Length 7.2 -Post Debridement Size (cm) - Width 7.2 -Post Debridement Size (cm) - Depth 0.1 -Total Square Cm 51.84 -Wound/Ulcer Outcome Not Healed -Ulcer Cleansing Rinsed/ Irrigated with Saline -Foul Odor after Cleansing No -Bioengineered Tissue No -Topical Lidocaine (%) 4 -Bleeding Controlled with Pressure -Treatment Response Procedure Tolerated Well #13 R Med Heel -Time 08:53 -Correct Patient Yes -Correct Side, Site, Position Yes -Correct Procedure Yes -Procedure Performed Yes -Type of Procedure Debridement -Clinical Debridement Subcutaneous -Post Debridement Size (cm) - Length 1.8 -Post Debridement Size (cm) - Width 1.8 -Post Debridement Size (cm) - Depth 0.1 -Total Square Cm 3.24 -Wound/Ulcer Outcome Not Healed -Ulcer Cleansing Rinsed/ Irrigated with Saline -Foul Odor after Cleansing No -Bioengineered Tissue No -Topical Lidocaine (%) 5 -Bleeding Controlled with Pressure -Treatment Response Procedure Tolerated Well #21 Right Foot-Toes w/Metatarsal Head circumfrential -Time 08:53 -Correct Patient Yes -Correct Side, Site, Position Yes -Correct Procedure Yes -Procedure Performed Yes -Type of Procedure Debridement -Clinical Debridement Subcutaneous -Post Debridement Size (cm) - Length 0.9 -Post Debridement Size (cm) - Width 0.9 -Post Debridement Size (cm) - Depth 0.1 -Total Square Cm 0.81 -Wound/Ulcer Outcome Not Healed -Ulcer Cleansing Rinsed/ Irrigated with Saline -Foul Odor after Cleansing No -Bioengineered Tissue No -Topical Lidocaine (%) 5 -Bleeding Controlled with Pressure -Treatment Response Procedure Tolerated Well [See Physician Procedure note for Specifics] Pain Scale: 0-10 Numeric [Pain] -Is Patient Pain Free? Yes Musculoskeletal: No Tenderness to Palpation of Joints or Extremities, Muscle Wasting, - - lyphedema, bilateral Neurological: - - lack of epicritic sensation via light touch bilateral consistent with neuropathy Psych/Mental Status: Normal Affect, Appropriate Debridement Note Post-Debridement Measurements/Treatment WC - Nurse 2 - General Ulcer CM Notes Start: 04/07/18 10:59 Freq: Status: Active Protocol: Activity Type Activity Date Activity User E-Sign Co-Sign Detail Recorded Client Recorded Date Recorded By Document 04/13/18 08:52 [id number] 04/13/18 08:54 TM Document 04/20/18 08:46 [id number] 04/20/18 08:49 TM Document 04/27/18 08:44 TM [id number] 04/27/18 08:47 TM Document 05/04/18 08:53 TM [id number] 05/04/18 08:55 TM 04/13/18 04/20/18 04/27/18 08:52 08:46 08:44 Wound Center Nurse 2 #22 left stump -Time -Correct Patient -Correct Side, Site, Position -Correct Procedure -Procedure Performed -Type of Procedure -Clinical Debridement -Post Debridement Size (cm) - Length -Post Debridement Size (cm) - Width -Post Debridement Size (cm) - Depth -Total Square Cm -Wound/Ulcer Outcome -Ulcer Cleansing -Foul Odor after Cleansing -Bioengineered Tissue -Topical Lidocaine (%) -Bleeding Controlled with -Treatment Response #13 R Med Heel -Time 08:53 08:46 08:44 -Correct Patient Yes Yes Yes -Correct Side, Site, Position Yes Yes Yes -Correct Procedure Yes Yes Yes -Procedure Performed Yes Yes Yes -Type of Procedure Debridement Debridement Debridement -Clinical Debridement Subcutaneous Subcutaneous Subcutaneous -Post Debridement Size (cm) - Length 1.5 1.1 2.2 -Post Debridement Size (cm) - Width 1.9 1.6 1.8 -Post Debridement Size (cm) - Depth 0.1 0.1 0.1 -Total Square Cm 2.85 1.76 3.96 -Wound/Ulcer Outcome Not Healed Not Healed Not Healed -Ulcer Cleansing Rinsed/ Rinsed/ Rinsed/ Irrigated with Irrigated with Irrigated with Saline Saline Saline -Foul Odor after Cleansing No No No -Bioengineered Tissue Yes Yes Yes -Type of bioengineered Tissue NU-SHIELD NU-SHIELD NU-SHIELD -Expiration Date 03/24/23 12/27/22 09/15/22 -Product Lot Number [id number] -Percent Used 100 50 50 -Saline Lot Number [id number] -Topical Lidocaine (%) 4 4 4 -Bleeding Controlled with Pressure Pressure Pressure -Treatment Response Procedure Procedure Procedure Tolerated Well Tolerated Well Tolerated Well #21 Right Foot-Toes w/Metatarsal Head circumfrential -Time 08:53 08:47 08:45 -Correct Patient Yes Yes Yes -Correct Side, Site, Position Yes Yes Yes -Correct Procedure Yes Yes Yes -Procedure Performed Yes Yes Yes -Type of Procedure Debridement Debridement Debridement -Clinical Debridement Subcutaneous Subcutaneous Subcutaneous -Post Debridement Size (cm) - Length 4.1 0.7 4.5 -Post Debridement Size (cm) - Width 0.9 0.7 0.5 -Post Debridement Size (cm) - Depth 0.1 0.1 0.1 -Total Square Cm 3.69 0.49 2.25 -Wound/Ulcer Outcome Not Healed Not Healed -Ulcer Cleansing Rinsed/ Rinsed/ Rinsed/ Irrigated with Irrigated with Irrigated with Saline Saline Saline -Foul Odor after Cleansing No No No -Bioengineered Tissue No Yes Yes -Type of bioengineered Tissue NU-SHIELD NU-SHIELD -Expiration Date 12/27/22 09/15/22 -Product Lot Number [id number] -Percent Used 50 50 -Saline Lot Number [id number] -Topical Lidocaine (%) 4 4 4 -Bleeding Controlled with Pressure Pressure Pressure -Treatment Response Procedure Procedure Procedure Tolerated Well Tolerated Well Tolerated Well Pain Scale: 0-10 Numeric Is Patient Pain Free? Yes Yes Yes 05/04/18 08:53 Wound Center Nurse 2 #22 left stump -Time 08:54 -Correct Patient Yes -Correct Side, Site, Position Yes -Correct Procedure Yes -Procedure Performed Yes -Type of Procedure Debridement -Clinical Debridement Subcutaneous -Post Debridement Size (cm) - Length 7.2 -Post Debridement Size (cm) - Width 7.2 -Post Debridement Size (cm) - Depth 0.1 -Total Square Cm 51.84 -Wound/Ulcer Outcome Not Healed -Ulcer Cleansing Rinsed/ Irrigated with Saline -Foul Odor after Cleansing No -Bioengineered Tissue No -Topical Lidocaine (%) 4 -Bleeding Controlled with Pressure -Treatment Response Procedure Tolerated Well #13 R Med Heel -Time 08:53 -Correct Patient Yes -Correct Side, Site, Position Yes -Correct Procedure Yes -Procedure Performed Yes -Type of Procedure Debridement -Clinical Debridement Subcutaneous -Post Debridement Size (cm) - Length 1.8 -Post Debridement Size (cm) - Width 1.8 -Post Debridement Size (cm) - Depth 0.1 -Total Square Cm 3.24 -Wound/Ulcer Outcome Not Healed -Ulcer Cleansing Rinsed/ Irrigated with Saline -Foul Odor after Cleansing No -Bioengineered Tissue No -Type of bioengineered Tissue -Expiration Date -Product Lot Number -Percent Used -Saline Lot Number -Topical Lidocaine (%) 5 -Bleeding Controlled with Pressure -Treatment Response Procedure Tolerated Well #21 Right Foot-Toes w/Metatarsal Head circumfrential -Time 08:53 -Correct Patient Yes -Correct Side, Site, Position Yes -Correct Procedure Yes -Procedure Performed Yes -Type of Procedure Debridement -Clinical Debridement Subcutaneous -Post Debridement Size (cm) - Length 0.9 -Post Debridement Size (cm) - Width 0.9 -Post Debridement Size (cm) - Depth 0.1 -Total Square Cm 0.81 -Wound/Ulcer Outcome Not Healed -Ulcer Cleansing Rinsed/ Irrigated with Saline -Foul Odor after Cleansing No -Bioengineered Tissue No -Type of bioengineered Tissue -Expiration Date -Product Lot Number -Percent Used -Saline Lot Number -Topical Lidocaine (%) 5 -Bleeding Controlled with Pressure -Treatment Response Procedure Tolerated Well Pain Scale: 0-10 Numeric Is Patient Pain Free? Yes Wound debrided: stump site leg Laterality: Left Wound Grade/Stage: grade 1 Type of Debridement: Excisional debridement Anesthesia Used: 4% Lidocaine Solution Depth: in the subcutaneous layer Percentage of wound debrided: 10 Instrument Used: #15 blade Tissue Removed: fibrous, devitalized subcutaneous, biofilm, slough Severity: Fat Layer Exposed Amount of bleeding with debridement: Mild Bleeding Controlled with: Pressure Patient tolerated procedure well - Additional Wound Wound debrided: heel Laterality: Right Wound Grade/Stage: grade 3 Type of Debridement: Excisional debridement Anesthesia Used: 5% Lidocaine Gel Depth: in the subcutaneous layer Percentage of wound debrided: - - 25% Instrument Used: #15 blade Tissue Removed: fibrous, devitalized subcutaneous, biofilm, slough Severity: Fat Layer Exposed Amount of bleeding with debridement: Mild Bleeding Controlled with: Pressure Patient tolerated procedure: Patient tolerated procedure well - Additional Wound Wound debrided: toe Laterality: Right Wound Grade/Stage: grade 1 Type of Debridement: Excisional debridement Anesthesia Used: 5% Lidocaine Gel Depth: in the subcutaneous layer Percentage of wound debrided: 100 Instrument Used: #15 blade Tissue Removed: fibrous, devitalized subcutaneous, biofilm, slough Severity: Fat Layer Exposed Amount of bleeding with debridement: Mild Bleeding Controlled with: Pressure Patient tolerated procedure: Patient tolerated procedure well Assessment/Plan Active Problems Chronic ulcer of right foot with fat layer exposed (Chronic) Ulcer of left lower extremity with fat layer exposed (Chronic) Maceration of skin (Acute) Ulcer of right lower extremity with fat layer exposed (Chronic) Ulcer of left lower extremity, limited to breakdown of skin (Chronic) Morbid obesity (Chronic) BKA stump complication (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 right heel ulcer muscle involved and exposed fascia without infection noted today (previous grade 3); s/p surgical debridement and application of advance wound care products (amniofil and epicord). 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 Lymphedema. Chronic lower extremity edema and venous insufficiency. Morbid obesity. Type 2 diabetes uncontrolled with peripheral neuropathy. CKD. Hypertension. Malnutrition. Delayed wound healing. Nonadherence to treatment plan Plan: I reviewed and discussed his case debridement done as documented above in the clinical panel; this procedure was well tolerated. Guera was applied to right limb ; to change every 1-2 days. To continue to change left limb site with aquacel ag. Continue compression and elevate lower extremity when sitting and in bed. Optimal blood sugar contol. We discussed compliance and I recommend elevating only 75% of the time. To avoid trauma to the right foot as he sustained last week. Continue protein suppplements and increased protein in diet. To continue hyperbaric oxygen therapy as scheduled on complaint basis. I encouraged continued use. To improve compliance with compression pumps. I advised him to at least get a second session even if it is reduced in time each day. He reports he is doing this and I recommend he continues. Follow up in 1 week with at the wound healing center or call sooner if he has any questions or concerns.
[2018-05-04 09:30] LABS: Bedside Glucose 282 mg/dL (70-110)
[2018-05-04 09:41] LABS: Bedside Glucose 297 mg/dL (70-110)
[2018-05-05 09:50] LABS: Bedside Glucose 256 mg/dL (70-110)
[2018-05-05 10:26] VITALS: BP 110/62; BP 135/67; PULSE 80; PULSE 81; RESP 16; RESP 18; TEMP 35.4; TEMP 35.7
--- NOTE | 2018-05-05 11:16 | HBO.PN.PCM_ITS ---
History of Present Illness Presenting Chief Complaint: Right foot ulcers. 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 Progress: The patient appears to be tolerating hyperbaric oxygen therapy well. Today's session represents the 56th such session of hyperbaric oxygen therapy. Tolerance of hyperbaric oxygen therapy: Hyperbaric oxygen therapy was administered as per the facility's protocol. The patient tolerated hyperbaric oxygen therapy well, without complaints or complications. Upon emergence from the hyperbaric chamber, the patient's vital signs remained stable. The patient was discharged in good condition. Past Medical History Chronic Problems Chronic ulcer of right foot with fat layer exposed (Chronic) Ulcer of left lower extremity with fat layer exposed (Chronic) Ulcer of right lower extremity with fat layer exposed (Chronic) Ulcer of left lower extremity, limited to breakdown of skin (Chronic) Ulcer of left lower extremity, limited to breakdown of skin (Chronic) Non-pressure chronic ulcer of other part of right foot with fat layer exposed (Chronic) Complete below knee amputation of left lower extremity (Chronic) Ulcer of right foot with necrosis of muscle (Chronic) Ulcer of right foot with fat layer exposed (Chronic) 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) Delayed wound healing (Chronic) Malnutrition (Chronic) Venous insufficiency (Chronic) Lymphedema (Chronic) Edema of both legs (Chronic) GERD (gastroesophageal reflux disease) (Chronic) Hypertension (Chronic) Hyperlipemia (Chronic) Morbid obesity with BMI of 45.0-49.9, adult (Chronic) Hyperlipidemia associated with type 2 diabetes mellitus (Chronic) 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 Allergies/Adverse Reactions: Allergies bee venom protein (honey bee) Allergy (Verified 12/13/17 09:30) Swelling metronidazole [From Flagyl] Allergy (Verified 12/13/17 09:30) Itching Home Medications: Ambulatory Orders Medication Instructions Recorded Atorvastatin Calcium [Lipitor] 10 mg PO QHS 01/08/17 Brimonidine Tartrate 0.2% 1 drop EACH EYE BID 01/08/17 [Brimonidine 0.2% 5Ml Bottle] Ergocalciferol [Vitamin D] 50,000 unit PO FR 01/08/17 Gabapentin [Neurontin] 1,600 mg PO QHS 01/08/17 Gabapentin [Neurontin] 600 mg PO DAILY 01/08/17 Insulin U-500 [Humulin R U-500 105 units SC DINNER 01/08/17 ([facility])] Insulin U-500 [Humulin R U-500 105 units SC LUNCH 01/08/17 ([facility])] Insulin U-500 [Humulin R U-500 160 units SC BREAKFAST 01/08/17 ([facility])] Latanoprost 0.005% [Xalatan 1 drop EACH EYE QHS 01/08/17 Opthalmic] Losartan Potassium [Cozaar] 50 mg PO DAILY 01/08/17 Nebivolol HCl [Bystolic (Beta 10 mg PO DAILY 01/08/17 Akira)] Omeprazole [Prilosec] 40 mg PO DAILY 01/08/17 Acetaminophen [Tylenol Tablet] 650 mg PO Q6H PRN PRN tablet 09/07/17 Clopidogrel Bisulfate [Plavix] 75 mg PO DAILY 09/07/17 Menthol/Lanolin/Calamine/Znox 1 applic TOPICAL 0600,2200 tube 09/21/17 [Calmoseptine Ointment] Nutritional Supplement [Madhu - 1 packet PO BIDCM #60 packet 09/21/17 ORANGE FLAVOR] Nystatin Powder [Mycostatin Powder] 1 applic TOPICAL 0600,2200 bottle 09/21/17 Ferrous Sulfate [Iron] 325 mg PO BID 10/14/17 Clindamycin HCl 300 mg PO [id number] #40 cap 12/13/17 Maternal Family History: Diabetes Paternal Family History: Hypertension Sibling Family History: Diabetes Smoking Status: Former smoker Physical Exam Vital Signs Temp Pulse Resp BP 96.2 F L 81 18 135/67 H 05/05/18 10:26 05/05/18 10:26 05/05/18 10:26 05/05/18 10:26 General: Alert, Oriented x3, Cooperative, No apparent distress HEENT: Atraumatic Lungs: Normal air movement Psych/Mental Status: Normal Affect Assessment/Plan Active Problems Chronic ulcer of right foot with fat layer exposed (Chronic) Ulcer of left lower extremity with fat layer exposed (Chronic) Maceration of skin (Acute) Ulcer of right lower extremity with fat layer exposed (Chronic) Ulcer of left lower extremity, limited to breakdown of skin (Chronic) Morbid obesity (Chronic) 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
[2018-05-05 12:06] LABS: Bedside Glucose 189 mg/dL (70-110)
[2018-05-06 11:10] LABS: Bedside Glucose 187 mg/dL (70-110)
[2018-05-06 11:10] LABS: Bedside Glucose 217 mg/dL (70-110)
[2018-05-06 11:11] LABS: Bedside Glucose 154 mg/dL (70-110)
[2018-05-06 11:11] LABS: Bedside Glucose 209 mg/dL (70-110)
== END 2018-05-06 23:59 ==
LOC: WC 10:00
PROVIDERS: Family Provider Family Medicine Geriatric Medicine; PCP Family Medicine Geriatric Medicine; Visit Provider Podiatrist
DX: E11.621 Type 2 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with foot ulcer (principal); L97.512 Non-pressure chronic ulcer of other part of right foot with fat layer exposed; E11.42 Type 2 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with diabetic polyneuropathy; Z89.512 Acquired absence of left leg below knee; E66.01 Morbid (severe) obesity due to excess calories; Z68.42 Body mass index [BMI] 45.0-49.9, adult; Z71.3 Dietary counseling and surveillance; I87.2 Venous insufficiency (chronic) (peripheral); I89.0 Lymphedema, not elsewhere classified; L97.412 Non-pressure chronic ulcer of right heel and midfoot with fat layer exposed; E11.22 Type 2 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with diabetic chronic kidney disease; I12.9 Hypertensive chronic kidney disease with stage 1 through stage 4 chronic kidney disease, or unspecified chronic kidney disease; N18.9 Chronic kidney disease, unspecified
CPT/HCPCS: 11042; 15275; 29581; 82962; 99183; Q4160; G0277

== ENCOUNTER 2018-06-03 10:00 | Outpatient (RCR) | payer MEDICARE, MEDICAID, SELFPAY ==
[2018-05-07 00:53] VITALS: BP 110/62; PULSE 80; RESP 16; TEMP 35.4
[2018-05-09 09:46] LABS: Bedside Glucose 149 mg/dL (70-110)
[2018-05-09 09:56] VITALS: BP 106/65; PULSE 87; RESP 20; TEMP 36.4
[2018-05-09 11:51] LABS: Bedside Glucose 114 mg/dL (70-110)
[2018-05-10 09:26] LABS: Bedside Glucose 237 mg/dL (70-110)
[2018-05-10 10:53] VITALS: BP 120/67; BP 130/62; PULSE 86; RESP 18; TEMP 35.8; TEMP 36.4
[2018-05-10 11:26] LABS: Bedside Glucose 164 mg/dL (70-110)
--- NOTE | 2018-05-10 12:18 | PCM.HBO.PN ---
History of Present Illness Date of Service: 05/10/18 Presenting Chief Complaint: 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 Left stump site ulcer DEL BARRIOS is a 57 year old currently undergoing hyperbaric oxygen therapy for diabetic right foot ulcerations with necrosis of bone, Brooks Grade 3. Progress: The patient appears to be tolerating hyperbaric oxygen therapy well. Today's session represents the 58th such session of hyperbaric oxygen therapy. Tolerance of hyperbaric oxygen therapy: Hyperbaric oxygen therapy was administered as per the facility protocol. The patient tolerated hyperbaric oxygen therapy well, without complaints or complications. Upon emergence from the hyperbaric chamber, the patient's vital signs remained stable. Patient was discharged in good condition. Past Medical History Chronic Problems Chronic ulcer of right foot with fat layer exposed (Chronic) Ulcer of left lower extremity with fat layer exposed (Chronic) Ulcer of right lower extremity with fat layer exposed (Chronic) Ulcer of left lower extremity, limited to breakdown of skin (Chronic) Ulcer of left lower extremity, limited to breakdown of skin (Chronic) Non-pressure chronic ulcer of other part of right foot with fat layer exposed (Chronic) Complete below knee amputation of left lower extremity (Chronic) Ulcer of right foot with necrosis of muscle (Chronic) Ulcer of right foot with fat layer exposed (Chronic) 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) Delayed wound healing (Chronic) Malnutrition (Chronic) Venous insufficiency (Chronic) Lymphedema (Chronic) Edema of both legs (Chronic) GERD (gastroesophageal reflux disease) (Chronic) Hypertension (Chronic) Hyperlipemia (Chronic) Morbid obesity with BMI of 45.0-49.9, adult (Chronic) Hyperlipidemia associated with type 2 diabetes mellitus (Chronic) 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 Allergies/Adverse Reactions: Allergies bee venom protein (honey bee) Allergy (Verified 12/13/17 09:30) Swelling metronidazole [From Flagyl] Allergy (Verified 12/13/17 09:30) Itching Home Medications: Ambulatory Orders Medication Instructions Recorded Atorvastatin Calcium [Lipitor] 10 mg PO QHS 01/08/17 Brimonidine Tartrate 0.2% 1 drop EACH EYE BID 01/08/17 [Brimonidine 0.2% 5Ml Bottle] Ergocalciferol [Vitamin D] 50,000 unit PO FR 01/08/17 Gabapentin [Neurontin] 1,600 mg PO QHS 01/08/17 Gabapentin [Neurontin] 600 mg PO DAILY 01/08/17 Insulin U-500 [Humulin R U-500 105 units SC DINNER 01/08/17 ([facility])] Insulin U-500 [Humulin R U-500 105 units SC LUNCH 01/08/17 ([facility])] Insulin U-500 [Humulin R U-500 160 units SC BREAKFAST 01/08/17 ([facility])] Latanoprost 0.005% [Xalatan 1 drop EACH EYE QHS 01/08/17 Opthalmic] Losartan Potassium [Cozaar] 50 mg PO DAILY 01/08/17 Nebivolol HCl [Bystolic (Beta 10 mg PO DAILY 01/08/17 Akira)] Omeprazole [Prilosec] 40 mg PO DAILY 01/08/17 Acetaminophen [Tylenol Tablet] 650 mg PO Q6H PRN PRN tablet 09/07/17 Clopidogrel Bisulfate [Plavix] 75 mg PO DAILY 09/07/17 Menthol/Lanolin/Calamine/Znox 1 applic TOPICAL 0600,2200 tube 09/21/17 [Calmoseptine Ointment] Nutritional Supplement [Madhu - 1 packet PO BIDCM #60 packet 09/21/17 [place] FLAVOR] Nystatin Powder [Mycostatin Powder] 1 applic TOPICAL 0600,2200 bottle 09/21/17 Ferrous Sulfate [Iron] 325 mg PO BID 10/14/17 Clindamycin HCl 300 mg PO [id number] #40 cap 12/13/17 Maternal Family History: Diabetes Paternal Family History: Hypertension Sibling Family History: Diabetes Smoking Status: Former smoker Physical Exam Vital Signs Temp Pulse Resp BP 97.5 F L 86 18 130/62 H 05/10/18 10:53 05/10/18 10:53 05/10/18 10:53 05/10/18 10:53 General: Alert, Oriented x3, Cooperative, No apparent distress, Well developed, Well nourished HEENT: Atraumatic, PERRLA, EOMI, Normocephalic Lungs: Normal air movement Psych/Mental Status: Normal Affect, Appropriate, Alert and oriented to time, place, person, mood and affect Assessment/Plan The patient appears to be tolerating hyperbaric oxygen therapy well, which will be continued as per the patient's medical plan.
--- NOTE | 2018-05-10 12:21 | HBO.PN.PCM_ITS ---
History of Present Illness Date of Service: 05/10/18 Presenting Chief Complaint: 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 Left stump site ulcer DEL BARRIOS is a 57 year old currently undergoing hyperbaric oxygen therapy for diabetic right foot ulcerations with necrosis of bone, Brooks Grade 3. Progress: The patient appears to be tolerating hyperbaric oxygen therapy well. Today's session represents the 58th such session of hyperbaric oxygen therapy. Tolerance of hyperbaric oxygen therapy: Hyperbaric oxygen therapy was administered as per the facility protocol. The patient tolerated hyperbaric oxygen therapy well, without complaints or complications. Upon emergence from the hyperbaric chamber, the patient's vital signs remained stable. Patient was discharged in good condition. Past Medical History Chronic Problems Chronic ulcer of right foot with fat layer exposed (Chronic) Ulcer of left lower extremity with fat layer exposed (Chronic) Ulcer of right lower extremity with fat layer exposed (Chronic) Ulcer of left lower extremity, limited to breakdown of skin (Chronic) Ulcer of left lower extremity, limited to breakdown of skin (Chronic) Non-pressure chronic ulcer of other part of right foot with fat layer exposed (Chronic) Complete below knee amputation of left lower extremity (Chronic) Ulcer of right foot with necrosis of muscle (Chronic) Ulcer of right foot with fat layer exposed (Chronic) 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) Delayed wound healing (Chronic) Malnutrition (Chronic) Venous insufficiency (Chronic) Lymphedema (Chronic) Edema of both legs (Chronic) GERD (gastroesophageal reflux disease) (Chronic) Hypertension (Chronic) Hyperlipemia (Chronic) Morbid obesity with BMI of 45.0-49.9, adult (Chronic) Hyperlipidemia associated with type 2 diabetes mellitus (Chronic) 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 Allergies/Adverse Reactions: Allergies bee venom protein (honey bee) Allergy (Verified 12/13/17 09:30) Swelling metronidazole [From Flagyl] Allergy (Verified 12/13/17 09:30) Itching Home Medications: Ambulatory Orders Medication Instructions Recorded Atorvastatin Calcium [Lipitor] 10 mg PO QHS 01/08/17 Brimonidine Tartrate 0.2% 1 drop EACH EYE BID 01/08/17 [Brimonidine 0.2% 5Ml Bottle] Ergocalciferol [Vitamin D] 50,000 unit PO FR 01/08/17 Gabapentin [Neurontin] 1,600 mg PO QHS 01/08/17 Gabapentin [Neurontin] 600 mg PO DAILY 01/08/17 Insulin U-500 [Humulin R U-500 105 units SC DINNER 01/08/17 ([facility])] Insulin U-500 [Humulin R U-500 105 units SC LUNCH 01/08/17 ([facility])] Insulin U-500 [Humulin R U-500 160 units SC BREAKFAST 01/08/17 ([facility])] Latanoprost 0.005% [Xalatan 1 drop EACH EYE QHS 01/08/17 Opthalmic] Losartan Potassium [Cozaar] 50 mg PO DAILY 01/08/17 Nebivolol HCl [Bystolic (Beta 10 mg PO DAILY 01/08/17 Akira)] Omeprazole [Prilosec] 40 mg PO DAILY 01/08/17 Acetaminophen [Tylenol Tablet] 650 mg PO Q6H PRN PRN tablet 09/07/17 Clopidogrel Bisulfate [Plavix] 75 mg PO DAILY 09/07/17 Menthol/Lanolin/Calamine/Znox 1 applic TOPICAL 0600,2200 tube 09/21/17 [Calmoseptine Ointment] Nutritional Supplement [Madhu - 1 packet PO BIDCM #60 packet 09/21/17 [place] FLAVOR] Nystatin Powder [Mycostatin Powder] 1 applic TOPICAL 0600,2200 bottle 09/21/17 Ferrous Sulfate [Iron] 325 mg PO BID 10/14/17 Clindamycin HCl 300 mg PO [id number] #40 cap 12/13/17 Maternal Family History: Diabetes Paternal Family History: Hypertension Sibling Family History: Diabetes Smoking Status: Former smoker Physical Exam Vital Signs Temp Pulse Resp BP 97.5 F L 86 18 130/62 H 05/10/18 10:53 05/10/18 10:53 05/10/18 10:53 05/10/18 10:53 General: Alert, Oriented x3, Cooperative, No apparent distress, Well developed, Well nourished HEENT: Atraumatic, PERRLA, EOMI, Normocephalic Lungs: Normal air movement Psych/Mental Status: Normal Affect, Appropriate, Alert and oriented to time, place, person, mood and affect Assessment/Plan The patient appears to be tolerating hyperbaric oxygen therapy well, which will be continued as per the patient's medical plan.
[2018-05-11 08:06] VITALS: BP 154/64; PULSE 90; RESP 18; TEMP 36
--- NOTE | 2018-05-11 09:09 | PCM.WC.PN ---
(1) Chronic ulcer of right foot with fat layer exposed Status: Chronic Current Visit: Yes Code(s): L97.512 - Non-pressure chronic ulcer of other part of right foot with fat layer exposed (2) Ulcer of left lower extremity with fat layer exposed Status: Chronic Current Visit: Yes Code(s): L97.922 - Non-pressure chronic ulcer of unspecified part of left lower leg with fat layer exposed (3) Type 2 diabetes mellitus with diabetic polyneuropathy Status: Chronic Current Visit: Yes Code(s): E11.42 - Type 2 diabetes mellitus with diabetic polyneuropathy (4) Delayed wound healing Status: Chronic Current Visit: Yes Code(s): T14.8 - Other injury of unspecified body region (5) Edema of both legs Status: Chronic Current Visit: Yes Code(s): R60.0 - Localized edema Type of Wound Date of Service: 05/11/18 Chief Complaint: 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 Left stump site ulcer History of Wound: 57-year-old white male returns to clinic for follow-up of bilateral leg ulcers and right foot ulcers. He denies fever, chill, nausea, vomiting, loss of appetite. He had multiple advanced wound care product applications. He continues with hyperbaric oxygen therapy sessions. He presents in a wheelchair today. He denies odors or redness. He has demonstrated significant delays in healing. He denies elevation or using his compression pumps as advised. Progress of Wound: Stable right toe area. Stable right heel area. Left stump site ulcer worse - Physical Exam Vital Signs Temp Pulse Resp BP 96.8 F L 90 18 154/64 H 05/11/18 08:06 05/11/18 08:06 05/11/18 08:06 05/11/18 08:06 General: Alert, Oriented x3, Cooperative Extremities: No cyanosis, Capillary Refill Less than 3 Seconds, No Calf Tenderness, Diminished Peripheral Pulses, Edema, - - lymphedema bilateral lower extremity Skin: Ulcer/ Wound - no purulence, no erythema, no streaking, no infection bilateral. right maceration noted, - - atrophic skin Wound Measurements and Assessment WC - Nurse 1 - General Ulcer Measurement Start: 05/09/18 09:56 Freq: Status: Active Protocol: Activity Type Activity Date Activity User E-Sign Co-Sign Detail Recorded Client Recorded Date Recorded By Document 05/11/18 08:06 RB [id number] 05/11/18 08:16 RB 05/11/18 08:06 Wound Center Nurse 1 [Ulcer Assessment] #22 left stump -Combined with other wound No -Current Size (cm) - Length 0.7 -Current Size (cm) - Width 0.8 -Current Size (cm) - Depth 0.1 -Total Square Cm 0.56 -Photo Taken No -Tunneling No -Undermining/Tunneling No -Circular Undermining No -Exudate Amt Large (67-100%) -Exudate Type Serosanguineous -Wound Margin Distinct, Outline Attached -Granulation Amt Medium (34-66%) -Granulation Quality Red -Slough/Fibrin Yes -Necrosis Amt Small (1-33%) -Necrotic Tissue Type Adherent Slough -Structure Exposed N/A -Texture (Martha-wound Skin Appearance) Assessed -Moisture (Martha-wound Skin Appearance Assessed ) -Color (Martha-wound Skin Appearance) Assessed -Temperature (Martha-wound Skin No Abnormality Appearance) (Pt Warm) -Tenderness on Palpation (Martha-wound No Skin Appearance) -Ulcer Cleansing Wound Cleanser -Foul Odor after Cleansing No -Anesthetic Used 4% Lidocaine Solution #13 R Med Heel -Combined with other wound No -Current Size (cm) - Length 1.4 -Current Size (cm) - Width 1.5 -Current Size (cm) - Depth 0.1 -Total Square Cm 2.10 -Photo Taken No -Tunneling No -Undermining/Tunneling No -Exudate Amt Large (67-100%) -Exudate Type Serosanguineous -Wound Margin Distinct, Outline Attached -Granulation Amt Small (1-33%) -Granulation Quality Pale -Slough/Fibrin Yes -Necrosis Amt Large (67-100%) -Necrotic Tissue Type Adherent Slough -Structure Exposed N/A -Texture (Martha-wound Skin Appearance) Assessed -Moisture (Martha-wound Skin Appearance Assessed ) -Color (Martha-wound Skin Appearance) Assessed -Temperature (Martha-wound Skin No Abnormality Appearance) (Pt Warm) -Tenderness on Palpation (Martha-wound No Skin Appearance) -Ulcer Cleansing Wound Cleanser -Foul Odor after Cleansing No -Anesthetic Used 4% Lidocaine Solution #21 Right Foot-Toes w/Metatarsal Head circumfrential -Combined with other wound No -Current Size (cm) - Length 11 -Current Size (cm) - Width 5 -Current Size (cm) - Depth 0.1 -Total Square Cm 55 -Photo Taken No -Tunneling No -Undermining/Tunneling No -Circular Undermining No -Exudate Amt Large (67-100%) -Exudate Type Serosanguineous -Wound Margin Distinct, Outline Attached -Granulation Amt Large (67-100%) -Granulation Quality [employer] -Necrosis Amt Medium (34-66%) -Necrotic Tissue Type Adherent Slough -Structure Exposed N/A -Texture (Martha-wound Skin Appearance) Assessed -Moisture (Martha-wound Skin Appearance Assessed ) -Color (Martha-wound Skin Appearance) Assessed -Temperature (Martha-wound Skin No Abnormality Appearance) (Pt Warm) -Tenderness on Palpation (Martha-wound No Skin Appearance) -Ulcer Cleansing Wound Cleanser -Foul Odor after Cleansing No -Anesthetic Used 4% Lidocaine Solution [Edema Assessment] -Lower Limb Edema Present Yes -Right Calf (cm) 36.3 -Right Ankle (cm) 26.2 -Left Calf (cm) 42.7 WC - Nurse 2 - General Ulcer CM Notes Start: 05/09/18 09:56 Freq: Status: Active Protocol: Activity Type Activity Date Activity User E-Sign Co-Sign Detail Recorded Client Recorded Date Recorded By Document 05/11/18 08:33 [id number] 05/11/18 08:38 05/11/18 08:33 Wound Center Nurse 2 [Procedure/Treatment] #22 left stump -Time 08:35 -Correct Patient Yes -Correct Side, Site, Position Yes -Correct Procedure Yes -Procedure Performed Yes -Type of Procedure Debridement -Clinical Debridement Subcutaneous -Post Debridement Size (cm) - Length 0.8 -Post Debridement Size (cm) - Width 0.9 -Post Debridement Size (cm) - Depth 0.1 -Total Square Cm 0.72 -Wound/Ulcer Outcome Not Healed -Ulcer Cleansing Rinsed/ Irrigated with Saline -Foul Odor after Cleansing No -Bioengineered Tissue No -Topical Lidocaine (%) 4 -Bleeding Controlled with Pressure -Offloading Yes -Treatment Response Procedure Tolerated Well #13 R Med Heel -Time 08:35 -Correct Patient Yes -Correct Side, Site, Position Yes -Correct Procedure Yes -Procedure Performed Yes -Type of Procedure Debridement -Clinical Debridement Subcutaneous -Post Debridement Size (cm) - Length 1.5 -Post Debridement Size (cm) - Width 1.6 -Post Debridement Size (cm) - Depth 0.1 -Total Square Cm 2.40 -Wound/Ulcer Outcome Not Healed -Ulcer Cleansing Rinsed/ Irrigated with Saline -Foul Odor after Cleansing No -Bioengineered Tissue Yes -Type of bioengineered Tissue NU-SHIELD -Expiration Date 02/24/23 -Product Lot Number [id number] -Percent Used 50 -Saline Lot Number [id number] -Topical Lidocaine (%) 4 -Bleeding Controlled with Pressure -Offloading Yes -Treatment Response Procedure Tolerated Well #21 Right Foot-Toes w/Metatarsal Head circumfrential -Time 08:36 -Correct Patient Yes -Correct Side, Site, Position Yes -Correct Procedure Yes -Procedure Performed Yes -Type of Procedure Debridement -Clinical Debridement Subcutaneous -Post Debridement Size (cm) - Length 11.1 -Post Debridement Size (cm) - Width 5.1 -Post Debridement Size (cm) - Depth 0.1 -Total Square Cm 56.61 -Wound/Ulcer Outcome Not Healed -Ulcer Cleansing Rinsed/ Irrigated with Saline -Foul Odor after Cleansing No -Bioengineered Tissue No -Expiration Date 02/24/23 -Product Lot Number [id number] -Percent Used 50 -Saline Lot Number [id number] -Topical Lidocaine (%) 4 -Bleeding Controlled with Pressure -Offloading Yes -Treatment Response Procedure Tolerated Well [See Physician Procedure note for Specifics] Pain Scale: 0-10 Numeric [Pain] -Is Patient Pain Free? Yes Musculoskeletal: No Tenderness to Palpation of Joints or Extremities, Muscle Wasting Neurological: - - lack of epicritic sensation via light touch consistent with neuropathy Psych/Mental Status: Normal Affect, Appropriate Debridement Note Post-Debridement Measurements/Treatment WC - Nurse 2 - General Ulcer CM Notes Start: 05/09/18 09:56 Freq: Status: Active Protocol: Activity Type Activity Date Activity User E-Sign Co-Sign Detail Recorded Client Recorded Date Recorded By Document 05/11/18 08:33 [id number] 05/11/18 08:38 TM 05/11/18 08:33 Wound Center Nurse 2 #22 left stump -Time 08:35 -Correct Patient Yes -Correct Side, Site, Position Yes -Correct Procedure Yes -Procedure Performed Yes -Type of Procedure Debridement -Clinical Debridement Subcutaneous -Post Debridement Size (cm) - Length 0.8 -Post Debridement Size (cm) - Width 0.9 -Post Debridement Size (cm) - Depth 0.1 -Total Square Cm 0.72 -Wound/Ulcer Outcome Not Healed -Ulcer Cleansing Rinsed/ Irrigated with Saline -Foul Odor after Cleansing No -Bioengineered Tissue No -Topical Lidocaine (%) 4 -Bleeding Controlled with Pressure -Offloading Yes -Treatment Response Procedure Tolerated Well #13 R Med Heel -Time 08:35 -Correct Patient Yes -Correct Side, Site, Position Yes -Correct Procedure Yes -Procedure Performed Yes -Type of Procedure Debridement -Clinical Debridement Subcutaneous -Post Debridement Size (cm) - Length 1.5 -Post Debridement Size (cm) - Width 1.6 -Post Debridement Size (cm) - Depth 0.1 -Total Square Cm 2.40 -Wound/Ulcer Outcome Not Healed -Ulcer Cleansing Rinsed/ Irrigated with Saline -Foul Odor after Cleansing No -Bioengineered Tissue Yes -Type of bioengineered Tissue NU-SHIELD -Expiration Date 02/24/23 -Product Lot Number [id number] -Percent Used 50 -Saline Lot Number [id number] -Topical Lidocaine (%) 4 -Bleeding Controlled with Pressure -Offloading Yes -Treatment Response Procedure Tolerated Well #21 Right Foot-Toes w/Metatarsal Head circumfrential -Time 08:36 -Correct Patient Yes -Correct Side, Site, Position Yes -Correct Procedure Yes -Procedure Performed Yes -Type of Procedure Debridement -Clinical Debridement Subcutaneous -Post Debridement Size (cm) - Length 11.1 -Post Debridement Size (cm) - Width 5.1 -Post Debridement Size (cm) - Depth 0.1 -Total Square Cm 56.61 -Wound/Ulcer Outcome Not Healed -Ulcer Cleansing Rinsed/ Irrigated with Saline -Foul Odor after Cleansing No -Bioengineered Tissue No -Expiration Date 02/24/23 -Product Lot Number [id number] -Percent Used 50 -Saline Lot Number [id number] -Topical Lidocaine (%) 4 -Bleeding Controlled with Pressure -Offloading Yes -Treatment Response Procedure Tolerated Well Pain Scale: 0-10 Numeric Is Patient Pain Free? Yes Wound debrided: heel Laterality: Right Wound Grade/Stage: grade 3 Type of Debridement: Excisional debridement Anesthesia Used: 4% Lidocaine Solution Depth: in the subcutaneous layer Percentage of wound debrided: 100 Instrument Used: #15 blade Tissue Removed: fibrous, devitalized subcutaneous, biofilm, slough Severity: Fat Layer Exposed Amount of bleeding with debridement: Mild Bleeding Controlled with: Pressure Patient tolerated procedure well - Additional Wound Wound debrided: toes Laterality: Right Wound Grade/Stage: grade 1 Type of Debridement: Excisional debridement Anesthesia Used: 4% Lidocaine Solution Depth: in the subcutaneous layer Percentage of wound debrided: 100 Instrument Used: #15 blade Tissue Removed: fibrous, devitalized subcutaneous, biofilm, slough Severity: Fat Layer Exposed Amount of bleeding with debridement: Mild Bleeding Controlled with: Pressure Patient tolerated procedure: Patient tolerated procedure well - Additional Wound Wound debrided: leg cluster at bka stump Laterality: Left Wound Grade/Stage: grade 1 Type of Debridement: Excisional debridement Anesthesia Used: 4% Lidocaine Solution Depth: in the subcutaneous layer Percentage of wound debrided: 100 Instrument Used: #15 blade Tissue Removed: fibrous, devitalized subcutaneous, biofilm, slough Severity: Fat Layer Exposed Amount of bleeding with debridement: Mild Bleeding Controlled with: Pressure Patient tolerated procedure: Patient tolerated procedure well Assessment/Plan Active Problems Chronic ulcer of right foot with fat layer exposed (Chronic) Ulcer of left lower extremity with fat layer exposed (Chronic) Type 2 diabetes mellitus with diabetic polyneuropathy (Chronic) Delayed wound healing (Chronic) Edema of both legs (Chronic) Assessment: ulcer right forefoot (digit 2). right heel ulcer muscle involved and exposed fascia without infection noted today (previous grade 3); s/p surgical debridement and application of advance wound care products (amniofil and epicord). 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 Lymphedema. Chronic lower extremity edema and venous insufficiency. Morbid obesity. Type 2 diabetes uncontrolled with peripheral neuropathy. CKD. Hypertension. Malnutrition. Delayed wound healing. Nonadherence to treatment plan Plan: I reviewed and discussed his case debridement done as documented above in the clinical panel; this procedure was well tolerated. Advance wound care product, nushield, was applied according to standard protocol and this was further secured with a wound veil and Steri-Strips. Verbal consent was obtained. He tolerated this well. Continue compression and elevate lower extremity when sitting and in bed. Optimal blood sugar contol. We discussed compliance and I recommend elevating only 75% of the time. To avoid trauma to the right foot as he sustained last week. Continue protein suppplements and increased protein in diet. To continue hyperbaric oxygen therapy as scheduled on complaint basis. I encouraged continued use. To improve compliance with compression pumps. Follow up in 1 week with at the wound healing center or call sooner if he has any questions or concerns.
--- NOTE | 2018-05-11 09:14 | PN.PCM_ITS ---
(1) Chronic ulcer of right foot with fat layer exposed Status: Chronic Current Visit: Yes Code(s): L97.512 - Non-pressure chronic ulcer of other part of right foot with fat layer exposed (2) Ulcer of left lower extremity with fat layer exposed Status: Chronic Current Visit: Yes Code(s): L97.922 - Non-pressure chronic ulcer of unspecified part of left lower leg with fat layer exposed (3) Type 2 diabetes mellitus with diabetic polyneuropathy Status: Chronic Current Visit: Yes Code(s): E11.42 - Type 2 diabetes mellitus with diabetic polyneuropathy (4) Delayed wound healing Status: Chronic Current Visit: Yes Code(s): T14.8 - Other injury of unspecified body region (5) Edema of both legs Status: Chronic Current Visit: Yes Code(s): R60.0 - Localized edema Type of Wound Date of Service: 05/11/18 Chief Complaint: 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 Left stump site ulcer History of Wound: 57-year-old white male returns to clinic for follow-up of bilateral leg ulcers and right foot ulcers. He denies fever, chill, nausea, vomiting, loss of appetite. He had multiple advanced wound care product applications. He continues with hyperbaric oxygen therapy sessions. He presents in a wheelchair today. He denies odors or redness. He has demonstrated significant delays in healing. He denies elevation or using his compression pumps as advised. Progress of Wound: Stable right toe area. Stable right heel area. Left stump site ulcer worse - Physical Exam Vital Signs Temp Pulse Resp BP 96.8 F L 90 18 154/64 H 05/11/18 08:06 05/11/18 08:06 05/11/18 08:06 05/11/18 08:06 General: Alert, Oriented x3, Cooperative Extremities: No cyanosis, Capillary Refill Less than 3 Seconds, No Calf Tenderness, Diminished Peripheral Pulses, Edema, - - lymphedema bilateral lower extremity Skin: Ulcer/ Wound - no purulence, no erythema, no streaking, no infection bilateral. right maceration noted, - - atrophic skin Wound Measurements and Assessment WC - Nurse 1 - General Ulcer Measurement Start: 05/09/18 09:56 Freq: Status: Active Protocol: Activity Type Activity Date Activity User E-Sign Co-Sign Detail Recorded Client Recorded Date Recorded By Document 05/11/18 08:06 RB [id number] 05/11/18 08:16 RB 05/11/18 08:06 Wound Center Nurse 1 [Ulcer Assessment] #22 left stump -Combined with other wound No -Current Size (cm) - Length 0.7 -Current Size (cm) - Width 0.8 -Current Size (cm) - Depth 0.1 -Total Square Cm 0.56 -Photo Taken No -Tunneling No -Undermining/Tunneling No -Circular Undermining No -Exudate Amt Large (67-100%) -Exudate Type Serosanguineous -Wound Margin Distinct, Outline Attached -Granulation Amt Medium (34-66%) -Granulation Quality Red -Slough/Fibrin Yes -Necrosis Amt Small (1-33%) -Necrotic Tissue Type Adherent Slough -Structure Exposed N/A -Texture (Martha-wound Skin Appearance) Assessed -Moisture (Martha-wound Skin Appearance Assessed ) -Color (Martha-wound Skin Appearance) Assessed -Temperature (Martha-wound Skin No Abnormality Appearance) (Pt Warm) -Tenderness on Palpation (Martha-wound No Skin Appearance) -Ulcer Cleansing Wound Cleanser -Foul Odor after Cleansing No -Anesthetic Used 4% Lidocaine Solution #13 R Med Heel -Combined with other wound No -Current Size (cm) - Length 1.4 -Current Size (cm) - Width 1.5 -Current Size (cm) - Depth 0.1 -Total Square Cm 2.10 -Photo Taken No -Tunneling No -Undermining/Tunneling No -Exudate Amt Large (67-100%) -Exudate Type Serosanguineous -Wound Margin Distinct, Outline Attached -Granulation Amt Small (1-33%) -Granulation Quality Pale -Slough/Fibrin Yes -Necrosis Amt Large (67-100%) -Necrotic Tissue Type Adherent Slough -Structure Exposed N/A -Texture (Martha-wound Skin Appearance) Assessed -Moisture (Martha-wound Skin Appearance Assessed ) -Color (Martha-wound Skin Appearance) Assessed -Temperature (Martha-wound Skin No Abnormality Appearance) (Pt Warm) -Tenderness on Palpation (Martha-wound No Skin Appearance) -Ulcer Cleansing Wound Cleanser -Foul Odor after Cleansing No -Anesthetic Used 4% Lidocaine Solution #21 Right Foot-Toes w/Metatarsal Head circumfrential -Combined with other wound No -Current Size (cm) - Length 11 -Current Size (cm) - Width 5 -Current Size (cm) - Depth 0.1 -Total Square Cm 55 -Photo Taken No -Tunneling No -Undermining/Tunneling No -Circular Undermining No -Exudate Amt Large (67-100%) -Exudate Type Serosanguineous -Wound Margin Distinct, Outline Attached -Granulation Amt Large (67-100%) -Granulation Quality [place] -Necrosis Amt Medium (34-66%) -Necrotic Tissue Type Adherent Slough -Structure Exposed N/A -Texture (Martha-wound Skin Appearance) Assessed -Moisture (Martha-wound Skin Appearance Assessed ) -Color (Martha-wound Skin Appearance) Assessed -Temperature (Martha-wound Skin No Abnormality Appearance) (Pt Warm) -Tenderness on Palpation (Martha-wound No Skin Appearance) -Ulcer Cleansing Wound Cleanser -Foul Odor after Cleansing No -Anesthetic Used 4% Lidocaine Solution [Edema Assessment] -Lower Limb Edema Present Yes -Right Calf (cm) 36.3 -Right Ankle (cm) 26.2 -Left Calf (cm) 42.7 WC - Nurse 2 - General Ulcer CM Notes Start: 05/09/18 09:56 Freq: Status: Active Protocol: Activity Type Activity Date Activity User E-Sign Co-Sign Detail Recorded Client Recorded Date Recorded By Document 05/11/18 08:33 [id number] 05/11/18 08:38 05/11/18 08:33 Wound Center Nurse 2 [Procedure/Treatment] #22 left stump -Time 08:35 -Correct Patient Yes -Correct Side, Site, Position Yes -Correct Procedure Yes -Procedure Performed Yes -Type of Procedure Debridement -Clinical Debridement Subcutaneous -Post Debridement Size (cm) - Length 0.8 -Post Debridement Size (cm) - Width 0.9 -Post Debridement Size (cm) - Depth 0.1 -Total Square Cm 0.72 -Wound/Ulcer Outcome Not Healed -Ulcer Cleansing Rinsed/ Irrigated with Saline -Foul Odor after Cleansing No -Bioengineered Tissue No -Topical Lidocaine (%) 4 -Bleeding Controlled with Pressure -Offloading Yes -Treatment Response Procedure Tolerated Well #13 R Med Heel -Time 08:35 -Correct Patient Yes -Correct Side, Site, Position Yes -Correct Procedure Yes -Procedure Performed Yes -Type of Procedure Debridement -Clinical Debridement Subcutaneous -Post Debridement Size (cm) - Length 1.5 -Post Debridement Size (cm) - Width 1.6 -Post Debridement Size (cm) - Depth 0.1 -Total Square Cm 2.40 -Wound/Ulcer Outcome Not Healed -Ulcer Cleansing Rinsed/ Irrigated with Saline -Foul Odor after Cleansing No -Bioengineered Tissue Yes -Type of bioengineered Tissue NU-SHIELD -Expiration Date 02/24/23 -Product Lot Number [id number] -Percent Used 50 -Saline Lot Number [id number] -Topical Lidocaine (%) 4 -Bleeding Controlled with Pressure -Offloading Yes -Treatment Response Procedure Tolerated Well #21 Right Foot-Toes w/Metatarsal Head circumfrential -Time 08:36 -Correct Patient Yes -Correct Side, Site, Position Yes -Correct Procedure Yes -Procedure Performed Yes -Type of Procedure Debridement -Clinical Debridement Subcutaneous -Post Debridement Size (cm) - Length 11.1 -Post Debridement Size (cm) - Width 5.1 -Post Debridement Size (cm) - Depth 0.1 -Total Square Cm 56.61 -Wound/Ulcer Outcome Not Healed -Ulcer Cleansing Rinsed/ Irrigated with Saline -Foul Odor after Cleansing No -Bioengineered Tissue No -Expiration Date 02/24/23 -Product Lot Number [id number] -Percent Used 50 -Saline Lot Number [id number] -Topical Lidocaine (%) 4 -Bleeding Controlled with Pressure -Offloading Yes -Treatment Response Procedure Tolerated Well [See Physician Procedure note for Specifics] Pain Scale: 0-10 Numeric [Pain] -Is Patient Pain Free? Yes Musculoskeletal: No Tenderness to Palpation of Joints or Extremities, Muscle Wasting Neurological: - - lack of epicritic sensation via light touch consistent with neuropathy Psych/Mental Status: Normal Affect, Appropriate Debridement Note Post-Debridement Measurements/Treatment WC - Nurse 2 - General Ulcer CM Notes Start: 05/09/18 09:56 Freq: Status: Active Protocol: Activity Type Activity Date Activity User E-Sign Co-Sign Detail Recorded Client Recorded Date Recorded By Document 05/11/18 08:33 [id number] 05/11/18 08:38 TM 05/11/18 08:33 Wound Center Nurse 2 #22 left stump -Time 08:35 -Correct Patient Yes -Correct Side, Site, Position Yes -Correct Procedure Yes -Procedure Performed Yes -Type of Procedure Debridement -Clinical Debridement Subcutaneous -Post Debridement Size (cm) - Length 0.8 -Post Debridement Size (cm) - Width 0.9 -Post Debridement Size (cm) - Depth 0.1 -Total Square Cm 0.72 -Wound/Ulcer Outcome Not Healed -Ulcer Cleansing Rinsed/ Irrigated with Saline -Foul Odor after Cleansing No -Bioengineered Tissue No -Topical Lidocaine (%) 4 -Bleeding Controlled with Pressure -Offloading Yes -Treatment Response Procedure Tolerated Well #13 R Med Heel -Time 08:35 -Correct Patient Yes -Correct Side, Site, Position Yes -Correct Procedure Yes -Procedure Performed Yes -Type of Procedure Debridement -Clinical Debridement Subcutaneous -Post Debridement Size (cm) - Length 1.5 -Post Debridement Size (cm) - Width 1.6 -Post Debridement Size (cm) - Depth 0.1 -Total Square Cm 2.40 -Wound/Ulcer Outcome Not Healed -Ulcer Cleansing Rinsed/ Irrigated with Saline -Foul Odor after Cleansing No -Bioengineered Tissue Yes -Type of bioengineered Tissue NU-SHIELD -Expiration Date 02/24/23 -Product Lot Number [id number] -Percent Used 50 -Saline Lot Number [id number] -Topical Lidocaine (%) 4 -Bleeding Controlled with Pressure -Offloading Yes -Treatment Response Procedure Tolerated Well #21 Right Foot-Toes w/Metatarsal Head circumfrential -Time 08:36 -Correct Patient Yes -Correct Side, Site, Position Yes -Correct Procedure Yes -Procedure Performed Yes -Type of Procedure Debridement -Clinical Debridement Subcutaneous -Post Debridement Size (cm) - Length 11.1 -Post Debridement Size (cm) - Width 5.1 -Post Debridement Size (cm) - Depth 0.1 -Total Square Cm 56.61 -Wound/Ulcer Outcome Not Healed -Ulcer Cleansing Rinsed/ Irrigated with Saline -Foul Odor after Cleansing No -Bioengineered Tissue No -Expiration Date 02/24/23 -Product Lot Number [id number] -Percent Used 50 -Saline Lot Number [id number] -Topical Lidocaine (%) 4 -Bleeding Controlled with Pressure -Offloading Yes -Treatment Response Procedure Tolerated Well Pain Scale: 0-10 Numeric Is Patient Pain Free? Yes Wound debrided: heel Laterality: Right Wound Grade/Stage: grade 3 Type of Debridement: Excisional debridement Anesthesia Used: 4% Lidocaine Solution Depth: in the subcutaneous layer Percentage of wound debrided: 100 Instrument Used: #15 blade Tissue Removed: fibrous, devitalized subcutaneous, biofilm, slough Severity: Fat Layer Exposed Amount of bleeding with debridement: Mild Bleeding Controlled with: Pressure Patient tolerated procedure well - Additional Wound Wound debrided: toes Laterality: Right Wound Grade/Stage: grade 1 Type of Debridement: Excisional debridement Anesthesia Used: 4% Lidocaine Solution Depth: in the subcutaneous layer Percentage of wound debrided: 100 Instrument Used: #15 blade Tissue Removed: fibrous, devitalized subcutaneous, biofilm, slough Severity: Fat Layer Exposed Amount of bleeding with debridement: Mild Bleeding Controlled with: Pressure Patient tolerated procedure: Patient tolerated procedure well - Additional Wound Wound debrided: leg cluster at bka stump Laterality: Left Wound Grade/Stage: grade 1 Type of Debridement: Excisional debridement Anesthesia Used: 4% Lidocaine Solution Depth: in the subcutaneous layer Percentage of wound debrided: 100 Instrument Used: #15 blade Tissue Removed: fibrous, devitalized subcutaneous, biofilm, slough Severity: Fat Layer Exposed Amount of bleeding with debridement: Mild Bleeding Controlled with: Pressure Patient tolerated procedure: Patient tolerated procedure well Assessment/Plan Active Problems Chronic ulcer of right foot with fat layer exposed (Chronic) Ulcer of left lower extremity with fat layer exposed (Chronic) Type 2 diabetes mellitus with diabetic polyneuropathy (Chronic) Delayed wound healing (Chronic) Edema of both legs (Chronic) Assessment: ulcer right forefoot (digit 2). right heel ulcer muscle involved and exposed fascia without infection noted today (previous grade 3); s/p surgical debridement and application of advance wound care products (amniofil and epicord). 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 Lymphedema. Chronic lower extremity edema and venous insufficiency. Morbid obesity. Type 2 diabetes uncontrolled with peripheral neuropathy. CKD. Hypertension. Malnutrition. Delayed wound healing. Nonadherence to treatment plan Plan: I reviewed and discussed his case debridement done as documented above in the clinical panel; this procedure was well tolerated. Advance wound care product, nushield, was applied according to standard protocol and this was further secured with a wound veil and Steri-Strips. Verbal consent was obtained. He tolerated this well. Continue compression and elevate lower extremity when sitting and in bed. Optimal blood sugar contol. We discussed compliance and I recommend elevating only 75% of the time. To avoid trauma to the right foot as he sustained last week. Continue protein suppplements and increased protein in diet. To continue hyperbaric oxygen therapy as scheduled on complaint basis. I encouraged continued use. To improve compliance with compression pumps. Follow up in 1 week with at the wound healing center or call sooner if he has any questions or concerns.
[2018-05-11 09:26] LABS: Bedside Glucose 192 mg/dL (70-110)
[2018-05-11 11:30] LABS: Bedside Glucose 136 mg/dL (70-110)
[2018-05-11 11:43] VITALS: BP 129/68; BP 131/83; PULSE 88; PULSE 89; RESP 18; TEMP 35.7; TEMP 35.9
--- NOTE | 2018-05-11 13:48 | PCM.HBO.PN ---
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 Left stump site ulcer DEL BARRIOS is a 57 year old currently undergoing hyperbaric oxygen therapy for diabetic right foot ulcerations with necrosis of bone, Brooks Grade 3. Progress: The patient appears to be tolerating hyperbaric oxygen therapy well. Today's session represents the 59th such session of hyperbaric oxygen therapy. Tolerance of hyperbaric oxygen therapy: Hyperbaric oxygen therapy was administered as per the facility protocol. The patient tolerated hyperbaric oxygen therapy well, without complaints or complications. Upon emergence from the hyperbaric chamber, the patient's vital signs remained stable. Patient was discharged in good condition. Past Medical History Chronic Problems Chronic ulcer of right foot with fat layer exposed (Chronic) Ulcer of left lower extremity with fat layer exposed (Chronic) Ulcer of right lower extremity with fat layer exposed (Chronic) Ulcer of left lower extremity, limited to breakdown of skin (Chronic) Ulcer of left lower extremity, limited to breakdown of skin (Chronic) Non-pressure chronic ulcer of other part of right foot with fat layer exposed (Chronic) Complete below knee amputation of left lower extremity (Chronic) Ulcer of right foot with necrosis of muscle (Chronic) Ulcer of right foot with fat layer exposed (Chronic) 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) Delayed wound healing (Chronic) Malnutrition (Chronic) Venous insufficiency (Chronic) Lymphedema (Chronic) Edema of both legs (Chronic) GERD (gastroesophageal reflux disease) (Chronic) Hypertension (Chronic) Hyperlipemia (Chronic) Morbid obesity with BMI of 45.0-49.9, adult (Chronic) Hyperlipidemia associated with type 2 diabetes mellitus (Chronic) 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 Allergies/Adverse Reactions: Allergies bee venom protein (honey bee) Allergy (Verified 12/13/17 09:30) Swelling metronidazole [From Flagyl] Allergy (Verified 12/13/17 09:30) Itching Home Medications: Ambulatory Orders Medication Instructions Recorded Atorvastatin Calcium [Lipitor] 10 mg PO QHS 01/08/17 Brimonidine Tartrate 0.2% 1 drop EACH EYE BID 01/08/17 [Brimonidine 0.2% 5Ml Bottle] Ergocalciferol [Vitamin D] 50,000 unit PO FR 01/08/17 Gabapentin [Neurontin] 1,600 mg PO QHS 01/08/17 Gabapentin [Neurontin] 600 mg PO DAILY 01/08/17 Insulin U-500 [Humulin R U-500 105 units SC DINNER 01/08/17 ([facility])] Insulin U-500 [Humulin R U-500 105 units SC LUNCH 01/08/17 ([facility])] Insulin U-500 [Humulin R U-500 160 units SC BREAKFAST 01/08/17 ([facility])] Latanoprost 0.005% [Xalatan 1 drop EACH EYE QHS 01/08/17 Opthalmic] Losartan Potassium [Cozaar] 50 mg PO DAILY 01/08/17 Nebivolol HCl [Bystolic (Beta 10 mg PO DAILY 01/08/17 Akira)] Omeprazole [Prilosec] 40 mg PO DAILY 01/08/17 Acetaminophen [Tylenol Tablet] 650 mg PO Q6H PRN PRN tablet 09/07/17 Clopidogrel Bisulfate [Plavix] 75 mg PO DAILY 09/07/17 Menthol/Lanolin/Calamine/Znox 1 applic TOPICAL 0600,2200 tube 09/21/17 [Calmoseptine Ointment] Nutritional Supplement [Madhu - 1 packet PO BIDCM #60 packet 09/21/17 [place]ANGE FLAVOR] Nystatin Powder [Mycostatin Powder] 1 applic TOPICAL 0600,2200 bottle 09/21/17 Ferrous Sulfate [Iron] 325 mg PO BID 10/14/17 Clindamycin HCl 300 mg PO [id number] #40 cap 12/13/17 Maternal Family History: Diabetes Paternal Family History: Hypertension Sibling Family History: Diabetes Smoking Status: Former smoker Physical Exam Vital Signs Temp Pulse Resp BP 96.2 F L 89 18 129/68 H 05/11/18 11:43 05/11/18 11:43 05/11/18 11:43 05/11/18 11:43 General: Alert, Oriented x3, Cooperative, No apparent distress HEENT: Atraumatic, TM's Clear Lungs: Clear to auscultation, Normal air movement Cardiovascular: Regular rate, Regular Rhythm Psych/Mental Status: Normal Affect, Appropriate, Alert and oriented to time, place, person, mood and affect Assessment/Plan Active Problems Chronic ulcer of right foot with fat layer exposed (Chronic) Ulcer of left lower extremity with fat layer exposed (Chronic) Type 2 diabetes mellitus with diabetic polyneuropathy (Chronic) Delayed wound healing (Chronic) Edema of both legs (Chronic) The patient appears to be tolerating hyperbaric oxygen therapy well, which will be continued as per the patient's medical plan.
[2018-05-13 09:56] LABS: Bedside Glucose 182 mg/dL (70-110)
[2018-05-13 10:07] VITALS: BP 120/64; BP 135/66; PULSE 79; PULSE 83; RESP 16; TEMP 35.2; TEMP 35.9
[2018-05-13 11:51] LABS: Bedside Glucose 133 mg/dL (70-110)
--- NOTE | 2018-05-13 12:30 | PCM.HBO.PN ---
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 Left stump site ulcer DEL BARRIOS is a 57 year old currently undergoing hyperbaric oxygen therapy for diabetic right foot ulcerations with necrosis of bone, Brooks Grade 3. Progress: The patient appears to be tolerating hyperbaric oxygen therapy well. Today's session represents the 59th such session of hyperbaric oxygen therapy. Tolerance of hyperbaric oxygen therapy: Hyperbaric oxygen therapy was administered as per the facility protocol. The patient tolerated hyperbaric oxygen therapy well, without complaints or complications. Upon emergence from the hyperbaric chamber, the patient's vital signs remained stable. Patient was discharged in good condition. Past Medical History Chronic Problems Chronic ulcer of right foot with fat layer exposed (Chronic) Ulcer of left lower extremity with fat layer exposed (Chronic) Ulcer of right lower extremity with fat layer exposed (Chronic) Ulcer of left lower extremity, limited to breakdown of skin (Chronic) Ulcer of left lower extremity, limited to breakdown of skin (Chronic) Non-pressure chronic ulcer of other part of right foot with fat layer exposed (Chronic) Complete below knee amputation of left lower extremity (Chronic) Ulcer of right foot with necrosis of muscle (Chronic) Ulcer of right foot with fat layer exposed (Chronic) 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) Delayed wound healing (Chronic) Malnutrition (Chronic) Venous insufficiency (Chronic) Lymphedema (Chronic) Edema of both legs (Chronic) GERD (gastroesophageal reflux disease) (Chronic) Hypertension (Chronic) Hyperlipemia (Chronic) Morbid obesity with BMI of 45.0-49.9, adult (Chronic) Hyperlipidemia associated with type 2 diabetes mellitus (Chronic) 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 Allergies/Adverse Reactions: Allergies bee venom protein (honey bee) Allergy (Verified 12/13/17 09:30) Swelling metronidazole [From Flagyl] Allergy (Verified 12/13/17 09:30) Itching Home Medications: Ambulatory Orders Medication Instructions Recorded Atorvastatin Calcium [Lipitor] 10 mg PO QHS 01/08/17 Brimonidine Tartrate 0.2% 1 drop EACH EYE BID 01/08/17 [Brimonidine 0.2% 5Ml Bottle] Ergocalciferol [Vitamin D] 50,000 unit PO FR 01/08/17 Gabapentin [Neurontin] 1,600 mg PO QHS 01/08/17 Gabapentin [Neurontin] 600 mg PO DAILY 01/08/17 Insulin U-500 [Humulin R U-500 105 units SC DINNER 01/08/17 ([facility])] Insulin U-500 [Humulin R U-500 105 units SC LUNCH 01/08/17 ([facility])] Insulin U-500 [Humulin R U-500 160 units SC BREAKFAST 01/08/17 ([facility])] Latanoprost 0.005% [Xalatan 1 drop EACH EYE QHS 01/08/17 Opthalmic] Losartan Potassium [Cozaar] 50 mg PO DAILY 01/08/17 Nebivolol HCl [Bystolic (Beta 10 mg PO DAILY 01/08/17 Akira)] Omeprazole [Prilosec] 40 mg PO DAILY 01/08/17 Acetaminophen [Tylenol Tablet] 650 mg PO Q6H PRN PRN tablet 09/07/17 Clopidogrel Bisulfate [Plavix] 75 mg PO DAILY 09/07/17 Menthol/Lanolin/Calamine/Znox 1 applic TOPICAL 0600,2200 tube 09/21/17 [Calmoseptine Ointment] Nutritional Supplement [Madhu - 1 packet PO BIDCM #60 packet 09/21/17 [place] FLAVOR] Nystatin Powder [Mycostatin Powder] 1 applic TOPICAL 0600,2200 bottle 09/21/17 Ferrous Sulfate [Iron] 325 mg PO BID 10/14/17 Clindamycin HCl 300 mg PO [id number] #40 cap 12/13/17 Maternal Family History: Diabetes Paternal Family History: Hypertension Sibling Family History: Diabetes Smoking Status: Former smoker Physical Exam Vital Signs Temp Pulse Resp BP 96.7 F L 83 16 135/66 H 05/13/18 10:07 05/13/18 10:07 05/13/18 10:07 05/13/18 10:07 Assessment/Plan Active Problems Chronic ulcer of right foot with fat layer exposed (Chronic) Ulcer of left lower extremity with fat layer exposed (Chronic) Type 2 diabetes mellitus with diabetic polyneuropathy (Chronic) Delayed wound healing (Chronic) Edema of both legs (Chronic) The patient appears to be tolerating hyperbaric oxygen therapy well, which will be continued as per the patient's medical plan.
[2018-05-16 10:15] LABS: Bedside Glucose 153 mg/dL (70-110)
[2018-05-16 13:01] LABS: Bedside Glucose 92 mg/dL (70-110)
[2018-05-16 13:37] VITALS: BP 123/70; BP 140/70; PULSE 78; PULSE 79; RESP 18; TEMP 35.9; TEMP 37
--- NOTE | 2018-05-16 23:43 | HBO.PN.PCM_ITS ---
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 Progress: The patient appears to be tolerating hyperbaric oxygen therapy well. This is his 2nd treatment course and his 61st session of hyperbaric oxygen therapy. Tolerance of hyperbaric oxygen therapy: Hyperbaric oxygen therapy was administered as per the facility's protocol. The patient tolerated hyperbaric oxygen therapy well, without complaints or complications. Upon emergence from the hyperbaric chamber, patient's vital signs remained stable. Patient was discharged in good condition. His blood glucose was 153 before the treatment. His blood glucose was 92 after the treatment. Past Medical History Chronic Problems Chronic ulcer of right foot with fat layer exposed (Chronic) Ulcer of left lower extremity with fat layer exposed (Chronic) Ulcer of right lower extremity with fat layer exposed (Chronic) Ulcer of left lower extremity, limited to breakdown of skin (Chronic) Ulcer of left lower extremity, limited to breakdown of skin (Chronic) Non-pressure chronic ulcer of other part of right foot with fat layer exposed (Chronic) Complete below knee amputation of left lower extremity (Chronic) Ulcer of right foot with necrosis of muscle (Chronic) Ulcer of right foot with fat layer exposed (Chronic) 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) Delayed wound healing (Chronic) Malnutrition (Chronic) Venous insufficiency (Chronic) Lymphedema (Chronic) Edema of both legs (Chronic) GERD (gastroesophageal reflux disease) (Chronic) Hypertension (Chronic) Hyperlipemia (Chronic) Morbid obesity with BMI of 45.0-49.9, adult (Chronic) Hyperlipidemia associated with type 2 diabetes mellitus (Chronic) 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 Allergies/Adverse Reactions: Allergies bee venom protein (honey bee) Allergy (Verified 12/13/17 09:30) Swelling metronidazole [From Flagyl] Allergy (Verified 12/13/17 09:30) Itching Home Medications: Ambulatory Orders Medication Instructions Recorded Atorvastatin Calcium [Lipitor] 10 mg PO QHS 01/08/17 Brimonidine Tartrate 0.2% 1 drop EACH EYE BID 01/08/17 [Brimonidine 0.2% 5Ml Bottle] Ergocalciferol [Vitamin D] 50,000 unit PO FR 01/08/17 Gabapentin [Neurontin] 1,600 mg PO QHS 01/08/17 Gabapentin [Neurontin] 600 mg PO DAILY 01/08/17 Insulin U-500 [Humulin R U-500 105 units SC DINNER 01/08/17 ([facility])] Insulin U-500 [Humulin R U-500 105 units SC LUNCH 01/08/17 ([facility])] Insulin U-500 [Humulin R U-500 160 units SC BREAKFAST 01/08/17 ([facility])] Latanoprost 0.005% [Xalatan 1 drop EACH EYE QHS 01/08/17 Opthalmic] Losartan Potassium [Cozaar] 50 mg PO DAILY 01/08/17 Nebivolol HCl [Bystolic (Beta 10 mg PO DAILY 01/08/17 Akira)] Omeprazole [Prilosec] 40 mg PO DAILY 01/08/17 Acetaminophen [Tylenol Tablet] 650 mg PO Q6H PRN PRN tablet 09/07/17 Clopidogrel Bisulfate [Plavix] 75 mg PO DAILY 09/07/17 Menthol/Lanolin/Calamine/Znox 1 applic TOPICAL 0600,2200 tube 09/21/17 [Calmoseptine Ointment] Nutritional Supplement [Madhu - 1 packet PO BIDCM #60 packet 09/21/17 ORANGE FLAVOR] Nystatin Powder [Mycostatin Powder] 1 applic TOPICAL 0600,2200 bottle 09/21/17 Ferrous Sulfate [Iron] 325 mg PO BID 10/14/17 Clindamycin HCl 300 mg PO [id number] #40 cap 12/13/17 Maternal Family History: Diabetes Paternal Family History: Hypertension Sibling Family History: Diabetes Smoking Status: Former smoker Physical Exam Vital Signs Temp Pulse Resp BP 98.6 F 79 18 123/70 H 05/16/18 13:37 05/16/18 13:37 05/16/18 13:37 05/16/18 13:37 Assessment/Plan Active Problems Chronic ulcer of right foot with fat layer exposed (Chronic) Ulcer of left lower extremity with fat layer exposed (Chronic) Type 2 diabetes mellitus with diabetic polyneuropathy (Chronic) Delayed wound healing (Chronic) Edema of both legs (Chronic)
[2018-05-17 09:48] LABS: Bedside Glucose 229 mg/dL (70-110)
--- NOTE | 2018-05-17 10:08 | HBO.PN.PCM_ITS ---
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 Progress: The patient appears to be tolerating hyperbaric oxygen therapy well. This is his 2nd treatment course and his 62nd session of hyperbaric oxygen therapy. Tolerance of hyperbaric oxygen therapy: Hyperbaric oxygen therapy was administered as per the facility's protocol. The patient tolerated hyperbaric oxygen therapy well, without complaints or complications. Upon emergence from the hyperbaric chamber, patient's vital signs remained stable. Patient was discharged in good condition. Blood glucose prior to treatment 229, then found to be 178 post treatment. Past Medical History Chronic Problems Chronic ulcer of right foot with fat layer exposed (Chronic) Ulcer of left lower extremity with fat layer exposed (Chronic) Ulcer of right lower extremity with fat layer exposed (Chronic) Ulcer of left lower extremity, limited to breakdown of skin (Chronic) Ulcer of left lower extremity, limited to breakdown of skin (Chronic) Non-pressure chronic ulcer of other part of right foot with fat layer exposed (Chronic) Complete below knee amputation of left lower extremity (Chronic) Ulcer of right foot with necrosis of muscle (Chronic) Ulcer of right foot with fat layer exposed (Chronic) 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) Delayed wound healing (Chronic) Malnutrition (Chronic) Venous insufficiency (Chronic) Lymphedema (Chronic) Edema of both legs (Chronic) GERD (gastroesophageal reflux disease) (Chronic) Hypertension (Chronic) Hyperlipemia (Chronic) Morbid obesity with BMI of 45.0-49.9, adult (Chronic) Hyperlipidemia associated with type 2 diabetes mellitus (Chronic) 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 Allergies/Adverse Reactions: Allergies bee venom protein (honey bee) Allergy (Verified 12/13/17 09:30) Swelling metronidazole [From Flagyl] Allergy (Verified 12/13/17 09:30) Itching Home Medications: Ambulatory Orders Medication Instructions Recorded Atorvastatin Calcium [Lipitor] 10 mg PO QHS 01/08/17 Brimonidine Tartrate 0.2% 1 drop EACH EYE BID 01/08/17 [Brimonidine 0.2% 5Ml Bottle] Ergocalciferol [Vitamin D] 50,000 unit PO FR 01/08/17 Gabapentin [Neurontin] 1,600 mg PO QHS 01/08/17 Gabapentin [Neurontin] 600 mg PO DAILY 01/08/17 Insulin U-500 [Humulin R U-500 105 units SC DINNER 01/08/17 ([facility])] Insulin U-500 [Humulin R U-500 105 units SC LUNCH 01/08/17 ([facility])] Insulin U-500 [Humulin R U-500 160 units SC BREAKFAST 01/08/17 ([facility])] Latanoprost 0.005% [Xalatan 1 drop EACH EYE QHS 01/08/17 Opthalmic] Losartan Potassium [Cozaar] 50 mg PO DAILY 01/08/17 Nebivolol HCl [Bystolic (Beta 10 mg PO DAILY 01/08/17 Akira)] Omeprazole [Prilosec] 40 mg PO DAILY 01/08/17 Acetaminophen [Tylenol Tablet] 650 mg PO Q6H PRN PRN tablet 09/07/17 Clopidogrel Bisulfate [Plavix] 75 mg PO DAILY 09/07/17 Menthol/Lanolin/Calamine/Znox 1 applic TOPICAL 0600,2200 tube 09/21/17 [Calmoseptine Ointment] Nutritional Supplement [Madhu - 1 packet PO BIDCM #60 packet 09/21/17 ORANGE FLAVOR] Nystatin Powder [Mycostatin Powder] 1 applic TOPICAL 0600,2200 bottle 09/21/17 Ferrous Sulfate [Iron] 325 mg PO BID 10/14/17 Clindamycin HCl 300 mg PO [id number] #40 cap 12/13/17 Maternal Family History: Diabetes Paternal Family History: Hypertension Sibling Family History: Diabetes Smoking Status: Former smoker Physical Exam Vital Signs Temp Pulse Resp BP 98.6 F 79 18 123/70 H 05/16/18 13:37 05/16/18 13:37 05/16/18 13:37 05/16/18 13:37 General: Alert, Oriented x3, Cooperative HEENT: Atraumatic, TM's Clear Lungs: Clear to auscultation, Normal air movement Cardiovascular: Regular rate, Regular Rhythm Psych/Mental Status: Normal Affect, Appropriate, Alert and oriented to time, place, person, mood and affect Assessment/Plan Active Problems Chronic ulcer of right foot with fat layer exposed (Chronic) Ulcer of left lower extremity with fat layer exposed (Chronic) Type 2 diabetes mellitus with diabetic polyneuropathy (Chronic) Delayed wound healing (Chronic) Edema of both legs (Chronic) The patient appears to be tolerating hyperbaric oxygen therapy well, which will be continued as per the patient's medical plan.
[2018-05-17 10:50] VITALS: BP 146/70; BP 149/78; PULSE 78; PULSE 82; RESP 18; TEMP 35.9; TEMP 36.2
[2018-05-17 12:15] LABS: Bedside Glucose 178 mg/dL (70-110)
[2018-05-18 08:18] VITALS: BP 123/68; PULSE 82; RESP 16; TEMP 36.2
--- NOTE | 2018-05-18 09:34 | PCM.WC.PN ---
(1) Chronic ulcer of right foot with fat layer exposed Status: Chronic Current Visit: Yes Code(s): L97.512 - Non-pressure chronic ulcer of other part of right foot with fat layer exposed (2) Ulcer of left lower extremity with fat layer exposed Status: Chronic Current Visit: Yes Code(s): L97.922 - Non-pressure chronic ulcer of unspecified part of left lower leg with fat layer exposed (3) Type 2 diabetes mellitus with diabetic polyneuropathy Status: Chronic Current Visit: Yes Code(s): E11.42 - Type 2 diabetes mellitus with diabetic polyneuropathy (4) Delayed wound healing Status: Chronic Current Visit: Yes Code(s): T14.8 - Other injury of unspecified body region (5) Edema of both legs Status: Chronic Current Visit: Yes Code(s): R60.0 - Localized edema Type of Wound Date of Service: 05/18/18 Chief Complaint: 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 He denies fever, chill, nausea, vomiting, loss of appetite. He had multiple advanced wound care product applications. He continues with hyperbaric oxygen therapy sessions. He presents in a wheelchair today. He denies odors or redness. He has demonstrated significant delays in healing. He denies elevation or using his compression pumps as advised. Progress of Wound: worse right toe area. improving right heel area. Left stump site ulcer worse - Physical Exam Vital Signs Temp Pulse Resp BP 97.1 F L 82 16 123/68 H 05/18/18 08:18 05/18/18 08:18 05/18/18 08:18 05/18/18 08:18 General: Alert, Oriented x3, Cooperative Extremities: No cyanosis, Capillary Refill Less than 3 Seconds, No Calf Tenderness, Diminished Peripheral Pulses, Edema, - - Left below-knee amputation. Bilateral lymphedema Skin: Ulcer/ Wound - No purulence, erythema, streaking, odor, or infection. There is worsening maceration and skin the epithelialization to the dorsal right foot near the toes and also the left below-knee amputation stump site, - - Peripheral skin is hairless and atrophic Wound Measurements and Assessment WC - Nurse 1 - General Ulcer Measurement Start: 05/09/18 09:56 Freq: Status: Active Protocol: Activity Type Activity Date Activity User E-Sign Co-Sign Detail Recorded Client Recorded Date Recorded By Document 05/18/18 08:18 DV [id number] 05/18/18 08:32 DV 05/18/18 08:18 Wound Center Nurse 1 [Ulcer Assessment] #22 left stump -Combined with other wound No -Current Size (cm) - Length 13.0 -Current Size (cm) - Width 15.0 -Current Size (cm) - Depth 0.1 -Total Square Cm 195.00 -Photo Taken No -Epithelialization None Present -Tunneling No -Undermining/Tunneling No -Circular Undermining No -Classification - Thickness Full Thickness without Exposed Support Structure -Classification - Brooks Grading ( Grade 1 Diabetic Ulcer) -Exudate Type Serous -Wound Margin Distinct, Outline Attached -Granulation Amt Small (1-33%) -Granulation Quality Pale [place] -Slough/Fibrin Yes -Necrosis Amt None Present (0 %) -Necrotic Tissue Type Adherent Slough -Structure Exposed N/A -Texture (Martha-wound Skin Appearance) Friable -Moisture (Martha-wound Skin Appearance Maceration ) -Color (Martha-wound Skin Appearance) No Abnormality -Temperature (Martha-wound Skin No Abnormality Appearance) (Pt Warm) -Tenderness on Palpation (Martha-wound No Skin Appearance) -Ulcer Cleansing Provon Soap -Foul Odor after Cleansing No -Anesthetic Used 4% Lidocaine Solution #13 R Med Heel -Combined with other wound No -Current Size (cm) - Length 1.5 -Current Size (cm) - Width 2.5 -Current Size (cm) - Depth 0.1 -Total Square Cm 3.75 -Photo Taken No -Epithelialization None Present -Tunneling No -Undermining/Tunneling No -Circular Undermining No -Classification - Thickness Full Thickness without Exposed Support Structure -Classification - Brooks Grading ( Grade 3 Diabetic Ulcer) -Exudate Amt Small (1-33%) -Exudate Type Serous -Wound Margin Distinct, Outline Attached -Granulation Amt None Present (0 %) -Granulation Quality N/A -Slough/Fibrin Yes -Necrosis Amt None Present (0 %) -Necrotic Tissue Type Adherent Slough -Structure Exposed N/A -Texture (Martha-wound Skin Appearance) No Abnormality -Moisture (Martha-wound Skin Appearance No Abnormality ) -Color (Martha-wound Skin Appearance) No Abnormality -Temperature (Martha-wound Skin No Abnormality Appearance) (Pt Warm) -Tenderness on Palpation (Martha-wound No Skin Appearance) -Ulcer Cleansing Provon Soap -Foul Odor after Cleansing No -Anesthetic Used 4% Lidocaine Solution #21 Right Foot-Toes w/Metatarsal Head circumfrential -Combined with other wound No -Current Size (cm) - Length 11.0 -Current Size (cm) - Width 7.0 -Current Size (cm) - Depth 0.1 -Total Square Cm 77.00 -Photo Taken No -Epithelialization None Present -Tunneling No -Undermining/Tunneling No -Circular Undermining No -Classification - Thickness Full Thickness without Exposed Support Structure -Classification - Brooks Grading ( Grade 1 Diabetic Ulcer) -Exudate Amt Large (67-100%) -Exudate Type Serous -Wound Margin Distinct, Outline Attached -Granulation Amt Small (1-33%) -Granulation Quality [place] -Slough/Fibrin Yes -Necrosis Amt None Present (0 %) -Necrotic Tissue Type Adherent Slough -Structure Exposed N/A -Texture (Martha-wound Skin Appearance) Friable -Moisture (Martha-wound Skin Appearance Maceration ) -Color (Martha-wound Skin Appearance) No Abnormality -Temperature (Martha-wound Skin No Abnormality Appearance) (Pt Warm) -Tenderness on Palpation (Martha-wound No Skin Appearance) -Ulcer Cleansing Provon Soap -Foul Odor after Cleansing No -Anesthetic Used 4% Lidocaine Solution [Edema Assessment] -Lower Limb Edema Present Yes -Right Calf (cm) 37.0 -Right Ankle (cm) 28.0 Musculoskeletal: No Tenderness to Palpation of Joints or Extremities, Muscle Wasting Neurological: - - Lack of normal epicritic sensation light touch Psych/Mental Status: Normal Affect, Appropriate Debridement Note Post-Debridement Measurements/Treatment WC - Nurse 2 - General Ulcer CM Notes Start: 05/09/18 09:56 Freq: Status: Active Protocol: Activity Type Activity Date Activity User E-Sign Co-Sign Detail Recorded Client Recorded Date Recorded By Document 05/11/18 08:33 [id number] 05/11/18 08:38 TM 05/11/18 08:33 Wound Center Nurse 2 #22 left stump -Time 08:35 -Correct Patient Yes -Correct Side, Site, Position Yes -Correct Procedure Yes -Procedure Performed Yes -Type of Procedure Debridement -Clinical Debridement Subcutaneous -Post Debridement Size (cm) - Length 0.8 -Post Debridement Size (cm) - Width 0.9 -Post Debridement Size (cm) - Depth 0.1 -Total Square Cm 0.72 -Wound/Ulcer Outcome Not Healed -Ulcer Cleansing Rinsed/ Irrigated with Saline -Foul Odor after Cleansing No -Bioengineered Tissue No -Topical Lidocaine (%) 4 -Bleeding Controlled with Pressure -Offloading Yes -Treatment Response Procedure Tolerated Well #13 R Med Heel -Time 08:35 -Correct Patient Yes -Correct Side, Site, Position Yes -Correct Procedure Yes -Procedure Performed Yes -Type of Procedure Debridement -Clinical Debridement Subcutaneous -Post Debridement Size (cm) - Length 1.5 -Post Debridement Size (cm) - Width 1.6 -Post Debridement Size (cm) - Depth 0.1 -Total Square Cm 2.40 -Wound/Ulcer Outcome Not Healed -Ulcer Cleansing Rinsed/ Irrigated with Saline -Foul Odor after Cleansing No -Bioengineered Tissue Yes -Type of bioengineered Tissue NU-SHIELD -Expiration Date 02/24/23 -Product Lot Number [id number] -Percent Used 50 -Saline Lot Number [id number] -Topical Lidocaine (%) 4 -Bleeding Controlled with Pressure -Offloading Yes -Treatment Response Procedure Tolerated Well #21 Right Foot-Toes w/Metatarsal Head circumfrential -Time 08:36 -Correct Patient Yes -Correct Side, Site, Position Yes -Correct Procedure Yes -Procedure Performed Yes -Type of Procedure Debridement -Clinical Debridement Subcutaneous -Post Debridement Size (cm) - Length 11.1 -Post Debridement Size (cm) - Width 5.1 -Post Debridement Size (cm) - Depth 0.1 -Total Square Cm 56.61 -Wound/Ulcer Outcome Not Healed -Ulcer Cleansing Rinsed/ Irrigated with Saline -Foul Odor after Cleansing No -Bioengineered Tissue No -Expiration Date 02/24/23 -Product Lot Number [id number] -Percent Used 50 -Saline Lot Number [id number] -Topical Lidocaine (%) 4 -Bleeding Controlled with Pressure -Offloading Yes -Treatment Response Procedure Tolerated Well Pain Scale: 0-10 Numeric Is Patient Pain Free? Yes Wound debrided: toes Laterality: Right Wound Grade/Stage: grade 1 Type of Debridement: Excisional debridement Anesthesia Used: 5% Lidocaine Gel Depth: in the subcutaneous layer Percentage of wound debrided: 100 Instrument Used: #15 blade Tissue Removed: fibrous, devitalized subcutaneous, biofilm, slough Severity: Fat Layer Exposed Amount of bleeding with debridement: Mild Bleeding Controlled with: Pressure Patient tolerated procedure well - Additional Wound Wound debrided: heel Laterality: Right Wound Grade/Stage: grade 3 Type of Debridement: Excisional debridement Anesthesia Used: 5% Lidocaine Gel Depth: in the subcutaneous layer Percentage of wound debrided: 100 Instrument Used: #15 blade Tissue Removed: fibrous, devitalized subcutaneous, biofilm, slough Severity: Fat Layer Exposed Amount of bleeding with debridement: Mild Bleeding Controlled with: Pressure Patient tolerated procedure: Patient tolerated procedure well - Additional Wound Wound debrided: below knee amputation stump site Laterality: Left Wound Grade/Stage: grade 1 Type of Debridement: Excisional debridement Anesthesia Used: 5% Lidocaine Gel Depth: in the subcutaneous layer Percentage of wound debrided: 100 Instrument Used: #15 blade Tissue Removed: fibrous, devitalized subcutaneous, biofilm, slough Severity: Fat Layer Exposed Amount of bleeding with debridement: Mild Bleeding Controlled with: Pressure Patient tolerated procedure: Patient tolerated procedure well Assessment/Plan Active Problems Chronic ulcer of right foot with fat layer exposed (Chronic) Ulcer of left lower extremity with fat layer exposed (Chronic) Type 2 diabetes mellitus with diabetic polyneuropathy (Chronic) Delayed wound healing (Chronic) Edema of both legs (Chronic) Assessment: ulcer right forefoot (digit 2). right heel ulcer muscle involved and exposed fascia without infection noted today (previous grade 3); s/p surgical debridement and application of advance wound care products (amniofil and epicord). 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 Lymphedema. Chronic lower extremity edema and venous insufficiency. Morbid obesity. Type 2 diabetes uncontrolled with peripheral neuropathy. CKD. Hypertension. Malnutrition. Delayed wound healing. Nonadherence to treatment plan Plan: I reviewed and discussed his case debridement done as documented above in the clinical panel; this procedure was well tolerated. Advance wound care product, nushield, was applied according to standard protocol to the right heel and toe region of the right foot. This was further secured with a wound veil and Steri-Strips. Verbal consent was obtained. He tolerated this well. Continue compression and elevate lower extremity when sitting and in bed. Optimal blood sugar contol. We discussed compliance and I recommend elevating only 75% of the time. To avoid trauma to the right foot as he sustained last week. Continue protein suppplements and increased protein in diet. To continue hyperbaric oxygen therapy as scheduled on complaint basis. I encouraged continued use. I also recommend a lymphedema clinic. He went approximately 3 years ago and found this to be very helpful. He no longer has his thigh-high compression garments that were arranged for him during this last session. There is difficulty getting into the lymphedema clinic [facility] because of his open wounds. I will try to locate a different local lymphedema clinic and he confirms he is amenable to travel. To improve compliance with compression pumps. Follow up in 1 week with at the wound healing center or call sooner if he has any questions or concerns.
[2018-05-18 09:41] LABS: Bedside Glucose 169 mg/dL (70-110)
--- NOTE | 2018-05-18 11:09 | PCM.HBO.PN ---
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 Progress: The patient appears to be tolerating hyperbaric oxygen therapy well. Tolerance of hyperbaric oxygen therapy: Hyperbaric oxygen therapy was administered as per the facility's protocol. The patient tolerated hyperbaric oxygen therapy well, without complaints or complications. Upon emergence from the hyperbaric chamber, patient's vital signs remained stable. Patient was discharged in good condition. Past Medical History Chronic Problems Chronic ulcer of right foot with fat layer exposed (Chronic) Ulcer of left lower extremity with fat layer exposed (Chronic) Ulcer of right lower extremity with fat layer exposed (Chronic) Ulcer of left lower extremity, limited to breakdown of skin (Chronic) Ulcer of left lower extremity, limited to breakdown of skin (Chronic) Non-pressure chronic ulcer of other part of right foot with fat layer exposed (Chronic) Complete below knee amputation of left lower extremity (Chronic) Ulcer of right foot with necrosis of muscle (Chronic) Ulcer of right foot with fat layer exposed (Chronic) 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) Delayed wound healing (Chronic) Malnutrition (Chronic) Venous insufficiency (Chronic) Lymphedema (Chronic) Edema of both legs (Chronic) GERD (gastroesophageal reflux disease) (Chronic) Hypertension (Chronic) Hyperlipemia (Chronic) Morbid obesity with BMI of 45.0-49.9, adult (Chronic) Hyperlipidemia associated with type 2 diabetes mellitus (Chronic) 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 Allergies/Adverse Reactions: Allergies bee venom protein (honey bee) Allergy (Verified 12/13/17 09:30) Swelling metronidazole [From Flagyl] Allergy (Verified 12/13/17 09:30) Itching Home Medications: Ambulatory Orders Medication Instructions Recorded Atorvastatin Calcium [Lipitor] 10 mg PO QHS 01/08/17 Brimonidine Tartrate 0.2% 1 drop EACH EYE BID 01/08/17 [Brimonidine 0.2% 5Ml Bottle] Ergocalciferol [Vitamin D] 50,000 unit PO FR 01/08/17 Gabapentin [Neurontin] 1,600 mg PO QHS 01/08/17 Gabapentin [Neurontin] 600 mg PO DAILY 01/08/17 Insulin U-500 [Humulin R U-500 105 units SC DINNER 01/08/17 ([facility])] Insulin U-500 [Humulin R U-500 105 units SC LUNCH 01/08/17 ([facility])] Insulin U-500 [Humulin R U-500 160 units SC BREAKFAST 01/08/17 ([facility])] Latanoprost 0.005% [Xalatan 1 drop EACH EYE QHS 01/08/17 Opthalmic] Losartan Potassium [Cozaar] 50 mg PO DAILY 01/08/17 Nebivolol HCl [Bystolic (Beta 10 mg PO DAILY 01/08/17 Akira)] Omeprazole [Prilosec] 40 mg PO DAILY 01/08/17 Acetaminophen [Tylenol Tablet] 650 mg PO Q6H PRN PRN tablet 09/07/17 Clopidogrel Bisulfate [Plavix] 75 mg PO DAILY 09/07/17 Menthol/Lanolin/Calamine/Znox 1 applic TOPICAL 0600,2200 tube 09/21/17 [Calmoseptine Ointment] Nutritional Supplement [Madhu - 1 packet PO BIDCM #60 packet 09/21/17 ORANGE FLAVOR] Nystatin Powder [Mycostatin Powder] 1 applic TOPICAL 0600,2200 bottle 09/21/17 Ferrous Sulfate [Iron] 325 mg PO BID 10/14/17 Clindamycin HCl 300 mg PO [id number] #40 cap 12/13/17 Maternal Family History: Diabetes Paternal Family History: Hypertension Sibling Family History: Diabetes Smoking Status: Former smoker Physical Exam Vital Signs Temp Pulse Resp BP 97.1 F L 82 16 123/68 H 05/18/18 08:18 05/18/18 08:18 05/18/18 08:18 05/18/18 08:18 General: Alert, Cooperative, No apparent distress HEENT: Atraumatic Lungs: Normal air movement Psych/Mental Status: Normal Affect Assessment/Plan Active Problems Chronic ulcer of right foot with fat layer exposed (Chronic) Ulcer of left lower extremity with fat layer exposed (Chronic) Type 2 diabetes mellitus with diabetic polyneuropathy (Chronic) Delayed wound healing (Chronic) Edema of both legs (Chronic) The patient appears to be tolerating hyperbaric oxygen therapy well, which will be continued as per the patient's medical plan.
[2018-05-18 11:46] LABS: Bedside Glucose 106 mg/dL (70-110)
[2018-05-18 12:18] VITALS: BP 123/68; BP 152/70; PULSE 80; PULSE 82; RESP 16; TEMP 35.9
[2018-05-20 09:46] LABS: Bedside Glucose 211 mg/dL (70-110)
[2018-05-20 12:53] VITALS: BP 130/58; BP 158/79; PULSE 80; PULSE 85; RESP 16; TEMP 35.6; TEMP 36.3
[2018-05-24 10:00] LABS: Bedside Glucose 229 mg/dL (70-110)
[2018-05-24 11:24] VITALS: BP 137/66; BP 152/76; PULSE 80; PULSE 82; RESP 18; TEMP 36.1; TEMP 36.3
[2018-05-24 12:15] LABS: Bedside Glucose 185 mg/dL (70-110)
--- NOTE | 2018-05-24 12:45 | PCM.HBO.PN ---
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 Progress: The patient appears to be tolerating hyperbaric oxygen therapy well. Today's session represents the 65th such session of hyperbaric oxygen therapy. Tolerance of hyperbaric oxygen therapy: Hyperbaric oxygen therapy was administered as per the facility's protocol. The patient tolerated hyperbaric oxygen therapy well, without complaints or complications. Upon emergence from the hyperbaric chamber, patient's vital signs remained stable. Patient was discharged in good condition. Past Medical History Chronic Problems Chronic ulcer of right foot with fat layer exposed (Chronic) Ulcer of left lower extremity with fat layer exposed (Chronic) Ulcer of right lower extremity with fat layer exposed (Chronic) Ulcer of left lower extremity, limited to breakdown of skin (Chronic) Ulcer of left lower extremity, limited to breakdown of skin (Chronic) Non-pressure chronic ulcer of other part of right foot with fat layer exposed (Chronic) Complete below knee amputation of left lower extremity (Chronic) Ulcer of right foot with necrosis of muscle (Chronic) Ulcer of right foot with fat layer exposed (Chronic) 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) Delayed wound healing (Chronic) Malnutrition (Chronic) Venous insufficiency (Chronic) Lymphedema (Chronic) Edema of both legs (Chronic) GERD (gastroesophageal reflux disease) (Chronic) Hypertension (Chronic) Hyperlipemia (Chronic) Morbid obesity with BMI of 45.0-49.9, adult (Chronic) Hyperlipidemia associated with type 2 diabetes mellitus (Chronic) 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 Allergies/Adverse Reactions: Allergies bee venom protein (honey bee) Allergy (Verified 12/13/17 09:30) Swelling metronidazole [From Flagyl] Allergy (Verified 12/13/17 09:30) Itching Home Medications: Ambulatory Orders Medication Instructions Recorded Atorvastatin Calcium [Lipitor] 10 mg PO QHS 01/08/17 Brimonidine Tartrate 0.2% 1 drop EACH EYE BID 01/08/17 [Brimonidine 0.2% 5Ml Bottle] Ergocalciferol [Vitamin D] 50,000 unit PO FR 01/08/17 Gabapentin [Neurontin] 1,600 mg PO QHS 01/08/17 Gabapentin [Neurontin] 600 mg PO DAILY 01/08/17 Insulin U-500 [Humulin R U-500 105 units SC DINNER 01/08/17 ([facility])] Insulin U-500 [Humulin R U-500 105 units SC LUNCH 01/08/17 ([facility])] Insulin U-500 [Humulin R U-500 160 units SC BREAKFAST 01/08/17 ([facility])] Latanoprost 0.005% [Xalatan 1 drop EACH EYE QHS 01/08/17 Opthalmic] Losartan Potassium [Cozaar] 50 mg PO DAILY 01/08/17 Nebivolol HCl [Bystolic (Beta 10 mg PO DAILY 01/08/17 Akira)] Omeprazole [Prilosec] 40 mg PO DAILY 01/08/17 Acetaminophen [Tylenol Tablet] 650 mg PO Q6H PRN PRN tablet 09/07/17 Clopidogrel Bisulfate [Plavix] 75 mg PO DAILY 09/07/17 Menthol/Lanolin/Calamine/Znox 1 applic TOPICAL 0600,2200 tube 09/21/17 [Calmoseptine Ointment] Nutritional Supplement [Madhu - 1 packet PO BIDCM #60 packet 09/21/17 ORANGE FLAVOR] Nystatin Powder [Mycostatin Powder] 1 applic TOPICAL 0600,2200 bottle 09/21/17 Ferrous Sulfate [Iron] 325 mg PO BID 10/14/17 Clindamycin HCl 300 mg PO [id number] #40 cap 12/13/17 Maternal Family History: Diabetes Paternal Family History: Hypertension Sibling Family History: Diabetes Smoking Status: Former smoker Physical Exam Vital Signs Temp Pulse Resp BP 97.0 F L 82 18 137/66 H 05/24/18 11:24 05/24/18 11:24 05/24/18 11:24 05/24/18 11:24 General: Alert, Oriented x3, Cooperative, No apparent distress, Well developed, Well nourished HEENT: Atraumatic, PERRLA, EOMI, Normocephalic Lungs: Normal air movement Psych/Mental Status: Normal Affect, Appropriate, Alert and oriented to time, place, person, mood and affect Assessment/Plan Active Problems Chronic ulcer of right foot with fat layer exposed (Chronic) Ulcer of left lower extremity with fat layer exposed (Chronic) Type 2 diabetes mellitus with diabetic polyneuropathy (Chronic) Delayed wound healing (Chronic) Edema of both legs (Chronic) The patient appears to be tolerating hyperbaric oxygen therapy well, which will be continued as per the patient's medical plan.
[2018-05-25 08:03] VITALS: BP 184/83; PULSE 88; RESP 18; TEMP 36
--- NOTE | 2018-05-25 09:34 | PCM.WC.PN ---
(1) Chronic ulcer of right foot with fat layer exposed Status: Chronic Current Visit: Yes Code(s): L97.512 - Non-pressure chronic ulcer of other part of right foot with fat layer exposed (2) Ulcer of left lower extremity with fat layer exposed Status: Chronic Current Visit: Yes Code(s): L97.922 - Non-pressure chronic ulcer of unspecified part of left lower leg with fat layer exposed (3) Type 2 diabetes mellitus with diabetic polyneuropathy Status: Chronic Current Visit: Yes Code(s): E11.42 - Type 2 diabetes mellitus with diabetic polyneuropathy (4) Delayed wound healing Status: Chronic Current Visit: Yes Code(s): T14.8 - Other injury of unspecified body region (5) Edema of both legs Status: Chronic Current Visit: Yes Code(s): R60.0 - Localized edema Type of Wound Date of Service: 05/25/18 Chief Complaint: 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 He denies fever, chill, nausea, vomiting, loss of appetite. He had multiple advanced wound care product applications. He continues with hyperbaric oxygen therapy sessions. He presents in a wheelchair today. He denies odors or redness. He has demonstrated significant delays in healing. He tries to use compression pumps and elevates. Progress of Wound: Improving right toe area. improving right heel area. Left stump site ulcer improving with decreased maceration - Physical Exam Vital Signs Temp Pulse Resp BP 96.8 F L 88 18 184/83 H 05/25/18 08:03 05/25/18 08:03 05/25/18 08:03 05/25/18 08:03 General: Alert, Oriented x3, Cooperative Extremities: No cyanosis, Capillary Refill Less than 3 Seconds, No Calf Tenderness - Negative Harry and Badillo sign right, Diminished Peripheral Pulses, Edema - Bilateral lower extremities decreased compared to last week, - - Left below-knee amputation Skin: Ulcer/ Wound - No purulence, erythema, streaking, odor, or infection. The left limb has decreased maceration and decreased granulation tissue and increased skin peeling peripherally. The right leg has decreased ulcer size is noted, - - The skin is hairless and atrophic bilateral lower extremity Wound Measurements and Assessment WC - Nurse 1 - General Ulcer Measurement Start: 05/09/18 09:56 Freq: Status: Active Protocol: Activity Type Activity Date Activity User E-Sign Co-Sign Detail Recorded Client Recorded Date Recorded By Document 05/25/18 08:03 DV [id number] 05/25/18 08:33 DV 05/25/18 08:03 Wound Center Nurse 1 [Ulcer Assessment] #22 left stump -Combined with other wound No -Photo Taken No -Tunneling No -Undermining/Tunneling No -Circular Undermining No -Exudate Amt Medium (34-66%) -Exudate Type Serous -Wound Margin Indistinct, Non -Visible -Granulation Amt Small (1-33%) -Granulation Quality Pale [place] -Slough/Fibrin Yes -Necrosis Amt Large (67-100%) -Necrotic Tissue Type Adherent Slough -Structure Exposed None/Limited to Skin Breakdown -Texture (Martha-wound Skin Appearance) Assessed Localized Edema Scarring -Moisture (Martha-wound Skin Appearance Assessed ) Maceration Weeping -Color (Martha-wound Skin Appearance) No Abnormality Assessed -Temperature (Martha-wound Skin No Abnormality Appearance) (Pt Warm) -Tenderness on Palpation (Martha-wound No Skin Appearance) -Ulcer Cleansing soap #13 R Med Heel -Combined with other wound No -Current Size (cm) - Length 1.5 -Current Size (cm) - Width 2.0 -Current Size (cm) - Depth 0.1 -Total Square Cm 3.00 -Photo Taken No -Tunneling No -Undermining/Tunneling No -Circular Undermining No -Exudate Amt None Present (0 %) -Wound Margin Indistinct, Non -Visible -Granulation Amt None Present (0 %) -Granulation Quality N/A -Slough/Fibrin Yes -Necrosis Amt Small (1-33%) -Necrotic Tissue Type Adherent Slough -Structure Exposed None/Limited to Skin Breakdown -Texture (Martha-wound Skin Appearance) Assessed Scarring -Moisture (Martha-wound Skin Appearance Assessed ) Dry/Scaly -Color (Martha-wound Skin Appearance) No Abnormality Assessed -Temperature (Martha-wound Skin No Abnormality Appearance) (Pt Warm) -Tenderness on Palpation (Martha-wound No Skin Appearance) -Ulcer Cleansing soap -Foul Odor after Cleansing No #21 Right Foot-Toes w/Metatarsal Head circumfrential -Combined with other wound No -Current Size (cm) - Length 13.5 -Current Size (cm) - Width 6.0 -Current Size (cm) - Depth 0.1 -Total Square Cm 81.00 -Photo Taken No -Epithelialization None Present -Tunneling No -Undermining/Tunneling No -Circular Undermining No -Exudate Amt Medium (34-66%) -Exudate Type Serous -Wound Margin Indistinct, Non -Visible -Granulation Amt Small (1-33%) -Granulation Quality Pale [place] -Slough/Fibrin Yes -Necrosis Amt Large (67-100%) -Necrotic Tissue Type Adherent Slough -Structure Exposed None/Limited to Skin Breakdown -Texture (Martha-wound Skin Appearance) Assessed Localized Edema Scarring -Moisture (Martha-wound Skin Appearance Assessed ) Weeping -Color (Martha-wound Skin Appearance) No Abnormality Assessed -Temperature (Martha-wound Skin No Abnormality Appearance) (Pt Warm) -Tenderness on Palpation (Martha-wound No Skin Appearance) -Ulcer Cleansing soap -Foul Odor after Cleansing No [Edema Assessment] -Lower Limb Edema Present Yes -Right Calf (cm) 38 -Right Ankle (cm) 36 Musculoskeletal: No Tenderness to Palpation of Joints or Extremities, Muscle Wasting Neurological: - - Lack of epicritic sensation light touch bilateral lower extremities Psych/Mental Status: Normal Affect, Appropriate Debridement Note Post-Debridement Measurements/Treatment WC - Nurse 2 - General Ulcer CM Notes Start: 05/09/18 09:56 Freq: Status: Active Protocol: Activity Type Activity Date Activity User E-Sign Co-Sign Detail Recorded Client Recorded Date Recorded By Document 05/11/18 08:33 [id number] 05/11/18 08:38 Document 05/18/18 09:52 [id number] 05/18/18 09:55 05/11/18 05/18/18 08:33 09:52 Wound Center Nurse 2 #22 left stump -Time 08:35 09:52 -Correct Patient Yes Yes -Correct Side, Site, Position Yes Yes -Correct Procedure Yes Yes -Procedure Performed Yes Yes -Type of Procedure Debridement Debridement -Clinical Debridement Subcutaneous Subcutaneous -Post Debridement Size (cm) - Length 0.8 13.1 -Post Debridement Size (cm) - Width 0.9 15.0 -Post Debridement Size (cm) - Depth 0.1 0.1 -Total Square Cm 0.72 196.50 -Wound/Ulcer Outcome Not Healed Not Healed -Ulcer Cleansing Rinsed/ Rinsed/ Irrigated with Irrigated with Saline Saline -Foul Odor after Cleansing No No -Bioengineered Tissue No No -Topical Lidocaine (%) 4 -Bleeding Controlled with Pressure Pressure -Offloading Yes No -Treatment Response Procedure Procedure Tolerated Well Tolerated Well #13 R Med Heel -Time 08:35 09:53 -Correct Patient Yes Yes -Correct Side, Site, Position Yes Yes -Correct Procedure Yes Yes -Procedure Performed Yes Yes -Type of Procedure Debridement Debridement -Clinical Debridement Subcutaneous Subcutaneous -Post Debridement Size (cm) - Length 1.5 1.5 -Post Debridement Size (cm) - Width 1.6 2.6 -Post Debridement Size (cm) - Depth 0.1 0.1 -Total Square Cm 2.40 3.90 -Wound/Ulcer Outcome Not Healed Not Healed -Ulcer Cleansing Rinsed/ Rinsed/ Irrigated with Irrigated with Saline Saline -Foul Odor after Cleansing No No -Bioengineered Tissue Yes Yes -Type of bioengineered Tissue Readiness Resource GroupSHIELD -Expiration Date 02/24/23 04/07/23 -Product Lot Number [id number] -Percent Used 50 100 -Saline Lot Number [id number] -Topical Lidocaine (%) 4 -Bleeding Controlled with Pressure Pressure -Offloading Yes No -Treatment Response Procedure Procedure Tolerated Well Tolerated Well #21 Right Foot-Toes w/Metatarsal Head circumfrential -Time 08:36 09:54 -Correct Patient Yes Yes -Correct Side, Site, Position Yes Yes -Correct Procedure Yes Yes -Procedure Performed Yes Yes -Type of Procedure Debridement Debridement -Clinical Debridement Subcutaneous Subcutaneous -Post Debridement Size (cm) - Length 11.1 11.0 -Post Debridement Size (cm) - Width 5.1 7.1 -Post Debridement Size (cm) - Depth 0.1 0.1 -Total Square Cm 56.61 78.10 -Wound/Ulcer Outcome Not Healed Not Healed -Ulcer Cleansing Rinsed/ Rinsed/ Irrigated with Irrigated with Saline Saline -Foul Odor after Cleansing No No -Bioengineered Tissue No Yes -Type of bioengineered Tissue NU-SHIELD -Expiration Date 02/24/23 04/07/23 -Product Lot Number [id number] -Percent Used 50 100 -Saline Lot Number [id number] -Topical Lidocaine (%) 4 -Bleeding Controlled with Pressure Pressure -Offloading Yes No -Treatment Response Procedure Procedure Tolerated Well Tolerated Well Pain Scale: 0-10 Numeric Is Patient Pain Free? Yes Yes Wound debrided: heel Laterality: Right Wound Grade/Stage: grade 3 Type of Debridement: Excisional debridement Anesthesia Used: 5% Lidocaine Gel Depth: in the subcutaneous layer Percentage of wound debrided: 100 Instrument Used: #15 blade Tissue Removed: fibrous, devitalized subcutaneous, biofilm, slough Severity: Fat Layer Exposed Amount of bleeding with debridement: Mild Bleeding Controlled with: Pressure Patient tolerated procedure well - Additional Wound Wound debrided: toes Laterality: Right Wound Grade/Stage: grade 1 Type of Debridement: Excisional debridement Anesthesia Used: 4% Lidocaine Solution Depth: in the subcutaneous layer Percentage of wound debrided: 100 Instrument Used: #15 blade Tissue Removed: fibrous, devitalized subcutaneous, biofilm, slough Severity: Fat Layer Exposed Amount of bleeding with debridement: Mild Bleeding Controlled with: Pressure Patient tolerated procedure: Patient tolerated procedure well - Additional Wound Wound debrided: bka stump Laterality: Left Wound Grade/Stage: stump Type of Debridement: Excisional debridement Anesthesia Used: 4% Lidocaine Solution Depth: in the subcutaneous layer Percentage of wound debrided: 100 Instrument Used: #15 blade Tissue Removed: fibrous, devitalized subcutaneous, biofilm, slough Severity: Fat Layer Exposed Amount of bleeding with debridement: Mild Bleeding Controlled with: Pressure Patient tolerated procedure: Patient tolerated procedure well Assessment/Plan Active Problems Chronic ulcer of right foot with fat layer exposed (Chronic) Ulcer of left lower extremity with fat layer exposed (Chronic) Type 2 diabetes mellitus with diabetic polyneuropathy (Chronic) Delayed wound healing (Chronic) Edema of both legs (Chronic) Assessment: ulcer right forefoot (digit 2). right heel ulcer muscle involved and exposed fascia without infection noted today (previous grade 3); s/p surgical debridement and application of advance wound care products (amniofil and epicord). 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 Lymphedema. Chronic lower extremity edema and venous insufficiency. Morbid obesity. Type 2 diabetes uncontrolled with peripheral neuropathy. CKD. Hypertension. Malnutrition. Delayed wound healing. Nonadherence to treatment plan Plan: I reviewed and discussed his case debridement done as documented above in the clinical panel; this procedure was well tolerated. Advance wound care product, nushield, was applied according to standard protocol to the right heel. This was further secured with a wound veil and Steri-Strips. Verbal consent was obtained. He tolerated this well. Aquacel Ag was applied to the left limb and gauze were applied interdigitally to the right forefoot; to change daily. Continue compression and elevate lower extremity when sitting and in bed. Optimal blood sugar contol. We discussed compliance and I recommend elevating only 75% of the time. To avoid trauma to the right foot as he sustained last week. Continue protein suppplements and increased protein in diet. To continue hyperbaric oxygen therapy as scheduled on complaint basis. I encouraged continued use. I also recommend a lymphedema clinic. He went approximately 3 years ago and found this to be very helpful. He no longer has his thigh-high compression garments that were arranged for him during this last session. There is a lymphedema clinic in [facility] and his information was sent over; they will call him to schedule his evaluation appointment. To improve compliance with compression pumps. Follow up in 1 week with at the wound healing center or call sooner if he has any questions or concerns.
--- NOTE | 2018-05-25 09:43 | PN.PCM_ITS ---
(1) Chronic ulcer of right foot with fat layer exposed Status: Chronic Current Visit: Yes Code(s): L97.512 - Non-pressure chronic ulcer of other part of right foot with fat layer exposed (2) Ulcer of left lower extremity with fat layer exposed Status: Chronic Current Visit: Yes Code(s): L97.922 - Non-pressure chronic ulcer of unspecified part of left lower leg with fat layer exposed (3) Type 2 diabetes mellitus with diabetic polyneuropathy Status: Chronic Current Visit: Yes Code(s): E11.42 - Type 2 diabetes mellitus with diabetic polyneuropathy (4) Delayed wound healing Status: Chronic Current Visit: Yes Code(s): T14.8 - Other injury of unspecified body region (5) Edema of both legs Status: Chronic Current Visit: Yes Code(s): R60.0 - Localized edema Type of Wound Date of Service: 05/25/18 Chief Complaint: 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 He denies fever, chill, nausea, vomiting, loss of appetite. He had multiple advanced wound care product applications. He continues with hyperbaric oxygen therapy sessions. He presents in a wheelchair today. He denies odors or redness. He has demonstrated significant delays in healing. He tries to use compression pumps and elevates. Progress of Wound: Improving right toe area. improving right heel area. Left stump site ulcer improving with decreased maceration - Physical Exam Vital Signs Temp Pulse Resp BP 96.8 F L 88 18 184/83 H 05/25/18 08:03 05/25/18 08:03 05/25/18 08:03 05/25/18 08:03 General: Alert, Oriented x3, Cooperative Extremities: No cyanosis, Capillary Refill Less than 3 Seconds, No Calf Tenderness - Negative Harry and Badillo sign right, Diminished Peripheral Pulses, Edema - Bilateral lower extremities decreased compared to last week, - - Left below-knee amputation Skin: Ulcer/ Wound - No purulence, erythema, streaking, odor, or infection. The left limb has decreased maceration and decreased granulation tissue and increased skin peeling peripherally. The right leg has decreased ulcer size is noted, - - The skin is hairless and atrophic bilateral lower extremity Wound Measurements and Assessment WC - Nurse 1 - General Ulcer Measurement Start: 05/09/18 09:56 Freq: Status: Active Protocol: Activity Type Activity Date Activity User E-Sign Co-Sign Detail Recorded Client Recorded Date Recorded By Document 05/25/18 08:03 DV [id number] 05/25/18 08:33 DV 05/25/18 08:03 Wound Center Nurse 1 [Ulcer Assessment] #22 left stump -Combined with other wound No -Photo Taken No -Tunneling No -Undermining/Tunneling No -Circular Undermining No -Exudate Amt Medium (34-66%) -Exudate Type Serous -Wound Margin Indistinct, Non -Visible -Granulation Amt Small (1-33%) -Granulation Quality Pale [place] -Slough/Fibrin Yes -Necrosis Amt Large (67-100%) -Necrotic Tissue Type Adherent Slough -Structure Exposed None/Limited to Skin Breakdown -Texture (Martha-wound Skin Appearance) Assessed Localized Edema Scarring -Moisture (Martha-wound Skin Appearance Assessed ) Maceration Weeping -Color (Martha-wound Skin Appearance) No Abnormality Assessed -Temperature (Martha-wound Skin No Abnormality Appearance) (Pt Warm) -Tenderness on Palpation (Martha-wound No Skin Appearance) -Ulcer Cleansing soap #13 R Med Heel -Combined with other wound No -Current Size (cm) - Length 1.5 -Current Size (cm) - Width 2.0 -Current Size (cm) - Depth 0.1 -Total Square Cm 3.00 -Photo Taken No -Tunneling No -Undermining/Tunneling No -Circular Undermining No -Exudate Amt None Present (0 %) -Wound Margin Indistinct, Non -Visible -Granulation Amt None Present (0 %) -Granulation Quality N/A -Slough/Fibrin Yes -Necrosis Amt Small (1-33%) -Necrotic Tissue Type Adherent Slough -Structure Exposed None/Limited to Skin Breakdown -Texture (Martha-wound Skin Appearance) Assessed Scarring -Moisture (Martha-wound Skin Appearance Assessed ) Dry/Scaly -Color (Martha-wound Skin Appearance) No Abnormality Assessed -Temperature (Martha-wound Skin No Abnormality Appearance) (Pt Warm) -Tenderness on Palpation (Martha-wound No Skin Appearance) -Ulcer Cleansing soap -Foul Odor after Cleansing No #21 Right Foot-Toes w/Metatarsal Head circumfrential -Combined with other wound No -Current Size (cm) - Length 13.5 -Current Size (cm) - Width 6.0 -Current Size (cm) - Depth 0.1 -Total Square Cm 81.00 -Photo Taken No -Epithelialization None Present -Tunneling No -Undermining/Tunneling No -Circular Undermining No -Exudate Amt Medium (34-66%) -Exudate Type Serous -Wound Margin Indistinct, Non -Visible -Granulation Amt Small (1-33%) -Granulation Quality Pale [place] -Slough/Fibrin Yes -Necrosis Amt Large (67-100%) -Necrotic Tissue Type Adherent Slough -Structure Exposed None/Limited to Skin Breakdown -Texture (Martha-wound Skin Appearance) Assessed Localized Edema Scarring -Moisture (Martha-wound Skin Appearance Assessed ) Weeping -Color (Martha-wound Skin Appearance) No Abnormality Assessed -Temperature (Martha-wound Skin No Abnormality Appearance) (Pt Warm) -Tenderness on Palpation (Martha-wound No Skin Appearance) -Ulcer Cleansing soap -Foul Odor after Cleansing No [Edema Assessment] -Lower Limb Edema Present Yes -Right Calf (cm) 38 -Right Ankle (cm) 36 Musculoskeletal: No Tenderness to Palpation of Joints or Extremities, Muscle Wasting Neurological: - - Lack of epicritic sensation light touch bilateral lower extremities Psych/Mental Status: Normal Affect, Appropriate Debridement Note Post-Debridement Measurements/Treatment WC - Nurse 2 - General Ulcer CM Notes Start: 05/09/18 09:56 Freq: Status: Active Protocol: Activity Type Activity Date Activity User E-Sign Co-Sign Detail Recorded Client Recorded Date Recorded By Document 05/11/18 08:33 [id number] 05/11/18 08:38 Document 05/18/18 09:52 [id number] 05/18/18 09:55 05/11/18 05/18/18 08:33 09:52 Wound Center Nurse 2 #22 left stump -Time 08:35 09:52 -Correct Patient Yes Yes -Correct Side, Site, Position Yes Yes -Correct Procedure Yes Yes -Procedure Performed Yes Yes -Type of Procedure Debridement Debridement -Clinical Debridement Subcutaneous Subcutaneous -Post Debridement Size (cm) - Length 0.8 13.1 -Post Debridement Size (cm) - Width 0.9 15.0 -Post Debridement Size (cm) - Depth 0.1 0.1 -Total Square Cm 0.72 196.50 -Wound/Ulcer Outcome Not Healed Not Healed -Ulcer Cleansing Rinsed/ Rinsed/ Irrigated with Irrigated with Saline Saline -Foul Odor after Cleansing No No -Bioengineered Tissue No No -Topical Lidocaine (%) 4 -Bleeding Controlled with Pressure Pressure -Offloading Yes No -Treatment Response Procedure Procedure Tolerated Well Tolerated Well #13 R Med Heel -Time 08:35 09:53 -Correct Patient Yes Yes -Correct Side, Site, Position Yes Yes -Correct Procedure Yes Yes -Procedure Performed Yes Yes -Type of Procedure Debridement Debridement -Clinical Debridement Subcutaneous Subcutaneous -Post Debridement Size (cm) - Length 1.5 1.5 -Post Debridement Size (cm) - Width 1.6 2.6 -Post Debridement Size (cm) - Depth 0.1 0.1 -Total Square Cm 2.40 3.90 -Wound/Ulcer Outcome Not Healed Not Healed -Ulcer Cleansing Rinsed/ Rinsed/ Irrigated with Irrigated with Saline Saline -Foul Odor after Cleansing No No -Bioengineered Tissue Yes Yes -Type of bioengineered Tissue Prime FocusSHIELD -Expiration Date 02/24/23 04/07/23 -Product Lot Number [id number] -Percent Used 50 100 -Saline Lot Number [id number] -Topical Lidocaine (%) 4 -Bleeding Controlled with Pressure Pressure -Offloading Yes No -Treatment Response Procedure Procedure Tolerated Well Tolerated Well #21 Right Foot-Toes w/Metatarsal Head circumfrential -Time 08:36 09:54 -Correct Patient Yes Yes -Correct Side, Site, Position Yes Yes -Correct Procedure Yes Yes -Procedure Performed Yes Yes -Type of Procedure Debridement Debridement -Clinical Debridement Subcutaneous Subcutaneous -Post Debridement Size (cm) - Length 11.1 11.0 -Post Debridement Size (cm) - Width 5.1 7.1 -Post Debridement Size (cm) - Depth 0.1 0.1 -Total Square Cm 56.61 78.10 -Wound/Ulcer Outcome Not Healed Not Healed -Ulcer Cleansing Rinsed/ Rinsed/ Irrigated with Irrigated with Saline Saline -Foul Odor after Cleansing No No -Bioengineered Tissue No Yes -Type of bioengineered Tissue NU-SHIELD -Expiration Date 02/24/23 04/07/23 -Product Lot Number [id number] -Percent Used 50 100 -Saline Lot Number [id number] -Topical Lidocaine (%) 4 -Bleeding Controlled with Pressure Pressure -Offloading Yes No -Treatment Response Procedure Procedure Tolerated Well Tolerated Well Pain Scale: 0-10 Numeric Is Patient Pain Free? Yes Yes Wound debrided: heel Laterality: Right Wound Grade/Stage: grade 3 Type of Debridement: Excisional debridement Anesthesia Used: 5% Lidocaine Gel Depth: in the subcutaneous layer Percentage of wound debrided: 100 Instrument Used: #15 blade Tissue Removed: fibrous, devitalized subcutaneous, biofilm, slough Severity: Fat Layer Exposed Amount of bleeding with debridement: Mild Bleeding Controlled with: Pressure Patient tolerated procedure well - Additional Wound Wound debrided: toes Laterality: Right Wound Grade/Stage: grade 1 Type of Debridement: Excisional debridement Anesthesia Used: 4% Lidocaine Solution Depth: in the subcutaneous layer Percentage of wound debrided: 100 Instrument Used: #15 blade Tissue Removed: fibrous, devitalized subcutaneous, biofilm, slough Severity: Fat Layer Exposed Amount of bleeding with debridement: Mild Bleeding Controlled with: Pressure Patient tolerated procedure: Patient tolerated procedure well - Additional Wound Wound debrided: bka stump Laterality: Left Wound Grade/Stage: stump Type of Debridement: Excisional debridement Anesthesia Used: 4% Lidocaine Solution Depth: in the subcutaneous layer Percentage of wound debrided: 100 Instrument Used: #15 blade Tissue Removed: fibrous, devitalized subcutaneous, biofilm, slough Severity: Fat Layer Exposed Amount of bleeding with debridement: Mild Bleeding Controlled with: Pressure Patient tolerated procedure: Patient tolerated procedure well Assessment/Plan Active Problems Chronic ulcer of right foot with fat layer exposed (Chronic) Ulcer of left lower extremity with fat layer exposed (Chronic) Type 2 diabetes mellitus with diabetic polyneuropathy (Chronic) Delayed wound healing (Chronic) Edema of both legs (Chronic) Assessment: ulcer right forefoot (digit 2). right heel ulcer muscle involved and exposed fascia without infection noted today (previous grade 3); s/p surgical debridement and application of advance wound care products (amniofil and epicord). 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 Lymphedema. Chronic lower extremity edema and venous insufficiency. Morbid obesity. Type 2 diabetes uncontrolled with peripheral neuropathy. CKD. Hypertension. Malnutrition. Delayed wound healing. Nonadherence to treatment plan Plan: I reviewed and discussed his case debridement done as documented above in the clinical panel; this procedure was well tolerated. Advance wound care product, nushield, was applied according to standard protocol to the right heel. This was further secured with a wound veil and Steri-Strips. Verbal consent was obtained. He tolerated this well. Aquacel Ag was applied to the left limb and gauze were applied interdigitally to the right forefoot; to change daily. Continue compression and elevate lower extremity when sitting and in bed. Optimal blood sugar contol. We discussed compliance and I recommend elevating only 75% of the time. To avoid trauma to the right foot as he sustained last week. Continue protein suppplements and increased protein in diet. To continue hyperbaric oxygen therapy as scheduled on complaint basis. I encouraged continued use. I also recommend a lymphedema clinic. He went approximately 3 years ago and found this to be very helpful. He no longer has his thigh-high compression garments that were arranged for him during this last session. There is a lymphedema clinic in [facility] and his information was sent over; they will call him to schedule his evaluation appointment. To improve compliance with compression pumps. Follow up in 1 week with at the wound healing center or call sooner if he has any questions or concerns.
[2018-05-25 10:41] LABS: Bedside Glucose 424 mg/dL (70-110)
--- NOTE | 2018-05-25 10:55 | NURSING ---
Juanito Valdes MD. ordered a no dive today d/t elevated blood sugar. Blood sugar was 424.
[2018-05-26 10:31] LABS: Bedside Glucose 242 mg/dL (70-110)
--- NOTE | 2018-05-26 10:55 | HBO.PN.PCM_ITS ---
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 Progress: The patient appears to be tolerating hyperbaric oxygen therapy well. Today's session represents the 66th such session of hyperbaric oxygen therapy. Tolerance of hyperbaric oxygen therapy: Hyperbaric oxygen therapy was administered as per the facility's protocol. The patient tolerated hyperbaric oxygen therapy well, without complaints or complications. Upon emergence from the hyperbaric chamber, patient's vital signs remained stable. Patient was discharged in good condition. Past Medical History Chronic Problems Chronic ulcer of right foot with fat layer exposed (Chronic) Ulcer of left lower extremity with fat layer exposed (Chronic) Ulcer of right lower extremity with fat layer exposed (Chronic) Ulcer of left lower extremity, limited to breakdown of skin (Chronic) Ulcer of left lower extremity, limited to breakdown of skin (Chronic) Non-pressure chronic ulcer of other part of right foot with fat layer exposed (Chronic) Complete below knee amputation of left lower extremity (Chronic) Ulcer of right foot with necrosis of muscle (Chronic) Ulcer of right foot with fat layer exposed (Chronic) 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) Delayed wound healing (Chronic) Malnutrition (Chronic) Venous insufficiency (Chronic) Lymphedema (Chronic) Edema of both legs (Chronic) GERD (gastroesophageal reflux disease) (Chronic) Hypertension (Chronic) Hyperlipemia (Chronic) Morbid obesity with BMI of 45.0-49.9, adult (Chronic) Hyperlipidemia associated with type 2 diabetes mellitus (Chronic) 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 Allergies/Adverse Reactions: Allergies bee venom protein (honey bee) Allergy (Verified 12/13/17 09:30) Swelling metronidazole [From Flagyl] Allergy (Verified 12/13/17 09:30) Itching Home Medications: Ambulatory Orders Medication Instructions Recorded Atorvastatin Calcium [Lipitor] 10 mg PO QHS 01/08/17 Brimonidine Tartrate 0.2% 1 drop EACH EYE BID 01/08/17 [Brimonidine 0.2% 5Ml Bottle] Ergocalciferol [Vitamin D] 50,000 unit PO FR 01/08/17 Gabapentin [Neurontin] 1,600 mg PO QHS 01/08/17 Gabapentin [Neurontin] 600 mg PO DAILY 01/08/17 Insulin U-500 [Humulin R U-500 105 units SC DINNER 01/08/17 ([facility])] Insulin U-500 [Humulin R U-500 105 units SC LUNCH 01/08/17 ([facility])] Insulin U-500 [Humulin R U-500 160 units SC BREAKFAST 01/08/17 ([facility])] Latanoprost 0.005% [Xalatan 1 drop EACH EYE QHS 01/08/17 Opthalmic] Losartan Potassium [Cozaar] 50 mg PO DAILY 01/08/17 Nebivolol HCl [Bystolic (Beta 10 mg PO DAILY 01/08/17 Akira)] Omeprazole [Prilosec] 40 mg PO DAILY 01/08/17 Acetaminophen [Tylenol Tablet] 650 mg PO Q6H PRN PRN tablet 09/07/17 Clopidogrel Bisulfate [Plavix] 75 mg PO DAILY 09/07/17 Menthol/Lanolin/Calamine/Znox 1 applic TOPICAL 0600,2200 tube 09/21/17 [Calmoseptine Ointment] Nutritional Supplement [Madhu - 1 packet PO BIDCM #60 packet 09/21/17 ORANGE FLAVOR] Nystatin Powder [Mycostatin Powder] 1 applic TOPICAL 0600,2200 bottle 09/21/17 Ferrous Sulfate [Iron] 325 mg PO BID 10/14/17 Clindamycin HCl 300 mg PO [id number] #40 cap 12/13/17 Maternal Family History: Diabetes Paternal Family History: Hypertension Sibling Family History: Diabetes Smoking Status: Former smoker Physical Exam Vital Signs Temp Pulse Resp BP 96.8 F L 88 18 184/83 H 05/25/18 08:03 05/25/18 08:03 05/25/18 08:03 05/25/18 08:03 General: Alert, Oriented x3, Cooperative, No apparent distress HEENT: Atraumatic, Normocephalic Lungs: Normal air movement Psych/Mental Status: Normal Affect Assessment/Plan Active Problems Chronic ulcer of right foot with fat layer exposed (Chronic) Ulcer of left lower extremity with fat layer exposed (Chronic) Type 2 diabetes mellitus with diabetic polyneuropathy (Chronic) Delayed wound healing (Chronic) Edema of both legs (Chronic) The patient appears to be tolerating hyperbaric oxygen therapy well, which will be continued as per the patient's medical plan.
[2018-05-26 10:58] VITALS: BP 134/67; BP 149/80; PULSE 75; PULSE 80; RESP 16; RESP 18; TEMP 36; TEMP 36.2
[2018-05-26 12:41] LABS: Bedside Glucose 181 mg/dL (70-110)
[2018-05-27 10:06] LABS: Bedside Glucose 191 mg/dL (70-110)
[2018-05-27 11:28] VITALS: BP 140/73; BP 152/75; PULSE 76; PULSE 78; RESP 18; TEMP 36.2; TEMP 36.4
--- NOTE | 2018-05-27 12:15 | PCM.HBO.PN ---
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 Progress: The patient appears to be tolerating hyperbaric oxygen therapy well. Today's session represents the 66th such session of hyperbaric oxygen therapy. Tolerance of hyperbaric oxygen therapy: Hyperbaric oxygen therapy was administered as per the facility's protocol. The patient tolerated hyperbaric oxygen therapy well, without complaints or complications. Upon emergence from the hyperbaric chamber, patient's vital signs remained stable. Patient was discharged in good condition. Past Medical History Chronic Problems Chronic ulcer of right foot with fat layer exposed (Chronic) Ulcer of left lower extremity with fat layer exposed (Chronic) Ulcer of right lower extremity with fat layer exposed (Chronic) Ulcer of left lower extremity, limited to breakdown of skin (Chronic) Ulcer of left lower extremity, limited to breakdown of skin (Chronic) Non-pressure chronic ulcer of other part of right foot with fat layer exposed (Chronic) Complete below knee amputation of left lower extremity (Chronic) Ulcer of right foot with necrosis of muscle (Chronic) Ulcer of right foot with fat layer exposed (Chronic) 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) Delayed wound healing (Chronic) Malnutrition (Chronic) Venous insufficiency (Chronic) Lymphedema (Chronic) Edema of both legs (Chronic) GERD (gastroesophageal reflux disease) (Chronic) Hypertension (Chronic) Hyperlipemia (Chronic) Morbid obesity with BMI of 45.0-49.9, adult (Chronic) Hyperlipidemia associated with type 2 diabetes mellitus (Chronic) 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 Allergies/Adverse Reactions: Allergies bee venom protein (honey bee) Allergy (Verified 12/13/17 09:30) Swelling metronidazole [From Flagyl] Allergy (Verified 12/13/17 09:30) Itching Home Medications: Ambulatory Orders Medication Instructions Recorded Atorvastatin Calcium [Lipitor] 10 mg PO QHS 01/08/17 Brimonidine Tartrate 0.2% 1 drop EACH EYE BID 01/08/17 [Brimonidine 0.2% 5Ml Bottle] Ergocalciferol [Vitamin D] 50,000 unit PO FR 01/08/17 Gabapentin [Neurontin] 1,600 mg PO QHS 01/08/17 Gabapentin [Neurontin] 600 mg PO DAILY 01/08/17 Insulin U-500 [Humulin R U-500 105 units SC DINNER 01/08/17 ([facility])] Insulin U-500 [Humulin R U-500 105 units SC LUNCH 01/08/17 ([facility])] Insulin U-500 [Humulin R U-500 160 units SC BREAKFAST 01/08/17 ([facility])] Latanoprost 0.005% [Xalatan 1 drop EACH EYE QHS 01/08/17 Opthalmic] Losartan Potassium [Cozaar] 50 mg PO DAILY 01/08/17 Nebivolol HCl [Bystolic (Beta 10 mg PO DAILY 01/08/17 Akira)] Omeprazole [Prilosec] 40 mg PO DAILY 01/08/17 Acetaminophen [Tylenol Tablet] 650 mg PO Q6H PRN PRN tablet 09/07/17 Clopidogrel Bisulfate [Plavix] 75 mg PO DAILY 09/07/17 Menthol/Lanolin/Calamine/Znox 1 applic TOPICAL 0600,2200 tube 09/21/17 [Calmoseptine Ointment] Nutritional Supplement [Madhu - 1 packet PO BIDCM #60 packet 09/21/17 ORANGE FLAVOR] Nystatin Powder [Mycostatin Powder] 1 applic TOPICAL 0600,2200 bottle 09/21/17 Ferrous Sulfate [Iron] 325 mg PO BID 10/14/17 Clindamycin HCl 300 mg PO [id number] #40 cap 12/13/17 Maternal Family History: Diabetes Paternal Family History: Hypertension Sibling Family History: Diabetes Smoking Status: Former smoker Physical Exam Vital Signs Temp Pulse Resp BP 97.2 F L 78 18 140/73 H 05/27/18 11:28 05/27/18 11:28 05/27/18 11:28 05/27/18 11:28 Assessment/Plan Active Problems Chronic ulcer of right foot with fat layer exposed (Chronic) Ulcer of left lower extremity with fat layer exposed (Chronic) Type 2 diabetes mellitus with diabetic polyneuropathy (Chronic) Delayed wound healing (Chronic) Edema of both legs (Chronic) The patient appears to be tolerating hyperbaric oxygen therapy well, which will be continued as per the patient's medical plan.
[2018-05-27 12:40] LABS: Bedside Glucose 129 mg/dL (70-110)
[2018-06-01 08:07] VITALS: BP 129/64; PULSE 85; RESP 18; TEMP 35.9
--- NOTE | 2018-06-01 08:43 | PCM.WC.PN ---
(1) Chronic ulcer of right foot with fat layer exposed Status: Chronic Current Visit: Yes Code(s): L97.512 - Non-pressure chronic ulcer of other part of right foot with fat layer exposed (2) Ulcer of left lower extremity with fat layer exposed Status: Chronic Current Visit: Yes Code(s): L97.922 - Non-pressure chronic ulcer of unspecified part of left lower leg with fat layer exposed (3) Type 2 diabetes mellitus with diabetic polyneuropathy Status: Chronic Current Visit: Yes Code(s): E11.42 - Type 2 diabetes mellitus with diabetic polyneuropathy (4) Delayed wound healing Status: Chronic Current Visit: Yes Code(s): T14.8 - Other injury of unspecified body region (5) Edema of both legs Status: Chronic Current Visit: Yes Code(s): R60.0 - Localized edema Type of Wound Date of Service: 06/01/18 Chief Complaint: 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 wet cold foot History of Wound: 57-year-old white male returns to clinic for follow-up of bilateral leg ulcers and right foot ulcers. He denies fever, chill, nausea, vomiting, loss of appetite. He had multiple advanced wound care product applications. He continues with hyperbaric oxygen therapy sessions. He presents in a wheelchair today. He denies odors or redness. He does not recall his foot getting wet however this is noted during the dressing removal today. He denies pain. He is unable to cover his foot on his own. Progress of Wound: Stable right toe area. improving right heel area. Left stump site ulcer stable - Physical Exam Vital Signs Temp Pulse Resp BP 96.6 F L 85 18 129/64 H 06/01/18 08:07 06/01/18 08:07 06/01/18 08:07 06/01/18 08:07 General: Alert, Oriented x3, Cooperative Extremities: No cyanosis, Capillary Refill Less than 3 Seconds - Stump site left leg. Hallux right foot and delayed capillary refill time of less than 4 seconds lesser digits right foot, No Calf Tenderness - Negative Harry and Badillo right, Cool - Digits are cool and moist and in pattern of underlying gauze and there is concern of hypothermia, Diminished Peripheral Pulses, Edema - Moderate bilateral lower extremities, - - Left below-knee amputation stump Skin: Ulcer/ Wound - No purulence, erythema hamstring, odor, or infection. Peripheral skin is hairless and atrophic. Wound Measurements and Assessment WC - Nurse 1 - General Ulcer Measurement Start: 05/09/18 09:56 Freq: Status: Active Protocol: Activity Type Activity Date Activity User E-Sign Co-Sign Detail Recorded Client Recorded Date Recorded By Document 06/01/18 08:07 ANUP [id number] 06/01/18 08:14 ANUP 06/01/18 08:07 Wound Center Nurse 1 [Ulcer Assessment] #22 left stump -Combined with other wound No -Current Size (cm) - Length 0.1 -Current Size (cm) - Width 0.1 -Current Size (cm) - Depth 0.1 -Total Square Cm 0.01 -Photo Taken No -Epithelialization Large 67-100% -Tunneling No -Undermining/Tunneling No -Circular Undermining No -Exudate Amt Medium (34-66%) -Exudate Type Serosanguineous -Wound Margin Flat & Intact -Granulation Amt Small (1-33%) -Granulation [place] -Slough/Fibrin Yes -Necrosis Amt Medium (34-66%) -Necrotic Tissue Type Adherent Slough -Structure Exposed N/A -Texture (Martha-wound Skin Appearance) Assessed Excoriation Localized Edema -Moisture (Martha-wound Skin Appearance Assessed ) Weeping Dry/Scaly -Color (Martha-wound Skin Appearance) Assessed -Temperature (Martha-wound Skin No Abnormality Appearance) (Pt Warm) -Tenderness on Palpation (Martha-wound No Skin Appearance) -Ulcer Cleansing Wound Cleanser -Foul Odor after Cleansing No -Anesthetic Used 4% Lidocaine Solution #13 R Med Heel -Combined with other wound No -Current Size (cm) - Length 0.6 -Current Size (cm) - Width 0.3 -Current Size (cm) - Depth 0.1 -Total Square Cm 0.18 -Photo Taken No -Epithelialization Large 67-100% -Tunneling No -Undermining/Tunneling No -Circular Undermining No -Exudate Amt Small (1-33%) -Exudate Type Serosanguineous -Wound Margin Flat & Intact -Granulation Amt Medium (34-66%) -Granulation [place] -Slough/Fibrin Yes -Necrosis Amt Medium (34-66%) -Necrotic Tissue Type Adherent Slough -Structure Exposed N/A -Texture (Martha-wound Skin Appearance) Assessed Localized Edema -Moisture (Martha-wound Skin Appearance Assessed ) Dry/Scaly -Color (Martha-wound Skin Appearance) Assessed -Temperature (Martha-wound Skin No Abnormality Appearance) (Pt Warm) -Tenderness on Palpation (Martha-wound No Skin Appearance) -Ulcer Cleansing Wound Cleanser -Foul Odor after Cleansing No -Anesthetic Used 4% Lidocaine Solution #21 Right Foot-Toes w/Metatarsal Head circumfrential -Combined with other wound No -Current Size (cm) - Length 3.0 -Current Size (cm) - Width 1.0 -Current Size (cm) - Depth 0.1 -Total Square Cm 3.00 -Photo Taken No -Epithelialization None Present -Tunneling No -Undermining/Tunneling No -Circular Undermining No -Exudate Amt Large (67-100%) -Exudate Type Serosanguineous -Wound Margin Flat & Intact -Granulation Amt Medium (34-66%) -Granulation [place] -Slough/Fibrin Yes -Necrosis Amt Medium (34-66%) -Necrotic Tissue Type Adherent Slough -Texture (Martha-wound Skin Appearance) Assessed Excoriation Localized Edema -Moisture (Martha-wound Skin Appearance Assessed ) Maceration Weeping -Color (Martha-wound Skin Appearance) Assessed -Temperature (Martha-wound Skin No Abnormality Appearance) (Pt Warm) -Tenderness on Palpation (Martha-wound No Skin Appearance) -Ulcer Cleansing Wound Cleanser -Foul Odor after Cleansing No -Anesthetic Used 4% Lidocaine Solution [Edema Assessment] -Lower Limb Edema Present Yes -Right Calf (cm) 37.7 -Right Ankle (cm) 29.6 -Left Calf (cm) 42.5 WC - Nurse 2 - General Ulcer CM Notes Start: 05/09/18 09:56 Freq: Status: Active Protocol: Activity Type Activity Date Activity User E-Sign Co-Sign Detail Recorded Client Recorded Date Recorded By Document 06/01/18 08:32 ANUP [id number] 06/01/18 08:41 ANUP 06/01/18 08:32 Wound Center Nurse 2 [Procedure/Treatment] #22 left stump -Time 08:40 -Correct Patient Yes -Correct Side, Site, Position Yes -Correct Procedure Yes -Procedure Performed Yes -Type of Procedure Debridement -Clinical Debridement Subcutaneous -Post Debridement Size (cm) - Length 0.2 -Post Debridement Size (cm) - Width 0.2 -Post Debridement Size (cm) - Depth 0.1 -Total Square Cm 0.04 -Wound/Ulcer Outcome Not Healed -Ulcer Cleansing Rinsed/ Irrigated with Saline -Foul Odor after Cleansing No -Bioengineered Tissue No -Bleeding Controlled with Pressure -Offloading No -Treatment Response Procedure Tolerated Well #13 R Med Heel -Time 08:40 -Correct Patient Yes -Correct Side, Site, Position Yes -Correct Procedure Yes -Procedure Performed Yes -Type of Procedure Debridement -Clinical Debridement Subcutaneous -Post Debridement Size (cm) - Length 0.6 -Post Debridement Size (cm) - Width 0.4 -Post Debridement Size (cm) - Depth 0.1 -Total Square Cm 0.24 -Wound/Ulcer Outcome Not Healed -Ulcer Cleansing Rinsed/ Irrigated with Saline -Foul Odor after Cleansing No -Bioengineered Tissue No -Bleeding Controlled with Pressure -Offloading No -Treatment Response Procedure Tolerated Well #21 Right Foot-Toes w/Metatarsal Head circumfrential -Correct Patient No -Correct Side, Site, Position No -Correct Procedure No -Procedure Performed No [See Physician Procedure note for Specifics] Pain Scale: 0-10 Numeric [Pain] -Is Patient Pain Free? Yes Musculoskeletal: No Tenderness to Palpation of Joints or Extremities, Muscle Wasting Neurological: - - Lack of epicritic sensation light touch consistent with neuropathy Psych/Mental Status: Normal Affect, Appropriate Debridement Note Post-Debridement Measurements/Treatment WC - Nurse 2 - General Ulcer CM Notes Start: 05/09/18 09:56 Freq: Status: Active Protocol: Activity Type Activity Date Activity User E-Sign Co-Sign Detail Recorded Client Recorded Date Recorded By Document 05/11/18 08:33 [id number] 05/11/18 08:38 Document 05/18/18 09:52 [id number] 05/18/18 09:55 Document 05/25/18 10:21 [id number] 05/25/18 10:24 Document 06/01/18 08:32 [id number] 06/01/18 08:41 05/11/18 05/18/18 05/25/18 08:33 09:52 10:21 Wound Center Nurse 2 #22 left stump -Time 08:35 09:52 10:22 -Correct Patient Yes Yes Yes -Correct Side, Site, Position Yes Yes Yes -Correct Procedure Yes Yes Yes -Procedure Performed Yes Yes Yes -Type of Procedure Debridement Debridement Debridement -Clinical Debridement Subcutaneous Subcutaneous Subcutaneous -Post Debridement Size (cm) - Length 0.8 13.1 0.5 -Post Debridement Size (cm) - Width 0.9 15.0 0.5 -Post Debridement Size (cm) - Depth 0.1 0.1 0.1 -Total Square Cm 0.72 196.50 0.25 -Wound/Ulcer Outcome Not Healed Not Healed Not Healed -Ulcer Cleansing Rinsed/ Rinsed/ Rinsed/ Irrigated with Irrigated with Irrigated with Saline Saline Saline -Foul Odor after Cleansing No No No -Bioengineered Tissue No No No -Topical Lidocaine (%) 4 -Bleeding Controlled with Pressure Pressure Pressure -Offloading Yes No No -Treatment Response Procedure Procedure Procedure Tolerated Well Tolerated Well Tolerated Well #13 R Med Heel -Time 08:35 09:53 10:22 -Correct Patient Yes Yes Yes -Correct Side, Site, Position Yes Yes Yes -Correct Procedure Yes Yes Yes -Procedure Performed Yes Yes Yes -Type of Procedure Debridement Debridement Debridement -Clinical Debridement Subcutaneous Subcutaneous Subcutaneous -Post Debridement Size (cm) - Length 1.5 1.5 1.5 -Post Debridement Size (cm) - Width 1.6 2.6 2.1 -Post Debridement Size (cm) - Depth 0.1 0.1 0.1 -Total Square Cm 2.40 3.90 3.15 -Wound/Ulcer Outcome Not Healed Not Healed Not Healed -Ulcer Cleansing Rinsed/ Rinsed/ Rinsed/ Irrigated with Irrigated with Irrigated with Saline Saline Saline -Foul Odor after Cleansing No No No -Bioengineered Tissue Yes Yes Yes -Type of bioengineered Tissue NU-SHIELD NU-SHIELD NU-SHIELD -Expiration Date 02/24/23 04/07/23 01/31/23 -Product Lot Number [id number] -Percent Used 50 100 100 -Saline Lot Number [id number] -Topical Lidocaine (%) 4 -Bleeding Controlled with Pressure Pressure Pressure -Offloading Yes No No -Treatment Response Procedure Procedure Procedure Tolerated Well Tolerated Well Tolerated Well #21 Right Foot-Toes w/Metatarsal Head circumfrential -Time 08:36 09:54 10:23 -Correct Patient Yes Yes Yes -Correct Side, Site, Position Yes Yes Yes -Correct Procedure Yes Yes Yes -Procedure Performed Yes Yes Yes -Type of Procedure Debridement Debridement Debridement -Clinical Debridement Subcutaneous Subcutaneous Subcutaneous -Post Debridement Size (cm) - Length 11.1 11.0 13.5 -Post Debridement Size (cm) - Width 5.1 7.1 6.1 -Post Debridement Size (cm) - Depth 0.1 0.1 0.1 -Total Square Cm 56.61 78.10 82.35 -Wound/Ulcer Outcome Not Healed Not Healed Not Healed -Ulcer Cleansing Rinsed/ Rinsed/ Rinsed/ Irrigated with Irrigated with Irrigated with Saline Saline Saline -Foul Odor after Cleansing No No No -Bioengineered Tissue No Yes Yes -Type of bioengineered Tissue NU-SHIELD NU-SHIELD -Expiration Date 02/24/23 04/07/23 01/31/23 -Product Lot Number [id number] -Percent Used 50 100 100 -Saline Lot Number [id number] -Topical Lidocaine (%) 4 -Bleeding Controlled with Pressure Pressure Pressure -Offloading Yes No No -Treatment Response Procedure Procedure Procedure Tolerated Well Tolerated Well Tolerated Well Pain Scale: 0-10 Numeric Is Patient Pain Free? Yes Yes Yes 06/01/18 08:32 Wound Center Nurse 2 #22 left stump -Time 08:40 -Correct Patient Yes -Correct Side, Site, Position Yes -Correct Procedure Yes -Procedure Performed Yes -Type of Procedure Debridement -Clinical Debridement Subcutaneous -Post Debridement Size (cm) - Length 0.2 -Post Debridement Size (cm) - Width 0.2 -Post Debridement Size (cm) - Depth 0.1 -Total Square Cm 0.04 -Wound/Ulcer Outcome Not Healed -Ulcer Cleansing Rinsed/ Irrigated with Saline -Foul Odor after Cleansing No -Bioengineered Tissue No -Topical Lidocaine (%) -Bleeding Controlled with Pressure -Offloading No -Treatment Response Procedure Tolerated Well #13 R Med Heel -Time 08:40 -Correct Patient Yes -Correct Side, Site, Position Yes -Correct Procedure Yes -Procedure Performed Yes -Type of Procedure Debridement -Clinical Debridement Subcutaneous -Post Debridement Size (cm) - Length 0.6 -Post Debridement Size (cm) - Width 0.4 -Post Debridement Size (cm) - Depth 0.1 -Total Square Cm 0.24 -Wound/Ulcer Outcome Not Healed -Ulcer Cleansing Rinsed/ Irrigated with Saline -Foul Odor after Cleansing No -Bioengineered Tissue No -Type of bioengineered Tissue -Expiration Date -Product Lot Number -Percent Used -Saline Lot Number -Topical Lidocaine (%) -Bleeding Controlled with Pressure -Offloading No -Treatment Response Procedure Tolerated Well #21 Right Foot-Toes w/Metatarsal Head circumfrential -Time -Correct Patient No -Correct Side, Site, Position No -Correct Procedure No -Procedure Performed No -Type of Procedure -Clinical Debridement -Post Debridement Size (cm) - Length -Post Debridement Size (cm) - Width -Post Debridement Size (cm) - Depth -Total Square Cm -Wound/Ulcer Outcome -Ulcer Cleansing -Foul Odor after Cleansing -Bioengineered Tissue -Type of bioengineered Tissue -Expiration Date -Product Lot Number -Percent Used -Saline Lot Number -Topical Lidocaine (%) -Bleeding Controlled with -Offloading -Treatment Response Pain Scale: 0-10 Numeric Is Patient Pain Free? Yes Wound debrided: heel Laterality: Right Wound Grade/Stage: grade 3 Type of Debridement: Excisional debridement Anesthesia Used: 5% Lidocaine Gel Depth: in the subcutaneous layer Percentage of wound debrided: 100 Instrument Used: #15 blade Tissue Removed: fibrous, devitalized subcutaneous, biofilm, slough Severity: Fat Layer Exposed Amount of bleeding with debridement: Mild Bleeding Controlled with: Pressure Patient tolerated procedure well - Additional Wound Wound debrided: leg stump Laterality: Left Wound Grade/Stage: grade 1 Type of Debridement: Excisional debridement Anesthesia Used: 5% Lidocaine Gel Depth: in the subcutaneous layer Percentage of wound debrided: 80 Instrument Used: #15 blade Tissue Removed: fibrous, devitalized subcutaneous, biofilm, slough Severity: Fat Layer Exposed Amount of bleeding with debridement: Mild Bleeding Controlled with: Pressure Patient tolerated procedure: Patient tolerated procedure well Assessment/Plan Active Problems Chronic ulcer of right foot with fat layer exposed (Chronic) Ulcer of left lower extremity with fat layer exposed (Chronic) Type 2 diabetes mellitus with diabetic polyneuropathy (Chronic) Delayed wound healing (Chronic) Edema of both legs (Chronic) Assessment: ulcer right forefoot (digit 2). right heel ulcer muscle involved and exposed fascia without infection noted today (previous grade 3); s/p surgical debridement and application of advance wound care products (amniofil and epicord). Right foot hypothermia. 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 Lymphedema. Chronic lower extremity edema and venous insufficiency. Morbid obesity. Type 2 diabetes uncontrolled with peripheral neuropathy. CKD. Hypertension. Malnutrition. Delayed wound healing. Nonadherence to treatment plan Plan: I reviewed and discussed his case debridement done as documented above in the clinical panel; this procedure was well tolerated. Advance wound care product application series, [email or web address], was to the right foot was completed last visit. I applied Guera and he is advised to change this every 1-2 days with home health assistance. Continue compression and elevate lower extremity when sitting and in bed. Optimal blood sugar contol. We discussed compliance and I recommend elevating only 75% of the time. To avoid trauma to the right foot as he sustained last week. Continue protein suppplements and increased protein in diet. To continue hyperbaric oxygen therapy as scheduled on complaint basis. I encouraged continued use. I also recommend a lymphedema clinic. He went approximately 3 years ago and found this to be very helpful. He no longer has his thigh-high compression garments that were arranged for him during this last session. There is a lymphedema clinic in [place] and his information was sent over. He has not been in contact with them yet and he was urged again today to call over and initiate this process if they have not called him her left her message yet. The contact information was provided again. To improve compliance with compression pumps. Hypothermia prevention, risks, complications and education was discussed today. He was advised to strictly cover his foot and to avoid cold or moisture exposure while outside. He understands he is at high risk for limb loss due to frostbite at this already compromised limb site. Additional care was taken to apply underlying Tubigrip and sock and dressing protection layers today. He was urged to be compliant with this prior to leaving his home in between clinic sessions. Follow up in 1 week with at the wound healing center or call sooner if he has any questions or concerns.
--- NOTE | 2018-06-01 08:49 | PN.PCM_ITS ---
(1) Chronic ulcer of right foot with fat layer exposed Status: Chronic Current Visit: Yes Code(s): L97.512 - Non-pressure chronic ulcer of other part of right foot with fat layer exposed (2) Ulcer of left lower extremity with fat layer exposed Status: Chronic Current Visit: Yes Code(s): L97.922 - Non-pressure chronic ulcer of unspecified part of left lower leg with fat layer exposed (3) Type 2 diabetes mellitus with diabetic polyneuropathy Status: Chronic Current Visit: Yes Code(s): E11.42 - Type 2 diabetes mellitus with diabetic polyneuropathy (4) Delayed wound healing Status: Chronic Current Visit: Yes Code(s): T14.8 - Other injury of unspecified body region (5) Edema of both legs Status: Chronic Current Visit: Yes Code(s): R60.0 - Localized edema Type of Wound Date of Service: 06/01/18 Chief Complaint: 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 wet cold foot History of Wound: 57-year-old white male returns to clinic for follow-up of bilateral leg ulcers and right foot ulcers. He denies fever, chill, nausea, vomiting, loss of appetite. He had multiple advanced wound care product applications. He continues with hyperbaric oxygen therapy sessions. He presents in a wheelchair today. He denies odors or redness. He does not recall his foot getting wet however this is noted during the dressing removal today. He denies pain. He is unable to cover his foot on his own. Progress of Wound: Stable right toe area. improving right heel area. Left stump site ulcer stable - Physical Exam Vital Signs Temp Pulse Resp BP 96.6 F L 85 18 129/64 H 06/01/18 08:07 06/01/18 08:07 06/01/18 08:07 06/01/18 08:07 General: Alert, Oriented x3, Cooperative Extremities: No cyanosis, Capillary Refill Less than 3 Seconds - Stump site left leg. Hallux right foot and delayed capillary refill time of less than 4 seconds lesser digits right foot, No Calf Tenderness - Negative Harry and Badillo right, Cool - Digits are cool and moist and in pattern of underlying gauze and there is concern of hypothermia, Diminished Peripheral Pulses, Edema - Moderate bilateral lower extremities, - - Left below-knee amputation stump Skin: Ulcer/ Wound - No purulence, erythema hamstring, odor, or infection. Peripheral skin is hairless and atrophic. Wound Measurements and Assessment WC - Nurse 1 - General Ulcer Measurement Start: 05/09/18 09:56 Freq: Status: Active Protocol: Activity Type Activity Date Activity User E-Sign Co-Sign Detail Recorded Client Recorded Date Recorded By Document 06/01/18 08:07 ANUP [id number] 06/01/18 08:14 ANUP 06/01/18 08:07 Wound Center Nurse 1 [Ulcer Assessment] #22 left stump -Combined with other wound No -Current Size (cm) - Length 0.1 -Current Size (cm) - Width 0.1 -Current Size (cm) - Depth 0.1 -Total Square Cm 0.01 -Photo Taken No -Epithelialization Large 67-100% -Tunneling No -Undermining/Tunneling No -Circular Undermining No -Exudate Amt Medium (34-66%) -Exudate Type Serosanguineous -Wound Margin Flat & Intact -Granulation Amt Small (1-33%) -Granulation Quality [place] -Slough/Fibrin Yes -Necrosis Amt Medium (34-66%) -Necrotic Tissue Type Adherent Slough -Structure Exposed N/A -Texture (Martha-wound Skin Appearance) Assessed Excoriation Localized Edema -Moisture (Martha-wound Skin Appearance Assessed ) Weeping Dry/Scaly -Color (Martha-wound Skin Appearance) Assessed -Temperature (Martha-wound Skin No Abnormality Appearance) (Pt Warm) -Tenderness on Palpation (Martha-wound No Skin Appearance) -Ulcer Cleansing Wound Cleanser -Foul Odor after Cleansing No -Anesthetic Used 4% Lidocaine Solution #13 R Med Heel -Combined with other wound No -Current Size (cm) - Length 0.6 -Current Size (cm) - Width 0.3 -Current Size (cm) - Depth 0.1 -Total Square Cm 0.18 -Photo Taken No -Epithelialization Large 67-100% -Tunneling No -Undermining/Tunneling No -Circular Undermining No -Exudate Amt Small (1-33%) -Exudate Type Serosanguineous -Wound Margin Flat & Intact -Granulation Amt Medium (34-66%) -Granulation Quality [place] -Slough/Fibrin Yes -Necrosis Amt Medium (34-66%) -Necrotic Tissue Type Adherent Slough -Structure Exposed N/A -Texture (Martha-wound Skin Appearance) Assessed Localized Edema -Moisture (Martha-wound Skin Appearance Assessed ) Dry/Scaly -Color (Martha-wound Skin Appearance) Assessed -Temperature (Martha-wound Skin No Abnormality Appearance) (Pt Warm) -Tenderness on Palpation (Martha-wound No Skin Appearance) -Ulcer Cleansing Wound Cleanser -Foul Odor after Cleansing No -Anesthetic Used 4% Lidocaine Solution #21 Right Foot-Toes w/Metatarsal Head circumfrential -Combined with other wound No -Current Size (cm) - Length 3.0 -Current Size (cm) - Width 1.0 -Current Size (cm) - Depth 0.1 -Total Square Cm 3.00 -Photo Taken No -Epithelialization None Present -Tunneling No -Undermining/Tunneling No -Circular Undermining No -Exudate Amt Large (67-100%) -Exudate Type Serosanguineous -Wound Margin Flat & Intact -Granulation Amt Medium (34-66%) -Granulation Quality Red -Slough/Fibrin Yes -Necrosis Amt Medium (34-66%) -Necrotic Tissue Type Adherent Slough -Texture (Martha-wound Skin Appearance) Assessed Excoriation Localized Edema -Moisture (Mratha-wound Skin Appearance Assessed ) Maceration Weeping -Color (Martha-wound Skin Appearance) Assessed -Temperature (Martha-wound Skin No Abnormality Appearance) (Pt Warm) -Tenderness on Palpation (Martha-wound No Skin Appearance) -Ulcer Cleansing Wound Cleanser -Foul Odor after Cleansing No -Anesthetic Used 4% Lidocaine Solution [Edema Assessment] -Lower Limb Edema Present Yes -Right Calf (cm) 37.7 -Right Ankle (cm) 29.6 -Left Calf (cm) 42.5 WC - Nurse 2 - General Ulcer CM Notes Start: 05/09/18 09:56 Freq: Status: Active Protocol: Activity Type Activity Date Activity User E-Sign Co-Sign Detail Recorded Client Recorded Date Recorded By Document 06/01/18 08:32 ANUP [id number] 06/01/18 08:41 ANUP 06/01/18 08:32 Wound Center Nurse 2 [Procedure/Treatment] #22 left stump -Time 08:40 -Correct Patient Yes -Correct Side, Site, Position Yes -Correct Procedure Yes -Procedure Performed Yes -Type of Procedure Debridement -Clinical Debridement Subcutaneous -Post Debridement Size (cm) - Length 0.2 -Post Debridement Size (cm) - Width 0.2 -Post Debridement Size (cm) - Depth 0.1 -Total Square Cm 0.04 -Wound/Ulcer Outcome Not Healed -Ulcer Cleansing Rinsed/ Irrigated with Saline -Foul Odor after Cleansing No -Bioengineered Tissue No -Bleeding Controlled with Pressure -Offloading No -Treatment Response Procedure Tolerated Well #13 R Med Heel -Time 08:40 -Correct Patient Yes -Correct Side, Site, Position Yes -Correct Procedure Yes -Procedure Performed Yes -Type of Procedure Debridement -Clinical Debridement Subcutaneous -Post Debridement Size (cm) - Length 0.6 -Post Debridement Size (cm) - Width 0.4 -Post Debridement Size (cm) - Depth 0.1 -Total Square Cm 0.24 -Wound/Ulcer Outcome Not Healed -Ulcer Cleansing Rinsed/ Irrigated with Saline -Foul Odor after Cleansing No -Bioengineered Tissue No -Bleeding Controlled with Pressure -Offloading No -Treatment Response Procedure Tolerated Well #21 Right Foot-Toes w/Metatarsal Head circumfrential -Correct Patient No -Correct Side, Site, Position No -Correct Procedure No -Procedure Performed No [See Physician Procedure note for Specifics] Pain Scale: 0-10 Numeric [Pain] -Is Patient Pain Free? Yes Musculoskeletal: No Tenderness to Palpation of Joints or Extremities, Muscle Wasting Neurological: - - Lack of epicritic sensation light touch consistent with neuropathy Psych/Mental Status: Normal Affect, Appropriate Debridement Note Post-Debridement Measurements/Treatment WC - Nurse 2 - General Ulcer CM Notes Start: 05/09/18 09:56 Freq: Status: Active Protocol: Activity Type Activity Date Activity User E-Sign Co-Sign Detail Recorded Client Recorded Date Recorded By Document 05/11/18 08:33 [id number] 05/11/18 08:38 Document 05/18/18 09:52 [id number] 05/18/18 09:55 Document 05/25/18 10:21 [id number] 05/25/18 10:24 Document 06/01/18 08:32 [id number] 06/01/18 08:41 05/11/18 05/18/18 05/25/18 08:33 09:52 10:21 Wound Center Nurse 2 #22 left stump -Time 08:35 09:52 10:22 -Correct Patient Yes Yes Yes -Correct Side, Site, Position Yes Yes Yes -Correct Procedure Yes Yes Yes -Procedure Performed Yes Yes Yes -Type of Procedure Debridement Debridement Debridement -Clinical Debridement Subcutaneous Subcutaneous Subcutaneous -Post Debridement Size (cm) - Length 0.8 13.1 0.5 -Post Debridement Size (cm) - Width 0.9 15.0 0.5 -Post Debridement Size (cm) - Depth 0.1 0.1 0.1 -Total Square Cm 0.72 196.50 0.25 -Wound/Ulcer Outcome Not Healed Not Healed Not Healed -Ulcer Cleansing Rinsed/ Rinsed/ Rinsed/ Irrigated with Irrigated with Irrigated with Saline Saline Saline -Foul Odor after Cleansing No No No -Bioengineered Tissue No No No -Topical Lidocaine (%) 4 -Bleeding Controlled with Pressure Pressure Pressure -Offloading Yes No No -Treatment Response Procedure Procedure Procedure Tolerated Well Tolerated Well Tolerated Well #13 R Med Heel -Time 08:35 09:53 10:22 -Correct Patient Yes Yes Yes -Correct Side, Site, Position Yes Yes Yes -Correct Procedure Yes Yes Yes -Procedure Performed Yes Yes Yes -Type of Procedure Debridement Debridement Debridement -Clinical Debridement Subcutaneous Subcutaneous Subcutaneous -Post Debridement Size (cm) - Length 1.5 1.5 1.5 -Post Debridement Size (cm) - Width 1.6 2.6 2.1 -Post Debridement Size (cm) - Depth 0.1 0.1 0.1 -Total Square Cm 2.40 3.90 3.15 -Wound/Ulcer Outcome Not Healed Not Healed Not Healed -Ulcer Cleansing Rinsed/ Rinsed/ Rinsed/ Irrigated with Irrigated with Irrigated with Saline Saline Saline -Foul Odor after Cleansing No No No -Bioengineered Tissue Yes Yes Yes -Type of bioengineered Tissue NU-SHIELD NU-SHIELD NU-SHIELD -Expiration Date 02/24/23 04/07/23 01/31/23 -Product Lot Number [id number] -Percent Used 50 100 100 -Saline Lot Number [id number] -Topical Lidocaine (%) 4 -Bleeding Controlled with Pressure Pressure Pressure -Offloading Yes No No -Treatment Response Procedure Procedure Procedure Tolerated Well Tolerated Well Tolerated Well #21 Right Foot-Toes w/Metatarsal Head circumfrential -Time 08:36 09:54 10:23 -Correct Patient Yes Yes Yes -Correct Side, Site, Position Yes Yes Yes -Correct Procedure Yes Yes Yes -Procedure Performed Yes Yes Yes -Type of Procedure Debridement Debridement Debridement -Clinical Debridement Subcutaneous Subcutaneous Subcutaneous -Post Debridement Size (cm) - Length 11.1 11.0 13.5 -Post Debridement Size (cm) - Width 5.1 7.1 6.1 -Post Debridement Size (cm) - Depth 0.1 0.1 0.1 -Total Square Cm 56.61 78.10 82.35 -Wound/Ulcer Outcome Not Healed Not Healed Not Healed -Ulcer Cleansing Rinsed/ Rinsed/ Rinsed/ Irrigated with Irrigated with Irrigated with Saline Saline Saline -Foul Odor after Cleansing No No No -Bioengineered Tissue No Yes Yes -Type of bioengineered Tissue NU-SHIELD NU-SHIELD -Expiration Date 02/24/23 04/07/23 01/31/23 -Product Lot Number [id number] -Percent Used 50 100 100 -Saline Lot Number [id number] -Topical Lidocaine (%) 4 -Bleeding Controlled with Pressure Pressure Pressure -Offloading Yes No No -Treatment Response Procedure Procedure Procedure Tolerated Well Tolerated Well Tolerated Well Pain Scale: 0-10 Numeric Is Patient Pain Free? Yes Yes Yes 06/01/18 08:32 Wound Center Nurse 2 #22 left stump -Time 08:40 -Correct Patient Yes -Correct Side, Site, Position Yes -Correct Procedure Yes -Procedure Performed Yes -Type of Procedure Debridement -Clinical Debridement Subcutaneous -Post Debridement Size (cm) - Length 0.2 -Post Debridement Size (cm) - Width 0.2 -Post Debridement Size (cm) - Depth 0.1 -Total Square Cm 0.04 -Wound/Ulcer Outcome Not Healed -Ulcer Cleansing Rinsed/ Irrigated with Saline -Foul Odor after Cleansing No -Bioengineered Tissue No -Topical Lidocaine (%) -Bleeding Controlled with Pressure -Offloading No -Treatment Response Procedure Tolerated Well #13 R Med Heel -Time 08:40 -Correct Patient Yes -Correct Side, Site, Position Yes -Correct Procedure Yes -Procedure Performed Yes -Type of Procedure Debridement -Clinical Debridement Subcutaneous -Post Debridement Size (cm) - Length 0.6 -Post Debridement Size (cm) - Width 0.4 -Post Debridement Size (cm) - Depth 0.1 -Total Square Cm 0.24 -Wound/Ulcer Outcome Not Healed -Ulcer Cleansing Rinsed/ Irrigated with Saline -Foul Odor after Cleansing No -Bioengineered Tissue No -Type of bioengineered Tissue -Expiration Date -Product Lot Number -Percent Used -Saline Lot Number -Topical Lidocaine (%) -Bleeding Controlled with Pressure -Offloading No -Treatment Response Procedure Tolerated Well #21 Right Foot-Toes w/Metatarsal Head circumfrential -Time -Correct Patient No -Correct Side, Site, Position No -Correct Procedure No -Procedure Performed No -Type of Procedure -Clinical Debridement -Post Debridement Size (cm) - Length -Post Debridement Size (cm) - Width -Post Debridement Size (cm) - Depth -Total Square Cm -Wound/Ulcer Outcome -Ulcer Cleansing -Foul Odor after Cleansing -Bioengineered Tissue -Type of bioengineered Tissue -Expiration Date -Product Lot Number -Percent Used -Saline Lot Number -Topical Lidocaine (%) -Bleeding Controlled with -Offloading -Treatment Response Pain Scale: 0-10 Numeric Is Patient Pain Free? Yes Wound debrided: heel Laterality: Right Wound Grade/Stage: grade 3 Type of Debridement: Excisional debridement Anesthesia Used: 5% Lidocaine Gel Depth: in the subcutaneous layer Percentage of wound debrided: 100 Instrument Used: #15 blade Tissue Removed: fibrous, devitalized subcutaneous, biofilm, slough Severity: Fat Layer Exposed Amount of bleeding with debridement: Mild Bleeding Controlled with: Pressure Patient tolerated procedure well - Additional Wound Wound debrided: leg stump Laterality: Left Wound Grade/Stage: grade 1 Type of Debridement: Excisional debridement Anesthesia Used: 5% Lidocaine Gel Depth: in the subcutaneous layer Percentage of wound debrided: 80 Instrument Used: #15 blade Tissue Removed: fibrous, devitalized subcutaneous, biofilm, slough Severity: Fat Layer Exposed Amount of bleeding with debridement: Mild Bleeding Controlled with: Pressure Patient tolerated procedure: Patient tolerated procedure well Assessment/Plan Active Problems Chronic ulcer of right foot with fat layer exposed (Chronic) Ulcer of left lower extremity with fat layer exposed (Chronic) Type 2 diabetes mellitus with diabetic polyneuropathy (Chronic) Delayed wound healing (Chronic) Edema of both legs (Chronic) Assessment: ulcer right forefoot (digit 2). right heel ulcer muscle involved and exposed fascia without infection noted today (previous grade 3); s/p surgical debridement and application of advance wound care products (amniofil and epicord). Right foot hypothermia. 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 Lymphedema. Chronic lower extremity edema and venous insufficiency. Morbid obesity. Type 2 diabetes uncontrolled with peripheral neuropathy. CKD. Hypertension. Malnutrition. Delayed wound healing. Nonadherence to treatment plan Plan: I reviewed and discussed his case debridement done as documented above in the clinical panel; this procedure was well tolerated. Advance wound care product application series, [email or web address], was to the right foot was completed last visit. I applied Guera and he is advised to change this every 1-2 days with home health assistance. Continue compression and elevate lower extremity when sitting and in bed. Optimal blood sugar contol. We discussed compliance and I recommend elevating only 75% of the time. To avoid trauma to the right foot as he sustained last week. Continue protein suppplements and increased protein in diet. To continue hyperbaric oxygen therapy as scheduled on complaint basis. I encouraged continued use. I also recommend a lymphedema clinic. He went approximately 3 years ago and found this to be very helpful. He no longer has his thigh-high compression garments that were arranged for him during this last session. There is a lymphedema clinic in [place] and his information was sent over. He has not been in contact with them yet and he was urged again today to call over and initiate this process if they have not called him her left her message yet. The contact information was provided again. To improve compliance with compression pumps. Hypothermia prevention, risks, complications and education was discussed today. He was advised to strictly cover his foot and to avoid cold or moisture exposure while outside. He understands he is at high risk for limb loss due to frostbite at this already compromised limb site. Additional care was taken to apply underlying Tubigrip and sock and dressing protection layers today. He was urged to be compliant with this prior to leaving his home in between clinic sessions. Follow up in 1 week with at the wound healing center or call sooner if he has any questions or concerns.
[2018-06-01 09:36] LABS: Bedside Glucose 115 mg/dL (70-110)
--- NOTE | 2018-06-01 09:58 | NURSING ---
Patient did not dive today per Dr. Valdes's orders. Patient's blood sugar was first taken at 0930, which registered 115. Spoke with Dr. Valdes and gave patient a glucena at 0942. After waiting 12 minutes, re-checked the patient's blood sugar, which dropped to 110. Spoke with Dr. Valdes again and to which she ordered for the patient not to dive today. Patient voiced understanding. Gave the patient an orange juice for the ride home per Dr. Valdes's orders. Patient will continue to monitor his blood sugar for the remainder of the day and will return tomorrow.
[2018-06-01 10:01] LABS: Bedside Glucose 110 mg/dL (70-110)
[2018-06-02 09:51] LABS: Bedside Glucose 163 mg/dL (70-110)
[2018-06-02 10:06] VITALS: BP 133/63; BP 149/62; PULSE 76; PULSE 82; RESP 16; RESP 18; TEMP 36.3; TEMP 36.4
--- NOTE | 2018-06-02 10:56 | PCM.HBO.PN ---
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 wet cold foot DEL BARRIOS is a 57 year old currently undergoing hyperbaric oxygen therapy for diabetic toe and heel ulcers with necrosis of bone, Brooks Grade 3. Progress: The patient appears to be tolerating hyperbaric oxygen therapy well. Tolerance of hyperbaric oxygen therapy: Hyperbaric oxygen therapy was administered as per the facility's protocol. The patient tolerated hyperbaric oxygen therapy well, without complaints or complications. Upon emergence from the hyperbaric chamber, patient's vital signs remained stable. Patient was discharged in good condition. Past Medical History Chronic Problems Chronic ulcer of right foot with fat layer exposed (Chronic) Ulcer of left lower extremity with fat layer exposed (Chronic) Ulcer of right lower extremity with fat layer exposed (Chronic) Ulcer of left lower extremity, limited to breakdown of skin (Chronic) Ulcer of left lower extremity, limited to breakdown of skin (Chronic) Non-pressure chronic ulcer of other part of right foot with fat layer exposed (Chronic) Complete below knee amputation of left lower extremity (Chronic) Ulcer of right foot with necrosis of muscle (Chronic) Ulcer of right foot with fat layer exposed (Chronic) 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) Delayed wound healing (Chronic) Malnutrition (Chronic) Venous insufficiency (Chronic) Lymphedema (Chronic) Edema of both legs (Chronic) GERD (gastroesophageal reflux disease) (Chronic) Hypertension (Chronic) Hyperlipemia (Chronic) Morbid obesity with BMI of 45.0-49.9, adult (Chronic) Hyperlipidemia associated with type 2 diabetes mellitus (Chronic) 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 Allergies/Adverse Reactions: Allergies bee venom protein (honey bee) Allergy (Verified 12/13/17 09:30) Swelling metronidazole [From Flagyl] Allergy (Verified 12/13/17 09:30) Itching Home Medications: Ambulatory Orders Medication Instructions Recorded Atorvastatin Calcium [Lipitor] 10 mg PO QHS 01/08/17 Brimonidine Tartrate 0.2% 1 drop EACH EYE BID 01/08/17 [Brimonidine 0.2% 5Ml Bottle] Ergocalciferol [Vitamin D] 50,000 unit PO FR 01/08/17 Gabapentin [Neurontin] 1,600 mg PO QHS 01/08/17 Gabapentin [Neurontin] 600 mg PO DAILY 01/08/17 Insulin U-500 [Humulin R U-500 105 units SC DINNER 01/08/17 ([facility])] Insulin U-500 [Humulin R U-500 105 units SC LUNCH 01/08/17 ([facility])] Insulin U-500 [Humulin R U-500 160 units SC BREAKFAST 01/08/17 ([facility])] Latanoprost 0.005% [Xalatan 1 drop EACH EYE QHS 01/08/17 Opthalmic] Losartan Potassium [Cozaar] 50 mg PO DAILY 01/08/17 Nebivolol HCl [Bystolic (Beta 10 mg PO DAILY 01/08/17 Akira)] Omeprazole [Prilosec] 40 mg PO DAILY 01/08/17 Acetaminophen [Tylenol Tablet] 650 mg PO Q6H PRN PRN tablet 09/07/17 Clopidogrel Bisulfate [Plavix] 75 mg PO DAILY 09/07/17 Menthol/Lanolin/Calamine/Znox 1 applic TOPICAL 0600,2200 tube 09/21/17 [Calmoseptine Ointment] Nutritional Supplement [Madhu - 1 packet PO BIDCM #60 packet 09/21/17 ORANGE FLAVOR] Nystatin Powder [Mycostatin Powder] 1 applic TOPICAL 0600,2200 bottle 09/21/17 Ferrous Sulfate [Iron] 325 mg PO BID 10/14/17 Clindamycin HCl 300 mg PO [id number] #40 cap 12/13/17 Maternal Family History: Diabetes Paternal Family History: Hypertension Sibling Family History: Diabetes Smoking Status: Former smoker Physical Exam Vital Signs Temp Pulse Resp BP 97.6 F L 82 16 149/62 H 06/02/18 10:06 06/02/18 10:06 06/02/18 10:06 06/02/18 10:06 General: Alert, Oriented x3, Cooperative, No apparent distress HEENT: Atraumatic, Normocephalic Lungs: Normal air movement Psych/Mental Status: Normal Affect Assessment/Plan Active Problems Cold-induced injury (Acute) Chronic ulcer of right foot with fat layer exposed (Chronic) Ulcer of left lower extremity with fat layer exposed (Chronic) Type 2 diabetes mellitus with diabetic polyneuropathy (Chronic) Delayed wound healing (Chronic) Edema of both legs (Chronic) The patient appears to be tolerating hyperbaric oxygen therapy well, which will be continued as per the patient's medical plan.
[2018-06-02 12:36] LABS: Bedside Glucose 71 mg/dL (70-110)
[2018-06-02 12:36] LABS: Bedside Glucose 62 mg/dL (70-110)
[2018-06-03 09:36] LABS: Bedside Glucose 72 mg/dL (70-110)
[2018-06-03 09:56] LABS: Bedside Glucose 68 mg/dL (70-110)
--- NOTE | 2018-06-03 10:07 | NURSING ---
Patient did not dive today for his HBOTx. D/t low blood sugar. I tested his blood sugar at 09:33am and it registered at 72. Gave the patient a glucerna and marilyn dunes to drink and eat. Re-checked patient's blood sugar at 09:54am and his blood sugar registered at 68. Patient denied s/s. 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 Also patient voiced he hasn't had his meals on wheels in approximately in a week and a half. Per Kalli Fallon NP, patient will not dive today. Patient voiced understanding. Before the patient left, gave another marilyn nicolee to eat, refused OJ and another glucerna. Patient stated he will get something to eat on the way back home when transport picks him back up. Patient will return for HBOTx on Wednesday.
[2018-06-06 09:41] LABS: Bedside Glucose 138 mg/dL (70-110)
[2018-06-06 10:06] LABS: Bedside Glucose 120 mg/dL (70-110)
[2018-06-06 10:41] LABS: Bedside Glucose 129 mg/dL (70-110)
--- NOTE | 2018-06-06 12:18 | NURSING ---
Patient did not dive today d/t his blood sugar. Tested patient's blood sugar at 09:35am, which read 138. Per Leif Jones RN, CHT and SHALONDA Simental gave the patient an orange juice with one packet of sugar mixed in. Patient drank the orange juice with sugar at 09:46am. Re-tested patient's blood sugar at 09:58am, which registered at 120. At 10:00am Per Leif Jones RN, CHT and approval from SHALONDA Simental, wait a half hour and re-test the patient again. At 10:35am, Re-tested the patient to which he registered at 129. Myself spoke with SHALONDA Simental, which she ordered for the patient to not dive today and to return Wednesday (when the office re-opens from holiday). SHALONDA Simental advised the patient to speak with his student development advisor regarding his low blood sugars for HBOTx. Myself advised when patient gets back home to speak with his student development advisor. Patient voiced understanding.
--- OUTSIDE RECORDS SUMMARY | 2018-07-02 08:55 | XMS RPT_ITS ---
:1960 Author Organization OHIP Support Name Relationship Address Phone D Unavailable Unavailable Unavailable DOYLE, JULIUS Unavailable [address] + [place] [address] D Unavailable Unavailable Unavailable DOYLE, JLUIUS Unavailable [address] + [place] [address] D Unavailable Unavailable Unavailable DOYLE, JULIUS Unavailable [address] + [place] [address] D Unavailable Unavailable Unavailable DOYLE, JULIUS Unavailable [address] + [place] [address] D Unavailable Unavailable Unavailable DOYLE, JULIUS Unavailable [address] + [place] [address] D Unavailable Unavailable Unavailable DOYLE, JULIUS Unavailable [address] + [place] [address] D Unavailable Unavailable Unavailable DOYLE, JULIUS Unavailable [address] + [place] [address] D Unavailable Unavailable Unavailable DOYLE, JULIUS Unavailable [address] + [place] [address] D Unavailable Unavailable Unavailable DOYLE, JULIUS Unavailable [address] + [place] [address] D Unavailable Unavailable Unavailable DOYLE, JULIUS Unavailable [address] + [place] [address] D Unavailable Unavailable Unavailable DOYLE, JULIUS Unavailable [address] + [place] [address] D Unavailable Unavailable Unavailable DOYLE, JULIUS Unavailable [address] + [place] [address] D Unavailable Unavailable Unavailable DOYLE, JULIUS Unavailable [address] + [place] [address] D Unavailable Unavailable Unavailable DOYLE, JULIUS Unavailable [address] + [place] [address] D Unavailable Unavailable Unavailable DOYLE, JULIUS Unavailable [address] + [place] [address] D Unavailable Unavailable Unavailable DOYLE, JULIUS Unavailable [address] + [place] [address] D Unavailable Unavailable Unavailable DOYLE, JULIUS Unavailable [address] + [place] [address] D Unavailable Unavailable Unavailable DOYLE, JULIUS Unavailable [address] + [place] [address] D Unavailable Unavailable Unavailable DOYLE, JULIUS Unavailable [address] + [place] [address] D Unavailable Unavailable Unavailable DOYLE, JULIUS Unavailable [address] + [place] [address] D Unavailable Unavailable Unavailable DOYLE, JULIUS Unavailable [address] + [place] [address] D Unavailable Unavailable Unavailable DOYLE, JULIUS Unavailable [address] + [place] [address] D Unavailable Unavailable Unavailable DOYLE, JULIUS Unavailable [address] + [place] [address] D Unavailable Unavailable Unavailable DOYLE, JULIUS Unavailable [address] + [place] [address] D Unavailable Unavailable Unavailable DOYLE, JULIUS Unavailable [address] + [place] [address] D Unavailable Unavailable Unavailable DOYLE, JULIUS Unavailable [address] + [place] [address] D Unavailable Unavailable Unavailable DOYLE, JULIUS Unavailable [address] + [place] [address] D Unavailable Unavailable Unavailable DOYLE, JULIUS Unavailable [address] + [place] [address] D Unavailable Unavailable Unavailable DOYLE, JULIUS Unavailable [address] + [place] [address] D Unavailable Unavailable Unavailable DOYLE, JULIUS Unavailable [address] + [place] [address] D Unavailable Unavailable Unavailable DOYLE, JULIUS Unavailable [address] + [place] [address] D Unavailable Unavailable Unavailable DOYLE, JULIUS Unavailable [address] + [place] [address] D Unavailable Unavailable Unavailable DOYLE, JULIUS Unavailable [address] + [place] [address] D Unavailable Unavailable Unavailable DOYLE, JULIUS Unavailable [address] + [place] [address] D Unavailable Unavailable Unavailable DOYLE, JULIUS Unavailable [address] + [place] [address] D Unavailable Unavailable Unavailable DOYLE, JULIUS Unavailable [address] + [place] [address] D Unavailable Unavailable Unavailable DOYLE, JULIUS Unavailable [address] + [place] [address] D Unavailable Unavailable Unavailable DOYLE, JULIUS Unavailable [address] + [place] [address] D Unavailable Unavailable Unavailable DOYLE, JULIUS Unavailable [address] + [place] [address] D Unavailable Unavailable Unavailable DOYLE, JULIUS Unavailable [address] + [place] [address] D Unavailable Unavailable Unavailable DOYLE, JULIUS Unavailable [address] + [place] [address] D Unavailable Unavailable Unavailable DOYLE, JULIUS Unavailable [address] + [place] [address] D Unavailable Unavailable Unavailable DOYLE, JULIUS Unavailable [address] + [place] [address] D Unavailable Unavailable Unavailable DOYLE, JULIUS Unavailable [address] + [place] [address] D Unavailable Unavailable Unavailable DOYLE, JULIUS Unavailable [address] + [place] [address] D Unavailable Unavailable Unavailable DOYLE, JULIUS Unavailable [address] + [place] [address] D Unavailable Unavailable Unavailable DOYLE, JULIUS Unavailable [address] + [place] [address] D Unavailable Unavailable Unavailable DOYLE, JULIUS Unavailable [address] + [place] [address] D Unavailable Unavailable Unavailable DOYLE, JULIUS Unavailable [address] + [place] [address] D Unavailable Unavailable Unavailable DOYLE, JULIUS Unavailable [address] + [place] [address] D Unavailable Unavailable Unavailable DOYLE, JULIUS Unavailable [address] + [place] [address] D Unavailable Unavailable Unavailable DOYLE, JULIUS Unavailable [address] + [place] [address] D Unavailable Unavailable Unavailable DOYLE, JULIUS Unavailable [address] + [place] [address] D Unavailable Unavailable Unavailable DOYLE, JULIUS Unavailable [address] + [place] [address] D Unavailable Unavailable Unavailable DOYLE, JULIUS Unavailable [address] + [place] [address] D Unavailable Unavailable Unavailable DOYLE, JULIUS Unavailable [address] + [place] [address] D Unavailable Unavailable Unavailable DOYLE, JULIUS Unavailable [address] + [place] [address] D Unavailable Unavailable Unavailable DOYLE, JULIUS Unavailable [address] + [place] [address] D Unavailable Unavailable Unavailable DOYLE, JULIUS Unavailable [address] + [place] [address] D Unavailable Unavailable Unavailable DOYLE, JULIUS Unavailable [address] + [place] [address] D Unavailable Unavailable Unavailable DOYLE, JULIUS Unavailable [address] + [place] [address] D Unavailable Unavailable Unavailable DOYLE, JULIUS Unavailable [address] + [place] [address] D Unavailable Unavailable Unavailable DOYLE, JULIUS Unavailable [address] + [place] [address] D Unavailable Unavailable Unavailable DOYLE, JULIUS Unavailable [address] + [place] [address] D Unavailable Unavailable Unavailable DOYLE, JULIUS Unavailable [address] + [place] [address] D Unavailable Unavailable Unavailable DOYLE, JULIUS Unavailable [address] + [place] [address] D Unavailable Unavailable Unavailable DOYLE, JULIUS Unavailable [address] + [place] [address] D Unavailable Unavailable Unavailable DOYLE, JULIUS Unavailable [address] + [place] [address] D Unavailable Unavailable Unavailable DOYLE, JULIUS Unavailable [address] + [place] [address] D Unavailable Unavailable Unavailable DOYLE, JULIUS Unavailable [address] + [place] [address] D Unavailable Unavailable Unavailable DOYLE, JULIUS Unavailable [address] + [place] [address] D Unavailable Unavailable Unavailable DOYLE, JULIUS Unavailable [address] + [place] [address] D Unavailable Unavailable Unavailable DOYLE, JULIUS Unavailable [address] + [place] [address] D Unavailable Unavailable Unavailable DOYLE, JULIUS Unavailable [address] + [place] [address] D Unavailable Unavailable Unavailable DOYLE, JULIUS Unavailable [address] + [place] [address] D Unavailable Unavailable Unavailable DOYLE, JULIUS Unavailable [address] + [place] [address] D Unavailable Unavailable Unavailable DOYLE, JULIUS Unavailable [address] + [place] [address] D Unavailable Unavailable Unavailable DOYLE, JULIUS Unavailable [address] + [place] [address] D Unavailable Unavailable Unavailable DOYLE, JULIUS Unavailable [address] + [place] [address] D Unavailable Unavailable Unavailable DOYLE, JULIUS Unavailable [address] + [place] [address] Care Team Providers Name Role Jose Hugo Attending Unavailable Kobe, Arnie Chi Primary Care Unavailable Fascione, Racehle Consulting Unavailable Oleghe, Efewongbe Attending Unavailable Oleghe, Efewongbe Referring Unavailable Castaneda, Valeria Attending Unavailable Kobe, Arnie Chi Primary Care Unavailable Fascione, Rachele Consulting Unavailable Castaneda, Valeria Attending Unavailable Fascione, Rachele Referring Unavailable Fascione, Rachele Attending Unavailable Fascione, Rachele Referring Unavailable CHILO RUSSELL Primary Care Unavailable Fascione, Rachele Attending Unavailable CHILO RUSSELL Primary Care Unavailable Fascione, Rachele Attending Unavailable CHILO RUSSELL Primary Care Unavailable Fascione, Rachele Attending Unavailable Fascione, Rachele Referring Unavailable CHILO RUSSELL Primary Care Unavailable Rachele Lux Attending Unavailable CHILO RUSSELL Primary Care Unavailable AntwanoneRachele Attending Unavailable Antwanone, Rachele Referring Unavailable CHILO RUSSELL Primary Care Unavailable CHILO RUSSELL Referring Unavailable CHILO RUSSELL Primary Care Unavailable CHILO RUSSELL Attending Unavailable Fascione, Rachele Attending Unavailable Fascione, Rachele Referring Unavailable CHILO RUSSELL Primary Care Unavailable Fascione, Rachele Attending Unavailable Fascione, Rachele Referring Unavailable CHILO RUSSELL Primary Care Unavailable Fascione, Rachele Attending Unavailable CHILO RUSSELL Primary Care Unavailable Fascione, Rachele Attending Unavailable Fascione, Rachele Referring Unavailable CHILO RUSSELL Primary Care Unavailable Oleghe, Efewongbe Attending Unavailable Oleghe, Efewongbe Referring Unavailable Tereletsky, Ruddy Admitting Unavailable Tereletsky, Ruddy Referring Unavailable CHILO RUSSELL Primary Care Unavailable Pilo, Dale Consulting Unavailable Kinar, Addis Attending Unavailable Fascione, Rachele Consulting Unavailable Tereletsky, Ruddy Admitting Unavailable Tereletsky, Ruddy Attending Unavailable Tereletsky, Ruddy Referring Unavailable CHILO RUSSELL Primary Care Unavailable Pilo, Dale Consulting Unavailable Fascione, Rachele Consulting Unavailable Tereletsky, Ruddy Consulting Unavailable Tereletsky, Ruddy Admitting Unavailable Tereletsky, Ruddy Attending Unavailable Tereletsky, Ruddy Referring Unavailable CHILO RUSSELL Primary Care Unavailable Pilo, Dale Consulting Unavailable Fascione, Rachele Consulting Unavailable Tereletsky, Ruddy Consulting Unavailable Tereletsky, Ruddy Admitting Unavailable Tereletsky, Ruddy Attending Unavailable Tereletsky, Ruddy Referring Unavailable CHILO RUSSELL Primary Care Unavailable Pilo, Dale Consulting Unavailable Fascione, Rachele Consulting Unavailable Tereletsky, Ruddy Consulting Unavailable Tereletsky, Ruddy Admitting Unavailable Tereletsky, Ruddy Attending Unavailable Tereletsky, Ruddy Referring Unavailable CHILO RUSSELL Primary Care Unavailable Pilo, Dale Consulting Unavailable Fascione, Rachele Consulting Unavailable Tereletsky, Ruddy Consulting Unavailable Fascione, Rachele Attending Unavailable CHILO RUSSELL Primary Care Unavailable Fascione, Rachele Attending Unavailable Fascione, Rachele Referring Unavailable CHILO RUSSELL Primary Care Unavailable Tereletsky, Ruddy Admitting Unavailable Tereletsky, Ruddy Attending Unavailable Tereletsky, Ruddy Referring Unavailable CHILO RUSSELL Primary Care Unavailable Pilo, Dale Consulting Unavailable Fascione, Rachele Consulting Unavailable Tereletsky, Ruddy Consulting Unavailable Tereletsky, Ruddy Admitting Unavailable Tereletsky, Ruddy Referring Unavailable CHILO RUSSELL Primary Care Unavailable Pilo, Dale Consulting Unavailable Traci Moura Attending Unavailable Fascione, Rachele Consulting Unavailable Gbaruk, Kombian Consulting Unavailable Tereletsky, Ruddy Admitting Unavailable Tereletsky, Ruddy Referring Unavailable CHILO RUSSELL Primary Care Unavailable PiloDale Consulting Unavailable Traci Moura Attending Unavailable Fascione, Rachele Consulting Unavailable [place]baruk, Kombian Consulting Unavailable Kobe, Arnie Chi Admitting Unavailable Kobe, Arnie Chi Attending Unavailable CHILO RUSSELL Primary Care Unavailable Dale Daigle Consulting Unavailable Fascione, Rachele Consulting Unavailable Fascione, Rachele Attending Unavailable Fascione, Rachele Referring Unavailable LauriJavierGodwin Attending Unavailable Fascione, Rachele Referring Unavailable Kobe, Arnie Chi Attending Unavailable Fascione, Rachele Attending Unavailable Kobe, Arnie Chi Attending Unavailable Kobe, Arnie Chi Referring Unavailable Kobe, Arnie Chi Primary Care Unavailable Kobe, Arnie Chi Attending Unavailable Kobe, Arnie Chi Attending Unavailable Kobe, Arnie Chi Referring Unavailable Kobe, Arnie Chi Primary Care Unavailable Kannan Augustina Attending Unavailable Kobe, Arnie Chi Attending Unavailable Kannan Augustnia Attending Unavailable Kannan, Augustina Referring Unavailable Kobe, Arnie Chi Primary Care Unavailable Fascione, Rachele Attending Unavailable Fascione, Rachele Referring Unavailable Kobe, Arnie Chi Primary Care Unavailable Fascione, Rachele Attending Unavailable Kobe, Arnie Chi Primary Care Unavailable Kannan, Augustina Attending Unavailable Kobe, Arnie Chi Primary Care Unavailable Fascione, Rachele Attending Unavailable Fascione, Rachele Referring Unavailable Kobe, Arnie Chi Primary Care Unavailable Fascione, Rachele Attending Unavailable Kobe, Arnie Chi Primary Care Unavailable Kobe, Arnie Chi Primary Care Unavailable Darinel Dinero Attending Unavailable BasaliTayo Attending Unavailable Basali Ayman Referring Unavailable Kobe, Arnie Chi Primary Care Unavailable Oleghe, Efewongbe Attending Unavailable Oleghe, Efewongbe Referring Unavailable Fascione, Rachele Attending Unavailable Kobe, Arnie Chi Primary Care Unavailable Fascione, Rachele Attending Unavailable Fascione, Rachele Referring Unavailable Kobe, Arnie Chi Primary Care Unavailable Fascione, Rachele Attending Unavailable Kobe, Arnie Chi Primary Care Unavailable SlabJose pastor Attending Unavailable Kobe, Arnie Chi Primary Care Unavailable Fascione, Rachele Consulting Unavailable Jose Mendoza Attending Unavailable Kobe, Arnie Chi Primary Care Unavailable Fascione, Rachele Consulting Unavailable Oleghe, Efewongbe Attending Unavailable Oleghe, Efewongbe Attending Unavailable Oleghe, Efewongbe Attending Unavailable Oleghe, Efewongbe Referring Unavailable Fascione, Rachele Attending Unavailable Kobe, [facility] Chi Primary Care Unavailable MariJuli Attending Unavailable Kobe, [facility] Primary Care Unavailable Fascione, Rachele Consulting Unavailable Oleghe, Efewongbe Attending Unavailable Oleghe, Efewongbe Referring Unavailable Jose Mendoza Attending Unavailable Kobe, [facility] Primary Care Unavailable Fascione, Rachele Consulting Unavailable Jose Mendoza Attending Unavailable Kobe, [facility] Chi Primary Care Unavailable Fascione, Rachele Consulting Unavailable Oleghe, Efewongbe Attending Unavailable Oleghe, Efewongbe Referring Unavailable Oleghe, Efewongbe Attending Unavailable Oleghe, Efewongbe Referring Unavailable Oleghe, Efewongbe Attending Unavailable Oleghe, Efewongbe Referring Unavailable Oleghe, Efewongbe Attending Unavailable Oleghe, Efewongbe Referring Unavailable Oleghe, Efewongbe Attending Unavailable Oleghe, Efewongbe Referring Unavailable Juli Guerra Attending Unavailable Kobe, [facility] Primary Care Unavailable Fascione, Rachele Consulting Unavailable Oleghe, Efewongbe Attending Unavailable Oleghe, Efewongbe Referring Unavailable Oleghe, Efewongbe Attending Unavailable Oleghe, Efewongbe Referring Unavailable Oleghe, Efewongbe Attending Unavailable Oleghe, Efewongbe Referring Unavailable Jose Mendoza Attending Unavailable Kobe, [facility] Primary Care Unavailable Fascione, Rachele Consulting Unavailable Fascione Rachele Attending Unavailable Kobe, [facility] Primary Care Unavailable Valeria Castaneda Attending Unavailable Kobe, [facility] Primary Care Unavailable Fascione, Rachele Consulting Unavailable Juli Guerra Attending Unavailable Kobe, Arnie Chi Primary Care Unavailable Fascione, Rachele Consulting Unavailable Oleghe, Efewongbe Attending Unavailable Oleghe, Efewongbe Referring Unavailable Oleghe, Efewongbe Attending Unavailable Oleghe, Efewongbe Referring Unavailable Oleghe, Efewongbe Attending Unavailable Oleghe, Efewongbe Referring Unavailable Oleghe, Efewongbe Attending Unavailable Oleghe, Efewongbe Referring Unavailable Oleghe, Efewongbe Attending Unavailable Oleghe, Efewongbe Referring Unavailable Oleghe, Efewongbe Attending Unavailable Oleghe, Efewongbe Referring Unavailable Fascione, Rachele Attending Unavailable Kobe, Arnie Chi Primary Care Unavailable Valeria Castaneda Attending Unavailable Kobe, Arnie Chi Primary Care Unavailable Fascione, Rachele Consulting Unavailable Jose Mendoza Attending Unavailable Kobe, Arnie Chi Primary Care Unavailable Fascione, Rachele Consulting Unavailable CHRISTIANO PARIKH Attending Unavailable SARAHSARA ([facility]) Attending Unavailable SEARS, LAUREN E Attending Unavailable EISENGART, LAUREN A Attending Unavailable EISENGART, LAUREN A Referring Unavailable SEARS, LAUREN E Attending Unavailable SEARS, LAUREN E Referring Unavailable SARAHSARA ([facility]) Attending Unavailable ANILAMARILYN CLAIRE Attending Unavailable SARAHSARA ([facility]) Referring Unavailable EISENGART, LAUREN A Attending Unavailable EISENGART, LAUREN A Referring Unavailable SEARS, LAUREN E Attending Unavailable SEARS, LAUREN E Referring Unavailable Kobe, Arnie-Chi Attending Unavailable PROBLEMS PROBLEMS DATE TYPE CONDITION / CODE ATTENDING STATUS SOURCE 05/25/2018 Unknown E11.621 - Type 2 Castaneda, Active [place] diabetes mellitus [facility] with foot ulcer / Hospital E11.621(ICD-10) Repository 05/25/2018 Unknown 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, Active Rudy 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 / L97.514(ICD-10) 04/06/2018 Unknown E11.42 - Type 2 Fascione, Active [place] diabetes mellitus [facility] with diabetic Hospital polyneuropathy / Repository E11.42(ICD-10) 12/30/2017 Unknown L97.512 - Oleghe, Active Rudy Non-pressure chronic [facility] ulcer of other part Hospital of right foot with Repository fat layer exposed / L97.512(ICD-10) 12/30/2017 Unknown L98.499 - Oleghe, Active [place] Non-pressure chronic [facility] ulcer of skin of Hospital other sites with Repository unspecified severity / L98.499(ICD-10) 12/30/2017 Unknown E11.8 - Type 2 Oleghe, Active [place] diabetes mellitus [facility] with unspecified Hospital complications / Repository E11.8(ICD-10) 12/16/2017 Unknown F11.20 - Opioid Basali, Ayman Active [place] dependence, Community uncomplicated / Hospital F11.20(ICD-10) Repository 12/02/2017 Unknown N18.3 - Chronic Augustina Brunner Active [place] kidney disease, Community stage 3 (moderate) / Hospital N18.3(ICD-10) Repository 11/09/2017 Active Retinal edema / SEARS, Active [place] H35.81(ICD-10) LAUREN [facility] Repository 10/29/2017 Unknown Z87.891 - Personal Kobe, Arnie Chi Active [place] history of nicotine Community dependence / Hospital Z87.891(ICD-10) Repository 10/29/2017 Unknown N17.9 - Acute kidney Augustina Brunner Active [place] failure, unspecified Community / N17.9(ICD-10) Hospital Repository 10/11/2017 Admitting Unknown / Kobe, Arnie-Chi Active [facility] Medical diagnosis UNK(Unknown) [facility] Repository 09/28/2017 Unknown Z01.810 - Encounter Lauri, [place] Active [place] for preprocedural [facility] cardiovascular Hospital examination / Repository Z01.810(ICD-10) 09/07/2017 Unknown L97.912 - Gbaruk, Active [place] Non-pressure chronic Koian [facility] ulcer of unspecified Hospital part of right lower Repository leg with fat layer exposed / L97.912(ICD-10) 11/05/2017 Unknown I89.0 - Lymphedema, Fascione, Active [place] [facility] I89.0(ICD-10) Repository 07/08/2017 Unknown E11.22 - Type 2 CHILO RUSSELL Active [place] diabetes mellitus [facility] with diabetic Hospital chronic kidney Repository disease / E11.22(ICD-10) 07/08/2017 Unknown N18.2 - Chronic CHILO RUSSELL Active [place] kidney disease, [facility] stage 2 (mild) / Hospital N18.2(ICD-10) Repository 05/28/2017 Active Unknown / Ravi PARIKH UNOtilia(Unknown) CHRISTIANO Dong [facility] Repository PROCEDURES PROCEDURES No Procedure Records FoundRESULTS RESULTS BEDSIDE GLUCOSE Collected: 05/25/2018 Status: F Source: [facility]UY 10:28 AM [facility] REPOSITORY TYPE CODE TESTS RESULT OUT OF REFERENCE UNITS RANGE LAB L501.080 70-110 mg/dL High BEDSIDE GLU 424 Result Comment: MANAGEMENT OF PATIENT CARE PER NURSING PROTOCOL Performed By: #### L501.080 #### [facility] Point of Care [address] [place] [address] BEDSIDE GLUCOSE Collected: 05/24/2018 Status: F Source: RUDY 12:10 PM [facility] REPOSITORY TYPE CODE TESTS RESULT OUT OF REFERENCE UNITS RANGE LAB L501.080 70-110 mg/dL High BEDSIDE GLU 185 Result Comment: MANAGEMENT OF PATIENT CARE PER NURSING PROTOCOL Performed By: #### L501.080 #### [facility] Point of Care [address] [place] [address] BEDSIDE GLUCOSE Collected: 05/24/2018 Status: F Source: ELS[place] 9:54 AM [facility] REPOSITORY TYPE CODE TESTS RESULT OUT OF REFERENCE UNITS RANGE LAB L501.080 70-110 mg/dL High BEDSIDE GLU 229 Result Comment: MANAGEMENT OF PATIENT CARE PER NURSING PROTOCOL Performed By: #### L501.080 #### [facility] Point of Care [address] [place] [address] BEDSIDE GLUCOSE Collected: 05/20/2018 Status: F Source: RUDY 9:40 AM [facility] REPOSITORY TYPE CODE TESTS RESULT OUT OF REFERENCE UNITS RANGE LAB L501.080 70-110 mg/dL High BEDSIDE GLU 211 Result Comment: MANAGEMENT OF PATIENT CARE PER NURSING PROTOCOL Performed By: #### L501.080 #### [facility] Point of Care [address] [place] [address] OFFICE VISIT (INTERNAL Observed: 05/19/2018 Status: [place] Source: [facility]) 9:13 PM HOSPITALS REPOSITORY Chief Complaint here for dm followuip History of Present Illness insur. no longer covering jardi and trulic... is off it , he incr insulin some to compensate ..those meds ..were dr. reese rx s .. no replct. at this time he is off.. these meds.. sees dr. reese next week no fver vision stable... eye appt. last week here in w/ chair fbs 115 , 200 lunch 106, 129 pm 152 hs 149 , 104 no fver or chest pains still waiting on stump to heal so he can get left prosthesis Review of Systems Constitutional: no fever and not feeling poorly. ENT: no sore throat and no hoarseness. Cardiovascular: no chest pain and no palpitations. Gastrointestinal: no abdominal pain and no nausea. Musculoskeletal: limb pain. Neurological: no headache and no dizziness. Active Problems Coronary atherosclerosis (414.00) (I25.10) Diabetes mellitus type 2, uncontrolled (250.02) (E11.65) HTN (hypertension) (401.9) (I10) Low testosterone (790.99) (R79.89) Social History Former smoker (V15.82) (Z87.891) quit smoking in august 2013 No alcohol use Single Allergies No Known Drug Allergies Recorded By: Diana Pond; 07/06/2013 9:31:07 AM Current Meds Clopidogrel Bisulfate 75 MG Oral Tablet; TAKE 1 TABLET DAILY; Therapy: 22Mar2017 to (Evaluate:26Mar2019) Requested for: 31Mar2018; Last Rx:[id number] Ordered Rx By: Sergo Victor; Dispense: 90 Days ; #:90 Tablet; Refill: 3;For: Coronary atherosclerosis; SHASHA = N; Verified Transmission to [place], [place]; Last Updated By: Miguelangel [employer]; 03/31/2018 5:42:25 PM Accu-Chek Loretta Plus In Vitro Strip; USE 4 TIMES A DAY; Therapy: 05Nov2014 to (Last Rx:[id number]) Requested for: [id number] Ordered Rx By: Sergo Victor; Dispense: 0 Days ; #:4 X 100 Strip Box; Refill: 3;For: Diabetes mellitus type 2, uncontrolled; SHASHA = N; Verified Transmission to [address]; [facility] to Pharmacy: e 11.65 on insulin; Last Updated By: Miguelangel [employer]; 01/17/2018 7:45:29 PM Accu-Chek Loretta Plus w/Device Kit; USE DIRECTED; Therapy: 05Nov2014 to (Last Rx:05Nov2014) Requested for: 05Nov2014 Ordered Rx By: Sergo Victor; Dispense: 0 Days ; #:1 Kit; Refill: 0;For: Diabetes mellitus type 2, uncontrolled; SHASHA = N; Verified Transmission to [facility] [address]; Msg to Pharmacy: dx 250.02 on insulin Accu-Chek Multiclix Lancets; Uses 4 daily; Therapy: 30Mar2013 to (Last Rx:13Jan2018) Requested for: 13Jan2018 Ordered Rx By: Sergo Victor; Dispense: 0 Days ; #:4 X 102 Miscellaneous Box; Refill: 3;For: Diabetes mellitus type 2, uncontrolled; SHASHA = N; Verified Transmission to [facility]; Msg to Pharmacy: dx e11.65 on insulin Accu-Chek Softclix Lancets; use 4 times a day to check sugar; Therapy: 18Jan2017 to (Last Rx:17Jan2018) Requested for: 17Jan2018; Status: ACTIVE - Transmit to Pharmacy - Failed Ordered Rx By: Sergo Victor; Dispense: 0 Days ; #:4 X 100 Miscellaneous Box; Refill: 3;For: Diabetes mellitus type 2, uncontrolled; SHASHA = N; Failed Transmission to [address]; Msg to Pharmacy: dx e11.65 on insulin; Last Updated By: Via [employer]; 01/17/2018 8:24:13 PM BD Pen Needle Mini U/F 31G X 5 MM; use 3 daily; Therapy: 18Jan2017 to (Last Rx:18Jan2017) Requested for: 18Jan2017 Ordered Rx By: Sergo Victor; Dispense: 0 Days ; #:3 X 100 Miscellaneous Box; Refill: 3;For: Diabetes mellitus type 2, uncontrolled; SHASHA = N; Verified Transmission to [facility] [address] [place], [place]; Last Updated By: [employer]; 01/18/2017 11:36:07 AM BD Pen Needle Short U/F 31G X 8 MM; uses 6 daily; Therapy: 24Aug2017 to (Last Rx:20Apr2018) Requested for: 20Apr2018 Ordered Rx By: Sergo Victor; Dispense: 0 Days ; #:6 X 100 Unit Box; Refill: 3;For: Diabetes mellitus type 2, uncontrolled; SHASHA = N; Verified Transmission to [address]; Msg to Pharmacy: E11.65 on insulin Gabapentin 600 MG Oral Tablet; TAKE ONE TABLET BY MOUTH EVERY DAY; Therapy: 08Mar2017 to (Evaluate:30Dec2018) Requested for: 04Jan2018; Last Rx:[id number] Ordered Rx By: Sergo Victor; Dispense: 90 Days ; #:90 TAB; Refill: 3;For: Diabetes mellitus type 2, uncontrolled; SHASHA = N; Verified Transmission to [address]; Last Updated By: [employer]; 01/04/2018 2:26:30 PM Gabapentin 800 MG Oral Tablet; TAKE TWO TABLETS BY MOUTH EVERY NIGHT AT BEDTIME; Therapy: 18Jan2017 to (Evaluate:30Dec2018) Requested for: 04Jan2018; Last Rx:[id number] Ordered Rx By: Sergo Victor; Dispense: 90 Days ; #:180 TAB; Refill: 3;For: Diabetes mellitus type 2, uncontrolled; SHASHA = N; Verified Transmission to [address]; Last Updated By: [employer]; 01/04/2018 2:26:31 PM HumuLIN R U-500 KwikPen 500 UNIT/ML Subcutaneous Solution Pen-injector; inject 160 units in the am, 110 units at lunch and 110 units pre evening meal; Therapy: 18Jan2017 to (Evaluate:02Oct2018) Requested for: 05Apr2018; Last Rx:05Apr2018 Ordered Rx By: Sergo Victor; Dispense: 90 Days ; #:24 X 3 ML Pen; Refill: 1;For: Diabetes mellitus type 2, uncontrolled; SHASHA = N; Verified Transmission to [place], [place]; Last Updated By: [employer]; 05/19/2018 5:45:39 PM NovoLOG FlexPen 100 UNIT/ML Subcutaneous Solution Pen-injector; INJECT 45 UNIT Daily for correction of elevated pre-meal glucose levels; Therapy: 05May2018 to (Last Rx:05May2018) Requested for: 05May2018 Ordered Rx By: Sergo Victor; Dispense: 0 Days ; #:1 X 5 x 3 ML Pen; Refill: 5;For: Diabetes mellitus type 2, uncontrolled; SHASHA = N; Verified Transmission to [place], [place]; Last Updated By: Edenilson Hua; 05/05/2018 6:18:09 PM NovoLOG FlexPen 100 UNIT/ML Subcutaneous Solution Pen-injector; INJECT 60 UNIT Daily; Therapy: 89Fwa4971 to (Last Rx:[id number]) Requested for: [id number] Ordered Rx By: Sergo Victor; Dispense: 0 Days ; #:2 X 3 ML Pen (5 Pens); Refill: 5;For: Diabetes mellitus type 2, uncontrolled; SHASHA = N; Verified Transmission to [address]; Last Upda rebeka By: Edenilson Meade; 08/02/2017 10:08:38 AM TRUEplus Pen [place] 31G X 8 MM; USE THREE DAILY DIRECTED; Therapy: 92Qgr6158 to (Evaluate:28Sep2018) Requested for: 03Oct2017; Last Rx:03Oct2017 Ordered Rx By: Sergo Victor; Dispense: 90 Days ; #:300 EA; Refill: 3;For: Diabetes mellitus type 2, uncontrolled; SHASHA = N; Verified Transmission to [address]; Last Updated By: Edenilson Meade; 10/03/2017 8:04:51 PM Eliquis 2.5 MG Oral Tablet; TAKE ONE TABLET BY MOUTH TWICE DAILY; Therapy: 07Mar2015 to (Evaluate:03Jul2018) Requested for: 66Ems1722; Last Rx:[id number] Ordered Rx By: Sergo Victor; Dispense: 30 Days ; #:60 TAB; Refill: 5;For: Health Maintenance; SHASHA = N; Verified Transmission to [address]; Last Updated By: Edenilson Meade; 01/04/2018 2:25:12 PM Omeprazole 40 MG Oral Capsule Delayed Release; TAKE 1 CAPSULE Daily; Therapy: 80Lmf2470 to (Evaluate:31Joe3974) Requested for: 19Xzb4684; Last Rx:[id number] Ordered Rx By: Sergo Victor; Dispense: 90 Days ; #:90 Capsule Delayed Release; Refill: 3;For: Health Maintenance; SHASHA = N; Verified Transmission to [address]; Last Updated By: Edenilson Meade; 01/08/2018 1:14:35 PM Vitamin D (Ergocalciferol) 12041 UNIT Oral Capsule; TAKE ONE CAPSULE BY MOUTH ONCE A WEEK; Therapy: 07Apr2015 to (Evaluate:23Jun2018) Requested for: 31Mar2018; Last Rx:31Mar2018 Ordered Rx By: Sergo Victor; Dispense: 84 Days ; #:12 Capsule; Refill: 0;For: Health Maintenance; SHASHA = N; Verified Transmission to [place], [place]; Last Updated By: Miguelangel Meade[employer]; 03/31/2018 5:41:10 PM Bystolic 10 MG Oral Tablet; TAKE ONE TABLET BY MOUTH ONCE DAILY; Therapy: 78Rtk3508 to (Evaluate:81Twe4635) Requested for: 17Apq1218; Last Rx:[id number] Ordered Rx By: Sergo Victor; Dispense: 90 Days ; #:90 TAB; Refill: 3;For: HTN (hypertension); SHASHA = N; Verified Transmission to [address], ; Last Updated By: Edenilson Meade; 01/04/2018 2:25:08 PM Losartan Potassium 50 MG Oral Tablet; TAKE 1 TABLET DAILY; Therapy: 26Grm5469 to (Evaluate:05Upd1790) Requested for: 08Mar2017; Last Rx:08Mar2017 Ordered Rx By: Sergo Victor; Dispense: 90 Days ; #:90 Tablet; Refill: 3;For: HTN (hypertension); SHASHA = N; Verified Transmission to [address], [place]; Last Updated By: Maurizio Meade[employer]BS [employer] (P); 03/08/2017 3:16:43 PM Accu-Chek Softclix Lancet Dev KIT; Therapy: 11Nov2016 to Recorded Rx By: JUAN; Dispense: 30 Days ; #:1; Refill: 0; SHASHA = N; Record; Last Updated By: Sergo Victor; 08/02/2017 9:59:04 AM Atorvastatin Calcium 40 MG Oral Tablet; Therapy: 01Oct2017 to Recorded Rx By: KOBE; Dispense: 30 Days ; #:30; Refill: 0; SHASHA = N; Record; Last Updated By: Diana Pond; 11/05/2017 11:14:55 AM Baclofen 10 MG Oral Tablet; Therapy: 14Oct2017 to Recorded Rx By: KOBE; Dispense: 30 Days ; #:30; Refill: 0; SHASHA = N; Record; Last Updated By: Diana Pond; 11/05/2017 11:14:55 AM Brimonidine Tartrate 0.2 % Ophthalmic Solution; Therapy: 25Nov2014 to Recorded Dispense: 30 Days ; #:5; Refill: 0; SHASHA = N; Record; Last Updated By: Sergo Victor; 05/28/2015 10:31:19 AM Famotidine 40 MG Oral Tablet; Therapy: 01Oct2017 to Recorded Rx By: KOBE; Dispense: 30 Days ; #:30; Refill: 0; SHASHA = N; Record; Last Updated By: Diana Pond; 11/05/2017 11:14:55 AM Ferrex 150 150 MG Oral Capsule; TAKE ONE CAPSULE BY MOUTH ONCE DAILY; Therapy: 04Oct2017 to Recorded Rx By: Kobe; Dispense: 30 Days ; #:30; Refill: 0; SHASHA = N; Record; Last Updated By: Diana Pond; 11/05/2017 11:14:55 AM Fluorouracil 2 % External Solution; Therapy: 23Iml5059 to Recorded Rx By: SOLO; Dispense: 10 Days ; #:10; Refill: 0; SHASHA = N; Record; Last Updated By: Sergo Victor; 08/02/2017 9:59:04 AM Latanoprost 0.005 % Ophthalmic Solution; Therapy: 18Jun2015 to Recorded Dispense: 25 Days ; #:2; Refill: 0; SHASHA = N; Record; Last Updated By: Diana Pond; 03/26/2016 3:55:28 PM NovoFine Autocover 30G X 8 MM; Therapy: 11Nov2016 to Recorded Rx By: JUAN; Dispense: 28 Days ; #:100; Refill: 0; SHASHA = N; Record; Last Updated By: Sergo Victor; 08/02/2017 9:59:04 AM Santyl 250 UNIT/GM External Ointment; Therapy: 88Fov6988 to Recorded Rx By: VEDA; Dispense: 30 Days ; #:30; Refill: 0; SHASHA = N; Record; Last Updated By: Diana Pond; 02/11/2018 10:28:34 AM Timolol Maleate 0.5 % Ophthalmic Solution; Therapy: 57Ndj8922 to Recorded Rx By: ISMA; Dispense: 80 Days ; #:10; Refill: 0; SHASHA = N; Record; Last Updated By: Diana Pond; 02/11/2018 10:28:34 AM Vitals Vital Signs Recorded: 88Zpw5885 09:12AM Kbakzkrdpyy32.6 F Heart Wykd051 Dzpqsdqa267 Okxlqspxr27 O2 Rvmpoaflku10, RA Physical Exam in a w/ chair left bka r. leg wrapped no pallor calm cor rrr chest clear abd obese / soft Diagnoses/Problems Diabetes mellitus type 2, uncontrolled (250.02) (E11.65) Provider Impressions dm type 2 , ongoing insulin adjustment insulin resistance Patient Discussion/Summary get lab d c dr. reese incr am u500 to 180 followip 3 months other doses same. BEDSIDE GLUCOSE Collected: 05/18/2018 Status: F Source: [place] 11:42 AM [facility] REPOSITORY TYPE CODE TESTS RESULT OUT OF RANGE REFERENCE UNITS LAB L501.080 70-110 mg/dL Normal BEDSIDE GLU 106 Result Comment: MANAGEMENT OF PATIENT CARE PER NURSING PROTOCOL Performed By: #### L501.080 #### [facility] [address] [facility] [place] [address] BEDSIDE GLUCOSE Collected: 05/18/2018 Status: F Source: [place] 9:31 AM [facility] REPOSITORY TYPE CODE TESTS RESULT OUT OF REFERENCE UNITS RANGE LAB L501.080 70-110 mg/dL High BEDSIDE GLU 169 Result Comment: MANAGEMENT OF PATIENT CARE PER NURSING PROTOCOL Performed By: #### L501.080 #### [facility] [address] [place] [address] BEDSIDE GLUCOSE Collected: 05/17/2018 Status: F Source: [place] 12:09 PM [facility] REPOSITORY TYPE CODE TESTS RESULT OUT OF REFERENCE UNITS RANGE LAB L501.080 70-110 mg/dL High BEDSIDE GLU 178 Result Comment: MANAGEMENT OF PATIENT CARE PER NURSING PROTOCOL Performed By: #### L501.080 #### [facility] [address] [place] [address] BEDSIDE GLUCOSE Collected: 05/17/2018 Status: F Source: [place] 9:47 AM [facility] REPOSITORY TYPE CODE TESTS RESULT OUT OF REFERENCE UNITS RANGE LAB L501.080 70-110 mg/dL High BEDSIDE GLU 229 Result Comment: MANAGEMENT OF PATIENT CARE PER NURSING PROTOCOL Performed By: #### L501.080 #### [facility] [address] [place] [address] BEDSIDE GLUCOSE Collected: 05/16/2018 Status: F Source: [place] 12:48 PM [facility] REPOSITORY TYPE CODE TESTS RESULT OUT OF RANGE REFERENCE UNITS LAB L501.080 70-110 mg/dL Normal BEDSIDE GLU 92 Result Comment: MANAGEMENT OF PATIENT CARE PER NURSING PROTOCOL Performed By: #### L501.080 #### [facility] [address] [place] [address] BEDSIDE GLUCOSE Collected: 05/16/2018 Status: F Source: [place] 10:08 AM [facility] REPOSITORY TYPE CODE TESTS RESULT OUT OF REFERENCE UNITS RANGE LAB L501.080 70-110 mg/dL High BEDSIDE GLU 153 Result Comment: MANAGEMENT OF PATIENT CARE PER NURSING PROTOCOL Performed By: #### L501.080 #### [facility] [address] [place] [address] BEDSIDE GLUCOSE Collected: 05/13/2018 Status: F Source: [place] 11:48 AM [facility] REPOSITORY TYPE CODE TESTS RESULT OUT OF REFERENCE UNITS RANGE LAB L501.080 70-110 mg/dL High BEDSIDE GLU 133 Result Comment: MANAGEMENT OF PATIENT CARE PER NURSING PROTOCOL Performed By: #### L501.080 #### [facility] [address] [place] [address] BEDSIDE GLUCOSE Collected: 05/13/2018 Status: F Source: [place] 9:49 AM [facility] REPOSITORY TYPE CODE TESTS RESULT OUT OF REFERENCE UNITS RANGE LAB L501.080 70-110 mg/dL High BEDSIDE GLU 182 Result Comment: MANAGEMENT OF PATIENT CARE PER NURSING PROTOCOL Performed By: #### L501.080 #### [facility] [address] [place] [address] PROGRESS Observed: 05/12/2018 Status: COMPLETED Source: [place] 9:46 AM [facility] REPOSITORY HNO ID: [id number] Author: Lauren Andrews Service: (none) Author Type: Physician Type: Progress Notes Filed: 05/12/2018 9:48 AM Note Text: This is a 57 year old male diagnosed upon referral with Insulin dependent diabetes mellitus, PDR s/p Panretinal laser photocoagulation both eyes and h/o vitrectomy left eye. Visual acuity is 20/60 (-2) RE and 20/100 LE. IOP 19.5/16. Anterior segment exam is significant for Posterior chamber intraocular lens both eyes. Dilated fundus examination demonstrates diffuse Panretinal laser photocoagulation in both eyes, with small FVP/neovascularization superotemporal in the right eye and no evidence of neovascularization in the left eye. IOP remains elevated today in the left eye (even after adding timolol). OCT shows atrophy without fluid both eyes. I have confirmed and edited as necessary the relevant ophthalmic history, ROS, and the neuro exam findings as obtained by others. I have seen and examined this patient. I have discussed the case and the management of this patient's care with the Resident/Fellow, if applicable. I also have reviewed and agree with the assessment and plan as stated above and agree with all of its relevant components. Lauren Andrews MD February 10, 2018 9:10 AM BEDSIDE GLUCOSE Collected: 05/11/2018 Status: F Source: [place] 11:25 AM [facility] REPOSITORY TYPE CODE TESTS RESULT OUT OF REFERENCE UNITS RANGE LAB L501.080 70-110 mg/dL High BEDSIDE GLU 136 Result Comment: MANAGEMENT OF PATIENT CARE PER NURSING PROTOCOL Performed By: #### L501.080 #### [facility] [address] [place] [address] BEDSIDE GLUCOSE Collected: 05/11/2018 Status: F Source: [place] 9:23 AM [facility] REPOSITORY TYPE CODE TESTS RESULT OUT OF REFERENCE UNITS RANGE LAB L501.080 70-110 mg/dL High BEDSIDE GLU 192 Result Comment: MANAGEMENT OF PATIENT CARE PER NURSING PROTOCOL Performed By: #### L501.080 #### [facility] [address] [place] [address] BEDSIDE GLUCOSE Collected: 05/10/2018 Status: F Source: [place] 11:21 AM [facility] REPOSITORY TYPE CODE TESTS RESULT OUT OF REFERENCE UNITS RANGE LAB L501.080 70-110 mg/dL High BEDSIDE GLU 164 Result Comment: MANAGEMENT OF PATIENT CARE PER NURSING PROTOCOL Performed By: #### L501.080 #### [facility] [address] [place] [address] BEDSIDE GLUCOSE Collected: 05/10/2018 Status: F Source: [place] 9:19 AM [facility] REPOSITORY TYPE CODE TESTS RESULT OUT OF REFERENCE UNITS RANGE LAB L501.080 70-110 mg/dL High BEDSIDE GLU 237 Result Comment: MANAGEMENT OF PATIENT CARE PER NURSING PROTOCOL Performed By: #### L501.080 #### [facility] [address] [place] [address] BEDSIDE GLUCOSE Collected: 05/09/2018 Status: F Source: [place] 11:45 AM [facility] REPOSITORY TYPE CODE TESTS RESULT OUT OF REFERENCE UNITS RANGE LAB L501.080 70-110 mg/dL High BEDSIDE GLU 114 Result Comment: MANAGEMENT OF PATIENT CARE PER NURSING PROTOCOL Performed By: #### L501.080 #### [facility] [address] [place] [address] BEDSIDE GLUCOSE Collected: 05/09/2018 Status: F Source: [place] 9:43 AM [facility] REPOSITORY TYPE CODE TESTS RESULT OUT OF REFERENCE UNITS RANGE LAB L501.080 70-110 mg/dL High BEDSIDE GLU 149 Result Comment: MANAGEMENT OF PATIENT CARE PER NURSING PROTOCOL Performed By: #### L501.080 #### [facility] [address] [place] [address] BEDSIDE GLUCOSE Collected: 05/05/2018 Status: F Source: [place] 12:02 PM [facility] REPOSITORY TYPE CODE TESTS RESULT OUT OF REFERENCE UNITS RANGE LAB L501.080 70-110 mg/dL High BEDSIDE GLU 189 Result Comment: MANAGEMENT OF PATIENT CARE PER NURSING PROTOCOL Performed By: #### L501.080 #### [facility] [address] [place] [address] BEDSIDE GLUCOSE Collected: 05/05/2018 Status: F Source: [place] 9:45 AM [facility] REPOSITORY TYPE CODE TESTS RESULT OUT OF REFERENCE UNITS RANGE LAB L501.080 70-110 mg/dL High BEDSIDE GLU 256 Result Comment: MANAGEMENT OF PATIENT CARE PER NURSING PROTOCOL Performed By: #### L501.080 #### [facility] [address] [place] [address] BEDSIDE GLUCOSE Collected: 05/04/2018 Status: F Source: [place] 9:36 AM [facility] REPOSITORY TYPE CODE TESTS RESULT OUT OF REFERENCE UNITS RANGE LAB L501.080 70-110 mg/dL High BEDSIDE GLU 297 Result Comment: MANAGEMENT OF PATIENT CARE PER NURSING PROTOCOL Performed By: #### L501.080 #### [facility] [address] [place] [address] BEDSIDE GLUCOSE Collected: 05/04/2018 Status: F Source: [place] 9:28 AM [facility] REPOSITORY TYPE CODE TESTS RESULT OUT OF REFERENCE UNITS RANGE LAB L501.080 70-110 mg/dL High BEDSIDE GLU 282 Result Comment: MANAGEMENT OF PATIENT CARE PER NURSING PROTOCOL Performed By: #### L501.080 #### [facility] [address] [place] [address] BEDSIDE GLUCOSE Collected: 05/03/2018 Status: F Source: [place] 11:49 AM [facility] REPOSITORY TYPE CODE TESTS RESULT OUT OF REFERENCE UNITS RANGE LAB L501.080 70-110 mg/dL High BEDSIDE GLU 144 Result Comment: MANAGEMENT OF PATIENT CARE PER NURSING PROTOCOL Performed By: #### L501.080 #### [facility] [address] [place] [address] BEDSIDE GLUCOSE Collected: 05/03/2018 Status: F Source: [place] 9:39 AM [facility] REPOSITORY TYPE CODE TESTS RESULT OUT OF REFERENCE UNITS RANGE LAB L501.080 70-110 mg/dL High BEDSIDE GLU 190 Result Comment: MANAGEMENT OF PATIENT CARE PER NURSING PROTOCOL Performed By: #### L501.080 #### [place] [facility] Point of Care [address] [place] [address] PROGRESS Observed: 05/02/2018 Status: COMPLETED Source: [place] 1:27 PM [facility] [place] REPOSITORY HNO ID: [id number] Author: Donna Delaney RN, BSN Service: (none) Author Type: (none) Type: Progress Notes Filed: 05/02/2018 1:29 PM Note Text: PROCEDURE FOLLOW UP PATIENT ID CONFIRMED: YES PATIENT ID VERIFIED BY: RADHA Valdez RN PAIN ASSESSMENT: Is the patient having any pain? No 0 on a scale of 0 to 10 CLINICIAN: Donna Delaney RN, BSN PATIENT RETURNS FOR: wound check PHOTO TAKEN: Yes PATIENT IS S/P: MOHS surgery FOLLOW UP DIAGNOSIS: Basal Cell Carcinoma x2 Pathology results: NONE DATE OF PROCEDURE: 03/25/2018 SITE LOCATION: left temporal scalp and right vertex WOUND MANAGEMENT: Heal by secondary intention/purse string. Both wounds are fully granulated and beginning to re-epithelize. No redness. Scant drainage. No s/s of infection. Patient states a nurse has been changing his dressings every Wednesday and Wednesday. Advised patient to continue dressing changes as such. Letter written with detailed wound care instructions and printed for patient to bring to facility. FOLLOW UP: 6-8 weeks for wound check to ensure wounds are fully healed. RADHA Valdez RN CNNURSE Observed: 05/02/2018 Status: COMPLETED Source: [place] 1:20 PM [facility] REPOSITORY Nurse Visit (DEXTER) DEL BARRIOS ([id number]) 1960 M [facility] Date Time Provider Department 05/02/18 1:20 PM DERM SURGERY NURSE DEXTER During your visit today, we recorded the following information about you: RADHA Valdez RN 05/02/2018 1:29 PM Signed PROCEDURE FOLLOW UP PATIENT ID CONFIRMED: YES PATIENT ID VERIFIED BY: RADHA Valdez RN PAIN ASSESSMENT: Is the patient having any pain? No 0 on a scale of 0 to 10 CLINICIAN: RADHA Valdez RN PATIENT RETURNS FOR: wound check PHOTO TAKEN: Yes PATIENT IS S/P: MOHS surgery FOLLOW UP DIAGNOSIS: Basal Cell Carcinoma x2 Pathology results: NONE DATE OF PROCEDURE: 03/25/2018 SITE LOCATION: left temporal scalp and right vertex WOUND MANAGEMENT: Heal by secondary intention/purse string. Both wounds are fully granulated and beginning to re-epithelize. No redness. Scant drainage. No s/s of infection. Patient states a nurse has been changing his dressings every Deric and Wednesday. Advised patient to continue dressing changes as such. Letter written with detailed wound care instructions and printed for patient to bring to facility. FOLLOW UP: 6-8 weeks for wound check to ensure wounds are fully healed. Donna Delaney RN, BSN Referring Provider: SELF [200] Allergies As of Date: 05/02/2018 Noted Allergy Reaction CLAUDE INHIBITORS 01/28/2014 14 - Other: See Comments Comments: Angioedema. BEES 07/24/2013 2 - Rash FLAGYL (METRONIDAZOLE) 01/16/2016 14 - Other: See Comments Comments: Gets sick Date Reviewed: 05/02/2018 Reviewed by: Donna Delaney RN, BSN - Fully Assessed Reason for Visit: Wound Check [133] Primary Visit Diagnosis:Basal cell carcinoma (BCC) of scalp [C44.41] Prescriptions as of 05/02/2018 Sig: HUMALOG KWIKPEN (U-100) INSUL* Inject 60 Units subcutaneousl* GENTAMICIN 0.1 % TOPICAL OINT* Apply to the wound on the sca* BRIMONIDINE 0.2 % EYE DROPS Use 1 Drop in both eyes twice* LATANOPROST 0.005 % EYE DROPS Use 1 Drop in both eyes daily* TIMOLOL MALEATE 0.5 % EYE FAITH* Use 1 Drop in both eyes every* INSULIN REGULAR HUMAN U-500C* 145 units with breakfast, 95 * CLOPIDOGREL 75 MG TABLET Take 75 mg by mouth once narcisa* FLUOROURACIL 2 % TOPICAL SOLU* Applied to the affected areas* GABAPENTIN 800 MG TABLET Take 1 tablet by mouth daily * NEBIVOLOL 10 MG TABLET Take 1 tablet by mouth once d* FERROUS SULFATE 325 MG (65 MG* Take 1 tablet by mouth twice * Patient not taking: Reported on 04/08/2018 LOSARTAN 50 MG TABLET Take 1 tablet by mouth once d* ATORVASTATIN 10 MG TABLET Take 10 mg by mouth once narcisa* VITAMIN D2 ORAL Take 50,000 Units by mouth On* MYLANTA ORAL Take 15 mL by mouth every 6 h* FLUTICASONE 50 MCG/ACTUATION * Use 1 [place] in each nostril o* GABAPENTIN 600 MG TABLET Take 600 mg by mouth daily wi* ASCORBIC ACID (VITAMIN C) 500* Take 500 mg by mouth once minnie* APIXABAN 2.5 MG TABLET Take 2.5 mg by mouth twice da* MAGNESIUM HYDROXIDE 400 MG/5 * Take 30 mL by mouth once narcisa* MULTIVITAMIN TABLET Take 1 tablet by mouth once d* ACETAMINOPHEN 325 MG TABLET Take 650 mg by mouth every 4 * OMEPRAZOLE 20 MG TABLET,DELAY* Take 40 mg by mouth once narcisa* ZINC Take 220 mg by mouth once minnie* Problem List As Of Date 05/02/2018 Noted Resolved Hypertension [I10] INVALID FOR* Priority: E Diabetic neuropathy ([facility]) [E11.40] INVALID FOR* GERD (Gastroesophageal Reflux Disease) [K21.9] More... Hyperlipidemia [E78.5] Priority: F More... Proteinuria [R80.9] More... Pressure ulcer, other site(707.09) ([facility]) [L89.*INVALID FOR*01/28/2014 CKD III [N18.3] INVALID FOR* Priority: D More... Diabetic ulcer of right foot ([facility]) [E11.621, L9*INVALID FOR*01/28/2014 Cmfez-pz-nayyyig kidney injury ([facility]) [N17.9, N1*INVALID FOR*01/31/2014 Chronic anticoagulation [Z79.01] INVALID FOR* More... 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 Ulcer of ankle ([facility]) [L97.309] INVALID FOR* Peripheral vascular disease, unspecified ([facility]) *INVALID FOR* S/P BKA (below knee amputation) ([facility]) [Z89.519] INVALID FOR* Lymphedema [I89.0] INVALID FOR* Hearing loss [H91.90] INVALID FOR* Rhinitis [J31.0] INVALID FOR* Chronic serous otitis media [H65.20] INVALID FOR*05/28/2017 Chronic otitis media of right ear [H66.91] INVALID FOR*05/28/2017 Deep vein thrombosis [I82.409] INVALID FOR* Priority: B More... Morbid obesity ([facility]) [E66.01] INVALID FOR* Priority: G Open wound of right foot [S91.301A] INVALID FOR* Borderline glaucoma with ocular hypertension [H*INVALID FOR* Ulcer of toe of right foot ([facility]) [L97.519] INVALID FOR* Bilateral chronic serous otitis media [H65.23] INVALID FOR* Wound of left leg [S81.802A] INVALID FOR* Cellulitis [L03.90] INVALID FOR*01/21/2017 Diabetes mellitus (HCC) [E11.9] INVALID FOR* Encounter Status:Closed by JESSICA RN, BSN, DONNA on 05/02/18 CNCO Observed: 05/02/2018 Status: COMPLETED Source: HOPE 12:00 AM [facility] REPOSITORY Letter Text Dr. Marilyn Reyes [facility] [address] [address] May 02, 2018 To Whom It May Concern, Please adhere to the following wound care instructions for the two spots on Mr. Barrios's scalp: Every Wednesday and Wednesday, please cleanse wound with gentle soapy water, pat dry, apply thin layer of Gentamicin ointment, and cover with a simple bandage. Mr. Barrios will return to the office in 6-8 weeks to check on how wounds are healing. Thank you, Dr. Marilyn Reyes BEDSIDE GLUCOSE Collected: 04/27/2018 Status: F Source: RUDY 11:40 AM [facility] REPOSITORY TYPE CODE TESTS RESULT OUT OF REFERENCE UNITS RANGE LAB L501.080 70-110 mg/dL High BEDSIDE GLU 123 Result Comment: MANAGEMENT OF PATIENT CARE PER NURSING PROTOCOL Performed By: #### L501.080 #### [facility] Point [facility] [address] [place] [address] BEDSIDE GLUCOSE Collected: 04/27/2018 Status: F Source: RUDY 9:27 AM [facility] REPOSITORY TYPE CODE TESTS RESULT OUT OF REFERENCE UNITS RANGE LAB L501.080 70-110 mg/dL High BEDSIDE GLU 158 Result Comment: MANAGEMENT OF PATIENT CARE PER NURSING PROTOCOL Performed By: #### L501.080 #### [facility] Point of Care [address] [place] [address] BEDSIDE GLUCOSE Collected: 04/26/2018 Status: F Source: RUDY 12:06 PM [facility] REPOSITORY TYPE CODE TESTS RESULT OUT OF REFERENCE UNITS RANGE LAB L501.080 70-110 mg/dL High BEDSIDE GLU 154 Result Comment: MANAGEMENT OF PATIENT CARE PER NURSING PROTOCOL Performed By: #### L501.080 #### [facility] Point [facility] [address] [place] [address] BEDSIDE GLUCOSE Collected: 04/26/2018 Status: F Source: RUDY 10:06 AM [facility] REPOSITORY TYPE CODE TESTS RESULT OUT OF REFERENCE UNITS RANGE LAB L501.080 70-110 mg/dL High BEDSIDE GLU 209 Result Comment: MANAGEMENT OF PATIENT CARE PER NURSING PROTOCOL Performed By: #### L501.080 #### [facility] Point [facility] [address] [place] [address] BEDSIDE GLUCOSE Collected: 04/25/2018 Status: F Source: RUDY 11:46 AM [facility] REPOSITORY TYPE CODE TESTS RESULT OUT OF REFERENCE UNITS RANGE LAB L501.080 70-110 mg/dL High BEDSIDE GLU 187 Result Comment: MANAGEMENT OF PATIENT CARE PER NURSING PROTOCOL Performed By: #### L501.080 #### [facility] Point [facility] [address] [place] [address] BEDSIDE GLUCOSE Collected: 04/25/2018 Status: F Source: RUDY 9:40 AM [facility] REPOSITORY TYPE CODE TESTS RESULT OUT OF REFERENCE UNITS RANGE LAB L501.080 70-110 mg/dL High BEDSIDE GLU 217 Result Comment: MANAGEMENT OF PATIENT CARE PER NURSING PROTOCOL Performed By: #### L501.080 #### [facility] [address] [place] [address] BEDSIDE GLUCOSE Collected: 04/20/2018 Status: F Source: RUDY 12:02 PM [facility] REPOSITORY TYPE CODE TESTS RESULT OUT OF REFERENCE UNITS RANGE LAB L501.080 70-110 mg/dL High BEDSIDE GLU 215 Result Comment: MANAGEMENT OF PATIENT CARE PER NURSING PROTOCOL Performed By: #### L501.080 #### [facility] Point [facility] [address] [place] [address] BEDSIDE GLUCOSE Collected: 04/19/2018 Status: F Source: RUDY 11:57 AM [facility] REPOSITORY TYPE CODE TESTS RESULT OUT OF REFERENCE UNITS RANGE LAB L501.080 70-110 mg/dL High BEDSIDE GLU 176 Result Comment: MANAGEMENT OF PATIENT CARE PER NURSING PROTOCOL Performed By: #### L501.080 #### [facility] [address] [place] [address] BEDSIDE GLUCOSE Collected: 04/19/2018 Status: F Source: RUDY 11:57 AM [facility] REPOSITORY TYPE CODE TESTS RESULT OUT OF REFERENCE UNITS RANGE LAB L501.080 70-110 mg/dL High BEDSIDE GLU 176 Result Comment: MANAGEMENT OF PATIENT CARE PER NURSING PROTOCOL Performed By: #### L501.080 #### [facility] [address] [place] [address] BEDSIDE GLUCOSE Collected: 04/19/2018 Status: F Source: RUDY 9:50 AM [facility] REPOSITORY TYPE CODE TESTS RESULT OUT OF REFERENCE UNITS RANGE LAB L501.080 70-110 mg/dL High BEDSIDE GLU 237 Result Comment: MANAGEMENT OF PATIENT CARE PER NURSING PROTOCOL Performed By: #### L501.080 #### [facility] [address] [place] [address] BEDSIDE GLUCOSE Collected: 04/19/2018 Status: F Source: RUDY 9:50 AM [facility] REPOSITORY TYPE CODE TESTS RESULT OUT OF REFERENCE UNITS RANGE LAB L501.080 70-110 mg/dL High BEDSIDE GLU 237 Result Comment: MANAGEMENT OF PATIENT CARE PER NURSING PROTOCOL Performed By: #### L501.080 #### [facility] [address] [place] [address] BEDSIDE GLUCOSE Collected: 04/18/2018 Status: F Source: RUDY 12:09 PM [facility] REPOSITORY TYPE CODE TESTS RESULT OUT OF REFERENCE UNITS RANGE LAB L501.080 70-110 mg/dL High BEDSIDE GLU 128 Result Comment: MANAGEMENT OF PATIENT CARE PER NURSING PROTOCOL Performed By: #### L501.080 #### [facility] [address] [place] [address] BEDSIDE GLUCOSE Collected: 04/18/2018 Status: F Source: RUDY 12:09 PM [facility] REPOSITORY TYPE CODE TESTS RESULT OUT OF REFERENCE UNITS RANGE LAB L501.080 70-110 mg/dL High BEDSIDE GLU 128 Result Comment: MANAGEMENT OF PATIENT CARE PER NURSING PROTOCOL Performed By: #### L501.080 #### [facility] [address] [place] [address] BEDSIDE GLUCOSE Collected: 04/18/2018 Status: F Source: RUDY 9:54 AM [facility] REPOSITORY TYPE CODE TESTS RESULT OUT OF REFERENCE UNITS RANGE LAB L501.080 70-110 mg/dL High BEDSIDE GLU 123 Result Comment: MANAGEMENT OF PATIENT CARE PER NURSING PROTOCOL Performed By: #### L501.080 #### [facility] Point [facility] [address] [place], [place] [address] BEDSIDE GLUCOSE Collected: 04/18/2018 Status: F Source: RUDY 9:54 AM [facility] REPOSITORY TYPE CODE TESTS RESULT OUT OF REFERENCE UNITS RANGE LAB L501.080 70-110 mg/dL High BEDSIDE GLU 123 Result Comment: MANAGEMENT OF PATIENT CARE PER NURSING PROTOCOL Performed By: #### L501.080 #### [facility] [address] [place] [address] BEDSIDE GLUCOSE Collected: 04/15/2018 Status: F Source: RUDY 12:06 PM [facility] REPOSITORY TYPE CODE TESTS RESULT OUT OF RANGE REFERENCE UNITS LAB L501.080 70-110 mg/dL Normal BEDSIDE GLU 100 Result Comment: MANAGEMENT OF PATIENT CARE PER NURSING PROTOCOL Performed By: #### L501.080 #### [facility] [address] [place] [address] BEDSIDE GLUCOSE Collected: 04/15/2018 Status: F Source: RUDY 12:06 PM [facility] REPOSITORY TYPE CODE TESTS RESULT OUT OF RANGE REFERENCE UNITS LAB L501.080 70-110 mg/dL Normal BEDSIDE GLU 100 Result Comment: MANAGEMENT OF PATIENT CARE PER NURSING PROTOCOL Performed By: #### L501.080 #### [facility] [address] [place] [address] BEDSIDE GLUCOSE Collected: 04/15/2018 Status: F Source: RUDY 11:45 AM [facility] REPOSITORY TYPE CODE TESTS RESULT OUT OF RANGE REFERENCE UNITS LAB L501.080 70-110 mg/dL Normal BEDSIDE GLU 97 Result Comment: MANAGEMENT OF PATIENT CARE PER NURSING PROTOCOL Performed By: #### L501.080 #### [facility] [address] [place] [address] BEDSIDE GLUCOSE Collected: 04/15/2018 Status: F Source: ELSINORE 11:45 AM [facility] REPOSITORY TYPE CODE TESTS RESULT OUT OF RANGE REFERENCE UNITS LAB L501.080 70-110 mg/dL Normal BEDSIDE GLU 97 Result Comment: MANAGEMENT OF PATIENT CARE PER NURSING PROTOCOL Performed By: #### L501.080 #### [facility] [address] [place] [address] BEDSIDE GLUCOSE Collected: 04/15/2018 Status: F Source: ELSINORE 9:40 AM [facility] REPOSITORY TYPE CODE TESTS RESULT OUT OF REFERENCE UNITS RANGE LAB L501.080 70-110 mg/dL High BEDSIDE GLU 151 Result Comment: MANAGEMENT OF PATIENT CARE PER NURSING PROTOCOL Performed By: #### L501.080 #### [facility] [address] [place] [address] BEDSIDE GLUCOSE Collected: 04/15/2018 Status: F Source: ELSINORE 9:40 AM [facility] REPOSITORY TYPE CODE TESTS RESULT OUT OF REFERENCE UNITS RANGE LAB L501.080 70-110 mg/dL High BEDSIDE GLU 151 Result Comment: MANAGEMENT OF PATIENT CARE PER NURSING PROTOCOL Performed By: #### L501.080 #### [facility] [address] [place] [address] BEDSIDE GLUCOSE Collected: 04/14/2018 Status: F Source: RUDY 11:36 AM [facility] REPOSITORY TYPE CODE TESTS RESULT OUT OF REFERENCE UNITS RANGE LAB L501.080 70-110 mg/dL High BEDSIDE GLU 171 Result Comment: MANAGEMENT OF PATIENT CARE PER NURSING PROTOCOL Performed By: #### L501.080 #### [facility] [address] [place] [address] BEDSIDE GLUCOSE Collected: 04/14/2018 Status: F Source: RUDY 11:36 AM [facility] REPOSITORY TYPE CODE TESTS RESULT OUT OF REFERENCE UNITS RANGE LAB L501.080 70-110 mg/dL High BEDSIDE GLU 171 Result Comment: MANAGEMENT OF PATIENT CARE PER NURSING PROTOCOL Performed By: #### L501.080 #### [facility] [address] [place] [address] BEDSIDE GLUCOSE Collected: 04/14/2018 Status: F Source: ELSINORE 9:38 AM [facility] REPOSITORY TYPE CODE TESTS RESULT OUT OF REFERENCE UNITS RANGE LAB L501.080 70-110 mg/dL High BEDSIDE GLU 239 Result Comment: MANAGEMENT OF PATIENT CARE PER NURSING PROTOCOL Performed By: #### L501.080 #### [facility] [address] [place] [address] BEDSIDE GLUCOSE Collected: 04/14/2018 Status: F Source: RUDY 9:38 AM [facility] REPOSITORY TYPE CODE TESTS RESULT OUT OF REFERENCE UNITS RANGE LAB L501.080 70-110 mg/dL High BEDSIDE GLU 239 Result Comment: MANAGEMENT OF PATIENT CARE PER NURSING PROTOCOL Performed By: #### L501.080 #### [facility] [address] [place] [address] BEDSIDE GLUCOSE Collected: 04/13/2018 Status: F Source: RUDY 12:17 PM [facility] REPOSITORY TYPE CODE TESTS RESULT OUT OF REFERENCE UNITS RANGE LAB L501.080 70-110 mg/dL High BEDSIDE GLU 154 Result Comment: MANAGEMENT OF PATIENT CARE PER NURSING PROTOCOL Performed By: #### L501.080 #### [facility] [address] [place] [address] BEDSIDE GLUCOSE Collected: 04/13/2018 Status: F Source: RUDY 12:17 PM [facility] REPOSITORY TYPE CODE TESTS RESULT OUT OF REFERENCE UNITS RANGE LAB L501.080 70-110 mg/dL High BEDSIDE GLU 154 Result Comment: MANAGEMENT OF PATIENT CARE PER NURSING PROTOCOL Performed By: #### L501.080 #### [facility] [address] [place] [address] BEDSIDE GLUCOSE Collected: 04/13/2018 Status: F Source: RUDY 9:54 AM [facility] REPOSITORY TYPE CODE TESTS RESULT OUT OF REFERENCE UNITS RANGE LAB L501.080 70-110 mg/dL High BEDSIDE GLU 184 Result Comment: MANAGEMENT OF PATIENT CARE PER NURSING PROTOCOL Performed By: #### L501.080 #### [facility] [address] [place] [address] BEDSIDE GLUCOSE Collected: 04/13/2018 Status: F Source: ELSINORE 9:54 AM [facility] REPOSITORY TYPE CODE TESTS RESULT OUT OF REFERENCE UNITS RANGE LAB L501.080 70-110 mg/dL High BEDSIDE GLU 184 Result Comment: MANAGEMENT OF PATIENT CARE PER NURSING PROTOCOL Performed By: #### L501.080 #### [facility] [address] [place] [address] BEDSIDE GLUCOSE Collected: 04/12/2018 Status: F Source: RUDY 12:08 PM [facility] REPOSITORY TYPE CODE TESTS RESULT OUT OF REFERENCE UNITS RANGE LAB L501.080 70-110 mg/dL High BEDSIDE GLU 216 Result Comment: MANAGEMENT OF PATIENT CARE PER NURSING PROTOCOL Performed By: #### L501.080 #### [facility] [address] [place] [address] BEDSIDE GLUCOSE Collected: 04/12/2018 Status: F Source: RUDY 12:08 PM [facility] REPOSITORY TYPE CODE TESTS RESULT OUT OF REFERENCE UNITS RANGE LAB L501.080 70-110 mg/dL High BEDSIDE GLU 216 Result Comment: MANAGEMENT OF PATIENT CARE PER NURSING PROTOCOL Performed By: #### L501.080 #### [facility] [address] [place] [address] BEDSIDE GLUCOSE Collected: 04/12/2018 Status: F Source: RUDY 9:48 AM [facility] REPOSITORY TYPE CODE TESTS RESULT OUT OF REFERENCE UNITS RANGE LAB L501.080 70-110 mg/dL High BEDSIDE GLU 276 Result Comment: MANAGEMENT OF PATIENT CARE PER NURSING PROTOCOL Performed By: #### L501.080 #### [facility] [address] [place] [address] BEDSIDE GLUCOSE Collected: 04/12/2018 Status: F Source: RUDY 9:48 AM [facility] REPOSITORY TYPE CODE TESTS RESULT OUT OF REFERENCE UNITS RANGE LAB L501.080 70-110 mg/dL High BEDSIDE GLU 276 Result Comment: MANAGEMENT OF PATIENT CARE PER NURSING PROTOCOL Performed By: #### L501.080 #### [facility] [address] [place] [address] BEDSIDE GLUCOSE Collected: 04/11/2018 Status: F Source: RUDY 11:37 AM [facility] REPOSITORY TYPE CODE TESTS RESULT OUT OF REFERENCE UNITS RANGE LAB L501.080 70-110 mg/dL High BEDSIDE GLU 132 Result Comment: MANAGEMENT OF PATIENT CARE PER NURSING PROTOCOL Performed By: #### L501.080 #### [facility] [address] [place] [address] BEDSIDE GLUCOSE Collected: 04/11/2018 Status: F Source: RUDY 11:37 AM [facility] REPOSITORY TYPE CODE TESTS RESULT OUT OF REFERENCE UNITS RANGE LAB L501.080 70-110 mg/dL High BEDSIDE GLU 132 Result Comment: MANAGEMENT OF PATIENT CARE PER NURSING PROTOCOL Performed By: #### L501.080 #### [facility] [address] [place] [address] BEDSIDE GLUCOSE Collected: 04/11/2018 Status: F Source: RUDY 9:44 AM [facility] REPOSITORY TYPE CODE TESTS RESULT OUT OF REFERENCE UNITS RANGE LAB L501.080 70-110 mg/dL High BEDSIDE GLU 148 Result Comment: MANAGEMENT OF PATIENT CARE PER NURSING PROTOCOL Performed By: #### L501.080 #### [facility] [address] [place] [address] BEDSIDE GLUCOSE Collected: 04/11/2018 Status: F Source: RUDY 9:44 AM [facility] REPOS[facility] TYPE CODE TESTS RESULT OUT OF REFERENCE UNITS RANGE LAB L501.080 70-110 mg/dL High BEDSIDE GLU 148 Result Comment: MANAGEMENT OF PATIENT CARE PER NURSING PROTOCOL Performed By: #### L501.080 #### [facility] [address] [place] [address] PROGRESS Observed: 04/08/2018 Status: COMPLETED Source: HOPE 12:33 PM [facility] [place] REPOSITORY HNO ID: [id number] Author: Lauren Berger Service: (none) Author Type: Physician Type: Progress Notes Filed: 04/08/2018 12:58 PM Note Text: Tmax: OD: 24 (although higher 1d and 1 month post phaco) Pachy: 593, 597 OS: 25 (09/29/13) Lasers and Surgeries: OD: 11/29/13 CEIOL (Goshe) OS: 09/02/09 CEIOL/PPV/AFE/EL for TRD (Juliana / Johnna) Ocular Medication Intol and Non-efficacy: Cosopt: poorly tolerated due to burning 06/26/14 Current meds: timolol OU qam, brimonidine 0.2 BID OU, latanoprost OU qhs (added 06/2015) OHTN -No famhx glaucoma -RNFL OCT 09/2014 baseline (in setting of extensive PRP OU, TRD OS): diffuse thinning OU. -No glaucoma OU: RNFL is due to PDR and ischemia -IOP is fine by [facility]. He has very deep set eyes and a heavy prominent brow that makes accurate applanation very difficult -please note IOP has been high in retina clinic recently -RV in about 6 months - check IOP by [facility] and dilate OU IDDM w/ PDR -s/p PRP OU -sees Dr. Juliana Campos, Lauren Berger MD, have edited as necessary and confirmed the relevant ophthalmic history, ROS, and neuro exam findings as obtained by others. I have seen and examined Del Barrios. I also have reviewed, edited as necessary, and agree with the assessment and plan and all of its relevant components as stated above. I have discussed the case and the management of this patient's care with the Resident/Fellow, if applicable. BEDSIDE GLUCOSE Collected: 04/07/2018 Status: F Source: RUDY 12:31 PM [facility] REPOSITORY TYPE CODE TESTS RESULT OUT OF RANGE REFERENCE UNITS LAB L501.080 70-110 mg/dL Normal BEDSIDE GLU 98 Result Comment: MANAGEMENT OF PATIENT CARE PER NURSING PROTOCOL Performed By: #### L501.080 #### [facility] [address] [place] [address] BEDSIDE GLUCOSE Collected: 04/07/2018 Status: F Source: RUDY 12:31 PM [facility] REPOSITORY TYPE CODE TESTS RESULT OUT OF RANGE REFERENCE UNITS LAB L501.080 70-110 mg/dL Normal BEDSIDE GLU 98 Result Comment: MANAGEMENT OF PATIENT CARE PER NURSING PROTOCOL Performed By: #### L501.080 #### [facility] Point [facility] [address] [place] [address] BEDSIDE GLUCOSE Collected: 04/07/2018 Status: F Source: RUDY 10:27 AM [facility] REPOSITORY TYPE CODE TESTS RESULT OUT OF REFERENCE UNITS RANGE LAB L501.080 70-110 mg/dL High BEDSIDE GLU 124 Result Comment: MANAGEMENT OF PATIENT CARE PER NURSING PROTOCOL Performed By: #### L501.080 #### [facility] [address] [place] [address] BEDSIDE GLUCOSE Collected: 04/07/2018 Status: F Source: RUDY 10:27 AM [facility] REPOSITORY TYPE CODE TESTS RESULT OUT OF REFERENCE UNITS RANGE LAB L501.080 70-110 mg/dL High BEDSIDE GLU 124 Result Comment: MANAGEMENT OF PATIENT CARE PER NURSING PROTOCOL Performed By: #### L501.080 #### [facility] [address] [place] [address] BEDSIDE GLUCOSE Collected: 04/06/2018 Status: F Source: RUDY 11:40 AM [facility] REPOSITORY TYPE CODE TESTS RESULT OUT OF REFERENCE UNITS RANGE LAB L501.080 70-110 mg/dL High BEDSIDE GLU 148 Result Comment: MANAGEMENT OF PATIENT CARE PER NURSING PROTOCOL Performed By: #### L501.080 #### [facility] [address] [place] [address] BEDSIDE GLUCOSE Collected: 04/06/2018 Status: F Source: RUDY 9:12 AM [facility] REPOSITORY TYPE CODE TESTS RESULT OUT OF REFERENCE UNITS RANGE LAB L501.080 70-110 mg/dL High BEDSIDE GLU 198 Result Comment: MANAGEMENT OF PATIENT CARE PER NURSING PROTOCOL Performed By: #### L501.080 #### [facility] [address] [place] [address] BEDSIDE GLUCOSE Collected: 04/05/2018 Status: F Source: RUDY 11:46 AM [facility] REPOSITORY TYPE CODE TESTS RESULT OUT OF RANGE REFERENCE UNITS LAB L501.080 70-110 mg/dL Normal BEDSIDE GLU 103 Result Comment: MANAGEMENT OF PATIENT CARE PER NURSING PROTOCOL Performed By: #### L501.080 #### [facility] [address] [place] [address] BEDSIDE GLUCOSE Collected: 04/05/2018 Status: F Source: RUDY 9:30 AM [facility] REPOSITORY TYPE CODE TESTS RESULT OUT OF REFERENCE UNITS RANGE LAB L501.080 70-110 mg/dL High BEDSIDE GLU 140 Result Comment: MANAGEMENT OF PATIENT CARE PER NURSING PROTOCOL Performed By: #### L501.080 #### [facility] [address] [place] [address] BEDSIDE GLUCOSE Collected: 04/04/2018 Status: F Source: RUDY 12:22 PM [facility] REPOSITORY TYPE CODE TESTS RESULT OUT OF REFERENCE UNITS RANGE LAB L501.080 70-110 mg/dL High BEDSIDE GLU 136 Result Comment: MANAGEMENT OF PATIENT CARE PER NURSING PROTOCOL Performed By: #### L501.080 #### [facility] [address] [place] [address] BEDSIDE GLUCOSE Collected: 04/04/2018 Status: F Source: RUDY 10:18 AM [facility] REPOSITORY TYPE CODE TESTS RESULT OUT OF REFERENCE UNITS RANGE LAB L501.080 70-110 mg/dL High BEDSIDE GLU 116 Result Comment: MANAGEMENT OF PATIENT CARE PER NURSING PROTOCOL Performed By: #### L501.080 #### [facility] [address] [place] [address] BEDSIDE GLUCOSE Collected: 04/04/2018 Status: F Source: RUDY 9:52 AM [facility] REPOSITORY TYPE CODE TESTS RESULT OUT OF REFERENCE UNITS RANGE LAB L501.080 70-110 mg/dL High BEDSIDE GLU 118 Result Comment: MANAGEMENT OF PATIENT CARE PER NURSING PROTOCOL Performed By: #### L501.080 #### [facility] [address] [place] [address] BEDSIDE GLUCOSE Collected: 04/01/2018 Status: F Source: RUDY 11:53 AM [facility] REPOSITORY TYPE CODE TESTS RESULT OUT OF REFERENCE UNITS RANGE LAB L501.080 70-110 mg/dL High BEDSIDE GLU 200 Result Comment: MANAGEMENT OF PATIENT CARE PER NURSING PROTOCOL Performed By: #### L501.080 #### [facility] [address] [place] [address] BEDSIDE GLUCOSE Collected: 04/01/2018 Status: F Source: RUDY 9:42 AM [facility] REPOSITORY TYPE CODE TESTS RESULT OUT OF REFERENCE UNITS RANGE LAB L501.080 70-110 mg/dL High BEDSIDE GLU 254 Result Comment: MANAGEMENT OF PATIENT CARE PER NURSING PROTOCOL Performed By: #### L501.080 #### [facility] [address] [place] [address] BEDSIDE GLUCOSE Collected: 03/31/2018 Status: F Source: RUDY 12:16 PM [facility] REPOSITORY TYPE CODE TESTS RESULT OUT OF REFERENCE UNITS RANGE LAB L501.080 70-110 mg/dL High BEDSIDE GLU 142 Result Comment: MANAGEMENT OF PATIENT CARE PER NURSING PROTOCOL Performed By: #### L501.080 #### [facility] [address] [place] [address] BEDSIDE GLUCOSE Collected: 03/31/2018 Status: F Source: RUDY 11:42 AM [facility] REPOSITORY TYPE CODE TESTS RESULT OUT OF RANGE REFERENCE UNITS LAB L501.080 70-110 mg/dL Normal BEDSIDE GLU 82 Result Comment: MANAGEMENT OF PATIENT CARE PER NURSING PROTOCOL Performed By: #### L501.080 #### [facility] [address] [place] [address] BEDSIDE GLUCOSE Collected: 03/31/2018 Status: F Source: RUDY 9:34 AM [facility] REPOSITORY TYPE CODE TESTS RESULT OUT OF REFERENCE UNITS RANGE LAB L501.080 70-110 mg/dL High BEDSIDE GLU 143 Result Comment: MANAGEMENT OF PATIENT CARE PER NURSING PROTOCOL Performed By: #### L501.080 #### [facility] [address] [place] [address] CBC W/DIFF, AUTOMATED Collected: 03/30/2018 Status: F Source: RUDY 3:36 PM [facility] REPOSITORY TYPE CODE TESTS RESULT OUT OF RANGE REFERENCE UNITS LAB L100.1000 4.4-11.0 K/mm3 Normal WBC 8.1 LAB L100.1200 4.6-6.2 M/mm3 Low RBC 3.95 LAB L100.1300 13.0-16.5 g/dl Low HGB 10.4 LAB L100.1400 40-54 % Low HCT 34.4 LAB L100.1500 80-94 fL Normal MCV 87.1 LAB L100.1600 27.0-32.0 pg Low MCH 26.3 LAB L100.1700 32-36 g/gl Low MCHC 30.2 LAB L100.1810 11.6-14.6 % High RDW CV 18.4 LAB L100.1820 35.1-43.9 fl High RDW SD 57.4 LAB L100.1900 150-450 K/mm3 Normal PLT 180 LAB L100.2000 6.2-12.0 fl Normal MPV 11.1 LAB L100.2100 47-70 % Normal NEUT% 65.5 LAB L100.2200 19-41 % Normal LY% 20.5 LAB L100.2300 0-10 % Normal MONO% 9.5 LAB L100.2400 0-5 % Normal EO% 2.7 LAB L100.2500 0-1 % Normal BASO% 0.2 LAB L100.2550 0.0-0.9 % High IM GRAN % 1.600 Result Comment: IG% - Immature Granulocytes (promyelocytes, myelocytes and metamyelocytes) > 1% indicates that a LEFT SHIFT is Present. LAB L100.2620 2.0-7.7 X10 3/uL Normal Absolute Neut 5.3 LAB L100.2720 0.83-4.51 X10 3/ul Normal Absolute Lymph 1.67 Performed By: #### L100.0100 #### [facility] [address] [place], [address] COMPREHENSIVE METABOLIC Collected: 03/30/2018 Status: F Source: RUDY LAU 3:36 PM [facility] REPOSITORY TYPE CODE TESTS RESULT OUT OF RANGE REFERENCE UNITS LAB L501.0100 74-106 mg/dL Low GLU 56 Result Comment: Please note revised GLUCOSE reference range effective 2017. LAB L501.1000 7-18 mg/dL High BUN 40 LAB L501.1100 0.70-1.30 mg/dL High CREAT,SERUM 1.83 Result Comment: The validity of the calculated GFR AND GFRAA in patients over 70 years has not been determined. Clinical correlation is essential. LAB L501.1110 >60 mL/min Low EST GFR 40 Result Comment: Non- GFR Calc LAB L501.1115 >60 mL/min Low EST GFR - AA 49 Result Comment: GFR Calc LAB L501.1300 10-20 RATIO High BUN/CRE 21.9 LAB L501.1500 6.4-8.2 g/dL T Normal PROT 7.5 LAB L501.1800 3.2-5.0 g/dL Low ALB 2.8 LAB L501.1950 2.2-4.2 g/dL High GLOB 4.7 LAB L501.2000 0.9-2.4 RATIO Low A/G 0.6 LAB L501.2200 8.5-10.1 mg/dL CA Normal 8.9 LAB L501.4100 15-37 U/L Normal AST 19 LAB L501.4305 45-117 U/L Normal ALK P 78 LAB L501.4405 16-61 U/L Normal ALT 28 LAB L501.4600 0.20-1.00 mg/dL T Normal BILI 0.50 LAB L501.5300 136-145 mmol/L NA Normal 143 LAB L501.5600 3.5-5.1 mmol/L K Normal 4.4 LAB L501.5900 98-107 mmol/L CL Normal 107 LAB L501.6100 21.0-32.0 mmol/L Normal CO2 28.0 LAB L501.6200 5-15 Normal GAP 8 Performed By: #### L500.4050, L501.9520 #### [facility] [address] [place], [address] THYROID STIM HORMONE Collected: 03/30/2018 Status: F Source: RUDY (TSH) 3:36 PM [facility] REPOSITORY TYPE CODE TESTS RESULT OUT OF RANGE REFERENCE UNITS LAB L501.9520 0.358-3.74 uIU/mL Normal TSH 2.70 Performed By: #### L500.4050, L501.9520 #### [facility] [address] [place], [address] BEDSIDE GLUCOSE Collected: 03/30/2018 Status: F Source: RUDY 11:06 AM [facility] REPOSITORY TYPE CODE TESTS RESULT OUT OF RANGE REFERENCE UNITS LAB L501.080 70-110 mg/dL Normal BEDSIDE GLU 88 Result Comment: MANAGEMENT OF PATIENT CARE PER NURSING PROTOCOL Performed By: #### L501.080 #### [facility] Point of Care [address] [place] [address] BEDSIDE GLUCOSE Collected: 03/30/2018 Status: F Source: RUDY 9:09 AM [facility] REPOSITORY TYPE CODE TESTS RESULT OUT OF REFERENCE UNITS RANGE LAB L501.080 70-110 mg/dL High BEDSIDE GLU 138 Result Comment: MANAGEMENT OF PATIENT CARE PER NURSING PROTOCOL Performed By: #### L501.080 #### [facility] Point of Care [address] [place] [address] BEDSIDE GLUCOSE Collected: 03/29/2018 Status: F Source: RUDY 12:03 PM [facility] REPOSITORY TYPE CODE TESTS RESULT OUT OF RANGE REFERENCE UNITS LAB L501.080 70-110 mg/dL Normal BEDSIDE GLU 82 Result Comment: MANAGEMENT OF PATIENT CARE PER NURSING PROTOCOL Performed By: #### L501.080 #### [facility] Point of Care [address] [place] [address] BEDSIDE GLUCOSE Collected: 03/29/2018 Status: F Source: ELSINORE 9:53 AM [facility] REPOSITORY TYPE CODE TESTS RESULT OUT OF REFERENCE UNITS RANGE LAB L501.080 70-110 mg/dL High BEDSIDE GLU 150 Result Comment: MANAGEMENT OF PATIENT CARE PER NURSING PROTOCOL Performed By: #### L501.080 #### [facility] [place] [address] PROGRESS Observed: 03/25/2018 Status: COMPLETED Source: HOPE 8:28 AM [facility] [place] REPOSITORY HNO ID: [id number] Author: Marilyn Reyes Service: (none) Author Type: Physician Type: Progress Notes Filed: 04/07/2018 10:02 AM Note Text: MOHS MICROGRAPHIC OPERATIVE REPORT SERVICE DATE: 03/25/2018 SERVICE TIME: 9:08 AM LOCATION: [place]:[facility] REFERRING PROVIDER: Sara Smith APRN.ATHLETIC FIELD CUSTODIAN [address] [facility] [address] PROCEDURE START TIME: 8:28 AM PROCEDURE END TIME: 11:13 AM SURGEON: Dr. Marilyn ReyesRESIDENT: Dr. Feldman FELLOW: Dr. Venus Dickey REGISTERED NURSE: Rose Mckeon RN ANTICOAGULANTS: Plavix Eliquis IMPLANTED DEVICES: None ANTIBIOTIC PROPHYLAXIS: Not required TRANSPLANT PATIENT: No PHOTOS: Photos taken VERIFICATION OF PROCEDURE: Procedure to be Performed: Mohs Surgery Patient Verified By: Name and Date of Site(s) Confirmed: Patient confirmed site from image in the EMR. Patient used mirror(s) to identify site(s). Patient pointed to site(s). Site(s) Marked: Provider marking the site with patient involvement. Relevant documentation, images, implants or special equipment present: Yes SIGN IN COMMUNICATION: Completed Time Out: Team Confirms the Correct Patient, Correct Procedure, Correct Site(s) and Site Marked, Correct Position (if applicable). Time: 9:20 AM Affirmation of Time Out: Yes Sign out Discussion: Completed LESION #1 Preoperative Diagnosis: BCC Micronodular of the left temporal scalp Tumor Type: Primary Path Report Available at Bedside: Inside pathology report # [id number], Date of Biopsy: 02/25/18 and Biopsy Performed By: Lindsey Smith CNP Pre-op Size: 1.1 cm - 2 cm, (1.3cm X 0.9cm) Lymphadenopathy: None Indication for Mohs: Anatomic Location where lesion is prone to recur, Type of tumor, Ill-defined borders and Aggressive pathology Location: Area M: (Includes Cheeks, Forehead, Scalp, Neck, Jawline and Pretibial Surface) Preparation: Chlorhexidine LAYER A The patient was positioned, prepped with alcohol and draped in the usual manner. Anesthesia was obtained with local infiltration. The clinically apparent tumor was then debulked with a curette. A 1-2 mm rim of tissue was marked circumferentially around the defect. The area thus outlined was excised deep to the subcutis. Hemostasis was achieved with electrocautery. The specimen was oriented, subdivided into 2 sections, chromacoded and submitted for horizontal frozen sections. The patient tolerated the procedure well and no complications were noted. Upon review of the horizontal frozen sections for Layer A, no residual tumor was identified. CLOSURE Rationale for Second Intention Healing: Given the large size, lack of redundant surrounding tissue and superficial nature of the defect, the defect was allowed to heal by secondary intent. Diagnosis: Surgical defect secondary to Mohs micrographic surgery on a Primary BASAL CELL CARCINOMA tumor type from left temporal scalp (location of tumor). Post-op Defect Size: 2.3 X 1.9cm PURSE STRING CLOSURE: Given the lack of redundant tissue surrounding the defect, a purse string closure was performed. A 3-0 Absorbable suture was introduced along the dermis and secured in a purse string fashion and the remaining open wound was allowed to heal by secondary intention. Final Size: Area Was reduced to 1.4 x 1.8 cm2 LESION #2 Preoperative Diagnosis: BCC Superficial of the right vertex Tumor Type: Primary Path Report Available at Bedside: Inside pathology report # [id number], Date of Biopsy: 02/25/18 and Biopsy Performed By: Lindsey Smith CNP Pre-op Size: 0.6 cm - 1 cm, (0.9cm X 0.9cm) Lymphadenopathy: None Indication for Mohs: Anatomic Location where lesion is prone to recur, Type of tumor and Ill-defined borders Location: Area M: (Includes Cheeks, Forehead, Scalp, Neck, Jawline and Pretibial Surface) Preparation: Povidone-iodine LAYER A The patient was positioned, prepped with alcohol and draped in the usual manner. Anesthesia was obtained with local infiltration. The clinically apparent tumor was then debulked with a curette. A 1-2 mm rim of tissue was marked circumferentially around the defect. The area thus outlined was excised deep to the subcutis. Hemostasis was achieved with electrocautery. The specimen was oriented, subdivided into 2 sections, chromacoded and submitted for horizontal frozen sections. The patient tolerated the procedure well and no complications were noted. Upon review of the horizontal frozen sections for Layer A, no residual tumor was identified. CLOSURE Rationale for Second Intention Healing: Given the superficial nature of the defect, the defect was allowed to heal by secondary intent. Diagnosis: Surgical defect secondary to Mohs micrographic surgery on a Primary BASAL CELL CARCINOMA tumor type from right vertex (location of tumor). Post-op Defect Size: 1.5 x 1.2cm SECONDARY INTENTION HEALING CLOSURE: Given the lack of redundant tissue surrounding the defect, the wound was allowed to heal by secondary intention. Final Size: Area 1.5 x 1.2 cm2 LOCAL ANESTHETIC: 6cc 1% Lidocaine HCl with Epinephrine 1:100,000 and 2cc 0.5% Bupivacaine HCl ESTIMATED BLOOD LOSS: Less Than Minimal Unless Noted Here. COMPLICATIONS: None, patient tolerated procedure well. TOTAL OPERATIVE TIME: 165 Minutes The primary surgeon/proceduralist performed the procedure with assistance. I performed the procedure with assistance. I have personally reviewed the specimens and worked as the pathologist. POST OP MEDS: Keflex 500mg BID x 7 days Tylenol 1-2 tabs every 4-6 hours as needed for pain relief POST OP CARE: Pressure Dressing applied consisting of Contact Layer: gelfoam, vaseline, telfa and gauze secured with Coverlet bandaid MOHS POST OP INSTRUCTIONS GIVEN WITH VERBAL UNDERSTANDING: Yes PATIENT DISCHARGED TO PILL COATER/NAME: self- transported home FOLLOW UP: 4 weeks The documentation for this note was completed by Rose Mckeon RN acting as scribe for Marilyn Reyes MD. March 25, 2018 9:11 AM. Venus Bates MD, Dermatology Surgery Fellow March 25, 2018 4:18 PM I agree with the operative note independently gathered by the clinical technical support technician and the remaining scribed note accurately describes my personal service to the patient. I have seen and examined Mr. Barrios. I have discussed the case and the management of this patient's care with the Fellow and Resident. I also have reviewed and agree with the assessment and plan as stated above and agree with all of its relevant components. I supervised the procedure(s) performed as documented above by the Fellow and Resident. Marilyn Reyes MD March 25, 2018 SIGNATURE: Marilyn Reyes MD PATIENT NAME: Del Barrios DATE: March 25, 2018 TIME: 8:28 AM PAGER/CONTACT #: [email or web address] Observed: 03/25/2018 Status: COMPLETED Source: HOPE 8:15 AM [facility] REPOSITORY Office Visit (DERMIN) DENISDEL SWANSON ([id number]) 1960 M [facility] Date Time Provider Department 03/25/18 8:15 AM MARILYN REYES During your visit today, we recorded the following information about you: Pulse Blood pressure 77/minute 124/72 Marilyn Reyes MD 04/07/2018 10:02 AM Signed MOHS MICROGRAPHIC OPERATIVE REPORT SERVICE DATE: 03/25/2018 SERVICE TIME: 9:08 AM LOCATION: [place]:[facility] REFERRING PROVIDER: Sara Smith APRN.[facility] [address] [facility] [address] PROCEDURE START TIME: 8:28 AM PROCEDURE END TIME: 11:13 AM SURGEON: Dr. Marilyn ReyesRESIDENT: Dr. Feldman FELLOW: Dr. Venus Dickey REGISTERED NURSE: Rose Mckeon RN ANTICOAGULANTS: Plavix Eliquis IMPLANTED DEVICES: None ANTIBIOTIC PROPHYLAXIS: Not required TRANSPLANT PATIENT: No PHOTOS: Photos taken VERIFICATION OF PROCEDURE: Procedure to be Performed: Mohs Surgery Patient Verified By: Name and Date of Site(s) Confirmed: Patient confirmed site from image in the EMR. Patient used mirror(s) to identify site(s). Patient pointed to site(s). Site(s) Marked: Provider marking the site with patient involvement. Relevant documentation, images, implants or special equipment present: Yes SIGN IN COMMUNICATION: Completed Time Out: Team Confirms the Correct Patient, Correct Procedure, Correct Site(s) and Site Marked, Correct Position (if applicable). Time: 9:20 AM Affirmation of Time Out: Yes Sign out Discussion: Completed LESION #1 Preoperative Diagnosis: BCC Micronodular of the left temporal scalp Tumor Type: Primary Path Report Available at Bedside: Inside pathology report # [id number], Date of Biopsy: 02/25/18 and Biopsy Performed By: Lindsey Smith CNP Pre-op Size: 1.1 cm - 2 cm, (1.3cm X 0.9cm) Lymphadenopathy: None Indication for Mohs: Anatomic Location where lesion is prone to recur, Type of tumor, Ill-defined borders and Aggressive pathology Location: Area M: (Includes Cheeks, Forehead, Scalp, Neck, Jawline and Pretibial Surface) Preparation: Chlorhexidine LAYER A The patient was positioned, prepped with alcohol and draped in the usual manner. Anesthesia was obtained with local infiltration. The clinically apparent tumor was then debulked with a curette. A 1-2 mm rim of tissue was marked circumferentially around the defect. The area thus outlined was excised deep to the subcutis. Hemostasis was achieved with electrocautery. The specimen was oriented, subdivided into 2 sections, chromacoded and submitted for horizontal frozen sections. The patient tolerated the procedure well and no complications were noted. Upon review of the horizontal frozen sections for Layer A, no residual tumor was identified. CLOSURE Rationale for Second Intention Healing: Given the large size, lack of redundant surrounding tissue and superficial nature of the defect, the defect was allowed to heal by secondary intent. Diagnosis: Surgical defect secondary to Mohs micrographic surgery on a Primary BASAL CELL CARCINOMA tumor type from left temporal scalp (location of tumor). Post-op Defect Size: 2.3 X 1.9cm PURSE STRING CLOSURE: Given the lack of redundant tissue surrounding the defect, a purse string closure was performed. A 3-0 Absorbable suture was introduced along the dermis and secured in a purse string fashion and the remaining open wound was allowed to heal by secondary intention. Final Size: Area Was reduced to 1.4 x 1.8 cm2 LESION #2 Preoperative Diagnosis: BCC Superficial of the right vertex Tumor Type: Primary Path Report Available at Bedside: Inside pathology report # [id number], Date of Biopsy: 02/25/18 and Biopsy Performed By: Lindsey Smith CNP Pre-op Size: 0.6 cm - 1 cm, (0.9cm X 0.9cm) Lymphadenopathy: None Indication for Mohs: Anatomic Location where lesion is prone to recur, Type of tumor and Ill-defined borders Location: Area M: (Includes Cheeks, Forehead, Scalp, Neck, Jawline and Pretibial Surface) Preparation: Povidone-iodine LAYER A The patient was positioned, prepped with alcohol and draped in the usual manner. Anesthesia was obtained with local infiltration. The clinically apparent tumor was then debulked with a curette. A 1-2 mm rim of tissue was marked circumferentially around the defect. The area thus outlined was excised deep to the subcutis. Hemostasis was achieved with electrocautery. The specimen was oriented, subdivided into 2 sections, chromacoded and submitted for horizontal frozen sections. The patient tolerated the procedure well and no complications were noted. Upon review of the horizontal frozen sections for Layer A, no residual tumor was identified. CLOSURE Rationale for Second Intention Healing: Given the superficial nature of the defect, the defect was allowed to heal by secondary intent. Diagnosis: Surgical defect secondary to Mohs micrographic surgery on a Primary BASAL CELL CARCINOMA tumor type from right vertex (location of tumor). Post-op Defect Size: 1.5 x 1.2cm SECONDARY INTENTION HEALING CLOSURE: Given the lack of redundant tissue surrounding the defect, the wound was allowed to heal by secondary intention. Final Size: Area 1.5 x 1.2 cm2 LOCAL ANESTHETIC: 6cc 1% Lidocaine HCl with Epinephrine 1:100,000 and 2cc 0.5% Bupivacaine HCl ESTIMATED BLOOD LOSS: Less Than Minimal Unless Noted Here. COMPLICATIONS: None, patient tolerated procedure well. TOTAL OPERATIVE TIME: 165 Minutes The primary surgeon/proceduralist performed the procedure with assistance. I performed the procedure with assistance. I have personally reviewed the specimens and worked as the pathologist. POST OP MEDS: Keflex 500mg BID x 7 days Tylenol 1-2 tabs every 4-6 hours as needed for pain relief POST OP CARE: Pressure Dressing applied consisting of Contact Layer: gelfoam, vaseline, telfa and gauze secured with Coverlet bandaid MOHS POST OP INSTRUCTIONS GIVEN WITH VERBAL UNDERSTANDING: Yes PATIENT DISCHARGED TO PILL COATER/NAME: self- transported home FOLLOW UP: 4 weeks The documentation for this note was completed by Rose Mckeon RN acting as scribe for Marilyn Reyes MD. March 25, 2018 9:11 AM. Venus Bates MD, Dermatology Surgery Fellow March 25, 2018 4:18 PM I agree with the operative note independently gathered by the clinical technical support technician and the remaining scribed note accurately describes my personal service to the patient. I have seen and examined Mr. Barrios. I have discussed the case and the management of this patient's care with the Fellow and Resident. I also have reviewed and agree with the assessment and plan as stated above and agree with all of its relevant components. I supervised the procedure(s) performed as documented above by the Fellow and Resident. Marilyn Reyes MD March 25, 2018 SIGNATURE: Marilyn Reyes MD PATIENT NAME: Del Barrios DATE: March 25, 2018 TIME: 8:28 AM PAGER/CONTACT #: Marilyn Reyes MD 03/25/2018 10:47 AM Addendum WOUND CARE INSTRUCTIONS - CLOSURE WITH ABSORBABLE SUTURES We have used dissolving sutures/stiches to close your wound. A return suture removal appointment will not be necessary. MATERIALS: 1. Tap water 2. Q-tips 3. Gauze 4. Petrolatum (i.e. Vaseline) WOUND CARE: The dressing you have been sent home with is called a pressure dressing. It should remain in place for 48-72 hours. The pressure dressing consists of several pieces of white gauze secured with white colored tape. Do not wet the pressure dressing for 48-72 hours. After that you may shower but do not let the forceful stream of the shower hit the wound directly. The first day the wound may be tender and may bleed slightly or seep a small amount of clear fluid. After 48-72 hours, remove the pressure dressing. The suture line should be cleansed daily with tap water. You may gently loosen any crusts with a Q-tip and pat dry. After cleansing the wound, apply a thin layer of Vaseline over the stitches. Cover the wound with a non-stick dressing cut to the necessary size. Tape the dressing in place with paper tape. The dressing inside the wound on the left temporal scalp may not all come out with the first dressing change. We have placed a special material called gelfoam in the wound that helps control bleeding. This may be adherent to the base of the wound, it's okay. Do not force it off. You can clean over and around it. Apply the vaseline over the gelfoam and it will come out in pieces. You may need to place a piece or 2 of clean gauze over the vaseline to absorb any drainage and cover it with a bandage. BLEEDING: Careful attention has been given to your wound to prevent bleeding. The initial dressing you have on is a pressure dressing to also help prevent bleeding. You may notice a small amount of blood on the edges of the dressing the first day and this is normal. If bleeding is persistent and saturates the dressing, apply firm, steady pressure over the dressing with gauze for 20 minutes. If bleeding continues, repeat pressure for an additional 20 minutes. If bleeding persists, call the doctor or go to the nearest Emergency room while continuing to hold pressure on the wound. Marked swelling at the surgical site may indicate blood accumulation and the doctor should be notified. PAIN: Post-operative pain is usually minimal. Plain Tylenol or Extra Strength Tylenol, two tablets ever 4 hours, usually relieves any pain you may have. If needed, apply an ice pack (or frozen bag of vegetables) over the dressing the first 24 hours every 2-3 hours for 20 minutes. This will relieve swelling, help minimize bruising and also lessen pain. After the first 24 hours, apply warm, moist soaks a few minutes a day if bruised and swollen. APPEARANCE: There may be swelling and bruising around the wound, especially if near the eyes. The area may feel firm and swollen (but will gradually soften and return to the normal appearance over time). The suture line may appear bright pink to purple and the edges of the wound may be reddened. This will lighten day by day. Slight tenderness to touch is normal. If the wound develops increasing pain, redness, heat, swelling or pus-like drainage, call the office. Those are signs of infection. As your surgical site heals, you may have occasional sharp brief pains. Itching is common but if severe and associated with a rash, call the office. Numbness may be present but slowly fades away over several months. Not uncommonly, the absorbable stitches under the skin may cause a one or more small, red pimples to appear along the incision line. In general this is an annoyance but will not interfere with final wound healing. If the stitch can be easily seen, it may be removed with small clean scissors and tweezers. DO NOT TAKE ANY MEDICATION CONTAINING ASPIRIN, IBUPROFEN OR SIMILAR NON-STEROIDAL PAIN MEDICATIONS, BLOOD THINNERS OR DRINK ANY ALCOHOL 3 DAYS AFTER SURGERY (unless otherwise instructed). Continue to take all other prescribed medication. NOTES: 1. If the wound site is near the eye, saline eyewash (i.e. Dacriose) may be used on a Q-tip to clean the corner of the eye and eyelids. 2. Make sure you clean your scissors with alcohol before each dressing change. 3. You may have a lo-grade fever (99-100 degrees F) for which Tylenol may be used. 4. You may have some clear drainage from the wound. This will stop after a few days. If not, please call the office. IF THERE ARE ANY QUESTIONS, PLEASE CALL OUR OFFICE AT [phone] ext [phone] or [phone] FOR EMERGENCIES AFTER 4:30 PLEASE CALL [phone] AND ASK FOR THE DERMATOLOGY FELLOW [employer] SALES REPRESENTATIVE Referring Provider: SARA SMITH ([facility]) [[id number]] Allergies As of Date: 03/25/2018 Noted Allergy Reaction CLAUDE INHIBITORS 01/28/2014 14 - Other: See Comments Comments: Angioedema. BEES 07/24/2013 2 - Rash FLAGYL (METRONIDAZOLE) 01/16/2016 14 - Other: See Comments Comments: Gets sick Date Reviewed: 03/25/2018 Reviewed by: Rose Mckeon RN - Fully Assessed Reason for Visit: Mohs [1136] Primary Visit Diagnosis:Basal cell carcinoma (BCC) of scalp [C44.41] Other Visit Diagnosis:Dressing change or removal, surgical wound [Z48.01] Order(s):CONSULT TO [facility] [[id number]] Order #: [id number]: 1 [] cephALEXin (KEFLEX) 500 mg capsuleTake 1 capsule by mouth twice daily for 7 days.Disp: 14 capsuleRfl: 0 Prescriptions as of 03/25/2018 Sig: BRIMONIDINE 0.2 % EYE DROPS Use 1 Drop in both eyes twice* LATANOPROST 0.005 % EYE DROPS Use 1 Drop in both eyes daily* TIMOLOL MALEATE 0.5 % EYE FAITH* Use 1 Drop in both eyes every* INSULIN REGULAR HUMAN U-500C* 145 units with breakfast, 95 * CLOPIDOGREL 75 MG TABLET Take 75 mg by mouth once narcisa* NEBIVOLOL 10 MG TABLET Take 1 tablet by mouth once d* LOSARTAN 50 MG TABLET Take 1 tablet by mouth once d* ATORVASTATIN 10 MG TABLET Take 10 mg by mouth once narcisa* FLUTICASONE 50 MCG/ACTUATION * Use 1 [place] in each nostril o* GABAPENTIN 600 MG TABLET Take 600 mg by mouth daily wi* APIXABAN 2.5 MG TABLET Take 2.5 mg by mouth twice da* MULTIVITAMIN TABLET Take 1 tablet by mouth once d* ACETAMINOPHEN 325 MG TABLET Take 650 mg by mouth every 4 * OMEPRAZOLE 20 MG TABLET,DELAY* Take 40 mg by mouth once narcisa* ZINC Take 220 mg by mouth once minnie* CEPHALEXIN 500 MG CAPSULE Take 1 capsule by mouth twice* FLUOROURACIL 2 % TOPICAL SOLU* Applied to the affected areas* GABAPENTIN 800 MG TABLET Take 1 tablet by mouth daily * FERROUS SULFATE 325 MG (65 MG* Take 1 tablet by mouth twice * VITAMIN D2 ORAL Take 50,000 Units by mouth On* MYLANTA ORAL Take 15 mL by mouth every 6 h* ASCORBIC ACID (VITAMIN C) 500* Take 500 mg by mouth once minnie* MAGNESIUM HYDROXIDE 400 MG/5 * Take 30 mL by mouth once narcisa* Problem List As Of Date 03/25/2018 Noted Resolved Hypertension [I10] INVALID FOR* Priority: E Diabetic neuropathy ([facility]) [E11.40] INVALID FOR* GERD (Gastroesophageal Reflux Disease) [K21.9] More... Hyperlipidemia [E78.5] Priority: F More... Proteinuria [R80.9] More... Pressure ulcer, other site(707.09) ([facility]) [L89.*INVALID FOR*01/28/2014 CKD III [N18.3] INVALID FOR* Priority: D More... Diabetic ulcer of right foot ([facility]) [E11.621, L9*INVALID FOR*01/28/2014 Nhmkg-ax-yyklygd kidney injury ([facility]) [N17.9, N1*INVALID FOR*01/31/2014 Chronic anticoagulation [Z79.01] INVALID FOR* More... 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 Ulcer of ankle ([facility]) [L97.309] INVALID FOR* Peripheral vascular disease, unspecified ([facility]) *INVALID FOR* S/P BKA (below knee amputation) ([facility]) [Z89.519] INVALID FOR* Lymphedema [I89.0] INVALID FOR* Hearing loss [H91.90] INVALID FOR* Rhinitis [J31.0] INVALID FOR* Chronic serous otitis media [H65.20] INVALID FOR*05/28/2017 Chronic otitis media of right ear [H66.91] INVALID FOR*05/28/2017 Deep vein thrombosis [I82.409] INVALID FOR* Priority: B More... Morbid obesity ([facility]) [E66.01] INVALID FOR* Priority: G Open wound of right foot [S91.301A] INVALID FOR* Borderline glaucoma with ocular hypertension [H*INVALID FOR* Ulcer of toe of right foot ([facility]) [L97.519] INVALID FOR* Bilateral chronic serous otitis media [H65.23] INVALID FOR* Wound of left leg [S81.802A] INVALID FOR* Cellulitis [L03.90] INVALID FOR*01/21/2017 Diabetes mellitus ([facility]) [E11.9] INVALID FOR* Other instructions from your clinician: WOUND CARE INSTRUCTIONS - CLOSURE WITH ABSORBABLE SUTURES We have used dissolving sutures/stiches to close your wound. A return suture removal appointment will not be necessary. MATERIALS: 1. Tap water 2. Q-tips 3. Gauze 4. Petrolatum (i.e. Vaseline) WOUND CARE: The dressing you have been sent home with is called a pressure dressing. It should remain in place for 48-72 hours. The pressure dressing consists of several pieces of white gauze secured with white colored tape. Do not wet the pressure dressing for 48-72 hours. After that you may shower but do not let the forceful stream of the shower hit the wound directly. The first day the wound may be tender and may bleed slightly or seep a small amount of clear fluid. After 48-72 hours, remove the pressure dressing. The suture line should be cleansed daily with tap water. You may gently loosen any crusts with a Q-tip and pat dry. After cleansing the wound, apply a thin layer of Vaseline over the stitches. Cover the wound with a non- stick dressing cut to the necessary size. Tape the dressing in place with paper tape. The dressing inside the wound on the left temporal scalp may not all come out with the first dressing change. We have placed a special material called gelfoam in the wound that helps control bleeding. This may be adherent to the base of the wound, it's okay. Do not force it off. You can clean over and around it. Apply the vaseline over the gelfoam and it will come out in pieces. You may need to place a piece or 2 of clean gauze over the vaseline to absorb any drainage and cover it with a bandage. BLEEDING: Careful attention has been given to your wound to prevent bleeding. The initial dressing you have on is a pressure dressing to also help prevent bleeding. You may notice a small amount of blood on the edges of the dressing the first day and this is normal. If bleeding is persistent and saturates the dressing, apply firm, steady pressure over the dressing with gauze for 20 minutes. If bleeding continues, repeat pressure for an additional 20 minutes. If bleeding persists, call the doctor or go to the nearest Emergency room while continuing to hold pressure on the wound. Marked swelling at the surgical site may indicate blood accumulation and the doctor should be notified. PAIN: Post-operative pain is usually minimal. Plain Tylenol or Extra Strength Tylenol, two tablets ever 4 hours, usually relieves any pain you may have. If needed, apply an ice pack (or frozen bag of vegetables) over the dressing the first 24 hours every 2-3 hours for 20 minutes. This will relieve swelling, help minimize bruising and also lessen pain. After the first 24 hours, apply warm, moist soaks a few minutes a day if bruised and swollen. APPEARANCE: There may be swelling and bruising around the wound, especially if near the eyes. The area may feel firm and swollen (but will gradually soften and return to the normal appearance over time). The suture line may appear bright pink to purple and the edges of the wound may be reddened. This will lighten day by day. Slight tenderness to touch is normal. If the wound develops increasing pain, redness, heat, swelling or pus-like drainage, call the office. Those are signs of infection. As your surgical site heals, you may have occasional sharp brief pains. Itching is common but if severe and associated with a rash, call the office. Numbness may be present but slowly fades away over several months. Not uncommonly, the absorbable stitches under the skin may cause a one or more small, red pimples to appear along the incision line. In general this is an annoyance but will not interfere with final wound healing. If the stitch can be easily seen, it may be removed with small clean scissors and tweezers. DO NOT TAKE ANY MEDICATION CONTAINING ASPIRIN, IBUPROFEN OR SIMILAR NON-STEROIDAL PAIN MEDICATIONS, BLOOD THINNERS OR DRINK ANY ALCOHOL 3 DAYS AFTER SURGERY (unless otherwise instructed). Continue to take all other prescribed medication. NOTES: 1. If the wound site is near the eye, saline eyewash (i.e. Dacriose) may be used on a Q-tip to clean the corner of the eye and eyelids. 2. Make sure you clean your scissors with alcohol before each dressing change. 3. You may have a lo-grade fever (99-100 degrees F) for which Tylenol may be used. 4. You may have some clear drainage from the wound. This will stop after a few days. If not, please call the office. IF THERE ARE ANY QUESTIONS, PLEASE CALL OUR OFFICE AT [phone] ext [phone] FOR EMERGENCIES AFTER 4:30 PLEASE CALL [phone] AND ASK FOR THE DERMATOLOGY FELLOW [employer] SALES REPRESENTATIVE Prescriptions ordered this encounter Disp Refills Start End CEPHALEXIN 500 MG CAPSULE 14 c* 0 03/25/2018 04/01/2018 Route: ORAL Sig: Take 1 capsule by mouth twice daily for 7 days. Disposition: Return in about 4 weeks (around 04/22/2018) for derm surg nurse when JL in office. Follow-up and Disposition History Recorded Encounter Status:Closed by MARILYN REYES MD on 04/07/18 BEDSIDE GLUCOSE Collected: 03/23/2018 Status: F Source: RUDY 9:09 AM [facility] REPOSITORY TYPE CODE TESTS RESULT OUT OF REFERENCE UNITS RANGE LAB L501.080 70-110 mg/dL High BEDSIDE GLU 292 Result Comment: MANAGEMENT OF PATIENT CARE PER NURSING PROTOCOL Performed By: #### L501.080 #### [facility] Point of Care [address] [place] [address] BEDSIDE GLUCOSE Collected: 03/22/2018 Status: F Source: RUDY 11:15 AM [facility] REPOSITORY TYPE CODE TESTS RESULT OUT OF REFERENCE UNITS RANGE LAB L501.080 70-110 mg/dL High BEDSIDE GLU 175 Result Comment: MANAGEMENT OF PATIENT CARE PER NURSING PROTOCOL Performed By: #### L501.080 #### [facility] Point of Care [address] [place] [address] BEDSIDE GLUCOSE Collected: 03/22/2018 Status: F Source: ELSINORE 9:18 AM [facility] REPOSITORY TYPE CODE TESTS RESULT OUT OF REFERENCE UNITS RANGE LAB L501.080 70-110 mg/dL High BEDSIDE GLU 248 Result Comment: MANAGEMENT OF PATIENT CARE PER NURSING PROTOCOL Performed By: #### L501.080 #### [facility] Point of Care [address] [place] [address] BEDSIDE GLUCOSE Collected: 03/21/2018 Status: F Source: RUDY 11:06 AM [facility] REPOSITORY TYPE CODE TESTS RESULT OUT OF REFERENCE UNITS RANGE LAB L501.080 70-110 mg/dL High BEDSIDE GLU 141 Result Comment: MANAGEMENT OF PATIENT CARE PER NURSING PROTOCOL Performed By: #### L501.080 #### [facility] Point of Care [address] [place] [address] BEDSIDE GLUCOSE Collected: 03/21/2018 Status: F Source: ELSINORE 9:14 AM [facility] REPOSITORY TYPE CODE TESTS RESULT OUT OF REFERENCE UNITS RANGE LAB L501.080 70-110 mg/dL High BEDSIDE GLU 163 Result Comment: MANAGEMENT OF PATIENT CARE PER NURSING PROTOCOL Performed By: #### L501.080 #### [facility] Point of Care [address] [place] [address] BEDSIDE GLUCOSE Collected: 03/17/2018 Status: F Source: RUDY 11:53 AM [facility] REPOSITORY TYPE CODE TESTS RESULT OUT OF REFERENCE UNITS RANGE LAB L501.080 70-110 mg/dL High BEDSIDE GLU 131 Result Comment: MANAGEMENT OF PATIENT CARE PER NURSING PROTOCOL Performed By: #### L501.080 #### [facility] Point of Care [address] [place] [address] BEDSIDE GLUCOSE Collected: 03/17/2018 Status: F Source: RUDY 9:58 AM [facility] REPOSITORY TYPE CODE TESTS RESULT OUT OF REFERENCE UNITS RANGE LAB L501.080 70-110 mg/dL High BEDSIDE GLU 190 Result Comment: MANAGEMENT OF PATIENT CARE PER NURSING PROTOCOL Performed By: #### L501.080 #### [facility] Point of [facility] [address] [place] [address] BEDSIDE GLUCOSE Collected: 03/16/2018 Status: F Source: RUDY 11:44 AM [facility] REPOSITORY TYPE CODE TESTS RESULT OUT OF REFERENCE UNITS RANGE LAB L501.080 70-110 mg/dL High BEDSIDE GLU 133 Result Comment: MANAGEMENT OF PATIENT CARE PER NURSING PROTOCOL Performed By: #### L501.080 #### [facility] Point of [facility] [address] [place] [address] BEDSIDE GLUCOSE Collected: 03/16/2018 Status: F Source: RUDY 9:22 AM [facility] REPOSITORY TYPE CODE TESTS RESULT OUT OF REFERENCE UNITS RANGE LAB L501.080 70-110 mg/dL High BEDSIDE GLU 211 Result Comment: MANAGEMENT OF PATIENT CARE PER NURSING PROTOCOL Performed By: #### L501.080 #### [facility] Point [facility] [address] [place] [address] BEDSIDE GLUCOSE Collected: 03/15/2018 Status: F Source: RUDY 11:01 AM [facility] REPOSITORY TYPE CODE TESTS RESULT OUT OF REFERENCE UNITS RANGE LAB L501.080 70-110 mg/dL High BEDSIDE GLU 125 Result Comment: MANAGEMENT OF PATIENT CARE PER NURSING PROTOCOL Performed By: #### L501.080 #### [facility] Point of [facility] [address] [place] [address] BEDSIDE GLUCOSE Collected: 03/15/2018 Status: F Source: RUDY 9:06 AM [facility] REPOSITORY TYPE CODE TESTS RESULT OUT OF REFERENCE UNITS RANGE LAB L501.080 70-110 mg/dL High BEDSIDE GLU 204 Result Comment: MANAGEMENT OF PATIENT CARE PER NURSING PROTOCOL Performed By: #### L501.080 #### [facility] Point [facility] [address] [place] [address] BEDSIDE GLUCOSE Collected: 03/14/2018 Status: F Source: RUDY 11:26 AM [facility] REPOSITORY TYPE CODE TESTS RESULT OUT OF REFERENCE UNITS RANGE LAB L501.080 70-110 mg/dL High BEDSIDE GLU 149 Result Comment: MANAGEMENT OF PATIENT CARE PER NURSING PROTOCOL Performed By: #### L501.080 #### [facility] [address] [place] [address] BEDSIDE GLUCOSE Collected: 03/14/2018 Status: F Source: RUDY 9:27 AM [facility] REPOSITORY TYPE CODE TESTS RESULT OUT OF REFERENCE UNITS RANGE LAB L501.080 70-110 mg/dL High BEDSIDE GLU 221 Result Comment: MANAGEMENT OF PATIENT CARE PER NURSING PROTOCOL Performed By: #### L501.080 #### [facility] [address] [place] [address] BEDSIDE GLUCOSE Collected: 03/11/2018 Status: F Source: RUDY 12:08 PM [facility] REPOSITORY TYPE CODE TESTS RESULT OUT OF REFERENCE UNITS RANGE LAB L501.080 70-110 mg/dL High BEDSIDE GLU 116 Result Comment: MANAGEMENT OF PATIENT CARE PER NURSING PROTOCOL Performed By: #### L501.080 #### [facility] [address] [place] [address] BEDSIDE GLUCOSE Collected: 03/11/2018 Status: F Source: RUDY 10:16 AM [facility] REPOSITORY TYPE CODE TESTS RESULT OUT OF RANGE REFERENCE UNITS LAB L501.080 70-110 mg/dL Normal BEDSIDE GLU 108 Result Comment: MANAGEMENT OF PATIENT CARE PER NURSING PROTOCOL Performed By: #### L501.080 #### [facility] [address] [place] [address] BEDSIDE GLUCOSE Collected: 03/11/2018 Status: F Source: RUDY 10:06 AM [facility] REPOSITORY TYPE CODE TESTS RESULT OUT OF RANGE REFERENCE UNITS LAB L501.080 70-110 mg/dL Normal BEDSIDE GLU 95 Result Comment: MANAGEMENT OF PATIENT CARE PER NURSING PROTOCOL Performed By: #### L501.080 #### [facility] [address] [place] [address] BEDSIDE GLUCOSE Collected: 03/11/2018 Status: F Source: RUDY 9:52 AM [facility] REPOSITORY TYPE CODE TESTS RESULT OUT OF RANGE REFERENCE UNITS LAB L501.080 70-110 mg/dL Normal BEDSIDE GLU 87 Result Comment: MANAGEMENT OF PATIENT CARE PER NURSING PROTOCOL Performed By: #### L501.080 #### [facility] [address] [place] [address] BEDSIDE GLUCOSE Collected: 03/11/2018 Status: F Source: RUDY 9:39 AM [facility] REPOSITORY TYPE CODE TESTS RESULT OUT OF RANGE REFERENCE UNITS LAB L501.080 70-110 mg/dL Normal BEDSIDE GLU 94 Result Comment: MANAGEMENT OF PATIENT CARE PER NURSING PROTOCOL Performed By: #### L501.080 #### [facility] [address] [place] [address] BEDSIDE GLUCOSE Collected: 03/10/2018 Status: F Source: RUDY 11:36 AM [facility] REPOSITORY TYPE CODE TESTS RESULT OUT OF REFERENCE UNITS RANGE LAB L501.080 70-110 mg/dL High BEDSIDE GLU 128 Result Comment: MANAGEMENT OF PATIENT CARE PER NURSING PROTOCOL Performed By: #### L501.080 #### [facility] [address] [place] [address] BEDSIDE GLUCOSE Collected: 03/10/2018 Status: F Source: RUDY 9:41 AM [facility] REPOSITORY TYPE CODE TESTS RESULT OUT OF REFERENCE UNITS RANGE LAB L501.080 70-110 mg/dL High BEDSIDE GLU 142 Result Comment: MANAGEMENT OF PATIENT CARE PER NURSING PROTOCOL Performed By: #### L501.080 #### [facility] [address] [place] [address] BEDSIDE GLUCOSE Collected: 03/09/2018 Status: F Source: RUDY 11:02 AM [facility] REPOSITORY TYPE CODE TESTS RESULT OUT OF REFERENCE UNITS RANGE LAB L501.080 70-110 mg/dL High BEDSIDE GLU 123 Result Comment: MANAGEMENT OF PATIENT CARE PER NURSING PROTOCOL Performed By: #### L501.080 #### [facility] [address] [place] [address] BEDSIDE GLUCOSE Collected: 03/09/2018 Status: F Source: RUDY 8:48 AM [facility] REPOSITORY TYPE CODE TESTS RESULT OUT OF REFERENCE UNITS RANGE LAB L501.080 70-110 mg/dL High BEDSIDE GLU 139 Result Comment: MANAGEMENT OF PATIENT CARE PER NURSING PROTOCOL Performed By: #### L501.080 #### [facility] [address] [place] [address] BEDSIDE GLUCOSE Collected: 03/08/2018 Status: F Source: RUDY 11:40 AM [facility] REPOSITORY TYPE CODE TESTS RESULT OUT OF REFERENCE UNITS RANGE LAB L501.080 70-110 mg/dL High BEDSIDE GLU 134 Result Comment: MANAGEMENT OF PATIENT CARE PER NURSING PROTOCOL Performed By: #### L501.080 #### [facility] [address] [place] [address] BEDSIDE GLUCOSE Collected: 03/08/2018 Status: F Source: RUDY 9:48 AM [facility] REPOSITORY TYPE CODE TESTS RESULT OUT OF REFERENCE UNITS RANGE LAB L501.080 70-110 mg/dL High BEDSIDE GLU 129 Result Comment: MANAGEMENT OF PATIENT CARE PER NURSING PROTOCOL Performed By: #### L501.080 #### [facility] [address] [place] [address] BEDSIDE GLUCOSE Collected: 03/07/2018 Status: F Source: RUDY 11:34 AM [facility] REPOSITORY TYPE CODE TESTS RESULT OUT OF RANGE REFERENCE UNITS LAB L501.080 70-110 mg/dL Normal BEDSIDE GLU 102 Result Comment: MANAGEMENT OF PATIENT CARE PER NURSING PROTOCOL Performed By: #### L501.080 #### [facility] [address] [place] [address] BEDSIDE GLUCOSE Collected: 03/07/2018 Status: F Source: ELSINORE 9:34 AM [facility] REPOSITORY TYPE CODE TESTS RESULT OUT OF REFERENCE UNITS RANGE LAB L501.080 70-110 mg/dL High BEDSIDE GLU 142 Result Comment: MANAGEMENT OF PATIENT CARE PER NURSING PROTOCOL Performed By: #### L501.080 #### [facility] [address] [place] [address] BEDSIDE GLUCOSE Collected: 03/04/2018 Status: F Source: ELSINORE 11:26 AM [facility] REPOSITORY TYPE CODE TESTS RESULT OUT OF REFERENCE UNITS RANGE LAB L501.080 70-110 mg/dL High BEDSIDE GLU 253 Result Comment: MANAGEMENT OF PATIENT CARE PER NURSING PROTOCOL Performed By: #### L501.080 #### [facility] [address] [place] [address] BEDSIDE GLUCOSE Collected: 03/04/2018 Status: F Source: ELSINORE 9:28 AM [facility] REPOSITORY TYPE CODE TESTS RESULT OUT OF REFERENCE UNITS RANGE LAB L501.080 70-110 mg/dL High BEDSIDE GLU 312 Result Comment: MANAGEMENT OF PATIENT CARE PER NURSING PROTOCOL Performed By: #### L501.080 #### [facility] [address] [place] [address] PROGRESS Observed: 03/04/2018 Status: COMPLETED Source: HOPE 8:52 AM [facility] REPOSITORY HNO ID: [id number] Author: Sara Portillo [facility] Service: (none) Author Type: Nurse Practitioner Type: Progress Notes Filed: 03/04/2018 8:52 AM Note Text: Spoke with patient regarding pathology and the need for further treatment. Results sent to [facility] Staff Pool. BEDSIDE GLUCOSE Collected: 03/03/2018 Status: F Source: ELSINORE 11:53 AM [facility] REPOSITORY TYPE CODE TESTS RESULT OUT OF REFERENCE UNITS RANGE LAB L501.080 70-110 mg/dL High BEDSIDE GLU 127 Result Comment: MANAGEMENT OF PATIENT CARE PER NURSING PROTOCOL Performed By: #### L501.080 #### [facility] Point of Care [address] [place], [place] [address] BEDSIDE GLUCOSE Collected: 03/03/2018 Status: F Source: ELSINORE 9:42 AM [facility] REPOSITORY TYPE CODE TESTS RESULT OUT OF REFERENCE UNITS RANGE LAB L501.080 70-110 mg/dL High BEDSIDE GLU 134 Result Comment: MANAGEMENT OF PATIENT CARE PER NURSING PROTOCOL Performed By: #### L501.080 #### [facility] Point of Care [address] [place] [address] CNPN Observed: 03/03/2018 Status: COMPLETED Source: HOPE 12:00 AM [facility] REPOSITORY Telephone (DERMIN) DEL BARRIOS ([id number]) 1960 M [facility] Date Time Provider Department 03/03/18 SARA SMITH) DERMIN During your visit today, we recorded the following information about you: Meera Deniz 03/03/2018 9:11 AM Signed Patient states he received a call, but no message was left. Patient asking if his test results were back Sara Smith APRN.CNP 03/03/2018 9:24 AM Signed Left voicemail to return call regarding pathology results. Sara Smith APRN.CNP March 03, 2018 9:24 AM Sara Smith APRN.CNP 03/04/2018 8:52 AM Signed DEPARTMENT OF DERMATOLOGY SURGERY APPOINTMENT ROUTING SLIP Patient Phone #: [phone] Referring Provider: Sara Smith APRN.CNP FINAL DIAGNOSIS (INDEP) A. Skin, left temporal scalp, shave biopsy - Basal cell carcinoma, micronodular type. 0.8 cm ? B. Skin, right vertex, shave biopsy - Basal cell carcinoma, superficial type. 0.4 cm If malignant, primary or recurrent: Primary Current Outpatient Prescriptions: brimonidine (ALPHAGAN) 0.2 % ophthalmic solution Use 1 Drop in both eyes twice daily. latanoprost (XALATAN) 0.005 % ophthalmic solution Use 1 Drop in both eyes daily at bedtime. timolol maleate (TIMOPTIC) 0.5 % ophthalmic solution Use 1 Drop in both eyes every morning. insulin regular human, CONCENTRATED 500 UNIT/ML, (HUMULIN R) 500 unit/mL soln 145 units with breakfast, 95 units with lunch, and 80 units with dinner clopidogrel (PLAVIX) 75 mg tablet Take 75 mg by mouth once daily. fluorouracil (EFUDEX) 2 % soln Applied to the affected areas of the face and scalp twice daily for 2 weeks on 2 weeks off and repeat gabapentin (NEURONTIN) 800 mg tablet Take 1 tablet by mouth daily at bedtime. nebivolol (BYSTOLIC) 10 mg tablet Take 1 tablet by mouth once daily. ferrous sulfate 325 mg (65 mg iron) EC tablet Take 1 tablet by mouth twice daily. losartan (COZAAR) 50 mg tablet Take 1 tablet by mouth once daily. atorvastatin (LIPITOR) 10 mg tablet Take 10 mg by mouth once daily. ERGOCALCIFEROL, VITAMIN D2, (VITAMIN D2 ORAL) Take 50,000 Units by mouth Once Weekly with Dialysis. MAGNESIUM HYDROXIDE/AL HYDROX (MYLANTA ORAL) Take 15 mL by mouth every 6 hours as needed. fluticasone (FLONASE) 50 mcg/actuation nasal spray Use 1 [place] in each nostril once daily. gabapentin (NEURONTIN) 600 mg tablet Take 600 mg by mouth daily with breakfast. ascorbic acid, vitamin C, (VITAMIN C) 500 mg tablet Take 500 mg by mouth once daily. apixaban (ELIQUIS) 2.5 mg tab tab(s) Take 2.5 mg by mouth twice daily. magnesium hydroxide (MILK OF MAGNESIA) 400 mg/5 mL suspension Take 30 mL by mouth once daily as needed. multivitamin tablet Take 1 tablet by mouth once daily. acetaminophen 325 mg tablet Take 650 mg by mouth every 4 hours as needed. Omeprazole 20 mg TbEC Take 40 mg by mouth once daily. zinc Take 220 mg by mouth once daily. No current facility-administered medications for this visit. PAST MEDICAL HISTORY Diagnosis Date - Acute renal failure (HCC) 2007 related to medication - Javrl-cm-vohbtvr kidney injury ([facility]) 01/28/2014 - Anemia - Background diabetic retinopathy(362.01) followed by [facility] - Corbin's esophagus - Below knee amputation of left lower extremity ([facility]) 09/28/2013 - Chronic kidney disease (CKD) - Chronic obstructive pulmonary disease (COPD) ([facility]) bronchitis - DDD (degenerative disc disease), lumbosacral - DM (diabetes mellitus) with complications ([facility]) On pre-meal insulin coverage - DVT (deep venous thrombosis) 05/18/2012 left leg - Essential hypertension, benign - Foot ulcer due to secondary DM ([facility]) 2010 both feet, sees Podiatry - Fracture lt ankle stress fracture - GERD (gastroesophageal reflux disease) nexium - Hyperlipidemia - Neuropathy ([facility]) hands AND feet - PDR (proliferative diabetic retinopathy) ([facility]) - Peripheral vascular disease ([facility]) - Proliferative diabetic retinopathy(362.02) - Proteinuria being treated with ACEI/ARB - Rotator cuff tear RT. - Spondylolysis - Type II or unspecified type diabetes mellitus with ophthalmic manifestations, not stated as uncontrolled(250.50) - Wound infection rt lower leg and toes Meera Dejesus Ma 03/08/2018 4:08 PM Signed Left message to call back. Meera Mckeon RN 03/10/2018 10:19 AM Signed Mohs x 2 - one appt (Routing comment) .TCB. Rose Mckeon RN March 10, 2018 10:19 AM Rose Mckeon RN 03/10/2018 6:04 PM Signed Spoke with pt. Procedure reviewed. Appt scheduled for Mohs x 2 lesions on 03-25-18 at [address] Reyes. Reminder /info sent in the mail. Rose Mckeon RN Allergies As of Date: 03/03/2018 Noted Allergy Reaction CLAUDE INHIBITORS 01/28/2014 14 - Other: See Comments Comments: Angioedema. BEES 07/24/2013 2 - Rash FLAGYL (METRONIDAZOLE) 01/16/2016 14 - Other: See Comments Comments: Gets sick Date Reviewed: 02/25/2018 Reviewed by: Laya M Pistone Ma - Fully Assessed Reason for Visit: Results - INDEP [Other] Prescriptions as of 03/03/2018 Sig: BRIMONIDINE 0.2 % EYE DROPS Use 1 Drop in both eyes twice* LATANOPROST 0.005 % EYE DROPS Use 1 Drop in both eyes daily* TIMOLOL MALEATE 0.5 % EYE FAITH* Use 1 Drop in both eyes every* INSULIN REGULAR HUMAN U-500C* 145 units with breakfast, 95 * CLOPIDOGREL 75 MG TABLET Take 75 mg by mouth once narcisa* FLUOROURACIL 2 % TOPICAL SOLU* Applied to the affected areas* GABAPENTIN 800 MG TABLET Take 1 tablet by mouth daily * NEBIVOLOL 10 MG TABLET Take 1 tablet by mouth once d* FERROUS SULFATE 325 MG (65 MG* Take 1 tablet by mouth twice * LOSARTAN 50 MG TABLET Take 1 tablet by mouth once d* ATORVASTATIN 10 MG TABLET Take 10 mg by mouth once narcisa* VITAMIN D2 ORAL Take 50,000 Units by mouth On* MYLANTA ORAL Take 15 mL by mouth every 6 h* FLUTICASONE 50 MCG/ACTUATION * Use 1 [place] in each nostril o* GABAPENTIN 600 MG TABLET Take 600 mg by mouth daily wi* ASCORBIC ACID (VITAMIN C) 500* Take 500 mg by mouth once minnie* APIXABAN 2.5 MG TABLET Take 2.5 mg by mouth twice da* MAGNESIUM HYDROXIDE 400 MG/5 * Take 30 mL by mouth once narcisa* MULTIVITAMIN TABLET Take 1 tablet by mouth once d* ACETAMINOPHEN 325 MG TABLET Take 650 mg by mouth every 4 * OMEPRAZOLE 20 MG TABLET,DELAY* Take 40 mg by mouth once narcisa* ZINC Take 220 mg by mouth once minnie* Problem List As Of Date 03/03/2018 Noted Resolved Hypertension [I10] INVALID FOR* Priority: E Diabetic neuropathy ([facility]) [E11.40] INVALID FOR* GERD (Gastroesophageal Reflux Disease) [K21.9] More... Hyperlipidemia [E78.5] Priority: F More... Proteinuria [R80.9] More... Pressure ulcer, other site(707.09) ([facility]) [L89.*INVALID FOR*01/28/2014 CKD III [N18.3] INVALID FOR* Priority: D More... Diabetic ulcer of right foot (HCC) [E11.621, L9*INVALID FOR*01/28/2014 Foaqy-hw-mpnyris kidney injury (HCC) [N17.9, N1*INVALID FOR*01/31/2014 Chronic anticoagulation [Z79.01] INVALID FOR* More... 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 Ulcer of ankle ([facility]) [L97.309] INVALID FOR* Peripheral vascular disease, unspecified ([facility]) *INVALID FOR* S/P BKA (below knee amputation) ([facility]) [Z89.519] INVALID FOR* Lymphedema [I89.0] INVALID FOR* Hearing loss [H91.90] INVALID FOR* Rhinitis [J31.0] INVALID FOR* Chronic serous otitis media [H65.20] INVALID FOR*05/28/2017 Chronic otitis media of right ear [H66.91] INVALID FOR*05/28/2017 Deep vein thrombosis [I82.409] INVALID FOR* Priority: B More... Morbid obesity ([facility]) [E66.01] INVALID FOR* Priority: G Open wound of right foot [S91.301A] INVALID FOR* Borderline glaucoma with ocular hypertension [H*INVALID FOR* Ulcer of toe of right foot ([facility]) [L97.519] INVALID FOR* Bilateral chronic serous otitis media [H65.23] INVALID FOR* Wound of left leg [S81.802A] INVALID FOR* Cellulitis [L03.90] INVALID FOR*01/21/2017 Diabetes mellitus ([facility]) [E11.9] INVALID FOR* Encounter Status:Closed by OLE ANDREA MD on 03/04/18 BEDSIDE GLUCOSE Collected: 03/02/2018 Status: F Source: [place] 11:14 AM [facility] REPOSITORY TYPE CODE TESTS RESULT OUT OF REFERENCE UNITS RANGE LAB L501.080 70-110 mg/dL High BEDSIDE GLU 148 Result Comment: MANAGEMENT OF PATIENT CARE PER NURSING PROTOCOL Performed By: #### L501.080 #### [place] [facility] Point of Care [facility] [address] [place] [address] BEDSIDE GLUCOSE Collected: 03/02/2018 Status: F Source: [place] 9:19 AM [facility] REPOSITORY TYPE CODE TESTS RESULT OUT OF REFERENCE UNITS RANGE LAB L501.080 70-110 mg/dL High BEDSIDE GLU 173 Result Comment: MANAGEMENT OF PATIENT CARE PER NURSING PROTOCOL Performed By: #### L501.080 #### [facility] Point of Care [address] [place], [place] [id number] BEDSIDE GLUCOSE Collected: 03/01/2018 Status: F Source: [place] 11:20 AM [facility] REPOSITORY TYPE CODE TESTS RESULT OUT OF REFERENCE UNITS RANGE LAB L501.080 70-110 mg/dL High BEDSIDE GLU 178 Result Comment: MANAGEMENT OF PATIENT CARE PER NURSING PROTOCOL Performed By: #### L501.080 #### [facility] Point of Care [address] [place] [address] BEDSIDE GLUCOSE Collected: 03/01/2018 Status: F Source: [place] 9:23 AM [facility] REPOSITORY TYPE CODE TESTS RESULT OUT OF REFERENCE UNITS RANGE LAB L501.080 70-110 mg/dL High BEDSIDE GLU 226 Result Comment: MANAGEMENT OF PATIENT CARE PER NURSING PROTOCOL Performed By: #### L501.080 #### [facility] Point of Care [address] [place] [address] BEDSIDE GLUCOSE Collected: 02/28/2018 Status: F Source: [place] 11:53 AM [facility] REPOSITORY TYPE CODE TESTS RESULT OUT OF REFERENCE UNITS RANGE LAB L501.080 70-110 mg/dL High BEDSIDE GLU 170 Result Comment: MANAGEMENT OF PATIENT CARE PER NURSING PROTOCOL Performed By: #### L501.080 #### [facility] Point of Care [address] [place] [address] BEDSIDE GLUCOSE Collected: 02/28/2018 Status: F Source: [place] 9:52 AM [facility] REPOSITORY TYPE CODE TESTS RESULT OUT OF REFERENCE UNITS RANGE LAB L501.080 70-110 mg/dL High BEDSIDE GLU 226 Result Comment: MANAGEMENT OF PATIENT CARE PER NURSING PROTOCOL Performed By: #### L501.080 #### [facility] Point of Care [address] [place] [address] SURGICAL PATHOLOGY Observed: 02/25/2018 Status: F Source: [place] 11:35 AM [facility] REPOSITORY Specimen originated from [facility] Specimen #: [id number] Submitting Physician: MICHEL JETT FINAL DIAGNOSIS A. Skin, left temporal scalp, shave biopsy - Basal cell carcinoma, micronodular type. B. Skin, right vertex, shave biopsy - Basal cell carcinoma, superficial type. C. Skin, left occipital scalp, shave biopsy - Blue nevus. ALVARADO/TINY/rock 02/28/2018 Venus Soto M.D. (Electronic Signature) SPECIMEN SUBMITTED A: SKIN, LEFT TEMPORAL SCALP, SHAVE BIOPSY B: SKIN, RIGHT VERTEX, SHAVE BIOPSY C: SKIN, LEFT OCCIPITAL SCALP, SHAVE BIOPSY CLINICAL DATA A) AND B) R/O BCC C) R/O BLUE NEVUS, 2 PIECES GROSS DESCRIPTION A. Received in alcoholic formalin is a 0.7 x 0.7 x <0.1 cm shave of skin. On the skin surface is a 0.7 cm, lim slightly elevated area. The specimen is bisected. Totally submitted in formalin in one cassette. B. Received in alcoholic formalin is a 0.7 x 0.6 x <0.1 cm shave of skin. On the skin surface is a 0.6 cm, lim flat area. The specimen is bisected. Totally submitted in formalin in one cassette. C. Received in alcoholic formalin are two segments of lim soft skin aggregating to 1.0 x 0.9 x <0.1 cm. Specimen is sectioned. Totally submitted in formalin in one cassette. Gross examination performed at [facility], [address] [place] [address] FFS 02/25/2018 8:01:43 PM Date of Report: 02/28/2018 Date of Procedure: 02/25/2018 Date of Receipt: 02/25/2018 Submitted by: MICHEL JETT Location: [facility] D[facility] Diagnostic interpretation performed at [facility], [address] [place] [address]. PROGRESS Observed: 02/25/2018 Status: COMPLETED Source: [place] 10:53 AM [facility] REPOSITORY HNO ID: [id number] Author: Sara Portillo (Order Checker) Sarah Service: (none) Author Type: Nurse Practitioner Type: Progress Notes Filed: 02/25/2018 11:42 AM Note Text: SKIN EXAM CC: This patient is a 57 year old male. Patient presents with: Skin Check SELF HPI: -Waist - Up Exam -No specific concerns -Personal History of Skin Cancer: No -Personal History of Atypical Nevi: No -Personal History of Blistering Sunburns:No -Family History of Skin Cancer: No SOC: Social History Marital status: Single Spouse name: Years of education: Number of children: 0 Social History Main Topics Smoking status: Former Smoker Packs/day: 0.50 Years: 40.00 Types: Cigarettes Start date: 08/10/2013 Quit date: 03/19/2014 Smokeless tobacco: Never Used Alcohol use: No Drug use: No MEDS: Current outpatient prescriptions: Current Outpatient Prescriptions on File Prior to Visit: brimonidine (ALPHAGAN) 0.2 % ophthalmic solution Use 1 Drop in both eyes twice daily. latanoprost (XALATAN) 0.005 % ophthalmic solution Use 1 Drop in both eyes daily at bedtime. timolol maleate (TIMOPTIC) 0.5 % ophthalmic solution Use 1 Drop in both eyes every morning. insulin regular human, CONCENTRATED 500 UNIT/ML, (HUMULIN R) 500 unit/mL soln 145 units with breakfast, 95 units with lunch, and 80 units with dinner clopidogrel (PLAVIX) 75 mg tablet Take 75 mg by mouth once daily. fluorouracil (EFUDEX) 2 % soln Applied to the affected areas of the face and scalp twice daily for 2 weeks on 2 weeks off and repeat gabapentin (NEURONTIN) 800 mg tablet Take 1 tablet by mouth daily at bedtime. nebivolol (BYSTOLIC) 10 mg tablet Take 1 tablet by mouth once daily. ferrous sulfate 325 mg (65 mg iron) EC tablet Take 1 tablet by mouth twice daily. losartan (COZAAR) 50 mg tablet Take 1 tablet by mouth once daily. atorvastatin (LIPITOR) 10 mg tablet Take 10 mg by mouth once daily. ERGOCALCIFEROL, VITAMIN D2, (VITAMIN D2 ORAL) Take 50,000 Units by mouth Once Weekly with Dialysis. MAGNESIUM HYDROXIDE/AL HYDROX (MYLANTA ORAL) Take 15 mL by mouth every 6 hours as needed. fluticasone (FLONASE) 50 mcg/actuation nasal spray Use [address] [place] in each nostril once daily. gabapentin (NEURONTIN) 600 mg tablet Take 600 mg by mouth daily with breakfast. ascorbic acid, vitamin C, (VITAMIN C) 500 mg tablet Take 500 mg by mouth once daily. apixaban (ELIQUIS) 2.5 mg tab tab(s) Take 2.5 mg by mouth twice daily. magnesium hydroxide (MILK OF MAGNESIA) 400 mg/5 mL suspension Take 30 mL by mouth once daily as needed. multivitamin tablet Take 1 tablet by mouth once daily. acetaminophen 325 mg tablet Take 650 mg by mouth every 4 hours as needed. Omeprazole 20 mg TbEC Take 40 mg by mouth once daily. zinc Take 220 mg by mouth once daily. No current facility-administered medications on file prior to visit. ALLERGY: ALLERGIES Allergen Reactions - Claude Inhibitors Other: See Comments Angioedema. - Bees Rash - Flagyl [Metronidazo* Other: See Comments Gets sick PAST MEDICAL HISTORY: No chronic skin disease or skin cancer FAMILY HISTORY: No chronic skin disease or skin cancer REVIEW OF SYSTEMS: Patient feels well and denies any recent fevers, chills, or nightsweats. PHYSICAL EXAM: The patient is a pleasant male in no distress. Patient appears healthy, well developed, well nourished and in otherwise good health. Alert and oriented x 3. A skin exam was done of the Scalp, Face including eyelids/ lips, Ears, Neck, Chest, Abdomen, Back, Arms, Hands including nails [place] Skin Type II Scattered reticulated light lim macules in sun distribution Regularly pigmented and symmetric brown macules and papules on the head, trunk and upper extremities Scattered small melara red papules throughout Numerous scattered brown stuck on papules and plaques on the head, trunk and upper extremities (A) left temporal scalp: ~0.8 cm erythematous and brown papule with scale (B) right vertex: 0.4 cm pearly pink papule (C) left occipital: 0.3 cm dark calle/black papule A/P: 1. Neoplasm of Uncertain Behavior: Recommend Biopsy Today PROCEDURE: Shave of lesion to establish and confirm diagnosis: Photo taken: Yes INFORMED CONSENT: Risks, benefits, alternatives, and personnel discussed with patient. Informed consent obtained for Biopsy site(s) as identified and confirmed with patient. Patient agrees and wants to proceed. Derm Nurse Practitioner: Sara Smith APRN.CNP PREOPERATIVE/PROCEDURAL VERIFICATION: Patient verified by: Name and Date of Procedure to be performed: Shave biopsy Site of the procedure confirmed:Yes Site(s): A) Left Temporal Scalp, B) Right Vertex, and C) Left Occipital Scalp Staff involved: Lindsey Smith APRN.CNP and Laya Estevez Ma Relevant documentation, images, implants or special equipment present: Yes MARKING THE SITE: Procedural site verified by:Provider physically marking the site on or near incision site, with persistent marker and remains visible once patient prepped. PROCEDURAL TIME OUT: Time out verification includes: Audible time-out documented: Yes. Time: 11:05 am Two Patient Identifiers Correct side and site marking Accurate Consent Agreement on the procedure to be done Correct Positioning Sign Out Discussion: Completed The area was cleaned and prepped in a sterile fashion. Area anesthetized with 1% lidocaine with epinephrine. A shave of lesion performed. 3 specimen(s) from A) Left Temporal Scalp, B) Right Vertex, and C) Left Occipital Scalp - 2 pieces sent for pathology to r/o A) and B) BCC and C) Blue Nevus. 50% ALCL and bandaging applied. Written and verbal wound care instructions given. The documentation for this note was completed by Laya Estevez Ma acting as scribe for Sara Smith APRN.CNP. February 25, 2018 11:31 AM. Laya Estevez Ma UNIVERSAL PROTOCOL / SAFETY CHECKLIST Procedure to be performed: Shave Biopsy x 3 Sign in Communication: Completed Time Out: Team Confirms the Correct Patient, Correct Procedure, Correct Site and Site Marking, Correct Position (if applicable), Prep and Dry Time (if applicable). Time: 11:05 am Affirmation of Time Out: YES Sign Out Discussion: Completed Laya Estevez Ma 2. Solar Lentigines, Clinically Benign Appearing Nevi, Angiomas, Seborrheic Keratoses: Recommend high SPF sunscreens and reapplication. Reassurance on benign nature of lesions and recommend routine self-examinations. Sunscreen (SPF 30 or higher) and sun protection reviewed. The ABCDEs of melanoma were reviewed with the patient and the importance of routine self-examination of moles was emphasized. Should any areas change in size, shape or color, bleed or become tender, the patient will contact the office for evaluation sooner than their interval appointment. Patient verbalizes understanding and agrees with treatment plan. Follow up in 1 year and PRN The documentation for this note was completed by Laya Estevez Ma acting as scribe for Sara Smith APRN.CNP. February 25, 2018 10:53 AM. Sara Smith APRN.CNP Attending: Dr. Andrea I agree with the ROS and Past Histories independently gathered by the clinical technical support technician and the remaining scribed note accurately describes my personal service to the patient. CNOV Observed: 02/25/2018 Status: COMPLETED Source: [place] 10:45 AM [facility] REPOSITORY Office Visit (DERMIN) DEL BARRIOS ([id number]) 1960 M [facility] Date Time Provider Department 02/25/18 10:45 AM SARA SMITH) DERMANGELLA During your visit today, we recorded the following information about you: Sara Smith APRN.CNP 02/25/2018 11:42 AM Signed SKIN EXAM CC: This patient is a 57 year old male. Patient presents with: Skin Check SELF HPI: -Waist - Up Exam -No specific concerns -Personal History of Skin Cancer: No -Personal History of Atypical Nevi: No -Personal History of Blistering Sunburns:No -Family History of Skin Cancer: No SOC: Social History Marital status: Single Spouse name: Years of education: Number of children: 0 Social History Main Topics Smoking status: Former Smoker Packs/day: 0.50 Years: 40.00 Types: Cigarettes Start date: 08/10/2013 Quit date: 03/19/2014 Smokeless tobacco: Never Used Alcohol use: No Drug use: No MEDS: Current outpatient prescriptions: Current Outpatient Prescriptions on File Prior to Visit: brimonidine (ALPHAGAN) 0.2 % ophthalmic solution Use 1 Drop in both eyes twice daily. latanoprost (XALATAN) 0.005 % ophthalmic solution Use 1 Drop in both eyes daily at bedtime. timolol maleate (TIMOPTIC) 0.5 % ophthalmic solution Use 1 Drop in both eyes every morning. insulin regular human, CONCENTRATED 500 UNIT/ML, (HUMULIN R) 500 unit/mL soln 145 units with breakfast, 95 units with lunch, and 80 units with dinner clopidogrel (PLAVIX) 75 mg tablet Take 75 mg by mouth once daily. fluorouracil (EFUDEX) 2 % soln Applied to the affected areas of the face and scalp twice daily for 2 weeks on 2 weeks off and repeat gabapentin (NEURONTIN) 800 mg tablet Take 1 tablet by mouth daily at bedtime. nebivolol (BYSTOLIC) 10 mg tablet Take 1 tablet by mouth once daily. ferrous sulfate 325 mg (65 mg iron) EC tablet Take 1 tablet by mouth twice daily. losartan (COZAAR) 50 mg tablet Take 1 tablet by mouth once daily. atorvastatin (LIPITOR) 10 mg tablet Take 10 mg by mouth once daily. ERGOCALCIFEROL, VITAMIN D2, (VITAMIN D2 ORAL) Take 50,000 Units by mouth Once Weekly with Dialysis. MAGNESIUM HYDROXIDE/AL HYDROX (MYLANTA ORAL) Take 15 mL by mouth every 6 hours as needed. fluticasone (FLONASE) 50 mcg/actuation nasal spray Use 1 [place] in each nostril once daily. gabapentin (NEURONTIN) 600 mg tablet Take 600 mg by mouth daily with breakfast. ascorbic acid, vitamin C, (VITAMIN C) 500 mg tablet Take 500 mg by mouth once daily. apixaban (ELIQUIS) 2.5 mg tab tab(s) Take 2.5 mg by mouth twice daily. magnesium hydroxide (MILK OF MAGNESIA) 400 mg/5 mL suspension Take 30 mL by mouth once daily as needed. multivitamin tablet Take 1 tablet by mouth once daily. acetaminophen 325 mg tablet Take 650 mg by mouth every 4 hours as needed. Omeprazole 20 mg TbEC Take 40 mg by mouth once daily. zinc Take 220 mg by mouth once daily. No current facility-administered medications on file prior to visit. ALLERGY: ALLERGIES Allergen Reactions - Claude Inhibitors Other: See Comments Angioedema. - Bees Rash - Flagyl [Metronidazo* Other: See Comments Gets sick PAST MEDICAL HISTORY: No chronic skin disease or skin cancer FAMILY HISTORY: No chronic skin disease or skin cancer REVIEW OF SYSTEMS: Patient feels well and denies any recent fevers, chills, or nightsweats. PHYSICAL EXAM: The patient is a pleasant male in no distress. Patient appears healthy, well developed, well nourished and in otherwise good health. Alert and oriented x 3. A skin exam was done of the Scalp, Face including eyelids/ lips, Ears, Neck, Chest, Abdomen, Back, Arms, Hands including nails [place] Skin Type II Scattered reticulated light lim macules in sun distribution Regularly pigmented and symmetric brown macules and papules on the head, trunk and upper extremities Scattered small melara red papules throughout Numerous scattered brown stuck on papules and plaques on the head, trunk and upper extremities (A) left temporal scalp: ~0.8 cm erythematous and brown papule with scale (B) right vertex: 0.4 cm pearly pink papule (C) left occipital: 0.3 cm dark calle/black papule A/P: 1. Neoplasm of Uncertain Behavior: Recommend Biopsy Today PROCEDURE: Shave of lesion to establish and confirm diagnosis: Photo taken: Yes INFORMED CONSENT: Risks, benefits, alternatives, and personnel discussed with patient. Informed consent obtained for Biopsy site(s) as identified and confirmed with patient. Patient agrees and wants to proceed. Derm Nurse Practitioner: Sara Smith APRN.CNP PREOPERATIVE/PROCEDURAL VERIFICATION: Patient verified by: Name and Date of Procedure to be performed: Shave biopsy Site of the procedure confirmed:Yes Site(s): A) Left Temporal Scalp, B) Right Vertex, and C) Left Occipital Scalp Staff involved: Lindsey Smith APRN.CNP and Laya Estevez Ma Relevant documentation, images, implants or special equipment present: Yes MARKING THE SITE: Procedural site verified by:Provider physically marking the site on or near incision site, with persistent marker and remains visible once patient prepped. PROCEDURAL TIME OUT: Time out verification includes: Audible time-out documented: Yes. Time: 11:05 am Two Patient Identifiers Correct side and site marking Accurate Consent Agreement on the procedure to be done Correct Positioning Sign Out Discussion: Completed The area was cleaned and prepped in a sterile fashion. Area anesthetized with 1% lidocaine with epinephrine. A shave of lesion performed. 3 specimen(s) from A) Left Temporal Scalp, B) Right Vertex, and C) Left Occipital Scalp - 2 pieces sent for pathology to r/o A) and B) BCC and C) Blue Nevus. 50% ALCL and bandaging applied. Written and verbal wound care instructions given. The documentation for this note was completed by Laya Estevez Ma acting as scribe for Sara Smith APRN.CNP. February 25, 2018 11:31 AM. Laya Estevez Ma UNIVERSAL PROTOCOL / SAFETY CHECKLIST Procedure to be performed: Shave Biopsy x 3 Sign in Communication: Completed Time Out: Team Confirms the Correct Patient, Correct Procedure, Correct Site and Site Marking, Correct Position (if applicable), Prep and Dry Time (if applicable). Time: 11:05 am Affirmation of Time Out: YES Sign Out Discussion: Completed Laya Estevez Ma 2. Solar Lentigines, Clinically Benign Appearing Nevi, Angiomas, Seborrheic Keratoses: Recommend high SPF sunscreens and reapplication. Reassurance on benign nature of lesions and recommend routine self-examinations. Sunscreen (SPF 30 or higher) and sun protection reviewed. The ABCDEs of melanoma were reviewed with the patient and the importance of routine self-examination of moles was emphasized. Should any areas change in size, shape or color, bleed or become tender, the patient will contact the office for evaluation sooner than their interval appointment. Patient verbalizes understanding and agrees with treatment plan. Follow up in 1 year and PRN The documentation for this note was completed by Laya Estevez Ma acting as scribe for Sara Smith APRN.CNP. February 25, 2018 10:53 AM. Sara Smith APRN.ATHLETIC FIELD CUSTODIAN Attending: Dr. Andrea I agree with the ROS and Past Histories independently gathered by the clinical technical support technician and the remaining scribed note accurately describes my personal service to the patient. Laya Estevez Ma 02/25/2018 11:11 AM Signed [facility] D[facility]MATOLOG[facility]PART[facility] ? Preventing harmful UV exposure is carlos to reducing your chances of skin cancer. Recommend avoiding unecessary sun exposure, seeking shade where possible, wearing protective clothing and applying sunscreen regularly. ? Recommend daily use of Broad Spectrum sunscreen at least SPF 30 or higher. Sunscreen should be reapplied every 2 hours you are out in the sun. It should be reapplied every hour if you are sweating or swimming. This will help protect against sunburn, skin cancer and premature aging. ? Monthly self-examinations are recommended. Should any moles change in size, shape or color, bleed or become tender, or if you see a spot that looks suspicious, please contact the office for evaluation sooner than your interval appointment. ? Follow up in 1 year or sooner with concerns CARE OF BIOPSY SITE 1. Wash your hands with soap and water. 2. Cleanse the biopsy site with antibacterial soap. 3. Thoroughly dry the area and apply a small amount of Vaseline or Aquaphor to keep area greasy at all times (this prevents a scab from forming). 4. PLEASE DO NOT use polysporin, Bacitracin, triple antibiotic or similar ointments. 5. Place a small dressing or band-aid over the wound until the wound is healed. (Studies show that wounds heal better when covered with ointment and a dressing). If you have any questions or concerns, please contact the office at [phone]. Referring Provider: SELF [[id number]] Allergies As of Date: 02/25/2018 Noted Allergy Reaction CLAUDE INHIBITORS 01/28/2014 14 - Other: See Comments Comments: Angioedema. BEES 07/24/2013 2 - Rash FLAGYL (METRONIDAZOLE) 01/16/2016 14 - Other: See Comments Comments: Gets sick Date Reviewed: 02/25/2018 Reviewed by: Laya Estevez Ma - Fully Assessed Reason for Visit: Skin Check [1179] Primary Visit Diagnosis:Neoplasm of uncertain behavior of skin [D48.5] Other Visit Diagnoses:Multiple benign melanocytic nevi [D22.9] Angioma of skin [D18.01] Solar lentigo [L81.4] Seborrheic keratosis [L82.1] Order(s):SURGICAL PATHOLOGY [[id number]] Order #: [id number] Prescriptions as of 02/25/2018 Sig: BRIMONIDINE 0.2 % EYE DROPS Use 1 Drop in both eyes twice* LATANOPROST 0.005 % EYE DROPS Use 1 Drop in both eyes daily* TIMOLOL MALEATE 0.5 % EYE FAITH* Use 1 Drop in both eyes every* INSULIN REGULAR HUMAN U-500C* 145 units with breakfast, 95 * CLOPIDOGREL 75 MG TABLET Take 75 mg by mouth once narcisa* FLUOROURACIL 2 % TOPICAL SOLU* Applied to the affected areas* GABAPENTIN 800 MG TABLET Take 1 tablet by mouth daily * NEBIVOLOL 10 MG TABLET Take 1 tablet by mouth once d* FERROUS SULFATE 325 MG (65 MG* Take 1 tablet by mouth twice * LOSARTAN 50 MG TABLET Take 1 tablet by mouth once d* ATORVASTATIN 10 MG TABLET Take 10 mg by mouth once narcisa* VITAMIN D2 ORAL Take 50,000 Units by mouth On* MYLANTA ORAL Take 15 mL by mouth every 6 h* FLUTICASONE 50 MCG/ACTUATION * Use 1 [place] in each nostril o* GABAPENTIN 600 MG TABLET Take 600 mg by mouth daily wi* ASCORBIC ACID (VITAMIN C) 500* Take 500 mg by mouth once minnie* APIXABAN 2.5 MG TABLET Take 2.5 mg by mouth twice da* MAGNESIUM HYDROXIDE 400 MG/5 * Take 30 mL by mouth once narcsia* MULTIVITAMIN TABLET Take 1 tablet by mouth once d* ACETAMINOPHEN 325 MG TABLET Take 650 mg by mouth every 4 * OMEPRAZOLE 20 MG TABLET,DELAY* Take 40 mg by mouth once narcisa* ZINC Take 220 mg by mouth once minnie* Problem List As Of Date 02/25/2018 Noted Resolved Hypertension [I10] INVALID FOR* Priority: E Diabetic neuropathy (HCC) [E11.40] INVALID FOR* GERD (Gastroesophageal Reflux Disease) [K21.9] More... Hyperlipidemia [E78.5] Priority: F More... Proteinuria [R80.9] More... Pressure ulcer, other site(707.09) ([facility]) [L89.*INVALID FOR*01/28/2014 CKD III [N18.3] INVALID FOR* Priority: D More... Diabetic ulcer of right foot ([facility]) [E11.621, L9*INVALID FOR*01/28/2014 Wjmmg-ed-cdbxrhg kidney injury (HCC) [N17.9, N1*INVALID FOR*01/31/2014 Chronic anticoagulation [Z79.01] INVALID FOR* More... 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 Ulcer of ankle ([facility]) [L97.309] INVALID FOR* Peripheral vascular disease, unspecified ([facility]) *INVALID FOR* S/P BKA (below knee amputation) ([facility]) [Z89.519] INVALID FOR* Lymphedema [I89.0] INVALID FOR* Hearing loss [H91.90] INVALID FOR* Rhinitis [J31.0] INVALID FOR* Chronic serous otitis media [H65.20] INVALID FOR*05/28/2017 Chronic otitis media of right ear [H66.91] INVALID FOR*05/28/2017 Deep vein thrombosis [I82.409] INVALID FOR* Priority: B More... Morbid obesity ([facility]) [E66.01] INVALID FOR* Priority: G Open wound of right foot [S91.301A] INVALID FOR* Borderline glaucoma with ocular hypertension [H*INVALID FOR* Ulcer of toe of right foot ([facility]) [L97.519] INVALID FOR* Bilateral chronic serous otitis media [H65.23] INVALID FOR* Wound of left leg [S81.802A] INVALID FOR* Cellulitis [L03.90] INVALID FOR*01/21/2017 Diabetes mellitus ([facility]) [E11.9] INVALID FOR* Other instructions from your clinician: [facility] ? Preventing harmful UV exposure is carlos to reducing your chances of skin cancer. Recommend avoiding unecessary sun exposure, seeking shade where possible, wearing protective clothing and applying sunscreen regularly. ? Recommend daily use of Broad Spectrum sunscreen at least SPF 30 or higher. Sunscreen should be reapplied every 2 hours you are out in the sun. It should be reapplied every hour if you are sweating or swimming. This will help protect against sunburn, skin cancer and premature aging. ? Monthly self-examinations are recommended. Should any moles change in size, shape or color, bleed or become tender, or if you see a spot that looks suspicious, please contact the office for evaluation sooner than your interval appointment. ? Follow up in 1 year or sooner with concerns CARE OF BIOPSY SITE 1. Wash your hands with soap and water. 2. Cleanse the biopsy site with antibacterial soap. 3. Thoroughly dry the area and apply a small amount of Vaseline or Aquaphor to keep area greasy at all times (this prevents a scab from forming). 4. PLEASE DO NOT use polysporin, Bacitracin, triple antibiotic or similar ointments. 5. Place a small dressing or band-aid over the wound until the wound is healed. (Studies show that wounds heal better when covered with ointment and a dressing). If you have any questions or concerns, please contact the office at [phone]. Disposition: Return for Yearly Full Body Skin Exam. Follow-up and Disposition History Recorded Encounter Status:Closed by SARA SMITH CNP on 02/25/18 BEDSIDE GLUCOSE Collected: 02/24/2018 Status: F Source: RUDY 11:45 AM [facility] REPOSITORY TYPE CODE TESTS RESULT OUT OF REFERENCE UNITS RANGE LAB L501.080 70-110 mg/dL High BEDSIDE GLU 207 Result Comment: MANAGEMENT OF PATIENT CARE PER NURSING PROTOCOL Performed By: #### L501.080 #### [facility] Point of Care [address] [place] [address] BEDSIDE GLUCOSE Collected: 02/24/2018 Status: F Source: RUDY 9:39 AM [facility] REPOSITORY TYPE CODE TESTS RESULT OUT OF REFERENCE UNITS RANGE LAB L501.080 70-110 mg/dL High BEDSIDE GLU 242 Result Comment: MANAGEMENT OF PATIENT CARE PER NURSING PROTOCOL Performed By: #### L501.080 #### [facility] Point of Care [address] [facility] [place] [address] BEDSIDE GLUCOSE Collected: 02/23/2018 Status: F Source: RUDY 9:54 AM [facility] REPOSITORY TYPE CODE TESTS RESULT OUT OF REFERENCE UNITS RANGE LAB L501.080 70-110 mg/dL High BEDSIDE GLU 437 Result Comment: MANAGEMENT OF PATIENT CARE PER NURSING PROTOCOL Performed By: #### L501.080 #### [facility] Point of Care [address] [place] [address] BEDSIDE GLUCOSE Collected: 02/23/2018 Status: F Source: RUDY 9:19 AM [facility] REPOSITORY TYPE CODE TESTS RESULT OUT OF REFERENCE UNITS RANGE LAB L501.080 70-110 mg/dL High BEDSIDE GLU 444 Result Comment: MANAGEMENT OF PATIENT CARE PER NURSING PROTOCOL Performed By: #### L501.080 #### [facility] Point of Care [address] [place] [address] BEDSIDE GLUCOSE Collected: 02/22/2018 Status: F Source: RUDY 11:15 AM [facility] REPOSITORY TYPE CODE TESTS RESULT OUT OF REFERENCE UNITS RANGE LAB L501.080 70-110 mg/dL High BEDSIDE GLU 169 Result Comment: MANAGEMENT OF PATIENT CARE PER NURSING PROTOCOL Performed By: #### L501.080 #### [facility] Point of Care [address] [place] [address] BEDSIDE GLUCOSE Collected: 02/22/2018 Status: F Source: RUDY 9:18 AM [facility] REPOSITORY TYPE CODE TESTS RESULT OUT OF REFERENCE UNITS RANGE LAB L501.080 70-110 mg/dL High BEDSIDE GLU 166 Result Comment: MANAGEMENT OF PATIENT CARE PER NURSING PROTOCOL Performed By: #### L501.080 #### [facility] Point of Care [address] [place] [address] BEDSIDE GLUCOSE Collected: 02/21/2018 Status: F Source: RUDY 11:20 AM [facility] REPOSITORY TYPE CODE TESTS RESULT OUT OF REFERENCE UNITS RANGE LAB L501.080 70-110 mg/dL High BEDSIDE GLU 181 Result Comment: MANAGEMENT OF PATIENT CARE PER NURSING PROTOCOL Performed By: #### L501.080 #### [facility] Point of Care [address] [place] [address] BEDSIDE GLUCOSE Collected: 02/21/2018 Status: F Source: RUDY 9:22 AM [facility] REPOSITORY TYPE CODE TESTS RESULT OUT OF REFERENCE UNITS RANGE LAB L501.080 70-110 mg/dL High BEDSIDE GLU 261 Result Comment: MANAGEMENT OF PATIENT CARE PER NURSING PROTOCOL Performed By: #### L501.080 #### [facility] Point of Care [address] [place] [address] BEDSIDE GLUCOSE Collected: 02/18/2018 Status: F Source: ELSINORE 11:44 AM [facility] REPOSITORY TYPE CODE TESTS RESULT OUT OF REFERENCE UNITS RANGE LAB L501.080 70-110 mg/dL High BEDSIDE GLU 181 Result Comment: MANAGEMENT OF PATIENT CARE PER NURSING PROTOCOL Performed By: #### L501.080 #### [facility] Point of Care [address] [place] [address] BEDSIDE GLUCOSE Collected: 02/18/2018 Status: F Source: ELSINORE 9:51 AM [facility] REPOSITORY TYPE CODE TESTS RESULT OUT OF REFERENCE UNITS RANGE LAB L501.080 70-110 mg/dL High BEDSIDE GLU 183 Result Comment: MANAGEMENT OF PATIENT CARE PER NURSING PROTOCOL Performed By: #### L501.080 #### [facility] Point of Care [address] [place] [address] BEDSIDE GLUCOSE Collected: 02/17/2018 Status: F Source: ELSINORE 11:31 AM [facility] REPOSITORY TYPE CODE TESTS RESULT OUT OF REFERENCE UNITS RANGE LAB L501.080 70-110 mg/dL High BEDSIDE GLU 139 Result Comment: MANAGEMENT OF PATIENT CARE PER NURSING PROTOCOL Performed By: #### L501.080 #### [facility] Point of Care [address] [place] [address] BEDSIDE GLUCOSE Collected: 02/17/2018 Status: F Source: ELSINORE 9:31 AM [facility] REPOSITORY TYPE CODE TESTS RESULT OUT OF REFERENCE UNITS RANGE LAB L501.080 70-110 mg/dL High BEDSIDE GLU 186 Result Comment: MANAGEMENT OF PATIENT CARE PER NURSING PROTOCOL Performed By: #### L501.080 #### [facility] Point of Care [address] [place] [address] BEDSIDE GLUCOSE Collected: 02/16/2018 Status: F Source: RUDY 11:11 AM [facility] REPOSITORY TYPE CODE TESTS RESULT OUT OF RANGE REFERENCE UNITS LAB L501.080 70-110 mg/dL Normal BEDSIDE GLU 92 Result Comment: MANAGEMENT OF PATIENT CARE PER NURSING PROTOCOL Performed By: #### L501.080 #### [facility] Point of Care [address] [place] [address] BEDSIDE GLUCOSE Collected: 02/16/2018 Status: F Source: RUDY 9:13 AM [facility] REPOSITORY TYPE CODE TESTS RESULT OUT OF REFERENCE UNITS RANGE LAB L501.080 70-110 mg/dL High BEDSIDE GLU 129 Result Comment: MANAGEMENT OF PATIENT CARE PER NURSING PROTOCOL Performed By: #### L501.080 #### [facility] Point of Care [address] [place] [address] BEDSIDE GLUCOSE Collected: 02/15/2018 Status: F Source: RUDY 11:59 AM [facility] REPOSITORY TYPE CODE TESTS RESULT OUT OF REFERENCE UNITS RANGE LAB L501.080 70-110 mg/dL High BEDSIDE GLU 203 Result Comment: MANAGEMENT OF PATIENT CARE PER NURSING PROTOCOL Performed By: #### L501.080 #### [facility] Point of Care [address] [place] [address] BEDSIDE GLUCOSE Collected: 02/15/2018 Status: F Source: RUDY 10:04 AM [facility] REPOSITORY TYPE CODE TESTS RESULT OUT OF REFERENCE UNITS RANGE LAB L501.080 70-110 mg/dL High BEDSIDE GLU 271 Result Comment: MANAGEMENT OF PATIENT CARE PER NURSING PROTOCOL Performed By: #### L501.080 #### [facility] Point [facility] [address] [place] [address] BEDSIDE GLUCOSE Collected: 02/14/2018 Status: F Source: RUDY 11:06 AM [facility] REPOSITORY TYPE CODE TESTS RESULT OUT OF REFERENCE UNITS RANGE LAB L501.080 70-110 mg/dL High BEDSIDE GLU 133 Result Comment: MANAGEMENT OF PATIENT CARE PER NURSING PROTOCOL Performed By: #### L501.080 #### [facility] Point [facility] [address] [place] [address] BEDSIDE GLUCOSE Collected: 02/14/2018 Status: F Source: RUDY 9:11 AM [facility] REPOSITORY TYPE CODE TESTS RESULT OUT OF REFERENCE UNITS RANGE LAB L501.080 70-110 mg/dL High BEDSIDE GLU 157 Result Comment: MANAGEMENT OF PATIENT CARE PER NURSING PROTOCOL Performed By: #### L501.080 #### [facility] [address] [place] [address] OFFICE VISIT (INTERNAL Observed: 02/12/2018 Status: UNK Source: [facility]) 8:10 PM [facility] REPOSITORY Chief Complaint here for dm followup History of Present Illness b 1 cereal lunch ...mom s meal (like meals on wheels) dinner .. makes meal hgm fbs 152, 140 lunch 229, 113 pm 107, 225 hs 118, 172 goes to hyperbaric rx still still trying to get left stump to heal to then allow prosth. dr. aruna is veda dong. leg is better lives in apt. no fver or chest pains Review of Systems Constitutional: no fever and not feeling poorly. ENT: no sore throat and no hoarseness. Cardiovascular: no chest pain and no palpitations. Respiratory: no cough. Gastrointestinal: no abdominal pain and no nausea. Genitourinary: no dysuria. Integumentary: skin wound. Neurological: no headache and no dizziness. Active Problems Diabetes mellitus type 2, uncontrolled (250.02) (E11.65) HTN (hypertension) (401.9) (I10) Low testosterone (259.9) (E34.9) Social History Former smoker (V15.82) (Z87.891) quit smoking in august 2013 No alcohol use Single Allergies No Known Drug Allergies Recorded By: Diana Pond; 07/06/2013 9:31:07 AM Current Meds Accu-Chek Loretta Plus In Vitro Strip; USE 4 TIMES A DAY; Therapy: 05Nov2014 to (Last Rx:[id number]) Requested for: 30Fhb9310 Ordered Rx By: Sergo Victor; Dispense: 0 Days ; #:4 X 100 Strip Box; Refill: 3;For: Diabetes mellitus type 2, uncontrolled; SHASHA = N; Verified Transmission to [address]; Msg to Pharmacy: dx e 11.65 on insulin; Last Updated By: Edenilson Meade; 01/17/2018 7:45:29 PM Accu-Chek Loretta Plus w/Device Kit; USE DIRECTED; Therapy: 05Nov2014 to (Last Rx:05Nov2014) Requested for: 05Nov2014 Ordered Rx By: Sergo Victor; Dispense: 0 Days ; #:1 Kit; Refill: 0;For: Diabetes mellitus type 2, uncontrolled; SHASHA = N; Verified Transmission to [facility] [address]; Msg to Pharmacy: dx 250.02 on insulin Accu-Chek Multiclix Lancets Miscellaneous; Uses 4 daily; Therapy: 30Mar2013 to (Last Rx:[id number]) Requested for: 13Jan2018 Ordered Rx By: Sergo Victor; Dispense: 0 Days ; #:4 X 102 Miscellaneous Box; Refill: 3;For: Diabetes mellitus type 2, uncontrolled; SHASHA = N; Verified Transmission to [facility]; Msg to Pharmacy: dx e11.65 on insulin Accu-Chek Softclix Lancets Miscellaneous; use 4 times a day to check sugar; Therapy: 18Jan2017 to (Last Rx:17Jan2018) Requested for: 17Jan2018; Status: ACTIVE - Transmit to Pharmacy - Failed Ordered Rx By: Sergo Victor; Dispense: 0 Days ; #:4 X 100 Miscellaneous Box; Refill: 3;For: Diabetes mellitus type 2, uncontrolled; SHASHA = N; Failed Transmission to [address]; Msg to Pharmacy: dx e11.65 on insulin; Last Updated By: Edenilson Meade; 01/17/2018 8:24:13 PM BD Pen Needle Mini U/F 31G X 5 MM Miscellaneous; use 3 daily; Therapy: 18Jan2017 to (Last Rx:[id number]) Requested for: 24Kct8286 Ordered Rx By: Sergo Victor; Dispense: 0 Days ; #:3 X 100 Miscellaneous Box; Refill: 3;For: Diabetes mellitus type 2, uncontrolled; SHASHA = N; Verified Transmission to [address]; Last Updated By: [employer]; 01/18/2017 11:36:07 AM BD Pen Needle Short U/F 31G X 8 MM Miscellaneous; uses 6 daily; Therapy: 24Aug2017 to (Last Rx:[id number]) Requested for: 24Mcf1234 Ordered Rx By: Sergo Victor; Dispense: 0 Days ; #:6 X 100 Miscellaneous Box; Refill: 3;For: Diabetes mellitus type 2, uncontrolled; SHASHA = N; Verified Transmission to [facility]; Msg to Pharmacy: E11.65 on insulin Gabapentin 600 MG Oral Tablet; TAKE ONE TABLET BY MOUTH EVERY DAY; Therapy: 08Mar2017 to (Evaluate:57Mfi9553) Requested for: 19Piu8749; Last Rx:[id number] Ordered Rx By: Sergo Victor; Dispense: 90 Days ; #:90 TAB; Refill: 3;For: Diabetes mellitus type 2, uncontrolled; SHASHA = N; Verified Transmission to [address]; Last Updated By: [employer] 01/04/2018 2:26:30 PM Gabapentin 800 MG Oral Tablet; TAKE TWO TABLETS BY MOUTH EVERY NIGHT AT BEDTIME; Therapy: 18Jan2017 to (Evaluate:30Dec2018) Requested for: 44Ztd9743; Last Rx:46Frn2490 Ordered Rx By: Sergo Victor; Dispense: 90 Days ; #:180 TAB; Refill: 3;For: Diabetes mellitus type 2, uncontrolled; SHASHA = N; Verified Transmission to [address], ; Last Updated By: [employer]aur[employer] 01/04/2018 2:26:31 PM HumuLIN R U-500 KwikPen 500 UNIT/ML Subcutaneous Solution Pen-injector; inject 145 units in the am, 95 units at lunch and 80 units pre evening meal; Therapy: 10Tpv3954 to (Evaluate:03Jul2018) Requested for: 75Tjy8874; Last Rx:[id number] Ordered Rx By: Sergo Victor; Dispense: 90 Days ; #:66 ML; Refill: 1;For: Diabetes mellitus type 2, uncontrolled; SHASHA = N; Verified Transmission to [address]; Last Updated By: Edenilson Meade; 01/04/2018 2:25:05 PM NovoLOG FlexPen 100 UNIT/ML Subcutaneous Solution Pen-injector; INJECT 60 UNIT Daily; Therapy: 14Det2226 to (Last Rx:[id number]) Requested for: 40Rtw1040 Ordered Rx By: Sergo Victor; Dispense: 0 Days ; #:2 X 3 ML Pen (5 Pens); Refill: 5;For: Diabetes mellitus type 2, uncontrolled; SHASHA = N; Verified Transmission to [address]; Last Upda rebeka By: Edenilson Meade; 08/02/2017 10:08:38 AM TRUEplus Pen [place] 31G X 8 MM Miscellaneous; USE THREE DAILY DIRECTED; Therapy: 09Zol0073 to (Evaluate:28Sep2018) Requested for: 03Oct2017; Last Rx:03Oct2017 Ordered Rx By: Sergo Victor; Dispense: 90 Days ; #:300 EA; Refill: 3;For: Diabetes mellitus type 2, uncontrolled; SHASHA = N; Verified Transmission to [address]; Last Updated By: Edenilson Meade; 10/03/2017 8:04:51 PM Eliquis 2.5 MG Oral Tablet; TAKE ONE TABLET BY MOUTH TWICE DAILY; Therapy: 07Mar2015 to (Evaluate:03Jul2018) Requested for: 08Coz7937; Last Rx:[id number] Ordered Rx By: Sergo Victor; Dispense: 30 Days ; #:60 TAB; Refill: 5;For: Health Maintenance; SHASHA = N; Verified Transmission to [address]; Last Updated By: Edenilson Meade; 01/04/2018 2:25:12 PM Omeprazole 40 MG Oral Capsule Delayed Release; TAKE 1 CAPSULE Daily; Therapy: 98Kqi4094 to (Evaluate:25Jyf2461) Requested for: 52Nwz0684; Last Rx:77Pms3813 Ordered Rx By: Sergo Victor; Dispense: 90 Days ; #:90 Capsule Delayed Release; Refill: 3;For: Health Maintenance; SHASHA = N; Verified Transmission to [address]; Last Updated By: Miguelangel Meade[employer]; 01/08/2018 1:14:35 PM Vitamin D (Ergocalciferol) 33796 UNIT Oral Capsule; TAKE ONE CAPSULE BY MOUTH ONCE A WEEK; Therapy: 07Apr2015 to (Evaluate:23Zkt4594) Requested for: 03Oct2017; Last Rx:03Oct2017 Ordered Rx By: Sergo Victor; Dispense: 84 Days ; #:12 Capsule; Refill: 0;For: Health Maintenance; SHASHA = N; Verified Transmission to [address]; Last Updated By: Miguelangel MeadePrim[employer]; 10/03/2017 8:09:58 PM Bystolic 10 MG Oral Tablet; TAKE ONE TABLET BY MOUTH ONCE DAILY; Therapy: 08Oxn7158 to (Evaluate:62Laf1047) Requested for: 70Aoe5242; Last Rx:[id number] Ordered Rx By: Sergo Victor; Dispense: 90 Days ; #:90 TAB; Refill: 3;For: HTN (hypertension); SHASHA = N; Verified Transmission to [address]; Last Updated By: Miguelangel MeadePrim[employer]; 01/04/2018 2:25:08 PM Losartan Potassium 50 MG Oral Tablet; TAKE 1 TABLET DAILY; Therapy: 90Cjt8224 to (Evaluate:19Jyx2482) Requested for: 08Mar2017; Last Rx:08Mar2017 Ordered Rx By: Sergo Victor; Dispense: 90 Days ; #:90 Tablet; Refill: 3;For: HTN (hypertension); SHASHA = N; Verified Transmission to [address]; Last Updated By: Maurizio MeadeZapMecheepPrimet [employer]; 03/08/2017 3:16:43 PM Accu-Chek Softclix Lancet Dev KIT; Therapy: 11Nov2016 to Recorded Rx By: JUAN; Dispense: 30 Days ; #:1 KIT; Refill: 0; SHASHA = N; Record; Last Updated By: Sergo Victor; 08/02/2017 9:59:04 AM Atorvastatin Calcium 40 MG Oral Tablet; Therapy: 01Oct2017 to Recorded Rx By: KOBE; Dispense: 30 Days ; #:30 TABS; Refill: 0; SHASHA = N; Record; Last Updated By: Diana Pond; 11/05/2017 11:14:55 AM Baclofen 10 MG Oral Tablet; Therapy: 79Ltv2765 to Recorded Rx By: KOBE; Dispense: 30 Days ; #:30 TABS; Refill: 0; SHASHA = N; Record; Last Updated By: Diana Pond; 11/05/2017 11:14:55 AM Brimonidine Tartrate 0.2 % Ophthalmic Solution; Therapy: 25Nov2014 to Recorded Dispense: 30 Days ; #:5 SOLN; Refill: 0; SHASHA = N; Record; Last Updated By: Sergo Victor; 05/28/2015 10:31:19 AM Clopidogrel Bisulfate 75 MG Oral Tablet; Therapy: 95Eap1519 to Recorded Rx By: EDEN; Dispense: 90 Days ; #:90 TABS; Refill: 0; SHASHA = N; Record; Last Updated By: Diana Pond; 11/05/2017 11:14:55 AM Famotidine 40 MG Oral Tablet; Therapy: 01Oct2017 to Recorded Rx By: KOBE; Dispense: 30 Days ; #:30 TABS; Refill: 0; SHASHA = N; Record; Last Updated By: Diana Pond; 11/05/2017 11:14:55 AM Ferrex 150 150 MG Oral Capsule; TAKE ONE CAPSULE BY MOUTH ONCE DAILY; Therapy: 04Oct2017 to Recorded Rx By: Kobe; Dispense: 30 Days ; #:30 CAPS; Refill: 0; SHASHA = N; Record; Last Updated By: Diana Pond; 11/05/2017 11:14:55 AM Fluorouracil 2 % External Solution; Therapy: 19Hey4112 to Recorded Rx By: SOLO; Dispense: 10 Days ; #:10 SOLN; Refill: 0; SHASHA = N; Record; Last Updated By: Sergo Victor; 08/02/2017 9:59:04 AM HumaLOG KwikPen 100 UNIT/ML Subcutaneous Solution Pen-injector; Therapy: 77Jqm4314 to Recorded Rx By: LETHA; Dispense: 50 Days ; #:30 SOPN; Refill: 0; SHASHA = N; Record; Last Updated By: Diana Pond; 11/05/2017 11:14:55 AM HumuLIN R 100 UNIT/ML Injection Solution; Therapy: 30Sep2016 to Recorded Rx By: JUAN; Dispense: 6 Days ; #:3 SOLN; Refill: 0; SHASHA = N; Record; Last Updated By: Sergo Victor; 02/11/2018 11:15:27 AM Jardiance 25 MG Oral Tablet; Therapy: 01Oct2017 to Recorded Rx By: KOBE; Dispense: 30 Days ; #:30 TABS; Refill: 0; SHASHA = N; Record; Last Updated By: Diana Pond; 11/05/2017 11:14:55 AM Latanoprost 0.005 % Ophthalmic Solution; Therapy: 18Jun2015 to Recorded Dispense: 25 Days ; #:2 SOLN; Refill: 0; SHASHA = N; Record; Last Updated By: Diana Pond; 03/26/2016 3:55:28 PM NovoFine Autocover 30G X 8 MM Miscellaneous; Therapy: 11Nov2016 to Recorded Rx By: JUAN; Dispense: 28 Days ; #:100 MISC; Refill: 0; SHASHA = N; Record; Last Updated By: Sergo Victor; 08/02/2017 9:59:04 AM Tradjenta 5 MG Oral Tablet; Therapy: 01Oct2017 to Recorded Rx By: KOBE; Dispense: 30 Days ; #:30 TABS; Refill: 0; SHASHA = N; Record; Last Updated By: Diana Pond; 02/11/2018 11:42:07 AM Trulicity 1.5 MG/0.5ML Subcutaneous Solution Pen-injector; Therapy: 01Oct2017 to Recorded Rx By: KOBE; Dispense: 28 Days ; #:2 SOPN; Refill: 0; SHASHA = N; Record; Last Updated By: Diana Pond; 11/05/2017 11:14:55 AM Vitals Vital Signs Recorded: 11Feb2018 10:21AM Beceisyhptu54.7 F, Temporal Heart Rate88 Uqerpqet286 Evtiyezbt08 O2 Iruyiltwzp52, RA Physical Exam in wheel chair cor rrr abd soft obese left bka r. leg wrapped chest clear Results/Data Basic Metabolic Szplz43Wvu7583 12:30PMSergo Victor Test NameResultFlagReference Glucose, Unijb227 mg/dLH74 - 99 Sodium, Sfsdl570 mmol/L136 - 145 POTASSIUM4.6 mmol/L3.5 - 5.3 Chloride, Qvwgg939 mmol/L98 - 107 Bicarbonate, Serum27 mmol/L21 - 32 Anion Gap, Serum15 mmol/L10 - 20 Blood Urea Nitrogen, Serum46 mg/dLH6 - 23 CREATININE1.70 mg/dLHSee Below Reference Range: 0.50 - 1.30 GFR Non Vtrpsqtc62 mL/min/1.73m2A>60 GFR Begtjobz60 mL/min/1.73m2A>60 CALCULATIONS OF ESTIMATED GFR ARE PERFORMED USING THE MDRD STUDY EQUATION FOR THE IDMS-TRACEABLE CREATININE METHODS. CLIN CHEM 2007;53:766-72 Calcium, Serum9.2 mg/dL8.6 - 10.6 IO Hgb O2N59Gpw4989 11:32AMNSergo carl Test NameResultFlagReference IO Hgb A1c6.74.4-6.4% IO glucose, blood, finger stick via hand held kwsyyrx68Qfo5171 11:25AMNekSergo ware Test NameResultFlagReference IO Fingerstick / Blood Joryhvv32772389ly/dL Diagnoses/Problems Diabetes mellitus type 2, uncontrolled (250.02) (E11.65) Encounter for preventive health examination (V70.0) (Z00.00) Orders Diabetes mellitus type 2, uncontrolled Basic Metabolic Panel; Source:Blood (BLD); Status:Resulted - Requires Verification; Done: 11Feb2018 12:30PM Performed:[facility]; Due:99Fem9675;Ordered; For:Diabetes mellitus type 2, uncontrolled; Ordered By:Sergo Victor; IO glucose, blood, finger stick via hand held monitor; Status:Resulted - Requires Verification; Done: 11Feb2018 11:25AM Performed:In Office; Due:57Htf4561; Last Updated By:Diana Pond; 02/11/2018 11:25:12 AM;Ordered; For:Diabetes mellitus type 2, uncontrolled; Ordered By:Sergo Victor; IO Hgb A1C; Status:Resulted - Requires Verification; Done: 11Feb2018 11:32AM Performed:In Office; Due:12May2018; Last Updated By:Diana Pond; 02/11/2018 11:32:28 AM;Ordered; For:Diabetes mellitus type 2, uncontrolled; Ordered By:Sergo Victor; Health Maintenance Administered: Flulaval Quadrivalent 0.5 ML Intramuscular Suspension Prefilled Syringe For: Health Maintenance; Ordered By:Sergo Victor; Effective Date:11Feb2018; Administered by: Diana Pond: 02/11/2018 11:50:00 AM; Last Updated By: Diana Pond; 02/11/2018 11:50:36 AM Unlinked Stop: HumuLIN R 100 UNIT/ML Injection Solution Rx By: JUAN; Dispense: 6 Days ; #:3 SOLN; Refill: 0; SHASHA = N; Record; Last Updated By: Sergo Victor; 02/11/2018 11:15:27 AM Stop: Tradjenta 5 MG Oral Tablet Rx By: KOBE; Dispense: 30 Days ; #:30 TABS; Refill: 0; SHASHA = N; Record; Last Updated By: Sergo Victor; 02/11/2018 11:42:07 AM Provider Impressions dm c improved control complex wounds ..sees dr. lux Patient Discussion/Summary a1c 6.7 today, same program avoid animal fat in meals sugar 170 now post meal. followup [address] reese flu owen. End of Encounter Meds Accu-Chek Loretta Plus In Vitro Strip; USE 4 TIMES A DAY; Therapy: 05Nov2014 to (Last Rx:[id number]) Requested for: 17Jan2018 Ordered Accu-Chek Loretta Plus w/Device Kit; USE DIRECTED; Therapy: 05Nov2014 to (Last Rx:05Nov2014) Requested for: 05Nov2014 Ordered Accu-Chek Multiclix Lancets Miscellaneous; Uses 4 daily; Therapy: 30Mar2013 to (Last Rx:[id number]) Requested for: 13Jan2018 Ordered Accu-Chek Softclix Lancet Dev KIT; Therapy: 11Nov2016 to Recorded Accu-Chek Softclix Lancets Miscellaneous; use 4 times a day to check sugar; Therapy: 41Jqq8284 to (Last Rx:[id number]) Requested for: 15Eji0999; Status: ACTIVE - Transmit to Pharmacy - Failed Ordered Atorvastatin Calcium 40 MG Oral Tablet; Therapy: 01Oct2017 to Recorded Baclofen 10 MG Oral Tablet; Therapy: 84Tsd7807 to Recorded BD Pen Needle Mini U/F 31G X 5 MM Miscellaneous; use 3 daily; Therapy: 18Jan2017 to (Last Rx:[id number]) Requested for: 18Jan2017 Ordered BD Pen Needle Short U/F 31G X 8 MM Miscellaneous; uses 6 daily; Therapy: 24Aug2017 to (Last Rx:[id number]) Requested for: 13Jan2018 Ordered Brimonidine Tartrate 0.2 % Ophthalmic Solution; Therapy: 25Nov2014 to Recorded Bystolic 10 MG Oral Tablet; TAKE ONE TABLET BY MOUTH ONCE DAILY; Therapy: 98Pdr0288 to (Evaluate:91Cfi4405) Requested for: 70Fck1614; Last Rx:[id number] Ordered Clopidogrel Bisulfate 75 MG Oral Tablet; Therapy: 22Mar2017 to Recorded Eliquis 2.5 MG Oral Tablet; TAKE ONE TABLET BY MOUTH TWICE DAILY; Therapy: 07Mar2015 to (Evaluate:03Jul2018) Requested for: 77Obk1586; Last Rx:[id number] Ordered Famotidine 40 MG Oral Tablet; Therapy: 01Oct2017 to Recorded Ferrex 150 150 MG Oral Capsule; TAKE ONE CAPSULE BY MOUTH ONCE DAILY; Therapy: 04Oct2017 to Recorded Fluorouracil 2 % External Solution; Therapy: 26Jan2017 to Recorded Gabapentin 600 MG Oral Tablet; TAKE ONE TABLET BY MOUTH EVERY DAY; Therapy: 08Mar2017 to (Evaluate:08Wym7928) Requested for: 59Oig3797; Last Rx:[id number] Ordered Gabapentin 800 MG Oral Tablet; TAKE TWO TABLETS BY MOUTH EVERY NIGHT AT BEDTIME; Therapy: 76Yte8065 to (Evaluate:80Iss9193) Requested for: 34Abg7221; Last Rx:[id number] Ordered HumaLOG KwikPen 100 UNIT/ML Subcutaneous Solution Pen-injector; Therapy: 02Jns8904 to Recorded HumuLIN R U-500 KwikPen 500 UNIT/ML Subcutaneous Solution Pen-injector; inject 145 units in the am, 95 units at lunch and 80 units pre evening meal; Therapy: 36Lrk9197 to (Evaluate:03Jul2018) Requested for: 00Srz1945; Last Rx:[id number] Ordered Jardiance 25 MG Oral Tablet; Therapy: 01Oct2017 to Recorded Latanoprost 0.005 % Ophthalmic Solution; Therapy: 18Jun2015 to Recorded Losartan Potassium 50 MG Oral Tablet; TAKE 1 TABLET DAILY; Therapy: 50Oim9039 to (Evaluate:80Sdv2099) Requested for: 08Mar2017; Last Rx:08Mar2017 Ordered NovoFine Autocover 30G X 8 MM Miscellaneous; Therapy: 11Nov2016 to Recorded NovoLOG FlexPen 100 UNIT/ML Subcutaneous Solution Pen-injector; INJECT 60 UNIT Daily; Therapy: 38Ztb5191 to (Last Rx:[id number]) Requested for: 40Fnl5139 Ordered Omeprazole 40 MG Oral Capsule Delayed Release; TAKE 1 CAPSULE Daily; Therapy: 63Hnm6369 to (Evaluate:84Rns3668) Requested for: 98Gfh5843; Last Rx:[id number] Ordered TRUEplus Pen [place] 31G X 8 MM Miscellaneous; USE THREE DAILY DIRECTED; Therapy: 78Ncf4432 to (Evaluate:28Sep2018) Requested for: 03Oct2017; Last Rx:03Oct2017 Ordered Trulicity 1.5 MG/0.5ML Subcutaneous Solution Pen-injector; Therapy: 01Oct2017 to Recorded Vitamin D (Ergocalciferol) 82312 UNIT Oral Capsule; TAKE ONE CAPSULE BY MOUTH ONCE A WEEK; Therapy: 07Apr2015 to (Evaluate:46Gof6005) Requested for: 03Oct2017; Last Rx:[id number] Ordered Signatures Electronically signed by : Sergo Victor MD; Feb 12 2018 8:10PM EST (Author) BASIC METABOLIC PANEL Collected: 02/11/2018 Status: F Source: [place] [facility] REPOSITORY TYPE CODE TESTS RESULT OUT OF RANGE REFERENCE UNITS LAB GLU(LOINC) 74 - 99 mg/dL High GLUCOSE 139 LAB SOD(LOINC) 136 - 145 mmol/L SODIUM 139 LAB K(LOINC) 3.5 - 5.3 mmol/L POTASSIUM 4.6 LAB CHLOR(LOIN 98 - 107 mmol/L C) CHLORIDE 102 LAB BIC(LOINC) 21 - 32 mmol/L BICARBONATE 27 LAB ANGAP(LOIN 10 - 20 mmol/L C) ANION GAP 15 LAB UREA(LOINC 6 - 23 mg/dL ) High UREA NITROGEN 46 LAB CREA(LOINC 0.50 - 1.30 mg/dL ) High CREATININE 1.70 LAB GFRFN(LOIN >60 mL/min/1.7 C) 3m2 GFR-NON Abnormal AM. 41 LAB GFRAA(LOIN >60 mL/min/1.7 C) 3m2 GFR- Abnormal AM. 50 Result Comment: CALCULATIONS OF ESTIMATED GFR ARE PERFORMED USING THE MDRD STUDY EQUATION FOR THE IDMS-TRACEABLE CREATININE METHODS. CLIN CHEM 2007;53:766-72 LAB CA(LOINC) 8.6 - 10.6 mg/dL CALCIUM 9.2 Performed By: #### BMP #### [facility] [address] 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 Visual acuity is 20/50 (-2) RE and 20/70 (-2) LE. IOP 19.5/23.5. Anterior segment exam is significant for Posterior chamber intraocular lens both eyes. Dilated fundus examination demonstrates diffuse Panretinal laser photocoagulation in both eyes, with small FVP/neovascularization superotemporal in the right eye and no evidence of neovascularization in the left eye. IOP remains elevated today in the left eye (even after adding timolol). OCT shows atrophy without fluid both eyes. Recommend follow up with Dr. Berger, currently on T 1/2, alp, sana. both eyes. Recommend close observation of NV in right eye. I have confirmed and edited as necessary the relevant ophthalmic history, ROS, and the neuro exam findings as obtained by others. I have seen and examined this patient. I have discussed the case and the management of this patient's care with the Resident/Fellow, if applicable. I also have reviewed and agree with the assessment and plan as stated above and agree with all of its relevant components. Lauren Andrews MD February 10, 2018 9:10 AM BEDSIDE GLUCOSE Collected: 02/09/2018 Status: F Source: [place] 11:05 AM [facility] REPOSITORY TYPE CODE TESTS RESULT OUT OF REFERENCE UNITS RANGE LAB L501.080 70-110 mg/dL High BEDSIDE GLU 134 Result Comment: MANAGEMENT OF PATIENT CARE PER NURSING PROTOCOL Performed By: #### L501.080 #### [facility] [address] [place] [address] BEDSIDE GLUCOSE Collected: 02/09/2018 Status: F Source: [place] 9:11 AM [facility] REPOSITORY TYPE CODE TESTS RESULT OUT OF REFERENCE UNITS RANGE LAB L501.080 70-110 mg/dL High BEDSIDE GLU 173 Result Comment: MANAGEMENT OF PATIENT CARE PER NURSING PROTOCOL Performed By: #### L501.080 #### [facility] [address] [place] [address] BEDSIDE GLUCOSE Collected: 02/08/2018 Status: F Source: [place] 11:34 AM [facility] REPOSITORY TYPE CODE TESTS RESULT OUT OF REFERENCE UNITS RANGE LAB L501.080 70-110 mg/dL High BEDSIDE GLU 178 Result Comment: MANAGEMENT OF PATIENT CARE PER NURSING PROTOCOL Performed By: #### L501.080 #### [facility] [address] [place] [address] BEDSIDE GLUCOSE Collected: 02/08/2018 Status: F Source: [place] 9:36 AM [facility] REPOSITORY TYPE CODE TESTS RESULT OUT OF REFERENCE UNITS RANGE LAB L501.080 70-110 mg/dL High BEDSIDE GLU 244 Result Comment: MANAGEMENT OF PATIENT CARE PER NURSING PROTOCOL Performed By: #### L501.080 #### [facility] [address] [place] [address] PROGRESS Observed: 02/04/2018 Status: COMPLETED Source: [place] 8:16 AM [facility] REPOSITORY HNO ID: [id number] Author: Pitts (Fel) Kalli Service: (none) Author Type: Fellow Type: Progress Notes Filed: 02/04/2018 1:29 PM Note Text: Tmax: OD: 24 (although higher 1d and 1 month post phaco) Pachy: 593, 597 OS: 25 (09/29/13) Lasers and Surgeries: OD: 11/29/13 CEIOL (Goshe) OS: 09/02/09 CEIOL/PPV/AFE/EL for TRD (Juliana / Johnna) Ocular Medication Intol and Non-efficacy: Cosopt: poorly tolerated due to burning 06/26/14 Current meds: brimonidine 0.2 BID OU, latanoprost OU qhs (added 06/2015) OHTN -No famhx glaucoma -RNFL OCT 09/2014 baseline (in setting of extensive PRP OU, TRD OS): diffuse thinning OU. 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 Andrews. Given posterior segment ischemia, recommend add timolol 0.5% OU qam -2-3 months IOP PCO OD -notes declining vision. Notes more difficulty reading and increased light sensitivity and uncomfortable to go outside YAG today 200 spots at 1.5, fluffy cortical lens material within the inferonasal capsule, leaked out into the vitreous cavity during the YAG capsulotomy. Required a high number of spots and energy to break up this material. -Instilled 1 drop of brimonidine, timolol, and dorzolamide immediately after the procedure. -IOP 30 minutes later was 18 by [facility] -counseled about RD symptoms and return precautions -PF QID x 5 days then stop -FU in 2-3 months as scheduled IDDM w/ PDR -s/p PRP OU -sees Dr. Andrews I, Lauren Berger MD, have edited as necessary and confirmed the relevant ophthalmic history, ROS, and neuro exam findings as obtained by others. I have seen and examined Del Barrios. I also have reviewed, edited as necessary, and agree with the assessment and plan and all of its relevant components as stated above. I have discussed the case and the management of this patient's care with the Resident/Fellow, if applicable. BEDSIDE GLUCOSE Collected: 02/03/2018 Status: F Source: [place] 11:32 AM [facility] REPOSITORY TYPE CODE TESTS RESULT OUT OF REFERENCE UNITS RANGE LAB L501.080 70-110 mg/dL High BEDSIDE GLU 148 Result Comment: MANAGEMENT OF PATIENT CARE PER NURSING PROTOCOL Performed By: #### L501.080 #### [facility] [address] [place] [address] BEDSIDE GLUCOSE Collected: 02/03/2018 Status: F Source: [place] 9:29 AM [facility] REPOSITORY TYPE CODE TESTS RESULT OUT OF REFERENCE UNITS RANGE LAB L501.080 70-110 mg/dL High BEDSIDE GLU 203 Result Comment: MANAGEMENT OF PATIENT CARE PER NURSING PROTOCOL Performed By: #### L501.080 #### [facility] [address] [place] [address] BEDSIDE GLUCOSE Collected: 02/02/2018 Status: F Source: [place] 11:31 AM [facility] REPOSITORY TYPE CODE TESTS RESULT OUT OF REFERENCE UNITS RANGE LAB L501.080 70-110 mg/dL High BEDSIDE GLU 126 Result Comment: MANAGEMENT OF PATIENT CARE PER NURSING PROTOCOL Performed By: #### L501.080 #### [facility] [address] [place] [address] BEDSIDE GLUCOSE Collected: 02/02/2018 Status: F Source: [place] 9:22 AM [facility] REPOSITORY TYPE CODE TESTS RESULT OUT OF REFERENCE UNITS RANGE LAB L501.080 70-110 mg/dL High BEDSIDE GLU 165 Result Comment: MANAGEMENT OF PATIENT CARE PER NURSING PROTOCOL Performed By: #### L501.080 #### [facility] [address] [place] [address] BEDSIDE GLUCOSE Collected: 02/01/2018 Status: F Source: [place] 9:53 AM [facility] REPOSITORY TYPE CODE TESTS RESULT OUT OF REFERENCE UNITS RANGE LAB L501.080 70-110 mg/dL High BEDSIDE GLU 198 Result Comment: MANAGEMENT OF PATIENT CARE PER NURSING PROTOCOL Performed By: #### L501.080 #### [facility] [address] [place] [address] BEDSIDE GLUCOSE Collected: 02/01/2018 Status: F Source: [place] 8:18 AM [facility] REPOSITORY TYPE CODE TESTS RESULT OUT OF REFERENCE UNITS RANGE LAB L501.080 70-110 mg/dL High BEDSIDE GLU 230 Result Comment: MANAGEMENT OF PATIENT CARE PER NURSING PROTOCOL Performed By: #### L501.080 #### [facility] [address] [place] [address] BEDSIDE GLUCOSE Collected: 01/27/2018 Status: F Source: [place] 12:04 PM [facility] REPOSITORY TYPE CODE TESTS RESULT OUT OF REFERENCE UNITS RANGE LAB L501.080 70-110 mg/dL High BEDSIDE GLU 120 Result Comment: MANAGEMENT OF PATIENT CARE PER NURSING PROTOCOL Performed By: #### L501.080 #### [facility] [address] [place] [address] BEDSIDE GLUCOSE Collected: 01/27/2018 Status: F Source: [place] 10:13 AM [facility] REPOSITORY TYPE CODE TESTS RESULT OUT OF REFERENCE UNITS RANGE LAB L501.080 70-110 mg/dL High BEDSIDE GLU 131 Result Comment: MANAGEMENT OF PATIENT CARE PER NURSING PROTOCOL Performed By: #### L501.080 #### [facility] [address] [place] [address] BEDSIDE GLUCOSE Collected: 01/25/2018 Status: F Source: [place] 11:41 AM [facility] REPOSITORY TYPE CODE TESTS RESULT OUT OF REFERENCE UNITS RANGE LAB L501.080 70-110 mg/dL High BEDSIDE GLU 144 Result Comment: MANAGEMENT OF PATIENT CARE PER NURSING PROTOCOL Performed By: #### L501.080 #### [facility] [address] [place] [address] BEDSIDE GLUCOSE Collected: 01/25/2018 Status: F Source: [place] 9:42 AM [facility] REPOSITORY TYPE CODE TESTS RESULT OUT OF REFERENCE UNITS RANGE LAB L501.080 70-110 mg/dL High BEDSIDE GLU 168 Result Comment: MANAGEMENT OF PATIENT CARE PER NURSING PROTOCOL Performed By: #### L501.080 #### [facility] [address] [place] [address] BEDSIDE GLUCOSE Collected: 01/24/2018 Status: F Source: [place] 11:58 AM [facility] REPOSITORY TYPE CODE TESTS RESULT OUT OF REFERENCE UNITS RANGE LAB L501.080 70-110 mg/dL High BEDSIDE GLU 112 Result Comment: MANAGEMENT OF PATIENT CARE PER NURSING PROTOCOL Performed By: #### L501.080 #### [facility] [address] [place] [address] BEDSIDE GLUCOSE Collected: 01/24/2018 Status: F Source: [place] 10:00 AM [facility] REPOSITORY TYPE CODE TESTS RESULT OUT OF REFERENCE UNITS RANGE LAB L501.080 70-110 mg/dL High BEDSIDE GLU 168 Result Comment: MANAGEMENT OF PATIENT CARE PER NURSING PROTOCOL Performed By: #### L501.080 #### [facility] [address] [place] [address] BEDSIDE GLUCOSE Collected: 01/21/2018 Status: F Source: [place] 12:01 PM [facility] REPOSITORY TYPE CODE TESTS RESULT OUT OF REFERENCE UNITS RANGE LAB L501.080 70-110 mg/dL High BEDSIDE GLU 119 Result Comment: MANAGEMENT OF PATIENT CARE PER NURSING PROTOCOL Performed By: #### L501.080 #### [facility] [address] [place] [address] BEDSIDE GLUCOSE Collected: 01/21/2018 Status: F Source: [place] 9:44 AM [facility] REPOSITORY TYPE CODE TESTS RESULT OUT OF REFERENCE UNITS RANGE LAB L501.080 70-110 mg/dL High BEDSIDE GLU 173 Result Comment: MANAGEMENT OF PATIENT CARE PER NURSING PROTOCOL Performed By: #### L501.080 #### [facility] [address] [place] [address] [facility] Observed: 01/19/2018 Status: F Source: [place] CONSULT 10:42 AM [facility] REPOSITORY [facility] [address] [place] [address] [facility] Consult 12/09/17 1729 MR#: [id number] Acct: [id number] Name: DEL BARRIOS Rep #: [id number] : 1960 57 From: Juanito Valdes MD PCP: Kobe CARDENAS,Arnie Watson Status: DIS RCR Y Location: WC (1) Calcaneus pressure ulceration right foot Status: Acute (2) Nonhealing skin ulcer Status: Acute Code(s): L98.499 - Non-pressure chronic ulcer of skin of other sites with unspecified severity (3) Chronic ulcer of right foot with fat layer exposed Status: Chronic Code(s): L97.512 - Non-pressure chronic ulcer of other part of right foot with fat layer exposed (4) Diabetes mellitus type 2, uncontrolled, with complications Status: Chronic Code(s): E11.8 - Type 2 diabetes mellitus with unspecified complications; E11.65 - Type 2 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with hyperglycemia History of Present Illness Date of Service: 12/09/17 Presenting Chief Complaint: Hyperbaric oxygen consult for slow healing/nonhealing right foot ulcers. The patient is a 57 year old M who [facility] to evaluate the possibility of initiating hyperbaric oxygen therapy for treatment of slow healing/nonhealing right foot ulcer. He has been following with Dr. Lux for the management of his bilateral lower extremity ulcers and has had significant delayed healing of his right lower extremity/foot ulcer. Per documentation he is at high risk for limb loss. He has had surgical debridement, skin substitutes as well as traditional wound care products without significant improvement. He has a history of diabetes mellitus type 2 which is also not very well controlled. He is status post BKA of his left lower extremity. He has had hyperbaric oxygen treatments in the past with the last session about 2 years ago. His sessions were pretty much well-tolerated however he had to get bilateral ear tubes. He has had no problems with his hearing or vision since his last session. He also denies any history of heart disease. EKG and chest x-ray reviewed, no significant abnormalities. He denies chest pain, shortness of breath or palpitations. 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) Ulcer of right foot with necrosis of muscle (Chronic) Ulcer of right foot with fat layer exposed (Chronic) 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) Delayed wound healing (Chronic) Malnutrition (Chronic) Venous insufficiency (Chronic) Lymphedema (Chronic) Edema of both legs (Chronic) GERD (gastroesophageal reflux disease) (Chronic) Hypertension (Chronic) Hyperlipemia (Chronic) Morbid obesity with BMI of 45.0-49.9, adult (Chronic) Hyperlipidemia associated with type 2 diabetes mellitus (Chronic) 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 Allergies/Adverse Reactions: Allergies bee venom protein (honey bee) Allergy (Verified 12/13/17 09:30) Swelling metronidazole [From Flagyl] Allergy (Verified 12/13/17 09:30) Itching Home Medications: Ambulatory Orders Medication Instructions Recorded Atorvastatin Calcium [Lipitor] 10 mg PO QHS 01/08/17 Brimonidine Tartrate 0.2% 1 drop EACH EYE BID 01/08/17 Maternal Family History: Diabetes Paternal Family History: Hypertension Sibling Family History: Diabetes Smoking Status: Former smoker Review of Systems Constitutional: Denies: Anorexia, Malaise, Weakness Eyes: Denies: Blurred vision, Pain, Redness HEENT: Denies: Difficulty Swallowing Cardiovascular: Denies: Chest Pain, Chest Tightness Respiratory: Denies: Hemoptysis Gastrointestinal: Denies: Abdominal Pain, Hematemesis, Vomiting Skin: Denies: Jaundice Psychiatric: Denies: Anxiety - Physical Exam Vital Signs Temp Pulse Resp BP 96.4 F L 94 18 112/67 12/09/17 10:42 12/09/17 10:42 12/09/17 10:42 12/09/17 10:42 General: Alert, Oriented x3, Cooperative, No apparent distress HEENT: Atraumatic, Normocephalic, - - Right eardrum perforation. Left atrium normal. No drainage/discharge or tubes visualized. Oral: Moist Mucosa Neck: Supple Lungs: Normal air movement Cardiovascular: Regular rate, Regular Rhythm, Normal S1, Normal S2 Abdomen: Non Tender, Obese Extremities: No cyanosis Musculoskeletal: No Muscle Wasting Neurological: Cranial nerves II-XII grossly intact Psych/Mental Status: Normal Affect Assessment/Plan DEL BARRIOS is an appropriate candidate for hyperbaric oxygen therapy. Hyperbaric Oxygen Therapy would be an essential adjunct in the resolution and treatment of this patient's presenting problem. This patient has sufficient physiologic and psychological stamina to undergo the rigors of hyperbaric oxygen therapy. As such, I recommend the following: Hyperbaric Oxygen Treatments at 2.0 SIMIN in 100% Oxygen for 90 minutes per treatment, for 40 treatments. I have discussed the possible benefits of hyperbaric oxygen therapy with this patient. I have also presented and described the risks, including: air gas embolism, pneumothorax, central nervous system and pulmonary oxygen toxicity, flash pulmonary edema, hypoglycemia, reversible visual refractive changes, ear and sinus osmin-trauma, and confinement anxiety. The patient has verbalized understanding of these risks, and is still wanting to undergo hyperbaric oxygen therapy. The patient understands the significant time and transportation commitment involved in daily treatments of up to two hours duration and has stated that they are willing to commit to this therapy. Advised to follow-up with his ENT for ear tubes placement prior to starting HBO. 01/19/18 1042 <Electronically signed by Juanito Valdes MD> Date Juanito Valdes MD CC: Signed BEDSIDE GLUCOSE Collected: 01/19/2018 Status: F Source: [place] 10:15 AM [facility] REPOSITORY TYPE CODE TESTS RESULT OUT OF REFERENCE UNITS RANGE LAB L501.080 70-110 mg/dL High BEDSIDE GLU 118 Result Comment: MANAGEMENT OF PATIENT CARE PER NURSING PROTOCOL Performed By: #### L501.080 #### [facility] [address] [place] [address] BEDSIDE GLUCOSE Collected: 01/19/2018 Status: F Source: [place] 7:51 AM [facility] REPOSITORY TYPE CODE TESTS RESULT OUT OF REFERENCE UNITS RANGE LAB L501.080 70-110 mg/dL High BEDSIDE GLU 190 Result Comment: MANAGEMENT OF PATIENT CARE PER NURSING PROTOCOL Performed By: #### L501.080 #### [facility] [address] [place] [address] BEDSIDE GLUCOSE Collected: 01/18/2018 Status: F Source: [place] 11:30 AM [facility] REPOSITORY TYPE CODE TESTS RESULT OUT OF REFERENCE UNITS RANGE LAB L501.080 70-110 mg/dL High BEDSIDE GLU 280 Result Comment: MANAGEMENT OF PATIENT CARE PER NURSING PROTOCOL Performed By: #### L501.080 #### [facility] [address] [place] [address] BEDSIDE GLUCOSE Collected: 01/18/2018 Status: F Source: [place] 9:18 AM [facility] REPOSITORY TYPE CODE TESTS RESULT OUT OF REFERENCE UNITS RANGE LAB L501.080 70-110 mg/dL High BEDSIDE GLU 217 Result Comment: MANAGEMENT OF PATIENT CARE PER NURSING PROTOCOL Performed By: #### L501.080 #### [facility] [address] [place] [address] URINE DRUG SCREEN Collected: 12/16/2017 Status: F Source: [place] (VISTA) 1:42 PM [facility] REPOSITORY Order Comment: Comments: [id number] URINE TOXICOLOGY RUN LOWEST TEST List of Drugs Taken or Suspected? UNK TYPE CODE TESTS RESULT OUT OF RANGE REFERENCE UNITS LAB L505.0075 TO BE Normal CONFIRMED Result Comment: CONFIRMATORY TESTING FOR ALL POSITIVE URINE DRUG SCREEN RESULTS WILL ONLY BE SENT OUT UPON PHYSICIAN ORDER. VISTA Urine Drug Screen methods provide only preliminary analytical test results. A more specific alternate chemical method must be used in order to obtain a confirmed analytical result. Gas chromatography/mass spectrometery (GC/MS) is the preferred confirmatory method. Clinical consideration and professional judgement should be applied to any drug of abuse test result, particularly when preliminary positive results are used. URINE TCA TESTING MUST BE ORDERED SEPARATELY. USE TEST MNEMONIC: [facility] LAB L505.5005 VISTA UDS PH 5 Normal LAB L505.5015 <1000 ng/mL AMPHETAMINES Normal NEGATIVE LAB L505.5025 < 200 ng/mL BARBITIURATES Normal NEGATIVE LAB L505.5035 < 200 ng/mL BENZODIAZIPINE Normal NEGATIVE LAB L505.5045 < 300 ng/mL COCAINE Normal NEGATIVE LAB L505.5055 < 500 ng/mL ECSTACY Normal NEGATIVE LAB L505.5065 < 300 ng/mL METHADONE Normal NEGATIVE LAB L505.5075 < 300 High ng/mL OPIATES POSITIVE LAB L505.5085 < 25 ng/mL PCP Normal NEGATIVE LAB L505.5095 < 50 ng/mL THC Normal NEGATIVE Performed By: #### L505.5000 #### [facility] [address] [place], [place] [address]carlos. [place], [place], [address] MISCELLANEOUS LAB Collected: 12/16/2017 Status: F Source: RUDY PROCEDURE 1:42 PM [facility] REPOSITORY Order Comment: Comments: [id number] URINE TOXICOLOGY RUN LOWEST TEST Test(s) Ordered: [id number] URINE TOXICOLOGY RUN LOWEST TEST TYPE CODE TESTS RESULT OUT OF RANGE REFERENCE UNITS LAB L801.1541 Normal [facility] LAB TEST Result Comment: TEST RESULT UNITS REF INTERVAL [id number] 6+Oxycodone-Bund Amphetamines, Urine Negative ng/mL Icrdpb=2171 Amphetamine test includes Amphetamine and Methamphetamine. Barbiturate Negative ng/mL Dabrdr=305 Benzodiazepines Negative ng/mL Qcrmhb=528 Cannabinoids Negative ng/mL Cutoff=20 Cocaine (Metabolite) Negative ng/mL Ydhlha=269 Opiates Negative ng/mL Upnkof=664 Opiate test includes Codeine, Morphine, Hydromorphone, Hydrocodone. Please Note: Confirmation performed by Mass Spectrometry Oxycodone/Oxymorphone, Urine Negative ng/mL Nzcicw=657 Test includes Oxycodone and Oxymorphone TESTING PERFORMED AT [facility]. ORIGINAL REPORT ON FILE IN LAB CONTAINS ADDITIONAL TEST SITE INFORMATION. Performed By: #### L801.1541 #### [facility] [address] [place], [address] EMERGENCY DEPARTMENT Observed: 12/13/2017 Status: F Source: ELSINORE SUMMARY 12:16 PM [facility] REPOSITORY [facility] Medical Records Department [address] [place] [address] Emergency Department Summary 12/13/17 0948 MR#: [id number] Acct: [id number] Name: DEL BARRIOS Rep #: [id number] : 1960 57 From: Darinel Dinero DO PCP: Arnie Reese MD, Chi Status: REG ER - ER Visit Summary Date of Service: 12/13/17 Chief Complaint: Right foot wound History of Present Illness: The patient is a 57 M who presents with worsening of his right foot wound. Patient states his home health nurse that cares for his chronic wound on his right foot came to his house today and noticed he had maggots in his wound. Patient denies any pain. Patient states his right foot is numb due to neuropathy. Patient denies any fevers or chills. Patient denies any redness of his wound. Physical Examination: Vital signs are stable. Patient is afebrile. Patient is in no acute distress. Oral mucosa is pink and moist. Neck is supple. Heart was regular rate and rhythm. Lungs are clear and equal bilaterally. There is good respiratory effort noted. Abdomen is soft and nontender. Cranial nerves II through XII are intact. Strength is 5/5 bilaterally. There is an open wound over the right heel and webspace between the first and second digits. There are maggots in the wound between the first and second digit. There is no erythema or drainage. Test Results: CBC shows slight leukocytosis of 11.8. Basic metabolic profile showed a creatinine of 2.18 which is chronic for him. Potassium was slightly elevated at 5.4. X-rays of the right foot did not show any evidence of osteomyelitis. Emergency Department Course and Treatment: Patient felt better on reevaluation. There is no erythematous streaking from the wounds. The wounds were cleaned and dressed. Patient states he has an appointment in the wound care center in 2 days. Patient was given a prescription for clindamycin. Patient was instructed to follow-up with his wound care appointment as scheduled. Patient understood and was agreeable with the plan. All questions were answered. Disposition: Discharge home Impression: Chronic wound right foot This note was generated with [employer]P [employer] Silk dictation software. It may contain incorrect words, spelling, and punctuation that were not noted in review of the chart prior to signing ED Disposition - Plan for ED Patient: Disposition: Home or Assisted Living Chief Complaint: Wound Diagnosis: Open wound of right foot Instructions: Discharge Instructions for Diabetic Foot Ulcers Prescriptions: Clindamycin HCl 300 mg PO [id number] #40 cap Referrals: Arnie Reese Chi, MD [Primary Care Provider] - What to do if you have Problems For any increased pain, shortness of breath, bleeding, nausea or vomiting, chest pain, or any unexpected problems, contact your Primary Care Provider. Call [facility] ([phone]) or report to the closest Emergency Room. Call 911 if necessary. 12/13/17 1216 <Electronically signed by Darinel Dinero DO> Date Darinel Dinero DO Cosigner Signature (If Indicated): Date CC: Arnie Reese MD Observed: 12/13/2017 Status: F Source: RUDY CULTURE, WOUND 10:45 AM [facility] REPOSITORY Has pt arrived? Y Gram Stain Gram Stain No White Blood Cells 4+ Gram negative rods Wound Culture #3 There are no CLSI standards for interpretation of this Drug/Organism combination. ORGANISM 1: Proteus mirabilis Amount Growth 3+ ORGANISM 2: Enterobacter cloacae complex Amount Growth 3+ ORGANISM 3: Corynebacterium striatum Amount Growth 3+ Proteus mirabilis: REACTION Amoxacillin/Clavulanic Acid $ <=2 S Ampicillin $ <=2 S Ampicillin/Sulbactam $ <=2 S Cefazolin $ <=4 S Cefepime $ <=1 S Ceftriaxone $ <=1 S Ciprofloxacin $ >=4 R Ertapenim $$$ <=0.5 S Gentamicin $ <=1 S Levofloxacin $ >=8 R Piperacillin/Tazobactam $$ <=4 S Tobramycin $ <=1 S Trimethoprim/Sulfametho $ <=20 S (NF) indicates non-formulary drug at [facility]. Approval by Infectious Disease Specialist required before non-formulary drugs may be ordered and/or dispensed. Enterobacter cloacae complex: REACTION Amoxacillin/Clavulanic Acid $ >=32 R Cefazolin $ >=64 R Cefepime $ <=1 S Ceftriaxone $ <=1 S Ciprofloxacin $ <=0.25 S Ertapenim $$$ <=0.5 S Gentamicin $ <=1 S Imipenem *NF 0.5 S Levofloxacin $ <=0.12 S Piperacillin/Tazobactam $$ <=4 S Tobramycin $ <=1 S Trimethoprim/Sulfametho $ <=20 S (NF) indicates non-formulary drug at [facility]. Approval by Infectious Disease Specialist required before non-formulary drugs may be ordered and/or dispensed. Performed By: #### M100.1400 #### [facility] [address] [place], [address] Observed: 12/13/2017 Status: F Source: ELSINORE CULTURE, BLOOD (WB) 10:10 AM [facility] REPOSITORY BC No growth in 5 days. Performed By: #### M200.1000 #### [facility] [address] [facility] [place], [address] CBC W/DIFF, AUTOMATED Collected: 12/13/2017 Status: F Source: ELSINORE 10:00 AM [facility] REPOSITORY TYPE CODE TESTS RESULT OUT OF RANGE REFERENCE UNITS LAB L100.1000 4.4-11.0 K/mm3 High WBC 11.8 LAB L100.1200 4.6-6.2 M/mm3 Low RBC 3.70 LAB L100.1300 13.0-16.5 g/dl Low HGB 9.4 LAB L100.1400 40-54 % Low HCT 31.4 LAB L100.1500 80-94 fL Normal MCV 84.9 LAB L100.1600 27.0-32.0 pg Low MCH 25.4 LAB L100.1700 32-36 g/gl Low MCHC 29.9 LAB L100.1810 11.6-14.6 % High RDW CV 17.5 LAB L100.1820 35.1-43.9 fl High RDW SD 52.8 LAB L100.1900 150-450 K/mm3 Normal PLT 231 LAB L100.2000 6.2-12.0 fl Normal MPV 10.5 LAB L100.2100 47-70 % High NEUT% 79.9 LAB L100.2200 19-41 % Low LY% 9.2 LAB L100.2300 0-10 % Normal MONO% 7.0 LAB L100.2400 0-5 % Normal EO% 2.0 LAB L100.2500 0-1 % Normal BASO% 0.2 LAB L100.2550 0.0-0.9 % High IM GRAN % 1.700 Result Comment: IG% - Immature Granulocytes (promyelocytes, myelocytes and metamyelocytes) > 1% indicates that a LEFT SHIFT is Present. LAB L100.2620 2.0-7.7 X10 3/uL High Absolute Neut 9.4 LAB L100.2720 0.83-4.51 X10 3/ul Normal Absolute Lymph 1.08 Performed By: #### L100.0100 #### [facility] [address] [facility] [place], [address] BASIC METABOLIC Collected: 12/13/2017 Status: F Source: RUDY PROFILE (BMP) 10:00 AM [facility] REPOSITORY TYPE CODE TESTS RESULT OUT OF RANGE REFERENCE UNITS LAB L501.0100 74-106 mg/dL Normal GLU 103 Result Comment: Fasting Glucose result from 100 to 125 mg/dL suggests IMPAIRED HOMEOSTASIS per A.D.A. criteria. Please note revised GLUCOSE reference range effective 2017. LAB L501.1000 7-18 mg/dL High BUN 62 LAB L501.1100 0.70-1.30 mg/dL High CREAT,SERUM 2.18 Result Comment: The validity of the calculated GFR AND GFRAA in patients over 70 years has not been determined. Clinical correlation is essential. LAB L501.1110 >60 mL/min Low EST GFR 33 Result Comment: Non- GFR Calc LAB L501.1115 >60 mL/min Low EST GFR - AA 40 Result Comment: GFR Calc LAB L501.1255 ml/min Normal Estimated CRCL 35.30 LAB L501.1300 10-20 RATIO High BUN/CRE 28.4 LAB L501.2200 8.5-10 mg/dL Normal .1 CA 8.8 LAB L501.5300 136-14 mmol/L Normal 5 NA 140 LAB L501.5600 3.5-5. mmol/L High 1 K 5.4 Result Comment: Moderate Hemolysis, Result may be falsely increased. LAB L501.5900 98-107 mmol/L Normal CL 103 LAB L501.6100 21.0-32.0 mmol/L Normal CO2 28.0 LAB L501.6200 5-15 Normal 9 GAP Performed By: #### L500.2500 #### [facility] [address] [place], [address] Observed: 12/13/2017 Status: F Source: RUDY CULTURE, BLOOD (WB) 10:00 AM [facility] REPOSITORY BC No growth in 5 days. Performed By: #### M200.1000 #### [facility] [address] [place], [address] FOOT MIN 3 VIEWS Observed: 12/13/2017 Status: F Source: RUDY 9:48 AM [facility] REPOSITORY [facility] Services [address] [place] [address] Foot min 3 Views MR#: [id number] Acct: [id number] Name: DEL BARRIOS Rep #: [id number] : 1960 M 57 From: Saeed Jeffrey MD PCP: Kobe CARDENAS,Arnie Chi Status: REG ER Study: Foot min 3 Views Date of Exam: 12/13/17 Exam# [id number] Ordering Dr: Darinel Dinero DO STUDY: X-RAY - RIGHT FOOT CLINICAL: Male, 57 years old. Ulceration overlying the calcaneus. The patient has a history of diabetes. TECHNIQUE: 4 view(s) of the foot. COMPARISON: Comparison is made with prior study dated September 01, 2017. FINDINGS: There is a plantar calcaneal spur. Soft tissue swelling overlying the posterior aspect of the calcaneus. Degenerative changes of the tarsal joints. 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 Normal tibial and fibular sesamoid bones. Normal interphalangeal joint of the great toe. Normal phalanges of the great toe. Normal second through fifth metatarsophalangeal joints. Normal interphalangeal joints and phalanges of the lesser toes. There is no demonstrated soft tissue swelling. RAD/Foot min 3 Views IMPRESSION: Diffuse soft tissue swelling which has progressed as compared to prior study. The remainder of the examination is unchanged. Electronically Signed: Saeed Jeffrey MD at 11:12 EDT Tel [phone], Service support , CC: Darinel Dinero DO; Arnie Reese MD Overlock Operator: Signed CBC-COMPLETE BLOOD CNT Collected: 12/02/2017 Status: F Source: RUDY NO DIFF 1:35 PM [facility] REPOSITORY TYPE CODE TESTS RESULT OUT OF RANGE REFERENCE UNITS LAB L100.1000 4.4-11.0 K/mm3 Normal WBC 10.5 LAB L100.1200 4.6-6.2 M/mm3 Low RBC 3.39 LAB L100.1300 13.0-16.5 g/dl Low HGB 8.8 LAB L100.1400 40-54 % Low HCT 30.0 LAB L100.1500 80-94 fL Normal MCV 88.5 LAB L100.1600 27.0-32.0 pg Low MCH 26.0 LAB L100.1700 32-36 g/gl Low MCHC 29.3 LAB L100.1810 11.6-14.6 % High RDW CV 17.6 LAB L100.1820 35.1-43.9 fl High RDW SD 55.5 LAB L100.1900 150-450 K/mm3 Normal PLT 216 LAB L100.2000 6.2-12.0 fl Normal MPV 10.9 Performed By: #### L100.0500 #### [facility] [address] [place], [place], [address] RENAL PROFILE Collected: 12/02/2017 Status: F Source: ELSINORE 1:35 PM [facility] REPOSITORY TYPE CODE TESTS RESULT OUT OF RANGE REFERENCE UNITS LAB L501.0100 74-106 mg/dL High GLU 146 Result Comment: Fasting Glucose result greater than or equal to 126 mg/dL suggests DIABETES MELLITUS per A.D.A. criteria. Please note revised GLUCOSE reference range effective 2017. LAB L501.1000 7-18 mg/dL High BUN 57 LAB L501.1100 0.70-1.30 mg/dL High CREAT,SERUM 1.85 Result Comment: The validity of the calculated GFR AND GFRAA in patients over 70 years has not been determined. Clinical correlation is essential. LAB L501.1110 >60 mL/min Low EST GFR 40 Result Comment: Non- GFR Calc LAB L501.1115 >60 mL/min Low EST GFR - AA 48 Result Comment: GFR Calc LAB L501.1300 10-20 RATIO High BUN/CRE 30.8 LAB L501.1800 3.2-5.0 g/dL Low ALB 2.8 LAB L501.2200 8.5-10.1 mg/dL CA Normal 8.7 LAB L501.2300 2.5-4.9 mg/dL Normal PHOS 4.2 LAB L501.5300 136-145 mmol/L NA Normal 140 LAB L501.5600 3.5-5.1 mmol/L High K 5.2 LAB L501.5900 98-107 mmol/L CL Normal 106 LAB L501.6100 21.0-32.0 mmol/L Normal CO2 27.0 Performed By: #### L500.3600 #### [facility] [address] [place], [address] PTHIN Collected: 12/02/2017 Status: F Source: RUDY 1:35 PM [facility] REPOSITORY TYPE CODE TESTS RESULT OUT OF RANGE REFERENCE UNITS LAB L509.1000 18.4-80.1 pg/mL Normal PTHIN 46.6 Performed By: #### L509.1000 #### [facility] [address] [place], [address] URINE DRUG SCREEN Collected: 11/18/2017 Status: P Source: RUDY (VISTA) 10:45 AM [facility] REPOSITORY Order Comment: List of Drugs Taken or Suspected? UNK TYPE CODE TESTS RESULT OUT OF RANGE REFERENCE UNITS LAB L505.0075 TO BE Normal CONFIRMED Result Comment: CONFIRMATORY TESTING FOR ALL POSITIVE URINE DRUG SCREEN RESULTS WILL ONLY BE SENT OUT UPON PHYSICIAN ORDER. VISTA Urine Drug Screen methods provide only preliminary analytical test results. A more specific alternate chemical method must be used in order to obtain a confirmed analytical result. Gas chromatography/mass spectrometery (GC/MS) is the preferred confirmatory method. Clinical consideration and professional judgement should be applied to any drug of abuse test result, particularly when preliminary positive results are used. URINE TCA TESTING MUST BE ORDERED SEPARATELY. USE TEST MNEMONIC: UTCA Performed By: #### L505.5000 #### [facility] [address] 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 Visual acuity is 20/60 RE and 20/60 LE. IOP 22/23. Anterior segment exam is significant for Posterior chamber intraocular lens both eyes. Dilated fundus examination demonstrates diffuse Panretinal laser photocoagulation in both eyes, with small stable neovascularization in the right eye (stable) and no evidence of neovascularization in the left eye. I recommend observation with better BP/BS/cholesterol control. Needs to follow up with Dr. Berger for glaucoma care-currently on alphagan and travaan- and YAG- IOP elevated today. Follow up here 3 months. I have confirmed and edited as necessary the relevant ophthalmic history, ROS, and the neuro exam findings as obtained by others. I have seen and examined this patient. I have discussed the case and the management of this patient's care with the Resident/Fellow, if applicable. I also have reviewed and agree with the assessment and plan as stated above and agree with all of its relevant components. OFFICE VISIT (INTERNAL Observed: 11/07/2017 Status: UNK Source: [facility]) 11:31 AM [facility]OSPITALS REPOSITORY Chief Complaint here for dm followup History of Present Illness was in hosp. for a month in september 2017, for r. foot ulcer, saw dr. reese. Rudy back in apt. now, gets meals ok no fvers age nt: u500 ac tid 160/ 105/ 105 novlog prn if above 200 had trulc added plus jardiance plus tradjenta(by dr. reese) hgm: fbs 135 , 236. 70 % above 180 lunch 140 , 132 , 203 pm 124 , 238, 220 hs 191 . 148 he tells me he has followup with dr. reese Review of Systems Constitutional: feeling tired, but no fever. ENT: no sore throat and no hoarseness. Cardiovascular: no chest pain and no palpitations. Respiratory: no cough. Genitourinary: no dysuria. Musculoskeletal: limb pain. Integumentary: skin wound. Neurological: no headache and no dizziness. Active Problems Diabetes mellitus type 2, uncontrolled (250.02) (E11.65) HTN (hypertension) (401.9) (I10) Low testosterone (259.9) (E34.9) Social History Former smoker (V15.82) (Z87.891) quit smoking in august 2013 No alcohol use Single Allergies No Known Drug Allergies Recorded By: Diana Pond; 07/06/2013 9:31:07 AM Current Meds Accu-Chek Loretta Plus In Vitro Strip; USE 4 TIMES A DAY; Therapy: 05Nov2014 to (Last Rx:08Mar2017) Requested for: 08Mar2017 Ordered Rx By: Sergo Victor; Dispense: 0 Days ; #:4 X 100 Strip Box; Refill: 3;For: Diabetes mellitus type 2, uncontrolled; SHASHA = N; Verified Transmission to [address]; Msg to [employer] cy: dx e 11.65 on insulin; Last Updated By: Miguelangel Meade[employer]; 03/08/2017 1:56:10 PM Accu-Chek Loretta Plus w/Device Kit; USE DIRECTED; Therapy: 05Nov2014 to (Last Rx:05Nov2014) Requested for: 05Nov2014 Ordered Rx By: Sergo Victor; Dispense: 0 Days ; #:1 Kit; Refill: 0;For: Diabetes mellitus type 2, uncontrolled; SHASHA = N; Verified Transmission to [employer] [facility] [employer] [address]; Msg to Pharmacy: dx 250.02 on insulin Accu-Chek Multiclix Lancets Miscellaneous; Uses 4 daily; Therapy: 30Mar2013 to (Last Rx:08Mar2017) Requested for: 08Mar2017 Ordered Rx By: Sergo Victor; Dispense: 0 Days ; #:4 X 102 Miscellaneous Box; Refill: 3;For: Diabetes mellitus type 2, uncontrolled; SHASHA = N; Verified Transmission to [address], [place]; Last Updated By: [employer] 03/08/2017 1:56:41 PM Accu-Chek Softclix Lancets Miscellaneous; use 4 times a day to check sugar; Therapy: 18Jan2017 to (Last Rx:18Jan2017) Requested for: 18Jan2017 Ordered Rx By: Sergo Victor; Dispense: 0 Days ; #:4 X 100 Miscellaneous Box; Refill: 3;For: Diabetes mellitus type 2, uncontrolled; SHASHA = N; Verified Transmission to [address], ; Last Updated By: [employer]; 01/18/2017 7:03:11 PM BD Pen Needle Mini U/F 31G X 5 MM Miscellaneous; use 3 daily; Therapy: 96Bnc2801 to (Last Rx:06Ypm3823) Requested for: 48Fgw8511 Ordered Rx By: Sergo Victor; Dispense: 0 Days ; #:3 X 100 Miscellaneous Box; Refill: 3;For: Diabetes mellitus type 2, uncontrolled; SHASHA = N; Verified Transmission to [address]; Last Updated By: Maurizio MeadeIBS [employer] (P); 01/18/2017 11:36:07 AM BD Pen Needle Short U/F 31G X 8 MM Miscellaneous; uses 6 daily; Therapy: 24Aug2017 to (Last Rx:24Aug2017) Requested for: 24Aug2017 Ordered Rx By: Sergo Victor; Dispense: 0 Days ; #:6 X 100 Miscellaneous Box; Refill: 3;For: Diabetes mellitus type 2, uncontrolled; SHASHA = N; Verified Transmission to [address]; [facility] o Pharmacy: E11. on insulin Gabapentin 600 MG Oral Tablet; TAKE ONE TABLET BY MOUTH ONCE DAILY; Therapy: 08Mar2017 to (Evaluate:01Apr2018) Requested for: 03Oct2017; Last Rx:03Oct2017 Ordered Rx By: Sergo Victor; Dispense: 90 Days ; #:90 TAB; Refill: 1;For: Diabetes mellitus type 2, uncontrolled; SHASHA = N; Verified Transmission to [address]; Last Updated By: Maurizio Meade[employer] ([employer]); 10/03/2017 8:04:52 PM Gabapentin 800 MG Oral Tablet; TAKE TWO TABLETS BY MOUTH EVERY DAY AT BEDTIME; Therapy: 67Rkv9567 to (Evaluate:42Nzm5543) Requested for: 03Oct2017; Last Rx:03Oct2017 Ordered Rx By: Sergo Victor; Dispense: 90 Days ; #:180 TAB; Refill: 0;For: Diabetes mellitus type 2, uncontrolled; SHASHA = N; Verified Transmission to [address]; Last Updated By: Edenilson Houston; 10/03/2017 8:09:59 PM HumuLIN R U-500 KwikPen 500 UNIT/ML Subcutaneous Solution Pen-injector; 145 units am, 95 units lunch,80 units pre-evening meal; Therapy: 07Xti9061 to (Last Rx:06May2017) Requested for: 06May2017 Ordered Rx By: Sergo Victor; Dispense: 0 Days ; #:11 X 3 ML Pen (2 Pens); Refill: 3;For: Diabetes mellitus type 2, uncontrolled; SHASHA = N; Verified Transmission to [address]; Last Upd ated By: Edenilson Meade; 05/06/2017 4:08:21 PM NovoLOG FlexPen 100 UNIT/ML Subcutaneous Solution Pen-injector; INJECT 60 UNIT Daily; Therapy: 50Lwc6667 to (Last Rx:02Aug2017) Requested for: 02Aug2017 Ordered Rx By: Sergo Victor; Dispense: 0 Days ; #:2 X 3 ML Pen (5 Pens); Refill: 5;For: Diabetes mellitus type 2, uncontrolled; SHASHA = N; Verified Transmission to [address]; Last Upda rebeka By: Edenilson Meade; 08/02/2017 10:08:38 AM TRUEplus Pen [place] 31G X 8 MM Miscellaneous; USE THREE DAILY DIRECTED; Therapy: 18Jan2017 to (Evaluate:28Sep2018) Requested for: 03Oct2017; Last Rx:03Oct2017 Ordered Rx By: Sergo Victor; Dispense: 90 Days ; #:300 EA; Refill: 3;For: Diabetes mellitus type 2, uncontrolled; SHASHA = N; Verified Transmission to [address]; Last Updated By: Edenilson Meade; 10/03/2017 8:04:51 PM Eliquis 2.5 MG Oral Tablet; TAKE ONE TABLET BY MOUTH TWICE DAILY; Therapy: 07Mar2015 to (Evaluate:28Sep2018) Requested for: 03Oct2017; Last Rx:03Oct2017 Ordered Rx By: Sergo Victor; Dispense: 90 Days ; #:60 TAB; Refill: 3;For: Health Maintenance; SHASHA = N; Verified Transmission to [address]; Last Updated By: Edenilson Meade; 10/03/2017 8:04:52 PM Omeprazole 40 MG Oral Capsule Delayed Release; TAKE 1 CAPSULE Daily; Therapy: 62Fzm7206 to (Evaluate:36Mez4859) Requested for: 08Mar2017; Last Rx:[id number] Ordered Rx By: Sergo Victor; Dispense: 90 Days ; #:90 Capsule Delayed Release; Refill: 3;For: Health Maintenance; SHASHA = N; Verified Transmission to [address]; Last Updated By: [employer]; 03/08/2017 3:16:41 PM Vitamin D (Ergocalciferol) 65405 UNIT Oral Capsule; TAKE ONE CAPSULE BY MOUTH ONCE A WEEK; Therapy: 07Apr2015 to (Evaluate:94Wuy7125) Requested for: 03Oct2017; Last Rx:03Oct2017 Ordered Rx By: Sergo Victor; Dispense: 84 Days ; #:12 Capsule; Refill: 0;For: Health Maintenance; SHASHA = N; Verified Transmission to [address]; Last Updated By: [employer]; 10/03/2017 8:09:58 PM Bystolic 10 MG Oral Tablet; Take 1 tablet daily; Therapy: 67Awc8768 to (Evaluate:88Fpi6496) Requested for: 08Mar2017; Last Rx:08Mar2017 Ordered Rx By: Sergo Victor; Dispense: 90 Days ; #:90 Tablet; Refill: 3;For: HTN (hypertension); SHASHA = N; Verified Transmission to [address]; Last Updated By: [employer]; 03/08/2017 3:16:44 PM Losartan Potassium 50 MG Oral Tablet; TAKE 1 TABLET DAILY; Therapy: 37Cwy1707 to (Evaluate:88Ceh3531) Requested for: 08Mar2017; Last Rx:[id number] Ordered Rx By: Sergo iVctor; Dispense: 90 Days ; #:90 Tablet; Refill: 3;For: HTN (hypertension); SHASHA = N; Verified Transmission to [address]; Last Updated By: [employer]; 03/08/2017 3:16:43 PM Accu-Chek Softclix Lancet Dev KIT; Therapy: 11Nov2016 to Recorded Rx By: JUAN; Dispense: 30 Days ; #:1 KIT; Refill: 0; SHASHA = N; Record; Last Updated By: Sergo Victor; 08/02/2017 9:59:04 AM Brimonidine Tartrate 0.2 % Ophthalmic Solution; Therapy: 25Nov2014 to Recorded Dispense: 30 Days ; #:5 SOLN; Refill: 0; SHASHA = N; Record; Last Updated By: Sergo Victor; 05/28/2015 10:31:19 AM Fluorouracil 2 % External Solution; Therapy: 26Jan2017 to Recorded Rx By: SOLO; Dispense: 10 Days ; #:10 SOLN; Refill: 0; SHASHA = N; Record; Last Updated By: Sergo Victor; 08/02/2017 9:59:04 AM HumuLIN R 100 UNIT/ML Injection Solution; Therapy: 30Sep2016 to Recorded Rx By: JUAN; Dispense: 6 Days ; #:3 SOLN; Refill: 0; SHASHA = N; Record; Last Updated By: Sergo Victor; 08/02/2017 9:59:04 AM Latanoprost 0.005 % Ophthalmic Solution; Therapy: 18Jun2015 to Recorded Dispense: 25 Days ; #:2 SOLN; Refill: 0; SHASHA = N; Record; Last Updated By: Diana Pond; 03/26/2016 3:55:28 PM NovoFine Autocover 30G X 8 MM Miscellaneous; Therapy: 11Nov2016 to Recorded Rx By: JUAN; Dispense: 28 Days ; #:100 MISC; Refill: 0; SHASHA = N; Record; Last Updated By: Sergo Victor; 08/02/2017 9:59:04 AM Vitals Vital Signs Recorded: 05Nov2017 11:06AM Fowqexqqcmj02.6 F, Temporal Heart Rate97 Huhaovts460, Sitting Wskjlkwhw57, Sitting O2 Sdwourlcnr62, RA Physical Exam in a w/c looks a little pale r. leg wrapped .. left leg bka chest clear mental status clear cor rrr Diagnoses/Problems Diabetes mellitus type 2, uncontrolled (250.02) (E11.65) Provider Impressions complex type 2 dm c insulin resistance improving trend with glucose control multiple co-morbid conditons Patient Discussion/Summary Sugar controlled bit better. He is on the u 500... 3 shots a day and trulicity to augment the insulin okay with him staying on trulic. tradje nta would not really add anything to that.. could be stopped and tradjenta is expensive. The morning sugars still some higher levels. We will increase the evening u500 slightly Bedtime snack. No carbohydrate at night with protein only at bedtime. follwoup 3 months increase u500 last dose of daY to 110units. stop the tradjenta. End of Encounter Meds Accu-Chek Loretta Plus In Vitro Strip; USE 4 TIMES A DAY; Therapy: 05Nov2014 to (Last Rx:08Mar2017) Requested for: 08Mar2017 Ordered Accu-Chek Loretta Plus w/Device Kit; USE DIRECTED; Therapy: 05Nov2014 to (Last Rx:05Nov2014) Requested for: 05Nov2014 Ordered Accu-Chek Multiclix Lancets Miscellaneous; Uses 4 daily; Therapy: 30Mar2013 to (Last Rx:08Mar2017) Requested for: 08Mar2017 Ordered Accu-Chek Softclix Lancet Dev KIT; Therapy: 11Nov2016 to Recorded Accu-Chek Softclix Lancets Miscellaneous; use 4 times a day to check sugar; Therapy: 85Wky1816 to (Last Rx:10Yir9060) Requested for: 27Vjr0294 Ordered BD Pen Needle Mini U/F 31G X 5 MM Miscellaneous; use 3 daily; Therapy: 18Jan2017 to (Last Rx:16Mby4200) Requested for: 74Sez1808 Ordered BD Pen Needle Short U/F 31G X 8 MM Miscellaneous; uses 6 daily; Therapy: 24Aug2017 to (Last Rx:24Aug2017) Requested for: 24Aug2017 Ordered Brimonidine Tartrate 0.2 % Ophthalmic Solution; Therapy: 25Nov2014 to Recorded Bystolic 10 MG Oral Tablet; Take 1 tablet daily; Therapy: 45Axk6839 to (Evaluate:80Bkp6584) Requested for: 08Mar2017; Last Rx:08Mar2017 Ordered Eliquis 2.5 MG Oral Tablet; TAKE ONE TABLET BY MOUTH TWICE DAILY; Therapy: 07Mar2015 to (Evaluate:44Zkp3605) Requested for: 03Oct2017; Last Rx:03Oct2017 Ordered Fluorouracil 2 % External Solution; Therapy: 29Ezy7637 to Recorded Gabapentin 600 MG Oral Tablet; TAKE ONE TABLET BY MOUTH ONCE DAILY; Therapy: 08Mar2017 to (Evaluate:49Xqh7102) Requested for: 03Oct2017; Last Rx:03Oct2017 Ordered Gabapentin 800 MG Oral Tablet; TAKE TWO TABLETS BY MOUTH EVERY DAY AT BEDTIME; Therapy: 85Bgx0496 to (Evaluate:36Dqp7312) Requested for: 03Oct2017; Last Rx:03Oct2017 Ordered HumuLIN R 100 UNIT/ML Injection Solution; Therapy: 30Sep2016 to Recorded HumuLIN R U-500 KwikPen 500 UNIT/ML Subcutaneous Solution Pen-injector; 145 units am, 95 units lunch,80 units pre-evening meal; Therapy: 27Xrh1067 to (Last Rx:06May2017) Requested for: 06May2017 Ordered Latanoprost 0.005 % Ophthalmic Solution; Therapy: 18Jun2015 to Recorded Losartan Potassium 50 MG Oral Tablet; TAKE 1 TABLET DAILY; Therapy: 00Ybv5074 to (Evaluate:58Eeg2019) Requested for: 08Mar2017; Last Rx:08Mar2017 Ordered NovoFine Autocover 30G X 8 MM Miscellaneous; Therapy: 11Nov2016 to Recorded NovoLOG FlexPen 100 UNIT/ML Subcutaneous Solution Pen-injector; INJECT 60 UNIT Daily; Therapy: 22Hrp4233 to (Last Rx:18Uhm5187) Requested for: 41Acp9984 Ordered Omeprazole 40 MG Oral Capsule Delayed Release; TAKE 1 CAPSULE Daily; Therapy: 51Oht1435 to (Evaluate:14Pwy9750) Requested for: 08Mar2017; Last Rx:08Mar2017 Ordered TRUEplus Pen [place] 31G X 8 MM Miscellaneous; USE THREE DAILY DIRECTED; Therapy: 68Ijd7869 to (Evaluate:28Sep2018) Requested for: 03Oct2017; Last Rx:03Oct2017 Ordered Vitamin D (Ergocalciferol) 05523 UNIT Oral Capsule; TAKE ONE CAPSULE BY MOUTH ONCE A WEEK; Therapy: 07Apr2015 to (Evaluate:49Ubg8358) Requested for: 03Oct2017; Last Rx:03Oct2017 Ordered Signatures Electronically signed by : Sergo Victor MD; Nov 07 2017 11:31AM EST (Author) CBC-COMPLETE BLOOD CNT Collected: 11/04/2017 Status: F Source: RUDY NO DIFF 12:20 PM [facility] REPOSITORY TYPE CODE TESTS RESULT OUT OF RANGE REFERENCE UNITS LAB L100.1000 4.4-11.0 K/mm3 Normal WBC 10.0 LAB L100.1200 4.6-6.2 M/mm3 Low RBC 3.61 LAB L100.1300 13.0-16.5 g/dl Low HGB 9.4 LAB L100.1400 40-54 % Low HCT 30.7 LAB L100.1500 80-94 fL Normal MCV 85.0 LAB L100.1600 27.0-32.0 pg Low MCH 26.0 LAB L100.1700 32-36 g/gl Low MCHC 30.6 LAB L100.1810 11.6-14.6 % High RDW CV 16.9 LAB L100.1820 35.1-43.9 fl High RDW SD 52.3 LAB L100.1900 150-450 K/mm3 Normal PLT 205 LAB L100.2000 6.2-12.0 fl Normal MPV 9.9 Performed By: #### L100.0500 #### [facility] [address] [place], [place], [address] RENAL PROFILE Collected: 11/04/2017 Status: F Source: RUDY 12:20 PM [facility] REPOSITORY TYPE CODE TESTS RESULT OUT OF RANGE REFERENCE UNITS LAB L501.0100 74-106 mg/dL High GLU 154 Result Comment: Fasting Glucose result greater than or equal to 126 mg/dL suggests DIABETES MELLITUS per A.D.A. criteria. Please note revised GLUCOSE reference range effective 2017. LAB L501.1000 7-18 mg/dL High BUN 51 LAB L501.1100 0.70-1.30 mg/dL High CREAT,SERUM 1.92 Result Comment: The validity of the calculated GFR AND GFRAA in patients over 70 years has not been determined. Clinical correlation is essential. LAB L501.1110 >60 mL/min Low EST GFR 38 Result Comment: Non- GFR Calc LAB L501.1115 >60 mL/min Low EST GFR - AA 46 Result Comment: GFR Calc LAB L501.1300 10-20 RATIO High BUN/CRE 26.6 LAB L501.1800 3.2-5.0 g/dL Low ALB 2.9 LAB L501.2200 8.5-10.1 mg/dL CA Normal 9.0 LAB L501.2300 2.5-4.9 mg/dL Normal PHOS 3.4 LAB L501.5300 136-145 mmol/L NA Normal 142 LAB L501.5600 3.5-5.1 mmol/L K Normal 4.8 LAB L501.5900 98-107 mmol/L CL Normal 105 LAB L501.6100 21.0-32.0 mmol/L Normal CO2 25.0 Performed By: #### L500.3600 #### [facility] [address] [place], [address] PTHIN Collected: 11/04/2017 Status: F Source: ELSINORE 12:20 PM [facility] REPOSITORY TYPE CODE TESTS RESULT OUT OF RANGE REFERENCE UNITS LAB L509.1000 18.4-80.1 pg/mL Normal PTHIN 38.9 Performed By: #### L509.1000 #### [facility] [address] [place], [address] OT D/C OF NON Observed: 11/03/2017 Status: F Source: ELSINORE RETURNING PT 11:39 AM [facility] REPOSITORY [facility] [place], [place] [address] Fax REHABILITATION SERVICES DISCHARGE SUMMARY MR#: [id number] Acct: [id number] Name: DEL BARRIOS Rep #: [id number] : 1960 57 From: Meera Martinez OTR/Fred, CHT Referring DrVj: Rachele Lux DPM Status: REG RCR Eval Date: Discharge Date: HP - Discharge Summary - Patient Information DEL BARRIOS was seen in my office for initial evaluation on 07/16/17. The following Plan of Care was established for this patient: Initial Frequency: Monthly Initial Duration: 3 Months - Anticipated Interventions Anticipated Interventions: Education re Diagnosis, Manual Lymph Drainage, Education re Life-long lymphedema Management, Education re Correct Donning Tech,Care AND Wearing Sched Comp Garments, Caregiver Training This patient was last seen in our office 07/16/17. Pertinent comments regarding their Occupational therapy will appear below: pt was seen for custom compression garments- one for is left LE was a stump- the other was thigh high- orders and measurments were sent to [facility] for insurance approval- spoke with Alanna at [facility] and she states insurance does not cover the compression socks. She spoke with Del and he stated he can not pay for the compression socks - so they were not ordered. pt unable to follow POC as he is unable to pay for compression socks. pt d/c due to non attendance- At this point I will be discontinuing this patient from occupational therapy. I would be happy to see this patient again in the future if found appropriate by the physician. Thank you! ALLEN Cook/Fred CHT <Electronically signed by Meera VILLA/MEERA Ware> 11/03/17 1139 CC: Rachele Lux DPM; OUT OF TOWN DOCTOR MK Signed LOW DOSE CT LUNG Observed: 10/29/2017 Status: F Source: ELSINORE SCREENING 12:35 PM [facility] REPOSITORY [facility] [address] [place] [address] Lung Screening MR#: [id number] Acct: [id number] Name: DEL BARRIOS Rep #: [id number] : 1960 M 57 From: Renetta Huffman PCP: Kobe CARDENAS,Arnie Watson Status: REG CLI Study: Low Dose CT Lung Screening Date of Exam: 10/29/17 Exam# [id number] Ordering Dr: Arnie Reese MD STUDY: LOW DOSE CT LUNG CANCER SCREENING REASON FOR EXAM: Male, 57 years old. Tobacco abuse x 49 years. Positive PPD. RADIATION DOSAGE (If Supplied By Facility): CTDIvol = ( 4.02 ) mGy, DLP = ( 119.84 ) mGycm TECHNIQUE: No contrast was administered. Low dose technique was utilized (average mAS-38 and kVp 120). 1.25 mm axial source images with a slice interval of 1.25- mm were reconstructed in lung windows. 2.5 mm axial source images with a slice interval of 2.5-mm were reconstructed in lung windows. 5.0 mm axial source images with a slice interval of 5.0-mm were reconstructed in soft tissue windows. Nodule measured using lung windows on PACS and/or independent workstation with automated measurement of minimum and maximum diameter. Nodule measurement reported as average diameter rounded to the nearest whole number. Growth is defined as an increase ins size of greater than 1.5 mm. COMPARISON: None. NODULES: No worrisome lung nodule or mass identified. There is patchy area with airspace disease/consolidation demonstrated in the left lung base with associated small pleural effusion. Linear areas of atelectasis in the lingula. Moderate pleural thickening is seen anteriorly/laterally in the left hemithorax. Bilaterally there is low lung volume. Endobronchial lesion: Aorta: There is mild atherosclerotic calcification of the aortic arch. Coronary arteries: Significant atherosclerotic calcification of the coronary arteries. Heart: Normal in size. Increased pericardial fat pad. Pulmonary artery: Unremarkable. Mediastinal nodes: Few small reactive mediastinal lymph nodes are seen. No demonstrated lymphadenopathy. Other chest and abdominal findings: There is diffuse fatty hepatic infiltration. Hepatosplenomegaly. Multilevel degenerative thoracic endplate spondylosis. CT/Low Dose CT Lung Screening IMPRESSION: Lung-RADS category 3 - Continue screening with LDCT in 6 months. Left lung base: Airspace disease/consolidation. A small left pleural effusion. Atherosclerotic coronary arterial disease. Hepatic steatosis. Hepatosplenomegaly. IMPORTANT NOTES FOR USE: ACR Lung-RADS Version 1.0 Assessment Categories Release Date: October 02, 2013 Category: Coded 0-4 bases on nodule(s) with highest degree of suspicion. Negative screen is defined as categories 1 and 2; a positive screen is defined as categories 3 and 4. Category 3 and 4A nodules that are unchanged on interval CT should be coded as category 2, and individuals returned to screening in 12 months. Category 4X: Category 3 or 4 nodules with additional imaging findings that increase the suspicion of lung cancer, such as spiculation, GGN that doubles in size in 1 year, enlarged lymph notes, etc. Category Modifiers: S (significant finding unrelated to lung cancer) and C (prior history of treated lung cancer) may be added to the 0-4 Lung-RADS Electronically Signed: Thaddeus Huffman MD at 9:44 EDT Tel , Service support , CC: Arnie Reese MD Overlock Operator: Signed KIDNEY AND BLADDER Observed: 10/29/2017 Status: F Source: ELSINORE 12:27 PM [facility] REPOSITORY [facility] [address] [place] [address] Kidney and Bladder MR#: [id number] Acct: [id number] Name: DEL BARRIOS Rep #: [id number] : 1960 M 57 From: Nabeel Castro MD PCP: Arnie Reese MD, Chi Status: REG CLI Study: Kidney and Bladder Date of Exam: 10/29/17 Exam# [id number] Ordering Dr: Arnie Reese MD STUDY: RENAL ULTRASOUND - COMPLETE REASON FOR EXAM: Male, 57 years old. ARF LOW BACK PAIN TECHNIQUE: Ultrasound evaluation of the kidneys was performed with real-time and static atkinson-scale imaging. COMPARISON: None. FINDINGS: RIGHT KIDNEY: Normal location of the right kidney, which is normal in size. The right kidney measures 13.4X5.5X6.6 cm. There is a normal cortex of the right kidney. The renal cortex measures 2.1 cm. There is no right renal mass or cyst. There are no right renal calculi. There is no right hydronephrosis. DISTAL RIGHT URETER: There is non-visualization of the distal right ureter. There is no demonstrated right ureterovesical junction calculus. There is a visualized right ureteral jet. LEFT KIDNEY: Normal location of the left kidney, which is normal in size. The left kidney measures 12X6.1X5.4 cm. There is a normal cortex of the left kidney. The renal cortex measures 1.8 cm. 3 cysts. These measure 36 x 39x 37 millimeter , 21 x 18 x 20 mm, and 16 x 13 x 15 mm. There are no left renal calculi. There is no left hydronephrosis. DISTAL LEFT URETER: There is non-visualization of the distal left ureter. There is no demonstrated left ureterovesical junction calculus. There is a visualized left ureteral jet. AORTA: There is obscuration of the abdominal aorta by overlying bowel gas I.V.C.: The IVC is obscured. BLADDER: The distended urinary bladder has a volume of 841 ml. The empty urinary bladder has a volume of 278 ml. There is a normal wall thickness of the distended urinary bladder. There is no demonstrated mass within the urinary bladder. There are no demonstrated bladder calculi. US/Kidney and Bladder IMPRESSION: Simple left renal cyst. Electronically Signed: Nabeel Castro MD at 17:49 EDT , Service support , CC: Arnie Reese MD Overlock Operator: Signed SPINE LUMBAR Observed: 10/29/2017 Status: F Source: ELSINORE (ROUTINE) 10:02 AM [facility] REPOSITORY [facility] [address] [place] [address] Spine Lumbar (Routine) MR#: [id number] Acct: [id number] Name: DEL BARRIOS Rep #: [id number] : 1960 57 From: Delia Brunner MD PCP: Arnie Reese MD, Chi Status: REG CLI Study: Spine Lumbar (Routine) Date of Exam: 10/29/17 Exam# [id number] Ordering Dr: Arnie Reese MD STUDY: MRI LUMBAR SPINE WITHOUT CONTRAST REASON FOR EXAM: Male, 57 years old. LOW BACK PAIN, left leg pain. Fall injury 40 years ago TECHNIQUE: Standardized fat and water weighted pulse sequences were obtained in the sagittal and axial planes. COMPARISON: X-ray October 14, 2017 FINDINGS: Normal lumbar lordosis. There is no substantial scoliosis. Normal conus medullaris that terminates at the T12-L1 level. There is no spondylolisthesis. There is loss of disc height at L3-4. Vertebral body heights are maintained. There is a L4 subchondral cyst at L3-4. There is multilevel facet arthropathy and ligamentum flavum hypertrophy. T12/L1: Sagittal images only were obtained. No disc bulge or herniation or central canal or neural foraminal stenosis is demonstrated. L1/2: Normal disc. No central canal or neuroforaminal stenosis. L2/3: Normal disc. No central canal stenosis. There is mild bilateral neuroforaminal stenosis. L3/4: There is a diffuse bulge slightly larger on the right. There are central and right foraminal protrusions. There is impression on the ventral thecal sac and moderate right and mild left neuroforaminal stenosis. L4/5: There is a mild diffuse bulge. There is no central canal stenosis. There is moderate bilateral neuroforaminal stenosis. L5/S1: There is a diffuse bulge slightly larger on the right. There is no central canal stenosis. There is moderate right and mild left neuroforaminal stenosis. The disc contacts the right S1 nerve root in the right paracentral region. Normal visualized sacral ala. There are partially imaged cystic structures of the left kidney. MRI/Spine Lumbar (Routine) IMPRESSION: Multilevel degenerative changes, as described above. L2/3: There is mild bilateral neuroforaminal stenosis. L3/4: There is a diffuse bulge slightly larger on the right. There are central and right foraminal protrusions. There is moderate right and mild left neuroforaminal stenosis. L4/5: There is a mild diffuse bulge. There is moderate bilateral neuroforaminal stenosis. L5/S1: There is a diffuse bulge slightly larger on the right. There is moderate right and mild left neuroforaminal stenosis. The disc contacts the right S1 nerve root in the right paracentral region. Electronically Signed: Delia Brunner MD at 13:08 EDT , Service support , CC: Arnie Reese MD Overlock Operator: Signed PROTEIN+CREATININE Collected: Status: F Source: RUDY RATIO,URINE 10/20/2017 3:51 PM [facility] REPOSITORY TYPE CODE TESTS RESULT OUT OF RANGE REFERENCE UNITS LAB L501.1200 NO RANGE EST. mg/dL Normal UR CREAT 48.30 LAB L501.1930 <11.9 mg/dL High 96.8 PROTEIN,UR.R AN. LAB L501.1940 0-200 mg/g CRE High PROT:CRE 2004 RATIO Performed By: #### L501.0900 #### [facility] [address] [place], [address] LUMBAR SPINE 2 OR 3 Observed: 10/14/2017 Status: F Source: RUDY VIEWS 2:28 PM [facility] REPOSITORY [facility] [address] [place] [address] Lumbar Spine 2 or 3 Views MR#: [id number] Acct: [id number] Name: DEL BARRIOS Rep #: [id number] : 1960 M 57 From: Saeed Jeffrey MD PCP: Arnie Reese MD, Chi Status: REG CLI Study: Lumbar Spine 2 or 3 Views Date of Exam: 10/14/17 Exam# [id number] Ordering Dr: Arnie eRese MD STUDY: X-RAY - LUMBAR SPINE REASON FOR EXAM: Male, 57 years old. Chronic back pain. TECHNIQUE: AP and lateral view(s) of the lumbar spine were obtained. COMPARISON: None FINDINGS: Normal lumbar lordosis. There is no substantial scoliosis. There is a normal alignment of the vertebrae. There is multilevel endplate spondylosis of the lumbar vertebrae. Mild degree of disc space narrowing and disc degeneration at the L3-L4 level. There is atherosclerotic calcification of the abdominal aorta without a demonstrated aneurysm. RAD/Lumbar Spine 2 or 3 Views IMPRESSION: Degenerative changes of the spine, as detailed above. Electronically Signed: Saeed Jeffrey MD at 15:16 EDT Tel [phone], Service support , CC: Arnie Reese MD Overlock Operator: Signed BASIC METABOLIC Collected: 10/14/2017 Status: F Source: ELSINORE PROFILE (BMP) 12:17 PM [facility] REPOSITORY TYPE CODE TESTS RESULT OUT OF RANGE REFERENCE UNITS LAB L501.0100 74-106 mg/dL High GLU 313 Result Comment: Glucose result greater than or equal to 200 mg/dL suggests DIABETES MELLITUS per A.D.A. criteria. Please note revised GLUCOSE reference range effective 2017. LAB L501.1000 7-18 mg/dL High BUN 51 LAB L501.1100 0.70-1.30 mg/dL High CREAT,SERUM 2.11 Result Comment: The validity of the calculated GFR AND GFRAA in patients over 70 years has not been determined. Clinical correlation is essential. LAB L501.1110 >60 mL/min Low EST GFR 34 Result Comment: Non- GFR Calc LAB L501.1115 >60 mL/min Low EST GFR - AA 42 Result Comment: GFR Calc LAB L501.1300 10-20 RATIO High BUN/CRE 24.2 LAB L501.2200 8.5-10.1 mg/dL CA Normal 8.9 LAB L501.5300 136-145 mmol/L NA Normal 139 LAB L501.5600 3.5-5.1 mmol/L K Normal 4.9 LAB L501.5900 98-107 mmol/L CL Normal 103 LAB L501.6100 21.0-32.0 mmol/L Normal CO2 25.0 LAB L501.6200 5-15 Normal GAP 11 Performed By: #### L500.2500 #### [facility] [address] [place], [place], [address] HGB A1C GLYCOHB Collected: 10/11/2017 Status: F Source: [facility] 9:00 AM [facility] REPOSITORY TYPE CODE TESTS RESULT OUT OF REFERENCE UNITS RANGE LAB L550.74726 4.3-6.0 % High HGB A1C 8.3 GLYCOHB Performed By: #### L550.89247 #### [facility] [address] [place] [address] COMPREHENSIVE METABOLIC Collected: 10/01/2017 Status: F Source: RUDY LAU 11:57 AM [facility] REPOSITORY TYPE CODE TESTS RESULT OUT OF RANGE REFERENCE UNITS LAB L501.0100 74-106 mg/dL High GLU 236 Result Comment: Glucose result greater than or equal to 200 mg/dL suggests DIABETES MELLITUS per A.D.A. criteria. Please note revised GLUCOSE reference range effective 2017. LAB L501.1000 7-18 mg/dL High BUN 49 LAB L501.1100 0.70-1.30 mg/dL High CREAT,SERUM 1.95 Result Comment: The validity of the calculated GFR AND GFRAA in patients over 70 years has not been determined. Clinical correlation is essential. LAB L501.1110 >60 mL/min Low EST GFR 38 Result Comment: Non- GFR Calc LAB L501.1115 >60 mL/min Low EST GFR - AA 46 Result Comment: GFR Calc LAB L501.1300 10-20 RATIO High BUN/CRE 25.1 LAB L501.1500 6.4-8.2 g/dL T Normal PROT 8.0 LAB L501.1800 3.2-5.0 g/dL Low ALB 3.1 LAB L501.1950 2.2-4.2 g/dL High GLOB 4.9 LAB L501.2000 0.9-2.4 RATIO Low A/G 0.6 LAB L501.2200 8.5-10.1 mg/dL CA Normal 8.7 LAB L501.4100 15-37 U/L High AST 40 LAB L501.4305 45-117 U/L Normal ALK P 84 LAB L501.4405 16-61 U/L Normal ALT 57 LAB L501.4600 0.20-1.00 mg/dL T Normal BILI 0.60 LAB L501.5300 136-145 mmol/L NA Normal 138 LAB L501.5600 3.5-5.1 mmol/L High K 5.2 LAB L501.5900 98-107 mmol/L CL Normal 106 LAB L501.6100 21.0-32.0 mmol/L Normal CO2 26.0 LAB L501.6200 5-15 Normal GAP 6 Performed By: #### L500.4050, L501.9520, L501.9910 #### [facility] [address] [place], [address] THYROID STIM HORMONE Collected: 10/01/2017 Status: F Source: RUDY (TSH) 11:57 AM [facility] REPOSITORY TYPE CODE TESTS RESULT OUT OF RANGE REFERENCE UNITS LAB L501.9520 0.358-3.74 uIU/mL Normal TSH 2.44 Performed By: #### L500.4050, L501.9520, L501.9910 #### [facility] [address] [facility] [place], [address] PSA,TOTAL - ANNUAL Collected: 10/01/2017 Status: F Source: RUDY SCREEN 11:57 AM [facility] REPOSITORY TYPE CODE TESTS RESULT OUT OF RANGE REFERENCE UNITS LAB L501.9910 0.00-4.00 ng/mL Normal PSA,TOT 0.14 SCREEN Result Comment: This test was performed using the TPSA assay method for the [employer] chemistry system. Values obtained with different assay methods cannot be used interchangably. When changing PSA assays in the course of monitoring a patient, additional sequential testing should be carried out to confirm baseline values. Performed By: #### L500.4050, L501.9520, L501.9910 #### [facility] [address] [place], [place], [address] CBC W/DIFF, AUTOMATED Collected: 10/01/2017 Status: F Source: RUDY 11:57 AM [facility] REPOSITORY TYPE CODE TESTS RESULT OUT OF RANGE REFERENCE UNITS LAB L100.1000 4.4-11.0 K/mm3 Normal WBC 8.0 LAB L100.1200 4.6-6.2 M/mm3 Low RBC 3.73 LAB L100.1300 13.0-16.5 g/dl Low HGB 10.1 LAB L100.1400 40-54 % Low HCT 32.6 LAB L100.1500 80-94 fL Normal MCV 87.4 LAB L100.1600 27.0-32.0 pg Normal MCH 27.1 LAB L100.1700 32-36 g/gl Low MCHC 31.0 LAB L100.1810 11.6-14.6 % High RDW CV 16.2 LAB L100.1820 35.1-43.9 fl High RDW SD 50.3 LAB L100.1900 150-450 K/mm3 Normal PLT 183 LAB L100.2000 6.2-12.0 fl Normal MPV 11.2 LAB L100.2100 47-70 % High NEUT% 72.1 LAB L100.2200 19-41 % Low LY% 16.3 LAB L100.2300 0-10 % Normal MONO% 6.5 LAB L100.2400 0-5 % Normal EO% 3.3 LAB L100.2500 0-1 % Normal BASO% 0.4 LAB L100.2550 0.0-0.9 % High IM GRAN % 1.400 Result Comment: IG% - Immature Granulocytes (promyelocytes, myelocytes and metamyelocytes) > 1% indicates that a LEFT SHIFT is Present. LAB L100.2620 2.0-7.7 X10 3/uL Normal Absolute Neut 5.8 LAB L100.2720 0.83-4.51 X10 3/ul Normal Absolute Lymph 1.30 Performed By: #### L100.0100 #### [facility] [address] [facility] [place], [place], [address] HEPATITIS C ANTIBODIES Collected: 10/01/2017 Status: F Source: ELSINORE 11:57 AM [facility] REPOSITORY TYPE CODE TESTS RESULT OUT OF RANGE REFERENCE UNITS LAB L3100.0650 0.0-0.9 s/co ratio Normal HEP C AB <0.1 Result Comment: Negative: < 0.8 Indeterminate: 0.8 - 0.9 Positive: > 0.9 The CDC recommends that a positive HCV antibody result be followed up with a HCV Nucleic Acid Amplification test ([id number]). Performed at: [facility] [id number] Form Setter Supervisor: Matthias Reeder PhD, Phone: [phone] Performed By: #### L3100.0625 #### [facility] (refer to report for specific site) refer to report for address and phone number BEDSIDE GLUCOSE Collected: 09/27/2017 Status: F Source: RUDY 6:15 AM [facility] REPOSITORY TYPE CODE TESTS RESULT OUT OF REFERENCE UNITS RANGE LAB L501.080 70-110 mg/dL High BEDSIDE GLU 238 Result Comment: MANAGEMENT OF PATIENT CARE PER NURSING PROTOCOL Performed By: #### L501.080 #### [facility] Point of Care [address] [place] [address] BEDSIDE GLUCOSE Collected: 09/26/2017 Status: F Source: RUDY 8:50 PM [facility] REPOSITORY TYPE CODE TESTS RESULT OUT OF REFERENCE UNITS RANGE LAB L501.080 70-110 mg/dL High BEDSIDE GLU 334 Result Comment: MANAGEMENT OF PATIENT CARE PER NURSING PROTOCOL Performed By: #### L501.080 #### [facility] Point of Care [address] [place] [address] BEDSIDE GLUCOSE Collected: 09/26/2017 Status: F Source: RUDY 4:56 PM [facility] REPOSITORY TYPE CODE TESTS RESULT OUT OF REFERENCE UNITS RANGE LAB L501.080 70-110 mg/dL High BEDSIDE GLU 286 Result Comment: MANAGEMENT OF PATIENT CARE PER NURSING PROTOCOL Performed By: #### L501.080 #### [facility] Point of Care [address] [place] [address] BEDSIDE GLUCOSE Collected: 09/26/2017 Status: F Source: RUDY 11:09 AM [facility] REPOSITORY TYPE CODE TESTS RESULT OUT OF REFERENCE UNITS RANGE LAB L501.080 70-110 mg/dL High BEDSIDE GLU 331 Result Comment: MANAGEMENT OF PATIENT CARE PER NURSING PROTOCOL Performed By: #### L501.080 #### [facility] Point of Care [address] [place] [address] BEDSIDE GLUCOSE Collected: 09/26/2017 Status: F Source: RUDY 6:26 AM [facility] REPOSITORY TYPE CODE TESTS RESULT OUT OF REFERENCE UNITS RANGE LAB L501.080 70-110 mg/dL High BEDSIDE GLU 282 Result Comment: MANAGEMENT OF PATIENT CARE PER NURSING PROTOCOL Performed By: #### L501.080 #### [facility] Point of Care [address] [place] [address] BEDSIDE GLUCOSE Collected: 09/25/2017 Status: F Source: RUDY 8:56 PM [facility] REPOSITORY TYPE CODE TESTS RESULT OUT OF REFERENCE UNITS RANGE LAB L501.080 70-110 mg/dL High BEDSIDE GLU 329 Result Comment: MANAGEMENT OF PATIENT CARE PER NURSING PROTOCOL Performed By: #### L501.080 #### [facility] Point of Care [address] [place] [address] BEDSIDE GLUCOSE Collected: 09/25/2017 Status: F Source: RUDY 4:36 PM [facility] REPOSITORY TYPE CODE TESTS RESULT OUT OF REFERENCE UNITS RANGE LAB L501.080 70-110 mg/dL High BEDSIDE GLU 335 Result Comment: MANAGEMENT OF PATIENT CARE PER NURSING PROTOCOL Performed By: #### L501.080 #### [facility] Point of Care [address] [place] [address] BEDSIDE GLUCOSE Collected: 09/25/2017 Status: F Source: RUDY 10:58 AM [facility] REPOSITORY TYPE CODE TESTS RESULT OUT OF REFERENCE UNITS RANGE LAB L501.080 70-110 mg/dL High BEDSIDE GLU 338 Result Comment: Dr Orders Followed MANAGEMENT OF PATIENT CARE PER NURSING PROTOCOL Performed By: #### L501.080 #### [facility] Point of Care [address] [place] [address] BEDSIDE GLUCOSE Collected: 09/25/2017 Status: F Source: RUDY 10:52 AM [facility] REPOSITORY TYPE CODE TESTS RESULT OUT OF REFERENCE UNITS RANGE LAB L501.080 70-110 mg/dL High BEDSIDE GLU 304 Result Comment: Dr Orders Followed MANAGEMENT OF PATIENT CARE PER NURSING PROTOCOL Performed By: #### L501.080 #### [facility] Point of Care [address] [place] [address] DISCHARGE INSTRUCTION Observed: 09/25/2017 Status: F Source: RUDY 10:50 AM [facility] REPOSITORY [facility] Medical Records Department [address] [place] [address] Instructions for Home/Discharge Instructions 09/25/17 1049 MR#: [id number] Acct: [id number] Name: DEL BARRIOS Rep #: [id number] : 1960 57 From: Rachele Lux DPM PCP: OUT OF TOWN DOCTOR Status: ADM IN Discharge Diet: No Restrictions Discharge Activity: - - Non ambulatory. Weight Bearing Status: No weight bearing Keep extremity elevated above heart level: Left Leg, Right Leg Call your doctor if your incision/area has: Continuous Slow Oozing, Sudden Increased Bleeding, Increased Pain/ Swelling, Increased Redness, Foul Smelling Discharge Call your doctor if you observe: Fever of 101 or Higher, Inability to urinate, Inability to have a bowel movement, Shortness of breath, Chest pain, Uncontrolled pain Cleanse incision/area with: Keep Dressing Clean AND Dry - if wound vac is placed prior to discharge; keep intact until follow up with Dr. Lux ifwound vac not placed prior to discharge; contact Dr. Lux for different orders Allergies/Adverse Reactions: Allergies bee venom protein (honey bee) Allergy (Verified 09/09/17 08:38) Swelling metronidazole [From Flagyl] Allergy (Verified 09/09/17 08:38) Itching Medications to take at Discharge Atorvastatin Calcium [Lipitor] 10 mg PO QHS 01/08/17 Brimonidine Tartrate 0.2% [Brimonidine 0.2% 5Ml Bottle] 1 drop EACH EYE BID 01/08/17 Ergocalciferol [Vitamin D] 50,000 unit PO FR 01/08/17 Gabapentin [Neurontin] 1,600 mg PO QHS 01/08/17 Gabapentin [Neurontin] 600 mg PO DAILY 01/08/17 Insulin U-500 [Humulin R U-500 (BKC)] 105 units SC DINNER 01/08/17 Insulin U-500 [Humulin R U-500 (BKC)] 105 units SC LUNCH 01/08/17 Insulin U-500 [Humulin R U-500 (BKC)] 160 units SC BREAKFAST 01/08/17 Latanoprost 0.005% [Xalatan Opthalmic] 1 drop EACH EYE QHS 01/08/17 Losartan Potassium [Cozaar] 50 mg PO DAILY 01/08/17 Nebivolol HCl [Bystolic (Beta Jeet)] 10 mg PO DAILY 01/08/17 Omeprazole [Prilosec] 40 mg PO DAILY 01/08/17 Acetaminophen [Tylenol Tablet] 650 mg PO Q6H PRN PRN tablet 09/07/17 Clopidogrel Bisulfate [Plavix] 75 mg PO DAILY 09/07/17 Menthol/Lanolin/Calamine/Znox [Calmoseptine Ointment] 1 applic TOPICAL 0600,2200 tube 09/21/17 Nutritional Supplement [Madhu - ORANGE FLAVOR] 1 packet PO BIDCM #60 packet 09/21/17 Nystatin Powder [Mycostatin Powder] 1 applic TOPICAL 0600,2200 bottle 09/21/17 The following prescriptions were given: Nutritional Supplement [Madhu - ORANGE FLAVOR] 1 packet PO BIDCM #60 packet Primary Care Physician: [facility] Doctor,Out of [Primary Care Provider] - Please follow up with your Primary Care Physician in: 1 week. Please Follow Up With: Arnie Reese Chi, MD Please Follow Up With: Rachele Lux DPM When: 1 week at wound center. if not able to get in, call [phone] Proposed Discharge Date: 09/27/17 09/25/17 1050 <Electronically signed by Rachele Lux DPM> Date Rachele Lux DPM CC: Rachele Lux DPM; OUT OF [facility] DOCTOR; Dale Daigle MD BEDSIDE GLUCOSE Collected: 09/25/2017 Status: F Source: RUDY 6:23 AM [facility] REPOSITORY TYPE CODE TESTS RESULT OUT OF REFERENCE UNITS RANGE LAB L501.080 70-110 mg/dL High BEDSIDE GLU 225 Result Comment: MANAGEMENT OF PATIENT CARE PER NURSING PROTOCOL Performed By: #### L501.080 #### [facility] Point of Care [address] [place], [place] [address] BEDSIDE GLUCOSE Collected: 09/24/2017 Status: F Source: RUDY 9:10 PM [facility] REPOSITORY TYPE CODE TESTS RESULT OUT OF REFERENCE UNITS RANGE LAB L501.080 70-110 mg/dL High BEDSIDE GLU 308 Result Comment: MANAGEMENT OF PATIENT CARE PER NURSING PROTOCOL Performed By: #### L501.080 #### [place] Point of Care [address] [place] [address] BEDSIDE GLUCOSE Collected: 09/24/2017 Status: F Source: RUDY 4:45 PM [facility] REPOSITORY TYPE CODE TESTS RESULT OUT OF REFERENCE UNITS RANGE LAB L501.080 70-110 mg/dL High BEDSIDE GLU 238 Result Comment: MANAGEMENT OF PATIENT CARE PER NURSING PROTOCOL Performed By: #### L501.080 #### [facility] Point of Care [address] [place] [address] BEDSIDE GLUCOSE Collected: 09/24/2017 Status: F Source: RUDY 12:55 PM [facility] REPOSITORY TYPE CODE TESTS RESULT OUT OF REFERENCE UNITS RANGE LAB L501.080 70-110 mg/dL High BEDSIDE GLU 348 Result Comment: MANAGEMENT OF PATIENT CARE PER NURSING PROTOCOL Performed By: #### L501.080 #### [facility] Point of Care [address] [place] [address] BEDSIDE GLUCOSE Collected: 09/24/2017 Status: F Source: RUDY 11:41 AM [facility] REPOSITORY TYPE CODE TESTS RESULT OUT OF REFERENCE UNITS RANGE LAB L501.080 70-110 mg/dL High BEDSIDE GLU 327 Result Comment: Dr Orders Followed MANAGEMENT OF PATIENT CARE PER NURSING PROTOCOL Performed By: #### L501.080 #### [facility] Point of Care [address] [place] [address] BEDSIDE GLUCOSE Collected: 09/24/2017 Status: F Source: RUDY 11:39 AM [facility] REPOSITORY TYPE CODE TESTS RESULT OUT OF REFERENCE UNITS RANGE LAB L501.080 70-110 mg/dL High BEDSIDE GLU 318 Result Comment: Dr Orders Followed MANAGEMENT OF PATIENT CARE PER NURSING PROTOCOL Performed By: #### L501.080 #### [facility] Point of Care [address] [place] [address] BEDSIDE GLUCOSE Collected: 09/24/2017 Status: F Source: RUDY 6:40 AM [facility] REPOSITORY TYPE CODE TESTS RESULT OUT OF REFERENCE UNITS RANGE LAB L501.080 70-110 mg/dL High BEDSIDE GLU 240 Result Comment: MANAGEMENT OF PATIENT CARE PER NURSING PROTOCOL Performed By: #### L501.080 #### [facility] Point of Care [address] [place] [address] CBC W/DIFF, AUTOMATED Collected: 09/24/2017 Status: F Source: RUDY 5:40 AM [facility] REPOSITORY TYPE CODE TESTS RESULT OUT OF RANGE REFERENCE UNITS LAB L100.1000 4.4-11.0 K/mm3 Normal WBC 6.8 LAB L100.1200 4.6-6.2 M/mm3 Low RBC 3.22 LAB L100.1300 13.0-16.5 g/dl Low HGB 8.7 LAB L100.1400 40-54 % Low HCT 27.9 LAB L100.1500 80-94 fL Normal MCV 86.6 LAB L100.1600 27.0-32.0 pg Normal MCH 27.0 LAB L100.1700 32-36 g/gl Low MCHC 31.2 LAB L100.1810 11.6-14.6 % High RDW CV 15.5 LAB L100.1820 35.1-43.9 fl High RDW SD 47.2 LAB L100.1900 150-450 K/mm3 Normal PLT 160 LAB L100.2000 6.2-12.0 fl Normal MPV 11.1 LAB L100.2100 47-70 % High NEUT% 70.3 LAB L100.2200 19-41 % Low LY% 16.6 LAB L100.2300 0-10 % Normal MONO% 8.3 LAB L100.2400 0-5 % Normal EO% 3.8 LAB L100.2500 0-1 % Normal BASO% 0.3 LAB L100.2550 0.0-0.9 % Normal IM GRAN % 0.700 Result Comment: IG% - Immature Granulocytes (promyelocytes, myelocytes and metamyelocytes) > 1% indicates that a LEFT SHIFT is Present. LAB L100.2620 2.0-7.7 X10 3/uL Normal Absolute Neut 4.8 LAB L100.2720 0.83-4.51 X10 3/ul Normal Absolute Lymph 1.12 Performed By: #### L100.0100 #### [facility] [address] [facility] [address] [place], [place], [address] BASIC METABOLIC Collected: 09/24/2017 Status: F Source: ELSINORE PROFILE (BMP) 5:40 AM [facility] REPOSITORY TYPE CODE TESTS RESULT OUT OF RANGE REFERENCE UNITS LAB L501.0100 74-106 mg/dL High GLU 263 Result Comment: Glucose result greater than or equal to 200 mg/dL suggests DIABETES MELLITUS per A.D.A. criteria. Please note revised GLUCOSE reference range effective 2017. LAB L501.1000 7-18 mg/dL High BUN 63 LAB L501.1100 0.70-1.30 mg/dL High CREAT,SERUM 1.94 Result Comment: The validity of the calculated GFR AND GFRAA in patients over 70 years has not been determined. Clinical correlation is essential. LAB L501.1110 >60 mL/min Low EST GFR 38 Result Comment: Non- GFR Calc LAB L501.1115 >60 mL/min Low EST GFR - AA 46 Result Comment: GFR Calc LAB L501.1255 ml/min Normal Estimated CRCL 38.33 LAB L501.1300 10-20 RATIO High BUN/CRE 32.5 LAB L501.2200 8.5-10 mg/dL Normal .1 CA 8.5 LAB L501.5300 136-14 mmol/L Normal 5 NA 138 LAB L501.5600 3.5-5. mmol/L Normal 1 K 4.7 LAB L501.5900 98-107 mmol/L Normal CL 105 LAB L501.6100 21.0-3 mmol/L Normal 2.0 CO2 25.0 LAB L501.6200 5-15 Normal GAP 8 Performed By: #### L500.2500 #### [facility] [address] [place], [address] C-PEPTIDE Collected: 09/24/2017 Status: F Source: ELSINORE 5:40 AM [facility] REPOSITORY TYPE CODE TESTS RESULT OUT OF RANGE REFERENCE UNITS LAB L3100.7750 1.1-4.4 ng/mL Normal C PEPTIDE 3.1 62552 Result Comment: C-Peptide reference interval is for fasting patients. Performed at: [facility], [place], [place] [id number] Form Setter Supervisor: Matthias Reeder PhD, Phone: [phone] Performed By: #### L3100.7750 #### [facility] (refer to report for specific site) refer to report for address and phone number BEDSIDE GLUCOSE Collected: 09/23/2017 Status: F Source: RUDY 8:40 PM [facility] REPOSITORY TYPE CODE TESTS RESULT OUT OF REFERENCE UNITS RANGE LAB L501.080 70-110 mg/dL High BEDSIDE GLU 290 Result Comment: MANAGEMENT OF PATIENT CARE PER NURSING PROTOCOL Performed By: #### L501.080 #### [facility] Point of Care [address] [place] [address] BEDSIDE GLUCOSE Collected: 09/23/2017 Status: F Source: RUDY 5:02 PM [facility] REPOSITORY TYPE CODE TESTS RESULT OUT OF REFERENCE UNITS RANGE LAB L501.080 70-110 mg/dL High BEDSIDE GLU 279 Result Comment: MANAGEMENT OF PATIENT CARE PER NURSING PROTOCOL Performed By: #### L501.080 #### [facility] Point of Care [address] [place] [address] BEDSIDE GLUCOSE Collected: 09/23/2017 Status: F Source: RUDY 10:53 AM [facility] REPOSITORY TYPE CODE TESTS RESULT OUT OF REFERENCE UNITS RANGE LAB L501.080 70-110 mg/dL High BEDSIDE GLU 207 Result Comment: MANAGEMENT OF PATIENT CARE PER NURSING PROTOCOL Performed By: #### L501.080 #### [facility] Point of Care [address] [place] [address] BEDSIDE GLUCOSE Collected: 09/23/2017 Status: F Source: RUDY 6:19 AM [facility] REPOSITORY TYPE CODE TESTS RESULT OUT OF RANGE REFERENCE UNITS LAB L501.080 70-110 mg/dL Normal BEDSIDE GLU 105 Result Comment: MANAGEMENT OF PATIENT CARE PER NURSING PROTOCOL Performed By: #### L501.080 #### [facility] Point of Care [address] [place] [address] BEDSIDE GLUCOSE Collected: 09/22/2017 Status: F Source: RUDY 8:42 PM [facility] REPOSITORY TYPE CODE TESTS RESULT OUT OF REFERENCE UNITS RANGE LAB L501.080 70-110 mg/dL High BEDSIDE GLU 251 Result Comment: MANAGEMENT OF PATIENT CARE PER NURSING PROTOCOL Performed By: #### L501.080 #### [facility] Point of Care [address] [place] [address] DISCHARGE SUMMARY Observed: 09/22/2017 Status: F Source: RUDY 7:26 PM [facility] REPOSITORY [facility] Medical Records Department [address] [place] [address] Discharge Summary 09/21/17 2140 MR#: [id number] Acct: [id number] Name: DEL BARRIOS Rep #: [id number] : 1960 57 From: Arnie Reese MD PCP: OUT OF TOWN DOCTOR Status: ADM IN Y Location: [place] [id number] ADDENDUM by Arnie Reese MD on 09/22/17 at 1925 Code Visit Follow up with Dr. Reese for New Patient Appointment in less than 1 week. 09/22/171925 <Electronically signed by Arnie Reese MD> Date Arnie Reese MD cc: OUT OF TOWN DOCTOR; Arnie Reese MD * Signed Discharge Date and Diagnosis - Problem List Patient Problems: Active and Suspected Problems Right foot infection (Acute) Date of Admission: 09/07/17 Date of Discharge: 09/27/17 - Primary Discharge Diagnosis Active and Suspected Problems Right foot infection (Acute) - Secondary Discharge Diagnosis Chronic Problems Ulcer of right foot with necrosis of muscle (Chronic) Ulcer of right foot with fat layer exposed (Chronic) Ulcer of right foot with necrosis of bone (Chronic) Diabetes mellitus (Chronic) Morbid obesity (Chronic) Venous stasis dermatitis (Chronic) PAOD (peripheral arterial occlusive disease) (Chronic) Neuropathic pain (Chronic) DVT (deep venous thrombosis) (Chronic) Ulcer of left lower extremity with fat layer exposed (Chronic) Chronic kidney disease (CKD) (Chronic) Anemia (Chronic) BKA stump complication (Chronic) Hx of osteomyelitis (Chronic) Left lower leg amputation. 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) Delayed wound healing (Chronic) Malnutrition (Chronic) Venous insufficiency (Chronic) Lymphedema (Chronic) Edema of both legs (Chronic) GERD (gastroesophageal reflux disease) (Chronic) Hypertension (Chronic) Hyperlipemia (Chronic) Morbid obesity with BMI of 45.0-49.9, adult (Chronic) Hyperlipidemia associated with type 2 diabetes mellitus (Chronic) 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 Lux, admitted to TCU for rehabilitation, strengthening, wound care, intravenous antibiotics, prior to discharge home alone. [] Discharge home alone, with Home Health Services. Discharge Diet: No Restrictions Discharge Activity: - - Non ambulatory. Weight Bearing Status: No weight bearing Call your doctor if you observe: Fever of 101 or Higher, Inability to urinate, Inability to have a bowel movement, Shortness of breath, Chest pain, Uncontrolled pain Home Medications: Medications to take at Discharge Atorvastatin Calcium [Lipitor] 10 mg PO QHS 01/08/17 Brimonidine Tartrate 0.2% [Brimonidine 0.2% 5Ml Bottle] 1 drop EACH EYE BID 01/08/17 Ergocalciferol [Vitamin D] 50,000 unit PO FR 01/08/17 Gabapentin [Neurontin] 1,600 mg PO QHS 01/08/17 Gabapentin [Neurontin] 600 mg PO DAILY 01/08/17 Insulin U-500 [Humulin R U-500 (BKC)] 105 units SC DINNER 01/08/17 Insulin U-500 [Humulin R U-500 (BKC)] 105 units SC LUNCH 01/08/17 Insulin U-500 [Humulin R U-500 (BKC)] 160 units SC BREAKFAST 01/08/17 Latanoprost 0.005% [Xalatan Opthalmic] 1 drop EACH EYE QHS 01/08/17 Losartan Potassium [Cozaar] 50 mg PO DAILY 01/08/17 Nebivolol HCl [Bystolic (Beta Jeet)] 10 mg PO DAILY 01/08/17 Omeprazole [Prilosec] 40 mg PO DAILY 01/08/17 Acetaminophen [Tylenol Tablet] 650 mg PO Q6H PRN PRN tablet 09/07/17 Clopidogrel Bisulfate [Plavix] 75 mg PO DAILY 09/07/17 Menthol/Lanolin/Calamine/Znox [Calmoseptine Ointment] 1 applic TOPICAL 0600,2200 tube 09/21/17 Nutritional Supplement [Madhu - ORANGE FLAVOR] 1 packet PO BIDCM #60 packet 09/21/17 Nystatin Powder [Mycostatin Powder] 1 applic TOPICAL 0600,2200 bottle 09/21/17 Following Prescrptions Were Given to Patient: Nutritional Supplement [Madhu - ORANGE FLAVOR] 1 packet PO BIDCM #60 packet Primary Care Physician: [facility] Doctor,Out of [Primary Care Provider] - Please follow up with your Primary Care Physician in: 1 week. Disposition: Home with Home Health Minutes spent on discharge:: 35 Patient Condition:: Stable Medical Necessity - Tobacco Use Smoking Status: Former smoker Tobacco Use: Non-smoker Meaningful Use Info Meaningful Use Diagnoses (Choose all that apply): None applicable 09/21/172141 <Electronically signed by Arnie Reese MD> Date Arnie Reese MD Cosigner Signature (if applicable): Date CC: OUT OF [facility] DOCTOR; Arnie Reese MD Signed DISCHARGE INSTRUCTION Observed: 09/22/2017 Status: F Source: RUDY 7:25 PM [facility] REPOSITORY [facility] Medical Records Department [facility] [place] [address] Instructions for Home/Discharge Instructions 09/21/172136 MR#: [id number] Acct: [id number] Name: DEL BARRIOS Rep #: [id number] : 1960 57 From: Arnie Reese MD PCP: OUT OF [facility] DOCTOR Status: ADM IN ADDENDUM by Arnie Reese MD on 09/22/17 at [address] Reese for New Patient Appointment in less than 1 week. Date Arnie Reese MD cc: Rachele Lux DPM; OUT OF TOWN DOCTOR; Dale Daigle MD * Signed - Discharge Diagnoses Current Active Problems: Current Active and Chronic Problems Right foot infection (Acute) Diabetes mellitus (Chronic) Morbid obesity (Chronic) Venous stasis dermatitis (Chronic) PAOD (peripheral arterial occlusive disease) (Chronic) Neuropathic pain (Chronic) DVT (deep venous thrombosis) (Chronic) You will use the following diet at home:: No restrictions, Regular Your food should be the consistency of: Regular Your liquids should be the consistency of: Regular/Thin Discharge Activity: - - Non ambulatory. Weight Bearing Status: No weight bearing Call your doctor if you observe: Fever of 101 or Higher, Inability to urinate, Inability to have a bowel movement, Shortness of breath, Chest pain, Uncontrolled pain Allergies/Adverse Reactions: Allergies bee venom protein (honey bee) Allergy (Verified 09/09/17 08:38) Swelling metronidazole [From Flagyl] Allergy (Verified 09/09/17 08:38) Itching Medications to take at Discharge Atorvastatin Calcium [Lipitor] 10 mg PO QHS 01/08/17 Brimonidine Tartrate 0.2% [Brimonidine 0.2% 5Ml Bottle] 1 drop EACH EYE BID 01/08/17 Ergocalciferol [Vitamin D] 50,000 unit PO FR 01/08/17 Gabapentin [Neurontin] 1,600 mg PO QHS 01/08/17 Gabapentin [Neurontin] 600 mg PO DAILY 01/08/17 Insulin U-500 [Humulin R U-500 (BKC)] 105 units SC DINNER 01/08/17 Insulin U-500 [Humulin R U-500 (BKC)] 105 units SC LUNCH 01/08/17 Insulin U-500 [Humulin R U-500 (BKC)] 160 units SC BREAKFAST 01/08/17 Latanoprost 0.005% [Xalatan Opthalmic] 1 drop EACH EYE QHS 01/08/17 Losartan Potassium [Cozaar] 50 mg PO DAILY 01/08/17 Nebivolol HCl [Bystolic (Beta Jeet)] 10 mg PO DAILY 01/08/17 Omeprazole [Prilosec] 40 mg PO DAILY 01/08/17 Acetaminophen [Tylenol Tablet] 650 mg PO Q6H PRN PRN tablet 09/07/17 Clopidogrel Bisulfate [Plavix] 75 mg PO DAILY 09/07/17 Menthol/Lanolin/Calamine/Znox [Calmoseptine Ointment] 1 applic TOPICAL 0600,2200 tube 09/21/17 Nutritional Supplement [Madhu - ORANGE FLAVOR] 1 packet PO BIDCM #60 packet 09/21/17 Nystatin Powder [Mycostatin Powder] 1 applic TOPICAL 0600,2200 bottle 09/21/17 The following prescriptions were given: Nutritional Supplement [Madhu - ORANGE FLAVOR] 1 packet PO BIDCM #60 packet Primary Care Physician: [facility] Doctor,Out of [Primary Care Provider] - Please follow up with your Primary Care Physician in: 1 week. Proposed Discharge Date: 09/27/17 09/21/172139 <Electronically signed by Arnie Reese MD> Date Arnie Reese MD CC: Rachele Lux DPM; OUT OF [facility] DOCTOR; Dale Daigle MD BEDSIDE GLUCOSE Collected: 09/22/2017 Status: F Source: RUDY 4:46 PM [facility] REPOSITORY TYPE CODE TESTS RESULT OUT OF REFERENCE UNITS RANGE LAB L501.080 70-110 mg/dL High BEDSIDE GLU 207 Result Comment: MANAGEMENT OF PATIENT CARE PER NURSING PROTOCOL Performed By: #### L501.080 #### [facility] Point of Care [address] [place], [place] [address] BEDSIDE GLUCOSE Collected: 09/22/2017 Status: F Source: RUDY 11:11 AM [facility] REPOSITORY TYPE CODE TESTS RESULT OUT OF REFERENCE UNITS RANGE LAB L501.080 70-110 mg/dL High BEDSIDE GLU 241 Result Comment: Dr Sawant Followed MANAGEMENT OF PATIENT CARE PER NURSING PROTOCOL Performed By: #### L501.080 #### [facility] Point of Care [address] [place], [place] [id number] BEDSIDE GLUCOSE Collected: 09/22/2017 Status: F Source: RUDY 6:36 AM [facility] REPOSITORY TYPE CODE TESTS RESULT OUT OF REFERENCE UNITS RANGE LAB L501.080 70-110 mg/dL High BEDSIDE GLU 141 Result Comment: MANAGEMENT OF PATIENT CARE PER NURSING PROTOCOL Performed By: #### L501.080 #### [facility] Point of Care [address] [facility] [address] [place], [place] [address] HOME HEALTH PROGRESS Observed: 09/21/2017 Status: F Source: RUDY NOTE 9:42 PM [facility] Medical Records Department [address] [place] [address] Home Health Progress Note [id number] Encounter Encounter Date: 09/21/172141 MR#: [id number] Acct: [id number] Name: DEL BARRIOS Rep #: [id number] : 1960 57 From: Arnie Reese MD PCP: OUT OF TOWN DOCTOR Status: ADM IN Location: [place] [address] Home Health Note - Plan Overview of reason of hospitalization: The patient is a 57 year old Male with below past medical history hospitalized for right heel infected ulcer, underwent debridement 09/03/[address] Lux, admitted to TCU for rehabilitation, strengthening, wound care, intravenous antibiotics, prior to discharge home alone. [] Discharge home alone, with Home Health Services. 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) Diabetes mellitus (Chronic) Morbid obesity (Chronic) Venous stasis dermatitis (Chronic) PAOD (peripheral arterial occlusive disease) (Chronic) Neuropathic pain (Chronic) DVT (deep venous thrombosis) (Chronic) Ulcer of right foot with necrosis of muscle (Acute) Ulcer of left lower extremity with fat layer exposed (Chronic) Chronic kidney disease (CKD) (Chronic) Anemia (Chronic) BKA stump complication (Chronic) Hx of osteomyelitis (Chronic) Diabetes mellitus type 2, uncontrolled, with complications (Chronic) Skin tear of right lower leg without complication (Acute) Blister (Acute) Type 2 diabetes mellitus with diabetic polyneuropathy (Chronic) Ulcer of right lower extremity with fat layer exposed (Chronic) Type 2 diabetes mellitus with diabetic polyneuropathy (Chronic) Chronic ulcer of right foot with fat layer exposed (Chronic) Chronic ulcer of left leg with fat layer exposed (Acute) Delayed wound healing (Chronic) Malnutrition (Chronic) Nonhealing skin ulcer (Acute) Venous insufficiency (Chronic) Lymphedema (Chronic) Edema of both legs (Chronic) Infected wound (Acute) Open wound of right foot (Acute) GERD (gastroesophageal reflux disease) (Chronic) Hypertension (Chronic) Hyperlipemia (Chronic) Morbid obesity with BMI of 45.0-49.9, adult (Chronic) Hyperlipidemia associated with type 2 diabetes mellitus (Chronic) 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 - Requirements and Reasons Disciplines Needed/Ordered: Fpc, Physical Therapy Reason for Disciplines: Disease Specific Monitoring/education, Medication Management/Knowledge Deficit, Wound Care, Gait Training, Stair Training, Fall Prevention, Home Safety/Equipment Instruction, Balance and/or Posture Training, Transfer Training Related To: Limited/Poor Endurance, Shortness of Breath with Activity, Physical Impairments, Unsteady Gait/Balance, Fall Risk Patient is unable to leave the home: Without Aid of Supportive Devices (crutches, cane, wheelchair, walker), Without the assistance of another person, Because it is medically contraindicated Medically Contraindicated related to: Weight Bearing Status - Additional Disciplines Additional Disciplines Needed/Ordered: Occupational Therapy, Home Health Aide 09/21/17 7208 <Electronically signed by Arnie Reese MD> Date Arnie Muñoz Signature (if indicated): Date CC: Signed BEDSIDE GLUCOSE Collected: 09/21/2017 Status: F Source: RUDY 9:02 PM [facility] REPOSITORY TYPE CODE TESTS RESULT OUT OF REFERENCE UNITS RANGE LAB L501.080 70-110 mg/dL High BEDSIDE GLU 258 Result Comment: MANAGEMENT OF PATIENT CARE PER NURSING PROTOCOL Performed By: #### L501.080 #### [facility] Point of Care [address] [place] [address] BEDSIDE GLUCOSE Collected: 09/21/2017 Status: F Source: RUDY 4:58 PM [facility] REPOSITORY TYPE CODE TESTS RESULT OUT OF REFERENCE UNITS RANGE LAB L501.080 70-110 mg/dL High BEDSIDE GLU 224 Result Comment: MANAGEMENT OF PATIENT CARE PER NURSING PROTOCOL Performed By: #### L501.080 #### [facility] Point of Care [address] [place] [address] BEDSIDE GLUCOSE Collected: 09/21/2017 Status: F Source: RUDY 11:30 AM [facility] REPOSITORY TYPE CODE TESTS RESULT OUT OF REFERENCE UNITS RANGE LAB L501.080 70-110 mg/dL High BEDSIDE GLU 214 Result Comment: Dr Orders Followed MANAGEMENT OF PATIENT CARE PER NURSING PROTOCOL Performed By: #### L501.080 #### [facility] Point of Care [address] [place] [address] BEDSIDE GLUCOSE Collected: 09/21/2017 Status: F Source: RUDY 6:39 AM [facility] REPOSITORY TYPE CODE TESTS RESULT OUT OF REFERENCE UNITS RANGE LAB L501.080 70-110 mg/dL High BEDSIDE GLU 159 Result Comment: MANAGEMENT OF PATIENT CARE PER NURSING PROTOCOL Performed By: #### L501.080 #### [facility] Point of Care [address] [place], [place] [address] BEDSIDE GLUCOSE Collected: 09/20/2017 Status: F Source: RUDY 9:09 PM [facility] REPOSITORY TYPE CODE TESTS RESULT OUT OF REFERENCE UNITS RANGE LAB L501.080 70-110 mg/dL High BEDSIDE GLU 240 Result Comment: MANAGEMENT OF PATIENT CARE PER NURSING PROTOCOL Performed By: #### L501.080 #### [facility] Point of Care [address] [place] [address] BEDSIDE GLUCOSE Collected: 09/20/2017 Status: F Source: RUDY 5:00 PM [facility] REPOSITORY TYPE CODE TESTS RESULT OUT OF REFERENCE UNITS RANGE LAB L501.080 70-110 mg/dL High BEDSIDE GLU 157 Result Comment: MANAGEMENT OF PATIENT CARE PER NURSING PROTOCOL Performed By: #### L501.080 #### [facility] Point of Care [address] [place] [address] BEDSIDE GLUCOSE Collected: 09/20/2017 Status: F Source: RUDY 11:19 AM [facility] REPOSITORY TYPE CODE TESTS RESULT OUT OF REFERENCE UNITS RANGE LAB L501.080 70-110 mg/dL High BEDSIDE GLU 154 Result Comment: MANAGEMENT OF PATIENT CARE PER NURSING PROTOCOL Performed By: #### L501.080 #### [facility] Point of Care [address] [place] [address] BEDSIDE GLUCOSE Collected: 09/20/2017 Status: F Source: RUDY 6:26 AM [facility] REPOSITORY TYPE CODE TESTS RESULT OUT OF REFERENCE UNITS RANGE LAB L501.080 70-110 mg/dL High BEDSIDE GLU 209 Result Comment: MANAGEMENT OF PATIENT CARE PER NURSING PROTOCOL Performed By: #### L501.080 #### [facility] Point of Care [address] [place] [address] BEDSIDE GLUCOSE Collected: 09/19/2017 Status: F Source: RUDY 8:51 PM [facility] REPOSITORY TYPE CODE TESTS RESULT OUT OF REFERENCE UNITS RANGE LAB L501.080 70-110 mg/dL High BEDSIDE GLU 289 Result Comment: MANAGEMENT OF PATIENT CARE PER NURSING PROTOCOL Performed By: #### L501.080 #### [facility] Point of Care [address] [place] [address] OPERATIVE REPORT Observed: 09/19/2017 Status: F Source: RUDY 6:08 PM [facility] REPOSITORY [facility] Medical Records Department [address] [place] [address] Operative Report 09/14/17 1614 MR#: [id number] Acct: [id number] Name: DEL BARRIOS Rep #: [id number] : 1960 57 From: Rachele Lux DPM PCP: Status: DEP [facility] [place] Location: [facility] Problem List (1) Ulcer of right foot with necrosis of muscle Status: Chronic (2) Ulcer of right foot with fat layer exposed Status: Chronic (3) Type 2 diabetes mellitus with diabetic polyneuropathy Status: Chronic Report of Operation Date of Procedure: 09/14/17 Pre-Operative Diagnosis: ulcer right foot with fat layer exposed,digits 1 and 2. ulcer right heel muscle layer and fascia exposed. ulcer right leg fat layer exposed Post-Operative Diagnosis: ulcer right foot with fat layer exposed,digits 1 and 2. ulcer right heel muscle layer and fascia exposed. ulcer right leg fat layer exposed Surgery/Procedure Performed:: excisional subcutaneous and muscle debridement right foot. excisional subcutaneous debridement right leg. application of advanced wound care product; amniofill and epicord right foot. application of wound vac, right foot Description of Surgical Findings:: hemostasis: no tourniquet utilized. hemostasis controlled with anatomic dissection. 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: none Type of Anesthesia:: Local - versed use only and preoperative: 1:1 mixture of 1% lidocaine plain and 0.5% marcaine plain administered in heel local infiltrative manner (10 cc) Specimen's removed: none Estimated Blood Loss (mL): 50 mL Description of Procedure: Indications: This 57-year-old male with multiple comorbidities including diabetes with neuropathy, chronic kidney disease on hemodialysis, morbid obesity, lymphedema, hypertension, hyperlipidemia, anemia, peripheral arterial disease, venous insufficiency, GERD, and significant delayed healing of wounds who was previously debrided with versajet for infected right heel ulcer and a bone biopsy which was negative for osteomyelitis was taken back to the operating room today. This is a staged procedure for debridement, application of advanced wound care products, and application of wound vac. Preoperative, there is a 4.8 cm x 5.9 cm x 1.8 cm to the plantar medial aspect of the right heel with exposed muscle fascia. There is no odor, necrosis, or anna purulence. The hallux ulcer measuers 7x7x2 mm and the 2nd toe ulcer measures 6x 10x1 mm. The posterior right leg ulcer measures 0.6 x 1.8 x 0.1 cm. The preoperative indications, planned procedure, possible benefits, risks, complications, and anticipated healing time management were discussed in detail the patient. He understands and elects to proceed with surgery at this time. No guarantees are made. Surgical limb and surgical consent were signed. I answered all his questions. He was medically optimized by the transitional care unit physician, and his preoperative diagnostic data was reviewed in full. Procedure in detail: The patient to the operating room via cart and placed on the operating table in supine position. The leg was bumped with blankets to allow good exposure of the medial heel. A tourniquet was not utilized. He is already on IV antibiotics that were initiated on the medicine floor. The anesthesia team initiated sedation with versed only; this was mainly a local anesthesia procedure. I administered the local anesthetic as described above. The right lower extremity was prepped and draped in the usual aseptic manner. Surgery began as a following: Attention was first directed to the right heel in which devitalized tissue was noted. A fifteen blade was used to debride this tissue in an excisional subcutaneous manner to remove fibrous tissue, devitalized tissue, biofilm, and slough. Pressure was applied to maintain hemostasis. The postoperative debridement measurements were as follows: 4.9cm x 6.0 cm x 1.9 cm to the right heel, 8x8x2 mm to the right hallux, 7x10x1 mm to the right second toe, and 0.7 x 1.9 x 0.1 cm to the posterior right leg. He tolerated this well. This was copiously irrigated with normal saline. Next, 500 cc of amniofill was applied to the toe and heel ulcer sites. This was secured in place with a 2x3 cm and 3x5 cm epicord, and this was additionally secured with 3-0 prolene sutures. Adaptic was also applied. Next, a THEO wound vac was secured and applied to the heel and this was set on continuous. Additional adaptic and gauze were applied to all the sites and was further dressed with abdominal pads, Kerlix, and Claude wraps. Brisk capillary refill time is noted to all digits of the right lower extremity and periwound prior to applying the dressings. After procedure: The patient tolerated the procedure well and transported to the PACU vital signs stable and vascular status intact to the right lower extremity. He will be transferred back to the transitional care unit upon continued stability. He was advised to elevate for pain and inflammation management. Strict nonweightbearing is recommended and orders were placed. To continue with proper glycemic control and nutritional supplementation to optimize healing. He understands he is at high risk for limb loss and due to this condition. Significant reduction in edema and decreased wound inflammation and size are noted since he has been in the hospital receiving care as compared to his most recent wound care center visit. To continue on IV antibiotics per infectious disease team in which input is greatly appreciated. PICC line placement remains intact. It is noted his recent calcaneus bone biopsies have been negative for osteomyelitis and infectious disease is on consultation. To I will continue to follow his case close while in house. Medical management and DVT prophylaxis per primary team are appreciated. Rachele Lux DPM [facility] - Complications none 09/19/171807 <Electronically signed by Rachele Lux DPM> Date Rachele Lux DPM CC: Rachele Lux DPM Signed BEDSIDE GLUCOSE Collected: 09/19/2017 Status: F Source: RUDY 5:02 PM [facility] REPOSITORY TYPE CODE TESTS RESULT OUT OF REFERENCE UNITS RANGE LAB L501.080 70-110 mg/dL High BEDSIDE GLU 248 Result Comment: Dr Sawant Followed MANAGEMENT OF PATIENT CARE PER NURSING PROTOCOL Performed By: #### L501.080 #### [facility] [place] [place] [address] BEDSIDE GLUCOSE Collected: 09/19/2017 Status: F Source: RUDY 11:05 AM [facility] REPOSITORY TYPE CODE TESTS RESULT OUT OF REFERENCE UNITS RANGE LAB L501.080 70-110 mg/dL High BEDSIDE GLU 254 Result Comment: MANAGEMENT OF PATIENT CARE PER NURSING PROTOCOL Performed By: #### L501.080 #### [facility] Point of Care [address] [place] [address] BEDSIDE GLUCOSE Collected: 09/19/2017 Status: F Source: RUDY 6:40 AM [facility] REPOSITORY TYPE CODE TESTS RESULT OUT OF REFERENCE UNITS RANGE LAB L501.080 70-110 mg/dL High BEDSIDE GLU 178 Result Comment: MANAGEMENT OF PATIENT CARE PER NURSING PROTOCOL Performed By: #### L501.080 #### [facility] Point of Care [address] [place] [address] BEDSIDE GLUCOSE Collected: 09/18/2017 Status: F Source: RUDY 8:49 PM [facility] REPOSITORY TYPE CODE TESTS RESULT OUT OF REFERENCE UNITS RANGE LAB L501.080 70-110 mg/dL High BEDSIDE GLU 364 Result Comment: MANAGEMENT OF PATIENT CARE PER NURSING PROTOCOL Performed By: #### L501.080 #### [facility] Point of Care [address] [place] [address] BEDSIDE GLUCOSE Collected: 09/18/2017 Status: F Source: RUDY 4:35 PM [facility] REPOSITORY TYPE CODE TESTS RESULT OUT OF REFERENCE UNITS RANGE LAB L501.080 70-110 mg/dL High BEDSIDE GLU 283 Result Comment: MANAGEMENT OF PATIENT CARE PER NURSING PROTOCOL Performed By: #### L501.080 #### [facility] Point of Care [address] [place] [address] BEDSIDE GLUCOSE Collected: 09/18/2017 Status: F Source: RUDY 11:26 AM [facility] REPOSITORY TYPE CODE TESTS RESULT OUT OF REFERENCE UNITS RANGE LAB L501.080 70-110 mg/dL High BEDSIDE GLU 247 Result Comment: MANAGEMENT OF PATIENT CARE PER NURSING PROTOCOL Performed By: #### L501.080 #### [facility] Point of Care [address] [place] [address] BEDSIDE GLUCOSE Collected: 09/18/2017 Status: F Source: RUDY 7:00 AM [facility] REPOSITORY TYPE CODE TESTS RESULT OUT OF REFERENCE UNITS RANGE LAB L501.080 70-110 mg/dL High BEDSIDE GLU 181 Result Comment: MANAGEMENT OF PATIENT CARE PER NURSING PROTOCOL Performed By: #### L501.080 #### [facility] Point of Care [address] [place] [address] BEDSIDE GLUCOSE Collected: 09/17/2017 Status: F Source: RUDY 9:25 PM [facility] REPOSITORY TYPE CODE TESTS RESULT OUT OF REFERENCE UNITS RANGE LAB L501.080 70-110 mg/dL High BEDSIDE GLU 268 Result Comment: MANAGEMENT OF PATIENT CARE PER NURSING PROTOCOL Performed By: #### L501.080 #### [facility] Point of Care [address] [place] [address] BEDSIDE GLUCOSE Collected: 09/17/2017 Status: F Source: RUDY 4:59 PM [facility] REPOSITORY TYPE CODE TESTS RESULT OUT OF REFERENCE UNITS RANGE LAB L501.080 70-110 mg/dL High BEDSIDE GLU 280 Result Comment: MANAGEMENT OF PATIENT CARE PER NURSING PROTOCOL Performed By: #### L501.080 #### [facility] Point of Care [address] [place] [address] BEDSIDE GLUCOSE Collected: 09/17/2017 Status: F Source: RUDY 11:23 AM [facility] REPOSITORY TYPE CODE TESTS RESULT OUT OF REFERENCE UNITS RANGE LAB L501.080 70-110 mg/dL High BEDSIDE GLU 247 Result Comment: MANAGEMENT OF PATIENT CARE PER NURSING PROTOCOL Performed By: #### L501.080 #### [facility] Point of Care [address] [place] [address] BEDSIDE GLUCOSE Collected: 09/17/2017 Status: F Source: RUDY 6:42 AM [facility] REPOSITORY TYPE CODE TESTS RESULT OUT OF REFERENCE UNITS RANGE LAB L501.080 70-110 mg/dL High BEDSIDE GLU 141 Result Comment: MANAGEMENT OF PATIENT CARE PER NURSING PROTOCOL Performed By: #### L501.080 #### [facility] Point of Care [address] [place] [address] BEDSIDE GLUCOSE Collected: 09/16/2017 Status: F Source: RUDY 9:07 PM [facility] REPOSITORY TYPE CODE TESTS RESULT OUT OF REFERENCE UNITS RANGE LAB L501.080 70-110 mg/dL High BEDSIDE GLU 237 Result Comment: MANAGEMENT OF PATIENT CARE PER NURSING PROTOCOL Performed By: #### L501.080 #### [facility] Point of Care [address] [place] [address] BEDSIDE GLUCOSE Collected: 09/16/2017 Status: F Source: RUDY 4:39 PM [facility] REPOSITORY TYPE CODE TESTS RESULT OUT OF REFERENCE UNITS RANGE LAB L501.080 70-110 mg/dL High BEDSIDE GLU 211 Result Comment: MANAGEMENT OF PATIENT CARE PER NURSING PROTOCOL Performed By: #### L501.080 #### [facility] Point of Care [address] [place] [address] BEDSIDE GLUCOSE Collected: 09/16/2017 Status: F Source: RUDY 10:47 AM [facility] REPOSITORY TYPE CODE TESTS RESULT OUT OF REFERENCE UNITS RANGE LAB L501.080 70-110 mg/dL High BEDSIDE GLU 241 Result Comment: MANAGEMENT OF PATIENT CARE PER NURSING PROTOCOL Performed By: #### L501.080 #### [facility] Point of Care [address] [place] [address] BEDSIDE GLUCOSE Collected: 09/16/2017 Status: F Source: RUDY 6:38 AM [facility] REPOSITORY TYPE CODE TESTS RESULT OUT OF REFERENCE UNITS RANGE LAB L501.080 70-110 mg/dL High BEDSIDE GLU 137 Result Comment: MANAGEMENT OF PATIENT CARE PER NURSING PROTOCOL Performed By: #### L501.080 #### [facility] Point of Care [address] [place] [address] BEDSIDE GLUCOSE Collected: 09/15/2017 Status: F Source: RUDY 9:00 PM [facility] REPOSITORY TYPE CODE TESTS RESULT OUT OF REFERENCE UNITS RANGE LAB L501.080 70-110 mg/dL High BEDSIDE GLU 319 Result Comment: MANAGEMENT OF PATIENT CARE PER NURSING PROTOCOL Performed By: #### L501.080 #### [facility] Point of Care [address] [place] [address] BEDSIDE GLUCOSE Collected: 09/15/2017 Status: F Source: RUDY 5:00 PM [facility] REPOSITORY TYPE CODE TESTS RESULT OUT OF REFERENCE UNITS RANGE LAB L501.080 70-110 mg/dL High BEDSIDE GLU 337 Result Comment: MANAGEMENT OF PATIENT CARE PER NURSING PROTOCOL Performed By: #### L501.080 #### [facility] Point of Care [address] [place] [address] BEDSIDE GLUCOSE Collected: 09/15/2017 Status: F Source: RUDY 11:28 AM [facility] REPOSITORY TYPE CODE TESTS RESULT OUT OF REFERENCE UNITS RANGE LAB L501.080 70-110 mg/dL High BEDSIDE GLU 374 Result Comment: Dr Sawant Followed MANAGEMENT OF PATIENT CARE PER NURSING PROTOCOL Performed By: #### L501.080 #### [facility] Point of [facility] [address] [place] [address] BEDSIDE GLUCOSE Collected: 09/15/2017 Status: F Source: RUDY 6:21 AM [facility] REPOSITORY TYPE CODE TESTS RESULT OUT OF REFERENCE UNITS RANGE LAB L501.080 70-110 mg/dL High BEDSIDE GLU 381 Result Comment: MANAGEMENT OF PATIENT CARE PER NURSING PROTOCOL Performed By: #### L501.080 #### [facility] Point of Care [address] [place] [address] BASIC METABOLIC Collected: 09/15/2017 Status: F Source: RUDY PROFILE (BMP) 6:15 AM [facility] REPOSITORY TYPE CODE TESTS RESULT OUT OF RANGE REFERENCE UNITS LAB L501.0100 74-106 mg/dL High GLU 312 Result Comment: Glucose result greater than or equal to 200 mg/dL suggests DIABETES MELLITUS per A.D.A. criteria. Please note revised GLUCOSE reference range effective 2017. LAB L501.1000 7-18 mg/dL High BUN 53 LAB L501.1100 0.70-1.30 mg/dL High CREAT,SERUM 1.75 Result Comment: The validity of the calculated GFR AND GFRAA in patients over 70 years has not been determined. Clinical correlation is essential. LAB L501.1110 >60 mL/min Low EST GFR 43 Result Comment: Non- GFR Calc LAB L501.1115 >60 mL/min Low EST GFR - AA 52 Result Comment: GFR Calc LAB L501.1255 ml/min Normal Estimated CRCL 42.49 LAB L501.1300 10-20 RATIO High BUN/CRE 30.3 LAB L501.2200 8.5-10 mg/dL Normal .1 CA 8.5 LAB L501.5300 136-14 mmol/L Normal 5 NA 138 LAB L501.5600 3.5-5. mmol/L Normal 1 K 5.1 LAB L501.5900 98-107 mmol/L Normal CL 103 LAB L501.6100 21.0-3 mmol/L Normal 2.0 CO2 28.0 LAB L501.6200 5-15 Normal GAP 7 Performed By: #### L500.2500 #### [facility] [address] [place], [address] BEDSIDE GLUCOSE Collected: 09/14/2017 Status: F Source: ELSINORE 9:02 PM [facility] REPOSITORY TYPE CODE TESTS RESULT OUT OF REFERENCE UNITS RANGE LAB L501.080 70-110 mg/dL High BEDSIDE GLU 308 Result Comment: MANAGEMENT OF PATIENT CARE PER NURSING PROTOCOL Performed By: #### L501.080 #### [facility] Point of Care [address] [place] [address] BEDSIDE GLUCOSE Collected: 09/14/2017 Status: F Source: RUDY 5:09 PM [facility] REPOSITORY TYPE CODE TESTS RESULT OUT OF REFERENCE UNITS RANGE LAB L501.080 70-110 mg/dL High BEDSIDE GLU 250 Result Comment: MANAGEMENT OF PATIENT CARE PER NURSING PROTOCOL Performed By: #### L501.080 #### [facility] Point of Care [address] [place] [address] BEDSIDE GLUCOSE Collected: 09/14/2017 Status: F Source: ELSINORE 2:19 PM [facility] REPOSITORY TYPE CODE TESTS RESULT OUT OF REFERENCE UNITS RANGE LAB L501.080 70-110 mg/dL High BEDSIDE GLU 224 Result Comment: MANAGEMENT OF PATIENT CARE PER NURSING PROTOCOL Performed By: #### L501.080 #### [facility] Point of Care [address] [place] [address] BEDSIDE GLUCOSE Collected: 09/14/2017 Status: F Source: RUDY 11:14 AM [facility] REPOSITORY TYPE CODE TESTS RESULT OUT OF REFERENCE UNITS RANGE LAB L501.080 70-110 mg/dL High BEDSIDE GLU 260 Result Comment: MANAGEMENT OF PATIENT CARE PER NURSING PROTOCOL Performed By: #### L501.080 #### [facility] Point [facility] [address] [place] [address] 12 LEAD ELECTROCARDIOGRAM Observed: 09/14/2017 Status: F Source: RUDY 9:31 AM [facility] REPOSITORY [facility] [address] [place] [address] 12 Lead EKG 09/02/17 1342 MR#: [id number] Acct: [id number] Name: DEL BARRIOS Rep #: [id number] : 1960 57 From: Godwin Carreon MD Attending Dr: Addis Barbour MD Status: DIS IN Ordering Dr: Rachele Lux DPM Date: 09/02/17 Location: [facility] Sex: M C Admitted: 09/01/17 Test Reason : PRE-OP Blood Pressure : / mmHG Vent. Rate : 086 BPM Atrial Rate : 086 BPM P-R Int : 164 ms QRS Dur : 086 ms QT Int : 384 ms P-R-T Axes : 045 019 038 degrees QTc Int : 459 ms Normal sinus rhythm Normal ECG No previous ECGs available Confirmed by GODWIN CARREON MD ([id number]), deputy editor in chief OSCAR PARIKH ([id number]) on 09/14/2017 9:31:36 AM Referred By: Ruddy Sharma Confirmed By:GODWIN CARREON MD 09/14/17 0931 Date Godwin Carreon MD CC: Rachele Lux DPM; Addis Barbour MD; Ruddy Sharma DO; OUT OF TOWN DOCTOR Signed BEDSIDE GLUCOSE Collected: 09/14/2017 Status: F Source: RUDY 6:31 AM [facility] [facility] REPOSITORY TYPE CODE TESTS RESULT OUT OF REFERENCE UNITS RANGE LAB L501.080 70-110 mg/dL High BEDSIDE GLU 249 Result Comment: MANAGEMENT OF PATIENT CARE PER NURSING PROTOCOL Performed By: #### L501.080 #### [facility] [place] [address] CBC W/DIFF, AUTOMATED Collected: 09/14/2017 Status: F Source: RUDY 5:00 AM [facility] REPOSITORY Order Comment: SPECIMEN OBTAINED FROM LINE DRAW TYPE CODE TESTS RESULT OUT OF RANGE REFERENCE UNITS LAB L100.1000 4.4-11.0 K/mm3 Normal WBC 6.1 LAB L100.1200 4.6-6.2 M/mm3 Low RBC 3.26 LAB L100.1300 13.0-16.5 g/dl Low HGB 8.8 LAB L100.1400 40-54 % Low HCT 28.1 LAB L100.1500 80-94 fL Normal MCV 86.2 LAB L100.1600 27.0-32.0 pg Normal MCH 27.0 LAB L100.1700 32-36 g/gl Low MCHC 31.3 LAB L100.1810 11.6-14.6 % High RDW CV 15.9 LAB L100.1820 35.1-43.9 fl High RDW SD 49.9 LAB L100.1900 150-450 K/mm3 Low PLT 140 LAB L100.2000 6.2-12.0 fl Normal MPV 10.2 LAB L100.2100 47-70 % Normal NEUT% 65.6 LAB L100.2200 19-41 % Normal LY% 20.6 LAB L100.2300 0-10 % Normal MONO% 8.3 LAB L100.2400 0-5 % Normal EO% 4.9 LAB L100.2500 0-1 % Normal BASO% 0.3 LAB L100.2550 0.0-0.9 % Normal IM GRAN % 0.300 Result Comment: IG% - Immature Granulocytes (promyelocytes, myelocytes and metamyelocytes) > 1% indicates that a LEFT SHIFT is Present. LAB L100.2620 2.0-7.7 X10 3/uL Normal Absolute Neut 4.0 LAB L100.2720 0.83-4.51 X10 3/ul Normal Absolute Lymph 1.26 Performed By: #### L100.0100 #### [facility] [address] [facility] [place], [address] BASIC METABOLIC Collected: 09/14/2017 Status: F Source: RUDY PROFILE (BMP) 5:00 AM [facility] REPOSITORY TYPE CODE TESTS RESULT OUT OF RANGE REFERENCE UNITS LAB L501.0100 74-106 mg/dL High GLU 281 Result Comment: Glucose result greater than or equal to 200 mg/dL suggests DIABETES MELLITUS per A.D.A. criteria. Please note revised GLUCOSE reference range effective 2017. LAB L501.1000 7-18 mg/dL High BUN 55 LAB L501.1100 0.70-1.30 mg/dL High CREAT,SERUM 1.85 Result Comment: The validity of the calculated GFR AND GFRAA in patients over 70 years has not been determined. Clinical correlation is essential. LAB L501.1110 >60 mL/min Low EST GFR 40 Result Comment: Non- GFR Calc LAB L501.1115 >60 mL/min Low EST GFR - AA 48 Result Comment: GFR Calc LAB L501.1255 ml/min Normal Estimated CRCL 40.20 LAB L501.1300 10-20 RATIO High BUN/CRE 29.7 LAB L501.2200 8.5-10 mg/dL Normal .1 CA 8.6 LAB L501.5300 136-14 mmol/L Normal 5 NA 138 LAB L501.5600 3.5-5. mmol/L High 1 K 5.2 LAB L501.5900 98-107 mmol/L Normal CL 102 LAB L501.6100 21.0-3 mmol/L Normal 2.0 CO2 29.0 LAB L501.6200 5-15 Normal GAP 7 Performed By: #### L500.2500 #### [facility] [address] [place], [address] BEDSIDE GLUCOSE Collected: 09/13/2017 Status: F Source: RUDY 9:04 PM [facility] REPOSITORY TYPE CODE TESTS RESULT OUT OF REFERENCE UNITS RANGE LAB L501.080 70-110 mg/dL High BEDSIDE GLU 311 Result Comment: MANAGEMENT OF PATIENT CARE PER NURSING PROTOCOL Performed By: #### L501.080 #### [facility] Point of Care [address] [place] [address] BEDSIDE GLUCOSE Collected: 09/13/2017 Status: F Source: RUDY 4:49 PM [facility] REPOSITORY TYPE CODE TESTS RESULT OUT OF REFERENCE UNITS RANGE LAB L501.080 70-110 mg/dL High BEDSIDE GLU 345 Result Comment: MANAGEMENT OF PATIENT CARE PER NURSING PROTOCOL Performed By: #### L501.080 #### [facility] Point of Care [address] [place] [address] BEDSIDE GLUCOSE Collected: 09/13/2017 Status: F Source: RUDY 11:24 AM [facility] REPOSITORY TYPE CODE TESTS RESULT OUT OF REFERENCE UNITS RANGE LAB L501.080 70-110 mg/dL High BEDSIDE GLU 336 Result Comment: MANAGEMENT OF PATIENT CARE PER NURSING PROTOCOL Performed By: #### L501.080 #### [facility] Point of Care [address] [place] [address] BEDSIDE GLUCOSE Collected: 09/13/2017 Status: F Source: RUDY 6:29 AM [facility] REPOSITORY TYPE CODE TESTS RESULT OUT OF REFERENCE UNITS RANGE LAB L501.080 70-110 mg/dL High BEDSIDE GLU 258 Result Comment: MANAGEMENT OF PATIENT CARE PER NURSING PROTOCOL Performed By: #### L501.080 #### [facility] Point of Care [address] [place] [address] BEDSIDE GLUCOSE Collected: 09/12/2017 Status: F Source: RUDY 9:10 PM [facility] REPOSITORY TYPE CODE TESTS RESULT OUT OF REFERENCE UNITS RANGE LAB L501.080 70-110 mg/dL High BEDSIDE GLU 336 Result Comment: MANAGEMENT OF PATIENT CARE PER NURSING PROTOCOL Performed By: #### L501.080 #### [facility] Point of Care [address] [place] [address] BEDSIDE GLUCOSE Collected: 09/12/2017 Status: F Source: RUDY 4:39 PM [facility] REPOSITORY TYPE CODE TESTS RESULT OUT OF REFERENCE UNITS RANGE LAB L501.080 70-110 mg/dL High BEDSIDE GLU 270 Result Comment: MANAGEMENT OF PATIENT CARE PER NURSING PROTOCOL Performed By: #### L501.080 #### [facility] Point of Care [address] [place] [address] BEDSIDE GLUCOSE Collected: 09/12/2017 Status: F Source: RUDY 11:09 AM [facility] REPOSITORY TYPE CODE TESTS RESULT OUT OF REFERENCE UNITS RANGE LAB L501.080 70-110 mg/dL High BEDSIDE GLU 178 Result Comment: Dr Sawant Followed MANAGEMENT OF PATIENT CARE PER NURSING PROTOCOL Performed By: #### L501.080 #### [facility] Point of Care [address] [place] [address] BEDSIDE GLUCOSE Collected: 09/12/2017 Status: F Source: RUDY 6:41 AM [facility] REPOSITORY TYPE CODE TESTS RESULT OUT OF REFERENCE UNITS RANGE LAB L501.080 70-110 mg/dL High BEDSIDE GLU 194 Result Comment: MANAGEMENT OF PATIENT CARE PER NURSING PROTOCOL Performed By: #### L501.080 #### [facility] Point of Care [address] [place] [address] BEDSIDE GLUCOSE Collected: 09/11/2017 Status: F Source: RUDY 9:22 PM [facility] REPOSITORY TYPE CODE TESTS RESULT OUT OF REFERENCE UNITS RANGE LAB L501.080 70-110 mg/dL High BEDSIDE GLU 247 Result Comment: MANAGEMENT OF PATIENT CARE PER NURSING PROTOCOL Performed By: #### L501.080 #### [facility] Point of Care [address] [place] [address] BEDSIDE GLUCOSE Collected: 09/11/2017 Status: F Source: RUDY 4:42 PM [facility] REPOSITORY TYPE CODE TESTS RESULT OUT OF REFERENCE UNITS RANGE LAB L501.080 70-110 mg/dL High BEDSIDE GLU 272 Result Comment: MANAGEMENT OF PATIENT CARE PER NURSING PROTOCOL Performed By: #### L501.080 #### [facility] Point of Care [address] [place] [address] BEDSIDE GLUCOSE Collected: 09/11/2017 Status: F Source: RUDY 11:31 AM [facility] REPOSITORY TYPE CODE TESTS RESULT OUT OF REFERENCE UNITS RANGE LAB L501.080 70-110 mg/dL High BEDSIDE GLU 259 Result Comment: Dr Sawant Followed MANAGEMENT OF PATIENT CARE PER NURSING PROTOCOL Performed By: #### L501.080 #### [facility] Point of Care [address] [place] [address] BEDSIDE GLUCOSE Collected: 09/11/2017 Status: F Source: ELSINORE 6:51 AM [facility] REPOSITORY TYPE CODE TESTS RESULT OUT OF REFERENCE UNITS RANGE LAB L501.080 70-110 mg/dL High BEDSIDE GLU 239 Result Comment: MANAGEMENT OF PATIENT CARE PER NURSING PROTOCOL Performed By: #### L501.080 #### [facility] Point of Care [address] [place] [address] BEDSIDE GLUCOSE Collected: 09/10/2017 Status: F Source: ELSINORE 9:09 PM [facility] REPOSITORY TYPE CODE TESTS RESULT OUT OF REFERENCE UNITS RANGE LAB L501.080 70-110 mg/dL High BEDSIDE GLU 319 Result Comment: MANAGEMENT OF PATIENT CARE PER NURSING PROTOCOL Performed By: #### L501.080 #### [facility] [address] [place] [address] OPERATIVE REPORT Observed: 09/10/2017 Status: F Source: ELSINORE 5:02 PM [facility] REPOSITORY [facility] [place] [address] Operative Report 09/03/17 1050 MR#: [id number] Acct: [id number] Name: DEL BARRIOS Rep #: [id number] : [id number] From: Rachele Lux DPTrupti PCP: OUT OF TOWN DOCTOR Status: DIS IN Y Location: [facility] [id number] Problem List (1) Ulcer of right foot with necrosis of bone Status: Chronic (2) Osteomyelitis Status: Suspected (3) Type 2 diabetes mellitus with diabetic polyneuropathy Status: Chronic Report of Operation Date of Procedure: 09/03/17 - assistant professor of drama: Anselmo Mahajan PGY1 Pre-Operative Diagnosis: necrotic ulcer right heel with bone exposed (suspected osteomyelitis) Post-Operative Diagnosis: necrotic ulcer right heel with bone exposed (suspected osteomyelitis) Surgery/Procedure Performed:: debridement of right heel ulcer including bone. bone biopsy right heel Description of Surgical Findings:: Hemostasis: Midcalf tourniquet 250 mmHg Materials: 3-0 Prolene Complications: None bench machine operator: none Type of Anesthesia:: Local MAC - pReoperative injection: 1:1 mix of 1% lidocaine plain and 0.5% Marcaine plain administered in right ankle block fashion proximal to the level of infection Specimen's removed: Bone right calcaneus sent to pathology microbiology (aerobic, anaerobic, acid-fast, fungal) Estimated Blood Loss (mL): < 200 mL Description of Procedure: Indications: This 57-year-old male with multiple comorbidities including diabetes with neuropathy and kidney disease, obesity, and lymphedema who is previously well known to me for multiple lower extremity ulcers was admitted to the hospital for infected right heel ulcer. This wound has been present for nearly 2 months and has recently deteriorated with necrotic tissue, odor, and inability to heal. X-rays did not demonstrate signs of osteomyelitis and his MRI from about 1 months ago was also negative for osteomyelitis. However I am suspicious at this time due to the chronicity of the wound and the close proximity with devitalized muscle and fascial tissue. He did have elevated inflammatory infection markers such as ESR and CRP at time of admission. Clinically there is a 4 cm x 5.5 cm x 1.6 cm to the plantar medial aspect of the right heel with exposed muscle fascia and recently exposed bone is suspected. There is an odor and there is no anna purulence or undermining or tracking noted on clinical exam. The preoperative indications, planned procedure, possible benefits, risks, complications, and anticipated healing time management were discussed in detail the patient. He understands and elects to proceed with surgery at this time. No guarantees are made. Surgical limb and surgical consent were signed. I answered all his questions. He was medically optimized by the hospitalist team and his preoperative diagnostic data was reviewed. Procedure in detail: The patient to the operating room via cart and placed on the operating table in supine position. The leg was bumped with blankets to allow good exposure of the medial heel. A well-padded tourniquet was placed and preoperative injection was administered by the podiatry team. He is already on IV antibiotics that were initiated on the medicine floor. The anesthesia team initiated light MAC sedation. The right lower extremity was prepped and draped in the usual aseptic manner. Surgery began as a following: Attention was first directed to the right heel in which necrotic devitalized tissue was noted. A versa jet was used for debridement on setting 8 two remove nonviable subcutaneous and muscle tissue. Upon debridement of nonviable tissue there was some bone that was also superficially debrided this was healthy and bleeding in good clean margins were noted there was no remaining necrotic tissue or undermining odor noted. The peripheral callus and the wound was also debrided with a 15 blade. The postoperative debridements measured 5.2 cm x 6.1 cm x 1.6 cm. Pressure was applied to maintain hemostasis. An Esmarch bandage was used to exsanguinate the limb and the tourniquet was inflated. Electrocauterization was used in a sparing manner for any continued bleeders. Next attention was directed to the bone biopsy. A clean 15 blade was used to make a half a centimeter linear incision to the posterior lateral heel through the skin and blunt dissection was performed right down to the bone and a Gene needle biopsy kit trocar was placed to enter the posterior plantar heel in which a bone specimen was extracted. This was sent to pathology microbiology for further testing to see if osteomyelitis is present. This was copiously irrigated with normal saline with pulse lavage. Next the tourniquet was deflated and additional pressure and electrocauterization was performed. Gelfoam was applied and Adaptic soaked in Betadine was also applied. It is noted he did have other wounds to the right leg and forefoot clean Adaptic and gauze are applied to the sites and everything was held additionally in place with abdominal pads, Kerlix, and Claude wraps. Brisk capillary refill time is noted prior to applying the dressing to all digits of the right foot and periwound site that was aggressively debrided. The bone biopsy placement site was also confirmed with intraoperative C-arm fluoroscopy. Bone is relatively firm and no visualized discoloration or purulence was noted. After procedure: The patient tolerated the procedure well and transported to the PACU vital signs stable and vascular status intact to the right lower extremity. We transferred back to the medicine floor upon continued stability. He was advised to elevate for pain and inflammation management. Strict nonweightbearing is recommended and orders are placed. To continue with proper glycemic control and nutritional supplementation optimize healing. He understands he is at high risk for limb loss and due to this condition. There was a lengthy discussion with him prior to proceeding with this debridement in regards to having a below or above-knee amputation. He is not really a great candidate for this either due to his lymphedema and significant noncompliance. Significant reduction in edema and decreased wound inflammation and size are noted since he has been in the hospital receiving care as compared to his most recent wound care center visit. He would benefit the most from going to a prison and this is imperative for the success of saving his limb. He is also been refusing to go to prison and this contributes to poor prognosis. To continue on IV antibiotics per infectious disease team in which input is greatly appreciated. The pathology and microbiology specimen results from this surgery are pending at this time. Continue to follow his case close while in house. Management and DVT prophylaxis per primary team are appreciated. Rachele Lux DPM [facility] 09/10/17 1702 <Electronically signed by Rachele Lux DPM> Date Rachele Lux DPM CC: Rachele Lux DPM; Ruddy Sharma DO; OUT OF TOWN DOCTOR; Dale Daigle MD Signed BEDSIDE GLUCOSE Collected: 09/10/2017 Status: F Source: RUDY 4:55 PM [facility] REPOSITORY TYPE CODE TESTS RESULT OUT OF REFERENCE UNITS RANGE LAB L501.080 70-110 mg/dL High BEDSIDE GLU 260 Result Comment: MANAGEMENT OF PATIENT CARE PER NURSING PROTOCOL Performed By: #### L501.080 #### [facility] Point of Care [address] [place] [address] BEDSIDE GLUCOSE Collected: 09/10/2017 Status: F Source: RUDY 11:41 AM [facility] REPOSITORY TYPE CODE TESTS RESULT OUT OF REFERENCE UNITS RANGE LAB L501.080 70-110 mg/dL High BEDSIDE GLU 259 Result Comment: Dr Sawant Followed MANAGEMENT OF PATIENT CARE PER NURSING PROTOCOL Performed By: #### L501.080 #### [facility] Point of Care [address] [place] [address] BEDSIDE GLUCOSE Collected: 09/10/2017 Status: F Source: RUDY 6:31 AM [facility] REPOSITORY TYPE CODE TESTS RESULT OUT OF REFERENCE UNITS RANGE LAB L501.080 70-110 mg/dL High BEDSIDE GLU 238 Result Comment: MANAGEMENT OF PATIENT CARE PER NURSING PROTOCOL Performed By: #### L501.080 #### [facility] Point of Care [address] [place] [address] BEDSIDE GLUCOSE Collected: 09/09/2017 Status: F Source: RUDY 8:55 PM [facility] REPOSITORY TYPE CODE TESTS RESULT OUT OF REFERENCE UNITS RANGE LAB L501.080 70-110 mg/dL High BEDSIDE GLU 294 Result Comment: MANAGEMENT OF PATIENT CARE PER NURSING PROTOCOL Performed By: #### L501.080 #### [facility] Point of Care [address] [place] [address] BEDSIDE GLUCOSE Collected: 09/09/2017 Status: F Source: RUDY 4:55 PM [facility] REPOSITORY TYPE CODE TESTS RESULT OUT OF REFERENCE UNITS RANGE LAB L501.080 70-110 mg/dL High BEDSIDE GLU 232 Result Comment: MANAGEMENT OF PATIENT CARE PER NURSING PROTOCOL Performed By: #### L501.080 #### [facility] Point of Care [address] [place] [address] BEDSIDE GLUCOSE Collected: 09/09/2017 Status: F Source: RUDY 4:52 PM [facility] REPOSITORY TYPE CODE TESTS RESULT OUT OF REFERENCE UNITS RANGE LAB L501.080 70-110 mg/dL High BEDSIDE GLU 257 Result Comment: MANAGEMENT OF PATIENT CARE PER NURSING PROTOCOL Performed By: #### L501.080 #### [facility] Point of Care [address] [place] [address] BEDSIDE GLUCOSE Collected: 09/09/2017 Status: F Source: RUDY 11:14 AM [facility] REPOSITORY TYPE CODE TESTS RESULT OUT OF REFERENCE UNITS RANGE LAB L501.080 70-110 mg/dL High BEDSIDE GLU 216 Result Comment: MANAGEMENT OF PATIENT CARE PER NURSING PROTOCOL Performed By: #### L501.080 #### [facility] Point of Care [address] [place] [address] BEDSIDE GLUCOSE Collected: 09/09/2017 Status: F Source: RUDY 6:27 AM [facility] REPOSITORY TYPE CODE TESTS RESULT OUT OF REFERENCE UNITS RANGE LAB L501.080 70-110 mg/dL High BEDSIDE GLU 226 Result Comment: MANAGEMENT OF PATIENT CARE PER NURSING PROTOCOL Performed By: #### L501.080 #### [facility] Point of Care [address] [place] [address] BEDSIDE GLUCOSE Collected: 09/08/2017 Status: F Source: RUDY 8:56 PM [facility] REPOSITORY TYPE CODE TESTS RESULT OUT OF REFERENCE UNITS RANGE LAB L501.080 70-110 mg/dL High BEDSIDE GLU 207 Result Comment: MANAGEMENT OF PATIENT CARE PER NURSING PROTOCOL Performed By: #### L501.080 #### [facility] Point of Care [address] [place] [address] BEDSIDE GLUCOSE Collected: 09/08/2017 Status: F Source: RUDY 4:47 PM [facility] REPOSITORY TYPE CODE TESTS RESULT OUT OF REFERENCE UNITS RANGE LAB L501.080 70-110 mg/dL High BEDSIDE GLU 217 Result Comment: MANAGEMENT OF PATIENT CARE PER NURSING PROTOCOL Performed By: #### L501.080 #### [facility] Point of Care [address] [place] [address] BEDSIDE GLUCOSE Collected: 09/08/2017 Status: F Source: RUDY 12:07 PM [facility] REPOSITORY TYPE CODE TESTS RESULT OUT OF REFERENCE UNITS RANGE LAB L501.080 70-110 mg/dL High BEDSIDE GLU 256 Result Comment: Dr Orders Followed MANAGEMENT OF PATIENT CARE PER NURSING PROTOCOL Performed By: #### L501.080 #### [facility] Point of Care [address] [place] [address] BEDSIDE GLUCOSE Collected: 09/08/2017 Status: F Source: RUDY 8:00 AM [facility] REPOSITORY TYPE CODE TESTS RESULT OUT OF REFERENCE UNITS RANGE LAB L501.080 70-110 mg/dL High BEDSIDE GLU 168 Result Comment: MANAGEMENT OF PATIENT CARE PER NURSING PROTOCOL Performed By: #### L501.080 #### [facility] Point of Care [address] [place] [address] BASIC METABOLIC Collected: 09/08/2017 Status: F Source: ELSINORE PROFILE (BMP) 5:30 AM [facility] REPOSITORY TYPE CODE TESTS RESULT OUT OF RANGE REFERENCE UNITS LAB L501.0100 74-106 mg/dL High GLU 132 Result Comment: Fasting Glucose result greater than or equal to 126 mg/dL suggests DIABETES MELLITUS per A.D.A. criteria. Please note revised GLUCOSE reference range effective 2017. LAB L501.1000 7-18 mg/dL High BUN 42 LAB L501.1100 0.70-1.30 mg/dL High CREAT,SERUM 1.72 Result Comment: The validity of the calculated GFR AND GFRAA in patients over 70 years has not been determined. Clinical correlation is essential. LAB L501.1110 >60 mL/min Low EST GFR 43 Result Comment: Non- GFR Calc LAB L501.1115 >60 mL/min Low EST GFR - AA 53 Result Comment: GFR Calc LAB L501.1255 ml/min Normal Estimated CRCL 41.73 LAB L501.1300 10-20 RATIO High BUN/CRE 24.4 LAB L501.2200 8.5-10 mg/dL Low .1 CA 8.3 LAB L501.5300 136-14 mmol/L Normal 5 NA 141 LAB L501.5600 3.5-5. mmol/L Normal 1 K 4.7 LAB L501.5900 98-107 mmol/L Normal CL 105 LAB L501.6100 21.0-3 mmol/L Normal 2.0 CO2 29.0 LAB L501.6200 5-15 Normal GAP 7 Performed By: #### L500.2500 #### [facility] [address] [place], [place], [address] CBC W/DIFF, AUTOMATED Collected: 09/08/2017 Status: C Source: ELSINORE 5:30 AM [facility] REPOSITORY TYPE CODE TESTS RESULT OUT OF RANGE REFERENCE UNITS LAB L100.1000 4.4-11.0 K/mm3 Normal WBC 9.1 LAB L100.1200 4.6-6.2 M/mm3 Low RBC 3.30 LAB L100.1300 13.0-16.5 g/dl Low HGB 8.9 LAB L100.1400 40-54 % Low HCT 29.2 LAB L100.1500 80-94 fL Normal MCV 88.5 LAB L100.1600 27.0-32.0 pg Normal MCH 27.0 LAB L100.1700 32-36 g/gl Low MCHC 30.5 LAB L100.1810 11.6-14.6 % High RDW CV 15.5 LAB L100.1820 35.1-43.9 fl High RDW SD 47.8 LAB L100.1900 150-450 K/mm3 Normal PLT 186 LAB L100.2000 6.2-12.0 fl Normal MPV 9.9 LAB L100.2100 47-70 % Normal NEUT% 67.8 LAB L100.2200 19-41 % Normal LY% 19.5 LAB L100.2300 0-10 % Normal MONO% 7.0 LAB L100.2400 0-5 % Normal EO% 3.1 LAB L100.2500 0-1 % Normal BASO% 0.2 LAB L100.2550 0.0-0.9 % High IM GRAN % 2.400 Result Comment: IG% - Immature Granulocytes (promyelocytes, myelocytes and metamyelocytes) > 1% indicates that a LEFT SHIFT is Present. LAB L100.2620 2.0-7.7 X10 3/uL Normal Absolute Neut 6.2 LAB L100.2720 0.83-4.51 X10 3/ul Normal Absolute Lymph 1.78 LAB L100.9900 Normal PATH REV Reviewed Result Comment: Normocytic anemia. Clinical correlation suggested. Gerald Garcia D.O. 09/09/17 AMENDED REPORT 09/09/17 1144 PATH REV previously reported as: October Performed By: #### L100.0100 #### [facility] [address] [place], [place], [address] BEDSIDE GLUCOSE Collected: 09/07/2017 Status: F Source: ELSINORE 8:53 PM [facility] REPOSITORY TYPE CODE TESTS RESULT OUT OF REFERENCE UNITS RANGE LAB L501.080 70-110 mg/dL High BEDSIDE GLU 148 Result Comment: MANAGEMENT OF PATIENT CARE PER NURSING PROTOCOL Performed By: #### L501.080 #### [facility] Point of Care [address] [place] [address] HISTORY AND PHYSICAL Observed: 09/07/2017 Status: F Source: ELSINORE EXAM 8:24 PM [facility] REPOSITORY [facility] Medical Records Department [address] [place] [address] History and Physical 09/07/172004 MR#: [id number] Acct: [id number] Name: DEL BARRIOS Rep #: [id number] : 1960 57 From: Arnie Reese MD PCP: OUT OF TOWN DOCTOR Status: ADM IN Y Location: [place] [id number] 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 (9) Osteomyelitis Status: Suspected (10) Ulcer of right foot with necrosis of muscle Status: Acute (11) Ulcer of left lower extremity with fat layer exposed Status: Chronic (12) Chronic kidney disease (CKD) Status: Chronic Qualifiers: (13) Anemia Status: Chronic (14) Lymphedema Status: Chronic (15) GERD (gastroesophageal reflux disease) Status: Chronic (16) Hypertension Status: Chronic (17) Hyperlipemia Status: Chronic History of Present Illness Date of Admission: 09/07/17 Chief Complaint: Here for rehabilitation, strengthening, wound care, intravenous antibiotics, prior to discharge home alone. The patient is a 57 year old Male with below past medical history [facility] with right forefoot ulcer, left stump ulcer, right heel ulcer, bilateral leg ulcers. He was seen by Dr. Lux who recommended admission to hospital for intravenous antibiotics, and debridement. 09/01/2017 Admit to Hospital. Right heel ulcer needs debridement, IV antibiotics. IV Vancomycin, IV Meropenem, right heel ulcer infection. Humulin R U-500 changed to combination of Levemir, Novolog. 09/01/2017 X-ray right foot negative for osteomyelitis. 09/02/2017 Dr. Daigle MRSA negative, stop Vancomycin. Continue Meropenem awaiting culture results. IV antibiotics until debridement or amputation. 09/03/2017 Dr. Lux performed debridement of right heel including bone. Cultures growing multiple organisms. Dr. Daigle recommended 2 weeks of intravenous antibiotics. 09/07/2017 Admit to TCU for rehabilitation, strengthening, wound care, intravenous antibiotics, prior to discharge home alone. Right upper extremity PICC line placed. Past Medical History Past Medical History (Chronic Problems): Chronic Problems Ulcer of right foot with necrosis of bone (Chronic) Diabetes mellitus (Chronic) Morbid obesity (Chronic) Venous stasis dermatitis (Chronic) PAOD (peripheral arterial occlusive disease) (Chronic) Neuropathic pain (Chronic) DVT (deep venous thrombosis) (Chronic) Ulcer of left lower extremity with fat layer exposed (Chronic) Chronic kidney disease (CKD) (Chronic) Anemia (Chronic) BKA stump complication (Chronic) Hx of osteomyelitis (Chronic) Left lower leg amputation. 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) Delayed wound healing (Chronic) Malnutrition (Chronic) Venous insufficiency (Chronic) Lymphedema (Chronic) Edema of both legs (Chronic) GERD (gastroesophageal reflux disease) (Chronic) Hypertension (Chronic) Hyperlipemia (Chronic) Morbid obesity with BMI of 45.0-49.9, adult (Chronic) Hyperlipidemia associated with type 2 diabetes mellitus (Chronic) 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 Allergies bee venom protein (honey bee) Allergy (Verified 01/08/17 12:04) Swelling metronidazole [From Flagyl] Allergy (Verified 01/13/17 14:51) Itching Home Medications: Ambulatory Orders Medication Instructions Recorded Atorvastatin Calcium [Lipitor] 10 mg PO QHS 01/08/17 Surgical History: tonsillectomy, - - below the knee amputation left leg, surgery on detached retina, laser surgery on eyes secondary to diabetic retinopathy, right little toe amputation, right foot surgery Psychiatric History: No pertinent psych hx Lives: Alone Smoking Status: Former smoker Tobacco Use: Non-smoker Alcohol: None Drugs: None - *Family History Maternal History Items: Diabetes Paternal History Items: Hypertension Sibling History Items: Diabetes Review of Systems Constitutional: Denies: Chills, Fever, Weight Change HEENT: Denies: Head Aches, Sinus Congestion, Sinus Drainage Cardiovascular: Denies: Chest Pain, Palpitations Respiratory: Denies: Cough, Shortness of breath at rest, Sputum production Gastrointestinal: Denies: Abdominal Pain, Nausea, Vomiting Genitourinary: Denies: Dysuria Musculoskeletal: Denies: Joint Pain, Joint Tenderness Skin: Denies: Rash, Wounds Neurological: Denies: Numbness, Tingling, Focal weakness Psychiatric: Denies: Anxiety, Depression, Homicidal Ideations, Suicidal Ideations Hematologic/ Lymphatic: Denies: Easy Bruising, Easy Bleeding VTE Information - Inpt Only VTE Present on Admission: No VTE Mechan Device Prophylaxis: Knee High REBEKA Hose VTE Pharm Prophylaxis ordered?: Yes - Physical Exam General: Alert, Oriented x3, Cooperative HEENT: Atraumatic, PERRLA, EOMI, Normocephalic Neck: Supple, No JVD, Negative Carotid Bruits Lungs: Clear to auscultation, Normal air movement Cardiovascular: Regular rate, No murmurs Abdomen: Bowel Sounds Present, Soft, Non Tender Extremities: No edema, Capillary Refill Less than 3 Seconds, - - Left below the knee amputation. Skin: No rashes, Ulcer/ Wound - Right heel ulcer wrapped in dressing, CLAUDE wraps. Musculoskeletal: No Tenderness to Palpation of Joints or Extremities Neurological: Cranial nerves II-XII grossly intact Psych/Mental Status: Normal Affect, Appropriate Vital Signs Temp Pulse Resp BP Pulse Ox 98.2 F 86 20 H 144/57 H 96 09/07/17 18:05 09/07/17 18:05 09/07/17 18:05 09/07/17 18:05 09/07/17 18:05 Oxygen Delivery Method Room Air Finger Stick Blood Glucose 278 Intake and Output for Last 24 Hours Intake Total 0 / 0 Balance 0 / 0 Assessment/Plan 57 year old male with below past medical history hospitalized for right heel infected ulcer, underwent debridement 09/03/[address] Lux, admitted to TCU for rehabilitation, strengthening, wound care, intravenous antibiotics, prior to discharge home alone. * Debility - PT/OT. * Pain - Tylenol 1000MG Q8H PRN mild pain, Oxycodone 5MG Q4H PRN moderate pain. * Bowel - Miralax 17GM daily, Senna/colace 2 tablets BID, Dulcolax 10MG IA daily PRN. * Pneumonia vaccination - Administer Prevnar 13 and/or Pneumovax 23 as necessary. * DVT prophylaxis - Lovenox 40MG SC daily. * Hyperlipidemia - Atorvastatin 40MG QHS. * Glaucoma - Brimonidine 1GTT OU BID, Xalatan 1GTT OU QHS. * CV prophylaxis - Plavix 75MG daily. * Vitamin D deficiency - D2 50,000 units per week. * Neuropathic pain - Gabapentin 600MG QAM, 1600MG QHS. * Diabetes Mellitus II - Humulin R U-500 160 units QAM, 105 units QLUNCH, 105 units QDINNER. * Hypertension - Bystolic 10MG daily, Losartan 50MG daily. * Right heel ulcer infection - Meropenem 500MG IV Q8H, Dr. Daigle for stop date. * Nutrition - Madhu 1 packet BID. * GERD - Pantoprazole 40MG daily. 09/07/172023 <Electronically signed by Arnie Reese MD> Date Arnie Reese MD Cosigner Signature: Date (if applicable) CC: OUT OF TOWN DOCTOR; Arnie Reese MD Signed BEDSIDE GLUCOSE Collected: 09/07/2017 Status: F Source: [place] 4:27 PM [facility] REPOSITORY TYPE CODE TESTS RESULT OUT OF REFERENCE UNITS RANGE LAB L501.080 70-110 mg/dL High BEDSIDE GLU 136 Result Comment: MANAGEMENT OF PATIENT CARE PER NURSING PROTOCOL Performed By: #### L501.080 #### [facility] [address] [place] [address] DISCHARGE SUMMARY Observed: 09/07/2017 Status: F Source: [place] 4:04 PM [facility] REPOSITORY [facility] Medical Records Department [address] [place] [address] Discharge Summary 09/07/17 1554 MR#: [id number] Acct: [id number] Name: DEL BARRIOS Rep #: [id number] : 1960 57 From: Addis Barbour MD PCP: OUT OF TOWN DOCTOR Status: ADM IN Y Location: [facility] JD505-8 Discharge Date and Diagnosis - Problem List Patient Problems: Active and Suspected Problems Calcaneus pressure ulceration right foot (Acute) Osteomyelitis (Suspected) Date of Admission: 09/01/17 Date of Discharge: 09/07/17 - Primary Discharge Diagnosis Active and Suspected Problems Calcaneus pressure ulceration right foot (Acute) Osteomyelitis (Suspected) - Secondary Discharge Diagnosis Chronic Problems Ulcer of right foot with necrosis of bone (Chronic) Ulcer of left lower extremity with fat layer exposed (Chronic) Chronic kidney disease (CKD) (Chronic) Anemia (Chronic) BKA stump complication (Chronic) Hx of osteomyelitis (Chronic) Left lower leg amputation. 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) Delayed wound healing (Chronic) Malnutrition (Chronic) Venous insufficiency (Chronic) Lymphedema (Chronic) Edema of both legs (Chronic) GERD (gastroesophageal reflux disease) (Chronic) Hypertension (Chronic) Hyperlipemia (Chronic) Morbid obesity with BMI of 45.0-49.9, adult (Chronic) Hyperlipidemia associated with type 2 diabetes mellitus (Chronic) 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 He was started on intravenous antibiotics, imaging did not reveal any evidence of osteomyelitis. He underwent debridement of right heel ulcer including bone biopsy by podiatry. She did not reveal any evidence of osteomyelitis.Wound and surgical cultures revealed multiple bacteria, including morganella, providencia, enterococcus, and proteus. Infectious disease was consulted on the case recommended IV meropenem for 2 weeks. The patient had a PICC line in place for IV antibiotics at U. Start in a stable condition. Home Medications: Medications to take at Discharge Atorvastatin Calcium [Lipitor] 10 mg PO QHS 08/04/17 Brimonidine Tartrate 0.2% [Brimonidine 0.2% 5Ml Bottle] 1 drop EACH EYE BID 01/08/17 Ergocalciferol [Vitamin D] 50,000 unit PO FR 01/08/17 Gabapentin [Neurontin] 1,600 mg PO QHS 01/08/17 Gabapentin [Neurontin] 600 mg PO DAILY 01/08/17 Insulin U-500 [Humulin R U-500 (BKC)] 105 units SC DINNER 01/08/17 Insulin U-500 [Humulin R U-500 (BKC)] 105 units SC LUNCH 01/08/17 Insulin U-500 [Humulin R U-500 (BKC)] 160 units SC BREAKFAST 01/08/17 Latanoprost 0.005% [Xalatan Opthalmic] 1 drop EACH EYE QHS 01/08/17 Losartan Potassium [Cozaar] 50 mg PO DAILY 01/08/17 Nebivolol HCl [Bystolic (Beta Jeet)] 10 mg PO DAILY 01/08/17 Omeprazole [Prilosec] 40 mg PO DAILY 01/08/17 Acetaminophen [Tylenol Tablet] 650 mg PO Q6H PRN PRN tablet 09/07/17 Clopidogrel Bisulfate [Plavix] 75 mg PO DAILY tablet 09/07/17 Gabapentin [Neurontin] 1,600 mg PO QHS tablet 09/07/17 Hydrocodone Bitart/Apap 5-325 [[place] 5/325] 1 - 2 tab PO Q4H PRN PRN #10 tab 09/07/17 Meropenem [Merrem] 500 mg IV Q8 7 Days vial 09/07/17 Following Prescrptions Were Given to Patient: Hydrocodone Bitart/Apap 5-325 [[place] 5/325] 1 - 2 tab PO Q4H PRN PRN #10 tab PRN Reason: Severe Pain (6-03/16) Primary Care Physician: [facility] Doctor,Out of [Primary Care Provider] - Within 2 Weeks Medical Necessity - Tobacco Use Smoking Status: Former smoker Tobacco Use: Non-smoker Meaningful Use Info Meaningful Use Diagnoses (Choose all that apply): None applicable Code Visit Inpatient E AND M: 64745 Disch Hosp 09/07/17 1603 <Electronically signed by Addis Barbour MD> Date Addis Barbour MD Cosigner Signature (if applicable): Date CC: Addis Barbour MD; OUT OF TOWN DOCTOR Signed TRANSFER TO EXTENDED Observed: 09/07/2017 Status: F Source: [facility] 3:54 PM [facility] REPOSITORY [facility] Medical Records Department [address] [place] [address] Transfer to [facility] Care MR#: [id number] Acct: [id number] Name: DEL BARRIOS Rep #: [id number] : 1960 57 From: Addis Barbour MD PCP: OUT OF TOWN DOCTOR Status: ADM IN DEL BARRIOS (Patient) (Health Ins. Claim No.) (Day of Discharge to Facility) Certification of patient admission REQUIRED AT TIME OF ADMISSION. I CERTIFY THAT POST-HOSPITAL ECF SERVICES ARE REQUIRED TO BE GIVEN ON AN IN-PATIENT BASIS BECAUSE OF THE ABOVE NAMED PATIENT'S NEED FOR USP CARE ON A CONTINUING BASIS FOR THE CONDITION(S) FOR WHICH HE/SHE WAS RECEIVING IN-PATIENT HOSPITAL SERVICES PRIOR TO HIS/HER TRANSFER TO THE ECF. 09/07/17 1554 <Electronically signed by Addis Barbour MD> Date Addis Barbour MD - Diet 09/02/17 15:47 ADA [Diet: Calorie Controlled] Is pt able to select menu?: Yes How many daily calories?: 1800 calorie - Wound(s) right lateral norman Wound Type: Stasis Ulcer Dressing Change: Adaptic right lateral norman #2 Wound Type: Stasis Ulcer Dressing Change: Adaptic with dry dressing right posterior knee Wound Type: Abrasion Dressing Change: Adaptic right medial heel Wound Type: Neuropathic/Diabetic Foot Ulcer Dressing Change: Adaptic with dry dressing right foot toes Wound Type: few small open macerated areas Dressing Change: Adaptic with dry dressing R inner thigh Wound Type: scab - Allergies/Procedures Done in Hospital Allergies/Adverse Reactions: Allergies bee venom protein (honey bee) Allergy (Verified 01/08/17 12:04) Swelling metronidazole [From Flagyl] Allergy (Verified 01/13/17 14:51) Itching - Type of Care/Length of Stay Estimated LOS: Convalescent Care Less Than 30 days Type of Care Needed: Skilled Rehab Potential: Good Prognosis: Fair - Additional Orders/Day of Discharge H AND P will serve as current which was dated: 09/01/17 Day of Discharge: 09/07/17 - Dietary and Speech Recommendations Dietitian Recommendations/Changes: Rec diet change to 2000 calorie controlled, low sodium diet. Rec 1 packet Madhu BID for wound healing- must order from pharmacy. - Follow Up Care Primary Care Physician: [facility] Doctor,Out of [Primary Care Provider] - Within 2 Weeks 09/07/17 7344 <Electronically signed by Addis Barbour MD> Date Addis Barbour MD CC: Rachele Lux DPM; OUT OF [facility] DOCTOR; Dale Daigle MD Signed BEDSIDE GLUCOSE Collected: 09/07/2017 Status: F Source: [place] 11:54 AM [facility] REPOSITORY TYPE CODE TESTS RESULT OUT OF REFERENCE UNITS RANGE LAB L501.080 70-110 mg/dL High BEDSIDE GLU 215 Result Comment: MANAGEMENT OF PATIENT CARE PER NURSING PROTOCOL Performed By: #### L501.080 #### [place] [facility] Point of Care [address] [place], [place] [id number] BEDSIDE GLUCOSE Collected: 09/07/2017 Status: F Source: [place] 8:24 AM [facility] REPOSITORY TYPE CODE TESTS RESULT OUT OF REFERENCE UNITS RANGE LAB L501.080 70-110 mg/dL High BEDSIDE GLU 170 Result Comment: MANAGEMENT OF PATIENT CARE PER NURSING PROTOCOL Performed By: #### L501.080 #### [facility] Point of Care [address] [place] [address] BEDSIDE GLUCOSE Collected: 09/06/2017 Status: F Source: [place] 9:51 PM [facility] REPOSITORY TYPE CODE TESTS RESULT OUT OF REFERENCE UNITS RANGE LAB L501.080 70-110 mg/dL High BEDSIDE GLU 142 Result Comment: MANAGEMENT OF PATIENT CARE PER NURSING PROTOCOL Performed By: #### L501.080 #### [facility] Point of Care [address] [place] [address] BEDSIDE GLUCOSE Collected: 09/06/2017 Status: F Source: [place] 5:15 PM [facility] REPOSITORY TYPE CODE TESTS RESULT OUT OF REFERENCE UNITS RANGE LAB L501.080 70-110 mg/dL High BEDSIDE GLU 193 Result Comment: MANAGEMENT OF PATIENT CARE PER NURSING PROTOCOL Performed By: #### L501.080 #### [facility] Point of Care [address] [place] [address] BEDSIDE GLUCOSE Collected: 09/06/2017 Status: F Source: [place] 12:23 PM [facility] REPOSITORY TYPE CODE TESTS RESULT OUT OF REFERENCE UNITS RANGE LAB L501.080 70-110 mg/dL High BEDSIDE GLU 234 Result Comment: MANAGEMENT OF PATIENT CARE PER NURSING PROTOCOL Performed By: #### L501.080 #### [facility] Point of Care [address] [place] [address] BEDSIDE GLUCOSE Collected: 09/06/2017 Status: F Source: [place] 7:40 AM [facility] REPOSITORY TYPE CODE TESTS RESULT OUT OF REFERENCE UNITS RANGE LAB L501.080 70-110 mg/dL High BEDSIDE GLU 163 Result Comment: MANAGEMENT OF PATIENT CARE PER NURSING PROTOCOL Performed By: #### L501.080 #### [facility] Point of Care [address] [place] [address] BEDSIDE GLUCOSE Collected: 09/06/2017 Status: F Source: [place] 2:17 AM [facility] REPOSITORY TYPE CODE TESTS RESULT OUT OF REFERENCE UNITS RANGE LAB L501.080 70-110 mg/dL High BEDSIDE GLU 181 Result Comment: MANAGEMENT OF PATIENT CARE PER NURSING PROTOCOL Performed By: #### L501.080 #### [facility] Point of Care [address] [place] [address] BEDSIDE GLUCOSE Collected: 09/05/2017 Status: F Source: [place] 9:55 PM [facility] REPOSITORY TYPE CODE TESTS RESULT OUT OF REFERENCE UNITS RANGE LAB L501.080 70-110 mg/dL High BEDSIDE GLU 235 Result Comment: MANAGEMENT OF PATIENT CARE PER NURSING PROTOCOL Performed By: #### L501.080 #### [facility] Point of Care [address] [place] [address] BEDSIDE GLUCOSE Collected: 09/05/2017 Status: F Source: [place] 4:11 PM [facility] REPOSITORY TYPE CODE TESTS RESULT OUT OF REFERENCE UNITS RANGE LAB L501.080 70-110 mg/dL High BEDSIDE GLU 322 Result Comment: MANAGEMENT OF PATIENT CARE PER NURSING PROTOCOL Performed By: #### L501.080 #### [facility] Point of Care [address] [place] [address] BEDSIDE GLUCOSE Collected: 09/05/2017 Status: F Source: [place] 12:10 PM [facility] REPOSITORY TYPE CODE TESTS RESULT OUT OF REFERENCE UNITS RANGE LAB L501.080 70-110 mg/dL High BEDSIDE GLU 279 Result Comment: MANAGEMENT OF PATIENT CARE PER NURSING PROTOCOL Performed By: #### L501.080 #### [facility] Point of Care [address] [place] [address] BEDSIDE GLUCOSE Collected: 09/05/2017 Status: F Source: [place] 8:18 AM [facility] REPOSITORY TYPE CODE TESTS RESULT OUT OF REFERENCE UNITS RANGE LAB L501.080 70-110 mg/dL High BEDSIDE GLU 292 Result Comment: MANAGEMENT OF PATIENT CARE PER NURSING PROTOCOL Performed By: #### L501.080 #### [facility] Point of Care [address] [place] [address] BEDSIDE GLUCOSE Collected: 09/05/2017 Status: F Source: [place] 2:45 AM [facility] REPOSITORY TYPE CODE TESTS RESULT OUT OF REFERENCE UNITS RANGE LAB L501.080 70-110 mg/dL High BEDSIDE GLU 240 Result Comment: MANAGEMENT OF PATIENT CARE PER NURSING PROTOCOL Performed By: #### L501.080 #### [facility] Point of Care [address] [place] [address] BEDSIDE GLUCOSE Collected: 09/04/2017 Status: F Source: [place] 9:01 PM [facility] REPOSITORY TYPE CODE TESTS RESULT OUT OF REFERENCE UNITS RANGE LAB L501.080 70-110 mg/dL High BEDSIDE GLU 237 Result Comment: MANAGEMENT OF PATIENT CARE PER NURSING PROTOCOL Performed By: #### L501.080 #### [facility] Point of Care [address] [place] [address] BEDSIDE GLUCOSE Collected: 09/04/2017 Status: F Source: [place] 4:26 PM [facility] REPOSITORY TYPE CODE TESTS RESULT OUT OF REFERENCE UNITS RANGE LAB L501.080 70-110 mg/dL High BEDSIDE GLU 237 Result Comment: MANAGEMENT OF PATIENT CARE PER NURSING PROTOCOL Performed By: #### L501.080 #### [facility] Point of Care [address] [place] [address] BEDSIDE GLUCOSE Collected: 09/04/2017 Status: F Source: [place] 11:37 AM [facility] REPOSITORY TYPE CODE TESTS RESULT OUT OF REFERENCE UNITS RANGE LAB L501.080 70-110 mg/dL High BEDSIDE GLU 201 Result Comment: MANAGEMENT OF PATIENT CARE PER NURSING PROTOCOL Performed By: #### L501.080 #### [facility] Point of Care [address] [place] [address] BEDSIDE GLUCOSE Collected: 09/04/2017 Status: F Source: [place] 8:03 AM [facility] REPOSITORY TYPE CODE TESTS RESULT OUT OF REFERENCE UNITS RANGE LAB L501.080 70-110 mg/dL High BEDSIDE GLU 224 Result Comment: MANAGEMENT OF PATIENT CARE PER NURSING PROTOCOL Performed By: #### L501.080 #### [facility] Point of Care [address] [place] [address] BEDSIDE GLUCOSE Collected: 09/03/2017 Status: F Source: [place] 10:15 PM [facility] REPOSITORY TYPE CODE TESTS RESULT OUT OF REFERENCE UNITS RANGE LAB L501.080 70-110 mg/dL High BEDSIDE GLU 244 Result Comment: MANAGEMENT OF PATIENT CARE PER NURSING PROTOCOL Performed By: #### L501.080 #### [facility] Point of Care [address] [place] [address] BEDSIDE GLUCOSE Collected: 09/03/2017 Status: F Source: [place] 4:43 PM [facility] REPOSITORY TYPE CODE TESTS RESULT OUT OF REFERENCE UNITS RANGE LAB L501.080 70-110 mg/dL High BEDSIDE GLU 334 Result Comment: MANAGEMENT OF PATIENT CARE PER NURSING PROTOCOL Performed By: #### L501.080 #### [facility] Point of Care [address] [place] [address] BEDSIDE GLUCOSE Collected: 09/03/2017 Status: F Source: [place] 11:57 AM [facility] REPOSITORY TYPE CODE TESTS RESULT OUT OF REFERENCE UNITS RANGE LAB L501.080 70-110 mg/dL High BEDSIDE GLU 259 Result Comment: MANAGEMENT OF PATIENT CARE PER NURSING PROTOCOL Performed By: #### L501.080 #### [facility] Point of Care [address] [place] [address] BEDSIDE GLUCOSE Collected: 09/03/2017 Status: F Source: [place] 10:26 AM [facility] REPOSITORY TYPE CODE TESTS RESULT OUT OF REFERENCE UNITS RANGE LAB L501.080 70-110 mg/dL High BEDSIDE GLU 278 Result Comment: MANAGEMENT OF PATIENT CARE PER NURSING PROTOCOL Performed By: #### L501.080 #### [facility] Point of Care [address] [place] [address] Observed: 09/03/2017 Status: F Source: [place] CULTURE, DEEP WOUND 10:00 AM [facility] REPOSITORY Order Date: 01/06/17 Comments: calcaneus bone biopsy, right Gram Stain Gram Stain No White Blood Cells No organisms seen Wound Culture No growth aerobically. Cult, Anaerobic No growth in 5 days. Performed By: #### M100.1500, M100.3880, M600.1900 #### [facility] [address] [place], [address] AFB Observed: 09/03/2017 Status: F Source: [place] CULT/SMEAR [id number] 10:00 [facility] REPOSITORY Comments: calcaneus bone biopsy, right AFB Smear/Fluor TESTING PERFORMED AT [facility]. ORIGINAL REPORT ON FILE IN LAB CONTAINS ADDITIONAL TEST SITE INFORMATION. Smear, Acid Fast Tissue Grinding Smear: Negative AFB Cult TESTING PERFORMED AT [facility]. ORIGINAL REPORT ON FILE IN LAB CONTAINS ADDITIONAL TEST SITE INFORMATION. Culture, Acid Fast NO ACID-FAST BACILLI ISOLATED AFTER 6 WEEKS. Performed By: #### M100.1500, M100.3880, M600.1900 #### [facility] [address] [place], [address] Observed: 09/03/2017 Status: F Source: MILA MORRIS W/ 10:00 [facility] [id number] REPOSITORY Comments: calcaneus bone biopsy, right Is this test to exclude patient from TB Isolation? N Adan,[id number] TESTING PERFORMED AT [facility]. ORIGINAL REPORT ON FILE IN LAB CONTAINS ADDITIONAL TEST SITE INFORMATION. CUF No yeast or mold isolated after [address] [facility] ORIGINAL REPORT ON FILE IN LAB CONTAINS ADDITIONAL TEST SITE INFORMATION. Fungus Stain No yeast or mold observed. Performed By: #### M100.1500, M100.3880, M600.1900 #### [facility] [address] [place], [address] BONE (FX/NONFRACTURE) Observed: 09/03/2017 Status: F Source: [place] 7:15 AM [facility] REPOSITORY Patient: DEL BARRIOS : 1960 (57/M) Acct Num: [id number] Phys: Addis Barbour MD Unit Num: [id number] Loc: MS2 SW480-3 Specimen: [id number] Received: 09/03/17 - 1112 Spec Type: Bone TISSUES TISSUES: Bone of foot, NOS GROSS DESCRIPTION Received in fixative is one container labeled with the patient's name and designated calcaneus bone biopsy. The specimen consists of multiple fragments of bone that in aggregate measure 0.9 x 0.9 x 0.3 cm. The entire specimen is submitted in one cassette after decalcification. / SJ:charito 09/03/17 TC:5 CPT: 40704, 32538 HEADER OPERATION: Debridement heel ulcer, with bone biopsy PRE-OP DIAGNOSIS: right heel ulcer, osteomyelitis TISSUE SUBMITTED: Calcaneus bone biopsy MICROSCOPIC DESCRIPTION Slides are reviewed. MICROSCOPIC DIAGNOSIS Calcaneus bone, biopsy: Fragments of bone and dense fibroconnective tissue with reactive changes, negative for acute osteomyelitis. SJ:charito 09/08/17 Signed Russ Moreno 09/08/17 <signature on file> Performed By: #### PBON #### [facility] [address] [facility] [place], [place], [address] BEDSIDE GLUCOSE Collected: 09/03/2017 Status: F Source: [place] 6:21 AM [facility] REPOSITORY TYPE CODE TESTS RESULT OUT OF REFERENCE UNITS RANGE LAB L501.080 70-110 mg/dL High BEDSIDE GLU 312 Result Comment: MANAGEMENT OF PATIENT CARE PER NURSING PROTOCOL Performed By: #### L501.080 #### [facility] [facility] [address] [place], [place] [address] CBC W/DIFF, AUTOMATED Collected: 09/03/2017 Status: F Source: ELSINORE 5:15 AM [facility] REPOSITORY TYPE CODE TESTS RESULT OUT OF RANGE REFERENCE UNITS LAB L100.1000 4.4-11.0 K/mm3 Normal WBC 7.6 LAB L100.1200 4.6-6.2 M/mm3 Low RBC 3.38 LAB L100.1300 13.0-16.5 g/dl Low HGB 9.0 LAB L100.1400 40-54 % Low HCT 28.6 LAB L100.1500 80-94 fL Normal MCV 84.6 LAB L100.1600 27.0-32.0 pg Low MCH 26.6 LAB L100.1700 32-36 g/gl Low MCHC 31.5 LAB L100.1810 11.6-14.6 % High RDW CV 15.4 LAB L100.1820 35.1-43.9 fl High RDW SD 47.3 LAB L100.1900 150-450 K/mm3 Normal PLT 162 LAB L100.2000 6.2-12.0 fl Normal MPV 10.2 LAB L100.2100 47-70 % High NEUT% 72.0 LAB L100.2200 19-41 % Low LY% 17.7 LAB L100.2300 0-10 % Normal MONO% 5.8 LAB L100.2400 0-5 % Normal EO% 3.0 LAB L100.2500 0-1 % Normal BASO% 0.3 LAB L100.2550 0.0-0.9 % High IM GRAN % 1.200 Result Comment: IG% - Immature Granulocytes (promyelocytes, myelocytes and metamyelocytes) > 1% indicates that a LEFT SHIFT is Present. LAB L100.2620 2.0-7.7 X10 3/uL Normal Absolute Neut 5.5 LAB L100.2720 0.83-4.51 X10 3/ul Normal Absolute Lymph 1.35 Performed By: #### L100.0100, L500.2500 #### [facility] [address] [place], [address] BASIC METABOLIC Collected: 09/03/2017 Status: F Source: ELSINORE PROFILE (BMP) 5:15 AM [facility] REPOSITORY TYPE CODE TESTS RESULT OUT OF RANGE REFERENCE UNITS LAB L501.0100 74-106 mg/dL High GLU 321 Result Comment: Glucose result greater than or equal to 200 mg/dL suggests DIABETES MELLITUS per A.D.A. criteria. Please note revised GLUCOSE reference range effective 2017. LAB L501.1000 7-18 mg/dL High BUN 49 LAB L501.1100 0.70-1.30 mg/dL High CREAT,SERUM 2.07 Result Comment: The validity of the calculated GFR AND GFRAA in patients over 70 years has not been determined. Clinical correlation is essential. LAB L501.1110 >60 mL/min Low EST GFR 35 Result Comment: Non- GFR Calc LAB L501.1115 >60 mL/min Low EST GFR - AA 42 Result Comment: GFR Calc LAB L501.1255 ml/min Normal Estimated CRCL 35.92 LAB L501.1300 10-20 RATIO High BUN/CRE 23.7 LAB L501.2200 8.5-10 mg/dL Low .1 CA 8.4 LAB L501.5300 136-14 mmol/L Low 5 NA 135 LAB L501.5600 3.5-5. mmol/L Normal 1 K 4.8 LAB L501.5900 98-107 mmol/L Normal CL 102 LAB L501.6100 21.0-3 mmol/L Normal 2.0 CO2 27.0 LAB L501.6200 5-15 Normal GAP 6 Performed By: #### L100.0100, L500.2500 #### [facility] [address] [place], [address] PROTHROMBIN TIME W/INR Collected: 09/03/2017 Status: F Source: ELSINORE 5:15 AM [facility] REPOSITORY TYPE CODE TESTS RESULT OUT OF RANGE REFERENCE UNITS LAB L300.4150 11.7-14.9 SECONDS Normal PROTIME 14.5 LAB L300.4200 Normal INR 1.1 Performed By: #### L300.3900, L300.4310 #### [facility] [address] [place], [address] PARTIAL THROMBOPLAST Collected: 09/03/2017 Status: F Source: ELSINORE TIME 5:15 AM [facility] REPOSITORY TYPE CODE TESTS RESULT OUT OF REFERENCE UNITS RANGE LAB L300.4310 24.1-36.2 Seconds High PTT 38.0 Performed By: #### L300.3900, L300.4310 #### [facility] [address] [place], [address] CALCANEUS MIN 2 VIEWS Observed: 09/03/2017 Status: F Source: ELSINORE 1:32 AM [facility] REPOSITORY [facility] Imaging Services [address] [place] [address] Calcaneus min 2 Views MR#: [id number] Acct: [id number] Name: DENISDEL SWANSON Kimmy Rep #: [id number] : 1960 M 57 From: Dale Allen MD PCP: OUT OF TOWN DOCTOR Status: ADM IN Study: Calcaneus min 2 Views Date of Exam: 09/03/17 Exam# [id number] Ordering Dr: Rachele Lux DPM STUDY: X-RAY - RIGHT CALCANEUS REASON FOR EXAM: Male, 57 years old. Right os calcis bone biopsy. TECHNIQUE: Single lateral view of the calcaneus was obtained. Fluoroscopy time: 4 seconds. COMPARISON: None available. Correlation right foot 09/01/2017. FINDINGS: Calcaneus is incompletely seen with metal biopsy cylindrical bone biopsy instrument noted projecting over the superior posterior calcaneus with inferior serrated margins. Radiologist not present during procedure. Please see operative report for details. RAD/Calcaneus min 2 Views IMPRESSION: Bone biopsy superior posterior calcaneus as described. Please see operative report for details. Electronically Signed: Dale Allen, at 14:36 EDT Tel , Service support , CC: Rachele Lux DPTrupti; OUT OF TOWN DOCTOR Overlock Operator: Signed BEDSIDE GLUCOSE Collected: 09/02/2017 Status: F Source: RUDY 10:40 PM [facility] REPOSITORY TYPE CODE TESTS RESULT OUT OF REFERENCE UNITS RANGE LAB L501.080 70-110 mg/dL High BEDSIDE GLU 312 Result Comment: MANAGEMENT OF PATIENT CARE PER NURSING PROTOCOL Performed By: #### L501.080 #### [facility] Point of Care [address] [facility] [address] [place], [place] [address] BEDSIDE GLUCOSE Collected: 09/02/2017 Status: F Source: RUDY 5:53 PM [facility] REPOSITORY TYPE CODE TESTS RESULT OUT OF REFERENCE UNITS RANGE LAB L501.080 70-110 mg/dL High BEDSIDE GLU 387 Result Comment: MANAGEMENT OF PATIENT CARE PER NURSING PROTOCOL Performed By: #### L501.080 #### [facility] Point of Care [address] [facility] [address] BEDSIDE GLUCOSE Collected: 09/02/2017 Status: F Source: RUDY 4:26 PM [facility] REPOSITORY TYPE CODE TESTS RESULT OUT OF REFERENCE UNITS RANGE LAB L501.080 70-110 mg/dL High BEDSIDE GLU 363 Result Comment: MANAGEMENT OF PATIENT CARE PER NURSING PROTOCOL Performed By: #### L501.080 #### [facility] Point of Care [address] [place] [address] BEDSIDE GLUCOSE Collected: 09/02/2017 Status: F Source: ELSINORE 12:17 PM [facility] REPOSITORY TYPE CODE TESTS RESULT OUT OF REFERENCE UNITS RANGE LAB L501.080 70-110 mg/dL High BEDSIDE GLU 401 Result Comment: MANAGEMENT OF PATIENT CARE PER NURSING PROTOCOL Performed By: #### L501.080 #### [facility] Point of Care [address] [place] [address] CONSULTATION Observed: 09/02/2017 Status: F Source: ELSINORE 10:03 AM [facility] REPOSITORY [facility] Medical Records Department [address] [place] [address] Consultation 09/02/17 0954 MR#: [id number] Acct: [id number] Name: DEL BARRIOS Rep #: [id number] : 1960 57 From: Dale Daigle MD PCP: OUT OF TOWN DOCTOR Status: ADM IN Location: [facility] [id number] Problem List (1) Ulcer of right foot with necrosis of muscle Status: Acute Reason for Consult: R heel infection Consulted by: Dr. Sharma History of Present Illness: The patient is a 57 year old M with h/o CKD, uncontrolled T2DM, recurrent foot infection, and LLE BKA who presented with worsening R heel drainage and inflammation. Cx from 07/2017 with proteus, klebs, and providencia. Previously in 01/2017 grew GNRs and MSSA. 07/2017, given course of cefdinir and cipro and heel was doing better, but sx returned off of abx. Seen in wound care yesterday by Dr. Lux and admission for debridement and IV abx was recommended. No fever, no n/v/d. Started on vanc/meropenem. Full ROS performed and neg except as noted above. - Medical History Past Medical History (Chronic Problems): Chronic Problems Ulcer of left lower extremity with fat layer exposed (Chronic) Chronic kidney disease (CKD) (Chronic) Anemia (Chronic) BKA stump complication (Chronic) Hx of osteomyelitis (Chronic) Left lower leg amputation. 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) Delayed wound healing (Chronic) Malnutrition (Chronic) Venous insufficiency (Chronic) Lymphedema (Chronic) Edema of both legs (Chronic) GERD (gastroesophageal reflux disease) (Chronic) Hypertension (Chronic) Hyperlipemia (Chronic) Morbid obesity with BMI of 45.0-49.9, adult (Chronic) Hyperlipidemia associated with type 2 diabetes mellitus (Chronic) 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 Allergies/Adverse Reactions: Allergies bee venom protein (honey bee) Allergy (Verified 01/08/17 12:04) Swelling metronidazole [From Flagyl] Allergy (Verified 01/13/17 14:51) Itching Home Medications: Ambulatory Orders Medication Instructions Recorded Apixaban [Eliquis] 2.5 mg PO BID 01/08/17 Atorvastatin Calcium [Lipitor] 10 mg PO QHS 01/08/17 Brimonidine Tartrate 0.2% 1 drop EACH EYE BID 01/08/17 - Social History SMOKING STATUS:: Former smoker Vital Signs Temp Pulse Resp BP Pulse Ox 97.0 F L 85 18 159/82 H 96 09/02/17 08:39 09/02/17 08:39 09/02/17 08:39 09/02/17 08:39 09/02/17 08:39 Oxygen Delivery Method Room Air Weight: 140.3 kg Body Mass Index (BMI) 48.4 Finger Stick Blood Glucose 61 Laboratory Tests Past 24 Hrs WBC 9.8 - Other Studies Radiology: [] reviewed Other Studies: [] Route of nutrition/ use of supplements: [] Nutritional Intake: [] IV Site: [] Elizalde Catheter: [] - Physical Exam General: Alert, Oriented x3, Cooperative, No apparent distress HEENT: Atraumatic, PERRLA, EOMI Neck: Supple, No Nodes Lungs: Clear to auscultation, Normal air movement Cardiovascular: Regular rate, Regular Rhythm Abdomen: Bowel Sounds Present, Soft, Non Tender, Non-Distended, Obese Extremities: - - L BKA Skin: Ulcer/ Wound - Reviewed photos - deep R heel ulcer IV Site: Peripheral, without redness Musculoskeletal: No Tenderness to Palpation of Joints or Extremities - Assessment/Plan Antibiotics: [] Assessment/Plan: [] Active and Suspected Problems Calcaneus pressure ulceration right foot (Acute) R heel chronic infected ulcer - concern for underlying osteo. Had MRI w/o contrast in 07/2017 with no osteo seen. Dr. Lux to see. MRSA pcr neg, wound cx pending. Will stop vanc. Continue meropenem while cxs pending. Surgical plan re: debridement vs amputation is pending. Plan will be for long course of iv abx unless he is able to get definitive amputation (though this seems less likely given past refusals and prior amputation of LLE). Will follow, thank you. D/w pharmacy and Dr. Sharma. 09/02/17 1003 <Electronically signed by Dale Daigle MD> Date Dale Daigle MD Cosigner Signature (if applicable): Date CC: Rachele Lux DPM; Ruddy Sharma DO; OUT OF TOWN DOCTOR; Dale Daigle MD Signed BEDSIDE GLUCOSE Collected: 09/02/2017 Status: F Source: RUDY 8:16 AM [facility] REPOSITORY TYPE CODE TESTS RESULT OUT OF REFERENCE UNITS RANGE LAB L501.080 70-110 mg/dL High BEDSIDE GLU 406 Result Comment: MANAGEMENT OF PATIENT CARE PER NURSING PROTOCOL Performed By: #### L501.080 #### [facility] Point of Care [address] [place] [address] CBC W/DIFF, AUTOMATED Collected: 09/02/2017 Status: F Source: RUDY 5:20 AM [facility] REPOSITORY TYPE CODE TESTS RESULT OUT OF RANGE REFERENCE UNITS LAB L100.1000 4.4-11.0 K/mm3 Normal WBC 9.2 LAB L100.1200 4.6-6.2 M/mm3 Low RBC 3.57 LAB L100.1300 13.0-16.5 g/dl Low HGB 9.7 LAB L100.1400 40-54 % Low HCT 30.5 LAB L100.1500 80-94 fL Normal MCV 85.4 LAB L100.1600 27.0-32.0 pg Normal MCH 27.2 LAB L100.1700 32-36 g/gl Low MCHC 31.8 LAB L100.1810 11.6-14.6 % High RDW CV 15.2 LAB L100.1820 35.1-43.9 fl High RDW SD 45.8 LAB L100.1900 150-450 K/mm3 Normal PLT 191 LAB L100.2000 6.2-12.0 fl Normal MPV 10.6 LAB L100.2100 47-70 % High NEUT% 72.4 LAB L100.2200 19-41 % Low LY% 16.2 LAB L100.2300 0-10 % Normal MONO% 7.3 LAB L100.2400 0-5 % Normal EO% 2.1 LAB L100.2500 0-1 % Normal BASO% 0.2 LAB L100.2550 0.0-0.9 % High IM GRAN % 1.800 Result Comment: IG% - Immature Granulocytes (promyelocytes, myelocytes and metamyelocytes) > 1% indicates that a LEFT SHIFT is Present. LAB L100.2620 2.0-7.7 X10 3/uL Normal Absolute Neut 6.7 LAB L100.2720 0.83-4.51 X10 3/ul Normal Absolute Lymph 1.49 Performed By: #### L100.0100 #### [facility] [address] [place], [address] BASIC METABOLIC Collected: 09/02/2017 Status: F Source: ELSINORE PROFILE ([facility]) 5:20 AM [facility] REPOSITORY TYPE CODE TESTS RESULT OUT OF RANGE REFERENCE UNITS LAB L501.0100 74-106 mg/dL High GLU 376 Result Comment: Glucose result greater than or equal to 200 mg/dL suggests DIABETES MELLITUS per A.D.A. criteria. Please note revised GLUCOSE reference range effective 2017. LAB L501.1000 7-18 mg/dL High BUN 50 LAB L501.1100 0.70-1.30 mg/dL High CREAT,SERUM 2.08 Result Comment: The validity of the calculated GFR AND GFRAA in patients over 70 years has not been determined. Clinical correlation is essential. LAB L501.1110 >60 mL/min Low EST GFR 35 Result Comment: Non- GFR Calc LAB L501.1115 >60 mL/min Low EST GFR - AA 42 Result Comment: GFR Calc LAB L501.1255 ml/min Normal Estimated CRCL 35.75 LAB L501.1300 10-20 RATIO High BUN/CRE 24.0 LAB L501.2200 8.5-10 mg/dL Normal .1 CA 8.6 LAB L501.5300 136-14 mmol/L Low 5 NA 135 LAB L501.5600 3.5-5. mmol/L Normal 1 K 4.9 LAB L501.5900 98-107 mmol/L Normal CL 101 LAB L501.6100 21.0-3 mmol/L Normal 2.0 CO2 26.0 LAB L501.6200 5-15 Normal GAP 8 Performed By: #### L500.2500 #### [facility] [address] [place], [address] Observed: 09/01/2017 Status: F Source: ELSINORE CULTURE, DEEP WOUND 11:30 PM [facility] REPOSITORY Comments: right heel infected ulcer Gram Stain Gram Stain 3+ Gram negative rods 2+ Gram positive cocci Rare Epithelial cells Wound Culture ORGANISM 1: Morganella morganii sp morgani Amount Growth 3+ ORGANISM 2: Providencia stuartii Amount Growth 3+ ORGANISM 3: Enterococcus avium Amount Growth 2+ ORGANISM 4: Proteus mirabilis Amount Growth 3+ Morganella morganii sp morgani: REACTION Amoxacillin/Clavulanic Acid $ >=32 R Ampicillin $ >=32 R Ampicillin/Sulbactam $ >=32 R Cefazolin $ >=64 R Cefepime $ <=1 S Ceftriaxone $ <=1 S Ciprofloxacin $ 0.5 S Ertapenim $$$ <=0.5 S Gentamicin $ <=1 S Levofloxacin $ <=0.12 S Piperacillin/Tazobactam $$ <=4 S Tobramycin $ <=1 S Trimethoprim/Sulfametho $ <=20 S (NF) indicates non-formulary drug at [facility]. Approval by Infectious Disease Specialist required before non-formulary drugs may be ordered and/or dispensed. Providencia stuartii: REACTION Ampicillin $ 16 R Ampicillin/Sulbactam $ 4 S Cefazolin $ >=64 R Cefepime $ <=1 S Ceftriaxone $ <=1 S Ciprofloxacin $ >=4 R Gentamicin $ 8 R Levofloxacin $ >=8 R Piperacillin/Tazobactam $$ <=4 S Tobramycin $ 2 R Trimethoprim/Sulfametho $ <=20 S (NF) indicates non-formulary drug at [facility]. Approval by Infectious Disease Specialist required before non-formulary drugs may be ordered and/or dispensed. Enterococcus avium: REACTION Ampicillin $ <=2 S Benzylpenicillin NF 0.25 S Gentamicin SYN-S S Tigecycline $$$$ <=0.12 S Streptomycin $ SYN-S S Vancomycin $ <=0.5 S (NF) indicates non-formulary drug at [facility]. Approval by Infectious Disease Specialist required before non-formulary drugs may be ordered and/or dispensed. * CLSI guidelines does not recommend testing of cephalosporins. This interpretation is deduced from Beta-lactam/penicillin results. Proteus mirabilis: REACTION Amoxacillin/Clavulanic Acid $ <=2 S Ampicillin $ <=2 S Ampicillin/Sulbactam $ <=2 S Cefazolin $ <=4 S Cefepime $ <=1 S Ceftriaxone $ <=1 S Ciprofloxacin $ >=4 R Ertapenim $$$ <=0.5 S Gentamicin $ <=1 S Levofloxacin $ >=8 R Piperacillin/Tazobactam $$ <=4 S Tobramycin $ <=1 S Trimethoprim/Sulfametho $ <=20 S (NF) indicates non-formulary drug at [facility]. Approval by Infectious Disease Specialist required before non-formulary drugs may be ordered and/or dispensed. Cult, Anaerobic Studies have confirmed that Prevotella, Porphyromonas and Bacteroides species other than B. fragilis group are routinely susceptible to: Ampicillin/Sulbactam, Piperacillin/Tazobactam, Cefoxitin, Tigecycline, Ertapenem, Imipenem, Meropenem and Metronidazole and variable in resistance to: Penicillin/Ampicillin, Clindamycin and Moxifloxacin. ORGANISM 1: Prevotella disiens Beta Lactamase Negative Performed By: #### M100.1500 #### [facility] [address] [place], [place] [address] [place], [address] M R STAPH AUREUS Collected: 09/01/2017 Status: F Source: ELSINORE DNA BY PCR 11:19 PM [facility] REPOSITORY TYPE CODE TESTS RESULT OUT OF RANGE REFERENCE UNITS LAB L8200.1100 Negative Normal MRSA Negative RESULT Performed By: #### L8200.1000 #### [facility] [address] [place], [address] BEDSIDE GLUCOSE Collected: 09/01/2017 Status: F Source: ELSINORE 10:43 PM [facility] REPOSITORY TYPE CODE TESTS RESULT OUT OF REFERENCE UNITS RANGE LAB L501.080 70-110 mg/dL High BEDSIDE GLU 361 Result Comment: MANAGEMENT OF PATIENT CARE PER NURSING PROTOCOL Performed By: #### L501.080 #### [facility] Point of Care [address] [place] [address] FOOT MIN 3 VIEWS Observed: 09/01/2017 Status: F Source: ELSINORE 8:47 PM [facility] REPOSITORY [facility] Imaging Services [address] [place] [address] Foot min 3 Views MR#: [id number] Acct: [id number] Name: DEL BARRIOS Rep #: [id number] : 1960 M 57 From: Kee Zuniga PCP: OUT OF TOWN DOCTOR Status: ADM IN Study: Foot min 3 Views Date of Exam: 09/01/17 Exam# [id number] Ordering Dr: Ruddy Sharma DO STUDY: X-RAY - RIGHT FOOT CLINICAL: Male, 57 years old. Right foot infection TECHNIQUE: 4 view(s) of the foot. COMPARISON: 07/21/2017. FINDINGS: Demineralization. Normal talus, calcaneus, and tarsal bones. Normal visualized subtalar, talonavicular, calcaneocuboid, tarsal and tarsometatarsal articulations. Fifth toe amputation. First and fourth metatarsals are unremarkable. Normal metatarsophalangeal joint of the great toe. Normal tibial and fibular sesamoid bones. Normal interphalangeal joint of the great toe. Normal phalanges of the great toe. Normal second through fifth metatarsophalangeal joints. Normal interphalangeal joints and phalanges of the lesser toes. Dorsal soft tissue swelling. RAD/Foot min 3 Views IMPRESSION: No fracture. No cortical erosion or evidence of osteomyelitis. Amputation of the fifth toe. Demineralization. Continued dorsal soft tissue swelling. No interval change. Electronically Signed: Kee Zuniga DO at 23:57 EDT , Service support , CC: Ruddy Sharma DO; OUT OF TOWN DOCTOR Overlock Operator: Signed HISTORY AND PHYSICAL Observed: 09/01/2017 Status: F Source: ELSINORE EXAM 8:44 PM [facility] REPOSITORY [facility] Medical Records Department [address] [place] [address] History and Physical 09/01/172010 MR#: [id number] Acct: [id number] Name: DEL BARRIOS Rep #: [id number] : 1960 57 From: Ruddy Sharma DO PCP: OUT OF TOWN DOCTOR Status: ADM IN Location: [facility] [id number] Problem List (1) Calcaneus pressure ulceration right foot Status: Acute History of Present Illness Date of Admission: 09/01/17 Chief Complaint: Calcaneus pressure ulceration right foot The patient is a 57 year old M who was directly admitted to [place] [address] after being seen today by podiatric medicine and it was noted that his right calcaneus neuropathic pressure ulceration was not healing and it was determined he should be admitted for further aggressive treatment including antibiotics and debridement. Patient has a long history of type 2 diabetes, he states he was diagnosed with type 2 diabetes in 1998, it is probable that his diabetes is not under good control-previous A1c's were well above 8, he states he sees a family practitioner in [place] but the patient was in [place]. He also states he has an signals intelligence analyst in the [place] that he sees every 3 months. Patient was hospitalized last at [facility] in January 2017 for right foot infection, at that time he grew out multiple organisms including MSSA, Proteus, Providencia, and Klebsiella. Most recent culture in the computer shows Klebsiella pneumoniae, Proteus, and Morganella. Past Medical History Past Medical History (Chronic Problems): Chronic Problems Ulcer of left lower extremity with fat layer exposed (Chronic) Chronic kidney disease (CKD) (Chronic) Anemia (Chronic) BKA stump complication (Chronic) Hx of osteomyelitis (Chronic) Left lower leg amputation. 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) Delayed wound healing (Chronic) Malnutrition (Chronic) Venous insufficiency (Chronic) Lymphedema (Chronic) Edema of both legs (Chronic) GERD (gastroesophageal reflux disease) (Chronic) Hypertension (Chronic) Hyperlipemia (Chronic) Morbid obesity with BMI of 45.0-49.9, adult (Chronic) Hyperlipidemia associated with type 2 diabetes mellitus (Chronic) 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 Allergies bee venom protein (honey bee) Allergy (Verified 01/08/17 12:04) Swelling metronidazole [From Flagyl] Allergy (Verified 01/13/17 14:51) Itching Home Medications: Ambulatory Orders Medication Instructions Recorded Apixaban [Eliquis] 2.5 mg PO BID 01/08/17 Atorvastatin Calcium [Lipitor] 10 mg PO QHS 01/08/17 Brimonidine Tartrate 0.2% 1 drop EACH EYE BID 01/08/17 Surgical History: tonsillectomy, - - below the knee amputation left leg, surgery on detached retina, laser surgery on eyes secondary to diabetic retinopathy, right little toe amputation, right foot surgery Psychiatric History: No pertinent psych hx Lives: Alone Smoking Status: Former smoker Tobacco Use: Non-smoker Alcohol: None Drugs: None - *Family History Maternal History Items: Diabetes Paternal History Items: Hypertension Sibling History Items: Diabetes Review of Systems Constitutional: Denies: Anorexia, Chills, Fever, Night Sweats, Malaise, Weakness, Weight Change, Fatigue Eyes: Denies: Blurred vision, Cataracts, Conjunctivae Inflammation, Double vision, Drainage HEENT: Denies: Difficulty Hearing, Difficulty Swallowing, Dysphasia, Ear Pain, Eye Pain, Head Aches, Hearing Changes, Nasal bleeding, Nasal Congestion, Post Nasal Drip Cardiovascular: Denies: Chest Pain, Claudication, Chest Pressure, Chest Tightness, Edema, Heaviness, Light Headedness, Orthopnea, Palpitations, Paroxysmal Noc. Dyspnea, Syncope Respiratory: Denies: Cough, Hemoptysis, Pleuritic Pain, Shortness of Breath, Shortness of breath at rest, Shortness of breath upon exertion, Sputum production, Wheezing Gastrointestinal: Denies: Abdominal Pain, Constipation, Diarrhea, Hematemesis, Hematochezia, Nausea, Melena, Vomiting Genitourinary: Reports: - - Chronic kidney disease history. Denies: Dysuria, Frequency, Hematuria, Hesitancy, Incontinence, Nocturia, Urgency Musculoskeletal: Denies: Back Pain, Foot Pain, Hand Pain, Joint Pain, Joint stiffness, Joint swelling, Joint Tenderness, Leg Pain Skin: Reports: Wounds - Chronic right foot wound since July 2017 according to the patient. Denies: Dryness, Jaundice, Pruritis, Rash Neurological: Reports: Numbness - Diabetic neuropathy of the right foot. Denies: Blurred vision, Double vision, Slurred speech, Difficulty swallowing, Focal weakness, Headaches, Tingling Psychiatric: Denies: Anxiety, Depression, Homicidal Ideations, Suicidal Ideations Endocrine: Denies: Change in Body Habitus, Heat/ Cold Intolerance, Polydipsia, Polyuria Hematologic/ Lymphatic: Denies: Adenopathy, Anemia, Easy Bruising, Easy Bleeding, Petechiae, Purpura VTE Information - Inpt Only VTE Present on Admission: No VTE Mechan Device Prophylaxis: None VTE Pharm Prophylaxis ordered?: Yes Patient Problems: Active and Suspected Problems Calcaneus pressure ulceration right foot (Acute) - Physical Exam General: Alert, Oriented x3, Cooperative, No apparent distress, Well developed, Well nourished HEENT: Atraumatic, PERRLA, EOMI, Normocephalic Oral: Moist Mucosa Neck: Supple, No JVD, No Nuchal Rigidity, Trachea Midline, Thyroid Normal Size and Texture Lungs: Clear to auscultation, Normal air movement, No rhonchi, No wheeze, No rales Cardiovascular: Regular rate, Regular Rhythm, Normal S1, Normal S2, No murmurs, No Ectopic Activity, PMI Normal, No rub noted, No Gallop Abdomen: Bowel Sounds Present, Soft, Non Tender, Non-Distended, Obese, No hernias noted Extremities: Capillary Refill Less than 3 Seconds, Edema - Generalized edema and deformity of the right foot is noted Skin: Ulcer/ Wound - There is a large eschar over the patient's right calcaneus, Rash Present - Stasis dermatitis changes are noted over the patient's right and left lower leg, - - Right foot is covered in debris Musculoskeletal: No Tenderness to Palpation of Joints or Extremities, - - Below the knee amputation is noted with stasis dermatitis changes in the distal left leg Neurological: Cranial nerves II-XII grossly intact, - - Patient has no sensation to light touch and pain in the right foot Psych/Mental Status: Normal Affect, Appropriate, Alert and oriented to time, place, person, mood and affect Vital Signs Temp Pulse Resp BP Pulse Ox 98.8 F 85 18 139/69 H 98 09/01/17 13:26 09/01/17 13:26 09/01/17 13:26 09/01/17 13:26 09/01/17 13:26 Oxygen Delivery Method Room Air Weight: 140.3 kg Body Mass Index (BMI) 48.4 Finger Stick Blood Glucose 61 Intake and Output for Last 24 Hours Intake Total 760 / 760 Balance 760 / 760 Laboratory Tests Past 24 Hrs POC Glucose POC Glucose 313 H Assessment/Plan Active and Suspected Problems Calcaneus pressure ulceration right foot (Acute) #1 infected neuropathic pressure ulceration right calcaneus- secondary to severe peripheral vascular disease of the right leg, uncontrolled type 2 diabetes, and noncompliance with medical treatment-patient will be admitted to [facility] 2, patient will be placed on IV vancomycin and IV meropenem-I am not going to use Zosyn at this time due to the fact that on his last culture, the Klebsiella pneumoniae was intermediate to Zosyn. ID will be consulted, labs were ordered, x-rays of the right foot will be obtained, podiatry will be consulted () #2 uncontrolled type 2 diabetes-hemoglobin A1c was ordered, patient is on a large amount of U500 insulin, I am uncomfortable with writing for this amount of U5 100 insulin, he will be placed on Levemir twice a day, NovoLog with each meal, and sliding scale insulin with a high protocol. I suspect his type 2 diabetes is under poor control, I feel the patient has a poor grasp of how to control his sugars #3 peripheral vascular disease of the lower extremities secondary to type 2 diabetes #4 stage III chronic kidney disease secondary to type 2 diabetes #5 neuropathy secondary to type 2 diabetes #6 morbid obesity Code Visit Inpatient E AND M: 28901 Init Hosp L3 09/01/172043 <Electronically signed by Ruddy Sharma DO> Date Ruddy Sharma DO Cosigner Signature: Date (if applicable) CC: Ruddy Sharma DO; OUT OF TOWN DOCTOR Signed CBC W/DIFF, AUTOMATED Collected: 09/01/2017 Status: F Source: [place] 6:08 PM [facility] REPOSITORY TYPE CODE TESTS RESULT OUT OF RANGE REFERENCE UNITS LAB L100.1000 4.4-11.0 K/mm3 Normal WBC 9.8 LAB L100.1200 4.6-6.2 M/mm3 Low RBC 3.57 LAB L100.1300 13.0-16.5 g/dl Low HGB 9.5 LAB L100.1400 40-54 % Low HCT 30.8 LAB L100.1500 80-94 fL Normal MCV 86.3 LAB L100.1600 27.0-32.0 pg Low MCH 26.6 LAB L100.1700 32-36 g/gl Low MCHC 30.8 LAB L100.1810 11.6-14.6 % High RDW CV 15.4 LAB L100.1820 35.1-43.9 fl High RDW SD 48.2 LAB L100.1900 150-450 K/mm3 Normal PLT 182 LAB L100.2000 6.2-12.0 fl Normal MPV 10.1 LAB L100.2100 47-70 % High NEUT% 74.0 LAB L100.2200 19-41 % Low LY% 14.6 LAB L100.2300 0-10 % Normal MONO% 7.8 LAB L100.2400 0-5 % Normal EO% 2.2 LAB L100.2500 0-1 % Normal BASO% 0.1 LAB L100.2550 0.0-0.9 % High IM GRAN % 1.300 Result Comment: IG% - Immature Granulocytes (promyelocytes, myelocytes and metamyelocytes) > 1% indicates that a LEFT SHIFT is Present. LAB L100.2620 2.0-7.7 X10 3/uL Normal Absolute Neut 7.3 LAB L100.2720 0.83-4.51 X10 3/ul Normal Absolute Lymph 1.43 Performed By: #### L100.0100, L101.9900 #### [facility] [address] [place], [place], [id number] ERYTHROCYTE SED RATE Collected: 09/01/2017 Status: F Source: [place] 6:08 PM [facility] REPOSITORY TYPE CODE TESTS RESULT OUT OF RANGE REFERENCE UNITS LAB L102.0000 0-20 mm/hr High SED RATE 77 Performed By: #### L100.0100, L101.9900 #### [facility] [address] [facility] [place], [place], [address] HEMOGLOBIN A1C Collected: 09/01/2017 Status: F Source: [place] 6:08 PM [facility] REPOSITORY TYPE CODE TESTS RESULT OUT OF RANGE REFERENCE UNITS LAB L501.9985 4.2-6.3 % High HGB A1C 9.2 Performed By: #### L501.9985 #### [facility] [address] [place], [place], [id number] COMPREHENSIVE METABOLIC Collected: 09/01/2017 Status: F Source: [facility] 6:08 PM [facility] REPOSITORY TYPE CODE TESTS RESULT OUT OF RANGE REFERENCE UNITS LAB L501.0100 74-106 mg/dL High GLU 306 Result Comment: Glucose result greater than or equal to 200 mg/dL suggests DIABETES MELLITUS per A.D.A. criteria. Please note revised GLUCOSE reference range effective 2017. LAB L501.1000 7-18 mg/dL High BUN 52 LAB L501.1100 0.70-1.30 mg/dL High CREAT,SERUM 1.98 Result Comment: The validity of the calculated GFR AND GFRAA in patients over 70 years has not been determined. Clinical correlation is essential. LAB L501.1110 >60 mL/min Low EST GFR 37 Result Comment: Non- GFR Calc LAB L501.1115 >60 mL/min Low EST GFR - AA 45 Result Comment: GFR Calc LAB L501.1255 ml/min Normal Estimated CRCL 37.56 LAB L501.1300 10-20 RATIO High BUN/CRE 26.3 LAB L501.1500 6.4-8. g/dL Normal 2 T PROT 7.5 LAB L501.1800 3.2-5. g/dL Low 0 ALB 2.8 LAB L501.1950 2.2-4. g/dL High 2 GLOB 4.7 LAB L501.2000 0.9-2. RATIO Low 4 A/G 0.6 LAB L501.2200 8.5-10 mg/dL Low .1 CA 8.3 LAB L501.4100 15-37 U/L Normal AST 21 LAB L501.4305 45-117 U/L Normal ALK P 97 LAB L501.4405 16-61 U/L Normal ALT 36 Result Comment: Please note revised ALT reference range effective 2017. LAB L501.4600 0.20-1.00 mg/dL Normal T BILI 0.40 LAB L501.5300 136-145 mmol/L Normal NA 137 LAB L501.5600 3.5-5.1 mmol/L High K 5.4 LAB L501.5900 98-107 mmol/L Normal CL 104 LAB L501.6100 21.0-32.0 mmol/L Normal CO2 24.0 LAB L501.6200 5-15 Normal GAP 9 Performed By: #### L500.4050, L501.6710 #### [facility] [address] [place], [address] CRP Collected: 09/01/2017 Status: F Source: [place] 6:08 PM [facility] REPOSITORY TYPE CODE TESTS RESULT OUT OF RANGE REFERENCE UNITS LAB L501.6710 0.0-3.0 mg/L High 27.80 C-REACTIVE PROT Result Comment: C-Reactive Protein (CRP) provides useful information for the diagnosis, therapy and monitoring of inflammatory processes and associated diseases. For the evaluation of Relative Risk for Cardiovascular Disease, a High Sensitivity CRP (HSCRP) should be ordered. Performed By: #### L500.4050, L501.6710 #### [facility] [address] [place], [address] BEDSIDE GLUCOSE Collected: 09/01/2017 Status: F Source: [place] 5:30 PM [facility] REPOSITORY TYPE CODE TESTS RESULT OUT OF REFERENCE UNITS RANGE LAB L501.080 70-110 mg/dL High BEDSIDE GLU 313 Result Comment: MANAGEMENT OF PATIENT CARE PER NURSING PROTOCOL Performed By: #### L501.080 #### [facility] Point of Care [address] [facility]. [place], [place] [address] Observed: 09/01/2017 Status: F Source: [place] CULTURE, DEEP WOUND 1:35 PM [facility] REPOSITORY WRONG ORDERS SENT TO THE LAB-REORDERED DEEP WOUND AND WITH CORRECT SOURCE Gram Stain Gram Stain 4+ Gram positive cocci 2+ Gram negative rods 1+ Gram positive rods Wound Culture ORGANISM 1: Providencia stuartii Amount Growth 3+ ORGANISM 2: Morganella morganii sp morgani Amount Growth 3+ ORGANISM 3: Enterococcus spp. Amount Growth 3+ ORGANISM 4: Proteus mirabilis Amount Growth 3+ Providencia stuartii: REACTION Ampicillin $ 16 R Ampicillin/Sulbactam $ 16 I Cefazolin $ >=64 R Cefepime $ <=1 S Ceftriaxone $ <=1 S Ciprofloxacin $ >=4 R Gentamicin $ >=16 R Levofloxacin $ >=8 R Piperacillin/Tazobactam $$ <=4 S Tobramycin $ >=16 R Trimethoprim/Sulfametho $ 40 S (NF) indicates non-formulary drug at [facility]. Approval by Infectious Disease Specialist required before non-formulary drugs may be ordered and/or dispensed. Morganella morganii sp morgani: REACTION Amoxacillin/Clavulanic Acid $ >=32 R Ampicillin $ >=32 R Ampicillin/Sulbactam $ >=32 R Cefazolin $ >=64 R Cefepime $ <=1 S Ceftriaxone $ <=1 S Ciprofloxacin $ 0.5 S Ertapenim $$$ <=0.5 S Gentamicin $ <=1 S Levofloxacin $ 0.25 S Piperacillin/Tazobactam $$ <=4 S Tobramycin $ <=1 S Trimethoprim/Sulfametho $ <=20 S (NF) indicates non-formulary drug at [facility]. Approval by Infectious Disease Specialist required before non-formulary drugs may be ordered and/or dispensed. Enterococcus spp.: REACTION Ampicillin $ 4 R Benzylpenicillin NF 16 R Ciprofloxacin $ 1 S Gentamicin SYN-S S Levofloxacin $ 2 S Tigecycline $$$$ <=0.12 S Streptomycin $ SYN-S S Vancomycin $ <=0.5 S (NF) indicates non-formulary drug at [facility]. Approval by Infectious Disease Specialist required before non-formulary drugs may be ordered and/or dispensed. * CLSI guidelines does not recommend testing of cephalosporins. This interpretation is deduced from Beta-lactam/penicillin results. Proteus mirabilis: REACTION Amoxacillin/Clavulanic Acid $ <=2 S Ampicillin $ <=2 S Ampicillin/Sulbactam $ <=2 S Cefazolin $ <=4 S Cefepime $ <=1 S Ceftriaxone $ <=1 S Ciprofloxacin $ >=4 R Ertapenim $$$ <=0.5 S Gentamicin $ <=1 S Levofloxacin $ >=8 R Piperacillin/Tazobactam $$ <=4 S Tobramycin $ <=1 S Trimethoprim/Sulfametho $ <=20 S (NF) indicates non-formulary drug at [facility]. Approval by Infectious Disease Specialist required before non-formulary drugs may be ordered and/or dispensed. Cult, Anaerobic Studies have confirmed that Anaerobic Gram Positive Cocci are routinely susceptible to: Penicillin/Ampicillin, Ampicillin/Sulbactam, Piperacillin/Tazobactam, Cefoxatin, Ertapenem, Imipenem, Meropenem and Metronidazole and vary in resistance to: Clindamycin and Moxifloxacin. ORGANISM 1: Anaerobic cocci Performed By: #### M100.1500 #### [facility] [place], [address] Observed: 09/01/2017 Status: F Source: [place] CULTURE, DEEP [facility] ORIGINAL ORDER INCORRECT-4 SWABS/TWO ORDERS Comments: right heel and right toes Gram Stain Gram Stain 3+ Gram positive cocci 1+ Gram negative rods Wound Culture #3 PLEASE REFER TO M5928 FOR ADDITIONAL SENSITIVITIES #4 PROBABLE PROVIDENCIA STUARTII; PLEASE REFER TO M5928 FOR SENITIVITIES If further studies are desired, please contact the Microbiology Laboratory within 48 hours. ORGANISM 1: Morganella morganii sp morgani Amount Growth 2+ ORGANISM 2: Proteus mirabilis Amount Growth 2+ ORGANISM 3: Enterococcus spp. Amount Growth 3+ ORGANISM 4: Gram negative chip Amount Growth 2+ Morganella morganii sp morgani: REACTION Amoxacillin/Clavulanic Acid $ >=32 R Ampicillin $ >=32 R Ampicillin/Sulbactam $ >=32 R Cefazolin $ >=64 R Cefepime $ <=1 S Ceftriaxone $ <=1 S Ciprofloxacin $ <=0.25 S Ertapenim $$$ <=0.5 S Gentamicin $ <=1 S Levofloxacin $ 0.25 S Piperacillin/Tazobactam $$ <=4 S Tobramycin $ <=1 S Trimethoprim/Sulfametho $ <=20 S (NF) indicates non-formulary drug at [facility]. Approval by Infectious Disease Specialist required before non-formulary drugs may be ordered and/or dispensed. Proteus mirabilis: REACTION Amoxacillin/Clavulanic Acid $ <=2 S Ampicillin $ <=2 S Ampicillin/Sulbactam $ <=2 S Cefazolin $ <=4 S Cefepime $ <=1 S Ceftriaxone $ <=1 S Ciprofloxacin $ >=4 R Ertapenim $$$ <=0.5 S Gentamicin $ <=1 S Levofloxacin $ >=8 R Piperacillin/Tazobactam $$ <=4 S Tobramycin $ <=1 S Trimethoprim/Sulfametho $ <=20 S (NF) indicates non-formulary drug at [facility]. Approval by Infectious Disease Specialist required before non-formulary drugs may be ordered and/or dispensed. Enterococcus spp.: REACTION Ampicillin $ 16 R Ciprofloxacin $ 1 S Levofloxacin $ 4 I Tigecycline $$$$ <=0.12 S Vancomycin $ 1 S (NF) indicates non-formulary drug at [facility]. Approval by Infectious Disease Specialist required before non-formulary drugs may be ordered and/or dispensed. * CLSI guidelines does not recommend testing of cephalosporins. This interpretation is deduced from Beta-lactam/penicillin results. Cult, Anaerobic No anaerobic bacteria isolated. Performed By: #### M100.1500 #### [facility] [address] [place], [address] RE-EVALUTION OT Observed: 08/04/2017 Status: F Source: [place] 4:38 PM [facility] REPOSITORY [facility] [address] [place], [place] [address] Fax REEVALUATION / MEDICARE RECERTIFICATION OCCUPATIONAL THERAPY MR#: [id number] Acct: [id number] Name: DEL BARRIOS Rep #: [id number] : 1960 57 From: Meera Martinez OTR/L, CHT Referring DrVj: Rachele Lux DPTrupti Status: REG RCR Insurance: [employer] Eval Date: MEDICAID Rachele Lux DPM, It has been my pleasure to treat DEL BARRIOS over the last 1 visits for lymphedema. Please see the progress note below for an update on the occupational therapy plan of care! Objective/Function: Pt demo a need for skilled theapy services to measure pt for custom compression garments for BLE. Today pt was measured for the custom compression garments- will send order to [facility] a DME supplier to order. Once pt recives the compression hose he is to return to ensure compression garment fits well and does not need adj. made. pt left LE is wounds are healing and would anticipate pt to be able to use compression sock on left LE first. right LE more wounds this visit and needs further wound care- will measuer for right LE again in 2-3 weeks to ensure proper use of custom garment. Wound center nurses will call and let therapist know progress of wounds and edema on right LE. Plan Frequency: Monthly Duration: 3 Months Visits in this POC: 3-4 visits Goals - Goals Demonstrate adequate knowledge skin care/prec by 2nd week: Yes Select approp compression garment w/donning/care/wear by d/c: Yes Voice need to replace compression garment every 4-6mo by dc: Yes Goal:: pt will demo the ability to perform skin checks daily to identify new blisters or sores Anticipated Interventions Anticipated Interventions: Education re Diagnosis, Manual Lymph Drainage, Education re Life-long lymphedema Management, Education re Correct Donning Tech,Care AND Wearing Sched Comp Garments, Caregiver Training Please do not hesitate to contact me at [phone] by phone or if you have questions or concerns regarding this new plan of care! Sincerely, Meera Martinez, OTR/L, CHT <Electronically signed by Meera Martinez OTIker/Fred CHT> 08/04/17 1637 CC: Rachele Lux DPM; OUT OF TOWN DOCTOR MK Signed For Medicare only, by signing this I certify the plan of care. Physicians Signature Date OFFICE VISIT (INTERNAL Observed: 08/03/2017 Status: UNK Source: [facility]) 8:12 AM HOSPITALS REPOSITORY Chief Complaint here for dm followup History of Present Illness pod. dr. lux rudy eye dr. andrews lef t stump still drains so cant wear prosthetic leg pod follows r. foot no fver no chest pains eats ok tries not to snack no hypos hgm most 200-300 agent u500 pen 150/100/100 hgm reviewed , rarely is in 100s gets food thru a meals on wheels type program Review of Systems Constitutional: no fever, no chills and not feeling poorly. ENT: no sore throat and no hoarseness. Cardiovascular: lower extremity edema, but no chest pain. Respiratory: no cough. Gastrointestinal: no abdominal pain and no nausea. Genitourinary: no dysuria. Musculoskeletal: limb pain and limb swelling. Integumentary: skin wound. Neurological: no headache and no dizziness. Active Problems Diabetes mellitus type 2, uncontrolled (250.02) (E11.65) HTN (hypertension) (401.9) (I10) Low testosterone (259.9) (E34.9) Social History Former smoker (V15.82) (Z87.891) quit smoking in august 2013 No alcohol use Single Allergies No Known Drug Allergies Recorded By: Diana Pond; 07/06/2013 9:31:07 AM Current Meds Accu-Chek Loretta Plus In Vitro Strip; USE 4 TIMES A DAY; Therapy: 05Nov2014 to (Last Rx:08Mar2017) Requested for: 08Mar2017 Ordered Rx By: Sergo Victor; Dispense: 0 Days ; #:4 X 100 Strip Box; Refill: 3;For: Diabetes mellitus type 2, uncontrolled; SHASHA = N; Verified Transmission to [facility] [address] [place] [address]; Msg to Pharma cy: dx e 11.65 on insulin; Last Updated By: Via [employer]; 03/08/2017 1:56:10 PM Accu-Chek Loretta Plus w/Device Kit; USE DIRECTED; Therapy: 05Nov2014 to (Last Rx:05Nov2014) Requested for: 05Nov2014 Ordered Rx By: Sergo Victor; Dispense: 0 Days ; #:1 Kit; Refill: 0;For: Diabetes mellitus type 2, uncontrolled; SHASHA = N; Verified Transmission to [facility] [address]; Msg to Pharmacy: dx 250.02 on insulin Accu-Chek Multiclix Lancets Miscellaneous; Uses 4 daily; Therapy: 30Mar2013 to (Last Rx:08Mar2017) Requested for: 08Mar2017 Ordered Rx By: Sergo Victor; Dispense: 0 Days ; #:4 X 102 Miscellaneous Box; Refill: 3;For: Diabetes mellitus type 2, uncontrolled; SHASHA = N; Verified Transmission to [facility] [employer] [place]; Last Updated By: Via [employer]; 03/08/2017 1:56:41 PM Accu-Chek Softclix Lancets Miscellaneous; use 4 times a day to check sugar; Therapy: 18Jan2017 to (Last Rx:[id number]) Requested for: 18Jan2017 Ordered Rx By: Sergo Victor; Dispense: 0 Days ; #:4 X 100 Miscellaneous Box; Refill: 3;For: Diabetes mellitus type 2, uncontrolled; SHASHA = N; Verified Transmission to [address]; Last Updated By: Miguelangel Meade[employer]; 01/18/2017 7:03:11 PM Atorvastatin Calcium 10 MG Oral Tablet; Take 1 tablet daily; Therapy: 95Arz8394 to (Last Rx:08Mar2017) Requested for: 08Mar2017 Ordered Rx By: Sergo Victor; Dispense: 0 Days ; #:90 Tablet; Refill: 3;For: Diabetes mellitus type 2, uncontrolled; SHASHA = N; Verified Transmission to [address]; Last Updated By: Edenilson Hua; 03/08/2017 3:18:08 PM BD Pen Needle Mini U/F 31G X 5 MM Miscellaneous; use 3 daily; Therapy: 95Wge3081 to (Last Rx:73Gzt5694) Requested for: 20Vwz9526 Ordered Rx By: Sergo Victor; Dispense: 0 Days ; #:3 X 100 Miscellaneous Box; Refill: 3;For: Diabetes mellitus type 2, uncontrolled; SHASHA = N; Verified Transmission to [address]; Last Updated By: Miguelangel [employer]; 01/18/2017 11:36:07 AM Gabapentin 600 MG Oral Tablet; Take 1 tablet daily; Therapy: 08Mar2017 to (Evaluate:04Sep2017) Requested for: 08Mar2017; Last Rx:08Mar2017 Ordered Rx By: Sergo Victor; Dispense: 90 Days ; #:90 Tablet; Refill: 1;For: Diabetes mellitus type 2, uncontrolled; SHASHA = N; Verified Transmission to [address]; Last Updated By: Edenilson Franklin; 03/08/2017 2:29:22 PM Gabapentin 800 MG Oral Tablet; TAKE 2 TABLET Bedtime; Therapy: 38Fda5482 to (Evaluate:04Sep2017) Requested for: 08Mar2017; Last Rx:08Mar2017 Ordered Rx By: Sergo Victor; Dispense: 90 Days ; #:180 Tablet; Refill: 1;For: Diabetes mellitus type 2, uncontrolled; SHASHA = N; Verified Transmission to [address]; Last Updated By: Edenilson Garduno; 03/08/2017 1:58:02 PM HumuLIN R U-500 KwikPen 500 UNIT/ML Subcutaneous Solution Pen-injector; 145 units am, 95 units lunch,80 units pre-evening meal; Therapy: 88Wiw1580 to (Last Rx:06May2017) Requested for: 06May2017 Ordered Rx By: Sergo Victor; Dispense: 0 Days ; #:11 X 3 ML Pen (2 Pens); Refill: 3;For: Diabetes mellitus type 2, uncontrolled; SHASHA = N; Verified Transmission to [address]; Last Upd ated By: Edenilson Meade; 05/06/2017 4:08:21 PM Eliquis 2.5 MG Oral Tablet; Take 1 tablet twice daily; Therapy: 07Mar2015 to (Evaluate:17Gix8266) Requested for: 90Vgj6909; Last Rx:18Jan2017 Ordered Rx By: Sergo Victor; Dispense: 30 Days ; #:60 Tablet; Refill: 5;For: Health Maintenance; SHASHA = N; Verified Transmission to [address]; Last Updated By: Miguelangel [employer]; 01/18/2017 11:34:30 AM Omeprazole 40 MG Oral Capsule Delayed Release; TAKE 1 CAPSULE Daily; Therapy: 29Uuw6771 to (Evaluate:05Nxc3627) Requested for: 08Mar2017; Last Rx:08Mar2017 Ordered Rx By: Sergo Victor; Dispense: 90 Days ; #:90 Capsule Delayed Release; Refill: 3;For: Health Maintenance; SHASHA = N; Verified Transmission to [address]; Last Updated By: Maurizio Meade[employer] ([employer]); 03/08/2017 3:16:41 PM Vitamin D (Ergocalciferol) 88930 UNIT Oral Capsule; TAKE ONE CAPSULE BY MOUTH EVERY WEEK; Therapy: 07Apr2015 to (Evaluate:62Bon5813) Requested for: 19Njx8869; Last Rx:61Vfh0795 Ordered Rx By: Sergo Victor; Dispense: 84 Days ; #:12 Capsule; Refill: 1;For: Health Maintenance; SHASHA = N; Verified Transmission to [address]; Last Updated By: Via [employer]; 2017 2:45:12 PM Bystolic 10 MG Oral Tablet; Take 1 tablet daily; Therapy: 24Tau6774 to (Evaluate:41Rmi7742) Requested for: 08Mar2017; Last Rx:08Mar2017 Ordered Rx By: Sergo Victor; Dispense: 90 Days ; #:90 Tablet; Refill: 3;For: HTN (hypertension); SHASHA = N; Verified Transmission to [address]; Last Updated By: Via [employer]; 03/08/2017 3:16:44 PM Losartan Potassium 50 MG Oral Tablet; TAKE 1 TABLET DAILY; Therapy: 95Prn0880 to (Evaluate:14Lnj1271) Requested for: 08Mar2017; Last Rx:08Mar2017 Ordered Rx By: Srego Victor; Dispense: 90 Days ; #:90 Tablet; Refill: 3;For: HTN (hypertension); SHASHA = N; Verified Transmission to [address]; Last Updated By: Via [employer]; 03/08/2017 3:16:43 PM Brimonidine Tartrate 0.2 % Ophthalmic Solution; Therapy: 25Nov2014 to Recorded Dispense: 30 Days ; #:5 SOLN; Refill: 0; SHASHA = N; Record; Last Updated By: Sergo Victor; 05/28/2015 10:31:19 AM Dorzolamide HCl-Timolol Mal 22.3-6.8 MG/ML Ophthalmic Solution; Therapy: 22Cxn1600 to Recorded Rx By: DELONTE,; Dispense: 25 Days ; #:10 SOLN; Refill: 0; SHASHA = N; Record; Last Updated By: Diana Pond; 01/26/2014 10:40:57 AM Doxycycline Monohydrate 100 MG Oral Capsule; TAKE 1 CAPSULE TWICE A DAY; Therapy: 11Sep2016 to Recorded Rx By: NAVI; Dispense: 1 Days ; #:2 CAPS; Refill: 0; SHASHA = N; Record; Last Updated By: Sergo Victor; 05/06/2017 3:37:21 PM Fluticasone Propionate 50 MCG/ACT Nasal Suspension; Therapy: 25Nov2014 to Recorded Dispense: 30 Days ; #:16 SUSP; Refill: 0; SHASHA = N; Record; Last Updated By: Sergo Victor; 08/02/2017 9:59:04 AM Latanoprost 0.005 % Ophthalmic Solution; Therapy: 18Jun2015 to Recorded Dispense: 25 Days ; #:2 SOLN; Refill: 0; SHASHA = N; Record; Last Updated By: Diana Pond; 03/26/2016 3:55:28 PM Vitals Vital Signs Recorded: 26Bgj7143 09:41AM Umvayghoxuz83.9 F, Temporal Heart Rate78 Fuaheilt189, Sitting Ssmhvtbtw45, Sitting O2 Ozgefkaeha13, RA Physical Exam in a wheel chair r. leg wrapped in unna boot, not undressed left leg stump wrapped co r rrr ches t clear central fat distribution mood euthymic Diagnoses/Problems Diabetes mellitus type 2, uncontrolled (250.02) (E11.65) * Orders Diabetes mellitus type 2, uncontrolled Start: NovoLOG FlexPen 100 UNIT/ML Subcutaneous Solution Pen-injector; INJECT 60 UNIT Daily Rx By: Sergo Victor; Dispense: 0 Days ; #:2 X 3 ML Pen (5 Pens); Refill: 5;For: Diabetes mellitus type 2, uncontrolled; SHASHA = N; Verified Transmission to [email or web address]; Last Updated By: Lucy Meade; 08/02/2017 10:08:38 AM Unlinked Stop: Fluticasone Propionate 50 MCG/ACT Nasal Suspension Dispense: 30 Days ; #:16 SUSP; Refill: 0; SHASHA = N; Record; Last Updated By: Sergo Victor; 08/02/2017 9:59:04 AM Basic Metabolic Panel; Source:Blood (D); Status:Resulted - Requires Verification; Done: 07Jun2141 12:00AM Due:30Hgs2633;Ordered; For:Diabetes mellitus type 2, uncontrolled; Ordered By:Sergo Victor; Hemoglobin A1C; Source:Blood (BLD); Status:Resulted - Requires Verification; Done: 07Jun2141 12:00AM Due:05Bgw9342;Ordered; For:Diabetes mellitus type 2, uncontrolled; Ordered By:Sergo Victor; Lipid Panel; Source:Blood (BLD); Status:Resulted - Requires Verification; Done: 07Jun2141 12:00AM Due:[id number];Ordered; For:Diabetes mellitus type 2, uncontrolled; Ordered By:Sergo Victor; Provider Impressions dm c poor control striking insulin resistance sedentary low muscle mass chronic wound Patient Discussion/Summary see insulin sheet followup 2 months add meal novolog scale lab. End of Encounter Meds Accu-Chek Loretta Plus In Vitro Strip; USE 4 TIMES A DAY; Therapy: 05Nov2014 to (Last Rx:08Mar2017) Requested for: 08Mar2017 Ordered Accu-Chek Loretta Plus w/Device Kit; USE DIRECTED; Therapy: 05Nov2014 to (Last Rx:05Nov2014) Requested for: 05Nov2014 Ordered Accu-Chek Multiclix Lancets Miscellaneous; Uses 4 daily; Therapy: 30Mar2013 to (Last Rx:08Mar2017) Requested for: 08Mar2017 Ordered Accu-Chek Softclix Lancets Miscellaneous; use 4 times a day to check sugar; Therapy: 42Oqc9870 to (Last Rx:90Kun6086) Requested for: 14Pzg3760 Ordered Atorvastatin Calcium 10 MG Oral Tablet; Take 1 tablet daily; Therapy: 13Agj6917 to (Last Rx:08Mar2017) Requested for: 08Mar2017 Ordered BD Pen Needle Mini U/F 31G X 5 MM Miscellaneous; use 3 daily; Therapy: 52Vgb6679 to (Last Rx:71Ids6318) Requested for: 53Fhb9756 Ordered Brimonidine Tartrate 0.2 % Ophthalmic Solution; Therapy: 25Nov2014 to Recorded Bystolic 10 MG Oral Tablet; Take 1 tablet daily; Therapy: 27Mzh5987 to (Evaluate:21Zis6330) Requested for: 08Mar2017; Last Rx:08Mar2017 Ordered Dorzolamide HCl-Timolol Mal 22.3-6.8 MG/ML Ophthalmic Solution; Therapy: 43Uwk2483 to Recorded Doxycycline Monohydrate 100 MG Oral Capsule; TAKE 1 CAPSULE TWICE A DAY; Therapy: 11Sep2016 to Recorded Eliquis 2.5 MG Oral Tablet; Take 1 tablet twice daily; Therapy: 07Mar2015 to (Evaluate:44Csk8080) Requested for: 30Umn3447; Last Rx:10Hwf3757 Ordered Gabapentin 600 MG Oral Tablet; Take 1 tablet daily; Therapy: 08Mar2017 to (Evaluate:04Sep2017) Requested for: 08Mar2017; Last Rx:08Mar2017 Ordered Gabapentin 800 MG Oral Tablet; TAKE 2 TABLET Bedtime; Therapy: 72Dzh6359 to (Evaluate:04Sep2017) Requested for: 08Mar2017; Last Rx:08Mar2017 Ordered HumuLIN R U-500 KwikPen 500 UNIT/ML Subcutaneous Solution Pen-injector; 145 units am, 95 units lunch,80 units pre-evening meal; Therapy: 48Wol9919 to (Last Rx:06May2017) Requested for: 06May2017 Ordered Latanoprost 0.005 % Ophthalmic Solution; Therapy: 18Jun2015 to Recorded Losartan Potassium 50 MG Oral Tablet; TAKE 1 TABLET DAILY; Therapy: 25Vty8326 to (Evaluate:14Iej5917) Requested for: 08Mar2017; Last Rx:08Mar2017 Ordered NovoLOG FlexPen 100 UNIT/ML Subcutaneous Solution Pen-injector; INJECT 60 UNIT Daily; Therapy: 13Wdm3481 to (Last Rx:93Cvh3221) Requested for: 04Ums4138 Ordered Omeprazole 40 MG Oral Capsule Delayed Release; TAKE 1 CAPSULE Daily; Therapy: 14His5810 to (Evaluate:73Lya5404) Requested for: 08Mar2017; Last Rx:08Mar2017 Ordered Vitamin D (Ergocalciferol) 47530 UNIT Oral Capsule; TAKE ONE CAPSULE BY MOUTH EVERY WEEK; Therapy: 07Apr2015 to (Evaluate:18Nov2017) Requested for: 13Usf0022; Last Rx:11Fiw6258 Ordered Signatures Electronically signed by : Sergo Victor MD; Aug 03 2017 8:12AM EST (Author) BASIC METABOLIC PANEL Collected: 08/02/2017 Status: F Source: [place] 10:30 AM [facility] REPOSITORY Order Comment: PATIENT IS FASTING TYPE CODE TESTS RESULT OUT OF RANGE REFERENCE UNITS LAB GLU(LOINC) 74 - 99 mg/dL High GLUCOSE 372 LAB SOD(LOINC) 136 - 145 mmol/L Low SODIUM 135 LAB K(LOINC) 3.5 - 5.3 mmol/L POTASSIUM 4.8 LAB CHLOR(LOIN 98 - 107 mmol/L C) CHLORIDE 101 LAB BIC(LOINC) 21 - 32 mmol/L BICARBONATE 25 LAB ANGAP(LOIN 10 - 20 mmol/L C) ANION GAP 14 LAB UREA(LOINC 6 - 23 mg/dL ) High UREA NITROGEN 48 LAB CREA(LOINC 0.50 - 1.30 mg/dL ) High CREATININE 1.82 LAB GFRFN(LOIN >60 mL/min/1.7 C) 3m2 GFR-NON Abnormal AM. 38 LAB GFRAA(LOIN >60 mL/min/1.7 C) 3m2 GFR- Abnormal AM. 46 Result Comment: CALCULATIONS OF ESTIMATED GFR ARE PERFORMED USING THE MDRD STUDY EQUATION FOR THE IDMS-TRACEABLE CREATININE METHODS. CLIN CHEM 2007;53:766-72 LAB CA(LOINC) 8.6 - 10.6 mg/dL CALCIUM 8.8 Performed By: #### BMP #### [facility] [address] [place] [address] LIPID PANEL (CORONARY Collected: 08/02/2017 Status: F Source: [facility]) 10:30 AM [facility]OSPITALS REPOSITORY Order Comment: PATIENT IS FASTING TYPE CODE TESTS RESULT OUT OF REFERENCE UNITS RANGE LAB CHOL(LOINC 0 - 199 mg/dL ) CHOLESTEROL 116 Result Comment: . AGE DESIRABLE BORDERLINE HIGH HIGH 0-19 Y 0 - 169 170 - 199 >/= 200 20-24 Y 0 - 189 190 - 224 >/= 225 >24 Y 0 - 199 200 - 239 >/= 240 All ranges are based on fasting samples. Specific therapeutic targets will vary based on patient-specific cardiac risk. . Pediatric guidelines reference:Pediatrics 2011, 128(S5). Adult guidelines reference: NCEP ATPIII Guidelines, ANDRE 2001, 258:2486-97 . Venipuncture immediately after or during the administration of Metamizole may lead to falsely low results. Testing should be performed immediately prior to Metamizole dosing. LAB HDL(LOINC) mg/dL Abnormal HDL-CHOLESTEROL 36.1 Result Comment: . AGE VERY LOW LOW NORMAL HIGH 0-19 Y < 35 < 40 40-45 ---- 20-24 Y ---- < 40 >45 ---- >24 Y ---- < 40 40-60 >60 . LAB CHHDL(LOINC) CHOLESTEROL/HDL RATIO 3.2 Result Comment: REF VALUES DESIRABLE < 3.4 HIGH RISK > 5.0 LAB LDLF(LOINC) 0 - 99 mg/dL LDL 47 Result Comment: . NEAR BORD AGE DESIRABLE OPTIMAL HIGH HIGH VERY HIGH 0-19 Y 0 - 109 --- 110-129 >/= 130 ---- 20-24 Y 0 - 119 --- 120-159 >/= 160 ---- >24 Y 0 - 99 100-129 130-159 160-189 >/=190 . LAB VLDL(LOINC) 0 - 40 mg/dL VLDL 33 LAB TRIG(LOINC) 0 - 149 mg/dL TRIGLYCERIDES High 164 Result Comment: . AGE DESIRABLE BORDERLINE HIGH HIGH VERY HIGH 0 D-90 D 19 - 174 ---- ---- ---- 91 D- 9 Y 0 - 74 75 - 99 >/= 100 ---- 10-19 Y 0 - 89 90 - 129 >/= 130 ---- 20-24 Y 0 - 114 115 - 149 >/= 150 ---- >24 Y 0 - 149 150 - 199 200- 499 >/= 500 . Venipuncture immediately after or during the administration of Metamizole may lead to falsely low results. Testing should be performed immediately prior to Metamizole dosing. Performed By: #### LIPID #### [facility] [address] [place] [address] HEMOGLOBIN A1C Collected: 08/02/2017 Status: F Source: [place] 10:30 AM [facility] REPOSITORY Order Comment: PATIENT IS FASTING TYPE CODE TESTS RESULT OUT OF RANGE REFERENCE UNITS LAB HBA1C(LOINC % ) HGB A1C 9.1 Result Comment: Diagnosis of Diabetes-Adults Non-Diabetic: < or = 5.6% Increased risk for developing diabetes: 5.7-6.4% Diagnostic of diabetes: > or = 6.5% . Monitoring of Diabetes Age (y) Therapeutic Goal (%) Adults: >18 <7.0 Pediatrics: 13-18 <7.5 7-12 <8.0 0- 6 7.5-8.5 [place] [employer]. Diabetes Care 33(S1), Jun 2009. LAB ESAVG(LOINC) MG/DL EST.AVG.GLUCOSE 214 Performed By: #### HBA1E #### [facility] [address] [place] [address] LOWER EXT/NO JT/W/O Observed: 07/29/2017 Status: F Source: [place] 12:33 PM [facility] REPOSITORY [facility] [address] [place] [address] Lower Ext/No Jt/w/o MR#: [id number] Acct: [id number] Name: DEL BARRIOS Rep #: [id number] : 1960 M 57 From: Reinaldo Azevedo MD PCP: OUT OF TOWN DOCTOR Status: REG CLI Study: Lower Ext/No Jt/w/o Date of Exam: 07/29/17 Exam# [id number] Ordering Dr: Rachele Lux DPTrupti STUDY: MRI RIGHT REARFOOT WITHOUT CONTRAST REASON FOR EXAM: Open wound of the heel, evaluate for osteomyelitis. TECHNIQUE: Standardized fat and water weighted pulse sequences were obtained in all 3 orthogonal planes. COMPARISON: Radiographs 07/21/2017. FINDINGS: There is edema in the subcutis adipose space and a defect of the medial plantar aspect of the heel. There is no focal fluid collection to indicate soft tissue abscess. Normal posterior tibialis tendon. Normal flexor digitorum longus tendon. Normal flexor hallucis longus tendon. Normal peroneus longus and brevis tendons. Normal tibialis anterior tendon. Normal extensor hallucis longus tendon. Normal extensor digitorum longus tendons. There is thickening of the distal Achilles tendon consistent with tendinosis and a small low-grade partial tear of the medial surface of the Achilles tendon 1.7 cm proximal to the calcaneal insertion (inversion recovery sagittal image 21; T2 axial image 23). Normal plantar fascia. Normal plantar calcaneal tubercles. There is atrophy of the intrinsic muscles of the rearfoot with fat replacement. Normal distal tibiofibular syndesmotic ligamentous complex. Normal lateral ligamentous complex. There is an ossicle adjacent to the talar insertion of the anterior talofibular ligament. Normal subtalar ligaments and sinus tarsi. Normal deltoid ligamentous complexes. Normal plantar calcaneonavicular (spring) ligament. Normal tibiotalar articulation. Normal talar dome. Normal subtalar articulations. Normal talonavicular articulation. Normal calcaneocuboid articulation. Normal navicular-cuneiform articulations. There is no bone edema of the calcaneus to indicate osteomyelitis. There is an os trigonum. There is an amputation of the fifth digit at the level of the proximal metatarsal. MRI/Lower Ext/No Jt/w/o IMPRESSION: Edema in the subcutis adipose space without demonstrated osteomyelitis or soft tissue abscess. Distal Achilles tendinosis with a small low-grade partial tear of the Achilles tendon. Atrophy of the intrinsic muscles of the foot consistent with peripheral neuropathy. Electronically Signed: Reinaldo Azevedo MD at 14:39 EST Tel , Service support , CC: Rachele Lux DPM; OUT OF TOWN DOCTOR Overlock Operator: Signed CBC-COMPLETE BLOOD CNT Collected: 07/21/2017 Status: F Source: [place] NO DIFF 12:09 PM [facility] REPOSITORY TYPE CODE TESTS RESULT OUT OF RANGE REFERENCE UNITS LAB L100.1000 4.4-11.0 K/mm3 Normal WBC 8.7 LAB L100.1200 4.6-6.2 M/mm3 Low RBC 3.55 LAB L100.1300 13.0-16.5 g/dl Low HGB 10.1 LAB L100.1400 40-54 % Low HCT 31.5 LAB L100.1500 80-94 fL Normal MCV 88.7 LAB L100.1600 27.0-32.0 pg Normal MCH 28.5 LAB L100.1700 32-36 g/gl Normal MCHC 32.1 LAB L100.1810 11.6-14.6 % High RDW CV 14.8 LAB L100.1820 35.1-43.9 fl High RDW SD 46.5 LAB L100.1900 150-450 K/mm3 Normal PLT 193 LAB L100.2000 6.2-12.0 fl Normal MPV 10.6 Performed By: #### L100.0500, L101.9900 #### [facility] [address] [place], [address] ERYTHROCYTE SED RATE Collected: 07/21/2017 Status: F Source: [place] 12:09 PM [facility] REPOSITORY TYPE CODE TESTS RESULT OUT OF RANGE REFERENCE UNITS LAB L102.0000 0-20 mm/hr High SED RATE 57 Performed By: #### L100.0500, L101.9900 #### [facility] [address] [place], [address] BASIC METABOLIC Collected: 07/21/2017 Status: F Source: [place] PROFILE (BMP) 12:09 PM [facility] REPOSITORY TYPE CODE TESTS RESULT OUT OF RANGE REFERENCE UNITS LAB L501.0100 74-106 mg/dL High GLU 349 Result Comment: Glucose result greater than or equal to 200 mg/dL suggests DIABETES MELLITUS per A.D.A. criteria. Please note revised GLUCOSE reference range effective 2017. LAB L501.1000 7-18 mg/dL High BUN 48 LAB L501.1100 0.70-1.30 mg/dL High CREAT,SERUM 2.11 Result Comment: The validity of the calculated GFR AND GFRAA in patients over 70 years has not been determined. Clinical correlation is essential. LAB L501.1110 >60 mL/min Low EST GFR 34 Result Comment: Non- GFR Calc LAB L501.1115 >60 mL/min Low EST GFR - AA 42 Result Comment: GFR Calc LAB L501.1300 10-20 RATIO High BUN/CRE 22.7 LAB L501.2200 8.5-10.1 mg/dL CA Normal 8.5 LAB L501.5300 136-145 mmol/L NA Normal 136 LAB L501.5600 3.5-5.1 mmol/L K Normal 5.1 LAB L501.5900 98-107 mmol/L CL Normal 100 LAB L501.6100 21.0-32.0 mmol/L Normal CO2 29.0 LAB L501.6200 5-15 Normal GAP 7 Performed By: #### L500.2500, L501.6710 #### [facility] [address] [place], [address] CRP Collected: 07/21/2017 Status: F Source: [place] 12:09 PM [facility] REPOSITORY TYPE CODE TESTS RESULT OUT OF RANGE REFERENCE UNITS LAB L501.6710 0.0-3.0 mg/L High 38.00 C-REACTIVE PROT Result Comment: C-Reactive Protein (CRP) provides useful information for the diagnosis, therapy and monitoring of inflammatory processes and associated diseases. For the evaluation of Relative Risk for Cardiovascular Disease, a High Sensitivity CRP (HSCRP) should be ordered. Performed By: #### L500.2500, L501.6710 #### [facility] [address] [place], [address] FOOT MIN 3 VIEWS Observed: 07/21/2017 Status: F Source: [place] 11:38 AM [facility] REPOSITORY [facility] [address] [place] [address] [place] [address] Foot min 3 Views MR#: [id number] Acct: [id number] Name: DEL BARRIOS Rep #: [id number] : 1960 M 57 From: Kevin Garcia MD PCP: OUT OF TOWN DOCTOR Status: REG RCR Study: Foot min 3 Views Date of Exam: 07/21/17 Exam# [id number] Ordering Dr: Rachele Lux DPM STUDY: X-RAY - RIGHT FOOT CLINICAL: Male, 57 years old. Infection, wound care follow-up TECHNIQUE: 3 view(s) of the foot. COMPARISON: Prior study of January 08, 2017 FINDINGS: The bones are osteopenic. Normal talus, calcaneus, and tarsal bones. Normal visualized subtalar, talonavicular, calcaneocuboid, tarsal and tarsometatarsal articulations. There is status post amputation changes of the fifth digital ray through the proximal shaft of the fifth metatarsal. There is degenerative arthrosis of the metatarsophalangeal joint of the hallux . Normal tibial and fibular sesamoid bones. Normal interphalangeal joint of the great toe. Normal phalanges of the great toe. There are mild degenerative changes of the second, third, and fourth metatarsophalangeal joints. There is an old healed fracture of the base of the third proximal phalanx. There is marked diffuse soft tissue swelling of the mid to distal foot. There is no evidence of soft tissue gas or radiopaque foreign body. RAD/Foot min 3 Views IMPRESSION: 1. Status post amputation of the fifth digital ray through the proximal shaft of the fifth metatarsal. 2. Generalized osteopenia. 3. Degenerative changes as reported above. 4. Markedly diffuse soft tissue swelling of the mid to distal foot. There is no evidence of soft tissue gas or radiopaque foreign body. 5. There is no radiographic evidence of acute osteomyelitis. Findings are similar to the previous study. Electronically Signed: Kevin Garcia MD at 23:54 EST , Service support , CC: Rachele Lux DPM; OUT OF TOWN DOCTOR Overlock Operator: Signed Observed: 07/21/2017 Status: F Source: [place] ACID FAST BACT 12:00 AM [facility] CULT/SM REPOSITORY AFB Smear[facility]or [facility] ORIGINAL REPORT ON FILE IN LAB CONTAINS ADDITIONAL TEST SITE INFORMATION. Smear, Acid Fast Tissue Grinding Smear: Negative AFB Cult [facility]. ORIGINAL REPORT ON FILE IN LAB CONTAINS ADDITIONAL TEST SITE INFORMATION. Culture, Acid Fast NO ACID-FAST BACILLI ISOLATED AFTER 6 WEEKS. Performed By: #### M300.1000 #### [facility] [address] [place], [place], [address] Observed: 07/21/2017 Status: F Source: [place] 8482 12:00 AM [facility] REPOSITORY Cu,Rseysk7866 TESTING PERFORMED AT [facility]. ORIGINAL REPORT ON FILE IN LAB CONTAINS ADDITIONAL TEST SITE INFORMATION. CUF No yeast or mold isolated after 4 weeks. Performed By: #### M600.2000 #### [facility] [address] [place] [address] [address] [place], [place], [address] OT GENERAL EVALUATION Observed: 07/20/2017 Status: F Source: [place] 9:56 AM [facility] REPOSITORY [facility] [address] [place] [address] Rd[address] [place], [place] [address] Fax REHABILITATION SERVICES INITIAL EVALUATION MR#: [id number] Acct: [id number] Name: DEL BARRIOS Rep #: [id number] : 1960 57 From: Meera Martinez OTR/L, CHT Referring DrVj: Rachele Lux DPM Status: REG RCR Insurance: [employer] Eval Date: MEDICAID Patient's Visit Information DEL BARRIOS is a 57 year old M, referred to Occupational Therapy by Rachele Lux DPM,JFMARIBELL, with a diagnosis of lymphedema. Date of Evaluation: 07/16/17 Occupational Therapist: Meera Martinez, OTR/L, CHT - Subjective Subjective: Pt states he was dx with Lymphedema about a two years ago. He was undergoing wrapping to bilateral LE for one year. pt states he has not been wrapping for about one year and started going to the wound center in [place] in 2016 and started wrapping to LE the end of May. Pt resides in a apt building, pt states he has a home health to find home health aide. pt states he goes every wed. to the wound center for his LE. Pt states he does have a compression pump that he is using 1x a day- states would like for him to use the compression pump at home 2 x aday. - Pain Right LE 0 Pain Intensity Range: 3 Left LE 0 Pain Intensity Range: 3 - Objective Objective/Observation: pt arrives in WC with LE wrapped and no shoe or prosthesis. - Lymphedema (Circumferential Measure) Mid-foot: rigth 34cm left NA Ankle: right 36cm left NA Lower calf: right 37cm left NA Largest calf: right 41cm left 44 Below knee: right 42cm left 42cm Above knee: right 51cm left 52 Lower Exremity Comments: pt reports polyneropathy below knee on left and mid calf down on right LE - Lower Limb Functional Index Lower Extremity Functional Score: 11 - Goals Demonstrate adequate knowledge skin care/prec by 2nd week: Yes Select approp compression garment w/donning/care/wear by d/c: Yes Voice need to replace compression garment every 4-6mo by dc: Yes Goal:: pt will demo the ability to perform skin checks daily to identify new blisters or sores - Rehabilitation General Assessment: DMII with polyneuropathy. Chronic kidney disease. Delayed wound healing. chronic ulcer of right foot with fat layer exposed. Blisters. skin tear of right LE without complication Rehabilitation Potential: Fair - Anticipated Interventions Anticipated Interventions: Education re Diagnosis, Manual Lymph Drainage, Education re Life-long lymphedema Management, Education re Correct Donning Tech,Care AND Wearing Sched Comp Garments, Caregiver Training - Visit Plan Frequency: one visit for measurments General Plan: will measure pt for custom compression hose at the wound center for pt. to ease pts transportation difficulties. Will submit to [facility] for insurance approval for custom compression garments. TEXT: Thank you for the opportunity to evaluate your patient. For Medicare and Medicare HMO plans, please review the plan of care and approve it. It will need to be FAXED BACK to us at [phone] for Medicare purposes. Please let me know if there are questions or concerns regarding this plan of care. Physician Signature: Date: <Electronically signed by Meera VILLA/HARRY WareT> 07/20/17 0956 CC: Rachele Lux DPM; OUT OF TOWN DOCTOR MK Signed For Medicare only, by signing this I certify the plan of care. Physicians Signature Date Observed: 07/15/2017 Status: F Source: [place] CULTURE, DEEP WOUND 11:15 AM [facility] REPOSITORY Comments: DFU RIGHT FOOT METATARSAL MACERATION Gram Stain Gram Stain 1+ White Blood Cells 4+ Gram positive cocci 4+ Gram negative rods 2+ Gram positive rods Wound Culture ORGANISM 1: Klebsiella pneumoniae sp pneum Amount Growth 3+ ORGANISM 2: Proteus mirabilis ORGANISM 3: Morganella morganii sp morgani Klebsiella pneumoniae sp pneum: REACTION Amoxacillin/Clavulanic Acid $ 8 S Ampicillin $ >=32 R Ampicillin/Sulbactam $ >=32 R Cefazolin $ >=64 R Cefepime $ <=1 S Ceftriaxone $ <=1 S Ciprofloxacin $ 0.5 I ESBL - Ertapenim $$$ <=0.5 S Gentamicin $ <=1 S Imipenem *NF <=0.25 S Levofloxacin $ >=8 R Piperacillin/Tazobactam $$ 32 I Tobramycin $ <=1 S Trimethoprim/Sulfametho $ >=320 R (NF) indicates non-formulary drug at [facility]. Approval by Infectious Disease Specialist required before non-formulary drugs may be ordered and/or dispensed. Proteus mirabilis: REACTION Amoxacillin/Clavulanic Acid $ <=2 S Ampicillin $ <=2 S Ampicillin/Sulbactam $ <=2 S Cefazolin $ <=4 S Cefepime $ <=1 S Ceftriaxone $ <=1 S Ciprofloxacin $ <=0.25 S Ertapenim $$$ <=0.5 S Gentamicin $ <=1 S Levofloxacin $ <=0.12 S Piperacillin/Tazobactam $$ <=4 S Tobramycin $ <=1 S Trimethoprim/Sulfametho $ <=20 S (NF) indicates non-formulary drug at [facility]. Approval by Infectious Disease Specialist required before non-formulary drugs may be ordered and/or dispensed. Morganella morganii sp morgani: REACTION Amoxacillin/Clavulanic Acid $ >=32 R Ampicillin $ >=32 R Ampicillin/Sulbactam $ >=32 R Cefazolin $ >=64 R Cefepime $ <=1 S Ceftriaxone $ <=1 S Ciprofloxacin $ <=0.25 S Ertapenim $$$ <=0.5 S Gentamicin $ <=1 S Levofloxacin $ 0.25 S Piperacillin/Tazobactam $$ <=4 S Tobramycin $ <=1 S Trimethoprim/Sulfametho $ <=20 S (NF) indicates non-formulary drug at [facility]. Approval by Infectious Disease Specialist required before non-formulary drugs may be ordered and/or dispensed. Cult, Anaerobic No anaerobic bacteria isolated. Performed By: #### M100.1500 #### [facility] [address] [place], [address] CBC W/DIFF, AUTOMATED Collected: 07/08/2017 Status: F Source: [place] 12:39 PM [facility] REPOSITORY TYPE CODE TESTS RESULT OUT OF RANGE REFERENCE UNITS LAB L100.1000 4.4-11.0 K/mm3 Normal WBC 7.7 LAB L100.1200 4.6-6.2 M/mm3 Low RBC 3.73 LAB L100.1300 13.0-16.5 g/dl Low HGB 10.3 LAB L100.1400 40-54 % Low HCT 33.2 LAB L100.1500 80-94 fL Normal MCV 89.0 LAB L100.1600 27.0-32.0 pg Normal MCH 27.6 LAB L100.1700 32-36 g/gl Low MCHC 31.0 LAB L100.1810 11.6-14.6 % High RDW CV 14.8 LAB L100.1820 35.1-43.9 fl High RDW SD 48.4 LAB L100.1900 150-450 K/mm3 Normal PLT 151 LAB L100.2000 6.2-12.0 fl Normal MPV 10.7 LAB L100.2100 47-70 % High NEUT% 74.5 LAB L100.2200 19-41 % Low LY% 15.7 LAB L100.2300 0-10 % Normal MONO% 6.0 LAB L100.2400 0-5 % Normal EO% 2.9 LAB L100.2500 0-1 % Normal BASO% 0.1 LAB L100.2550 0.0-0.9 % Normal IM GRAN % 0.800 Result Comment: IG% - Immature Granulocytes (promyelocytes, myelocytes and metamyelocytes) > 1% indicates that a LEFT SHIFT is Present. LAB L100.2620 2.0-7.7 X10 3/uL Normal Absolute Neut 5.7 LAB L100.2720 0.83-4.51 X10 3/ul Normal Absolute Lymph 1.21 Performed By: #### L100.0100 #### [facility] [address] [facility] [place], [address] PROTEIN+CREATININE Collected: Status: F Source: [place] HANSEN,URINE 07/08/2017 12:39 PM [facility] REPOSITORY TYPE CODE TESTS RESULT OUT OF RANGE REFERENCE UNITS LAB L501.1200 NO RANGE EST. mg/dL Normal UR CREAT 91.90 LAB L501.1930 <11.9 mg/dL High 228.9 PROTEIN,UR.R AN. LAB L501.1940 0-200 mg/g CRE High PROT:CRE 2491 RATIO Performed By: #### L501.0900 #### [facility] [address] [place], [address] RENAL PROFILE Collected: 07/08/2017 Status: F Source: [place] 12:39 PM [facility] REPOSITORY TYPE CODE TESTS RESULT OUT OF RANGE REFERENCE UNITS LAB L501.0100 70-110 mg/dL High GLU 275 Result Comment: Glucose result greater than or equal to 200 mg/dL suggests DIABETES MELLITUS per A.D.A. criteria. LAB L501.1000 7-18 mg/dL High BUN 36 LAB L501.1100 0.70-1.30 mg/dL High CREAT,SERUM 1.75 Result Comment: The validity of the calculated GFR AND GFRAA in patients over 70 years has not been determined. Clinical correlation is essential. LAB L501.1110 >60 mL/min Low EST GFR 43 Result Comment: Non- GFR Calc LAB L501.1115 >60 mL/min Low EST GFR - AA 52 Result Comment: GFR Calc LAB L501.1300 10-20 RATIO High BUN/CRE 20.6 LAB L501.1800 3.2-5.0 g/dL Low ALB 2.9 LAB L501.2200 8.5-10.1 mg/dL CA Normal 8.6 LAB L501.2300 2.5-4.9 mg/dL Normal PHOS 2.9 LAB L501.5300 136-145 mmol/L NA Normal 139 LAB L501.5600 3.5-5.1 mmol/L K Normal 4.9 LAB L501.5900 98-107 mmol/L CL Normal 103 LAB L501.6100 21.0-32.0 mmol/L Normal CO2 28.0 Performed By: #### L500.3600 #### [facility] [address] [place], [address] CNOV Observed: 06/29/2017 Status: COMPLETED Source: [place] 10:00 AM [facility] REPOSITORY Office Visit (DERMIN) DEL BARRIOS Kimmy ([id number]) 1960 M [facility] Date Time Provider Department 06/29/17 10:00 AM SARA SMITH) DERMIN During your visit today, we recorded the following information about you: Sara Smith CNP 06/29/2017 8:49 AM Signed SKIN EXAM CC: This patient is a 57 year old male. Patient presents with: Actinic Keratosis SELF HPI: -Efudex follow up -Patient discontinued using Efudex on the left alevism after his 05/18/2017 office visit -Patient reports that he was applying Vaseline only until about one week ago -Patient reports that the area healed up well -Patient reports no other specific areas of concern on the skin today -Personal History of Skin Cancer: No -History of Blistering Sunburns:No -Family History of Skin Cancer: No SOC: Social History Marital status: Single Spouse name: Years of education: Number of children: 0 Social History Main Topics Smoking status: Former Smoker Packs/day: 0.50 Years: 40.00 Types: Cigarettes Start date: 08/10/2013 Quit date: 03/19/2014 Smokeless status: Never Used Alcohol use: No Drug use: No MEDS: Current outpatient prescriptions: Current Outpatient Prescriptions on File Prior to Visit: insulin regular human, CONCENTRATED 500 UNIT/ML, (HUMULIN R) 500 unit/mL soln 145 units with breakfast, 95 units with lunch, and 80 units with dinner clopidogrel (PLAVIX) 75 mg tablet Take 75 mg by mouth once daily. latanoprost (XALATAN) 0.005 % ophthalmic solution Use 1 Drop in both eyes daily at bedtime. brimonidine (ALPHAGAN) 0.2 % ophthalmic solution Use 1 Drop in both eyes twice daily. fluorouracil (EFUDEX) 2 % soln Applied to the affected areas of the face and scalp twice daily for 2 weeks on 2 weeks off and repeat gabapentin (NEURONTIN) 800 mg tablet Take 1 tablet by mouth daily at bedtime. nebivolol (BYSTOLIC) 10 mg tablet Take 1 tablet by mouth once daily. ferrous sulfate 325 mg (65 mg iron) EC tablet Take 1 tablet by mouth twice daily. losartan (COZAAR) 50 mg tablet Take 1 tablet by mouth once daily. atorvastatin (LIPITOR) 10 mg tablet Take 10 mg by mouth once daily. ERGOCALCIFEROL, VITAMIN D2, (VITAMIN D2 ORAL) Take 50,000 Units by mouth Once Weekly with Dialysis. MAGNESIUM HYDROXIDE/AL HYDROX (MYLANTA ORAL) Take 15 mL by mouth every 6 hours as needed. fluticasone (FLONASE) 50 mcg/actuation nasal spray Use 1 [place] in each nostril once daily. gabapentin (NEURONTIN) 600 mg tablet Take 600 mg by mouth daily with breakfast. ascorbic acid, vitamin C, (VITAMIN C) 500 mg tablet Take 500 mg by mouth once daily. apixaban (ELIQUIS) 2.5 mg tab tab(s) Take 2.5 mg by mouth twice daily. magnesium hydroxide (MILK OF MAGNESIA) 400 mg/5 mL suspension Take 30 mL by mouth once daily as needed. multivitamin tablet Take 1 tablet by mouth once daily. acetaminophen 325 mg tablet Take 650 mg by mouth every 4 hours as needed. Omeprazole 20 mg TbEC Take 40 mg by mouth once daily. zinc Take 220 mg by mouth once daily. No current facility-administered medications on file prior to visit. ALLERGY: ALLERGIES Allergen Reactions - Claude Inhibitors Other: See Comments Angioedema. - Bees Rash - Flagyl [Metronidazo* Other: See Comments Gets sick REVIEW OF SYSTEMS: Patient feels well and denies any recent fevers, chills, or nightsweats. PHYSICAL EXAM: The patient is a pleasant male in no distress. Patient appears healthy, well developed, well nourished and in otherwise good health. Alert and oriented x 3. A skin exam was done of the Face. [place] Skin Type II Well healed treatment sites, no residual actinic keratoses noted A/P: 1. Actinic Keratosis: Well healed. No additional treatment needed at this time. Instructed to monitor for recurrence and notify office if such occurs. Patient verbalizes understanding and agrees with treatment plan. Follow up in 1 year and PRN Sara Smith CNP Attending: Dr. Andrea The documentation for this note was completed by Laya Estevez Ma acting as scribe for Sara Smith ANGELA. June 29, 2017 8:33 AM. I agree with the Chief Complaint, ROS, and Past Histories independently gathered by the clinical technical support technician and the remaining scribed note accurately describes my personal service to the patient. Laya Estevez Ma 06/29/2017 8:44 AM Signed -Preventing harmful UV exposure is carlos to reducing your chances of skin cancer. Recommend avoiding unecessary sun exposure, seeking shade where possible, wearing protective clothing and applying sunscreen regularly. -Recommend daily use of Broad Spectrum sunscreen at least SPF 30 or higher. Sunscreen should be reapplied every 2 hours you are out in the sun. It should be reapplied every hour if you are sweating or swimming. This will help protect against sunburn, skin cancer and premature aging. -Monthly self-examinations are recommended. Should any moles change in size, shape or color, bleed or become tender, or if you see a spot that looks suspicious, please contact the office for evaluation sooner than your interval appointment. -Follow up in 1 year or sooner with concerns Referring Provider: SELF [[id number]] Allergies As of Date: 06/29/2017 Noted Allergy Reaction CLAUDE INHIBITORS 01/28/2014 14 - Other: See Comments Comments: Angioedema. BEES 07/24/2013 2 - Rash FLAGYL (METRONIDAZOLE) 01/16/2016 14 - Other: See Comments Comments: Gets sick Date Reviewed: 06/29/2017 Reviewed by: Laya Estevez Ma - Fully Assessed Reason for Visit: Actinic Keratosis [3604] Primary Visit Diagnosis:Actinic keratosis [L57.0] Prescriptions as of 06/29/2017 Sig: INSULIN REGULAR HUMAN U-500C* 145 units with breakfast, 95 * CLOPIDOGREL 75 MG TABLET Take 75 mg by mouth once narcisa* LATANOPROST 0.005 % EYE DROPS Use 1 Drop in both eyes daily* BRIMONIDINE 0.2 % EYE DROPS Use 1 Drop in both eyes twice* FLUOROURACIL 2 % TOPICAL SOLU* Applied to the affected areas* GABAPENTIN 800 MG TABLET Take 1 tablet by mouth daily * NEBIVOLOL 10 MG TABLET Take 1 tablet by mouth once d* FERROUS SULFATE 325 MG (65 MG* Take 1 tablet by mouth twice * LOSARTAN 50 MG TABLET Take 1 tablet by mouth once d* ATORVASTATIN 10 MG TABLET Take 10 mg by mouth once narcisa* VITAMIN D2 ORAL Take 50,000 Units by mouth On* MYLANTA ORAL Take 15 mL by mouth every 6 h* FLUTICASONE 50 MCG/ACTUATION * Use 1 [place] in each nostril o* GABAPENTIN 600 MG TABLET Take 600 mg by mouth daily wi* ASCORBIC ACID (VITAMIN C) 500* Take 500 mg by mouth once minnie* APIXABAN 2.5 MG TABLET Take 2.5 mg by mouth twice da* MAGNESIUM HYDROXIDE 400 MG/5 * Take 30 mL by mouth once narcisa* MULTIVITAMIN TABLET Take 1 tablet by mouth once d* ACETAMINOPHEN 325 MG TABLET Take 650 mg by mouth every 4 * OMEPRAZOLE 20 MG TABLET,DELAY* Take 40 mg by mouth once narcisa* ZINC Take 220 mg by mouth once minnie* Problem List As Of Date 06/29/2017 Noted Resolved Hypertension [I10] INVALID FOR* Priority: E Diabetic neuropathy ([facility]) [E11.40] INVALID FOR* GERD (Gastroesophageal Reflux Disease) [K21.9] More... Hyperlipidemia [E78.5] Priority: F More... Proteinuria [R80.9] More... Pressure ulcer, other site(707.09) ([facility]) [L89.*INVALID FOR*01/28/2014 CKD III [N18.3] INVALID FOR* Priority: D More... Diabetic ulcer of right foot ([facility]) [E11.621, L9*INVALID FOR*01/28/2014 Xtvqk-ew-hdglsov kidney injury (HCC) [N17.9, N1*INVALID FOR*01/31/2014 Chronic anticoagulation [Z79.01] INVALID FOR* More... 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 Ulcer of ankle ([facility]) [L97.309] INVALID FOR* Peripheral vascular disease, unspecified ([facility]) *INVALID FOR* S/P BKA (below knee amputation) ([facility]) [Z89.519] INVALID FOR* Lymphedema [I89.0] INVALID FOR* Hearing loss [H91.90] INVALID FOR* Rhinitis [J31.0] INVALID FOR* Chronic serous otitis media [H65.20] INVALID FOR*05/28/2017 Chronic otitis media of right ear [H66.91] INVALID FOR*05/28/2017 Deep vein thrombosis [I82.409] INVALID FOR* Priority: B More... Morbid obesity (HCC) [E66.01] INVALID FOR* Priority: G Open wound of right foot [S91.301A] INVALID FOR* Borderline glaucoma with ocular hypertension [H*INVALID FOR* Ulcer of toe of right foot (HCC) [L97.519] INVALID FOR* Bilateral chronic serous otitis media [H65.23] INVALID FOR* Wound of left leg [S81.802A] INVALID FOR* Cellulitis [L03.90] INVALID FOR*01/21/2017 Diabetes mellitus (HCC) [E11.9] INVALID FOR* Other instructions from your clinician: -Preventing harmful UV exposure is carlos to reducing your chances of skin cancer. Recommend avoiding unecessary sun exposure, seeking shade where possible, wearing protective clothing and applying sunscreen regularly. -Recommend daily use of Broad Spectrum sunscreen at least SPF 30 or higher. Sunscreen should be reapplied every 2 hours you are out in the sun. It should be reapplied every hour if you are sweating or swimming. This will help protect against sunburn, skin cancer and premature aging. -Monthly self-examinations are recommended. Should any moles change in size, shape or color, bleed or become tender, or if you see a spot that looks suspicious, please contact the office for evaluation sooner than your interval appointment. -Follow up in 1 year or sooner with concerns Disposition: Return for Yearly Full Body Skin Exam. Follow-up and Disposition History Recorded Encounter Status:Closed by SARA SMITH CNP on 06/29/17 PROGRESS Observed: 06/29/2017 Status: COMPLETED Source: [facility] 8:33 AM [facility] REPOSITORY O ID: [id number] Author: Sara Portillo (Angela) Sarah Service: (none) Author Type: Nurse Practitioner Type: Progress Notes Filed: 06/29/2017 8:49 AM Note Text: SKIN EXAM CC: This patient is a 57 year old male. Patient presents with: Actinic Keratosis SELF HPI: -Efudex follow up -Patient discontinued using Efudex on the left alevism after his 05/18/2017 office visit -Patient reports that he was applying Vaseline only until about one week ago -Patient reports that the area healed up well -Patient reports no other specific areas of concern on the skin today -Personal History of Skin Cancer: No -History of Blistering Sunburns:No -Family History of Skin Cancer: No SOC: Social History Marital status: Single Spouse name: Years of education: Number of children: 0 Social History Main Topics Smoking status: Former Smoker Packs/day: 0.50 Years: 40.00 Types: Cigarettes Start date: 08/10/2013 Quit date: 03/19/2014 Smokeless status: Never Used Alcohol use: No Drug use: No MEDS: Current outpatient prescriptions: Current Outpatient Prescriptions on File Prior to Visit: insulin regular human, CONCENTRATED 500 UNIT/ML, (HUMULIN R) 500 unit/mL soln 145 units with breakfast, 95 units with lunch, and 80 units with dinner clopidogrel (PLAVIX) 75 mg tablet Take 75 mg by mouth once daily. latanoprost (XALATAN) 0.005 % ophthalmic solution Use 1 Drop in both eyes daily at bedtime. brimonidine (ALPHAGAN) 0.2 % ophthalmic solution Use 1 Drop in both eyes twice daily. fluorouracil (EFUDEX) 2 % soln Applied to the affected areas of the face and scalp twice daily for 2 weeks on 2 weeks off and repeat gabapentin (NEURONTIN) 800 mg tablet Take 1 tablet by mouth daily at bedtime. nebivolol (BYSTOLIC) 10 mg tablet Take 1 tablet by mouth once daily. ferrous sulfate 325 mg (65 mg iron) EC tablet Take 1 tablet by mouth twice daily. losartan (COZAAR) 50 mg tablet Take 1 tablet by mouth once daily. atorvastatin (LIPITOR) 10 mg tablet Take 10 mg by mouth once daily. ERGOCALCIFEROL, VITAMIN D2, (VITAMIN D2 ORAL) Take 50,000 Units by mouth Once Weekly with Dialysis. MAGNESIUM HYDROXIDE/AL HYDROX (MYLANTA ORAL) Take 15 mL by mouth every 6 hours as needed. fluticasone (FLONASE) 50 mcg/actuation nasal spray Use 1 [place] in each nostril once daily. gabapentin (NEURONTIN) 600 mg tablet Take 600 mg by mouth daily with breakfast. ascorbic acid, vitamin C, (VITAMIN C) 500 mg tablet Take 500 mg by mouth once daily. apixaban (ELIQUIS) 2.5 mg tab tab(s) Take 2.5 mg by mouth twice daily. magnesium hydroxide (MILK OF MAGNESIA) 400 mg/5 mL suspension Take 30 mL by mouth once daily as needed. multivitamin tablet Take 1 tablet by mouth once daily. acetaminophen 325 mg tablet Take 650 mg by mouth every 4 hours as needed. Omeprazole 20 mg TbEC Take 40 mg by mouth once daily. zinc Take 220 mg by mouth once daily. No current facility-administered medications on file prior to visit. ALLERGY: ALLERGIES Allergen Reactions - Claude Inhibitors Other: See Comments Angioedema. - Bees Rash - Flagyl [Metronidazo* Other: See Comments Gets sick REVIEW OF SYSTEMS: Patient feels well and denies any recent fevers, chills, or nightsweats. PHYSICAL EXAM: The patient is a pleasant male in no distress. Patient appears healthy, well developed, well nourished and in otherwise good health. Alert and oriented x 3. A skin exam was done of the Face. [place] Skin Type II Well healed treatment sites, no residual actinic keratoses noted A/P: 1. Actinic Keratosis: Well healed. No additional treatment needed at this time. Instructed to monitor for recurrence and notify office if such occurs. Patient verbalizes understanding and agrees with treatment plan. Follow up in 1 year and PRN Sara Smith CNP Attending: Dr. Andrea The documentation for this note was completed by Laya Estevez Ma acting as scribe for Sara Smith CNP. June 29, 2017 8:33 AM. I agree with the Chief Complaint, ROS, and Past Histories independently gathered by the clinical technical support technician and the remaining scribed note accurately describes my personal service to the patient. CNOV Observed: 05/28/2017 Status: COMPLETED Source: [facility] 11:30 AM [facility] REPOSITORY [facility] DEL BARRIOS ([id number]) 1960 M [facility] Date Time Provider Department 05/28/17 11:30 AM CHRISTIANO PARIKH During your visit today, we recorded the following information about you: Pulse Blood pressure 77/minute 136/70 Christiano Parikh MD 06/17/2017 5:38 PM Signed ASSESSMENT/PLAN: 1. Type 2 diabetes mellitus with other circulatory complication, with long-term current use of insulin (HCC) - ICD9: 250.70, V58.67, ICD10: E11.59, Z79.4 (primary diagnosis) Fair control - Blood glucose monitoring on a four times a day schedule - INSULIN REGULAR HUMAN U-500ANDquot;CONCENTRATEANDquot; 500 UNIT/ML SUBCUTANEOUS SOLN - HGB A1C - BASIC METABOLIC PNL 2. Chronic anticoagulation - ICD9: V58.61, ICD10: Z79.01 - follow cbc 3. Peripheral vascular disease, unspecified (HCC) - ICD9: 443.9, ICD10: I73.9 Stressed importance of bp control, sugar control, continue to follow with wound care - CBC 4. Venous stasis ulcer of right lower extremity (HCC) - ICD9: 454.0, ICD10: I83.019 - CBC 5. Diabetic polyneuropathy associated with type 2 diabetes mellitus (HCC) - ICD9: 250.60, 357.2, ICD10: E11.42 Christiano Parikh MD Additional Medical Conditions Last edited 05/28/17 11:23 EST by Christiano Parikh MD Patient is a 56 year old male presenting with diabetes problem. Diabetes He presents for his follow-up diabetic visit. He has type 2 diabetes mellitus. Pertinent negatives for hypoglycemia include no confusion or seizures. Pertinent negatives for diabetes include no blurred vision, no chest pain and no visual change. Risk factors for coronary artery disease include diabetes mellitus and hypertension. Current diabetic treatment includes insulin injections. He is compliant with treatment most of the time. He never participates in exercise. (Testing sugars 4 times a day 150- 250) An CLAUDE inhibitor/angiotensin II receptor jeet is being taken. He sees a lap machine tender.Eye exam is current. Hemoglobin A1C (%) Date Value 01/21/2017 7.3 He is getting home nursing to change wound dressing on left leg and then wounds on the right foot/toes. He is currently not on antibiotic. He is getting wound care at [facility]. 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 Getting a meal per day delivered every 2 weeks. Review of Systems Eyes: Negative for blurred vision. Cardiovascular: Negative for chest pain. Neurological: Negative for seizures. Psychiatric/Behavioral: Negative for confusion. HISTORIES FAMILY HISTORY Problem Relation Age of Onset - Diabetes Mother type 2 - No Ocular Disease Mother - Hypertension Father - Cataract Father - No Ocular Disease Father - Diabetes Brother type 2 PAST MEDICAL HISTORY Diagnosis Date - Acute renal failure (HCC) 2007 related to medication - Aokix-kb-wjgzmop kidney injury ([facility]) 01/28/2014 - Anemia - Background diabetic retinopathy(362.01) [facility] Corbin's esophagus - Below knee amputation of left lower extremity ([facility]) 09/28/2013 - Chronic kidney disease (CKD) - Chronic obstructive pulmonary disease (COPD) ([facility]) bronchitis - DDD (degenerative disc disease), lumbosacral - DM (diabetes mellitus) with complications ([facility]) On pre-meal insulin coverage - DVT (deep venous thrombosis) 05/18/2012 left leg - Essential hypertension, benign - Foot ulcer due to secondary DM ([facility]) 2010 both feet, sees Podiatry - Fracture lt ankle stress fracture - GERD (gastroesophageal reflux disease) nexium - Hyperlipidemia - Neuropathy ([facility]) hands ANDamp; feet - Peripheral vascular disease ([facility]) - Proliferative diabetic retinopathy(362.02) - Proteinuria being treated with ACEI/ARB - Rotator cuff tear RT. - Spondylolysis - Type II or unspecified type diabetes mellitus with ophthalmic manifestations, not stated as uncontrolled(250.50) - Wound infection rt lower leg and toes PAST SURGICAL HISTORY Procedure Laterality Date - AMPUTATION METATARSAL+TOE,SINGLE right 5th toe - CATARACT EXT; [facility] IOL SYS Lt - LEG AMPUTATION HX Left AKA - PAST SURGICAL HISTORY OF removal glass right foot - PAST SURGICAL HISTORY OF multile laser surgeries to eyes - PAST SURGICAL HISTORY OF 08/16/2013 left BKA - PAST SURGICAL HISTORY OF 11/29/2013 iol OD - REMOVAL OF TONSILS,ANDlt;10 Y/O Tonsillectomy - VITRECTOMY,MECHANICAL Pars [place] Vitrectomy Social History Marital status: Single Spouse name: Years of education: Number of children: 0 Social History Main Topics Smoking status: Former Smoker Packs/day: 0.50 Years: 40.00 Types: Cigarettes Start date: 08/10/2013 Quit date: 03/19/2014 Smokeless status: Never Used Alcohol use: No Drug use: No MEDICATIONS: Current Outpatient Prescriptions: insulin regular human, CONCENTRATED 500 UNIT/ML, (HUMULIN R) 500 unit/mL soln 145 units with breakfast, 95 units with lunch, and 80 units with dinner Disp: Rfl: clopidogrel (PLAVIX) 75 mg tablet Take 75 mg by mouth once daily. Disp: Rfl: latanoprost (XALATAN) 0.005 % ophthalmic solution Use 1 Drop in both eyes daily at bedtime. Disp: 2.5 mL Rfl: 11 brimonidine (ALPHAGAN) 0.2 % ophthalmic solution Use 1 Drop in both eyes twice daily. Disp: 10 mL Rfl: 11 fluorouracil (EFUDEX) 2 % soln Applied to the affected areas of the face and scalp twice daily for 2 weeks on 2 weeks off and repeat Disp: 10 mL Rfl: 2 gabapentin (NEURONTIN) 800 mg tablet Take 1 tablet by mouth daily at bedtime. Disp: Rfl: nebivolol (BYSTOLIC) 10 mg tablet Take 1 tablet by mouth once daily. Disp: Rfl: 0 ferrous sulfate 325 mg (65 mg iron) EC tablet Take 1 tablet by mouth twice daily. Disp: Rfl: 0 losartan (COZAAR) 50 mg tablet Take 1 tablet by mouth once daily. Disp: Rfl: 0 atorvastatin (LIPITOR) 10 mg tablet Take 10 mg by mouth once daily. Disp: Rfl: ERGOCALCIFEROL, VITAMIN D2, (VITAMIN D2 ORAL) Take 50,000 Units by mouth Once Weekly with Dialysis. Disp: Rfl: MAGNESIUM HYDROXIDE/AL HYDROX (MYLANTA ORAL) Take 15 mL by mouth every 6 hours as needed. Disp: Rfl: fluticasone (FLONASE) 50 mcg/actuation nasal spray Use 1 [place] in each nostril once daily. Disp: Rfl: gabapentin (NEURONTIN) 600 mg tablet Take 600 mg by mouth daily with breakfast. Disp: Rfl: ascorbic acid, vitamin C, (VITAMIN C) 500 mg tablet Take 500 mg by mouth once daily. Disp: Rfl: apixaban (ELIQUIS) 2.5 mg tab tab(s) Take 2.5 mg by mouth twice daily. Disp: Rfl: magnesium hydroxide (MILK OF MAGNESIA) 400 mg/5 mL suspension Take 30 mL by mouth once daily as needed. Disp: Rfl: multivitamin tablet Take 1 tablet by mouth once daily. Disp: Rfl: acetaminophen 325 mg tablet Take 650 mg by mouth every 4 hours as needed. Disp: Rfl: Omeprazole 20 mg TbEC Take 40 mg by mouth once daily. Disp: Rfl: zinc Take 220 mg by mouth once daily. Disp: Rfl: No current facility-administered medications for this visit. Physical Exam Constitutional: No distress. Cardiovascular: Normal rate and regular rhythm. No murmur heard. Pulmonary/Chest: Effort normal and breath sounds normal. He has no wheezes. He has no rales. Abdominal: Soft. Musculoskeletal: Left BKA, with wound dressing in place, Right with wound dressing Skin: He is not diaphoretic. Component Latest Ref Rng ANDamp; Units 01/21/2017 Protein, Total 6.0 - 8.4 g/dL 7.1 Albumin 3.5 - 5.0 g/dL 3.2 (L) Calcium 8.5 - 10.5 mg/dL 8.9 Bilirubin, Total 0.0 - 1.5 mg/dL 0.3 Alkaline Phosphatase 40 - 150 U/L 84 AST 7 - 40 U/L 28 Glucose 65 - 100 mg/dL 253 (H) BUN 10 - 25 mg/dL 40 (H) Creatinine 0.70 - 1.40 mg/dL 1.39 Sodium 135 - 146 mmol/L 142 Potassium 3.5 - 5.0 mmol/L 5.3 (H) Chloride 98 - 110 mmol/L 105 CO2 23 - 32 mmol/L 24 Anion Gap 9 - 18 mmol/L 13 ALT 5 - 50 U/L 25 eGFR- ANDgt;60 eGFR-All Other Races . 52 WBC 3.70 - 11.00 k/uL 7.70 RBC 4.20 - 6.00 m/uL 3.67 (L) Hemoglobin 13.0 - 17.0 g/dL 10.3 (L) Hematocrit 39.0 - 51.0 % 34.0 (L) MCV 80.0 - 100.0 fL 92.6 MCH 26.0 - 34.0 pG 28.1 MCHC 30.5 - 36.0 g/dL 30.3 (L) RDW-CV 11.5 - 15.0 % 15.4 (H) Platelet Count 150 - 400 k/uL 153 MPV 9.0 - 12.7 fL 10.8 Triglyceride 30 - 149 mg/dL 243 (H) Cholesterol 100 - 199 mg/dL 126 HDL Cholesterol ANDgt;45 mg/dL 34 (L) VLDL Cholesterol 6 - 40 mg/dL 49 (H) LDL Cholesterol 60 - 129 mg/dL 43 (L) Fasting Time hrs Unknown TC:HDL Ratio 1.00 - 5.00 3.71 LDL:HDL Ratio 0.50 - 3.55 1.26 Non HDL Cholesterol 90 - 159 mg/dL 92 I have personally reviewed and agree with the Chief Complaint and scribed Subjective Data independently gathered by the clinical technical support technician. Christiano Parikh MD Referring Provider: SELF [200] Allergies As of Date: 05/28/2017 Noted Allergy Reaction CLAUDE INHIBITORS 01/28/2014 14 - Other: See Comments Comments: Angioedema. BEES 07/24/2013 2 - Rash FLAGYL (METRONIDAZOLE) 01/16/2016 14 - Other: See Comments Comments: Gets sick Date Reviewed: 05/28/2017 Reviewed by: Christiano Parikh - Fully Assessed Reason for Visit: Recheck [92] Primary Visit Diagnosis:Type 2 diabetes mellitus with other circulatory complication, with long-term current use of insulin (HCC) [E11.59, Z79.4] Other Visit Diagnoses:Chronic anticoagulation [Z79.01] Peripheral vascular disease, unspecified (HCC) [I73.9] Venous stasis ulcer of right lower extremity (HCC) [I83.019] Diabetic polyneuropathy associated with type 2 diabetes mellitus (HCC) [E11.42] Order(s):insulin regular human, CONCENTRATED 500 UNIT/ML, (HUMULIN R) 500 unit/mL fova222 units with breakfast, 95 units with lunch, and 80 units with dinnerDisp: Rfl: HGB A1C [[id number]] Order #: [id number] FUTURE BASIC METABOLIC PNL [SQBMP] Order #: [id number] FUTURE CBC [SQCBC] Order #: [id number] FUTURE Prescriptions as of 05/28/2017 Sig: INSULIN REGULAR HUMAN U-500C* 145 units with breakfast, 95 * CLOPIDOGREL 75 MG TABLET Take 75 mg by mouth once narcisa* LATANOPROST 0.005 % EYE DROPS Use 1 Drop in both eyes daily* BRIMONIDINE 0.2 % EYE DROPS Use 1 Drop in both eyes twice* FLUOROURACIL 2 % TOPICAL SOLU* Applied to the affected areas* GABAPENTIN 800 MG TABLET Take 1 tablet by mouth daily * NEBIVOLOL 10 MG TABLET Take 1 tablet by mouth once d* FERROUS SULFATE 325 MG (65 MG* Take 1 tablet by mouth twice * LOSARTAN 50 MG TABLET Take 1 tablet by mouth once d* ATORVASTATIN 10 MG TABLET Take 10 mg by mouth once narcisa* VITAMIN D2 ORAL Take 50,000 Units by mouth On* MYLANTA ORAL Take 15 mL by mouth every 6 h* FLUTICASONE 50 MCG/ACTUATION * Use 1 [place] in each nostril o* GABAPENTIN 600 MG TABLET Take 600 mg by mouth daily wi* ASCORBIC ACID (VITAMIN C) 500* Take 500 mg by mouth once minnie* APIXABAN 2.5 MG TABLET Take 2.5 mg by mouth twice da* MAGNESIUM HYDROXIDE 400 MG/5 * Take 30 mL by mouth once narcisa* MULTIVITAMIN TABLET Take 1 tablet by mouth once d* ACETAMINOPHEN 325 MG TABLET Take 650 mg by mouth every 4 * OMEPRAZOLE 20 MG TABLET,DELAY* Take 40 mg by mouth once narcisa* ZINC Take 220 mg by mouth once minnie* Problem List As Of Date 05/28/2017 Noted Resolved Hypertension [I10] INVALID FOR* Priority: E Diabetic neuropathy (HCC) [E11.40] INVALID FOR* GERD (Gastroesophageal Reflux Disease) [K21.9] More... Hyperlipidemia [E78.5] Priority: F More... Proteinuria [R80.9] More... Pressure ulcer, other site(707.09) ([facility]) [L89.*INVALID FOR*01/28/2014 CKD III [N18.3] INVALID FOR* Priority: D More... Diabetic ulcer of right foot (HCC) [E11.621, L9*INVALID FOR*01/28/2014 Xaddw-gy-tzrnrgm kidney injury (HCC) [N17.9, N1*INVALID FOR*01/31/2014 Chronic anticoagulation [Z79.01] INVALID FOR* More... 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 Ulcer of ankle ([facility]) [L97.309] INVALID FOR* Peripheral vascular disease, unspecified ([facility]) *INVALID FOR* S/P BKA (below knee amputation) ([facility]) [Z89.519] INVALID FOR* Lymphedema [I89.0] INVALID FOR* Hearing loss [H91.90] INVALID FOR* Rhinitis [J31.0] INVALID FOR* Chronic serous otitis media [H65.20] INVALID FOR*05/28/2017 Chronic otitis media of right ear [H66.91] INVALID FOR*05/28/2017 Deep vein thrombosis [I82.409] INVALID FOR* Priority: B More... Morbid obesity ([facility]) [E66.01] INVALID FOR* Priority: G Open wound of right foot [S91.301A] INVALID FOR* Borderline glaucoma with ocular hypertension [H*INVALID FOR* Ulcer of toe of right foot ([facility]) [L97.519] INVALID FOR* Bilateral chronic serous otitis media [H65.23] INVALID FOR* Wound of left leg [S81.802A] INVALID FOR* Cellulitis [L03.90] INVALID FOR*01/21/2017 Diabetes mellitus ([facility]) [E11.9] INVALID FOR* Prescriptions ordered this encounter Disp Refills Start End INSULIN REGULAR HUMAN U-500CONCENTR* 05/28/2017 Class: Med Update Si units with breakfast, 95 units with lunch, and 80 units with dinner Medications Discontinued During This Encounter atorvastatin 10 mg tablet 05/28/2017 Class: Historical Med Route: ORAL Sig: Take 10 mg by mouth once daily. Disc: Duplicate Entry insulin regular human, CONCENTRATED * 01/21/2017 05/28/2017 Class: Med Update Si units with breakfast, 85 units with lunch, and 75 units with dinner Disc: Reason for discontinue is not on file. Disposition: Return in about 4 months (around 09/26/2017). Follow-up and Disposition History Recorded Encounter Status:Closed by CHRISTIANO PARIKH MD on 06/17/17 PROGRESS Observed: 05/28/2017 Status: COMPLETED Source: [facility] 10:52 AM [facility] [place] REPOSITORY HNO ID: [id number] Author: Christiano Parikh Service: (none) Author Type: Physician Type: Progress Notes Filed: 06/17/2017 5:38 PM Note Text: ASSESSMENT/PLAN: 1. Type 2 diabetes mellitus with other circulatory complication, with long-term current use of insulin ([facility]) - ICD9: 250.70, V58.67, ICD10: E11.59, Z79.4 (primary diagnosis) Fair control - Blood glucose monitoring on a four times a day schedule - INSULIN REGULAR HUMAN U-500CONCENTRATE 500 UNIT/ML SUBCUTANEOUS SOLN - HGB A1C - BASIC METABOLIC PNL 2. Chronic anticoagulation - ICD9: V58.61, ICD10: Z79.01 - follow cbc 3. Peripheral vascular disease, unspecified ([facility]) - ICD9: 443.9, ICD10: I73.9 Stressed importance of bp control, sugar control, continue to follow with wound care - CBC 4. Venous stasis ulcer of right lower extremity ([facility]) - ICD9: 454.0, ICD10: I83.019 - CBC 5. Diabetic polyneuropathy associated with type 2 diabetes mellitus ([facility]) - ICD9: 250.60, 357.2, ICD10: E11.42 Christiano Parikh MD Additional Medical Conditions Last edited 05/28/17 11:23 EST by Christiano Parikh MD Patient is a 56 year old male presenting with diabetes problem. Diabetes He presents for his follow-up diabetic visit. He has type 2 diabetes mellitus. Pertinent negatives for hypoglycemia include no confusion or seizures. Pertinent negatives for diabetes include no blurred vision, no chest pain and no visual change. Risk factors for coronary artery disease include diabetes mellitus and hypertension. Current diabetic treatment includes insulin injections. He is compliant with treatment most of the time. He never participates in exercise. (Testing sugars 4 times a day 150-250) An CLAUDE inhibitor/angiotensin II receptor jeet is being taken. He sees a lap machine tender.Eye exam is current. Hemoglobin A1C (%) Date Value 01/21/2017 7.3 He is getting home nursing to change wound dressing on left leg and then wounds on the right foot/toes. He is currently not on antibiotic. He is getting wound care at [facility]. 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 Getting a meal per day delivered every 2 weeks. Review of Systems Eyes: Negative for blurred vision. Cardiovascular: Negative for chest pain. Neurological: Negative for seizures. Psychiatric/Behavioral: Negative for confusion. HISTORIES FAMILY HISTORY Problem Relation Age of Onset - Diabetes Mother type 2 - No Ocular Disease Mother - Hypertension Father - Cataract Father - No Ocular Disease Father - Diabetes Brother type 2 PAST MEDICAL HISTORY Diagnosis Date - Acute renal failure (HCC) 2007 related to medication - Dloys-rd-qxjqwjt kidney injury (HCC) 01/28/2014 - Anemia - Background diabetic retinopathy(362.01) followed by [facility] - Corbin's esophagus - Below knee amputation of left lower extremity ([facility]) 09/28/2013 - Chronic kidney disease (CKD) - Chronic obstructive pulmonary disease (COPD) ([facility]) bronchitis - DDD (degenerative disc disease), lumbosacral - DM (diabetes mellitus) with complications ([facility]) On pre-meal insulin coverage - DVT (deep venous thrombosis) 05/18/2012 left leg - Essential hypertension, benign - Foot ulcer due to secondary DM ([facility]) 2009 both feet, sees Podiatry - Fracture lt ankle stress fracture - GERD (gastroesophageal reflux disease) nexium - Hyperlipidemia - Neuropathy ([facility]) hands AND feet - Peripheral vascular disease ([facility]) - Proliferative diabetic retinopathy(362.02) - Proteinuria being treated with ACEI/ARB - Rotator cuff tear RT. - Spondylolysis - Type II or unspecified type diabetes mellitus with ophthalmic manifestations, not stated as uncontrolled(250.50) - Wound infection rt lower leg and toes PAST SURGICAL HISTORY Procedure Laterality Date - AMPUTATION METATARSAL+TOE,SINGLE right 5th toe - CATARACT EXT; EYE[facility]ICS IOL SYS Lt - LEG AMPUTATION HX Left AKA - PAST SURGICAL HISTORY OF removal glass right foot - PAST SURGICAL HISTORY OF multile laser surgeries to eyes - PAST SURGICAL HISTORY OF 08/16/2013 left BKA - PAST SURGICAL HISTORY OF 11/29/2013 iol OD - REMOVAL OF TONSILS,<12 Y/O Tonsillectomy - VITRECTOMY,MECHANICAL [place] Vitrectomy Social History Marital status: Single Spouse name: Years of education: Number of children: 0 Social History Main Topics Smoking status: Former Smoker Packs/day: 0.50 Years: 40.00 Types: Cigarettes Start date: 08/10/2013 Quit date: 03/19/2014 Smokeless status: Never Used Alcohol use: No Drug use: No MEDICATIONS: Current Outpatient Prescriptions: insulin regular human, CONCENTRATED 500 UNIT/ML, (HUMULIN R) 500 unit/mL soln 145 units with breakfast, 95 units with lunch, and 80 units with dinner Disp: Rfl: clopidogrel (PLAVIX) 75 mg tablet Take 75 mg by mouth once daily. Disp: Rfl: latanoprost (XALATAN) 0.005 % ophthalmic solution Use 1 Drop in both eyes daily at bedtime. Disp: 2.5 mL Rfl: 11 brimonidine (ALPHAGAN) 0.2 % ophthalmic solution Use 1 Drop in both eyes twice daily. Disp: 10 mL Rfl: 11 fluorouracil (EFUDEX) 2 % soln Applied to the affected areas of the face and scalp twice daily for 2 weeks on 2 weeks off and repeat Disp: 10 mL Rfl: 2 gabapentin (NEURONTIN) 800 mg tablet Take 1 tablet by mouth daily at bedtime. Disp: Rfl: nebivolol (BYSTOLIC) 10 mg tablet Take 1 tablet by mouth once daily. Disp: Rfl: 0 ferrous sulfate 325 mg (65 mg iron) EC tablet Take 1 tablet by mouth twice daily. Disp: Rfl: 0 losartan (COZAAR) 50 mg tablet Take 1 tablet by mouth once daily. Disp: Rfl: 0 atorvastatin (LIPITOR) 10 mg tablet Take 10 mg by mouth once daily. Disp: Rfl: ERGOCALCIFEROL, VITAMIN D2, (VITAMIN D2 ORAL) Take 50,000 Units by mouth Once Weekly with Dialysis. Disp: Rfl: MAGNESIUM HYDROXIDE/AL HYDROX (MYLANTA ORAL) Take 15 mL by mouth every 6 hours as needed. Disp: Rfl: fluticasone (FLONASE) 50 mcg/actuation nasal spray Use 1 [place] in each nostril once daily. Disp: Rfl: gabapentin (NEURONTIN) 600 mg tablet Take 600 mg by mouth daily with breakfast. Disp: Rfl: ascorbic acid, vitamin C, (VITAMIN C) 500 mg tablet Take 500 mg by mouth once daily. Disp: Rfl: apixaban (ELIQUIS) 2.5 mg tab tab(s) Take 2.5 mg by mouth twice daily. Disp: Rfl: magnesium hydroxide (MILK OF MAGNESIA) 400 mg/5 mL suspension Take 30 mL by mouth once daily as needed. Disp: Rfl: multivitamin tablet Take 1 tablet by mouth once daily. Disp: Rfl: acetaminophen 325 mg tablet Take 650 mg by mouth every 4 hours as needed. Disp: Rfl: Omeprazole 20 mg TbEC Take 40 mg by mouth once daily. Disp: Rfl: zinc Take 220 mg by mouth once daily. Disp: Rfl: No current facility-administered medications for this visit. Physical Exam Constitutional: No distress. Cardiovascular: Normal rate and regular rhythm. No murmur heard. Pulmonary/Chest: Effort normal and breath sounds normal. He has no wheezes. He has no rales. Abdominal: Soft. Musculoskeletal: Left BKA, with wound dressing in place, Right with wound dressing Skin: He is not diaphoretic. Component Latest Ref Rng AND Units 01/21/2017 Protein, Total 6.0 - 8.4 g/dL 7.1 Albumin 3.5 - 5.0 g/dL 3.2 (L) Calcium 8.5 - 10.5 mg/dL 8.9 Bilirubin, Total 0.0 - 1.5 mg/dL 0.3 Alkaline Phosphatase 40 - 150 U/L 84 AST 7 - 40 U/L 28 Glucose 65 - 100 mg/dL 253 (H) BUN 10 - 25 mg/dL 40 (H) Creatinine 0.70 - 1.40 mg/dL 1.39 Sodium 135 - 146 mmol/L 142 Potassium 3.5 - 5.0 mmol/L 5.3 (H) Chloride 98 - 110 mmol/L 105 CO2 23 - 32 mmol/L 24 Anion Gap 9 - 18 mmol/L 13 ALT 5 - 50 U/L 25 eGFR- >60 eGFR-All Other Races . 52 WBC 3.70 - 11.00 k/uL 7.70 RBC 4.20 - 6.00 m/uL 3.67 (L) Hemoglobin 13.0 - 17.0 g/dL 10.3 (L) Hematocrit 39.0 - 51.0 % 34.0 (L) MCV 80.0 - 100.0 fL 92.6 MCH 26.0 - 34.0 pG 28.1 MCHC 30.5 - 36.0 g/dL 30.3 (L) RDW-CV 11.5 - 15.0 % 15.4 (H) Platelet Count 150 - 400 k/uL 153 MPV 9.0 - 12.7 fL 10.8 Triglyceride 30 - 149 mg/dL 243 (H) Cholesterol 100 - 199 mg/dL 126 HDL Cholesterol >45 mg/dL 34 (L) VLDL Cholesterol 6 - 40 mg/dL 49 (H) LDL Cholesterol 60 - 129 mg/dL 43 (L) Fasting Time hrs Unknown TC:HDL Ratio 1.00 - 5.00 3.71 LDL:HDL Ratio 0.50 - 3.55 1.26 Non HDL Cholesterol 90 - 159 mg/dL 92 I have personally reviewed and agree with the Chief Complaint and scribed Subjective Data independently gathered by the clinical technical support technician. Christiano Parikh MD ALLERGIES ALLERGIES DATE TYPE / CODE NAME / CODE REACTION SEVERITY SOURCE 12/13/2017 Drug metronidazole/F0060 Itching Unknown [place] Allergy/416 70370(RXNORM) Community 381695([email or web address] ED CT) Repository 12/13/2017 Drug bee venom protein Swelling Unknown [place] Allergy/416 (honey Community 966904([facility] bee)/[id number]([facility] ED CT) ORM) Repository 01/16/2016 DRUG METRONIDAZOLE OTHER: SEE C [facility] INGREDI/419 [place] 463407(SNOM Repository ED CT) 01/28/2014 Drug CLAUDE INHIBITORS OTHER: SEE C [facility] Class/28058 [place] 1003(SNOMED Repository CT) 07/24/2013 Environ/420 BEES RASH [facility] 291998([facility] ED CT) Repository ENCOUNTERS ENCOUNTERS ADMIT/DISCHARGE ACCOUNT ADMITTING ENCOUNTER LOCATION SOURCE NUMBER CLASS 05/25/2018 [id number] Ambulatory [facility] Hospital ing: Repository 05/17/2018 [id number] Ambulatory [facility] [facility] [place] Repository 05/17/2018 [id number] Ambulatory BMSBuilding:W [facility] Repository 05/16/2018 [id number] Ambulatory BMSBuilding:[place] [facility] [place] Repository 05/12/2018/05/17/20 [id number] Ambulatory [address] Repository 05/11/2018 [id number] Ambulatory [facility]Building:[facility] [place] Repository 05/06/2018/05/06/20 [id number] Ambulatory [address] Hospital ing: Repository 05/05/2018 [id number] Ambulatory BMSBuilding:W [facility] Repository 05/02/2018/05/03/20 [id number] Ambulatory [address] Repository 04/27/2018 [id number] Ambulatory BMSBuilding:[facility] Repository 04/26/2018 [id number] Ambulatory [facility]MSBuilding:[facility] [place] Repository 04/20/2018 [id number] Ambulatory BMSBuilding:[facility] Repository 04/18/2018 [id number] Ambulatory BMSBuilding:[facility] [place] Repository 04/14/2018 [id number] Ambulatory BMSBuilding:[facility] Repository 04/13/2018 [id number] Ambulatory BMSBuilding:[facility] Repository 04/12/2018 [id number] Ambulatory [facility]MSBuilding:[facility] [place] Repository 04/08/2018/04/13/20 [id number] Ambulatory [address] Repository 04/07/2018 [id number] Ambulatory BMSBuilding:[facility] Repository 04/06/2018/04/06/20 [id number] Ambulatory [address] Hospital ing: Repository 04/06/2018 [id number] Ambulatory BMSBuilding:[facility] Repository 04/04/2018 [id number] Ambulatory BMSBuilding:[facility] [place] Repository 03/31/2018/03/31/20 [id number] Ambulatory [address] Hospital ing:[place] Repository 03/30/2018 [id number] Ambulatory BMSBuilding:[facility] Repository 03/25/2018/04/11/20 [id number] Ambulatory [address] Repository 03/22/2018 [id number] Ambulatory [facility]MSBuilding:[facility] [place] Repository 03/17/2018 [id number] Ambulatory BMSBuilding:[facility] Repository 03/16/2018 [id number] Ambulatory BMSBuilding:[facility] Repository 03/14/2018 [id number] Ambulatory BMSBuilding:[facility] [place] Repository 03/10/2018 [id number] Ambulatory BMSBuilding:[facility] Repository 03/09/2018 [id number] Ambulatory BMSBuilding:W [facility] Repository 03/07/2018 [id number] Ambulatory BMSBuilding:[facility] [place] Repository 03/04/2018/03/06/20 [id number] Ambulatory [address] HospitalBuild Hospital ing: Repository 03/03/2018 [id number] Ambulatory BMSBuilding:[facility] Repository 03/02/2018 [id number] Ambulatory BMSBuilding:[facility] Repository 02/25/2018/02/29/20 [id number] Ambulatory [address] Repository 02/24/2018 [id number] Ambulatory BMSBuilding:[facility] Repository 02/21/2018 [id number] Ambulatory BMSBuilding:[facility] [place] Repository 02/17/2018 [id number] Ambulatory BMSBuilding:[facility] Repository 02/16/2018 [id number] Ambulatory BMSBuilding:[facility] Repository 02/14/2018 [id number] Ambulatory BMSBuilding:[facility] [place] Repository 02/10/2018/02/16/20 [id number] Ambulatory [address] Repository 02/09/2018 [id number] Ambulatory BMSBuilding:[facility] Repository 02/04/2018/02/10/20 [id number] Ambulatory [address] Repository 02/03/2018/02/05/20 [id number] Ambulatory [address] HospitalBuild Hospital ing: Repository 02/03/2018/02/05/20 [id number] Ambulatory BMSBuilding:W [address] Repository 01/24/2018 [id number] Ambulatory BMSBuilding:Ray [facility] [place] Repository 01/20/2018/02/05/20 [id number] Ambulatory [address] HospitalBuild Hospital ing:[place] Repository 12/29/2017/01/05/20 [id number] Ambulatory [address] HospitalBuild Hospital ing: Repository 12/23/2017 [id number] Ambulatory BMSBuilding:W [facility] Repository 12/16/2017 [id number] [facility] Repository 12/13/2017/12/14/19 [id number] Emergency [place] HospitalBuild Hospital ing:ED Repository 12/02/2017/12/05/19 [id number] Ambulatory [place] HospitalBuild Hospital ing:[place] Repository 12/02/2017 [id number] Ambulatory [facility] HospitalBuild Hospital ing:LAB.[facility]UR Repository E 12/01/2017/12/05/19 [id number] Ambulatory [place] HospitalBuild Hospital ing:[place] Repository 11/09/2017/11/13/19 [id number] Ambulatory [address] Repository 11/04/2017 [id number] Ambulatory [facility] HospitalBuild Hospital ing:LAB Repository 11/04/2017/11/05/19 [id number] Ambulatory [place] HospitalBuild Hospital ing:[place] Repository 11/03/2017/11/05/19 [id number] Ambulatory [place]y[address] HospitalBuild Hospital ing:[place] Repository 10/29/2017 [id number] Ambulatory [facility] HospitalBuild Hospital ing:CT Repository 10/29/2017 [id number] Ambulatory [facility] HospitalBuild Hospital ing:US Repository 10/29/2017 [id number] Ambulatory [facility] HospitalBuild Hospital ing:MRI Repository 10/20/2017 [id number] Ambulatory [facility] HospitalBuild Hospital ing:POLAB3 Repository 10/14/2017 [id number] Ambulatory [facility] HospitalBuild Hospital ing:LAB.FUTUR Repository E 10/11/2017 [id number] Ambulatory [facility] [place] g:H.ELS Repository 10/01/2017 [id number] Ambulatory [facility] HospitalBuild Hospital ing:POLAB3 Repository 09/15/2017 [id number] Ambulatory [facility] HospitalBuild Hospital ing:WC Repository 09/14/2017/09/15/19 [id number] Ambulatory Rudy [place] [facility] Hospital ing:SDC Repository 09/07/2017/09/28/19 [id number] Arnie Reese Chi Inpatient [place] 18 Encounter [facility] Hospital ing:TCURoom: Repository IGY47Ztf: 1 09/02/2017/09/08/19 [id number] Ambulatory BMSBuilding:W [place] [facility] Repository 09/01/2017/09/08/19 [id number] Tereletsky, Inpatient [place] Rudy 18 Ruddy Encounter [facility] ing:JK6Ugjw: Repository KC573Exc: 1 09/01/2017 [id number] Tere[place]sky, Ambulatory BMSBuilding:[facility] [place] [facility] Repository 09/01/2017 [id number] [place], Ambulatory BMSBuilding:Ray [facility] Repository 09/01/2017 [id number] [place]sky, Ambulatory BMSBuilding:Ray [facility] Repository 09/01/2017 [id number] Tereletsky, Ambulatory BMSBuilding:[facility] Repository 09/01/2017 [id number] Tereletsky, Ambulatory BMSBuilding:Ray [facility] Repository 09/01/2017 [id number] Tereletsky, Ambulatory BMSBuilding:Ray [facility] Repository 09/01/2017 [id number] Tereletsky, Ambulatory BMSBuilding:Ray [facility] Repository 09/01/2017/09/05/19 [id number] [place] [address] [place] [address] Hospital ing:WC Repository 08/17/2017/09/05/19 [id number] Ambulatory [place] [facility] Hospital ing:DC Repository 08/04/2017/08/04/19 [id number] Ambulatory Rud[place] [address] [place] [address] Hospital ing:WC Repository 07/29/2017 [id number] [facility] Repository 07/16/2017/07/16/19 [id number] Ambulatory Rud[place] [facility] ing:OT Repository 07/15/2017 [id number] Ambulatory BMSBuilding:W [place] [facility] Hospital Repository 07/08/2017 [id number] [facility] Repository 07/08/2017/08/04/19 [id number] Ambulatory [place] [facility] Hospital ing:DC Repository 07/07/2017/07/07/19 [id number] Ambulatory [place] [facility] ing:WC Repository 06/29/2017/06/30/19 [id number] Ambulatory [address] Repository 06/18/2017/07/07/19 [id number] Ambulatory [place] Rudy [facility] Hospital ing:DC Repository 06/02/2017/06/06/20 [id number] Ambulatory [place] [facility] ing:WC Repository 05/28/2017/05/28/20 [id number] Ambulatory [address] Repository 05/26/2017/06/06/20 [id number] Ambulatory [place] Rudy [facility] ing:DC Repository PAYERS PAYERS ENCOUNTER GUARANTOR PAYER SUBSCRIBER SOURCE 05/25/2018 DEL A Primary NOT GIVENUNK [place] [id number] Insurance:SELF PAY [address], Number: Effective Repository [place] [phone]: Date:2018-05-07 () 05/17/2018 DEL A Primary DEL A [place] [id number] Insurance:MEDICARE BECKETTDOB: [facility] PART A BPolicy [id number], Number: Repository [place] [address]Ixk: [id number] Date:2018-05-17 () 05/17/2018 Secondary DEL A [place] Insurance:MEDICAIDPol BECKETTDOB: [facility] Number: [id number] Hospital [id number] Repository Date:2018-05-17 05/17/2018 Tertiary NOT GIVENUNK [place] Insurance:SELF PAY [facility] Number: Effective Repository Date:2018-05-17 05/17/2018 DEL A Primary NOT GIVENUNK [place] [id number] Insurance:SELF PAY [address], Number: Effective Repository [place] [phone]: Date:2018-05-17 () 05/16/2018 DEL A Primary DEL A [place] [id number] Insurance:MEDICARE BECKETTDOB: [facility] PART A [facility] [id number], Number: Repository [place] [address]Hzi: [id number] Date:2018-05-16 () 05/16/2018 Secondary DEL A [place] Insurance:MEDICAIDPol BECKETTDOB: [facility] Number: [id number] Hospital [id number] Repository Date:2018-05-16 05/16/2018 Tertiary NOT GIVENUNK [place] Insurance:SELF PAY [facility] Number: Effective Repository Date:2018-05-16 05/11/2018 DEL A Primary DEL A [place] [id number] Insurance:MEDICARE BECKETTDOB: [facility] PART M [facility] [id number], Number: [place]ository [place] [address]Uqp: [id number] Date:2018-05-11 () 05/11/2018 Secondary DEL A [place] Insurance:MEDICAIDPol BECKETTDOB: [facility] ic Number: [id number] Hospital [id number] Repository Date:2018-05-11 05/11/2018 Tertiary NOT GIVENUNK [place] Insurance:SELF PAY [facility] Number: Effective Repository Date:2018-05-11 05/06/2018 DEL A Primary DEL A [place] [id number] Insurance:MEDICARE BECKETTDOB: [facility] PART A [facility] [id number], Number: Repository [place] [address]Nvs: [id number] Date:2018-04-07 () 05/06/2018 Secondary DEL A [place] Insurance:MEDICAIDPol BECKETTDOB: [facility] [facility] icy Number: [id number] [id number] Repository Date:2018-04-07 05/06/2018 Tertiary NOT GIVENUNK [place] Insurance:SELF PAY [facility] Number: Effective Repository Date:2018-04-07 05/05/2018 DEL A Primary DEL A [place] [id number] Insurance:MEDICARE BECKETTDOB: [facility] [id number], Number: [place]ository [place] [id number]: [id number] Date:2018-04-07 () 05/05/2018 Secondary DEL A [place] Insurance:MEDICAIDPol BECKETTDOB: [facility] icy Number: [id number] [facility] [id number] Repository Date:2018-04-07 05/05/2018 Tertiary NOT GIVENUNK [place] Insurance:SELF PAY [facility] Number: Effective Repository Date:2018-05-05 04/27/2018 DEL A Primary DEL A [place] [id number] Insurance:MEDICARE BECKETTDOB: [facility] [id number], Number: [place]ository [place] [id number]: [id number] Date:2018-04-07 () 04/27/2018 Secondary DEL A [place] Insurance:MEDICAIDPol BECKETTDOB: [facility] ic Number: [id number] [facility] [id number] Repository Date:2018-04-07 04/27/2018 Tertiary NOT GIVENUNK [place] Insurance:SELF PAY [facility] Number: Effective Repository Date:2018-04-27 04/26/2018 DEL A Primary NOT GIVENUNK [place] [id number] Insurance:SELF PAY [address], Number: Effective Repository [place] [id number]: Date:2018-04-26 () 04/20/2018 DEL A Primary DEL A Rud[place] [id number] Insurance:MEDICARE BECKETTDOB: [facility] [id number], Number: Repository [place] [id number]: [id number] Date:2018-04-07 () 04/20/2018 Secondary DEL A [place] Insurance:MEDICAIDPol BECKETTDOB: [facility] icy Number: [id number] Hospital [id number] Repository Date:2018-04-07 04/20/2018 Tertiary NOT GIVENUNK [place] Insurance:SELF PAY [facility] Number: Effective Repository Date:2018-04-20 04/18/2018 DEL A Primary DEL A [place] [id number] Insurance:MEDICARE BECKETTDOB: [facility] [id number], Number: [place]ository [place] [id number]: [id number] Date:2018-03-07 () 04/18/2018 Secondary DEL A [place] Insurance:MEDICAIDPol BECKETTDOB: [facility] ic Number: [id number] [facility] [id number] Repository Date:2018-03-07 04/18/2018 Tertiary NOT GIVENUNK [place] Insurance:SELF PAY [facility] Number: Effective Repository Date:2018-04-18 04/14/2018 DEL A Primary DEL A [place] [id number] Insurance:MEDICARE BECKETTDOB: [facility] [id number], Number: [place]ository [place] [id number]: [id number] Date:2018-04-07 () 04/14/2018 Secondary DEL A [place] Insurance:MEDICAIDPol BECKETTDOB: [facility] icy Number: [id number] Hospital [id number] Repository Date:2018-04-07 04/14/2018 Tertiary NOT GIVENUNK [place] Insurance:SELF PAY [facility] Number: Effective Repository Date:2018-04-14 04/13/2018 DEL A Primary DEL A [place] [id number] Insurance:MEDICARE BECKETTDOB: [facility] [id number], Number: Repository [place] [id number]: [id number] Date:2018-04-07 () 04/13/2018 Secondary DEL A [place] Insurance:MEDICAIDPol BECKETTDOB: [facility] icy Number: [id number] [facility] [id number] Repository Date:2018-04-07 04/13/2018 Tertiary NOT GIVENUNK [place] Insurance:SELF PAY [facility] Number: Effective Repository Date:2018-04-13 04/12/2018 DEL A Primary DEL A [place] [id number] Insurance:MEDICARE BECKETTDOB: [facility] [id number], Number: [place] [id number]: [id number] Date:2018-04-07 () 04/12/2018 Secondary DEL A [place] Insurance:MEDICAIDPol BECKETTDOB: [facility] icy Number: [id number] [facility] [id number] Repository Date:2018-04-07 04/12/2018 Tertiary NOT GIVENUNK [place] Insurance:SELF PAY [facility] Number: Effective Repository Date:2018-04-12 04/07/2018 DEL A Primary DEL A [place] [id number] Insurance:MEDICARE BECKETTDOB: [facility] [id number], Number: [place]ository [place] [id number]: [id number] Date:2018-04-07 () 04/07/2018 Secondary DEL A [place] Insurance:MEDICAIDPol BECKETTDOB: [facility] icy Number: [id number] Hospital [id number] Repository Date:2018-04-07 04/07/2018 Tertiary NOT GIVENUNK [place] Insurance:SELF PAY [facility] Number: Effective Repository Date:2018-04-07 04/06/2018 DEL A Primary DEL A [place] [id number] Insurance:MEDICARE BECKETTDOB: [facility] [id number], Number: [place]ository [place] [id number]: [id number] Date:2018-03-07 () 04/06/2018 Secondary DEL A [place] Insurance:MEDICAIDPol BECKETTDOB: [facility] icy Number: [id number] Hospital [id number] Repository Date:2018-03-07 04/06/2018 Tertiary NOT GIVENUNK [place] Insurance:SELF PAY [facility] Number: Effective Repository Date:2018-03-07 04/06/2018 DEL A Primary DEL A [place] [id number] Insurance:MEDICARE BECKETTDOB: [facility] [id number], Number: Repository [place] [id number]: [id number] Date:2018-04-06 () 04/06/2018 Secondary DEL A [place] Insurance:MEDICAIDPol BECKETTDOB: [facility] icy Number: [id number] Hospital [id number] Repository Date:2018-04-06 04/06/2018 Tertiary NOT GIVENUNK [place] Insurance:SELF PAY [facility] Number: Effective Repository Date:2018-04-06 04/04/2018 DEL A Primary DEL A [place] [id number] Insurance:MEDICARE BECKETTDOB: [facility] [id number], Number: [place]ository [place] [id number]: [id number] Date:2018-04-04 () 04/04/2018 Secondary DEL A [place] Insurance:MEDICAIDPol BECKETTDOB: [facility] icy Number: [id number] [facility] [id number] Repository Date:2018-04-04 04/04/2018 Tertiary NOT GIVENUNK [place] Insurance:SELF PAY [facility] Number: Effective Repository Date:2018-04-04 03/31/2018 DEL A Primary NOT GIVENUNK [place] [id number] Insurance:SELF PAY [address], Number: Effective Repository [place] [id number]: Date:2018-02-05 () 03/30/2018 DEL A Primary DEL A [place] [id number] Insurance:MEDICARE BECKETTDOB: [facility] [id number], Number: Repository [place] [id number]: [id number] Date:2018-03-30 () 03/30/2018 Secondary DEL A [place] Insurance:MEDICAIDPol BECKETTDOB: [facility] ic Number: [id number] Hospital [id number] Repository Date:2018-03-30 03/30/2018 Tertiary NOT GIVENUNK [place] Insurance:SELF PAY [facility] Number: Effective Repository Date:2018-03-30 03/22/2018 DEL A Primary NOT GIVENUNK [place] [id number] Insurance:SELF PAY [address], Number: Effective Repository [place] [id number]: Date:2018-03-22 () 03/17/2018 DEL A Primary DEL A [place] [id number] Insurance:MEDICARE BECKETTDOB: [facility] [id number], Number: Repository [place] [id number]: [id number] Date:2018-03-16 () 03/17/2018 Secondary DEL A [place] Insurance:MEDICAIDPol BECKETTDOB: [facility] icy Number: [id number] Hospital [id number] Repository Date:2018-03-16 03/17/2018 Tertiary NOT GIVENUNK [place] Insurance:SELF PAY [facility] Number: Effective Repository Date:2018-03-17 03/16/2018 DEL A Primary DEL A [place] [id number] Insurance:MEDICARE BECKETTDOB: [facility] [id number], Number: [place]ository [place] [id number]: [id number] Date:2018-03-16 () 03/16/2018 Secondary DEL A [place] Insurance:MEDICAIDPol BECKETTDOB: [facility] icy Number: [id number] Hospital [id number] Repository Date:2018-03-16 03/16/2018 Tertiary NOT GIVENUNK [place] Insurance:SELF PAY [facility] Number: Effective Repository Date:2018-03-16 03/14/2018 DEL A Primary DEL A [place] [id number] Insurance:MEDICARE BECKETTDOB: [facility] PART [facility] [id number], Number: [place] [id number]: [id number] Date:2018-03-14 () 03/14/2018 Secondary DEL A [place] Insurance:MEDICAIDPol BECKETTDOB: [facility] ic Number: [id number] Hospital [id number] Repository Date:2018-03-14 03/14/2018 Tertiary NOT GIVENUNK [place] Insurance:SELF PAY [facility] Number: Effective Repository Date:2018-03-14 03/10/2018 DEL A Primary DEL A [place] [id number] Insurance:MEDICARE BECKETTDOB: [facility] [id number], Number: [place]ository [place] [id number]: [id number] Date:2018-03-10 () 03/10/2018 Secondary DEL A [place] Insurance:MEDICAIDPol BECKETTDOB: [facility] ic Number: [id number] Hospital [id number] Repository Date:2018-03-10 03/10/2018 Tertiary NOT GIVENUNK [place] Insurance:SELF PAY [facility] Number: Effective Repository Date:2018-03-10 03/09/2018 DEL A Primary DEL A [place] [id number] Insurance:MEDICARE BECKETTDOB: [facility] PART A [facility] [id number], Number: [place]ository [place] [id number]: [id number] Date:2018-03-09 () 03/09/2018 Secondary DEL A [place] Insurance:MEDICAIDPol BECKETTDOB: [facility] icy Number: [id number] Hospital [id number] Repository Date:2018-03-09 03/09/2018 Tertiary NOT GIVENUNK [place] Insurance:SELF PAY [facility] Number: Effective Repository Date:2018-03-09 03/07/2018 DEL A Primary DEL A [place] [id number] Insurance:MEDICARE BECKETTDOB: [facility] PART A [facility] [id number], Number: [place] [id number]: [id number] Date:2018-03-07 () 03/07/2018 Secondary DEL A [place] Insurance:MEDICAIDPol BECKETTDOB: [facility] ic Number: [id number] [facility] [id number] Repository Date:2018-03-07 03/07/2018 Tertiary NOT GIVENUNK [place] Insurance:SELF PAY [facility] Number: Effective Repository Date:2018-03-07 03/04/2018 DEL A Primary DEL A [place] [id number] Insurance:MEDICARE BECKETTDOB: [facility] PART A [facility] [id number], Number: Repository [place] [id number]: [id number] Date:2018-01-05 () 03/04/2018 Secondary DEL A [place] Insurance:MEDICAIDPol BECKETTDOB: [facility] icy Number: [id number] Hospital [id number] Repository Date:2017-10-06 03/04/2018 Tertiary NOT GIVENUNK [place] Insurance:SELF PAY [facility] Number: Effective Repository Date:2018-02-05 03/03/2018 DEL A Primary DEL A [place] [id number] Insurance:MEDICARE BECKETTDOB: [facility] PART [facility] [id number], Number: Repository [place] [id number]: [id number] Date:2018-01-05 () 03/03/2018 Secondary DEL A [place] Insurance:MEDICAIDPol BECKETTDOB: [facility] icy Number: [id number] [facility] [id number] Repository Date:2017-10-06 03/03/2018 Tertiary NOT GIVENUNK [place] Insurance:SELF PAY [facility] Number: Effective Repository Date:2018-03-03 03/02/2018 DEL A Primary DEL A [place] [id number] Insurance:MEDICARE BECKETTDOB: [facility] PART [facility] [id number], Number: [place]ository [place] [id number]: [id number] Date:2018-01-05 () 03/02/2018 Secondary DEL A [place] Insurance:MEDICAIDPol BECKETTDOB: [facility] ic Number: [id number] Hospital [id number] Repository Date:2017-10-06 03/02/2018 Tertiary NOT GIVENUNK [place] Insurance:SELF PAY [facility] Number: Effective Repository Date:2018-03-02 02/24/2018 DEL A Primary DEL A [place] [id number] Insurance:MEDICARE BECKETTDOB: [facility] PART [facility] [id number], Number: [place] [id number]: [id number] Date:2018-01-05 () 02/24/2018 Secondary DEL A [place] Insurance:MEDICAIDPol BECKETTDOB: [facility] ic Number: [id number] Hospital [id number] Repository Date:2017-10-06 02/24/2018 Tertiary NOT GIVENUNK [place] Insurance:SELF PAY [facility] Number: Effective Repository Date:2018-02-24 02/21/2018 EDL A Primary DEL A [place] [id number] Insurance:MEDICARE BECKETTDOB: [facility] PART [facility] [id number], Number: Repository [place] [id number]: [id number] Date:2018-01-05 () 02/21/2018 Secondary DEL A [place] Insurance:MEDICAIDPol BECKETTDOB: [facility] icy Number: [id number] [facility] [id number] Repository Date:2017-10-06 02/21/2018 Tertiary NOT GIVENUNK [place] Insurance:SELF PAY [facility] Number: Effective Repository Date:2018-02-21 02/17/2018 DEL A Primary DEL A [place] [id number] Insurance:MEDICARE BECKETTDOB: [facility] PART [facility] [id number], Number: [place] [id number]: [id number] Date:2018-01-05 () 02/17/2018 Secondary DEL A [place] Insurance:MEDICAIDPol BECKETTDOB: [facility] ic Number: [id number] Hospital [id number] Repository Date:2017-10-06 02/17/2018 Tertiary NOT GIVENUNK [place] Insurance:SELF PAY [facility] Number: Effective Repository Date:2018-02-17 02/16/2018 DEL A Primary DEL A [place] [id number] Insurance:MEDICARE BECKETTDOB: [facility] PART [facility] [id number], Number: Repository [place] [id number]: [id number] Date:2018-01-05 () 02/16/2018 Secondary DEL A [place] Insurance:MEDICAIDPol BECKETTDOB: [facility] ic Number: [id number] Hospital [id number] Repository Date:2017-10-06 02/16/2018 Tertiary NOT GIVENUNK [place] Insurance:SELF PAY [facility] Number: Effective Repository Date:2018-02-16 02/14/2018 DEL A Primary DEL A [place] [id number] Insurance:MEDICARE BECKETTDOB: [facility] PART [facility] [id number], Number: Repository [place] [id number]: [id number] Date:2018-01-05 () 02/14/2018 Secondary DEL A [place] Insurance:MEDICAIDPol BECKETTDOB: [facility] icy Number: [id number] Hospital [id number] Repository Date:2017-10-06 02/14/2018 Tertiary NOT GIVENUNK [place] Insurance:SELF PAY [facility] Number: Effective Repository Date:2018-02-14 02/09/2018 DEL A Primary DEL A [place] [id number] Insurance:MEDICARE BECKETTDOB: [facility] PART [facility] [id number], Number: [place] [id number]: [id number] Date:2018-01-05 () 02/09/2018 Secondary DEL A [place] Insurance:MEDICAIDPol BECKETTDOB: [facility] ic Number: [id number] Hospital [id number] Repository Date:2017-10-06 02/09/2018 Tertiary NOT GIVENUNK [place] Insurance:SELF PAY [facility] Number: Effective Repository Date:2018-02-09 02/03/2018 DEL A Primary DEL A [place] [id number] Insurance:MEDICARE BECKETTDOB: [facility] PART [facility] [id number], Number: [place]ository [place] [address]Xib: [id number] Date:2018-01-05 () 02/03/2018 Secondary DEL A [place] Insurance:MEDICAIDPol BECKETTDOB: [facility] ic Number: [id number] Hospital [id number] Repository Date:2017-10-06 02/03/2018 Tertiary NOT GIVENUNK [place] Insurance:SELF PAY [facility] Number: Effective Repository Date:2018-01-05 02/03/2018 DEL A Primary DEL A [place] [id number] Insurance:MEDICARE BECKETTDOB: [facility] PART [facility] [id number], Number: Repository [place] [id number]: [id number] Date:2018-01-05 () 02/03/2018 Secondary DEL A [place] Insurance:MEDICAIDPol BECKETTDOB: [facility] icy Number: [id number] Hospital [id number] Repository Date:2017-10-06 02/03/2018 Tertiary NOT GIVENUNK [place] Insurance:SELF PAY [facility] Number: Effective Repository Date:2018-02-03 01/24/2018 DEL A Primary DEL A [place] [id number] Insurance:MEDICARE BECKETTDOB: [facility] PART [facility] [id number], Number: Repository [place] [id number]: [id number] Date:2018-01-05 () 01/24/2018 Secondary DEL A [place] Insurance:MEDICAIDPol BECKETTDOB: [facility] ic Number: [id number] Hospital [id number] Repository Date:2017-10-06 01/24/2018 Tertiary NOT GIVENUNK [place] Insurance:SELF PAY [facility] Number: Effective Repository Date:2018-01-24 01/20/2018 DEL A Primary DEL A [place] [id number] Insurance:MEDICARE BECKETTDOB: [facility] [id number], Number: [place]ository [place] [id number]: [id number] Date:2017-12-05 () 01/20/2018 Secondary DEL A [place] Insurance:MEDICAIDPol BECKETTDOB: [facility] ic Number: [id number] Hospital [id number] Repository Date:2017-04-07 01/20/2018 Tertiary NOT GIVENUNK [place] Insurance:SELF PAY [facility] Number: Effective Repository Date:2017-12-05 12/29/2017 DEL A Primary DEL A [place] [id number] Insurance:ANTHEM BECKETTDOB: [facility] MEDICARE SENIOR [id number] Number: Repository [place] [id number]: [id number] Date:8448-58-23VY BOX () [id number] [place] [address]DV: 12/29/2017 Secondary DEL A [place] Insurance:MEDICAIDPol BECKETTDOB: [facility] icy Number: [id number] Hospital [id number] Repository Date:2017-10-06 12/29/2017 Tertiary NOT GIVENUNK [place] Insurance:SELF PAY [facility] Number: Effective Repository Date:2017-12-05 12/23/2017 DEL A Primary DEL A [place] [id number] Insurance:ANTHEM BECKETTDOB: [facility] MEDICARE SENIOR [id number] Number: [place]ository [place] [id number]: [id number] Date:8412-13-80FM BOX () [id number] [place] [address]MJ: 12/23/2017 Secondary DEL A [place] Insurance:MEDICAIDPol BECKETTDOB: [facility] icy Number: [id number] Hospital [id number] Repository Date:2017-10-06 12/23/2017 Tertiary NOT GIVENUNK [place] Insurance:SELF PAY [facility] Number: Effective Repository Date:2017-12-23 12/16/2017 DEL A Primary DEL A [place] [id number] Insurance:ANTHEM BECKETTDOB: [facility] MEDICARE SENIOR [id number] Number: [place]ository [place] [id number]: [id number] Date:5130-57-30YC [address]OX () [id number] [place] [address]UH: 12/16/2017 Secondary DEL A [place] Insurance:MEDICAIDPol BECKETTDOB: [facility] icy Number: [id number] Hospital [id number] Repository Date:2017-12-16 12/16/2017 Tertiary NOT GIVENUNK [place] Insurance:SELF PAY [facility] Number: Effective Repository Date:2017-12-16 12/13/2017 DEL A Primary DEL A [place] [id number] Insurance:ANTHEM BECKETTDOB: [facility] MEDICARE SENIOR [id number] Number: Repository [place] [id number]: [id number] Date:9853-33-23TM BOX () [id number] [place] [address]OF: 12/13/2017 Secondary DEL [place] Insurance:MEDICAIDPol BECKETTDOB: [facility] ic Number: [id number] Hospital [id number] Repository Date:2017-12-13 12/13/2017 Tertiary NOT GIVENUNK [place] Insurance:SELF PAY [facility] Number: Effective Repository Date:2017-12-13 12/02/2017 DEL A Primary DEL A [place] [id number] Insurance:ANTHEM DENISDOB: [facility] MEDICARE SENIOR [id number] Number: Repository [place] [id number]: [id number] Date:1560-76-55NP BOX () [id number], [place] [address]RY: 12/02/2017 Secondary DEL A [place] Insurance:MEDICAIDPol BECKETTDOB: [facility] ic Number: [id number] Hospital [id number] Repository Date:2017-04-07 12/02/2017 Tertiary NOT GIVENUNK [place] Insurance:SELF PAY [facility] Number: Effective Repository Date:2017-11-05 12/02/2017 DEL A Primary DEL [place] [id number] Insurance:ANTHEM BECKETTDOB: [facility] MEDICARE SENIOR [id number] Number: Repository [place] [address]Lek: [id number] Date:5457-58-11AT [address]OX () [address]6480VLXXCTF, [place] [address]HI: 12/02/2017 Secondary DEL A [place] Insurance:MEDICAIDPol BECKETTDOB: Community icy Number: [id number] Hospital [id number] Repository Date:2017-11-15 12/02/2017 Tertiary NOT GIVENUNK [place] Insurance:SELF PAY [facility] Number: Effective Repository Date:2017-11-15 12/01/2017 DEL A Primary DEL A [place] [id number] Insurance:ANTHEM BECKETTDOB: [facility] MEDICARE SENIOR [id number] Number: [place]ository [place] [id number]: [id number] Date:4546-85-52IZ [address]OX () [address]34[address]OMPYTVB, [place] [address]NL: 12/01/2017 Secondary DEL A [place] Insurance:MEDICAIDPol BECKETTDOB: [facility] icy Number: [id number] Hospital [id number] Repository Date:2017-10-06 12/01/2017 Tertiary NOT GIVENUNK [place] Insurance:SELF PAY [facility] Number: Effective Repository Date:2017-11-05 11/04/2017 DEL A Primary DEL A [place] [id number] Insurance:ANTHEM BECKETTDOB: [facility] MEDICARE SENIOR [id number] Number: Repository [place] [address]Nmg: [id number] [phone] Date:5582-80-00PH [address] () [address]KYIMAVR, [place] [address]YD: 11/04/2017 Secondary DEL A [place] Insurance:MEDICAIDPol BECKETTDOB: [facility] icy Number: [id number] [facility] [id number] Repository Date:2017-11-04 11/04/2017 Tertiary NOT GIVENUNK [place] Insurance:SELF PAY [facility] Number: Effective Repository Date:2017-11-04 11/04/2017 DEL A Primary DEL A Rudy [id number] Insurance:NI YOONB: [facility] [address] MEDICARE SENIOR [id number] Number: Repository [place] [address]Zzn: [id number] [phone] Date:7700-29-96JF [address] () 768044CEFRKLM, [place] [address]RX: 11/04/2017 Secondary DEL A [place] [facility] BECKETTDOB: [facility] Number: [id number] Hospital [id number] Repository Date:2017-04-07 11/04/2017 Tertiary NOT GIVENUNK [place] Insurance:SELF PAY [facility] Number: Effective Repository Date:2017-09-05 11/03/2017 DEL A Primary DEL A Rud[place] [id number] Insurance:NI YOONB: [facility] [address] MEDICARE SENIOR [id number] Number: Repository [place] [id number]: [id number] [phone] Date:1919-08-14XP [address] -[address] () 124495PKDMESX, [place] [address]KB: 11/03/2017 Secondary NOT GIVENUNK [place] Insurance:SELF PAY [facility] Number: Effective Repository Date:2017-10-06 10/29/2017 DEL A Primary DEL A Rudy [id number] Insurance:NI YOONB: [facility] [address] MEDICARE SENIOR [id number] Number: Repository [place] [address]Rcl: [id number] [phone] Date:2498-78-24NA [address] -[address] () 062009AQOFZDS, [place] [address]XH: 10/29/2017 Secondary NOT GIVENUNK [place] Insurance:SELF PAY [facility] Number: Effective Repository Date:2017-10-01 10/29/2017 DEL A Primary DEL A [place] [id number] Insurance:ANTHURIAH YOONB: [facility] [address] MEDICARE SENIOR [id number] Number: Repository [place] [id number]: [id number] [phone] Date:5212-77-57VV B[address] -[address] () 262136TAXWHVH [place] [address]VD: 10/29/2017 Secondary NOT GIVENUNK [place] Insurance:SELF PAY [facility] Number: Effective Repository Date:2017-10-20 10/29/2017 DEL A Primary DEL A [place] [id number] Insurance:ANTHURIAH YOONB: [facility] [address] MEDICARE SENIOR [id number] Number: Repository [place] [address]Sfk: [id number] [phone] Date:7115-95-58LQ [address] -[address] () 720318EKBDVWT, [place] [address]TP: 10/29/2017 Secondary DEL A [place] Insurance:MEDICAIDPol BECKETTDOB: [facility] Number: [id number] Hospital [id number] Repository Date:2017-10-14 10/29/2017 Tertiary NOT GIVENUNK Rud[place] Insurance:SELF PAY [facility] Number: Effective Repository Date:2017-10-14 10/20/2017 DEL A Primary DEL A [place] [id number] Insurance:ANTHEM DENISDOB: [facility] [address] MEDICARE SENIOR [id number] Number: Repository [place] [address]Iey: [id number] [phone] Date:2646-48-19DL [address] -[address] () 190525VRNQTDZ, [place] [address]EX: 10/20/2017 Secondary NOT GIVENUNK [place] Insurance:SELF PAY [facility] Number: Effective Repository Date:2017-10-20 10/14/2017 DEL A Primary DEL A [place] [id number] Insurance:ANTHURIAH BARRIOSDOB: [facility] [address] MEDICARE SENIOR [id number] Number: Repository [place] [address]Owe: [id number] [phone] Date:4276-17-03BU [address] -[address] (HP) 800799KNGQWEE, [place] [address]MS: 10/14/2017 Secondary DEL A Rudy Insurance:MEDICAIDPol BECKETTDOB: [facility] icy Number: [id number] Hospital [id number] Repository Date:2017-10-06 10/14/2017 Tertiary NOT GIVENUNK [place] Insurance:SELF PAY [facility] Number: Effective Repository Date:2017-10-06 10/11/2017 DEL Primary DEL [facility] [id number] Insurance:ANTHEM BECKETTUNK [place] [address] MEDICARE ALL ADV Repository [address] [place] [address] [facility] Number: [id number]: [id number] [phone] (HP) Date:7155-85-56OS [address] [place] [address]YU: 10/11/2017 Secondary DEL [facility] Insurance:MEDICAID OF BECKETTUNK [place] [employer] Number: Repository [id number] Date:4142-81-82LH [address]COLMayslick, [place] [address]QY: 10/01/2017 DEL A Primary DEL A Rud[place] [id number] Insurance:NI YOONB: [facility] [address] MEDICARE SENIOR [id number] Number: [place]ository [place] [id number]: [id number] [phone] Date:3166-17-88WM [address] -[address] (HP) 589464HGBRIGC [place] [address]HI: 10/01/2017 Secondary DEL A [place] Insurance:MEDICAIDPol [facility] Number: [id number] Hospital [id number] Repository Date:2017-10-01 10/01/2017 Tertiary NOT GIVENUNK [place] Insurance:SELF PAY [facility] Number: Effective Repository Date:2017-10-01 09/15/2017 DEL A Primary DEL A [place] [id number] Insurance:NI BARRIOSDOB: [facility] [address] MEDICARE SENIOR [id number] Number: Repository [place] [address]Djm: [id number] [phone] Date:3955-84-67GZ [address] -[address] () 549608NMDWQPE, [place] [address]HW: 09/15/2017 Secondary DEL A [place] Insurance:MEDICAIDPol BECKETTDOB: [facility] Number: [id number] Hospital [id number] Repository Date:2017-05-07 09/15/2017 Tertiary NOT GIVENUNK [place] Insurance:SELF PAY [facility] Number: Effective Repository Date:2017-09-05 09/14/2017 DEL A Primary DEL A [place] [id number] Insurance:NI YOONB: [facility] [address] MEDICARE SENIOR [id number] Number: Repository [place] [address]Dcx: [id number] [phone] Date:0571-86-32UO [address] -[address] () 868107IZWPWYR, [place] [address]KQ: 09/14/2017 Secondary DEL A [place] Insurance:MEDICAIDPol BECKETTDOB: [facility] ic Number: [id number] Hospital [id number] Repository Date:2017-09-08 09/14/2017 Tertiary NOT GIVENUNK [place] Insurance:SELF PAY [facility] Number: Effective Repository Date:2017-09-08 09/07/2017 DEL A Primary DEL A [place] [id number] Insurance:ANTHURIAH BARRIOSDOB: [facility] [address] MEDICARE SENIOR [id number] Number: Repository [place] [id number]: [id number] [phone] Date:9339-93-11MY [address] -[address] () 245002SPPUOUX, [place] [address]HX: 09/07/2017 Secondary DEL A Rud[place] Insurance:MEDICAIDPol BECKETTDOB: Community icy Number: [id number] Hospital [id number] Repository Date:2017-09-07 09/07/2017 Tertiary NOT GIVENUNK [place] Insurance:SELF PAY [facility] Number: Effective Repository Date:2017-09-07 09/02/2017 DEL A Primary DEL A [place] [id number] Insurance:ANTHEM BECKETTDOB: [facility] [address] MEDICARE SENIOR [id number] Number: Repository [place] [address]Aea: [id number] [phone] Date:0371-04-61NI [address] -[address] () 888331HHPIYMP, [place] [address]FA: 09/02/2017 Secondary DEL A [place] Insurance:MEDICAIDPol BECKETTDOB: [facility] icy Number: [id number] Hospital [id number] Repository Date:2017-09-01 09/02/2017 Tertiary NOT GIVENUNK [place] Insurance:SELF PAY [facility] Number: Effective Repository Date:2017-09-02 09/01/2017 DEL A Primary DEL A [place] [id number] Insurance:ANTHEM BECKETTDOB: [facility] [address] MEDICARE SENIOR [id number] Number: Repository [place] [address]Pug: [id number] [phone] Date:6920-20-73AY [address] -[address] () 937818ZCOYSQI, [place] [address]XF: 09/01/2017 Secondary DEL A [place] Insurance:MEDICAIDPol BECKETTDOB: Community icy Number: [id number] Hospital [id number] Repository Date:2017-09-01 09/01/2017 Tertiary NOT GIVENUNK [place] Insurance:SELF PAY [facility] Number: Effective Repository Date:2017-09-01 09/01/2017 DEL A Primary DEL A [place] [id number] Insurance:ANTHEM BECKSKYDOB: [facility] [address] MEDICARE SENIOR [id number] Number: Repository [place] [address]Euk: [id number] [phone] Date:5623-82-30DL BOX () 209627QLVHXVO[address] [place] [address]QF: 09/01/2017 Secondary DEL A [place] Insurance:MEDICAIDPol BECKETTDOB: [facility] icy Number: [id number] Hospital [id number] Repository Date:2017-09-01 09/01/2017 Tertiary NOT GIVENUNK [place] Insurance:SELF PAY [facility] Number: Effective Repository Date:2017-09-01 09/01/2017 DEL A Primary DEL A [place] [id number] Insurance:ANTHEM DENISDOB: [facility] [address] MEDICARE SENIOR [id number] Number: Repository [place] [address]Pkw: [id number] [phone] Date:4010-30-18ZH [address] -[address] () 546483ZDLXKIX, [place] [address]OJ: 09/01/2017 Secondary DEL A [place] Insurance:MEDICAIDPol BECKETTDOB: [facility] icy Number: [id number] Hospital [id number] Repository Date:2017-09-01 09/01/2017 Tertiary NOT GIVENUNK [place] Insurance:SELF PAY [facility] Number: Effective Repository Date:2017-09-01 09/01/2017 DEL A Primary DEL A [place] [id number] Insurance:ANTHEM BECKETTDOB: [facility] [address] MEDICARE SENIOR [id number] Number: Repository [place] [address]Tfy: [id number] [phone] Date:5558-73-09EM [address] -[address] () 393777MGJLJMN, [place] [address]EY: 09/01/2017 Secondary DEL A [place] Insurance:MEDICAIDPol BECKETTDOB: Community icy Number: [id number] Hospital [id number] Repository Date:2017-09-01 09/01/2017 Tertiary NOT GIVENUNK [place] Insurance:SELF PAY [facility] Number: Effective Repository Date:2017-09-01 09/01/2017 DEL A Primary DEL A [place] [id number] Insurance:ANTHEM BECKETTDOB: [facility] [address] MEDICARE SENIOR [id number] Number: Repository [place] [address]Ayt: [id number] [phone] Date:7601-80-25KE [address] -[address] () 361166NIQHERS, [place] [address]KC: 09/01/2017 Secondary DEL A [place] Insurance:MEDICAIDPol BECKETTDOB: Community icy Number: [id number] Hospital [id number] Repository Date:2017-09-01 09/01/2017 Tertiary NOT GIVENUNK [place] Insurance:SELF PAY [facility] Number: Effective Repository Date:2017-09-01 09/01/2017 DEL A Primary DEL A [place] [id number] Insurance:ANTHEM BECKETTDOB: [facility] [address] MEDICARE SENIOR [id number] Number: Repository [place] [address]Bfr: [id number] [phone] Date:3183-33-12LG [address] -[address] () 619235DUBWIVU, [place] [address]WS: 09/01/2017 Secondary DEL A [place] Insurance:MEDICAIDPol BECKETTDOB: Community icy Number: [id number] Hospital [id number] Repository Date:2017-09-01 09/01/2017 Tertiary NOT GIVENUNK [place] Insurance:SELF PAY [facility] Number: Effective Repository Date:2017-09-01 09/01/2017 DEL A Primary DEL A Rud[place] [id number] Insurance:NI YOONB: [facility] [address] MEDICARE SENIOR [id number] Number: [place]ository [place] [id number]: [id number] [phone] Date:2725-25-05GO [address] () 796557OJLVECE[address] [place] [address]TF: 09/01/2017 Secondary DEL A [place] Insurance:MEDICAIDPol BECKETTDOB: [facility] icy Number: [id number] Hospital [id number] Repository Date:2017-09-01 09/01/2017 Tertiary NOT GIVENUNK [place] Insurance:SELF PAY [facility] Number: Effective Repository Date:2017-09-01 09/01/2017 DEL A Primary DEL A [place] [id number] Insurance:NI YOONB: [facility] [address] MEDICARE SENIOR [id number] Number: Repository [place] [address]Aku: [id number] [phone] Date:6099-17-54CV [address] -[address] () 082248QDSYEXZ[address] [place] [address]QA: 09/01/2017 Secondary DEL A [place] Insurance:MEDICAIDPol BECKETTDOB: [facility] icy Number: [id number] Hospital [id number] Repository Date:2017-09-01 09/01/2017 Tertiary NOT GIVENUNK [place] Insurance:SELF PAY [facility] Number: Effective Repository Date:2017-09-01 09/01/2017 Del Primary Del [place] [id number] Insurance:ANTHURIAH BarriosDOB: [facility] [address] MEDICARE SENIOR [id number] Number: Repository [place] [address]Yid: [id number] [phone] Date:4411-99-00SX [address] -[address] () 230785LZOYRVU[address] [place] [address]HL: 09/01/2017 Secondary Del [place] Insurance:MEDICAIDPol BeckettDOB: Community icy Number: [id number] Hospital [id number] Repository Date:2017-05-07 09/01/2017 Tertiary NOT GIVENUNK [place] Insurance:SELF PAY [facility] Number: Effective Repository Date:2017-08-05 08/17/2017 DEL A Primary DEL A [place] [id number] Insurance:ANTHEM BECKETTDOB: [facility] [address] MEDICARE SENIOR [id number] Number: Repository [place] [address]Cgt: [id number] [phone] Date:5704-50-90MM B[address] -[address] () 013966VINXEUF, [place] [address]LN: 08/17/2017 Secondary DEL A [place] Insurance:MEDICAIDPol BECKETTDOB: Community icy Number: [id number] Hospital [id number] Repository Date:2017-04-07 08/17/2017 Tertiary NOT GIVENUNK [place] Insurance:SELF PAY [facility] Number: Effective Repository Date:2017-08-05 08/04/2017 Del Primary Del [place] [id number] Insurance:ANTHEM BeckettDOB: [facility] [address] MEDICARE SENIOR [id number] Number: Repository [place] [address]Lgt: [id number] [phone] Date:9594-83-84ZB BOX -[address] () 221835NXMTGNS, [place] [address]OC: 08/04/2017 Secondary Del [place] Insurance:MEDICAIDPol BeckettDOB: Community icy Number: [id number] Hospital [id number] Repository Date:2017-05-07 08/04/2017 Tertiary NOT GIVENUNK [place] Insurance:SELF PAY [facility] Number: Effective Repository Date:2017-07-08 07/29/2017 Del Primary Del [place] [id number] Insurance:ANTHEM BeckettDOB: [facility] [address] MEDICARE SENIOR [id number] Number: [place]ository [place] [id number]: [id number] [phone] Date:1966-86-71DU B[address] -[address] () 063701OZGXENF [place] [address]YY: 07/29/2017 Secondary Del [place] Insurance:MEDICAIDPol BeckettDOB: [facility] icy Number: [id number] Hospital [id number] Repository Date:2017-07-21 07/29/2017 Tertiary NOT GIVENUNK [place] Insurance:SELF PAY [facility] Number: Effective Repository Date:2017-07-21 07/16/2017 Del Primary Del [place] [id number] Insurance:ANTHEM BeckettDOB: [facility] [address] MEDICARE SENIOR [id number] Number: [place]ository [place] [address]Zcp: [id number] [phone] Date:1162-89-40ZH [address] -[address] () 904431TPOGJEF [place] [address]QD: 07/16/2017 Secondary Del [place] Insurance:MEDICAIDPol BeckettDOB: [facility] ic Number: [id number] Hospital [id number] Repository Date:2017-07-08 07/16/2017 Tertiary NOT GIVENUNK [place] Insurance:SELF PAY [facility] Number: Effective Repository Date:2017-07-08 07/15/2017 Del Primary Del [place] [id number] Insurance:ANTHEM BeckettDOB: [facility] [address] MEDICARE SENIOR [id number] Number: [place]ository [place] [address]Khb: [id number] [phone] Date:1358-49-82LQ B[address] -[address] () 153976SXEZPNA, [place] [address]GR: 07/15/2017 Secondary Del [place] Insurance:MEDICAIDPol BeckettDOB: Community ic Number: [id number] Hospital [id number] Repository Date:2017-05-07 07/15/2017 Tertiary NOT GIVENUNK [place] Insurance:SELF PAY [facility] Number: Effective Repository Date:2017-07-15 07/08/2017 Del Primary Del [place] [id number] Insurance:ANTHEM BeckettDOB: [facility] [address] MEDICARE SENIOR [id number] Number: [place]ository [place] [address]Tcd: [id number] [phone] Date:2627-57-81VP [address] -[address] () 562531KLFKBIQ, [place] [address]WC: 07/08/2017 Secondary Del [place] Insurance:MEDICAIDPol BeckettDOB: [facility] ic Number: [id number] Hospital [id number] Repository Date:2017-07-08 07/08/2017 Tertiary NOT GIVENUNK [place] Insurance:SELF PAY [facility] Number: Effective Repository Date:2017-07-08 07/08/2017 Del Primary Del [place] [id number] Insurance:ANTHEM BeckettDOB: [facility] [address] MEDICARE SENIOR [id number] Number: Repository [place] [address]Hul: [id number] Date:3284-64-62NB BOX () 293614QUUYLHM, [place] [address]LB: 07/08/2017 Secondary Del Rud[place] Insurance:MEDICAIDPol BeckettDOB: [facility] ic Number: [id number] Hospital [id number] Repository Date:2017-04-07 07/08/2017 Tertiary NOT GIVENUNK [place] Insurance:SELF PAY [facility] Number: Effective Repository Date:2017-07-08 07/07/2017 Del Primary Del [place] [id number] Insurance:ANTHEM BeckettDOB: [facility] [address] MEDICARE SENIOR [id number] Number: Repository [place] [address]Qdt: [id number] Date:7030-17-33MR BOX () 349360RVXOTID, [place] [address]XH: 07/07/2017 Secondary Del Rud[place] Insurance:MEDICAIDPol BeckettDOB: Community icy Number: [id number] Hospital [id number] Repository Date:2017-05-07 07/07/2017 Tertiary NOT GIVENUNK [place] Insurance:SELF PAY [facility] Number: Effective Repository Date:2017-06-07 06/18/2017 Del Primary Del [place] [id number] Insurance:ANTHEM BeckettDOB: [facility] [address] MEDICARE SENIOR [id number] Number: [place]ository [place] [id number]: [id number] Date:7080-02-90VT BOX () 835344UDHUJTZ, [place] [address]GD: 06/18/2017 Secondary Del [place] Insurance:MEDICAIDPol BeckettDOB: [facility] icy Number: [id number] Hospital [id number] Repository Date:2017-04-07 06/18/2017 Tertiary NOT GIVENUNK Rud[place] Insurance:SELF PAY [facility] Number: Effective Repository Date:2017-06-07 06/02/2017 Del Primary Del [place] [id number] Insurance:ANTHEM BeckettDOB: [facility] [address] MEDICARE SENIOR [id number] Number: [place]ository [place] [address]Qgb: [id number] Date:3405-31-56FX BOX () 657165BPXCVVF, [place] [address]TF: 06/02/2017 Secondary Del [place] Insurance:MEDICAIDPol BeckettDOB: Community icy Number: [id number] Hospital [id number] Repository Date:2017-05-07 06/02/2017 Tertiary NOT GIVENUNK [place] Insurance:SELF PAY [facility] Number: Effective Repository Date:2017-05-07 05/26/2017 Del Primary Del [place] [id number] Insurance:ANTHEM BeckettDOB: Community [facility] MEDICARE SENIOR [id number] Hospital [facility] Number: Repository [place] [address]Wpu: [id number] Date:3811-81-61CR [address], [place] [address]WK: 05/26/2017 Secondary Del Rud[place] Insurance:MEDICAIDPol BeckettDOB: Community icy Number: [id number] Hospital [id number] Repository Date:2017-04-07 05/26/2017 Tertiary NOT GIVENUNK [place] Insurance:SELF PAY [facility] Number: Effective Repository Date:2017-05-09
== END 2018-06-06 23:59 ==
LOC: WC 10:00
PROVIDERS: Family Provider Family Medicine Geriatric Medicine; PCP Family Medicine Geriatric Medicine; Visit Provider Podiatrist
DX: E11.621 Type 2 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with foot ulcer (principal); E11.42 Type 2 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with diabetic polyneuropathy; L97.512 Non-pressure chronic ulcer of other part of right foot with fat layer exposed; L97.412 Non-pressure chronic ulcer of right heel and midfoot with fat layer exposed; L97.822 Non-pressure chronic ulcer of other part of left lower leg with fat layer exposed; I89.0 Lymphedema, not elsewhere classified; I87.2 Venous insufficiency (chronic) (peripheral); E66.01 Morbid (severe) obesity due to excess calories; E11.65 Type 2 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with hyperglycemia; E11.22 Type 2 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with diabetic chronic kidney disease; I12.9 Hypertensive chronic kidney disease with stage 1 through stage 4 chronic kidney disease, or unspecified chronic kidney disease; N18.9 Chronic kidney disease, unspecified; Z71.3 Dietary counseling and surveillance; T87.89 Other complications of amputation stump; Y83.8 Other surgical procedures as the cause of abnormal reaction of the patient, or of later complication, without mention of misadventure at the time of the procedure
CPT/HCPCS: 11042; 15275; 29581; 82962; 99183; Q4160; G0277

== ENCOUNTER → 2018-06-29 14:49 | Outpatient (CLI) | payer MEDICARE, MEDICAID, SELFPAY ==
[2018-06-29 17:23] LABS: Absolute Neutrophil Count 7.3 X10^3/uL (2.0-7.7); Basophil# 0.02 X10^3/uL; Basophil% 0.2 % (0-1); Hematocrit 31.8 % (40-54); Hemoglobin 9.7 g/dl (13.0-16.5); Lymphocyte % 15.2 % (19-41); Mean Corp Hgb Conc 30.5 g/gl (32-36); Mean Corpuscular Hgb 27.5 pg (27.0-32.0); Mean Corpuscular Volume 90.1 fL (80-94); Mean Platelet Vol. 11.3 fl (6.2-12.0); Monocyte# 0.72 X10^3/uL; Monocyte% 7.3 % (0-10); Neutrophil # 7.32 X10^3/uL (2.7-7.7); Platelet Count 185 K/mm3 (150-450); RBC Distribution Width CV 16.1 % (11.6-14.6); RBC Distribution Width SD 51.4 fl (35.1-43.9); Red Blood Count 3.53 M/mm3 (4.6-6.2); White Blood Count 9.9 K/mm3 (4.4-11.0)
[2018-06-29 17:34] LABS: POSITIVE COUNT NO; POSITIVE DIFFERENTIAL NO; POSITIVE MORPHOLOGY NO
[2018-06-29 17:43] LABS: Vitamin D,25 Hydroxy 70.8 ng/mL (29.95-100.01)
[2018-06-29 17:45] LABS: ALB/GLOB Ratio 0.6 RATIO (0.9-2.4); AST(SGOT) 22 U/L (15-37); Alanine Aminotransfer ALT/SGPT 36 U/L (16-61); Albumin, Serum 2.8 g/dL (3.2-5.0); Alkaline Phosphatase 101 U/L (45-117); Anion Gap 10 (5-15); BUN 48 mg/dL (7-18); BUN/Creat Ratio 25.8 RATIO (10-20); Calcium,Total 8.6 mg/dL (8.5-10.1); Chloride 105 mmol/L (98-107); Creatinine, Serum 1.86 mg/dL (0.70-1.30); EST Glomerular Filtration Rate 40 mL/min (>60); Est Glom Filt Rate - Afr Amer 48 mL/min (>60); Globulin 4.7 g/dL (2.2-4.2); Glucose 246 mg/dL (74-106); Potassium 4.6 mmol/L (3.5-5.1); Protein, Total 7.5 g/dL (6.4-8.2); Sodium Level 141 mmol/L (136-145); Thyroid Stim Hormone (TSH) 2.58 uIU/mL (0.358-3.74)
--- OUTSIDE RECORDS SUMMARY | 2018-08-31 16:50 | XMS RPT_ITS ---
:1960 Author Organization OHIP Support Name Relationship Address Phone D Unavailable Unavailable Unavailable DOYLE, JULIUS Unavailable [address] + [place] [address] D Unavailable Unavailable Unavailable DOYLE, JULIUS Unavailable [address] + [place] [address] D Unavailable Unavailable Unavailable DOYLE, JULIUS Unavailable [address] + [place] [address] D Unavailable Unavailable Unavailable DOYLE, JULIUS Unavailable [address] + [place] [address] D Unavailable Unavailable Unavailable DOYLE, JULIUS Unavailable [address] + [place] [address] D Unavailable Unavailable Unavailable DOYLE, JULIUS Unavailable [address] + [place] [address] D Unavailable Unavailable Unavailable DOYLE, JULIUS Unavailable [address] + [place] [address] D Unavailable Unavailable Unavailable DOYLE, JULIUS Unavailable [address] + [place] [address] D Unavailable Unavailable Unavailable ODYLE, JULIUS Unavailable [address] + [place] [address] D Unavailable Unavailable Unavailable DOYLE, JULIUS Unavailable [address] + [place] [address] D Unavailable Unavailable Unavailable DOYLE, JULIUS Unavailable [address] + [place] [address] D Unavailable Unavailable Unavailable DOYLE, JULIUS Unavailable [address] + [place] [address] D Unavailable Unavailable Unavailable DOYLE, JULIUS Unavailable [address] + [place] [address] D Unavailable Unavailable Unavailable DOYLE, JULIUS Unavailable [address] + [place] [address] D Unavailable Unavailable Unavailable DOYLE, JULIUS Unavailable [address] + [place] [address] D Unavailable Unavailable Unavailable DOYLE, JULIUS Unavailable [address] + [place] [address] D Unavailable Unavailable Unavailable DOYLE, JULIUS Unavailable [address] + [place] [address] D Unavailable Unavailable Unavailable DOYLE, JULIUS Unavailable [address] + [place] [address] D Unavailable Unavailable Unavailable DOYLE, JULIUS Unavailable [address] + [place] [address] D Unavailable Unavailable Unavailable DOYLE, JULIUS Unavailable [address] + [place] [address] D Unavailable Unavailable Unavailable DOYLE, JULIUS Unavailable [address] + [place] [address] D Unavailable Unavailable Unavailable DOYLE, JULIUS Unavailable [address] + [place] [address] D Unavailable Unavailable Unavailable DOYLE, JULIUS Unavailable [address] + [place] [address] D Unavailable Unavailable Unavailable DOYLE, JULIUS Unavailable [address] + [place] [address] D Unavailable Unavailable Unavailable DOYLE, JULIUS Unavailable [address] + [place] [address] D Unavailable Unavailable Unavailable DOYLE, JULIUS Unavailable [address] + [place] [address] D Unavailable Unavailable Unavailable DOYLE, JULIUS Unavailable [address] + [place] [address] D Unavailable Unavailable Unavailable DOYLE, JULIUS Unavailable [address] + [place] [address] D Unavailable Unavailable Unavailable DOYLE, JULIUS Unavailable [address] + [place] [address] D Unavailable Unavailable Unavailable DOYLE, JULIUS Unavailable [address] + [place] [address] D Unavailable Unavailable Unavailable DOYLE, JULIUS Unavailable [address] + [place] [address] D Unavailable Unavailable Unavailable DOYLE, JULIUS Unavailable [address] + [place] [address] D Unavailable Unavailable Unavailable DOYLE, JULIUS Unavailable [address] + [place] [address] D Unavailable Unavailable Unavailable DOYLE, JULIUS Unavailable [address] + [place] [address] D Unavailable Unavailable Unavailable DOYLE, JULIUS Unavailable [address] + [place] [address] D Unavailable Unavailable Unavailable DOYLE, JULIUS Unavailable [address] + [place] [address] D Unavailable Unavailable Unavailable DOYLE, JULIUS Unavailable [address] + [place] [address] D Unavailable Unavailable Unavailable DOYLE, JULIUS Unavailable [address] + [place] [address] D Unavailable Unavailable Unavailable DOYLE, JULIUS Unavailable [address] + [place] [address] D Unavailable Unavailable Unavailable DOYLE, JULIUS Unavailable [address] + [place] [address] D Unavailable Unavailable Unavailable DOYLE, JULIUS Unavailable [address] + [place] [address] D Unavailable Unavailable Unavailable DOYLE, JULIUS Unavailable [address] + [place] [address] D Unavailable Unavailable Unavailable DOYLE, JULIUS Unavailable [address] + [place] [address] D Unavailable Unavailable Unavailable DOYLE, JULIUS Unavailable [address] + [place] [address] D Unavailable Unavailable Unavailable DOYLE, JULIUS Unavailable [address] + [place] [address] D Unavailable Unavailable Unavailable DOYLE, JULIUS Unavailable [address] + [place] [address] D Unavailable Unavailable Unavailable DOYLE, JULIUS Unavailable [address] + [place] [address] D Unavailable Unavailable Unavailable DOYLE, JULIUS Unavailable [address] + [place] [address] D Unavailable Unavailable Unavailable DOYLE, JULIUS Unavailable [address] + [place] [address] D Unavailable Unavailable Unavailable DOYLE, JULIUS Unavailable [address] + [place] [address] D Unavailable Unavailable Unavailable DOYLE, JULIUS Unavailable [address] + [place] [address] D Unavailable Unavailable Unavailable DOYLE, JULIUS Unavailable [address] + [place] [address] D Unavailable Unavailable Unavailable DOYLE, JULIUS Unavailable [address] + [place] [address] D Unavailable Unavailable Unavailable DOYLE, JULIUS Unavailable [address] + [place] [address] D Unavailable Unavailable Unavailable DOYLE, JULIUS Unavailable [address] + [place] [address] D Unavailable Unavailable Unavailable DOYLE, JULIUS Unavailable [address] + [place] [address] D Unavailable Unavailable Unavailable DOYLE, JULIUS Unavailable [address] + [place] [address] D Unavailable Unavailable Unavailable DOYLE, JULIUS Unavailable [address] + [place] [address] D Unavailable Unavailable Unavailable DOYLE, JULIUS Unavailable [address] + [place] [address] D Unavailable Unavailable Unavailable DOYLE, JULIUS Unavailable [address] + [place] [address] D Unavailable Unavailable Unavailable DOYLE, JULIUS Unavailable [address] + [place] [address] D Unavailable Unavailable Unavailable DOYLE, JULIUS Unavailable [address] + [place] [address] D Unavailable Unavailable Unavailable DOYLE, JULIUS Unavailable [address] + [place] [address] D Unavailable Unavailable Unavailable DOYLE, JULIUS Unavailable [address] + [place] [address] D Unavailable Unavailable Unavailable DOYLE, JULIUS Unavailable [address] + [place] [address] D Unavailable Unavailable Unavailable DOYLE, JULIUS Unavailable [address] + [place] [address] D Unavailable Unavailable Unavailable DOYLE, JULIUS Unavailable [address] + [place] [address] D Unavailable Unavailable Unavailable DOYLE, JULIUS Unavailable [address] + [place] [address] D Unavailable Unavailable Unavailable DOYLE, JULIUS Unavailable [address] + [place] [address] D Unavailable Unavailable Unavailable DOYLE, JULIUS Unavailable [address] + [place] [address] D Unavailable Unavailable Unavailable DOYLE, JULIUS Unavailable [address] + [place] [address] D Unavailable Unavailable Unavailable DOYLE, JULIUS Unavailable [address] + [place] [address] D Unavailable Unavailable Unavailable DOYLE, JULIUS Unavailable [address] + [place] [address] D Unavailable Unavailable Unavailable DOYLE, JULIUS Unavailable [address] + [place] [address] D Unavailable Unavailable Unavailable DOYLE, JULIUS Unavailable [address] + [place] [address] D Unavailable Unavailable Unavailable DOYLE, JULIUS Unavailable [address] + [place] [address] D Unavailable Unavailable Unavailable DOYLE, JULIUS Unavailable [address] + [place] [address] D Unavailable Unavailable Unavailable DOYLE, JULIUS Unavailable [address] + [place] [address] D Unavailable Unavailable Unavailable DOYLE, JULIUS Unavailable [address] + [place] [address] D Unavailable Unavailable Unavailable DOYLE, JULIUS Unavailable [address] + [place] [address] D Unavailable Unavailable Unavailable DOYLE, JULIUS Unavailable [address] + [place] [address] D Unavailable Unavailable Unavailable DOYLE, JULIUS Unavailable [address] + [place] [address] D Unavailable Unavailable Unavailable DOYLE, JULIUS Unavailable [address] + [place] [address] D Unavailable Unavailable Unavailable DOYLE, JULIUS Unavailable [address] + [place] [address] D Unavailable Unavailable Unavailable DOYLE, JULIUS Unavailable [address] + [place] [address] D Unavailable Unavailable Unavailable DOYLE, JULIUS Unavailable [address] + [place] [address] D Unavailable Unavailable Unavailable DOYLE, JULIUS Unavailable [address] + [place] [address] Care Team Providers Name Role Phone LAUREN DEMPSEY Attending Unavailable EISENGART, LAUREN A Attending Unavailable EISENGART, LAUREN A Referring Unavailable SEARS, LAUREN E Attending Unavailable SEARS, LAUREN E Referring Unavailable SARA SMITH (FISH PEDDLER) Attending Unavailable ANILAMARILYN CLAIRE Attending Unavailable SARA SMITH (FISH PEDDLER) Referring Unavailable EISENGART, LAUREN A Attending Unavailable EISENGART, LAUREN A Referring Unavailable SEARS, LAUREN E Attending Unavailable SEARS, LAUREN E Referring Unavailable Kobe, Arnie Chi Attending Unavailable Kobe, Arnie Chi Primary Care Unavailable Jose Mendoza Attending Unavailable Kobe, Arnie Chi Primary Care Unavailable FascioneJaronRachele Consulting Unavailable Valeria Castaneda Attending Unavailable Kobe, Arnie Chi Primary Care Unavailable FascioneRachele Consulting Unavailable FascioneJaronRachele Attending Unavailable Kobe, Arnie Chi Primary Care Unavailable Oleghe, Efewongbe Attending Unavailable Oleghe, Efewongbe Referring Unavailable Oleghe, Efewongbe Attending Unavailable Oleghe, Efewongbe Referring Unavailable Oleghe, Efewongbe Attending Unavailable Oleghe, Efewongbe Referring Unavailable Oleghe, Efewongbe Attending Unavailable Oleghe, Efewongbe Referring Unavailable Oleghe, Efewongbe Attending Unavailable Oleghe, Efewongbe Referring Unavailable Oleghe, Efewongbe Attending Unavailable Oleghe, Efewongbe Referring Unavailable Mari Juli E Attending Unavailable Kobe, Arnie Chi Primary Care Unavailable AntwanoneRachele Consulting Unavailable Valeria Castaneda Attending Unavailable Kobe, Arnie Chi Primary Care Unavailable AntwanoneRachele Consulting Unavailable FascioneRachele Attending Unavailable Kobe, Arnie Chi Primary Care Unavailable Oleghe, Efewongbe Attending Unavailable Oleghe, Efewongbe Referring Unavailable Oleghe, Efewongbe Attending Unavailable Oleghe, Efewongbe Referring Unavailable Mari Juli E Attending Unavailable Kobe, Arnie Chi Primary Care Unavailable FascioneJaronRachele Consulting Unavailable Oleghe, Efewongbe Attending Unavailable Oleghe, Efewongbe Referring Unavailable Oleghe, Efewongbe Attending Unavailable Oleghe, Efewongbe Referring Unavailable Oleghe, Efewongbe Attending Unavailable Oleghe, Efewongbe Referring Unavailable Oleghe, Efewongbe Attending Unavailable Oleghe, Efewongbe Referring Unavailable Oleghe, Efewongbe Attending Unavailable Oleghe, Efewongbe Referring Unavailable SlabJose pastor Attending Unavailable Kobe, Arnie Chi Primary Care Unavailable Fascione, Rachele Consulting Unavailable Slaby Jose Attending Unavailable Kobe, Arnie Chi Primary Care Unavailable Fascione, Rachele Consulting Unavailable Oleghe, Efewongbe Attending Unavailable Oleghe, Efewongbe Attending Unavailable Jose Mendoza Attending Unavailable Kobe, Arnie Chi Primary Care Unavailable Fascione, Rachele Consulting Unavailable Slaby Jose Attending Unavailable Kobe, Arnie Chi Primary Care Unavailable Fascione, Rachele Consulting Unavailable Fascione, Rachele Attending Unavailable Kobe, Arnie Chi Primary Care Unavailable Fascione, Rachele Attending Unavailable Fascione, Rachele Referring Unavailable Kobe, Arnie Chi Primary Care Unavailable Kannan Augustina Attending Unavailable Kobe, Arnie Chi Primary Care Unavailable Fascione, Rachele Attending Unavailable Kobe, Arnie Chi Primary Care Unavailable Fascione, Rachele Attending Unavailable Fascione, Rachele Referring Unavailable Kobe, Arnie Chi Primary Care Unavailable KannanAugustina Attending Unavailable Kannan Augustina Referring Unavailable Kobe, Arnie Chi Primary Care Unavailable Kobe, Arnie Chi Attending Unavailable KannanAugustina Attending Unavailable Kobe, Arnie Chi Attending Unavailable Kobe, Arnie Chi Referring Unavailable Kobe, Arnie Chi Primary Care Unavailable Kobe, Arnie Chi Attending Unavailable Kobe, Arnie Chi Attending Unavailable Kobe, Arnie Chi Referring Unavailable Kobe, Arnie Chi Primary Care Unavailable Fascione, Rachele Attending Unavailable Oleghe, Efewongbe Attending Unavailable Oleghe, Efewongbe Referring Unavailable Fascione, Rachele Attending Unavailable Fascione, Rachele Referring Unavailable CHILO RUSSELL Primary Care Unavailable Fascione, Rachele Attending Unavailable CHILO RUSSELL Primary Care Unavailable Valeria Castaneda Attending Unavailable Fascione, Rachele Referring Unavailable CastanedaValeria Attending Unavailable Fascione, Rachele Referring Unavailable Oleghe, Efewongbe Attending Unavailable Oleghe, Efewongbe Referring Unavailable Valeria Castaneda Attending Unavailable Fascione, Rachele Referring Unavailable Castaneda, Valeria Attending Unavailable Fascione, Rachele Referring Unavailable Kobe, Arnie Chi Primary Care Unavailable Fascione, Rachele Consulting Unavailable Oleghe, Efewongbe Attending Unavailable Oleghe, Efewongbe Referring Unavailable Oleghe, Efewongbe Attending Unavailable Oleghe, Efewongbe Referring Unavailable Oleghe, Efewongbe Attending Unavailable Oleghe, Efewongbe Referring Unavailable Fascione, Rachele Attending Unavailable Kobe, Arnie Chi Primary Care Unavailable Fascione, Rachele Referring Unavailable Fascione, Rachele Attending Unavailable Fascione, Rachele Referring Unavailable CHILO RUSSELL Primary Care Unavailable Valeria Castaneda Attending Unavailable Kobe, Arnie Chi Primary Care Unavailable Fascione, Rachele Consulting Unavailable Oleghe, Efewongbe Attending Unavailable Oleghe, Efewongbe Referring Unavailable Jose Mendoza Attending Unavailable Kobe, Arnie Chi Primary Care Unavailable Fascione, Rachele Consulting Unavailable Jose Mendoza Attending Unavailable Kobe, Arnie Chi Primary Care Unavailable Fascione, Rachele Consulting Unavailable Oleghe, Efewongbe Attending Unavailable Oleghe, Efewongbe Referring Unavailable Oleghe, Efewongbe Attending Unavailable Oleghe, Efewongbe Referring Unavailable Juli Guerra Attending Unavailable Kobe, Arnie Chi Primary Care Unavailable Fascione, Rachele Consulting Unavailable Fascione, Rachele Attending Unavailable Kobe, Arnie Chi Primary Care Unavailable Oleghe, Efewongbe Attending Unavailable Oleghe, Efewongbe Referring Unavailable Fascione, Rachele Attending Unavailable Kobe, Arnie Chi Primary Care Unavailable Fascione, Rachele Attending Unavailable Fascione, Rachele Referring Unavailable Kobe, Arnie Chi Primary Care Unavailable Fascione, Rachele Attending Unavailable Kobe, Arnie Chi Primary Care Unavailable Oleghe, Efewongbe Attending Unavailable Oleghe, Efewongbe Referring Unavailable Basali, Ayman Attending Unavailable Basali, Ayman Referring Unavailable Kobe, Arnie Chi Primary Care Unavailable Kobe, Arnie Chi Primary Care Unavailable Darinel Dinero Attending Unavailable Kobe, Arnie Chi Attending Unavailable Godwin Carreon Attending Unavailable Fascione, Rachele Referring Unavailable Fascione, Rachele Attending Unavailable Fascione, Rachele Referring Unavailable Kobe, Arnie Chi Admitting Unavailable Kobe, Arnie Chi Attending Unavailable CHILO RUSSELL Primary Care Unavailable Dale Daigle Unavailable Fascione, Rachele Consulting Unavailable Tereletsky, Ruddy Admitting Unavailable Tereletsky, Ruddy Referring Unavailable CHILO RUSSELL Primary Care Unavailable Dale Daigle Unavailable Traci Moura Attending Unavailable Fascione, Rachele Consulting Unavailable Addis Barbour Consulting Unavailable Tereletsky, Ruddy Admitting Unavailable Tereletsky, Ruddy Referring Unavailable CHILO RUSSELL Primary Care Unavailable Pilo, Dale Consulting Unavailable White, Traci Attending Unavailable Fascione, Rachele Consulting Unavailable Gbaruk, Kombian Consulting Unavailable Tereletsky, Ruddy Admitting Unavailable Tereletsky, Ruddy Attending Unavailable Tereletsky, Ruddy Referring Unavailable CHILO RUSSELL Primary Care Unavailable Pilo, Dale Consulting Unavailable Fascione, Rachele Consulting Unavailable Tereletsky, Ruddy Consulting Unavailable Fascione, Rachele Attending Unavailable Fascione, Rachele Referring Unavailable CHILO RUSSELL Primary Care Unavailable Fascione, Rachele Attending Unavailable CHILO RUSSELL Primary Care Unavailable Tereletsky, [...] Primary Care Unavailable Pilo, Dale Consulting Unavailable Gbaruk, Kombian Attending Unavailable Fascione, Rachele Consulting Unavailable Fascione, Rachele Attending Unavailable Fascione, Rachele Referring Unavailable CHILO RUSSELL Primary Care Unavailable CHILO RUSSELL Referring Unavailable CHILO RUSSELL Primary Care Unavailable CHILO RUSSELL Attending Unavailable Fascione, Rachele Attending Unavailable Fascione, Rachele Referring Unavailable CHILO RUSSELL Primary Care Unavailable Fascione, Rachele Attending Unavailable CHILO RUSSELL Primary Care Unavailable Fascione, Rachele Attending Unavailable CHILO RUSSELL Primary Care Unavailable Valeria Castaneda Attending Unavailable Fascione, Rachele Referring Unavailable Kobe, Arnie-Chi Attending Unavailable PROBLEMS PROBLEMS DATE TYPE CONDITION / CODE ATTENDING STATUS SOURCE 06/24/2018 Unknown E11.621 - Type 2 Castaneda, Active [place] 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[facility] with foot ulcer / Hospital E11.621(ICD-10) Repository 06/24/2018 Unknown 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, Active [facility] 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 / L97.514(ICD-10) 04/06/2018 Unknown E11.42 - Type 2 Fascione, Active [place] 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 / Repository E11.42(ICD-10) 12/30/2017 Unknown L97.512 - Oleghe, [facility] right foot with Repository fat layer exposed / L97.512(ICD-10) 12/30/2017 Unknown L98.499 - Oleghe, Active [place] [facility] other sites with Repository unspecified severity / L98.499(ICD-10) 12/30/2017 Unknown E11.8 - Type 2 Oleghe, Active [place] diabetes mellitus [facility] Community with unspecified Hospital complications / Repository E11.8(ICD-10) 12/16/2017 Unknown F11.20 - Opioid Basali, Ayman Active [place] dependence, Community uncomplicated / Hospital F11.20(ICD-10) Repository 12/02/2017 Unknown N18.3 - Chronic Kannan Augustina Active [facility] kidney disease, Community stage 3 (moderate) / Hospital N18.3(ICD-10) Repository 11/09/2017 Active Retinal edema / SEARS, Active Mao H35.81(ICD-10) [facility] Repository 10/29/2017 Unknown Z87.891 - Personal Kobe, Arnie Chi Active [facility] history of nicotine Community dependence / Hospital Z87.891(ICD-10) Repository 10/29/2017 Unknown N17.9 - Acute kidney KannanMatheusAugustina Active [facility] failure, unspecified Community / N17.9(ICD-10) Hospital Repository 10/11/2017 Admitting Unknown / Kobe, Arnie-Chi Active [facility] UNK(Unknown) [facility] [place] Repository 09/28/2017 Unknown Z01.810 - Encounter Lauri, [place] Active [facility] for preprocedural [facility] Hospital examination / Repository Z01.810(ICD-10) 09/07/2017 Unknown L97.912 - Gbaruk, Active Rudy Non-pressure chronic Kombian [facility] ulcer of unspecified Hospital part of right lower Repository leg with fat layer exposed / L97.912(ICD-10) 11/05/2017 Unknown I89.0 - Lymphedema, Fascione, Active [facility] I89.0(ICD-10) Repository 07/08/2017 Unknown E11.22 - Type 2 CHILO RUSSELL Active [place] diabetes mellitus [facility] with diabetic Hospital chronic kidney Repository disease / E11.22(ICD-10) 07/08/2017 Unknown N18.2 - Chronic [facility] stage 2 (mild) / Hospital N18.2(ICD-10) Repository PROCEDURES PROCEDURES No Procedure Records FoundRESULTS RESULTS BEDSIDE GLUCOSE Collected: 07/05/2018 Status: F Source: RUDY 11:55 AM [facility] REPOSITORY TYPE CODE TESTS RESULT OUT OF REFERENCE UNITS RANGE LAB L501.080 70-110 mg/dL High BEDSIDE GLU 173 Result Comment: MANAGEMENT OF PATIENT CARE PER NURSING PROTOCOL Performed By: #### L501.080 #### [facility] Point of Care [address] [place] [address] BEDSIDE GLUCOSE Collected: 07/05/2018 Status: F Source: RUDY 9:39 AM [facility] REPOSITORY TYPE CODE TESTS RESULT OUT OF REFERENCE UNITS RANGE LAB L501.080 70-110 mg/dL High BEDSIDE GLU 238 Result Comment: MANAGEMENT OF PATIENT CARE PER NURSING PROTOCOL Performed By: #### L501.080 #### [facility] Point of Care [address] [facility] [place] [address] CBC W/DIFF, AUTOMATED Collected: 06/29/2018 Status: F Source: RUDY 2:52 PM [facility] REPOSITORY TYPE CODE TESTS RESULT OUT OF RANGE REFERENCE UNITS LAB L100.1000 4.4-11.0 K/mm3 Normal WBC 9.9 LAB L100.1200 4.6-6.2 M/mm3 Low RBC 3.53 LAB L100.1300 13.0-16.5 g/dl Low HGB 9.7 LAB L100.1400 40-54 % Low HCT 31.8 LAB L100.1500 80-94 fL Normal MCV 90.1 LAB L100.1600 27.0-32.0 pg Normal MCH 27.5 LAB L100.1700 32-36 g/gl Low MCHC 30.5 LAB L100.1810 11.6-14.6 % High RDW CV 16.1 LAB L100.1820 35.1-43.9 fl High RDW SD 51.4 LAB L100.1900 150-450 K/mm3 Normal PLT 185 LAB L100.2000 6.2-12.0 fl Normal MPV 11.3 LAB L100.2100 47-70 % High NEUT% 74.0 LAB L100.2200 19-41 % Low LY% 15.2 LAB L100.2300 0-10 % Normal MONO% 7.3 LAB L100.2400 0-5 % Normal EO% 2.0 LAB L100.2500 0-1 % Normal BASO% 0.2 LAB L100.2550 0.0-0.9 % High IM GRAN % 1.300 Result Comment: IG% - Immature Granulocytes (promyelocytes, myelocytes and metamyelocytes) > 1% indicates that a LEFT SHIFT is Present. LAB L100.2620 2.0-7.7 X10 3/uL Normal Absolute Neut 7.3 LAB L100.2720 0.83-4.51 X10 3/ul Normal Absolute Lymph 1.50 Performed By: #### L100.0100 #### [facility] [address] [place], [address] VITAMIN D,25 HYDROXY Collected: 06/29/2018 Status: F Source: RUDY 2:52 PM [facility] REPOSITORY TYPE CODE TESTS RESULT OUT OF RANGE REFERENCE UNITS LAB L506.1000 29.95-100.01 ng/mL Normal Vitamin D 70.8 25-OH Result Comment: Vitamin D 25(OH) Status Range Deficiency <20 ng/mL (50nmol/L) Insuffciency 20 - 30 ng/mL (50 - 75 nmol/L) Sufficiency 30 - 100 ng/mL (75 - 250 nmol/L) Toxicity >100 ng/mL (>250 nmol/L) Performed By: #### L506.1000 #### [facility] [place], [address] COMPREHENSIVE METABOLIC Collected: 06/29/2018 Status: F Source: RUDY LAU 2:52 PM [facility] REPOSITORY TYPE CODE TESTS RESULT OUT OF RANGE REFERENCE UNITS LAB L501.0100 74-106 mg/dL High GLU 246 Result Comment: Glucose result greater than or equal to 200 mg/dL suggests DIABETES MELLITUS per A.D.A. criteria. Please note revised GLUCOSE reference range effective 2017. LAB L501.1000 7-18 mg/dL High BUN 48 LAB L501.1100 0.70-1.30 mg/dL High CREAT,SERUM 1.86 Result Comment: The validity of the calculated GFR AND GFRAA in patients over 70 years has not been determined. Clinical correlation is essential. LAB L501.1110 >60 mL/min Low EST GFR 40 Result Comment: Non- GFR Calc LAB L501.1115 >60 mL/min Low EST GFR - AA 48 Result Comment: GFR Calc LAB L501.1300 10-20 RATIO High BUN/CRE 25.8 LAB L501.1500 6.4-8.2 g/dL T Normal PROT 7.5 LAB L501.1800 3.2-5.0 g/dL Low ALB 2.8 LAB L501.1950 2.2-4.2 g/dL High GLOB 4.7 LAB L501.2000 0.9-2.4 RATIO Low A/G 0.6 LAB L501.2200 8.5-10.1 mg/dL CA Normal 8.6 LAB L501.4100 15-37 U/L Normal AST 22 LAB L501.4305 45-117 U/L Normal ALK P 101 LAB L501.4405 16-61 U/L Normal ALT 36 LAB L501.4600 0.20-1.00 mg/dL T Normal BILI 0.50 LAB L501.5300 136-145 mmol/L NA Normal 141 LAB L501.5600 3.5-5.1 mmol/L K Normal 4.6 LAB L501.5900 98-107 mmol/L CL Normal 105 LAB L501.6100 21.0-32.0 mmol/L Normal CO2 26.0 LAB L501.6200 5-15 Normal GAP 10 Performed By: #### L500.4050, L501.9520 #### [facility] [address] [place], [address] THYROID STIM HORMONE Collected: 06/29/2018 Status: F Source: [place] (TSH) 2:52 PM [facility] REPOSITORY TYPE CODE TESTS RESULT OUT OF RANGE REFERENCE UNITS LAB L501.9520 0.358-3.74 uIU/mL Normal TSH 2.58 Performed By: #### L500.4050, L501.9520 #### [facility] [address] [place], [address] BEDSIDE GLUCOSE Collected: 06/24/2018 Status: F Source: [place] 10:17 AM [facility] REPOSITORY TYPE CODE TESTS RESULT OUT OF REFERENCE UNITS RANGE LAB L501.080 70-110 mg/dL High BEDSIDE GLU 179 Result Comment: MANAGEMENT OF PATIENT CARE PER NURSING PROTOCOL Performed By: #### L501.080 #### [facility] Point of Care [address] [place] [address] BEDSIDE GLUCOSE Collected: 06/24/2018 Status: F Source: [place] 9:29 AM [facility] REPOSITORY TYPE CODE TESTS RESULT OUT OF REFERENCE UNITS RANGE LAB L501.080 70-110 mg/dL High BEDSIDE GLU 200 Result Comment: MANAGEMENT OF PATIENT CARE PER NURSING PROTOCOL Performed By: #### L501.080 #### [facility] Point of Care [address] [place] [address] BEDSIDE GLUCOSE Collected: 06/23/2018 Status: F Source: [place] 9:45 AM [facility] REPOSITORY TYPE CODE TESTS RESULT OUT OF REFERENCE UNITS RANGE LAB L501.080 70-110 mg/dL High BEDSIDE GLU 218 Result Comment: MANAGEMENT OF PATIENT CARE PER NURSING PROTOCOL Performed By: #### L501.080 #### [facility] Point of Care [address] [place] [address] BEDSIDE GLUCOSE Collected: 06/23/2018 Status: F Source: [place] 9:29 AM [facility] REPOSITORY TYPE CODE TESTS RESULT OUT OF REFERENCE UNITS RANGE LAB L501.080 70-110 mg/dL High BEDSIDE GLU 223 Result Comment: MANAGEMENT OF PATIENT CARE PER NURSING PROTOCOL Performed By: #### L501.080 #### [place] [facility] Point of Care [address] [place], [place] [address] BEDSIDE GLUCOSE Collected: 06/23/2018 Status: F Source: [place] 9:17 AM [facility] REPOSITORY TYPE CODE TESTS RESULT OUT OF REFERENCE UNITS RANGE LAB L501.080 70-110 mg/dL High BEDSIDE GLU 253 Result Comment: MANAGEMENT OF PATIENT CARE PER NURSING PROTOCOL Performed By: #### L501.080 #### [place] [facility] Point of Care [address] [place] [address] CNNURSE Observed: 06/21/2018 Status: COMPLETED Source: [place] 1:20 PM [facility] REPOSITORY Nurse Visit (DEXTER) DEL BARRIOS ([id number]) 1960 M T Date Time Provider Department 06/21/18 1:20 PM DERM SURGERY NURSE DEXTER During your visit today, we recorded the following information about you: RADHA Valdez RN 06/21/2018 1:24 PM Signed PROCEDURE FOLLOW UP ? PATIENT ID CONFIRMED: YES PATIENT ID VERIFIED BY: RADHA Valdez RN PAIN ASSESSMENT: ? Is the patient having any pain? No 0 on a scale of 0 to 10 ? CLINICIAN: Donna Delaney RN, BSN ? PATIENT RETURNS FOR: wound check PHOTO TAKEN: Yes ? PATIENT IS S/P: MOHS surgery FOLLOW UP DIAGNOSIS: Basal Cell Carcinoma x2 Pathology results: NONE ? DATE OF PROCEDURE: 03/25/2018 SITE LOCATION: left temporal scalp and right vertex ? WOUND MANAGEMENT: Heal by secondary intention/purse string. Both wounds are fully healed. No s/s of infection. No more wound care necessary as scars have fully formed. FOLLOW UP: 6 months for skin check with Lindsey Marcelino CNP ? Donna Delaney RN, BSN June 21, 2018 1:16 PM Referring Provider: SELF [200] Allergies As of Date: 06/21/2018 Noted Allergy Reaction CLAUDE INHIBITORS 01/28/2014 14 - Other: See Comments Comments: Angioedema. BEES 07/24/2013 2 - Rash FLAGYL (METRONIDAZOLE) 01/16/2016 14 - Other: See Comments Comments: Gets sick Date Reviewed: 06/21/2018 Reviewed by: Donna Delaney RN, BSN - Fully Assessed Reason for Visit: Wound Check [133] Primary Visit Diagnosis:Basal cell carcinoma (BCC) of scalp [C44.41] Prescriptions as of 06/21/2018 Sig: HUMALOG KWIKPEN (U-100) INSUL* Inject 60 [...] h* FLUTICASONE 50 MCG/ACTUATION * Use 1 [place] in each nostril o* GABAPENTIN 600 MG [...] Take 40 mg by mouth once narcisa* ZINC-FOR TPN Take 220 mg by mouth once minnie* Problem List As Of Date 06/21/2018 Noted Resolved Hypertension [I10] INVALID FOR* Diabetic neuropathy (HCC) [E11.40] INVALID FOR* GERD (Gastroesophageal Reflux Disease) [K21.9] More... Hyperlipidemia [E78.5] More... Proteinuria [R80.9] More... Pressure ulcer, other site(707.09) ([facility]) [L89.*INVALID FOR*01/28/2014 CKD III [N18.3] INVALID FOR* More... Diabetic ulcer of right foot ([facility]) [E11.621, L9*INVALID FOR*01/28/2014 Gouph-wx-ypqegsy kidney injury (HCC) [N17.9, N1*INVALID FOR*01/31/2014 Chronic anticoagulation [Z79.01] INVALID FOR* More... 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 Ulcer of ankle ([facility]) [L97.309] INVALID FOR* Peripheral vascular disease, unspecified ([facility]) *INVALID FOR* S/P BKA (below knee amputation) ([facility]) [Z89.519] INVALID FOR* Lymphedema [I89.0] INVALID FOR* Hearing loss [H91.90] INVALID FOR* Rhinitis [J31.0] INVALID FOR* Chronic serous otitis media [H65.20] INVALID FOR*05/28/2017 Chronic otitis media of right ear [H66.91] INVALID FOR*05/28/2017 Deep vein thrombosis [I82.409] INVALID FOR* More... Morbid obesity (HCC) [E66.01] INVALID FOR* Open wound of right foot [S91.301A] INVALID FOR* Borderline glaucoma with ocular hypertension [H*INVALID FOR* Ulcer of toe of right foot (HCC) [L97.519] INVALID FOR* Bilateral chronic serous otitis media [H65.23] INVALID FOR* Wound of left leg [S81.802A] INVALID FOR* Cellulitis [L03.90] INVALID FOR*01/21/2017 Diabetes mellitus (HCC) [E11.9] INVALID FOR* Encounter Status:Closed by RADHA DELANEY RN, BRIDGET on 06/21/18 PROGRESS Observed: 06/21/2018 Status: COMPLETED Source: [place] 1:15 PM [facility] REPOSITORY HNO ID: [id number] Author: RADHA Valdez RN Service: (none) Author Type: (none) Type: Progress Notes Filed: 06/21/2018 1:24 PM Note Text: PROCEDURE FOLLOW UP ? PATIENT ID CONFIRMED: YES PATIENT ID VERIFIED BY: RADHA Valdez RN PAIN ASSESSMENT: ? Is the patient having any pain? No 0 on a scale of 0 to 10 ? CLINICIAN: RADHA Valdez RN ? PATIENT RETURNS FOR: wound check PHOTO TAKEN: Yes ? PATIENT IS S/P: MOHS surgery FOLLOW UP DIAGNOSIS: Basal Cell Carcinoma x2 Pathology results: NONE ? DATE OF PROCEDURE: 03/25/2018 SITE LOCATION: left temporal scalp and right vertex ? WOUND MANAGEMENT: Heal by secondary intention/purse string. Both wounds are fully healed. No s/s of infection. No more wound care necessary as scars have fully formed. FOLLOW UP: 6 months for skin check with Lindsey Marcelino CNP ? Donna Delaney RN, BSN June 21, 2018 1:16 PM BEDSIDE GLUCOSE Collected: 06/20/2018 Status: F Source: [place] 12:11 PM [facility] REPOSITORY TYPE CODE TESTS RESULT OUT OF REFERENCE UNITS RANGE LAB L501.080 70-110 mg/dL High BEDSIDE GLU 190 Result Comment: MANAGEMENT OF PATIENT CARE PER NURSING PROTOCOL Performed By: #### L501.080 #### [facility] Point of Care [address] [place] [address] BEDSIDE GLUCOSE Collected: 06/20/2018 Status: F Source: [place] 9:57 AM [facility] REPOSITORY TYPE CODE TESTS RESULT OUT OF REFERENCE UNITS RANGE LAB L501.080 70-110 mg/dL High BEDSIDE GLU 240 Result Comment: MANAGEMENT OF PATIENT CARE PER NURSING PROTOCOL Performed By: #### L501.080 #### [facility] Point of Care [address] [place] [address] BEDSIDE GLUCOSE Collected: 06/17/2018 Status: F Source: [place] 12:03 PM [facility] REPOSITORY TYPE CODE TESTS RESULT OUT OF REFERENCE UNITS RANGE LAB L501.080 70-110 mg/dL High BEDSIDE GLU 135 Result Comment: MANAGEMENT OF PATIENT CARE PER NURSING PROTOCOL Performed By: #### L501.080 #### [facility] Point of Care [address] [place] [address] BEDSIDE GLUCOSE Collected: 06/17/2018 Status: F Source: [place] 9:54 AM [facility] REPOSITORY TYPE CODE TESTS RESULT OUT OF REFERENCE UNITS RANGE LAB L501.080 70-110 mg/dL High BEDSIDE GLU 187 Result Comment: MANAGEMENT OF PATIENT CARE PER NURSING PROTOCOL Performed By: #### L501.080 #### [facility] Point of Care [address] [place] [address] BEDSIDE GLUCOSE Collected: 06/16/2018 Status: F Source: [place] 10:18 AM [facility] REPOSITORY TYPE CODE TESTS RESULT OUT OF REFERENCE UNITS RANGE LAB L501.080 70-110 mg/dL High BEDSIDE GLU 266 Result Comment: MANAGEMENT OF PATIENT CARE PER NURSING PROTOCOL Performed By: #### L501.080 #### [facility] Point of Care [address] [place] [address] BEDSIDE GLUCOSE Collected: 06/16/2018 Status: F Source: [place] 9:46 AM [facility] REPOSITORY TYPE CODE TESTS RESULT OUT OF REFERENCE UNITS RANGE LAB L501.080 70-110 mg/dL High BEDSIDE GLU 283 Result Comment: MANAGEMENT OF PATIENT CARE PER NURSING PROTOCOL Performed By: #### L501.080 #### [facility] Point of Care [address] [place] [address] BEDSIDE GLUCOSE Collected: 06/15/2018 Status: F Source: [place] 12:46 PM [facility] REPOSITORY TYPE CODE TESTS RESULT OUT OF REFERENCE UNITS RANGE LAB L501.080 70-110 mg/dL High BEDSIDE GLU 171 Result Comment: MANAGEMENT OF PATIENT CARE PER NURSING PROTOCOL Performed By: #### L501.080 #### [facility] Point of Care [address] [place] [address] BEDSIDE GLUCOSE Collected: 06/15/2018 Status: F Source: [place] 10:32 AM [facility] REPOSITORY TYPE CODE TESTS RESULT OUT OF REFERENCE UNITS RANGE LAB L501.080 70-110 mg/dL High BEDSIDE GLU 244 Result Comment: MANAGEMENT OF PATIENT CARE PER NURSING PROTOCOL Performed By: #### L501.080 #### [facility] Point of Care [address] [place] [address] BEDSIDE GLUCOSE Collected: 06/15/2018 Status: F Source: [place] 9:59 AM [facility] REPOSITORY TYPE CODE TESTS RESULT OUT OF REFERENCE UNITS RANGE LAB L501.080 70-110 mg/dL High BEDSIDE GLU 265 Result Comment: MANAGEMENT OF PATIENT CARE PER NURSING PROTOCOL Performed By: #### L501.080 #### [facility] Point of Care [address] [place] [address] BEDSIDE GLUCOSE Collected: 06/15/2018 Status: F Source: [place] 9:37 AM [facility] REPOSITORY TYPE CODE TESTS RESULT OUT OF REFERENCE UNITS RANGE LAB L501.080 70-110 mg/dL High BEDSIDE GLU 276 Result Comment: MANAGEMENT OF PATIENT CARE PER NURSING PROTOCOL Performed By: #### L501.080 #### [facility] Point of Care [address] [place] [address] BEDSIDE GLUCOSE Collected: 06/14/2018 Status: F Source: [place] 11:45 AM [facility] REPOSITORY TYPE CODE TESTS RESULT OUT OF REFERENCE UNITS RANGE LAB L501.080 70-110 mg/dL High BEDSIDE GLU 155 Result Comment: MANAGEMENT OF PATIENT CARE PER NURSING PROTOCOL Performed By: #### L501.080 #### [facility] Point of Care [address] [place] [address] BEDSIDE GLUCOSE Collected: 06/14/2018 Status: F Source: [place] 9:41 AM [facility] REPOSITORY TYPE CODE TESTS RESULT OUT OF REFERENCE UNITS RANGE LAB L501.080 70-110 mg/dL High BEDSIDE GLU 239 Result Comment: MANAGEMENT OF PATIENT CARE PER NURSING PROTOCOL Performed By: #### L501.080 #### [facility] Point of Care [address] [place] [address] BEDSIDE GLUCOSE Collected: 06/10/2018 Status: F Source: [place] 12:17 PM [facility] REPOSITORY TYPE CODE TESTS RESULT OUT OF REFERENCE UNITS RANGE LAB L501.080 70-110 mg/dL High BEDSIDE GLU 194 Result Comment: MANAGEMENT OF PATIENT CARE PER NURSING PROTOCOL Performed By: #### L501.080 #### [facility] Point of Care [address] [place] [address] BEDSIDE GLUCOSE Collected: 06/10/2018 Status: F Source: RUDY 10:12 AM [facility] REPOSITORY TYPE CODE TESTS RESULT OUT OF REFERENCE UNITS RANGE LAB L501.080 70-110 mg/dL High BEDSIDE GLU 234 Result Comment: MANAGEMENT OF PATIENT CARE PER NURSING PROTOCOL Performed By: #### L501.080 #### [facility] Point of Care [address] [place] [address] BEDSIDE GLUCOSE Collected: 06/10/2018 Status: F Source: [place] 9:53 AM [facility] REPOSITORY TYPE CODE TESTS RESULT OUT OF REFERENCE UNITS RANGE LAB L501.080 70-110 mg/dL High BEDSIDE GLU 270 Result Comment: MANAGEMENT OF PATIENT CARE PER NURSING PROTOCOL Performed By: #### L501.080 #### [facility] Point of Care [address] [place] [address] ARTERIAL Observed: 06/09/2018 Status: F Source: [place] 4:56 PM [facility] REPOSITORY [facility] Cardiovascular Services [address] [place] [address] Lower Ext Art Exam w/o Exercis 06/09/18 1314 MR#: [id number] Acct: [id number] Name: DEL BARRIOS Rep #: [id number] : 1960 58 From: Neeraj Tobar MD Attending Dr: Rachele Lux DPM Status: REG RCR Ordering Dr: Rachele Lux DPM Date: 06/09/18 Location: [facility] Sex: M C Admitted: Reason For Study: PVD Left Segmental Pressures Left brachial= 145mmHg. The left thigh is noncompressible. The left thigh waveforms are triphasic. Right Segmental Pressures Right brachial= 142mmHg. Right posterior tibial artery = 130mmHg. Right dorsalis pedis artery = 152mmHg. The right dorsalis pedis waveforms are triphasic. The right posterior tibial artery waveforms are triphasic. Indices The right resting ankle brachial index is 1.05. The right ankle brachial index by the dorsalis pedis is 1.05. The right ankle brachial index by the posterior tibial artery is 130. Interpretation Summary Triphasic waveforms are noted at ankle level on the right. The right resting ankle-brachial index appears normal. There is no evidence of significant arterial occlusive disease in the right lower extremity. The patient has a below-knee amputation on the left. The left thigh waveforms are triphasic Ordering Physician: Rachele Lux Performed By: JULIETA ESPINOZA RVSoham 06/09/18 Date Neeraj Tobar MD CC: Rachele Lux DPM; Arnie Reese MD Date Dictated: 06/09/18 1314 Date Transcribed: 06/09/181655 Data Systems Analyst: Signed BEDSIDE GLUCOSE Collected: 06/09/2018 Status: F Source: [place] 12:07 PM [facility] REPOSITORY TYPE CODE TESTS RESULT OUT OF REFERENCE UNITS RANGE LAB L501.080 70-110 mg/dL High BEDSIDE GLU 137 Result Comment: MANAGEMENT OF PATIENT CARE PER NURSING PROTOCOL Performed By: #### L501.080 #### [facility] Point of Care [address] [place], [place] [address] BEDSIDE GLUCOSE Collected: 06/09/2018 Status: F Source: [place] 9:41 AM [facility] REPOSITORY TYPE CODE TESTS RESULT OUT OF REFERENCE UNITS RANGE LAB L501.080 70-110 mg/dL High BEDSIDE GLU 216 Result Comment: MANAGEMENT OF PATIENT CARE PER NURSING PROTOCOL Performed By: #### L501.080 #### [facility] Point of Care [address] [place] [address] BEDSIDE GLUCOSE Collected: 06/08/2018 Status: F Source: [place] 12:20 PM [facility] REPOSITORY TYPE CODE TESTS RESULT OUT OF REFERENCE UNITS RANGE LAB L501.080 70-110 mg/dL High BEDSIDE GLU 148 Result Comment: MANAGEMENT OF PATIENT CARE PER NURSING PROTOCOL Performed By: #### L501.080 #### [facility] Point of Care [address] [place] [address] BEDSIDE GLUCOSE Collected: 06/08/2018 Status: F Source: [place] 10:07 AM [facility] REPOSITORY TYPE CODE TESTS RESULT OUT OF REFERENCE UNITS RANGE LAB L501.080 70-110 mg/dL High BEDSIDE GLU 203 Result Comment: MANAGEMENT OF PATIENT CARE PER NURSING PROTOCOL Performed By: #### L501.080 #### [facility] Point of Care [address] [place] [address] BEDSIDE GLUCOSE Collected: 06/08/2018 Status: F Source: [place] 9:34 AM [facility] REPOSITORY TYPE CODE TESTS RESULT OUT OF REFERENCE UNITS RANGE LAB L501.080 70-110 mg/dL High BEDSIDE GLU 200 Result Comment: MANAGEMENT OF PATIENT CARE PER NURSING PROTOCOL Performed By: #### L501.080 #### [facility] Point of Care [address] [place] [address] BEDSIDE GLUCOSE Collected: 06/06/2018 Status: F Source: [place] 10:34 AM [facility] REPOSITORY TYPE CODE TESTS RESULT OUT OF REFERENCE UNITS RANGE LAB L501.080 70-110 mg/dL High BEDSIDE GLU 129 Result Comment: MANAGEMENT OF PATIENT CARE PER NURSING PROTOCOL Performed By: #### L501.080 #### [facility] Point of Care [address] [place] [address] BEDSIDE GLUCOSE Collected: 06/06/2018 Status: F Source: [place] 9:58 AM [facility] REPOSITORY TYPE CODE TESTS RESULT OUT OF REFERENCE UNITS RANGE LAB L501.080 70-110 mg/dL High BEDSIDE GLU 120 Result Comment: MANAGEMENT OF PATIENT CARE PER NURSING PROTOCOL Performed By: #### L501.080 #### [facility] Point of Care [address] [place] [address] BEDSIDE GLUCOSE Collected: 06/06/2018 Status: F Source: [place] 9:36 AM [facility] REPOSITORY TYPE CODE TESTS RESULT OUT OF REFERENCE UNITS RANGE LAB L501.080 70-110 mg/dL High BEDSIDE GLU 138 Result Comment: MANAGEMENT OF PATIENT CARE PER NURSING PROTOCOL Performed By: #### L501.080 #### [facility] Point of Care [address] [place] [address] BEDSIDE GLUCOSE Collected: 2018 Status: F Source: [place] 9:52 AM [facility] REPOSITORY TYPE CODE TESTS RESULT OUT OF REFERENCE UNITS RANGE LAB L501.080 70-110 mg/dL Low BEDSIDE GLU 68 Result Comment: MANAGEMENT OF PATIENT CARE PER NURSING PROTOCOL Performed By: #### L501.080 #### [facility] Point of Care [address] [place] [address] BEDSIDE GLUCOSE Collected: 2018 Status: F Source: [place] 9:30 AM [facility] REPOSITORY TYPE CODE TESTS RESULT OUT OF RANGE REFERENCE UNITS LAB L501.080 70-110 mg/dL Normal BEDSIDE GLU 72 Result Comment: MANAGEMENT OF PATIENT CARE PER NURSING PROTOCOL Performed By: #### L501.080 #### [facility] Point of Care [address] [place] [address] BEDSIDE GLUCOSE Collected: 06/02/2018 Status: F Source: [place] 12:33 PM [facility] REPOSITORY TYPE CODE TESTS RESULT OUT OF RANGE REFERENCE UNITS LAB L501.080 70-110 mg/dL Normal BEDSIDE GLU 71 Result Comment: MANAGEMENT OF PATIENT CARE PER NURSING PROTOCOL Performed By: #### L501.080 #### [facility] Point of Care [address] [place] [address] BEDSIDE GLUCOSE Collected: 06/02/2018 Status: F Source: [place] 12:08 PM [facility] REPOSITORY TYPE CODE TESTS RESULT OUT OF REFERENCE UNITS RANGE LAB L501.080 70-110 mg/dL Low BEDSIDE GLU 62 Result Comment: MANAGEMENT OF PATIENT CARE PER NURSING PROTOCOL Performed By: #### L501.080 #### [facility] Point of Care [address] [place] [address] BEDSIDE GLUCOSE Collected: 06/02/2018 Status: F Source: [place] 9:46 AM [facility] REPOSITORY TYPE CODE TESTS RESULT OUT OF REFERENCE UNITS RANGE LAB L501.080 70-110 mg/dL High BEDSIDE GLU 163 Result Comment: MANAGEMENT OF PATIENT CARE PER NURSING PROTOCOL Performed By: #### L501.080 #### [facility] Point of Care [address] [place] [address] BEDSIDE GLUCOSE Collected: 06/01/2018 Status: F Source: [place] 9:54 AM [facility] REPOSITORY TYPE CODE TESTS RESULT OUT OF RANGE REFERENCE UNITS LAB L501.080 70-110 mg/dL Normal BEDSIDE GLU 110 Result Comment: MANAGEMENT OF PATIENT CARE PER NURSING PROTOCOL Performed By: #### L501.080 #### [facility] Point of Care [address] [place] [address] BEDSIDE GLUCOSE Collected: 06/01/2018 Status: F Source: [place] 9:29 AM [facility] REPOSITORY TYPE CODE TESTS RESULT OUT OF REFERENCE UNITS RANGE LAB L501.080 70-110 mg/dL High BEDSIDE GLU 115 Result Comment: MANAGEMENT OF PATIENT CARE PER NURSING PROTOCOL Performed By: #### L501.080 #### [facility] Point of Care [address] [place] [address] BEDSIDE GLUCOSE Collected: 05/27/2018 Status: F Source: [place] 12:27 PM [facility] REPOSITORY TYPE CODE TESTS RESULT OUT OF REFERENCE UNITS RANGE LAB L501.080 70-110 mg/dL High BEDSIDE GLU 129 Result Comment: MANAGEMENT OF PATIENT CARE PER NURSING PROTOCOL Performed By: #### L501.080 #### [facility] Point of Care [address] [place] [address] BEDSIDE GLUCOSE Collected: 05/27/2018 Status: F Source: [place] 10:01 AM [facility] REPOSITORY TYPE CODE TESTS RESULT OUT OF REFERENCE UNITS RANGE LAB L501.080 70-110 mg/dL High BEDSIDE GLU 191 Result Comment: MANAGEMENT OF PATIENT CARE PER NURSING PROTOCOL Performed By: #### L501.080 #### [facility] Point of Care [address] [place] [address] BEDSIDE GLUCOSE Collected: 05/26/2018 Status: F Source: [place] 12:30 PM [facility] REPOSITORY TYPE CODE TESTS RESULT OUT OF REFERENCE UNITS RANGE LAB L501.080 70-110 mg/dL High BEDSIDE GLU 181 Result Comment: MANAGEMENT OF PATIENT CARE PER NURSING PROTOCOL Performed By: #### L501.080 #### [facility] Point of Care [address] [place] [address] BEDSIDE GLUCOSE Collected: 05/26/2018 Status: F Source: [place] 10:28 AM [facility] REPOSITORY TYPE CODE TESTS RESULT OUT OF REFERENCE UNITS RANGE LAB L501.080 70-110 mg/dL High BEDSIDE GLU 242 Result Comment: MANAGEMENT OF PATIENT CARE PER NURSING PROTOCOL Performed By: #### L501.080 #### [facility] Point [facility] Care [address] [place] [address] BEDSIDE GLUCOSE Collected: 05/25/2018 Status: F Source: [place] 10:28 AM [facility] REPOSITORY TYPE CODE TESTS RESULT OUT OF REFERENCE UNITS RANGE LAB L501.080 70-110 mg/dL High BEDSIDE GLU 424 Result Comment: MANAGEMENT OF PATIENT CARE PER NURSING PROTOCOL Performed By: #### L501.080 #### [facility] Point [facility] Care [address] [place] [address] BEDSIDE GLUCOSE Collected: 05/24/2018 Status: F Source: [place] 12:10 PM [facility] REPOSITORY TYPE CODE TESTS RESULT OUT OF REFERENCE UNITS RANGE LAB L501.080 70-110 mg/dL High BEDSIDE GLU 185 Result Comment: MANAGEMENT OF PATIENT CARE PER NURSING PROTOCOL Performed By: #### L501.080 #### [facility] Point [facility] [address] [place] [address] BEDSIDE GLUCOSE Collected: 05/24/2018 Status: F Source: [place] 9:54 AM [facility] REPOSITORY TYPE CODE TESTS RESULT OUT OF REFERENCE UNITS RANGE LAB L501.080 70-110 mg/dL High BEDSIDE GLU 229 Result Comment: MANAGEMENT OF PATIENT CARE PER NURSING PROTOCOL Performed By: #### L501.080 #### [facility] Laboratory Point of Care [address] [place] [address] BEDSIDE GLUCOSE Collected: 05/20/2018 Status: F Source: [place] 9:40 AM [facility] REPOSITORY TYPE CODE TESTS RESULT OUT OF REFERENCE UNITS RANGE LAB L501.080 70-110 mg/dL High BEDSIDE GLU 211 Result Comment: MANAGEMENT OF PATIENT CARE PER NURSING PROTOCOL Performed By: #### L501.080 #### [facility] Laboratory Point of Care [address] [place] [address] OFFICE VISIT (INTERNAL Observed: 05/19/2018 Status: UNK Source: [facility]) 9:13 PM HOSPITALS REPOSITORY Chief Complaint here [...] atherosclerosis; SHASHA = N; Verified Transmission to [facility] [place], [place]; Last Updated By: MolecuLight; 03/31/2018 5:42:25 PM Accu-Chek Loretta Plus In Vitro Strip; USE 4 TIMES A DAY; Therapy: 05Nov2014 to (Last Rx:[id number]) Requested for: 17Jan2018 Ordered Rx By: Sergo Victor; Dispense: 0 Days ; #:4 X 100 Strip Box; Refill: 3;For: Diabetes mellitus type 2, uncontrolled; SHASHA = N; Verified Transmission to [address]; Msg to Pharmacy: dx e 11.65 on insulin; Last Updated By: MolecuLight; 01/17/2018 7:45:29 PM Accu-Chek Loretta Plus w/Device Kit; USE DIRECTED; Therapy: 05Nov2014 to (Last Rx:05Nov2014) Requested for: 05Nov2014 Ordered Rx By: Sergo Victor; Dispense: 0 Days ; #:1 Kit; Refill: 0;For: Diabetes mellitus type 2, uncontrolled; SHASHA = N; Verified Transmission to [facility] [place] [address]; Msg to Pharmacy: dx 250.02 on insulin Accu-Chek Multiclix Lancets; Uses 4 daily; Therapy: 30Mar2013 to (Last Rx:13Jan2018) Requested for: 13Jan2018 Ordered Rx By: Sergo Victor; Dispense: 0 Days ; #:4 X 102 Miscellaneous Box; Refill: 3;For: Diabetes mellitus type 2, uncontrolled; SHASHA = N; Verified Transmission to [facility]; Msg to Pharmacy: dx [...] uncontrolled; SHASHA = N; Failed Transmission to [address]; Msg to Pharmacy: dx e11.65 on insulin; Last Updated By: Edenilson Meade; 01/17/2018 8:24:13 PM BD Pen Needle Mini U/F 31G X 5 MM; use 3 daily; Therapy: 18Jan2017 to (Last Rx:[id number]) Requested for: 92Itf7119 Ordered Rx By: Sergo Victor; Dispense: 0 Days ; #:3 X 100 Miscellaneous Box; Refill: 3;For: Diabetes mellitus type 2, uncontrolled; SHASHA = N; Verified Transmission to [address]; Last Updated By: Abisai MeadePainting With A Twist; 01/18/2017 11:36:07 AM BD Pen Needle Short U/F 31G X 8 MM; uses 6 daily; Therapy: 24Aug2017 to (Last Rx:20Apr2018) Requested for: 20Apr2018 Ordered Rx By: Sergo Victor; Dispense: 0 Days ; #:6 X 100 Unit Box; Refill: 3;For: Diabetes mellitus type 2, uncontrolled; SHASHA = N; Verified Transmission to [address]; [facility] to Pharmacy: dx E11.65 on insulin Gabapentin 600 MG Oral Tablet; TAKE ONE TABLET BY MOUTH EVERY DAY; Therapy: 08Mar2017 to (Evaluate:54Kkz0353) Requested for: 77Vxq9895; Last Rx:[id number] Ordered Rx By: Sergo Victor; Dispense: 90 Days ; #:90 TAB; Refill: 3;For: Diabetes mellitus type 2, uncontrolled; SHASHA = N; Verified Transmission to [address]; Last Updated By: Edenilson Meade; 01/04/2018 2:26:30 PM Gabapentin 800 MG Oral Tablet; TAKE TWO TABLETS BY MOUTH EVERY NIGHT AT BEDTIME; Therapy: 18Jan2017 to (Evaluate:16Mhv8748) Requested for: 89Ler1282; Last Rx:[id number] Ordered Rx By: Sergo Victor; Dispense: 90 Days ; #:180 TAB; Refill: 3;For: Diabetes mellitus type 2, uncontrolled; SHASHA = N; Verified Transmission to [address]; Last Updated By: Edenilson [place]; 01/04/2018 2:26:31 PM HumuLIN R U-500 KwikPen 500 UNIT/ML Subcutaneous Solution Pen-injector; inject 160 units in the am, 110 units at lunch and 110 units pre evening meal; Therapy: 75Tlh4386 to (Evaluate:02Oct2018) Requested for: 05Apr2018; Last Rx:05Apr2018 Ordered Rx By: Sergo Victor; Dispense: 90 Days ; #:24 X 3 ML Pen; Refill: 1;For: Diabetes mellitus type 2, uncontrolled; SHASHA = N; Verified Transmission to [place], [place]; Last Updated By: Deshaun [employer]; 05/19/2018 5:45:39 PM NovoLOG FlexPen 100 UNIT/ML Subcutaneous Solution Pen-injector; INJECT 45 UNIT Daily for correction of elevated pre-meal glucose levels; Therapy: 05May2018 to (Last Rx:05May2018) Requested for: 05May2018 Ordered Rx By: Sergo Victor; Dispense: 0 Days ; #:1 X 5 x 3 ML Pen; Refill: 5;For: Diabetes mellitus type 2, uncontrolled; SHASHA = N; Verified Transmission to [place], [place]; Last Updated By: Edenilson Hua; 05/05/2018 6:18:09 PM NovoLOG FlexPen 100 UNIT/ML Subcutaneous Solution Pen-injector; INJECT 60 UNIT Daily; Therapy: 02Aug2017 to (Last Rx:[id number]) Requested for: 02Aug2017 Ordered Rx By: Sergo Victor; Dispense: 0 Days ; #:2 X 3 ML Pen (5 Pens); Refill: 5;For: Diabetes mellitus type 2, uncontrolled; SHASHA = N; Verified Transmission to [address]; Last Upda rebeka By: Deshaun [employer]; 08/02/2017 10:08:38 AM TRUEplus Pen [place] 31G X 8 MM; USE THREE DAILY DIRECTED; Therapy: 04Whm8705 to (Evaluate:28Sep2018) Requested for: 03Oct2017; Last Rx:03Oct2017 Ordered Rx By: Sergo Victor; Dispense: 90 Days ; #:300 EA; Refill: 3;For: Diabetes mellitus type 2, uncontrolled; SHASHA = N; Verified Transmission to [address]; Last Updated By: TalkBin; 10/03/2017 8:04:51 PM Eliquis 2.5 MG Oral Tablet; TAKE ONE TABLET BY MOUTH TWICE DAILY; Therapy: 07Mar2015 to (Evaluate:03Jul2018) Requested for: 37Gra8319; Last Rx:[id number] Ordered Rx By: Sergo Victor; Dispense: 30 Days ; #:60 TAB; Refill: 5;For: Health Maintenance; SHASHA = N; Verified Transmission to [address]; Last Updated By: MolecuLight; 01/04/2018 2:25:12 PM Omeprazole 40 MG Oral Capsule Delayed Release; TAKE 1 CAPSULE Daily; Therapy: 31Dec2013 to (Evaluate:13Feb5420) Requested for: 88Jxr4159; Last Rx:[id number] Ordered Rx By: Sergo Victor; Dispense: 90 Days ; #:90 Capsule Delayed Release; Refill: 3;For: Health Maintenance; SHASHA = N; Verified Transmission to [address]; Last Updated By: TalkBin; 01/08/2018 1:14:35 PM Vitamin D (Ergocalciferol) 97988 UNIT Oral Capsule; TAKE ONE CAPSULE BY MOUTH ONCE A WEEK; Therapy: 07Apr2015 to (Evaluate:23Jun2018) Requested for: 31Mar2018; Last Rx:[id number] Ordered Rx By: Sergo Victor; Dispense: 84 Days ; #:12 Capsule; Refill: 0;For: Health Maintenance; SHASHA = N; Verified Transmission to [place], [place]; Last Updated By: MolecuLight; 03/31/2018 5:41:10 PM Bystolic 10 MG Oral Tablet; TAKE ONE TABLET BY MOUTH ONCE DAILY; Therapy: 83Skc4295 to (Evaluate:14Ull2908) Requested for: 02Zjg9753; Last Rx:[id number] Ordered Rx By: Sergo Victor; Dispense: 90 Days ; #:90 TAB; Refill: 3;For: HTN (hypertension); SHASHA = N; Verified Transmission to [address], ; Last Updated By: MolecuLight; 01/04/2018 2:25:08 PM Losartan Potassium 50 MG Oral Tablet; TAKE 1 TABLET DAILY; Therapy: 41Izr1071 to (Evaluate:95Jjz1284) Requested for: 08Mar2017; Last Rx:08Mar2017 Ordered Rx By: Sergo Victor; Dispense: 90 Days ; #:90 Tablet; Refill: 3;For: HTN (hypertension); SHASHA = N; Verified Transmission to [address], ; Last Updated By: MolecuLight; 03/08/2017 3:16:43 PM Accu-Chek Softclix Lancet Dev [...] AM Baclofen 10 MG Oral Tablet; Therapy: 58Ifs7031 to Recorded Rx By: KOBE; Dispense: 30 [...] AM Fluorouracil 2 % External Solution; Therapy: 65Csj3338 to Recorded Rx By: SOLO; Dispense: 10 [...] AM Santyl 250 UNIT/GM External Ointment; Therapy: 24Bss1253 to Recorded Rx By: VEDA; Dispense: 30 Days ; #:30; Refill: 0; SHASHA = N; Record; Last Updated By: Diana Pond; 02/11/2018 10:28:34 AM Timolol Maleate 0.5 % Ophthalmic Solution; Therapy: 29Uww9208 to Recorded Rx By: ISMA; Dispense: 80 Days ; #:10; Refill: 0; SHASHA = N; Record; Last Updated By: Diana Pond; 02/11/2018 10:28:34 AM Vitals Vital Signs Recorded: 62Gip8307 09:12AM Bdjoqopjqop07.6 F Heart Eube445 Uvvinhxn272 Yiucqdchu16 O2 Lkfgthiwvm70, RA Physical Exam in a w/ chair [...] 05/18/2018 Status: F Source: [place] 11:42 AM [facility] REPOSITORY TYPE CODE TESTS RESULT OUT OF RANGE REFERENCE UNITS LAB L501.080 70-110 mg/dL Normal BEDSIDE GLU 106 Result Comment: MANAGEMENT OF PATIENT CARE PER NURSING PROTOCOL Performed By: #### L501.080 #### [facility] Laboratory Point of Care [address] [place] [address] BEDSIDE GLUCOSE Collected: 05/18/2018 Status: F Source: [place] 9:31 AM [facility] REPOSITORY TYPE CODE TESTS RESULT OUT OF REFERENCE UNITS RANGE LAB L501.080 70-110 mg/dL High BEDSIDE GLU 169 Result Comment: MANAGEMENT OF PATIENT CARE PER NURSING PROTOCOL Performed By: #### L501.080 #### [facility] Point of Care [address] [place] [address] BEDSIDE GLUCOSE Collected: 05/17/2018 Status: F Source: [place] 12:09 PM [facility] REPOSITORY TYPE CODE TESTS RESULT OUT OF REFERENCE UNITS RANGE LAB L501.080 70-110 mg/dL High BEDSIDE GLU 178 Result Comment: MANAGEMENT OF PATIENT CARE PER NURSING PROTOCOL Performed By: #### L501.080 #### [facility] Point of Care [address] [place] [address] BEDSIDE GLUCOSE Collected: 05/17/2018 Status: F Source: [place] 9:47 AM [facility] REPOSITORY TYPE CODE TESTS RESULT OUT OF REFERENCE UNITS RANGE LAB L501.080 70-110 mg/dL High BEDSIDE GLU 229 Result Comment: MANAGEMENT OF PATIENT CARE PER NURSING PROTOCOL Performed By: #### L501.080 #### [facility] Point of Care [address] [place] [address] BEDSIDE GLUCOSE Collected: 05/16/2018 Status: F Source: [place] 12:48 PM [facility] REPOSITORY TYPE CODE TESTS RESULT OUT OF RANGE REFERENCE UNITS LAB L501.080 70-110 mg/dL Normal BEDSIDE GLU 92 Result Comment: MANAGEMENT OF PATIENT CARE PER NURSING PROTOCOL Performed By: #### L501.080 #### [facility] Point of Care [address] [place] [address] BEDSIDE GLUCOSE Collected: 05/16/2018 Status: F Source: [place] 10:08 AM [facility] REPOSITORY TYPE CODE TESTS RESULT OUT OF REFERENCE UNITS RANGE LAB L501.080 70-110 mg/dL High BEDSIDE GLU 153 Result Comment: MANAGEMENT OF PATIENT CARE PER NURSING PROTOCOL Performed By: #### L501.080 #### [facility] Point of Care [address] [place] [address] BEDSIDE GLUCOSE Collected: 05/13/2018 Status: F Source: [place] 11:48 AM [facility] REPOSITORY TYPE CODE TESTS RESULT OUT OF REFERENCE UNITS RANGE LAB L501.080 70-110 mg/dL High BEDSIDE GLU 133 Result Comment: MANAGEMENT OF PATIENT CARE PER NURSING PROTOCOL Performed By: #### L501.080 #### [facility] Point of Care [address] [place] [address] BEDSIDE GLUCOSE Collected: 05/13/2018 Status: F Source: [place] 9:49 AM [facility] REPOSITORY TYPE CODE TESTS RESULT OUT OF REFERENCE UNITS RANGE LAB L501.080 70-110 mg/dL High BEDSIDE GLU 182 Result Comment: MANAGEMENT OF PATIENT CARE PER NURSING PROTOCOL Performed By: #### L501.080 #### [facility] Point of Care [address] [place] [address] PROGRESS Observed: 05/12/2018 Status: COMPLETED Source: [place] 9:46 AM [facility] REPOSITORY O ID: [id number] Author: Lauren Dempsey Service: (none) Author Type: Physician Type: Progress [...] with all of its relevant components. Lauren Dempsey MD February 10, 2018 9:10 AM BEDSIDE GLUCOSE Collected: 05/11/2018 Status: F Source: [place] 11:25 AM [facility] REPOSITORY TYPE CODE TESTS RESULT OUT OF REFERENCE UNITS RANGE LAB L501.080 70-110 mg/dL High BEDSIDE GLU 136 Result Comment: MANAGEMENT OF PATIENT CARE PER NURSING PROTOCOL Performed By: #### L501.080 #### [facility] Point of Care [address] [place] [address] BEDSIDE GLUCOSE Collected: 05/11/2018 Status: F Source: [place] 9:23 AM [facility] REPOSITORY TYPE CODE TESTS RESULT OUT OF REFERENCE UNITS RANGE LAB L501.080 70-110 mg/dL High BEDSIDE GLU 192 Result Comment: MANAGEMENT OF PATIENT CARE PER NURSING PROTOCOL Performed By: #### L501.080 #### [facility] Point of Care [address] [place] [address] BEDSIDE GLUCOSE Collected: 05/10/2018 Status: F Source: [place] 11:21 AM [facility] REPOSITORY TYPE CODE TESTS RESULT OUT OF REFERENCE UNITS RANGE LAB L501.080 70-110 mg/dL High BEDSIDE GLU 164 Result Comment: MANAGEMENT OF PATIENT CARE PER NURSING PROTOCOL Performed By: #### L501.080 #### [facility] Point of Care [address] [place] [address] BEDSIDE GLUCOSE Collected: 05/10/2018 Status: F Source: [place] 9:19 AM [facility] REPOSITORY TYPE CODE TESTS RESULT OUT OF REFERENCE UNITS RANGE LAB L501.080 70-110 mg/dL High BEDSIDE GLU 237 Result Comment: MANAGEMENT OF PATIENT CARE PER NURSING PROTOCOL Performed By: #### L501.080 #### [facility] Point of Care [address] [place] [address] BEDSIDE GLUCOSE Collected: 05/09/2018 Status: F Source: [place] 11:45 AM [facility] REPOSITORY TYPE CODE TESTS RESULT OUT OF REFERENCE UNITS RANGE LAB L501.080 70-110 mg/dL High BEDSIDE GLU 114 Result Comment: MANAGEMENT OF PATIENT CARE PER NURSING PROTOCOL Performed By: #### L501.080 #### [facility] Point of Care [address] [place] [address] BEDSIDE GLUCOSE Collected: 05/09/2018 Status: F Source: [place] 9:43 AM [facility] REPOSITORY TYPE CODE TESTS RESULT OUT OF REFERENCE UNITS RANGE LAB L501.080 70-110 mg/dL High BEDSIDE GLU 149 Result Comment: MANAGEMENT OF PATIENT CARE PER NURSING PROTOCOL Performed By: #### L501.080 #### [facility] Point of Care [address] [place] [address] BEDSIDE GLUCOSE Collected: 05/05/2018 Status: F Source: [place] 12:02 PM [facility] REPOSITORY TYPE CODE TESTS RESULT OUT OF REFERENCE UNITS RANGE LAB L501.080 70-110 mg/dL High BEDSIDE GLU 189 Result Comment: MANAGEMENT OF PATIENT CARE PER NURSING PROTOCOL Performed By: #### L501.080 #### [facility] Point of Care [address] [place] [address] BEDSIDE GLUCOSE Collected: 05/05/2018 Status: F Source: [place] 9:45 AM [facility] REPOSITORY TYPE CODE TESTS RESULT OUT OF REFERENCE UNITS RANGE LAB L501.080 70-110 mg/dL High BEDSIDE GLU 256 Result Comment: MANAGEMENT OF PATIENT CARE PER NURSING PROTOCOL Performed By: #### L501.080 #### [facility] Point of Care [address] [place] [address] BEDSIDE GLUCOSE Collected: 05/04/2018 Status: F Source: [place] 9:36 AM [facility] REPOSITORY TYPE CODE TESTS RESULT OUT OF REFERENCE UNITS RANGE LAB L501.080 70-110 mg/dL High BEDSIDE GLU 297 Result Comment: MANAGEMENT OF PATIENT CARE PER NURSING PROTOCOL Performed By: #### L501.080 #### [facility] Point of Care [address] [place], [place] [address] BEDSIDE GLUCOSE Collected: 05/04/2018 Status: F Source: [place] 9:28 AM [facility] REPOSITORY TYPE CODE TESTS RESULT OUT OF REFERENCE UNITS RANGE LAB L501.080 70-110 mg/dL High BEDSIDE GLU 282 Result Comment: MANAGEMENT OF PATIENT CARE PER NURSING PROTOCOL Performed By: #### L501.080 #### [facility] Point of Care [address] [place] [address] BEDSIDE GLUCOSE Collected: 05/03/2018 Status: F Source: [place] 11:49 AM [facility] REPOSITORY TYPE CODE TESTS RESULT OUT OF REFERENCE UNITS RANGE LAB L501.080 70-110 mg/dL High BEDSIDE GLU 144 Result Comment: MANAGEMENT OF PATIENT CARE PER NURSING PROTOCOL Performed By: #### L501.080 #### [facility] Point of Care [address] [place] [address] BEDSIDE GLUCOSE Collected: 05/03/2018 Status: F Source: [place] 9:39 AM [facility] REPOSITORY TYPE CODE TESTS RESULT OUT OF REFERENCE UNITS RANGE LAB L501.080 70-110 mg/dL High BEDSIDE GLU 190 Result Comment: MANAGEMENT OF PATIENT CARE PER NURSING PROTOCOL Performed By: #### L501.080 #### [facility] Point of Care [address] [place], [place] [address] PROGRESS Observed: 05/02/2018 Status: COMPLETED Source: [place] 1:27 PM [facility] REPOSITORY HNO ID: [id number] Author: Donna Delaney RN, BSN Service: (none) Author Type: (none) Type: Progress Notes Filed: 05/02/2018 1:29 PM Note Text: PROCEDURE FOLLOW UP PATIENT ID CONFIRMED: YES PATIENT ID VERIFIED BY: Donna Delaney RN, BSN PAIN ASSESSMENT: Is the patient having any [...] RN CNNURSE Observed: 05/02/2018 Status: COMPLETED Source: [place] 1:20 PM [facility] REPOSITORY Nurse Visit (DEXTER) DEL BARRIOS ([id number]) 1960 M [facility] Date Time Provider Department 05/02/18 1:20 PM [...] h* FLUTICASONE 50 MCG/ACTUATION * Use 1 [place] in each nostril o* GABAPENTIN 600 MG [...] Proteinuria [R80.9] More... Pressure ulcer, other site(707.09) ([facility]) [L89.*INVALID FOR*01/28/2014 CKD III [N18.3] INVALID FOR* Priority: D More... 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 Ulcer of ankle ([facility]) [L97.309] INVALID FOR* Peripheral vascular disease, unspecified ([facility]) *INVALID FOR* S/P BKA (below knee amputation) ([facility]) [Z89.519] INVALID FOR* Lymphedema [I89.0] INVALID FOR* Hearing loss [H91.90] INVALID FOR* Rhinitis [J31.0] INVALID FOR* Chronic serous otitis media [H65.20] INVALID FOR*05/28/2017 Chronic otitis media of right ear [H66.91] INVALID FOR*05/28/2017 Deep vein thrombosis [I82.409] INVALID FOR* Priority: B More... Morbid obesity ([facility]) [E66.01] INVALID FOR* Priority: G Open wound of right foot [S91.301A] INVALID FOR* Borderline glaucoma with ocular hypertension [H*INVALID FOR* Ulcer of toe of right foot ([facility]) [L97.519] INVALID FOR* Bilateral chronic serous otitis media [H65.23] INVALID FOR* Wound of left leg [S81.802A] INVALID FOR* Cellulitis [L03.90] INVALID FOR*01/21/2017 Diabetes mellitus ([facility]) [E11.9] INVALID FOR* Encounter Status:Closed by JESSICA RN, BSN, DONNA on 05/02/18 CNCO Observed: 05/02/2018 Status: COMPLETED Source: [place] 12:00 AM [facility] RE[facility]IT[facility] Letter Text Dr. Marilyn Reyes [place] [address] May 02, 2018 To Whom It May [...] 04/27/2018 Status: F Source: [place] 11:40 AM [facility] REPOSITORY TYPE CODE TESTS RESULT OUT OF REFERENCE UNITS RANGE LAB L501.080 70-110 mg/dL High BEDSIDE GLU 123 Result Comment: MANAGEMENT OF PATIENT CARE PER NURSING PROTOCOL Performed By: #### L501.080 #### [facility] Point of Care [address] [place], [place] [address] BEDSIDE GLUCOSE Collected: 04/27/2018 Status: F Source: [place] 9:27 AM [facility] REPOSITORY TYPE CODE TESTS RESULT OUT OF REFERENCE UNITS RANGE LAB L501.080 70-110 mg/dL High BEDSIDE GLU 158 Result Comment: MANAGEMENT OF PATIENT CARE PER NURSING PROTOCOL Performed By: #### L501.080 #### [facility] Point of Care [address] [place] [address] BEDSIDE GLUCOSE Collected: 04/26/2018 Status: F Source: [place] 12:06 PM [facility] REPOSITORY TYPE CODE TESTS RESULT OUT OF REFERENCE UNITS RANGE LAB L501.080 70-110 mg/dL High BEDSIDE GLU 154 Result Comment: MANAGEMENT OF PATIENT CARE PER NURSING PROTOCOL Performed By: #### L501.080 #### [facility] Point of Care [address] [place] [address] BEDSIDE GLUCOSE Collected: 04/26/2018 Status: F Source: [place] 10:06 AM [facility] REPOSITORY TYPE CODE TESTS RESULT OUT OF REFERENCE UNITS RANGE LAB L501.080 70-110 mg/dL High BEDSIDE GLU 209 Result Comment: MANAGEMENT OF PATIENT CARE PER NURSING PROTOCOL Performed By: #### L501.080 #### [facility] Point of Care [address] [place] [address] BEDSIDE GLUCOSE Collected: 04/25/2018 Status: F Source: [place] 11:46 AM [facility] REPOSITORY TYPE CODE TESTS RESULT OUT OF REFERENCE UNITS RANGE LAB L501.080 70-110 mg/dL High BEDSIDE GLU 187 Result Comment: MANAGEMENT OF PATIENT CARE PER NURSING PROTOCOL Performed By: #### L501.080 #### [facility] Point of Care [address] [place] [address] BEDSIDE GLUCOSE Collected: 04/25/2018 Status: F Source: [place] 9:40 AM [facility] REPOSITORY TYPE CODE TESTS RESULT OUT OF REFERENCE UNITS RANGE LAB L501.080 70-110 mg/dL High BEDSIDE GLU 217 Result Comment: MANAGEMENT OF PATIENT CARE PER NURSING PROTOCOL Performed By: #### L501.080 #### [facility] Point of Care [address] [place] [address] BEDSIDE GLUCOSE Collected: 04/20/2018 Status: F Source: [place] 12:02 PM [facility] REPOSITORY TYPE CODE TESTS RESULT OUT OF REFERENCE UNITS RANGE LAB L501.080 70-110 mg/dL High BEDSIDE GLU 215 Result Comment: MANAGEMENT OF PATIENT CARE PER NURSING PROTOCOL Performed By: #### L501.080 #### [facility] Point of Care [address] [place] [address] BEDSIDE GLUCOSE Collected: 04/19/2018 Status: F Source: [place] 11:57 AM [facility] REPOSITORY TYPE CODE TESTS RESULT OUT OF REFERENCE UNITS RANGE LAB L501.080 70-110 mg/dL High BEDSIDE GLU 176 Result Comment: MANAGEMENT OF PATIENT CARE PER NURSING PROTOCOL Performed By: #### L501.080 #### [facility] Point of Care [address] [place] [address] BEDSIDE GLUCOSE Collected: 04/19/2018 Status: F Source: [place] 11:57 AM [facility] REPOSITORY TYPE CODE TESTS RESULT OUT OF REFERENCE UNITS RANGE LAB L501.080 70-110 mg/dL High BEDSIDE GLU 176 Result Comment: MANAGEMENT OF PATIENT CARE PER NURSING PROTOCOL Performed By: #### L501.080 #### [facility] Point of Care [address] [place] [address] BEDSIDE GLUCOSE Collected: 04/19/2018 Status: F Source: [place] 9:50 AM [facility] REPOSITORY TYPE CODE TESTS RESULT OUT OF REFERENCE UNITS RANGE LAB L501.080 70-110 mg/dL High BEDSIDE GLU 237 Result Comment: MANAGEMENT OF PATIENT CARE PER NURSING PROTOCOL Performed By: #### L501.080 #### [facility] Point of Care [address] [place] [address] BEDSIDE GLUCOSE Collected: 04/19/2018 Status: F Source: [place] 9:50 AM [facility] REPOSITORY TYPE CODE TESTS RESULT OUT OF REFERENCE UNITS RANGE LAB L501.080 70-110 mg/dL High BEDSIDE GLU 237 Result Comment: MANAGEMENT OF PATIENT CARE PER NURSING PROTOCOL Performed By: #### L501.080 #### [facility] [facility] [address] [place] [address] BEDSIDE GLUCOSE Collected: 04/18/2018 Status: F Source: [place] 12:09 PM [facility] REPOSITORY TYPE CODE TESTS RESULT OUT OF REFERENCE UNITS RANGE LAB L501.080 70-110 mg/dL High BEDSIDE GLU 128 Result Comment: MANAGEMENT OF PATIENT CARE PER NURSING PROTOCOL Performed By: #### L501.080 #### [facility] Point of Care [address] [place] [address] BEDSIDE GLUCOSE Collected: 04/18/2018 Status: F Source: [place]UDY 12:09 PM [facility] REPOSITORY TYPE CODE TESTS RESULT OUT OF REFERENCE UNITS RANGE LAB L501.080 70-110 mg/dL High BEDSIDE GLU 128 Result Comment: MANAGEMENT OF PATIENT CARE PER NURSING PROTOCOL Performed By: #### L501.080 #### [facility] Point [facility] Care [address] [place] [address] BEDSIDE GLUCOSE Collected: 04/18/2018 Status: F Source: [place]UDY 9:54 AM [facility] REPOSITORY TYPE CODE TESTS RESULT OUT OF REFERENCE UNITS RANGE LAB L501.080 70-110 mg/dL High BEDSIDE GLU 123 Result Comment: MANAGEMENT OF PATIENT CARE PER NURSING PROTOCOL Performed By: #### L501.080 #### [facility] Laboratory Point [facility] Care [address] [place] [address] BEDSIDE GLUCOSE Collected: 04/18/2018 Status: F Source: [place]UDY 9:54 AM [facility] REPOSITORY TYPE CODE TESTS RESULT OUT OF REFERENCE UNITS RANGE LAB L501.080 70-110 mg/dL High BEDSIDE GLU 123 Result Comment: MANAGEMENT OF PATIENT CARE PER NURSING PROTOCOL Performed By: #### L501.080 #### [facility] Point [facility] [address] [place] [address] BEDSIDE GLUCOSE Collected: 04/15/2018 Status: F Source: [place] 12:06 PM [facility] REPOSITORY TYPE CODE TESTS RESULT OUT OF RANGE REFERENCE UNITS LAB L501.080 70-110 mg/dL Normal BEDSIDE GLU 100 Result Comment: MANAGEMENT OF PATIENT CARE PER NURSING PROTOCOL Performed By: #### L501.080 #### [facility] Point [facility] [address] [place] [address] BEDSIDE GLUCOSE Collected: 04/15/2018 Status: F Source: [place]UDY 12:06 PM [facility] REPOSITORY TYPE CODE TESTS RESULT OUT OF RANGE REFERENCE UNITS LAB L501.080 70-110 mg/dL Normal BEDSIDE GLU 100 Result Comment: MANAGEMENT OF PATIENT CARE PER NURSING PROTOCOL Performed By: #### L501.080 #### [facility] Laboratory Point of [facility] [address] [place] [address] BEDSIDE GLUCOSE Collected: 04/15/2018 Status: F Source: [place]UDY 11:45 AM [facility] REPOSITORY TYPE CODE TESTS RESULT OUT OF RANGE REFERENCE UNITS LAB L501.080 70-110 mg/dL Normal BEDSIDE GLU 97 Result Comment: MANAGEMENT OF PATIENT CARE PER NURSING PROTOCOL Performed By: #### L501.080 #### [facility] Point [facility] [address] [place] [address] BEDSIDE GLUCOSE Collected: 04/15/2018 Status: F Source: [place]UDY 11:45 AM [facility] REPOSITORY TYPE CODE TESTS RESULT OUT OF RANGE REFERENCE UNITS LAB L501.080 70-110 mg/dL Normal BEDSIDE GLU 97 Result Comment: MANAGEMENT OF PATIENT CARE PER NURSING PROTOCOL Performed By: #### L501.080 #### [facility] Point [facility] [address] [place] [address] BEDSIDE GLUCOSE Collected: 04/15/2018 Status: F Source: [place]UDY 9:40 AM [facility] REPOSITORY TYPE CODE TESTS RESULT OUT OF REFERENCE UNITS RANGE LAB L501.080 70-110 mg/dL High BEDSIDE GLU 151 Result Comment: MANAGEMENT OF PATIENT CARE PER NURSING PROTOCOL Performed By: #### L501.080 #### [facility] Point [facility] [address] [place] [address] BEDSIDE GLUCOSE Collected: 04/15/2018 Status: F Source: [place]UD[place] 9:40 AM [facility] REPOSITORY TYPE CODE TESTS RESULT OUT OF REFERENCE UNITS RANGE LAB L501.080 70-110 mg/dL High BEDSIDE GLU 151 Result Comment: MANAGEMENT OF PATIENT CARE PER NURSING PROTOCOL Performed By: #### L501.080 #### [facility] Point [facility] [address] [place] [address] BEDSIDE GLUCOSE Collected: 04/14/2018 Status: F Source: [place] 11:36 AM [facility] REPOSITORY TYPE CODE TESTS RESULT OUT OF REFERENCE UNITS RANGE LAB L501.080 70-110 mg/dL High BEDSIDE GLU 171 Result Comment: MANAGEMENT OF PATIENT CARE PER NURSING PROTOCOL Performed By: #### L501.080 #### [facility] Point [facility] [address] [place] [address] BEDSIDE GLUCOSE Collected: 04/14/2018 Status: F Source: [place] 11:36 AM [facility] REPOSITORY TYPE CODE TESTS RESULT OUT OF REFERENCE UNITS RANGE LAB L501.080 70-110 mg/dL High BEDSIDE GLU 171 Result Comment: MANAGEMENT OF PATIENT CARE PER NURSING PROTOCOL Performed By: #### L501.080 #### [facility] Point [facility] [address] [place] [address] BEDSIDE GLUCOSE Collected: 04/14/2018 Status: F Source: [place]UDY 9:38 AM [facility] REPOSITORY TYPE CODE TESTS RESULT OUT OF REFERENCE UNITS RANGE LAB L501.080 70-110 mg/dL High BEDSIDE GLU 239 Result Comment: MANAGEMENT OF PATIENT CARE PER NURSING PROTOCOL Performed By: #### L501.080 #### [facility] Point [facility] [address] [place] [address] BEDSIDE GLUCOSE Collected: 04/14/2018 Status: F Source: RUDY 9:38 AM [facility] REPOSITORY TYPE CODE TESTS RESULT OUT OF REFERENCE UNITS RANGE LAB L501.080 70-110 mg/dL High BEDSIDE GLU 239 Result Comment: MANAGEMENT OF PATIENT CARE PER NURSING PROTOCOL Performed By: #### L501.080 #### [facility] Point [facility] [address] [place] [address] BEDSIDE GLUCOSE Collected: 04/13/2018 Status: F Source: [place] 12:17 PM [facility] REPOSITORY TYPE CODE TESTS RESULT OUT OF REFERENCE UNITS RANGE LAB L501.080 70-110 mg/dL High BEDSIDE GLU 154 Result Comment: MANAGEMENT OF PATIENT CARE PER NURSING PROTOCOL Performed By: #### L501.080 #### [facility] Point [facility] [address] [place] [address] BEDSIDE GLUCOSE Collected: 04/13/2018 Status: F Source: [place] 12:17 PM [facility] REPOSITORY TYPE CODE TESTS RESULT OUT OF REFERENCE UNITS RANGE LAB L501.080 70-110 mg/dL High BEDSIDE GLU 154 Result Comment: MANAGEMENT OF PATIENT CARE PER NURSING PROTOCOL Performed By: #### L501.080 #### [facility] [address] [place] [address] BEDSIDE GLUCOSE Collected: 04/13/2018 Status: F Source: [place]UDY 9:54 AM [facility] REPOSITORY TYPE CODE TESTS RESULT OUT OF REFERENCE UNITS RANGE LAB L501.080 70-110 mg/dL High BEDSIDE GLU 184 Result Comment: MANAGEMENT OF PATIENT CARE PER NURSING PROTOCOL Performed By: #### L501.080 #### [facility] Point [facility] [address] [place] [address] BEDSIDE GLUCOSE Collected: 04/13/2018 Status: F Source: [place] 9:54 AM [facility] REPOSITORY TYPE CODE TESTS RESULT OUT OF REFERENCE UNITS RANGE LAB L501.080 70-110 mg/dL High BEDSIDE GLU 184 Result Comment: MANAGEMENT OF PATIENT CARE PER NURSING PROTOCOL Performed By: #### L501.080 #### [facility] Point [facility] [address] [place] [address] BEDSIDE GLUCOSE Collected: 04/12/2018 Status: F Source: [place] 12:08 PM [facility] REPOSITORY TYPE CODE TESTS RESULT OUT OF REFERENCE UNITS RANGE LAB L501.080 70-110 mg/dL High BEDSIDE GLU 216 Result Comment: MANAGEMENT OF PATIENT CARE PER NURSING PROTOCOL Performed By: #### L501.080 #### [facility] Point [facility] [address] [place] [address] BEDSIDE GLUCOSE Collected: 04/12/2018 Status: F Source: [place] 12:08 PM [facility] REPOSITORY TYPE CODE TESTS RESULT OUT OF REFERENCE UNITS RANGE LAB L501.080 70-110 mg/dL High BEDSIDE GLU 216 Result Comment: MANAGEMENT OF PATIENT CARE PER NURSING PROTOCOL Performed By: #### L501.080 #### [facility] [address] [place] [address] BEDSIDE GLUCOSE Collected: 04/12/2018 Status: F Source: [place] 9:48 AM [facility] REPOSITORY TYPE CODE TESTS RESULT OUT OF REFERENCE UNITS RANGE LAB L501.080 70-110 mg/dL High BEDSIDE GLU 276 Result Comment: MANAGEMENT OF PATIENT CARE PER NURSING PROTOCOL Performed By: #### L501.080 #### [facility] [address] [place] [address] BEDSIDE GLUCOSE Collected: 04/12/2018 Status: F Source: [place] 9:48 AM [facility] REPOSITORY TYPE CODE TESTS RESULT OUT OF REFERENCE UNITS RANGE LAB L501.080 70-110 mg/dL High BEDSIDE GLU 276 Result Comment: MANAGEMENT OF PATIENT CARE PER NURSING PROTOCOL Performed By: #### L501.080 #### [facility] Point [facility] [address] [place] [address] BEDSIDE GLUCOSE Collected: 04/11/2018 Status: F Source: [place] 11:37 AM [facility] REPOSITORY TYPE CODE TESTS RESULT OUT OF REFERENCE UNITS RANGE LAB L501.080 70-110 mg/dL High BEDSIDE GLU 132 Result Comment: MANAGEMENT OF PATIENT CARE PER NURSING PROTOCOL Performed By: #### L501.080 #### [facility] Point [facility] [address] [place] [address] BEDSIDE GLUCOSE Collected: 04/11/2018 Status: F Source: [place] 11:37 AM [facility] REPOSITORY TYPE CODE TESTS RESULT OUT OF REFERENCE UNITS RANGE LAB L501.080 70-110 mg/dL High BEDSIDE GLU 132 Result Comment: MANAGEMENT OF PATIENT CARE PER NURSING PROTOCOL Performed By: #### L501.080 #### [facility] Point [facility] [address] [place] [address] BEDSIDE GLUCOSE Collected: 04/11/2018 Status: F Source: [place] 9:44 AM [facility] REPOSITORY TYPE CODE TESTS RESULT OUT OF REFERENCE UNITS RANGE LAB L501.080 70-110 mg/dL High BEDSIDE GLU 148 Result Comment: MANAGEMENT OF PATIENT CARE PER NURSING PROTOCOL Performed By: #### L501.080 #### [facility] Point [facility] [address] [place], [place] [address] BEDSIDE GLUCOSE Collected: 04/11/2018 Status: F Source: [place] 9:44 AM [facility] REPOSITORY TYPE CODE TESTS RESULT OUT OF REFERENCE UNITS RANGE LAB L501.080 70-110 mg/dL High BEDSIDE GLU 148 Result Comment: MANAGEMENT OF PATIENT CARE PER NURSING PROTOCOL Performed By: #### L501.080 #### [facility] [address] [place], [place] [address] PROGRESS Observed: 04/08/2018 Status: COMPLETED Source: [place] 12:33 PM [facility] REPOSITORY HNO ID: [id number] Author: Lauren Berger Service: (none) Author Type: Physician Type: Progress Notes Filed: 04/08/2018 12:58 PM Note Text: Tmax: OD: 24 (although higher 1d and 1 month post phaco) Pachy: 593, 597 OS: 25 (09/29/13) Lasers and Surgeries: OD: 11/29/13 CEIOL ([place]) OS: 09/02/09 CEIOL/PPV/AFE/EL for TRD ([facility] / [place]) Ocular Medication Intol and Non-efficacy: Cosopt: poorly [...] 04/07/2018 Status: F Source: [place] 12:31 PM [facility] REPOSITORY TYPE CODE TESTS RESULT OUT OF RANGE REFERENCE UNITS LAB L501.080 70-110 mg/dL Normal BEDSIDE GLU 98 Result Comment: MANAGEMENT OF PATIENT CARE PER NURSING PROTOCOL Performed By: #### L501.080 #### [facility] Laboratory Point of [facility] [address] [facility] [place], [place] [address] BEDSIDE GLUCOSE Collected: 04/07/2018 Status: F Source: [place] 12:31 PM [facility] REPOSITORY TYPE CODE TESTS RESULT OUT OF RANGE REFERENCE UNITS LAB L501.080 70-110 mg/dL Normal BEDSIDE GLU 98 Result Comment: MANAGEMENT OF PATIENT CARE PER NURSING PROTOCOL Performed By: #### L501.080 #### [facility] Laboratory Point [facility] [address] [place] [address] BEDSIDE GLUCOSE Collected: 04/07/2018 Status: F Source: [place] 10:27 AM [facility] REPOSITORY TYPE CODE TESTS RESULT OUT OF REFERENCE UNITS RANGE LAB L501.080 70-110 mg/dL High BEDSIDE GLU 124 Result Comment: MANAGEMENT OF PATIENT CARE PER NURSING PROTOCOL Performed By: #### L501.080 #### [facility] Point [facility] [address] [place] [address] BEDSIDE GLUCOSE Collected: 04/07/2018 Status: F Source: [place] 10:27 AM [facility] REPOSITORY TYPE CODE TESTS RESULT OUT OF REFERENCE UNITS RANGE LAB L501.080 70-110 mg/dL High BEDSIDE GLU 124 Result Comment: MANAGEMENT OF PATIENT CARE PER NURSING PROTOCOL Performed By: #### L501.080 #### [facility] Point [facility] [address] [place] [address] BEDSIDE GLUCOSE Collected: 04/06/2018 Status: F Source: [place] 11:40 AM [facility] REPOSITORY TYPE CODE TESTS RESULT OUT OF REFERENCE UNITS RANGE LAB L501.080 70-110 mg/dL High BEDSIDE GLU 148 Result Comment: MANAGEMENT OF PATIENT CARE PER NURSING PROTOCOL Performed By: #### L501.080 #### [facility] Point [facility] [address] [place] [address] BEDSIDE GLUCOSE Collected: 04/06/2018 Status: F Source: [place] 9:12 AM [facility] REPOSITORY TYPE CODE TESTS RESULT OUT OF REFERENCE UNITS RANGE LAB L501.080 70-110 mg/dL High BEDSIDE GLU 198 Result Comment: MANAGEMENT OF PATIENT CARE PER NURSING PROTOCOL Performed By: #### L501.080 #### [facility] Point [facility] [address] [place] [address] BEDSIDE GLUCOSE Collected: 04/05/2018 Status: F Source: [place] 11:46 AM [facility] REPOSITORY TYPE CODE TESTS RESULT OUT OF RANGE REFERENCE UNITS LAB L501.080 70-110 mg/dL Normal BEDSIDE GLU 103 Result Comment: MANAGEMENT OF PATIENT CARE PER NURSING PROTOCOL Performed By: #### L501.080 #### [facility] [address] [place] [address] BEDSIDE GLUCOSE Collected: 04/05/2018 Status: F Source: [place] 9:30 AM [facility] REPOSITORY TYPE CODE TESTS RESULT OUT OF REFERENCE UNITS RANGE LAB L501.080 70-110 mg/dL High BEDSIDE GLU 140 Result Comment: MANAGEMENT OF PATIENT CARE PER NURSING PROTOCOL Performed By: #### L501.080 #### [facility] [address] [place] [address] BEDSIDE GLUCOSE Collected: 04/04/2018 Status: F Source: [place] 12:22 PM [facility] REPOSITORY TYPE CODE TESTS RESULT OUT OF REFERENCE UNITS RANGE LAB L501.080 70-110 mg/dL High BEDSIDE GLU 136 Result Comment: MANAGEMENT OF PATIENT CARE PER NURSING PROTOCOL Performed By: #### L501.080 #### [facility] [address] [place] [address] BEDSIDE GLUCOSE Collected: 04/04/2018 Status: F Source: [place] 10:18 AM [facility] REPOSITORY TYPE CODE TESTS RESULT OUT OF REFERENCE UNITS RANGE LAB L501.080 70-110 mg/dL High BEDSIDE GLU 116 Result Comment: MANAGEMENT OF PATIENT CARE PER NURSING PROTOCOL Performed By: #### L501.080 #### [facility] [address] [place] [address] BEDSIDE GLUCOSE Collected: 04/04/2018 Status: F Source: [place] 9:52 AM [facility] REPOSITORY TYPE CODE TESTS RESULT OUT OF REFERENCE UNITS RANGE LAB L501.080 70-110 mg/dL High BEDSIDE GLU 118 Result Comment: MANAGEMENT OF PATIENT CARE PER NURSING PROTOCOL Performed By: #### L501.080 #### [facility] [address] [place] [address] BEDSIDE GLUCOSE Collected: 04/01/2018 Status: F Source: [place] 11:53 AM [facility] REPOSITORY TYPE CODE TESTS RESULT OUT OF REFERENCE UNITS RANGE LAB L501.080 70-110 mg/dL High BEDSIDE GLU 200 Result Comment: MANAGEMENT OF PATIENT CARE PER NURSING PROTOCOL Performed By: #### L501.080 #### [facility] [address] [place] [address] BEDSIDE GLUCOSE Collected: 04/01/2018 Status: F Source: [place] 9:42 AM [facility] REPOSITORY TYPE CODE TESTS RESULT OUT OF REFERENCE UNITS RANGE LAB L501.080 70-110 mg/dL High BEDSIDE GLU 254 Result Comment: MANAGEMENT OF PATIENT CARE PER NURSING PROTOCOL Performed By: #### L501.080 #### [facility] [address] [place] [address] BEDSIDE GLUCOSE Collected: 03/31/2018 Status: F Source: [place] 12:16 PM [facility] REPOSITORY TYPE CODE TESTS RESULT OUT OF REFERENCE UNITS RANGE LAB L501.080 70-110 mg/dL High BEDSIDE GLU 142 Result Comment: MANAGEMENT OF PATIENT CARE PER NURSING PROTOCOL Performed By: #### L501.080 #### [facility] [address] [place] [address] BEDSIDE GLUCOSE Collected: 03/31/2018 Status: F Source: [place] 11:42 AM [facility] REPOSITORY TYPE CODE TESTS RESULT OUT OF RANGE REFERENCE UNITS LAB L501.080 70-110 mg/dL Normal BEDSIDE GLU 82 Result Comment: MANAGEMENT OF PATIENT CARE PER NURSING PROTOCOL Performed By: #### L501.080 #### [facility] [address] [place] [address] BEDSIDE GLUCOSE Collected: 03/31/2018 Status: F Source: [place] 9:34 AM [facility] REPOSITORY TYPE CODE TESTS RESULT OUT OF REFERENCE UNITS RANGE LAB L501.080 70-110 mg/dL High BEDSIDE GLU 143 Result Comment: MANAGEMENT OF PATIENT CARE PER NURSING PROTOCOL Performed By: #### L501.080 #### [facility] [address] [place] [address] CBC W/DIFF, AUTOMATED Collected: 03/30/2018 Status: F Source: [place] 3:36 PM [facility] REPOSITORY TYPE CODE TESTS RESULT OUT [...] Lymph 1.67 Performed By: #### L100.0100 #### [facility] Laboratory [address] [place], [address] COMPREHENSIVE METABOLIC Collected: 03/30/2018 Status: F Source: [facility] 3:36 PM [facility] REPOSITORY TYPE CODE TESTS RESULT OUT [...] 8 Performed By: #### L500.4050, L501.9520 #### [facility] Laboratory [address] [facility] [id number] THYROID STIM HORMONE Collected: 03/30/2018 Status: F Source: [place] ([facility]) 3:36 PM [facility] REPOSITORY TYPE CODE TESTS RESULT OUT OF RANGE REFERENCE UNITS LAB L501.9520 0.358-3.74 uIU/mL Normal TSH 2.70 Performed By: #### L500.4050, L501.9520 #### [facility] [address] [place], [place], [id number] BEDSIDE GLUCOSE Collected: 03/30/2018 Status: F Source: [place] 11:06 AM [facility] REPOSITORY TYPE CODE TESTS RESULT OUT OF RANGE REFERENCE UNITS LAB L501.080 70-110 mg/dL Normal BEDSIDE GLU 88 Result Comment: MANAGEMENT OF PATIENT CARE PER NURSING PROTOCOL Performed By: #### L501.080 #### [facility] [address] [place] [address] BEDSIDE GLUCOSE Collected: 03/30/2018 Status: F Source: [place] 9:09 AM [facility] REPOSITORY TYPE CODE TESTS RESULT OUT OF REFERENCE UNITS RANGE LAB L501.080 70-110 mg/dL High BEDSIDE GLU 138 Result Comment: MANAGEMENT OF PATIENT CARE PER NURSING PROTOCOL Performed By: #### L501.080 #### [facility] [address] [place] [address] BEDSIDE GLUCOSE Collected: 03/29/2018 Status: F Source: [place] 12:03 PM [facility] REPOSITORY TYPE CODE TESTS RESULT OUT OF RANGE REFERENCE UNITS LAB L501.080 70-110 mg/dL Normal BEDSIDE GLU 82 Result Comment: MANAGEMENT OF PATIENT CARE PER NURSING PROTOCOL Performed By: #### L501.080 #### [facility] [address] [place] [address] BEDSIDE GLUCOSE Collected: 03/29/2018 Status: F Source: [place] 9:53 AM [facility] REPOSITORY TYPE CODE TESTS RESULT OUT OF REFERENCE UNITS RANGE LAB L501.080 70-110 mg/dL High BEDSIDE GLU 150 Result Comment: MANAGEMENT OF PATIENT CARE PER NURSING PROTOCOL Performed By: #### L501.080 #### [facility] [address] [place] [address] PROGRESS Observed: 03/25/2018 Status: COMPLETED Source: [place] 8:28 AM [facility] REPOSITORY O ID: [id number] Author: Marilyn Reyes Service: (none) Author Type: Physician Type: Progress Notes Filed: 04/07/2018 10:02 AM Note Text: [facility] MICROGRAPHIC OPERATIVE REPORT SERVICE DATE: 03/25/2018 SERVICE TIME: 9:08 AM LOCATION: [place]:[facility] REFERRING PROVIDER: Sara Smith APRN.F[employer] PEDDLER [address] [facility] [place] [address] PROCEDURE START TIME: 8:28 AM PROCEDURE END [...] Available at Bedside: Inside pathology report # [id number], Date of Biopsy: 02/25/18 and Biopsy Performed [...] Available at Bedside: Inside pathology report # [id number], Date of Biopsy: 02/25/18 and Biopsy Performed [...] WITH VERBAL UNDERSTANDING: Yes 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 March 25, 2018 9:11 AM. Venus Bates MD, Dermatology Surgery Fellow March 25, 2018 4:18 PM I agree with the operative note independently gathered by the clinical customer support analyst and the remaining scribed note accurately describes [...] 25, 2018 TIME: 8:28 AM PAGER/CONTACT #: [email or web address] Observed: 03/25/2018 Status: COMPLETED Source: [place] 8:15 AM [facility] REPOSITORY Office Visit (DERMIN) DEL BARRIOS ([id number]) 1960 M [facility] Date Time Provider Department 03/25/18 8:15 AM MARILYN REYES During your visit today, we recorded the following information about you: Pulse Blood pressure 77/minute 124/72 Marilyn Reyes MD 04/07/2018 10:02 AM Signed [facility] MICROGRAPHIC OPERATIVE REPORT SERVICE DATE: 03/25/2018 SERVICE TIME: 9:08 AM LOCATION: [place]:[facility] REFERRING PROVIDER: Sara Smith APRN.CNP [address] [facility] [place] [address] PROCEDURE START TIME: 8:28 AM PROCEDURE END [...] Available at Bedside: Inside pathology report # [id number], Date of Biopsy: 02/25/18 and Biopsy Performed [...] Available at Bedside: Inside pathology report # [id number], Date of Biopsy: 02/25/18 and Biopsy Performed [...] WITH VERBAL UNDERSTANDING: Yes 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 March 25, 2018 9:11 AM. Venus Bates MD, Dermatology Surgery Fellow March 25, 2018 4:18 PM I agree with the operative note independently gathered by the clinical customer support analyst and the remaining scribed note accurately describes [...] ANY QUESTIONS, PLEASE CALL OUR OFFICE AT [phone] ext [phone] or [phone] FOR EMERGENCIES AFTER 4:30 PLEASE CALL [phone] AND ASK FOR THE DERMATOLOGY FELLOW CLAIM APPROVER Referring Provider: SARA SMITH ([facility]) [[id number]] Allergies As of Date: 03/25/2018 Noted Allergy [...] or removal, surgical wound [Z48.01] Order(s):CONSULT TO [facility] AT HOME [[id number]] Order #: [id number]: 1 [] cephALEXin (KEFLEX) 500 mg capsuleTake [...] narcisa* FLUTICASONE 50 MCG/ACTUATION * Use 1 Bonfield in each nostril o* GABAPENTIN 600 MG [...] [I10] INVALID FOR* Priority: E Diabetic neuropathy ([facility]) [E11.40] INVALID FOR* GERD (Gastroesophageal Reflux Disease) [K21.9] More... Hyperlipidemia [E78.5] Priority: F More... Proteinuria [R80.9] More... Pressure ulcer, other site(707.09) ([facility]) [L89.*INVALID FOR*01/28/2014 CKD III [N18.3] INVALID FOR* Priority: D More... 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 Ulcer of ankle ([facility]) [L97.309] INVALID FOR* Peripheral vascular disease, unspecified ([facility]) *INVALID FOR* S/P BKA (below knee amputation) ([facility]) [Z89.519] INVALID FOR* Lymphedema [I89.0] INVALID FOR* Hearing loss [H91.90] INVALID FOR* Rhinitis [J31.0] INVALID FOR* Chronic serous otitis media [H65.20] INVALID FOR*05/28/2017 Chronic otitis media of right ear [H66.91] INVALID FOR*05/28/2017 Deep vein thrombosis [I82.409] INVALID FOR* Priority: B More... Morbid obesity ([facility]) [E66.01] INVALID FOR* Priority: G Open wound [...] ANY QUESTIONS, PLEASE CALL OUR OFFICE AT [phone] ext [phone] FOR EMERGENCIES AFTER 4:30 PLEASE CALL [phone] AND ASK FOR THE DERMATOLOGY FELLOW CLAIM APPROVER Prescriptions ordered this encounter Disp Refills Start [...] BEDSIDE GLUCOSE Collected: 03/23/2018 Status: F Source: [place] 9:09 AM [facility] REPOSITORY TYPE CODE TESTS RESULT OUT OF REFERENCE UNITS RANGE LAB L501.080 70-110 mg/dL High BEDSIDE GLU 292 Result Comment: MANAGEMENT OF PATIENT CARE PER NURSING PROTOCOL Performed By: #### L501.080 #### [facility] Laboratory Point of Care [address] [place] [address] BEDSIDE GLUCOSE Collected: 03/22/2018 Status: F Source: [place] 11:15 AM [facility] REPOSITORY TYPE CODE TESTS RESULT OUT OF REFERENCE UNITS RANGE LAB L501.080 70-110 mg/dL High BEDSIDE GLU 175 Result Comment: MANAGEMENT OF PATIENT CARE PER NURSING PROTOCOL Performed By: #### L501.080 #### [facility] Point of Care [address] [place] [address] BEDSIDE GLUCOSE Collected: 03/22/2018 Status: F Source: [place] 9:18 AM [facility] REPOSITORY TYPE CODE TESTS RESULT OUT OF REFERENCE UNITS RANGE LAB L501.080 70-110 mg/dL High BEDSIDE GLU 248 Result Comment: MANAGEMENT OF PATIENT CARE PER NURSING PROTOCOL Performed By: #### L501.080 #### [facility] Point of Care [address] [place] [address] BEDSIDE GLUCOSE Collected: 03/21/2018 Status: F Source: [place] 11:06 AM [facility] REPOSITORY TYPE CODE TESTS RESULT OUT OF REFERENCE UNITS RANGE LAB L501.080 70-110 mg/dL High BEDSIDE GLU 141 Result Comment: MANAGEMENT OF PATIENT CARE PER NURSING PROTOCOL Performed By: #### L501.080 #### [facility] Point of Care [address] [place] [address] BEDSIDE GLUCOSE Collected: 03/21/2018 Status: F Source: [place] 9:14 AM [facility] REPOSITORY TYPE CODE TESTS RESULT OUT OF REFERENCE UNITS RANGE LAB L501.080 70-110 mg/dL High BEDSIDE GLU 163 Result Comment: MANAGEMENT OF PATIENT CARE PER NURSING PROTOCOL Performed By: #### L501.080 #### [facility] Point of Care [address] [place] [address] BEDSIDE GLUCOSE Collected: 03/17/2018 Status: F Source: [place] 11:53 AM [facility] REPOSITORY TYPE CODE TESTS RESULT OUT OF REFERENCE UNITS RANGE LAB L501.080 70-110 mg/dL High BEDSIDE GLU 131 Result Comment: MANAGEMENT OF PATIENT CARE PER NURSING PROTOCOL Performed By: #### L501.080 #### [facility] Point of Care [address] [place] [address] BEDSIDE GLUCOSE Collected: 03/17/2018 Status: F Source: [place] 9:58 AM [facility] REPOSITORY TYPE CODE TESTS RESULT OUT OF REFERENCE UNITS RANGE LAB L501.080 70-110 mg/dL High BEDSIDE GLU 190 Result Comment: MANAGEMENT OF PATIENT CARE PER NURSING PROTOCOL Performed By: #### L501.080 #### [facility] Point of Care [address] [place] [address] BEDSIDE GLUCOSE Collected: 03/16/2018 Status: F Source: [place] 11:44 AM [facility] REPOSITORY TYPE CODE TESTS RESULT OUT OF REFERENCE UNITS RANGE LAB L501.080 70-110 mg/dL High BEDSIDE GLU 133 Result Comment: MANAGEMENT OF PATIENT CARE PER NURSING PROTOCOL Performed By: #### L501.080 #### [facility] Point of Care [address] [place] [address] BEDSIDE GLUCOSE Collected: 03/16/2018 Status: F Source: [place] 9:22 AM [facility] REPOSITORY TYPE CODE TESTS RESULT OUT OF REFERENCE UNITS RANGE LAB L501.080 70-110 mg/dL High BEDSIDE GLU 211 Result Comment: MANAGEMENT OF PATIENT CARE PER NURSING PROTOCOL Performed By: #### L501.080 #### [facility] Point of Care [address] [place] [address] BEDSIDE GLUCOSE Collected: 03/15/2018 Status: F Source: [place] 11:01 AM [facility] REPOSITORY TYPE CODE TESTS RESULT OUT OF REFERENCE UNITS RANGE LAB L501.080 70-110 mg/dL High BEDSIDE GLU 125 Result Comment: MANAGEMENT OF PATIENT CARE PER NURSING PROTOCOL Performed By: #### L501.080 #### [facility] Point of Care [address] [place] [address] BEDSIDE GLUCOSE Collected: 03/15/2018 Status: F Source: [place] 9:06 AM [facility] REPOSITORY TYPE CODE TESTS RESULT OUT OF REFERENCE UNITS RANGE LAB L501.080 70-110 mg/dL High BEDSIDE GLU 204 Result Comment: MANAGEMENT OF PATIENT CARE PER NURSING PROTOCOL Performed By: #### L501.080 #### [facility] Point of Care [address] [place] [address] BEDSIDE GLUCOSE Collected: 03/14/2018 Status: F Source: [place] 11:26 AM [facility] REPOSITORY TYPE CODE TESTS RESULT OUT OF REFERENCE UNITS RANGE LAB L501.080 70-110 mg/dL High BEDSIDE GLU 149 Result Comment: MANAGEMENT OF PATIENT CARE PER NURSING PROTOCOL Performed By: #### L501.080 #### [facility] Point of Care [address] [place] [address] BEDSIDE GLUCOSE Collected: 03/14/2018 Status: F Source: [place] 9:27 AM [facility] REPOSITORY TYPE CODE TESTS RESULT OUT OF REFERENCE UNITS RANGE LAB L501.080 70-110 mg/dL High BEDSIDE GLU 221 Result Comment: MANAGEMENT OF PATIENT CARE PER NURSING PROTOCOL Performed By: #### L501.080 #### [facility] Point of Care [address] [place] [address] BEDSIDE GLUCOSE Collected: 03/11/2018 Status: F Source: [place] 12:08 PM [facility] REPOSITORY TYPE CODE TESTS RESULT OUT OF REFERENCE UNITS RANGE LAB L501.080 70-110 mg/dL High BEDSIDE GLU 116 Result Comment: MANAGEMENT OF PATIENT CARE PER NURSING PROTOCOL Performed By: #### L501.080 #### [facility] Point of Care [address] [place] [address] BEDSIDE GLUCOSE Collected: 03/11/2018 Status: F Source: [place] 10:16 AM [facility] REPOSITORY TYPE CODE TESTS RESULT OUT OF RANGE REFERENCE UNITS LAB L501.080 70-110 mg/dL Normal BEDSIDE GLU 108 Result Comment: MANAGEMENT OF PATIENT CARE PER NURSING PROTOCOL Performed By: #### L501.080 #### [facility] Point of Care [address] [place] [address] BEDSIDE GLUCOSE Collected: 03/11/2018 Status: F Source: [place] 10:06 AM [facility] REPOSITORY TYPE CODE TESTS RESULT OUT OF RANGE REFERENCE UNITS LAB L501.080 70-110 mg/dL Normal BEDSIDE GLU 95 Result Comment: MANAGEMENT OF PATIENT CARE PER NURSING PROTOCOL Performed By: #### L501.080 #### [facility] Point of Care [address] [place] [address] BEDSIDE GLUCOSE Collected: 03/11/2018 Status: F Source: [place] 9:52 AM [facility] REPOSITORY TYPE CODE TESTS RESULT OUT OF RANGE REFERENCE UNITS LAB L501.080 70-110 mg/dL Normal BEDSIDE GLU 87 Result Comment: MANAGEMENT OF PATIENT CARE PER NURSING PROTOCOL Performed By: #### L501.080 #### [facility] Point of Care [address] [place] [address] BEDSIDE GLUCOSE Collected: 03/11/2018 Status: F Source: [place] 9:39 AM [facility] REPOSITORY TYPE CODE TESTS RESULT OUT OF RANGE REFERENCE UNITS LAB L501.080 70-110 mg/dL Normal BEDSIDE GLU 94 Result Comment: MANAGEMENT OF PATIENT CARE PER NURSING PROTOCOL Performed By: #### L501.080 #### [facility] Point of Care [address] [place] [address] BEDSIDE GLUCOSE Collected: 03/10/2018 Status: F Source: [place] 11:36 AM [facility] REPOSITORY TYPE CODE TESTS RESULT OUT OF REFERENCE UNITS RANGE LAB L501.080 70-110 mg/dL High BEDSIDE GLU 128 Result Comment: MANAGEMENT OF PATIENT CARE PER NURSING PROTOCOL Performed By: #### L501.080 #### [facility] Point of Care [address] [place] [address] BEDSIDE GLUCOSE Collected: 03/10/2018 Status: F Source: [place] 9:41 AM [facility] REPOSITORY TYPE CODE TESTS RESULT OUT OF REFERENCE UNITS RANGE LAB L501.080 70-110 mg/dL High BEDSIDE GLU 142 Result Comment: MANAGEMENT OF PATIENT CARE PER NURSING PROTOCOL Performed By: #### L501.080 #### [facility] Point of Care [address] [place] [address] BEDSIDE GLUCOSE Collected: 03/09/2018 Status: F Source: [place] 11:02 AM [facility] REPOSITORY TYPE CODE TESTS RESULT OUT OF REFERENCE UNITS RANGE LAB L501.080 70-110 mg/dL High BEDSIDE GLU 123 Result Comment: MANAGEMENT OF PATIENT CARE PER NURSING PROTOCOL Performed By: #### L501.080 #### [facility] Point of Care [address] [place] [address] BEDSIDE GLUCOSE Collected: 03/09/2018 Status: F Source: [place] 8:48 AM [facility] REPOSITORY TYPE CODE TESTS RESULT OUT OF REFERENCE UNITS RANGE LAB L501.080 70-110 mg/dL High BEDSIDE GLU 139 Result Comment: MANAGEMENT OF PATIENT CARE PER NURSING PROTOCOL Performed By: #### L501.080 #### [facility] Point of Care [address] [place] [address] BEDSIDE GLUCOSE Collected: 03/08/2018 Status: F Source: [place] 11:40 AM [facility] REPOSITORY TYPE CODE TESTS RESULT OUT OF REFERENCE UNITS RANGE LAB L501.080 70-110 mg/dL High BEDSIDE GLU 134 Result Comment: MANAGEMENT OF PATIENT CARE PER NURSING PROTOCOL Performed By: #### L501.080 #### [facility] Point of Care [address] [place], [place] [address] BEDSIDE GLUCOSE Collected: 03/08/2018 Status: F Source: [place] 9:48 AM [facility] REPOSITORY TYPE CODE TESTS RESULT OUT OF REFERENCE UNITS RANGE LAB L501.080 70-110 mg/dL High BEDSIDE GLU 129 Result Comment: MANAGEMENT OF PATIENT CARE PER NURSING PROTOCOL Performed By: #### L501.080 #### [facility] Point of Care [address] [place] [address] BEDSIDE GLUCOSE Collected: 03/07/2018 Status: F Source: [place] 11:34 AM [facility] REPOSITORY TYPE CODE TESTS RESULT OUT OF RANGE REFERENCE UNITS LAB L501.080 70-110 mg/dL Normal BEDSIDE GLU 102 Result Comment: MANAGEMENT OF PATIENT CARE PER NURSING PROTOCOL Performed By: #### L501.080 #### [facility] Point of Care [address] [place] [address] BEDSIDE GLUCOSE Collected: 03/07/2018 Status: F Source: [place] 9:34 AM [facility] REPOSITORY TYPE CODE TESTS RESULT OUT OF REFERENCE UNITS RANGE LAB L501.080 70-110 mg/dL High BEDSIDE GLU 142 Result Comment: MANAGEMENT OF PATIENT CARE PER NURSING PROTOCOL Performed By: #### L501.080 #### [facility] Point of Care [address] [place] [address] BEDSIDE GLUCOSE Collected: 03/04/2018 Status: F Source: [place] 11:26 AM [facility] REPOSITORY TYPE CODE TESTS RESULT OUT OF REFERENCE UNITS RANGE LAB L501.080 70-110 mg/dL High BEDSIDE GLU 253 Result Comment: MANAGEMENT OF PATIENT CARE PER NURSING PROTOCOL Performed By: #### L501.080 #### [facility] Point of Care [address] [place] [address] BEDSIDE GLUCOSE Collected: 03/04/2018 Status: F Source: [place] 9:28 AM [facility] REPOSITORY TYPE CODE TESTS RESULT OUT OF REFERENCE UNITS RANGE LAB L501.080 70-110 mg/dL High BEDSIDE GLU 312 Result Comment: MANAGEMENT OF PATIENT CARE PER NURSING PROTOCOL Performed By: #### L501.080 #### [facility] Point of Care [address] [place] [address] PROGRESS Observed: 03/04/2018 Status: COMPLETED Source: [place] 8:52 AM [facility] REPOSITORY HNO ID: [id number] Author: Sara Portillo ([facility]) [facility] Service: (none) Author Type: Nurse Practitioner Type: Progress Notes Filed: 03/04/2018 8:52 AM Note Text: Spoke with patient regarding pathology and the need for further treatment. Results sent to [facility] Surgery Staff Pool. BEDSIDE GLUCOSE Collected: 03/03/2018 Status: F Source: [place] 11:53 AM [facility] REPOSITORY TYPE CODE TESTS RESULT OUT OF REFERENCE UNITS RANGE LAB L501.080 70-110 mg/dL High BEDSIDE GLU 127 Result Comment: MANAGEMENT OF PATIENT CARE PER NURSING PROTOCOL Performed By: #### L501.080 #### [facility] Point of Care [address] [place], [place] [address] BEDSIDE GLUCOSE Collected: 03/03/2018 Status: F Source: [place] 9:42 AM [facility] REPOSITORY TYPE CODE TESTS RESULT OUT OF REFERENCE UNITS RANGE LAB L501.080 70-110 mg/dL High BEDSIDE GLU 134 Result Comment: MANAGEMENT OF PATIENT CARE PER NURSING PROTOCOL Performed By: #### L501.080 #### [facility] Point of Care [address] [place], [place] [address] CNPN Observed: 03/03/2018 Status: COMPLETED Source: [place] 12:00 AM [facility] REPOSITORY Telephone (DERMIN) DENISDEL Oneal ([id number]) 1960 M T Date Time Provider Department 03/03/18 SARA SMITH (KARMEN) DERMANGELLA During your visit today, we recorded the following information about you: Meera Guaman 03/03/2018 9:11 AM Signed Patient states he received a call, but no message was left. Patient asking if his test results were back Sara Smith APRN.CNP 03/03/2018 9:24 AM Signed Left voicemail to return call regarding pathology results. Sara Smith APRN.CNP March 03, 2018 9:24 AM Sara Smith APRN.CNP 03/04/2018 8:52 AM Signed DEPARTMENT OF DERMATOLOGY SURGERY APPOINTMENT ROUTING SLIP Patient Phone #: [phone] Referring Provider: Sara Smith APRN.CNP FINAL DIAGNOSIS [...] (FLONASE) 50 mcg/actuation nasal spray Use 1 [place] in each nostril once daily. 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 - Xhjtq-yv-wibebku kidney injury ([facility]) 01/28/2014 - Anemia - Background diabetic retinopathy(362.01) followed by [facility] - Corbin's esophagus - Below knee amputation of left lower extremity ([facility]) 09/28/2013 - Chronic kidney disease (CKD) - Chronic obstructive pulmonary disease (COPD) ([facility]) bronchitis - DDD (degenerative disc disease), lumbosacral - DM (diabetes mellitus) with complications ([facility]) On pre-meal insulin coverage - DVT (deep venous thrombosis) 05/18/2012 left leg - Essential hypertension, benign - Foot ulcer due to secondary DM ([facility]) 2009 both feet, sees Podiatry - Fracture lt ankle stress fracture - GERD (gastroesophageal reflux disease) nexium - Hyperlipidemia - Neuropathy ([facility]) hands AND feet - PDR (proliferative diabetic retinopathy) ([facility]) - Peripheral vascular disease ([facility]) - Proliferative diabetic retinopathy(362.02) - Proteinuria being [...] h* FLUTICASONE 50 MCG/ACTUATION * Use 1 [place] in each nostril o* GABAPENTIN 600 MG [...] [I10] INVALID FOR* Priority: E Diabetic neuropathy ([facility]) [E11.40] INVALID FOR* GERD (Gastroesophageal Reflux Disease) [K21.9] More... Hyperlipidemia [E78.5] Priority: F More... Proteinuria [R80.9] More... Pressure ulcer, other site(707.09) ([facility]) [L89.*INVALID FOR*01/28/2014 CKD III [N18.3] INVALID FOR* Priority: D More... Diabetic ulcer of right foot ([facility]) [E11.621, L9*INVALID FOR*01/28/2014 Ndqwu-pl-elweciq kidney injury ([facility]) [N17.9, N1*INVALID FOR*01/31/2014 Chronic anticoagulation [Z79.01] INVALID FOR* More... 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 Ulcer of ankle ([facility]) [L97.309] INVALID FOR* Peripheral vascular disease, unspecified ([facility]) *INVALID FOR* S/P BKA (below knee amputation) ([facility]) [Z89.519] INVALID FOR* Lymphedema [I89.0] INVALID FOR* Hearing loss [H91.90] INVALID FOR* Rhinitis [J31.0] INVALID FOR* Chronic serous otitis media [H65.20] INVALID FOR*05/28/2017 Chronic otitis media of right ear [H66.91] INVALID FOR*05/28/2017 Deep vein thrombosis [I82.409] INVALID FOR* Priority: B More... Morbid obesity ([facility]) [E66.01] INVALID FOR* Priority: G Open wound of right foot [S91.301A] INVALID FOR* Borderline glaucoma with ocular hypertension [H*INVALID FOR* Ulcer of toe of right foot (HCC) [L97.519] INVALID FOR* Bilateral chronic serous otitis media [H65.23] INVALID FOR* Wound of left leg [S81.802A] INVALID FOR* Cellulitis [L03.90] INVALID FOR*01/21/2017 Diabetes mellitus (HCC) [E11.9] INVALID FOR* Encounter Status:Closed by OLE ANDREA MD on 03/04/18 BEDSIDE GLUCOSE Collected: 03/02/2018 Status: F Source: [place] 11:14 AM [facility] REPOSITORY TYPE CODE TESTS RESULT OUT OF REFERENCE UNITS RANGE LAB L501.080 70-110 mg/dL High BEDSIDE GLU 148 Result Comment: MANAGEMENT OF PATIENT CARE PER NURSING PROTOCOL Performed By: #### L501.080 #### [facility] Laboratory Point of Care [address] [facility] [place] [address] BEDSIDE GLUCOSE Collected: 03/02/2018 Status: F Source: [place] 9:19 AM [facility] REPOSITORY TYPE CODE TESTS RESULT OUT OF REFERENCE UNITS RANGE LAB L501.080 70-110 mg/dL High BEDSIDE GLU 173 Result Comment: MANAGEMENT OF PATIENT CARE PER NURSING PROTOCOL Performed By: #### L501.080 #### [facility] Point of Care [address] [place] [address] BEDSIDE GLUCOSE Collected: 03/01/2018 Status: F Source: [place] 11:20 AM [facility] REPOSITORY TYPE CODE TESTS RESULT OUT OF REFERENCE UNITS RANGE LAB L501.080 70-110 mg/dL High BEDSIDE GLU 178 Result Comment: MANAGEMENT OF PATIENT CARE PER NURSING PROTOCOL Performed By: #### L501.080 #### [facility] Point of Care [address] [place] [address] BEDSIDE GLUCOSE Collected: 03/01/2018 Status: F Source: [place] 9:23 AM [facility] REPOSITORY TYPE CODE TESTS RESULT OUT OF REFERENCE UNITS RANGE LAB L501.080 70-110 mg/dL High BEDSIDE GLU 226 Result Comment: MANAGEMENT OF PATIENT CARE PER NURSING PROTOCOL Performed By: #### L501.080 #### [facility] Laboratory Point of Care [address] [place] [address] BEDSIDE GLUCOSE Collected: 02/28/2018 Status: F Source: [place] 11:53 AM [facility] REPOSITORY TYPE CODE TESTS RESULT OUT OF REFERENCE UNITS RANGE LAB L501.080 70-110 mg/dL High BEDSIDE GLU 170 Result Comment: MANAGEMENT OF PATIENT CARE PER NURSING PROTOCOL Performed By: #### L501.080 #### [facility] Laboratory Point of Care [address] [place] [address] BEDSIDE GLUCOSE Collected: 02/28/2018 Status: F Source: [place] 9:52 AM [facility] REPOSITORY TYPE CODE TESTS RESULT OUT OF REFERENCE UNITS RANGE LAB L501.080 70-110 mg/dL High BEDSIDE GLU 226 Result Comment: MANAGEMENT OF PATIENT CARE PER NURSING PROTOCOL Performed By: #### L501.080 #### [facility] Laboratory Point of Care [address] [place] [address] SURGICAL PATHOLOGY Observed: 02/25/2018 Status: F Source: [place] 11:35 AM [facility] REPOSITORY Specimen originated from [facility] Specimen #: [id number] Submitting Physician: MICHEL JETT FINAL DIAGNOSIS A. [...] in one cassette. Gross examination performed at [facility], [address] [place] [address] FFS 02/25/2018 8:01:43 PM Date of Report: 02/28/2018 Date of Procedure: 02/25/2018 Date of Receipt: 02/25/2018 Submitted by: SARA SMITH, VISUAL [employer]CH[employer]ISING ASSOCIATE-C Location: [facility] DERM Diagnostic interpretation performed at [facility], [address] [place] [address]. PROGRESS Observed: 02/25/2018 Status: COMPLETED Source: [place] 10:53 AM [facility] REPOSITORY HNO ID: [id number] Author: Sara Portillo (Jennifer Smith Service: (none) Author Type: Nurse Practitioner [...] (FLONASE) 50 mcg/actuation nasal spray Use 1 [place] in each nostril once daily. gabapentin (NEURONTIN) [...] to proceed. Derm Nurse Practitioner: Sara Smith APRN.KARMEN PREOPERATIVE/PROCEDURAL VERIFICATION: Patient verified by: Name and Date of Procedure to be performed: Shave biopsy Site of the procedure confirmed:Yes Site(s): A) Left Temporal Scalp, B) Right Vertex, and C) Left Occipital Scalp Staff involved: Lindsey Smith APRN.KARMEN and Laya Estevez Ma Relevant documentation, images, [...] February 25, 2018 10:53 AM. Sara Smith APRN.KARMEN Attending: Dr. Andrea I agree with the ROS and Past Histories independently gathered by the clinical customer support analyst and the remaining scribed note accurately describes my personal service to the patient. ALLA Observed: 02/25/2018 Status: COMPLETED Source: [place] 10:45 AM [facility] REPOSITORY Office Visit (DERMIN) DEL BARRIOS ([id number]) 1960 M [facility] Date Time Provider Department 02/25/18 10:45 AM [facility] DER[facility] During your visit today, we recorded the following information about you: Sara Smith APRN.KARMEN 02/25/2018 11:42 AM Signed SKIN EXAM CC: [...] (FLONASE) 50 mcg/actuation nasal spray Use 1 Bonfield in each nostril once daily. gabapentin (NEURONTIN) [...] February 25, 2018 10:53 AM. Sara Smith APRN.KARMEN Attending: Dr. Andrea I agree with the ROS and Past Histories independently gathered by the clinical customer support analyst and the remaining scribed note accurately describes my personal service to the patient. Laya Estevez Ma 02/25/2018 11:11 AM Signed [facility] DERMATOLOGY DEPARTMENT ? Preventing harmful UV exposure [...] or concerns, please contact the office at [phone]. Referring Provider: SELF [200] Allergies As of [...] lentigo [L81.4] Seborrheic keratosis [L82.1] Order(s):SURGICAL PATHOLOGY [[id number]] Order #: [id number] Prescriptions as of 02/25/2018 Sig: BRIMONIDINE 0.2 [...] h* FLUTICASONE 50 MCG/ACTUATION * Use 1 Bonfield in each nostril o* GABAPENTIN 600 MG [...] [I10] INVALID FOR* Priority: E Diabetic neuropathy ([facility]) [E11.40] INVALID FOR* GERD (Gastroesophageal Reflux Disease) [K21.9] More... Hyperlipidemia [E78.5] Priority: F More... Proteinuria [R80.9] More... Pressure ulcer, other site(707.09) ([facility]) [L89.*INVALID FOR*01/28/2014 CKD III [N18.3] INVALID FOR* Priority: D More... Diabetic ulcer of right foot ([facility]) [E11.621, L9*INVALID FOR*01/28/2014 Tbqbj-yc-ybvirso kidney injury ([facility]) [N17.9, N1*INVALID FOR*01/31/2014 Chronic anticoagulation [Z79.01] INVALID FOR* More... 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 Ulcer of ankle ([facility]) [L97.309] INVALID FOR* Peripheral vascular disease, unspecified ([facility]) *INVALID FOR* S/P BKA (below knee amputation) ([facility]) [Z89.519] INVALID FOR* Lymphedema [I89.0] INVALID FOR* Hearing loss [H91.90] INVALID FOR* Rhinitis [J31.0] INVALID FOR* Chronic serous otitis media [H65.20] INVALID FOR*05/28/2017 Chronic otitis media of right ear [H66.91] INVALID FOR*05/28/2017 Deep vein thrombosis [I82.409] INVALID FOR* Priority: B More... Morbid obesity ([facility]) [E66.01] INVALID FOR* Priority: G Open wound of right foot [S91.301A] INVALID FOR* Borderline glaucoma with ocular hypertension [H*INVALID FOR* Ulcer of toe of right foot ([facility]) [L97.519] INVALID FOR* Bilateral chronic serous otitis media [H65.23] INVALID FOR* Wound of left leg [S81.802A] INVALID FOR* Cellulitis [L03.90] INVALID FOR*01/21/2017 Diabetes mellitus ([facility]) [E11.9] INVALID FOR* Other instructions from your clinician: [facility] DERMATOLOGY DEPARTMENT ? Preventing harmful UV exposure [...] or concerns, please contact the office at [phone]. Disposition: Return for Yearly Full Body Skin Exam. Follow-up and Disposition History Recorded Encounter Status:Closed by SARA SMITH CNP on 02/25/18 BEDSIDE GLUCOSE Collected: 02/24/2018 Status: F Source: [place] 11:45 AM [facility] REPOSITORY TYPE CODE TESTS RESULT OUT OF REFERENCE UNITS RANGE LAB L501.080 70-110 mg/dL High BEDSIDE GLU 207 Result Comment: MANAGEMENT OF PATIENT CARE PER NURSING PROTOCOL Performed By: #### L501.080 #### [facility] Laboratory Point of Care [address] [place] [address] BEDSIDE GLUCOSE Collected: 02/24/2018 Status: F Source: [place] 9:39 AM [facility] REPOSITORY TYPE CODE TESTS RESULT OUT OF REFERENCE UNITS RANGE LAB L501.080 70-110 mg/dL High BEDSIDE GLU 242 Result Comment: MANAGEMENT OF PATIENT CARE PER NURSING PROTOCOL Performed By: #### L501.080 #### [facility] Point of Care [address] [place] [address] BEDSIDE GLUCOSE Collected: 02/23/2018 Status: F Source: [place] 9:54 AM [facility] REPOSITORY TYPE CODE TESTS RESULT OUT OF REFERENCE UNITS RANGE LAB L501.080 70-110 mg/dL High BEDSIDE GLU 437 Result Comment: MANAGEMENT OF PATIENT CARE PER NURSING PROTOCOL Performed By: #### L501.080 #### [facility] Point of Care [address] [place] [address] BEDSIDE GLUCOSE Collected: 02/23/2018 Status: F Source: [place] 9:19 AM [facility] REPOSITORY TYPE CODE TESTS RESULT OUT OF REFERENCE UNITS RANGE LAB L501.080 70-110 mg/dL High BEDSIDE GLU 444 Result Comment: MANAGEMENT OF PATIENT CARE PER NURSING PROTOCOL Performed By: #### L501.080 #### [facility] Point of Care [address] [place] [address] BEDSIDE GLUCOSE Collected: 02/22/2018 Status: F Source: [place] 11:15 AM [facility] REPOSITORY TYPE CODE TESTS RESULT OUT OF REFERENCE UNITS RANGE LAB L501.080 70-110 mg/dL High BEDSIDE GLU 169 Result Comment: MANAGEMENT OF PATIENT CARE PER NURSING PROTOCOL Performed By: #### L501.080 #### [facility] Point of Care [address] [place] [address] BEDSIDE GLUCOSE Collected: 02/22/2018 Status: F Source: [place] 9:18 AM [facility] REPOSITORY TYPE CODE TESTS RESULT OUT OF REFERENCE UNITS RANGE LAB L501.080 70-110 mg/dL High BEDSIDE GLU 166 Result Comment: MANAGEMENT OF PATIENT CARE PER NURSING PROTOCOL Performed By: #### L501.080 #### [facility] Point of Care [address] [place] [address] BEDSIDE GLUCOSE Collected: 02/21/2018 Status: F Source: [place] 11:20 AM [facility] REPOSITORY TYPE CODE TESTS RESULT OUT OF REFERENCE UNITS RANGE LAB L501.080 70-110 mg/dL High BEDSIDE GLU 181 Result Comment: MANAGEMENT OF PATIENT CARE PER NURSING PROTOCOL Performed By: #### L501.080 #### [facility] Point of Care [address] [place] [address] BEDSIDE GLUCOSE Collected: 02/21/2018 Status: F Source: [place] 9:22 AM [facility] REPOSITORY TYPE CODE TESTS RESULT OUT OF REFERENCE UNITS RANGE LAB L501.080 70-110 mg/dL High BEDSIDE GLU 261 Result Comment: MANAGEMENT OF PATIENT CARE PER NURSING PROTOCOL Performed By: #### L501.080 #### [facility] Point of Care [address] [place] [address] BEDSIDE GLUCOSE Collected: 02/18/2018 Status: F Source: [place] 11:44 AM [facility] REPOSITORY TYPE CODE TESTS RESULT OUT OF REFERENCE UNITS RANGE LAB L501.080 70-110 mg/dL High BEDSIDE GLU 181 Result Comment: MANAGEMENT OF PATIENT CARE PER NURSING PROTOCOL Performed By: #### L501.080 #### [facility] Point of Care [address] [place] [address] BEDSIDE GLUCOSE Collected: 02/18/2018 Status: F Source: [place] 9:51 AM [facility] REPOSITORY TYPE CODE TESTS RESULT OUT OF REFERENCE UNITS RANGE LAB L501.080 70-110 mg/dL High BEDSIDE GLU 183 Result Comment: MANAGEMENT OF PATIENT CARE PER NURSING PROTOCOL Performed By: #### L501.080 #### [facility] Point of Care [address] [place] [address] BEDSIDE GLUCOSE Collected: 02/17/2018 Status: F Source: [place] 11:31 AM [facility] REPOSITORY TYPE CODE TESTS RESULT OUT OF REFERENCE UNITS RANGE LAB L501.080 70-110 mg/dL High BEDSIDE GLU 139 Result Comment: MANAGEMENT OF PATIENT CARE PER NURSING PROTOCOL Performed By: #### L501.080 #### [facility] Point of Care [address] [place] [address] BEDSIDE GLUCOSE Collected: 02/17/2018 Status: F Source: [place] 9:31 AM [facility] REPOSITORY TYPE CODE TESTS RESULT OUT OF REFERENCE UNITS RANGE LAB L501.080 70-110 mg/dL High BEDSIDE GLU 186 Result Comment: MANAGEMENT OF PATIENT CARE PER NURSING PROTOCOL Performed By: #### L501.080 #### [facility] Point of Care [address] [place] [address] BEDSIDE GLUCOSE Collected: 02/16/2018 Status: F Source: [place] 11:11 AM [facility] REPOSITORY TYPE CODE TESTS RESULT OUT OF RANGE REFERENCE UNITS LAB L501.080 70-110 mg/dL Normal BEDSIDE GLU 92 Result Comment: MANAGEMENT OF PATIENT CARE PER NURSING PROTOCOL Performed By: #### L501.080 #### [facility] Point of Care [address] [place] [address] BEDSIDE GLUCOSE Collected: 02/16/2018 Status: F Source: [place] 9:13 AM [facility] REPOSITORY TYPE CODE TESTS RESULT OUT OF REFERENCE UNITS RANGE LAB L501.080 70-110 mg/dL High BEDSIDE GLU 129 Result Comment: MANAGEMENT OF PATIENT CARE PER NURSING PROTOCOL Performed By: #### L501.080 #### [facility] Point of Care [address] [place] [address] BEDSIDE GLUCOSE Collected: 02/15/2018 Status: F Source: [place] 11:59 AM [facility] REPOSITORY TYPE CODE TESTS RESULT OUT OF REFERENCE UNITS RANGE LAB L501.080 70-110 mg/dL High BEDSIDE GLU 203 Result Comment: MANAGEMENT OF PATIENT CARE PER NURSING PROTOCOL Performed By: #### L501.080 #### [facility] Point of Care [address] [place] [address] BEDSIDE GLUCOSE Collected: 02/15/2018 Status: F Source: [place] 10:04 AM [facility] REPOSITORY TYPE CODE TESTS RESULT OUT OF REFERENCE UNITS RANGE LAB L501.080 70-110 mg/dL High BEDSIDE GLU 271 Result Comment: MANAGEMENT OF PATIENT CARE PER NURSING PROTOCOL Performed By: #### L501.080 #### [facility] Point of Care [address] [place] [address] BEDSIDE GLUCOSE Collected: 02/14/2018 Status: F Source: [place] 11:06 AM [facility] REPOSITORY TYPE CODE TESTS RESULT OUT OF REFERENCE UNITS RANGE LAB L501.080 70-110 mg/dL High BEDSIDE GLU 133 Result Comment: MANAGEMENT OF PATIENT CARE PER NURSING PROTOCOL Performed By: #### L501.080 #### [facility] Point of Care [address] [place] [address] BEDSIDE GLUCOSE Collected: 02/14/2018 Status: F Source: [place] 9:11 AM [facility] REPOSITORY TYPE CODE TESTS RESULT OUT OF REFERENCE UNITS RANGE LAB L501.080 70-110 mg/dL High BEDSIDE GLU 157 Result Comment: MANAGEMENT OF PATIENT CARE PER NURSING PROTOCOL Performed By: #### L501.080 #### [facility] Point of Care [address] [place] [address] OFFICE VISIT (INTERNAL Observed: 02/12/2018 Status: UNK Source: [facility]) 8:10 PM HOSPITALS REPOSITORY Chief Complaint here for dm followup History of Present Illness b 1 cereal lunch ...mom s meal (like meals on wheels) dinner .. makes meal hgm fbs 152, 140 lunch 229, 113 pm 107, 225 hs 118, 172 goes to hyperbaric rx still still trying to get left stump to heal to then allow prosth. dr. aruna is antwanone luis e. leg is better lives in apt. no [...] TIMES A DAY; Therapy: 05Nov2014 to (Last Rx:[id number]) Requested for: 21Nfw9578 Ordered Rx By: Sergo Victor; Dispense: 0 Days ; #:4 X 100 Strip Box; Refill: 3;For: Diabetes mellitus type 2, uncontrolled; SHASHA = N; Verified Transmission to [address]; Msg to Pharmacy: dx e 11 on insulin; Last Updated By: Edenilson Meade; 01/17/2018 7:45:29 PM Accu-Chek Loretta Plus w/Device Kit; USE DIRECTED; Therapy: 05Nov2014 to (Last Rx:05Nov2014) Requested for: 05Nov2014 Ordered Rx By: Sergo Victor; Dispense: 0 Days ; #:1 Kit; Refill: 0;For: Diabetes mellitus type 2, uncontrolled; SHASHA = N; Verified Transmission to [facility] [place] [address]; Msg to Pharmacy: dx 250.02 on insulin Accu-Chek Multiclix Lancets Miscellaneous; Uses 4 daily; Therapy: 30Mar2013 to (Last Rx:[id number]) Requested for: 75Buq1086 Ordered Rx By: Sergo Victor; Dispense: 0 Days ; #:4 X 102 Miscellaneous Box; Refill: 3;For: Diabetes mellitus type 2, uncontrolled; SHASHA = N; Verified Transmission to [facility]; Msg to Pharmacy: dx e11.65 on insulin Accu-Chek Softclix Lancets Miscellaneous; use 4 times a day to check sugar; Therapy: 43Yji8284 to (Last Rx:87Fmi3561) Requested for: 21Nea9624; Status: ACTIVE - Transmit to Pharmacy - Failed Ordered Rx By: Sergo Victor; Dispense: 0 Days ; #:4 X 100 Miscellaneous Box; Refill: 3;For: Diabetes mellitus type 2, uncontrolled; SHASHA = N; Failed Transmission to [address]; Msg to Pharmacy: dx e11.65 on insulin; Last Updated By: aMurizio MeadeZiptronix; 01/17/2018 8:24:13 PM BD Pen Needle Mini U/F 31G X 5 MM Miscellaneous; use 3 daily; Therapy: 18Jan2017 to (Last Rx:70Iew2407) Requested for: 09Pil3973 Ordered Rx By: Sergo Victor; Dispense: 0 Days ; #:3 X 100 Miscellaneous Box; Refill: 3;For: Diabetes mellitus type 2, uncontrolled; SHASHA = N; Verified Transmission to [address]; Last Updated By: DeshaunAtheroNova; 01/18/2017 11:36:07 AM BD Pen Needle Short U/F 31G X 8 MM Miscellaneous; uses 6 daily; Therapy: 24Aug2017 to (Last Rx:00Oft8752) Requested for: 08Mei9933 Ordered Rx By: Sergo Victor; Dispense: 0 Days ; #:6 X 100 Miscellaneous Box; Refill: 3;For: Diabetes mellitus type 2, uncontrolled; SHASHA = N; Verified Transmission to [facility]; Msg to Pharmacy: dx E11.65 on insulin Gabapentin 600 MG Oral Tablet; TAKE ONE TABLET BY MOUTH EVERY DAY; Therapy: 08Mar2017 to (Evaluate:08Uet4647) Requested for: 43Tev5331; Last Rx:15Fkc1627 Ordered Rx By: Sergo Victor; Dispense: 90 Days ; #:90 TAB; Refill: 3;For: Diabetes mellitus type 2, uncontrolled; SHASHA = N; Verified Transmission to [address], [place]; Last Updated By: Edenilson Meade; 01/04/2018 2:26:30 PM Gabapentin 800 MG Oral Tablet; TAKE TWO TABLETS BY MOUTH EVERY NIGHT AT BEDTIME; Therapy: 72Nop2742 to (Evaluate:04Uvo4772) Requested for: 15Wlf2491; Last Rx:[id number] Ordered Rx By: Sergo Victor; Dispense: 90 Days ; #:180 TAB; Refill: 3;For: Diabetes mellitus type 2, uncontrolled; SHASHA = N; Verified Transmission to [address], ; Last Updated By: Edenilson [place]; 01/04/2018 2:26:31 PM HumuLIN R U-500 KwikPen 500 UNIT/ML Subcutaneous Solution Pen-injector; inject 145 units in the am, 95 units at lunch and 80 units pre evening meal; Therapy: 30Gmm1424 to (Evaluate:03Jul2018) Requested for: 61Mms9692; Last Rx:[id number] Ordered Rx By: Sergo Victor; Dispense: 90 Days ; #:66 ML; Refill: 1;For: Diabetes mellitus type 2, uncontrolled; SHASHA = N; Verified Transmission to [address]; Last Updated By: Edenilson Meade; 01/04/2018 2:25:05 PM NovoLOG FlexPen 100 UNIT/ML Subcutaneous Solution Pen-injector; INJECT 60 UNIT Daily; Therapy: 70Lbc0779 to (Last Rx:10Ugx5078) Requested for: 23Mmz3739 Ordered Rx By: Sergo Victor; Dispense: 0 Days ; #:2 X 3 ML Pen (5 Pens); Refill: 5;For: Diabetes mellitus type 2, uncontrolled; SHASHA = N; Verified Transmission to [address]; Last Upda rebeka By: Edenilson Meade; 08/02/2017 10:08:38 AM TRUEplus Pen [place] 31G X 8 MM Miscellaneous; USE THREE DAILY DIRECTED; Therapy: 51Lhg6399 to (Evaluate:28Sep2018) Requested for: 03Oct2017; Last Rx:[id number] Ordered Rx By: Sergo Victor; Dispense: 90 Days ; #:300 EA; Refill: 3;For: Diabetes mellitus type 2, uncontrolled; SHASHA = N; Verified Transmission to [address]; Last Updated By: TalkBin; 10/03/2017 8:04:51 PM Eliquis 2.5 MG Oral Tablet; TAKE ONE TABLET BY MOUTH TWICE DAILY; Therapy: 07Mar2015 to (Evaluate:03Jul2018) Requested for: 61Qtt4640; Last Rx:30Mqc6458 Ordered Rx By: Sergo Victor; Dispense: 30 Days ; #:60 TAB; Refill: 5;For: Health Maintenance; SHASHA = N; Verified Transmission to [address]; Last Updated By: Deshaun [employer]; 01/04/2018 2:25:12 PM Omeprazole 40 MG Oral Capsule Delayed Release; TAKE 1 CAPSULE Daily; Therapy: 66Zxc6408 to (Evaluate:75Jqd7716) Requested for: 14Uwd6737; Last Rx:76Uiw2587 Ordered Rx By: Sergo Victor; Dispense: 90 Days ; #:90 Capsule Delayed Release; Refill: 3;For: Health Maintenance; SHASHA = N; Verified Transmission to [address]; Last Updated By: Deshaun [employer]; 01/08/2018 1:14:35 PM Vitamin D (Ergocalciferol) 66371 UNIT Oral Capsule; TAKE ONE CAPSULE BY MOUTH ONCE A WEEK; Therapy: 07Apr2015 to (Evaluate:72Rrq5519) Requested for: 03Oct2017; Last Rx:03Oct2017 Ordered Rx By: Sergo Victor; Dispense: 84 Days ; #:12 Capsule; Refill: 0;For: Health Maintenance; SHASHA = N; Verified Transmission to [address]; Last Updated By: Deshaun [employer]; 10/03/2017 8:09:58 PM Bystolic 10 MG Oral Tablet; TAKE ONE TABLET BY MOUTH ONCE DAILY; Therapy: 48Hsz7507 to (Evaluate:91Otj3939) Requested for: 78Whl1393; Last Rx:03Lkw5940 Ordered Rx By: Sergo Victor; Dispense: 90 Days ; #:90 TAB; Refill: 3;For: HTN (hypertension); SHASHA = N; Verified Transmission to [address], ; Last Updated By: Deshaun [employer]; 01/04/2018 2:25:08 PM Losartan Potassium 50 MG Oral Tablet; TAKE 1 TABLET DAILY; Therapy: 99Gqy0744 to (Evaluate:77Hcr3076) Requested for: 08Mar2017; Last Rx:08Mar2017 Ordered Rx By: Sergo Victor; Dispense: 90 Days ; #:90 Tablet; Refill: 3;For: HTN (hypertension); SHASHA = N; Verified Transmission to [address], ; Last Updated By: Deshaun [employer]; 03/08/2017 3:16:43 PM Accu-Chek Softclix Lancet Dev [...] AM Baclofen 10 MG Oral Tablet; Therapy: 41Cxn3162 to Recorded Rx By: KOBE; Dispense: 30 [...] MG Oral Tablet; Therapy: 22Mar2017 to Recorded Rx By: EDEN; Dispense: 90 [...] DAILY; Therapy: 04Oct2017 to Recorded Rx By: oKbe; Dispense: 30 Days ; #:30 CAPS; Refill: 0; SHASHA = N; Record; Last Updated By: Diana Pond; 11/05/2017 11:14:55 AM Fluorouracil 2 % External Solution; Therapy: 61Yrb7279 to Recorded Rx By: SOLO; Dispense: 10 Days ; #:10 SOLN; Refill: 0; SHASHA = N; Record; Last Updated By: Sergo Victor; 08/02/2017 9:59:04 AM HumaLOG KwikPen 100 UNIT/ML Subcutaneous Solution Pen-injector; Therapy: 02Aug2017 to Recorded Rx By: LETHA; Dispense: 50 [...] AM Vitals Vital Signs Recorded: 11Feb2018 10:21AM Vqylietqivw78.7 F, Temporal Heart Rate88 Bjzvmvam753 Kiondrtdo22 O2 Eirsbjsacb00, RA Physical Exam in wheel chair cor rrr abd soft obese left bka r. leg wrapped chest clear Results/Data Basic Metabolic Vnpcg77Hjg6813 12:30PMSergo Victor Test NameResultFlagReference Glucose, Acjvm527 mg/dLH74 - 99 Sodium, Rvygj506 mmol/L136 - 145 POTASSIUM4.6 mmol/L3.5 - 5.3 Chloride, Dwgyb192 mmol/L98 - 107 Bicarbonate, Serum27 mmol/L21 - 32 Anion Gap, Serum15 mmol/L10 - 20 Blood Urea Nitrogen, Serum46 mg/dLH6 - 23 CREATININE1.70 mg/dLHSee Below Reference Range: 0.50 - 1.30 GFR Non Pisfxdkm61 mL/min/1.73m2A>60 GFR Brkkkrlr49 mL/min/1.73m2A>60 CALCULATIONS OF ESTIMATED GFR ARE PERFORMED USING THE MDRD STUDY EQUATION FOR THE IDMS-TRACEABLE CREATININE METHODS. CLIN CHEM 2007;53:766-72 Calcium, Serum9.2 mg/dL8.6 - 10.6 IO Hgb H6H44Nsu9146 11:32AMNekSergo ware Test NameResultFlagReference IO Hgb A1c6.74.4-6.4% IO glucose, blood, finger stick via hand held diviene10Lbm3498 11:25Sergo De Jesus Test NameResultFlagReference IO Fingerstick / Blood Xiqslym30699153ge/dL Diagnoses/Problems Diabetes mellitus type 2, uncontrolled (250.02) (E11.65) Encounter for preventive health examination (V70.0) (Z00.00) Orders Diabetes mellitus type 2, uncontrolled Basic Metabolic Panel; Source:Blood (BLD); Status:Resulted - Requires Verification; Done: 11Feb2018 12:30PM Performed:[facility]; Due:34Agu3487;Ordered; For:Diabetes mellitus type 2, uncontrolled; Ordered By:Sergo Victor; IO glucose, blood, finger stick via hand held monitor; Status:Resulted - Requires Verification; Done: 11Feb2018 11:25AM Performed:In Office; Due:12May2018; Last Updated By:Diana Pond; 02/11/2018 11:25:12 AM;Ordered; For:Diabetes mellitus type 2, uncontrolled; Ordered By:Sergo Victor; IO Hgb A1C; Status:Resulted - Requires Verification; Done: 11Feb2018 11:32AM Performed:In Office; Due:42Aiq4955; Last Updated By:Diana Pond; 02/11/2018 11:32:28 AM;Ordered; [...] followup [address] reese flu shot. End of Encounter Meds Accu-Chek Loretta Plus In Vitro Strip; USE 4 TIMES A DAY; Therapy: 05Nov2014 to (Last Rx:52Ang8832) Requested for: 23Bvu5538 Ordered Accu-Chek Loretta Plus w/Device Kit; USE DIRECTED; Therapy: 05Nov2014 to (Last Rx:05Nov2014) Requested for: 05Nov2014 Ordered Accu-Chek Multiclix Lancets Miscellaneous; Uses 4 daily; Therapy: 30Mar2013 to (Last Rx:03Lnl7496) Requested for: 13Jan2018 Ordered Accu-Chek Softclix Lancet Dev KIT; Therapy: 11Nov2016 to Recorded Accu-Chek Softclix Lancets Miscellaneous; use 4 times a day to check sugar; Therapy: 18Jan2017 to (Last Rx:17Cdk8899) Requested for: 50Oko5377; Status: ACTIVE - Transmit to Pharmacy - Failed Ordered Atorvastatin Calcium 40 MG Oral Tablet; Therapy: 01Oct2017 to Recorded Baclofen 10 MG Oral Tablet; Therapy: 03Mev2439 to Recorded BD Pen Needle Mini U/F 31G X 5 MM Miscellaneous; use 3 daily; Therapy: 18Jan2017 to (Last Rx:48Yqd0161) Requested for: 33Rif1218 Ordered BD Pen Needle Short U/F 31G X 8 MM Miscellaneous; uses 6 daily; Therapy: 24Aug2017 to (Last Rx:91Ecg8838) Requested for: 43Zcs2761 Ordered Brimonidine Tartrate 0.2 % Ophthalmic Solution; Therapy: 25Nov2014 to Recorded Bystolic 10 MG Oral Tablet; TAKE ONE TABLET BY MOUTH ONCE DAILY; Therapy: 04Geh9436 to (Evaluate:34Vao2819) Requested for: 31Nqt7076; Last Rx:39Gos4757 Ordered Clopidogrel Bisulfate 75 MG Oral Tablet; Therapy: 22Mar2017 to Recorded Eliquis 2.5 MG Oral Tablet; TAKE ONE TABLET BY MOUTH TWICE DAILY; Therapy: 07Mar2015 to (Evaluate:03Jul2018) Requested for: 22Qmq1078; Last Rx:74Pnc7344 Ordered Famotidine 40 MG Oral Tablet; Therapy: 01Oct2017 to Recorded Ferrex 150 150 MG Oral Capsule; TAKE ONE CAPSULE BY MOUTH ONCE DAILY; Therapy: 04Oct2017 to Recorded Fluorouracil 2 % External Solution; Therapy: 26Jan2017 to Recorded Gabapentin 600 MG Oral Tablet; TAKE ONE TABLET BY MOUTH EVERY DAY; Therapy: 08Mar2017 to (Evaluate:61Bdd5438) Requested for: 11Gus5058; Last Rx:50Lhd7424 Ordered Gabapentin 800 MG Oral Tablet; TAKE TWO TABLETS BY MOUTH EVERY NIGHT AT BEDTIME; Therapy: 18Jan2017 to (Evaluate:00Lkg7202) Requested for: 30Zwg6774; Last Rx:12Wsi3476 Ordered HumaLOG KwikPen 100 UNIT/ML Subcutaneous Solution Pen-injector; Therapy: 02Aug2017 to Recorded HumuLIN R U-500 KwikPen 500 UNIT/ML Subcutaneous Solution Pen-injector; inject 145 units in the am, 95 units at lunch and 80 units pre evening meal; Therapy: 21Nbi6247 to (Evaluate:03Jul2018) Requested for: 42Yvw9092; Last Rx:80Xdc4710 Ordered Jardiance 25 MG Oral Tablet; Therapy: 01Oct2017 to Recorded Latanoprost 0.005 % Ophthalmic Solution; Therapy: 18Jun2015 to Recorded Losartan Potassium 50 MG Oral Tablet; TAKE 1 TABLET DAILY; Therapy: 15Irx3555 to (Evaluate:53Alx0699) Requested for: 08Mar2017; Last Rx:08Mar2017 Ordered NovoFine [place] 30G X 8 MM Miscellaneous; Therapy: 11Nov2016 to Recorded NovoLOG FlexPen 100 UNIT/ML Subcutaneous Solution Pen-injector; INJECT 60 UNIT Daily; Therapy: 02Aug2017 to (Last Rx:42Nzh3685) Requested for: 11Axb5729 Ordered Omeprazole 40 MG Oral Capsule Delayed Release; TAKE 1 CAPSULE Daily; Therapy: 33Kbj3910 to (Evaluate:47Lmd6157) Requested for: 77Rpy7049; Last Rx:85Mew6578 Ordered TRUEplus Pen [place] 31G X 8 MM Miscellaneous; USE THREE DAILY DIRECTED; Therapy: 50Fek1872 to (Evaluate:69Pxn7853) Requested for: 03Oct2017; Last Rx:03Oct2017 Ordered Trulicity 1.5 MG/0.5ML Subcutaneous Solution Pen-injector; Therapy: 01Oct2017 to Recorded Vitamin D (Ergocalciferol) 24734 UNIT Oral Capsule; TAKE ONE CAPSULE BY MOUTH ONCE A WEEK; Therapy: 07Apr2015 to (Evaluate:68Aps7852) Requested for: 03Oct2017; Last Rx:38Gmc6546 Ordered Signatures Electronically signed by : Sergo Victor MD; Feb 12 2018 8:10PM EST (Author) BASIC METABOLIC PANEL Collected: 02/11/2018 Status: F Source: [place] 12:30 PM [facility] REPOSITORY TYPE CODE TESTS [...] CALCIUM 9.2 Performed By: #### BMP #### [facility] [address] [place] [address] PROGRESS Observed: 02/10/2018 Status: COMPLETED Source: [place] 8:29 AM [facility] REPOSITORY HNO ID: [id number] Author: Lauren Dempsey Service: (none) Author Type: Physician Type: Progress [...] up with Dr. Berger, currently on T 06/08, alp, sana. both eyes. Recommend close observation [...] with all of its relevant components. Lauren Dempsey MD February 10, 2018 9:10 AM BEDSIDE GLUCOSE Collected: 02/09/2018 Status: F Source: [place] 11:05 AM [facility] REPOSITORY TYPE CODE TESTS RESULT OUT OF REFERENCE UNITS RANGE LAB L501.080 70-110 mg/dL High BEDSIDE GLU 134 Result Comment: MANAGEMENT OF PATIENT CARE PER NURSING PROTOCOL Performed By: #### L501.080 #### [facility] Point of Care [address] [place], [place] [address] BEDSIDE GLUCOSE Collected: 02/09/2018 Status: F Source: [place] 9:11 AM [facility] REPOSITORY TYPE CODE TESTS RESULT OUT OF REFERENCE UNITS RANGE LAB L501.080 70-110 mg/dL High BEDSIDE GLU 173 Result Comment: MANAGEMENT OF PATIENT CARE PER NURSING PROTOCOL Performed By: #### L501.080 #### [facility] Point of Care [address] [place] [address] BEDSIDE GLUCOSE Collected: 02/08/2018 Status: F Source: [place] 11:34 AM [facility] REPOSITORY TYPE CODE TESTS RESULT OUT OF REFERENCE UNITS RANGE LAB L501.080 70-110 mg/dL High BEDSIDE GLU 178 Result Comment: MANAGEMENT OF PATIENT CARE PER NURSING PROTOCOL Performed By: #### L501.080 #### [place] [facility] Point of Care [address] [place] [address] BEDSIDE GLUCOSE Collected: 02/08/2018 Status: F Source: [place] 9:36 AM [facility] REPOSITORY TYPE CODE TESTS RESULT OUT OF REFERENCE UNITS RANGE LAB L501.080 70-110 mg/dL High BEDSIDE GLU 244 Result Comment: MANAGEMENT OF PATIENT CARE PER NURSING PROTOCOL Performed By: #### L501.080 #### [place] [facility] Point of Care [address] [place] [address] PROGRESS Observed: 02/04/2018 Status: COMPLETED Source: [place] 8:16 AM [facility] REPOSITORY HNO ID: [id number] Author: Gisselle Mahan (Fel) Service: (none) Author Type: Fellow Type: Progress [...] was too high in November for Dr. Dempsey. Given posterior segment ischemia, recommend add timolol [...] 02/03/2018 Status: F Source: [place] 11:32 AM [facility] REPOSITORY TYPE CODE TESTS RESULT OUT OF REFERENCE UNITS RANGE LAB L501.080 70-110 mg/dL High BEDSIDE GLU 148 Result Comment: MANAGEMENT OF PATIENT CARE PER NURSING PROTOCOL Performed By: #### L501.080 #### [facility] Point of Care [address] [place], [place] [address] BEDSIDE GLUCOSE Collected: 02/03/2018 Status: F Source: [place] 9:29 AM [facility] REPOSITORY TYPE CODE TESTS RESULT OUT OF REFERENCE UNITS RANGE LAB L501.080 70-110 mg/dL High BEDSIDE GLU 203 Result Comment: MANAGEMENT OF PATIENT CARE PER NURSING PROTOCOL Performed By: #### L501.080 #### [place] [facility] Point of Care [address] [place] [address] BEDSIDE GLUCOSE Collected: 02/02/2018 Status: F Source: [place] 11:31 AM [facility] REPOSITORY TYPE CODE TESTS RESULT OUT OF REFERENCE UNITS RANGE LAB L501.080 70-110 mg/dL High BEDSIDE GLU 126 Result Comment: MANAGEMENT OF PATIENT CARE PER NURSING PROTOCOL Performed By: #### L501.080 #### [facility] Point of Care [address] [place] [address] BEDSIDE GLUCOSE Collected: 02/02/2018 Status: F Source: [place] 9:22 AM [facility] REPOSITORY TYPE CODE TESTS RESULT OUT OF REFERENCE UNITS RANGE LAB L501.080 70-110 mg/dL High BEDSIDE GLU 165 Result Comment: MANAGEMENT OF PATIENT CARE PER NURSING PROTOCOL Performed By: #### L501.080 #### [facility] Point of Care [address] [place] [address] BEDSIDE GLUCOSE Collected: 02/01/2018 Status: F Source: [place] 9:53 AM [facility] REPOSITORY TYPE CODE TESTS RESULT OUT OF REFERENCE UNITS RANGE LAB L501.080 70-110 mg/dL High BEDSIDE GLU 198 Result Comment: MANAGEMENT OF PATIENT CARE PER NURSING PROTOCOL Performed By: #### L501.080 #### [facility] Point of Care [address] [place] [address] BEDSIDE GLUCOSE Collected: 02/01/2018 Status: F Source: [place] 8:18 AM [facility] REPOSITORY TYPE CODE TESTS RESULT OUT OF REFERENCE UNITS RANGE LAB L501.080 70-110 mg/dL High BEDSIDE GLU 230 Result Comment: MANAGEMENT OF PATIENT CARE PER NURSING PROTOCOL Performed By: #### L501.080 #### [facility] Point of Care [address] [place] [address] BEDSIDE GLUCOSE Collected: 01/27/2018 Status: F Source: [place] 12:04 PM [facility] REPOSITORY TYPE CODE TESTS RESULT OUT OF REFERENCE UNITS RANGE LAB L501.080 70-110 mg/dL High BEDSIDE GLU 120 Result Comment: MANAGEMENT OF PATIENT CARE PER NURSING PROTOCOL Performed By: #### L501.080 #### [facility] Point of Care [address] [place] [address] BEDSIDE GLUCOSE Collected: 01/27/2018 Status: F Source: [place] 10:13 AM [facility] REPOSITORY TYPE CODE TESTS RESULT OUT OF REFERENCE UNITS RANGE LAB L501.080 70-110 mg/dL High BEDSIDE GLU 131 Result Comment: MANAGEMENT OF PATIENT CARE PER NURSING PROTOCOL Performed By: #### L501.080 #### [facility] Point of Care [address] [place] [address] BEDSIDE GLUCOSE Collected: 01/25/2018 Status: F Source: [place] 11:41 AM [facility] REPOSITORY TYPE CODE TESTS RESULT OUT OF REFERENCE UNITS RANGE LAB L501.080 70-110 mg/dL High BEDSIDE GLU 144 Result Comment: MANAGEMENT OF PATIENT CARE PER NURSING PROTOCOL Performed By: #### L501.080 #### [facility] Point of Care [address] [place] [address] BEDSIDE GLUCOSE Collected: 01/25/2018 Status: F Source: [place] 9:42 AM [facility] REPOSITORY TYPE CODE TESTS RESULT OUT OF REFERENCE UNITS RANGE LAB L501.080 70-110 mg/dL High BEDSIDE GLU 168 Result Comment: MANAGEMENT OF PATIENT CARE PER NURSING PROTOCOL Performed By: #### L501.080 #### [facility] Point of Care [address] [place] [address] BEDSIDE GLUCOSE Collected: 01/24/2018 Status: F Source: [place] 11:58 AM [facility] REPOSITORY TYPE CODE TESTS RESULT OUT OF REFERENCE UNITS RANGE LAB L501.080 70-110 mg/dL High BEDSIDE GLU 112 Result Comment: MANAGEMENT OF PATIENT CARE PER NURSING PROTOCOL Performed By: #### L501.080 #### [facility] Point of Care [address] [place] [address] BEDSIDE GLUCOSE Collected: 01/24/2018 Status: F Source: [place] 10:00 AM [facility] REPOSITORY TYPE CODE TESTS RESULT OUT OF REFERENCE UNITS RANGE LAB L501.080 70-110 mg/dL High BEDSIDE GLU 168 Result Comment: MANAGEMENT OF PATIENT CARE PER NURSING PROTOCOL Performed By: #### L501.080 #### [facility] Point of Care [address] [place] [address] BEDSIDE GLUCOSE Collected: 01/21/2018 Status: F Source: [place] 12:01 PM [facility] REPOSITORY TYPE CODE TESTS RESULT OUT OF REFERENCE UNITS RANGE LAB L501.080 70-110 mg/dL High BEDSIDE GLU 119 Result Comment: MANAGEMENT OF PATIENT CARE PER NURSING PROTOCOL Performed By: #### L501.080 #### [facility] Point of Care [address] [place] [address] BEDSIDE GLUCOSE Collected: 01/21/2018 Status: F Source: [place] 9:44 AM [facility] REPOSITORY TYPE CODE TESTS RESULT OUT OF REFERENCE UNITS RANGE LAB L501.080 70-110 mg/dL High BEDSIDE GLU 173 Result Comment: MANAGEMENT OF PATIENT CARE PER NURSING PROTOCOL Performed By: #### L501.080 #### [facility] Point of Care [address] [place] [address] [facility] Observed: 01/19/2018 Status: F Source: [place] CONSULT 10:42 AM [facility] REPOSITORY [facility] [address] [address] [facility] Consult 12/09/17 1729 MR#: [id number] Acct: [id number] Name: DEL BARRIOS Rep #: [id number] : 1960 57 From: Juanito Valdes MD PCP: Kobe CARDENAS,Arnie Chi Status: DIS RCR Y Location: WC (1) [...] 01/19/2018 Status: F Source: [place] 10:15 AM [facility] REPOSITORY TYPE CODE TESTS RESULT OUT OF REFERENCE UNITS RANGE LAB L501.080 70-110 mg/dL High BEDSIDE GLU 118 Result Comment: MANAGEMENT OF PATIENT CARE PER NURSING PROTOCOL Performed By: #### L501.080 #### [facility] Point of Care [address] [place] [address] BEDSIDE GLUCOSE Collected: 01/19/2018 Status: F Source: [place] 7:51 AM [facility] REPOSITORY TYPE CODE TESTS RESULT OUT OF REFERENCE UNITS RANGE LAB L501.080 70-110 mg/dL High BEDSIDE GLU 190 Result Comment: MANAGEMENT OF PATIENT CARE PER NURSING PROTOCOL Performed By: #### L501.080 #### [facility] Point of Care [address] [place] [address] BEDSIDE GLUCOSE Collected: 01/18/2018 Status: F Source: [place] 11:30 AM [facility] REPOSITORY TYPE CODE TESTS RESULT OUT OF REFERENCE UNITS RANGE LAB L501.080 70-110 mg/dL High BEDSIDE GLU 280 Result Comment: MANAGEMENT OF PATIENT CARE PER NURSING PROTOCOL Performed By: #### L501.080 #### [facility] Point of Care [address] [place] [address] BEDSIDE GLUCOSE Collected: 01/18/2018 Status: F Source: [place] 9:18 AM [facility] REPOSITORY TYPE CODE TESTS RESULT OUT OF REFERENCE UNITS RANGE LAB L501.080 70-110 mg/dL High BEDSIDE GLU 217 Result Comment: MANAGEMENT OF PATIENT CARE PER NURSING PROTOCOL Performed By: #### L501.080 #### [place] [facility] Point of Care [address] [place] [address] URINE DRUG SCREEN Collected: 12/16/2017 Status: F Source: [place] (VISTA) 1:42 PM [facility] REPOSITORY Order Comment: Comments: [id number] URINE TOXICOLOGY RUN LOWEST TEST List of [...] Normal NEGATIVE Performed By: #### L505.5000 #### [place] [facility] [address] [place], [place], [address] MISCELLANEOUS LAB Collected: 12/16/2017 Status: F Source: [place] PROCEDURE 1:42 PM [facility] REPOSITORY Order Comment: Comments: [id number] URINE TOXICOLOGY RUN LOWEST TEST Test(s) Ordered: [id number] URINE TOXICOLOGY RUN LOWEST TEST TYPE CODE TESTS RESULT OUT OF RANGE REFERENCE UNITS LAB L801.1541 Normal [facility] LAB TEST Result Comment: TEST RESULT UNITS REF INTERVAL [id number] 6+Oxycodone-Bund Amphetamines, Urine Negative ng/mL Ivteau=3673 Amphetamine test includes Amphetamine and Methamphetamine. Barbiturate Negative ng/mL Nggyds=870 Benzodiazepines Negative ng/mL Vcwgcm=839 Cannabinoids Negative ng/mL Cutoff=20 Cocaine (Metabolite) Negative ng/mL Kbuzmz=362 Opiates Negative ng/mL Jtbdwp=520 Opiate test includes Codeine, Morphine, Hydromorphone, Hydrocodone. Please Note: Confirmation performed by Mass Spectrometry Oxycodone/Oxymorphone, Urine Negative ng/mL Dtugow=337 Test includes Oxycodone and Oxymorphone TESTING PERFORMED AT [facility]. ORIGINAL REPORT ON FILE IN LAB CONTAINS ADDITIONAL TEST SITE INFORMATION. Performed By: #### L801.1541 #### [facility] [place], [address] EMERGENCY DEPARTMENT Observed: 12/13/2017 Status: F Source: [place] SUMMARY 12:16 PM [facility] REPOSITORY [facility] Medical Records Department [address] [place] [address] Emergency Department Summary 12/13/17 0948 MR#: [id number] Acct: [id number] Name: [place] BARRIOS Rep #: [id number] : 1960 57 From: Darinel Dinero DO PCP: Kobe CARDENAS,Arnie Watson Status: REG ER - ER Visit Summary [...] right foot This note was generated with Grafoid dictation software. It may contain incorrect words, spelling, and punctuation that were not noted in review of the chart prior to signing ED Disposition - Plan for ED Patient: Disposition: Home or Assisted Living Chief Complaint: Wound Diagnosis: Open wound of right foot Instructions: Discharge Instructions for Diabetic Foot Ulcers Prescriptions: Clindamycin HCl 300 mg PO [id number] #40 cap Referrals: Arnie Reese Chi, MD [Primary Care Provider] - What to do if you have Problems For any increased pain, shortness of breath, bleeding, nausea or vomiting, chest pain, or any unexpected problems, contact your Primary Care Provider. Call [facility] ([phone]) or report to the closest Emergency Room. Call 911 if necessary. 12/13/17 1216 <Electronically signed by Darinel Dinero DO> Date Darinel Dinero DO Cosigner Signature (If Indicated): Date CC: Arnie Reese MD Observed: 12/13/2017 Status: F Source: [place] CULTURE, WOUND 10:45 AM [facility] REPOSITORY Has pt arrived? Y Gram Stain [...] <=20 S (NF) indicates non-formulary drug at [facility]. Approval by Infectious Disease Specialist [...] <=20 S (NF) indicates non-formulary drug at [facility]. Approval by Infectious Disease Specialist required before non-formulary drugs may be ordered and/or dispensed. Performed By: #### M100.1400 #### [facility] [address] [place], [address] Observed: 12/13/2017 Status: F Source: [place] CULTURE, BLOOD (WB) 10:10 AM [facility] REPOSITORY BC No growth in 5 days. Performed By: #### M200.1000 #### [facility] [address] [place], [address] CBC W/DIFF, AUTOMATED Collected: 12/13/2017 Status: F Source: [place] 10:00 AM [facility] REPOSITORY TYPE CODE TESTS RESULT OUT [...] Lymph 1.08 Performed By: #### L100.0100 #### [facility] [address] [place], [address] BASIC METABOLIC Collected: 12/13/2017 Status: F Source: [place] PROFILE (BMP) 10:00 AM [facility] REPOSITORY TYPE CODE TESTS RESULT OUT [...] 9 GAP Performed By: #### L500.2500 #### [facility] [address] [place], [address] Observed: 12/13/2017 Status: F Source: [place] CULTURE, BLOOD (WB) 10:00 AM [facility] REPOSITORY BC No growth in 5 days. Performed By: #### M200.1000 #### [facility] [address] [place], [place], [address] FOOT MIN 3 VIEWS Observed: 12/13/2017 Status: F Source: [place] 9:48 AM [facility] REPOSITORY [facility] Imaging Services [address] [place] [address] Foot min 3 Views MR#: [id number] Acct: [id number] Name: DEL BARRIOS Rep #: [id number] : 1960 M 57 From: Saeed Jeffrey MD PCP: Kobe CARDENAS,Arnie Watson Status: REG ER Study: Foot min 3 Views Date of Exam: 12/13/17 Exam# [id number] Ordering Dr: Darinel Dinero DO STUDY: X-RAY [...] Saeed Jeffrey MD at 11:12 EDT Tel [phone], Service support , CC: Darinel Dinero DO; Arnie Reese MD Data Systems Analyst: Signed CBC-COMPLETE BLOOD CNT Collected: 12/02/2017 Status: F Source: [place] NO DIFF 1:35 PM [facility] REPOSITORY TYPE CODE TESTS RESULT OUT [...] MPV 10.9 Performed By: #### L100.0500 #### [facility] [place], [address] RENAL PROFILE Collected: 12/02/2017 Status: F Source: [place] 1:35 PM [facility] REPOSITORY TYPE CODE TESTS RESULT OUT [...] CO2 27.0 Performed By: #### L500.3600 #### [facility] [address] [place], [place], [address] PTHIN Collected: 12/02/2017 Status: F Source: [place] 1:35 PM [facility] REPOSITORY TYPE CODE TESTS RESULT OUT OF RANGE REFERENCE UNITS LAB L509.1000 18.4-80.1 pg/mL Normal PTHIN 46.6 Performed By: #### L509.1000 #### [facility] [address] [place], [address] URINE DRUG SCREEN Collected: 11/18/2017 Status: P Source: [place] ([place]) 10:45 AM [facility] REPOSITORY Order Comment: List of Drugs Taken [...] MNEMONIC: [facility] Performed By: #### L505.5000 #### [facility] [place], [address] PROGRESS Observed: 11/09/2017 Status: COMPLETED Source: [place] 12:03 PM [facility] REPOSITORY HNO ID: [id number] Author: Lauren Dempsey Service: (none) Author Type: Physician Type: Progress [...] VISIT (INTERNAL Observed: 11/07/2017 Status: UNK Source: [facility]) 11:31 AM HOSPITALS REPOSITORY Chief Complaint here [...] SHASHA = N; Verified Transmission to [facility], ; Msg to Pharma cy: dx e 11.65 on insulin; Last Updated By: Edenilson Meade; 03/08/2017 1:56:10 PM Accu-Chek Loretta Plus w/Device Kit; USE DIRECTED; Therapy: 05Nov2014 to (Last Rx:05Nov2014) Requested for: 05Nov2014 Ordered Rx By: Sergo Victor; Dispense: 0 Days ; #:1 Kit; Refill: 0;For: Diabetes mellitus type 2, uncontrolled; SHASHA = N; Verified Transmission to [facility] [address]; Msg to Pharmacy: dx 250.02 on insulin Accu-Chek Multiclix Lancets Miscellaneous; Uses 4 daily; Therapy: 30Mar2013 to (Last Rx:08Mar2017) Requested for: 08Mar2017 Ordered Rx By: Sergo Victor; Dispense: 0 Days ; #:4 X 102 Miscellaneous Box; Refill: 3;For: Diabetes mellitus type 2, uncontrolled; SHASHA = N; Verified Transmission to [address]; Last Updated By: MolecuLight; 03/08/2017 1:56:41 PM Accu-Chek Softclix Lancets Miscellaneous; use 4 times a day to check sugar; Therapy: 10Apa5450 to (Last Rx:91Liz4154) Requested for: 18Jan2017 Ordered Rx By: Sergo Victor; Dispense: 0 Days ; #:4 X 100 Miscellaneous Box; Refill: 3;For: Diabetes mellitus type 2, uncontrolled; SHASHA = N; Verified Transmission to [address]; Last Updated By: MolecuLight; 01/18/2017 7:03:11 PM BD Pen Needle Mini U/F 31G X 5 MM Miscellaneous; use 3 daily; Therapy: 18Jan2017 to (Last Rx:18Jan2017) Requested for: 18Jan2017 Ordered Rx By: Sergo Victor; Dispense: 0 Days ; #:3 X 100 Miscellaneous Box; Refill: 3;For: Diabetes mellitus type 2, uncontrolled; SHASHA = N; Verified Transmission to [address]; Last Updated By: MolecuLight; 01/18/2017 11:36:07 AM BD Pen Needle Short U/F 31G X 8 MM Miscellaneous; uses 6 daily; Therapy: 24Aug2017 to (Last Rx:24Aug2017) Requested for: 24Aug2017 Ordered Rx By: Sergo Victor; Dispense: 0 Days ; #:6 X 100 Miscellaneous Box; Refill: 3;For: Diabetes mellitus type 2, uncontrolled; SHASHA = N; Verified Transmission to [address]; [facility] t [facility] Pharmacy: E11.65 on insulin Gabapentin 600 MG Oral Tablet; TAKE ONE TABLET BY MOUTH ONCE DAILY; Therapy: 08Mar2017 to (Evaluate:01Apr2018) Requested for: 03Oct2017; Last Rx:03Oct2017 Ordered Rx By: Sergo Victor; Dispense: 90 Days ; #:90 TAB; Refill: 1;For: Diabetes mellitus type 2, uncontrolled; SHASHA = N; Verified Transmission to [address]; Last Updated By: Edenilson Meade; 10/03/2017 8:04:52 PM Gabapentin 800 MG Oral Tablet; TAKE TWO TABLETS BY MOUTH EVERY DAY AT BEDTIME; Therapy: 04Kyu4243 to (Evaluate:71Sgy1730) Requested for: 03Oct2017; Last Rx:03Oct2017 Ordered Rx By: Sergo Victor; Dispense: 90 Days ; #:180 TAB; Refill: 0;For: Diabetes mellitus type 2, uncontrolled; SHASHA = N; Verified Transmission to [address]; Last Updated By: Edenilson Houston; 10/03/2017 8:09:59 PM HumuLIN R U-500 KwikPen 500 UNIT/ML Subcutaneous Solution Pen-injector; 145 units am, 95 units lunch,80 units pre-evening meal; Therapy: 26Gpy7749 to (Last Rx:06May2017) Requested for: 06May2017 Ordered Rx By: Sergo Victor; Dispense: 0 Days ; #:11 X 3 ML Pen (2 Pens); Refill: 3;For: Diabetes mellitus type 2, uncontrolled; SHASHA = N; Verified Transmission to [address]; Last Upd ated By: [place]ilson Meade; 05/06/2017 4:08:21 PM NovoLOG FlexPen 100 UNIT/ML Subcutaneous Solution Pen-injector; INJECT 60 UNIT Daily; Therapy: 26Qok3217 to (Last Rx:19Dmi1032) Requested for: 54Yqx5398 Ordered Rx By: Sergo Victor; Dispense: 0 Days ; #:2 X 3 ML Pen (5 Pens); Refill: 5;For: Diabetes mellitus type 2, uncontrolled; SHASHA = N; Verified Transmission to [address]; Last Upda rebeka By: [place]son Meade; 08/02/2017 10:08:38 AM TRUEplus Pen [place] 31G X 8 MM Miscellaneous; USE THREE DAILY DIRECTED; Therapy: 28Zst5982 to (Evaluate:88Oci2786) Requested for: 03Oct2017; Last Rx:03Oct2017 Ordered Rx By: Sergo Victor; Dispense: 90 Days ; #:300 EA; Refill: 3;For: Diabetes mellitus type 2, uncontrolled; SHASHA = N; Verified Transmission to [address]; Last Updated By: TalkBin; 10/03/2017 8:04:51 PM Eliquis 2.5 MG Oral Tablet; TAKE ONE TABLET BY MOUTH TWICE DAILY; Therapy: 07Mar2015 to (Evaluate:33Gwl4094) Requested for: 03Oct2017; Last Rx:03Oct2017 Ordered Rx By: Sergo Victor; Dispense: 90 Days ; #:60 TAB; Refill: 3;For: Health Maintenance; SHAS[place] = N; Verified Transmission to [address]; Last Updated By: MolecuLight; 10/03/2017 8:04:52 PM Omeprazole 40 MG Oral Capsule Delayed Release; TAKE 1 CAPSULE Daily; Therapy: 87Nxd3637 to (Evaluate:30Xmt1792) Requested for: 08Mar2017; Last Rx:08Mar2017 Ordered Rx By: Sergo Victor; Dispense: 90 Days ; #:90 Capsule Delayed Release; Refill: 3;For: Health Maintenance; SHAS[place] = N; Verified Transmission to [address]; Last Updated By: TalkBin; 03/08/2017 3:16:41 PM Vitamin D (Ergocalciferol) 89087 UNIT Oral Capsule; TAKE ONE CAPSULE BY MOUTH ONCE A WEEK; Therapy: 07Apr2015 to (Evaluate:97Zki3619) Requested for: 03Oct2017; Last Rx:03Oct2017 Ordered Rx By: Sergo Victor; Dispense: 84 Days ; #:12 Capsule; Refill: 0;For: Health Maintenance; SHAS[place] = N; Verified Transmission to [address]; Last Updated By: MolecuLight; 10/03/2017 8:09:58 PM Bystolic 10 MG Oral Tablet; Take 1 tablet daily; Therapy: 83Nna1660 to (Evaluate:32Etn9429) Requested for: 08Mar2017; Last Rx:08Mar2017 Ordered Rx By: Sergo Victor; Dispense: 90 Days ; #:90 Tablet; Refill: 3;For: HTN (hypertension); SHASHA = N; Verified Transmission to [address]; Last Updated By: MolecuLight; 03/08/2017 3:16:44 PM Losartan Potassium 50 MG Oral Tablet; TAKE 1 TABLET DAILY; Therapy: 71Yhh5960 to (Evaluate:32Zvs8403) Requested for: 08Mar2017; Last Rx:08Mar2017 Ordered Rx By: Sergo Victor; Dispense: 90 Days ; #:90 Tablet; Refill: 3;For: HTN (hypertension); [place] = N; Verified Transmission to [address]; Last Updated By: MolecuLight; 03/08/2017 3:16:43 PM Accu-Chek Softclix Lancet Dev [...] AM Vitals Vital Signs Recorded: 05Nov2017 11:06AM Ltkhsrdwvac96.6 F, Temporal Heart Rate97 Lkqdsimo781, Sitting Gbxjjvwfa65, Sitting O2 Cxkaysggeb81, RA Physical Exam in a w/c looks [...] Therapy: 18Jan2017 to (Last Rx:18Jan2017) Requested for: 68Hup9717 Ordered BD Pen Needle Mini U/F 31G X 5 MM Miscellaneous; use 3 daily; Therapy: 18Jan2017 to (Last Rx:18Jan2017) Requested for: 18Jan2017 Ordered BD Pen Needle Short U/F 31G X 8 MM Miscellaneous; uses 6 daily; Therapy: 24Aug2017 to (Last Rx:24Aug2017) Requested for: 24Aug2017 Ordered Brimonidine Tartrate 0.2 % Ophthalmic Solution; Therapy: 25Nov2014 to Recorded Bystolic 10 MG Oral Tablet; Take 1 tablet daily; Therapy: 13Jhw1757 to (Evaluate:96Nmj1261) Requested for: 08Mar2017; Last Rx:08Mar2017 Ordered Eliquis 2.5 MG Oral Tablet; TAKE ONE TABLET BY MOUTH TWICE DAILY; Therapy: 07Mar2015 to (Evaluate:34Jxh8078) Requested for: 03Oct2017; Last Rx:03Oct2017 Ordered Fluorouracil 2 % External Solution; Therapy: 26Jan2017 to Recorded Gabapentin 600 MG Oral Tablet; TAKE ONE TABLET BY MOUTH ONCE DAILY; Therapy: 08Mar2017 to (Evaluate:56Flt8690) Requested for: 03Oct2017; Last Rx:03Oct2017 Ordered Gabapentin 800 MG Oral Tablet; TAKE TWO TABLETS BY MOUTH EVERY DAY AT BEDTIME; Therapy: 98Cay1703 to (Evaluate:60Dtl4582) Requested for: 03Oct2017; Last Rx:03Oct2017 Ordered HumuLIN R 100 UNIT/ML Injection Solution; Therapy: 30Sep2016 to Recorded HumuLIN R U-500 KwikPen 500 UNIT/ML Subcutaneous Solution Pen-injector; 145 units am, 95 units lunch,80 units pre-evening meal; Therapy: 02Ild6236 to (Last Rx:06May2017) Requested for: 06May2017 Ordered Latanoprost 0.005 % Ophthalmic Solution; Therapy: 18Jun2015 to Recorded Losartan Potassium 50 MG Oral Tablet; TAKE 1 TABLET DAILY; Therapy: 75Rxj9484 to (Evaluate:44Yai1713) Requested for: 08Mar2017; Last Rx:08Mar2017 Ordered NovoFine Autocover 30G X 8 MM Miscellaneous; Therapy: 11Nov2016 to Recorded NovoLOG FlexPen 100 UNIT/ML Subcutaneous Solution Pen-injector; INJECT 60 UNIT Daily; Therapy: 88Jin8944 to (Last Rx:46Aof0575) Requested for: 58Tks9141 Ordered Omeprazole 40 MG Oral Capsule Delayed Release; TAKE 1 CAPSULE Daily; Therapy: 26Rpv9582 to (Evaluate:73Piv6335) Requested for: 08Mar2017; Last Rx:08Mar2017 Ordered TRUEplus Pen [place] 31G X 8 MM Miscellaneous; USE THREE DAILY DIRECTED; Therapy: 90Sdg6153 to (Evaluate:47Clk5559) Requested for: 03Oct2017; Last Rx:21Nxh8016 Ordered Vitamin D (Ergocalciferol) 20044 UNIT Oral Capsule; TAKE ONE CAPSULE BY MOUTH ONCE A WEEK; Therapy: 07Apr2015 to (Evaluate:99Hlg4166) Requested for: 03Oct2017; Last Rx:03Oct2017 Ordered Signatures Electronically signed by : Sergo Victor MD; Nov 07 2017 11:31AM EST (Author) CBC-COMPLETE BLOOD CNT Collected: 11/04/2017 Status: F Source: [place] NO DIFF 12:20 PM [facility] REPOSITORY TYPE CODE TESTS RESULT OUT [...] MPV 9.9 Performed By: #### L100.0500 #### [facility] [address] [place], [place], [address] RENAL PROFILE Collected: 11/04/2017 Status: F Source: [place] 12:20 PM [facility] REPOSITORY TYPE CODE TESTS RESULT OUT [...] CO2 25.0 Performed By: #### L500.3600 #### [facility] [address] [place], [place], [address] PTHIN Collected: 11/04/2017 Status: F Source: [place] 12:20 PM [facility] REPOSITORY TYPE CODE TESTS RESULT OUT OF RANGE REFERENCE UNITS LAB L509.1000 18.4-80.1 pg/mL Normal PTHIN 38.9 Performed By: #### L509.1000 #### [facility] [address] [place], [address] OT D/C OF NON Observed: 11/03/2017 Status: F Source: [place] RETURNING PT 11:39 AM [facility] REPOSITORY [facility] Occupational Therapy [facility] [address] [place] [address] Fax REHABILITATION SERVICES DISCHARGE SUMMARY MR#: [id number] Acct: [id number] Name: DEL BARRIOS Rep #: [id number] : 1960 57 From: Meera Martinez OTR/MEERA Ware Referring Dr.: Rachele Lux DPM Status: REG RCR Eval [...] high- orders and measurments were sent to [facility] for insurance approval- spoke with Alanna at [facility] and she states insurance does not [...] found appropriate by the physician. Thank you! Meera Martinez, OTR/L, CHT <Electronically signed by Meera Martinez OTR/Fred, CHT> 11/03/17 1139 CC: Rachele Lux DPM; OUT OF TOWN DOCTOR MK Signed LOW DOSE CT LUNG Observed: 10/29/2017 Status: F Source: [place] SCREENING 12:35 PM [facility] REPOSITORY [facility] Imaging [place] [address] Lung Screening MR#: [id number] Acct: [id number] Name: DEL BARRIOS Rep #: [id number] : 1960 M 57 From: Renetta Huffman PCP: Arnie Reese MD, Chi Status: REG CLI Study: Low Dose CT Lung Screening Date of Exam: 10/29/17 Exam# [id number] Ordering Dr: Arnie Reese MD STUDY: LOW [...] Service support , CC: Arnie Reese MD Data Systems Analyst: Signed KIDNEY AND BLADDER Observed: 10/29/2017 Status: F Source: [place] 12:27 PM [facility] REPOSITORY [facility] Imaging Services [address] [place] [address] Kidney and Bladder MR#: [id number] Acct: [id number] Name: DEL BARRIOS Rep #: [id number] : 1960 M 57 From: Nabeel Castro MD PCP: Arnie Reese MD, Chi Status: REG CLI Study: Kidney and Bladder Date of Exam: 10/29/17 Exam# [id number] Ordering Dr: Arnie Reese MD STUDY: RENAL [...] Service support , CC: Arnie Reese MD Data Systems Analyst: Signed SPINE LUMBAR Observed: 10/29/2017 Status: F Source: [place] (ROUTINE) 10:02 AM [facility] REPOSITORY [facility] Imaging Services [address] [place] [address] Spine Lumbar (Routine) MR#: [id number] Acct: [id number] Name: DEL BARRIOS Rep #: [id number] : 1960 M 57 From: Delia Brunner MD PCP: Arnie Reese MD, Chi Status: REG CLI Study: Spine Lumbar (Routine) Date of Exam: 10/29/17 Exam# [id number] Ordering Dr: Arnie Reese MD STUDY: MRI [...] Service support , CC: Arnie Reese MD Data Systems Analyst: Signed PROTEIN+CREATININE Collected: Status: F Source: [facility],URINE 10/20/2017 3:51 PM [facility] REPOSITORY TYPE CODE TESTS RESULT OUT OF RANGE REFERENCE UNITS LAB L501.1200 NO RANGE EST. mg/dL Normal UR CREAT 48.30 LAB L501.1930 <11.9 mg/dL High 96.8 PROTEIN,UR.R AN. LAB L501.1940 0-200 mg/g CRE High PROT:CRE 2004 RATIO Performed By: #### L501.0900 #### [facility] [address] [facility] [place], [address] LUMBAR SPINE 2 OR 3 Observed: 10/14/2017 Status: F Source: [place] VIEWS 2:28 PM [facility] REPOSITORY [facility] Imaging Services [address] [place] [address] Lumbar Spine 2 or 3 Views MR#: [id number] Acct: [id number] Name: DEL BARRIOS Rep #: [id number] : 1960 M 57 From: Saeed Jeffrey MD PCP: Arnie Reese MD, Chi Status: REG CLI Study: Lumbar Spine 2 or 3 Views Date of Exam: 10/14/17 Exam# [id number] Ordering Dr: Arnie Reese MD STUDY: X-RAY - LUMBAR SPINE REASON [...] Saeed Jeffrey MD at 15:16 EDT Tel [phone], Service support , CC: Arnie Reese MD Data Systems Analyst: Signed BASIC METABOLIC Collected: 10/14/2017 Status: F Source: [place] PROFILE (BMP) 12:17 PM [facility] REPOSITORY TYPE CODE TESTS RESULT OUT [...] GAP 11 Performed By: #### L500.2500 #### [facility] [address] [place], [address] HGB A1C GLYCOHB Collected: 10/11/2017 Status: F Source: [facility] 9:00 AM [facility] REPOSITORY TYPE CODE TESTS RESULT OUT OF REFERENCE UNITS RANGE LAB L550.17755 4.3-6.0 % High HGB A1C 8.3 GLYCOHB Performed By: #### L550.90212 #### [facility] [address] [place] [address] COMPREHENSIVE METABOLIC Collected: 10/01/2017 Status: F Source: [facility] 11:57 AM [facility] REPOSITORY TYPE CODE TESTS RESULT OUT [...] Performed By: #### L500.4050, L501.9520, L501.9910 #### [facility] [address] [place], [place], [address] THYROID STIM HORMONE Collected: 10/01/2017 Status: F Source: [place] (TSH) 11:57 AM [facility] REPOSITORY TYPE CODE TESTS RESULT OUT OF RANGE REFERENCE UNITS LAB L501.9520 0.358-3.74 uIU/mL Normal TSH 2.44 Performed By: #### L500.4050, L501.9520, L501.9910 #### [facility] [address] [place], [place], [id number] PSA,TOTAL - ANNUAL Collected: 10/01/2017 Status: F Source: [place] SCREEN 11:57 AM [facility] REPOSITORY TYPE CODE TESTS RESULT OUT OF RANGE REFERENCE UNITS LAB L501.9910 0.00-4.00 ng/mL Normal PSA,TOT 0.14 SCREEN Result Comment: This test was performed using the TPSA assay method for the [employer] chemistry system. Values obtained with different assay methods cannot be used interchangably. When changing PSA assays in the course of monitoring a patient, additional sequential testing should be carried out to confirm baseline values. Performed By: #### L500.4050, L501.9520, L501.9910 #### [facility] [address] [place], [address] CBC W/DIFF, AUTOMATED Collected: 10/01/2017 Status: F Source: [place] 11:57 AM [facility] REPOSITORY TYPE CODE TESTS RESULT OUT [...] Lymph 1.30 Performed By: #### L100.0100 #### [facility] [address] [facility] [place], [address] HEPATITIS C ANTIBODIES Collected: 10/01/2017 Status: F Source: [place] 11:57 AM [facility] REPOSITORY TYPE CODE TESTS RESULT OUT OF RANGE REFERENCE UNITS LAB L3100.0650 0.0-0.9 s/co ratio Normal HEP C AB <0.1 Result Comment: Negative: < 0.8 Indeterminate: 0.8 - 0.9 Positive: > 0.9 The CDC recommends that a positive HCV antibody result be followed up with a HCV Nucleic Acid Amplification test (859060). Performed at: [facility] [id number] Powertrain Engineer: Matthias Reeder PhD, Phone: [phone] Performed By: #### L3100.0625 #### [facility] (refer to report for specific site) refer to report for address and phone number BEDSIDE GLUCOSE Collected: 09/27/2017 Status: F Source: [place] 6:15 AM [facility] REPOSITORY TYPE CODE TESTS RESULT OUT OF REFERENCE UNITS RANGE LAB L501.080 70-110 mg/dL High BEDSIDE GLU 238 Result Comment: MANAGEMENT OF PATIENT CARE PER NURSING PROTOCOL Performed By: #### L501.080 #### [facility] Point of Care [address] [facility]. [place], [place] [id number] BEDSIDE GLUCOSE Collected: 09/26/2017 Status: F Source: [place] 8:50 PM [facility] REPOSITORY TYPE CODE TESTS RESULT OUT OF REFERENCE UNITS RANGE LAB L501.080 70-110 mg/dL High BEDSIDE GLU 334 Result Comment: MANAGEMENT OF PATIENT CARE PER NURSING PROTOCOL Performed By: #### L501.080 #### [facility] Point of Care [address] [facility] [place] [address] BEDSIDE GLUCOSE Collected: 09/26/2017 Status: F Source: [place] 4:56 PM [facility] REPOSITORY TYPE CODE TESTS RESULT OUT OF REFERENCE UNITS RANGE LAB L501.080 70-110 mg/dL High BEDSIDE GLU 286 Result Comment: MANAGEMENT OF PATIENT CARE PER NURSING PROTOCOL Performed By: #### L501.080 #### [facility] Point of Care [address] [place] [address] BEDSIDE GLUCOSE Collected: 09/26/2017 Status: F Source: [place] 11:09 AM [facility] REPOSITORY TYPE CODE TESTS RESULT OUT OF REFERENCE UNITS RANGE LAB L501.080 70-110 mg/dL High BEDSIDE GLU 331 Result Comment: MANAGEMENT OF PATIENT CARE PER NURSING PROTOCOL Performed By: #### L501.080 #### [facility] Point of Care [address] [place] [address] BEDSIDE GLUCOSE Collected: 09/26/2017 Status: F Source: [place] 6:26 AM [facility] REPOSITORY TYPE CODE TESTS RESULT OUT OF REFERENCE UNITS RANGE LAB L501.080 70-110 mg/dL High BEDSIDE GLU 282 Result Comment: MANAGEMENT OF PATIENT CARE PER NURSING PROTOCOL Performed By: #### L501.080 #### [facility] Point of Care [address] [place] [address] BEDSIDE GLUCOSE Collected: 09/25/2017 Status: F Source: [place] 8:56 PM [facility] REPOSITORY TYPE CODE TESTS RESULT OUT OF REFERENCE UNITS RANGE LAB L501.080 70-110 mg/dL High BEDSIDE GLU 329 Result Comment: MANAGEMENT OF PATIENT CARE PER NURSING PROTOCOL Performed By: #### L501.080 #### [facility] Point of Care [address] [place] [address] BEDSIDE GLUCOSE Collected: 09/25/2017 Status: F Source: [place] 4:36 PM [facility] REPOSITORY TYPE CODE TESTS RESULT OUT OF REFERENCE UNITS RANGE LAB L501.080 70-110 mg/dL High BEDSIDE GLU 335 Result Comment: MANAGEMENT OF PATIENT CARE PER NURSING PROTOCOL Performed By: #### L501.080 #### [facility] Point of Care [address] [place] [address] BEDSIDE GLUCOSE Collected: 09/25/2017 Status: F Source: [place] 10:58 AM [facility] REPOSITORY TYPE CODE TESTS RESULT OUT OF REFERENCE UNITS RANGE LAB L501.080 70-110 mg/dL High BEDSIDE GLU 338 Result Comment: Dr Sawant Followed MANAGEMENT OF PATIENT CARE PER NURSING PROTOCOL Performed By: #### L501.080 #### [facility] Point of Care [address] [place] [address] BEDSIDE GLUCOSE Collected: 09/25/2017 Status: F Source: [place] 10:52 AM [facility] REPOSITORY TYPE CODE TESTS RESULT OUT OF REFERENCE UNITS RANGE LAB L501.080 70-110 mg/dL High BEDSIDE GLU 304 Result Comment: Dr Sawant Followed MANAGEMENT OF PATIENT CARE PER NURSING PROTOCOL Performed By: #### L501.080 #### [facility] Point of Care [address] [facility] [place] [address] DISCHARGE INSTRUCTION Observed: 09/25/2017 Status: F Source: [place] 10:50 AM [facility] REPOSITORY [facility] Medical Records Department [address] [facility] [place] [address] Instructions for Home/Discharge Instructions 09/25/17 1049 MR#: [id number] Acct: [id number] Name: DEL BARRIOS Rep #: [id number] : 1960 57 From: Rachele Lux DPM [...] PO DAILY 01/08/17 Nebivolol HCl [Bystolic (Beta Akira)] 10 mg PO DAILY 01/08/17 Omeprazole [Prilosec] [...] PO BIDCM #60 packet Primary Care Physician: [facility] Doctor,Out of [Primary Care Provider] - Please follow up with your Primary Care Physician in: 1 week. Please Follow Up With: Arnie Reese Chi, MD Please Follow Up With: Rachele Lux DPM When: 1 week at wound center. if not able to get in, call [phone] Proposed Discharge Date: 09/27/17 09/25/17 1050 <Electronically signed by Rachele Lux DPM> Date Rachele Lux DPM CC: Rachele Lux DPM; OUT OF TOWN DOCTOR; Dale Daigle MD BEDSIDE GLUCOSE Collected: 09/25/2017 Status: F Source: [place] 6:23 AM [facility] REPOSITORY TYPE CODE TESTS RESULT OUT OF REFERENCE UNITS RANGE LAB L501.080 70-110 mg/dL High BEDSIDE GLU 225 Result Comment: MANAGEMENT OF PATIENT CARE PER NURSING PROTOCOL Performed By: #### L501.080 #### [facility] Point of Care [address] [place] [address] BEDSIDE GLUCOSE Collected: 09/24/2017 Status: F Source: [place] 9:10 PM [facility] REPOSITORY TYPE CODE TESTS RESULT OUT OF REFERENCE UNITS RANGE LAB L501.080 70-110 mg/dL High BEDSIDE GLU 308 Result Comment: MANAGEMENT OF PATIENT CARE PER NURSING PROTOCOL Performed By: #### L501.080 #### [facility] Point of Care [address] [place] [address] BEDSIDE GLUCOSE Collected: 09/24/2017 Status: F Source: [place] 4:45 PM [facility] REPOSITORY TYPE CODE TESTS RESULT OUT OF REFERENCE UNITS RANGE LAB L501.080 70-110 mg/dL High BEDSIDE GLU 238 Result Comment: MANAGEMENT OF PATIENT CARE PER NURSING PROTOCOL Performed By: #### L501.080 #### [facility] Point of Care [address] [place] [address] BEDSIDE GLUCOSE Collected: 09/24/2017 Status: F Source: [place] 12:55 PM [facility] REPOSITORY TYPE CODE TESTS RESULT OUT OF REFERENCE UNITS RANGE LAB L501.080 70-110 mg/dL High BEDSIDE GLU 348 Result Comment: MANAGEMENT OF PATIENT CARE PER NURSING PROTOCOL Performed By: #### L501.080 #### [facility] Point of Care [address] [place] [address] BEDSIDE GLUCOSE Collected: 09/24/2017 Status: F Source: [place] 11:41 AM [facility] REPOSITORY TYPE CODE TESTS RESULT OUT OF REFERENCE UNITS RANGE LAB L501.080 70-110 mg/dL High BEDSIDE GLU 327 Result Comment: Dr Orders Followed MANAGEMENT OF PATIENT CARE PER NURSING PROTOCOL Performed By: #### L501.080 #### [facility] Point of Care [address] [place], [place] [address] BEDSIDE GLUCOSE Collected: 09/24/2017 Status: F Source: [place] 11:39 AM [facility] REPOSITORY TYPE CODE TESTS RESULT OUT OF REFERENCE UNITS RANGE LAB L501.080 70-110 mg/dL High BEDSIDE GLU 318 Result Comment: Dr Orders Followed MANAGEMENT OF PATIENT CARE PER NURSING PROTOCOL Performed By: #### L501.080 #### [facility] Point of Care [address] [place] [address] BEDSIDE GLUCOSE Collected: 09/24/2017 Status: F Source: [place] 6:40 AM [facility] REPOSITORY TYPE CODE TESTS RESULT OUT OF REFERENCE UNITS RANGE LAB L501.080 70-110 mg/dL High BEDSIDE GLU 240 Result Comment: MANAGEMENT OF PATIENT CARE PER NURSING PROTOCOL Performed By: #### L501.080 #### [facility] Point of Care [address] [place], [place] [address] CBC W/DIFF, AUTOMATED Collected: 09/24/2017 Status: F Source: [place] 5:40 AM [facility] REPOSITORY TYPE CODE TESTS RESULT OUT [...] Lymph 1.12 Performed By: #### L100.0100 #### [facility] [address] [place], [address] BASIC METABOLIC Collected: 09/24/2017 Status: F Source: [place] PROFILE (BMP) 5:40 AM [facility] REPOSITORY TYPE CODE TESTS RESULT OUT [...] GAP 8 Performed By: #### L500.2500 #### [facility] [address] [place], [address] C-PEPTIDE Collected: 09/24/2017 Status: F Source: [place] 5:40 AM [facility] REPOSITORY TYPE CODE TESTS RESULT OUT OF RANGE REFERENCE UNITS LAB L3100.7750 1.1-4.4 ng/mL Normal C PEPTIDE 3.1 01540 Result Comment: C-Peptide reference interval is for fasting patients. Performed at: [facility] [id number] Powertrain Engineer: Matthias Reeder PhD, Phone: [phone] Performed By: #### L3100.7750 #### [facility] (refer to report for specific site) refer to report for address and phone number BEDSIDE GLUCOSE Collected: 09/23/2017 Status: F Source: [place] 8:40 PM [facility] REPOSITORY TYPE CODE TESTS RESULT OUT OF REFERENCE UNITS RANGE LAB L501.080 70-110 mg/dL High BEDSIDE GLU 290 Result Comment: MANAGEMENT OF PATIENT CARE PER NURSING PROTOCOL Performed By: #### L501.080 #### [facility] Point of Care [address] [facility] [place] [address] BEDSIDE GLUCOSE Collected: 09/23/2017 Status: F Source: [place] 5:02 PM [facility] REPOSITORY TYPE CODE TESTS RESULT OUT OF REFERENCE UNITS RANGE LAB L501.080 70-110 mg/dL High BEDSIDE GLU 279 Result Comment: MANAGEMENT OF PATIENT CARE PER NURSING PROTOCOL Performed By: #### L501.080 #### [facility] Point of Care [address] [place] [address] BEDSIDE GLUCOSE Collected: 09/23/2017 Status: F Source: [place] 10:53 AM [facility] REPOSITORY TYPE CODE TESTS RESULT OUT OF REFERENCE UNITS RANGE LAB L501.080 70-110 mg/dL High BEDSIDE GLU 207 Result Comment: MANAGEMENT OF PATIENT CARE PER NURSING PROTOCOL Performed By: #### L501.080 #### [facility] Point of Care [address] [place] [address] BEDSIDE GLUCOSE Collected: 09/23/2017 Status: F Source: [place] 6:19 AM [facility] REPOSITORY TYPE CODE TESTS RESULT OUT OF RANGE REFERENCE UNITS LAB L501.080 70-110 mg/dL Normal BEDSIDE GLU 105 Result Comment: MANAGEMENT OF PATIENT CARE PER NURSING PROTOCOL Performed By: #### L501.080 #### [facility] Point of Care [address] [place] [address] BEDSIDE GLUCOSE Collected: 09/22/2017 Status: F Source: [place] 8:42 PM [facility] REPOSITORY TYPE CODE TESTS RESULT OUT OF REFERENCE UNITS RANGE LAB L501.080 70-110 mg/dL High BEDSIDE GLU 251 Result Comment: MANAGEMENT OF PATIENT CARE PER NURSING PROTOCOL Performed By: #### L501.080 #### [facility] Point of Care [address] [place], [place] [address] DISCHARGE SUMMARY Observed: 09/22/2017 Status: F Source: [place] 7:26 PM [facility] REPOSITORY [facility] Medical Records Department [address] [place] [address] Discharge Summary 09/21/17 2140 MR#: [id number] Acct: [id number] Name: DENISDEL Kimmy Rep #: [id number] : 1960 57 From: Arnie Reese MD PCP: OUT OF TOWN DOCTOR Status: ADM IN Y Location: [facility] TCU16-1 ADDENDUM by Arnie Reese MD on 09/22/17 [...] 224 H 258 H Consultations 09/07/17 Consult: Onc/Wound/driller multiple spindle Routine Comment: Operations: None Procedures: None Summary [...] PO DAILY 01/08/17 Nebivolol HCl [Bystolic (Beta Akira)] 10 mg PO DAILY 01/08/17 Omeprazole [Prilosec] [...] PO BIDCM #60 packet Primary Care Physician: [facility] Doctor,Out of [Primary Care Provider] - Please [...] Signature (if applicable): Date CC: OUT OF TOWN DOCTOR; Arnie Reese MD Signed DISCHARGE INSTRUCTION Observed: 09/22/2017 Status: F Source: [place] 7:25 PM [facility] REPOSITORY [facility] Medical Records Department [address] [place] [address] Instructions for Home/Discharge Instructions 09/21/172136 MR#: [id number] Acct: [id number] Name: DEL BARRIOS Rep #: [id number] : 1960 57 From: Arnie Reese MD PCP: OUT OF TOWN DOCTOR Status: ADM IN ADDENDUM by Arnie [...] PO DAILY 01/08/17 Nebivolol HCl [Bystolic (Beta Akira)] 10 mg PO DAILY 01/08/17 Omeprazole [Prilosec] [...] PO BIDCM #60 packet Primary Care Physician: [facility] Doctor,Out of [Primary Care Provider] - Please follow up with your Primary Care Physician in: 1 week. Proposed Discharge Date: 09/27/17 09/21/172139 <Electronically signed by Arnie Reese MD> Date Arnie Reese MD CC: Rachele Lux DPM; OUT OF TOWN DOCTOR; Dale Daigle MD BEDSIDE GLUCOSE Collected: 09/22/2017 Status: F Source: [place] 4:46 PM [facility] REPOSITORY TYPE CODE TESTS RESULT OUT OF REFERENCE UNITS RANGE LAB L501.080 70-110 mg/dL High BEDSIDE GLU 207 Result Comment: MANAGEMENT OF PATIENT CARE PER NURSING PROTOCOL Performed By: #### L501.080 #### [facility] Point of Care [address] [place] [address] BEDSIDE GLUCOSE Collected: 09/22/2017 Status: F Source: [place] 11:11 AM [facility] REPOSITORY TYPE CODE TESTS RESULT OUT OF REFERENCE UNITS RANGE LAB L501.080 70-110 mg/dL High BEDSIDE GLU 241 Result Comment: Dr Sawant Followed MANAGEMENT OF PATIENT CARE PER NURSING PROTOCOL Performed By: #### L501.080 #### [facility] Point of Care [address] [place], [place] [address] BEDSIDE GLUCOSE Collected: 09/22/2017 Status: F Source: [place] 6:36 AM [facility] REPOSITORY TYPE CODE TESTS RESULT OUT OF REFERENCE UNITS RANGE LAB L501.080 70-110 mg/dL High BEDSIDE GLU 141 Result Comment: MANAGEMENT OF PATIENT CARE PER NURSING PROTOCOL Performed By: #### L501.080 #### [facility] Point of Care [address] [place] [address] HOME HEALTH PROGRESS Observed: 09/21/2017 Status: F Source: RUDY NOTE 9:42 PM [facility] REPOSITORY [facility] Medical Records Department [address] [place] [address] Home Health Progress Note [id number] Encounter Encounter Date: 09/21/172141 MR#: [id number] Acct: [id number] Name: DEL BARRIOS Rep #: [id number] : 1960 57 From: Arnie Reese MD PCP: OUT OF TOWN DOCTOR Status: ADM IN Location: [place] [address] Home Health Note - Plan Overview of [...] (Chronic) - Requirements and Reasons Disciplines Needed/Ordered: [facility], Physical Therapy Reason for Disciplines: Disease Specific [...] Disciplines Needed/Ordered: Occupational Therapy, Home Health Aide 09/21/172141 <Electronically signed by Arnie Reese MD> Date Arnie Reese MD Cosigner Signature (if indicated): Date CC: Signed BEDSIDE GLUCOSE Collected: 09/21/2017 Status: F Source: RUDY 9:02 PM [facility] REPOSITORY TYPE CODE TESTS RESULT OUT OF REFERENCE UNITS RANGE LAB L501.080 70-110 mg/dL High BEDSIDE GLU 258 Result Comment: MANAGEMENT OF PATIENT CARE PER NURSING PROTOCOL Performed By: #### L501.080 #### [facility] Point of Care [address] [place], [place] [address] BEDSIDE GLUCOSE Collected: 09/21/2017 Status: F Source: RUDY 4:58 PM [facility] REPOSITORY TYPE CODE TESTS RESULT OUT OF REFERENCE UNITS RANGE LAB L501.080 70-110 mg/dL High BEDSIDE GLU 224 Result Comment: MANAGEMENT OF PATIENT CARE PER NURSING PROTOCOL Performed By: #### L501.080 #### [facility] Point of Care [address] [place] [address] BEDSIDE GLUCOSE Collected: 09/21/2017 Status: F Source: RUDY 11:30 AM [facility] REPOSITORY TYPE CODE TESTS RESULT OUT OF REFERENCE UNITS RANGE LAB L501.080 70-110 mg/dL High BEDSIDE GLU 214 Result Comment: Dr Sawant Followed MANAGEMENT OF PATIENT CARE PER NURSING PROTOCOL Performed By: #### L501.080 #### [facility] Point of Care [address] [place] [address] BEDSIDE GLUCOSE Collected: 09/21/2017 Status: F Source: RUDY 6:39 AM [facility] REPOSITORY TYPE CODE TESTS RESULT OUT OF REFERENCE UNITS RANGE LAB L501.080 70-110 mg/dL High BEDSIDE GLU 159 Result Comment: MANAGEMENT OF PATIENT CARE PER NURSING PROTOCOL Performed By: #### L501.080 #### [facility] Point of Care [address] [place] [address] BEDSIDE GLUCOSE Collected: 09/20/2017 Status: F Source: RUDY 9:09 PM [facility] REPOSITORY TYPE CODE TESTS RESULT OUT OF REFERENCE UNITS RANGE LAB L501.080 70-110 mg/dL High BEDSIDE GLU 240 Result Comment: MANAGEMENT OF PATIENT CARE PER NURSING PROTOCOL Performed By: #### L501.080 #### [facility] Point of Care [address] [place] [address] BEDSIDE GLUCOSE Collected: 09/20/2017 Status: F Source: RUDY 5:00 PM [facility] REPOSITORY TYPE CODE TESTS RESULT OUT OF REFERENCE UNITS RANGE LAB L501.080 70-110 mg/dL High BEDSIDE GLU 157 Result Comment: MANAGEMENT OF PATIENT CARE PER NURSING PROTOCOL Performed By: #### L501.080 #### [facility] Point of Care [address] [place] [address] BEDSIDE GLUCOSE Collected: 09/20/2017 Status: F Source: RUDY 11:19 AM [facility] REPOSITORY TYPE CODE TESTS RESULT OUT OF REFERENCE UNITS RANGE LAB L501.080 70-110 mg/dL High BEDSIDE GLU 154 Result Comment: MANAGEMENT OF PATIENT CARE PER NURSING PROTOCOL Performed By: #### L501.080 #### [facility] Point of Care [address] [place] [address] BEDSIDE GLUCOSE Collected: 09/20/2017 Status: F Source: RUDY 6:26 AM [facility] REPOSITORY TYPE CODE TESTS RESULT OUT OF REFERENCE UNITS RANGE LAB L501.080 70-110 mg/dL High BEDSIDE GLU 209 Result Comment: MANAGEMENT OF PATIENT CARE PER NURSING PROTOCOL Performed By: #### L501.080 #### [facility] Point of Care [address] [place] [address] BEDSIDE GLUCOSE Collected: 09/19/2017 Status: F Source: [place] 8:51 PM [facility] REPOSITORY TYPE CODE TESTS RESULT OUT OF REFERENCE UNITS RANGE LAB L501.080 70-110 mg/dL High BEDSIDE GLU 289 Result Comment: MANAGEMENT OF PATIENT CARE PER NURSING PROTOCOL Performed By: #### L501.080 #### [facility] Point of Care [address] [place] [address] OPERATIVE REPORT Observed: 09/19/2017 Status: F Source: [place] 6:08 PM [facility] Medical Records Department [address] [place] [address] Operative Report 09/14/17 1614 MR#: [id number] Acct: [id number] Name: DEL BARRIOS Rep #: [id number] : 1960 57 From: Rachele Lux DPM PCP: Status: [facility] [place] [facility] [place] (1) Ulcer of right foot [...] pressure applied materials: amniofill, epicord, 3-0 prolene certified nuclear medicine technologist: none Type of Anesthesia:: Local - versed [...] prophylaxis per primary team are appreciated. Rachele Lux, DPM [facility] - Complications none 09/19/17 1808 <Electronically signed by Rachele Lux DPM> Date Rachele Lux DPM CC: Rachele Lux DPTrupti Signed BEDSIDE GLUCOSE Collected: 09/19/2017 Status: F Source: RUDY 5:02 PM [facility] REPOSITORY TYPE CODE TESTS RESULT OUT OF REFERENCE UNITS RANGE LAB L501.080 70-110 mg/dL High BEDSIDE GLU 248 Result Comment: Dr Sawant Followed MANAGEMENT OF PATIENT CARE PER NURSING PROTOCOL Performed By: #### L501.080 #### [facility] Point of Care [address] [place] [address] BEDSIDE GLUCOSE Collected: 09/19/2017 Status: F Source: RUDY 11:05 AM [facility] REPOSITORY TYPE CODE TESTS RESULT OUT OF REFERENCE UNITS RANGE LAB L501.080 70-110 mg/dL High BEDSIDE GLU 254 Result Comment: MANAGEMENT OF PATIENT CARE PER NURSING PROTOCOL Performed By: #### L501.080 #### [facility] Point of Care [address] [place] [address] BEDSIDE GLUCOSE Collected: 09/19/2017 Status: F Source: RUDY 6:40 AM [facility] REPOSITORY TYPE CODE TESTS RESULT OUT OF REFERENCE UNITS RANGE LAB L501.080 70-110 mg/dL High BEDSIDE GLU 178 Result Comment: MANAGEMENT OF PATIENT CARE PER NURSING PROTOCOL Performed By: #### L501.080 #### [facility] Point of Care [address] [place] [address] BEDSIDE GLUCOSE Collected: 09/18/2017 Status: F Source: RUDY 8:49 PM [facility] REPOSITORY TYPE CODE TESTS RESULT OUT OF REFERENCE UNITS RANGE LAB L501.080 70-110 mg/dL High BEDSIDE GLU 364 Result Comment: MANAGEMENT OF PATIENT CARE PER NURSING PROTOCOL Performed By: #### L501.080 #### [facility] Point of Care [address] [place] [address] BEDSIDE GLUCOSE Collected: 09/18/2017 Status: F Source: [place]UD[place] 4:35 PM [facility] REPOSITORY TYPE CODE TESTS RESULT OUT OF REFERENCE UNITS RANGE LAB L501.080 70-110 mg/dL High BEDSIDE GLU 283 Result Comment: MANAGEMENT OF PATIENT CARE PER NURSING PROTOCOL Performed By: #### L501.080 #### [facility] Point of Care [address] [place], [place] [address] BEDSIDE GLUCOSE Collected: 09/18/2017 Status: F Source: RUDY 11:26 AM [facility] REPOSITORY TYPE CODE TESTS RESULT OUT OF REFERENCE UNITS RANGE LAB L501.080 70-110 mg/dL High BEDSIDE GLU 247 Result Comment: MANAGEMENT OF PATIENT CARE PER NURSING PROTOCOL Performed By: #### L501.080 #### [facility] Point of Care [address] [place] [address] BEDSIDE GLUCOSE Collected: 09/18/2017 Status: F Source: [place]UD[place] 7:00 AM [facility] REPOSITORY TYPE CODE TESTS RESULT OUT OF REFERENCE UNITS RANGE LAB L501.080 70-110 mg/dL High BEDSIDE GLU 181 Result Comment: MANAGEMENT OF PATIENT CARE PER NURSING PROTOCOL Performed By: #### L501.080 #### [facility] Point of Care [address] [place] [address] BEDSIDE GLUCOSE Collected: 09/17/2017 Status: F Source: [place] 9:25 PM [facility] REPOSITORY TYPE CODE TESTS RESULT OUT OF REFERENCE UNITS RANGE LAB L501.080 70-110 mg/dL High BEDSIDE GLU 268 Result Comment: MANAGEMENT OF PATIENT CARE PER NURSING PROTOCOL Performed By: #### L501.080 #### [facility] Point of Care [address] [place] [address] BEDSIDE GLUCOSE Collected: 09/17/2017 Status: F Source: RUDY 4:59 PM [facility] REPOSITORY TYPE CODE TESTS RESULT OUT OF REFERENCE UNITS RANGE LAB L501.080 70-110 mg/dL High BEDSIDE GLU 280 Result Comment: MANAGEMENT OF PATIENT CARE PER NURSING PROTOCOL Performed By: #### L501.080 #### [facility] Point of Care [address] [place] [address] BEDSIDE GLUCOSE Collected: 09/17/2017 Status: F Source: RUDY 11:23 AM [facility] REPOSITORY TYPE CODE TESTS RESULT OUT OF REFERENCE UNITS RANGE LAB L501.080 70-110 mg/dL High BEDSIDE GLU 247 Result Comment: MANAGEMENT OF PATIENT CARE PER NURSING PROTOCOL Performed By: #### L501.080 #### [facility] Point of Care [address] [place] [address] BEDSIDE GLUCOSE Collected: 09/17/2017 Status: F Source: RUDY 6:42 AM [facility] REPOSITORY TYPE CODE TESTS RESULT OUT OF REFERENCE UNITS RANGE LAB L501.080 70-110 mg/dL High BEDSIDE GLU 141 Result Comment: MANAGEMENT OF PATIENT CARE PER NURSING PROTOCOL Performed By: #### L501.080 #### [facility] Point of Care [address] [place] [address] BEDSIDE GLUCOSE Collected: 09/16/2017 Status: F Source: RUDY 9:07 PM [facility] REPOSITORY TYPE CODE TESTS RESULT OUT OF REFERENCE UNITS RANGE LAB L501.080 70-110 mg/dL High BEDSIDE GLU 237 Result Comment: MANAGEMENT OF PATIENT CARE PER NURSING PROTOCOL Performed By: #### L501.080 #### [facility] Point of Care [address] [place] [address] BEDSIDE GLUCOSE Collected: 09/16/2017 Status: F Source: [place]UDY 4:39 PM [facility] REPOSITORY TYPE CODE TESTS RESULT OUT OF REFERENCE UNITS RANGE LAB L501.080 70-110 mg/dL High BEDSIDE GLU 211 Result Comment: MANAGEMENT OF PATIENT CARE PER NURSING PROTOCOL Performed By: #### L501.080 #### [facility] Point of Care [address] [place] [address] BEDSIDE GLUCOSE Collected: 09/16/2017 Status: F Source: RUD[place] 10:47 AM [facility] REPOSITORY TYPE CODE TESTS RESULT OUT OF REFERENCE UNITS RANGE LAB L501.080 70-110 mg/dL High BEDSIDE GLU 241 Result Comment: MANAGEMENT OF PATIENT CARE PER NURSING PROTOCOL Performed By: #### L501.080 #### [facility] Point of Care [address] [place] [address] BEDSIDE GLUCOSE Collected: 09/16/2017 Status: F Source: RUDY 6:38 AM [facility] REPOSITORY TYPE CODE TESTS RESULT OUT OF REFERENCE UNITS RANGE LAB L501.080 70-110 mg/dL High BEDSIDE GLU 137 Result Comment: MANAGEMENT OF PATIENT CARE PER NURSING PROTOCOL Performed By: #### L501.080 #### [facility] Point of Care [address] [place] [address] BEDSIDE GLUCOSE Collected: 09/15/2017 Status: F Source: RUDY 9:00 PM [facility] REPOSITORY TYPE CODE TESTS RESULT OUT OF REFERENCE UNITS RANGE LAB L501.080 70-110 mg/dL High BEDSIDE GLU 319 Result Comment: MANAGEMENT OF PATIENT CARE PER NURSING PROTOCOL Performed By: #### L501.080 #### [facility] Point of Care [address] [place] [address] BEDSIDE GLUCOSE Collected: 09/15/2017 Status: F Source: [place]UD[place] 5:00 PM [facility] REPOSITORY TYPE CODE TESTS RESULT OUT OF REFERENCE UNITS RANGE LAB L501.080 70-110 mg/dL High BEDSIDE GLU 337 Result Comment: MANAGEMENT OF PATIENT CARE PER NURSING PROTOCOL Performed By: #### L501.080 #### [facility] Point of Care [address] [place] [address] BEDSIDE GLUCOSE Collected: 09/15/2017 Status: F Source: RUDY 11:28 AM [facility] REPOSITORY TYPE CODE TESTS RESULT OUT OF REFERENCE UNITS RANGE LAB L501.080 70-110 mg/dL High BEDSIDE GLU 374 Result Comment: Dr Orders Followed MANAGEMENT OF PATIENT CARE PER NURSING PROTOCOL Performed By: #### L501.080 #### [facility] Point of Care [address] [place] [address] BEDSIDE GLUCOSE Collected: 09/15/2017 Status: F Source: [place]UD[place] 6:21 AM [facility] REPOSITORY TYPE CODE TESTS RESULT OUT OF REFERENCE UNITS RANGE LAB L501.080 70-110 mg/dL High BEDSIDE GLU 381 Result Comment: MANAGEMENT OF PATIENT CARE PER NURSING PROTOCOL Performed By: #### L501.080 #### [facility] Point of Care [address] [place], [place] [address] BASIC METABOLIC Collected: 09/15/2017 Status: F Source: RUDY PROFILE (BMP) 6:15 AM [facility] REPOSITORY TYPE CODE TESTS RESULT OUT [...] GAP 7 Performed By: #### L500.2500 #### [facility] [address] [place], [place], [address] BEDSIDE GLUCOSE Collected: 09/14/2017 Status: F Source: RUD[place] 9:02 PM [facility] REPOSITORY TYPE CODE TESTS RESULT OUT OF REFERENCE UNITS RANGE LAB L501.080 70-110 mg/dL High BEDSIDE GLU 308 Result Comment: MANAGEMENT OF PATIENT CARE PER NURSING PROTOCOL Performed By: #### L501.080 #### [facility] Point of Care [address] [place] [address] BEDSIDE GLUCOSE Collected: 09/14/2017 Status: F Source: RUDY 5:09 PM [facility] REPOSITORY TYPE CODE TESTS RESULT OUT OF REFERENCE UNITS RANGE LAB L501.080 70-110 mg/dL High BEDSIDE GLU 250 Result Comment: MANAGEMENT OF PATIENT CARE PER NURSING PROTOCOL Performed By: #### L501.080 #### [facility] Point of Care [address] [place] [address] BEDSIDE GLUCOSE Collected: 09/14/2017 Status: F Source: RUDY 2:19 PM [facility] REPOSITORY TYPE CODE TESTS RESULT OUT OF REFERENCE UNITS RANGE LAB L501.080 70-110 mg/dL High BEDSIDE GLU 224 Result Comment: MANAGEMENT OF PATIENT CARE PER NURSING PROTOCOL Performed By: #### L501.080 #### [facility] Point of Care [address] [place] [address] BEDSIDE GLUCOSE Collected: 09/14/2017 Status: F Source: RUDY 11:14 AM [facility] REPOSITORY TYPE CODE TESTS RESULT OUT OF REFERENCE UNITS RANGE LAB L501.080 70-110 mg/dL High BEDSIDE GLU 260 Result Comment: MANAGEMENT OF PATIENT CARE PER NURSING PROTOCOL Performed By: #### L501.080 #### [facility] Point of Care [address] [place] [address] 12 LEAD ELECTROCARDIOGRAM Observed: 09/14/2017 Status: F Source: [place]UD[place] 9:31 AM [facility] REPOSITORY [facility] Cardiovascular Services [address] [place] [address] 12 Lead EKG 09/02/17 1342 MR#: [id number] Acct: [id number] Name: DEL BARRIOS Rep #: [id number] : 1960 57 From: Godwin Carreon MD Attending Dr: Km CARDENAS,Addis Status: DIS IN Ordering Dr: Rachele Lux DPM Date: 09/02/17 Location: [facility] [place] Sex: M C Admitted: [...] ECG No previous ECGs available Confirmed by LAURI CARDENAS, GODWIN ([id number]), editorial director OSCAR PARIKH ([id number]) on 09/14/2017 9:31:36 AM Referred By: Ruddy Sharma Confirmed By:GODWIN CARREON MD 09/14/17930 Date Godwin Carreon MD CC: Rachele Lux DPM; Addis Barbour MD; Ruddy Sharma DO; OUT OF TOWN DOCTOR Signed BEDSIDE GLUCOSE Collected: 09/14/2017 Status: F Source: [place] 6:31 AM [facility] REPOSITORY TYPE CODE TESTS RESULT OUT OF REFERENCE UNITS RANGE LAB L501.080 70-110 mg/dL High BEDSIDE GLU 249 Result Comment: MANAGEMENT OF PATIENT CARE PER NURSING PROTOCOL Performed By: #### L501.080 #### [facility] Point of Care [facility] [place] [address] CBC W/DIFF, AUTOMATED Collected: 09/14/2017 Status: F Source: [place] 5:00 AM [facility] REPOSITORY Order Comment: SPECIMEN OBTAINED FROM LINE [...] Lymph 1.26 Performed By: #### L100.0100 #### [facility] [address] [place], [address] BASIC METABOLIC Collected: 09/14/2017 Status: F Source: [place] PROFILE ([facility]) 5:00 AM [facility] REPOSITORY TYPE CODE TESTS RESULT OUT [...] GAP 7 Performed By: #### L500.2500 #### [facility] [address] [place], [address] BEDSIDE GLUCOSE Collected: 09/13/2017 Status: F Source: [place] 9:04 PM [facility] REPOSITORY TYPE CODE TESTS RESULT OUT OF REFERENCE UNITS RANGE LAB L501.080 70-110 mg/dL High BEDSIDE GLU 311 Result Comment: MANAGEMENT OF PATIENT CARE PER NURSING PROTOCOL Performed By: #### L501.080 #### [facility] Point of Care [address] [place] [address] BEDSIDE GLUCOSE Collected: 09/13/2017 Status: F Source: [place] 4:49 PM [facility] REPOSITORY TYPE CODE TESTS RESULT OUT OF REFERENCE UNITS RANGE LAB L501.080 70-110 mg/dL High BEDSIDE GLU 345 Result Comment: MANAGEMENT OF PATIENT CARE PER NURSING PROTOCOL Performed By: #### L501.080 #### [facility] Point of Care [address] [place] [address] BEDSIDE GLUCOSE Collected: 09/13/2017 Status: F Source: [place] 11:24 AM [facility] REPOSITORY TYPE CODE TESTS RESULT OUT OF REFERENCE UNITS RANGE LAB L501.080 70-110 mg/dL High BEDSIDE GLU 336 Result Comment: MANAGEMENT OF PATIENT CARE PER NURSING PROTOCOL Performed By: #### L501.080 #### [facility] Point of Care [address] [place] [address] BEDSIDE GLUCOSE Collected: 09/13/2017 Status: F Source: [place] 6:29 AM [facility] REPOSITORY TYPE CODE TESTS RESULT OUT OF REFERENCE UNITS RANGE LAB L501.080 70-110 mg/dL High BEDSIDE GLU 258 Result Comment: MANAGEMENT OF PATIENT CARE PER NURSING PROTOCOL Performed By: #### L501.080 #### [facility] Point of Care [address] [place] [address] BEDSIDE GLUCOSE Collected: 09/12/2017 Status: F Source: [place] 9:10 PM [facility] REPOSITORY TYPE CODE TESTS RESULT OUT OF REFERENCE UNITS RANGE LAB L501.080 70-110 mg/dL High BEDSIDE GLU 336 Result Comment: MANAGEMENT OF PATIENT CARE PER NURSING PROTOCOL Performed By: #### L501.080 #### [facility] Point of Care [address] [place] [address] BEDSIDE GLUCOSE Collected: 09/12/2017 Status: F Source: [place] 4:39 PM [facility] REPOSITORY TYPE CODE TESTS RESULT OUT OF REFERENCE UNITS RANGE LAB L501.080 70-110 mg/dL High BEDSIDE GLU 270 Result Comment: MANAGEMENT OF PATIENT CARE PER NURSING PROTOCOL Performed By: #### L501.080 #### [facility] Point of Care [address] [place] [address] BEDSIDE GLUCOSE Collected: 09/12/2017 Status: F Source: [place] 11:09 AM [facility] REPOSITORY TYPE CODE TESTS RESULT OUT OF REFERENCE UNITS RANGE LAB L501.080 70-110 mg/dL High BEDSIDE GLU 178 Result Comment: Dr Orders Followed MANAGEMENT OF PATIENT CARE PER NURSING PROTOCOL Performed By: #### L501.080 #### [facility] Point of Care [address] [place] [address] BEDSIDE GLUCOSE Collected: 09/12/2017 Status: F Source: [place] 6:41 AM [facility] REPOSITORY TYPE CODE TESTS RESULT OUT OF REFERENCE UNITS RANGE LAB L501.080 70-110 mg/dL High BEDSIDE GLU 194 Result Comment: MANAGEMENT OF PATIENT CARE PER NURSING PROTOCOL Performed By: #### L501.080 #### [facility] Point of Care [address] [place] [address] BEDSIDE GLUCOSE Collected: 09/11/2017 Status: F Source: [place] 9:22 PM [facility] REPOSITORY TYPE CODE TESTS RESULT OUT OF REFERENCE UNITS RANGE LAB L501.080 70-110 mg/dL High BEDSIDE GLU 247 Result Comment: MANAGEMENT OF PATIENT CARE PER NURSING PROTOCOL Performed By: #### L501.080 #### [facility] Point of Care [address] [place] [address] BEDSIDE GLUCOSE Collected: 09/11/2017 Status: F Source: [place] 4:42 PM [facility] REPOSITORY TYPE CODE TESTS RESULT OUT OF REFERENCE UNITS RANGE LAB L501.080 70-110 mg/dL High BEDSIDE GLU 272 Result Comment: MANAGEMENT OF PATIENT CARE PER NURSING PROTOCOL Performed By: #### L501.080 #### [facility] Point of Care [address] [place] [address] BEDSIDE GLUCOSE Collected: 09/11/2017 Status: F Source: [place] 11:31 AM [facility] REPOSITORY TYPE CODE TESTS RESULT OUT OF REFERENCE UNITS RANGE LAB L501.080 70-110 mg/dL High BEDSIDE GLU 259 Result Comment: Dr Orders Followed MANAGEMENT OF PATIENT CARE PER NURSING PROTOCOL Performed By: #### L501.080 #### [facility] Point of Care [address] [place] [address] BEDSIDE GLUCOSE Collected: 09/11/2017 Status: F Source: [place] 6:51 AM [facility] REPOSITORY TYPE CODE TESTS RESULT OUT OF REFERENCE UNITS RANGE LAB L501.080 70-110 mg/dL High BEDSIDE GLU 239 Result Comment: MANAGEMENT OF PATIENT CARE PER NURSING PROTOCOL Performed By: #### L501.080 #### [facility] Point of Care [address] [place] [address] BEDSIDE GLUCOSE Collected: 09/10/2017 Status: F Source: [place] 9:09 PM [facility] REPOSITORY TYPE CODE TESTS RESULT OUT OF REFERENCE UNITS RANGE LAB L501.080 70-110 mg/dL High BEDSIDE GLU 319 Result Comment: MANAGEMENT OF PATIENT CARE PER NURSING PROTOCOL Performed By: #### L501.080 #### [facility] Point of Care [address] [place], [place] [address] OPERATIVE REPORT Observed: 09/10/2017 Status: F Source: [place] 5:02 PM [facility] REPOSITORY [facility] Medical Records Department [address] [place] [address] Operative Report 09/03/17 1050 MR#: [id number] Acct: [id number] Name: DEL BARRIOS Rep #: [id number] : 1960 57 From: Rachele Lux DPM PCP: OUT OF TOWN DOCTOR Status: DIS IN Y Location: [facility] [place] [id number] Problem List (1) Ulcer of right foot with necrosis of bone Status: Chronic (2) Osteomyelitis Status: Suspected (3) Type 2 diabetes mellitus with diabetic polyneuropathy Status: Chronic Report of Operation Date of Procedure: 09/03/17 - certified registered dental assistant: Anselmo Mahajan PGY1 Pre-Operative Diagnosis: necrotic ulcer right heel with bone exposed (suspected osteomyelitis) Post-Operative Diagnosis: necrotic ulcer right heel with bone exposed (suspected osteomyelitis) Surgery/Procedure Performed:: debridement of right heel ulcer including bone. bone biopsy right heel Description of Surgical Findings:: Hemostasis: [place] tourniquet 250 mmHg Materials: 3-0 Prolene Complications: None certified nuclear medicine technologist: none Type of Anesthesia:: Local MAC - [...] benefit the most from going to a retirement and this is imperative for the success of saving his limb. He is also been refusing to go to retirement and this contributes to poor prognosis. To continue on IV antibiotics per infectious disease team in which input is greatly appreciated. The pathology and microbiology specimen results from this surgery are pending at this time. Continue to follow his case close while in house. Management and DVT prophylaxis per primary team are appreciated. Rachele Lux DPM [facility] 09/10/17 3945 <Electronically signed by Rachele Lux DPM> Date Rachele Lux DPM CC: Rachele Lux DPM; Ruddy Sharma DO; OUT OF TOWN DOCTOR; Dale Daigle MD Signed BEDSIDE GLUCOSE Collected: 09/10/2017 Status: F Source: [place] 4:55 PM [facility] REPOSITORY TYPE CODE TESTS RESULT OUT OF REFERENCE UNITS RANGE LAB L501.080 70-110 mg/dL High BEDSIDE GLU 260 Result Comment: MANAGEMENT OF PATIENT CARE PER NURSING PROTOCOL Performed By: #### L501.080 #### [facility] Point of Care [address] [place] [address] BEDSIDE GLUCOSE Collected: 09/10/2017 Status: F Source: [place] 11:41 AM [facility] REPOSITORY TYPE CODE TESTS RESULT OUT OF REFERENCE UNITS RANGE LAB L501.080 70-110 mg/dL High BEDSIDE GLU 259 Result Comment: Dr Sawant Followed MANAGEMENT OF PATIENT CARE PER NURSING PROTOCOL Performed By: #### L501.080 #### [facility] Point of Care [address] [place] [address] BEDSIDE GLUCOSE Collected: 09/10/2017 Status: F Source: [place] 6:31 AM [facility] REPOSITORY TYPE CODE TESTS RESULT OUT OF REFERENCE UNITS RANGE LAB L501.080 70-110 mg/dL High BEDSIDE GLU 238 Result Comment: MANAGEMENT OF PATIENT CARE PER NURSING PROTOCOL Performed By: #### L501.080 #### [facility] Point of Care [address] [place] [address] BEDSIDE GLUCOSE Collected: 09/09/2017 Status: F Source: [place] 8:55 PM [facility] REPOSITORY TYPE CODE TESTS RESULT OUT OF REFERENCE UNITS RANGE LAB L501.080 70-110 mg/dL High BEDSIDE GLU 294 Result Comment: MANAGEMENT OF PATIENT CARE PER NURSING PROTOCOL Performed By: #### L501.080 #### [facility] Point of Care [address] [place] [address] BEDSIDE GLUCOSE Collected: 09/09/2017 Status: F Source: [place] 4:55 PM [facility] REPOSITORY TYPE CODE TESTS RESULT OUT OF REFERENCE UNITS RANGE LAB L501.080 70-110 mg/dL High BEDSIDE GLU 232 Result Comment: MANAGEMENT OF PATIENT CARE PER NURSING PROTOCOL Performed By: #### L501.080 #### [facility] Point of Care [address] [place] [address] BEDSIDE GLUCOSE Collected: 09/09/2017 Status: F Source: [place] 4:52 PM [facility] REPOSITORY TYPE CODE TESTS RESULT OUT OF REFERENCE UNITS RANGE LAB L501.080 70-110 mg/dL High BEDSIDE GLU 257 Result Comment: MANAGEMENT OF PATIENT CARE PER NURSING PROTOCOL Performed By: #### L501.080 #### [facility] Point of Care [address] [place] [address] BEDSIDE GLUCOSE Collected: 09/09/2017 Status: F Source: [place] 11:14 AM [facility] REPOSITORY TYPE CODE TESTS RESULT OUT OF REFERENCE UNITS RANGE LAB L501.080 70-110 mg/dL High BEDSIDE GLU 216 Result Comment: MANAGEMENT OF PATIENT CARE PER NURSING PROTOCOL Performed By: #### L501.080 #### [facility] Point of Care [address] [place] [address] BEDSIDE GLUCOSE Collected: 09/09/2017 Status: F Source: [place] 6:27 AM [facility] REPOSITORY TYPE CODE TESTS RESULT OUT OF REFERENCE UNITS RANGE LAB L501.080 70-110 mg/dL High BEDSIDE GLU 226 Result Comment: MANAGEMENT OF PATIENT CARE PER NURSING PROTOCOL Performed By: #### L501.080 #### [facility] Point of Care [address] [place] [address] BEDSIDE GLUCOSE Collected: 09/08/2017 Status: F Source: [place] 8:56 PM [facility] REPOSITORY TYPE CODE TESTS RESULT OUT OF REFERENCE UNITS RANGE LAB L501.080 70-110 mg/dL High BEDSIDE GLU 207 Result Comment: MANAGEMENT OF PATIENT CARE PER NURSING PROTOCOL Performed By: #### L501.080 #### [facility] Point of Care [address] [place] [address] BEDSIDE GLUCOSE Collected: 09/08/2017 Status: F Source: [place] 4:47 PM [facility] REPOSITORY TYPE CODE TESTS RESULT OUT OF REFERENCE UNITS RANGE LAB L501.080 70-110 mg/dL High BEDSIDE GLU 217 Result Comment: MANAGEMENT OF PATIENT CARE PER NURSING PROTOCOL Performed By: #### L501.080 #### [facility] Point of Care [address] [place] [address] BEDSIDE GLUCOSE Collected: 09/08/2017 Status: F Source: [place] 12:07 PM [facility] REPOSITORY TYPE CODE TESTS RESULT OUT OF REFERENCE UNITS RANGE LAB L501.080 70-110 mg/dL High BEDSIDE GLU 256 Result Comment: Dr Savana Followed MANAGEMENT OF PATIENT CARE PER NURSING PROTOCOL Performed By: #### L501.080 #### [facility] Point of Care [address] [place] [address] BEDSIDE GLUCOSE Collected: 09/08/2017 Status: F Source: [place] 8:00 AM [facility] REPOSITORY TYPE CODE TESTS RESULT OUT OF REFERENCE UNITS RANGE LAB L501.080 70-110 mg/dL High BEDSIDE GLU 168 Result Comment: MANAGEMENT OF PATIENT CARE PER NURSING PROTOCOL Performed By: #### L501.080 #### [facility] Point of Care [address] [place] [address] BASIC METABOLIC Collected: 09/08/2017 Status: F Source: [place] PROFILE (BMP) 5:30 AM [facility] REPOSITORY TYPE CODE TESTS RESULT OUT [...] GAP 7 Performed By: #### L500.2500 #### [facility] [place], [address] CBC W/DIFF, AUTOMATED Collected: 09/08/2017 Status: C Source: [place] 5:30 AM [facility] REPOSITORY TYPE CODE TESTS RESULT OUT [...] as: October Performed By: #### L100.0100 #### [facility] [address] [facility] [place], [address] BEDSIDE GLUCOSE Collected: 09/07/2017 Status: F Source: [place] 8:53 PM [facility] REPOSITORY TYPE CODE TESTS RESULT OUT OF REFERENCE UNITS RANGE LAB L501.080 70-110 mg/dL High BEDSIDE GLU 148 Result Comment: MANAGEMENT OF PATIENT CARE PER NURSING PROTOCOL Performed By: #### L501.080 #### [facility] Point of Care [address] [place] [address] HISTORY AND PHYSICAL Observed: 09/07/2017 Status: F Source: [place] EXAM 8:24 PM [facility] REPOSITORY [facility] Medical Records Department [address] [place] [address] History and Physical 09/07/172004 MR#: [id number] Acct: [id number] Name: DEL BARRIOS Rep #: [id number] : 1960 57 From: Arnie Reese MD PCP: OUT OF TOWN DOCTOR Status: ADM IN Location: [place] [id number] Problem List (1) Diabetes mellitus Status: Chronic [...] daily, Senna/colace 2 tablets BID, Dulcolax 10MG FL daily PRN. * Pneumonia vaccination - Administer [...] BEDSIDE GLUCOSE Collected: 09/07/2017 Status: F Source: [place] 4:27 PM [facility] REPOSITORY TYPE CODE TESTS RESULT OUT OF REFERENCE UNITS RANGE LAB L501.080 70-110 mg/dL High BEDSIDE GLU 136 Result Comment: MANAGEMENT OF PATIENT CARE PER NURSING PROTOCOL Performed By: #### L501.080 #### [facility] Point of Care [address] [facility] [place] [address] DISCHARGE SUMMARY Observed: 09/07/2017 Status: F Source: [place] 4:04 PM [facility] REPOSITORY [facility] Medical Records Department [address] [place] [address] Discharge Summary 09/07/17 1554 MR#: [id number] Acct: [id number] Name: DEL BARRIOS Rep #: [id number] : 1960 57 From: Addis Barbour MD PCP: OUT OF TOWN DOCTOR Status: ADM IN Y Location: [place] [address]1 Discharge Date and Diagnosis - Problem List [...] Course and Treatment Consultations 09/01/17 13:43 Consult: Onc/Wound/driller multiple spindle Routine Comment: Operations: None Summary of Care [...] line in place for IV antibiotics at TCU. Start in a stable condition. Home Medications: [...] PO DAILY 01/08/17 Nebivolol HCl [Bystolic (Beta Akira)] 10 mg PO DAILY 01/08/17 Omeprazole [Prilosec] 40 mg PO DAILY 01/08/17 Acetaminophen [Tylenol Tablet] 650 mg PO Q6H PRN PRN tablet 09/07/17 Clopidogrel Bisulfate [Plavix] 75 mg PO DAILY tablet 09/07/17 Gabapentin [Neurontin] 1,600 mg PO QHS tablet 09/07/17 Hydrocodone Bitart/Apap 5-325 [[place] 5/325] 1 - 2 tab PO Q4H PRN PRN #10 tab 09/07/17 Meropenem [Merrem] 500 mg IV Q8 7 Days vial 09/07/17 Following Prescrptions Were Given to Patient: Hydrocodone Bitart/Apap 5-325 [[place] 5/325] 1 - 2 tab PO Q4H PRN PRN #10 tab PRN Reason: Severe Pain () Primary Care Physician: Prem Doctor,Out of [Primary Care Provider] - Within 2 Weeks Medical Necessity - Tobacco Use Smoking Status: Former smoker Tobacco Use: Non-smoker Meaningful Use Info Meaningful Use Diagnoses (Choose all that apply): None applicable Code Visit Inpatient E AND M: 29987 Disch Hosp 09/07/17 1604 <Electronically signed by Addis Barbour MD> Date Addis Barbour MD Cosigner Signature (if applicable): Date CC: Addis Barbour MD; OUT OF TOWN DOCTOR Signed TRANSFER TO EXTENDED Observed: 09/07/2017 Status: F Source: [facility] 3:54 PM [facility] REPOSITORY [facility] Medical Records Department [address] [place] [address] Transfer to Extended Care MR#: [id number] Acct: [id number] Name: DEL BARRIOS Rep #: [id number] : 1960 57 From: Addis Barbour MD [facility] Status: ADM IN DEL BARRIOS (Patient) (Health Ins. Claim No.) (Day of Discharge to Facility) Certification of patient admission REQUIRED AT TIME OF ADMISSION. I CERTIFY THAT POST-HOSPITAL ECF SERVICES ARE REQUIRED TO BE GIVEN ON AN IN-PATIENT BASIS BECAUSE OF THE ABOVE NAMED PATIENT'S NEED FOR FDC CARE ON A CONTINUING BASIS FOR THE CONDITION(S) FOR WHICH HE/SHE WAS RECEIVING IN-PATIENT HOSPITAL SERVICES PRIOR TO HIS/HER TRANSFER TO THE F. 09/07/17 1554 <Electronically signed by Addis Barbour [...] - Follow Up Care Primary Care Physician: Prem Lozano,Out of [Primary Care Provider] - Within 2 Weeks 09/07/17 1554 <Electronically signed by Addis Barbour MD> Date Addis Barbour MD CC: Rachele Lux DPM; OUT OF TOWN DOCTOR; Dale Daigle MD Signed BEDSIDE GLUCOSE Collected: 09/07/2017 Status: F Source: [place] 11:54 AM [facility] REPOSITORY TYPE CODE TESTS RESULT OUT OF REFERENCE UNITS RANGE LAB L501.080 70-110 mg/dL High BEDSIDE GLU 215 Result Comment: MANAGEMENT OF PATIENT CARE PER NURSING PROTOCOL Performed By: #### L501.080 #### [facility] Point of Care [address] [place] [address] BEDSIDE GLUCOSE Collected: 09/07/2017 Status: F Source: [place] 8:24 AM [facility] REPOSITORY TYPE CODE TESTS RESULT OUT OF REFERENCE UNITS RANGE LAB L501.080 70-110 mg/dL High BEDSIDE GLU 170 Result Comment: MANAGEMENT OF PATIENT CARE PER NURSING PROTOCOL Performed By: #### L501.080 #### [facility] Point of Care [address] [place] [address] BEDSIDE GLUCOSE Collected: 09/06/2017 Status: F Source: [place] 9:51 PM [facility] REPOSITORY TYPE CODE TESTS RESULT OUT OF REFERENCE UNITS RANGE LAB L501.080 70-110 mg/dL High BEDSIDE GLU 142 Result Comment: MANAGEMENT OF PATIENT CARE PER NURSING PROTOCOL Performed By: #### L501.080 #### [facility] Point of Care [address] [place] [address] BEDSIDE GLUCOSE Collected: 09/06/2017 Status: F Source: [place] 5:15 PM [facility] REPOSITORY TYPE CODE TESTS RESULT OUT OF REFERENCE UNITS RANGE LAB L501.080 70-110 mg/dL High BEDSIDE GLU 193 Result Comment: MANAGEMENT OF PATIENT CARE PER NURSING PROTOCOL Performed By: #### L501.080 #### [facility] Point of Care [address] [place] [address] BEDSIDE GLUCOSE Collected: 09/06/2017 Status: F Source: [place] 12:23 PM [facility] REPOSITORY TYPE CODE TESTS RESULT OUT OF REFERENCE UNITS RANGE LAB L501.080 70-110 mg/dL High BEDSIDE GLU 234 Result Comment: MANAGEMENT OF PATIENT CARE PER NURSING PROTOCOL Performed By: #### L501.080 #### [facility] Point of Care [address] [place] [address] BEDSIDE GLUCOSE Collected: 09/06/2017 Status: F Source: [place] 7:40 AM [facility] REPOSITORY TYPE CODE TESTS RESULT OUT OF REFERENCE UNITS RANGE LAB L501.080 70-110 mg/dL High BEDSIDE GLU 163 Result Comment: MANAGEMENT OF PATIENT CARE PER NURSING PROTOCOL Performed By: #### L501.080 #### [facility] Point of Care [address] [place] [address] BEDSIDE GLUCOSE Collected: 09/06/2017 Status: F Source: [place] 2:17 AM [facility] REPOSITORY TYPE CODE TESTS RESULT OUT OF REFERENCE UNITS RANGE LAB L501.080 70-110 mg/dL High BEDSIDE GLU 181 Result Comment: MANAGEMENT OF PATIENT CARE PER NURSING PROTOCOL Performed By: #### L501.080 #### [facility] Point of Care [address] [place] [address] BEDSIDE GLUCOSE Collected: 09/05/2017 Status: F Source: [place] 9:55 PM [facility] REPOSITORY TYPE CODE TESTS RESULT OUT OF REFERENCE UNITS RANGE LAB L501.080 70-110 mg/dL High BEDSIDE GLU 235 Result Comment: MANAGEMENT OF PATIENT CARE PER NURSING PROTOCOL Performed By: #### L501.080 #### [facility] Point of Care [address] [place] [address] BEDSIDE GLUCOSE Collected: 09/05/2017 Status: F Source: [place] 4:11 PM [facility] REPOSITORY TYPE CODE TESTS RESULT OUT OF REFERENCE UNITS RANGE LAB L501.080 70-110 mg/dL High BEDSIDE GLU 322 Result Comment: MANAGEMENT OF PATIENT CARE PER NURSING PROTOCOL Performed By: #### L501.080 #### [facility] Point of Care [address] [place] [address] BEDSIDE GLUCOSE Collected: 09/05/2017 Status: F Source: [place] 12:10 PM [facility] REPOSITORY TYPE CODE TESTS RESULT OUT OF REFERENCE UNITS RANGE LAB L501.080 70-110 mg/dL High BEDSIDE GLU 279 Result Comment: MANAGEMENT OF PATIENT CARE PER NURSING PROTOCOL Performed By: #### L501.080 #### [facility] Point of Care [address] [place] [address] BEDSIDE GLUCOSE Collected: 09/05/2017 Status: F Source: [place] 8:18 AM [facility] REPOSITORY TYPE CODE TESTS RESULT OUT OF REFERENCE UNITS RANGE LAB L501.080 70-110 mg/dL High BEDSIDE GLU 292 Result Comment: MANAGEMENT OF PATIENT CARE PER NURSING PROTOCOL Performed By: #### L501.080 #### [facility] Point of Care [address] [place] [address] BEDSIDE GLUCOSE Collected: 09/05/2017 Status: F Source: [place] 2:45 AM [facility] REPOSITORY TYPE CODE TESTS RESULT OUT OF REFERENCE UNITS RANGE LAB L501.080 70-110 mg/dL High BEDSIDE GLU 240 Result Comment: MANAGEMENT OF PATIENT CARE PER NURSING PROTOCOL Performed By: #### L501.080 #### [facility] Point of Care [address] [place] [address] BEDSIDE GLUCOSE Collected: 09/04/2017 Status: F Source: [place] 9:01 PM [facility] REPOSITORY TYPE CODE TESTS RESULT OUT OF REFERENCE UNITS RANGE LAB L501.080 70-110 mg/dL High BEDSIDE GLU 237 Result Comment: MANAGEMENT OF PATIENT CARE PER NURSING PROTOCOL Performed By: #### L501.080 #### [facility] Point of Care [address] [place] [address] BEDSIDE GLUCOSE Collected: 09/04/2017 Status: F Source: [place] 4:26 PM [facility] REPOSITORY TYPE CODE TESTS RESULT OUT OF REFERENCE UNITS RANGE LAB L501.080 70-110 mg/dL High BEDSIDE GLU 237 Result Comment: MANAGEMENT OF PATIENT CARE PER NURSING PROTOCOL Performed By: #### L501.080 #### [facility] Point of Care [address] [place] [address] BEDSIDE GLUCOSE Collected: 09/04/2017 Status: F Source: [place] 11:37 AM [facility] REPOSITORY TYPE CODE TESTS RESULT OUT OF REFERENCE UNITS RANGE LAB L501.080 70-110 mg/dL High BEDSIDE GLU 201 Result Comment: MANAGEMENT OF PATIENT CARE PER NURSING PROTOCOL Performed By: #### L501.080 #### [facility] Point of Care [address] [place], [place] [address] BEDSIDE GLUCOSE Collected: 09/04/2017 Status: F Source: [place] 8:03 AM [facility] REPOSITORY TYPE CODE TESTS RESULT OUT OF REFERENCE UNITS RANGE LAB L501.080 70-110 mg/dL High BEDSIDE GLU 224 Result Comment: MANAGEMENT OF PATIENT CARE PER NURSING PROTOCOL Performed By: #### L501.080 #### [facility] Point of Care [address] [place] [address] BEDSIDE GLUCOSE Collected: 09/03/2017 Status: F Source: [place] 10:15 PM [facility] REPOSITORY TYPE CODE TESTS RESULT OUT OF REFERENCE UNITS RANGE LAB L501.080 70-110 mg/dL High BEDSIDE GLU 244 Result Comment: MANAGEMENT OF PATIENT CARE PER NURSING PROTOCOL Performed By: #### L501.080 #### [facility] Point of Care [address] [place] [address] BEDSIDE GLUCOSE Collected: 09/03/2017 Status: F Source: [place] 4:43 PM [facility] REPOSITORY TYPE CODE TESTS RESULT OUT OF REFERENCE UNITS RANGE LAB L501.080 70-110 mg/dL High BEDSIDE GLU 334 Result Comment: MANAGEMENT OF PATIENT CARE PER NURSING PROTOCOL Performed By: #### L501.080 #### [facility] Point of Care [address] [place] [address] BEDSIDE GLUCOSE Collected: 09/03/2017 Status: F Source: [place] 11:57 AM [facility] REPOSITORY TYPE CODE TESTS RESULT OUT OF REFERENCE UNITS RANGE LAB L501.080 70-110 mg/dL High BEDSIDE GLU 259 Result Comment: MANAGEMENT OF PATIENT CARE PER NURSING PROTOCOL Performed By: #### L501.080 #### [facility] Point of Care [address] [place] [address] BEDSIDE GLUCOSE Collected: 09/03/2017 Status: F Source: [place] 10:26 AM [facility] REPOSITORY TYPE CODE TESTS RESULT OUT OF REFERENCE UNITS RANGE LAB L501.080 70-110 mg/dL High BEDSIDE GLU 278 Result Comment: MANAGEMENT OF PATIENT CARE PER NURSING PROTOCOL Performed By: #### L501.080 #### [facility] Point [facility] [address] [place] [address] Observed: 09/03/2017 Status: F Source: [place] CULTURE, DEEP WOUND 10:00 AM [facility] REPOSITORY Order Date: 01/06/17 Comments: calcaneus bone biopsy, right Gram Stain Gram Stain No White Blood Cells No organisms seen Wound Culture No growth aerobically. Cult, Anaerobic No growth in 5 days. Performed By: #### M100.1500, M100.3880, M600.1900 #### [facility] [place], [address] AFB Observed: 09/03/2017 Status: F Source: [place] CULT/SMEAR [id number] 10:00 AM [facility] REPOSITORY Comments: calcaneus bone biopsy, right AFB Smear[facility]Fluor [facility] ORIGINAL REPORT ON FILE IN LAB CONTAINS ADDITIONAL TEST SITE INFORMATION. Smear, Acid Fast Tissue Grinding Smear: Negative AFB Cult TESTING PERFORMED AT [facility]. ORIGINAL REPORT ON FILE IN LAB CONTAINS ADDITIONAL TEST SITE INFORMATION. Culture, Acid Fast NO ACID-FAST BACILLI ISOLATED AFTER 6 WEEKS. Performed By: #### M100.1500, M100.3880, M600.0 #### [facility] [address] [place], [address] Observed: 09/03/2017 Status: F Source: [place] APPLE, FUNGUS W/ 10:00 [facility] [id number] REPOSITORY Comments: calcaneus bone biopsy, right Is this test to exclude patient from TB Isolation? N Cu,[id number] TESTING PERFORMED AT [facility]. ORIGINAL REPORT ON FILE IN LAB CONTAINS ADDITIONAL TEST SITE INFORMATION. CUF No yeast or mold isolated after [address] TESTING PERFORMED AT [facility]. ORIGINAL REPORT ON FILE IN LAB CONTAINS ADDITIONAL TEST SITE INFORMATION. Fungus Stain No yeast or mold observed. Performed By: #### M100.1500, M100.3880, M600.1900 #### [facility] [address] [place], [place], [address] BONE (FX/NONFRACTURE) Observed: 09/03/2017 Status: F Source: [place] 7:15 AM [facility] REPOSITORY Patient: DEL BARRIOS : 1960 (57/M) Acct Num: [id number] Phys: Km [facility] Unit Num: [id number] Loc: MS2 [id number] Specimen: [id number] Received: 09/03/17 - 1112 Spec Type: Bone [...] after decalcification. / SJ:charito 09/03/17 TC:5 CPT: 38102, 24019 HEADER OPERATION: Debridement heel ulcer, with bone biopsy PRE-OP DIAGNOSIS: right heel ulcer, osteomyelitis TISSUE SUBMITTED: Calcaneus bone biopsy MICROSCOPIC DESCRIPTION Slides are reviewed. MICROSCOPIC DIAGNOSIS Calcaneus bone, biopsy: Fragments of bone and dense fibroconnective tissue with reactive changes, negative for acute osteomyelitis. BRYN:charito 09/08/17 Signed Russ Moreno 09/08/17 <signature on file> Performed By: #### PBON #### [facility] [address] [place], [place], [address] BEDSIDE GLUCOSE Collected: 09/03/2017 Status: F Source: [place] 6:21 AM [facility] REPOSITORY TYPE CODE TESTS RESULT OUT OF REFERENCE UNITS RANGE LAB L501.080 70-110 mg/dL High BEDSIDE GLU 312 Result Comment: MANAGEMENT OF PATIENT CARE PER NURSING PROTOCOL Performed By: #### L501.080 #### [facility] Point of Care [address] [place], [place] [address] CBC W/DIFF, AUTOMATED Collected: 09/03/2017 Status: F Source: [place] 5:15 AM [facility] REPOSITORY TYPE CODE TESTS RESULT OUT [...] 1.35 Performed By: #### L100.0100, L500.2500 #### [facility] [address] [place], [address] BASIC METABOLIC Collected: 09/03/2017 Status: F Source: [place] PROFILE (BMP) 5:15 AM [facility] REPOSITORY TYPE CODE TESTS RESULT OUT [...] 6 Performed By: #### L100.0100, L500.2500 #### [facility] [address] [facility] [place], [place], [address] PROTHROMBIN TIME W/INR Collected: 09/03/2017 Status: F Source: [place] 5:15 AM [facility] REPOSITORY TYPE CODE TESTS RESULT OUT OF RANGE REFERENCE UNITS LAB L300.4150 11.7-14.9 SECONDS Normal PROTIME 14.5 LAB L300.4200 Normal INR 1.1 Performed By: #### L300.3900, L300.4310 #### [facility] [address] [facility] [place], [address] PARTIAL THROMBOPLAST Collected: 09/03/2017 Status: F Source: [place] TIME 5:15 AM [facility] REPOSITORY TYPE CODE TESTS RESULT OUT OF REFERENCE UNITS RANGE LAB L300.4310 24.1-36.2 Seconds High PTT 38.0 Performed By: #### L300.3900, L300.4310 #### [facility] [address] [place], [address] CALCANEUS MIN 2 VIEWS Observed: 09/03/2017 Status: F Source: [place] 1:32 AM [facility] [facility] REPOSITORY [facility] Imaging Services [address] [place] [address] Calcaneus min 2 Views MR#: [id number] Acct: [id number] Name: DEL BARRIOS Rep #: [id number] : 1960 M 57 From: Dale Allen MD PCP: OUT OF TOWN DOCTOR Status: ADM IN Study: Calcaneus min 2 Views Date of Exam: 09/03/17 Exam# [id number] Ordering Dr: Rachele Lux DPM STUDY: X-RAY [...] Rachele Lux DPM; OUT OF TOWN DOCTOR Data Systems Analyst: Signed BEDSIDE GLUCOSE Collected: 09/02/2017 Status: F Source: [place] 10:40 PM [facility] REPOSITORY TYPE CODE TESTS RESULT OUT OF REFERENCE UNITS RANGE LAB L501.080 70-110 mg/dL High BEDSIDE GLU 312 Result Comment: MANAGEMENT OF PATIENT CARE PER NURSING PROTOCOL Performed By: #### L501.080 #### [facility] Laboratory Point of Care [address] [place] [address] BEDSIDE GLUCOSE Collected: 09/02/2017 Status: F Source: [place] 5:53 PM [facility] REPOSITORY TYPE CODE TESTS RESULT OUT OF REFERENCE UNITS RANGE LAB L501.080 70-110 mg/dL High BEDSIDE GLU 387 Result Comment: MANAGEMENT OF PATIENT CARE PER NURSING PROTOCOL Performed By: #### L501.080 #### [facility] Laboratory Point of Care [address] [place] [address] BEDSIDE GLUCOSE Collected: 09/02/2017 Status: F Source: [place] 4:26 PM [facility] REPOSITORY TYPE CODE TESTS RESULT OUT OF REFERENCE UNITS RANGE LAB L501.080 70-110 mg/dL High BEDSIDE GLU 363 Result Comment: MANAGEMENT OF PATIENT CARE PER NURSING PROTOCOL Performed By: #### L501.080 #### [facility] Laboratory Point of Care [address] [place] [address] BEDSIDE GLUCOSE Collected: 09/02/2017 Status: F Source: [place] 12:17 PM [facility] REPOSITORY TYPE CODE TESTS RESULT OUT OF REFERENCE UNITS RANGE LAB L501.080 70-110 mg/dL High BEDSIDE GLU 401 Result Comment: MANAGEMENT OF PATIENT CARE PER NURSING PROTOCOL Performed By: #### L501.080 #### [facility] Laboratory Point of Care [address] [place] [address] CONSULTATION Observed: 09/02/2017 Status: F Source: [place] 10:03 AM [facility] REPOSITORY [facility] Medical Records Department [address] [place] [address] Consultation 09/02/17 0954 MR#: [id number] Acct: [id number] Name: DEL BARRIOS Rep #: [id number] : 1960 57 From: Dale Daigle MD PCP: OUT OF TOWN DOCTOR Status: ADM IN Y Location: MS2 [id number] Problem List (1) Ulcer of right foot [...] BEDSIDE GLUCOSE Collected: 09/02/2017 Status: F Source: [place] 8:16 AM [facility] REPOSITORY TYPE CODE TESTS RESULT OUT OF REFERENCE UNITS RANGE LAB L501.080 70-110 mg/dL High BEDSIDE GLU 406 Result Comment: MANAGEMENT OF PATIENT CARE PER NURSING PROTOCOL Performed By: #### L501.080 #### [facility] Laboratory [place] [address] CBC W/DIFF, AUTOMATED Collected: 09/02/2017 Status: F Source: [place] 5:20 AM [facility] REPOSITORY TYPE CODE TESTS RESULT OUT [...] Lymph 1.49 Performed By: #### L100.0100 #### [facility] Laboratory [address] [facility] [place], [place], [address] BASIC METABOLIC Collected: 09/02/2017 Status: F Source: [place] PROFILE (BMP) 5:20 AM [facility] REPOSITORY TYPE CODE TESTS RESULT OUT [...] GAP 8 Performed By: #### L500.2500 #### [facility] Laboratory [address] [facility] [place], [place], [address] Observed: 09/01/2017 Status: F Source: [place] CULTURE, DEEP WOUND 11:30 PM [facility] REPOSITORY Comments: right heel infected ulcer Gram [...] <=20 S (NF) indicates non-formulary drug at [facility]. Approval by Infectious Disease Specialist [...] <=20 S (NF) indicates non-formulary drug at [facility]. Approval by Infectious Disease Specialist required before non-formulary drugs may be ordered and/or dispensed. Enterococcus avium: REACTION Ampicillin $ <=2 S Benzylpenicillin NF 0.25 S Gentamicin SYN-S S Tigecycline $$$$ <=0.12 S Streptomycin $ SYN-S S Vancomycin $ <=0.5 S (NF) indicates non-formulary drug at [facility]. Approval by Infectious Disease Specialist [...] <=20 S (NF) indicates non-formulary drug at [facility]. Approval by Infectious Disease Specialist [...] Lactamase Negative Performed By: #### M100.1500 #### [facility] Laboratory [address] [place], [address] M R STAPH AUREUS Collected: 09/01/2017 Status: F Source: [place] DNA BY PCR 11:19 PM [facility] REPOSITORY TYPE CODE TESTS RESULT OUT OF RANGE REFERENCE UNITS LAB L8200.1100 Negative Normal MRSA Negative RESULT Performed By: #### L8200.1000 #### [facility] [address] [place], [address] BEDSIDE GLUCOSE Collected: 09/01/2017 Status: F Source: [place] 10:43 PM [facility] REPOSITORY TYPE CODE TESTS RESULT OUT OF REFERENCE UNITS RANGE LAB L501.080 70-110 mg/dL High BEDSIDE GLU 361 Result Comment: MANAGEMENT OF PATIENT CARE PER NURSING PROTOCOL Performed By: #### L501.080 #### [facility] Laboratory Point of Care [address] [place] [address] FOOT MIN 3 VIEWS Observed: 09/01/2017 Status: F Source: [place] 8:47 PM [facility] REPOSITORY [facility] Imaging Services [address] [place] [address] Foot min 3 Views MR#: [id number] Acct: [id number] Name: DEL BARRIOS Rep #: [id number] : 1960 M 57 From: Kee Zuniga PCP: OUT OF TOWN DOCTOR Status: ADM IN Study: Foot min 3 Views Date of Exam: 09/01/17 Exam# [id number] Ordering Dr: Ruddy Sharma DO STUDY: X-RAY [...] Ruddy Sharma DO; OUT OF TOWN DOCTOR Data Systems Analyst: Signed HISTORY AND PHYSICAL Observed: 09/01/2017 Status: F Source: [place] EXAM 8:44 PM [facility] REPOSITORY [facility] Medical Records Department [address] [place] [address] History and Physical 09/01/172010 MR#: [id number] Acct: [id number] Name: DEL BARRIOS Rep #: [id number] : 1960 57 From: Ruddy Sharma DO PCP: OUT OF TOWN DOCTOR Status: ADM IN Y Location: [address] Problem List (1) Calcaneus pressure ulceration right foot Status: Acute History of Present Illness Date of Admission: 09/01/17 Chief Complaint: Calcaneus pressure ulceration right foot The patient is a 57 year old M who was directly admitted to [place] [address] after being seen today by podiatric medicine [...] states he sees a family practitioner in [place] but the patient was in [place]. 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 Patient was hospitalized last at [facility] in January 2017 for right foot [...] with medical treatment-patient will be admitted to [facility] 2, patient will be placed on [...] obesity Code Visit Inpatient E AND M: 14428 Init Hosp L3 09/01/172043 <Electronically signed by Ruddy Sharma DO> Date Ruddy Sharma DO Cosigner Signature: Date (if applicable) CC: Ruddy Sharma DO; OUT OF TOWN DOCTOR Signed CBC W/DIFF, AUTOMATED Collected: 09/01/2017 Status: F Source: [place] 6:08 PM [facility] REPOSITORY TYPE CODE TESTS RESULT OUT [...] 1.43 Performed By: #### L100.0100, L101.9900 #### [facility] Laboratory [address] [place], [place], [address] ERYTHROCYTE SED RATE Collected: 09/01/2017 Status: F Source: [place] 6:08 PM [facility] REPOSITORY TYPE CODE TESTS RESULT OUT OF RANGE REFERENCE UNITS LAB L102.0000 0-20 mm/hr High SED RATE 77 Performed By: #### L100.0100, L101.9900 #### [facility] [address] [place], [address] HEMOGLOBIN A1C Collected: 09/01/2017 Status: F Source: [place] 6:08 PM [facility] REPOSITORY TYPE CODE TESTS RESULT OUT OF RANGE REFERENCE UNITS LAB L501.9985 4.2-6.3 % High HGB A1C 9.2 Performed By: #### L501.9985 #### [facility] [address] [place], [address] COMPREHENSIVE METABOLIC Collected: 09/01/2017 Status: F Source: [facility] 6:08 PM [facility] REPOSITORY TYPE CODE TESTS RESULT OUT [...] 9 Performed By: #### L500.4050, L501.6710 #### [facility] [address] [facility] [place], [address] CRP Collected: 09/01/2017 Status: F Source: [place] 6:08 PM [facility] REPOSITORY TYPE CODE TESTS RESULT OUT OF RANGE REFERENCE UNITS LAB L501.6710 0.0-3.0 mg/L High 27.80 C-REACTIVE PROT Result Comment: C-Reactive Protein (CRP) provides useful information for the diagnosis, therapy and monitoring of inflammatory processes and associated diseases. For the evaluation of Relative Risk for Cardiovascular Disease, a High Sensitivity CRP (HSCRP) should be ordered. Performed By: #### L500.4050, L501.6710 #### [facility] [address] [facility] [place], [place], [address] BEDSIDE GLUCOSE Collected: 09/01/2017 Status: F Source: [place] 5:30 PM [facility] REPOSITORY TYPE CODE TESTS RESULT OUT OF REFERENCE UNITS RANGE LAB L501.080 70-110 mg/dL High BEDSIDE GLU 313 Result Comment: MANAGEMENT OF PATIENT CARE PER NURSING PROTOCOL Performed By: #### L501.080 #### [facility] Laboratory Point of Care [address] [facility] [place] [address] Observed: 09/01/2017 Status: F Source: [place] CULTURE, DEEP WOUND 1:35 PM [facility] REPOSITORY WRONG ORDERS SENT TO THE LAB-REORDERED [...] 40 S (NF) indicates non-formulary drug at [facility]. Approval by Infectious Disease Specialist [...] <=20 S (NF) indicates non-formulary drug at [facility]. Approval by Infectious Disease Specialist required before non-formulary drugs may be ordered and/or dispensed. Enterococcus spp.: REACTION Ampicillin $ 4 R Benzylpenicillin NF 16 R Ciprofloxacin $ 1 S Gentamicin SYN-S S Levofloxacin $ 2 S Tigecycline $$$$ <=0.12 S Streptomycin $ SYN-S S Vancomycin $ <=0.5 S (NF) indicates non-formulary drug at [facility]. Approval by Infectious Disease Specialist [...] <=20 S (NF) indicates non-formulary drug at [facility]. Approval by Infectious Disease Specialist required before non-formulary drugs may be ordered and/or dispensed. Cult, Anaerobic Studies have confirmed that Anaerobic Gram Positive Cocci are routinely susceptible to: Penicillin/Ampicillin, Ampicillin/Sulbactam, Piperacillin/Tazobactam, Cefoxatin, Ertapenem, Imipenem, Meropenem and Metronidazole and vary in resistance to: Clindamycin and Moxifloxacin. ORGANISM 1: Anaerobic cocci Performed By: #### M100.1500 #### [facility] Laboratory [facility] [place], [address] Observed: 09/01/2017 Status: F Source: [place] CULTURE, DEEP WOUND 1:35 PM [facility] REPOSITORY ORIGINAL ORDER INCORRECT-4 SWABS/TWO ORDERS [...] <=20 S (NF) indicates non-formulary drug at [facility]. Approval by Infectious Disease Specialist [...] <=20 S (NF) indicates non-formulary drug at [facility]. Approval by Infectious Disease Specialist required before non-formulary drugs may be ordered and/or dispensed. Enterococcus spp.: REACTION Ampicillin $ 16 R Ciprofloxacin $ 1 S Levofloxacin $ 4 I Tigecycline $$$$ <=0.12 S Vancomycin $ 1 S (NF) indicates non-formulary drug at [facility]. Approval by Infectious Disease Specialist required before non-formulary drugs may be ordered and/or dispensed. * CLSI guidelines does not recommend testing of cephalosporins. This interpretation is deduced from Beta-lactam/penicillin results. Cult, Anaerobic No anaerobic bacteria isolated. Performed By: #### M100.1500 #### [facility] [address] [place], [address] RE-EVALUTION OT Observed: 08/04/2017 Status: F Source: [place] 4:38 PM [facility] REPOSITORY [facility] Occupational Therapy [facility] [address] [place], [place] [address] Fax REEVALUATION / MEDICARE RECERTIFICATION OCCUPATIONAL THERAPY MR#: [id number] Acct: [id number] Name: DEL BARRIOS Rep #: [id number] : 1960 57 From: Meera Martinez OTR/L, CHT Referring DrVj: Rachele Lux DPM Status: REG RCR Insurance: [employer] Eval Date: MEDICAID Rachele Lux, DEBBIE, It has been my pleasure to treat DEL BARRIOS over the last 1 visits for lymphedema. Please see the progress note below for an update on the occupational therapy plan of care! Objective/Function: Pt demo a need for skilled theapy services to measure pt for custom compression garments for BLE. Today pt was measured for the custom compression garments- will send order to [facility] a DME supplier to order. Once [...] do not hesitate to contact me at [phone] by phone or if you have questions or concerns regarding this new plan of care! Sincerely, Meera Martinez, OTR/L, CHT <Electronically signed by Meera VILLA/Fred, CHT> 08/04/17 6512 CC: Rachele Lux DPM; OUT OF TOWN DOCTOR GUILHERME Signed For Medicare only, by signing this I certify the plan of care. Physicians Signature Date OFFICE VISIT (INTERNAL Observed: 08/03/2017 Status: UNK Source: [place] [facility]) 8:12 AM HOSPITALS REPOSITORY Chief Complaint here for dm followup History of Present Illness pod. dr. veda [facility] dr. juliana mcneil t stump still drains so cant wear [...] SHASHA = N; Verified Transmission to [facility] [address], [place]; Msg to Pharma cy: dx e 11.65 on insulin; Last Updated By: Edenilson Meade; 03/08/2017 1:56:10 PM Accu-Chek Loretta Plus w/Device Kit; USE DIRECTED; Therapy: 05Nov2014 to (Last Rx:05Nov2014) Requested for: 05Nov2014 Ordered Rx By: Sergo Victor; Dispense: 0 Days ; #:1 Kit; Refill: 0;For: Diabetes mellitus type 2, uncontrolled; SHASHA = N; Verified Transmission to [facility] [place] [address]; Msg to Pharmacy: dx 250.02 on insulin Accu-Chek Multiclix Lancets Miscellaneous; Uses 4 daily; Therapy: 30Mar2013 to (Last Rx:08Mar2017) Requested for: 08Mar2017 Ordered Rx By: Sergo Victor; Dispense: 0 Days ; #:4 X 102 Miscellaneous Box; Refill: 3;For: Diabetes mellitus type 2, uncontrolled; SHASHA = N; Verified Transmission to [address], ; Last Updated By: Edenilson Meaed; 03/08/2017 1:56:41 PM Accu-Chek Softclix Lancets Miscellaneous; use 4 times a day to check sugar; Therapy: 25Gah4910 to (Last Rx:17Bsv4039) Requested for: 40Hrf4117 Ordered Rx By: Sergo Victor; Dispense: 0 Days ; #:4 X 100 Miscellaneous Box; Refill: 3;For: Diabetes mellitus type 2, uncontrolled; SHASHA = N; Verified Transmission to [address]; Last Updated By: Edenilson Meade; 01/18/2017 7:03:11 PM Atorvastatin Calcium 10 MG Oral Tablet; Take 1 tablet daily; Therapy: 71Umh7266 to (Last Rx:08Mar2017) Requested for: 08Mar2017 Ordered Rx By: Sergo Victor; Dispense: 0 Days ; #:90 Tablet; Refill: 3;For: Diabetes mellitus type 2, uncontrolled; SHASHA = N; Verified Transmission to [address], ; Last Updated By: Edenilson Hua; 03/08/2017 3:18:08 PM BD Pen Needle Mini U/F 31G X 5 MM Miscellaneous; use 3 daily; Therapy: 00Xhq4561 to (Last Rx:27Nsf6634) Requested for: 20Qob1459 Ordered Rx By: Sergo Victor; Dispense: 0 Days ; #:3 X 100 Miscellaneous Box; Refill: 3;For: Diabetes mellitus type 2, uncontrolled; SHASHA = N; Verified Transmission to [address]; Last Updated By: Edenilson Meade; 01/18/2017 11:36:07 AM Gabapentin 600 MG Oral Tablet; Take 1 tablet daily; Therapy: 08Mar2017 to (Evaluate:04Sep2017) Requested for: 08Mar2017; Last Rx:08Mar2017 Ordered Rx By: Sergo Victor; Dispense: 90 Days ; #:90 Tablet; Refill: 1;For: Diabetes mellitus type 2, uncontrolled; SHASHA = N; Verified Transmission to [address], ; Last Updated By: Edenilson Franklin; 03/08/2017 2:29:22 PM Gabapentin 800 MG Oral Tablet; TAKE 2 TABLET Bedtime; Therapy: 76Qvi8009 to (Evaluate:04Sep2017) Requested for: 08Mar2017; Last Rx:08Mar2017 Ordered Rx By: Sergo Victor; Dispense: 90 Days ; #:180 Tablet; Refill: 1;For: Diabetes mellitus type 2, uncontrolled; SHASHA = N; Verified Transmission to [address], ; Last Updated By: Edenilson Garduno; 03/08/2017 1:58:02 PM HumuLIN R U-500 KwikPen 500 UNIT/ML Subcutaneous Solution Pen-injector; 145 units am, 95 units lunch,80 units pre-evening meal; Therapy: 18Jan2017 to (Last Rx:06May2017) Requested for: 06May2017 Ordered Rx By: Sergo Victor; Dispense: 0 Days ; #:11 X 3 ML Pen (2 Pens); Refill: 3;For: Diabetes mellitus type 2, uncontrolled; SHASHA = N; Verified Transmission to [address]; Last Upd ated By: Edenilson Meade; 05/06/2017 4:08:21 PM Eliquis 2.5 MG Oral Tablet; Take 1 tablet twice daily; Therapy: 07Mar2015 to (Evaluate:98Ncx4269) Requested for: 71Wuy4831; Last Rx:55Pvz0388 Ordered Rx By: Sergo Victor; Dispense: 30 Days ; #:60 Tablet; Refill: 5;For: Health Maintenance; SHASHA = N; Verified Transmission to [address]; Last Updated By: [employer]; 01/18/2017 11:34:30 AM Omeprazole 40 MG Oral Capsule Delayed Release; TAKE 1 CAPSULE Daily; Therapy: 38Mop5029 to (Evaluate:81Nxu5059) Requested for: 08Mar2017; Last Rx:08Mar2017 Ordered Rx By: Sergo Victor; Dispense: 90 Days ; #:90 Capsule Delayed Release; Refill: 3;For: Health Maintenance; SHASHA = N; Verified Transmission to [address]; Last Updated By: Deshaun [employer]; 03/08/2017 3:16:41 PM Vitamin D (Ergocalciferol) 32391 UNIT Oral Capsule; TAKE ONE CAPSULE BY MOUTH EVERY WEEK; Therapy: 07Apr2015 to (Evaluate:18Nov2017) Requested for: 60Rns8156; Last Rx:03Jun2017 Ordered Rx By: Sergo Victor; Dispense: 84 Days ; #:12 Capsule; Refill: 1;For: Health Maintenance; SHASHA = N; Verified Transmission to [address]; Last Updated By: [employer]; 2017 2:45:12 PM Bystolic 10 MG Oral Tablet; Take 1 tablet daily; Therapy: 02Sol6239 to (Evaluate:54Dqt4749) Requested for: 08Mar2017; Last Rx:08Mar2017 Ordered Rx By: Sergo Victor; Dispense: 90 Days ; #:90 Tablet; Refill: 3;For: HTN (hypertension); SHASHA = N; Verified Transmission to [address]; Last Updated By: [employer]; 03/08/2017 3:16:44 PM Losartan Potassium 50 MG Oral Tablet; TAKE 1 TABLET DAILY; Therapy: 47Vtd2040 to (Evaluate:08Fhp6280) Requested for: 08Mar2017; Last Rx:08Mar2017 Ordered Rx By: Sergo Victor; Dispense: 90 Days ; #:90 Tablet; Refill: 3;For: HTN (hypertension); SHASHA = N; Verified Transmission to [facility] [address]; Last Updated By: Edenilson Meade; 03/08/2017 3:16:43 PM Brimonidine Tartrate 0.2 % Ophthalmic Solution; Therapy: 25Nov2014 to Recorded Dispense: 30 Days ; #:5 SOLN; Refill: 0; SHASHA = N; Record; Last Updated By: Srego Victor; 05/28/2015 10:31:19 AM Dorzolamide HCl-Timolol Mal 22.3-6.8 MG/ML Ophthalmic Solution; Therapy: 26Dec2013 to Recorded Rx By: DELONTE,; Dispense: 25 [...] 03/26/2016 3:55:28 PM Vitals Vital Signs Recorded: 82Wno7657 09:41AM Jdvgycmgwdb14.9 F, Temporal Heart Rate78 Jiarfjsc951, Sitting Qkiqochsz92, Sitting O2 Dmzxakcimv25, RA Physical Exam in a wheel chair [...] uncontrolled; SHASHA = N; Verified Transmission to [facility]; Last Updated By: Lucy Meade; 08/02/2017 10:08:38 AM Unlinked Stop: Fluticasone Propionate 50 MCG/ACT Nasal Suspension Dispense: 30 Days ; #:16 SUSP; Refill: 0; SHASHA = N; Record; Last Updated By: Sergo Victor; 08/02/2017 9:59:04 AM Basic Metabolic Panel; Source:Blood (D); Status:Resulted - Requires Verification; Done: 07Jun2141 12:00AM Due:47Omj4646;Ordered; For:Diabetes mellitus type 2, uncontrolled; Ordered By:Sergo Victor; Hemoglobin A1C; Source:Blood (D); Status:Resulted - Requires Verification; Done: 07Jun2141 12:00AM Due:19Pyg1217;Ordered; For:Diabetes mellitus type 2, uncontrolled; Ordered By:Sergo Victor; Lipid Panel; Source:Blood (D); Status:Resulted - Requires Verification; Done: 07Jun2141 12:00AM Due:18Gve0619;Ordered; For:Diabetes mellitus type 2, uncontrolled; Ordered By:Sergo [...] times a day to check sugar; Therapy: 83Hja3616 to (Last Rx:43Kin6398) Requested for: 74Okl5693 Ordered Atorvastatin Calcium 10 MG Oral Tablet; Take 1 tablet daily; Therapy: 10Wvs1818 to (Last Rx:08Mar2017) Requested for: 08Mar2017 Ordered BD Pen Needle Mini U/F 31G X 5 MM Miscellaneous; use 3 daily; Therapy: 14Tit7089 to (Last Rx:33Jqw4926) Requested for: 18Jan2017 Ordered Brimonidine Tartrate 0.2 % Ophthalmic Solution; Therapy: 25Nov2014 to Recorded Bystolic 10 MG Oral Tablet; Take 1 tablet daily; Therapy: 85Uss7426 to (Evaluate:57Khh1032) Requested for: 08Mar2017; Last Rx:08Mar2017 Ordered Dorzolamide HCl-Timolol Mal 22.3-6.8 MG/ML Ophthalmic Solution; Therapy: 68Tzo8796 to Recorded Doxycycline Monohydrate 100 MG Oral Capsule; TAKE 1 CAPSULE TWICE A DAY; Therapy: 11Sep2016 to Recorded Eliquis 2.5 MG Oral Tablet; Take 1 tablet twice daily; Therapy: 07Mar2015 to (Evaluate:69Etu9211) Requested for: 18Jan2017; Last Rx:18Jan2017 Ordered Gabapentin 600 MG Oral Tablet; Take 1 tablet daily; Therapy: 08Mar2017 to (Evaluate:04Sep2017) Requested for: 08Mar2017; Last Rx:08Mar2017 Ordered Gabapentin 800 MG Oral Tablet; TAKE 2 TABLET Bedtime; Therapy: 00Srs1166 to (Evaluate:04Sep2017) Requested for: 08Mar2017; Last Rx:08Mar2017 Ordered HumuLIN R U-500 KwikPen 500 UNIT/ML Subcutaneous Solution Pen-injector; 145 units am, 95 units lunch,80 units pre-evening meal; Therapy: 63Kny1384 to (Last Rx:06May2017) Requested for: 06May2017 Ordered Latanoprost 0.005 % Ophthalmic Solution; Therapy: 18Jun2015 to Recorded Losartan Potassium 50 MG Oral Tablet; TAKE 1 TABLET DAILY; Therapy: 42Mgu9155 to (Evaluate:40Kbw6870) Requested for: 08Mar2017; Last Rx:08Mar2017 Ordered NovoLOG FlexPen 100 UNIT/ML Subcutaneous Solution Pen-injector; INJECT 60 UNIT Daily; Therapy: 14Bnq4414 to (Last Rx:92Oyc3919) Requested for: 89Rcc6170 Ordered Omeprazole 40 MG Oral Capsule Delayed Release; TAKE 1 CAPSULE Daily; Therapy: 50Mba0796 to (Evaluate:91Qjw5462) Requested for: 08Mar2017; Last Rx:08Mar2017 Ordered Vitamin D (Ergocalciferol) 82319 UNIT Oral Capsule; TAKE ONE CAPSULE BY MOUTH EVERY WEEK; Therapy: 13Mdu0701 to (Evaluate:73Ajg7976) Requested for: 59Bug3396; Last Rx:23Man0260 Ordered Signatures Electronically signed by : Sergo Victor MD; Aug 03 2017 8:12AM EST (Author) BASIC METABOLIC PANEL Collected: 08/02/2017 Status: F Source: [place] 10:30 AM HOSPITALS REPOSITORY Order Comment: PATIENT [...] CALCIUM 8.8 Performed By: #### BMP #### [facility] [address] [place] [address] LIPID PANEL (CORONARY Collected: 08/02/2017 Status: F [...] Metamizole dosing. Performed By: #### LIPID #### [facility] [address] [place] [address] HEMOGLOBIN A1C Collected: 08/02/2017 Status: F Source: [place] 10:30 AM HOSPITALS REPOSITORY Order Comment: PATIENT [...] 13-18 <7.5 7-12 <8.0 0- 6 7.5-8.5 [employer]. Diabetes Care 33(S1), Jun 2009. LAB ESAVG(LOINC) MG/DL EST.AVG.GLUCOSE 214 Performed By: #### HBA1E #### [facility] [address] [place] [address] LOWER EXT/NO JT/W/O Observed: 07/29/2017 Status: F Source: [place] 12:33 PM [facility] REPOSITORY [facility] Imaging Services [address] [place] [address] Lower Ext/No Jt/w/o MR#: [id number] Acct: [id number] Name: DEL BARRIOS Rep #: [id number] : 1960 M 57 From: Reinaldo Azevedo MD PCP: OUT OF TOWN DOCTOR Status: REG CLI Study: Lower Ext/No Jt/w/o Date of Exam: 07/29/17 Exam# [id number] Ordering Dr: Rachele Lux DPTrupti STUDY: MRI [...] Rachele Lux DPM; OUT OF TOWN DOCTOR Data Systems Analyst: Signed CBC-COMPLETE BLOOD CNT Collected: 07/21/2017 Status: F Source: [place] NO DIFF 12:09 PM [facility] REPOSITORY TYPE CODE TESTS RESULT OUT [...] 10.6 Performed By: #### L100.0500, L101.9900 #### [facility] Laboratory [address] [place], [place], [address] ERYTHROCYTE SED RATE Collected: 07/21/2017 Status: F Source: [place] 12:09 PM [facility] REPOSITORY TYPE CODE TESTS RESULT OUT OF RANGE REFERENCE UNITS LAB L102.0000 0-20 mm/hr High SED RATE 57 Performed By: #### L100.0500, L101.9900 #### [facility] Laboratory [address] [place], [place], [address] BASIC METABOLIC Collected: 07/21/2017 Status: F Source: [place] PROFILE (BMP) 12:09 PM [facility] REPOSITORY TYPE CODE TESTS RESULT OUT [...] 7 Performed By: #### L500.2500, L501.6710 #### [facility] [address] [facility] [place], [address] CRP Collected: 07/21/2017 Status: F Source: [place] 12:09 PM [facility] REPOSITORY TYPE CODE TESTS RESULT OUT OF RANGE REFERENCE UNITS LAB L501.6710 0.0-3.0 mg/L High 38.00 C-REACTIVE PROT Result Comment: C-Reactive Protein (CRP) provides useful information for the diagnosis, therapy and monitoring of inflammatory processes and associated diseases. For the evaluation of Relative Risk for Cardiovascular Disease, a High Sensitivity CRP (HSCRP) should be ordered. Performed By: #### L500.2500, L501.6710 #### [facility] [address] [facility] [place], [address] FOOT MIN 3 VIEWS Observed: 07/21/2017 Status: F Source: [place] 11:38 AM [facility] REPOSITORY [facility] Imaging Services [address] [place] [address] Foot min 3 Views MR#: [id number] Acct: [id number] Name: DEL BARRIOS Rep #: [id number] : 1960 M 57 From: Kevin Garcia MD PCP: OUT OF TOWN DOCTOR Status: REG RCR Study: Foot min 3 Views Date of Exam: 07/21/17 Exam# [id number] Ordering Dr: Rachele Lux DPM STUDY: X-RAY [...] Rachele Lux DPM; OUT OF TOWN DOCTOR Data Systems Analyst: Signed Observed: 07/21/2017 Status: F Source: [place] ACID FAST BACT 12:00 [facility] CULT/SM REPOSITORY AFB Smear/Fluor TESTING PERFORMED AT [facility]. ORIGINAL REPORT ON FILE IN LAB CONTAINS ADDITIONAL TEST SITE INFORMATION. Smear, Acid Fast Tissue Grinding Smear: Negative AF[employer] Cult TESTING PERFORMED AT [facility]. ORIGINAL REPORT ON FILE IN LAB CONTAINS ADDITIONAL TEST SITE INFORMATION. Culture, Acid Fast NO ACID-FAST BACILLI ISOLATED AFTER 6 WEEKS. Performed By: #### M300.1000 #### [facility] [address] [place], [address] Observed: 07/21/2017 Status: F Source: [place] APPLE, FUNGUS 8482 12:00 [facility] REPOSITORY Cu,[id number] TESTING PERFORMED AT [facility]. ORIGINAL REPORT ON FILE IN LAB CONTAINS ADDITIONAL TEST SITE INFORMATION. CUF No yeast or mold isolated after 4 weeks. Performed By: #### M600.2000 #### [facility] [address] [place], [address] OT GENERAL EVALUATION Observed: 07/20/2017 Status: F Source: [place] 9:56 AM [facility] REPOSITORY [facility] Occupational Therapy [facility] [address] [place], [place] [address] Fax REHABILITATION SERVICES INITIAL EVALUATION MR#: [id number] Acct: [id number] Name: DEL BARRIOS Rep #: [id number] : 1960 57 From: Meera VILLA/Fred, HARRYT Referring Dr.: Rachele Lux DPM Status: REG RCR Insurance: ANTH MEDICARE [employer] Eval Date: MEDICAID Patient's Visit Information DEL BARRIOS is a 57 year old M, referred to Occupational Therapy by Rachele Lux DPM,JFMARIBELL, with a diagnosis of lymphedema. Date of Evaluation: 07/16/17 Occupational Therapist: Meera Martinez, ALLEN/Fred, CHT - Subjective Subjective: Pt states he was dx with Lymphedema about a two years ago. He was undergoing wrapping to bilateral LE for one year. pt states he has not been wrapping for about one year and started going to the wound center in [place] in 2016 and started wrapping to LE [...] ease pts transportation difficulties. Will submit to [facility] for insurance approval for custom compression garments. TEXT: Thank you for the opportunity to evaluate your patient. For Medicare and Medicare HMO plans, please review the plan of care and approve it. It will need to be FAXED BACK to us at [phone] for Medicare purposes. Please let me know if there are questions or concerns regarding this plan of care. Physician Signature: Date: <Electronically signed by Meera VILLA/Fred, CHT> 07/20/17 0956 CC: Rachele Lux DPM; OUT OF TOWN DOCTOR MK Signed For Medicare only, by signing this I certify the plan of care. Physicians Signature Date Observed: 07/15/2017 Status: F Source: [place] CULTURE, DEEP WOUND 11:15 AM [facility] REPOSITORY Comments: DFU RIGHT FOOT METATARSAL MACERATION [...] >=320 R (NF) indicates non-formulary drug at [facility]. Approval by Infectious Disease Specialist [...] <=20 S (NF) indicates non-formulary drug at [facility]. Approval by Infectious Disease Specialist [...] <=20 S (NF) indicates non-formulary drug at [facility]. Approval by Infectious Disease Specialist required before non-formulary drugs may be ordered and/or dispensed. Cult, Anaerobic No anaerobic bacteria isolated. Performed By: #### M100.1500 #### [facility] [address] [place], [address] CBC W/DIFF, AUTOMATED Collected: 07/08/2017 Status: F Source: [place] 12:39 PM [facility] REPOSITORY TYPE CODE TESTS RESULT OUT [...] Lymph 1.21 Performed By: #### L100.0100 #### [facility] [address] [place], [address] PROTEIN+CREATININE Collected: Status: F Source: [place] RATIO,URINE 07/08/2017 12:39 PM [facility] REPOSITORY TYPE CODE TESTS RESULT OUT OF RANGE REFERENCE UNITS LAB L501.1200 NO RANGE EST. mg/dL Normal UR CREAT 91.90 LAB L501.1930 <11.9 mg/dL High 228.9 PROTEIN,UR.R AN. LAB L501.1940 0-200 mg/g CRE High PROT:CRE 2491 RATIO Performed By: #### L501.0900 #### [facility] [address] [place], [place], [address] RENAL PROFILE Collected: 07/08/2017 Status: F Source: [place] 12:39 PM [facility] REPOSITORY TYPE CODE TESTS RESULT OUT [...] CO2 28.0 Performed By: #### L500.3600 #### [facility] [address] [place], [address] ALLERGIES ALLERGIES DATE TYPE / CODE NAME / CODE REACTION SEVERITY SOURCE 12/13/2017 Drug metronidazole/F0060 Itching Unknown [place] Allergy/416 20732(RXNORM) Community 068647([facility] ED CT) Repository 12/13/2017 Drug bee venom protein Swelling Unknown [place] Allergy/416 (honey Community 469025([facility] bee)/[id number]([facility] ED CT) ORM) Repository 01/16/2016 DRUG METRONIDAZOLE OTHER: SEE C [facility] INGREDI/[address] [place] 843351(SN Repository ED CT) 01/28/2014 Drug CLAUDE INHIBITORS OTHER: SEE C [facility] Class/39557 [address] [place] 1003(SNOMED Repository CT) 07/24/2013 Environ/420 BEES RASH [facility] 300305([facility] [address] [place] ED CT) Repository ENCOUNTERS ENCOUNTERS ADMIT/DISCHARGE ACCOUNT ADMITTING ENCOUNTER LOCATION SOURCE NUMBER CLASS 07/05/2018 [id number] Ambulatory [facility] ing:[place] Repository 06/29/2018 [id number] Ambulatory [facility] ing:POLAB3 Repository 06/21/2018/06/22/19 [id number] Ambulatory [address] Repository 06/20/2018 [id number] [facility] 06/17/2018 [id number] Ambulatory [facility] [place] 06/17/2018 [id number] Ambulatory BMSBuilding:[facility] Repository 06/15/2018 [id number] Ambulatory BMSBuilding:[facility] Repository 06/08/2018 [id number] Ambulatory BMSBuilding:[facility] Repository 06/03/2018/06/06/20 [id number] Ambulatory [address] HospitalBuild Hospital ing: Repository 06/02/2018 [id number] Ambulatory BMSBuilding:[facility] Repository 05/26/2018 [id number] Ambulatory BMSBuilding:[facility] Repository 05/18/2018 [id number] Ambulatory BMSBuilding:[facility] Repository 05/17/2018 [id number] Ambulatory [facility] [place] 05/17/2018 [id number] Ambulatory BMSBuilding:[facility] Repository 05/16/2018 [id number] Ambulatory BMSBuilding:Ray [place] Repository 05/12/2018/05/17/20 [id number] Ambulatory [address] Repository 05/11/2018 [id number] Ambulatory BMSBuilding:[place] [place] 05/06/2018/05/06/20 [id number] [address] ing: Repository 05/05/2018 [id number] Ambulatory BMSBuilding:[facility] Repository 05/02/2018/05/03/20 [id number] Ambulatory [address] Repository 04/27/2018 [id number] Ambulatory BMSBuilding:[facility] Repository 04/26/2018 [id number] Ambulatory BMSBuilding:Ray [place] [facility] Repository 04/20/2018 [id number] Ambulatory BMSBuilding:[facility] Repository 04/18/2018 [id number] Ambulatory BMSBuilding:Ray [facility] Repository 04/14/2018 [id number] Ambulatory BMSBuilding:[facility] Repository 04/13/2018 [id number] Ambulatory BMSBuilding:[facility] Repository 04/12/2018 [id number] Ambulatory BMSBuilding:Ray Kaisre [facility].CF[facility] Hospital Repository 04/08/2018/04/13/20 [id number] Ambulatory [address] Repository 04/07/2018 [id number] Ambulatory BMSBuilding:[facility] Repository 04/06/2018 [id number] Ambulatory BMSBuilding:[facility] Repository 04/06/2018/04/06/20 [id number] Ambulatory [address] HospitalBuild Hospital ing:[place] Repository 04/04/2018 [id number] Ambulatory BMSBuilding:Ray [place] [facility] Repository 03/31/2018/03/31/20 [id number] [address] Hospital ing:[place] Repository 03/30/2018 [id number] Ambulatory BMSBuilding:[facility] Repository 03/25/2018/04/11/20 [id number] Ambulatory [address] Repository 03/22/2018 [id number] Ambulatory BMSBuilding:Ray [facility] Repository 03/17/2018 [id number] Ambulatory BMSBuilding:[facility] Repository 03/16/2018 [id number] Ambulatory BMSBuilding:[facility] Repository 03/14/2018 [id number] Ambulatory BMSBuilding:Ray [facility] Repository 03/10/2018 [id number] Ambulatory BMSBuilding:[facility] Repository 03/09/2018 [id number] Ambulatory BMSBuilding:[facility] Repository 03/07/2018 [id number] Ambulatory BMSBuilding:Ray Kaiser [facility] Repository 03/04/2018/03/06/20 [id number] Ambulatory [address] Hospitalild Hospital ing: Repository 03/03/2018 [id number] Ambulatory BMSBuilding:[facility] Repository 03/02/2018 [id number] Ambulatory BMSBuilding:[facility] Repository 02/25/2018/02/29/20 [id number] Ambulatory [address] Repository 02/24/2018 [id number] Ambulatory BMSBuilding:W [facility] Repository 02/21/2018 [id number] Ambulatory BMSBuilding:Ray [facility] Repository 02/17/2018 [id number] Ambulatory BMSBuilding:W [facility] Repository 02/16/2018 [id number] Ambulatory BMSBuilding:W [facility] Repository 02/14/2018 [id number] Ambulatory BMSBuilding:Ray Kaiser [facility] Repository 02/10/2018/02/16/20 [id number] Ambulatory [address] Repository 02/09/2018 [id number] Ambulatory BMSBuilding:[facility] Repository 02/04/2018/02/10/20 [id number] Ambulatory [address] Repository 02/03/2018/02/05/20 [id number] Ambulatory BMSBuilding:W [address] Repository 02/03/2018/02/05/20 [id number] Ambulatory [address] HospitalBuild Hospital ing:[place] Repository 01/24/2018 [id number] Ambulatory BMSBuilding:Ray Kaiser [facility] Repository 01/20/2018/02/05/20 [id number] Ambulatory [address] HospitalBuild Hospital ing:[place] Repository 12/29/2017/01/05/20 [id number] Ambulatory [address] HospitalBuild Hospital ing:WC Repository 12/23/2017 [id number] Ambulatory BMSBuilding:W [facility] Repository 12/16/2017 [id number] Ambulatory [facility] HospitalBuild Hospital ing:LAB Repository 12/13/2017/12/14/19 [id number] Emergency [address] HospitalBuild Hospital ing:ED Repository 12/02/2017/12/05/19 [id number] Ambulatory [address] HospitalBuild Hospital ing:[place] Repository 12/02/2017 [id number] Ambulatory [facility] HospitalBuild Hospital ing:LAB.FUTUR Repository E 12/01/2017/12/05/19 [id number] Ambulatory [address] HospitalBuild Hospital ing:WC Repository 11/09/2017/11/13/19 [id number] Ambulatory [address] Repository 11/04/2017 [id number] [facility] ing:LAB Repository 11/04/2017/11/05/19 [id number] Ambulatory [place] [address] HospitalBuild Hospital ing:[place] Repository 11/03/2017/11/05/19 [id number] Ambulatory Rudy[address] HospitalBuild Hospital ing:WC Repository 10/29/2017 [id number] [facility] Hospital ing:CT Repository 10/29/2017 [id number] [facility] Hospital ing:US Repository 10/29/2017 [id number] [facility] Repository 10/20/2017 [id number] [facility] Hospital ing:POLAB3 Repository 10/14/2017 [id number] Ambulatory [facility] HospitalBuild Hospital ing:LAB.FUTUR Repository E 10/11/2017 [id number] Ambulatory [facility] [place] g:H.ELS Repository 10/01/2017 [id number] Ambulatory [facility] Hospitalild Hospital ing:POLAB3 Repository 09/15/2017 [id number] [facility] Hospital ing:WC Repository 09/14/2017/09/15/19 [id number] Ambulatory [place] HospitalBuild Hospital ing:SDC Repository 09/07/2017/09/28/19 [id number] Arnie Reese Chi Inpatient [place] [facility] Hospital ing:TCURoom: Repository POZ30Jcm: 1 09/02/2017/09/08/19 [id number] Ambulatory BMSBuilding:W [place] [facility] Repository 09/01/2017 [id number] Zachary, Ambulatory BMSBuilding:Ray Fox [facility] Repository 09/01/2017 [id number] Tere[place], Ambulatory BMSBuilding:Ray [facility] Repository 09/01/2017 [id number] Tere[place]sky, Ambulatory BMSBuilding:Ray [facility] Repository 09/01/2017 [id number] Tere[place]sky, Ambulatory BMSBuilding:Ray [facility] Repository 09/01/2017 [id number] Tereletsky, Ambulatory BMSBuilding:Ray Fox [facility] Repository 09/01/2017 [id number] Tereletsky, Ambulatory BMSBuilding:Ray [facility] Repository 09/01/2017 [id number] Tere[place]sky, Ambulatory BMSBuilding:Ray [facility] Repository 09/01/2017/09/08/19 [id number] Tereletsky, Inpatient [place] [facility] Hospital ing:JG4Nrgp: Repository [id number]: 1 09/01/2017/09/05/19 [id number] Ambulatory [facility] [address] Hospital ing:WC Repository 08/17/2017/09/05/19 [id number] Ambulatory [place]y [address] [place] [address] Hospital ing:[place] Repository 08/04/2017/08/04/19 [id number] Ambulatory [place] Hospital ing:WC Repository 07/29/2017 [id number] [facility] Hospital ing:MRI Repository 07/16/2017/07/16/19 [id number] Ambulatory [place] Rudy [address] [place] [address] HospitalBuild Hospital ing:OT Repository 07/15/2017 [id number] Ambulatory BMSBuilding:W [facility] Repository 07/08/2017 [id number] [facility] Hospital ing:LAB Repository 07/08/2017/08/04/19 [id number] Ambulatory [place] Rud[place] [address] [place] [address] Hospitalild Hospital ing:DC Repository 07/07/2017/07/07/19 [id number] Ambulatory [place] Rudy [facility] HospitalBuild Hospital ing:WC Repository PAYERS PAYERS ENCOUNTER GUARANTOR PAYER SUBSCRIBER SOURCE 07/05/2018 DEL A Primary DEL A Rudy [id number] Insurance:MEDICARE BECKETTDOB: [facility] [id number], Number: Repository [place] [address]Ydq: [id number] Date:2018-06-07 () 07/05/2018 Secondary DEL A Rudy Insurance:MEDICAIDPol BECKETTDOB: [facility] icy Number: [id number] Hospital [id number] Repository Date:2018-06-07 07/05/2018 Tertiary NOT GIVENUNK [place] Insurance:SELF PAY [facility] Number: Effective Repository Date:2018-06-07 06/29/2018 DEL A Primary DEL A Rudy [id number] Insurance:MEDICARE BECKETTDOB: [facility] [id number], Number: Repository [place] [address]Zdm: [id number] Date:2018-06-29 () 06/29/2018 Secondary DEL A Rudy Insurance:MEDICAIDPol BECKETTDOB: [facility] ic Number: [id number] Hospital [id number] Repository Date:2018-06-29 06/29/2018 Tertiary NOT GIVENUNK [place] Insurance:SELF PAY [facility] Number: Effective Repository Date:2018-06-29 06/20/2018 DEL A Primary DEL A [place] [id number] Insurance:MEDICARE BECKETTDOB: [facility] [id number], Number: Repository [place] [address]Nvm: [id number] Date:2018-06-07 () 06/20/2018 Secondary DEL A Rudy Insurance:MEDICAIDPol BECKETTDOB: [facility] icy Number: [id number] Hospital [id number] Repository Date:2018-06-07 06/20/2018 Tertiary NOT GIVENUNK [place] Insurance:SELF PAY [facility] Effective Repository Date:2018-06-20 06/17/2018 DEL A Primary DEL A [place] [id number] Insurance:MEDICARE BECKETTDOB: [facility] [id number], Number: Repository [place] [address]Cjb: [id number] Date:2018-06-07 () 06/17/2018 Secondary DEL A [place] Insurance:MEDICAIDPol BECKETTDOB: [facility] icy Number: [id number] Hospital [id number] Repository Date:2018-06-07 06/17/2018 Tertiary NOT GIVENUNK [place] Insurance:SELF PAY [facility] Number: Effective Repository Date:2018-06-17 06/17/2018 DEL A Primary DEL A [place] [id number] Insurance:MEDICARE BECKETTDOB: [facility] [id number], Number: Repository [place] [address]Ouq: [id number] Date:2018-06-07 () 06/17/2018 Secondary DEL A [place] Insurance:MEDICAIDPol BECKETTDOB: [facility] ic Number: [id number] Hospital [id number] Repository Date:2018-06-07 06/17/2018 Tertiary NOT GIVENUNK [place] Insurance:SELF PAY [facility] Number: Effective Repository Date:2018-06-17 06/15/2018 DEL A Primary DEL A [place] [id number] Insurance:MEDICARE BECKETTDOB: [facility] [id number], Number: Repository [place] [address]Zbs: [id number] Date:2018-06-07 () 06/15/2018 Secondary DEL A [place] Insurance:MEDICAIDPol BECKETTDOB: [facility] icy Number: [id number] Hospital [id number] Repository Date:2018-06-07 06/15/2018 Tertiary NOT GIVENUNK [place] Insurance:SELF PAY [facility] Number: Effective Repository Date:2018-06-15 06/08/2018 DEL A Primary DEL A [place] [id number] Insurance:MEDICARE BECKETTDOB: [facility] [id number], Number: Repository [place] [id number]: [id number] Date:2018-06-07 () 06/08/2018 Secondary DEL A Rud[place] Insurance:MEDICAIDPol BECKETTDOB: [facility] Number: [id number] Hospital [id number] Repository Date:2018-06-07 06/08/2018 Tertiary NOT GIVENUNK [place] Insurance:SELF PAY [facility] Number: Effective Repository Date:2018-06-08 2018 DEL A Primary NOT GIVENUNK [place] [id number] Insurance:SELF PAY [address], Number: Effective Repository [place] [address]Rvp: Date:2018-05-07 () 06/02/2018 DEL A Primary DEL A Rud[place] [id number] Insurance:MEDICARE BECKETTDOB: [facility] [id number], Number: Repository [place] [address]Qyy: [id number] Date:2018-06-02 () 06/02/2018 Secondary DEL A [place] Insurance:MEDICAIDPol BECKETTDOB: [facility] Number: [id number] Hospital [id number] Repository Date:2018-06-02 06/02/2018 Tertiary NOT GIVENUNK [place] Insurance:SELF PAY [facility] Number: Effective Repository Date:2018-06-02 05/26/2018 DEL A Primary DEL A [place] [id number] Insurance:MEDICARE BECKETTDOB: [facility] [id number], Number: Repository [place] [address]Cwm: [id number] Date:2018-05-18 () 05/26/2018 Secondary DEL A Rudy Insurance:MEDICAIDPol BECKETTDOB: [facility] icy Number: [id number] Hospital [id number] Repository Date:2018-05-18 05/26/2018 Tertiary NOT GIVENUNK [place] Insurance:SELF PAY [facility] Number: Effective Repository Date:2018-05-26 05/18/2018 DEL A Primary DEL A Rudy [id number] Insurance:MEDICARE BECKETTDOB: [facility] PART A [facility] [id number], Number: Repository [place] [address]Tab: [id number] Date:2018-05-18 () 05/18/2018 Secondary DEL A Rudy Insurance:MEDICAIDPol BECKETTDOB: [facility] icy Number: [id number] Hospital [id number] Repository Date:2018-05-18 05/18/2018 Tertiary NOT GIVENUNK [place] Insurance:SELF PAY [facility] Number: Effective Repository Date:2018-05-18 05/17/2018 DEL A Primary DEL A Rudy [id number] Insurance:MEDICARE BECKETTDOB: [facility] PART [facility] [id number], Number: Repository [place] [address]Sgz: [id number] Date:2018-05-17 () 05/17/2018 Secondary DEL A [place] Insurance:MEDICAIDPol BECKETTDOB: [facility] icy Number: [id number] Hospital [id number] Repository Date:2018-05-17 05/17/2018 Tertiary NOT GIVENUNK [place] Insurance:SELF PAY [facility] Number: Effective Repository Date:2018-05-17 05/17/2018 DEL A Primary NOT GIVENUNK Rudy [id number] Insurance:SELF PAY [address], Number: Effective Repository [place] [id number]: Date:2018-05-17 () 05/16/2018 DEL A Primary DEL A Rudy [id number] Insurance:MEDICARE BECKETTDOB: [facility] PART A [facility] [id number], Number: Repository [place] [address]Die: [id number] Date:2018-05-16 () 05/16/2018 Secondary DEL A [place] Insurance:MEDICAIDPol BECKETTDOB: [facility] icy Number: [id number] Hospital [id number] Repository Date:2018-05-16 05/16/2018 Tertiary NOT GIVENUNK [place] Insurance:SELF PAY [facility] Number: Effective Repository Date:2018-05-16 05/11/2018 DEL A Primary DEL A [place] [id number] Insurance:MEDICARE BECKETTDOB: [facility] PART [facility] [id number], Number: Repository [place] [address]Dli: [id number] Date:2018-05-11 () 05/11/2018 Secondary DEL A [place] Insurance:MEDICAIDPol BECKETTDOB: [facility] ic Number: [id number] Hospital [id number] Repository Date:2018-05-11 05/11/2018 Tertiary NOT GIVENUNK [place] Insurance:SELF PAY [facility] Effective Repository Date:2018-05-11 05/06/2018 DEL A Primary DEL A Rudy [id number] Insurance:MEDICARE BECKETTDOB: [facility] PART A [facility] [id number], Number: Repository [place] [address]Soo: [id number] Date:2018-04-07 () 05/06/2018 Secondary DEL A Rudy Insurance:MEDICAIDPol BECKETTDOB: [facility] icy Number: [id number] Hospital [id number] Repository Date:2018-04-07 05/06/2018 Tertiary NOT GIVENUNK [place] Insurance:SELF PAY [facility] Number: Effective Repository Date:2018-04-07 05/05/2018 DEL A Primary DEL A Rudy [id number] Insurance:MEDICARE BECKETTDOB: [facility] PART A [facility] [id number], Number: Repository [place] [address]Jda: [id number] Date:2018-04-07 () 05/05/2018 Secondary DEL A [place] Insurance:MEDICAIDPol BECKETTDOB: [facility] icy Number: [id number] Hospital [id number] Repository Date:2018-04-07 05/05/2018 Tertiary NOT GIVENUNK [place] Insurance:SELF PAY [facility] Number: Effective Repository Date:2018-05-05 04/27/2018 DEL A Primary DEL A [place] [id number] Insurance:MEDICARE BECKETTDOB: [facility] PART A [facility] [id number], Number: Repository [place] [address]Lpt: [id number] Date:2018-04-07 () 04/27/2018 Secondary DEL A [place] Insurance:MEDICAIDPol BECKETTDOB: [facility] Number: [id number] Hospital [id number] Repository Date:2018-04-07 04/27/2018 Tertiary NOT GIVENUNK [place] Insurance:SELF PAY [facility] Number: Effective Repository Date:2018-04-27 04/26/2018 DEL A Primary NOT GIVENUNK [place] [id number] Insurance:SELF PAY [address], Number: Effective Repository [place] [id number]: Date:2018-04-26 () 04/20/2018 DEL A Primary DEL A [place] [id number] Insurance:MEDICARE BECKETTDOB: [facility] PART A [facility] [id number], Number: Repository [place] [id number]: [id number] Date:2018-04-07 () 04/20/2018 Secondary DEL A [place] Insurance:MEDICAIDPol BECKETTDOB: [facility] ic Number: [id number] Hospital [id number] Repository Date:2018-04-07 04/20/2018 Tertiary NOT GIVENUNK [place] Insurance:SELF PAY [facility] Number: Effective Repository Date:2018-04-20 04/18/2018 DEL A Primary DEL A [place] [id number] Insurance:MEDICARE BECKETTDOB: [facility] PART A [facility] [id number], Number: Repository [place] [id number]: [id number] Date:2018-03-07 () 04/18/2018 Secondary DEL A [place] Insurance:MEDICAIDPol BECKETTDOB: [facility] icy Number: [id number] Hospital [id number] Repository Date:2018-03-07 04/18/2018 Tertiary NOT GIVENUNK [place] Insurance:SELF PAY [facility] Number: Effective Repository Date:2018-04-18 04/14/2018 DEL A Primary DEL A Rudy [id number] Insurance:MEDICARE BECKETTDOB: [facility] PART A [facility] [id number], Number: Repository [place] [address]Ybm: [id number] Date:2018-04-07 () 04/14/2018 Secondary DEL A [place] Insurance:MEDICAIDPol BECKETTDOB: [facility] icy Number: [id number] Hospital [id number] Repository Date:2018-04-07 04/14/2018 Tertiary NOT GIVENUNK [place] Insurance:SELF PAY [facility] Number: Effective Repository Date:2018-04-14 04/13/2018 DEL A Primary DEL A Rudy [id number] Insurance:MEDICARE BECKETTDOB: [facility] PART A [facility] [id number], Number: Repository [place] [address]Eob: [id number] Date:2018-04-07 () 04/13/2018 Secondary DEL A [place] Insurance:MEDICAIDPol BECKETTDOB: [facility] icy Number: [id number] Hospital [id number] Repository Date:2018-04-07 04/13/2018 Tertiary NOT GIVENUNK Rudy Insurance:SELF PAY [facility] Number: Effective Repository Date:2018-04-13 04/12/2018 DEL A Primary DEL A [place] [id number] Insurance:MEDICARE BECKETTDOB: [facility] PART [facility] [id number], Number: Repository [place] [address]Jnk: [id number] Date:2018-04-07 () 04/12/2018 Secondary DEL A [place] Insurance:MEDICAIDPol BECKETTDOB: [facility] icy Number: [id number] Hospital [id number] Repository Date:2018-04-07 04/12/2018 Tertiary NOT GIVENUNK [place] Insurance:SELF PAY [facility] Number: Effective Repository Date:2018-04-12 04/07/2018 DEL A Primary DEL A Rudy [id number] Insurance:MEDICARE BECKETTDOB: [facility] [id number], Number: Repository [place] [address]Aky: [id number] Date:2018-04-07 () 04/07/2018 Secondary DEL A [place] Insurance:MEDICAIDPol BECKETTDOB: [facility] icy Number: [id number] Hospital [id number] Repository Date:2018-04-07 04/07/2018 Tertiary NOT GIVENUNK [place] Insurance:SELF PAY [facility] Number: Effective Repository Date:2018-04-07 04/06/2018 DEL A Primary DEL A Rudy [id number] Insurance:MEDICARE BECKETTDOB: [facility] PART A [facility] [id number], Number: Repository [place] [address]Ujt: [id number] Date:2018-04-06 () 04/06/2018 Secondary DEL A [place] Insurance:MEDICAIDPol BECKETTDOB: [facility] icy Number: [id number] Hospital [id number] Repository Date:2018-04-06 04/06/2018 Tertiary NOT GIVENUNK [place] Insurance:SELF PAY [facility] Number: Effective Repository Date:2018-04-06 04/06/2018 DEL A Primary DEL A [place] [id number] Insurance:MEDICARE BECKETTDOB: [facility] PART A [facility] [id number], Number: Repository [place] [address]Fjq: [id number] Date:2018-03-07 () 04/06/2018 Secondary DEL A [place] Insurance:MEDICAIDPol BECKETTDOB: [facility] icy Number: [id number] Hospital [id number] Repository Date:2018-03-07 04/06/2018 Tertiary NOT GIVENUNK [place] Insurance:SELF PAY [facility] Number: Effective Repository Date:2018-03-07 04/04/2018 DEL A Primary DEL A Rudy [id number] Insurance:MEDICARE BECKETTDOB: [facility] PART A [facility] [id number], Number: Repository [place] [address]Cfi: [id number] Date:2018-04-04 () 04/04/2018 Secondary DEL A [place] Insurance:MEDICAIDPol BECKETTDOB: [facility] icy Number: [id number] Hospital [id number] Repository Date:2018-04-04 04/04/2018 Tertiary NOT GIVENUNK [place] Insurance:SELF PAY [facility] Number: Effective Repository Date:2018-04-04 03/31/2018 DEL A Primary NOT GIVENUNK [place] [id number] Insurance:SELF PAY [address], Number: Effective Repository [place] [id number]: Date:2018-02-05 () 03/30/2018 DEL A Primary DEL A Rudy [id number] Insurance:MEDICARE BECKETTDOB: [facility] PART A [facility] [id number], Number: Repository [place] [address]Yyr: [id number] Date:2018-03-30 () 03/30/2018 Secondary DEL A [place] Insurance:MEDICAIDPol BECKETTDOB: [facility] ic Number: [id number] Hospital [id number] Repository Date:2018-03-30 03/30/2018 Tertiary NOT GIVENUNK [place] Insurance:SELF PAY [facility] Number: Effective Repository Date:2018-03-30 03/22/2018 DEL A Primary NOT GIVENUNK Rudy [id number] Insurance:SELF PAY [address], Number: Effective Repository [place] [address]Qxy: Date:2018-03-22 () 03/17/2018 DEL A Primary DEL A Rudy [id number] Insurance:MEDICARE BECKETTDOB: [facility] PART A [facility] [id number], Number: Repository [place] [address]Kud: [id number] Date:2018-03-16 () 03/17/2018 Secondary DEL A [place] Insurance:MEDICAIDPol BECKETTDOB: [facility] Number: [id number] Hospital [id number] Repository Date:2018-03-16 03/17/2018 Tertiary NOT GIVENUNK [place] Insurance:SELF PAY [facility] Number: Effective Repository Date:2018-03-17 03/16/2018 DEL A Primary DEL A [place] [id number] Insurance:MEDICARE BECKETTDOB: [facility] PART A [facility] [id number], Number: Repository [place] [address]Zps: [id number] Date:2018-03-16 () 03/16/2018 Secondary DEL A Rudy Insurance:MEDICAIDPol BECKETTDOB: [facility] ic Number: [id number] Hospital [id number] Repository Date:2018-03-16 03/16/2018 Tertiary NOT GIVENUNK Rudy Insurance:SELF PAY [facility] Number: Effective Repository Date:2018-03-16 03/14/2018 DEL A Primary DEL A Rudy [id number] Insurance:MEDICARE BECKETTDOB: [facility] PART A [facility] [id number], Number: Repository [place] [address]Ffc: [id number] Date:2018-03-14 () 03/14/2018 Secondary DEL A [place] Insurance:MEDICAIDPol BECKETTDOB: [facility] icy Number: [id number] Hospital [id number] Repository Date:2018-03-14 03/14/2018 Tertiary NOT GIVENUNK [place] Insurance:SELF PAY [facility] Number: Effective Repository Date:2018-03-14 03/10/2018 DEL A Primary DEL A Rudy [id number] Insurance:MEDICARE BECKETTDOB: [facility] PART A [facility] [id number], Number: Repository [place] [address]Tec: [id number] Date:2018-03-10 () 03/10/2018 Secondary DEL A Urdy Insurance:MEDICAIDPol BECKETTDOB: [facility] icy Number: [id number] Hospital [id number] Repository Date:2018-03-10 03/10/2018 Tertiary NOT GIVENUNK [place] Insurance:SELF PAY [facility] Number: Effective Repository Date:2018-03-10 03/09/2018 DEL A Primary DEL A [place] [id number] Insurance:MEDICARE BECKETTDOB: [facility] PART A [facility] [id number], Number: Repository [place] [address]Jnw: [id number] Date:2018-03-09 () 03/09/2018 Secondary DEL A [place] Insurance:MEDICAIDPol BECKETTDOB: [facility] icy Number: [id number] Hospital [id number] Repository Date:2018-03-09 03/09/2018 Tertiary NOT GIVENUNK Rudy Insurance:SELF PAY [facility] Number: Effective Repository Date:2018-03-09 03/07/2018 DEL A Primary DEL A [place] [id number] Insurance:MEDICARE BECKETTDOB: [facility] PART A [facility] [id number], Number: Repository [place] [address]Qfx: [id number] Date:2018-03-07 () 03/07/2018 Secondary DEL A [place] Insurance:MEDICAIDPol BECKETTDOB: [facility] icy Number: [id number] Hospital [id number] Repository Date:2018-03-07 03/07/2018 Tertiary NOT GIVENUNK [place] Insurance:SELF PAY [facility] Number: Effective Repository Date:2018-03-07 03/04/2018 DEL A Primary DEL A Rudy [id number] Insurance:MEDICARE BECKETTDOB: [facility] PART A [facility] [id number], Number: Repository [place] [address]Gpv: [id number] Date:2018-01-05 () 03/04/2018 Secondary DEL A [place] Insurance:MEDICAIDPol BECKETTDOB: [facility] icy Number: [id number] Hospital [id number] Repository Date:2017-10-06 03/04/2018 Tertiary NOT GIVENUNK [place] Insurance:SELF PAY [facility] Number: Effective Repository Date:2018-02-05 03/03/2018 DEL A Primary DEL A [place] [id number] Insurance:MEDICARE BECKETTDOB: [facility] PART A [facility] [id number], Number: Repository [place] [id number]: [id number] Date:2018-01-05 () 03/03/2018 Secondary DEL A Rud[place] Insurance:MEDICAIDPol BECKETTDOB: [facility] icy Number: [id number] Hospital [id number] Repository Date:2017-10-06 03/03/2018 Tertiary NOT GIVENUNK Rudy Insurance:SELF PAY [facility] Number: Effective Repository Date:2018-03-03 03/02/2018 DEL A Primary DEL A Rudy [id number] Insurance:MEDICARE BECKETTDOB: [facility] PART A [facility] [id number], Number: Repository [place] [id number]: [id number] Date:2018-01-05 () 03/02/2018 Secondary DEL A [place] Insurance:MEDICAIDPol BECKETTDOB: [facility] icy Number: [id number] Hospital [id number] Repository Date:2017-10-06 03/02/2018 Tertiary NOT GIVENUNK Rudy Insurance:SELF PAY [facility] Number: Effective Repository Date:2018-03-02 02/24/2018 DEL A Primary DEL A Rudy [id number] Insurance:MEDICARE BECKETTDOB: [facility] PART [facility] [id number], Number: Repository [place] [address]Dfo: [id number] Date:2018-01-05 () 02/24/2018 Secondary DEL A Rudy Insurance:MEDICAIDPol BECKETTDOB: [facility] icy Number: [id number] Hospital [id number] Repository Date:2017-10-06 02/24/2018 Tertiary NOT GIVENUNK Rudy Insurance:SELF PAY [facility] Number: Effective Repository Date:2018-02-24 02/21/2018 DEL A Primary DEL A [place] [id number] Insurance:MEDICARE BECKETTDOB: [facility] PART A [facility] [id number], Number: Repository [place] [address]Exx: [id number] Date:2018-01-05 () 02/21/2018 Secondary DEL A [place] Insurance:MEDICAIDPol BECKETTDOB: [facility] icy Number: [id number] Hospital [id number] Repository Date:2017-10-06 02/21/2018 Tertiary NOT GIVENUNK [place] Insurance:SELF PAY [facility] Number: Effective Repository Date:2018-02-21 02/17/2018 DEL A Primary DEL A Rudy [id number] Insurance:MEDICARE BECKETTDOB: [facility] PART A [facility] [id number], Number: Repository [place] [address]Dyq: [id number] Date:2018-01-05 () 02/17/2018 Secondary DEL A [place] Insurance:MEDICAIDPol BECKETTDOB: [facility] icy Number: [id number] Hospital [id number] Repository Date:2017-10-06 02/17/2018 Tertiary NOT GIVENUNK Rud[place] Insurance:SELF PAY [facility] Number: Effective Repository Date:2018-02-17 02/16/2018 DEL A Primary DEL A [place] [id number] Insurance:MEDICARE BECKETTDOB: [facility] PART A [facility] [id number], Number: Repository [place] [address]Arb: [id number] Date:2018-01-05 () 02/16/2018 Secondary DEL A [place] Insurance:MEDICAIDPol BECKETTDOB: [facility] icy Number: [id number] Hospital [id number] Repository Date:2017-10-06 02/16/2018 Tertiary NOT GIVENUNK [place] Insurance:SELF PAY [facility] Number: Effective Repository Date:2018-02-16 02/14/2018 DEL A Primary DEL A [place] [id number] Insurance:MEDICARE BECKETTDOB: [facility] PART A [facility] [id number], Number: Repository [place] [address]Ujj: [id number] Date:2018-01-05 () 02/14/2018 Secondary DEL A [place] Insurance:MEDICAIDPol BECKETTDOB: [facility] icy Number: [id number] Hospital [id number] Repository Date:2017-10-06 02/14/2018 Tertiary NOT GIVENUNK Rudy Insurance:SELF PAY [facility]: Effective Repository Date:2018-02-14 02/09/2018 DEL A Primary DEL A Rudy [id number] Insurance:MEDICARE BECKETTDOB: [facility] PART A [facility] [id number], Number: Repository [place] [address]Qfa: [id number] Date:2018-01-05 () 02/09/2018 Secondary DEL A [place] Insurance:MEDICAIDPol BECKETTDOB: [facility] icy Number: [id number] Hospital [id number] Repository Date:2017-10-06 02/09/2018 Tertiary NOT GIVENUNK [place] Insurance:SELF PAY [facility] Number: Effective Repository Date:2018-02-09 02/03/2018 DEL A Primary DEL A Rudy [id number] Insurance:MEDICARE BECKETTDOB: [facility] PART A [facility] [id number], Number: Repository [place] [address]Etw: [id number] Date:2018-01-05 () 02/03/2018 Secondary DEL A [place] Insurance:MEDICAIDPol BECKETTDOB: [facility] icy Number: [id number] Hospital [id number] Repository Date:2017-10-06 02/03/2018 Tertiary NOT GIVENUNK [place] Insurance:SELF PAY [facility] Number: Effective Repository Date:2018-02-03 02/03/2018 DEL A Primary DEL A [place] [id number] Insurance:MEDICARE BECKETTDOB: [facility] PART A [facility] [id number], Number: Repository [place] [id number]: [id number] Date:2018-01-05 () 02/03/2018 Secondary DEL A Rudy Insurance:MEDICAIDPol BECKETTDOB: [facility] icy Number: [id number] Hospital [id number] Repository Date:2017-10-06 02/03/2018 Tertiary NOT GIVENUNK [place] Insurance:SELF PAY [facility] Number: Effective Repository Date:2018-01-05 01/24/2018 DEL A Primary DEL A Rudy [id number] Insurance:MEDICARE BECKETTDOB: [facility] PART A [facility] [id number], Number: Repository [place] [address]Qqt: [id number] Date:2018-01-05 () 01/24/2018 Secondary DEL A Rduy Insurance:MEDICAIDPol BECKETTDOB: [facility] icy Number: [id number] Hospital [id number] Repository Date:2017-10-06 01/24/2018 Tertiary NOT GIVENUNK Rudy Insurance:SELF PAY [facility] Number: Effective Repository Date:2018-01-24 01/20/2018 DEL A Primary DEL A [place] [id number] Insurance:MEDICARE BECKETTDOB: [facility] PART A [facility] [id number], Number: Repository [place] [address]Tiw: [id number] Date:2017-12-05 () 01/20/2018 Secondary DEL A [place] Insurance:MEDICAIDPol BECKETTDOB: [facility] icy Number: [id number] Hospital [id number] Repository Date:2017-04-07 01/20/2018 Tertiary NOT GIVENUNK Rudy Insurance:SELF PAY [facility] Number: Effective Repository Date:2017-12-05 12/29/2017 DEL A Primary DEL A [place] [id number] Insurance:ANTHEM BECKETTDOB: [facility] MEDICARE SENIOR [id number] Number: Repository [place] [address]Mau: [id number] Date:2359-10-54NP [address] () [address], [place] [address]KH: 12/29/2017 Secondary DEL A [place] Insurance:MEDICAIDPol BECKETTDOB: Community ic Number: [id number] Hospital [id number] Repository Date:2017-10-06 12/29/2017 Tertiary NOT GIVENUNK Rduy Insurance:SELF PAY [facility] Number: Effective Repository Date:2017-12-05 12/23/2017 DEL A Primary DEL A Rudy [id number] Insurance:ANTHURIAH BARRIOSDOB: [facility] MEDICARE SENIOR [id number] Number: Repository [place] [address]Vyw: [id number] Date:6990-48-93TS [address] () [id number] [place] [address]XU: 12/23/2017 Secondary DEL A Rudy Insurance:MEDICAIDPol BECKETTDOB: [facility] ic Number: [id number] Hospital [id number] Repository Date:2017-10-06 12/23/2017 Tertiary NOT GIVENUNK Rudy Insurance:SELF PAY [facility] Number: Effective Repository Date:2017-12-23 12/16/2017 DEL A Primary DEL A Rudy [id number] Insurance:NI GROSSB: [facility] [address] [facility] MEDICARE SENIOR [id number] Number: Repository [place] [address]Ghp: [id number] Date:9652-44-51LQ [address] () [id number] [place] [address]DC: 12/16/2017 Secondary DEL A Rudy Insurance:MEDICAIDPol BECKETTDOB: [facility] Number: [id number] Hospital [id number] Repository Date:2017-12-16 12/16/2017 Tertiary NOT GIVENUNK [place] Insurance:SELF PAY [facility] Number: Effective Repository Date:2017-12-16 12/13/2017 DEL A Primary DEL A [place] [id number] Insurance:ANTHURIAH GROSSB: [facility] [address] [facility] MEDICARE SENIOR [id number] Number: Repository [place] [address]Xqo: [id number] Date:8879-12-83VF BOX () 816824QRRBNVA [place] [address]KD: 12/13/2017 Secondary DEL A Rudy Insurance:MEDICAIDPol BECKETTDOB: [facility] icy Number: [id number] Hospital [id number] Repository Date:2017-12-13 12/13/2017 Tertiary NOT GIVENUNK Rudy Insurance:SELF PAY [facility] Number: Effective Repository Date:2017-12-13 12/02/2017 DEL A Primary DEL A Rudy [id number] Insurance:ANTHEM DENISDOB: [facility] MEDICARE SENIOR [id number] Number: Repository [place] [address]Oau: [id number] Date:9947-05-50DA [address] () [id number] [place] [address]RO: 12/02/2017 Secondary DEL A Rudy Insurance:MEDICAIDPol BECKETTDOB: [facility] icy Number: [id number] Hospital [id number] Repository Date:2017-04-07 12/02/2017 Tertiary NOT GIVENUNK [place] Insurance:SELF PAY [facility] Number: Effective Repository Date:2017-11-05 12/02/2017 DEL A Primary DEL A Rudy [id number] Insurance:ANTHEM DENISDOB: [facility] [address] [facility] MEDICARE SENIOR [id number] Number: Repository [place] [address]Anx: [id number] Date:4486-29-97QG BOX () 636435YJMSOXW [place] [address]UQ: 12/02/2017 Secondary DEL A Rudy Insurance:MEDICAIDPol BECKETTDOB: [facility] icy Number: [id number] Hospital [id number] Repository Date:2017-11-15 12/02/2017 Tertiary NOT GIVENUNK Rudy Insurance:SELF PAY [facility] Effective Repository Date:2017-11-15 12/01/2017 DEL A Primary DEL A Rudy [id number] Insurance:ANTHEM BECKETTDOB: [facility] MEDICARE SENIOR [id number] Number: Repository [place] [address]Exx: [id number] Date:6825-41-28YI BOX () [address] [place] [address] 77492WP: 12/01/2017 Secondary DEL A Rudy Insurance:MEDICAIDPol BECKETTDOB: [facility] icy Number: [id number] Hospital [id number] Repository Date:2017-10-06 12/01/2017 Tertiary NOT GIVENUNK [place] Insurance:SELF PAY [facility] Number: Effective Repository Date:2017-11-05 11/04/2017 DEL A Primary DEL A [place] [id number] Insurance:ANTHEM BECKSKYDOB: [facility] MEDICARE SENIOR [id number] Number: Repository [place] [address]Dik: [id number] [phone] Date:8560-48-44DX BOX -[address] () [id number] [place] [address] 99941SC: 11/04/2017 Secondary DEL A Rudy Insurance:MEDICAIDPol BECKETTDOB: [facility] icy Number: [id number] Hospital [id number] Repository Date:2017-11-04 11/04/2017 Tertiary NOT GIVENUNK [place] Insurance:SELF PAY [facility] Number: Effective Repository Date:2017-11-04 11/04/2017 DEL A Primary DEL A [place] [id number] Insurance:ANTHEM BECKETTDOB: [facility] MEDICARE SENIOR [id number] Number: Repository [place] [address]Szv: [id number] [phone] Date:8212-27-13MY BOX -[address] () 890544BPWEPHX, [place] [address]EZ: 11/04/2017 Secondary DEL A Rudy Insurance:MEDICAIDPol BECKETTDOB: [facility] Number: [id number] Hospital [id number] Repository Date:2017-04-07 11/04/2017 Tertiary NOT GIVENUNK [place] Insurance:SELF PAY [facility] Number: Effective Repository Date:2017-09-05 11/03/2017 DEL A Primary DEL A [place] [id number] Insurance:ANTHEM DENISDOB: [facility] MEDICARE SENIOR [id number] Number: Repository [place] [address]Gdr: [id number] [phone] Date:6395-70-65UX B[address] -[address] () 520903FQOMSXV, [place] [address]RP: 11/03/2017 Secondary NOT GIVENUNK [place] Insurance:SELF PAY [facility] Number: Effective Repository Date:2017-10-06 10/29/2017 DEL A Primary DEL A Rudy [id number] Insurance:ANTHEM DENISDOB: [facility] MEDICARE SENIOR [id number] Number: Repository [place] [address]Tlx: [id number] [phone] Date:7970-16-88SY B[address] -[address] () 214660ESOEPYB, [place] [address]PQ: 10/29/2017 Secondary NOT GIVENUNK [place] Insurance:SELF PAY [facility] Number: Effective Repository Date:2017-10-01 10/29/2017 DEL A Primary DEL A Rduy [id number] Insurance:ANTHEM BECKSKYDOB: [facility] MEDICARE SENIOR [id number] Number: Repository [place] [address]Qgh: [id number] [phone] Date:7536-97-64SJ B[address] -[address] () 283674JDYNXVH, [place] [address]XZ: 10/29/2017 Secondary NOT GIVENUNK [place] Insurance:SELF PAY [facility] Number: Effective Repository Date:2017-10-20 10/29/2017 DEL A Primary DEL A Rud[place] [id number] Insurance:ANTHEM DENISDOB: [facility] MEDICARE SENIOR [id number] Number: [place]ository [place] [address]Yni: [id number] [phone] Date:8748-54-36AM B[address] -[address] () 543153REYAKME, [place] [address]TX: 10/29/2017 Secondary DEL A [place] [facility] Number: [id number] Hospital [id number] Repository Date:2017-10-14 10/29/2017 Tertiary NOT GIVENUNK [place] Insurance:SELF PAY [facility] Number: Effective Repository Date:2017-10-14 10/20/2017 DEL A Primary DEL A Rudy [id number] Insurance:ANTHURIAH BARRIOSDOB: [facility] MEDICARE SENIOR [id number] Number: Repository [place] [address]Kai: [id number] [phone] Date:4373-49-61EP B[address] -[address] () 351250SZTUHEU, [place] [address]WI: 10/20/2017 Secondary NOT GIVENUNK [place] Insurance:SELF PAY [facility] Number: Effective Repository Date:2017-10-20 10/14/2017 DEL A Primary DEL A [place] [id number] Insurance:ANTHEM BECKSKYDOB: [facility] MEDICARE SENIOR [id number] Number: Repository [place] [address]Mgb: [id number] [phone] Date:9163-56-71MO B[address] -[address] () 134356LCHTNDQ, [place] [address]WY: 10/14/2017 Secondary DEL A Rudy Insurance:MEDICAIDPol BECKETTDOB: [facility] icy Number: [id number] Hospital [id number] Repository Date:2017-10-06 10/14/2017 Tertiary NOT GIVENUNK [place] Insurance:SELF PAY [facility] Number: Effective Repository Date:2017-10-06 10/11/2017 DEL Primary DEL [facility] [id number] Insurance:ANTHEM BECKETTUNK [facility] [place] [address] MEDICARE ALL ADV Repository [address] [place], [place] [address] Number: [id number]: (284) [id number] [phone] Date:7004-95-62NZ [address] [place] [address]VZ: 10/11/2017 Secondary DEL [facility] Insurance:MEDICAID [facility] Number: Repository [id number] Date:4642-07-47SV [address] [place] [address]QX: 10/01/2017 DEL A Primary DEL A [place] [id number] Insurance:NI GROSSB: [facility] MEDICARE SENIOR [id number] Number: Repository [place] [address]Alz: [id number] [phone] Date:7414-28-33PM [address] -[address] () 896466ZUZQITV[address] [place] [address]VI: 10/01/2017 Secondary DEL A [place] Insurance:MEDICAIDPol BECKETTDOB: [facility] icy Number: [id number] Hospital [id number] Repository Date:2017-10-01 10/01/2017 Tertiary NOT GIVENUNK [place] Insurance:SELF PAY [facility] Number: Effective Repository Date:2017-10-01 09/15/2017 DEL A Primary DLE A Rudy [id number] Insurance:NI GROSSB: [facility] MEDICARE SENIOR [id number] Number: Repository [place] [address]Kmk: [id number] [phone] Date:0400-45-13VC B[address] -[address] () 417883FOYBVYA, [place] [address]KS: 09/15/2017 Secondary DEL A [place] Insurance:MEDICAIDPol BECKETTDOB: Community icy Number: [id number] Hospital [id number] Repository Date:2017-05-07 09/15/2017 Tertiary NOT GIVENUNK [place] Insurance:SELF PAY [facility] Number: Effective Repository Date:2017-09-05 09/14/2017 DEL A Primary DEL A [place] [id number] Insurance:ANTHEM BECKETTDOB: [facility] MEDICARE SENIOR [id number] Number: Repository [place] [address]Gvs: [id number] [phone] Date:8240-85-01SA [address] -[address] () 354515QLIUUWA, [place] [address]XK: 09/14/2017 Secondary DEL A [place] Insurance:MEDICAIDPol BECKETTDOB: [facility] Number: [id number] Hospital [id number] Repository Date:2017-09-08 09/14/2017 Tertiary NOT GIVENUNK [place] Insurance:SELF PAY [facility] Number: Effective Repository Date:2017-09-08 09/07/2017 DEL A Primary DEL A [place] [id number] Insurance:ANTHEM BECKETTDOB: [facility] MEDICARE SENIOR [id number] Number: Repository [place] [address]Tzl: [id number] [phone] Date:2721-90-09QP B[address] -[address] () 160123XTFIQGF, [place] [address]FO: 09/07/2017 Secondary DEL A [place] Insurance:MEDICAIDPol BECKETTDOB: [facility] Number: [id number] Hospital [id number] Repository Date:2017-09-07 09/07/2017 Tertiary NOT GIVENUNK [place] Insurance:SELF PAY [facility] Effective Repository Date:2017-09-07 09/02/2017 DEL A Primary DEL A Rud[place] [id number] Insurance:NI GROSSB: [facility] MEDICARE SENIOR [id number] Number: Repository [place] [address]Iqr: [id number] [phone] Date:5247-52-06CJ [address] -[address] ) 573015LOLJNJC, [place] [address]YE: 09/02/2017 Secondary DEL A [place] Insurance:MEDICAIDPol BECKETTDOB: [facility] Number: [id number] Hospital [id number] Repository Date:2017-09-01 09/02/2017 Tertiary NOT GIVENUNK [place] Insurance:SELF PAY [facility] Number: Effective Repository Date:2017-09-02 09/01/2017 DEL A Primary DEL A Rud[place] [id number] Insurance:NI GROSSB: [facility] MEDICARE SENIOR [id number] Number: Repository [place] [address]Nqa: [id number] [phone] Date:5775-07-06GA BOX -[address] () 344347SGUWJUM, [place] [address]SA: 09/01/2017 Secondary DEL A Rud[place] Insurance:MEDICAIDPol BECKETTDOB: [facility] ic Number: [id number] Hospital [id number] Repository Date:2017-09-01 09/01/2017 Tertiary NOT GIVENUNK [place] Insurance:SELF PAY [facility] Number: Effective Repository Date:2017-09-01 09/01/2017 DEL A Primary DEL A [place] [id number] Insurance:NI BARRIOSDOB: [facility] MEDICARE SENIOR [id number] Number: Repository [place] [address]Qau: [id number] [phone] Date:3025-50-51RZ BOX -8 () 696438FOWMEARETELVINA GUTIERREZ [address]RY: 09/01/2017 Secondary DEL A [place] Insurance:MEDICAIDPol BECKETTDOB: [facility] Number: [id number] Hospital [id number] Repository Date:2017-09-01 09/01/2017 Tertiary NOT GIVENUNK [place] Insurance:SELF PAY [facility] Number: Effective Repository Date:2017-09-01 09/01/2017 DEL A Primary DEL A Rud[place] [id number] Insurance:ANTHEM DENISDOB: [facility] MEDICARE SENIOR [id number] Number: Repository [place] [address]Ivs: [id number] [phone] Date:1211-88-89SM B[address] -[address] () 587268NJTBCHV, [place] [address]FI: 09/01/2017 Secondary DEL A Rud[place] Insurance:MEDICAIDPol BECKETTDOB: [facility] icy Number: [id number] Hospital [id number] Repository Date:2017-09-01 09/01/2017 Tertiary NOT GIVENUNK [place] Insurance:SELF PAY [facility] Number: Effective Repository Date:2017-09-01 09/01/2017 DEL A Primary DEL A [place] [id number] Insurance:ANTHEM BECKETTDOB: [facility] MEDICARE SENIOR [id number] Number: Repository [place] [address]Cra: [id number] [phone] Date:3736-21-08LO B[address] -[address] () 578101RKZIQBH, [place] [address]WA: 09/01/2017 Secondary DEL A Rud[place] Insurance:MEDICAIDPol BECKETTDOB: [facility] Number: [id number] Hospital [id number] Repository Date:2017-09-01 09/01/2017 Tertiary NOT GIVENUNK [place] Insurance:SELF PAY [facility] Effective Repository Date:2017-09-01 09/01/2017 DEL A Primary DEL A Rduy [id number] Insurance:ANTHEM BECKETTDOB: [facility] MEDICARE SENIOR [id number] Number: Repository [place] [address]Rtg: [id number] [phone] Date:0137-44-60RF BOX () 851163ENNBCTC[address] [place] [address]QV: 09/01/2017 Secondary DEL A [place] Insurance:MEDICAIDPol BECKETTDOB: [facility] icy Number: [id number] Hospital [id number] Repository Date:2017-09-01 09/01/2017 Tertiary NOT GIVENUNK [place] Insurance:SELF PAY [facility] Number: Effective Repository Date:2017-09-01 09/01/2017 DEL A Primary DEL A Rud[place] [id number] Insurance:ANTHEM BECKSKYDOB: [facility] MEDICARE SENIOR [id number] Number: Repository [place] [address]Tgv: [id number] [phone] Date:5454-27-68AC [address] -[address] () 306621CYNAKDG, [place] [address]WQ: 09/01/2017 Secondary DEL A [place] Insurance:MEDICAIDPol BECKETTDOB: [facility] Number: [id number] Hospital [id number] Repository Date:2017-09-01 09/01/2017 Tertiary NOT GIVENUNK [place] Insurance:SELF PAY [facility]: Effective Repository Date:2017-09-01 09/01/2017 DEL A Primary DEL A [place] [id number] Insurance:ANTHEM BECKETTDOB: [facility] MEDICARE SENIOR [id number] Number: Repository [place] [address]Juh: [id number] [phone] Date:0531-66-71GG B[address] -[address] () 131087WBIDDLP, [place] [address]KR: 09/01/2017 Secondary DEL A [place] Insurance:MEDICAIDPol BECKETTDOB: [facility] Number: [id number] Hospital [id number] Repository Date:2017-09-01 09/01/2017 Tertiary NOT GIVENUNK [place] Insurance:SELF PAY [facility] Number: Effective Repository Date:2017-09-01 09/01/2017 DEL A Primary DEL A [place] [id number] Insurance:ANTHEM BECKETTDOB: [facility] MEDICARE SENIOR [id number] Number: Repository [place] [address]Tcg: [id number] [phone] Date:5239-68-77RC B[address] -[address] () 158565FXOXCWK, [place] [address]XF: 09/01/2017 Secondary DEL A [place] Insurance:MEDICAIDPol BECKETTDOB: [facility] Number: [id number] Hospital [id number] Repository Date:2017-09-01 09/01/2017 Tertiary NOT GIVENUNK [place] Insurance:SELF PAY [facility] Number: Effective Repository Date:2017-09-01 09/01/2017 Del Primary Del [place] [id number] Insurance:ANTHEM BeckettDOB: [facility] MEDICARE SENIOR [id number] Number: Repository [place] [address]Aee: [id number] [phone] Date:2510-65-19VL [address] -[address] () 620187DNGDRHZ, [place] [address]WG: 09/01/2017 Secondary Del [place] Insurance:MEDICAIDPol BeckettDOB: Community icy Number: [id number] Hospital [id number] Repository Date:2017-05-07 09/01/2017 Tertiary NOT GIVENUNK [place] Insurance:SELF PAY [facility] Number: Effective Repository Date:2017-08-05 08/17/2017 DEL A Primary DEL A [place] [id number] Insurance:NI GROSSB: [facility] MEDICARE SENIOR [id number] Number: Repository [place] [address]Iie: [id number] [phone] Date:6737-54-49XC B[address] -[address] () 450849JMZSUEB[address] [place] [address]CR: 08/17/2017 Secondary DEL A Rud[place] Insurance:MEDICAIDPol BECKETTDOB: [facility] icy Number: [id number] Hospital [id number] Repository Date:2017-04-07 08/17/2017 Tertiary NOT GIVENUNK [place] Insurance:SELF PAY [facility] Number: Effective Repository Date:2017-08-05 08/04/2017 Del Primary Del Rudy [id number] Insurance:NI GrossB: [facility] MEDICARE SENIOR [id number] Number: Repository [place] [address]Eva: [id number] [phone] Date:2189-78-79TA [address] -[address] () 854847ZKNMQQW[address] [place] [address] 82[address]IJ: 08/04/2017 Secondary Del [place] Insurance:MEDICAIDPol BeckettDOB: [facility] icy Number: [id number] Hospital [id number] Repository Date:2017-05-07 08/04/2017 Tertiary NOT GIVENUNK [place] Insurance:SELF PAY [facility] Number: Effective Repository Date:2017-07-08 07/29/2017 Del Primary Del Rud[place] [id number] Insurance:NI BarriosDOB: [facility] MEDICARE SENIOR [id number] Number: Repository [place] [address]Imb: [id number] [phone] Date:1881-46-07BQ B[address] -[address] () 963619BVUHMVS, [place] [address]VZ: 07/29/2017 Secondary Del Rud[place] Insurance:MEDICAIDPol BeckettDOB: [facility] icy Number: [id number] Hospital [id number] Repository Date:2017-07-21 07/29/2017 Tertiary NOT GIVENUNK [place] Insurance:SELF PAY [facility] Number: Effective Repository Date:2017-07-21 07/16/2017 Del Primary Del [place] [id number] Insurance:ANTHEM BeckettDOB: [facility] MEDICARE SENIOR [id number] Number: Repository [place] [address]Cii: [id number] [phone] Date:7032-15-41WJ [address] () 981607NNUFRMN, [place] [address]IV: 07/16/2017 Secondary Del Rud[place] Insurance:MEDICAIDPol BeckettDOB: [facility] icy Number: [id number] Hospital [id number] Repository Date:2017-07-08 07/16/2017 Tertiary NOT GIVENUNK [place] Insurance:SELF PAY [facility] Number: Effective Repository Date:2017-07-08 07/15/2017 Del Primary Del Rudy [id number] Insurance:ANTHEM BeckettDOB: [facility] MEDICARE SENIOR [id number] Number: Repository [place] [address]Fbi: [id number] [phone] Date:4306-27-26YN [address] -[address] () 835009RERRGBK, [place] [address]BN: 07/15/2017 Secondary Del Rudy Insurance:MEDICAIDPol BeckettDOB: [facility] icy Number: [id number] Hospital [id number] Repository Date:2017-05-07 07/15/2017 Tertiary NOT GIVENUNK [place] Insurance:SELF PAY [facility] Number: Effective Repository Date:2017-07-15 07/08/2017 Del Primary Del [place] [id number] Insurance:ANTHEM BeckettDOB: [facility] MEDICARE SENIOR [id number] Number: Repository [place] [address]Oex: [id number] [phone] Date:2236-10-69RQ [address] -[address] () 617204ODQTYKR [place] [address]UK: 07/08/2017 Secondary Del [place] Insurance:MEDICAIDPol BeckettDOB: Community [facility] Number: [id number] Hospital [id number] Repository Date:2017-07-08 07/08/2017 Tertiary NOT GIVENUNK [place] Insurance:SELF PAY [facility] Number: Effective Repository Date:2017-07-08 07/08/2017 Del Primary Del [place] [id number] Insurance:ANTHEM BeckettDOB: [facility] MEDICARE SENIOR [id number] Number: Repository [place] [address]Koz: [id number] Date:5709-54-24HH BOX () 133177COTZNTM [place] [address]XY: 07/08/2017 Secondary Del [place] Insurance:MEDICAIDPol BeckettDOB: [facility] icy Number: [id number] Hospital [id number] Repository Date:2017-04-07 07/08/2017 Tertiary NOT GIVENUNK [place] Insurance:SELF PAY [facility] Number: Effective Repository Date:2017-07-08 07/07/2017 Del Primary Del [place] [id number] Insurance:ANTHEM BeckettDOB: [facility] MEDICARE SENIOR [id number] Number: Repository [place] [address]Lqm: [id number] Date:1660-36-95QX BOX () 167256HKBQAJQ, [place] [address]PO: 07/07/2017 Secondary Del [place] Insurance:MEDICAIDPol BeckettDOB: Community [facility] Number: [id number] Hospital [id number] Repository Date:2017-05-07 07/07/2017 Tertiary NOT GIVENUNK [place] Insurance:SELF PAY [facility] Effective Repository Date:2017-06-07
== END ==
PROVIDERS: Family Provider Family Medicine Geriatric Medicine; PCP Family Medicine Geriatric Medicine; Visit Provider Family Medicine Geriatric Medicine
DX: E11.9 Type 2 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without complications (principal); E55.9 Vitamin D deficiency, unspecified
CPT/HCPCS: 36415; 80053; 82306; 84443; 85025

== ENCOUNTER 2018-07-06 08:00 | Outpatient (RCR) | payer MEDICARE, MEDICAID, SELFPAY ==
[2018-06-07 00:42] VITALS: BP 133/63; PULSE 76; RESP 18; TEMP 36.3
[2018-06-08 08:16] VITALS: BP 149/73; PULSE 89; RESP 18; TEMP 36.2
--- NOTE | 2018-06-08 09:19 | PCM.WC.PN ---
(1) Other specified peripheral vascular diseases Status: Suspected Current Visit: Yes Code(s): I73.89 - Other specified peripheral vascular diseases (2) Cold-induced injury Status: Chronic Current Visit: Yes Code(s): T69.9XXA - Effect of reduced temperature, unspecified, initial encounter (3) Chronic ulcer of right foot with fat layer exposed Status: Chronic Current Visit: Yes Code(s): L97.512 - Non-pressure chronic ulcer of other part of right foot with fat layer exposed (4) Ulcer of left lower extremity with fat layer exposed Status: Chronic Current Visit: Yes Code(s): L97.922 - Non-pressure chronic ulcer of unspecified part of left lower leg with fat layer exposed (5) Maceration of skin Status: Acute Current Visit: Yes Code(s): L98.8 - Other specified disorders of the skin and subcutaneous tissue (6) BKA stump complication Status: Chronic Current Visit: Yes Code(s): T87.9 - Unspecified complications of amputation stump (7) Type 2 diabetes mellitus with diabetic polyneuropathy Status: Chronic Current Visit: Yes Code(s): E11.42 - Type 2 diabetes mellitus with diabetic polyneuropathy (8) Delayed wound healing Status: Chronic Current Visit: Yes Code(s): T14.8 - Other injury of unspecified body region (9) Malnutrition Status: Chronic Current Visit: Yes Code(s): E46 - Unspecified protein-calorie malnutrition (10) Venous insufficiency Status: Chronic Current Visit: Yes Code(s): I87.2 - Venous insufficiency (chronic) (peripheral) (11) Lymphedema Status: Chronic Current Visit: Yes Code(s): I89.0 - Lymphedema, not elsewhere classified (12) Edema of both legs Status: Chronic Current Visit: Yes Code(s): R60.0 - Localized edema Type of Wound Date of Service: 06/08/18 Chief Complaint: 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 wet cold foot History of Wound: 58-year-old white male returns to clinic for follow-up of bilateral leg ulcers and right foot ulcers. He denies fever, chill, nausea, vomiting, loss of appetite. He had multiple advanced wound care product applications. He continues with hyperbaric oxygen therapy sessions. He presents in a wheelchair today. He denies odors or redness. He relates he got his foot wet yesterday when he was trying to clean his floor and then he proceeded to go outside and this was exposed to the cold again. Progress of Wound: Stable right toe area. improving right heel area. Left stump site ulcer stable. Status change is concern for vascular disease of the right forefoot - Physical Exam Vital Signs Temp Pulse Resp BP 97.2 F L 89 18 149/73 H 06/08/18 08:16 06/08/18 08:16 06/08/18 08:16 06/08/18 08:16 General: Alert, Oriented x3, Cooperative Extremities: No cyanosis, Capillary Refill Less than 3 Seconds - Digits 1, 3, 4. Capillary fill time is less than 5 seconds to the fifth toe, No Calf Tenderness, Diminished Peripheral Pulses, Edema - Left stump and right lower extremity Skin: Ulcer/ Wound - Granular healthy base that he will and toe right lower extremity. Some hemorrhagic tissue and scant granulation tissue exposed to left leg stump site. Maceration and decreased temperature to palpation to the right forefoot. The tissue appears moist and there is no necrosis., - - The skin is hairless and atrophic bilateral lower extremities Wound Measurements and Assessment WC - Nurse 1 - General Ulcer Measurement Start: 06/08/18 08:16 Freq: Status: Active Protocol: Activity Type Activity Date Activity User E-Sign Co-Sign Detail Recorded Client Recorded Date Recorded By Document 06/08/18 08:16 DL [id number] 06/08/18 08:32 DL 06/08/18 08:16 Wound Center Nurse 1 [Ulcer Assessment] #22 left stump -Current Size (cm) - Length 0.1 -Current Size (cm) - Width 0.1 -Current Size (cm) - Depth 0.1 -Total Square Cm 0.01 -Photo Taken Yes -Exudate Amt Large (67-100%) -Exudate Type Serosanguineous -Wound Margin Indistinct, Non -Visible -Granulation Amt Large (67-100%) -Granulation Quality [place] -Necrosis Amt Small (1-33%) -Necrotic Tissue Type Adherent Slough -Structure Exposed N/A -Texture (Martha-wound Skin Appearance) Localized Edema Scarring -Moisture (Martha-wound Skin Appearance Maceration ) -Color (Martha-wound Skin Appearance) Hemosiderin Staining -Temperature (Martha-wound Skin No Abnormality Appearance) (Pt Warm) -Tenderness on Palpation (Martha-wound No Skin Appearance) -Ulcer Cleansing Wound Cleanser -Foul Odor after Cleansing No -Anesthetic Used 4% Lidocaine Solution #13 R Med Heel -Current Size (cm) - Length 1 -Current Size (cm) - Width 1.3 -Current Size (cm) - Depth 0.1 -Total Square Cm 1.3 -Photo Taken No -Exudate Amt Medium (34-66%) -Exudate Type Serosanguineous -Wound Margin Distinct, Outline Attached -Granulation Amt Medium (34-66%) -Granulation Quality [place] Red -Necrosis Amt Medium (34-66%) -Necrotic Tissue Type Adherent Slough -Structure Exposed N/A -Texture (Martha-wound Skin Appearance) Localized Edema Scarring -Moisture (Martha-wound Skin Appearance Maceration ) -Color (Martha-wound Skin Appearance) Hemosiderin Staining -Temperature (Martha-wound Skin No Abnormality Appearance) (Pt Warm) -Tenderness on Palpation (Martha-wound No Skin Appearance) -Ulcer Cleansing Wound Cleanser -Foul Odor after Cleansing No -Anesthetic Used 4% Lidocaine Solution #21 Right Foot-Toes w/Metatarsal Head circumfrential -Current Size (cm) - Length 13 -Current Size (cm) - Width 7.5 -Current Size (cm) - Depth 0.1 -Total Square Cm 97.5 -Photo Taken Yes -Exudate Amt Large (67-100%) -Exudate Type Serosanguineous -Wound Margin Indistinct, Non -Visible -Granulation Amt Medium (34-66%) -Granulation Quality [place] Red -Necrosis Amt Medium (34-66%) -Necrotic Tissue Type Adherent Slough -Structure Exposed N/A -Texture (Martha-wound Skin Appearance) Localized Edema Scarring -Moisture (Martha-wound Skin Appearance Maceration ) -Color (Martha-wound Skin Appearance) Hemosiderin Staining -Temperature (Martha-wound Skin No Abnormality Appearance) (Pt Warm) -Tenderness on Palpation (Martha-wound No Skin Appearance) -Ulcer Cleansing Wound Cleanser -Foul Odor after Cleansing No -Anesthetic Used 4% Lidocaine Solution [Edema Assessment] -Right Calf (cm) 39 -Right Ankle (cm) 29.5 -Left Calf (cm) 47.5 WC - Nurse 2 - General Ulcer CM Notes Start: 06/08/18 08:16 Freq: Status: Active Protocol: Activity Type Activity Date Activity User E-Sign Co-Sign Detail Recorded Client Recorded Date Recorded By Document 06/08/18 08:56 DL [id number] 06/08/18 08:58 DL 06/08/18 08:56 Wound Center Nurse 2 [Procedure/Treatment] #22 left stump -Correct Patient No -Correct Side, Site, Position No -Correct Procedure No -Procedure Performed No #13 R Med Heel -Time 08:57 -Correct Patient Yes -Correct Side, Site, Position Yes -Correct Procedure Yes -Procedure Performed Yes -Type of Procedure Debridement -Clinical Debridement Subcutaneous -Post Debridement Size (cm) - Length 1.1 -Post Debridement Size (cm) - Width 1.3 -Post Debridement Size (cm) - Depth 0.1 -Total Square Cm 1.43 -Wound/Ulcer Outcome Not Healed -Ulcer Cleansing Rinsed/ Irrigated with Saline -Foul Odor after Cleansing No -Bioengineered Tissue No -Bleeding Controlled with Pressure -Offloading No -Treatment Response Procedure Tolerated Well #21 Right Foot-Toes w/Metatarsal Head circumfrential -Correct Patient No -Correct Side, Site, Position No -Correct Procedure No -Procedure Performed No [See Physician Procedure note for Specifics] Pain Scale: 0-10 Numeric [Pain] -Is Patient Pain Free? Yes Musculoskeletal: No Tenderness to Palpation of Joints or Extremities, Muscle Wasting Neurological: - - Lack of epicritic sensation light touch bilateral lower extremities Psych/Mental Status: Normal Affect, Appropriate Debridement Note Post-Debridement Measurements/Treatment WC - Nurse 2 - General Ulcer CM Notes Start: 06/08/18 08:16 Freq: Status: Active Protocol: Activity Type Activity Date Activity User E-Sign Co-Sign Detail Recorded Client Recorded Date Recorded By Document 06/08/18 08:56 DL [id number] 06/08/18 08:58 DL 06/08/18 08:56 Wound Center Nurse 2 #22 left stump -Correct Patient No -Correct Side, Site, Position No -Correct Procedure No -Procedure Performed No #13 R Med Heel -Time 08:57 -Correct Patient Yes -Correct Side, Site, Position Yes -Correct Procedure Yes -Procedure Performed Yes -Type of Procedure Debridement -Clinical Debridement Subcutaneous -Post Debridement Size (cm) - Length 1.1 -Post Debridement Size (cm) - Width 1.3 -Post Debridement Size (cm) - Depth 0.1 -Total Square Cm 1.43 -Wound/Ulcer Outcome Not Healed -Ulcer Cleansing Rinsed/ Irrigated with Saline -Foul Odor after Cleansing No -Bioengineered Tissue No -Bleeding Controlled with Pressure -Offloading No -Treatment Response Procedure Tolerated Well #21 Right Foot-Toes w/Metatarsal Head circumfrential -Correct Patient No -Correct Side, Site, Position No -Correct Procedure No -Procedure Performed No Pain Scale: 0-10 Numeric Is Patient Pain Free? Yes Wound debrided: heel Laterality: Right Wound Grade/Stage: grade 3 Type of Debridement: Excisional debridement Anesthesia Used: 5% Lidocaine Gel Depth: in the subcutaneous layer Percentage of wound debrided: 100 Instrument Used: #15 blade Tissue Removed: fibrous, devitalized subcutaneous, biofilm, slough Severity: Fat Layer Exposed Amount of bleeding with debridement: Mild Bleeding Controlled with: Pressure Patient tolerated procedure well Assessment/Plan Active Problems Cold-induced injury (Chronic) Chronic ulcer of right foot with fat layer exposed (Chronic) Ulcer of left lower extremity with fat layer exposed (Chronic) Maceration of skin (Acute) BKA stump complication (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 right heel ulcer muscle involved and exposed fascia without infection noted today (previous grade 3); s/p surgical debridement and application of advance wound care products (amniofil and epicord). Right foot hypothermia. 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 Lymphedema. Chronic lower extremity edema and venous insufficiency. Morbid obesity. Type 2 diabetes uncontrolled with peripheral neuropathy. CKD. Hypertension. Malnutrition. Delayed wound healing. Nonadherence to treatment plan Plan: I reviewed and discussed his case debridement done (right heel only) as documented above in the clinical panel; this procedure was well tolerated. I applied Guera and he is advised to change this every 1-2 days with home health assistance. Continue compression left with 3M2L and aislinn right lower extremity. Reapplication of 3 M2 L will be considered after vascular studies are complete. Optimal blood sugar contol. We discussed compliance and I recommend elevating only 75% of the time. To avoid trauma to the right foot as he sustained last week. Continue protein suppplements and increased protein in diet. To continue hyperbaric oxygen therapy as scheduled on complaint basis. I encouraged continued use. I also recommend a lymphedema clinic. He went approximately 3 years ago and found this to be very helpful. He no longer has his thigh-high compression garments that were arranged for him during this last session. There is a lymphedema clinic in [place] and his information was sent over. He has not been in contact with them yet and he was urged again today to call over and initiate this process if they have not called him her left her message yet. To improve compliance with compression pumps. Hypothermia prevention, risks, complications and education was discussed today. He was advised to strictly cover his foot and to avoid cold or moisture exposure while outside. He understands he is at high risk for limb loss due to frostbite at this already compromised limb site. Additional care was taken to apply underlying Tubigrip and sock and dressing protection layers today. He was urged to be compliant with this prior to leaving his home in between clinic sessions. I am concerned about his status change. His clinical appearance of his right foot may be a result of moisture and cold exposure however would like to screen him for peripheral vascular disease status change. Order was provided today and he is scheduled for tomorrow afternoon at 1 PM. He will have the test completed and I will call him with results. He is reassured no anna necrosis or tissue loss was noted and his capillary fill time was noted to the toes. Follow up in 1 week with at the wound healing center or call sooner if he has any questions or concerns.
--- NOTE | 2018-06-08 09:24 | PN.PCM_ITS ---
(1) Other specified peripheral vascular diseases Status: Suspected Current Visit: Yes Code(s): I73.89 - Other specified peripheral vascular diseases (2) Cold-induced injury Status: Chronic Current Visit: Yes Code(s): T69.9XXA - Effect of reduced temperature, unspecified, initial encounter (3) Chronic ulcer of right foot with fat layer exposed Status: Chronic Current Visit: Yes Code(s): L97.512 - Non-pressure chronic ulcer of other part of right foot with fat layer exposed (4) Ulcer of left lower extremity with fat layer exposed Status: Chronic Current Visit: Yes Code(s): L97.922 - Non-pressure chronic ulcer of unspecified part of left lower leg with fat layer exposed (5) Maceration of skin Status: Acute Current Visit: Yes Code(s): L98.8 - Other specified disorders of the skin and subcutaneous tissue (6) BKA stump complication Status: Chronic Current Visit: Yes Code(s): T87.9 - Unspecified complications of amputation stump (7) Type 2 diabetes mellitus with diabetic polyneuropathy Status: Chronic Current Visit: Yes Code(s): E11.42 - Type 2 diabetes mellitus with diabetic polyneuropathy (8) Delayed wound healing Status: Chronic Current Visit: Yes Code(s): T14.8 - Other injury of unspecified body region (9) Malnutrition Status: Chronic Current Visit: Yes Code(s): E46 - Unspecified protein- calorie malnutrition (10) Venous insufficiency Status: Chronic Current Visit: Yes Code(s): I87.2 - Venous insufficiency (chronic) (peripheral) (11) Lymphedema Status: Chronic Current Visit: Yes Code(s): I89.0 - Lymphedema, not el sewhere classified (12) Edema of both legs Status: Chronic Current Visit: Yes Code(s): R60.0 - Localized edema Type of Wound Date of Service: 06/08/18 Chief Complaint: 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 wet cold foot History of Wound: 58-year-old white male returns to clinic for follow-up of bilateral leg ulcers and right foot ulcers. He denies fever, chill, nausea, vomiting, loss of appetite. He had multiple advanced wound care product applications. He continues with hyperbaric oxygen therapy sessions. He presents in a wheelchair today. He denies odors or redness. He relates he got his foot wet yesterday when he was trying to clean his floor and then he proceeded to go outside and this was exposed to the cold again. Progress of Wound: Stable right toe area. improving right heel area. Left stump site ulcer stable. Status change is concern for vascular disease of the right forefoot - Physical Exam Vital Signs Temp Pulse Resp BP 97.2 F L 89 18 149/73 H 06/08/18 08:16 06/08/18 08:16 06/08/18 08:16 06/08/18 08:16 General: Alert, Oriented x3, Cooperative Extremities: No cyanosis, Capillary Refill Less than 3 Seconds - Digits 1, 3, 4. Capillary fill time is less than 5 seconds to the fifth toe, No Calf Tenderness, Diminished Peripheral Pulses, Edema - Left stump and right lower extremity Skin: Ulcer/ Wound - Granular healthy base that he will and toe right lower extremity. Some hemorrhagic tissue and scant granulation tissue exposed to left leg stump site. Maceration and decreased temperature to palpation to the right forefoot. The tissue appears moist and there is no necrosis., - - The skin is hairless and atrophic bilateral lower extremities Wound Measurements and Assessment WC - Nurse 1 - General Ulcer Measurement Start: 06/08/18 08:16 Freq: Status: Active Protocol: Activity Type Activity Date Activity User E-Sign Co-Sign Detail Recorded Client Recorded Date Recorded By Document 06/08/18 08:16 DL [id number] 06/08/18 08:32 DL 06/08/18 08:16 Wound Center Nurse 1 [Ulcer Assessment] #22 left stump -Current Size (cm) - Length 0.1 -Current Size (cm) - Width 0.1 -Current Size (cm) - Depth 0.1 -Total Square Cm 0.01 -Photo Taken Yes -Exudate Amt Large (67-100%) -Exudate Type Serosanguineous -Wound Margin Indistinct, Non -Visible -Granulation Amt Large (67-100%) -Granulation Quality [place] -Necrosis Amt Small (1-33%) -Necrotic Tissue Type Adherent Slough -Structure Exposed N/A -Texture (Martha-wound Skin Appearance) Localized Edema Scarring -Moisture (Martha-wound Skin Appearance Maceration ) -Color (Martha-wound Skin Appearance) Hemosiderin Staining -Temperature (Martha-wound Skin No Abnormality Appearance) (Pt Warm) -Tenderness on Palpation (Martha-wound No Skin Appearance) -Ulcer Cleansing Wound Cleanser -Foul Odor after Cleansing No -Anesthetic Used 4% Lidocaine Solution #13 R Med Heel -Current Size (cm) - Length 1 -Current Size (cm) - Width 1.3 -Current Size (cm) - Depth 0.1 -Total Square Cm 1.3 -Photo Taken No -Exudate Amt Medium (34-66%) -Exudate Type Serosanguineous -Wound Margin Distinct, Outline Attached -Granulation Amt Medium (34-66%) -Granulation Quality [place] Red -Necrosis Amt Medium (34-66%) -Necrotic Tissue Type Adherent Slough -Structure Exposed N/A -Texture (Martha-wound Skin Appearance) Localized Edema Scarring -Moisture (Martha-wound Skin Appearance Maceration ) -Color (Martha-wound Skin Appearance) Hemosiderin Staining -Temperature (Martha-wound Skin No Abnormality Appearance) (Pt Warm) -Tenderness on Palpation (Martha-wound No Skin Appearance) -Ulcer Cleansing Wound Cleanser -Foul Odor after Cleansing No -Anesthetic Used 4% Lidocaine Solution #21 Right Foot-Toes w/Metatarsal Head circumfrential -Current Size (cm) - Length 13 -Current Size (cm) - Width 7.5 -Current Size (cm) - Depth 0.1 -Total Square Cm 97.5 -Photo Taken Yes -Exudate Amt Large (67-100%) -Exudate Type Serosanguineous -Wound Margin Indistinct, Non -Visible -Granulation Amt Medium (34-66%) -Granulation Quality [place] Red -Necrosis Amt Medium (34-66%) -Necrotic Tissue Type Adherent Slough -Structure Exposed N/A -Texture (Martha-wound Skin Appearance) Localized Edema Scarring -Moisture (Martha-wound Skin Appearance Maceration ) -Color (Martha-wound Skin Appearance) Hemosiderin Staining -Temperature (Martha-wound Skin No Abnormality Appearance) (Pt Warm) -Tenderness on Palpation (Martha-wound No Skin Appearance) -Ulcer Cleansing Wound Cleanser -Foul Odor after Cleansing No -Anesthetic Used 4% Lidocaine Solution [Edema Assessment] -Right Calf (cm) 39 -Right Ankle (cm) 29.5 -Left Calf (cm) 47.5 WC - Nurse 2 - General Ulcer CM Notes Start: 06/08/18 08:16 Freq: Status: Active Protocol: Activity Type Activity Date Activity User E-Sign Co-Sign Detail Recorded Client Recorded Date Recorded By Document 06/08/18 08:56 DL [id number] 06/08/18 08:58 DL 06/08/18 08:56 Wound Center Nurse 2 [Procedure/Treatment] #22 left stump -Correct Patient No -Correct Side, Site, Position No -Correct Procedure No -Procedure Performed No #13 R Med Heel -Time 08:57 -Correct Patient Yes -Correct Side, Site, Position Yes -Correct Procedure Yes -Procedure Performed Yes -Type of Procedure Debridement -Clinical Debridement Subcutaneous -Post Debridement Size (cm) - Length 1.1 -Post Debridement Size (cm) - Width 1.3 -Post Debridement Size (cm) - Depth 0.1 -Total Square Cm 1.43 -Wound/Ulcer Outcome Not Healed -Ulcer Cleansing Rinsed/ Irrigated with Saline -Foul Odor after Cleansing No -Bioengineered Tissue No -Bleeding Controlled with Pressure -Offloading No -Treatment Response Procedure Tolerated Well #21 Right Foot-Toes w/Metatarsal Head circumfrential -Correct Patient No -Correct Side, Site, Position No -Correct Procedure No -Procedure Performed No [See Physician Procedure note for Specifics] Pain Scale: 0-10 Numeric [Pain] -Is Patient Pain Free? Yes Musculoskeletal: No Tenderness to Palpation of Joints or Extremities, Muscle Wasting Neurological: - - Lack of epicritic sensation light touch bilateral lower extre mities Psych/Mental Status: Normal Affect, Appropriate Debridement Note Post-Debridement Measurements/Treatment WC - Nurse 2 - General Ulcer CM Notes Start: 06/08/18 08:16 Freq: Status: Active Protocol: Activity Type Activity Date Activity User E-Sign Co-Sign Detail Recorded Client Recorded Date Recorded By Document 06/08/18 08:56 DL [id number] 06/08/18 08:58 DL 06/08/18 08:56 Wound Center Nurse 2 #22 left stump -Correct Patient No -Correct Side, Site, Position No -Correct Procedure No -Procedure Performed No #13 R Med Heel -Time 08:57 -Correct Patient Yes -Correct Side, Site, Position Yes -Correct Procedure Yes -Procedure Performed Yes -Type of Procedure Debridement -Clinical Debridement Subcutaneous -Post Debridement Size (cm) - Length 1.1 -Post Debridement Size (cm) - Width 1.3 -Post Debridement Size (cm) - Depth 0.1 -Total Square Cm 1.43 -Wound/Ulcer Outcome Not Healed -Ulcer Cleansing Rinsed/ Irrigated with Saline -Foul Odor after Cleansing No -Bioengineered Tissue No -Bleeding Controlled with Pressure -Offloading No -Treatment Response Procedure Tolerated Well #21 Right Foot-Toes w/Metatarsal Head circumfrential -Correct Patient No -Correct Side, Site, Position No -Correct Procedure No -Procedure Performed No Pain Scale: 0-10 Numeric Is Patient Pain Free? Yes Wound debrided: heel Laterality: Right Wound Grade/Stage: grade 3 Type of Debridement: Excisional debridement Anesthesia Used: 5% Lidocaine Gel Depth: in the subcutaneous layer Percentage of wound debrided: 100 Instrument Used: #15 blade Tissue Removed: fibrous, devitalized subcutaneous, biofilm, slough Severity: Fat Layer Exposed Amount of bleeding with debridement: Mild Bleeding Controlled with: Pressure Patient tolerated procedure well Assessment/Plan Active Problems Cold-induced injury (Chronic) Chronic ulcer of right foot with fat layer exposed (Chronic) Ulcer of left lower extremity with fat layer exposed (Chronic) Maceration of skin (Acute) BKA stump complication (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 right heel ulcer muscle involved and exposed fascia without infection noted today (previous grade 3); s/p surgical debridement and application of advance wound care products (amniofil and epicord). Right foot hypothermia. 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 Lymphedema. Chronic lower extremity edema and venous insufficiency. Morbid obesity. Type 2 diabetes uncontrolled with peripheral neuropathy. CKD. Hypertension. Malnutrition. Delayed wound healing. Nonadherence to treatment plan Plan: I reviewed and discussed his case debridement done (right heel only) as documented above in the clinical panel; this procedure was well tolerated. I applied Guera and he is advised to change this every 1-2 days with home health assistance. Continue compression left with 3M2L and aislinn right lower extremity. Reapplication of 3 M2 L will be considered after vascular studies are complete. Optimal blood sugar contol. We discussed compliance and I recommend elevating only 75% of the time. To avoid trauma to the right foot as he sustained last week. Continue protein suppplements and increased protein in diet. To continue hyperbaric oxygen therapy as scheduled on complaint basis. I encouraged continued use. I also recommend a lymphedema clinic. He went approximately 3 years ago and found this to be very helpful. He no longer has his thigh-high compression garments that were arranged for him during this last session. There is a lymphedema clinic in [place] and his information was sent over. He has not been in contact with them yet and he was urged again today to call over and initiate this process if they have not called him her left her message yet. To improve compliance with compression pumps. Hypothermia prevention, risks, complications and education was discussed today. He was advised to strictly cover his foot and to avoid cold or moisture exposure while outside. He understands he is at high risk for limb loss due to frostbite at this already compromised limb site. Additional care was taken to apply underlying Tubigrip and sock and dressing protection layers today. He was urged to be compliant with this prior to leaving his home in between clinic sessions. I am concerned about his status change. His clinical appearance of his right foot may be a result of moisture and cold exposure however would like to screen him for peripheral vascular disease status change. Order was provided today and he is scheduled for tomorrow afternoon at 1 PM. He will have the test completed and I will call him with results. He is reassured no anna necrosis or tissue loss was noted and his capillary fill time was noted to the toes. Follow up in 1 week with at the wound healing center or call sooner if he has any questions or concerns.
[2018-06-08 09:36] LABS: Bedside Glucose 200 mg/dL (70-110)
--- NOTE | 2018-06-08 09:53 | PCM.HBO.PN ---
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 wet cold foot DEL BARRIOS is a 58 year old currently undergoing hyperbaric oxygen therapy for right foot diabetic ulcer with necrosis of bone, Brooks grade 3, wet cold foot.. Progress: The patient appears to be tolerating hyperbaric oxygen therapy well. Today's session represents the 70th such session of hyperbaric oxygen therapy. Tolerance of hyperbaric oxygen therapy: Hyperbaric oxygen therapy was administered as per the facility's protocol. The patient tolerated hyperbaric oxygen therapy well, without complaints or complications. Upon emergence from the hyperbaric chamber the patient's vital signs remained stable. He was discharged in good condition. See documented blood glucose levels. 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 (Chronic) Ulcer of left lower extremity with fat layer exposed (Chronic) Ulcer of right lower extremity with fat layer exposed (Chronic) Ulcer of left lower extremity, limited to breakdown of skin (Chronic) Ulcer of left lower extremity, limited to breakdown of skin (Chronic) Non-pressure chronic ulcer of other part of right foot with fat layer exposed (Chronic) Complete below knee amputation of left lower extremity (Chronic) Ulcer of right foot with necrosis of muscle (Chronic) Ulcer of right foot with fat layer exposed (Chronic) 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) Delayed wound healing (Chronic) Malnutrition (Chronic) Venous insufficiency (Chronic) Lymphedema (Chronic) Edema of both legs (Chronic) GERD (gastroesophageal reflux disease) (Chronic) Hypertension (Chronic) Hyperlipemia (Chronic) Morbid obesity with BMI of 45.0-49.9, adult (Chronic) Hyperlipidemia associated with type 2 diabetes mellitus (Chronic) 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 Allergies/Adverse Reactions: Allergies bee venom protein (honey bee) Allergy (Verified 12/13/17 09:30) Swelling metronidazole [From Flagyl] Allergy (Verified 12/13/17 09:30) Itching Home Medications: Ambulatory Orders Medication Instructions Recorded Atorvastatin Calcium [Lipitor] 10 mg PO QHS 01/08/17 Brimonidine Tartrate 0.2% 1 drop EACH EYE BID 01/08/17 [Brimonidine 0.2% 5Ml Bottle] Ergocalciferol [Vitamin D] 50,000 unit PO FR 01/08/17 Gabapentin [Neurontin] 1,600 mg PO QHS 01/08/17 Gabapentin [Neurontin] 600 mg PO DAILY 01/08/17 Insulin U-500 [Humulin R U-500 105 units SC DINNER 01/08/17 ([facility])] Insulin U-500 [Humulin R U-500 105 units SC LUNCH 01/08/17 ([facility])] Insulin U-500 [Humulin R U-500 160 units SC BREAKFAST 01/08/17 ([facility])] Latanoprost 0.005% [Xalatan 1 drop EACH EYE QHS 01/08/17 Opthalmic] Losartan Potassium [Cozaar] 50 mg PO DAILY 01/08/17 Nebivolol HCl [Bystolic (Beta 10 mg PO DAILY 01/08/17 Akira)] Omeprazole [Prilosec] 40 mg PO DAILY 01/08/17 Acetaminophen [Tylenol Tablet] 650 mg PO Q6H PRN PRN tablet 09/07/17 Clopidogrel Bisulfate [Plavix] 75 mg PO DAILY 09/07/17 Menthol/Lanolin/Calamine/Znox 1 applic TOPICAL 0600,2200 tube 09/21/17 [Calmoseptine Ointment] Nutritional Supplement [Madhu - 1 packet PO BIDCM #60 packet 09/21/17 ORANGE FLAVOR] Nystatin Powder [Mycostatin Powder] 1 applic TOPICAL 0600,2200 bottle 09/21/17 Ferrous Sulfate [Iron] 325 mg PO BID 10/14/17 Clindamycin HCl 300 mg PO [id number] #40 cap 12/13/17 Maternal Family History: Diabetes Paternal Family History: Hypertension Sibling Family History: Diabetes Smoking Status: Former smoker Physical Exam Vital Signs Temp Pulse Resp BP 97.2 F L 89 18 149/73 H 06/08/18 08:16 06/08/18 08:16 06/08/18 08:16 06/08/18 08:16 General: Alert, Oriented x3, Cooperative HEENT: Atraumatic, TM's Clear Lungs: Clear to auscultation, Normal air movement Cardiovascular: Regular rate, Regular Rhythm Psych/Mental Status: Normal Affect, Appropriate, Alert and oriented to time, place, person, mood and affect Assessment/Plan Active Problems 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
[2018-06-08 09:58] VITALS: BP 149/73; PULSE 89; RESP 18; TEMP 36.2
[2018-06-08 10:11] LABS: Bedside Glucose 203 mg/dL (70-110)
[2018-06-08 12:26] LABS: Bedside Glucose 148 mg/dL (70-110)
[2018-06-09 09:45] LABS: Bedside Glucose 216 mg/dL (70-110)
[2018-06-09 10:33] VITALS: BP 117/57; BP 145/66; PULSE 84; PULSE 85; RESP 18; TEMP 35.8; TEMP 36.2
--- NOTE | 2018-06-09 11:03 | PCM.HBO.PN ---
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 wet cold foot DEL BARRIOS is a 58 year old currently undergoing hyperbaric oxygen therapy for right foot diabetic ulcer with necrosis of bone, Brooks grade 3, wet cold foot.. Progress: The patient appears to be tolerating hyperbaric oxygen therapy well. Today's session represents the 71st such session of hyperbaric oxygen therapy. Tolerance of hyperbaric oxygen therapy: Hyperbaric oxygen therapy was administered as per the facility's protocol. The patient tolerated hyperbaric oxygen therapy well, without complaints or complications. Upon emergence from the hyperbaric chamber the patient's vital signs remained stable. He was discharged in good condition. See documented blood glucose levels. 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 (Chronic) Ulcer of left lower extremity with fat layer exposed (Chronic) Ulcer of right lower extremity with fat layer exposed (Chronic) Ulcer of left lower extremity, limited to breakdown of skin (Chronic) Ulcer of left lower extremity, limited to breakdown of skin (Chronic) Non-pressure chronic ulcer of other part of right foot with fat layer exposed (Chronic) Complete below knee amputation of left lower extremity (Chronic) Ulcer of right foot with necrosis of muscle (Chronic) Ulcer of right foot with fat layer exposed (Chronic) 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) Delayed wound healing (Chronic) Malnutrition (Chronic) Venous insufficiency (Chronic) Lymphedema (Chronic) Edema of both legs (Chronic) GERD (gastroesophageal reflux disease) (Chronic) Hypertension (Chronic) Hyperlipemia (Chronic) Morbid obesity with BMI of 45.0-49.9, adult (Chronic) Hyperlipidemia associated with type 2 diabetes mellitus (Chronic) 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 Allergies/Adverse Reactions: Allergies bee venom protein (honey bee) Allergy (Verified 12/13/17 09:30) Swelling metronidazole [From Flagyl] Allergy (Verified 12/13/17 09:30) Itching Home Medications: Ambulatory Orders Medication Instructions Recorded Atorvastatin Calcium [Lipitor] 10 mg PO QHS 01/08/17 Brimonidine Tartrate 0.2% 1 drop EACH EYE BID 01/08/17 [Brimonidine 0.2% 5Ml Bottle] Ergocalciferol [Vitamin D] 50,000 unit PO FR 01/08/17 Gabapentin [Neurontin] 1,600 mg PO QHS 01/08/17 Gabapentin [Neurontin] 600 mg PO DAILY 01/08/17 Insulin U-500 [Humulin R U-500 105 units SC DINNER 01/08/17 ([facility])] Insulin U-500 [Humulin R U-500 105 units SC LUNCH 01/08/17 ([facility])] Insulin U-500 [Humulin R U-500 160 units SC BREAKFAST 01/08/17 ([facility])] Latanoprost 0.005% [Xalatan 1 drop EACH EYE QHS 01/08/17 Opthalmic] Losartan Potassium [Cozaar] 50 mg PO DAILY 01/08/17 Nebivolol HCl [Bystolic (Beta 10 mg PO DAILY 01/08/17 Akira)] Omeprazole [Prilosec] 40 mg PO DAILY 01/08/17 Acetaminophen [Tylenol Tablet] 650 mg PO Q6H PRN PRN tablet 09/07/17 Clopidogrel Bisulfate [Plavix] 75 mg PO DAILY 09/07/17 Menthol/Lanolin/Calamine/Znox 1 applic TOPICAL 0600,2200 tube 09/21/17 [Calmoseptine Ointment] Nutritional Supplement [Madhu - 1 packet PO BIDCM #60 packet 09/21/17 [place] FLAVOR] Nystatin Powder [Mycostatin Powder] 1 applic TOPICAL 0600,2200 bottle 09/21/17 Ferrous Sulfate [Iron] 325 mg PO BID 10/14/17 Clindamycin HCl 300 mg PO [id number] #40 cap 12/13/17 Maternal Family History: Diabetes Paternal Family History: Hypertension Sibling Family History: Diabetes Smoking Status: Former smoker Physical Exam Vital Signs Temp Pulse Resp BP 97.1 F L 84 18 145/66 H 06/09/18 10:33 06/09/18 10:33 06/09/18 10:33 06/09/18 10:33 General: Alert, Oriented x3, Cooperative HEENT: Atraumatic, TM's Clear Lungs: Clear to auscultation, Normal air movement Cardiovascular: Regular rate, Regular Rhythm Psych/Mental Status: Normal Affect, Appropriate, Alert and oriented to time, place, person, mood and affect Assessment/Plan Active Problems 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
[2018-06-09 12:25] LABS: Bedside Glucose 137 mg/dL (70-110)
--- NOTE | 2018-06-09 13:10 | ART_ITS ---
Reason For Study: PVD Left Segmental Pressures Left brachial= 145mmHg. The left thigh is noncompressible. The left thigh waveforms are triphasic. Right Segmental Pressures Right brachial= 142mmHg. Right posterior tibial artery = 130mmHg. Right dorsalis pedis artery = 152mmHg. The right dorsalis pedis waveforms are triphasic. The right posterior tibial artery waveforms are triphasic. Indices The right resting ankle brachial index is 1.05. The right ankle brachial index by the dorsalis pedis is 1.05. The right ankle brachial index by the posterior tibial artery is 130. Interpretation Summary Triphasic waveforms are noted at ankle level on the right. The right resting ankle-brachial index appears normal. There is no evidence of significant arterial occlusive disease in the right lower extremity. The patient has a below-knee amputation on the left. The left thigh waveforms are triphasic Ordering Physician: Rachele Lux Performed By: JULIETA ESPINOZA Soham
[2018-06-10 10:01] LABS: Bedside Glucose 270 mg/dL (70-110)
[2018-06-10 10:36] LABS: Bedside Glucose 234 mg/dL (70-110)
[2018-06-10 10:40] VITALS: BP 129/61; BP 164/96; PULSE 80; PULSE 85; RESP 16; RESP 18; TEMP 35.8; TEMP 36.2
--- NOTE | 2018-06-10 12:17 | PCM.HBO.PN ---
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 wet cold foot DEL BARRIOS is a 58 year old currently undergoing hyperbaric oxygen therapy for right foot diabetic ulcer with necrosis of bone, Brooks grade 3, wet cold foot.. Progress: The patient appears to be tolerating hyperbaric oxygen therapy well. Today's session represents the 71st such session of hyperbaric oxygen therapy. Tolerance of hyperbaric oxygen therapy: Hyperbaric oxygen therapy was administered as per the facility's protocol. The patient tolerated hyperbaric oxygen therapy well, without complaints or complications. Upon emergence from the hyperbaric chamber the patient's vital signs remained stable. He was discharged in good condition. See documented blood glucose levels. 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 (Chronic) Ulcer of left lower extremity with fat layer exposed (Chronic) Ulcer of right lower extremity with fat layer exposed (Chronic) Ulcer of left lower extremity, limited to breakdown of skin (Chronic) Ulcer of left lower extremity, limited to breakdown of skin (Chronic) Non-pressure chronic ulcer of other part of right foot with fat layer exposed (Chronic) Complete below knee amputation of left lower extremity (Chronic) Ulcer of right foot with necrosis of muscle (Chronic) Ulcer of right foot with fat layer exposed (Chronic) 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) Delayed wound healing (Chronic) Malnutrition (Chronic) Venous insufficiency (Chronic) Lymphedema (Chronic) Edema of both legs (Chronic) GERD (gastroesophageal reflux disease) (Chronic) Hypertension (Chronic) Hyperlipemia (Chronic) Morbid obesity with BMI of 45.0-49.9, adult (Chronic) Hyperlipidemia associated with type 2 diabetes mellitus (Chronic) 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 Allergies/Adverse Reactions: Allergies bee venom protein (honey bee) Allergy (Verified 12/13/17 09:30) Swelling metronidazole [From Flagyl] Allergy (Verified 12/13/17 09:30) Itching Home Medications: Ambulatory Orders Medication Instructions Recorded Atorvastatin Calcium [Lipitor] 10 mg PO QHS 01/08/17 Brimonidine Tartrate 0.2% 1 drop EACH EYE BID 01/08/17 [Brimonidine 0.2% 5Ml Bottle] Ergocalciferol [Vitamin D] 50,000 unit PO FR 01/08/17 Gabapentin [Neurontin] 1,600 mg PO QHS 01/08/17 Gabapentin [Neurontin] 600 mg PO DAILY 01/08/17 Insulin U-500 [Humulin R U-500 105 units SC DINNER 01/08/17 ([facility])] Insulin U-500 [Humulin R U-500 105 units SC LUNCH 01/08/17 ([facility])] Insulin U-500 [Humulin R U-500 160 units SC BREAKFAST 01/08/17 ([facility])] Latanoprost 0.005% [Xalatan 1 drop EACH EYE QHS 01/08/17 Opthalmic] Losartan Potassium [Cozaar] 50 mg PO DAILY 01/08/17 Nebivolol HCl [Bystolic (Beta 10 mg PO DAILY 01/08/17 Akira)] Omeprazole [Prilosec] 40 mg PO DAILY 01/08/17 Acetaminophen [Tylenol Tablet] 650 mg PO Q6H PRN PRN tablet 09/07/17 Clopidogrel Bisulfate [Plavix] 75 mg PO DAILY 09/07/17 Menthol/Lanolin/Calamine/Znox 1 applic TOPICAL 0600,2200 tube 09/21/17 [Calmoseptine Ointment] Nutritional Supplement [Madhu - 1 packet PO BIDCM #60 packet 09/21/17 ORANGE FLAVOR] Nystatin Powder [Mycostatin Powder] 1 applic TOPICAL 0600,2200 bottle 09/21/17 Ferrous Sulfate [Iron] 325 mg PO BID 10/14/17 Clindamycin HCl 300 mg PO [id number] #40 cap 12/13/17 Maternal Family History: Diabetes Paternal Family History: Hypertension Sibling Family History: Diabetes Smoking Status: Former smoker Physical Exam Vital Signs Temp Pulse Resp BP 97.2 F L 85 18 129/61 H 06/10/18 10:40 06/10/18 10:40 06/10/18 10:40 06/10/18 10:40 Assessment/Plan Active Problems 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
[2018-06-10 12:31] LABS: Bedside Glucose 194 mg/dL (70-110)
[2018-06-14 09:46] LABS: Bedside Glucose 239 mg/dL (70-110)
[2018-06-14 10:26] VITALS: BP 129/77; BP 145/71; PULSE 84; PULSE 90; RESP 18; TEMP 36.2; TEMP 36.3
[2018-06-14 11:51] LABS: Bedside Glucose 155 mg/dL (70-110)
--- NOTE | 2018-06-14 12:16 | HBO.PN.PCM_ITS ---
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 wet cold foot DEL BARRIOS is a 58 year old currently undergoing hyperbaric oxygen therapy for right foot diabetic ulcer with necrosis of bone, Brooks grade 3, wet cold foot.. Progress: The patient appears to be tolerating hyperbaric oxygen therapy well. Today's session represents the 72nd such session of hyperbaric oxygen therapy. Tolerance of hyperbaric oxygen therapy: Hyperbaric oxygen therapy was ad ministered as per the facility's protocol. The patient tolerated hyperbaric oxygen therapy well, without complaints or complications. Upon emergence from the hyperbaric chamber the patient's vital signs remained stable. He was discharged in good condition. 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 (Chronic) Ulcer of left lower extremity with fat layer exposed (Chronic) Ulcer of right lower extremity with fat layer exposed (Chronic) Ulcer of left lower extremity, limited to breakdown of skin (Chronic) Ulcer of left lower extremity, limited to breakdown of skin (Chronic) Non-pressure chronic ulcer of other part of right foot with fat layer exposed (Chronic) Complete below knee amputation of left lower extremity (Chronic) Ulcer of right foot with necrosis of muscle (Chronic) Ulcer of right foot with fat layer exposed (Chronic) 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) Delayed wound healing (Chronic) Malnutrition (Chronic) Venous insufficiency (Chronic) Lymphedema (Chronic) Edema of both legs (Chronic) GERD (gastroesophageal reflux disease) (Chronic) Hypertension (Chronic) Hyperlipemia (Chronic) Morbid obesity with BMI of 45.0-49.9, adult (Chronic) Hyperlipidemia associated with type 2 diabetes mellitus (Chronic) 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 Allergies/Adverse Reactions: Allergies bee venom protein (honey bee) Allergy (Verified 12/13/17 09:30) Swelling metronidazole [From Flagyl] Allergy (Verified 12/13/17 09:30) Itching Home Medications: Ambulatory Orders Medication Instructions Recorded Atorvastatin Calcium [Lipitor] 10 mg PO QHS 01/08/17 Brimonidine Tartrate 0.2% 1 drop EACH EYE BID 01/08/17 [Brimonidine 0.2% 5Ml Bottle] Ergocalciferol [Vitamin D] 50,000 unit PO FR 01/08/17 Gabapentin [Neurontin] 1,600 mg PO QHS 01/08/17 Gabapentin [Neurontin] 600 mg PO DAILY 01/08/17 Insulin U-500 [Humulin R U-500 105 units SC DINNER 01/08/17 ([facility])] Insulin U-500 [Humulin R U-500 105 units SC LUNCH 01/08/17 ([facility])] Insulin U-500 [Humulin R U-500 160 units SC BREAKFAST 01/08/17 ([facility])] Latanoprost 0.005% [Xalatan 1 drop EACH EYE QHS 01/08/17 Opthalmic] Losartan Potassium [Cozaar] 50 mg PO DAILY 01/08/17 Nebivolol HCl [Bystolic (Beta 10 mg PO DAILY 01/08/17 Akira)] Omeprazole [Prilosec] 40 mg PO DAILY 01/08/17 Acetaminophen [Tylenol Tablet] 650 mg PO Q6H PRN PRN tablet 09/07/17 Clopidogrel Bisulfate [Plavix] 75 mg PO DAILY 09/07/17 Menthol/Lanolin/Calamine/Znox 1 applic TOPICAL 0600,2200 tube 09/21/17 [Calmoseptine Ointment] Nutritional Supplement [Madhu - 1 packet PO BIDCM #60 packet 09/21/17 [place] FLAVOR] Nystatin Powder [Mycostatin Powder] 1 applic TOPICAL 0600,2200 bottle 09/21/17 Ferrous Sulfate [Iron] 325 mg PO BID 10/14/17 Clindamycin HCl 300 mg PO [id number] #40 cap 12/13/17 Maternal Family History: Diabetes Paternal Family History: Hypertension Sibling Family History: Diabetes Smoking Status: Former smoker Physical Exam Vital Signs Temp Pulse Resp BP 97.3 F L 90 18 145/71 H 06/14/18 10:26 06/14/18 10:26 06/14/18 10:26 06/14/18 10:26 General: Alert, Oriented x3, Cooperative, No apparent distress, Well developed, Well nourished HEENT: Atraumatic, PERRLA, EOMI, Normocephalic Lungs: Normal air movement Psych/Mental Status: Normal Affect, Appropriate, Alert and oriented to time, place, person, mood and affect Assessment/Plan Active Problems 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
[2018-06-15 08:26] VITALS: BP 164/74; PULSE 91; RESP 18; TEMP 35.7
--- NOTE | 2018-06-15 09:23 | PCM.WC.PN ---
(1) Other specified peripheral vascular diseases Status: Suspected Current Visit: Yes Code(s): I73.89 - Other specified peripheral vascular diseases (2) Cold-induced injury Status: Chronic Current Visit: Yes Code(s): T69.9XXA - Effect of reduced temperature, unspecified, initial encounter (3) Chronic ulcer of right foot with fat layer exposed Status: Chronic Current Visit: Yes Code(s): L97.512 - Non-pressure chronic ulcer of other part of right foot with fat layer exposed (4) Ulcer of left lower extremity with fat layer exposed Status: Chronic Current Visit: Yes Code(s): L97.922 - Non-pressure chronic ulcer of unspecified part of left lower leg with fat layer exposed (5) BKA stump complication Status: Chronic Current Visit: Yes Code(s): T87.9 - Unspecified complications of amputation stump (6) Type 2 diabetes mellitus with diabetic polyneuropathy Status: Chronic Current Visit: Yes Code(s): E11.42 - Type 2 diabetes mellitus with diabetic polyneuropathy (7) Delayed wound healing Status: Chronic Current Visit: Yes Code(s): T14.8 - Other injury of unspecified body region (8) Malnutrition Status: Chronic Current Visit: Yes Code(s): E46 - Unspecified protein-calorie malnutrition (9) Venous insufficiency Status: Chronic Current Visit: Yes Code(s): I87.2 - Venous insufficiency (chronic) (peripheral) (10) Lymphedema Status: Chronic Current Visit: Yes Code(s): I89.0 - Lymphedema, not elsewhere classified (11) Edema of both legs Status: Chronic Current Visit: Yes Code(s): R60.0 - Localized edema Type of Wound Date of Service: 06/15/18 Chief Complaint: 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 History of Wound: 58-year-old white male returns to clinic for follow-up of bilateral leg ulcers and right foot ulcers. He denies fever, chill, nausea, vomiting, loss of appetite. He had multiple advanced wound care product applications. He continues with hyperbaric oxygen therapy sessions. He presents in a wheelchair today. He denies odors or redness. He denies getting his foot wet again. Progress of Wound: Stable right toe and heel areas. Left stump site ulcer stable - Physical Exam Vital Signs Temp Pulse Resp BP 96.2 F L 91 18 164/74 H 06/15/18 08:26 06/15/18 08:26 06/15/18 08:26 06/15/18 08:26 General: Alert, Oriented x3, Cooperative Extremities: Capillary Refill Less than 3 Seconds - Right digits 1 and 2 and delayed to the fourth toe, No Calf Tenderness, Diminished Peripheral Pulses, Edema - Bilateral lower extremities, lymphedema, - - Forefoot cool to touch and moist right Skin: Ulcer/ Wound - No purulence, erythema hamstring, odor, necrosis, or acute signs of infection. No deep tissue exposure noted., - - Interdigital maceration right foot. Sub-hemorrhagic tissue noted to the left below-knee amputation stump site Wound Measurements and Assessment WC - Nurse 1 - General Ulcer Measurement Start: 06/08/18 08:16 Freq: Status: Active Protocol: Activity Type Activity Date Activity User E-Sign Co-Sign Detail Recorded Client Recorded Date Recorded By Document 06/15/18 08:26 RB [id number] 06/15/18 08:30 RB 06/15/18 08:26 Wound Center Nurse 1 [Ulcer Assessment] #22 left stump -Combined with other wound No -Current Size (cm) - Length 6 -Current Size (cm) - Width 7 -Current Size (cm) - Depth 0.1 -Total Square Cm 42 -Tunneling No -Undermining/Tunneling No -Circular Undermining No -Classification - Thickness Full Thickness without Exposed Support Structure -Exudate Amt Medium (34-66%) -Exudate Type Serosanguineous -Wound Margin Distinct, Outline Attached -Granulation Amt Large (67-100%) -Granulation Quality [place] -Slough/Fibrin Yes -Necrosis Amt Small (1-33%) -Necrotic Tissue Type Adherent Slough -Structure Exposed N/A -Texture (Martha-wound Skin Appearance) Friable -Moisture (Martha-wound Skin Appearance Maceration ) -Color (Martha-wound Skin Appearance) Assessed -Temperature (Martha-wound Skin No Abnormality Appearance) (Pt Warm) -Tenderness on Palpation (Martha-wound No Skin Appearance) -Ulcer Cleansing Wound Cleanser -Foul Odor after Cleansing No -Anesthetic Used 4% Lidocaine Solution #13 R Med Heel -Combined with other wound No -Current Size (cm) - Length 1.5 -Current Size (cm) - Width 1.7 -Current Size (cm) - Depth 0.2 -Total Square Cm 2.55 -Tunneling No -Undermining/Tunneling No -Circular Undermining No -Exudate Amt Small (1-33%) -Exudate Type Serosanguineous -Wound Margin Thickened -Granulation Amt Small (1-33%) -Granulation Quality [place] -Slough/Fibrin Yes -Necrosis Amt Medium (34-66%) -Necrotic Tissue Type Adherent Slough -Structure Exposed N/A -Texture (Martha-wound Skin Appearance) Callus -Moisture (Martha-wound Skin Appearance Assessed ) Maceration -Color (Martha-wound Skin Appearance) Assessed -Temperature (Martha-wound Skin No Abnormality Appearance) (Pt Warm) -Tenderness on Palpation (Martha-wound No Skin Appearance) -Ulcer Cleansing Wound Cleanser -Foul Odor after Cleansing No -Anesthetic Used 4% Lidocaine Solution #21 Right Foot-Toes w/Metatarsal Head circumfrential -Combined with other wound No -Current Size (cm) - Length 7.5 -Current Size (cm) - Width 13 -Current Size (cm) - Depth 0.1 -Total Square Cm 97.5 -Tunneling No -Undermining/Tunneling No -Circular Undermining No -Exudate Amt Large (67-100%) -Exudate Type Serosanguineous -Wound Margin Distinct, Outline Attached -Granulation Amt Medium (34-66%) -Granulation Quality [place] -Slough/Fibrin Yes -Necrosis Amt Medium (34-66%) -Necrotic Tissue Type Adherent Slough -Structure Exposed N/A -Texture (Martha-wound Skin Appearance) Assessed -Moisture (Martha-wound Skin Appearance Maceration ) Weeping -Color (Martha-wound Skin Appearance) Assessed -Temperature (Martha-wound Skin No Abnormality Appearance) (Pt Warm) -Tenderness on Palpation (Martha-wound No Skin Appearance) -Ulcer Cleansing Wound Cleanser -Foul Odor after Cleansing No -Anesthetic Used 4% Lidocaine Solution [Edema Assessment] -Lower Limb Edema Present Yes -Right Calf (cm) 37.5 -Right Ankle (cm) 28 -Left Calf (cm) 44 WC - Nurse 2 - General Ulcer CM Notes Start: 06/08/18 08:16 Freq: Status: Active Protocol: Activity Type Activity Date Activity User E-Sign Co-Sign Detail Recorded Client Recorded Date Recorded By Document 06/15/18 09:01 ANUP [id number] 06/15/18 09:02 06/15/18 09:01 Wound Center Nurse 2 [Procedure/Treatment] #22 left stump -Correct Patient No -Correct Side, Site, Position No -Correct Procedure No -Procedure Performed No #13 R Med Heel -Time 09:01 -Correct Patient Yes -Correct Side, Site, Position Yes -Correct Procedure Yes -Procedure Performed Yes -Type of Procedure Debridement -Clinical Debridement Subcutaneous -Post Debridement Size (cm) - Length 1.6 -Post Debridement Size (cm) - Width 1.7 -Post Debridement Size (cm) - Depth 0.2 -Total Square Cm 2.72 -Wound/Ulcer Outcome Not Healed -Ulcer Cleansing Rinsed/ Irrigated with Saline -Foul Odor after Cleansing No -Bioengineered Tissue No -Bleeding Controlled with Pressure -Offloading No -Treatment Response Procedure Tolerated Well #21 Right Foot-Toes w/Metatarsal Head circumfrential -Time 09:01 -Correct Patient Yes -Correct Side, Site, Position Yes -Correct Procedure Yes -Procedure Performed Yes -Type of Procedure Debridement -Clinical Debridement Subcutaneous -Post Debridement Size (cm) - Length 7.5 -Post Debridement Size (cm) - Width 13.1 -Post Debridement Size (cm) - Depth 0.1 -Total Square Cm 98.25 -Wound/Ulcer Outcome Not Healed -Ulcer Cleansing Rinsed/ Irrigated with Saline -Foul Odor after Cleansing No -Bioengineered Tissue No -Bleeding Controlled with Pressure -Offloading No -Treatment Response Procedure Tolerated Well [See Physician Procedure note for Specifics] Pain Scale: 0-10 Numeric [Pain] -Is Patient Pain Free? Yes Musculoskeletal: No Tenderness to Palpation of Joints or Extremities, Muscle Wasting, - - Left below-knee amputation. Lymphedema right foot Neurological: - - Lack of epicritic sensation to light touch with neuropathy Psych/Mental Status: Normal Affect, Appropriate Debridement Note Post-Debridement Measurements/Treatment WC - Nurse 2 - General Ulcer CM Notes Start: 06/08/18 08:16 Freq: Status: Active Protocol: Activity Type Activity Date Activity User E-Sign Co-Sign Detail Recorded Client Recorded Date Recorded By Document 06/08/18 08:56 DL [id number] 06/08/18 08:58 DL Document 06/15/18 09:01 [id number] 06/15/18 09:02 06/08/18 06/15/18 08:56 09:01 Wound Center Nurse 2 #22 left stump -Correct Patient No No -Correct Side, Site, Position No No -Correct Procedure No No -Procedure Performed No No #13 R Med Heel -Time 08:57 09:01 -Correct Patient Yes Yes -Correct Side, Site, Position Yes Yes -Correct Procedure Yes Yes -Procedure Performed Yes Yes -Type of Procedure Debridement Debridement -Clinical Debridement Subcutaneous Subcutaneous -Post Debridement Size (cm) - Length 1.1 1.6 -Post Debridement Size (cm) - Width 1.3 1.7 -Post Debridement Size (cm) - Depth 0.1 0.2 -Total Square Cm 1.43 2.72 -Wound/Ulcer Outcome Not Healed Not Healed -Ulcer Cleansing Rinsed/ Rinsed/ Irrigated with Irrigated with Saline Saline -Foul Odor after Cleansing No No -Bioengineered Tissue No No -Bleeding Controlled with Pressure Pressure -Offloading No No -Treatment Response Procedure Procedure Tolerated Well Tolerated Well #21 Right Foot-Toes w/Metatarsal Head circumfrential -Time 09:01 -Correct Patient No Yes -Correct Side, Site, Position No Yes -Correct Procedure No Yes -Procedure Performed No Yes -Type of Procedure Debridement -Clinical Debridement Subcutaneous -Post Debridement Size (cm) - Length 7.5 -Post Debridement Size (cm) - Width 13.1 -Post Debridement Size (cm) - Depth 0.1 -Total Square Cm 98.25 -Wound/Ulcer Outcome Not Healed -Ulcer Cleansing Rinsed/ Irrigated with Saline -Foul Odor after Cleansing No -Bioengineered Tissue No -Bleeding Controlled with Pressure -Offloading No -Treatment Response Procedure Tolerated Well Pain Scale: 0-10 Numeric Is Patient Pain Free? Yes Yes Wound debrided: heel Laterality: Right Wound Grade/Stage: grade 3 Type of Debridement: Excisional debridement Anesthesia Used: 5% Lidocaine Gel Depth: in the subcutaneous layer Percentage of wound debrided: 100 Instrument Used: #15 blade Tissue Removed: fibrous, devitalized subcutaneous, biofilm, slough Severity: Fat Layer Exposed Amount of bleeding with debridement: Mild Bleeding Controlled with: Pressure Patient tolerated procedure well - Additional Wound Wound debrided: toes Laterality: Right Wound Grade/Stage: grade 1 Type of Debridement: Excisional debridement Anesthesia Used: 5% Lidocaine Gel Depth: in the subcutaneous layer Percentage of wound debrided: 60 Instrument Used: #15 blade Tissue Removed: fibrous, devitalized subcutaneous, biofilm, slough Severity: Fat Layer Exposed Amount of bleeding with debridement: Mild Bleeding Controlled with: Pressure Patient tolerated procedure: Patient tolerated procedure well Assessment/Plan Active Problems Cold-induced injury (Chronic) Chronic ulcer of right foot with fat layer exposed (Chronic) Ulcer of left lower extremity with fat layer exposed (Chronic) Maceration of skin (Acute) BKA stump complication (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 right heel ulcer muscle involved and exposed fascia without infection noted today (previous grade 3); s/p surgical debridement and application of advance wound care products (amniofil and epicord). Right foot hypothermia / small vessel disease. 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 Lymphedema. Chronic lower extremity edema and venous insufficiency. Morbid obesity. Type 2 diabetes uncontrolled with peripheral neuropathy. CKD. Hypertension. Malnutrition. Delayed wound healing. Nonadherence to treatment plan Plan: I reviewed and discussed his case debridement done (right heel and forefoot only) as documented above in the clinical panel; this procedure was well tolerated. I applied GEOLID and he is advised to change this every 1-2 days with home health assistance. Continue compression left with 3M2L and tubigrip only to right lower extremity. Reapplication of 3 M2 L will be considered after vascular studies are complete. Optimal blood sugar contol. We discussed compliance and I recommend elevating only 75% of the time. To avoid trauma to the right foot as he sustained last week. Continue protein suppplements and increased protein in diet. To continue hyperbaric oxygen therapy as scheduled on complaint basis. I encouraged continued use. I also recommend a lymphedema clinic. He went approximately 3 years ago and found this to be very helpful. He no longer has his thigh-high compression garments that were arranged for him during this last session. There is a lymphedema clinic in [place] and his information was sent over. They can only see him once he is d/c from home health; this is noted. Hypothermia prevention, risks, complications and education was discussed today. He was advised to strictly cover his foot and to avoid cold or moisture exposure while outside. He understands he is at high risk for limb loss due to frostbite at this already compromised limb site. Additional care was taken to apply underlying Tubigrip and sock and dressing protection layers today. He was urged to be compliant with this prior to leaving his home in between clinic sessions. I am concerned about his status change. His clinical appearance of his right foot may be a result of moisture and cold exposure however would like to screen him for peripheral vascular disease status change. His noninvasive vascular studies were reviewed without gross abnormalities to the ankle level. I am suspecting a small vessel disease component and due to his status change recommend a vascular surgery referral to Dr. Nixon. Input will be greatly appreciated. He was reassured no anna necrosis or tissue loss was noted and his capillary fill time was noted to the first and second toes and delayed to the fourth toe. Follow up in 1 week with at the wound healing center or call sooner if he has any questions or concerns.
--- NOTE | 2018-06-15 09:35 | PN.PCM_ITS ---
(1) Other specified peripheral vascular diseases Status: Suspected Current Visit: Yes Code(s): I73.89 - Other specified peripheral vascular diseases (2) Cold-induced injury Status: Chronic Current Visit: Yes Code(s): T69.9XXA - Effect of reduced temperature, unspecified, initial encounter (3) Chronic ulcer of right foot with fat layer exposed Status: Chronic Current Visit: Yes Code(s): L97.512 - Non-pressure chronic ulcer of other part of right foot with fat layer exposed (4) Ulcer of left lower extremity with fat layer exposed Status: Chronic Current Visit: Yes Code(s): L97.922 - Non-pressure chronic ulcer of unspecified part of left lower leg with fat layer exposed (5) BKA stump complication Status: Chronic Current Visit: Yes Code(s): T87.9 - Unspecified complications of amputation stump (6) Type 2 diabetes mellitus with diabetic polyneuropathy Status: Chronic Current Visit: Yes Code(s): E11.42 - Type 2 diabetes mellitus with diabetic polyneuropathy (7) Delayed wound healing Status: Chronic Current Visit: Yes Code(s): T14.8 - Other injury of unspecified body region (8) Malnutrition Status: Chronic Current Visit: Yes Code(s): E46 - Unspecified protein- calorie malnutrition (9) Venous insufficiency Status: Chronic Current Visit: Yes Code(s): I87.2 - Venous insufficiency (chronic) (peripheral) (10) Lymphedema Status: Chronic Current Visit: Yes Code(s): I89.0 - Lymphedema, not elsewhere classified (11) Edema of both legs Status: Chronic Current Visit: Yes Code(s): R60.0 - Localized edema Type of Wound Date of Service: 06/15/18 Chief Complaint: 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 History of Wound: 58-year-old white male returns to clinic for follow-up of bilateral leg ulcers and right foot ulcers. He denies fever, chill, nausea, vomiting, loss of appetite. He had multiple advanced wound care product applications. He continues with hyperbaric oxygen therapy sessions. He presents in a wheelchair today. He denies odors or redness. He denies getting his foot wet again. Progress of Wound: Stable right toe and heel areas. Left stump site ulcer stable - Physical Exam Vital Signs Temp Pulse Resp BP 96.2 F L 91 18 164/74 H 06/15/18 08:26 06/15/18 08:26 06/15/18 08:26 06/15/18 08:26 General: Alert, Oriented x3, Cooperative Extremities: Capillary Refill Less than 3 Seconds - Right digits 1 and 2 and delayed to the fourth toe, No Calf Tenderness, Diminished Peripheral Pulses, Edema - Bilateral lower extremities, lymphedema, - - Forefoot cool to touch and moist right Skin: Ulcer/ Wound - No purulence, erythema hamstring, odor, necrosis, or acute signs of infection. No deep tissue exposure noted., - - Interdigital maceration right foot. Sub-hemorrhagic tissue noted to the left below-knee amputation stump site Wound Measurements and Assessment WC - Nurse 1 - General Ulcer Measurement Start: 06/08/18 08:16 Freq: Status: Active Protocol: Activity Type Activity Date Activity User E-Sign Co-Sign Detail Recorded Client Recorded Date Recorded By Document 06/15/18 08:26 RB [id number] 06/15/18 08:30 RB 06/15/18 08:26 Wound Center Nurse 1 [Ulcer Assessment] #22 left stump -Combined with other wound No -Current Size (cm) - Length 6 -Current Size (cm) - Width 7 -Current Size (cm) - Depth 0.1 -Total Square Cm 42 -Tunneling No -Undermining/Tunneling No -Circular Undermining No -Classification - Thickness Full Thickness without Exposed Support Structure -Exudate Amt Medium (34-66%) -Exudate Type Serosanguineous -Wound Margin Distinct, Outline Attached -Granulation Amt Large (67-100%) -Granulation Quality [place] -Slough/Fibrin Yes -Necrosis Amt Small (1-33%) -Necrotic Tissue Type Adherent Slough -Structure Exposed N/A -Texture (Martha-wound Skin Appearance) Friable -Moisture (Matrha-wound Skin Appearance Maceration ) -Color (Martha-wound Skin Appearance) Assessed -Temperature (Martha-wound Skin No Abnormality Appearance) (Pt Warm) -Tenderness on Palpation (Martha-wound No Skin Appearance) -Ulcer Cleansing Wound Cleanser -Foul Odor after Cleansing No -Anesthetic Used 4% Lidocaine Solution #13 R Med Heel -Combined with other wound No -Current Size (cm) - Length 1.5 -Current Size (cm) - Width 1.7 -Current Size (cm) - Depth 0.2 -Total Square Cm 2.55 -Tunneling No -Undermining/Tunneling No -Circular Undermining No -Exudate Amt Small (1-33%) -Exudate Type Serosanguineous -Wound Margin Thickened -Granulation Amt Small (1-33%) -Granulation Quality [place] -Slough/Fibrin Yes -Necrosis Amt Medium (34-66%) -Necrotic Tissue Type Adherent Slough -Structure Exposed N/A -Texture (Martha-wound Skin Appearance) Callus -Moisture (Martha-wound Skin Appearance Assessed ) Maceration -Color (Martha-wound Skin Appearance) Assessed -Temperature (Martha-wound Skin No Abnormality Appearance) (Pt Warm) -Tenderness on Palpation (Martha-wound No Skin Appearance) -Ulcer Cleansing Wound Cleanser -Foul Odor after Cleansing No -Anesthetic Used 4% Lidocaine Solution #21 Right Foot-Toes w/Metatarsal Head circumfrential -Combined with other wound No -Current Size (cm) - Length 7.5 -Current Size (cm) - Width 13 -Current Size (cm) - Depth 0.1 -Total Square Cm 97.5 -Tunneling No -Undermining/Tunneling No -Circular Undermining No -Exudate Amt Large (67-100%) -Exudate Type Serosanguineous -Wound Margin Distinct, Outline Attached -Granulation Amt Medium (34-66%) -Granulation Quality [place] -Slough/Fibrin Yes -Necrosis Amt Medium (34-66%) -Necrotic Tissue Type Adherent Slough -Structure Exposed N/A -Texture (Martha-wound Skin Appearance) Assessed -Moisture (Martha-wound Skin Appearance Maceration ) Weeping -Color (Martha-wound Skin Appearance) Assessed -Temperature (Martha-wound Skin No Abnormality Appearance) (Pt Warm) -Tenderness on Palpation (Martha-wound No Skin Appearance) -Ulcer Cleansing Wound Cleanser -Foul Odor after Cleansing No -Anesthetic Used 4% Lidocaine Solution [Edema Assessment] -Lower Limb Edema Present Yes -Right Calf (cm) 37.5 -Right Ankle (cm) 28 -Left Calf (cm) 44 WC - Nurse 2 - General Ulcer CM Notes Start: 06/08/18 08:16 Freq: Status: Active Protocol: Activity Type Activity Date Activity User E-Sign Co-Sign Detail Recorded Client Recorded Date Recorded By Document 06/15/18 09:01 ANUP [id number] 06/15/18 09:02 06/15/18 09:01 Wound Center Nurse 2 [Procedure/Treatment] #22 left stump -Correct Patient No -Correct Side, Site, Position No -Correct Procedure No -Procedure Performed No #13 R Med Heel -Time 09:01 -Correct Patient Yes -Correct Side, Site, Position Yes -Correct Procedure Yes -Procedure Performed Yes -Type of Procedure Debridement -Clinical Debridement Subcutaneous -Post Debridement Size (cm) - Length 1.6 -Post Debridement Size (cm) - Width 1.7 -Post Debridement Size (cm) - Depth 0.2 -Total Square Cm 2.72 -Wound/Ulcer Outcome Not Healed -Ulcer Cleansing Rinsed/ Irrigated with Saline -Foul Odor after Cleansing No -Bioengineered Tissue No -Bleeding Controlled with Pressure -Offloading No -Treatment Response Procedure Tolerated Well #21 Right Foot-Toes w/Metatarsal Head circumfrential -Time 09:01 -Correct Patient Yes -Correct Side, Site, Position Yes -Correct Procedure Yes -Procedure Performed Yes -Type of Procedure Debridement -Clinical Debridement Subcutaneous -Post Debridement Size (cm) - Length 7.5 -Post Debridement Size (cm) - Width 13.1 -Post Debridement Size (cm) - Depth 0.1 -Total Square Cm 98.25 -Wound/Ulcer Outcome Not Healed -Ulcer Cleansing Rinsed/ Irrigated with Saline -Foul Odor after Cleansing No -Bioengineered Tissue No -Bleeding Controlled with Pressure -Offloading No -Treatment Response Procedure Tolerated Well [See Physician Procedure note for Specifics] Pain Scale: 0-10 Numeric [Pain] -Is Patient Pain Free? Yes Musculoskeletal: No Tenderness to Palpation of Joints or Extremities, Muscle Wasting, - - Left below-knee amputation. Lymphedema right foot Neurological: - - Lack of epicritic sensation to light touch with neuropathy Psych/Mental Status: Normal Affect, Appropriate Debridement Note Post-Debridement Measurements/Treatment WC - Nurse 2 - General Ulcer CM Notes Start: 06/08/18 08:16 Freq: Status: Active Protocol: Activity Type Activity Date Activity User E-Sign Co-Sign Detail Recorded Client Recorded Date Recorded By Document 06/08/18 08:56 DL [id number] 06/08/18 08:58 DL Document 06/15/18 09:01 [id number] 06/15/18 09:02 06/08/18 06/15/18 08:56 09:01 Wound Center Nurse 2 #22 left stump -Correct Patient No No -Correct Side, Site, Position No No -Correct Procedure No No -Procedure Performed No No #13 R Med Heel -Time 08:57 09:01 -Correct Patient Yes Yes -Correct Side, Site, Position Yes Yes -Correct Procedure Yes Yes -Procedure Performed Yes Yes -Type of Procedure Debridement Debridement -Clinical Debridement Subcutaneous Subcutaneous -Post Debridement Size (cm) - Length 1.1 1.6 -Post Debridement Size (cm) - Width 1.3 1.7 -Post Debridement Size (cm) - Depth 0.1 0.2 -Total Square Cm 1.43 2.72 -Wound/Ulcer Outcome Not Healed Not Healed -Ulcer Cleansing Rinsed/ Rinsed/ Irrigated with Irrigated with Saline Saline -Foul Odor after Cleansing No No -Bioengineered Tissue No No -Bleeding Controlled with Pressure Pressure -Offloading No No -Treatment Response Procedure Procedure Tolerated Well Tolerated Well #21 Right Foot-Toes w/Metatarsal Head circumfrential -Time 09:01 -Correct Patient No Yes -Correct Side, Site, Position No Yes -Correct Procedure No Yes -Procedure Performed No Yes -Type of Procedure Debridement -Clinical Debridement Subcutaneous -Post Debridement Size (cm) - Length 7.5 -Post Debridement Size (cm) - Width 13.1 -Post Debridement Size (cm) - Depth 0.1 -Total Square Cm 98.25 -Wound/Ulcer Outcome Not Healed -Ulcer Cleansing Rinsed/ Irrigated with Saline -Foul Odor after Cleansing No -Bioengineered Tissue No -Bleeding Controlled with Pressure -Offloading No -Treatment Response Procedure Tolerated Well Pain Scale: 0-10 Numeric Is Patient Pain Free? Yes Yes Wound debrided: heel Laterality: Right Wound Grade/Stage: grade 3 Type of Debridement: Excisional debridement Anesthesia Used: 5% Lidocaine Gel Depth: in the subcutaneous layer Percentage of wound debrided: 100 Instrument Used: #15 blade Tissue Removed: fibrous, devitalized subcutaneous, biofilm, slough Severity: Fat Layer Exposed Amount of bleeding with debridement: Mild Bleeding Controlled with: Pressure Patient tolerated procedure well - Additional Wound Wound debrided: toes Laterality: Right Wound Grade/Stage: grade 1 Type of Debridement: Excisional debridement Anesthesia Used: 5% Lidocaine Gel Depth: in the subcutaneous layer Percentage of wound debrided: 60 Instrument Used: #15 blade Tissue Removed: fibrous, devitalized subcutaneous, biofilm, slough Severity: Fat Layer Exposed Amount of bleeding with debridement: Mild Bleeding Controlled with: Pressure Patient tolerated procedure: Patient tolerated procedure well Assessment/Plan Active Problems Cold-induced injury (Chronic) Chronic ulcer of right foot with fat layer exposed (Chronic) Ulcer of left lower extremity with fat layer exposed (Chronic) Maceration of skin (Acute) BKA stump complication (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 right heel ulcer muscle involved and exposed fascia without infection noted today (previous grade 3); s/p surgical debridement and application of advance wound care products (amniofil and epicord). Right foot hypothermia / small vessel disease. 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 Lymphedema. Chronic lower extremity edema and venous insufficiency. Morbid obesity. Type 2 diabetes uncontrolled with peripheral neuropathy. CKD. Hypertension. Malnutrition. Delayed wound healing. Nonadherence to treatment plan Plan: I reviewed and discussed his case debridement done (right heel and forefoot only) as documented above in the clinical panel; this procedure was well tolerated. I applied PlayGiga and he is advised to change this every 1- 2 days with home health assistance. Continue compression left with 3M2L and tubigrip only to right lower extremity. Reapplication of 3 M2 L will be considered after vascular studies are complete. Optimal blood sugar contol. We discussed compliance and I recommend elevating only 75% of the time. To avoid trauma to the right foot as he sustained last week. Continue protein suppplements and increased protein in diet. To continue hyperbaric oxygen therapy as scheduled on complaint basis. I encouraged continued use. I also recommend a lymphedema clinic. He went approximately 3 years ago and found this to be very helpful. He no longer has his thigh-high compression garments that were arranged for him during this last session. There is a lymphedema clinic in [place] and his information was sent over. They can only see him once he is d/c from home health; this is noted. Hypothermia prevention, risks, c omplications and education was discussed today. He was advised to strictly cover his foot and to avoid cold or moisture exposure while outside. He understands he is at high risk for limb loss due to frostbite at this already compromised limb site. Additional care was taken to apply underlying Tubigrip and sock and dressing protection layers today. He was urged to be compliant with this prior to leaving his home in between clinic sessions. I am concerned about his status change. His clinical appearance of his right foot may be a result of moisture and cold exposure however would like to screen him for peripheral vascular disease status change. His noninvasive vascular studies were reviewed without gross abnormalities to the ankle level. I am suspecting a small vessel disease component and due to his status change recommend a vascular surgery referral to Dr. Nixon. Input will be greatly appreciated. He was reassured no anna necrosis or tissue loss was noted and his capillary fill time was noted to the first and second toes and delayed to the fourth toe. Follow up in 1 week with at the wound healing center or call sooner if he has any questions or concerns.
[2018-06-15 09:45] LABS: Bedside Glucose 276 mg/dL (70-110)
[2018-06-15 10:06] LABS: Bedside Glucose 265 mg/dL (70-110)
[2018-06-15 10:41] LABS: Bedside Glucose 244 mg/dL (70-110)
--- NOTE | 2018-06-15 10:54 | PCM.HBO.PN ---
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 DEL BARRIOS is a 58 year old currently undergoing hyperbaric oxygen therapy for right foot diabetic ulcer with necrosis of bone, Brooks grade 3, wet cold foot.. Progress: The patient appears to be tolerating hyperbaric oxygen therapy well. Today's session represents the 73rd such session of hyperbaric oxygen therapy. Tolerance of hyperbaric oxygen therapy: Hyperbaric oxygen therapy was administered as per the facility's protocol. The patient tolerated hyperbaric oxygen therapy well, without complaints or complications. Upon emergence from the hyperbaric chamber the patient's vital signs remained stable. He was discharged in good condition. 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 (Chronic) Ulcer of left lower extremity with fat layer exposed (Chronic) Ulcer of right lower extremity with fat layer exposed (Chronic) Ulcer of left lower extremity, limited to breakdown of skin (Chronic) Ulcer of left lower extremity, limited to breakdown of skin (Chronic) Non-pressure chronic ulcer of other part of right foot with fat layer exposed (Chronic) Complete below knee amputation of left lower extremity (Chronic) Ulcer of right foot with necrosis of muscle (Chronic) Ulcer of right foot with fat layer exposed (Chronic) 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) Delayed wound healing (Chronic) Malnutrition (Chronic) Venous insufficiency (Chronic) Lymphedema (Chronic) Edema of both legs (Chronic) GERD (gastroesophageal reflux disease) (Chronic) Hypertension (Chronic) Hyperlipemia (Chronic) Morbid obesity with BMI of 45.0-49.9, adult (Chronic) Hyperlipidemia associated with type 2 diabetes mellitus (Chronic) 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 Allergies/Adverse Reactions: Allergies bee venom protein (honey bee) Allergy (Verified 12/13/17 09:30) Swelling metronidazole [From Flagyl] Allergy (Verified 12/13/17 09:30) Itching Home Medications: Ambulatory Orders Medication Instructions Recorded Atorvastatin Calcium [Lipitor] 10 mg PO QHS 01/08/17 Brimonidine Tartrate 0.2% 1 drop EACH EYE BID 01/08/17 [Brimonidine 0.2% 5Ml Bottle] Ergocalciferol [Vitamin D] 50,000 unit PO FR 01/08/17 Gabapentin [Neurontin] 1,600 mg PO QHS 01/08/17 Gabapentin [Neurontin] 600 mg PO DAILY 01/08/17 Insulin U-500 [Humulin R U-500 105 units SC DINNER 01/08/17 ([facility])] Insulin U-500 [Humulin R U-500 105 units SC LUNCH 01/08/17 ([facility])] Insulin U-500 [Humulin R U-500 160 units SC BREAKFAST 01/08/17 ([facility])] Latanoprost 0.005% [Xalatan 1 drop EACH EYE QHS 01/08/17 Opthalmic] Losartan Potassium [Cozaar] 50 mg PO DAILY 01/08/17 Nebivolol HCl [Bystolic (Beta 10 mg PO DAILY 01/08/17 Akira)] Omeprazole [Prilosec] 40 mg PO DAILY 01/08/17 Acetaminophen [Tylenol Tablet] 650 mg PO Q6H PRN PRN tablet 09/07/17 Clopidogrel Bisulfate [Plavix] 75 mg PO DAILY 09/07/17 Menthol/Lanolin/Calamine/Znox 1 applic TOPICAL 0600,2200 tube 09/21/17 [Calmoseptine Ointment] Nutritional Supplement [Madhu - 1 packet PO BIDCM #60 packet 09/21/17 [facility]] Nystatin Powder [Mycostatin Powder] 1 applic TOPICAL 0600,2200 bottle 09/21/17 Ferrous Sulfate [Iron] 325 mg PO BID 10/14/17 Clindamycin HCl 300 mg PO [id number] #40 cap 12/13/17 Maternal Family History: Diabetes Paternal Family History: Hypertension Sibling Family History: Diabetes Smoking Status: Former smoker Physical Exam Vital Signs Temp Pulse Resp BP 96.2 F L 91 18 164/74 H 06/15/18 08:26 06/15/18 08:26 06/15/18 08:26 06/15/18 08:26 General: Alert, Cooperative HEENT: Atraumatic Lungs: Normal air movement Psych/Mental Status: Normal Affect Assessment/Plan Active Problems 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
[2018-06-15 11:36] VITALS: BP 118/53; BP 163/89; PULSE 78; PULSE 87; RESP 18; TEMP 36.2; TEMP 36.4
[2018-06-15 12:50] LABS: Bedside Glucose 171 mg/dL (70-110)
[2018-06-16 09:50] LABS: Bedside Glucose 283 mg/dL (70-110)
[2018-06-16 10:20] LABS: Bedside Glucose 266 mg/dL (70-110)
--- NOTE | 2018-06-16 10:25 | NURSING ---
Patient's blood sugar was tested at 0946 and registered at 283. Waited and re-tested the patient's blood sugar at 1018 which registered at 266. Patient voiced it was d/t him eating and taking his insulin an hour later than normal. Patient was unable to dive today d/t elevated blood sugar, per Dr. Valdes. Patient voiced understanding.
[2018-06-17 10:00] LABS: Bedside Glucose 187 mg/dL (70-110)
[2018-06-17 10:17] VITALS: BP 137/72; BP 158/81; PULSE 80; PULSE 87; RESP 16; RESP 18; TEMP 36; TEMP 36.4
[2018-06-17 12:06] LABS: Bedside Glucose 135 mg/dL (70-110)
--- NOTE | 2018-06-17 12:52 | HBO.PN.PCM_ITS ---
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 DEL BARRIOS is a 58 year old currently undergoing hyperbaric oxygen therapy for right foot diabetic ulcer with necrosis of bone, Brooks grade 3, wet cold foot.. Progress: The patient appears to be tolerating hyperbaric oxygen therapy well. Today's session represents the 74th such session of hyperbaric oxygen therapy. Tolerance of hyperbaric oxygen therapy: Hyperbaric oxygen therapy was administered as per the facility's protocol. The patient tolerated hyperbaric oxygen therapy well, without complaints or complications. Upon emergence from the hyperbaric chamber the patient's vital signs remained stable. He was discharged in good condition. 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 (Chronic) Ulcer of left lower extremity with fat layer exposed (Chronic) Ulcer of right lower extremity with fat layer exposed (Chronic) Ulcer of left lower extremity, limited to breakdown of skin (Chronic) Ulcer of left lower extremity, limited to breakdown of skin (Chronic) Non-pressure chronic ulcer of other part of right foot with fat layer exposed (Chronic) Complete below knee amputation of left lower extremity (Chronic) Ulcer of right foot with necrosis of muscle (Chronic) Ulcer of right foot with fat layer exposed (Chronic) 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) Delayed wound healing (Chronic) Malnutrition (Chronic) Venous insufficiency (Chronic) Lymphedema (Chronic) Edema of both legs (Chronic) GERD (gastroesophageal reflux disease) (Chronic) Hypertension (Chronic) Hyperlipemia (Chronic) Morbid obesity with BMI of 45.0-49.9, adult (Chronic) Hyperlipidemia associated with type 2 diabetes mellitus (Chronic) 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 Allergies/Adverse Reactions: Allergies bee venom protein (honey bee) Allergy (Verified 12/13/17 09:30) Swelling metronidazole [From Flagyl] Allergy (Verified 12/13/17 09:30) Itching Home Medications: Ambulatory Orders Medication Instructions Recorded Atorvastatin Calcium [Lipitor] 10 mg PO QHS 01/08/17 Brimonidine Tartrate 0.2% 1 drop EACH EYE BID 01/08/17 [Brimonidine 0.2% 5Ml Bottle] Ergocalciferol [Vitamin D] 50,000 unit PO FR 01/08/17 Gabapentin [Neurontin] 1,600 mg PO QHS 01/08/17 Gabapentin [Neurontin] 600 mg PO DAILY 01/08/17 Insulin U-500 [Humulin R U-500 105 units SC DINNER 01/08/17 ([facility])] Insulin U-500 [Humulin R U-500 105 units SC LUNCH 01/08/17 ([facility])] Insulin U-500 [Humulin R U-500 160 units SC BREAKFAST 01/08/17 ([facility])] Latanoprost 0.005% [Xalatan 1 drop EACH EYE QHS 01/08/17 Opthalmic] Losartan Potassium [Cozaar] 50 mg PO DAILY 01/08/17 Nebivolol HCl [Bystolic (Beta 10 mg PO DAILY 01/08/17 Akira)] Omeprazole [Prilosec] 40 mg PO DAILY 01/08/17 Acetaminophen [Tylenol Tablet] 650 mg PO Q6H PRN PRN tablet 09/07/17 Clopidogrel Bisulfate [Plavix] 75 mg PO DAILY 09/07/17 Menthol/Lanolin/Calamine/Znox 1 applic TOPICAL 0600,2200 tube 09/21/17 [Calmoseptine Ointment] Nutritional Supplement [Madhu - 1 packet PO BIDCM #60 packet 09/21/17 [facility]] Nystatin Powder [Mycostatin Powder] 1 applic TOPICAL 0600,2200 bottle 09/21/17 Ferrous Sulfate [Iron] 325 mg PO BID 10/14/17 Clindamycin HCl 300 mg PO [id number] #40 cap 12/13/17 Maternal Family History: Diabetes Paternal Family History: Hypertension Sibling Family History: Diabetes Smoking Status: Former smoker Physical Exam Vital Signs Temp Pulse Resp BP 96.8 F L 87 16 158/81 H 06/17/18 10:17 06/17/18 10:17 06/17/18 10:17 06/17/18 10:17 General: Alert, Oriented x3, Cooperative HEENT: Atraumatic, TM's Clear Lungs: Clear to auscultation, Normal air movement Cardiovascular: Regular rate, Regular Rhythm Psych/Mental Status: Normal Affect, Appropriate, Alert and oriented to time, place, person, mood and affect Assessment/Plan Active Problems 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
[2018-06-20 10:01] LABS: Bedside Glucose 240 mg/dL (70-110)
[2018-06-20 10:37] VITALS: BP 146/60; BP 153/87; PULSE 82; PULSE 95; RESP 16; RESP 18; TEMP 36.3; TEMP 36.4
--- NOTE | 2018-06-20 11:40 | PCM.HBO.PN ---
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 DEL BARRIOS is a 58 year old currently undergoing hyperbaric oxygen therapy for right foot diabetic ulcer with necrosis of bone, Brooks grade 3, wet cold foot.. Progress: The patient appears to be tolerating hyperbaric oxygen therapy well. Today's session represents the 75th such session of hyperbaric oxygen therapy. Tolerance of hyperbaric oxygen therapy: Hyperbaric oxygen therapy was administered as per the facility's protocol. The patient tolerated hyperbaric oxygen therapy well, without complaints or complications. Upon emergence from the hyperbaric chamber the patient's vital signs remained stable. He was discharged in good condition. 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 (Chronic) Ulcer of left lower extremity with fat layer exposed (Chronic) Ulcer of right lower extremity with fat layer exposed (Chronic) Ulcer of left lower extremity, limited to breakdown of skin (Chronic) Ulcer of left lower extremity, limited to breakdown of skin (Chronic) Non-pressure chronic ulcer of other part of right foot with fat layer exposed (Chronic) Complete below knee amputation of left lower extremity (Chronic) Ulcer of right foot with necrosis of muscle (Chronic) Ulcer of right foot with fat layer exposed (Chronic) 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) Delayed wound healing (Chronic) Malnutrition (Chronic) Venous insufficiency (Chronic) Lymphedema (Chronic) Edema of both legs (Chronic) GERD (gastroesophageal reflux disease) (Chronic) Hypertension (Chronic) Hyperlipemia (Chronic) Morbid obesity with BMI of 45.0-49.9, adult (Chronic) Hyperlipidemia associated with type 2 diabetes mellitus (Chronic) 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 Allergies/Adverse Reactions: Allergies bee venom protein (honey bee) Allergy (Verified 12/13/17 09:30) Swelling metronidazole [From Flagyl] Allergy (Verified 12/13/17 09:30) Itching Home Medications: Ambulatory Orders Medication Instructions Recorded Atorvastatin Calcium [Lipitor] 10 mg PO QHS 01/08/17 Brimonidine Tartrate 0.2% 1 drop EACH EYE BID 01/08/17 [Brimonidine 0.2% 5Ml Bottle] Ergocalciferol [Vitamin D] 50,000 unit PO FR 01/08/17 Gabapentin [Neurontin] 1,600 mg PO QHS 01/08/17 Gabapentin [Neurontin] 600 mg PO DAILY 01/08/17 Insulin U-500 [Humulin R U-500 105 units SC DINNER 01/08/17 ([facility])] Insulin U-500 [Humulin R U-500 105 units SC LUNCH 01/08/17 ([facility])] Insulin U-500 [Humulin R U-500 160 units SC BREAKFAST 01/08/17 ([facility])] Latanoprost 0.005% [Xalatan 1 drop EACH EYE QHS 01/08/17 Opthalmic] Losartan Potassium [Cozaar] 50 mg PO DAILY 01/08/17 Nebivolol HCl [Bystolic (Beta 10 mg PO DAILY 01/08/17 Akira)] Omeprazole [Prilosec] 40 mg PO DAILY 01/08/17 Acetaminophen [Tylenol Tablet] 650 mg PO Q6H PRN PRN tablet 09/07/17 Clopidogrel Bisulfate [Plavix] 75 mg PO DAILY 09/07/17 Menthol/Lanolin/Calamine/Znox 1 applic TOPICAL 0600,2200 tube 09/21/17 [Calmoseptine Ointment] Nutritional Supplement [Madhu - 1 packet PO BIDCM #60 packet 09/21/17 [facility]] Nystatin Powder [Mycostatin Powder] 1 applic TOPICAL 0600,2200 bottle 09/21/17 Ferrous Sulfate [Iron] 325 mg PO BID 10/14/17 Clindamycin HCl 300 mg PO [id number] #40 cap 12/13/17 Maternal Family History: Diabetes Paternal Family History: Hypertension Sibling Family History: Diabetes Smoking Status: Former smoker Physical Exam Vital Signs Temp Pulse Resp BP 97.6 F L 95 18 146/60 H 06/20/18 10:37 06/20/18 10:37 06/20/18 10:37 06/20/18 10:37 General: Alert, Oriented x3, Cooperative, No apparent distress HEENT: Atraumatic, TM's Clear Lungs: Clear to auscultation, Normal air movement Cardiovascular: Regular rate, PMI Normal Psych/Mental Status: Normal Affect, Appropriate, Alert and oriented to time, place, person, mood and affect Assessment/Plan Active Problems 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
[2018-06-20 12:16] LABS: Bedside Glucose 190 mg/dL (70-110)
[2018-06-23 09:20] LABS: Bedside Glucose 253 mg/dL (70-110)
--- NOTE | 2018-06-23 09:50 | NURSING ---
Patient did not dive today for his HBOTx. Per orders from Dr. Valdes, reason d/t his blood sugars and pt was complaining of slight left ear pain. At 0917 pt's blood sugar registered at 253, at 0929, his blood sugar registered at 223. D/t the significant drop, Dr. Valdes ordered to re-check blood sugar in 15 minutes. At 0945, pt registered at 218. Dr. Valdes advised pt to come back tomorrow and try again.
[2018-06-23 09:51] LABS: Bedside Glucose 223 mg/dL (70-110)
[2018-06-23 09:51] LABS: Bedside Glucose 218 mg/dL (70-110)
[2018-06-24 09:36] LABS: Bedside Glucose 200 mg/dL (70-110)
[2018-06-24 10:35] LABS: Bedside Glucose 179 mg/dL (70-110)
[2018-06-24 10:43] VITALS: BP 129/61; BP 165/80; PULSE 96; PULSE 99; RESP 16; RESP 18; TEMP 35.8; TEMP 36.4
--- NOTE | 2018-06-24 11:37 | PCM.HBO.PN ---
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 DEL BARRIOS is a 58 year old currently undergoing hyperbaric oxygen therapy for right foot diabetic ulcer with necrosis of bone, Brooks grade 3, wet cold foot.. Progress: The patient developed barotrauma in the left ear. She just started having popping and pain while diving in the process. Patient was down only about 10 minutes into his dive before he experienced a lot more pain. Braid Folder brought his level up and he felt better but unable to dive him further. Diving was aborted at this time Tolerance of hyperbaric oxygen therapy: HBO was aborted for today patient is to follow-up with his ENT doctor and be placed on antibiotics tube in place on the left but is very erythematous around the 2 giving him pressure and pain. Vision will restart diving after he talks with ENT. 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 (Chronic) Ulcer of left lower extremity with fat layer exposed (Chronic) Ulcer of right lower extremity with fat layer exposed (Chronic) Ulcer of left lower extremity, limited to breakdown of skin (Chronic) Ulcer of left lower extremity, limited to breakdown of skin (Chronic) Non-pressure chronic ulcer of other part of right foot with fat layer exposed (Chronic) Complete below knee amputation of left lower extremity (Chronic) Ulcer of right foot with necrosis of muscle (Chronic) Ulcer of right foot with fat layer exposed (Chronic) 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) Delayed wound healing (Chronic) Malnutrition (Chronic) Venous insufficiency (Chronic) Lymphedema (Chronic) Edema of both legs (Chronic) GERD (gastroesophageal reflux disease) (Chronic) Hypertension (Chronic) Hyperlipemia (Chronic) Morbid obesity with BMI of 45.0-49.9, adult (Chronic) Hyperlipidemia associated with type 2 diabetes mellitus (Chronic) 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 Allergies/Adverse Reactions: Allergies bee venom protein (honey bee) Allergy (Verified 12/13/17 09:30) Swelling metronidazole [From Flagyl] Allergy (Verified 12/13/17 09:30) Itching Home Medications: Ambulatory Orders Medication Instructions Recorded Atorvastatin Calcium [Lipitor] 10 mg PO QHS 01/08/17 Brimonidine Tartrate 0.2% 1 drop EACH EYE BID 01/08/17 [Brimonidine 0.2% 5Ml Bottle] Ergocalciferol [Vitamin D] 50,000 unit PO FR 01/08/17 Gabapentin [Neurontin] 1,600 mg PO QHS 01/08/17 Gabapentin [Neurontin] 600 mg PO DAILY 01/08/17 Insulin U-500 [Humulin R U-500 105 units SC DINNER 01/08/17 ([facility])] Insulin U-500 [Humulin R U-500 105 units SC LUNCH 01/08/17 ([facility])] Insulin U-500 [Humulin R U-500 160 units SC BREAKFAST 01/08/17 ([facility])] Latanoprost 0.005% [Xalatan 1 drop EACH EYE QHS 01/08/17 Opthalmic] Losartan Potassium [Cozaar] 50 mg PO DAILY 01/08/17 Nebivolol HCl [Bystolic (Beta 10 mg PO DAILY 01/08/17 Akira)] Omeprazole [Prilosec] 40 mg PO DAILY 01/08/17 Acetaminophen [Tylenol Tablet] 650 mg PO Q6H PRN PRN tablet 09/07/17 Clopidogrel Bisulfate [Plavix] 75 mg PO DAILY 09/07/17 Menthol/Lanolin/Calamine/Znox 1 applic TOPICAL 0600,2200 tube 09/21/17 [Calmoseptine Ointment] Nutritional Supplement [Madhu - 1 packet PO BIDCM #60 packet 09/21/17 [facility]] Nystatin Powder [Mycostatin Powder] 1 applic TOPICAL 0600,2200 bottle 09/21/17 Ferrous Sulfate [Iron] 325 mg PO BID 10/14/17 Clindamycin HCl 300 mg PO [id number] #40 cap 12/13/17 Maternal Family History: Diabetes Paternal Family History: Hypertension Sibling Family History: Diabetes Smoking Status: Former smoker Physical Exam Vital Signs Temp Pulse Resp BP 97.5 F L 99 18 129/61 H 06/24/18 10:43 06/24/18 10:43 06/24/18 10:43 06/24/18 10:43 Assessment/Plan Active Problems Cold-induced injury (Chronic) Chronic ulcer of right foot with fat layer exposed (Chronic) Ulcer of left lower extremity with fat layer exposed (Chronic) Maceration of skin (Acute) 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
--- NOTE | 2018-06-24 11:40 | HBO.PN.PCM_ITS ---
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 DEL BARRIOS is a 58 year old currently undergoing hyperbaric oxygen therapy for right foot diabetic ulcer with necrosis of bone, Brooks grade 3, wet cold foot.. Progress: The patient developed barotrauma in the left ear. She just started having popping and pain while diving in the process. Patient was down only about 10 minutes into his dive before he experienced a lot more pain. Stave Cutter brought his level up and he felt better but unable to dive him further. Diving was aborted at this time Tolerance of hyperbaric oxygen therapy: HBO was aborted for today patient is to follow-up with his ENT doctor and be placed on antibiotics tube in place on the left but is very erythematous around the 2 giving him pressure and pain. Vision will restart diving after he talks with ENT. 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 (Chronic) Ulcer of left lower extremity with fat layer exposed (Chronic) Ulcer of right lower extremity with fat layer exposed (Chronic) Ulcer of left lower extremity, limited to breakdown of skin (Chronic) Ulcer of left lower extremity, limited to breakdown of skin (Chronic) Non-pressure chronic ulcer of other part of right foot with fat layer exposed (Chronic) Complete below knee amputation of left lower extremity (Chronic) Ulcer of right foot with necrosis of muscle (Chronic) Ulcer of right foot with fat layer exposed (Chronic) 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) Delayed wound healing (Chronic) Malnutrition (Chronic) Venous insufficiency (Chronic) Lymphedema (Chronic) Edema of both legs (Chronic) GERD (gastroesophageal reflux disease) (Chronic) Hypertension (Chronic) Hyperlipemia (Chronic) Morbid obesity with BMI of 45.0-49.9, adult (Chronic) Hyperlipidemia associated with type 2 diabetes mellitus (Chronic) 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 Allergies/Adverse Reactions: Allergies bee venom protein (honey bee) Allergy (Verified 12/13/17 09:30) Swelling metronidazole [From Flagyl] Allergy (Verified 12/13/17 09:30) Itching Home Medications: Ambulatory Orders Medication Instructions Recorded Atorvastatin Calcium [Lipitor] 10 mg PO QHS 01/08/17 Brimonidine Tartrate 0.2% 1 drop EACH EYE BID 01/08/17 [Brimonidine 0.2% 5Ml Bottle] Ergocalciferol [Vitamin D] 50,000 unit PO FR 01/08/17 Gabapentin [Neurontin] 1,600 mg PO QHS 01/08/17 Gabapentin [Neurontin] 600 mg PO DAILY 01/08/17 Insulin U-500 [Humulin R U-500 105 units SC DINNER 01/08/17 ([facility])] Insulin U-500 [Humulin R U-500 105 units SC LUNCH 01/08/17 ([facility])] Insulin U-500 [Humulin R U-500 160 units SC BREAKFAST 01/08/17 ([facility])] Latanoprost 0.005% [Xalatan 1 drop EACH EYE QHS 01/08/17 Opthalmic] Losartan Potassium [Cozaar] 50 mg PO DAILY 01/08/17 Nebivolol HCl [Bystolic (Beta 10 mg PO DAILY 01/08/17 Akira)] Omeprazole [Prilosec] 40 mg PO DAILY 01/08/17 Acetaminophen [Tylenol Tablet] 650 mg PO Q6H PRN PRN tablet 09/07/17 Clopidogrel Bisulfate [Plavix] 75 mg PO DAILY 09/07/17 Menthol/Lanolin/Calamine/Znox 1 applic TOPICAL 0600,2200 tube 09/21/17 [Calmoseptine Ointment] Nutritional Supplement [Madhu - 1 packet PO BIDCM #60 packet 09/21/17 [facility]] Nystatin Powder [Mycostatin Powder] 1 applic TOPICAL 0600,2200 bottle 09/21/17 Ferrous Sulfate [Iron] 325 mg PO BID 10/14/17 Clindamycin HCl 300 mg PO [id number] #40 cap 12/13/17 Maternal Family History: Diabetes Paternal Family History: Hypertension Sibling Family History: Diabetes Smoking Status: Former smoker Physical Exam Vital Signs Temp Pulse Resp BP 97.5 F L 99 18 129/61 H 06/24/18 10:43 06/24/18 10:43 06/24/18 10:43 06/24/18 10:43 Assessment/Plan Active Problems Cold-induced injury (Chronic) Chronic ulcer of right foot with fat layer exposed (Chronic) Ulcer of left lower extremity with fat layer exposed (Chronic) Maceration of skin (Acute) 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
[2018-07-05 09:45] LABS: Bedside Glucose 238 mg/dL (70-110)
[2018-07-05 11:24] VITALS: BP 115/71; BP 122/65; PULSE 89; PULSE 93; RESP 16; TEMP 36.3
[2018-07-05 12:00] LABS: Bedside Glucose 173 mg/dL (70-110)
--- NOTE | 2018-07-05 13:36 | PCM.HBO.PN ---
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 Progress: Patient appears to have tolerated today's hyperbaric oxygen session, which is his 76th such treatment. Tolerance of hyperbaric oxygen therapy: Hyperbaric oxygen therapy was administered as per the facility protocol. Patient tolerated hyperbaric oxygen therapy well, without complaints or complications. Upon emergence from the hyperbaric chamber, patient's vital signs remained stable. He was discharged in good condition. 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 (Chronic) Ulcer of left lower extremity with fat layer exposed (Chronic) Ulcer of right lower extremity with fat layer exposed (Chronic) Ulcer of left lower extremity, limited to breakdown of skin (Chronic) Ulcer of left lower extremity, limited to breakdown of skin (Chronic) Non-pressure chronic ulcer of other part of right foot with fat layer exposed (Chronic) Complete below knee amputation of left lower extremity (Chronic) Ulcer of right foot with necrosis of muscle (Chronic) Ulcer of right foot with fat layer exposed (Chronic) 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) Delayed wound healing (Chronic) Malnutrition (Chronic) Venous insufficiency (Chronic) Lymphedema (Chronic) Edema of both legs (Chronic) GERD (gastroesophageal reflux disease) (Chronic) Hypertension (Chronic) Hyperlipemia (Chronic) Morbid obesity with BMI of 45.0-49.9, adult (Chronic) Hyperlipidemia associated with type 2 diabetes mellitus (Chronic) 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 Allergies/Adverse Reactions: Allergies bee venom protein (honey bee) Allergy (Verified 12/13/17 09:30) Swelling metronidazole [From Flagyl] Allergy (Verified 12/13/17 09:30) Itching Home Medications: Ambulatory Orders Medication Instructions Recorded Atorvastatin Calcium [Lipitor] 10 mg PO QHS 01/08/17 Brimonidine Tartrate 0.2% 1 drop EACH EYE BID 01/08/17 [Brimonidine 0.2% 5Ml Bottle] Ergocalciferol [Vitamin D] 50,000 unit PO FR 01/08/17 Gabapentin [Neurontin] 1,600 mg PO QHS 01/08/17 Gabapentin [Neurontin] 600 mg PO DAILY 01/08/17 Insulin U-500 [Humulin R U-500 105 units SC DINNER 01/08/17 ([facility])] Insulin U-500 [Humulin R U-500 105 units SC LUNCH 01/08/17 ([facility])] Insulin U-500 [Humulin R U-500 160 units SC BREAKFAST 01/08/17 ([facility])] Latanoprost 0.005% [Xalatan 1 drop EACH EYE QHS 01/08/17 Opthalmic] Losartan Potassium [Cozaar] 50 mg PO DAILY 01/08/17 Nebivolol HCl [Bystolic (Beta 10 mg PO DAILY 01/08/17 Akira)] Omeprazole [Prilosec] 40 mg PO DAILY 01/08/17 Acetaminophen [Tylenol Tablet] 650 mg PO Q6H PRN PRN tablet 09/07/17 Clopidogrel Bisulfate [Plavix] 75 mg PO DAILY 09/07/17 Menthol/Lanolin/Calamine/Znox 1 applic TOPICAL 0600,2200 tube 09/21/17 [Calmoseptine Ointment] Nutritional Supplement [Madhu - 1 packet PO BIDCM #60 packet 09/21/17 [facility] FLAVOR] Nystatin Powder [Mycostatin Powder] 1 applic TOPICAL 0600,2200 bottle 09/21/17 Ferrous Sulfate [Iron] 325 mg PO BID 10/14/17 Clindamycin HCl 300 mg PO [id number] #40 cap 12/13/17 Maternal Family History: Diabetes Paternal Family History: Hypertension Sibling Family History: Diabetes Smoking Status: Former smoker Physical Exam Vital Signs Temp Pulse Resp BP 97.4 F L 93 16 115/71 07/05/18 11:24 07/05/18 11:24 07/05/18 11:24 07/05/18 11:24 General: Alert, Oriented x3, Cooperative, No apparent distress, Well developed, Well nourished HEENT: Atraumatic, PERRLA, EOMI, Normocephalic Lungs: Normal air movement Psych/Mental Status: Normal Affect, Appropriate, Alert and oriented to time, place, person, mood and affect Assessment/Plan Active Problems 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
--- NOTE | 2018-07-05 13:39 | HBO.PN.PCM_ITS ---
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 Progress: Patient appears to have tolerated today's hyperbaric oxygen session, which is his 76th such treatment. Tolerance of hyperbaric oxygen therapy: Hyperbaric oxygen therapy was administered as per the facility protocol. Patient tolerated hyperbaric oxygen therapy well, without complaints or complications. Upon emergence from the hyperbaric chamber, patient's vital signs remained stable. He was discharged in good condition. 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 (Chronic) Ulcer of left lower extremity with fat layer exposed (Chronic) Ulcer of right lower extremity with fat layer exposed (Chronic) Ulcer of left lower extremity, limited to breakdown of skin (Chronic) Ulcer of left lower extremity, limited to breakdown of skin (Chronic) Non-pressure chronic ulcer of other part of right foot with fat layer exposed (Chronic) Complete below knee amputation of left lower extremity (Chronic) Ulcer of right foot with necrosis of muscle (Chronic) Ulcer of right foot with fat layer exposed (Chronic) 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) Delayed wound healing (Chronic) Malnutrition (Chronic) Venous insufficiency (Chronic) Lymphedema (Chronic) Edema of both legs (Chronic) GERD (gastroesophageal reflux disease) (Chronic) Hypertension (Chronic) Hyperlipemia (Chronic) Morbid obesity with BMI of 45.0-49.9, adult (Chronic) Hyperlipidemia associated with type 2 diabetes mellitus (Chronic) 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 Allergies/Adverse Reactions: Allergies bee venom protein (honey bee) Allergy (Verified 12/13/17 09:30) Swelling metronidazole [From Flagyl] Allergy (Verified 12/13/17 09:30) Itching Home Medications: Ambulatory Orders Medication Instructions Recorded Atorvastatin Calcium [Lipitor] 10 mg PO QHS 01/08/17 Brimonidine Tartrate 0.2% 1 drop EACH EYE BID 01/08/17 [Brimonidine 0.2% 5Ml Bottle] Ergocalciferol [Vitamin D] 50,000 unit PO FR 01/08/17 Gabapentin [Neurontin] 1,600 mg PO QHS 01/08/17 Gabapentin [Neurontin] 600 mg PO DAILY 01/08/17 Insulin U-500 [Humulin R U-500 105 units SC DINNER 01/08/17 ([facility])] Insulin U-500 [Humulin R U-500 105 units SC LUNCH 01/08/17 ([facility])] Insulin U-500 [Humulin R U-500 160 units SC BREAKFAST 01/08/17 ([facility])] Latanoprost 0.005% [Xalatan 1 drop EACH EYE QHS 01/08/17 Opthalmic] Losartan Potassium [Cozaar] 50 mg PO DAILY 01/08/17 Nebivolol HCl [Bystolic (Beta 10 mg PO DAILY 01/08/17 Akira)] Omeprazole [Prilosec] 40 mg PO DAILY 01/08/17 Acetaminophen [Tylenol Tablet] 650 mg PO Q6H PRN PRN tablet 09/07/17 Clopidogrel Bisulfate [Plavix] 75 mg PO DAILY 09/07/17 Menthol/Lanolin/Calamine/Znox 1 applic TOPICAL 0600,2200 tube 09/21/17 [Calmoseptine Ointment] Nutritional Supplement [Madhu - 1 packet PO BIDCM #60 packet 09/21/17 [place] FLAVOR] Nystatin Powder [Mycostatin Powder] 1 applic TOPICAL 0600,2200 bottle 09/21/17 Ferrous Sulfate [Iron] 325 mg PO BID 10/14/17 Clindamycin HCl 300 mg PO [id number] #40 cap 12/13/17 Maternal Family History: Diabetes Paternal Family History: Hypertension Sibling Family History: Diabetes Smoking Status: Former smoker Physical Exam Vital Signs Temp Pulse Resp BP 97.4 F L 93 16 115/71 07/05/18 11:24 07/05/18 11:24 07/05/18 11:24 07/05/18 11:24 General: Alert, Oriented x3, Cooperative, No apparent distress, Well developed, Well nourished HEENT: Atraumatic, PERRLA, EOMI, Normocephalic Lungs: Normal air movement Psych/Mental Status: Normal Affect, Appropriate, Alert and oriented to time, place, person, mood and affect Assessment/Plan Active Problems 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
[2018-07-06 08:20] VITALS: BP 121/67; PULSE 95; RESP 18; TEMP 35.3
--- NOTE | 2018-07-06 09:49 | PCM.WC.PN ---
(1) Other specified peripheral vascular diseases Status: Suspected Current Visit: Yes Code(s): I73.89 - Other specified peripheral vascular diseases (2) Cold-induced injury Status: Chronic Current Visit: Yes Code(s): T69.9XXA - Effect of reduced temperature, unspecified, initial encounter (3) Chronic ulcer of right foot with fat layer exposed Status: Chronic Current Visit: Yes Code(s): L97.512 - Non-pressure chronic ulcer of other part of right foot with fat layer exposed (4) Ulcer of left lower extremity with fat layer exposed Status: Chronic Current Visit: Yes Code(s): L97.922 - Non-pressure chronic ulcer of unspecified part of left lower leg with fat layer exposed (5) BKA stump complication Status: Chronic Current Visit: Yes Code(s): T87.9 - Unspecified complications of amputation stump (6) Type 2 diabetes mellitus with diabetic polyneuropathy Status: Chronic Current Visit: Yes Code(s): E11.42 - Type 2 diabetes mellitus with diabetic polyneuropathy (7) Delayed wound healing Status: Chronic Current Visit: Yes Code(s): T14.8 - Other injury of unspecified body region (8) Malnutrition Status: Chronic Current Visit: Yes Code(s): E46 - Unspecified protein-calorie malnutrition (9) Venous insufficiency Status: Chronic Current Visit: Yes Code(s): I87.2 - Venous insufficiency (chronic) (peripheral) (10) Lymphedema Status: Chronic Current Visit: Yes Code(s): I89.0 - Lymphedema, not elsewhere classified (11) Edema of both legs Status: Chronic Current Visit: Yes Code(s): R60.0 - Localized edema Type of Wound Date of Service: 07/06/18 Chief Complaint: 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 Right toe ulcers and left stump ulcers. Discoloration and swelling right leg. New right leg ulcers. History of Wound: 58-year-old white male returns to clinic for follow-up of bilateral leg ulcers and right foot ulcers. He denies fever, chill, nausea, vomiting, loss of appetite. He had multiple advanced wound care product applications. He continues with hyperbaric oxygen therapy sessions. He presents in a wheelchair today. He denies odors or redness. He denies getting his foot wet again. He missed his vascular appointment due to transportation problems that he complains about. He developed blisters last week. He has not been using his compression pump. Progress of Wound: Stable right toe and heel areas. Left stump site ulcer stable. New right leg ulcers - Physical Exam Vital Signs Temp Pulse Resp BP 95.5 F L 95 18 121/67 H 07/06/18 08:20 07/06/18 08:20 07/06/18 08:20 07/06/18 08:20 General: Alert, Oriented x3, Cooperative Extremities: No Calf Tenderness - Negative Harry and Badillo right, Diminished Peripheral Pulses, Edema, - - Left below-knee amputation. There is hyperpigmentation, edema, and coolness to the right forefoot by the toes. There is no eschar or necrosis. Capillary fill time is delayed right foot Wound Measurements and Assessment WC - Nurse 1 - General Ulcer Measurement Start: 06/08/18 08:16 Freq: Status: Active Protocol: Activity Type Activity Date Activity User E-Sign Co-Sign Detail Recorded Client Recorded Date Recorded By Document 07/06/18 08:20 DL [id number] 07/06/18 08:39 DL 07/06/18 08:20 Wound Center Nurse 1 [Ulcer Assessment] #24 R Styles -Current Size (cm) - Length 3 -Current Size (cm) - Width 2.3 -Current Size (cm) - Depth 0.1 -Total Square Cm 6.9 -Photo Taken Yes -Exudate Amt Medium -Exudate Type Serosanguineous -Wound Margin Distinct, Outline Attached -Granulation Amt Large (67-100%) -Granulation Quality Kiel Red -Necrosis Amt None Present (0 %) -Structure Exposed N/A -Texture (Martha-wound Skin Appearance) Scarring -Color (Martha-wound Skin Appearance) Hemosiderin Staining -Temperature (Martha-wound Skin No Abnormality Appearance) (Pt Warm) -Tenderness on Palpation (Martha-wound No Skin Appearance) -Ulcer Cleansing Wound Cleanser -Foul Odor after Cleansing No -Anesthetic Used 4% Lidocaine Solution #23 R Post -Current Size (cm) - Length 13.6 -Current Size (cm) - Width 16.6 -Current Size (cm) - Depth 0.1 -Total Square Cm 225.76 -Photo Taken Yes -Exudate Amt Large -Exudate Type Serosanguineous -Wound Margin Distinct, Outline Attached -Granulation Amt Large (67-100%) -Granulation Quality Kiel Red -Necrosis Amt None Present (0 %) -Structure Exposed N/A -Texture (Martha-wound Skin Appearance) Localized Edema Scarring -Moisture (Martha-wound Skin Appearance Maceration ) -Color (Martha-wound Skin Appearance) Hemosiderin Staining -Temperature (Martha-wound Skin No Abnormality Appearance) (Pt Warm) -Tenderness on Palpation (Martha-wound No Skin Appearance) -Ulcer Cleansing Wound Cleanser -Foul Odor after Cleansing No -Anesthetic Used 4% Lidocaine Solution #22 left stump -Current Size (cm) - Length 5 -Current Size (cm) - Width 8 -Current Size (cm) - Depth 0.1 -Total Square Cm 40 -Photo Taken No -Exudate Amt Medium -Exudate Type Serosanguineous -Wound Margin Indistinct, Non -Visible -Granulation Amt Large (67-100%) -Granulation Quality Kiel -Necrosis Amt Small (1-33%) -Necrotic Tissue Type Adherent Slough -Structure Exposed N/A -Texture (Martha-wound Skin Appearance) Scarring -Moisture (Martha-wound Skin Appearance Maceration ) -Color (Martha-wound Skin Appearance) Hemosiderin Staining -Temperature (Martha-wound Skin No Abnormality Appearance) (Pt Warm) -Tenderness on Palpation (Martha-wound No Skin Appearance) -Ulcer Cleansing Wound Cleanser -Foul Odor after Cleansing No -Anesthetic Used 4% Lidocaine Solution #13 R Med Heel -Current Size (cm) - Length 2 -Current Size (cm) - Width 4 -Current Size (cm) - Depth 0.1 -Total Square Cm 8 -Photo Taken No -Exudate Amt Large -Exudate Type Serosanguineous -Wound Margin Flat & Intact -Granulation Amt None Present (0 %) -Necrosis Amt Large (67-100%) -Necrotic Tissue Type Adherent Slough -Structure Exposed N/A -Texture (Martha-wound Skin Appearance) Localized Edema Scarring -Moisture (Martha-wound Skin Appearance Maceration ) -Color (Martha-wound Skin Appearance) Hemosiderin Staining Mottled -Temperature (Martha-wound Skin No Abnormality Appearance) (Pt Warm) -Tenderness on Palpation (Martha-wound No Skin Appearance) -Ulcer Cleansing Wound Cleanser -Foul Odor after Cleansing No -Anesthetic Used 4% Lidocaine Solution #21 Right Foot-Toes w/Metatarsal Head circumfrential -Current Size (cm) - Length 14 -Current Size (cm) - Width 8 -Current Size (cm) - Depth 0.1 -Total Square Cm 112 -Photo Taken No -Exudate Amt Medium -Exudate Type Serosanguineous -Wound Margin Indistinct, Non -Visible -Granulation Amt Small (1-33%) -Granulation Quality Kiel -Necrosis Amt Large (67-100%) -Necrotic Tissue Type Adherent Slough -Structure Exposed N/A -Texture (Martha-wound Skin Appearance) Localized Edema Scarring -Moisture (Martha-wound Skin Appearance Maceration ) -Color (Martha-wound Skin Appearance) Hemosiderin Staining Mottled Rubor -Temperature (Martha-wound Skin No Abnormality Appearance) (Pt Warm) -Tenderness on Palpation (Martha-wound No Skin Appearance) -Ulcer Cleansing Wound Cleanser -Foul Odor after Cleansing No -Anesthetic Used 4% Lidocaine Solution [Edema Assessment] -Right Calf (cm) 43.4 -Right Ankle (cm) 31.4 -Left Calf (cm) 48.7 WC - Nurse 2 - General Ulcer CM Notes Start: 06/08/18 08:16 Freq: Status: Active Protocol: Activity Type Activity Date Activity User E-Sign Co-Sign Detail Recorded Client Recorded Date Recorded By Document 07/06/18 08:59 ANUP [id number] 07/06/18 09:03 ANUP 07/06/18 08:59 Wound Center Nurse 2 [Procedure/Treatment] #24 R Styles -Time 09:00 -Correct Patient Yes -Correct Side, Site, Position Yes -Correct Procedure Yes -Procedure Performed Yes -Type of Procedure Debridement -Clinical Debridement Subcutaneous -Post Debridement Size (cm) - Length 3 -Post Debridement Size (cm) - Width 2.4 -Post Debridement Size (cm) - Depth 0.1 -Total Square Cm 7.2 -Wound/Ulcer Outcome Not Healed -Ulcer Cleansing Rinsed/ Irrigated with Saline -Foul Odor after Cleansing No -Bioengineered Tissue No -Bleeding Controlled with Pressure -Offloading No -Treatment Response Procedure Tolerated Well #23 R Post -Time 09:00 -Correct Patient Yes -Correct Side, Site, Position Yes -Correct Procedure Yes -Procedure Performed Yes -Type of Procedure Debridement -Clinical Debridement Subcutaneous -Post Debridement Size (cm) - Length 13.7 -Post Debridement Size (cm) - Width 16.7 -Post Debridement Size (cm) - Depth 0.1 -Total Square Cm 228.79 -Wound/Ulcer Outcome Not Healed -Ulcer Cleansing Rinsed/ Irrigated with Saline -Foul Odor after Cleansing No -Bioengineered Tissue No -Bleeding Controlled with Pressure -Offloading No -Treatment Response Procedure Tolerated Well #22 left stump -Time 09:00 -Correct Patient Yes -Correct Side, Site, Position Yes -Correct Procedure Yes -Procedure Performed Yes -Type of Procedure Debridement -Clinical Debridement Subcutaneous -Post Debridement Size (cm) - Length 5 -Post Debridement Size (cm) - Width 8 -Post Debridement Size (cm) - Depth 0.1 -Total Square Cm 40 -Wound/Ulcer Outcome Not Healed -Ulcer Cleansing Rinsed/ Irrigated with Saline -Foul Odor after Cleansing No -Bioengineered Tissue No -Bleeding Controlled with Pressure -Offloading No -Treatment Response Procedure Tolerated Well #13 R Med Heel -Time 09:01 -Correct Patient Yes -Correct Side, Site, Position Yes -Correct Procedure Yes -Procedure Performed Yes -Type of Procedure Debridement -Clinical Debridement Subcutaneous -Post Debridement Size (cm) - Length 2.1 -Post Debridement Size (cm) - Width 4 -Post Debridement Size (cm) - Depth 0.1 -Total Square Cm 8.4 -Wound/Ulcer Outcome Not Healed -Ulcer Cleansing Rinsed/ Irrigated with Saline -Foul Odor after Cleansing No -Bioengineered Tissue No -Bleeding Controlled with Pressure -Offloading No -Treatment Response Procedure Tolerated Well #21 Right Foot-Toes w/Metatarsal Head circumfrential -Time 09:01 -Correct Patient Yes -Correct Side, Site, Position Yes -Correct Procedure Yes -Procedure Performed Yes -Type of Procedure Debridement -Clinical Debridement Subcutaneous -Post Debridement Size (cm) - Length 14.1 -Post Debridement Size (cm) - Width 8 -Post Debridement Size (cm) - Depth 0.1 -Total Square Cm 112.8 -Wound/Ulcer Outcome Not Healed -Ulcer Cleansing Rinsed/ Irrigated with Saline -Foul Odor after Cleansing No -Bioengineered Tissue No -Bleeding Controlled with Pressure -Offloading No -Treatment Response Procedure Tolerated Well [See Physician Procedure note for Specifics] Pain Scale: 0-10 Numeric [Pain] -Is Patient Pain Free? Yes Musculoskeletal: No Tenderness to Palpation of Joints or Extremities, Muscle Wasting Neurological: - - Lack of epicritic sensation to light touch bilateral extremities Psych/Mental Status: Normal Affect, Appropriate Debridement Note Post-Debridement Measurements/Treatment WC - Nurse 2 - General Ulcer CM Notes Start: 06/08/18 08:16 Freq: Status: Active Protocol: Activity Type Activity Date Activity User E-Sign Co-Sign Detail Recorded Client Recorded Date Recorded By Document 06/08/18 08:56 DL [id number] 06/08/18 08:58 DL Document 06/15/18 09:01 JF [id number] 06/15/18 09:02 JF Document 07/06/18 08:59 JF [id number] 07/06/18 09:03 JF 06/08/18 06/15/18 07/06/18 08:56 09:01 08:59 Wound Center Nurse 2 #24 R Styles -Time 09:00 -Correct Patient Yes -Correct Side, Site, Position Yes -Correct Procedure Yes -Procedure Performed Yes -Type of Procedure Debridement -Clinical Debridement Subcutaneous -Post Debridement Size (cm) - Length 3 -Post Debridement Size (cm) - Width 2.4 -Post Debridement Size (cm) - Depth 0.1 -Total Square Cm 7.2 -Wound/Ulcer Outcome Not Healed -Ulcer Cleansing Rinsed/ Irrigated with Saline -Foul Odor after Cleansing No -Bioengineered Tissue No -Bleeding Controlled with Pressure -Offloading No -Treatment Response Procedure Tolerated Well #23 R Post -Time 09:00 -Correct Patient Yes -Correct Side, Site, Position Yes -Correct Procedure Yes -Procedure Performed Yes -Type of Procedure Debridement -Clinical Debridement Subcutaneous -Post Debridement Size (cm) - Length 13.7 -Post Debridement Size (cm) - Width 16.7 -Post Debridement Size (cm) - Depth 0.1 -Total Square Cm 228.79 -Wound/Ulcer Outcome Not Healed -Ulcer Cleansing Rinsed/ Irrigated with Saline -Foul Odor after Cleansing No -Bioengineered Tissue No -Bleeding Controlled with Pressure -Offloading No -Treatment Response Procedure Tolerated Well #22 left stump -Time 09:00 -Correct Patient No No Yes -Correct Side, Site, Position No No Yes -Correct Procedure No No Yes -Procedure Performed No No Yes -Type of Procedure Debridement -Clinical Debridement Subcutaneous -Post Debridement Size (cm) - Length 5 -Post Debridement Size (cm) - Width 8 -Post Debridement Size (cm) - Depth 0.1 -Total Square Cm 40 -Wound/Ulcer Outcome Not Healed -Ulcer Cleansing Rinsed/ Irrigated with Saline -Foul Odor after Cleansing No -Bioengineered Tissue No -Bleeding Controlled with Pressure -Offloading No -Treatment Response Procedure Tolerated Well #13 R Med Heel -Time 08:57 09:01 09:01 -Correct Patient Yes Yes Yes -Correct Side, Site, Position Yes Yes Yes -Correct Procedure Yes Yes Yes -Procedure Performed Yes Yes Yes -Type of Procedure Debridement Debridement Debridement -Clinical Debridement Subcutaneous Subcutaneous Subcutaneous -Post Debridement Size (cm) - Length 1.1 1.6 2.1 -Post Debridement Size (cm) - Width 1.3 1.7 4 -Post Debridement Size (cm) - Depth 0.1 0.2 0.1 -Total Square Cm 1.43 2.72 8.4 -Wound/Ulcer Outcome Not Healed Not Healed Not Healed -Ulcer Cleansing Rinsed/ Rinsed/ Rinsed/ Irrigated with Irrigated with Irrigated with Saline Saline Saline -Foul Odor after Cleansing No No No -Bioengineered Tissue No No No -Bleeding Controlled with Pressure Pressure Pressure -Offloading No No No -Treatment Response Procedure Procedure Procedure Tolerated Well Tolerated Well Tolerated Well #21 Right Foot-Toes w/Metatarsal Head circumfrential -Time 09:01 09:01 -Correct Patient No Yes Yes -Correct Side, Site, Position No Yes Yes -Correct Procedure No Yes Yes -Procedure Performed No Yes Yes -Type of Procedure Debridement Debridement -Clinical Debridement Subcutaneous Subcutaneous -Post Debridement Size (cm) - Length 7.5 14.1 -Post Debridement Size (cm) - Width 13.1 8 -Post Debridement Size (cm) - Depth 0.1 0.1 -Total Square Cm 98.25 112.8 -Wound/Ulcer Outcome Not Healed Not Healed -Ulcer Cleansing Rinsed/ Rinsed/ Irrigated with Irrigated with Saline Saline -Foul Odor after Cleansing No No -Bioengineered Tissue No No -Bleeding Controlled with Pressure Pressure -Offloading No No -Treatment Response Procedure Procedure Tolerated Well Tolerated Well Pain Scale: 0-10 Numeric Is Patient Pain Free? Yes Yes Yes Wound debrided: stump site Laterality: Left Wound Grade/Stage: grade 1 Anesthesia Used: 5% Lidocaine Gel Depth: in the subcutaneous layer Percentage of wound debrided: 100 Instrument Used: #15 blade Tissue Removed: fibrous, devitalized subcutaneous, biofilm, slough Severity: Fat Layer Exposed Amount of bleeding with debridement: Mild Bleeding Controlled with: Pressure Patient tolerated procedure well - Additional Wound Wound debrided: heel Laterality: Right Wound Grade/Stage: grade 3 Type of Debridement: Excisional debridement Anesthesia Used: 5% Lidocaine Gel Depth: in the subcutaneous layer Percentage of wound debrided: 100 Instrument Used: #15 blade Tissue Removed: fibrous, devitalized subcutaneous, biofilm, slough Severity: Fat Layer Exposed Amount of bleeding with debridement: Mild Bleeding Controlled with: Pressure Patient tolerated procedure: Patient tolerated procedure well - Additional Wound Wound debrided: distal foot Laterality: Right Wound Grade/Stage: grade 1 Type of Debridement: Selective debridement Anesthesia Used: 5% Lidocaine Gel Depth: in the subcutaneous layer Percentage of wound debrided: 100 Instrument Used: #15 blade Tissue Removed: fibrous, devitalized subcutaneous, biofilm, slough Severity: Fat Layer Exposed Amount of bleeding with debridement: Mild Bleeding Controlled with: Pressure Patient tolerated procedure: Patient tolerated procedure well - Additional Wound Wound debrided: posterior leg Laterality: Right Wound Grade/Stage: grade 1 Type of Debridement: Excisional debridement Anesthesia Used: 5% Lidocaine Gel Depth: in the subcutaneous layer Percentage of wound debrided: 100 Instrument Used: #15 blade Tissue Removed: fibrous, devitalized subcutaneous, biofilm, slough Severity: Fat Layer Exposed Amount of bleeding with debridement: Mild Bleeding Controlled with: Pressure Patient tolerated procedure: Patient tolerated procedure well - Additional Wound Wound debrided: anterior leg Laterality: Right Wound Grade/Stage: grade 1 Type of Debridement: Excisional debridement Anesthesia Used: 5% Lidocaine Gel Depth: in the subcutaneous layer Percentage of wound debrided: 100 Instrument Used: #15 blade Tissue Removed: fibrous, devitalized subcutaneous, biofilm, slough Severity: Fat Layer Exposed Amount of bleeding with debridement: Mild Bleeding Controlled with: Pressure Patient tolerated procedure: Patient tolerated procedure well Assessment/Plan Active Problems 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 right heel ulcer muscle involved and exposed fascia without infection noted today (previous grade 3); s/p surgical debridement and application of advance wound care products (amniofil and epicord). Right foot hypothermia / small vessel disease. 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 Lymphedema. Chronic lower extremity edema and venous insufficiency. Morbid obesity. Type 2 diabetes uncontrolled with peripheral neuropathy. CKD. Hypertension. Malnutrition. Delayed wound healing. Nonadherence to treatment plan Plan: I reviewed and discussed his case debridement done (right heel subcutaneous debridement, right leg ulcer site subcutaneous debridement, left stump site subcutaneous debridement and forefoot only selective debridement) as documented above in the clinical panel; this procedure was well tolerated. I applied [facility] and he is advised to change this every 1-2 days with home health assistance. Continue compression left with 3M2L. This wrap will be applied in a less compressive manner with some of the layers omitted so it is not as aggressive. I advised him to hold off on compression pump use. Optimal blood sugar contol. To avoid trauma and cold exposure to the right foot as he sustained last week. Continue protein suppplements and increased protein in diet. To continue hyperbaric oxygen therapy as scheduled on complaint basis. I encouraged continued use. I also recommend a lymphedema clinic. He went approximately 3 years ago and found this to be very helpful. He no longer has his thigh-high compression garments that were arranged for him during this last session. There is a lymphedema clinic in [place] and his information was sent over. They can only see him once he is d/c from home health; this is noted. Hypothermia prevention, risks, complications and education was discussed today. He was advised to strictly cover his foot and to avoid cold or moisture exposure while outside. He understands he is at high risk for limb loss due to frostbite at this already compromised limb site. Additional care was taken to apply underlying Tubigrip and sock and dressing protection layers today. He was urged to be compliant with this prior to leaving his home in between clinic sessions. I am concerned about his status change which seems to be stable and consistent with his previous exams. His clinical appearance of his right foot may be a result of moisture and cold exposure however would like to screen him for peripheral vascular disease status change. His noninvasive vascular studies were reviewed without gross abnormalities to the ankle level. I am suspecting a small vessel disease component and due to his status change recommend a vascular surgery referral to Dr. Nixon. Input will be greatly appreciated. He was reassured no anna necrosis or tissue loss was noted and his capillary fill time was noted to the first and second toes and delayed to the fourth toe. It is noted he did not go to this is advised and he is been rescheduled for July 13, 2018. Compliance was urged. Follow up in 1 week with at the wound healing center or call sooner if he has any questions or concerns.
[2018-07-07 09:36] LABS: Bedside Glucose 336 mg/dL (70-110)
--- NOTE | 2018-07-07 09:45 | NURSING ---
Patient did not have treatment for HBO d/t elevated blood sugar. Tested the patient's blood sugar at 09:31 am which registered at 336. Patient reports he did not take his usual sliding scale for his insulin this morning. Per Dr. Valdes's orders, pt will not be treated today. Patient voiced understanding and will return tomorrow.
--- NOTE | 2018-07-18 15:46 | PCM.HBO.PN ---
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 Progress: The patient appears to be tolerating hyperbaric oxygen therapy well. This is his 2nd treatment course and his 78th session of hyperbaric oxygen therapy. Tolerance of hyperbaric oxygen therapy: Hyperbaric oxygen therapy was administered as per the facility's protocol. The patient tolerated hyperbaric oxygen therapy well, without complaints or complications. Upon emergence from the hyperbaric chamber, patient's vital signs remained stable. Patient was discharged in good condition. His blood glucose was 215 before the treatment. His blood glucose was 176 after the treatment. 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 (Chronic) Ulcer of left lower extremity with fat layer exposed (Chronic) Ulcer of right lower extremity with fat layer exposed (Chronic) Ulcer of left lower extremity, limited to breakdown of skin (Chronic) Ulcer of left lower extremity, limited to breakdown of skin (Chronic) Non-pressure chronic ulcer of other part of right foot with fat layer exposed (Chronic) Complete below knee amputation of left lower extremity (Chronic) Ulcer of right foot with necrosis of muscle (Chronic) Ulcer of right foot with fat layer exposed (Chronic) 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) Delayed wound healing (Chronic) Malnutrition (Chronic) Venous insufficiency (Chronic) Lymphedema (Chronic) Edema of both legs (Chronic) GERD (gastroesophageal reflux disease) (Chronic) Hypertension (Chronic) Hyperlipemia (Chronic) Morbid obesity with BMI of 45.0-49.9, adult (Chronic) Hyperlipidemia associated with type 2 diabetes mellitus (Chronic) 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 Allergies/Adverse Reactions: Allergies bee venom protein (honey bee) Allergy (Verified 12/13/17 09:30) Swelling metronidazole [From Flagyl] Allergy (Verified 12/13/17 09:30) Itching Home Medications: Ambulatory Orders Medication Instructions Recorded Atorvastatin Calcium [Lipitor] 10 mg PO QHS 01/08/17 Brimonidine Tartrate 0.2% 1 drop EACH EYE BID 01/08/17 [Brimonidine 0.2% 5Ml Bottle] Ergocalciferol [Vitamin D] 50,000 unit PO FR 01/08/17 Gabapentin [Neurontin] 1,600 mg PO QHS 01/08/17 Gabapentin [Neurontin] 600 mg PO DAILY 01/08/17 Insulin U-500 [Humulin R U-500 105 units SC DINNER 01/08/17 ([facility])] Insulin U-500 [Humulin R U-500 105 units SC LUNCH 01/08/17 ([facility])] Insulin U-500 [Humulin R U-500 160 units SC BREAKFAST 01/08/17 ([facility])] Latanoprost 0.005% [Xalatan 1 drop EACH EYE QHS 01/08/17 Opthalmic] Losartan Potassium [Cozaar] 50 mg PO DAILY 01/08/17 Nebivolol HCl [Bystolic (Beta 10 mg PO DAILY 01/08/17 Akira)] Omeprazole [Prilosec] 40 mg PO DAILY 01/08/17 Acetaminophen [Tylenol Tablet] 650 mg PO Q6H PRN PRN tablet 09/07/17 Clopidogrel Bisulfate [Plavix] 75 mg PO DAILY 09/07/17 Menthol/Lanolin/Calamine/Znox 1 applic TOPICAL 0600,2200 tube 09/21/17 [Calmoseptine Ointment] Nutritional Supplement [Madhu - 1 packet PO BIDCM #60 packet 09/21/17 [place] FLAVOR] Nystatin Powder [Mycostatin Powder] 1 applic TOPICAL 0600,2200 bottle 09/21/17 Ferrous Sulfate [Iron] 325 mg PO BID 10/14/17 Clindamycin HCl 300 mg PO [id number] #40 cap 12/13/17 Maternal Family History: Diabetes Paternal Family History: Hypertension Sibling Family History: Diabetes Smoking Status: Former smoker Physical Exam Vital Signs Temp Pulse Resp BP 95.5 F L 95 18 121/67 H 07/06/18 08:20 07/06/18 08:20 07/06/18 08:20 07/06/18 08:20 Assessment/Plan Active Problems Chronic ulcer of right foot with fat layer exposed (Chronic) Ulcer of right lower extremity with fat layer exposed (Chronic) Complete below knee amputation of left lower extremity (Chronic) Ulcer of left lower extremity with fat layer exposed (Chronic) Chronic kidney disease (CKD) (Chronic) Type 2 diabetes mellitus with diabetic polyneuropathy (Chronic) Delayed wound healing (Chronic) Malnutrition (Chronic) Venous insufficiency (Chronic) Lymphedema (Chronic) 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
--- NOTE | 2018-07-20 12:47 | HBO.PN.PCM_ITS ---
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 Progress: The patient appears to be tolerating hyperbaric oxygen therapy well. This is his 2nd treatment course and his 78th session of hyperbaric oxygen therapy. Tolerance of hyperbaric oxygen therapy: Hyperbaric oxygen therapy was administered as per the facility's protocol. The patient tolerated hyperbaric oxygen therapy well, without complaints or complications. Upon emergence from the hyperbaric chamber, patient's vital signs remained stable. Patient was discharged in good condition. His blood glucose was 215 before the treatment. His blood glucose was 176 after the treatment. 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 (Chronic) Ulcer of left lower extremity with fat layer exposed (Chronic) Ulcer of right lower extremity with fat layer exposed (Chronic) Ulcer of left lower extremity, limited to breakdown of skin (Chronic) Ulcer of left lower extremity, limited to breakdown of skin (Chronic) Non-pressure chronic ulcer of other part of right foot with fat layer exposed (Chronic) Complete below knee amputation of left lower extremity (Chronic) Ulcer of right foot with necrosis of muscle (Chronic) Ulcer of right foot with fat layer exposed (Chronic) 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) Delayed wound healing (Chronic) Malnutrition (Chronic) Venous insufficiency (Chronic) Lymphedema (Chronic) Edema of both legs (Chronic) GERD (gastroesophageal reflux disease) (Chronic) Hypertension (Chronic) Hyperlipemia (Chronic) Morbid obesity with BMI of 45.0-49.9, adult (Chronic) Hyperlipidemia associated with type 2 diabetes mellitus (Chronic) 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 Allergies/Adverse Reactions: Allergies bee venom protein (honey bee) Allergy (Verified 12/13/17 09:30) Swelling metronidazole [From Flagyl] Allergy (Verified 12/13/17 09:30) Itching Home Medications: Ambulatory Orders Medication Instructions Recorded Atorvastatin Calcium [Lipitor] 10 mg PO QHS 01/08/17 Brimonidine Tartrate 0.2% 1 drop EACH EYE BID 01/08/17 [Brimonidine 0.2% 5Ml Bottle] Ergocalciferol [Vitamin D] 50,000 unit PO FR 01/08/17 Gabapentin [Neurontin] 1,600 mg PO QHS 01/08/17 Gabapentin [Neurontin] 600 mg PO DAILY 01/08/17 Insulin U-500 [Humulin R U-500 105 units SC DINNER 01/08/17 ([place])] Insulin U-500 [Humulin R U-500 105 units SC LUNCH 01/08/17 ([place])] Insulin U-500 [Humulin R U-500 160 units SC BREAKFAST 01/08/17 ([place])] Latanoprost 0.005% [Xalatan 1 drop EACH EYE QHS 01/08/17 Opthalmic] Losartan Potassium [Cozaar] 50 mg PO DAILY 01/08/17 Nebivolol HCl [Bystolic (Beta 10 mg PO DAILY 01/08/17 Akira)] Omeprazole [Prilosec] 40 mg PO DAILY 01/08/17 Acetaminophen [Tylenol Tablet] 650 mg PO Q6H PRN PRN tablet 09/07/17 Clopidogrel Bisulfate [Plavix] 75 mg PO DAILY 09/07/17 Menthol/Lanolin/Calamine/Znox 1 applic TOPICAL 0600,2200 tube 09/21/17 [Calmoseptine Ointment] Nutritional Supplement [Madhu - 1 packet PO BIDCM #60 packet 09/21/17 [place] FLAVOR] Nystatin Powder [Mycostatin Powder] 1 applic TOPICAL 0600,2200 bottle 09/21/17 Ferrous Sulfate [Iron] 325 mg PO BID 10/14/17 Clindamycin HCl 300 mg PO [id number] #40 cap 12/13/17 Maternal Family History: Diabetes Paternal Family History: Hypertension Sibling Family History: Diabetes Smoking Status: Former smoker Physical Exam Vital Signs Temp Pulse Resp BP 95.5 F L 95 18 121/67 H 07/06/18 08:20 07/06/18 08:20 07/06/18 08:20 07/06/18 08:20 Assessment/Plan Active Problems Chronic ulcer of right foot with fat layer exposed (Chronic) Ulcer of right lower extremity with fat layer exposed (Chronic) Complete below knee amputation of left lower extremity (Chronic) Ulcer of left lower extremity with fat layer exposed (Chronic) Chronic kidney disease (CKD) (Chronic) Type 2 diabetes mellitus with diabetic polyneuropathy (Chronic) Delayed wound healing (Chronic) Malnutrition (Chronic) Venous insufficiency (Chronic) Lymphedema (Chronic) 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
== END 2018-07-07 23:59 ==
LOC: WC 08:00
PROVIDERS: Family Provider Family Medicine Geriatric Medicine; PCP Family Medicine Geriatric Medicine; Referring Provider Podiatrist; Visit Provider Podiatrist
DX: E11.621 Type 2 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with foot ulcer (principal); E11.42 Type 2 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with diabetic polyneuropathy; L97.822 Non-pressure chronic ulcer of other part of left lower leg with fat layer exposed; L97.512 Non-pressure chronic ulcer of other part of right foot with fat layer exposed; L98.8 Other specified disorders of the skin and subcutaneous tissue; I89.0 Lymphedema, not elsewhere classified; I87.2 Venous insufficiency (chronic) (peripheral); R60.0 Localized edema; L97.412 Non-pressure chronic ulcer of right heel and midfoot with fat layer exposed; E11.22 Type 2 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with diabetic chronic kidney disease; N18.9 Chronic kidney disease, unspecified; I12.9 Hypertensive chronic kidney disease with stage 1 through stage 4 chronic kidney disease, or unspecified chronic kidney disease; E66.01 Morbid (severe) obesity due to excess calories; Z71.3 Dietary counseling and surveillance; T87.89 Other complications of amputation stump; Y83.8 Other surgical procedures as the cause of abnormal reaction of the patient, or of later complication, without mention of misadventure at the time of the procedure; L97.812 Non-pressure chronic ulcer of other part of right lower leg with fat layer exposed
CPT/HCPCS: 11042; 11045; 29581; 82962; 93923; 99183; G0277

== ENCOUNTER → 2018-07-28 09:44 | Outpatient (CLI) | payer MEDICARE, MEDICAID, SELFPAY ==
--- NOTE | 2018-07-28 09:47 | ADUL_ITS ---
Reason For Study: Atherosclerosis with ulcer Right Velocities Common Femoral Artery, prox = 157 cm./sec. Supf Femoral Artery, prox = 144 cm./sec. Supf Femoral Artery, mid = 129 cm./sec. Supf Femoral Artery, dist. = 192 cm./sec. Profunda Femoral Artery = 67 cm./sec. Popliteal Artery, prox. = 191 cm./sec. Popliteal Artery, mid = 182 cm./sec. Popliteal Artery, dist = 140 cm./sec. Post. Tibial Artery, prox = 126 cm./sec. Post. Tibial Artery, mid = 144 cm./sec. Post. Tibial Artery, dist = 151 cm./sec. Ant. Tibial Artery, prox = 176 cm./sec. Ant. Tibial Artery, mid = 125 cm./sec. Ant. Tibial Artery, dist = 215 cm./sec. Peroneal artey not visualized. Procedure Exam performed in department. Interpretation Summary 1. No stenosis noted in right lower extremity. Appears slightly elevated velocities throughout and no significant change. Biphasic flow throughout. Ordering Physician: Daljit Nixon Referring Physician: Arnie Bullock Chi Performed By: Nadeen Campos RVT
--- NOTE | 2018-07-28 09:56 | ART_ITS ---
Reason For Study: Atherosclerosis with ulcers Procedure A bilateral lower extremity continuous wave Doppler with analog waveform analysis and ankle brachial indexes. Left Segmental Pressures Left brachial= 137mmHg. Right Segmental Pressures Right brachial= 146mmHg. Right posterior tibial artery = 159mmHg. Right dorsalis pedis artery = 174mmHg. The right dorsalis pedis waveforms are biphasic. The right posterior tibial artery waveforms are biphasic. Indices The right ankle brachial index by the dorsalis pedis is 1.2. The right ankle brachial index by the posterior tibial artery is 1.1. Interpretation Summary 1. Right leg with no significant occlussive disease at rest with myranda 1.19. Ordering Physician: Daljit Nixon Referring Physician: Arnie Bullock Chi Performed By: Nadeen Campos RVT
== END ==
PROVIDERS: Family Provider Family Medicine Geriatric Medicine; PCP Family Medicine Geriatric Medicine; Referring Provider Surgery Vascular Surgery; Visit Provider Surgery Vascular Surgery
DX: I70.234 Atherosclerosis of native arteries of right leg with ulceration of heel and midfoot (principal); E11.621 Type 2 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with foot ulcer; E11.42 Type 2 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with diabetic polyneuropathy; L97.822 Non-pressure chronic ulcer of other part of left lower leg with fat layer exposed; E11.22 Type 2 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with diabetic chronic kidney disease; N18.9 Chronic kidney disease, unspecified; T87.89 Other complications of amputation stump; Y83.9 Surgical procedure, unspecified as the cause of abnormal reaction of the patient, or of later complication, without mention of misadventure at the time of the procedure; L97.512 Non-pressure chronic ulcer of other part of right foot with fat layer exposed; Z71.3 Dietary counseling and surveillance; E66.01 Morbid (severe) obesity due to excess calories; R60.0 Localized edema
CPT/HCPCS: 29581; 93922; 93926; 99214; G0463

== ENCOUNTER 2018-08-04 12:00 | Outpatient (RCR) | payer MEDICARE, MEDICAID, SELFPAY ==
[2018-07-08 01:05] VITALS: BP 121/67; PULSE 95; RESP 18; TEMP 35.3
[2018-07-11 10:01] LABS: Bedside Glucose 312 mg/dL (70-110)
[2018-07-12 09:56] LABS: Bedside Glucose 178 mg/dL (70-110)
--- NOTE | 2018-07-12 10:11 | PCM.HBO.PN ---
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 Right toe ulcers and left stump ulcers. Discoloration and swelling right leg. New right leg ulcers. 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 Progress: Patient appears to have tolerated today's hyperbaric oxygen session, which is his 78th such treatment. Tolerance of hyperbaric oxygen therapy: Hyperbaric oxygen therapy was administered as per the facility protocol. Patient tolerated hyperbaric oxygen therapy well, without complaints or complications. Upon emergence from the hyperbaric chamber, patient's vital signs remained stable. He was discharged in good condition. 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 (Chronic) Ulcer of left lower extremity with fat layer exposed (Chronic) Ulcer of right lower extremity with fat layer exposed (Chronic) Ulcer of left lower extremity, limited to breakdown of skin (Chronic) Ulcer of left lower extremity, limited to breakdown of skin (Chronic) Non-pressure chronic ulcer of other part of right foot with fat layer exposed (Chronic) Complete below knee amputation of left lower extremity (Chronic) Ulcer of right foot with necrosis of muscle (Chronic) Ulcer of right foot with fat layer exposed (Chronic) 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) Delayed wound healing (Chronic) Malnutrition (Chronic) Venous insufficiency (Chronic) Lymphedema (Chronic) Edema of both legs (Chronic) GERD (gastroesophageal reflux disease) (Chronic) Hypertension (Chronic) Hyperlipemia (Chronic) Morbid obesity with BMI of 45.0-49.9, adult (Chronic) Hyperlipidemia associated with type 2 diabetes mellitus (Chronic) 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 Allergies/Adverse Reactions: Allergies bee venom protein (honey bee) Allergy (Verified 12/13/17 09:30) Swelling metronidazole [From Flagyl] Allergy (Verified 12/13/17 09:30) Itching Home Medications: Ambulatory Orders Medication Instructions Recorded Atorvastatin Calcium [Lipitor] 10 mg PO QHS 01/08/17 Brimonidine Tartrate 0.2% 1 drop EACH EYE BID 01/08/17 [Brimonidine 0.2% 5Ml Bottle] Ergocalciferol [Vitamin D] 50,000 unit PO FR 01/08/17 Gabapentin [Neurontin] 1,600 mg PO QHS 01/08/17 Gabapentin [Neurontin] 600 mg PO DAILY 01/08/17 Insulin U-500 [Humulin R U-500 105 units SC DINNER 01/08/17 ([facility])] Insulin U-500 [Humulin R U-500 105 units SC LUNCH 01/08/17 ([facility])] Insulin U-500 [Humulin R U-500 160 units SC BREAKFAST 01/08/17 ([facility])] Latanoprost 0.005% [Xalatan 1 drop EACH EYE QHS 01/08/17 Opthalmic] Losartan Potassium [Cozaar] 50 mg PO DAILY 01/08/17 Nebivolol HCl [Bystolic (Beta 10 mg PO DAILY 01/08/17 Akira)] Omeprazole [Prilosec] 40 mg PO DAILY 01/08/17 Acetaminophen [Tylenol Tablet] 650 mg PO Q6H PRN PRN tablet 09/07/17 Clopidogrel Bisulfate [Plavix] 75 mg PO DAILY 09/07/17 Menthol/Lanolin/Calamine/Znox 1 applic TOPICAL 0600,2200 tube 09/21/17 [Calmoseptine Ointment] Nutritional Supplement [Madhu - 1 packet PO BIDCM #60 packet 09/21/17 [facility] FLA[facility]OR] Nystatin Powder [Mycostatin Powder] 1 applic TOPICAL 0600,2200 bottle 09/21/17 Ferrous Sulfate [Iron] 325 mg PO BID 10/14/17 Clindamycin HCl 300 mg PO [id number] #40 cap 12/13/17 Maternal Family History: Diabetes Paternal Family History: Hypertension Sibling Family History: Diabetes Smoking Status: Former smoker Physical Exam Vital Signs Temp Pulse Resp BP 95.5 F L 95 18 121/67 H 07/08/18 01:05 07/08/18 01:05 07/08/18 01:05 07/08/18 01:05 General: Alert, Oriented x3, Cooperative HEENT: Atraumatic, TM's Clear Lungs: Clear to auscultation, Normal air movement Cardiovascular: Regular rate, Regular Rhythm Psych/Mental Status: Normal Affect, Appropriate, Alert and oriented to time, place, person, mood and affect Assessment/Plan The patient appears to be tolerating hyperbaric oxygen therapy well, which will be continued as per the patient's medical plan.
--- NOTE | 2018-07-12 10:14 | HBO.PN.PCM_ITS ---
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 Right toe ulcers and left stump ulcers. Discoloration and swelling right leg. New right leg ulcers. 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 Progress: Patient appears to have tolerated today's hyperbaric oxygen session, which is his 78th such treatment. Tolerance of hyperbaric oxygen therapy: Hyperbaric oxygen therapy was administered as per the facility protocol. Patient tolerated hyperbaric oxygen therapy well, without complaints or complications. Upon emergence from the hyperbaric chamber, patient's vital signs remained stable. He was discharged in good condition. 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 (Chronic) Ulcer of left lower extremity with fat layer exposed (Chronic) Ulcer of right lower extremity with fat layer exposed (Chronic) Ulcer of left lower extremity, limited to breakdown of skin (Chronic) Ulcer of left lower extremity, limited to breakdown of skin (Chronic) Non-pressure chronic ulcer of other part of right foot with fat layer exposed (Chronic) Complete below knee amputation of left lower extremity (Chronic) Ulcer of right foot with necrosis of muscle (Chronic) Ulcer of right foot with fat layer exposed (Chronic) 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) Delayed wound healing (Chronic) Malnutrition (Chronic) Venous insufficiency (Chronic) Lymphedema (Chronic) Edema of both legs (Chronic) GERD (gastroesophageal reflux disease) (Chronic) Hypertension (Chronic) Hyperlipemia (Chronic) Morbid obesity with BMI of 45.0-49.9, adult (Chronic) Hyperlipidemia associated with type 2 diabetes mellitus (Chronic) 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 Allergies/Adverse Reactions: Allergies bee venom protein (honey bee) Allergy (Verified 12/13/17 09:30) Swelling metronidazole [From Flagyl] Allergy (Verified 12/13/17 09:30) Itching Home Medications: Ambulatory Orders Medication Instructions Recorded Atorvastatin Calcium [Lipitor] 10 mg PO QHS 01/08/17 Brimonidine Tartrate 0.2% 1 drop EACH EYE BID 01/08/17 [Brimonidine 0.2% 5Ml Bottle] Ergocalciferol [Vitamin D] 50,000 unit PO FR 01/08/17 Gabapentin [Neurontin] 1,600 mg PO QHS 01/08/17 Gabapentin [Neurontin] 600 mg PO DAILY 01/08/17 Insulin U-500 [Humulin R U-500 105 units SC DINNER 01/08/17 ([facility])] Insulin U-500 [Humulin R U-500 105 units SC LUNCH 01/08/17 ([facility])] Insulin U-500 [Humulin R U-500 160 units SC BREAKFAST 01/08/17 ([facility])] Latanoprost 0.005% [Xalatan 1 drop EACH EYE QHS 01/08/17 Opthalmic] Losartan Potassium [Cozaar] 50 mg PO DAILY 01/08/17 Nebivolol HCl [Bystolic (Beta 10 mg PO DAILY 01/08/17 Akira)] Omeprazole [Prilosec] 40 mg PO DAILY 01/08/17 Acetaminophen [Tylenol Tablet] 650 mg PO Q6H PRN PRN tablet 09/07/17 Clopidogrel Bisulfate [Plavix] 75 mg PO DAILY 09/07/17 Menthol/Lanolin/Calamine/Znox 1 applic TOPICAL 0600,2200 tube 09/21/17 [Calmoseptine Ointment] Nutritional Supplement [Madhu - 1 packet PO BIDCM #60 packet 09/21/17 [place] [facility]] Nystatin Powder [Mycostatin Powder] 1 applic TOPICAL 0600,2200 bottle 09/21/17 Ferrous Sulfate [Iron] 325 mg PO BID 10/14/17 Clindamycin HCl 300 mg PO [id number] #40 cap 12/13/17 Maternal Family History: Diabetes Paternal Family History: Hypertension Sibling Family History: Diabetes Smoking Status: Former smoker Physical Exam Vital Signs Temp Pulse Resp BP 95.5 F L 95 18 121/67 H 07/08/18 01:05 07/08/18 01:05 07/08/18 01:05 07/08/18 01:05 General: Alert, Oriented x3, Cooperative HEENT: Atraumatic, TM's Clear Lungs: Clear to auscultation, Normal air movement Cardiovascular: Regular rate, Regular Rhythm Psych/Mental Status: Normal Affect, Appropriate, Alert and oriented to time, place, person, mood and affect Assessment/Plan The patient appears to be tolerating hyperbaric oxygen therapy well, which will be continued as per the patient's medical plan.
[2018-07-12 12:11] LABS: Bedside Glucose 178 mg/dL (70-110)
[2018-07-12 12:23] VITALS: BP 125/51; BP 130/66; PULSE 97; PULSE 99; RESP 18; TEMP 36; TEMP 36.4
[2018-07-13 13:09] VITALS: BP 147/78; PULSE 91; RESP 18; TEMP 36.1
--- NOTE | 2018-07-13 14:21 | PCM.WC.PN ---
(1) Atherosclerosis of lower extremity with ulceration Status: Chronic Current Visit: Yes Code(s): I70.25 - Atherosclerosis of [place] arteries of other extremities with ulceration (2) Ulcer of left lower extremity with fat layer exposed Status: Chronic Current Visit: Yes Code(s): L97.922 - Non-pressure chronic ulcer of unspecified part of left lower leg with fat layer exposed (3) Other specified peripheral vascular diseases Status: Suspected Current Visit: Yes Code(s): I73.89 - Other specified peripheral vascular diseases (4) Chronic ulcer of right foot with fat layer exposed Status: Chronic Current Visit: Yes Code(s): L97.512 - Non-pressure chronic ulcer of other part of right foot with fat layer exposed (5) Ulcer of right lower extremity with fat layer exposed Status: Chronic Current Visit: Yes Code(s): L97.912 - Non-pressure chronic ulcer of unspecified part of right lower leg with fat layer exposed (6) Complete below knee amputation of left lower extremity Status: Chronic Current Visit: Yes Qualifiers: Code(s): S88.112A - Complete traumatic amputation at level between knee and ankle, left lower leg, initial encounter (7) Chronic kidney disease (CKD) Status: Chronic Current Visit: Yes Qualifiers: Code(s): N18.9 - Chronic kidney disease, unspecified (8) Type 2 diabetes mellitus with diabetic polyneuropathy Status: Chronic Current Visit: Yes Code(s): E11.42 - Type 2 diabetes mellitus with diabetic polyneuropathy (9) Delayed wound healing Status: Chronic Current Visit: Yes Code(s): T14.8 - Other injury of unspecified body region (10) Malnutrition Status: Chronic Current Visit: Yes Code(s): E46 - Unspecified protein-calorie malnutrition (11) Venous insufficiency Status: Chronic Current Visit: Yes Code(s): I87.2 - Venous insufficiency (chronic) (peripheral) (12) Lymphedema Status: Chronic Current Visit: Yes Code(s): I89.0 - Lymphedema, not elsewhere classified Type of Wound Date of Service: 07/13/18 Chief Complaint: 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 Right toe ulcers and left stump ulcers. Discoloration and swelling right leg. New right leg ulcers. History of Wound: 58-year-old white male returns to clinic for follow-up of bilateral leg ulcers and right foot ulcers. He denies fever, chill, nausea, vomiting, loss of appetite. He had multiple advanced wound care product applications. He continues with hyperbaric oxygen therapy sessions. He presents in a wheelchair today. He denies odors or redness. He did follow-up with vascular surgery as advised and plans to have additional intervention performed. Progress of Wound: Stable right toe and heel areas. Left stump site ulcer stable. Stable right leg ulcers - Physical Exam Vital Signs Temp Pulse Resp BP 97 F L 91 18 147/78 H 07/13/18 13:09 07/13/18 13:09 07/13/18 13:09 07/13/18 13:09 General: Alert, Oriented x3, Cooperative Extremities: No cyanosis - Warmth to right forefoot has improved compared to the last 3 weeks, Capillary Refill Less than 3 Seconds, No Calf Tenderness - Negative Harry and Badillo sign right lower extremity, Diminished Peripheral Pulses, Edema - Bilateral lymphedema, - - Left below-knee amputation Skin: Ulcer/ Wound - No purulence, erythema, streaking, odor, or infection bilateral. No deep tissue exposure Wound Measurements and Assessment WC - Nurse 1 - General Ulcer Measurement Start: 07/12/18 12:22 Freq: Status: Active Protocol: Activity Type Activity Date Activity User E-Sign Co-Sign Detail Recorded Client Recorded Date Recorded By Document 07/13/18 13:09 [id number] 07/13/18 13:39 RB 07/13/18 13:09 Wound Center Nurse 1 [Ulcer Assessment] #24 R Styles -Combined with other wound No -Current Size (cm) - Length 2 -Current Size (cm) - Width 2 -Current Size (cm) - Depth 0.1 -Total Square Cm 4 -Photo Taken No -Tunneling No -Undermining/Tunneling No -Circular Undermining No -Exudate Amt Medium -Exudate Type Serosanguineous -Wound Margin Distinct, Outline Attached -Granulation Amt Medium (34-66%) -Granulation Quality [place] -Slough/Fibrin Yes -Necrosis Amt Medium (34-66%) -Necrotic Tissue Type Adherent Slough -Structure Exposed N/A -Texture (Martha-wound Skin Appearance) Assessed -Moisture (Martha-wound Skin Appearance Maceration ) -Color (Martha-wound Skin Appearance) Assessed -Temperature (Martha-wound Skin No Abnormality Appearance) (Pt Warm) -Tenderness on Palpation (Martha-wound No Skin Appearance) -Ulcer Cleansing Wound Cleanser -Foul Odor after Cleansing No -Anesthetic Used 4% Lidocaine Solution #23 R Post -Combined with other wound No -Current Size (cm) - Length 10 -Current Size (cm) - Width 17 -Current Size (cm) - Depth 0.1 -Total Square Cm 170 -Photo Taken No -Tunneling No -Undermining/Tunneling No -Exudate Amt Medium -Exudate Type Serosanguineous -Wound Margin Distinct, Outline Attached -Granulation Amt Medium (34-66%) -Granulation Quality [place] -Slough/Fibrin Yes -Necrosis Amt Small (1-33%) -Necrotic Tissue Type Adherent Slough -Structure Exposed N/A -Texture (Martha-wound Skin Appearance) Assessed -Moisture (Martha-wound Skin Appearance Maceration ) -Color (Martha-wound Skin Appearance) Assessed -Temperature (Martha-wound Skin No Abnormality Appearance) (Pt Warm) -Tenderness on Palpation (Martha-wound No Skin Appearance) -Ulcer Cleansing Wound Cleanser -Foul Odor after Cleansing No -Anesthetic Used 4% Lidocaine Solution #22 left stump -Combined with other wound No -Current Size (cm) - Length 6 -Current Size (cm) - Width 7 -Current Size (cm) - Depth 0.1 -Total Square Cm 42 -Photo Taken No -Tunneling No -Undermining/Tunneling No -Circular Undermining No -Exudate Amt Medium -Exudate Type Serosanguineous -Wound Margin Distinct, Outline Attached -Granulation Amt Medium (34-66%) -Granulation Quality [place] -Slough/Fibrin Yes -Necrosis Amt Small (1-33%) -Necrotic Tissue Type Adherent Slough -Structure Exposed N/A -Texture (Martha-wound Skin Appearance) Assessed -Moisture (Martha-wound Skin Appearance Maceration ) -Color (Martha-wound Skin Appearance) Assessed -Temperature (Martha-wound Skin No Abnormality Appearance) (Pt Warm) -Tenderness on Palpation (Martha-wound No Skin Appearance) -Ulcer Cleansing Wound Cleanser -Foul Odor after Cleansing No -Anesthetic Used 4% Lidocaine Solution #13 R Med Heel -Combined with other wound No -Current Size (cm) - Length 2 -Current Size (cm) - Width 3.2 -Current Size (cm) - Depth 0.1 -Total Square Cm 6.4 -Photo Taken No -Tunneling No -Undermining/Tunneling No -Circular Undermining No -Exudate Amt Small -Exudate Type Serosanguineous -Wound Margin Distinct, Outline Attached -Granulation Amt Small (1-33%) -Granulation Quality [place] -Slough/Fibrin Yes -Necrosis Amt Medium (34-66%) -Necrotic Tissue Type Adherent Slough -Structure Exposed N/A -Texture (Martha-wound Skin Appearance) Assessed Callus -Moisture (Martha-wound Skin Appearance Assessed ) -Color (Martha-wound Skin Appearance) Assessed -Temperature (Martha-wound Skin No Abnormality Appearance) (Pt Warm) -Tenderness on Palpation (Martha-wound No Skin Appearance) -Ulcer Cleansing Wound Cleanser -Foul Odor after Cleansing No -Anesthetic Used 4% Lidocaine Solution #21 Right Foot-Toes w/Metatarsal Head circumfrential -Combined with other wound No -Current Size (cm) - Length 10.5 -Current Size (cm) - Width 8 -Current Size (cm) - Depth 0.1 -Total Square Cm 84.0 -Photo Taken No -Tunneling No -Undermining/Tunneling No -Circular Undermining No -Exudate Amt Medium -Exudate Type Serosanguineous -Wound Margin Distinct, Outline Attached -Granulation Amt Medium (34-66%) -Granulation Quality [place] -Slough/Fibrin Yes -Necrosis Amt Medium (34-66%) -Necrotic Tissue Type Adherent Slough -Structure Exposed N/A -Texture (Martha-wound Skin Appearance) Assessed -Moisture (Martha-wound Skin Appearance Assessed ) Maceration -Color (Martha-wound Skin Appearance) Assessed Erythema -Temperature (Martha-wound Skin No Abnormality Appearance) (Pt Warm) -Tenderness on Palpation (Martha-wound No Skin Appearance) -Ulcer Cleansing Wound Cleanser -Foul Odor after Cleansing No -Anesthetic Used 4% Lidocaine Solution [Edema Assessment] -Lower Limb Edema Present Yes -Right Calf (cm) 40 -Right Ankle (cm) 32 -Left Ankle (cm) 46.5 WC - Nurse 2 - General Ulcer CM Notes Start: 07/12/18 12:22 Freq: Status: Active Protocol: Activity Type Activity Date Activity User E-Sign Co-Sign Detail Recorded Client Recorded Date Recorded By Document 07/13/18 13:52 [id number] 07/13/18 13:56 ANUP 07/13/18 13:52 Wound Center Nurse 2 [Procedure/Treatment] #24 R Styles -Time 13:53 -Correct Patient Yes -Correct Side, Site, Position Yes -Correct Procedure Yes -Procedure Performed Yes -Type of Procedure Debridement -Clinical Debridement Subcutaneous -Post Debridement Size (cm) - Length 2.1 -Post Debridement Size (cm) - Width 2 -Post Debridement Size (cm) - Depth 0.1 -Total Square Cm 4.2 -Wound/Ulcer Outcome Not Healed -Ulcer Cleansing Rinsed/ Irrigated with Saline -Foul Odor after Cleansing No -Bioengineered Tissue No -Bleeding Controlled with Pressure -Offloading No -Treatment Response Procedure Tolerated Well #23 R Post -Time 13:53 -Correct Patient Yes -Correct Side, Site, Position Yes -Correct Procedure Yes -Procedure Performed Yes -Type of Procedure Debridement -Clinical Debridement Selective -Post Debridement Size (cm) - Length 10.1 -Post Debridement Size (cm) - Width 17.1 -Post Debridement Size (cm) - Depth 0.1 -Total Square Cm 172.71 -Wound/Ulcer Outcome Not Healed -Ulcer Cleansing Rinsed/ Irrigated with Saline -Foul Odor after Cleansing No -Bioengineered Tissue No -Bleeding Controlled with Pressure -Offloading No -Treatment Response Procedure Tolerated Well #22 left stump -Time 13:53 -Correct Patient Yes -Correct Side, Site, Position Yes -Correct Procedure Yes -Procedure Performed Yes -Type of Procedure Debridement -Clinical Debridement Subcutaneous -Post Debridement Size (cm) - Length 6.1 -Post Debridement Size (cm) - Width 7 -Post Debridement Size (cm) - Depth 0.1 -Total Square Cm 42.7 -Wound/Ulcer Outcome Not Healed -Ulcer Cleansing Rinsed/ Irrigated with Saline -Foul Odor after Cleansing No -Bioengineered Tissue No -Bleeding Controlled with Pressure -Offloading No -Treatment Response Procedure Tolerated Well #13 R Med Heel -Time 13:54 -Correct Patient Yes -Correct Side, Site, Position Yes -Correct Procedure Yes -Procedure Performed Yes -Type of Procedure Debridement -Clinical Debridement Subcutaneous -Post Debridement Size (cm) - Length 2.1 -Post Debridement Size (cm) - Width 3.2 -Post Debridement Size (cm) - Depth 0.1 -Total Square Cm 6.72 -Wound/Ulcer Outcome Not Healed -Ulcer Cleansing Rinsed/ Irrigated with Saline -Foul Odor after Cleansing No -Bioengineered Tissue No -Bleeding Controlled with Pressure -Offloading No -Treatment Response Procedure Tolerated Well #21 Right Foot-Toes w/Metatarsal Head circumfrential -Time 13:55 -Correct Patient Yes -Correct Side, Site, Position Yes -Correct Procedure Yes -Procedure Performed Yes -Type of Procedure Debridement -Clinical Debridement Subcutaneous -Post Debridement Size (cm) - Length 10.6 -Post Debridement Size (cm) - Width 8 -Post Debridement Size (cm) - Depth 0.1 -Total Square Cm 84.8 -Wound/Ulcer Outcome Not Healed -Ulcer Cleansing Rinsed/ Irrigated with Saline -Foul Odor after Cleansing No -Bioengineered Tissue No -Bleeding Controlled with Pressure -Offloading No -Treatment Response Procedure Tolerated Well [See Physician Procedure note for Specifics] Pain Scale: 0-10 Numeric [Pain] -Is Patient Pain Free? Yes Musculoskeletal: Muscle Wasting Neurological: - - Lack of epicritic sensation light touch bilateral lower extremities Psych/Mental Status: Normal Affect, Appropriate Debridement Note Post-Debridement Measurements/Treatment WC - Nurse 2 - General Ulcer CM Notes Start: 07/12/18 12:22 Freq: Status: Active Protocol: Activity Type Activity Date Activity User E-Sign Co-Sign Detail Recorded Client Recorded Date Recorded By Document 07/13/18 13:52 ANUP [id number] 07/13/18 13:56 ANUP 07/13/18 13:52 Wound Center Nurse 2 #24 R Styles -Time 13:53 -Correct Patient Yes -Correct Side, Site, Position Yes -Correct Procedure Yes -Procedure Performed Yes -Type of Procedure Debridement -Clinical Debridement Subcutaneous -Post Debridement Size (cm) - Length 2.1 -Post Debridement Size (cm) - Width 2 -Post Debridement Size (cm) - Depth 0.1 -Total Square Cm 4.2 -Wound/Ulcer Outcome Not Healed -Ulcer Cleansing Rinsed/ Irrigated with Saline -Foul Odor after Cleansing No -Bioengineered Tissue No -Bleeding Controlled with Pressure -Offloading No -Treatment Response Procedure Tolerated Well #23 R Post -Time 13:53 -Correct Patient Yes -Correct Side, Site, Position Yes -Correct Procedure Yes -Procedure Performed Yes -Type of Procedure Debridement -Clinical Debridement Selective -Post Debridement Size (cm) - Length 10.1 -Post Debridement Size (cm) - Width 17.1 -Post Debridement Size (cm) - Depth 0.1 -Total Square Cm 172.71 -Wound/Ulcer Outcome Not Healed -Ulcer Cleansing Rinsed/ Irrigated with Saline -Foul Odor after Cleansing No -Bioengineered Tissue No -Bleeding Controlled with Pressure -Offloading No -Treatment Response Procedure Tolerated Well #22 left stump -Time 13:53 -Correct Patient Yes -Correct Side, Site, Position Yes -Correct Procedure Yes -Procedure Performed Yes -Type of Procedure Debridement -Clinical Debridement Subcutaneous -Post Debridement Size (cm) - Length 6.1 -Post Debridement Size (cm) - Width 7 -Post Debridement Size (cm) - Depth 0.1 -Total Square Cm 42.7 -Wound/Ulcer Outcome Not Healed -Ulcer Cleansing Rinsed/ Irrigated with Saline -Foul Odor after Cleansing No -Bioengineered Tissue No -Bleeding Controlled with Pressure -Offloading No -Treatment Response Procedure Tolerated Well #13 R Med Heel -Time 13:54 -Correct Patient Yes -Correct Side, Site, Position Yes -Correct Procedure Yes -Procedure Performed Yes -Type of Procedure Debridement -Clinical Debridement Subcutaneous -Post Debridement Size (cm) - Length 2.1 -Post Debridement Size (cm) - Width 3.2 -Post Debridement Size (cm) - Depth 0.1 -Total Square Cm 6.72 -Wound/Ulcer Outcome Not Healed -Ulcer Cleansing Rinsed/ Irrigated with Saline -Foul Odor after Cleansing No -Bioengineered Tissue No -Bleeding Controlled with Pressure -Offloading No -Treatment Response Procedure Tolerated Well #21 Right Foot-Toes w/Metatarsal Head circumfrential -Time 13:55 -Correct Patient Yes -Correct Side, Site, Position Yes -Correct Procedure Yes -Procedure Performed Yes -Type of Procedure Debridement -Clinical Debridement Subcutaneous -Post Debridement Size (cm) - Length 10.6 -Post Debridement Size (cm) - Width 8 -Post Debridement Size (cm) - Depth 0.1 -Total Square Cm 84.8 -Wound/Ulcer Outcome Not Healed -Ulcer Cleansing Rinsed/ Irrigated with Saline -Foul Odor after Cleansing No -Bioengineered Tissue No -Bleeding Controlled with Pressure -Offloading No -Treatment Response Procedure Tolerated Well Pain Scale: 0-10 Numeric Is Patient Pain Free? Yes Wound debrided: stump BKA Laterality: Left Wound Grade/Stage: grade 1 Type of Debridement: Excisional debridement Anesthesia Used: 5% Lidocaine Gel Depth: in the subcutaneous layer Percentage of wound debrided: 100 Instrument Used: #15 blade Tissue Removed: fibrous, devitalized subcutaneous, biofilm, slough Severity: Fat Layer Exposed Amount of bleeding with debridement: Mild Bleeding Controlled with: Pressure Patient tolerated procedure well - Additional Wound Wound debrided: heel Laterality: Right Wound Grade/Stage: grade 3 Type of Debridement: Excisional debridement Anesthesia Used: 5% Lidocaine Gel Depth: in the subcutaneous layer Percentage of wound debrided: 100 Instrument Used: #15 blade Tissue Removed: fibrous, devitalized subcutaneous, biofilm, slough Severity: Fat Layer Exposed Amount of bleeding with debridement: Mild Bleeding Controlled with: Pressure Patient tolerated procedure: Patient tolerated procedure well - Additional Wound Wound debrided: toes Laterality: Right Wound Grade/Stage: grade 1 Type of Debridement: Excisional debridement Anesthesia Used: 5% Lidocaine Gel Depth: in the subcutaneous layer Percentage of wound debrided: 100 Instrument Used: #15 blade Tissue Removed: fibrous, devitalized subcutaneous, biofilm, slough Severity: Fat Layer Exposed Amount of bleeding with debridement: Mild Bleeding Controlled with: Pressure Patient tolerated procedure: Patient tolerated procedure well Assessment/Plan Active Problems Chronic ulcer of right foot with fat layer exposed (Chronic) Ulcer of right lower extremity with fat layer exposed (Chronic) Complete below knee amputation of left lower extremity (Chronic) Ulcer of left lower extremity with fat layer exposed (Chronic) Chronic kidney disease (CKD) (Chronic) Type 2 diabetes mellitus with diabetic polyneuropathy (Chronic) Delayed wound healing (Chronic) Malnutrition (Chronic) Venous insufficiency (Chronic) Lymphedema (Chronic) 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 Assessment: Right leg ulcer. ulcer right forefoot. right heel ulcer muscle involved and exposed fascia without infection noted today (previous grade 3); s/p surgical debridement and application of advance wound care products (amniofil and epicord). Right foot hypothermia / small vessel disease. 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 Lymphedema. Chronic lower extremity edema and venous insufficiency. Morbid obesity. Type 2 diabetes uncontrolled with peripheral neuropathy. CKD. Hypertension. Malnutrition. Delayed wound healing. Nonadherence to treatment plan Plan: I reviewed and discussed his case debridement done as documented above in the clinical panel; this procedure was well tolerated. I applied aquacel ag and he is advised to change this every 1-2 days with home health assistance. Continue compression left with 3M2L. To avoid trauma and cold exposure to the right foot as he sustained last week. His recent deterioration and increased ulcer formation to the right leg and previous change in temperature palpation was noted. He was re-referred to vascular surgeon Dr. Nixon who treated him for PAD and lymphedema. The current recommendation is to continue with strict compression with lymphedema pumps and an updated arterial duplex will also be performed to evaluate his old stent status. Evaluation and input is greatly appreciated. Continue protein suppplements and increased protein in diet. To continue hyperbaric oxygen therapy as scheduled on complaint basis. I encouraged continued use. I also recommend a lymphedema clinic. He went approximately 3 years ago and found this to be very helpful. He no longer has his thigh-high compression garments that were arranged for him during this last session. There is a lymphedema clinic in [place] and his information was sent over. They can only see him once he is d/c from home health; this is noted. Hypothermia prevention, risks, complications and education was discussed today. He was advised to strictly cover his foot and to avoid cold or moisture exposure while outside. His temperature and forefoot appearance of the right lower extremity are improved compared to last week and it is noted it is much warmer outside. He understands he is at high risk for limb loss due to frostbite at this already compromised limb site. Follow up in 1 week with at the wound healing center or call sooner if he has any questions or concerns.
[2018-07-18 09:41] LABS: Bedside Glucose 215 mg/dL (70-110)
[2018-07-18 10:01] VITALS: BP 139/75; BP 144/63; PULSE 91; PULSE 98; RESP 16; RESP 18; TEMP 36.3; TEMP 36.5
[2018-07-18 11:51] LABS: Bedside Glucose 176 mg/dL (70-110)
[2018-07-19 09:41] LABS: Bedside Glucose 236 mg/dL (70-110)
[2018-07-19 12:06] LABS: Bedside Glucose 180 mg/dL (70-110)
--- NOTE | 2018-07-19 12:10 | PCM.HBO.PN ---
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 Right toe ulcers and left stump ulcers. Discoloration and swelling right leg. New right leg ulcers. 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 Progress: Patient appears to have tolerated today's hyperbaric oxygen session, which is his 79th such treatment. Tolerance of hyperbaric oxygen therapy: Hyperbaric oxygen therapy was administered as per the facility protocol. Patient tolerated hyperbaric oxygen therapy well, without complaints or complications. Upon emergence from the hyperbaric chamber, patient's vital signs remained stable. He was discharged in good condition. 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 (Chronic) Ulcer of left lower extremity with fat layer exposed (Chronic) Ulcer of right lower extremity with fat layer exposed (Chronic) Ulcer of left lower extremity, limited to breakdown of skin (Chronic) Ulcer of left lower extremity, limited to breakdown of skin (Chronic) Non-pressure chronic ulcer of other part of right foot with fat layer exposed (Chronic) Complete below knee amputation of left lower extremity (Chronic) Ulcer of right foot with necrosis of muscle (Chronic) Ulcer of right foot with fat layer exposed (Chronic) 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) Delayed wound healing (Chronic) Malnutrition (Chronic) Venous insufficiency (Chronic) Lymphedema (Chronic) Edema of both legs (Chronic) GERD (gastroesophageal reflux disease) (Chronic) Hypertension (Chronic) Hyperlipemia (Chronic) Morbid obesity with BMI of 45.0-49.9, adult (Chronic) Hyperlipidemia associated with type 2 diabetes mellitus (Chronic) 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 Allergies/Adverse Reactions: Allergies bee venom protein (honey bee) Allergy (Verified 12/13/17 09:30) Swelling metronidazole [From Flagyl] Allergy (Verified 12/13/17 09:30) Itching Home Medications: Ambulatory Orders Medication Instructions Recorded Atorvastatin Calcium [Lipitor] 10 mg PO QHS 01/08/17 Brimonidine Tartrate 0.2% 1 drop EACH EYE BID 01/08/17 [Brimonidine 0.2% 5Ml Bottle] Ergocalciferol [Vitamin D] 50,000 unit PO FR 01/08/17 Gabapentin [Neurontin] 1,600 mg PO QHS 01/08/17 Gabapentin [Neurontin] 600 mg PO DAILY 01/08/17 Insulin U-500 [Humulin R U-500 105 units SC DINNER 01/08/17 ([facility])] Insulin U-500 [Humulin R U-500 105 units SC LUNCH 01/08/17 ([facility])] Insulin U-500 [Humulin R U-500 160 units SC BREAKFAST 01/08/17 ([facility])] Latanoprost 0.005% [Xalatan 1 drop EACH EYE QHS 01/08/17 Opthalmic] Losartan Potassium [Cozaar] 50 mg PO DAILY 01/08/17 Nebivolol HCl [Bystolic (Beta 10 mg PO DAILY 01/08/17 Akira)] Omeprazole [Prilosec] 40 mg PO DAILY 01/08/17 Acetaminophen [Tylenol Tablet] 650 mg PO Q6H PRN PRN tablet 09/07/17 Clopidogrel Bisulfate [Plavix] 75 mg PO DAILY 09/07/17 Menthol/Lanolin/Calamine/Znox 1 applic TOPICAL 0600,2200 tube 09/21/17 [Calmoseptine Ointment] Nutritional Supplement [Madhu - 1 packet PO BIDCM #60 packet 09/21/17 [place] FLAVOR] Nystatin Powder [Mycostatin Powder] 1 applic TOPICAL 0600,2200 bottle 09/21/17 Ferrous Sulfate [Iron] 325 mg PO BID 10/14/17 Clindamycin HCl 300 mg PO [id number] #40 cap 12/13/17 Maternal Family History: Diabetes Paternal Family History: Hypertension Sibling Family History: Diabetes Smoking Status: Former smoker Physical Exam Vital Signs Temp Pulse Resp BP 97.7 F L 98 18 139/75 H 07/18/18 10:07/18/18 10:07/18/18 10:07/18/18 10:01 General: Alert, Oriented x3, Cooperative, No apparent distress, Well developed, Well nourished HEENT: Atraumatic, PERRLA, EOMI, Normocephalic Lungs: Normal air movement Psych/Mental Status: Normal Affect, Appropriate, Alert and oriented to time, place, person, mood and affect Assessment/Plan Active Problems Chronic ulcer of right foot with fat layer exposed (Chronic) Ulcer of right lower extremity with fat layer exposed (Chronic) Complete below knee amputation of left lower extremity (Chronic) Ulcer of left lower extremity with fat layer exposed (Chronic) Chronic kidney disease (CKD) (Chronic) Type 2 diabetes mellitus with diabetic polyneuropathy (Chronic) Delayed wound healing (Chronic) Malnutrition (Chronic) Venous insufficiency (Chronic) Lymphedema (Chronic) 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
[2018-07-19 12:19] VITALS: BP 120/60; BP 125/63; PULSE 88; PULSE 91; RESP 18; TEMP 35.8; TEMP 36.3
[2018-07-20 10:00] VITALS: BP 141/61; PULSE 91; RESP 18; TEMP 36.2
--- NOTE | 2018-07-20 13:43 | PN.PCM_ITS ---
(1) Ulcer of right lower extremity with fat layer exposed Status: Chronic Current Visit: Yes Code(s): L97.912 - Non-pressure chronic ulcer of unspecified part of right lower leg with fat layer exposed (2) Chronic ulcer of right foot with fat layer exposed Status: Chronic Current Visit: Yes Code(s): L97.512 - Non-pressure chronic ulcer of other part of right foot with fat layer exposed (3) Atherosclerosis of lower extremity with ulceration Status: Chronic Current Visit: Yes Code(s): I70.25 - Atherosclerosis of [place] arteries of other extremities with ulceration (4) Ulcer of left lower extremity with fat layer exposed Status: Chronic Current Visit: Yes Code(s): L97.922 - Non-pressure chronic ulcer of unspecified part of left lower leg with fat layer exposed (5) Other specified peripheral vascular diseases Status: Suspected Current Visit: Yes Code(s): I73.89 - Other specified peripheral vascular diseases (6) Complete below knee amputation of left lower extremity Status: Chronic Current Visit: Yes Qualifiers: Code(s): S88.112A - Complete traumatic amputation at level between knee and ankle, left lower leg, initial encounter (7) Chronic kidney disease (CKD) Status: Chronic Current Visit: Yes Qualifiers: Code(s): N18.9 - Chronic kidney disease, unspecified (8) Type 2 diabetes mellitus with diabetic polyneuropathy Status: Chronic Current Visit: Yes Code(s): E11.42 - Type 2 diabetes mellitus with diabetic polyneuropathy (9) Delayed wound healing Status: Chronic Current Visit: Yes Code(s): T14.8 - Other injury of unspecified body region (10) Malnutrition Status: Chronic Current Visit: Yes Code(s): E46 - Unspecified protein- calorie malnutrition (11) Venous insufficiency Status: Chronic Current Visit: Yes Code(s): I87.2 - Venous insufficiency (chronic) (peripheral) (12) Lymphedema Status: Chronic Current Visit: Yes Code(s): I89.0 - Lymphedema, not elsewhere classified Type of Wound Date of Service: 07/20/18 Chief Complaint: 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 Right toe ulcers and left stump ulcers. Discoloration and swelling right leg. Right leg ulcers. History of Wound: 58-year-old white male returns to clinic for follow-up of bilateral leg ulcers and right foot ulcers. He denies fever, chill, nausea, vomiting, loss of appetite. He had multiple advanced wound care product applications. He continues with hyperbaric oxygen therapy sessions on an intermittent basis when he is not having transportation problems. He presents in a wheelchair today. He denies odors or redness. He did follow-up with vascular surgery which is scheduled for July 30, 2018. He has been trying to avoid cold exposures outside. Progress of Wound: Stable right toe and heel areas. Left stump site ulcer stable. Stable right leg ulcers - Physical Exam Vital Signs Temp Pulse Resp BP 97.1 F L 91 18 141/61 H 07/20/18 10:00 07/20/18 10:00 07/20/18 10:00 07/20/18 10:00 General: Alert, Oriented x3, Cooperative HEENT: Atraumatic Extremities: No cyanosis, Capillary Refill Less than 3 Seconds - Digits right foot, No Calf Tenderness - negative Harry and Badillo sign right, Diminished Peripheral Pulses, Edema - Bilateral lower extremity slightly decreased compared to last week, - - Left below-knee amputation Skin: Ulcer/ Wound - No purulence, erythema, streaking, odor, or infection. The ulcer beds are granular and fibrous bilateral. There is no interdigital maceration or maggots. The peripheral skin is hairless and atrophic bilateral. There is some intermittent epithelialization islands noted to the posterior right leg ulcer site Wound Measurements and Assessment WC - Nurse 1 - General Ulcer Measurement Start: 07/12/18 12:22 Freq: Status: Active Protocol: Activity Type Activity Date Activity User E-Sign Co-Sign Detail Recorded Client Recorded Date Recorded By Document 07/20/18 10:00 [id number] 07/20/18 10:20 ALTHEA 07/20/18 10:00 Wound Center Nurse 1 [Ulcer Assessment] #24 R Styles -Combined with other wound No -Current Size (cm) - Length 0.1 -Current Size (cm) - Width 0.1 -Current Size (cm) - Depth 0.1 -Total Square Cm 0.01 -Photo Taken No -Tunneling No -Undermining/Tunneling No -Circular Undermining No -Exudate Amt Medium -Exudate Type Serosanguineous -Wound Margin Distinct, Outline Attached -Granulation Amt Large (67-100%) -Granulation Quality [place] -Slough/Fibrin No -Necrosis Amt None Present (0 %) -Structure Exposed N/A -Texture (Martha-wound Skin Appearance) Assessed -Moisture (Martha-wound Skin Appearance Assessed ) -Color (Martha-wound Skin Appearance) Assessed -Temperature (Martha-wound Skin No Abnormality Appearance) (Pt Warm) -Tenderness on Palpation (Martha-wound No Skin Appearance) -Ulcer Cleansing Wound Cleanser -Foul Odor after Cleansing No -Anesthetic Used 4% Lidocaine Solution #23 R Post -Combined with other wound No -Current Size (cm) - Length 13 -Current Size (cm) - Width 15 -Current Size (cm) - Depth 0.1 -Total Square Cm 195 -Photo Taken No -Tunneling No -Undermining/Tunneling No -Circular Undermining No -Exudate Amt Medium -Exudate Type Serosanguineous -Wound Margin Distinct, Outline Attached -Granulation Amt Medium (34-66%) -Granulation Quality [place] -Slough/Fibrin Yes -Necrosis Amt Medium (34-66%) -Necrotic Tissue Type Adherent Slough -Structure Exposed N/A -Texture (Martha-wound Skin Appearance) Assessed -Moisture (Martha-wound Skin Appearance Maceration ) -Color (Martha-wound Skin Appearance) Assessed -Temperature (Martha-wound Skin No Abnormality Appearance) (Pt Warm) -Tenderness on Palpation (Martha-wound No Skin Appearance) -Ulcer Cleansing Wound Cleanser -Foul Odor after Cleansing No -Anesthetic Used 5% Lidocaine Gel #22 left stump -Combined with other wound No -Current Size (cm) - Length 5 -Current Size (cm) - Width 4.5 -Current Size (cm) - Depth 0.1 -Total Square Cm 22.5 -Photo Taken No -Tunneling No -Undermining/Tunneling No -Circular Undermining No -Exudate Amt Small -Exudate Type Serosanguineous -Wound Margin Distinct, Outline Attached -Granulation Amt Medium (34-66%) -Granulation Quality [place] -Slough/Fibrin Yes -Necrosis Amt Medium (34-66%) -Necrotic Tissue Type Adherent Slough -Structure Exposed N/A -Texture (Martha-wound Skin Appearance) No Abnormality -Moisture (Martha-wound Skin Appearance Maceration ) -Color (Martha-wound Skin Appearance) Assessed -Temperature (Martha-wound Skin No Abnormality Appearance) (Pt Warm) -Tenderness on Palpation (Martha-wound No Skin Appearance) -Ulcer Cleansing Wound Cleanser -Foul Odor after Cleansing No -Anesthetic Used 4% Lidocaine Solution #13 R Med Heel -Combined with other wound No -Current Size (cm) - Length 1 -Current Size (cm) - Width 1.8 -Current Size (cm) - Depth 0.1 -Total Square Cm 1.8 -Photo Taken No -Tunneling No -Undermining/Tunneling No -Circular Undermining No -Exudate Amt Small -Exudate Type Serosanguineous -Wound Margin Distinct, Outline Attached -Granulation Amt Medium (34-66%) -Granulation Quality [place] -Slough/Fibrin Yes -Necrosis Amt Small (1-33%) -Necrotic Tissue Type Adherent Slough -Structure Exposed N/A -Texture (Martha-wound Skin Appearance) Assessed -Moisture (Martha-wound Skin Appearance Maceration ) -Color (Martha-wound Skin Appearance) Assessed -Temperature (Martha-wound Skin No Abnormality Appearance) (Pt Warm) -Tenderness on Palpation (Martha-wound No Skin Appearance) -Ulcer Cleansing Wound Cleanser -Foul Odor after Cleansing No -Anesthetic Used 4% Lidocaine Solution #21 Right Foot-Toes w/Metatarsal Head circumfrential -Combined with other wound No -Current Size (cm) - Length 6 -Current Size (cm) - Width 5 -Current Size (cm) - Depth 0.1 -Total Square Cm 30 -Photo Taken No -Tunneling No -Undermining/Tunneling No -Circular Undermining No -Exudate Amt Small -Exudate Type Serosanguineous -Wound Margin Distinct, Outline Attached -Granulation Amt Medium (34-66%) -Granulation Quality [place] -Slough/Fibrin Yes -Necrosis Amt Small (1-33%) -Necrotic Tissue Type Adherent Slough -Structure Exposed N/A -Texture (Martha-wound Skin Appearance) Assessed -Moisture (Martha-wound Skin Appearance Maceration ) -Color (Martha-wound Skin Appearance) Assessed -Temperature (Martha-wound Skin No Abnormality Appearance) (Pt Warm) -Tenderness on Palpation (Martha-wound No Skin Appearance) -Ulcer Cleansing Wound Cleanser -Foul Odor after Cleansing No -Anesthetic Used 4% Lidocaine Solution [Edema Assessment] -Lower Limb Edema Present Yes -Right Calf (cm) 38 -Right Ankle (cm) 30 -Left Calf (cm) 40 WC - Nurse 2 - General Ulcer CM Notes Start: 07/12/18 12:22 Freq: Status: Active Protocol: Activity Type Activity Date Activity User E-Sign Co-Sign Detail Recorded Client Recorded Date Recorded By Document 07/20/18 10:47 ANUP [id number] 07/20/18 10:51 ANUP 07/20/18 10:47 Wound Center Nurse 2 [Procedure/Treatment] #24 R Styles -Time 10:47 -Correct Patient Yes -Correct Side, Site, Position Yes -Correct Procedure Yes -Procedure Performed Yes -Type of Procedure Debridement -Clinical Debridement Subcutaneous -Post Debridement Size (cm) - Length 3.1 -Post Debridement Size (cm) - Width 2.3 -Post Debridement Size (cm) - Depth 0.1 -Total Square Cm 7.13 -Wound/Ulcer Outcome Not Healed -Ulcer Cleansing Rinsed/ Irrigated with Saline -Foul Odor after Cleansing No -Bioengineered Tissue No -Bleeding Controlled with Pressure -Offloading No -Treatment Response Procedure Tolerated Well #23 R Post -Time 10:47 -Correct Patient Yes -Correct Side, Site, Position Yes -Correct Procedure Yes -Procedure Performed Yes -Type of Procedure Debridement -Clinical Debridement Selective -Post Debridement Size (cm) - Length 13.0 -Post Debridement Size (cm) - Width 15 -Post Debridement Size (cm) - Depth 0.1 -Total Square Cm 195.0 -Wound/Ulcer Outcome Not Healed -Ulcer Cleansing Rinsed/ Irrigated with Saline -Foul Odor after Cleansing No -Bioengineered Tissue No -Bleeding Controlled with Pressure -Offloading No -Treatment Response Procedure Tolerated Well #22 left stump -Time 10:48 -Correct Patient Yes -Correct Side, Site, Position Yes -Correct Procedure Yes -Procedure Performed Yes -Type of Procedure Debridement -Clinical Debridement Subcutaneous -Post Debridement Size (cm) - Length 4 -Post Debridement Size (cm) - Width 4.5 -Post Debridement Size (cm) - Depth 0.1 -Total Square Cm 18.0 -Wound/Ulcer Outcome Not Healed -Ulcer Cleansing Rinsed/ Irrigated with Saline -Foul Odor after Cleansing No -Bioengineered Tissue No -Bleeding Controlled with Pressure -Other 20% of ulcer debrided. 3. 6cm2 debrided -Offloading No -Treatment Response Procedure Tolerated Well #13 R Med Heel -Time 10:48 -Correct Patient Yes -Correct Side, Site, Position Yes -Correct Procedure Yes -Procedure Performed Yes -Type of Procedure Debridement -Clinical Debridement Subcutaneous -Post Debridement Size (cm) - Length 1.1 -Post Debridement Size (cm) - Width 1.8 -Post Debridement Size (cm) - Depth 0.1 -Total Square Cm 1.98 -Wound/Ulcer Outcome Not Healed -Ulcer Cleansing Rinsed/ Irrigated with Saline -Foul Odor after Cleansing No -Bioengineered Tissue No -Bleeding Controlled with Pressure -Offloading No -Treatment Response Procedure Tolerated Well #21 Right Foot-Toes w/Metatarsal Head circumfrential -Time 10:49 -Correct Patient Yes -Correct Side, Site, Position Yes -Correct Procedure Yes -Procedure Performed Yes -Type of Procedure Debridement -Clinical Debridement Subcutaneous -Post Debridement Size (cm) - Length 6 -Post Debridement Size (cm) - Width 5.1 -Post Debridement Size (cm) - Depth 0.1 -Total Square Cm 30.6 -Wound/Ulcer Outcome Not Healed -Ulcer Cleansing Rinsed/ Irrigated with Saline -Foul Odor after Cleansing No -Bioengineered Tissue No -Bleeding Controlled with Pressure -Offloading No -Treatment Response Procedure Tolerated Well [See Physician Procedure note for Specifics] Pain Scale: 0-10 Numeric [Pain] -Is Patient Pain Free? Yes Musculoskeletal: No Tenderness to Palpation of Joints or Extremities, Muscle Wasting Neurological: - - Lack of epicritic sensation light touch bilateral lower extremities consistent with neuropathy Psych/Mental Status: Normal Affect, Appropriate Debridement Note Post-Debridement Measurements/Treatment WC - Nurse 2 - General Ulcer CM Notes Start: 07/12/18 12:22 Freq: Status: Active Protocol: Activity Type Activity Date Activity User E-Sign Co-Sign Detail Recorded Client Recorded Date Recorded By Document 07/13/18 13:52 ANUP [id number] 07/13/18 13:56 Document 07/20/18 10:47 ANUP [id number] 07/20/18 10:51 07/13/18 07/20/18 13:52 10:47 Wound Center Nurse 2 #24 R Styles -Time 13:53 10:47 -Correct Patient Yes Yes -Correct Side, Site, Position Yes Yes -Correct Procedure Yes Yes -Procedure Performed Yes Yes -Type of Procedure Debridement Debridement -Clinical Debridement Subcutaneous Subcutaneous -Post Debridement Size (cm) - Length 2.1 3.1 -Post Debridement Size (cm) - Width 2 2.3 -Post Debridement Size (cm) - Depth 0.1 0.1 -Total Square Cm 4.2 7.13 -Wound/Ulcer Outcome Not Healed Not Healed -Ulcer Cleansing Rinsed/ Rinsed/ Irrigated with Irrigated with Saline Saline -Foul Odor after Cleansing No No -Bioengineered Tissue No No -Bleeding Controlled with Pressure Pressure -Offloading No No -Treatment Response Procedure Procedure Tolerated Well Tolerated Well #23 R Post -Time 13:53 10:47 -Correct Patient Yes Yes -Correct Side, Site, Position Yes Yes -Correct Procedure Yes Yes -Procedure Performed Yes Yes -Type of Procedure Debridement Debridement -Clinical Debridement Selective Selective -Post Debridement Size (cm) - Length 10.1 13.0 -Post Debridement Size (cm) - Width 17.1 15 -Post Debridement Size (cm) - Depth 0.1 0.1 -Total Square Cm 172.71 195.0 -Wound/Ulcer Outcome Not Healed Not Healed -Ulcer Cleansing Rinsed/ Rinsed/ Irrigated with Irrigated with Saline Saline -Foul Odor after Cleansing No No -Bioengineered Tissue No No -Bleeding Controlled with Pressure Pressure -Offloading No No -Treatment Response Procedure Procedure Tolerated Well Tolerated Well #22 left stump -Time 13:53 10:48 -Correct Patient Yes Yes -Correct Side, Site, Position Yes Yes -Correct Procedure Yes Yes -Procedure Performed Yes Yes -Type of Procedure Debridement Debridement -Clinical Debridement Subcutaneous Subcutaneous -Post Debridement Size (cm) - Length 6.1 4 -Post Debridement Size (cm) - Width 7 4.5 -Post Debridement Size (cm) - Depth 0.1 0.1 -Total Square Cm 42.7 18.0 -Wound/Ulcer Outcome Not Healed Not Healed -Ulcer Cleansing Rinsed/ Rinsed/ Irrigated with Irrigated with Saline Saline -Foul Odor after Cleansing No No -Bioengineered Tissue No No -Bleeding Controlled with Pressure Pressure -Other 20% of ulcer debrided. 3. 6cm2 debrided -Offloading No No -Treatment Response Procedure Procedure Tolerated Well Tolerated Well #13 R Med Heel -Time 13:54 10:48 -Correct Patient Yes Yes -Correct Side, Site, Position Yes Yes -Correct Procedure Yes Yes -Procedure Performed Yes Yes -Type of Procedure Debridement Debridement -Clinical Debridement Subcutaneous Subcutaneous -Post Debridement Size (cm) - Length 2.1 1.1 -Post Debridement Size (cm) - Width 3.2 1.8 -Post Debridement Size (cm) - Depth 0.1 0.1 -Total Square Cm 6.72 1.98 -Wound/Ulcer Outcome Not Healed Not Healed -Ulcer Cleansing Rinsed/ Rinsed/ Irrigated with Irrigated with Saline Saline -Foul Odor after Cleansing No No -Bioengineered Tissue No No -Bleeding Controlled with Pressure Pressure -Offloading No No -Treatment Response Procedure Procedure Tolerated Well Tolerated Well #21 Right Foot-Toes w/Metatarsal Head circumfrential -Time 13:55 10:49 -Correct Patient Yes Yes -Correct Side, Site, Position Yes Yes -Correct Procedure Yes Yes -Procedure Performed Yes Yes -Type of Procedure Debridement Debridement -Clinical Debridement Subcutaneous Subcutaneous -Post Debridement Size (cm) - Length 10.6 6 -Post Debridement Size (cm) - Width 8 5.1 -Post Debridement Size (cm) - Depth 0.1 0.1 -Total Square Cm 84.8 30.6 -Wound/Ulcer Outcome Not Healed Not Healed -Ulcer Cleansing Rinsed/ Rinsed/ Irrigated with Irrigated with Saline Saline -Foul Odor after Cleansing No No -Bioengineered Tissue No No -Bleeding Controlled with Pressure Pressure -Offloading No No -Treatment Response Procedure Procedure Tolerated Well Tolerated Well Pain Scale: 0-10 Numeric Is Patient Pain Free? Yes Yes Wound debrided: leg Laterality: Left Wound Grade/Stage: grade 1 Type of Debridement: Excisional debridement Anesthesia Used: 5% Lidocaine Gel Depth: in the subcutaneous layer Percentage of wound debrided: - - 25% Instrument Used: #15 blade Tissue Removed: fibrous, devitalized subcutaneous, biofilm, slough Severity: Fat Layer Exposed Amount of bleeding with debridement: Mild Bleeding Controlled with: Pressure Patient tolerated procedure well - Additional Wound Wound debrided: leg posterior Laterality: Right Wound Grade/Stage: grade 1 Type of Debridement: Selective debridement Anesthesia Used: 5% Lidocaine Gel Depth: in the subcutaneous layer Percentage of wound debrided: 100 Instrument Used: #15 blade Tissue Removed: fibrous, devitalized tissue, biofilm, slough Severity: Fat Layer Exposed Amount of bleeding with debridement: Mild Bleeding Controlled with: Pressure Patient tolerated procedure: Patient tolerated procedure well - Additional Wound Wound debrided: leg lateral Laterality: Right Wound Grade/Stage: grade 1 Type of Debridement: Excisional debridement Anesthesia Used: 5% Lidocaine Gel Depth: in the subcutaneous layer Percentage of wound debrided: 100 Instrument Used: #15 blade Tissue Removed: fibrous, devitalized subcutaneous, biofilm, slough Severity: Fat Layer Exposed Amount of bleeding with debridement: Mild Bleeding Controlled with: Pressure Patient tolerated procedure: Patient tolerated procedure well - Additional Wound Wound debrided: toes Laterality: Right Wound Grade/Stage: grade 1 Type of Debridement: Excisional debridement Anesthesia Used: 5% Lidocaine Gel Depth: in the subcutaneous layer Percentage of wound debrided: 100 Instrument Used: #15 blade Tissue Removed: fibrous, devitalized subcutaneous, biofilm, slough Severity: Fat Layer Exposed Amount of bleeding with debridement: Mild Bleeding Controlled with: Pressure Patient tolerated procedure: Patient tolerated procedure well - Additional Wound Wound debrided: heel Laterality: Right Wound Grade/Stage: grade 3 Type of Debridement: Excisional debridement Anesthesia Used: 5% Lidocaine Gel Depth: in the subcutaneous layer Percentage of wound debrided: 100 Instrument Used: #15 blade Tissue Removed: fibrous, devitalized subcutaneous, biofilm, slough Severity: Fat Layer Exposed Amount of bleeding with debridement: Mild Bleeding Controlled with: Pressure Patient tolerated procedure: Patient tolerated procedure well Assessment/Plan Active Problems Chronic ulcer of right foot with fat layer exposed (Chronic) Ulcer of right lower extremity with fat layer exposed (Chronic) Complete below knee amputation of left lower extremity (Chronic) Ulcer of left lower extremity with fat layer exposed (Chronic) Chronic kidney disease (CKD) (Chronic) Type 2 diabetes mellitus with diabetic polyneuropathy (Chronic) Delayed wound healing (Chronic) Malnutrition (Chronic) Venous insufficiency (Chronic) Lymphedema (Chronic) 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 Assessment: Right leg ulcer. ulcer right forefoot. right heel ulcer muscle involved and exposed fascia without infection noted today (previous grade 3); s/p surgical debridement and application of advance wound care products (amniofil and epicord). Right foot hypothermia / small vessel disease. 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 Lymphedema. Chronic lower extremity edema and venous insufficiency. Morbid obesity. Type 2 diabetes uncontrolled with peripheral neuropathy. CKD. Hypertension. Malnutrition. Delayed wound healing. Nonadherence to treatment plan Plan: I reviewed and discussed his case debridement done as documented above in the clinical panel; this procedure was well tolerated. I applied [facility] and he is advised to change this every 1-2 days with home health assistance. Continue compression left with 3M2L. To avoid trauma and cold exposure to the right foot as he sustained last week. His recent deterioration and increased ulcer formation to the right leg and previous change in temperature palpation was noted. He was re-referred to vascular surgeon Dr. Nixon who treated him for PAD and lymphedema. The current recommendation is to continue with strict compression with lymphedema pumps and an updated arterial duplex will also be performed to evaluate his old stent status. Evaluation and input is greatly appreciated. He reports he is scheduled for July 30. Continue protein suppplements and increased protein in diet. To continue hyperbaric oxygen therapy as scheduled on complaint basis. I encouraged continued use. I also recommend a lymphedema clinic. He went approximately 3 years ago and found this to be very helpful. He no longer has his thigh-high compression garments that were arranged for him during this last session. [place] wrap order will be processed at this time for the right lower extremity for better edema control there is a lymphedema clinic in [place] and his information was sent over. They can only see him once he is d/c from home health; this is noted. Hypothermia prevention, risks, complications and education was discussed today. He was advised to strictly cover his foot and to avoid cold or moisture exposure while outside. His temperature and forefoot appearance of the right lower extremity are improved compared to last week and it is noted it is much warmer outside. He understands he is at high risk for limb loss due to frostbite at this already compromised limb site. I recommend application of advanced wound care product, apligraft, and prior authorization will be initiated. The indication, purpose, benefits, risks, complications, and anticipated healing time management were discussed in detail with the patient. He is amenable to proceed at this time. This is medically necessary for limb salvage. He is failed other conservative care options. He is high risk for ongoing limb loss. Follow up in 1 week with at the wound healing center or call sooner if he has any questions or concerns.
[2018-07-21 09:51] LABS: Bedside Glucose 286 mg/dL (70-110)
[2018-07-21 10:15] LABS: Bedside Glucose 274 mg/dL (70-110)
[2018-07-21 10:25] LABS: Bedside Glucose 283 mg/dL (70-110)
--- NOTE | 2018-07-21 13:32 | NURSING ---
Pt unable to do HBO treatment today d/t a BS of 286, Valeria Castaneda NP aware and covering this treatment. Rechecked in 15 min per her instruction with results of 276. Checked again in 15 min with results of 283. Pt informed that he could not do his treatment today by Edd Castaneda NP. Pt in agreement. Dr Lux will be informed also. this was his 80th treatment.
[2018-07-28 11:30] VITALS: BP 144/74; PULSE 93; RESP 16; TEMP 36.5
[2018-08-01 11:50] LABS: Bedside Glucose 96 mg/dL (70-110)
[2018-08-01 12:10] LABS: Bedside Glucose 113 mg/dL (70-110)
[2018-08-01 12:35] LABS: Bedside Glucose 123 mg/dL (70-110)
[2018-08-01 12:51] LABS: Bedside Glucose 123 mg/dL (70-110)
--- NOTE | 2018-08-01 13:08 | WC ---
Patient unable to complete HBO treatment today. Blood sugar 96 upon arrival at 11:45am. Covering physician Dr. Tobar notified. Instructed to give orange juice and recheck BS in 15 minutes. BS at 12:05pm 113. Patient given Glucerna at 12:05pm per instructions. BS at 12:30 123. Second Glucerna given per instructions. BS at 12:45pm still 123. stated BS not in range for treatment today. Patient rescheduled for next treatment on 08/04/18 per his request due to transportation issues and appointments.
[2018-08-03 10:57] VITALS: BP 119/59; PULSE 93; RESP 18; TEMP 36.6
--- NOTE | 2018-08-03 13:09 | PCM.WC.PN ---
(1) Ulcer of right lower extremity with fat layer exposed Status: Chronic Current Visit: Yes Code(s): L97.912 - Non-pressure chronic ulcer of unspecified part of right lower leg with fat layer exposed (2) Chronic ulcer of right foot with fat layer exposed Status: Chronic Current Visit: Yes Code(s): L97.512 - Non-pressure chronic ulcer of other part of right foot with fat layer exposed (3) Atherosclerosis of lower extremity with ulceration Status: Chronic Current Visit: Yes Code(s): I70.25 - Atherosclerosis of eagle arteries of other extremities with ulceration (4) Ulcer of left lower extremity with fat layer exposed Status: Chronic Current Visit: Yes Code(s): L97.922 - Non-pressure chronic ulcer of unspecified part of left lower leg with fat layer exposed (5) Other specified peripheral vascular diseases Status: Suspected Current Visit: Yes Code(s): I73.89 - Other specified peripheral vascular diseases (6) Complete below knee amputation of left lower extremity Status: Chronic Current Visit: Yes Qualifiers: Code(s): S88.112A - Complete traumatic amputation at level between knee and ankle, left lower leg, initial encounter (7) Chronic kidney disease (CKD) Status: Chronic Current Visit: Yes Qualifiers: Code(s): N18.9 - Chronic kidney disease, unspecified (8) Type 2 diabetes mellitus with diabetic polyneuropathy Status: Chronic Current Visit: Yes Code(s): E11.42 - Type 2 diabetes mellitus with diabetic polyneuropathy (9) Delayed wound healing Status: Chronic Current Visit: Yes Code(s): T14.8 - Other injury of unspecified body region (10) Malnutrition Status: Chronic Current Visit: Yes Code(s): E46 - Unspecified protein-calorie malnutrition (11) Venous insufficiency Status: Chronic Current Visit: Yes Code(s): I87.2 - Venous insufficiency (chronic) (peripheral) (12) Lymphedema Status: Chronic Current Visit: Yes Code(s): I89.0 - Lymphedema, not elsewhere classified Type of Wound Date of Service: 08/03/18 Chief Complaint: 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 Right toe ulcers and left stump ulcers. Right leg ulcers. History of Wound: 58-year-old white male returns to clinic for follow-up of bilateral leg ulcers and right foot ulcers. He denies fever, chill, nausea, vomiting, loss of appetite. He had multiple advanced wound care product applications. He continues with hyperbaric oxygen therapy sessions on an intermittent basis when he is not having transportation problems. He presents in a wheelchair today. He denies odors or redness. He has been avoiding moisture with cold exposures. He followed up with a vascular surgery test this morning and was informed he has no intervention performed and his stent is patent. He is ready to have advanced wound care products applied today, apligraft. Progress of Wound: Stable right toe and heel areas. Left stump site ulcer stable. Stable right leg ulcers - Physical Exam Vital Signs Temp Pulse Resp BP 98 F 93 18 119/59 L 08/03/18 10:57 08/03/18 10:57 08/03/18 10:57 08/03/18 10:57 General: Alert, Oriented x3, Cooperative HEENT: Atraumatic Extremities: No cyanosis, Capillary Refill Less than 3 Seconds, No Calf Tenderness - Negative Harry and Badillo sign right, Diminished Peripheral Pulses, Edema - Bilateral lower extremities, - - Left below-knee amputation Skin: Ulcer/ Wound - No purulence, erythema, string, odor, infection, exposed bone or Tissue. The peripheral skin is hairless and atrophic. There is some maceration to the left leg stump site Wound Measurements and Assessment WC - Nurse 1 - General Ulcer Measurement Start: 07/12/18 12:22 Freq: Status: Active Protocol: Activity Type Activity Date Activity User E-Sign Co-Sign Detail Recorded Client Recorded Date Recorded By Document 08/03/18 10:57 [id number] 08/03/18 11:10 08/03/18 10:57 Wound Center Nurse 1 [Ulcer Assessment] #24 R Styles -Combined with other wound No -Current Size (cm) - Length 0.1 -Current Size (cm) - Width 0.1 -Current Size (cm) - Depth 0.1 -Total Square Cm 0.01 -Photo Taken No -Tunneling No -Undermining/Tunneling No -Circular Undermining No -Exudate Amt None Present -Wound Margin Distinct, Outline Attached -Granulation Quality Pale [place] -Slough/Fibrin No -Necrosis Amt None Present (0 %) -Texture (Martha-wound Skin Appearance) Assessed -Moisture (Martha-wound Skin Appearance Assessed ) -Color (Martha-wound Skin Appearance) Assessed -Temperature (Martha-wound Skin No Abnormality Appearance) (Pt Warm) -Tenderness on Palpation (Martha-wound No Skin Appearance) -Ulcer Cleansing Wound Cleanser -Foul Odor after Cleansing No -Anesthetic Used 4% Lidocaine Solution #23 R Post -Combined with other wound No -Current Size (cm) - Length 5 -Current Size (cm) - Width 4 -Current Size (cm) - Depth 0.1 -Total Square Cm 20 -Photo Taken No -Tunneling No -Undermining/Tunneling No -Circular Undermining No -Exudate Amt Small -Exudate Type Serosanguineous -Wound Margin Distinct, Outline Attached -Granulation Amt Medium (34-66%) -Granulation Quality [place] -Slough/Fibrin Yes -Necrosis Amt Medium (34-66%) -Necrotic Tissue Type Adherent Slough -Structure Exposed N/A -Texture (Martha-wound Skin Appearance) Assessed -Moisture (Martha-wound Skin Appearance Dry/Scaly ) -Color (Martha-wound Skin Appearance) Assessed -Temperature (Martha-wound Skin No Abnormality Appearance) (Pt Warm) -Tenderness on Palpation (Martha-wound No Skin Appearance) -Ulcer Cleansing Wound Cleanser -Foul Odor after Cleansing No -Anesthetic Used 4% Lidocaine Solution #22 left stump -Combined with other wound No -Current Size (cm) - Length 10 -Current Size (cm) - Width 10.5 -Current Size (cm) - Depth 0.1 -Total Square Cm 105.0 -Photo Taken No -Tunneling No -Undermining/Tunneling No -Circular Undermining No -Exudate Amt Medium -Exudate Type Serosanguineous -Wound Margin Distinct, Outline Attached -Granulation Amt Medium (34-66%) -Granulation Quality [place] -Slough/Fibrin Yes -Necrosis Amt Medium (34-66%) -Necrotic Tissue Type Adherent Slough -Structure Exposed N/A -Texture (Martha-wound Skin Appearance) Assessed -Moisture (Martha-wound Skin Appearance Maceration ) -Color (Martha-wound Skin Appearance) Assessed -Tenderness on Palpation (Martha-wound No Skin Appearance) -Ulcer Cleansing Wound Cleanser -Foul Odor after Cleansing No -Anesthetic Used 4% Lidocaine Solution #13 R Med Heel -Combined with other wound No -Current Size (cm) - Length 2.2 -Current Size (cm) - Width 4 -Current Size (cm) - Depth 0.2 -Total Square Cm 8.8 -Photo Taken No -Tunneling No -Undermining/Tunneling No -Circular Undermining No -Exudate Amt Small -Exudate Type Serosanguineous -Wound Margin Distinct, Outline Attached -Granulation Amt Medium (34-66%) -Granulation Quality [place] -Necrosis Amt Large (67-100%) -Necrotic Tissue Type Adherent Slough -Structure Exposed N/A -Texture (Martha-wound Skin Appearance) Callus -Moisture (Martha-wound Skin Appearance Assessed ) -Color (Martha-wound Skin Appearance) Assessed -Temperature (Martha-wound Skin No Abnormality Appearance) (Pt Warm) -Tenderness on Palpation (Martha-wound No Skin Appearance) -Ulcer Cleansing Wound Cleanser -Foul Odor after Cleansing No -Anesthetic Used 4% Lidocaine Solution #21 Right Foot-Toes w/Metatarsal Head circumfrential -Current Size (cm) - Length 12.5 -Current Size (cm) - Width 6 -Current Size (cm) - Depth 0.3 -Total Square Cm 75.0 -Photo Taken No -Tunneling No -Undermining/Tunneling No -Exudate Amt Medium -Exudate Type Serosanguineous -Wound Margin Distinct, Outline Attached -Granulation Amt Medium (34-66%) -Granulation Quality [place] -Slough/Fibrin Yes -Necrosis Amt Medium (34-66%) -Necrotic Tissue Type Adherent Slough -Structure Exposed N/A -Texture (Martha-wound Skin Appearance) Assessed -Moisture (Martha-wound Skin Appearance Maceration ) -Color (Martha-wound Skin Appearance) Assessed -Temperature (Martha-wound Skin No Abnormality Appearance) (Pt Warm) -Tenderness on Palpation (Martha-wound No Skin Appearance) -Ulcer Cleansing Wound Cleanser -Foul Odor after Cleansing No -Anesthetic Used 4% Lidocaine Solution [Edema Assessment] -Lower Limb Edema Present Yes -Right Calf (cm) 38.5 -Right Ankle (cm) 28 -Left Calf (cm) 42 Musculoskeletal: No Tenderness to Palpation of Joints or Extremities, Muscle Wasting Neurological: - - Lack of normal sensation light touch bilateral lower extremities Psych/Mental Status: Normal Affect, Appropriate Debridement Note Post-Debridement Measurements/Treatment WC - Nurse 2 - General Ulcer CM Notes Start: 07/12/18 12:22 Freq: Status: Active Protocol: Activity Type Activity Date Activity User E-Sign Co-Sign Detail Recorded Client Recorded Date Recorded By Document 07/13/18 13:52 [id number] 07/13/18 13:56 Document 07/20/18 10:47 [id number] 07/20/18 10:51 07/13/18 07/20/18 13:52 10:47 Wound Center Nurse 2 #24 R Styles -Time 13:53 10:47 -Correct Patient Yes Yes -Correct Side, Site, Position Yes Yes -Correct Procedure Yes Yes -Procedure Performed Yes Yes -Type of Procedure Debridement Debridement -Clinical Debridement Subcutaneous Subcutaneous -Post Debridement Size (cm) - Length 2.1 3.1 -Post Debridement Size (cm) - Width 2 2.3 -Post Debridement Size (cm) - Depth 0.1 0.1 -Total Square Cm 4.2 7.13 -Wound/Ulcer Outcome Not Healed Not Healed -Ulcer Cleansing Rinsed/ Rinsed/ Irrigated with Irrigated with Saline Saline -Foul Odor after Cleansing No No -Bioengineered Tissue No No -Bleeding Controlled with Pressure Pressure -Offloading No No -Treatment Response Procedure Procedure Tolerated Well Tolerated Well #23 R Post -Time 13:53 10:47 -Correct Patient Yes Yes -Correct Side, Site, Position Yes Yes -Correct Procedure Yes Yes -Procedure Performed Yes Yes -Type of Procedure Debridement Debridement -Clinical Debridement Selective Selective -Post Debridement Size (cm) - Length 10.1 13.0 -Post Debridement Size (cm) - Width 17.1 15 -Post Debridement Size (cm) - Depth 0.1 0.1 -Total Square Cm 172.71 195.0 -Wound/Ulcer Outcome Not Healed Not Healed -Ulcer Cleansing Rinsed/ Rinsed/ Irrigated with Irrigated with Saline Saline -Foul Odor after Cleansing No No -Bioengineered Tissue No No -Bleeding Controlled with Pressure Pressure -Offloading No No -Treatment Response Procedure Procedure Tolerated Well Tolerated Well #22 left stump -Time 13:53 10:48 -Correct Patient Yes Yes -Correct Side, Site, Position Yes Yes -Correct Procedure Yes Yes -Procedure Performed Yes Yes -Type of Procedure Debridement Debridement -Clinical Debridement Subcutaneous Subcutaneous -Post Debridement Size (cm) - Length 6.1 4 -Post Debridement Size (cm) - Width 7 4.5 -Post Debridement Size (cm) - Depth 0.1 0.1 -Total Square Cm 42.7 18.0 -Wound/Ulcer Outcome Not Healed Not Healed -Ulcer Cleansing Rinsed/ Rinsed/ Irrigated with Irrigated with Saline Saline -Foul Odor after Cleansing No No -Bioengineered Tissue No No -Bleeding Controlled with Pressure Pressure -Other 20% of ulcer debrided. 3. 6cm2 debrided -Offloading No No -Treatment Response Procedure Procedure Tolerated Well Tolerated Well #13 R Med Heel -Time 13:54 10:48 -Correct Patient Yes Yes -Correct Side, Site, Position Yes Yes -Correct Procedure Yes Yes -Procedure Performed Yes Yes -Type of Procedure Debridement Debridement -Clinical Debridement Subcutaneous Subcutaneous -Post Debridement Size (cm) - Length 2.1 1.1 -Post Debridement Size (cm) - Width 3.2 1.8 -Post Debridement Size (cm) - Depth 0.1 0.1 -Total Square Cm 6.72 1.98 -Wound/Ulcer Outcome Not Healed Not Healed -Ulcer Cleansing Rinsed/ Rinsed/ Irrigated with Irrigated with Saline Saline -Foul Odor after Cleansing No No -Bioengineered Tissue No No -Bleeding Controlled with Pressure Pressure -Offloading No No -Treatment Response Procedure Procedure Tolerated Well Tolerated Well #21 Right Foot-Toes w/Metatarsal Head circumfrential -Time 13:55 10:49 -Correct Patient Yes Yes -Correct Side, Site, Position Yes Yes -Correct Procedure Yes Yes -Procedure Performed Yes Yes -Type of Procedure Debridement Debridement -Clinical Debridement Subcutaneous Subcutaneous -Post Debridement Size (cm) - Length 10.6 6 -Post Debridement Size (cm) - Width 8 5.1 -Post Debridement Size (cm) - Depth 0.1 0.1 -Total Square Cm 84.8 30.6 -Wound/Ulcer Outcome Not Healed Not Healed -Ulcer Cleansing Rinsed/ Rinsed/ Irrigated with Irrigated with Saline Saline -Foul Odor after Cleansing No No -Bioengineered Tissue No No -Bleeding Controlled with Pressure Pressure -Offloading No No -Treatment Response Procedure Procedure Tolerated Well Tolerated Well Pain Scale: 0-10 Numeric Is Patient Pain Free? Yes Yes Wound debrided: leg stump site Laterality: Left Wound Grade/Stage: grade 1 Type of Debridement: Excisional debridement Anesthesia Used: 5% Lidocaine Gel Depth: in the subcutaneous layer Percentage of wound debrided: 100 Instrument Used: #15 blade Tissue Removed: fibrous, devitalized subcutaneous, biofilm, slough Severity: Fat Layer Exposed Amount of bleeding with debridement: Mild Bleeding Controlled with: Pressure Patient tolerated procedure well - Additional Wound Wound debrided: toes Laterality: Right Wound Grade/Stage: grade 1 Type of Debridement: Excisional debridement Anesthesia Used: 5% Lidocaine Gel Depth: in the subcutaneous layer Percentage of wound debrided: 100 Instrument Used: #15 blade Tissue Removed: fibrous, devitalized subcutaneous, biofilm, slough Severity: Fat Layer Exposed Amount of bleeding with debridement: Mild Bleeding Controlled with: Pressure Patient tolerated procedure: Patient tolerated procedure well - Additional Wound Wound debrided: heel Laterality: Right Wound Grade/Stage: grade 3 Type of Debridement: Excisional debridement Anesthesia Used: 5% Lidocaine Gel Depth: in the subcutaneous layer Percentage of wound debrided: 100 Instrument Used: #15 blade Tissue Removed: fibrous, devitalized subcutaneous, biofilm, slough Severity: Fat Layer Exposed Amount of bleeding with debridement: Mild Bleeding Controlled with: Pressure Patient tolerated procedure: Patient tolerated procedure well - Additional Wound Wound debrided: posterior leg Laterality: Right Wound Grade/Stage: grade 1 Type of Debridement: Excisional debridement Anesthesia Used: 5% Lidocaine Gel Depth: in the subcutaneous layer Percentage of wound debrided: 100 Instrument Used: #15 blade Tissue Removed: fibrous, devitalized subcutaneous, biofilm, slough Severity: Fat Layer Exposed Amount of bleeding with debridement: Mild Bleeding Controlled with: Pressure Patient tolerated procedure: Patient tolerated procedure well Assessment/Plan Active Problems Chronic ulcer of right foot with fat layer exposed (Chronic) Ulcer of right lower extremity with fat layer exposed (Chronic) Complete below knee amputation of left lower extremity (Chronic) Ulcer of left lower extremity with fat layer exposed (Chronic) Chronic kidney disease (CKD) (Chronic) Type 2 diabetes mellitus with diabetic polyneuropathy (Chronic) Delayed wound healing (Chronic) Malnutrition (Chronic) Venous insufficiency (Chronic) Lymphedema (Chronic) 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 Assessment: Right leg ulcer. ulcer right forefoot. right heel ulcer muscle involved and exposed fascia without infection noted today (previous grade 3); s/p surgical debridement and application of advance wound care products (amniofil and epicord). Right foot hypothermia / small vessel disease. 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 Lymphedema. Chronic lower extremity edema and venous insufficiency. Morbid obesity. Type 2 diabetes uncontrolled with peripheral neuropathy. CKD. Hypertension. Malnutrition. Delayed wound healing. Nonadherence to treatment plan Plan: I reviewed and discussed his case debridement done as documented above in the clinical panel; this procedure was well tolerated. I applied aquacel ag and he is advised to change this every 1-2 days with home health assistance to the left leg ulcer. Apligraft, advance wound care product was applied according to standard protocol to the right foot and heel and leg sites. This was secured with wound veil and Steri-Strips. The indications, planned procedure, and anticipated healing time and management were discussed in detail. He was advised to leave the site clean dry and intact until follow-up visit; [facility] is [facility] to change the outer secondary dressing if strikethrough drainage is noted. Verbal consent was obtained and he tolerated this very well. Additional application to left lower extremity is planned for next week. This is medically necessary to optimize timely healing. Continue compression left with 3M2L. To avoid trauma and cold exposure to the right foot as he sustained last week. He was re-referred to vascular surgeon Dr. Nixon who treated him for PAD and lymphedema. The current recommendation is to continue with strict compression with lymphedema pumps. Per patient, arterial duplex was performed today and he appears to have continued perfusion to the right lower extremity and no vascular intervention is planned at this time. Continue protein suppplements and increased protein in diet. To continue hyperbaric oxygen therapy as scheduled on complaint basis. I encouraged continued use. I also recommend a lymphedema clinic. He went approximately 3 years ago and found this to be very helpful. He no longer has his thigh-high compression garments that were arranged for him during this last session. [place] wrap order will be processed at this time for the right lower extremity for better edema control there is a lymphedema clinic in [place] and his information was sent over. They can only see him once he is d/c from home health; this is noted. Follow up in 1 week with at the wound healing center or call sooner if he has any questions or concerns.
[2018-08-04 11:55] LABS: Bedside Glucose 299 mg/dL (70-110)
[2018-08-04 12:20] LABS: Bedside Glucose 270 mg/dL (70-110)
--- NOTE | 2018-08-04 13:52 | NURSING ---
Pt unable to start HBO treatment today again d/t BS being elevated. Pt was 299 at 11:50 upon arrival. Notified Edd Castaneda NP, instructed to recheck in 15 min. At 12:10 pt was 270, rechecked at 12:25 312 and again at 1235 and was 284. Edd Castaneda aware and instucted not to do treatment today. Pt discharged to home.
[2018-08-04 16:55] LABS: Bedside Glucose 284 mg/dL (70-110)
[2018-08-04 16:55] LABS: Bedside Glucose 312 mg/dL (70-110)
== END 2018-08-04 23:59 ==
LOC: WC 12:00
PROVIDERS: Family Provider Family Medicine Geriatric Medicine; PCP Family Medicine Geriatric Medicine; Referring Provider Podiatrist; Visit Provider Podiatrist
DX: E11.621 Type 2 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with foot ulcer (principal); E11.42 Type 2 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with diabetic polyneuropathy; L97.822 Non-pressure chronic ulcer of other part of left lower leg with fat layer exposed; E11.22 Type 2 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with diabetic chronic kidney disease; N18.9 Chronic kidney disease, unspecified; T87.89 Other complications of amputation stump; Y83.9 Surgical procedure, unspecified as the cause of abnormal reaction of the patient, or of later complication, without mention of misadventure at the time of the procedure; L97.512 Non-pressure chronic ulcer of other part of right foot with fat layer exposed; Z71.3 Dietary counseling and surveillance; E66.01 Morbid (severe) obesity due to excess calories; R60.0 Localized edema; E11.65 Type 2 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with hyperglycemia; E11.51 Type 2 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with diabetic peripheral angiopathy without gangrene; I12.9 Hypertensive chronic kidney disease with stage 1 through stage 4 chronic kidney disease, or unspecified chronic kidney disease; I70.235 Atherosclerosis of native arteries of right leg with ulceration of other part of foot; I70.234 Atherosclerosis of native arteries of right leg with ulceration of heel and midfoot; L97.412 Non-pressure chronic ulcer of right heel and midfoot with fat layer exposed
CPT/HCPCS: 11042; 11045; 15271; 15275; 29580; 29581; 82962; 97597; 97598; 99183; 99211; 99212; 99213; 99214; Q4101; G0277; G0463

== ENCOUNTER 2018-08-31 09:15 | Outpatient (RCR) | payer MEDICARE, MEDICAID, SELFPAY ==
[2018-08-05 00:53] VITALS: BP 119/59; PULSE 93; RESP 18; TEMP 36.6
[2018-08-10 09:58] VITALS: BP 142/69; PULSE 86; RESP 18; TEMP 36.1
--- NOTE | 2018-08-10 16:30 | PCM.WC.PN ---
(1) Ulcer of right lower extremity with fat layer exposed Status: Chronic Current Visit: Yes Code(s): L97.912 - Non-pressure chronic ulcer of unspecified part of right lower leg with fat layer exposed (2) Ulcer of left lower extremity with fat layer exposed Status: Chronic Current Visit: Yes Code(s): L97.922 - Non-pressure chronic ulcer of unspecified part of left lower leg with fat layer exposed (3) Chronic ulcer of right foot with fat layer exposed Status: Chronic Current Visit: Yes Code(s): L97.512 - Non-pressure chronic ulcer of other part of right foot with fat layer exposed (4) Other specified peripheral vascular diseases Status: Chronic Current Visit: Yes Code(s): I73.89 - Other specified peripheral vascular diseases (5) BKA stump complication Status: Chronic Current Visit: Yes Code(s): T87.9 - Unspecified complications of amputation stump (6) Type 2 diabetes mellitus with diabetic polyneuropathy Status: Chronic Current Visit: Yes Code(s): E11.42 - Type 2 diabetes mellitus with diabetic polyneuropathy (7) Delayed wound healing Status: Chronic Current Visit: Yes Code(s): T14.8 - Other injury of unspecified body region (8) Malnutrition Status: Chronic Current Visit: Yes Code(s): E46 - Unspecified protein-calorie malnutrition (9) Lymphedema Status: Chronic Current Visit: Yes Code(s): I89.0 - Lymphedema, not elsewhere classified Type of Wound Date of Service: 08/10/18 Chief Complaint: 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 Right toe ulcers and left stump ulcers. Right leg ulcers. History of Wound: 58-year-old white male returns to clinic for follow-up of bilateral leg ulcers and right foot ulcers. He denies fever, chill, nausea, vomiting, loss of appetite. He had multiple advanced wound care product applications. He kept the Apligraf intact to the right lower extremity as advised. He presents in a wheelchair today. He denies odors or redness. He has been avoiding moisture with cold exposures. He followed up with a vascular surgery test this morning and was informed he has no intervention performed and his stent is patent. Progress of Wound: Stable right toe and heel areas. Left stump site ulcer stable. Improving right leg ulcers - Physical Exam Vital Signs Temp Pulse Resp BP 97 F L 86 18 142/69 H 08/10/18 09:58 08/10/18 09:58 08/10/18 09:58 08/10/18 09:58 General: Alert, Oriented x3, Cooperative HEENT: Atraumatic Extremities: No cyanosis, Capillary Refill Less than 3 Seconds, No Calf Tenderness - Negative Harry and Badillo right., Diminished Peripheral Pulses, Edema, - - Left below-knee amputation. Continue lymphedema bilateral lower extremities Skin: Ulcer/ Wound - No purulence, erythema, streaking, odor, or infection bilateral. There is some interspersed sub-hemorrhagic tissue noted to the left below-knee amputation stump site with partial subcutaneous exposure. There is continued peripheral epithelialization noted to the right posterior leg. No interdigital maceration. Adjacent skin is hairless and atrophic bilateral Wound Measurements and Assessment WC - Nurse 1 - General Ulcer Measurement Start: 08/10/18 09:58 Freq: Status: Active Protocol: Activity Type Activity Date Activity User E-Sign Co-Sign Detail Recorded Client Recorded Date Recorded By Document 08/10/18 09:58 DL [id number] 08/10/18 10:16 DL 08/10/18 09:58 Wound Center Nurse 1 [Ulcer Assessment] #24 R Styles -Photo Taken No -Exudate Amt Small -Exudate Type Serosanguineous -Temperature (Martha-wound Skin No Abnormality Appearance) (Pt Warm) -Tenderness on Palpation (Martha-wound No Skin Appearance) -Ulcer Cleansing Wound Cleanser -Foul Odor after Cleansing No #23 R Post -Photo Taken No -Temperature (Martha-wound Skin No Abnormality Appearance) (Pt Warm) -Tenderness on Palpation (Martha-wound No Skin Appearance) -Ulcer Cleansing Wound Cleanser -Foul Odor after Cleansing No #22 left stump -Current Size (cm) - Length 10 -Current Size (cm) - Width 8 -Current Size (cm) - Depth 0.1 -Total Square Cm 80 -Photo Taken No -Exudate Amt Large -Exudate Type Serosanguineous -Wound Margin Indistinct, Non -Visible -Granulation Amt Medium (34-66%) -Granulation Quality [place] -Necrosis Amt Medium (34-66%) -Necrotic Tissue Type Adherent Slough -Structure Exposed N/A -Texture (Martha-wound Skin Appearance) Localized Edema Scarring -Moisture (Martha-wound Skin Appearance Maceration ) -Color (Martha-wound Skin Appearance) Hemosiderin Staining -Temperature (Martha-wound Skin No Abnormality Appearance) (Pt Warm) -Tenderness on Palpation (Martha-wound No Skin Appearance) -Ulcer Cleansing Wound Cleanser -Foul Odor after Cleansing No -Anesthetic Used 4% Lidocaine Solution #13 R Med Heel -Photo Taken No -Temperature (Martha-wound Skin No Abnormality Appearance) (Pt Warm) -Tenderness on Palpation (Martha-wound No Skin Appearance) -Ulcer Cleansing Wound Cleanser -Foul Odor after Cleansing No -Anesthetic Used 4% Lidocaine Solution #21 Right Foot-Toes w/Metatarsal Head circumfrential -Photo Taken No -Temperature (Martha-wound Skin No Abnormality Appearance) (Pt Warm) -Tenderness on Palpation (Martha-wound No Skin Appearance) -Ulcer Cleansing Wound Cleanser -Foul Odor after Cleansing No [Edema Assessment] -Right Calf (cm) 37.2 -Right Ankle (cm) 28 -Left Calf (cm) 43.5 WC - Nurse 2 - General Ulcer CM Notes Start: 08/10/18 09:58 Freq: Status: Active Protocol: Activity Type Activity Date Activity User E-Sign Co-Sign Detail Recorded Client Recorded Date Recorded By Document 08/10/18 10:25 DL [id number] 08/10/18 10:54 DL 08/10/18 10:25 Wound Center Nurse 2 [Procedure/Treatment] #23 R Post -Time 10:31 -Correct Patient Yes -Correct Side, Site, Position Yes -Correct Procedure Yes -Procedure Performed Yes -Type of Procedure Debridement -Clinical Debridement Subcutaneous -Post Debridement Size (cm) - Length 5 -Post Debridement Size (cm) - Width 4 -Post Debridement Size (cm) - Depth 0.1 -Total Square Cm 20 -Wound/Ulcer Outcome Not Healed -Ulcer Cleansing Rinsed/ Irrigated with Saline -Foul Odor after Cleansing No -Bioengineered Tissue Yes -Type of bioengineered Tissue Apligraf -Expiration Date 08/19/18 -Product Lot Number [id number] -Percent Used 100 -Saline Lot Number [id number] -Topical Lidocaine (%) 4 -Bleeding Controlled with Pressure -Offloading No -Type of Offloading Surgical Shoe -Treatment Response Procedure Tolerated Well #22 left stump -Time 10:37 -Correct Patient Yes -Correct Side, Site, Position Yes -Correct Procedure Yes -Procedure Performed Yes -Type of Procedure Debridement -Clinical Debridement Subcutaneous -Post Debridement Size (cm) - Length 10 -Post Debridement Size (cm) - Width 8 -Post Debridement Size (cm) - Depth 0.1 -Total Square Cm 80 -Wound/Ulcer Outcome Amputation -Ulcer Cleansing Rinsed/ Irrigated with Saline -Foul Odor after Cleansing No -Bioengineered Tissue Yes -Type of bioengineered Tissue Apligraf -Expiration Date 08/19/18 -Product Lot Number [id number] -Percent Used 100 -Saline Lot Number [id number] -Injectable Lidocaine (%) 4 -Bleeding Controlled with Pressure -Offloading No -Treatment Response Procedure Tolerated Well #13 R Med Heel -Time 10:49 -Correct Patient Yes -Correct Side, Site, Position Yes -Correct Procedure Yes -Procedure Performed Yes -Type of Procedure Debridement -Clinical Debridement Subcutaneous -Post Debridement Size (cm) - Length 2.2 -Post Debridement Size (cm) - Width 4 -Post Debridement Size (cm) - Depth 0.2 -Total Square Cm 8.8 -Wound/Ulcer Outcome Not Healed -Ulcer Cleansing Rinsed/ Irrigated with Saline -Foul Odor after Cleansing No -Bioengineered Tissue Yes -Type of bioengineered Tissue Apligraf -Expiration Date 08/19/18 -Product Lot Number [id number] -Percent Used 100 -Saline Lot Number [id number] -Topical Lidocaine (%) 4 -Bleeding Controlled with Pressure -Offloading No -Treatment Response Procedure Tolerated Well #21 Right Foot-Toes w/Metatarsal Head circumfrential -Time 10:51 -Correct Patient Yes -Correct Side, Site, Position Yes -Correct Procedure Yes -Procedure Performed Yes -Type of Procedure Debridement -Clinical Debridement Subcutaneous -Post Debridement Size (cm) - Length 12.5 -Post Debridement Size (cm) - Width 6 -Post Debridement Size (cm) - Depth 0.3 -Total Square Cm 75.0 -Wound/Ulcer Outcome Not Healed -Ulcer Cleansing Rinsed/ Irrigated with Saline -Foul Odor after Cleansing No -Bioengineered Tissue Yes -Type of bioengineered Tissue Apligraf -Expiration Date 08/19/18 -Product Lot Number [id number] -Percent Used 100 -Saline Lot Number [id number] -Topical Lidocaine (%) 4 -Bleeding Controlled with Pressure -Offloading No -Treatment Response Procedure Tolerated Well [See Physician Procedure note for Specifics] Pain Scale: 0-10 Numeric [Pain] -Is Patient Pain Free? Yes Musculoskeletal: No Tenderness to Palpation of Joints or Extremities, Muscle Wasting Neurological: - - Lack of normal epicritic sensation light touch bilateral lower extremities Psych/Mental Status: Normal Affect, Appropriate Debridement Note Post-Debridement Measurements/Treatment WC - Nurse 2 - General Ulcer CM Notes Start: 08/10/18 09:58 Freq: Status: Active Protocol: Activity Type Activity Date Activity User E-Sign Co-Sign Detail Recorded Client Recorded Date Recorded By Document 08/10/18 10:25 DL [id number] 08/10/18 10:54 DL 08/10/18 10:25 Wound Center Nurse 2 #23 R Post -Time 10:31 -Correct Patient Yes -Correct Side, Site, Position Yes -Correct Procedure Yes -Procedure Performed Yes -Type of Procedure Debridement -Clinical Debridement Subcutaneous -Post Debridement Size (cm) - Length 5 -Post Debridement Size (cm) - Width 4 -Post Debridement Size (cm) - Depth 0.1 -Total Square Cm 20 -Wound/Ulcer Outcome Not Healed -Ulcer Cleansing Rinsed/ Irrigated with Saline -Foul Odor after Cleansing No -Bioengineered Tissue Yes -Type of bioengineered Tissue Apligraf -Expiration Date 08/19/18 -Product Lot Number [id number] -Percent Used 100 -Saline Lot Number [id number] -Topical Lidocaine (%) 4 -Bleeding Controlled with Pressure -Offloading No -Type of Offloading Surgical Shoe -Treatment Response Procedure Tolerated Well #22 left stump -Time 10:37 -Correct Patient Yes -Correct Side, Site, Position Yes -Correct Procedure Yes -Procedure Performed Yes -Type of Procedure Debridement -Clinical Debridement Subcutaneous -Post Debridement Size (cm) - Length 10 -Post Debridement Size (cm) - Width 8 -Post Debridement Size (cm) - Depth 0.1 -Total Square Cm 80 -Wound/Ulcer Outcome Amputation -Ulcer Cleansing Rinsed/ Irrigated with Saline -Foul Odor after Cleansing No -Bioengineered Tissue Yes -Type of bioengineered Tissue Apligraf -Expiration Date 08/19/18 -Product Lot Number [id number] -Percent Used 100 -Saline Lot Number [id number] -Injectable Lidocaine (%) 4 -Bleeding Controlled with Pressure -Offloading No -Treatment Response Procedure Tolerated Well #13 R Med Heel -Time 10:49 -Correct Patient Yes -Correct Side, Site, Position Yes -Correct Procedure Yes -Procedure Performed Yes -Type of Procedure Debridement -Clinical Debridement Subcutaneous -Post Debridement Size (cm) - Length 2.2 -Post Debridement Size (cm) - Width 4 -Post Debridement Size (cm) - Depth 0.2 -Total Square Cm 8.8 -Wound/Ulcer Outcome Not Healed -Ulcer Cleansing Rinsed/ Irrigated with Saline -Foul Odor after Cleansing No -Bioengineered Tissue Yes -Type of bioengineered Tissue Apligraf -Expiration Date 08/19/18 -Product Lot Number [id number] -Percent Used 100 -Saline Lot Number [id number] -Topical Lidocaine (%) 4 -Bleeding Controlled with Pressure -Offloading No -Treatment Response Procedure Tolerated Well #21 Right Foot-Toes w/Metatarsal Head circumfrential -Time 10:51 -Correct Patient Yes -Correct Side, Site, Position Yes -Correct Procedure Yes -Procedure Performed Yes -Type of Procedure Debridement -Clinical Debridement Subcutaneous -Post Debridement Size (cm) - Length 12.5 -Post Debridement Size (cm) - Width 6 -Post Debridement Size (cm) - Depth 0.3 -Total Square Cm 75.0 -Wound/Ulcer Outcome Not Healed -Ulcer Cleansing Rinsed/ Irrigated with Saline -Foul Odor after Cleansing No -Bioengineered Tissue Yes -Type of bioengineered Tissue Apligraf -Expiration Date 08/19/18 -Product Lot Number [id number] -Percent Used 100 -Saline Lot Number [id number] -Topical Lidocaine (%) 4 -Bleeding Controlled with Pressure -Offloading No -Treatment Response Procedure Tolerated Well Pain Scale: 0-10 Numeric Is Patient Pain Free? Yes Wound debrided: toes Laterality: Right Wound Grade/Stage: grade 1 Type of Debridement: Excisional debridement Anesthesia Used: 5% Lidocaine Gel Depth: in the subcutaneous layer Percentage of wound debrided: 100 Instrument Used: #15 blade Tissue Removed: fibrous, devitalized subcutaneous, biofilm, slough Severity: Fat Layer Exposed Amount of bleeding with debridement: Mild Bleeding Controlled with: Pressure Patient tolerated procedure well - Additional Wound Wound debrided: heel Laterality: Right Wound Grade/Stage: grade 3 Type of Debridement: Excisional debridement Anesthesia Used: 5% Lidocaine Gel Depth: in the subcutaneous layer Percentage of wound debrided: 100 Instrument Used: #15 blade Tissue Removed: fibrous, devitalized subcutaneous, biofilm, slough Severity: Fat Layer Exposed Amount of bleeding with debridement: Mild Bleeding Controlled with: Pressure Patient tolerated procedure: Patient tolerated procedure well - Additional Wound Wound debrided: posterior leg Laterality: Right Anesthesia Used: 5% Lidocaine Gel Depth: in the subcutaneous layer Percentage of wound debrided: 20 Instrument Used: #15 blade Tissue Removed: fibrous, devitalized subcutaneous, biofilm, slough Severity: Fat Layer Exposed Amount of bleeding with debridement: Mild Bleeding Controlled with: Pressure Patient tolerated procedure: Patient tolerated procedure well - Additional Wound Wound debrided: leg / stump site Laterality: Left Wound Grade/Stage: grade 1 Type of Debridement: Excisional debridement Anesthesia Used: 5% Lidocaine Gel Depth: in the subcutaneous layer Percentage of wound debrided: 10 Instrument Used: #15 blade Tissue Removed: fibrous, devitalized subcutaneous, biofilm, slough Severity: Fat Layer Exposed Amount of bleeding with debridement: Mild Bleeding Controlled with: Pressure Patient tolerated procedure: Patient tolerated procedure well Assessment/Plan Active Problems Other specified peripheral vascular diseases (Chronic) Chronic ulcer of right foot with fat layer exposed (Chronic) Ulcer of left lower extremity with fat layer exposed (Chronic) Ulcer of right lower extremity with fat layer exposed (Chronic) BKA stump complication (Chronic) Type 2 diabetes mellitus with diabetic polyneuropathy (Chronic) Delayed wound healing (Chronic) Malnutrition (Chronic) Lymphedema (Chronic) Assessment: Right leg ulcer. ulcer right forefoot. right heel ulcer muscle involved and exposed fascia without infection noted today (previous grade 3); s/p surgical debridement and application of advance wound care products. Right foot hypothermia / small vessel disease. 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 Lymphedema. Chronic lower extremity edema and venous insufficiency. Morbid obesity. Type 2 diabetes uncontrolled with peripheral neuropathy. CKD. Hypertension. Malnutrition. Delayed wound healing. Nonadherence to treatment plan Plan: I reviewed and discussed his case debridement done as documented above in the clinical panel; this procedure was well tolerated. I applied [employer] and he is advised to change this every 1-2 days with home health assistance to the left leg ulcer. Apligraft, advance wound care product was applied according to standard protocol to the right foot and heel and leg sites. All the product was utilized. This was secured with wound veil and Steri-Strips. The indications, planned procedure, and anticipated healing time and management were discussed in detail. He was advised to leave the site clean dry and intact until follow-up visit; it is okay for assisted health to change the outer secondary dressing if strikethrough drainage is noted. A dressing applied to the left stump site; he will also leave this intact until next week. Verbal consent was obtained and he tolerated this very well. Additional approval for Apligraf application to the left lower extremity is pending still. This is medically necessary to optimize timely healing. This is also chronic and separate site than the a for mentioned current Apligraf application sites and he is failed conventional therapy for over 6 months. Continue compression left with 3M2L. To avoid trauma and cold exposure to the right foot. He was re-referred to vascular surgeon Dr. Nixon who treated him for PAD and lymphedema. The current recommendation is to continue with strict compression with lymphedema pumps. Per patient, arterial duplex was performed today and he appears to have continued perfusion to the right lower extremity and no vascular intervention is planned at this time. Continue protein suppplements and increased protein in diet. To continue hyperbaric oxygen therapy as scheduled on complaint basis. I encouraged continued use. I also recommend a lymphedema clinic. He went approximately 3 years ago and found this to be very helpful. He no longer has his thigh-high compression garments that were arranged for him during this last session. [place] wrap order will be processed at this time for the right lower extremity for better edema control there is a lymphedema clinic in [place] and his information was sent over. They can only see him once he is d/c from home health; this is noted. Follow up in 1 week with at the wound healing center or call sooner if he has any questions or concerns.
--- NOTE | 2018-08-10 16:34 | PN.PCM_ITS ---
(1) Ulcer of right lower extremity with fat layer exposed Status: Chronic Current Visit: Yes Code(s): L97.912 - Non-pressure chronic ulcer of unspecified part of right lower leg with fat layer exposed (2) Ulcer of left lower extremity with fat layer exposed Status: Chronic Current Visit: Yes Code(s): L97.922 - Non-pressure chronic ulcer of unspecified part of left lower leg with fat layer exposed (3) Chronic ulcer of right foot with fat layer exposed Status: Chronic Current Visit: Yes Code(s): L97.512 - Non-pressure chronic ulcer of other part of right foot with fat layer exposed (4) Other specified peripheral vascular diseases Status: Chronic Current Visit: Yes Code(s): I73.89 - Other specified peripheral vascular diseases (5) BKA stump complication Status: Chronic Current Visit: Yes Code(s): T87.9 - Unspecified complications of amputation stump (6) Type 2 diabetes mellitus with diabetic polyneuropathy Status: Chronic Current Visit: Yes Code(s): E11.42 - Type 2 diabetes mellitus with diabetic polyneuropathy (7) Delayed wound healing Status: Chronic Current Visit: Yes Code(s): T14.8 - Other injury of u nspecified body region (8) Malnutrition Status: Chronic Current Visit: Yes Code(s): E46 - Unspecified protein- calorie malnutrition (9) Lymphedema Status: Chronic Current Visit: Yes Code(s): I89.0 - Lymphedema, not elsewhere classified Type of Wound Date of Service: 08/10/18 Chief Complaint: 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 Right toe ulcers and left stump ulcers. Right leg ulcers. History of Wound: 58-year-old white male returns to clinic for follow-up of bilateral leg ulcers and right foot ulcers. He denies fever, chill, nausea, vomiting, loss of appetite. He had multiple advanced wound care product applications. He kept the Apligraf intact to the right lower extremity as advised. He presents in a wheelchair today. He denies odors or redness. He has been avoiding moisture with cold exposures. He followed up with a vascular surgery test this morning and was informed he has no intervention performed and his stent is patent. Progress of Wound: Stable right toe and heel areas. Left stump site ulcer stable. Improving right leg ulcers - Physical Exam Vital Signs Temp Pulse Resp BP 97 F L 86 18 142/69 H 08/10/18 09:58 08/10/18 09:58 08/10/18 09:58 08/10/18 09:58 General: Alert, Oriented x3, Cooperative HEENT: Atraumatic Extremities: No cyanosis, Capillary Refill Less than 3 Seconds, No Calf Tenderness - Negative Harry and Badillo right., Diminished Peripheral Pulses, Edema, - - Left below-knee amputation. Continue lymphedema bilateral lower extremities Skin: Ulcer/ Wound - No purulence, erythema, streaking, odor, or infection bilateral. There is some interspersed sub-hemorrhagic tissue noted to the left below-knee amputation stump site with partial subcutaneous exposure. There is continued peripheral epithelialization noted to the right posterior leg. No interdigital maceration. Adjacent skin is hairless and atrophic bilateral Wound Measurements and Assessment WC - Nurse 1 - General Ulcer Measurement Start: 08/10/18 09:58 Freq: Status: Active Protocol: Activity Type Activity Date Activity User E-Sign Co-Sign Detail Recorded Client Recorded Date Recorded By Document 08/10/18 09:58 DL [id number] 08/10/18 10:16 DL 08/10/18 09:58 Wound Center Nurse 1 [Ulcer Assessment] #24 R Styles -Photo Taken No -Exudate Amt Small -Exudate Type Serosanguineous -Temperature (Martha-wound Skin No Abnormality Appearance) (Pt Warm) -Tenderness on Palpation (Martha-wound No Skin Appearance) -Ulcer Cleansing Wound Cleanser -Foul Odor after Cleansing No #23 R Post -Photo Taken No -Temperature (Martha-wound Skin No Abnormality Appearance) (Pt Warm) -Tenderness on Palpation (Martha-wound No Skin Appearance) -Ulcer Cleansing Wound Cleanser -Foul Odor after Cleansing No #22 left stump -Current Size (cm) - Length 10 -Current Size (cm) - Width 8 -Current Size (cm) - Depth 0.1 -Total Square Cm 80 -Photo Taken No -Exudate Amt Large -Exudate Type Serosanguineous -Wound Margin Indistinct, Non -Visible -Granulation Amt Medium (34-66%) -Granulation Quality [place] -Necrosis Amt Medium (34-66%) -Necrotic Tissue Type Adherent Slough -Structure Exposed N/A -Texture (Martha-wound Skin Appearance) Localized Edema Scarring -Moisture (Martha-wound Skin Appearance Maceration ) -Color (Martha-wound Skin Appearance) Hemosiderin Staining -Temperature (Martha-wound Skin No Abnormality Appearance) (Pt Warm) -Tenderness on Palpation (Martha-wound No Skin Appearance) -Ulcer Cleansing Wound Cleanser -Foul Odor after Cleansing No -Anesthetic Used 4% Lidocaine Solution #13 R Med Heel -Photo Taken No -Temperature (Martha-wound Skin No Abnormality Appearance) (Pt Warm) -Tenderness on Palpation (Martha-wound No Skin Appearance) -Ulcer Cleansing Wound Cleanser -Foul Odor after Cleansing No -Anesthetic Used 4% Lidocaine Solution #21 Right Foot-Toes w/Metatarsal Head circumfrential -Photo Taken No -Temperature (Martha-wound Skin No Abnormality Appearance) (Pt Warm) -Tenderness on Palpation (Martha-wound No Skin Appearance) -Ulcer Cleansing Wound Cleanser -Foul Odor after Cleansing No [Edema Assessment] -Right Calf (cm) 37.2 -Right Ankle (cm) 28 -Left Calf (cm) 43.5 WC - Nurse 2 - General Ulcer CM Notes Start: 08/10/18 09:58 Freq: Status: Active Protocol: Activity Type Activity Date Activity User E-Sign Co-Sign Detail Recorded Client Recorded Date Recorded By Document 08/10/18 10:25 DL [id number] 08/10/18 10:54 DL 08/10/18 10:25 Wound Center Nurse 2 [Procedure/Treatment] #23 R Post -Time 10:31 -Correct Patient Yes -Correct Side, Site, Position Yes -Correct Procedure Yes -Procedure Performed Yes -Type of Procedure Debridement -Clinical Debridement Subcutaneous -Post Debridement Size (cm) - Length 5 -Post Debridement Size (cm) - Width 4 -Post Debridement Size (cm) - Depth 0.1 -Total Square Cm 20 -Wound/Ulcer Outcome Not Healed -Ulcer Cleansing Rinsed/ Irrigated with Saline -Foul Odor after Cleansing No -Bioengineered Tissue Yes -Type of bioengineered Tissue Apligraf -Expiration Date 08/19/18 -Product Lot Number [id number] -Percent Used 100 -Saline Lot Number [id number] -Topical Lidocaine (%) 4 -Bleeding Controlled with Pressure -Offloading No -Type of Offloading Surgical Shoe -Treatment Response Procedure Tolerated Well #22 left stump -Time 10:37 -Correct Patient Yes -Correct Side, Site, Position Yes -Correct Procedure Yes -Procedure Performed Yes -Type of Procedure Debridement -Clinical Debridement Subcutaneous -Post Debridement Size (cm) - Length 10 -Post Debridement Size (cm) - Width 8 -Post Debridement Size (cm) - Depth 0.1 -Total Square Cm 80 -Wound/Ulcer Outcome Amputation -Ulcer Cleansing Rinsed/ Irrigated with Saline -Foul Odor after Cleansing No -Bioengineered Tissue Yes -Type of bioengineered Tissue Apligraf -Expiration Date 08/19/18 -Product Lot Number [id number] -Percent Used 100 -Saline Lot Number [id number] -Injectable Lidocaine (%) 4 -Bleeding Controlled with Pressure -Offloading No -Treatment Response Procedure Tolerated Well #13 R Med Heel -Time 10:49 -Correct Patient Yes -Correct Side, Site, Position Yes -Correct Procedure Yes -Procedure Performed Yes -Type of Procedure Debridement -Clinical Debridement Subcutaneous -Post Debridement Size (cm) - Length 2.2 -Post Debridement Size (cm) - Width 4 -Post Debridement Size (cm) - Depth 0.2 -Total Square Cm 8.8 -Wound/Ulcer Outcome Not Healed -Ulcer Cleansing Rinsed/ Irrigated with Saline -Foul Odor after Cleansing No -Bioengineered Tissue Yes -Type of bioengineered Tissue Apligraf -Expiration Date 08/19/18 -Product Lot Number [id number] -Percent Used 100 -Saline Lot Number [id number] -Topical Lidocaine (%) 4 -Bleeding Controlled with Pressure -Offloading No -Treatment Response Procedure Tolerated Well #21 Right Foot-Toes w/Metatarsal Head circumfrential -Time 10:51 -Correct Patient Yes -Correct Side, Site, Position Yes -Correct Procedure Yes -Procedure Performed Yes -Type of Procedure Debridement -Clinical Debridement Subcutaneous -Post Debridement Size (cm) - Length 12.5 -Post Debridement Size (cm) - Width 6 -Post Debridement Size (cm) - Depth 0.3 -Total Square Cm 75.0 -Wound/Ulcer Outcome Not Healed -Ulcer Cleansing Rinsed/ Irrigated with Saline -Foul Odor after Cleansing No -Bioengineered Tissue Yes -Type of bioengineered Tissue Apligraf -Expiration Date 08/19/18 -Product Lot Number [id number] -Percent Used 100 -Saline Lot Number [id number] -Topical Lidocaine (%) 4 -Bleeding Controlled with Pressure -Offloading No -Treatment Response Procedure Tolerated Well [See Physician Procedure note for Specifics] Pain Scale: 0-10 Numeric [Pain] -Is Patient Pain Free? Yes Musculoskeletal: No Tenderness to Palpation of Joints or Extremities, Muscle Wasting Neurological: - - Lack of normal epicritic sensation light touch bilateral lower extremities Psych/Mental Status: Normal Affect, Appropriate Debridement Note Post-Debridement Measurements/Treatment WC - Nurse 2 - General Ulcer CM Notes Start: 08/10/18 09:58 Freq: Status: Active Protocol: Activity Type Activity Date Activity User E-Sign Co-Sign Detail Recorded Client Recorded Date Recorded By Document 08/10/18 10:25 DL [id number] 08/10/18 10:54 DL 08/10/18 10:25 Wound Center Nurse 2 #23 R Post -Time 10:31 -Correct Patient Yes -Correct Side, Site, Position Yes -Correct Procedure Yes -Procedure Performed Yes -Type of Procedure Debridement -Clinical Debridement Subcutaneous -Post Debridement Size (cm) - Length 5 -Post Debridement Size (cm) - Width 4 -Post Debridement Size (cm) - Depth 0.1 -Total Square Cm 20 -Wound/Ulcer Outcome Not Healed -Ulcer Cleansing Rinsed/ Irrigated with Saline -Foul Odor after Cleansing No -Bioengineered Tissue Yes -Type of bioengineered Tissue Apligraf -Expiration Date 08/19/18 -Product Lot Number [id number] -Percent Used 100 -Saline Lot Number [id number] -Topical Lidocaine (%) 4 -Bleeding Controlled with Pressure -Offloading No -Type of Offloading Surgical Shoe -Treatment Response Procedure Tolerated Well #22 left stump -Time 10:37 -Correct Patient Yes -Correct Side, Site, Position Yes -Correct Procedure Yes -Procedure Performed Yes -Type of Procedure Debridement -Clinical Debridement Subcutaneous -Post Debridement Size (cm) - Length 10 -Post Debridement Size (cm) - Width 8 -Post Debridement Size (cm) - Depth 0.1 -Total Square Cm 80 -Wound/Ulcer Outcome Amputation -Ulcer Cleansing Rinsed/ Irrigated with Saline -Foul Odor after Cleansing No -Bioengineered Tissue Yes -Type of bioengineered Tissue Apligraf -Expiration Date 08/19/18 -Product Lot Number [id number] -Percent Used 100 -Saline Lot Number [id number] -Injectable Lidocaine (%) 4 -Bleeding Controlled with Pressure -Offloading No -Treatment Response Procedure Tolerated Well #13 R Med Heel -Time 10:49 -Correct Patient Yes -Correct Side, Site, Position Yes -Correct Procedure Yes -Procedure Performed Yes -Type of Procedure Debridement -Clinical Debridement Subcutaneous -Post Debridement Size (cm) - Length 2.2 -Post Debridement Size (cm) - Width 4 -Post Debridement Size (cm) - Depth 0.2 -Total Square Cm 8.8 -Wound/Ulcer Outcome Not Healed -Ulcer Cleansing Rinsed/ Irrigated with Saline -Foul Odor after Cleansing No -Bioengineered Tissue Yes -Type of bioengineered Tissue Apligraf -Expiration Date 08/19/18 -Product Lot Number [id number] -Percent Used 100 -Saline Lot Number [id number] -Topical Lidocaine (%) 4 -Bleeding Controlled with Pressure -Offloading No -Treatment Response Procedure Tolerated Well #21 Right Foot-Toes w/Metatarsal Head circumfrential -Time 10:51 -Correct Patient Yes -Correct Side, Site, Position Yes -Correct Procedure Yes -Procedure Performed Yes -Type of Procedure Debridement -Clinical Debridement Subcutaneous -Post Debridement Size (cm) - Length 12.5 -Post Debridement Size (cm) - Width 6 -Post Debridement Size (cm) - Depth 0.3 -Total Square Cm 75.0 -Wound/Ulcer Outcome Not Healed -Ulcer Cleansing Rinsed/ Irrigated with Saline -Foul Odor after Cleansing No -Bioengineered Tissue Yes -Type of bioengineered Tissue Apligraf -Expiration Date 08/19/18 -Product Lot Number [id number] -Percent Used 100 -Saline Lot Number [id number] -Topical Lidocaine (%) 4 -Bleeding Controlled with Pressure -Offloading No -Treatment Response Procedure Tolerated Well Pain Scale: 0-10 Numeric Is Patient Pain Free? Yes Wound debrided: toes Laterality: Right Wound Grade/Stage: grade 1 Type of Debridement: Excisional debridement Anesthesia Used: 5% Lidocaine Gel Depth: in the subcutaneous layer Percentage of wound debrided: 100 Instrument Used: #15 blade Tissue Removed: fibrous, devitalized subcutaneous, biofilm, slough Severity: Fat Layer Exposed Amount of bleeding with debridement: Mild Bleeding Controlled with: Pressure Patient tolerated procedure well - Additional Wound Wound debrided: heel Laterality: Right Wound Grade/Stage: grade 3 Type of Debridement: Excisional debridement Anesthesia Used: 5% Lidocaine Gel Depth: in the subcutaneous layer Percentage of wound debrided: 100 Instrument Used: #15 blade Tissue Removed: fibrous, devitalized subcutaneous, biofilm, slough Severity: Fat Layer Exposed Amount of bleeding with debridement: Mild Bleeding Controlled with: Pressure Patient tolerated procedure: Patient tolerated procedure well - Additional Wound Wound debrided: posterior leg Laterality: Right Anesthesia Used: 5% Lidocaine Gel Depth: in the subcutaneous layer Percentage of wound debrided: 20 Instrument Used: #15 blade Tissue Removed: fibrous, devitalized subcutaneous, biofilm, slough Severity: Fat Layer Exposed Amount of bleeding with debridement: Mild Bleeding Controlled with: Pressure Patient tolerated procedure: Patient tolerated procedure well - Additional Wound Wound debrided: leg / stump site Laterality: Left Wound Grade/Stage: grade 1 Type of Debridement: Excisional debridement Anesthesia Used: 5% Lidocaine Gel Depth: in the subcutaneous layer Percentage of wound debrided: 10 Instrument Used: #15 blade Tissue Removed: fibrous, devitalized subcutaneous, biofilm, slough Severity: Fat Layer Exposed Amount of bleeding with debridement: Mild Bleeding Controlled with: Pressure Patient tolerated procedure: Patient tolerated procedure well Assessment/Plan Active Problems Other specified peripheral vascular diseases (Chronic) Chronic ulcer of right foot with fat layer exposed (Chronic) Ulcer of left lower extremity with fat layer exposed (Chronic) Ulcer of right lower extremity with fat layer exposed (Chronic) BKA stump complication (Chronic) Type 2 diabetes mellitus with diabetic polyneuropathy (Chronic) Delayed wound healing (Chronic) Malnutrition (Chronic) Lymphedema (Chronic) Assessment: Right leg ulcer. ulcer right forefoot. right heel ulcer muscle involved and exposed fascia without infection noted today (previous grade 3); s/p surgical debridement and application of advance wound care products. Right foot hypothermia / small vessel disease. 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 Lymphedema. Chronic lower extremity edema and venous insufficiency. Morbid obesity. Type 2 diabetes uncontrolled with peripheral neuropathy. CKD. Hypertension. Malnutrition. Delayed wound healing. Nonadherence to treatment plan Plan: I reviewed and discussed his case debridement done as documented above in the clinical panel; this procedure was well tolerated. I applied Phanfare and he is advised to change this every 1-2 days with home health assistance to the left leg ulcer. Apligraft, advance wound care product was applied according to standard protocol to the right foot and heel and leg sites. All the product was utilized. This was secured with wound veil and Steri-Strips. The indications, planned procedure, and anticipated healing time and management were discussed in detail. He was advised to leave the site clean dry and intact until follow-up visit; it is okay for alf health to change the outer secondary dressing if strikethrough drainage is noted. A dressing applied to the left stump site; he will also leave this intact until next week. Verbal consent was obtained and he tolerated this very well. Additional approval for Apligraf application to the left lower extremity is pending still. This is medically necessary to optimize timely healing. This is also chronic and separate site than the a for mentioned current Apligraf application sites and he is failed conventional therapy for over 6 months. Continue compression left with 3M2L. To avoid trauma and cold exposure to the right foot. He was re- referred to vascular surgeon Dr. Nixon who treated him for PAD and lymphedema. The current recommendation is to continue with strict compression with lymphedema pumps. Per patient, arterial duplex was performed today and he appears to have continued perfusion to the right lower extremity and no vascular intervention is planned at this time. Continue protein suppplements and increased protein in diet. To continue hyperbaric oxygen therapy as scheduled on complaint basis. I encouraged continued use. I also recommend a [facility] clinic. He went approximately 3 years ago and found this to be very helpful. He no longer has his thigh-high compression garments that were arranged for him during this last session. [place] wrap order will be processed at this time for the right lower extremity for better edema control there is a lymphedema clinic in [place] and his information was sent over. They can only see him once he is d/c from home health; this is noted. Follow up in 1 week with at the wound healing center or call sooner if he has any questions or concerns.
[2018-08-17 09:37] VITALS: BP 135/54; PULSE 91; RESP 18; TEMP 36.3
--- NOTE | 2018-08-17 09:38 | WC ---
steristrips and veil left in place on wounds . pt wounds not measured today since they were covered with apligraf and veil.
--- NOTE | 2018-08-17 10:48 | PCM.WC.PN ---
(1) Ulcer of right lower extremity with fat layer exposed Status: Chronic Code(s): L97.912 - Non-pressure chronic ulcer of unspecified part of right lower leg with fat layer exposed (2) Ulcer of left lower extremity with fat layer exposed Status: Chronic Code(s): L97.922 - Non-pressure chronic ulcer of unspecified part of left lower leg with fat layer exposed (3) Chronic ulcer of right foot with fat layer exposed Status: Chronic Code(s): L97.512 - Non-pressure chronic ulcer of other part of right foot with fat layer exposed (4) Other specified peripheral vascular diseases Status: Chronic Code(s): I73.89 - Other specified peripheral vascular diseases (5) BKA stump complication Status: Chronic Code(s): T87.9 - Unspecified complications of amputation stump (6) Type 2 diabetes mellitus with diabetic polyneuropathy Status: Chronic Code(s): E11.42 - Type 2 diabetes mellitus with diabetic polyneuropathy (7) Delayed wound healing Status: Chronic Code(s): T14.8 - Other injury of unspecified body region (8) Malnutrition Status: Chronic Code(s): E46 - Unspecified protein-calorie malnutrition (9) Lymphedema Status: Chronic Code(s): I89.0 - Lymphedema, not elsewhere classified Type of Wound Date of Service: 08/17/18 Chief Complaint: 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 Right toe ulcers and left stump ulcers. Right leg ulcers. Left leg ulcer at stump site. History of Wound: 58-year-old white male returns to clinic for follow-up of bilateral leg ulcers and right foot ulcers. He denies fever, chill, nausea, vomiting, loss of appetite. He had multiple advanced wound care product applications. He kept the Apligraf intact to the right lower extremity as advised. He presents in a wheelchair today. He denies odors or redness. Progress of Wound: Stable right toe and heel areas. Left stump site ulcer stable. Stable right leg ulcers - Physical Exam Vital Signs Temp Pulse Resp BP 97.4 F L 91 18 135/54 H 08/17/18 09:37 08/17/18 09:37 08/17/18 09:37 08/17/18 09:37 General: Alert, Oriented x3, Cooperative Extremities: No cyanosis, Capillary Refill Less than 3 Seconds, No Calf Tenderness - Negative Harry and Badillo sign right, Diminished Peripheral Pulses, Edema - Bilateral lower extremities Skin: Ulcer/ Wound - No purulence, erythema, streaking, odor, infection bilateral. The Apligraf applied last week to the right leg heel and toe region are intact without maceration or necrosis. The left leg ulcer at the stump site has granulation tissue exposed and some fibrous tissue. There is no anna necrosis or infection. The peripheral skin is hairless and atrophic Wound Measurements and Assessment WC - Nurse 1 - General Ulcer Measurement Start: 08/10/18 09:58 Freq: Status: Active Protocol: Activity Type Activity Date Activity User E-Sign Co-Sign Detail Recorded Client Recorded Date Recorded By Document 08/17/18 09:37 RB [id number] 08/17/18 09:43 RB 08/17/18 09:37 Wound Center Nurse 1 [Ulcer Assessment] #23 R Post -Exudate Amt Small -Exudate Type Serosanguineous -Texture (Martha-wound Skin Appearance) Assessed -Moisture (Martha-wound Skin Appearance Assessed ) -Color (Martha-wound Skin Appearance) Hemosiderin Staining #22 left stump -Exudate Amt Medium -Exudate Type Serosanguineous -Texture (Martha-wound Skin Appearance) Excoriation -Moisture (Martha-wound Skin Appearance Assessed ) -Color (Martha-wound Skin Appearance) Assessed #13 R Med Heel -Exudate Amt Small -Exudate Type Serosanguineous -Texture (Martha-wound Skin Appearance) Callus -Moisture (Martha-wound Skin Appearance Assessed ) -Color (Martha-wound Skin Appearance) Assessed #21 Right Foot-Toes w/Metatarsal Head circumfrential -Exudate Amt Medium -Exudate Type Serosanguineous -Texture (Martha-wound Skin Appearance) Assessed -Moisture (Martha-wound Skin Appearance Assessed ) -Color (Martha-wound Skin Appearance) Erythema [Edema Assessment] -Lower Limb Edema Present Yes -Right Calf (cm) 40 -Right Ankle (cm) 28.5 -Left Calf (cm) 44 WC - Nurse 2 - General Ulcer CM Notes Start: 08/10/18 09:58 Freq: Status: Active Protocol: Activity Type Activity Date Activity User E-Sign Co-Sign Detail Recorded Client Recorded Date Recorded By Document 08/17/18 09:59 AN [id number] 08/17/18 10:07 AN 08/17/18 09:59 Wound Center Nurse 2 [Procedure/Treatment] #22 left stump -Time 10:01 -Correct Patient Yes -Correct Side, Site, Position Yes -Correct Procedure Yes -Procedure Performed Yes -Type of Procedure Debridement -Clinical Debridement Subcutaneous -Post Debridement Size (cm) - Length 10 -Post Debridement Size (cm) - Width 8.0 -Post Debridement Size (cm) - Depth 0.1 -Total Square Cm 80.0 -Wound/Ulcer Outcome Amputation -Ulcer Cleansing Rinsed/ Irrigated with Saline -Foul Odor after Cleansing Yes, Due to Product Use -Bioengineered Tissue Yes -Type of bioengineered Tissue Apligraf -Expiration Date 08/20/18 -Product Lot Number [id number] -Percent Used 100 -Saline Lot Number [id number] -Bleeding Controlled with Pressure -Offloading No -Treatment Response Procedure Tolerated Well [See Physician Procedure note for Specifics] Pain Scale: 0-10 Numeric [Pain] -Is Patient Pain Free? Yes Musculoskeletal: No Tenderness to Palpation of Joints or Extremities, Muscle Wasting, - - Left below-knee amputation Neurological: - - Lack of normal epicritic sensation light touch bilateral lower extremities consistent with neuropathy Psych/Mental Status: Normal Affect, Appropriate Debridement Note Post-Debridement Measurements/Treatment WC - Nurse 2 - General Ulcer CM Notes Start: 08/10/18 09:58 Freq: Status: Active Protocol: Activity Type Activity Date Activity User E-Sign Co-Sign Detail Recorded Client Recorded Date Recorded By Document 08/10/18 10:25 DL [id number] 08/10/18 10:54 DL Document 08/17/18 09:59 AN [id number] 08/17/18 10:07 AN 08/10/18 08/17/18 10:25 09:59 Wound Center Nurse 2 #23 R Post -Time 10:31 -Correct Patient Yes -Correct Side, Site, Position Yes -Correct Procedure Yes -Procedure Performed Yes -Type of Procedure Debridement -Clinical Debridement Subcutaneous -Post Debridement Size (cm) - Length 5 -Post Debridement Size (cm) - Width 4 -Post Debridement Size (cm) - Depth 0.1 -Total Square Cm 20 -Wound/Ulcer Outcome Not Healed -Ulcer Cleansing Rinsed/ Irrigated with Saline -Foul Odor after Cleansing No -Bioengineered Tissue Yes -Type of bioengineered Tissue Apligraf -Expiration Date 08/19/18 -Product Lot Number [id number] -Percent Used 100 -Saline Lot Number [id number] -Topical Lidocaine (%) 4 -Bleeding Controlled with Pressure -Offloading No -Type of Offloading Surgical Shoe -Treatment Response Procedure Tolerated Well #22 left stump -Time 10:37 10:01 -Correct Patient Yes Yes -Correct Side, Site, Position Yes Yes -Correct Procedure Yes Yes -Procedure Performed Yes Yes -Type of Procedure Debridement Debridement -Clinical Debridement Subcutaneous Subcutaneous -Post Debridement Size (cm) - Length 10 10 -Post Debridement Size (cm) - Width 8 8.0 -Post Debridement Size (cm) - Depth 0.1 0.1 -Total Square Cm 80 80.0 -Wound/Ulcer Outcome Amputation Amputation -Ulcer Cleansing Rinsed/ Rinsed/ Irrigated with Irrigated with Saline Saline -Foul Odor after Cleansing No Yes, Due to Product Use -Bioengineered Tissue Yes Yes -Type of bioengineered Tissue Apligraf Apligraf -Expiration Date 08/19/18 08/20/18 -Product Lot Number [id number] -Percent Used 100 100 -Saline Lot Number [id number] -Injectable Lidocaine (%) 4 -Bleeding Controlled with Pressure Pressure -Offloading No No -Treatment Response Procedure Procedure Tolerated Well Tolerated Well #13 R Med Heel -Time 10:49 -Correct Patient Yes -Correct Side, Site, Position Yes -Correct Procedure Yes -Procedure Performed Yes -Type of Procedure Debridement -Clinical Debridement Subcutaneous -Post Debridement Size (cm) - Length 2.2 -Post Debridement Size (cm) - Width 4 -Post Debridement Size (cm) - Depth 0.2 -Total Square Cm 8.8 -Wound/Ulcer Outcome Not Healed -Ulcer Cleansing Rinsed/ Irrigated with Saline -Foul Odor after Cleansing No -Bioengineered Tissue Yes -Type of bioengineered Tissue Apligraf -Expiration Date 08/19/18 -Product Lot Number [id number] -Percent Used 100 -Saline Lot Number [id number] -Topical Lidocaine (%) 4 -Bleeding Controlled with Pressure -Offloading No -Treatment Response Procedure Tolerated Well #21 Right Foot-Toes w/Metatarsal Head circumfrential -Time 10:51 -Correct Patient Yes -Correct Side, Site, Position Yes -Correct Procedure Yes -Procedure Performed Yes -Type of Procedure Debridement -Clinical Debridement Subcutaneous -Post Debridement Size (cm) - Length 12.5 -Post Debridement Size (cm) - Width 6 -Post Debridement Size (cm) - Depth 0.3 -Total Square Cm 75.0 -Wound/Ulcer Outcome Not Healed -Ulcer Cleansing Rinsed/ Irrigated with Saline -Foul Odor after Cleansing No -Bioengineered Tissue Yes -Type of bioengineered Tissue Apligraf -Expiration Date 08/19/18 -Product Lot Number [id number] -Percent Used 100 -Saline Lot Number [id number] -Topical Lidocaine (%) 4 -Bleeding Controlled with Pressure -Offloading No -Treatment Response Procedure Tolerated Well Pain Scale: 0-10 Numeric Is Patient Pain Free? Yes Yes Wound debrided: leg Laterality: Left Wound Grade/Stage: grade 1 Type of Debridement: Excisional debridement Anesthesia Used: 5% Lidocaine Gel Depth: in the subcutaneous layer Percentage of wound debrided: 100 Instrument Used: #15 blade Tissue Removed: fibrous, devitalized subcutaneous, biofilm, slough Severity: Fat Layer Exposed Amount of bleeding with debridement: Mild Bleeding Controlled with: Pressure Patient tolerated procedure well Assessment/Plan Assessment: Right leg ulcer. ulcer right forefoot. right heel ulcer muscle involved and exposed fascia without infection noted today (previous grade 3); s/p surgical debridement and application of advance wound care products. 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 Lymphedema. Chronic lower extremity edema and venous insufficiency. Morbid obesity. Type 2 diabetes uncontrolled with peripheral neuropathy. CKD. Hypertension. Malnutrition. Delayed wound healing. Nonadherence to treatment plan Plan: I reviewed and discussed his case debridement done as documented above in the clinical panel to the left limb this procedure was well tolerated. Apligraft, advance wound care product was applied according to standard protocol to the left leg stump site. All the product was utilized. This was secured with wound veil and Steri-Strips. The indications, planned procedure, and anticipated healing time and management were discussed in detail. He was advised to leave the site clean dry and intact until follow-up visit; it is okay for [facility] to change the outer secondary dressing if strikethrough drainage is noted. A dressing applied to the left stump site; he will also leave this intact until next week. Verbal consent was obtained and he tolerated this very well. Additional approval for Apligraf application to the left lower extremity is pending still. This is medically necessary to optimize timely healing. This is also chronic and separate site than the a for mentioned current Apligraf application sites and he is failed conventional therapy for over 6 months. Continue compression left with 3M2L. To avoid trauma and cold exposure to the right foot. He was re-referred to vascular surgeon Dr. Nixon who treated him for PAD and lymphedema. The current recommendation is to continue with strict compression with lymphedema pumps. Per patient, arterial duplex was performed during his last vascular surgery follow-up, and he appears to have continued perfusion to the right lower extremity and no vascular intervention is planned at this time. Continue protein suppplements and increased protein in diet. It is noted he has been completing hyperbaric oxygen therapy sessions and has done well. I also recommend a lymphedema clinic. He went approximately 3 years ago and found this to be very helpful. He no longer has his thigh-high compression garments that were arranged for him during this last session. [place] wrap order will be processed at this time for the right lower extremity for better edema control there is a lymphedema clinic in [place] and his information was sent over. They can only see him once he is d/c from home health; this is noted. Follow up in 1 week with at the wound healing center or call sooner if he has any questions or concerns.
[2018-08-24 09:42] VITALS: BP 146/64; PULSE 91; RESP 18; TEMP 36.1
--- NOTE | 2018-08-24 09:44 | WC ---
Left stump wound not measured due to apligaf left in place. steristrips and veil left in place
--- NOTE | 2018-08-24 12:47 | PCM.WC.PN ---
(1) Ulcer of right lower extremity with fat layer exposed Status: Resolved Current Visit: Yes Code(s): L97.912 - Non-pressure chronic ulcer of unspecified part of right lower leg with fat layer exposed (2) Ulcer of left lower extremity with fat layer exposed Status: Chronic Current Visit: Yes Code(s): L97.922 - Non-pressure chronic ulcer of unspecified part of left lower leg with fat layer exposed (3) Chronic ulcer of right foot with fat layer exposed Status: Chronic Current Visit: Yes Code(s): L97.512 - Non-pressure chronic ulcer of other part of right foot with fat layer exposed (4) Other specified peripheral vascular diseases Status: Chronic Current Visit: Yes Code(s): I73.89 - Other specified peripheral vascular diseases (5) BKA stump complication Status: Chronic Current Visit: Yes Code(s): T87.9 - Unspecified complications of amputation stump (6) Type 2 diabetes mellitus with diabetic polyneuropathy Status: Chronic Current Visit: Yes Code(s): E11.42 - Type 2 diabetes mellitus with diabetic polyneuropathy (7) Delayed wound healing Status: Chronic Current Visit: Yes Code(s): T14.8 - Other injury of unspecified body region (8) Malnutrition Status: Chronic Current Visit: Yes Code(s): E46 - Unspecified protein-calorie malnutrition (9) Lymphedema Status: Chronic Current Visit: Yes Code(s): I89.0 - Lymphedema, not elsewhere classified Type of Wound Date of Service: 08/24/18 Chief Complaint: 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 Right toe ulcers and left stump ulcers. Right leg ulcers. Left leg ulcer at stump site. History of Wound: 58-year-old white male returns to clinic for follow-up of bilateral leg ulcers and right foot ulcers. He denies fever, chill, nausea, vomiting, loss of appetite. He had multiple advanced wound care product applications. He kept the Apligraf intact to the right and left lower extremities as advised. He presents in a wheelchair today. He denies odors or redness. Progress of Wound: Stable right toe and heel areas. Left stump site ulcer stable. Stable right leg ulcers - Physical Exam Vital Signs Temp Pulse Resp BP 96.9 F L 91 18 146/64 H 08/24/18 09:42 08/24/18 09:42 08/24/18 09:42 08/24/18 09:42 General: Alert, Oriented x3, Cooperative Extremities: No cyanosis, Capillary Refill Less than 3 Seconds, No Calf Tenderness - Negative Harry and Badillo sign right, Diminished Peripheral Pulses, Edema - Bilateral lower extremities, - - Left below-knee amputation with stump site swelling. Bilateral lymphedema consistent with prior visit Skin: Ulcer/ Wound - No purulence, erythema, streaking, odor, or infection bilateral lower extremities. The Apligraf remains intact and is incorporating well to the left stump site. There is full epithelialization noted to the right leg ulcer site. There is partial epithelialization and skin island formation to the right toe and heel site with interspersed granulation tissue. The peripheral skin is very hairless and atrophic Wound Measurements and Assessment WC - Nurse 1 - General Ulcer Measurement Start: 08/10/18 09:58 Freq: Status: Active Protocol: Activity Type Activity Date Activity User E-Sign Co-Sign Detail Recorded Client Recorded Date Recorded By Document 08/24/18 09:42 [id number] 08/24/18 09:54 RB 08/24/18 09:42 Wound Center Nurse 1 [Ulcer Assessment] #23 R Post -Combined with other wound No -Current Size (cm) - Length 0 -Current Size (cm) - Width 0 -Current Size (cm) - Depth 0 -Total Square Cm 0 -Photo Taken Yes -Epithelialization Large 67-100% -Exudate Amt None Present -Wound Margin Distinct, Outline Attached -Granulation Amt Large (67-100%) -Granulation Quality [place] -Slough/Fibrin No -Necrosis Amt None Present (0 %) -Texture (Martha-wound Skin Appearance) Assessed -Moisture (Martha-wound Skin Appearance Assessed ) -Color (Martha-wound Skin Appearance) Assessed -Temperature (Martha-wound Skin No Abnormality Appearance) (Pt Warm) -Tenderness on Palpation (Martha-wound No Skin Appearance) -Ulcer Cleansing Wound Cleanser #22 left stump -Combined with other wound No -Photo Taken No -Exudate Amt Large -Exudate Type Yellow/Green -Wound Margin Distinct, Outline Attached #13 R Med Heel -Combined with other wound No -Current Size (cm) - Length 2.8 -Current Size (cm) - Width 1.8 -Current Size (cm) - Depth 0.1 -Total Square Cm 5.04 -Tunneling No -Undermining/Tunneling No -Circular Undermining No -Exudate Amt Medium -Exudate Type Serosanguineous -Wound Margin Thickened -Granulation Amt Medium (34-66%) -Granulation Quality [place] -Slough/Fibrin Yes -Necrosis Amt Medium (34-66%) -Necrotic Tissue Type Adherent Slough -Structure Exposed N/A -Texture (Martha-wound Skin Appearance) Assessed -Moisture (Martha-wound Skin Appearance Maceration ) -Color (Martha-wound Skin Appearance) Assessed -Temperature (Martha-wound Skin No Abnormality Appearance) (Pt Warm) -Tenderness on Palpation (Martha-wound No Skin Appearance) -Ulcer Cleansing Wound Cleanser -Foul Odor after Cleansing No -Anesthetic Used 5% Lidocaine Gel #21 Right Foot-Toes w/Metatarsal Head circumfrential -Combined with other wound No -Current Size (cm) - Length 14.5 -Current Size (cm) - Width 6.8 -Current Size (cm) - Depth 0.1 -Total Square Cm 98.60 -Tunneling No -Undermining/Tunneling No -Circular Undermining No -Exudate Amt Large -Exudate Type Serosanguineous -Wound Margin Distinct, Outline Attached -Granulation Amt Medium (34-66%) -Granulation Quality [place] -Slough/Fibrin Yes -Necrosis Amt Small (1-33%) -Necrotic Tissue Type Adherent Slough -Structure Exposed N/A -Texture (Martha-wound Skin Appearance) Assessed -Moisture (Martha-wound Skin Appearance Maceration ) -Color (Martha-wound Skin Appearance) Assessed -Temperature (Martha-wound Skin No Abnormality Appearance) (Pt Warm) -Tenderness on Palpation (Martha-wound No Skin Appearance) -Ulcer Cleansing Wound Cleanser -Foul Odor after Cleansing No -Anesthetic Used 4% Lidocaine Solution [Edema Assessment] -Lower Limb Edema Present Yes -Right Calf (cm) 37 -Right Ankle (cm) 29 -Left Calf (cm) 46 08/24/18 09:44 Wound Center by Michelle Hu Left stump wound not measured due to apligaf left in place. steristrips and veil left in place Initialized on 08/24/18 09:44 - END OF NOTE WC - Nurse 2 - General Ulcer CM Notes Start: 03/06/19 09:58 Freq: Status: Active Protocol: Activity Type Activity Date Activity User E-Sign Co-Sign Detail Recorded Client Recorded Date Recorded By Document 08/24/18 10:06 AN [id number] 08/24/18 10:19 AN 08/24/18 10:06 Wound Center Nurse 2 [Procedure/Treatment] #13 R Med Heel -Time 10:09 -Correct Patient Yes -Correct Side, Site, Position Yes -Correct Procedure Yes -Procedure Performed Yes -Type of Procedure Debridement -Clinical Debridement Subcutaneous -Post Debridement Size (cm) - Length 2.9 -Post Debridement Size (cm) - Width 1.9 -Post Debridement Size (cm) - Depth 0.1 -Total Square Cm 5.51 -Wound/Ulcer Outcome Not Healed -Ulcer Cleansing Rinsed/ Irrigated with Saline -Foul Odor after Cleansing Yes, Due to Product Use -Bioengineered Tissue Yes -Type of bioengineered Tissue Apligraf -Expiration Date 08/25/18 -Product Lot Number [id number] -Percent Used 100 -Saline Lot Number [id number] -Topical Lidocaine (%) 4 -Bleeding Controlled with Pressure -Offloading Yes -Type of Offloading Surgical Shoe -Treatment Response Procedure Tolerated Well #21 Right Foot-Toes w/Metatarsal Head circumfrential -Time 10:10 -Correct Patient Yes -Correct Side, Site, Position Yes -Correct Procedure Yes -Procedure Performed Yes -Type of Procedure Debridement -Clinical Debridement Subcutaneous -Post Debridement Size (cm) - Length 14.6 -Post Debridement Size (cm) - Width 6.9 -Post Debridement Size (cm) - Depth 0.1 -Total Square Cm 100.74 -Wound/Ulcer Outcome Not Healed -Ulcer Cleansing Rinsed/ Irrigated with Saline -Foul Odor after Cleansing Yes, Due to Product Use -Bioengineered Tissue Yes -Type of bioengineered Tissue Apligraf -Expiration Date 08/25/18 -Product Lot Number [id number] -Percent Used 100 -Saline Lot Number [id number] -Topical Lidocaine (%) 4 -Bleeding Controlled with Pressure -Offloading Yes -Type of Offloading Surgical Shoe -Treatment Response Procedure Tolerated Well [See Physician Procedure note for Specifics] Pain Scale: 0-10 Numeric [Pain] -Is Patient Pain Free? Yes Musculoskeletal: No Tenderness to Palpation of Joints or Extremities, Muscle Wasting, - - Compartments soft to palpate bilateral Neurological: - - Lack of epicritic sensation light touch bilateral lower extremities Psych/Mental Status: Normal Affect, Appropriate Debridement Note Post-Debridement Measurements/Treatment WC - Nurse 2 - General Ulcer CM Notes Start: 08/10/18 09:58 Freq: Status: Active Protocol: Activity Type Activity Date Activity User E-Sign Co-Sign Detail Recorded Client Recorded Date Recorded By Document 08/10/18 10:25 DL [id number] 08/10/18 10:54 DL Document 08/17/18 09:59 AN [id number] 08/17/18 10:07 AN Document 08/24/18 10:06 AN [id number] 08/24/18 10:19 AN 08/10/18 08/17/18 08/24/18 10:25 09:59 10:06 Wound Center Nurse 2 #23 R Post -Time 10:31 -Correct Patient Yes -Correct Side, Site, Position Yes -Correct Procedure Yes -Procedure Performed Yes -Type of Procedure Debridement -Clinical Debridement Subcutaneous -Post Debridement Size (cm) - Length 5 -Post Debridement Size (cm) - Width 4 -Post Debridement Size (cm) - Depth 0.1 -Total Square Cm 20 -Wound/Ulcer Outcome Not Healed -Ulcer Cleansing Rinsed/ Irrigated with Saline -Foul Odor after Cleansing No -Bioengineered Tissue Yes -Type of bioengineered Tissue Apligraf -Expiration Date 08/19/18 -Product Lot Number [id number] -Percent Used 100 -Saline Lot Number [id number] -Topical Lidocaine (%) 4 -Bleeding Controlled with Pressure -Offloading No -Type of Offloading Surgical Shoe -Treatment Response Procedure Tolerated Well #22 left stump -Time 10:37 10:01 -Correct Patient Yes Yes -Correct Side, Site, Position Yes Yes -Correct Procedure Yes Yes -Procedure Performed Yes Yes -Type of Procedure Debridement Debridement -Clinical Debridement Subcutaneous Subcutaneous -Post Debridement Size (cm) - Length 10 10 -Post Debridement Size (cm) - Width 8 8.0 -Post Debridement Size (cm) - Depth 0.1 0.1 -Total Square Cm 80 80.0 -Wound/Ulcer Outcome Amputation Amputation -Ulcer Cleansing Rinsed/ Rinsed/ Irrigated with Irrigated with Saline Saline -Foul Odor after Cleansing No Yes, Due to Product Use -Bioengineered Tissue Yes Yes -Type of bioengineered Tissue Apligraf Apligraf -Expiration Date 08/19/18 08/20/18 -Product Lot Number [id number] -Percent Used 100 100 -Saline Lot Number [id number] -Injectable Lidocaine (%) 4 -Bleeding Controlled with Pressure Pressure -Offloading No No -Treatment Response Procedure Procedure Tolerated Well Tolerated Well #13 R Med Heel -Time 10:49 10:09 -Correct Patient Yes Yes -Correct Side, Site, Position Yes Yes -Correct Procedure Yes Yes -Procedure Performed Yes Yes -Type of Procedure Debridement Debridement -Clinical Debridement Subcutaneous Subcutaneous -Post Debridement Size (cm) - Length 2.2 2.9 -Post Debridement Size (cm) - Width 4 1.9 -Post Debridement Size (cm) - Depth 0.2 0.1 -Total Square Cm 8.8 5.51 -Wound/Ulcer Outcome Not Healed Not Healed -Ulcer Cleansing Rinsed/ Rinsed/ Irrigated with Irrigated with Saline Saline -Foul Odor after Cleansing No Yes, Due to Product Use -Bioengineered Tissue Yes Yes -Type of bioengineered Tissue Apligraf Apligraf -Expiration Date 08/19/18 08/25/18 -Product Lot Number [id number] -Percent Used 100 100 -Saline Lot Number [id number] -Topical Lidocaine (%) 4 4 -Bleeding Controlled with Pressure Pressure -Offloading No Yes -Type of Offloading Surgical Shoe -Treatment Response Procedure Procedure Tolerated Well Tolerated Well #21 Right Foot-Toes w/Metatarsal Head circumfrential -Time 10:51 10:10 -Correct Patient Yes Yes -Correct Side, Site, Position Yes Yes -Correct Procedure Yes Yes -Procedure Performed Yes Yes -Type of Procedure Debridement Debridement -Clinical Debridement Subcutaneous Subcutaneous -Post Debridement Size (cm) - Length 12.5 14.6 -Post Debridement Size (cm) - Width 6 6.9 -Post Debridement Size (cm) - Depth 0.3 0.1 -Total Square Cm 75.0 100.74 -Wound/Ulcer Outcome Not Healed Not Healed -Ulcer Cleansing Rinsed/ Rinsed/ Irrigated with Irrigated with Saline Saline -Foul Odor after Cleansing No Yes, Due to Product Use -Bioengineered Tissue Yes Yes -Type of bioengineered Tissue Apligraf Apligraf -Expiration Date 08/19/18 08/25/18 -Product Lot Number [id number] -Percent Used 100 100 -Saline Lot Number [id number] -Topical Lidocaine (%) 4 4 -Bleeding Controlled with Pressure Pressure -Offloading No Yes -Type of Offloading Surgical Shoe -Treatment Response Procedure Procedure Tolerated Well Tolerated Well Pain Scale: 0-10 Numeric Is Patient Pain Free? Yes Yes Yes Wound debrided: heel Laterality: Right Wound Grade/Stage: grade 3 Type of Debridement: Excisional debridement Anesthesia Used: 5% Lidocaine Gel Depth: in the subcutaneous layer Percentage of wound debrided: 100 Instrument Used: #15 blade Tissue Removed: fibrous, devitalized subcutaneous, biofilm, slough Severity: Fat Layer Exposed Amount of bleeding with debridement: Mild Bleeding Controlled with: Pressure Patient tolerated procedure well - Additional Wound Wound debrided: toes Laterality: Right Wound Grade/Stage: grade 1 Type of Debridement: Excisional debridement Anesthesia Used: 5% Lidocaine Gel Depth: in the subcutaneous layer Percentage of wound debrided: 100 Instrument Used: #15 blade Tissue Removed: fibrous, devitalized subcutaneous, biofilm, slough Severity: Fat Layer Exposed Amount of bleeding with debridement: Mild Bleeding Controlled with: Pressure Patient tolerated procedure: Patient tolerated procedure well Assessment/Plan Active Problems Other specified peripheral vascular diseases (Chronic) Chronic ulcer of right foot with fat layer exposed (Chronic) Ulcer of left lower extremity with fat layer exposed (Chronic) BKA stump complication (Chronic) Type 2 diabetes mellitus with diabetic polyneuropathy (Chronic) Delayed wound healing (Chronic) Malnutrition (Chronic) Lymphedema (Chronic) Assessment: Right leg ulcer healed. ulcer right forefoot. right heel ulcer muscle involved and exposed fascia without infection noted today (previous grade 3); s/p surgical debridement and application of advance wound care products. Left below-knee amputation with fat tissue exposed - Apligraf remains intact. Lymphedema. Chronic lower extremity edema and venous insufficiency. Morbid obesity. Type 2 diabetes uncontrolled with peripheral neuropathy. CKD. Hypertension. Malnutrition. Delayed wound healing. Nonadherence to treatment plan Plan: I reviewed and discussed his case debridement done as documented above in the clinical panel to the left limb this procedure was well tolerated. Apligraft, advance wound care product was applied according to standard protocol to the right foot sites. All the product was utilized. This was secured with wound veil and Steri-Strips. The indications, planned procedure, and anticipated healing time and management were discussed in detail. He was advised to leave the site clean dry and intact until follow-up visit; it is okay for [facility] to change the outer secondary dressing if strikethrough drainage is noted. A another secondary dressing was applied to the left stump site; to leave intact until next week as well. Verbal consent was obtained and he tolerated this very well. Additional approval for Apligraf application to the left lower extremity is pending still. This is medically necessary to optimize timely healing. This is also chronic and separate site than the a for mentioned current Apligraf application sites and he is failed conventional therapy for over 6 months. Continue compression left with 3M2L. To avoid trauma and cold exposure to the right foot. He was re-referred to vascular surgeon Dr. Nixon who treated him for PAD and lymphedema. The current recommendation is to continue with strict compression with lymphedema pumps. Per patient, arterial duplex was performed during his last vascular surgery follow-up, and he appears to have continued perfusion to the right lower extremity and no vascular intervention is planned at this time. Continue protein suppplements and increased protein in diet. It is noted he has been completing hyperbaric oxygen therapy sessions and has done well. I also recommend a lymphedema clinic. He went approximately 3 years ago and found this to be very helpful. He no longer has his thigh-high compression garments that were arranged for him during this last session. [place] wrap order will be processed at this time for the right lower extremity for better edema control there is a lymphedema clinic in [place] and his information was sent over. They can only see him once he is d/c from home health; this is noted. Follow up in 1 week with at the wound healing center or call sooner if he has any questions or concerns.
[2018-08-31 09:18] VITALS: BP 141/61; PULSE 90; RESP 16; TEMP 36.2
--- NOTE | 2018-08-31 14:21 | PCM.WC.PN ---
(1) Ulcer of right lower extremity with fat layer exposed Status: Acute Code(s): L97.912 - Non-pressure chronic ulcer of unspecified part of right lower leg with fat layer exposed (2) Ulcer of left lower extremity with fat layer exposed Status: Chronic Code(s): L97.922 - Non-pressure chronic ulcer of unspecified part of left lower leg with fat layer exposed (3) Chronic ulcer of right foot with fat layer exposed Status: Chronic Code(s): L97.512 - Non-pressure chronic ulcer of other part of right foot with fat layer exposed (4) Other specified peripheral vascular diseases Status: Chronic Code(s): I73.89 - Other specified peripheral vascular diseases (5) BKA stump complication Status: Chronic Code(s): T87.9 - Unspecified complications of amputation stump (6) Type 2 diabetes mellitus with diabetic polyneuropathy Status: Chronic Code(s): E11.42 - Type 2 diabetes mellitus with diabetic polyneuropathy (7) Delayed wound healing Status: Chronic Code(s): T14.8 - Other injury of unspecified body region (8) Malnutrition Status: Chronic Code(s): E46 - Unspecified protein-calorie malnutrition (9) Lymphedema Status: Chronic Code(s): I89.0 - Lymphedema, not elsewhere classified Type of Wound Date of Service: 08/31/18 Chief Complaint: 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 Right toe ulcers and left stump ulcers. Right leg ulcers new today. Left leg ulcer at stump site. History of Wound: 58-year-old white male returns to clinic for follow-up of bilateral leg ulcers and right foot ulcers. He denies fever, chill, nausea, vomiting, loss of appetite. He had multiple advanced wound care product applications. He kept the Apligraf intact to the right and left lower extremities as advised. He presents in a wheelchair today. He denies odors or redness. He relates he ran out of dressing supplies and his leg had increased swelling one day last week and now he has a new ulcer to his right leg. Progress of Wound: Stable right toe and heel areas. Left stump site ulcer stable. Returned new right leg ulcer - Physical Exam Vital Signs Temp Pulse Resp BP 97.1 F L 90 16 141/61 H 08/31/18 09:18 08/31/18 09:18 08/31/18 09:18 08/31/18 09:18 General: Alert, Oriented x3, Cooperative Extremities: No cyanosis, Capillary Refill Less than 3 Seconds, No Calf Tenderness - Negative Harry and Badillo right, Diminished Peripheral Pulses, Edema, - - Left below-knee amputation Skin: Ulcer/ Wound - No purulence, erythema, streaking, odor, or infection. The Apligraf remains intact and secured with wound veil and Steri-Strips to the right foot and these were left intact. The left ulcer site is sub-hemorrhagic and subcutaneous granular tissue is noted. There is some moisture without anna maceration or eschar. The Apligraf was applied to the site. The new right posterior lateral ulcer site has a granular base as well. The peripheral skin is hairless and atrophic. Wound Measurements and Assessment WC - Nurse 1 - General Ulcer Measurement Start: 08/10/18 09:58 Freq: Status: Active Protocol: Activity Type Activity Date Activity User E-Sign Co-Sign Detail Recorded Client Recorded Date Recorded By Document 08/31/18 09:18 [id number] 08/31/18 09:37 08/31/18 09:18 Wound Center Nurse 1 [Ulcer Assessment] #22 left stump -Combined with other wound No -Current Size (cm) - Length 1.5 -Current Size (cm) - Width 5 -Current Size (cm) - Depth 0.1 -Total Square Cm 7.5 -Photo Taken Yes -Epithelialization None Present -Tunneling No -Undermining/Tunneling No -Circular Undermining No -Exudate Amt Large -Exudate Type Yellow/Green -Wound Margin Flat & Intact -Granulation Amt Small (1-33%) -Granulation Quality [place] -Slough/Fibrin Yes -Necrosis Amt Large (67-100%) -Necrotic Tissue Type Adherent Slough -Structure Exposed N/A -Texture (Martha-wound Skin Appearance) Assessed Friable Localized Edema -Moisture (Martha-wound Skin Appearance Assessed ) Maceration -Color (Martha-wound Skin Appearance) Assessed -Temperature (Martha-wound Skin No Abnormality Appearance) (Pt Warm) -Tenderness on Palpation (Martha-wound No Skin Appearance) -Ulcer Cleansing Wound Cleanser -Foul Odor after Cleansing No -Anesthetic Used 4% Lidocaine Solution #13 R Med Heel -Photo Taken Yes #21 Right Foot-Toes w/Metatarsal Head circumfrential -Photo Taken Yes [Edema Assessment] -Lower Limb Edema Present Yes -Right Calf (cm) 37.2 -Right Ankle (cm) 28.4 -Left Calf (cm) 43.3 WC - Nurse 2 - General Ulcer CM Notes Start: 08/10/18 09:58 Freq: Status: Active Protocol: Activity Type Activity Date Activity User E-Sign Co-Sign Detail Recorded Client Recorded Date Recorded By Document 08/31/18 09:47 AN [email or web address] 08/31/18 09:59 AN 08/31/18 09:47 Wound Center Nurse 2 [Procedure/Treatment] #22 left stump -Time 09:53 -Correct Patient Yes -Correct Side, Site, Position Yes -Correct Procedure Yes -Procedure Performed Yes -Type of Procedure Debridement -Clinical Debridement Subcutaneous -Post Debridement Size (cm) - Length 1.6 -Post Debridement Size (cm) - Width 6.1 -Post Debridement Size (cm) - Depth 0.1 -Total Square Cm 9.76 -Wound/Ulcer Outcome Amputation -Ulcer Cleansing Rinsed/ Irrigated with Saline -Foul Odor after Cleansing Yes, Due to Product Use -Bioengineered Tissue Yes -Type of bioengineered Tissue Apligraf -Expiration Date 09/02/18 -Product Lot Number [id number] -Percent Used 100 -Saline Lot Number [id number] -Topical Lidocaine (%) 4 -Bleeding Controlled with Pressure -Offloading No -Treatment Response Procedure Tolerated Well [See Physician Procedure note for Specifics] Pain Scale: 0-10 Numeric [Pain] -Is Patient Pain Free? Yes Musculoskeletal: No Tenderness to Palpation of Joints or Extremities, Muscle Wasting Neurological: - - Lack of epicritic sensation is consistent with neuropathy bilateral Psych/Mental Status: Normal Affect, Appropriate Debridement Note Post-Debridement Measurements/Treatment WC - Nurse 2 - General Ulcer CM Notes Start: 08/10/18 09:58 Freq: Status: Active Protocol: Activity Type Activity Date Activity User E-Sign Co-Sign Detail Recorded Client Recorded Date Recorded By Document 08/10/18 10:25 DL [id number] 08/10/18 10:54 DL Document 08/17/18 09:59 AN [id number] 08/17/18 10:07 AN Document 08/24/18 10:06 AN [id number] 08/24/18 10:19 AN Document 08/31/18 09:47 AN [email or web address] 08/31/18 09:59 AN 08/10/18 08/17/18 08/24/18 10:25 09:59 10:06 Wound Center Nurse 2 #23 R Post -Time 10:31 -Correct Patient Yes -Correct Side, Site, Position Yes -Correct Procedure Yes -Procedure Performed Yes -Type of Procedure Debridement -Clinical Debridement Subcutaneous -Post Debridement Size (cm) - Length 5 -Post Debridement Size (cm) - Width 4 -Post Debridement Size (cm) - Depth 0.1 -Total Square Cm 20 -Wound/Ulcer Outcome Not Healed -Ulcer Cleansing Rinsed/ Irrigated with Saline -Foul Odor after Cleansing No -Bioengineered Tissue Yes -Type of bioengineered Tissue Apligraf -Expiration Date 08/19/18 -Product Lot Number [id number] -Percent Used 100 -Saline Lot Number [id number] -Topical Lidocaine (%) 4 -Bleeding Controlled with Pressure -Offloading No -Type of Offloading Surgical Shoe -Treatment Response Procedure Tolerated Well #22 left stump -Time 10:37 10:01 -Correct Patient Yes Yes -Correct Side, Site, Position Yes Yes -Correct Procedure Yes Yes -Procedure Performed Yes Yes -Type of Procedure Debridement Debridement -Clinical Debridement Subcutaneous Subcutaneous -Post Debridement Size (cm) - Length 10 10 -Post Debridement Size (cm) - Width 8 8.0 -Post Debridement Size (cm) - Depth 0.1 0.1 -Total Square Cm 80 80.0 -Wound/Ulcer Outcome Amputation Amputation -Ulcer Cleansing Rinsed/ Rinsed/ Irrigated with Irrigated with Saline Saline -Foul Odor after Cleansing No Yes, Due to Product Use -Bioengineered Tissue Yes Yes -Type of bioengineered Tissue Apligraf Apligraf -Expiration Date 08/19/18 08/20/18 -Product Lot Number [id number] -Percent Used 100 100 -Saline Lot Number [id number] -Topical Lidocaine (%) -Injectable Lidocaine (%) 4 -Bleeding Controlled with Pressure Pressure -Offloading No No -Treatment Response Procedure Procedure Tolerated Well Tolerated Well #13 R Med Heel -Time 10:49 10:09 -Correct Patient Yes Yes -Correct Side, Site, Position Yes Yes -Correct Procedure Yes Yes -Procedure Performed Yes Yes -Type of Procedure Debridement Debridement -Clinical Debridement Subcutaneous Subcutaneous -Post Debridement Size (cm) - Length 2.2 2.9 -Post Debridement Size (cm) - Width 4 1.9 -Post Debridement Size (cm) - Depth 0.2 0.1 -Total Square Cm 8.8 5.51 -Wound/Ulcer Outcome Not Healed Not Healed -Ulcer Cleansing Rinsed/ Rinsed/ Irrigated with Irrigated with Saline Saline -Foul Odor after Cleansing No Yes, Due to Product Use -Bioengineered Tissue Yes Yes -Type of bioengineered Tissue Apligraf Apligraf -Expiration Date 08/19/18 08/25/18 -Product Lot Number [id number] -Percent Used 100 100 -Saline Lot Number [id number] -Topical Lidocaine (%) 4 4 -Bleeding Controlled with Pressure Pressure -Offloading No Yes -Type of Offloading Surgical Shoe -Treatment Response Procedure Procedure Tolerated Well Tolerated Well #21 Right Foot-Toes w/Metatarsal Head circumfrential -Time 10:51 10:10 -Correct Patient Yes Yes -Correct Side, Site, Position Yes Yes -Correct Procedure Yes Yes -Procedure Performed Yes Yes -Type of Procedure Debridement Debridement -Clinical Debridement Subcutaneous Subcutaneous -Post Debridement Size (cm) - Length 12.5 14.6 -Post Debridement Size (cm) - Width 6 6.9 -Post Debridement Size (cm) - Depth 0.3 0.1 -Total Square Cm 75.0 100.74 -Wound/Ulcer Outcome Not Healed Not Healed -Ulcer Cleansing Rinsed/ Rinsed/ Irrigated with Irrigated with Saline Saline -Foul Odor after Cleansing No Yes, Due to Product Use -Bioengineered Tissue Yes Yes -Type of bioengineered Tissue Apligraf Apligraf -Expiration Date 08/19/18 08/25/18 -Product Lot Number [id number] -Percent Used 100 100 -Saline Lot Number [id number] -Topical Lidocaine (%) 4 4 -Bleeding Controlled with Pressure Pressure -Offloading No Yes -Type of Offloading Surgical Shoe -Treatment Response Procedure Procedure Tolerated Well Tolerated Well Pain Scale: 0-10 Numeric Is Patient Pain Free? Yes Yes Yes 08/31/18 09:47 Wound Center Nurse 2 #23 R Post -Time -Correct Patient -Correct Side, Site, Position -Correct Procedure -Procedure Performed -Type of Procedure -Clinical Debridement -Post Debridement Size (cm) - Length -Post Debridement Size (cm) - Width -Post Debridement Size (cm) - Depth -Total Square Cm -Wound/Ulcer Outcome -Ulcer Cleansing -Foul Odor after Cleansing -Bioengineered Tissue -Type of bioengineered Tissue -Expiration Date -Product Lot Number -Percent Used -Saline Lot Number -Topical Lidocaine (%) -Bleeding Controlled with -Offloading -Type of Offloading -Treatment Response #22 left stump -Time 09:53 -Correct Patient Yes -Correct Side, Site, Position Yes -Correct Procedure Yes -Procedure Performed Yes -Type of Procedure Debridement -Clinical Debridement Subcutaneous -Post Debridement Size (cm) - Length 1.6 -Post Debridement Size (cm) - Width 6.1 -Post Debridement Size (cm) - Depth 0.1 -Total Square Cm 9.76 -Wound/Ulcer Outcome Amputation -Ulcer Cleansing Rinsed/ Irrigated with Saline -Foul Odor after Cleansing Yes, Due to Product Use -Bioengineered Tissue Yes -Type of bioengineered Tissue Apligraf -Expiration Date 09/02/18 -Product Lot Number [id number] -Percent Used 100 -Saline Lot Number [id number] -Topical Lidocaine (%) 4 -Injectable Lidocaine (%) -Bleeding Controlled with Pressure -Offloading No -Treatment Response Procedure Tolerated Well #13 R Med Heel -Time -Correct Patient -Correct Side, Site, Position -Correct Procedure -Procedure Performed -Type of Procedure -Clinical Debridement -Post Debridement Size (cm) - Length -Post Debridement Size (cm) - Width -Post Debridement Size (cm) - Depth -Total Square Cm -Wound/Ulcer Outcome -Ulcer Cleansing -Foul Odor after Cleansing -Bioengineered Tissue -Type of bioengineered Tissue -Expiration Date -Product Lot Number -Percent Used -Saline Lot Number -Topical Lidocaine (%) -Bleeding Controlled with -Offloading -Type of Offloading -Treatment Response #21 Right Foot-Toes w/Metatarsal Head circumfrential -Time -Correct Patient -Correct Side, Site, Position -Correct Procedure -Procedure Performed -Type of Procedure -Clinical Debridement -Post Debridement Size (cm) - Length -Post Debridement Size (cm) - Width -Post Debridement Size (cm) - Depth -Total Square Cm -Wound/Ulcer Outcome -Ulcer Cleansing -Foul Odor after Cleansing -Bioengineered Tissue -Type of bioengineered Tissue -Expiration Date -Product Lot Number -Percent Used -Saline Lot Number -Topical Lidocaine (%) -Bleeding Controlled with -Offloading -Type of Offloading -Treatment Response Pain Scale: 0-10 Numeric Is Patient Pain Free? Yes Wound debrided: lateral leg Laterality: Right Wound Grade/Stage: grade 1 Type of Debridement: Excisional debridement Anesthesia Used: 5% Lidocaine Gel Depth: in the subcutaneous layer Percentage of wound debrided: 100 Instrument Used: #15 blade Tissue Removed: fibrous, devitalized subcutaneous, biofilm, slough Severity: Fat Layer Exposed Amount of bleeding with debridement: Mild Bleeding Controlled with: Pressure Patient tolerated procedure well - Additional Wound Wound debrided: leg Laterality: Left Wound Grade/Stage: grade 1 Type of Debridement: Excisional debridement Anesthesia Used: 5% Lidocaine Gel Depth: in the subcutaneous layer Percentage of wound debrided: 100 Instrument Used: #15 blade Tissue Removed: fibrous, devitalized subcutaneous, biofilm, slough Severity: Fat Layer Exposed Amount of bleeding with debridement: Mild Bleeding Controlled with: Pressure Patient tolerated procedure: Patient tolerated procedure well Assessment/Plan Assessment: Right leg ulcer returned, grade 1. ulcer right forefoot. right heel ulcer muscle involved and exposed fascia without infection noted today (previous grade 3); s/p surgical debridement and application of advance wound care products. 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 Lymphedema. Chronic lower extremity edema and venous insufficiency. Morbid obesity. Type 2 diabetes uncontrolled with peripheral neuropathy. CKD. Hypertension. Malnutrition. Delayed wound healing. Nonadherence to treatment plan Plan: I reviewed and discussed his case debridement done as documented above in the clinical panel to the left limb this procedure was well tolerated. Apligraft, advance wound care product was applied according to standard protocol to the right leg site and the left below-knee amputation stump site. All the product was utilized. This was secured with wound veil and Steri-Strips. The indications, planned procedure, and anticipated healing time and management were discussed in detail. He was advised to leave the site clean dry and intact until follow-up visit; it is okay for [facility] living [facility] to change the outer secondary dressing if strikethrough drainage is noted. Verbal consent was obtained and he tolerated this very well. This is medically necessary to optimize timely healing. This is also chronic and separate site than the a for mentioned current Apligraf application sites and he is failed conventional therapy for over 6 months. Continue compression left with 3M2L. To avoid trauma and cold exposure to the right foot. He was re-referred to vascular surgeon Dr. Nixon who treated him for PAD and lymphedema. The current recommendation is to continue with strict compression with lymphedema pumps. Per patient, arterial duplex was performed during his last vascular surgery follow-up, and he appears to have continued perfusion to the right lower extremity and no vascular intervention is planned at this time. Continue protein suppplements and increased protein in diet. It is noted he has been completing hyperbaric oxygen therapy sessions and has done well. I also recommend a lymphedema clinic. He went approximately 3 years ago and found this to be very helpful. He no longer has his thigh-high compression garments that were arranged for him during this last session. [place] wrap order will be processed at this time for the right lower extremity for better edema control there is a lymphedema clinic in [place] and his information was sent over. They can only see him once he is d/c from home health; this is noted. Follow up in 1 week with at the wound healing center or call sooner if he has any questions or concerns.
== END 2018-09-04 23:59 ==
LOC: WC 09:15
PROVIDERS: Family Provider Family Medicine Geriatric Medicine; PCP Family Medicine Geriatric Medicine; Referring Provider Podiatrist; Visit Provider Podiatrist
DX: E11.621 Type 2 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with foot ulcer (principal); E11.42 Type 2 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with diabetic polyneuropathy; L97.822 Non-pressure chronic ulcer of other part of left lower leg with fat layer exposed; E11.22 Type 2 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with diabetic chronic kidney disease; N18.9 Chronic kidney disease, unspecified; T87.89 Other complications of amputation stump; Y83.9 Surgical procedure, unspecified as the cause of abnormal reaction of the patient, or of later complication, without mention of misadventure at the time of the procedure; L97.512 Non-pressure chronic ulcer of other part of right foot with fat layer exposed; Z71.3 Dietary counseling and surveillance; E66.01 Morbid (severe) obesity due to excess calories; R60.0 Localized edema; E11.65 Type 2 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with hyperglycemia; E11.51 Type 2 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with diabetic peripheral angiopathy without gangrene; I12.9 Hypertensive chronic kidney disease with stage 1 through stage 4 chronic kidney disease, or unspecified chronic kidney disease; I70.235 Atherosclerosis of native arteries of right leg with ulceration of other part of foot; I89.0 Lymphedema, not elsewhere classified; L97.412 Non-pressure chronic ulcer of right heel and midfoot with fat layer exposed; L97.812 Non-pressure chronic ulcer of other part of right lower leg with fat layer exposed
CPT/HCPCS: 15271; 15273; 15275; Q4101

== ENCOUNTER 2018-09-23 10:31 | Day surgery (SDC) | payer MEDICARE, MEDICAID, SELFPAY ==
[2018-09-15 13:58] VITALS: BMI 44.8
--- NOTE | 2018-09-23 | GASB_PTH ---
PATIENT: DEL BARRIOS LOC: EN U#:[id number] AGE/SX: 58/M ROOM: RE09/23/[address]: Dr. Kwasi Powell MD : 1960 BED: DIS: 09/23/2018 SPEC #: [id number] RECD: 09/23/18 13:38 STATUS: KAY DAMIAN #: [id number] KEYONNA: 09/23/18 00:[address]: Kwasi Powell DEPT: SURGICAL PATHOLOGY RECD BY: Newton King ENTERED: 09/23/18 13:38 SP TYPE: Gastric Bx OTHR DR: Dr. Arnie Bullock MD Tissues: A - Gastric mucous membrane B - Esophagus, NOS Procedures: Special Stain Group I Surgery Specimen Level IV GMS Stain (control) HEADER OPERATION: EGD ([facility] [place]) PRE-OP DIAGNOSIS: Anemia TISSUE SUBMITTED: A - Antral biopsy for H. pylori and pathology, B - Esophageal biopsy, rule out Jennifer MICROSCOPIC DIAGNOSIS A. Gastric antrum, biopsy: Mild chronic gastritis. B. Esophagus, biopsy: Acute esophagitis. Bacterial colonies. Positive for fungal organisms. See comment. AM:charito 09/26/18 COMMENT A. The results of immunohistochemistry for Helicobacter pylori will be reported separately ([id number]). B. GMS stain with matched control supports the above diagnosis and highlights fungal budding forms and hyphal forms consistent with Jennifer species. Clinical correlation is suggested. MICROSCOPIC DESCRIPTION Slides are reviewed. GROSS DESCRIPTION A - Received in fixative is one container labeled with the patient's name and designated antral biopsy. The specimen consists of two irregular fragments of light lim soft tissue that in aggregate measure 0.4 x 0.2 x 0.1 cm. The specimen is totally submitted in one cassette. B - Received in fixative is one container labeled with the patient's name and designated esophageal biopsy. The specimen consists of two irregular fragments of light lim soft tissue that in aggregate measure 0.6 x 0.2 x 0.1 cm. The specimen is totally submitted in one cassette. / SJ:charito 09/23/18 TC:2 CPT: 30627 x2, 98885
[2018-09-23 11:23] VITALS: BP 139/65; PULSE 88; RESP 18; TEMP 36.6; O2SAT 100; BMI 45.6
--- NOTE | 2018-09-23 11:30 | IMM_PTH ---
PATIENT: DEL BARRIOS LOC: EN U#:[id number] AGE/SX: 58/M ROOM: RE09/23/[address]: Dr. Kwasi Powell MD : 1960 BED: DIS: 09/23/2018 SPEC #: [id number] RECD: 09/23/18 14:51 STATUS: KAY REQ #: [id number] KEYONNA: 09/23/18 11:[address]: Kwasi Powell DEPT: IMMUNOHISTOCHEMISTRY RECD BY: Betina Cai ENTERED: 09/23/18 14:52 SP TYPE: IMMUNO OTHR DR: Dr. Arnie Bullock MD Tissues: A - Stomach, NOS Procedures: H Pylori (initial) PHYSICIAN & INSTITUTION [place] [address] SPECIMEN INFORMATION: Tissue Source: A - Antral biopsy Clinical Info: Anemia Specimen Number: [id number] CPT code: 02314 METHODOLOGY: Deparaffinized sections of prefer/formalin-fixed tissue or PAP/DQ stained slides are incubated with monoclonal/polyclonal antibodies/oligonucleotide probes. Localization is made via biotin free immunoperoxidase method. Appropriate controls are performed and reacted as expected. Results on target cell population are indicated in the following table: RESULTS: ANTIBODY / CLONE RESULT Block A H Pylori (polyclonal) negative These tests were developed and their performance characteristics determined by [facility]. They may not have been cleared or approved by the U.S. Food and Drug Administration. The FDA has determined that such clearance or approval is not necessary. INTERPRETATION: A. Antral biopsy: Negative for Helicobacter pylori organisms. AM:charito 09/26/18
[2018-09-23 11:50] LABS: Bedside Glucose 223 mg/dL (70-110)
--- NOTE | 2018-09-23 12:07 | OP.ENDO_ITS ---
09/23/2018 Arnie Bullock MD [address] [place] [address] Re : Upper GI endoscopy procedure for Corey Zamora Dear Dr. Bullock This procedure was performed on Sunday, September 23, 2018. My impressions and recommendations are as follows: Impressions : - Candidiasis esophagitis. Biopsied. - Gastritis. Biopsied. - The examination was otherwise normal. Recommendations : - Await pathology results. - Discharge patient to home. - Resume previous diet. - Continue present medications. My findings are described in the full procedure note, which is enclosed. If I can be of further assistance, please feel free to contact me at Doctor phone number(s): , Work: . Sincerely, Kwasi Powell MD 09/23/2018 12:07:13 PM This report has been signed electronically.
[2018-09-23 12:10] VITALS: BP 139/65; BP 146/65; PULSE 85; RESP 16; TEMP 36.3; O2SAT 95
[2018-09-23 12:15] VITALS: BP 139/65; BP 156/69; PULSE 85; RESP 16; O2SAT 97
[2018-09-23 12:20] VITALS: BP 139/65; BP 155/69; PULSE 85; RESP 16; O2SAT 94
[2018-09-23 12:25] VITALS: BP 139/65; BP 166/73; PULSE 86; RESP 16; TEMP 36.6; O2SAT 98
[2018-09-23 13:02] VITALS: BP 139/65
== END 2018-09-23 13:05 | disposition home or self-care (01) ==
LOC: EN 10:31 → AC 10:32
PROVIDERS: Family Provider Family Medicine Geriatric Medicine; PCP Family Medicine Geriatric Medicine; Referring Provider Family Medicine Geriatric Medicine; Visit Provider Surgery
PROC: 0DJ08ZZ Inspection of Upper Intestinal Tract, Via Natural or Artificial Opening Endoscopic (ICD-10-PCS; CPT 43235; principal; 2018-09-23 11:25)
DX: K29.50 Unspecified chronic gastritis without bleeding (principal); D50.9 Iron deficiency anemia, unspecified; B37.81 Candidal esophagitis; I73.9 Peripheral vascular disease, unspecified; E11.9 Type 2 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without complications; Z79.4 Long term (current) use of insulin; I12.9 Hypertensive chronic kidney disease with stage 1 through stage 4 chronic kidney disease, or unspecified chronic kidney disease; N18.9 Chronic kidney disease, unspecified; Z87.891 Personal history of nicotine dependence; K21.9 Gastro-esophageal reflux disease without esophagitis
CPT/HCPCS: 43239; 82962; 88305; 88312; 88342; J7120

== ENCOUNTER 2018-09-28 09:15 | Outpatient (RCR) | payer MEDICARE, MEDICAID, SELFPAY ==
[2018-09-05 00:48] VITALS: BP 141/61; PULSE 90; RESP 16; TEMP 36.2
[2018-09-07 09:28] VITALS: BP 119/59; PULSE 93; RESP 18; TEMP 36.4
--- NOTE | 2018-09-07 14:46 | PN.PCM_ITS ---
(1) Ulcer of right lower extremity with fat layer exposed Status: Chronic Current Visit: Yes Code(s): L97.912 - Non-pressure chronic ulcer of unspecified part of right lower leg with fat layer exposed (2) Ulcer of left lower extremity with fat layer exposed Status: Chronic Current Visit: Yes Code(s): L97.922 - Non-pressure chronic ulcer of unspecified part of left lower leg with fat layer exposed (3) Chronic ulcer of right foot with fat layer exposed Status: Chronic Current Visit: Yes Code(s): L97.512 - Non-pressure chronic ulcer of other part of right foot with fat layer exposed (4) Other specified peripheral vascular diseases Status: Chronic Current Visit: Yes Code(s): I73.89 - Other specified peripheral vascular diseases (5) Morbid obesity Status: Chronic Current Visit: Yes Code(s): E66.01 - Morbid (severe) obesity due to excess calories (6) Venous stasis dermatitis Status: Chronic Current Visit: Yes Code(s): I87.2 - Venous insufficiency (chronic) (peripheral) (7) BKA stump complication Status: Chronic Current Visit: Yes Code(s): T87.9 - Unspecified complications of amputation stump (8) Delayed wound healing Status: Chronic Current Visit: No Code(s): T14.8 - Other injury of unspecified body region (9) Malnutrition Status: Chronic Current Visit: No Code(s): E46 - Unspecified protein-calorie malnutrition (10) Hx of osteomyelitis Status: Chronic Current Visit: Yes Code(s): Z87.39 - Personal history of other diseases of the musculoskeletal system and connective tissue Comment: Left lower leg amputation. 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 Right toe ulcers. left stump ulcers. Right leg ulcer History of Wound: 58-year-old white male returns to clinic for follow-up of bilateral leg ulcers and right foot ulcers. He denies fever, chill, nausea, vomiting, loss of appetite. He had multiple advanced wound care product applications. He kept the Apligraf intact to the right and left lower extremities as advised. He presents in a wheelchair today. He denies odors or redness. Progress of Wound: Stable right toe and heel areas. Left stump site ulcer stable. stable right leg ulcer - Physical Exam Vital Signs Temp Pulse Resp BP 97.5 F L 93 18 119/59 L 09/07/18 09:28 09/07/18 09:28 09/07/18 09:28 09/07/18 09:28 General: Alert, Oriented x3, Cooperative HEENT: Atraumatic Extremities: No cyanosis, Capillary Refill Less than 3 Seconds, No Calf Tenderness - negative suzanne and bean right., Diminished Peripheral Pulses, Jose Carlos ma - bilateral lymphedema, - - left below knee amputation Skin: Ulcer/ Wound - no purlence, no odor, no infection. apligraft is intact and secured with wound veil to left stump and to right lateral leg. skin is hairless and atrophic Wound Measurements and Assessment WC - Nurse 1 - General Ulcer Measurement Start: 09/07/18 09:28 Freq: Status: Active Protocol: Activity Type Activity Date Activity User E-Sign Co-Sign Detail Recorded Client Recorded Date Recorded By Document 09/07/18 09:28 DV [id number] 09/07/18 09:39 DV 09/07/18 09:28 Wound Center Nurse 1 [Ulcer Assessment] #13 R Med Heel -Combined with other wound No -Current Size (cm) - Length 2.5 -Current Size (cm) - Width 2.3 -Current Size (cm) - Depth 0.2 -Total Square Cm 5.75 -Photo Taken No -Epithelialization None Present -Tunneling No -Undermining/Tunneling No -Circular Undermining No -Exudate Amt Small -Exudate Type Yellow/Green -Wound Margin Thickened -Granulation Amt Small (1-33%) -Granulation Quality N/A -Slough/Fibrin Yes -Necrosis Amt Large (67-100%) -Necrotic Tissue Type Adherent Slough -Structure Exposed None/Limited to Skin Breakdown -Texture (Martha-wound Skin Appearance) Assessed Scarring -Moisture (Martha-wound Skin Appearance Assessed ) Weeping -Color (Martha-wound Skin Appearance) Assessed Erythema -Temperature (Martha-wound Skin No Abnormality Appearance) (Pt Warm) -Foul Odor after Cleansing Yes -Anesthetic Used 4% Lidocaine Solution #21 Right Foot-Toes w/Metatarsal Head circumfrential -Combined with other wound No -Current Size (cm) - Length 13.7 -Current Size (cm) - Width 8.0 -Current Size (cm) - Depth 0.2 -Total Square Cm 109.60 -Photo Taken No -Epithelialization Small 1-33% -Tunneling No -Undermining/Tunneling No -Circular Undermining No -Exudate Amt Large -Exudate Type Serosanguineous -Granulation Amt None Present (0 %) -Granulation Quality N/A -Slough/Fibrin Yes -Necrosis Amt Large (67-100%) -Necrotic Tissue Type Adherent Slough -Structure Exposed None/Limited to Skin Breakdown -Texture (Martha-wound Skin Appearance) Assessed Scarring -Moisture (Martha-wound Skin Appearance Assessed ) Weeping -Color (Martha-wound Skin Appearance) Assessed Erythema -Temperature (Martha-wound Skin No Abnormality Appearance) (Pt Warm) -Ulcer Cleansing soap -Anesthetic Used 4% Lidocaine Solution [Edema Assessment] -Right Calf (cm) 36.3 -Right Ankle (cm) 28.6 -Left Calf (cm) 42.8 WC - Nurse 2 - General Ulcer CM Notes Start: 09/07/18 09:28 Freq: Status: Active Protocol: Activity Type Activity Date Activity User E-Sign Co-Sign Detail Recorded Client Recorded Date Recorded By Document 09/07/18 09:53 AN [id number] 09/07/18 09:58 AN 09/07/18 09:53 Wound Center Nurse 2 [Procedure/Treatment] #13 R Med Heel -Time 09:56 -Correct Patient Yes -Correct Side, Site, Position Yes -Correct Procedure Yes -Procedure Performed Yes -Type of Procedure Debridement -Clinical Debridement Subcutaneous -Post Debridement Size (cm) - Length 2.6 -Post Debridement Size (cm) - Width 2.4 -Post Debridement Size (cm) - Depth 0.2 -Total Square Cm 6.24 -Wound/Ulcer Outcome Not Healed -Foul Odor after Cleansing No -Bioengineered Tissue No -Bleeding Controlled with Pressure -Offloading No -Treatment Response Procedure Tolerated Well #21 Right Foot-Toes w/Metatarsal Head circumfrential -Time 09:57 -Correct Patient Yes -Correct Side, Site, Position Yes -Correct Procedure Yes -Procedure Performed Yes -Type of Procedure Debridement -Clinical Debridement Subcutaneous -Post Debridement Size (cm) - Length 13.8 -Post Debridement Size (cm) - Width 8.1 -Post Debridement Size (cm) - Depth 0.2 -Total Square Cm 111.78 -Wound/Ulcer Outcome Not Healed -Ulcer Cleansing Rinsed/ Irrigated with Saline -Foul Odor after Cleansing No -Bioengineered Tissue No -Bleeding Controlled with Pressure -Offloading No -Treatment Response Procedure Tolerated Well [See Physician Procedure note for Specifics] Pain Scale: 0-10 Numeric [Pain] -Is Patient Pain Free? Yes Musculoskeletal: No Tenderness to Palpation of Joints or Extremities, Muscle Wasting Neurological: - - lack of normal epicritic sensation via light touch Psych/Mental Status: Normal Affect, Appropriate Debridement Note Post-Debridement Measurements/Treatment WC - Nurse 2 - General Ulcer CM Notes Start: 09/07/18 09:28 Freq: Status: Active Protocol: Activity Type Activity Date Activity User E-Sign Co-Sign Detail Recorded Client Recorded Date Recorded By Document 09/07/18 09:53 AN [id number] 09/07/18 09:58 AN 09/07/18 09:53 Wound Center Nurse 2 #13 R Med Heel -Time 09:56 -Correct Patient Yes -Correct Side, Site, Position Yes -Correct Procedure Yes -Procedure Performed Yes -Type of Procedure Debridement -Clinical Debridement Subcutaneous -Post Debridement Size (cm) - Length 2.6 -Post Debridement Size (cm) - Width 2.4 -Post Debridement Size (cm) - Depth 0.2 -Total Square Cm 6.24 -Wound/Ulcer Outcome Not Healed -Foul Odor after Cleansing No -Bioengineered Tissue No -Bleeding Controlled with Pressure -Offloading No -Treatment Response Procedure Tolerated Well #21 Right Foot-Toes w/Metatarsal Head circumfrential -Time 09:57 -Correct Patient Yes -Correct Side, Site, Position Yes -Correct Procedure Yes -Procedure Performed Yes -Type of Procedure Debridement -Clinical Debridement Subcutaneous -Post Debridement Size (cm) - Length 13.8 -Post Debridement Size (cm) - Width 8.1 -Post Debridement Size (cm) - Depth 0.2 -Total Square Cm 111.78 -Wound/Ulcer Outcome Not Healed -Ulcer Cleansing Rinsed/ Irrigated with Saline -Foul Odor after Cleansing No -Bioengineered Tissue No -Bleeding Controlled with Pressure -Offloading No -Treatment Response Procedure Tolerated Well Pain Scale: 0-10 Numeric Is Patient Pain Free? Yes Wound debrided: toe cluster Laterality: Right - g Wound Grade/Stage: grade 1 Type of Debridement: Excisional debridement Anesthesia Used: 5% Lidocaine Gel Depth: in the subcutaneous layer Percentage of wound debrided: 20 Instrument Used: #15 blade Tissue Removed: fibrous, devitalized subcutaneous, biofilm, slough Severity: Fat Layer Exposed Amount of bleeding with debridement: Mild Bleeding Controlled with: Pressure Patient tolerated procedure well - Additional Wound Wound debrided: heel Laterality: Right Wound Grade/Stage: grade 3 Type of Debridement: Excisional debridement Anesthesia Used: 5% Lidocaine Gel Depth: in the subcutaneous layer Percentage of wound debrided: 20 Instrument Used: #15 blade Tissue Removed: fibrous, devitalized subcutaneous, biofilm, slough Severity: Fat Layer Exposed Amount of bleeding with debridement: Mild Bleeding Controlled with: Pressure Patient tolerated procedure: Patient tolerated procedure well Assessment/Plan Active Problems Other specified peripheral vascular diseases (Chronic) Chronic ulcer of right foot with fat layer exposed (Chronic) Ulcer of left lower extremity with fat layer exposed (Chronic) Morbid obesity (Chronic) Venous stasis dermatitis (Chronic) BKA stump complication (Chronic) Hx of osteomyelitis (Chronic) Left lower leg amputation. Ulcer of right lower extremity with fat layer exposed (Chronic) Assessment: Right leg ulcer returned, grade 1. ulcer right forefoot. right heel ulcer muscle involved and exposed fascia without infection noted today (previous grade 3); s/p surgical debridement and application of advance wound care products. 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 Lymphedema. Chronic lower extremity edema and venous insufficiency. Morbid obesity. Type 2 diabetes uncontrolled with peripheral neuropathy. CKD. Hypertension. Malnutrition. Delayed wound healing. Nonadherence to treatment plan Plan: I reviewed and discussed his case. debridement done as documented above in the clinical panel to the right toe region and right heel. Apligraft, advance wound care product was left intact to left stump and right lateral leg for one additional week to allow incorporation. This was secured with wound veil and Steri-Strips. The indications, planned procedure, and anticipated healing time and management were discussed in detail. He was advised to leave the site clean dry and intact until follow-up visit; it is okay for intermediate health to change the outer secondary dressing if strikethrough drainage is noted. Continue compression left with 3M2L. To avoid trauma and cold exposure to the right foot. He was re-referred to vascular surgeon Dr. Nixon who treated him for PAD and lymphedema. The current recommendation is to continue with strict compression with lymphedema pumps. Per patient, arterial duplex was performed during his last vascular surgery follow-up, and he appears to have continued perfusion to the right lower extremity and no vascular intervention is planned at this time. Continue protein suppplements and increased protein in diet. It is noted he did well with hyperbaric oxygen therapy sessions. I also recommend a lymphedema clinic. He went approximately 3 years ago and found this to be very helpful. He no longer has his thigh-high compression garments that were arranged for him during this last session. Farrow wrap order will be processed at this time for the right lower extremity for better edema control there is a lymphedema clinic in [place] and his information was sent over. They can only see him once he is d/c from home health; this is noted. Apligraft application will be considered again next week. Fibricol was appled to right heel and toe ulcer sites.The skin islands are noted; therefore only 20% of the ulcer site was debrided. Follow up in 1 week with at the wound healing center or call sooner if he has any questions or concerns.
[2018-09-14 09:52] VITALS: BP 144/74; PULSE 90; RESP 18; TEMP 36.6
--- NOTE | 2018-09-14 10:43 | PN.PCM_ITS ---
(1) Chronic ulcer of right foot with fat layer exposed Status: Chronic Current Visit: Yes Code(s): L97.512 - Non-pressure chronic ulcer of other part of right foot with fat layer exposed (2) Ulcer of left lower extremity with fat layer exposed Status: Chronic Current Visit: Yes Code(s): L97.922 - Non-pressure chronic ulcer of unspecified part of left lower leg with fat layer exposed (3) Ulcer of right lower extremity with fat layer exposed Status: Resolved Current Visit: Yes Code(s): L97.912 - Non-pressure chronic ulcer of unspecified part of right lower leg with fat layer exposed (4) Type 2 diabetes mellitus with diabetic polyneuropathy Status: Chronic Current Visit: Yes Code(s): E11.42 - Type 2 diabetes mellitus with diabetic polyneuropathy (5) Other specified peripheral vascular diseases Status: Chronic Current Visit: Yes Code(s): I73.89 - Other specified peripheral vascular diseases (6) Morbid obesity Status: Chronic Current Visit: Yes Code(s): E66.01 - Morbid (severe) obesity due to excess calories (7) Venous stasis dermatitis Status: Chronic Current Visit: Yes Code(s): I87.2 - Venous insufficiency (chronic) (peripheral) (8) BKA stump complication Status: Chronic Current Visit: Yes Code(s): T87.9 - Unspecified complications of amputation stump (9) Delayed wound healing Status: Chronic Current Visit: Yes Code(s): T14.8 - Other injury of unspecified body region (10) Malnutrition Status: Chronic Current Visit: Yes Code(s): E46 - Unspecified protein- calorie malnutrition (11) Lymphedema Status: Chronic Current Visit: Yes Code(s): I89.0 - Lymphedema, not elsewhere classified Type of Wound Date of Service: 09/14/18 Chief Complaint: 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 Right toe ulcers. left stump ulcers. Right leg ulcer History of Wound: 58-year-old white male returns to clinic for follow-up of bilateral leg ulcers and right foot ulcers. He denies fever, chill, nausea, vomiting, loss of appetite. He had multiple advanced wound care product applications. He presents in a wheelchair today. He denies odors or redness. He relates he tries to keep pressure off of his left amputation stump site. He places a milk crate on the floor at home with the pillow on top of it and presses his stump directly into the site while he is sitting. Progress of Wound: Stable right toe and heel areas. Left stump site ulcer stable. healed right leg ulcer - Physical Exam Vital Signs Temp Pulse Resp BP 98 F 90 18 144/74 H 09/14/18 09:52 09/14/18 09:52 09/14/18 09:52 09/14/18 09:52 General: Alert, Oriented x3, Cooperative HEENT: Atraumatic Extremities: No cyanosis, No edema, Capillary Refill Less than 3 Seconds, No Calf Tenderness - Negative Harry and Badillo sign right., Diminished Peripheral Pulses, Edema, - - Left below-knee amputation Skin: Ulcer/ Wound - No purulence, erythema, streaking, odor, or infection. Peripheral skin is hairless and atrophic. There is minor maceration interdigitally., - - Lymphedema with skin invagination and duration is continued to bilateral lower extremities. There is worsening status on the left below- knee amputation stump site and the ulcer bed is 100% granular and beefy in appearance. The right leg ulcer site has healed and there is full e pithelialization Wound Measurements and Assessment WC - Nurse 1 - General Ulcer Measurement Start: 09/07/18 09:28 Freq: Status: Active Protocol: Activity Type Activity Date Activity User E-Sign Co-Sign Detail Recorded Client Recorded Date Recorded By Document 09/14/18 09:52 DL [id number] 09/14/18 10:17 DL 09/14/18 09:52 Wound Center Nurse 1 [Ulcer Assessment] #22 left stump -Current Size (cm) - Length 9.5 -Current Size (cm) - Width 12.5 -Current Size (cm) - Depth 0.1 -Total Square Cm 118.75 -Photo Taken No -Exudate Amt Large -Exudate Type Serosanguineous -Wound Margin Indistinct, Non -Visible -Granulation Amt Large (67-100%) -Granulation Quality Red -Necrosis Amt Small (1-33%) -Necrotic Tissue Type Adherent Slough -Structure Exposed N/A -Texture (Martha-wound Skin Appearance) Localized Edema Scarring -Moisture (Martha-wound Skin Appearance Maceration ) -Color (Martha-wound Skin Appearance) Hemosiderin Staining -Temperature (Martha-wound Skin No Abnormality Appearance) (Pt Warm) -Tenderness on Palpation (Martha-wound No Skin Appearance) -Ulcer Cleansing Wound Cleanser -Foul Odor after Cleansing No -Anesthetic Used 4% Lidocaine Solution #13 R Med Heel -Current Size (cm) - Length 2.6 -Current Size (cm) - Width 2.1 -Current Size (cm) - Depth 0.1 -Total Square Cm 5.46 -Photo Taken No -Epithelialization Small 1-33% -Exudate Amt Small -Exudate Type Serosanguineous -Wound Margin Thickened -Granulation Amt Medium (34-66%) -Granulation Quality [place] -Necrosis Amt Medium (34-66%) -Necrotic Tissue Type Adherent Slough -Structure Exposed N/A -Texture (Martha-wound Skin Appearance) Scarring -Moisture (Martha-wound Skin Appearance Dry/Scaly ) -Color (Martha-wound Skin Appearance) Hemosiderin Staining -Temperature (Martha-wound Skin No Abnormality Appearance) (Pt Warm) -Tenderness on Palpation (Martha-wound No Skin Appearance) -Ulcer Cleansing Wound Cleanser -Foul Odor after Cleansing No -Anesthetic Used 4% Lidocaine Solution #21 Right Foot-Toes w/Metatarsal Head circumfrential -Current Size (cm) - Length 14 -Current Size (cm) - Width 9 -Current Size (cm) - Depth 0.1 -Total Square Cm 126 -Photo Taken No -Exudate Amt Large -Exudate Type Yellow/Green -Wound Margin Indistinct, Non -Visible -Granulation Amt Medium (34-66%) -Granulation Quality [place] Red -Necrosis Amt Medium (34-66%) -Necrotic Tissue Type Adherent Slough -Structure Exposed N/A -Texture (Martha-wound Skin Appearance) Localized Edema Scarring -Moisture (Martha-wound Skin Appearance Maceration ) -Color (Martha-wound Skin Appearance) Hemosiderin Staining -Temperature (Martha-wound Skin No Abnormality Appearance) (Pt Warm) -Tenderness on Palpation (Martha-wound No Skin Appearance) -Ulcer Cleansing Wound Cleanser -Foul Odor after Cleansing No -Anesthetic Used 4% Lidocaine Solution [Edema Assessment] -Right Calf (cm) 36.5 -Right Ankle (cm) 29 -Left Calf (cm) 43 WC - Nurse 2 - General Ulcer CM Notes Start: 09/07/18 09:28 Freq: Status: Active Protocol: Activity Type Activity Date Activity User E-Sign Co-Sign Detail Recorded Client Recorded Date Recorded By Document 09/14/18 10:28 DL [id number] 09/14/18 10:41 DL 09/14/18 10:28 Wound Center Nurse 2 [Procedure/Treatment] #22 left stump -Time 10:32 -Correct Patient Yes -Correct Side, Site, Position Yes -Correct Procedure Yes -Procedure Performed Yes -Type of Procedure Debridement -Clinical Debridement Subcutaneous -Post Debridement Size (cm) - Length 9.6 -Post Debridement Size (cm) - Width 12.6 -Post Debridement Size (cm) - Depth 0.1 -Total Square Cm 120.96 -Wound/Ulcer Outcome Amputation -Ulcer Cleansing Rinsed/ Irrigated with Saline -Foul Odor after Cleansing No -Bioengineered Tissue Yes -Type of bioengineered Tissue Apligraf -Expiration Date 09/22/18 -Product Lot Number [id number] -Percent Used 50 -Saline Lot Number [id number] -Topical Lidocaine (%) 4 -Bleeding Controlled with Pressure -Treatment Response Procedure Tolerated Well #13 R Med Heel -Time 10:33 -Correct Patient Yes -Correct Side, Site, Position Yes -Correct Procedure Yes -Procedure Performed Yes -Type of Procedure Debridement -Clinical Debridement Subcutaneous -Post Debridement Size (cm) - Length 2.7 -Post Debridement Size (cm) - Width 2.2 -Post Debridement Size (cm) - Depth 0.1 -Total Square Cm 5.94 -Wound/Ulcer Outcome Not Healed -Ulcer Cleansing Rinsed/ Irrigated with Saline -Foul Odor after Cleansing No -Bioengineered Tissue Yes -Type of bioengineered Tissue Apligraf -Expiration Date 09/22/18 -Product Lot Number [id number] -Percent Used 25 -Saline Lot Number [id number] -Topical Lidocaine (%) 4 -Bleeding Controlled with Pressure -Offloading No -Treatment Response Procedure Tolerated Well #21 Right Foot-Toes w/Metatarsal Head circumfrential -Time 10:34 -Correct Patient Yes -Correct Side, Site, Position Yes -Correct Procedure Yes -Procedure Performed Yes -Type of Procedure Debridement -Clinical Debridement Subcutaneous -Post Debridement Size (cm) - Length 14.1 -Post Debridement Size (cm) - Width 9.1 -Post Debridement Size (cm) - Depth 0.1 -Total Square Cm 128.31 -Wound/Ulcer Outcome Not Healed -Ulcer Cleansing Wound Cleanser -Foul Odor after Cleansing No -Bioengineered Tissue Yes -Type of bioengineered Tissue Apligraf -Expiration Date 09/22/18 -Product Lot Number [id number] -Percent Used 25 -Saline Lot Number [id number] -Topical Lidocaine (%) 4 -Bleeding Controlled with Pressure -Offloading No -Treatment Response Procedure Tolerated Well [See Physician Procedure note for Specifics] Pain Scale: 0-10 Numeric [Pain] -Is Patient Pain Free? Yes Musculoskeletal: No Tenderness to Palpation of Joints or Extremities, Muscle Wasting Neurological: - - Lack of normal epicritic sensation light touch consistent with neuropathy bilateral lower extremities Psych/Mental Status: Normal Affect, Appropriate Debridement Note Post-Debridement Measurements/Treatment WC - Nurse 2 - General Ulcer CM Notes Start: 09/07/18 09:28 Freq: Status: Active Protocol: Activity Type Activity Date Activity User E-Sign Co-Sign Detail Recorded Client Recorded Date Recorded By Document 09/07/18 09:53 AN [id number] 09/07/18 09:58 AN Document 09/14/18 10:28 DL [id number] 09/14/18 10:41 DL 09/07/18 09/14/18 09:53 10:28 Wound Center Nurse 2 #22 left stump -Time 10:32 -Correct Patient Yes -Correct Side, Site, Position Yes -Correct Procedure Yes -Procedure Performed Yes -Type of Procedure Debridement -Clinical Debridement Subcutaneous -Post Debridement Size (cm) - Length 9.6 -Post Debridement Size (cm) - Width 12.6 -Post Debridement Size (cm) - Depth 0.1 -Total Square Cm 120.96 -Wound/Ulcer Outcome Amputation -Ulcer Cleansing Rinsed/ Irrigated with Saline -Foul Odor after Cleansing No -Bioengineered Tissue Yes -Type of bioengineered Tissue Apligraf -Expiration Date 09/22/18 -Product Lot Number [id number] -Percent Used 50 -Saline Lot Number [id number] -Topical Lidocaine (%) 4 -Bleeding Controlled with Pressure -Treatment Response Procedure Tolerated Well #13 R Med Heel -Time 09:56 10:33 -Correct Patient Yes Yes -Correct Side, Site, Position Yes Yes -Correct Procedure Yes Yes -Procedure Performed Yes Yes -Type of Procedure Debridement Debridement -Clinical Debridement Subcutaneous Subcutaneous -Post Debridement Size (cm) - Length 2.6 2.7 -Post Debridement Size (cm) - Width 2.4 2.2 -Post Debridement Size (cm) - Depth 0.2 0.1 -Total Square Cm 6.24 5.94 -Wound/Ulcer Outcome Not Healed Not Healed -Ulcer Cleansing Rinsed/ Irrigated with Saline -Foul Odor after Cleansing No No -Bioengineered Tissue No Yes -Type of bioengineered Tissue Apligraf -Expiration Date 09/22/18 -Product Lot Number [id number] -Percent Used 25 -Saline Lot Number [id number] -Topical Lidocaine (%) 4 -Bleeding Controlled with Pressure Pressure -Offloading No No -Treatment Response Procedure Procedure Tolerated Well Tolerated Well #21 Right Foot-Toes w/Metatarsal Head circumfrential -Time 09:57 10:34 -Correct Patient Yes Yes -Correct Side, Site, Position Yes Yes -Correct Procedure Yes Yes -Procedure Performed Yes Yes -Type of Procedure Debridement Debridement -Clinical Debridement Subcutaneous Subcutaneous -Post Debridement Size (cm) - Length 13.8 14.1 -Post Debridement Size (cm) - Width 8.1 9.1 -Post Debridement Size (cm) - Depth 0.2 0.1 -Total Square Cm 111.78 128.31 -Wound/Ulcer Outcome Not Healed Not Healed -Ulcer Cleansing Rinsed/ Wound Cleanser Irrigated with Saline -Foul Odor after Cleansing No No -Bioengineered Tissue No Yes -Type of bioengineered Tissue Apligraf -Expiration Date 09/22/18 -Product Lot Number [id number] -Percent Used 25 -Saline Lot Number [id number] -Topical Lidocaine (%) 4 -Bleeding Controlled with Pressure Pressure -Offloading No No -Treatment Response Procedure Procedure Tolerated Well Tolerated Well Pain Scale: 0-10 Numeric Is Patient Pain Free? Yes Yes Wound debrided: heel Laterality: Right Wound Grade/Stage: grade 3 Type of Debridement: Excisional debridement Anesthesia Used: 5% Lidocaine Gel Depth: in the subcutaneous layer Percentage of wound debrided: 100 Instrument Used: #15 blade Tissue Removed: fibrous, devitalized subcutaneous, biofilm, slough Severity: Fat Layer Exposed Amount of bleeding with debridement: Mild Bleeding Controlled with: Pressure Patient tolerated procedure well - Additional Wound Wound debrided: toes Laterality: Right Wound Grade/Stage: grade 1 Type of Debridement: Excisional debridement Anesthesia Used: 5% Lidocaine Gel Depth: in the subcutaneous layer Percentage of wound debrided: 100 Instrument Used: #15 blade Tissue Removed: fibrous, devitalized subcutaneous, biofilm, slough Severity: Fat Layer Exposed Amount of bleeding with debridement: Mild Bleeding Controlled with: Pressure Patient tolerated procedure: Patient tolerated procedure well - Additional Wound Wound debrided: leg stump site Laterality: Left Wound Grade/Stage: grade 1 Type of Debridement: Excisional debridement Anesthesia Used: 5% Lidocaine Gel Depth: in the subcutaneous layer Percentage of wound debrided: 100 Instrument Used: #15 blade Tissue Removed: fibrous, devitalized subcutaneous, biofilm, slough Severity: Fat Layer Exposed Amount of bleeding with debridement: Mild Bleeding Controlled with: Pressure Patient tolerated procedure: Patient tolerated procedure well Assessment/Plan Active Problems Other specified peripheral vascular diseases (Chronic) Lymphedema (Chronic) Chronic ulcer of right foot with fat layer exposed (Chronic) Ulcer of left lower extremity with fat layer exposed (Chronic) Morbid obesity (Chronic) Venous stasis dermatitis (Chronic) BKA stump complication (Chronic) Hx of osteomyelitis (Chronic) Left lower leg amputation. Type 2 diabetes mellitus with diabetic polyneuropathy (Chronic) Delayed wound healing (Chronic) Malnutrition (Chronic) Assessment: Right leg ulcer healed today. ulcer right forefoot. right heel ulcer muscle involved and exposed fascia without infection noted today (previous grade 3); s/p surgical debridement and application of advance wound care products. Left below-knee amputation with fat tissue exposed -worsening status, no infection. Lymphedema. Chronic lower extremity edema and venous insufficiency. Morbid obesity. Type 2 diabetes uncontrolled with peripheral neuropathy. CKD. Hypertension. Malnutrition. Delayed wound healing. Nonadherence to treatment plan Plan: I reviewed and discussed his case. Debridement done as documented above in the clinical panel to the right toe region and right heel. Apligraft, advance wound care product was left intact to left stump and right foot ulcer sites. It is noted that the right leg ulcer site has healed and no dressing is required. The applied bilateral Apligraf were secured with wound veil and Steri-Strips. The indications, planned procedure, and anticipated healing time and management were discussed in detail. He was advised to leave the site clean dry and intact until follow-up visit; it is okay for group home health to change the outer secondary dressing if strikethrough drainage is noted. Continue compression left with 3M2L. To avoid trauma and cold exposure to the right foot. He was re-referred to vascular surgeon Dr. Nixon who treated him for PAD and lymphedema. The current recommendation is to continue with strict compression with lymphedema pumps. Per patient, arterial duplex was performed during his last vascular surgery follow-up, and he appears to have continued perfusion to the right lower extremity and no vascular intervention is planned at this time. Continue protein suppplements and increased protein in diet. It is noted he did well with hyperbaric oxygen therapy sessions. I also recommend a lymphedema clinic. He went approximately 3 years ago and found this to be very helpful. He no longer has his thigh-high compression garments that were arranged for him during this last session. [place] wrap order will be processed at this time for the right lower extremity for better edema control there is a lymphedema clinic in [place] and his information was sent over. They can only see him once he is d/c from home health; this is noted. To keep pressure off of his left below- knee amputation stump site. He was educated again that placing the stump site directly on a pillow and create is not offloading. He is at risk for continued limb loss and due to his condition and he understands. Follow up in 1 week with at the wound healing center or call sooner if he has any questions or concerns.
[2018-09-21 09:24] VITALS: BP 152/64; PULSE 91; RESP 18; TEMP 36.6
--- NOTE | 2018-09-21 10:53 | PN.PCM_ITS ---
(1) Chronic ulcer of right foot with fat layer exposed Status: Chronic Code(s): L97.512 - Non-pressure chronic ulcer of other part of right foot with fat layer exposed (2) Ulcer of left lower extremity with fat layer exposed Status: Chronic Code(s): L97.922 - Non-pressure chronic ulcer of unspecified part of left lower leg with fat layer exposed (3) Type 2 diabetes mellitus with diabetic polyneuropathy Status: Chronic Code(s): E11.42 - Type 2 diabetes mellitus with diabetic polyneuropathy (4) Other specified peripheral vascular diseases Status: Chronic Code(s): I73.89 - Other specified peripheral vascular diseases (5) Morbid obesity Status: Chronic Code(s): E66.01 - Morbid (severe) obesity due to excess calories (6) Venous stasis dermatitis Status: Chronic Code(s): I87.2 - Venous insufficiency (chronic) (peripheral) (7) BKA stump complication Status: Chronic Code(s): T87.9 - Unspecified complications of amputation stump (8) Delayed wound healing Status: Chronic Code(s): T14.8 - Other injury of unspecified body region (9) Malnutrition Status: Chronic Code(s): E46 - Unspecified protein-calorie malnutrition (10) Lymphedema Status: Chronic Code(s): I89.0 - Lymphedema, not elsewhere classified Type of Wound Date of Service: 09/21/18 Chief Complaint: 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 Right toe ulcers. left stump ulcers. Right leg ulcer History of Wound: 58-year-old white male returns to clinic for follow-up of bilateral leg ulcers and right foot ulcers. He denies fever, chill, nausea, vomiting, loss of appetite. He had multiple advanced wound care product applications. He presents in a wheelchair today. He denies redness. There is an odor and really relates he is unable to perform proper hygiene due to difficulty reaching various body parts. Progress of Wound: Stable right toe and heel areas. Left stump site ulcer stable - Physical Exam Vital Signs Temp Pulse Resp BP 98 F 91 18 152/64 H 09/21/18 09:24 09/21/18 09:24 09/21/18 09:24 09/21/18 09:24 General: Alert, Oriented x3, Cooperative HEENT: Atraumatic Extremities: No cyanosis, Capillary Refill Less than 3 Seconds - All digits right foot and 2 left below-knee amputation stump site, No Calf Tenderness - Right, Diminished Peripheral Pulses, Edema - Lymphedema and moderate bilateral lower extremity edema Skin: Ulcer/ Wound - No purulence on expression, eschar, proximal streaking or erythema. The peripheral skin is hairless and atrophic. There is maceration and some devitalized tissue in the interdigital aspect of the right lower extremity and there is an odor. Wound Measurements and Assessment WC - Nurse 1 - General Ulcer Measurement Start: 09/07/18 09:28 Freq: Status: Active Protocol: Activity Type Activity Date Activity User E-Sign Co-Sign Detail Recorded Client Recorded Date Recorded By Document 09/21/18 09:24 DL [id number] 09/21/18 09:37 DL 09/21/18 09:24 Wound Center Nurse 1 [Ulcer Assessment] #22 left stump -Current Size (cm) - Length 0.1 -Current Size (cm) - Width 0.1 -Current Size (cm) - Depth 0.1 -Total Square Cm 0.01 -Photo Taken No -Exudate Amt Large -Exudate Type Serosanguineous -Wound Margin Indistinct, Non -Visible -Granulation Amt Medium (34-66%) -Granulation Quality Wishram -Necrosis Amt Medium (34-66%) -Necrotic Tissue Type Adherent Slough -Structure Exposed N/A -Texture (Martha-wound Skin Appearance) Localized Edema Scarring -Moisture (Martha-wound Skin Appearance Maceration ) -Color (Martha-wound Skin Appearance) Hemosiderin Staining -Temperature (Martha-wound Skin No Abnormality Appearance) (Pt Warm) -Tenderness on Palpation (Martha-wound No Skin Appearance) -Ulcer Cleansing Wound Cleanser -Foul Odor after Cleansing No #13 R Med Heel -Current Size (cm) - Length 0.1 -Current Size (cm) - Width 0.1 -Current Size (cm) - Depth 0.1 -Total Square Cm 0.01 -Photo Taken No -Exudate Amt Small -Exudate Type Serosanguineous -Wound Margin Thickened -Structure Exposed N/A -Texture (Martha-wound Skin Appearance) Callus Scarring -Moisture (Martha-wound Skin Appearance No Abnormality ) -Color (Martha-wound Skin Appearance) Hemosiderin Staining -Temperature (Martha-wound Skin No Abnormality Appearance) (Pt Warm) -Tenderness on Palpation (Martha-wound No Skin Appearance) -Ulcer Cleansing Wound Cleanser -Foul Odor after Cleansing No #21 Right Foot-Toes w/Metatarsal Head circumfrential -Current Size (cm) - Length 0.1 -Current Size (cm) - Width 0.1 -Current Size (cm) - Depth 0.1 -Total Square Cm 0.01 -Photo Taken No -Exudate Amt Large -Exudate Type Serosanguineous -Wound Margin Indistinct, Non -Visible -Granulation Amt Medium (34-66%) -Granulation Quality Wishram -Necrosis Amt Medium (34-66%) -Necrotic Tissue Type Adherent Slough -Structure Exposed N/A -Texture (Martha-wound Skin Appearance) Localized Edema Scarring -Moisture (Martha-wound Skin Appearance Maceration ) Weeping -Color (Martha-wound Skin Appearance) Hemosiderin Staining -Temperature (Martha-wound Skin No Abnormality Appearance) (Pt Warm) -Tenderness on Palpation (Martha-wound No Skin Appearance) -Ulcer Cleansing Wound Cleanser -Foul Odor after Cleansing No [Edema Assessment] -Right Calf (cm) 35.5 -Right Ankle (cm) 29 -Right Foot (cm) 44.5 Musculoskeletal: No Tenderness to Palpation of Joints or Extremities, Muscle Wasting, - Neurological: - - Lack of normal epicritic sensation light touch consistent with neuropathy right lower extremity and left stump site Psych/Mental Status: Normal Affect, Appropriate Debridement Note Post-Debridement Measurements/Treatment WC - Nurse 2 - General Ulcer CM Notes Start: 09/07/18 09:28 Freq: Status: Active Protocol: Activity Type Activity Date Activity User E-Sign Co-Sign Detail Recorded Client Recorded Date Recorded By Document 09/07/18 09:53 AN [id number] 09/07/18 09:58 AN Document 09/14/18 10:28 DL [id number] 09/14/18 10:41 DL 09/07/18 09/14/18 09:53 10:28 Wound Center Nurse 2 #22 left stump -Time 10:32 -Correct Patient Yes -Correct Side, Site, Position Yes -Correct Procedure Yes -Procedure Performed Yes -Type of Procedure Debridement -Clinical Debridement Subcutaneous -Post Debridement Size (cm) - Length 9.6 -Post Debridement Size (cm) - Width 12.6 -Post Debridement Size (cm) - Depth 0.1 -Total Square Cm 120.96 -Wound/Ulcer Outcome Amputation -Ulcer Cleansing Rinsed/ Irrigated with Saline -Foul Odor after Cleansing No -Bioengineered Tissue Yes -Type of bioengineered Tissue Apligraf -Expiration Date 09/22/18 -Product Lot Number [id number] -Percent Used 50 -Saline Lot Number [id number] -Topical Lidocaine (%) 4 -Bleeding Controlled with Pressure -Treatment Response Procedure Tolerated Well #13 R Med Heel -Time 09:56 10:33 -Correct Patient Yes Yes -Correct Side, Site, Position Yes Yes -Correct Procedure Yes Yes -Procedure Performed Yes Yes -Type of Procedure Debridement Debridement -Clinical Debridement Subcutaneous Subcutaneous -Post Debridement Size (cm) - Length 2.6 2.7 -Post Debridement Size (cm) - Width 2.4 2.2 -Post Debridement Size (cm) - Depth 0.2 0.1 -Total Square Cm 6.24 5.94 -Wound/Ulcer Outcome Not Healed Not Healed -Ulcer Cleansing Rinsed/ Irrigated with Saline -Foul Odor after Cleansing No No -Bioengineered Tissue No Yes -Type of bioengineered Tissue Apligraf -Expiration Date 09/22/18 -Product Lot Number [id number] -Percent Used 25 -Saline Lot Number [id number] -Topical Lidocaine (%) 4 -Bleeding Controlled with Pressure Pressure -Offloading No No -Treatment Response Procedure Procedure Tolerated Well Tolerated Well #21 Right Foot-Toes w/Metatarsal Head circumfrential -Time 09:57 10:34 -Correct Patient Yes Yes -Correct Side, Site, Position Yes Yes -Correct Procedure Yes Yes -Procedure Performed Yes Yes -Type of Procedure Debridement Debridement -Clinical Debridement Subcutaneous Subcutaneous -Post Debridement Size (cm) - Length 13.8 14.1 -Post Debridement Size (cm) - Width 8.1 9.1 -Post Debridement Size (cm) - Depth 0.2 0.1 -Total Square Cm 111.78 128.31 -Wound/Ulcer Outcome Not Healed Not Healed -Ulcer Cleansing Rinsed/ Wound Cleanser Irrigated with Saline -Foul Odor after Cleansing No No -Bioengineered Tissue No Yes -Type of bioengineered Tissue Apligraf -Expiration Date 09/22/18 -Product Lot Number [id number] -Percent Used 25 -Saline Lot Number [id number] -Topical Lidocaine (%) 4 -Bleeding Controlled with Pressure Pressure -Offloading No No -Treatment Response Procedure Procedure Tolerated Well Tolerated Well Pain Scale: 0-10 Numeric Is Patient Pain Free? Yes Yes Wound debrided: toe cluster Laterality: Right Wound Grade/Stage: grade 1 Type of Debridement: Excisional debridement Anesthesia Used: 5% Lidocaine Gel Depth: in the subcutaneous layer Percentage of wound debrided: 100 Instrument Used: #15 blade Tissue Removed: fibrous, devitalized subcutaneous, biofilm, slough Severity: Fat Layer Exposed Amount of bleeding with debridement: Mild Bleeding Controlled with: Pressure Patient tolerated procedure well - Additional Wound Wound debrided: right heel and left stump site; appligrafts left intact; will consider 1 wk Assessment/Plan Assessment: ulcer right forefoot with devitalized status and maceration odor. right heel ulcer muscle involved and exposed fascia without infection noted today (previous grade 3); epi fix remains intact. Left below-knee amputation with fat tissue exposed -epi fix remains intact. Lymphedema. Chronic lower extremity edema and venous insufficiency. Morbid obesity. Type 2 diabetes uncontrolled with peripheral neuropathy. CKD. Hypertension. Malnutrition. Delayed wound healing. Nonadherence to treatment plan Plan: I reviewed and discussed his case. Debridement done as documented above in the clinical panel to the right toe region only. Apligraft, advance wound care product was left intact to left stump and right heel ulcer sites. The sites were additionally cleansed. Additional appligraft application will be considered next week if this devitalized tissue in order resolves. The indications, planned procedure, and anticipated healing time and management were discussed in detail. He was advised to leave the site clean dry and intact until follow-up visit; it is okay for skilled nursing health to change the outer secondary dressing if strikethrough drainage is noted. Continue compression left with 3M2L. To avoid trauma and cold exposure to the right foot. He was re-referred to vascular surgeon Dr. Nixon who treated him for PAD and lymphedema. The current recommendation is to continue with strict compression with lymphedema pumps. Per patient, arterial duplex was performed during his last vascular surgery follow-up, and he appears to have continued perfusion to the right lower extremity and no vascular intervention is planned at this time. Continue protein suppplements and increased protein in diet. It is noted he did well with hyperbaric oxygen therapy sessions. I also recommend a lymphedema clinic. He went approximately 3 years ago and found this to be very helpful. He no longer has his thigh-high compression garments that were arranged for him during this last session. Farrow wrap order will be processed at this time for the right lower extremity for better edema control there is a lymphedema clinic in [place] and his information was sent over. They can only see him once he is d/c from home health; this is noted. To keep pressure off of his left below- knee amputation stump site. He was educated again that placing the stump site directly on a pillow and create is not offloading. He is at risk for continued limb loss and due to his condition and he understands. Follow up in 1 week with at the wound healing center or call sooner if he has any questions or concerns.
[2018-09-28 09:06] VITALS: BP 153/75; PULSE 88; RESP 18; TEMP 36.4
--- NOTE | 2018-09-28 12:06 | PCM.WC.PN ---
(1) Chronic ulcer of right foot with fat layer exposed Status: Chronic Current Visit: Yes Code(s): L97.512 - Non-pressure chronic ulcer of other part of right foot with fat layer exposed (2) Ulcer of left lower extremity with fat layer exposed Status: Chronic Current Visit: Yes Code(s): L97.922 - Non-pressure chronic ulcer of unspecified part of left lower leg with fat layer exposed (3) Type 2 diabetes mellitus with diabetic polyneuropathy Status: Chronic Current Visit: Yes Code(s): E11.42 - Type 2 diabetes mellitus with diabetic polyneuropathy (4) Other specified peripheral vascular diseases Status: Chronic Current Visit: Yes Code(s): I73.89 - Other specified peripheral vascular diseases (5) Morbid obesity Status: Chronic Current Visit: Yes Code(s): E66.01 - Morbid (severe) obesity due to excess calories (6) Venous stasis dermatitis Status: Chronic Current Visit: Yes Qualifiers: Laterality: bilateral Qualified Code(s): I87.2 - Venous insufficiency (chronic) (peripheral) Code(s): I87.2 - Venous insufficiency (chronic) (peripheral) (7) BKA stump complication Status: Chronic Current Visit: No Code(s): T87.9 - Unspecified complications of amputation stump (8) Delayed wound healing Status: Chronic Current Visit: Yes Code(s): T14.8 - Other injury of unspecified body region (9) Malnutrition Status: Chronic Current Visit: Yes Code(s): E46 - Unspecified protein-calorie malnutrition (10) Lymphedema Status: Chronic Current Visit: Yes Code(s): I89.0 - Lymphedema, not elsewhere classified Type of Wound Date of Service: 09/28/18 Chief Complaint: 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 Right toe ulcers. left stump ulcers History of Wound: 58-year-old white male returns to clinic for follow-up of bilateral leg ulcers and right foot ulcers. He denies fever, chill, nausea, vomiting, loss of appetite. He had multiple advanced wound care product applications. He presents in a wheelchair today. He denies redness. The odor that was noted last week has resolved. Progress of Wound: Stable right toe and heel areas. Left stump site ulcer stable - Physical Exam Vital Signs Temp Pulse Resp BP 97.5 F L 88 18 153/75 H 09/28/18 09:06 09/28/18 09:06 09/28/18 09:06 09/28/18 09:06 General: Alert, Oriented x3, Cooperative HEENT: Atraumatic Extremities: No cyanosis, Capillary Refill Less than 3 Seconds, No Calf Tenderness - Negative Badillo right, Diminished Peripheral Pulses, Edema - Bilateral consistent with chronic edema and lymphedema Skin: Ulcer/ Wound - No purulence, erythema hamstring, odor, or infection bilateral. There is still mild to moderate interdigital drainage and moisture buildup to the right toe area. There is continued transformation of some hemorrhagic tissue to full granulation tissue to the left stump site and there is continued localized edema here also. The peripheral skin is hairless and atrophic bilateral no deep necrosis or other tissue layers identified bilateral Wound Measurements and Assessment WC - Nurse 1 - General Ulcer Measurement Start: 09/07/18 09:28 Freq: Status: Active Protocol: Activity Type Activity Date Activity User E-Sign Co-Sign Detail Recorded Client Recorded Date Recorded By Document 09/28/18 09:06 DV [id number] 09/28/18 09:21 DV 09/28/18 09:06 Wound Center Nurse 1 [Ulcer Assessment] #22 left stump -Combined with other wound No -Current Size (cm) - Length 10.8 -Current Size (cm) - Width 11.7 -Current Size (cm) - Depth 0.1 -Total Square Cm 126.36 -Photo Taken No -Epithelialization None Present -Tunneling No -Undermining/Tunneling No -Circular Undermining No -Exudate Amt Large -Wound Margin Indistinct, Non -Visible -Granulation Amt None Present (0 %) -Granulation Quality N/A -Slough/Fibrin Yes -Necrosis Amt Large (67-100%) -Necrotic Tissue Type Adherent Slough -Structure Exposed None/Limited to Skin Breakdown -Texture (Martha-wound Skin Appearance) Assessed Localized Edema Scarring -Moisture (Martha-wound Skin Appearance No Abnormality ) Maceration Weeping -Color (Martha-wound Skin Appearance) Assessed Erythema -Temperature (Martha-wound Skin No Abnormality Appearance) (Pt Warm) -Tenderness on Palpation (Martha-wound No Skin Appearance) -Ulcer Cleansing soap -Foul Odor after Cleansing Yes -Anesthetic Used 4% Lidocaine Solution #13 R Med Heel -Combined with other wound No -Current Size (cm) - Length 1.8 -Current Size (cm) - Width 2.1 -Current Size (cm) - Depth 0.1 -Total Square Cm 3.78 -Photo Taken No -Epithelialization None Present -Tunneling No -Undermining/Tunneling No -Circular Undermining No -Slough/Fibrin Yes -Necrosis Amt Large (67-100%) -Necrotic Tissue Type Adherent Slough -Structure Exposed None/Limited to Skin Breakdown -Texture (Martha-wound Skin Appearance) Assessed Localized Edema -Moisture (Martha-wound Skin Appearance Assessed ) Maceration -Color (Martha-wound Skin Appearance) Assessed Erythema -Temperature (Martha-wound Skin No Abnormality Appearance) (Pt Warm) -Tenderness on Palpation (Martha-wound No Skin Appearance) -Ulcer Cleansing soap -Foul Odor after Cleansing Yes -Anesthetic Used 4% Lidocaine Solution #21 Right Foot-Toes w/Metatarsal Head circumfrential -Combined with other wound No -Current Size (cm) - Length 13.5 -Current Size (cm) - Width 7.8 -Current Size (cm) - Depth 0.3 -Total Square Cm 105.30 -Photo Taken No -Epithelialization None Present -Tunneling No -Undermining/Tunneling No -Circular Undermining No -Exudate Amt Large -Exudate Type Serous -Wound Margin Indistinct, Non -Visible -Granulation Amt None Present (0 %) -Granulation Quality N/A -Slough/Fibrin Yes -Necrosis Amt Large (67-100%) -Necrotic Tissue Type Adherent Slough -Structure Exposed None/Limited to Skin Breakdown -Texture (Martha-wound Skin Appearance) Assessed Localized Edema -Moisture (Martha-wound Skin Appearance Assessed ) Maceration Weeping -Color (Martha-wound Skin Appearance) No Abnormality Assessed -Temperature (Martha-wound Skin No Abnormality Appearance) (Pt Warm) -Ulcer Cleansing soap -Foul Odor after Cleansing Yes -Anesthetic Used 4% Lidocaine Solution [Edema Assessment] -Lower Limb Edema Present Yes -Right Calf (cm) 37.0 -Right Ankle (cm) 29.2 -Left Calf (cm) 47.2 WC - Nurse 2 - General Ulcer CM Notes Start: 09/07/18 09:28 Freq: Status: Active Protocol: Activity Type Activity Date Activity User E-Sign Co-Sign Detail Recorded Client Recorded Date Recorded By Document 09/28/18 09:34 AN [id number] 09/28/18 09:55 AN 09/28/18 09:34 Wound Center Nurse 2 [Procedure/Treatment] #22 left stump -Time 09:49 -Correct Patient Yes -Correct Side, Site, Position Yes -Correct Procedure Yes -Procedure Performed Yes -Type of Procedure Debridement -Clinical Debridement Subcutaneous -Post Debridement Size (cm) - Length 10.9 -Post Debridement Size (cm) - Width 11.8 -Post Debridement Size (cm) - Depth 0.1 -Total Square Cm 128.62 -Wound/Ulcer Outcome Amputation -Ulcer Cleansing Rinsed/ Irrigated with Saline -Foul Odor after Cleansing No -Bioengineered Tissue Yes -Type of bioengineered Tissue Apligraf -Expiration Date 10/04/18 -Product Lot Number [id number] -Percent Used 50 -Bleeding Controlled with Pressure -Offloading No -Treatment Response Procedure Tolerated Well #13 R Med Heel -Time 09:53 -Correct Patient Yes -Correct Side, Site, Position Yes -Correct Procedure Yes -Procedure Performed Yes -Type of Procedure Debridement -Clinical Debridement Subcutaneous -Post Debridement Size (cm) - Length 1.9 -Post Debridement Size (cm) - Width 2.2 -Post Debridement Size (cm) - Depth 0.1 -Total Square Cm 4.18 -Wound/Ulcer Outcome Not Healed -Ulcer Cleansing Rinsed/ Irrigated with Saline -Foul Odor after Cleansing No -Bioengineered Tissue Yes -Type of bioengineered Tissue Apligraf -Expiration Date 10/04/18 -Product Lot Number [id number] -Percent Used 50 -Bleeding Controlled with Pressure -Offloading No -Treatment Response Procedure Tolerated Well #21 Right Foot-Toes w/Metatarsal Head circumfrential -Time 09:53 -Correct Patient Yes -Correct Side, Site, Position Yes -Correct Procedure Yes -Procedure Performed Yes -Type of Procedure Debridement -Clinical Debridement Subcutaneous -Post Debridement Size (cm) - Length 13.6 -Post Debridement Size (cm) - Width 7.9 -Post Debridement Size (cm) - Depth 0.3 -Total Square Cm 107.44 -Wound/Ulcer Outcome Not Healed -Ulcer Cleansing Rinsed/ Irrigated with Saline -Foul Odor after Cleansing No -Bioengineered Tissue No -Bleeding Controlled with Pressure -Offloading No -Treatment Response Procedure Tolerated Well [See Physician Procedure note for Specifics] Pain Scale: 0-10 Numeric [Pain] -Is Patient Pain Free? Yes Musculoskeletal: No Tenderness to Palpation of Joints or Extremities, Muscle Wasting, - - Left below-knee amputation. Bilateral lymphedema. Neurological: - - Lack of epicritic sensation light touch bilateral lower extremities Psych/Mental Status: Normal Affect, Appropriate Debridement Note Post-Debridement Measurements/Treatment WC - Nurse 2 - General Ulcer CM Notes Start: 09/07/18 09:28 Freq: Status: Active Protocol: Activity Type Activity Date Activity User E-Sign Co-Sign Detail Recorded Client Recorded Date Recorded By Document 09/07/18 09:53 AN [id number] 09/07/18 09:58 AN Document 09/14/18 10:28 DL [id number] 09/14/18 10:41 DL Document 09/28/18 09:34 AN [id number] 09/28/18 09:55 AN 09/07/18 09/14/18 09/28/18 09:53 10:28 09:34 Wound Center Nurse 2 #22 left stump -Time 10:32 09:49 -Correct Patient Yes Yes -Correct Side, Site, Position Yes Yes -Correct Procedure Yes Yes -Procedure Performed Yes Yes -Type of Procedure Debridement Debridement -Clinical Debridement Subcutaneous Subcutaneous -Post Debridement Size (cm) - Length 9.6 10.9 -Post Debridement Size (cm) - Width 12.6 11.8 -Post Debridement Size (cm) - Depth 0.1 0.1 -Total Square Cm 120.96 128.62 -Wound/Ulcer Outcome Amputation Amputation -Ulcer Cleansing Rinsed/ Rinsed/ Irrigated with Irrigated with Saline Saline -Foul Odor after Cleansing No No -Bioengineered Tissue Yes Yes -Type of bioengineered Tissue Apligraf Apligraf -Expiration Date 09/22/18 10/04/18 -Product Lot Number [id number] -Percent Used 50 50 -Saline Lot Number [id number] -Topical Lidocaine (%) 4 -Bleeding Controlled with Pressure Pressure -Offloading No -Treatment Response Procedure Procedure Tolerated Well Tolerated Well #13 R Med Heel -Time 09:56 10:33 09:53 -Correct Patient Yes Yes Yes -Correct Side, Site, Position Yes Yes Yes -Correct Procedure Yes Yes Yes -Procedure Performed Yes Yes Yes -Type of Procedure Debridement Debridement Debridement -Clinical Debridement Subcutaneous Subcutaneous Subcutaneous -Post Debridement Size (cm) - Length 2.6 2.7 1.9 -Post Debridement Size (cm) - Width 2.4 2.2 2.2 -Post Debridement Size (cm) - Depth 0.2 0.1 0.1 -Total Square Cm 6.24 5.94 4.18 -Wound/Ulcer Outcome Not Healed Not Healed Not Healed -Ulcer Cleansing Rinsed/ Rinsed/ Irrigated with Irrigated with Saline Saline -Foul Odor after Cleansing No No No -Bioengineered Tissue No Yes Yes -Type of bioengineered Tissue Apligraf Apligraf -Expiration Date 09/22/18 10/04/18 -Product Lot Number [id number] -Percent Used 25 50 -Saline Lot Number [id number] -Topical Lidocaine (%) 4 -Bleeding Controlled with Pressure Pressure Pressure -Offloading No No No -Treatment Response Procedure Procedure Procedure Tolerated Well Tolerated Well Tolerated Well #21 Right Foot-Toes w/Metatarsal Head circumfrential -Time 09:57 10:34 09:53 -Correct Patient Yes Yes Yes -Correct Side, Site, Position Yes Yes Yes -Correct Procedure Yes Yes Yes -Procedure Performed Yes Yes Yes -Type of Procedure Debridement Debridement Debridement -Clinical Debridement Subcutaneous Subcutaneous Subcutaneous -Post Debridement Size (cm) - Length 13.8 14.1 13.6 -Post Debridement Size (cm) - Width 8.1 9.1 7.9 -Post Debridement Size (cm) - Depth 0.2 0.1 0.3 -Total Square Cm 111.78 128.31 107.44 -Wound/Ulcer Outcome Not Healed Not Healed Not Healed -Ulcer Cleansing Rinsed/ Wound Cleanser Rinsed/ Irrigated with Irrigated with Saline Saline -Foul Odor after Cleansing No No No -Bioengineered Tissue No Yes No -Type of bioengineered Tissue Apligraf -Expiration Date 09/22/18 -Product Lot Number [id number] -Percent Used 25 -Saline Lot Number [id number] -Topical Lidocaine (%) 4 -Bleeding Controlled with Pressure Pressure Pressure -Offloading No No No -Treatment Response Procedure Procedure Procedure Tolerated Well Tolerated Well Tolerated Well Pain Scale: 0-10 Numeric Is Patient Pain Free? Yes Yes Yes Wound debrided: leg stump site Laterality: Left Wound Grade/Stage: grade 1 Type of Debridement: Excisional debridement Anesthesia Used: 5% Lidocaine Gel Depth: in the subcutaneous layer Percentage of wound debrided: 100 Instrument Used: #15 blade Tissue Removed: fibrous, devitalized subcutaneous, biofilm, slough Severity: Fat Layer Exposed Amount of bleeding with debridement: Mild Bleeding Controlled with: Pressure Patient tolerated procedure well - Additional Wound Wound debrided: heel Laterality: Right Wound Grade/Stage: grade 3 Type of Debridement: Excisional debridement Anesthesia Used: 5% Lidocaine Gel Depth: in the subcutaneous layer Percentage of wound debrided: 100 Instrument Used: #15 blade Tissue Removed: fibrous, devitalized subcutaneous, biofilm, slough Severity: Fat Layer Exposed Amount of bleeding with debridement: Mild Bleeding Controlled with: Pressure Patient tolerated procedure: Patient tolerated procedure well - Additional Wound Wound debrided: toes Laterality: Right Wound Grade/Stage: grade 1 Type of Debridement: Excisional debridement Anesthesia Used: 5% Lidocaine Gel Depth: in the subcutaneous layer Percentage of wound debrided: 100 Instrument Used: #15 blade Tissue Removed: fibrous, devitalized subcutaneous, biofilm, slough Severity: Fat Layer Exposed Amount of bleeding with debridement: Mild Bleeding Controlled with: Pressure Patient tolerated procedure: Patient tolerated procedure well Assessment/Plan Active Problems Other specified peripheral vascular diseases (Chronic) Lymphedema (Chronic) Chronic ulcer of right foot with fat layer exposed (Chronic) Ulcer of left lower extremity with fat layer exposed (Chronic) Morbid obesity (Chronic) Venous stasis dermatitis (Chronic) Type 2 diabetes mellitus with diabetic polyneuropathy (Chronic) Delayed wound healing (Chronic) Malnutrition (Chronic) Assessment: ulcer right forefoot stable. Left below-knee amputation with fat tissue exposed stable. Lymphedema. Chronic lower extremity edema and venous insufficiency. Morbid obesity. Type 2 diabetes uncontrolled with peripheral neuropathy. CKD. Hypertension. Malnutrition. Delayed wound healing. Nonadherence to treatment plan Plan: I reviewed and discussed his case. Debridement done as documented above in the clinical panel to the right toe region only. Apligraft, advance wound care product was left intact to left stump (anterior part) and right heel ulcer sites. The sites were additionally cleansed. Additional appligraft application will be considered next week if this devitalized tissue in order resolves. Aquacel Ag was additionally applied over the sites and also to the right toe area. The skin substitute site will be left intact for week and the toe area will be changed daily with home health. The indications, planned procedure, and anticipated healing time and management were discussed in detail. He was advised to leave the site clean dry and intact until follow-up visit; it is okay for assisted health to change the outer secondary dressing if strikethrough drainage is noted. Continue compression left with 3M2L. To avoid trauma and cold exposure to the right foot. He was re-referred to vascular surgeon Dr. Nixon who treated him for PAD and lymphedema. The current recommendation is to continue with strict compression with lymphedema pumps. Per patient, arterial duplex was performed during his last vascular surgery follow-up, and he appears to have continued perfusion to the right lower extremity and no vascular intervention is planned at this time. Continue protein suppplements and increased protein in diet. It is noted he did well with hyperbaric oxygen therapy sessions. I also recommend a lymphedema clinic. He went approximately 3 years ago and found this to be very helpful. He no longer has his thigh-high compression garments that were arranged for him during this last session. [place] wrap order will be processed at this time for the right lower extremity for better edema control there is a lymphedema clinic in [place] and his information was sent over. They can only see him once he is d/c from home health; this is noted. To keep pressure off of his left below-knee amputation stump site. He was educated again that placing the stump site directly on a pillow and crate is not offloading. This is reviewed again today and he reports he may or may not make an adjustment this upcoming week to address this. Bilateral offloading donut pillow prescriptions were provided today and he was advised to apply the right 1 to the lower limb taking care to make sure new pressure ulcers not form in the leg site. The left side will be applied proximal to the stump site and possibly in the thigh depending on how this can fit properly and safely. He is at risk for continued limb loss and due to his condition and he understands. Follow up in 1 week with at the wound healing center or call sooner if he has any questions or concerns.
== END 2018-10-04 23:59 ==
LOC: WC 09:15
PROVIDERS: Family Provider Family Medicine Geriatric Medicine; PCP Family Medicine Geriatric Medicine; Referring Provider Podiatrist; Visit Provider Podiatrist
DX: E11.621 Type 2 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with foot ulcer (principal); E11.51 Type 2 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with diabetic peripheral angiopathy without gangrene; L97.412 Non-pressure chronic ulcer of right heel and midfoot with fat layer exposed; L97.512 Non-pressure chronic ulcer of other part of right foot with fat layer exposed; I87.2 Venous insufficiency (chronic) (peripheral); E66.01 Morbid (severe) obesity due to excess calories; I89.0 Lymphedema, not elsewhere classified; Z89.512 Acquired absence of left leg below knee; Z71.3 Dietary counseling and surveillance; N18.9 Chronic kidney disease, unspecified; I12.9 Hypertensive chronic kidney disease with stage 1 through stage 4 chronic kidney disease, or unspecified chronic kidney disease; E11.22 Type 2 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with diabetic chronic kidney disease; E11.65 Type 2 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with hyperglycemia; E11.42 Type 2 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with diabetic polyneuropathy; L97.822 Non-pressure chronic ulcer of other part of left lower leg with fat layer exposed
CPT/HCPCS: 11042; 15271; 15275; 29581; Q4101

== ENCOUNTER → 2018-10-03 13:36 | Outpatient (CLI) | payer MEDICARE, MEDICAID, SELFPAY ==
[2018-09-23 11:23] VITALS: BMI 45.6
[2018-10-03 16:23] LABS: ALB/GLOB Ratio 0.7 RATIO (0.9-2.4); AST(SGOT) 46 U/L (15-37); Alanine Aminotransfer ALT/SGPT 61 U/L (16-61); Albumin, Serum 3.2 g/dL (3.2-5.0); Alkaline Phosphatase 92 U/L (45-117); Anion Gap 8 (5-15); BUN 37 mg/dL (7-18); BUN/Creat Ratio 18.3 RATIO (10-20); Calcium,Total 9.1 mg/dL (8.5-10.1); Chloride 104 mmol/L (98-107); Creatinine, Serum 2.02 mg/dL (0.70-1.30); EST Glomerular Filtration Rate 36 mL/min (>60); Est Glom Filt Rate - Afr Amer 44 mL/min (>60); Globulin 4.9 g/dL (2.2-4.2); Glucose 135 mg/dL (74-106); PSA,Total - Annual Screen 0.11 ng/mL (0.00-4.00); Potassium 4.8 mmol/L (3.5-5.1); Protein, Total 8.1 g/dL (6.4-8.2); Sodium Level 139 mmol/L (136-145); Thyroid Stim Hormone (TSH) 4.55 uIU/mL (0.358-3.74)
[2018-10-03 17:00] LABS: Absolute Lymphocyte Count 1.49 X10^3/ul (0.83-4.51); Absolute Neutrophil Count 6.7 X10^3/uL (2.0-7.7); Basophil# 0.03 X10^3/uL; Basophil% 0.3 % (0-1); Eosinophil# 0.25 X10^3/uL; Eosinophils% 2.7 % (0-5); Hematocrit 34.1 % (40-54); Hemoglobin 10.5 g/dl (13.0-16.5); Lymphocyte # 1.49 X10^3/ul (4.0); Mean Corp Hgb Conc 30.8 g/gl (32-36); Mean Corpuscular Hgb 27.6 pg (27.0-32.0); Mean Corpuscular Volume 89.7 fL (80-94); Mean Platelet Vol. 11.6 fl (6.2-12.0); Monocyte# 0.81 X10^3/uL; Monocyte% 8.7 % (0-10); Neutrophil # 6.68 X10^3/uL (2.7-7.7); Neutrophil % 71.8 % (47-70); Platelet Count 169 K/mm3 (150-450); RBC Distribution Width CV 16.1 % (11.6-14.6); RBC Distribution Width SD 52.8 fl (35.1-43.9); White Blood Count 9.3 K/mm3 (4.4-11.0)
[2018-10-03 17:03] LABS: POSITIVE COUNT NO; POSITIVE DIFFERENTIAL NO; POSITIVE MORPHOLOGY NO
== END ==
PROVIDERS: Family Provider Family Medicine Geriatric Medicine; PCP Family Medicine Geriatric Medicine; Visit Provider Family Medicine Geriatric Medicine
DX: E11.9 Type 2 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without complications (principal); Z12.5 Encounter for screening for malignant neoplasm of prostate; I10 Essential (primary) hypertension
CPT/HCPCS: 36415; 80053; 84153; 84443; 85025; G0103

== ENCOUNTER 2018-11-02 10:00 | Outpatient (RCR) | payer MEDICARE, MEDICAID, SELFPAY ==
[2018-10-05 00:57] VITALS: BP 153/75; PULSE 88; RESP 18; TEMP 36.4
[2018-10-05 10:07] VITALS: BP 111/65; PULSE 92; RESP 18; TEMP 35.8; BMI 45.6
--- NOTE | 2018-10-05 11:28 | PN.PCM_ITS ---
(1) Ulcer of left lower extremity with fat layer exposed Status: Chronic Current Visit: Yes Code(s): L97.922 - Non-pressure chronic ulcer of unspecified part of left lower leg with fat layer exposed (2) Chronic ulcer of right foot with fat layer exposed Status: Chronic Current Visit: Yes Code(s): L97.512 - Non-pressure chronic ulcer of other part of right foot with fat layer exposed (3) Lymphedema Status: Chronic Current Visit: Yes Code(s): I89.0 - Lymphedema, not elsewhere classified (4) Type 2 diabetes mellitus with diabetic polyneuropathy Status: Chronic Current Visit: Yes Code(s): E11.42 - Type 2 diabetes mellitus with diabetic polyneuropathy (5) Delayed wound healing Status: Chronic Current Visit: Yes Code(s): T14.8 - Other injury of unspecified body region (6) Malnutrition Status: Chronic Current Visit: Yes Code(s): E46 - Unspecified protein- calorie malnutrition Type of Wound Date of Service: 10/05/18 Chief Complaint: 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 Right toe ulcers. left stump ulcers History of Wound: 58-year-old white male returns to clinic for follow-up of bilateral leg ulcers and right foot ulcers. He denies fever, chill, nausea, vomiting, loss of appetite. He had multiple advanced wound care product applications. He presents in a wheelchair today. He denies redness. The odor that was noted last week has resolved. He kept bilateral Apligraf in place this past week as advised. He is not been able to offload his left lower extremity stump site as advised and discussed in great length last week. Progress of Wound: Stable right toe and heel areas. Left stump site ulcer stable - Physical Exam Vital Signs Temp Pulse Resp BP 96.4 F L 92 18 111/65 10/05/18 10:07 10/05/18 10:07 10/05/18 10:07 10/05/18 10:07 General: Alert, Oriented x3, Cooperative HEENT: Atraumatic Extremities: No cyanosis, Capillary Refill Less than 3 Seconds, No Calf Tenderness - Negative Harry and Badillo right, Diminished Peripheral Pulses, Edema - Bilateral lower extremity continue, - - Left below-knee amputation Skin: Ulcer/ Wound - No purulence, erythema, streaking, odor, or infection. Apligraf remains intact to the right heel and anterior part of the left below- knee amputation stump site. There is no deep tissue exposure noted. No necrosis bilateral Wound Measurements and Assessment WC - Nurse 1 - General Ulcer Measurement Start: 10/05/18 10:07 Freq: Status: Active Protocol: Activity Type Activity Date Activity User E-Sign Co-Sign Detail Recorded Client Recorded Date Recorded By Document 10/05/18 10:07 DL [id number] 10/05/18 10:24 DL 10/05/18 10:07 Wound Center Nurse 1 [Ulcer Assessment] #22 left stump -Current Size (cm) - Length 0.1 -Current Size (cm) - Width 0.1 -Current Size (cm) - Depth 0.1 -Total Square Cm 0.01 -Photo Taken No -Exudate Amt Medium -Exudate Type Serosanguineous -Wound Margin Indistinct, Non -Visible -Texture (Martha-wound Skin Appearance) Scarring -Moisture (Martha-wound Skin Appearance Maceration ) -Color (Martha-wound Skin Appearance) Hemosiderin Staining -Temperature (Martha-wound Skin No Abnormality Appearance) (Pt Warm) -Ulcer Cleansing Wound Cleanser -Foul Odor after Cleansing No #13 R Med Heel -Current Size (cm) - Length 0.1 -Current Size (cm) - Width 0.1 -Current Size (cm) - Depth 0.1 -Total Square Cm 0.01 -Photo Taken No -Exudate Amt None Present -Exudate Type Serosanguineous -Wound Margin Indistinct, Non -Visible -Temperature (Martha-wound Skin No Abnormality Appearance) (Pt Warm) -Tenderness on Palpation (Martha-wound No Skin Appearance) -Ulcer Cleansing Wound Cleanser -Foul Odor after Cleansing No #21 Right Foot-Toes w/Metatarsal Head circumfrential -Current Size (cm) - Length 5 -Current Size (cm) - Width 3.8 -Current Size (cm) - Depth 0.2 -Total Square Cm 19.0 -Photo Taken No -Exudate Amt Medium -Exudate Type Serosanguineous -Wound Margin Indistinct, Non -Visible -Granulation Amt Large (67-100%) -Granulation Quality [place] -Necrosis Amt Small (1-33%) -Necrotic Tissue Type Adherent Slough -Structure Exposed N/A -Texture (Martha-wound Skin Appearance) Localized Edema Scarring -Moisture (Martha-wound Skin Appearance Maceration ) -Color (Martha-wound Skin Appearance) Hemosiderin Staining -Temperature (Martha-wound Skin No Abnormality Appearance) (Pt Warm) -Tenderness on Palpation (Martha-wound No Skin Appearance) -Ulcer Cleansing Wound Cleanser -Foul Odor after Cleansing No -Anesthetic Used 4% Lidocaine Solution [Edema Assessment] -Right Calf (cm) 36.5 -Right Ankle (cm) 29.5 -Left Calf (cm) 42.5 WC - Nurse 2 - General Ulcer CM Notes Start: 10/05/18 10:07 Freq: Status: Active Protocol: Activity Type Activity Date Activity User E-Sign Co-Sign Detail Recorded Client Recorded Date Recorded By Document 10/05/18 10:33 DL [id number] 10/05/18 10:49 DL 10/05/18 10:33 Wound Center Nurse 2 [Procedure/Treatment] #22 left stump -Time 10:35 -Correct Patient Yes -Correct Side, Site, Position Yes -Correct Procedure Yes -Procedure Performed Yes -Type of Procedure Debridement -Clinical Debridement Subcutaneous -Post Debridement Size (cm) - Length 0.2 -Post Debridement Size (cm) - Width 0.2 -Post Debridement Size (cm) - Depth 0.1 -Total Square Cm 0.04 -Wound/Ulcer Outcome Amputation -Ulcer Cleansing Rinsed/ Irrigated with Saline -Foul Odor after Cleansing No -Bioengineered Tissue Yes -Type of bioengineered Tissue Apligraf -Expiration Date 10/14/18 -Product Lot Number [id number] -Percent Used 50 -Saline Lot Number [id number] -Treatment Response Procedure Tolerated Well #13 R Med Heel -Time 10:36 -Correct Patient Yes -Correct Side, Site, Position Yes -Correct Procedure Yes -Procedure Performed Yes -Type of Procedure Debridement -Clinical Debridement Subcutaneous -Post Debridement Size (cm) - Length 0.2 -Post Debridement Size (cm) - Width 0.2 -Post Debridement Size (cm) - Depth 0.1 -Total Square Cm 0.04 -Wound/Ulcer Outcome Not Healed -Ulcer Cleansing Rinsed/ Irrigated with Saline -Foul Odor after Cleansing No -Bioengineered Tissue Yes -Type of bioengineered Tissue Apligraf -Expiration Date 10/14/18 -Percent Used 50 -Saline Lot Number [id number] -Bleeding Controlled with Pressure -Offloading Yes -Treatment Response Procedure Tolerated Well #21 Right Foot-Toes w/Metatarsal Head circumfrential -Time 10:36 -Correct Patient Yes -Correct Side, Site, Position Yes -Correct Procedure Yes -Procedure Performed Yes -Type of Procedure Debridement -Clinical Debridement Subcutaneous -Post Debridement Size (cm) - Length 5.1 -Post Debridement Size (cm) - Width 3.9 -Post Debridement Size (cm) - Depth 0.2 -Total Square Cm 19.89 -Wound/Ulcer Outcome Not Healed -Ulcer Cleansing Rinsed/ Irrigated with Saline -Foul Odor after Cleansing No -Bioengineered Tissue Yes -Type of bioengineered Tissue Apligraf -Expiration Date 10/14/18 -Product Lot Number [id number] -Percent Used 50 -Saline Lot Number [id number] -Bleeding Controlled with Pressure -Offloading Yes -Treatment Response Procedure Tolerated Well [See Physician Procedure note for Specifics] Pain Scale: 0-10 Numeric [Pain] -Is Patient Pain Free? Yes Musculoskeletal: No Tenderness to Palpation of Joints or Extremities, Muscle Wasting Neurological: - - Lack of epicritic sensation light touch consistent with neuropathy bilateral Psych/Mental Status: Normal Affect, Appropriate Debridement Note Post-Debridement Measurements/Treatment WC - Nurse 2 - General Ulcer CM Notes Start: 10/05/18 10:07 Freq: Status: Active Protocol: Activity Type Activity Date Activity User E-Sign Co-Sign Detail Recorded Client Recorded Date Recorded By Document 10/05/18 10:33 DL [id number] 10/05/18 10:49 DL 10/05/18 10:33 Wound Center Nurse 2 #22 left stump -Time 10:35 -Correct Patient Yes -Correct Side, Site, Position Yes -Correct Procedure Yes -Procedure Performed Yes -Type of Procedure Debridement -Clinical Debridement Subcutaneous -Post Debridement Size (cm) - Length 0.2 -Post Debridement Size (cm) - Width 0.2 -Post Debridement Size (cm) - Depth 0.1 -Total Square Cm 0.04 -Wound/Ulcer Outcome Amputation -Ulcer Cleansing Rinsed/ Irrigated with Saline -Foul Odor after Cleansing No -Bioengineered Tissue Yes -Type of bioengineered Tissue Apligraf -Expiration Date 10/14/18 -Product Lot Number [id number] -Percent Used 50 -Saline Lot Number [id number] -Treatment Response Procedure Tolerated Well #13 R Med Heel -Time 10:36 -Correct Patient Yes -Correct Side, Site, Position Yes -Correct Procedure Yes -Procedure Performed Yes -Type of Procedure Debridement -Clinical Debridement Subcutaneous -Post Debridement Size (cm) - Length 0.2 -Post Debridement Size (cm) - Width 0.2 -Post Debridement Size (cm) - Depth 0.1 -Total Square Cm 0.04 -Wound/Ulcer Outcome Not Healed -Ulcer Cleansing Rinsed/ Irrigated with Saline -Foul Odor after Cleansing No -Bioengineered Tissue Yes -Type of bioengineered Tissue Apligraf -Expiration Date 10/14/18 -Percent Used 50 -Saline Lot Number [id number] -Bleeding Controlled with Pressure -Offloading Yes -Treatment Response Procedure Tolerated Well #21 Right Foot-Toes w/Metatarsal Head circumfrential -Time 10:36 -Correct Patient Yes -Correct Side, Site, Position Yes -Correct Procedure Yes -Procedure Performed Yes -Type of Procedure Debridement -Clinical Debridement Subcutaneous -Post Debridement Size (cm) - Length 5.1 -Post Debridement Size (cm) - Width 3.9 -Post Debridement Size (cm) - Depth 0.2 -Total Square Cm 19.89 -Wound/Ulcer Outcome Not Healed -Ulcer Cleansing Rinsed/ Irrigated with Saline -Foul Odor after Cleansing No -Bioengineered Tissue Yes -Type of bioengineered Tissue Apligraf -Expiration Date 10/14/18 -Product Lot Number [id number] -Percent Used 50 -Saline Lot Number [id number] -Bleeding Controlled with Pressure -Offloading Yes -Treatment Response Procedure Tolerated Well Pain Scale: 0-10 Numeric Is Patient Pain Free? Yes Wound debrided: leg stump site Laterality: Left Wound Grade/Stage: grade 1 Type of Debridement: Excisional debridement Anesthesia Used: 5% Lidocaine Gel Depth: in the subcutaneous layer Percentage of wound debrided: 100 Instrument Used: #15 blade Tissue Removed: fibrous, devitalized subcutaneous, biofilm, slough Severity: Fat Layer Exposed Amount of bleeding with debridement: Mild Bleeding Controlled with: Pressure Patient tolerated procedure well - Additional Wound Wound debrided: toe cluster Laterality: Right Wound Grade/Stage: grade 1 Type of Debridement: Excisional debridement Anesthesia Used: 5% Lidocaine Gel Depth: in the subcutaneous layer Percentage of wound debrided: 40 Instrument Used: #15 blade Tissue Removed: fibrous, devitalized subcutaneous, biofilm, slough Severity: Fat Layer Exposed Amount of bleeding with debridement: Mild Bleeding Controlled with: Pressure Patient tolerated procedure: Patient tolerated procedure well Assessment/Plan Active Problems Lymphedema (Chronic) Chronic ulcer of right foot with fat layer exposed (Chronic) Ulcer of left lower extremity with fat layer exposed (Chronic) Type 2 diabetes mellitus with diabetic polyneuropathy (Chronic) Delayed wound healing (Chronic) Malnutrition (Chronic) Assessment: ulcer right forefoot stable. Left below-knee amputation with fat tissue exposed stable. Lymphedema. Chronic lower extremity edema and venous insufficiency. Morbid obesity. Type 2 diabetes uncontrolled with peripheral neuropathy. CKD. Hypertension. Malnutrition. Delayed wound healing. Nonadherence to treatment plan Plan: I reviewed and discussed his case. Debridement done as documented above in the clinical panel to the right toe region only. Apligraft, advance wound care product was left intact to left stump (anterior part) and right heel ulcer sites. The sites were additionally cleansed. Aquacel Ag was additionally applied over the sites and also to the right toe area. Additional apligraft was applied according to standard protocol after perforated to the right toe cluster area as well as the posterior part of the left stump. The indications, planned procedure, and anticipated healing time and management were discussed in detail. He was advised to leave the site clean dry and intact until follow-up visit; it is okay for [facility] to change the outer secondary dressing if strikethrough drainage is noted. Continue compression left with 3M2L. To avoid trauma and cold exposure to the right foot. He was re-referred to vascular surgeon Dr. Nixon who treated him for PAD and lymphedema. The current recommendation is to continue with strict compression with lymphedema pumps. Per patient, arterial duplex was performed during his last vascular surgery follow-up, and he appears to have continued perfusion to the right lower extremity and no vascular intervention is planned at this time. Continue protein suppplements and increased protein in diet. It is noted he did well with hyperbaric oxygen therapy sessions. I also recommend a lymphedema clinic. He went approximately 3 years ago and found this to be very helpful. He no longer has his thigh-high compression garments that were arranged for him during this last session. [place] wrap order will be processed at this time for the right lower extremity for better edema control there is a lymphedema clinic in [place] and his information was sent over. They can only see him once he is d/c from home health; this is noted. To keep pressure off of his left below-knee amputation stump site. He was educated again that placing the stump site directly on a pillow and crate is not offloading. This is reviewed again today and he reports he may or may not make an adjustment this upcoming week to address this. Bilateral offloading donut pillow prescriptions were provided today and he was advised to apply the right 1 to the lower limb taking care to make sure new pressure ulcers not form in the leg site. The left side will be applied proximal to the stump site and possibly in the thigh depending on how this can fit properly and safely. He is at risk for continued limb loss and due to his condition and he understands. Follow up in 1 week with at the wound healing center or call sooner if he has any questions or concerns.
[2018-10-12 09:50] VITALS: BP 103/75; PULSE 85; RESP 16; TEMP 35.5; BMI 45.6
--- NOTE | 2018-10-12 15:20 | PCM.WC.PN ---
(1) Ulcer of left lower extremity with fat layer exposed Status: Chronic Code(s): L97.922 - Non-pressure chronic ulcer of unspecified part of left lower leg with fat layer exposed (2) Chronic ulcer of right foot with fat layer exposed Status: Chronic Code(s): L97.512 - Non-pressure chronic ulcer of other part of right foot with fat layer exposed (3) Lymphedema Status: Chronic Code(s): I89.0 - Lymphedema, not elsewhere classified (4) Type 2 diabetes mellitus with diabetic polyneuropathy Status: Chronic Code(s): E11.42 - Type 2 diabetes mellitus with diabetic polyneuropathy (5) Delayed wound healing Status: Chronic Code(s): T14.8 - Other injury of unspecified body region (6) Malnutrition Status: Chronic Code(s): E46 - Unspecified protein-calorie malnutrition Type of Wound Date of Service: 10/12/18 Chief Complaint: 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 Right toe ulcers. left stump ulcers History of Wound: 58-year-old white male returns to clinic for follow-up of bilateral leg ulcers and right foot ulcers. He denies fever, chill, nausea, vomiting, loss of appetite. He had multiple advanced wound care product applications. He presents in a wheelchair today. He denies redness. The odor that was noted last week has resolved. He kept bilateral Apligraf in place this past week as advised. He is not been able to offload his left lower extremity stump site as advised and discussed in great length last week. He states he is not sure if he is going to offload this. Progress of Wound: Stable right toe and heel areas. Left stump site ulcer stable - Physical Exam Vital Signs Temp Pulse Resp BP 96 F L 85 16 103/75 10/12/18 09:50 10/12/18 09:50 10/12/18 09:50 10/12/18 09:50 General: Alert, Oriented x3, Cooperative Extremities: No cyanosis, Capillary Refill Less than 3 Seconds, No Calf Tenderness - Negative Harry and Badillo sign right, Diminished Peripheral Pulses, Edema, - - Left below-knee amputation. Bilateral lymphedema continued Skin: Ulcer/ Wound - No purulence, erythema, infection bilateral. There is increased maceration and odor to the right foot with no necrosis streaking or erythema, - - Peripheral skin is hairless and atrophic bilateral Wound Measurements and Assessment WC - Nurse 1 - General Ulcer Measurement Start: 10/05/18 10:07 Freq: Status: Active Protocol: Activity Type Activity Date Activity User E-Sign Co-Sign Detail Recorded Client Recorded Date Recorded By Document 10/12/18 09:50 BMF [id number] 10/12/18 09:52 BMF 10/12/18 09:50 Wound Center Nurse 1 [Ulcer Assessment] #22 left stump -Combined with other wound No -Current Size (cm) - Length 10 -Current Size (cm) - Width 14 -Current Size (cm) - Depth 0.1 -Total Square Cm 140 -Photo Taken No -Epithelialization None Present -Tunneling No -Undermining/Tunneling No -Circular Undermining No -Exudate Amt Large -Exudate Type Serous -Wound Margin Flat & Intact -Granulation Amt Large (67-100%) -Granulation Quality Red -Slough/Fibrin Yes -Necrosis Amt Small (1-33%) -Necrotic Tissue Type Adherent Slough -Texture (Martha-wound Skin Appearance) Excoriation Friable Localized Edema -Moisture (Martha-wound Skin Appearance Maceration ) Weeping -Color (Martha-wound Skin Appearance) Erythema Palor -Temperature (Martha-wound Skin No Abnormality Appearance) (Pt Warm) -Tenderness on Palpation (Martha-wound No Skin Appearance) -Ulcer Cleansing Wound Cleanser -Foul Odor after Cleansing No -Anesthetic Used 4% Lidocaine Solution #13 R Med Heel -Combined with other wound No -Current Size (cm) - Length 1.7 -Current Size (cm) - Width 2 -Current Size (cm) - Depth 0.1 -Total Square Cm 3.4 -Photo Taken No -Epithelialization None Present -Tunneling No -Undermining/Tunneling No -Circular Undermining No -Exudate Amt Medium -Exudate Type Serous -Wound Margin Flat & Intact -Granulation Amt Large (67-100%) -Granulation Quality [place] Red -Slough/Fibrin Yes -Necrosis Amt Small (1-33%) -Necrotic Tissue Type Adherent Slough -Texture (Martha-wound Skin Appearance) Assessed Excoriation Friable Scarring -Moisture (Martha-wound Skin Appearance Assessed ) Maceration Weeping -Color (Martha-wound Skin Appearance) Assessed Palor -Temperature (Martha-wound Skin No Abnormality Appearance) (Pt Warm) -Tenderness on Palpation (Martha-wound No Skin Appearance) -Ulcer Cleansing Wound Cleanser -Foul Odor after Cleansing No -Anesthetic Used 4% Lidocaine Solution #21 Right Foot-Toes w/Metatarsal Head circumfrential -Combined with other wound No -Current Size (cm) - Length 12 -Current Size (cm) - Width 80.5 -Current Size (cm) - Depth 0.2 -Total Square Cm 966.0 -Photo Taken No -Epithelialization None Present -Tunneling No -Undermining/Tunneling No -Circular Undermining No -Exudate Amt Large -Exudate Type Serous -Wound Margin Flat & Intact -Granulation Amt Large (67-100%) -Granulation Quality Red -Slough/Fibrin Yes -Necrosis Amt Small (1-33%) -Necrotic Tissue Type Adherent Slough -Texture (Martha-wound Skin Appearance) Excoriation Friable Scarring -Moisture (Martha-wound Skin Appearance Maceration ) Weeping -Color (Martha-wound Skin Appearance) Erythema Palor -Temperature (Martha-wound Skin No Abnormality Appearance) (Pt Warm) -Tenderness on Palpation (Martha-wound No Skin Appearance) -Ulcer Cleansing Wound Cleanser -Foul Odor after Cleansing No -Anesthetic Used 4% Lidocaine Solution Musculoskeletal: No Tenderness to Palpation of Joints or Extremities, Muscle Wasting, - - No fluctuance on palpation bilateral Neurological: - - Lack of epicritic sensation to light touch consistent with neuropathy Psych/Mental Status: Normal Affect, Appropriate Debridement Note Post-Debridement Measurements/Treatment WC - Nurse 2 - General Ulcer CM Notes Start: 10/05/18 10:07 Freq: Status: Active Protocol: Activity Type Activity Date Activity User E-Sign Co-Sign Detail Recorded Client Recorded Date Recorded By Document 10/05/18 10:33 DL [id number] 10/05/18 10:49 DL 10/05/18 10:33 Wound Center Nurse 2 #22 left stump -Time 10:35 -Correct Patient Yes -Correct Side, Site, Position Yes -Correct Procedure Yes -Procedure Performed Yes -Type of Procedure Debridement -Clinical Debridement Subcutaneous -Post Debridement Size (cm) - Length 0.2 -Post Debridement Size (cm) - Width 0.2 -Post Debridement Size (cm) - Depth 0.1 -Total Square Cm 0.04 -Wound/Ulcer Outcome Amputation -Ulcer Cleansing Rinsed/ Irrigated with Saline -Foul Odor after Cleansing No -Bioengineered Tissue Yes -Type of bioengineered Tissue Apligraf -Expiration Date 10/14/18 -Product Lot Number [id number] -Percent Used 50 -Saline Lot Number [id number] -Treatment Response Procedure Tolerated Well #13 R Med Heel -Time 10:36 -Correct Patient Yes -Correct Side, Site, Position Yes -Correct Procedure Yes -Procedure Performed Yes -Type of Procedure Debridement -Clinical Debridement Subcutaneous -Post Debridement Size (cm) - Length 0.2 -Post Debridement Size (cm) - Width 0.2 -Post Debridement Size (cm) - Depth 0.1 -Total Square Cm 0.04 -Wound/Ulcer Outcome Not Healed -Ulcer Cleansing Rinsed/ Irrigated with Saline -Foul Odor after Cleansing No -Bioengineered Tissue Yes -Type of bioengineered Tissue Apligraf -Expiration Date 10/14/18 -Percent Used 50 -Saline Lot Number [id number] -Bleeding Controlled with Pressure -Offloading Yes -Treatment Response Procedure Tolerated Well #21 Right Foot-Toes w/Metatarsal Head circumfrential -Time 10:36 -Correct Patient Yes -Correct Side, Site, Position Yes -Correct Procedure Yes -Procedure Performed Yes -Type of Procedure Debridement -Clinical Debridement Subcutaneous -Post Debridement Size (cm) - Length 5.1 -Post Debridement Size (cm) - Width 3.9 -Post Debridement Size (cm) - Depth 0.2 -Total Square Cm 19.89 -Wound/Ulcer Outcome Not Healed -Ulcer Cleansing Rinsed/ Irrigated with Saline -Foul Odor after Cleansing No -Bioengineered Tissue Yes -Type of bioengineered Tissue Apligraf -Expiration Date 10/14/18 -Product Lot Number [id number] -Percent Used 50 -Saline Lot Number [id number] -Bleeding Controlled with Pressure -Offloading Yes -Treatment Response Procedure Tolerated Well Pain Scale: 0-10 Numeric Is Patient Pain Free? Yes Wound debrided: stump leg site Laterality: Left Wound Grade/Stage: grade 1 Type of Debridement: Excisional debridement Anesthesia Used: 5% Lidocaine Gel Depth: in the subcutaneous layer Percentage of wound debrided: 100 Instrument Used: #15 blade Tissue Removed: fibrous, devitalized subcutaneous, biofilm, slough Severity: Fat Layer Exposed Amount of bleeding with debridement: Mild Bleeding Controlled with: Pressure Patient tolerated procedure well - Additional Wound Wound debrided: heel Laterality: Right Wound Grade/Stage: grade 3 Type of Debridement: Excisional debridement Anesthesia Used: 5% Lidocaine Gel Depth: in the subcutaneous layer Percentage of wound debrided: 100 Instrument Used: #15 blade Tissue Removed: fibrous, devitalized subcutaneous, biofilm, slough Severity: Fat Layer Exposed Amount of bleeding with debridement: Mild Bleeding Controlled with: Pressure Patient tolerated procedure: Patient tolerated procedure well - Additional Wound Wound debrided: toes Laterality: Right Wound Grade/Stage: grade 1 Type of Debridement: Excisional debridement Anesthesia Used: 5% Lidocaine Gel Depth: in the subcutaneous layer Percentage of wound debrided: 100 Instrument Used: #15 blade Tissue Removed: fibrous, devitalized subcutaneous, biofilm, slough Severity: Fat Layer Exposed Amount of bleeding with debridement: Mild Bleeding Controlled with: Pressure Patient tolerated procedure: Patient tolerated procedure well Assessment/Plan Assessment: ulcer right forefoot stable. Left below-knee amputation with fat tissue exposed stable. Lymphedema. Chronic lower extremity edema and venous insufficiency. Morbid obesity. Type 2 diabetes uncontrolled with peripheral neuropathy. CKD. Hypertension. Malnutrition. Delayed wound healing. Nonadherence to treatment plan Plan: I reviewed and discussed his case. Debridement done as documented above in the clinical panel to the right toe region, right heel, and left leg. Aquacel Ag was additionally applied to right toe site. to change every 1-3 days with home health. Additional apligraft was applied according to standard protocol after perforated to the right heel and the anterior part of the left stump. The indications, planned procedure, and anticipated healing time and management were discussed in detail. He was advised to leave the site clean dry and intact until follow-up visit; it is okay for half-way health to change the outer secondary dressing if strikethrough drainage is noted. Continue compression left with 3M2L. To avoid trauma and cold exposure to the right foot. He was re-referred to vascular surgeon Dr. Nixon who treated him for PAD and lymphedema. The current recommendation is to continue with strict compression with lymphedema pumps. Per patient, arterial duplex was performed during his last vascular surgery follow-up, and he appears to have continued perfusion to the right lower extremity and no vascular intervention is planned at this time. Continue protein suppplements and increased protein in diet. It is noted he did well with hyperbaric oxygen therapy sessions. I also recommend a lymphedema clinic. He went approximately 3 years ago and found this to be very helpful. He no longer has his thigh-high compression garments that were arranged for him during this last session. Farrow wrap order will be processed at this time for the right lower extremity for better edema control there is a lymphedema clinic in [place] and his information was sent over. They can only see him once he is d/c from home health; this is noted. To keep pressure off of his left below-knee amputation stump site. He was educated again that placing the stump site directly on a pillow and crate is not offloading. This is reviewed again today and he reports he may or may not make an adjustment this upcoming week to address this. Bilateral offloading donut pillow prescriptions were provided today and he was advised to apply the right 1 to the lower limb taking care to make sure new pressure ulcers not form in the leg site. The left side will be applied proximal to the stump site and possibly in the thigh depending on how this can fit properly and safely. He is at risk for continued limb loss and due to his condition and he understands. Follow up in 1 week with at the wound healing center or call sooner if he has any questions or concerns. If lack of improvement still noted with Apligraf he continues to proceed with Surendra noncompliance, a palliative plan will be considered and discussed.
[2018-10-19 10:06] VITALS: BP 142/69; PULSE 88; RESP 16; TEMP 36.9; BMI 45.6
--- NOTE | 2018-10-19 11:24 | PCM.WC.PN ---
(1) Ulcer of left lower extremity with fat layer exposed Status: Chronic Current Visit: Yes Code(s): L97.922 - Non-pressure chronic ulcer of unspecified part of left lower leg with fat layer exposed (2) Chronic ulcer of right foot with fat layer exposed Status: Chronic Current Visit: Yes Code(s): L97.512 - Non-pressure chronic ulcer of other part of right foot with fat layer exposed (3) Lymphedema Status: Chronic Current Visit: Yes Code(s): I89.0 - Lymphedema, not elsewhere classified (4) Type 2 diabetes mellitus with diabetic polyneuropathy Status: Chronic Current Visit: Yes Code(s): E11.42 - Type 2 diabetes mellitus with diabetic polyneuropathy (5) Delayed wound healing Status: Chronic Current Visit: Yes Code(s): T14.8 - Other injury of unspecified body region (6) Malnutrition Status: Chronic Current Visit: Yes Code(s): E46 - Unspecified protein-calorie malnutrition Type of Wound Date of Service: 10/19/18 Chief Complaint: 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 Right toe ulcers. left stump ulcers History of Wound: 58-year-old white male returns to clinic for follow-up of bilateral leg ulcers and right foot ulcers. He denies fever, chill, nausea, vomiting, loss of appetite. He had multiple advanced wound care product applications. He presents in a wheelchair today. He requests a prescription for a wheelchair cushion. He denies redness. He kept bilateral Apligraf in place this past week as advised. He denies older or redness. He continues to struggle with offloading the left leg ulcer site as advised. Progress of Wound: Stable right toe and heel areas. Left stump site ulcer stable - Physical Exam Vital Signs Temp Pulse Resp BP 98.4 F 88 16 142/69 H 10/19/18 10:06 10/19/18 10:06 10/19/18 10:06 10/19/18 10:06 General: Alert, Oriented x3, Cooperative Extremities: No cyanosis, Capillary Refill Less than 3 Seconds, No Calf Tenderness - Negative Harry and Badillo sign right, Diminished Peripheral Pulses, Edema - Bilateral lower extremities, - - left below-knee amputation Skin: Ulcer/ Wound - No purulence, erythema, odor, streaking, necrosis or deep tissue exposure bilateral. The Apligraf that were applied last week to the left below-knee amputation stump site as well as the right heel remain intact with Steri-Strips and wound veil intact. The peripheral skin is hairless and atrophic bilateral Wound Measurements and Assessment WC - Nurse 1 - General Ulcer Measurement Start: 10/05/18 10:07 Freq: Status: Active Protocol: Activity Type Activity Date Activity User E-Sign Co-Sign Detail Recorded Client Recorded Date Recorded By Document 10/19/18 10:06 [id number] 10/19/18 10:20 10/19/18 10:06 Wound Center Nurse 1 [Ulcer Assessment] #21 Right Foot-Toes w/Metatarsal Head circumfrential -Combined with other wound No -Current Size (cm) - Length 11.7 -Current Size (cm) - Width 8.2 -Current Size (cm) - Depth 0.1 -Total Square Cm 95.94 -Photo Taken No -Epithelialization None Present -Tunneling No -Undermining/Tunneling No -Circular Undermining No -Exudate Amt Medium -Exudate Type Yellow/Green -Wound Margin Distinct, Outline Attached -Granulation Amt Small (1-33%) -Granulation Quality Pale [place] -Slough/Fibrin Yes -Necrosis Amt Medium (34-66%) -Necrotic Tissue Type Adherent Slough -Texture (Martha-wound Skin Appearance) Friable Localized Edema Scarring -Moisture (Martha-wound Skin Appearance Maceration ) -Color (Martha-wound Skin Appearance) Hemosiderin Staining -Temperature (Martha-wound Skin No Abnormality Appearance) (Pt Warm) -Tenderness on Palpation (Martha-wound No Skin Appearance) -Ulcer Cleansing Rinsed/ Irrigated with Saline -Foul Odor after Cleansing No -Anesthetic Used 4% Lidocaine Solution [Edema Assessment] -Lower Limb Edema Present No -Right Calf (cm) 37.2 -Right Ankle (cm) 28 -Left Calf (cm) 47.2 Musculoskeletal: No Tenderness to Palpation of Joints or Extremities, Muscle Wasting Neurological: - - lack of normal epicritic sensation light touch bilateral lower extremities Psych/Mental Status: Normal Affect, Appropriate Debridement Note Post-Debridement Measurements/Treatment WC - Nurse 2 - General Ulcer CM Notes Start: 10/05/18 10:07 Freq: Status: Active Protocol: Activity Type Activity Date Activity User E-Sign Co-Sign Detail Recorded Client Recorded Date Recorded By Document 10/05/18 10:33 DL [id number] 10/05/18 10:49 DL 10/05/18 10:33 Wound Center Nurse 2 #22 left stump -Time 10:35 -Correct Patient Yes -Correct Side, Site, Position Yes -Correct Procedure Yes -Procedure Performed Yes -Type of Procedure Debridement -Clinical Debridement Subcutaneous -Post Debridement Size (cm) - Length 0.2 -Post Debridement Size (cm) - Width 0.2 -Post Debridement Size (cm) - Depth 0.1 -Total Square Cm 0.04 -Wound/Ulcer Outcome Amputation -Ulcer Cleansing Rinsed/ Irrigated with Saline -Foul Odor after Cleansing No -Bioengineered Tissue Yes -Type of bioengineered Tissue Apligraf -Expiration Date 10/14/18 -Product Lot Number [id number] -Percent Used 50 -Saline Lot Number [id number] -Treatment Response Procedure Tolerated Well #13 R Med Heel -Time 10:36 -Correct Patient Yes -Correct Side, Site, Position Yes -Correct Procedure Yes -Procedure Performed Yes -Type of Procedure Debridement -Clinical Debridement Subcutaneous -Post Debridement Size (cm) - Length 0.2 -Post Debridement Size (cm) - Width 0.2 -Post Debridement Size (cm) - Depth 0.1 -Total Square Cm 0.04 -Wound/Ulcer Outcome Not Healed -Ulcer Cleansing Rinsed/ Irrigated with Saline -Foul Odor after Cleansing No -Bioengineered Tissue Yes -Type of bioengineered Tissue Apligraf -Expiration Date 10/14/18 -Percent Used 50 -Saline Lot Number [id number] -Bleeding Controlled with Pressure -Offloading Yes -Treatment Response Procedure Tolerated Well #21 Right Foot-Toes w/Metatarsal Head circumfrential -Time 10:36 -Correct Patient Yes -Correct Side, Site, Position Yes -Correct Procedure Yes -Procedure Performed Yes -Type of Procedure Debridement -Clinical Debridement Subcutaneous -Post Debridement Size (cm) - Length 5.1 -Post Debridement Size (cm) - Width 3.9 -Post Debridement Size (cm) - Depth 0.2 -Total Square Cm 19.89 -Wound/Ulcer Outcome Not Healed -Ulcer Cleansing Rinsed/ Irrigated with Saline -Foul Odor after Cleansing No -Bioengineered Tissue Yes -Type of bioengineered Tissue Apligraf -Expiration Date 10/14/18 -Product Lot Number [id number] -Percent Used 50 -Saline Lot Number [id number] -Bleeding Controlled with Pressure -Offloading Yes -Treatment Response Procedure Tolerated Well Pain Scale: 0-10 Numeric Is Patient Pain Free? Yes Wound debrided: toe cluster Laterality: Right Wound Grade/Stage: grade 1 Type of Debridement: Excisional debridement Anesthesia Used: 5% Lidocaine Gel Depth: in the subcutaneous layer Percentage of wound debrided: 100 Instrument Used: #15 blade Tissue Removed: fibrous, devitalized subcutaneous, biofilm, slough Severity: Fat Layer Exposed Amount of bleeding with debridement: Mild Bleeding Controlled with: Pressure Patient tolerated procedure well Assessment/Plan Active Problems Lymphedema (Chronic) Chronic ulcer of right foot with fat layer exposed (Chronic) Ulcer of left lower extremity with fat layer exposed (Chronic) Type 2 diabetes mellitus with diabetic polyneuropathy (Chronic) Delayed wound healing (Chronic) Malnutrition (Chronic) Assessment: ulcer right forefoot stable with fat layer exposed. Right heel ulcer with fat layer exposed. Left below-knee amputation with fat tissue exposed stable. Lymphedema. Chronic lower extremity edema and venous insufficiency. Morbid obesity. Type 2 diabetes uncontrolled with peripheral neuropathy. CKD. Hypertension. Malnutrition. Delayed wound healing. Nonadherence to treatment plan Plan: I reviewed and discussed his case. Debridement done as documented above in the clinical panel to the right toe region. the Apligraf that were applied to the right heel and left below knee amputation stump site remains intact. Aquacel Ag was additionally applied over these sites as a part of the secondary dressing. An additional interdigital gauze was applied to the right 1st webspace. A new Apligraf was applied to the right toe region according to standard protocol after verbal consent was obtained. This was secured in place with a wound veil and Steri-Strips. The indications and purpose were described. This is medically necessary for limb salvage. To keep clean, dry, and intact until follow-up visit. Local anesthetic was not required due to neuropathy and lack of feeling in pain. To change every 1-3 days with home health. Continue compression left with 3M2L. The patency of his previous arterial stent was checked with Dr. Nixon this year, and the current recommendation is to continue with strict compression with lymphedema pumps. Per patient, arterial duplex was performed during his last vascular surgery follow-up, and he appears to have continued perfusion to the right lower extremity and no vascular intervention is planned at this time. Continue protein suppplements and increased protein in diet. It is noted he did well with hyperbaric oxygen therapy sessions. I also recommend a lymphedema clinic. He went approximately 3 years ago and found this to be very helpful. He no longer has his thigh-high compression garments that were arranged for him during this last session. Farrow wrap order will be processed at this time for the right lower extremity for better edema control there is a lymphedema clinic in [place] and his information was sent over. They can only see him once he is d/c from home health; this is noted. To keep pressure off of his left below-knee amputation stump site. He was educated again that placing the stump site directly on a pillow and crate is not offloading. This is reviewed again today and he reports he may or may not make an adjustment this upcoming week to address this. Bilateral offloading donut pillow prescriptions were provided today and he was advised to apply the right 1 to the lower limb taking care to make sure new pressure ulcers not form in the leg site. The left side will be applied proximal to the stump site and possibly in the thigh depending on how this can fit properly and safely. He is at risk for continued limb loss and due to his condition and he understands. Follow up in 1 week with at the wound healing center or call sooner if he has any questions or concerns. If lack of improvement still noted with Apligraf he continues to proceed with Surendra noncompliance, a palliative plan will be considered and discussed.
[2018-10-26 10:17] VITALS: BP 135/65; PULSE 80; RESP 18; TEMP 36.6; BMI 45.6
--- NOTE | 2018-10-26 12:42 | PN.PCM_ITS ---
(1) Ulcer of left lower extremity with fat layer exposed Status: Chronic Current Visit: Yes Code(s): L97.922 - Non-pressure chronic ulcer of unspecified part of left lower leg with fat layer exposed (2) Chronic ulcer of right foot with fat layer exposed Status: Chronic Current Visit: Yes Code(s): L97.512 - Non-pressure chronic ulcer of other part of right foot with fat layer exposed (3) Lymphedema Status: Chronic Current Visit: Yes Code(s): I89.0 - Lymphedema, not elsewhere classified (4) Type 2 diabetes mellitus with diabetic polyneuropathy Status: Chronic Current Visit: Yes Code(s): E11.42 - Type 2 diabetes mellitus with diabetic polyneuropathy (5) Delayed wound healing Status: Chronic Current Visit: Yes Code(s): T14.8 - Other injury of unspecified body region (6) Malnutrition Status: Chronic Current Visit: Yes Code(s): E46 - Unspecified protein- calorie malnutrition Type of Wound Date of Service: 10/26/18 Chief Complaint: 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 Right toe ulcers. left stump ulcers History of Wound: 58-year-old white male returns to clinic for follow-up of bilateral leg ulcers and right foot ulcers. He denies fever, chill, nausea, vomiting, loss of appetite. He had multiple advanced wound care product applications. He presents in a wheelchair today. He requests a prescription for a wheelchair cushion. He denies redness. He kept bilateral Apligraf in place this past week as advised. He denies older or redness. Progress of Wound: Stable right toe and heel areas. Left stump site ulcer stable - Physical Exam Vital Signs Temp Pulse Resp BP 97.8 F 80 18 135/65 H 10/26/18 10:17 10/26/18 10:17 10/26/18 10:17 10/26/18 10:17 General: Alert, Oriented x3, Cooperative, No apparent distress Extremities: No cyanosis, Capillary Refill Less than 3 Seconds, No Calf Tenderness, Diminished Peripheral Pulses, Edema - Lymphedema bilateral lower extremities Skin: Ulcer/ Wound - No purulence, erythema, streaking, odor, infection. Laceration to the right toe area. No longer any granulation tissue noted to the left ulcer stump site; this is some hemorrhagic instead which is an improvement. Peripheral skin is hairless and atrophic bilateral Wound Measurements and Assessment WC - Nurse 1 - General Ulcer Measurement Start: 10/05/18 10:07 Freq: Status: Active Protocol: Activity Type Activity Date Activity User E-Sign Co-Sign Detail Recorded Client Recorded Date Recorded By Document 10/26/18 10:17 MT [id number] 10/26/18 10:33 MT 10/26/18 10:17 Wound Center Nurse 1 [Ulcer Assessment] #22 left stump -Combined with other wound No -Current Size (cm) - Length 12 -Current Size (cm) - Width 12.5 -Current Size (cm) - Depth 0.1 -Total Square Cm 150.0 -Tunneling No -Undermining/Tunneling No -Circular Undermining No -Exudate Amt Medium -Exudate Type Serosanguineous -Wound Margin Distinct, Outline Attached -Granulation Amt Large (67-100%) -Granulation Quality Red -Slough/Fibrin Yes -Necrosis Amt Small (1-33%) -Necrotic Tissue Type Adherent Slough -Structure Exposed N/A -Texture (Martha-wound Skin Appearance) Assessed -Moisture (Martha-wound Skin Appearance Assessed ) Maceration -Color (Martha-wound Skin Appearance) Assessed -Temperature (Martha-wound Skin No Abnormality Appearance) (Pt Warm) -Tenderness on Palpation (Martha-wound No Skin Appearance) -Ulcer Cleansing Wound Cleanser -Foul Odor after Cleansing No -Anesthetic Used 4% Lidocaine Solution #13 R Med Heel -Combined with other wound No -Current Size (cm) - Length 2 -Current Size (cm) - Width 2.5 -Current Size (cm) - Depth 0.2 -Total Square Cm 5.0 -Tunneling No -Undermining/Tunneling No -Circular Undermining No -Exudate Amt Medium -Exudate Type Serosanguineous -Wound Margin Distinct, Outline Attached -Granulation Amt Large (67-100%) -Granulation Quality [place] Red -Slough/Fibrin Yes -Necrosis Amt Small (1-33%) -Necrotic Tissue Type Adherent Slough -Structure Exposed N/A -Texture (Martha-wound Skin Appearance) Assessed -Moisture (Martha-wound Skin Appearance Maceration ) -Color (Martha-wound Skin Appearance) Assessed -Temperature (Martha-wound Skin No Abnormality Appearance) (Pt Warm) -Tenderness on Palpation (Martha-wound No Skin Appearance) -Ulcer Cleansing Wound Cleanser -Foul Odor after Cleansing No -Anesthetic Used 4% Lidocaine Solution #21 Right Foot-Toes w/Metatarsal Head circumfrential -Combined with other wound No -Current Size (cm) - Length 15.5 -Current Size (cm) - Width 7 -Current Size (cm) - Depth 0.2 -Total Square Cm 108.5 -Tunneling No -Undermining/Tunneling No -Circular Undermining No -Exudate Amt Medium -Exudate Type Serosanguineous -Wound Margin Distinct, Outline Attached -Granulation Amt Medium (34-66%) -Granulation Quality [place] -Slough/Fibrin Yes -Necrosis Amt Medium (34-66%) -Necrotic Tissue Type Adherent Slough -Structure Exposed N/A -Texture (Martha-wound Skin Appearance) No Abnormality -Moisture (Martha-wound Skin Appearance Maceration ) -Color (Martha-wound Skin Appearance) Assessed -Temperature (Martha-wound Skin No Abnormality Appearance) (Pt Warm) -Tenderness on Palpation (Martha-wound No Skin Appearance) -Ulcer Cleansing Wound Cleanser -Foul Odor after Cleansing No -Anesthetic Used 4% Lidocaine Solution [Edema Assessment] -Lower Limb Edema Present Yes -Right Calf (cm) 36 -Right Ankle (cm) 28 -Left Calf (cm) 43 WC - Nurse 2 - General Ulcer CM Notes Start: 10/05/18 10:07 Freq: Status: Active Protocol: Activity Type Activity Date Activity User E-Sign Co-Sign Detail Recorded Client Recorded Date Recorded By Document 10/26/18 10:53 AN [id number] 10/26/18 10:58 AN 10/26/18 10:53 Wound Center Nurse 2 [Procedure/Treatment] #22 left stump -Time 10:54 -Correct Patient Yes -Correct Side, Site, Position Yes -Correct Procedure Yes -Procedure Performed No -Post Debridement Size (cm) - Length 12 -Post Debridement Size (cm) - Width 12.5 -Post Debridement Size (cm) - Depth 0.1 -Total Square Cm 150.0 -Wound/Ulcer Outcome Not Healed -Foul Odor after Cleansing No -Bleeding Controlled with NA -Treatment Response Procedure Tolerated Well #13 R Med Heel -Time 10:54 -Correct Patient Yes -Correct Side, Site, Position Yes -Correct Procedure Yes -Procedure Performed Yes -Type of Procedure Debridement -Clinical Debridement Subcutaneous -Post Debridement Size (cm) - Length 2.1 -Post Debridement Size (cm) - Width 2.6 -Post Debridement Size (cm) - Depth 0.2 -Total Square Cm 5.46 -Wound/Ulcer Outcome Not Healed -Ulcer Cleansing Rinsed/ Irrigated with Saline -Bleeding Controlled with Pressure -Treatment Response Procedure Tolerated Well #21 Right Foot-Toes w/Metatarsal Head circumfrential -Time 10:55 -Correct Patient Yes -Correct Side, Site, Position Yes -Correct Procedure Yes -Procedure Performed Yes -Type of Procedure Debridement -Clinical Debridement Subcutaneous -Post Debridement Size (cm) - Length 15.6 -Post Debridement Size (cm) - Width 7.1 -Post Debridement Size (cm) - Depth 0.2 -Total Square Cm 110.76 -Wound/Ulcer Outcome Not Healed -Bleeding Controlled with Pressure -Treatment Response Procedure Tolerated Well [See Physician Procedure note for Specifics] Pain Scale: 0-10 Numeric [Pain] -Is Patient Pain Free? Yes Musculoskeletal: No Tenderness to Palpation of Joints or Extremities, Muscle Wasting, - - Left below-knee amputation Neurological: - - Lack of normal epicritic sensation light touch consistent with neuropathy bilateral Psych/Mental Status: Normal Affect, Appropriate Debridement Note Post-Debridement Measurements/Treatment WC - Nurse 2 - General Ulcer CM Notes Start: 10/05/18 10:07 Freq: Status: Active Protocol: Activity Type Activity Date Activity User E-Sign Co-Sign Detail Recorded Client Recorded Date Recorded By Document 10/05/18 10:33 DL [id number] 10/05/18 10:49 DL Document 10/26/18 10:53 AN [id number] 10/26/18 10:58 AN 10/05/18 10/26/18 10:33 10:53 Wound Center Nurse 2 #22 left stump -Time 10:35 10:54 -Correct Patient Yes Yes -Correct Side, Site, Position Yes Yes -Correct Procedure Yes Yes -Procedure Performed Yes No -Type of Procedure Debridement -Clinical Debridement Subcutaneous -Post Debridement Size (cm) - Length 0.2 12 -Post Debridement Size (cm) - Width 0.2 12.5 -Post Debridement Size (cm) - Depth 0.1 0.1 -Total Square Cm 0.04 150.0 -Wound/Ulcer Outcome Amputation Not Healed -Ulcer Cleansing Rinsed/ Irrigated with Saline -Foul Odor after Cleansing No No -Bioengineered Tissue Yes -Type of bioengineered Tissue Apligraf -Expiration Date 10/14/18 -Product Lot Number [id number] -Percent Used 50 -Saline Lot Number [id number] -Bleeding Controlled with NA -Treatment Response Procedure Procedure Tolerated Well Tolerated Well #13 R Med Heel -Time 10:36 10:54 -Correct Patient Yes Yes -Correct Side, Site, Position Yes Yes -Correct Procedure Yes Yes -Procedure Performed Yes Yes -Type of Procedure Debridement Debridement -Clinical Debridement Subcutaneous Subcutaneous -Post Debridement Size (cm) - Length 0.2 2.1 -Post Debridement Size (cm) - Width 0.2 2.6 -Post Debridement Size (cm) - Depth 0.1 0.2 -Total Square Cm 0.04 5.46 -Wound/Ulcer Outcome Not Healed Not Healed -Ulcer Cleansing Rinsed/ Rinsed/ Irrigated with Irrigated with Saline Saline -Foul Odor after Cleansing No -Bioengineered Tissue Yes -Type of bioengineered Tissue Apligraf -Expiration Date 10/14/18 -Percent Used 50 -Saline Lot Number [id number] -Bleeding Controlled with Pressure Pressure -Offloading Yes -Treatment Response Procedure Procedure Tolerated Well Tolerated Well #21 Right Foot-Toes w/Metatarsal Head circumfrential -Time 10:36 10:55 -Correct Patient Yes Yes -Correct Side, Site, Position Yes Yes -Correct Procedure Yes Yes -Procedure Performed Yes Yes -Type of Procedure Debridement Debridement -Clinical Debridement Subcutaneous Subcutaneous -Post Debridement Size (cm) - Length 5.1 15.6 -Post Debridement Size (cm) - Width 3.9 7.1 -Post Debridement Size (cm) - Depth 0.2 0.2 -Total Square Cm 19.89 110.76 -Wound/Ulcer Outcome Not Healed Not Healed -Ulcer Cleansing Rinsed/ Irrigated with Saline -Foul Odor after Cleansing No -Bioengineered Tissue Yes -Type of bioengineered Tissue Apligraf -Expiration Date 10/14/18 -Product Lot Number [id number] -Percent Used 50 -Saline Lot Number [id number] -Bleeding Controlled with Pressure Pressure -Offloading Yes -Treatment Response Procedure Procedure Tolerated Well Tolerated Well Pain Scale: 0-10 Numeric Is Patient Pain Free? Yes Yes Wound debrided: forefoot Laterality: Right Wound Grade/Stage: grade 1 Type of Debridement: Excisional debridement Anesthesia Used: 5% Lidocaine Gel Depth: in the subcutaneous layer Percentage of wound debrided: 10 Instrument Used: #15 blade Tissue Removed: fibrous, devitalized subcutaneous, biofilm, slough Severity: Fat Layer Exposed Amount of bleeding with debridement: Mild Bleeding Controlled with: Pressure Patient tolerated procedure well - Additional Wound Wound debrided: heel Laterality: Right Wound Grade/Stage: grade 3 Type of Debridement: Excisional debridement Anesthesia Used: 5% Lidocaine Gel Depth: in the subcutaneous layer Percentage of wound debrided: 100 Instrument Used: #15 blade Tissue Removed: fibrous, devitalized subcutaneous, biofilm, slough Severity: Fat Layer Exposed Amount of bleeding with debridement: Mild Bleeding Controlled with: Pressure Patient tolerated procedure: Patient tolerated procedure well Assessment/Plan Active Problems Lymphedema (Chronic) Chronic ulcer of right foot with fat layer exposed (Chronic) Ulcer of left lower extremity with fat layer exposed (Chronic) Type 2 diabetes mellitus with diabetic polyneuropathy (Chronic) Delayed wound healing (Chronic) Malnutrition (Chronic) Assessment: ulcer right forefoot stable with fat layer exposed. Right heel ulcer with fat layer exposed. Left below-knee amputation with skin tissue exposed stable. Lymphedema. Chronic lower extremity edema and venous insufficiency. Morbid obesity. Type 2 diabetes uncontrolled with peripheral neuropathy. CKD. Hypertension. Malnutrition. Delayed wound healing. Nonadherence to treatment plan Plan: I reviewed and discussed his case. Debridement done as documented above in the clinical panel to the right toe region. Aquacel Ag was additionally applied over all these sites with additional interdigital gauze placement. Apligraf application will be considered next week. To change every 1-3 days with home health. Continue compression left with 3M2L. The patency of his previous arterial stent was checked with Dr. Nixon this year, and the current recommendation is to continue with strict compression with lymphedema pumps. Per patient, arterial duplex was performed during his last vascular surgery follow-up, and he appears to have continued perfusion to the right lower extremity and no vascular intervention is planned at this time. Continue protein suppplements and increased protein in diet. I also recommend a lymphedema clinic. He went approximately 3 years ago and found this to be very helpful. He no longer has his thigh-high compression garments that were arranged for him during this last session. [place] wrap order will be processed at this time for the right lower extremity for better edema control there is a lymphedema clinic in [place] and his information was sent over. They can only see him once he is d/c from home health; this is noted. To keep pressure off of his left below-knee amputation stump site. He was educated again that placing the stump site directly on a pillow and crate is not offloading. This is reviewed again today and he reports he may or may not make an adjustment this upcoming week to address this. Bilateral offloading donut pillow prescriptions were provided today and he was advised to apply the right lower limb taking care to make sure new pressure ulcers not form in the leg site. The left side will be applied proximal to the stump site and possibly in the thigh depending on how this can fit properly and safely. He is at risk for continued limb loss and due to his condition and he understands. It is noted he did not start this yet and this is consistent with continued noncompliance. Follow up in 1 week with at the wound healing center or call sooner if he has any questions or concerns.
[2018-11-02 11:30] VITALS: BP 124/69; PULSE 81; RESP 18; TEMP 36.3; BMI 45.6
--- NOTE | 2018-11-02 16:21 | PCM.WC.PN ---
(1) Ulcer of left lower extremity, limited to breakdown of skin Status: Chronic Current Visit: Yes Code(s): L97.921 - Non-pressure chronic ulcer of unspecified part of left lower leg limited to breakdown of skin (2) Chronic ulcer of right foot with fat layer exposed Status: Chronic Current Visit: Yes Code(s): L97.512 - Non-pressure chronic ulcer of other part of right foot with fat layer exposed (3) Lymphedema Status: Chronic Current Visit: Yes Code(s): I89.0 - Lymphedema, not elsewhere classified (4) Type 2 diabetes mellitus with diabetic polyneuropathy Status: Chronic Current Visit: Yes Code(s): E11.42 - Type 2 diabetes mellitus with diabetic polyneuropathy (5) Delayed wound healing Status: Chronic Current Visit: Yes Code(s): T14.8 - Other injury of unspecified body region (6) Malnutrition Status: Chronic Current Visit: Yes Code(s): E46 - Unspecified protein-calorie malnutrition Type of Wound Date of Service: 11/02/18 Chief Complaint: 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 Right toe ulcers. left stump ulcers History of Wound: 58-year-old white male returns to clinic for follow-up of bilateral leg ulcers and right foot ulcers. He denies fever, chill, nausea, vomiting, loss of appetite. He had multiple advanced wound care product applications. He denies redness. He has a new ulcer to his right outside leg that he reports first occurred as a blister between 1 to 2 weeks ago. He denies any known trauma. Progress of Wound: Stable right toe and heel areas. Left stump site ulcer stable. New ulcer right lateral leg - Physical Exam Vital Signs Temp Pulse Resp BP 97.3 F L 81 18 124/69 H 11/02/18 11:30 11/02/18 11:30 11/02/18 11:30 11/02/18 11:30 General: Alert, Oriented x3, Cooperative, No apparent distress Extremities: No cyanosis, Capillary Refill Less than 3 Seconds, No Calf Tenderness - Negative Harry and Badillo sign bilateral, Diminished Peripheral Pulses, Edema - Bilateral lower extremities consistent with lymphedema, - - Left below-knee amputation Skin: Ulcer/ Wound - No purulence, erythema, streaking, odor, or infection. Some hemorrhagic tissue only noted to the left below-knee amputation stump site and subcutaneous exposed to all other ulcer sites. The peripheral skin is hairless and atrophic with hyperpigmentation Wound Measurements and Assessment WC - Nurse 1 - General Ulcer Measurement Start: 10/05/18 10:07 Freq: Status: Active Protocol: Activity Type Activity Date Activity User E-Sign Co-Sign Detail Recorded Client Recorded Date Recorded By Document 11/02/18 11:[address] [facility] [id number] 11/02/18 11:[address] [facility] 11/02/18 11:30 Wound Center Nurse 1 [Ulcer Assessment] #22 left stump -Combined with other wound No -Current Size (cm) - Length 8.5 -Current Size (cm) - Width 9 -Current Size (cm) - Depth 0.1 -Total Square Cm 76.5 -Photo Taken No -Epithelialization Small 1-33% -Tunneling No -Undermining/Tunneling No -Circular Undermining No -Exudate Amt Small -Exudate Type Serous -Wound Margin Flat & Intact -Granulation Amt Large (67-100%) -Granulation Quality Pale [place] -Slough/Fibrin No -Necrosis Amt None Present (0 %) -Texture (Martha-wound Skin Appearance) Assessed Scarring -Moisture (Martha-wound Skin Appearance Assessed ) Dry/Scaly -Color (Martha-wound Skin Appearance) Assessed -Temperature (Martha-wound Skin No Abnormality Appearance) (Pt Warm) -Tenderness on Palpation (Martha-wound No Skin Appearance) -Ulcer Cleansing Wound Cleanser -Foul Odor after Cleansing No -Anesthetic Used 4% Lidocaine Solution #13 R Med Heel -Combined with other wound No -Current Size (cm) - Length 2.2 -Current Size (cm) - Width 2 -Current Size (cm) - Depth 0.1 -Total Square Cm 4.4 -Photo Taken No -Epithelialization None Present -Tunneling No -Undermining/Tunneling No -Circular Undermining No -Exudate Amt Medium -Exudate Type Serosanguineous -Wound Margin Distinct, Outline Attached -Granulation Amt Medium (34-66%) -Granulation Quality Red -Slough/Fibrin Yes -Necrosis Amt Medium (34-66%) -Necrotic Tissue Type Adherent Slough -Texture (Martha-wound Skin Appearance) Assessed Callus Scarring -Moisture (Martha-wound Skin Appearance Assessed ) Dry/Scaly -Color (Martha-wound Skin Appearance) Assessed -Temperature (Martha-wound Skin No Abnormality Appearance) (Pt Warm) -Tenderness on Palpation (Martha-wound No Skin Appearance) -Ulcer Cleansing Wound Cleanser -Foul Odor after Cleansing No -Anesthetic Used 4% Lidocaine Solution #21 Right Foot-Toes w/Metatarsal Head circumfrential -Combined with other wound No -Current Size (cm) - Length 13.2 -Current Size (cm) - Width 8.7 -Current Size (cm) - Depth 0.1 -Total Square Cm 114.84 -Photo Taken No -Epithelialization Small 1-33% -Tunneling No -Undermining/Tunneling No -Circular Undermining No -Exudate Amt Medium -Exudate Type Serous -Wound Margin Flat & Intact -Granulation Amt Large (67-100%) -Granulation Quality Pale [place] -Slough/Fibrin Yes -Necrosis Amt Small (1-33%) -Necrotic Tissue Type Adherent Slough -Texture (Martha-wound Skin Appearance) Assessed Friable Localized Edema -Moisture (Martha-wound Skin Appearance Assessed ) Maceration -Color (Martha-wound Skin Appearance) Assessed Erythema Palor -Temperature (Martha-wound Skin No Abnormality Appearance) (Pt Warm) -Tenderness on Palpation (Martha-wound No Skin Appearance) -Ulcer Cleansing Wound Cleanser -Foul Odor after Cleansing No -Anesthetic Used 4% Lidocaine Solution [Edema Assessment] -Lower Limb Edema Present Yes -Right Calf (cm) 36.2 -Right Ankle (cm) 30 -Left Calf (cm) 48.1 WC - Nurse 2 - General Ulcer CM Notes Start: 10/05/18 10:07 Freq: Status: Active Protocol: Activity Type Activity Date Activity User E-Sign Co-Sign Detail Recorded Client Recorded Date Recorded By Document 11/02/18 11:55 AN [id number] 11/02/18 12:10 AN 11/02/18 11:55 Wound Center Nurse 2 [Procedure/Treatment] #25 RIGHT LATERAL LOWER LEG -Time 12:08 -Correct Patient Yes -Correct Side, Site, Position Yes -Correct Procedure Yes -Procedure Performed Yes -Type of Procedure Debridement -Clinical Debridement Subcutaneous -Post Debridement Size (cm) - Length 0.2 -Post Debridement Size (cm) - Width 0.2 -Post Debridement Size (cm) - Depth 0.1 -Total Square Cm 0.04 -Ulcer Cleansing Wound Cleanser -Foul Odor after Cleansing No -Bioengineered Tissue No -Bleeding Controlled with Pressure -Offloading Yes -Treatment Response Procedure Tolerated Well #22 left stump -Time 12:05 -Correct Patient Yes -Correct Side, Site, Position Yes -Correct Procedure Yes -Procedure Performed No -Post Debridement Size (cm) - Length 8.6 -Post Debridement Size (cm) - Width 9.1 -Post Debridement Size (cm) - Depth 0.1 -Total Square Cm 78.26 -Wound/Ulcer Outcome Amputation -Ulcer Cleansing Rinsed/ Irrigated with Saline -Foul Odor after Cleansing No -Bioengineered Tissue Yes -Type of bioengineered Tissue Apligraf -Bleeding Controlled with Pressure -Offloading Yes -Treatment Response Procedure Tolerated Well #13 R Med Heel -Time 12:06 -Correct Patient Yes -Correct Side, Site, Position Yes -Correct Procedure Yes -Procedure Performed Yes -Type of Procedure Debridement -Clinical Debridement Subcutaneous -Post Debridement Size (cm) - Length 2.3 -Post Debridement Size (cm) - Width 2.1 -Post Debridement Size (cm) - Depth 0.1 -Total Square Cm 4.83 -Wound/Ulcer Outcome Not Healed -Ulcer Cleansing Rinsed/ Irrigated with Saline -Bleeding Controlled with Pressure -Treatment Response Procedure Tolerated Well #21 Right Foot-Toes w/Metatarsal Head circumfrential -Time 12:06 -Correct Patient Yes -Correct Side, Site, Position Yes -Correct Procedure Yes -Procedure Performed Yes -Type of Procedure Debridement -Clinical Debridement Subcutaneous -Post Debridement Size (cm) - Length 13.3 -Post Debridement Size (cm) - Width 8.8 -Post Debridement Size (cm) - Depth 0.1 -Total Square Cm 117.04 -Wound/Ulcer Outcome Not Healed -Ulcer Cleansing Rinsed/ Irrigated with Saline -Foul Odor after Cleansing No -Bioengineered Tissue Yes -Type of bioengineered Tissue Apligraf -Expiration Date 11/02/18 -Product Lot Number [id number] -Percent Used 100 -Saline Lot Number [id number] -Bleeding Controlled with Pressure -Offloading Yes -Treatment Response Procedure Tolerated Well [See Physician Procedure note for Specifics] Musculoskeletal: No Tenderness to Palpation of Joints or Extremities, Muscle Wasting Neurological: - - Lack of epicritic sensation light touch consistent with neuropathy Psych/Mental Status: Normal Affect, Appropriate Debridement Note Post-Debridement Measurements/Treatment WC - Nurse 2 - General Ulcer CM Notes Start: 10/05/18 10:07 Freq: Status: Active Protocol: Activity Type Activity Date Activity User E-Sign Co-Sign Detail Recorded Client Recorded Date Recorded By Document 10/05/18 10:33 DL [id number] 10/05/18 10:49 DL Document 10/26/18 10:53 AN [id number] 10/26/18 10:58 AN Document 11/02/18 11:55 AN [id number] 11/02/18 12:10 AN 10/05/18 10/26/18 11/02/18 10:33 10:53 11:55 Wound Center Nurse 2 #25 RIGHT LATERAL LOWER LEG -Time 12:08 -Correct Patient Yes -Correct Side, Site, Position Yes -Correct Procedure Yes -Procedure Performed Yes -Type of Procedure Debridement -Clinical Debridement Subcutaneous -Post Debridement Size (cm) - Length 0.2 -Post Debridement Size (cm) - Width 0.2 -Post Debridement Size (cm) - Depth 0.1 -Total Square Cm 0.04 -Ulcer Cleansing Wound Cleanser -Foul Odor after Cleansing No -Bioengineered Tissue No -Bleeding Controlled with Pressure -Offloading Yes -Treatment Response Procedure Tolerated Well #22 left stump -Time 10:35 10:54 12:05 -Correct Patient Yes Yes Yes -Correct Side, Site, Position Yes Yes Yes -Correct Procedure Yes Yes Yes -Procedure Performed Yes No No -Type of Procedure Debridement -Clinical Debridement Subcutaneous -Post Debridement Size (cm) - Length 0.2 12 8.6 -Post Debridement Size (cm) - Width 0.2 12.5 9.1 -Post Debridement Size (cm) - Depth 0.1 0.1 0.1 -Total Square Cm 0.04 150.0 78.26 -Wound/Ulcer Outcome Amputation Not Healed Amputation -Ulcer Cleansing Rinsed/ Rinsed/ Irrigated with Irrigated with Saline Saline -Foul Odor after Cleansing No No No -Bioengineered Tissue Yes Yes -Type of bioengineered Tissue Apligraf Apligraf -Expiration Date 10/14/18 -Product Lot Number [id number] -Percent Used 50 -Saline Lot Number [id number] -Bleeding Controlled with NA Pressure -Offloading Yes -Treatment Response Procedure Procedure Procedure Tolerated Well Tolerated Well Tolerated Well #13 R Med Heel -Time 10:36 10:54 12:06 -Correct Patient Yes Yes Yes -Correct Side, Site, Position Yes Yes Yes -Correct Procedure Yes Yes Yes -Procedure Performed Yes Yes Yes -Type of Procedure Debridement Debridement Debridement -Clinical Debridement Subcutaneous Subcutaneous Subcutaneous -Post Debridement Size (cm) - Length 0.2 2.1 2.3 -Post Debridement Size (cm) - Width 0.2 2.6 2.1 -Post Debridement Size (cm) - Depth 0.1 0.2 0.1 -Total Square Cm 0.04 5.46 4.83 -Wound/Ulcer Outcome Not Healed Not Healed Not Healed -Ulcer Cleansing Rinsed/ Rinsed/ Rinsed/ Irrigated with Irrigated with Irrigated with Saline Saline Saline -Foul Odor after Cleansing No -Bioengineered Tissue Yes -Type of bioengineered Tissue Apligraf -Expiration Date 10/14/18 -Percent Used 50 -Saline Lot Number [id number] -Bleeding Controlled with Pressure Pressure Pressure -Offloading Yes -Treatment Response Procedure Procedure Procedure Tolerated Well Tolerated Well Tolerated Well #21 Right Foot-Toes w/Metatarsal Head circumfrential -Time 10:36 10:55 12:06 -Correct Patient Yes Yes Yes -Correct Side, Site, Position Yes Yes Yes -Correct Procedure Yes Yes Yes -Procedure Performed Yes Yes Yes -Type of Procedure Debridement Debridement Debridement -Clinical Debridement Subcutaneous Subcutaneous Subcutaneous -Post Debridement Size (cm) - Length 5.1 15.6 13.3 -Post Debridement Size (cm) - Width 3.9 7.1 8.8 -Post Debridement Size (cm) - Depth 0.2 0.2 0.1 -Total Square Cm 19.89 110.76 117.04 -Wound/Ulcer Outcome Not Healed Not Healed Not Healed -Ulcer Cleansing Rinsed/ Rinsed/ Irrigated with Irrigated with Saline Saline -Foul Odor after Cleansing No No -Bioengineered Tissue Yes Yes -Type of bioengineered Tissue Apligraf Apligraf -Expiration Date 10/14/18 11/02/18 -Product Lot Number [id number] -Percent Used 50 100 -Saline Lot Number [id number] -Bleeding Controlled with Pressure Pressure Pressure -Offloading Yes Yes -Treatment Response Procedure Procedure Procedure Tolerated Well Tolerated Well Tolerated Well Pain Scale: 0-10 Numeric Is Patient Pain Free? Yes Yes Wound debrided: leg stump (at [facility]) Laterality: Left Wound Grade/Stage: grade 1 Type of Debridement: Selective debridement Anesthesia Used: 5% Lidocaine Gel Depth: in the subcutaneous layer Percentage of wound debrided: 100 Instrument Used: #15 blade Tissue Removed: fibrous, devitalized subcutaneous, biofilm, slough Severity: Limited To Skin Breakdown Amount of bleeding with debridement: Mild Bleeding Controlled with: Pressure Patient tolerated procedure well - Additional Wound Wound debrided: toes Laterality: Right - heel Wound Grade/Stage: grade 1 Type of Debridement: Excisional debridement Anesthesia Used: 5% Lidocaine Gel Depth: in the subcutaneous layer Percentage of wound debrided: 100 Instrument Used: #15 blade Tissue Removed: fibrous, devitalized subcutaneous, biofilm, slough Severity: Fat Layer Exposed Amount of bleeding with debridement: Mild Bleeding Controlled with: Pressure Patient tolerated procedure: Patient tolerated procedure well - Additional Wound Wound debrided: heel Laterality: Right Wound Grade/Stage: grade 1 Type of Debridement: Excisional debridement Anesthesia Used: 5% Lidocaine Gel Depth: in the subcutaneous layer Percentage of wound debrided: 100 Instrument Used: #15 blade Tissue Removed: fibrous, devitalized subcutaneous, biofilm, slough Severity: Fat Layer Exposed Amount of bleeding with debridement: Mild Bleeding Controlled with: Pressure Patient tolerated procedure: Patient tolerated procedure well - Additional Wound Wound debrided: lateral leg Laterality: Right Wound Grade/Stage: grade 1 Type of Debridement: Excisional debridement Anesthesia Used: 5% Lidocaine Gel Depth: in the subcutaneous layer Percentage of wound debrided: 100 Instrument Used: #15 blade Tissue Removed: fibrous, devitalized subcutaneous, biofilm, slough Severity: Fat Layer Exposed Amount of bleeding with debridement: Mild Bleeding Controlled with: Pressure Patient tolerated procedure: Patient tolerated procedure well Assessment/Plan Active Problems Ulcer of left lower extremity, limited to breakdown of skin (Chronic) Lymphedema (Chronic) Chronic ulcer of right foot with fat layer exposed (Chronic) Ulcer of left lower extremity with fat layer exposed (Chronic) Type 2 diabetes mellitus with diabetic polyneuropathy (Chronic) Delayed wound healing (Chronic) Malnutrition (Chronic) Assessment: ulcer right forefoot stable with fat layer exposed. Right heel ulcer with fat layer exposed. Left below-knee amputation with skin tissue exposed stable. New right lateral leg with fat layer exposed, no infection. Lymphedema. Chronic lower extremity edema and venous insufficiency. Morbid obesity. Type 2 diabetes uncontrolled with peripheral neuropathy. CKD. Hypertension. Malnutrition. Delayed wound healing. Nonadherence to treatment plan Plan: I reviewed and discussed his case. Debridement done as documented above in the clinical panel to the right toe region. Reviewed his wound healing product, and is applied according to standard protocol today after verbal consent was obtained. The graft was perforated prior to application was further secured with a wound veil and Steri-Strips. He tolerated this well and anesthesia was not required due to his neuropathy. Hemostasis was controlled with pressure. The Apligraf was applied to the left below-knee amputation stump site and the remainder was applied to the right heel and right toe lesser site. The entire product was utilized. This is medically necessary for limb salvage. Aquacel Ag was additionally applied over all these sites with additional interdigital gauze placement including the new right lateral leg ulcer site. To leave the Apligraf in place for 1 week until follow-up next Wednesday. Continue compression left with 3M2L. The patency of his previous arterial stent was checked with Dr. Nixon this year, and the current recommendation is to continue with strict compression with lymphedema pumps. Per patient, arterial duplex was performed during his last vascular surgery follow-up, and he appears to have continued perfusion to the right lower extremity and no vascular intervention is planned at this time. Continue protein suppplements and increased protein in diet. I also recommend a lymphedema clinic. He went approximately 3 years ago and found this to be very helpful. He no longer has his thigh-high compression garments that were arranged for him during this last session. [place] wrap order will be processed at this time for the right lower extremity for better edema control there is a lymphedema clinic in [place] and his information was sent over. They can only see him once he is d/c from home health; this is noted. To keep pressure off of his left below-knee amputation stump site. He was educated again that placing the stump site directly on a pillow and crate is not offloading. This is reviewed again today and he reports he may or may not make an adjustment this upcoming week to address this. Bilateral offloading donut pillow prescriptions were provided today and he was advised to apply the right lower limb taking care to make sure new pressure ulcers not form in the leg site. The left side will be applied proximal to the stump site and possibly in the thigh depending on how this can fit properly and safely. He is at risk for continued limb loss and due to his condition and he understands. It is noted he did not start this yet and this is consistent with continued noncompliance. Follow up in 1 week with at the wound healing center or call sooner if he has any questions or concerns.
--- NOTE | 2018-11-02 16:24 | PN.PCM_ITS ---
(1) Ulcer of left lower extremity, limited to breakdown of skin Status: Chronic Current Visit: Yes Code(s): L97.921 - Non-pressure chronic ulcer of unspecified part of left lower leg limited to breakdown of skin (2) Chronic ulcer of right foot with fat layer exposed Status: Chronic Current Visit: Yes Code(s): L97.512 - Non-pressure chronic ulcer of other part of right foot with fat layer exposed (3) Lymphedema Status: Chronic Current Visit: Yes Code(s): I89.0 - Lymphedema, not elsewhere classified (4) Type 2 diabetes mellitus with diabetic polyneuropathy Status: Chronic Current Visit: Yes Code(s): E11.42 - Type 2 diabetes mellitus with diabetic polyneuropathy (5) Delayed wound healing Status: Chronic Current Visit: Yes Code(s): T14.8 - Other injury of unspecified body region (6) Malnutrition Status: Chronic Current Visit: Yes Code(s): E46 - Unspecified protein- calorie malnutrition Type of Wound Date of Service: 11/02/18 Chief Complaint: 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 Right toe ulcers. left stump ulcers History of Wound: 58-year-old white male returns to clinic for follow-up of bilateral leg ulcers and right foot ulcers. He denies fever, chill, nausea, vomiting, loss of appetite. He had multiple advanced wound care product applications. He denies redness. He has a new ulcer to his right outside leg that he reports first occurred as a blister between 1 to 2 weeks ago. He denies any known trauma. Progress of Wound: Stable right toe and heel areas. Left stump site ulcer stable. New ulcer right lateral leg - Physical Exam Vital Signs Temp Pulse Resp BP 97.3 F L 81 18 124/69 H 11/02/18 11:30 11/02/18 11:30 11/02/18 11:30 11/02/18 11:30 General: Alert, Oriented x3, Cooperative, No apparent distress Extremities: No cyanosis, Capillary Refill Less than 3 Seconds, No Calf Tenderness - Negative Harry and Badillo sign bilateral, Diminished Peripheral Pulses, Edema - Bilateral lower extremities consistent with lymphedema, - - Left below-knee amputation Skin: Ulcer/ Wound - No purulence, erythema, streaking, odor, or infection. Some hemorrhagic tissue only noted to the left below-knee amputation stump site and subcutaneous exposed to all other ulcer sites. The peripheral skin is hairless and atrophic with hyperpigmentation Wound Measurements and Assessment WC - Nurse 1 - General Ulcer Measurement Start: 10/05/18 10:07 Freq: Status: Active Protocol: Activity Type Activity Date Activity User E-Sign Co-Sign Detail Recorded Client Recorded Date Recorded By Document 11/02/18 11:30 [facility] [id number] 11/02/18 11:48 [facility] 11/02/18 11:30 Wound Center Nurse 1 [Ulcer Assessment] #22 left stump -Combined with other wound No -Current Size (cm) - Length 8.5 -Current Size (cm) - Width 9 -Current Size (cm) - Depth 0.1 -Total Square Cm 76.5 -Photo Taken No -Epithelialization Small 1-33% -Tunneling No -Undermining/Tunneling No -Circular Undermining No -Exudate Amt Small -Exudate Type Serous -Wound Margin Flat & Intact -Granulation Amt Large (67-100%) -Granulation Quality Pale [place] -Slough/Fibrin No -Necrosis Amt None Present (0 %) -Texture (Martha-wound Skin Appearance) Assessed Scarring -Moisture (Martha-wound Skin Appearance Assessed ) Dry/Scaly -Color (Martha-wound Skin Appearance) Assessed -Temperature (Martha-wound Skin No Abnormality Appearance) (Pt Warm) -Tenderness on Palpation (Martha-wound No Skin Appearance) -Ulcer Cleansing Wound Cleanser -Foul Odor after Cleansing No -Anesthetic Used 4% Lidocaine Solution #13 R Med Heel -Combined with other wound No -Current Size (cm) - Length 2.2 -Current Size (cm) - Width 2 -Current Size (cm) - Depth 0.1 -Total Square Cm 4.4 -Photo Taken No -Epithelialization None Present -Tunneling No -Undermining/Tunneling No -Circular Undermining No -Exudate Amt Medium -Exudate Type Serosanguineous -Wound Margin Distinct, Outline Attached -Granulation Amt Medium (34-66%) -Granulation Quality Red -Slough/Fibrin Yes -Necrosis Amt Medium (34-66%) -Necrotic Tissue Type Adherent Slough -Texture (Martha-wound Skin Appearance) Assessed Callus Scarring -Moisture (Martha-wound Skin Appearance Assessed ) Dry/Scaly -Color (Martha-wound Skin Appearance) Assessed -Temperature (Martha-wound Skin No Abnormality Appearance) (Pt Warm) -Tenderness on Palpation (Martha-wound No Skin Appearance) -Ulcer Cleansing Wound Cleanser -Foul Odor after Cleansing No -Anesthetic Used 4% Lidocaine Solution #21 Right Foot-Toes w/Metatarsal Head circumfrential -Combined with other wound No -Current Size (cm) - Length 13.2 -Current Size (cm) - Width 8.7 -Current Size (cm) - Depth 0.1 -Total Square Cm 114.84 -Photo Taken No -Epithelialization Small 1-33% -Tunneling No -Undermining/Tunneling No -Circular Undermining No -Exudate Amt Medium -Exudate Type Serous -Wound Margin Flat & Intact -Granulation Amt Large (67-100%) -Granulation Quality Pale [place] -Slough/Fibrin Yes -Necrosis Amt Small (1-33%) -Necrotic Tissue Type Adherent Slough -Texture (Martha-wound Skin Appearance) Assessed Friable Localized Edema -Moisture (Martha-wound Skin Appearance Assessed ) Maceration -Color (Martha-wound Skin Appearance) Assessed Erythema [place] -Temperature (Martha-wound Skin No Abnormality Appearance) (Pt Warm) -Tenderness on Palpation (Martha-wound No Skin Appearance) -Ulcer Cleansing Wound Cleanser -Foul Odor after Cleansing No -Anesthetic Used 4% Lidocaine Solution [Edema Assessment] -Lower Limb Edema Present Yes -Right Calf (cm) 36.2 -Right Ankle (cm) 30 -Left Calf (cm) 48.1 WC - Nurse 2 - General Ulcer CM Notes Start: 10/05/18 10:07 Freq: Status: Active Protocol: Activity Type Activity Date Activity User E-Sign Co-Sign Detail Recorded Client Recorded Date Recorded By Document 11/02/18 11:55 AN [id number] 11/02/18 12:10 AN 11/02/18 11:55 Wound Center Nurse 2 [Procedure/Treatment] #25 RIGHT LATERAL LOWER LEG -Time 12:08 -Correct Patient Yes -Correct Side, Site, Position Yes -Correct Procedure Yes -Procedure Performed Yes -Type of Procedure Debridement -Clinical Debridement Subcutaneous -Post Debridement Size (cm) - Length 0.2 -Post Debridement Size (cm) - Width 0.2 -Post Debridement Size (cm) - Depth 0.1 -Total Square Cm 0.04 -Ulcer Cleansing Wound Cleanser -Foul Odor after Cleansing No -Bioengineered Tissue No -Bleeding Controlled with Pressure -Offloading Yes -Treatment Response Procedure Tolerated Well #22 left stump -Time 12:05 -Correct Patient Yes -Correct Side, Site, Position Yes -Correct Procedure Yes -Procedure Performed No -Post Debridement Size (cm) - Length 8.6 -Post Debridement Size (cm) - Width 9.1 -Post Debridement Size (cm) - Depth 0.1 -Total Square Cm 78.26 -Wound/Ulcer Outcome Amputation -Ulcer Cleansing Rinsed/ Irrigated with Saline -Foul Odor after Cleansing No -Bioengineered Tissue Yes -Type of bioengineered Tissue Apligraf -Bleeding Controlled with Pressure -Offloading Yes -Treatment Response Procedure Tolerated Well #13 R Med Heel -Time 12:06 -Correct Patient Yes -Correct Side, Site, Position Yes -Correct Procedure Yes -Procedure Performed Yes -Type of Procedure Debridement -Clinical Debridement Subcutaneous -Post Debridement Size (cm) - Length 2.3 -Post Debridement Size (cm) - Width 2.1 -Post Debridement Size (cm) - Depth 0.1 -Total Square Cm 4.83 -Wound/Ulcer Outcome Not Healed -Ulcer Cleansing Rinsed/ Irrigated with Saline -Bleeding Controlled with Pressure -Treatment Response Procedure Tolerated Well #21 Right Foot-Toes w/Metatarsal Head circumfrential -Time 12:06 -Correct Patient Yes -Correct Side, Site, Position Yes -Correct Procedure Yes -Procedure Performed Yes -Type of Procedure Debridement -Clinical Debridement Subcutaneous -Post Debridement Size (cm) - Length 13.3 -Post Debridement Size (cm) - Width 8.8 -Post Debridement Size (cm) - Depth 0.1 -Total Square Cm 117.04 -Wound/Ulcer Outcome Not Healed -Ulcer Cleansing Rinsed/ Irrigated with Saline -Foul Odor after Cleansing No -Bioengineered Tissue Yes -Type of bioengineered Tissue Apligraf -Expiration Date 11/02/18 -Product Lot Number [id number] -Percent Used 100 -Saline Lot Number [id number] -Bleeding Controlled with Pressure -Offloading Yes -Treatment Response Procedure Tolerated Well [See Physician Procedure note for Specifics] Musculoskeletal: No Tenderness to Palpation of Joints or Extremities, Muscle Wasting Neurological: - - Lack of epicritic sensation light touch consistent with neuropathy Psych/Mental Status: Normal Affect, Appropriate Debridement Note Post-Debridement Measurements/Treatment WC - Nurse 2 - General Ulcer CM Notes Start: 10/05/18 10:07 Freq: Status: Active Protocol: Activity Type Activity Date Activity User E-Sign Co-Sign Detail Recorded Client Recorded Date Recorded By Document 10/05/18 10:33 DL [id number] 10/05/18 10:49 DL Document 10/26/18 10:53 AN [id number] 10/26/18 10:58 AN Document 11/02/18 11:55 AN [id number] 11/02/18 12:10 AN 10/05/18 10/26/18 11/02/18 10:33 10:53 11:55 Wound Center Nurse 2 #25 RIGHT LATERAL LOWER LEG -Time 12:08 -Correct Patient Yes -Correct Side, Site, Position Yes -Correct Procedure Yes -Procedure Performed Yes -Type of Procedure Debridement -Clinical Debridement Subcutaneous -Post Debridement Size (cm) - Length 0.2 -Post Debridement Size (cm) - Width 0.2 -Post Debridement Size (cm) - Depth 0.1 -Total Square Cm 0.04 -Ulcer Cleansing Wound Cleanser -Foul Odor after Cleansing No -Bioengineered Tissue No -Bleeding Controlled with Pressure -Offloading Yes -Treatment Response Procedure Tolerated Well #22 left stump -Time 10:35 10:54 12:05 -Correct Patient Yes Yes Yes -Correct Side, Site, Position Yes Yes Yes -Correct Procedure Yes Yes Yes -Procedure Performed Yes No No -Type of Procedure Debridement -Clinical Debridement Subcutaneous -Post Debridement Size (cm) - Length 0.2 12 8.6 -Post Debridement Size (cm) - Width 0.2 12.5 9.1 -Post Debridement Size (cm) - Depth 0.1 0.1 0.1 -Total Square Cm 0.04 150.0 78.26 -Wound/Ulcer Outcome Amputation Not Healed Amputation -Ulcer Cleansing Rinsed/ Rinsed/ Irrigated with Irrigated with Saline Saline -Foul Odor after Cleansing No No No -Bioengineered Tissue Yes Yes -Type of bioengineered Tissue Apligraf Apligraf -Expiration Date 10/14/18 -Product Lot Number [id number] -Percent Used 50 -Saline Lot Number [id number] -Bleeding Controlled with NA Pressure -Offloading Yes -Treatment Response Procedure Procedure Procedure Tolerated Well Tolerated Well Tolerated Well #13 R Med Heel -Time 10:36 10:54 12:06 -Correct Patient Yes Yes Yes -Correct Side, Site, Position Yes Yes Yes -Correct Procedure Yes Yes Yes -Procedure Performed Yes Yes Yes -Type of Procedure Debridement Debridement Debridement -Clinical Debridement Subcutaneous Subcutaneous Subcutaneous -Post Debridement Size (cm) - Length 0.2 2.1 2.3 -Post Debridement Size (cm) - Width 0.2 2.6 2.1 -Post Debridement Size (cm) - Depth 0.1 0.2 0.1 -Total Square Cm 0.04 5.46 4.83 -Wound/Ulcer Outcome Not Healed Not Healed Not Healed -Ulcer Cleansing Rinsed/ Rinsed/ Rinsed/ Irrigated with Irrigated with Irrigated with Saline Saline Saline -Foul Odor after Cleansing No -Bioengineered Tissue Yes -Type of bioengineered Tissue Apligraf -Expiration Date 10/14/18 -Percent Used 50 -Saline Lot Number [id number] -Bleeding Controlled with Pressure Pressure Pressure -Offloading Yes -Treatment Response Procedure Procedure Procedure Tolerated Well Tolerated Well Tolerated Well #21 Right Foot-Toes w/Metatarsal Head circumfrential -Time 10:36 10:55 12:06 -Correct Patient Yes Yes Yes -Correct Side, Site, Position Yes Yes Yes -Correct Procedure Yes Yes Yes -Procedure Performed Yes Yes Yes -Type of Procedure Debridement Debridement Debridement -Clinical Debridement Subcutaneous Subcutaneous Subcutaneous -Post Debridement Size (cm) - Length 5.1 15.6 13.3 -Post Debridement Size (cm) - Width 3.9 7.1 8.8 -Post Debridement Size (cm) - Depth 0.2 0.2 0.1 -Total Square Cm 19.89 110.76 117.04 -Wound/Ulcer Outcome Not Healed Not Healed Not Healed -Ulcer Cleansing Rinsed/ Rinsed/ Irrigated with Irrigated with Saline Saline -Foul Odor after Cleansing No No -Bioengineered Tissue Yes Yes -Type of bioengineered Tissue Apligraf Apligraf -Expiration Date 10/14/18 11/02/18 -Product Lot Number [id number] -Percent Used 50 100 -Saline Lot Number [id number] -Bleeding Controlled with Pressure Pressure Pressure -Offloading Yes Yes -Treatment Response Procedure Procedure Procedure Tolerated Well Tolerated Well Tolerated Well Pain Scale: 0-10 Numeric Is Patient Pain Free? Yes Yes Wound debrided: leg stump (at [facility]) Laterality: Left Wound Grade/Stage: grade 1 Type of Debridement: Selective debridement Anesthesia Used: 5% Lidocaine Gel Depth: in the subcutaneous layer Percentage of wound debrided: 100 Instrument Used: #15 blade Tissue Removed: fibrous, devitalized subcutaneous, biofilm, slough Severity: Limited To Skin Breakdown Amount of bleeding with debridement: Mild Bleeding Controlled with: Pressure Patient tolerated procedure well - Additional Wound Wound debrided: toes Laterality: Right - heel Wound Grade/Stage: grade 1 Type of Debridement: Excisional debridement Anesthesia Used: 5% Lidocaine Gel Depth: in the subcutaneous layer Percentage of wound debrided: 100 Instrument Used: #15 blade Tissue Removed: fibrous, devitalized subcutaneous, biofilm, slough Severity: Fat Layer Exposed Amount of bleeding with debridement: Mild Bleeding Controlled with: Pressure Patient tolerated procedure: Patient tolerated procedure well - Additional Wound Wound debrided: heel Laterality: Right Wound Grade/Stage: grade 1 Type of Debridement: Excisional debridement Anesthesia Used: 5% Lidocaine Gel Depth: in the subcutaneous layer Percentage of wound debrided: 100 Instrument Used: #15 blade Tissue Removed: fibrous, devitalized subcutaneous, biofilm, slough Severity: Fat Layer Exposed Amount of bleeding with debridement: Mild Bleeding Controlled with: Pressure Patient tolerated procedure: Patient tolerated procedure well - Additional Wound Wound debrided: lateral leg Laterality: Right Wound Grade/Stage: grade 1 Type of Debridement: Excisional debridement Anesthesia Used: 5% Lidocaine Gel Depth: in the subcutaneous layer Percentage of wound debrided: 100 Instrument Used: #15 blade Tissue Removed: fibrous, devitalized subcutaneous, biofilm, slough Severity: Fat Layer Exposed Amount of bleeding with debridement: Mild Bleeding Controlled with: Pressure Patient tolerated procedure: Patient tolerated procedure well Assessment/Plan Active Problems Ulcer of left lower extremity, limited to breakdown of skin (Chronic) Lymphedema (Chronic) Chronic ulcer of right foot with fat layer exposed (Chronic) Ulcer of left lower extremity with fat layer exposed (Chronic) Type 2 diabetes mellitus with diabetic polyneuropathy (Chronic) Delayed wound healing (Chronic) Malnutrition (Chronic) Assessment: ulcer right forefoot stable with fat layer exposed. Right heel ulcer with fat layer exposed. Left below-knee amputation with skin tissue exposed stable. New right lateral leg with fat layer exposed, no infection. Lymphedema. Chronic lower extremity edema and venous insufficiency. Morbid obesity. Type 2 diabetes uncontrolled with peripheral neuropathy. CKD. Hypertension. Malnutrition. Delayed wound healing. Nonadherence to treatment plan Plan: I reviewed and discussed his case. Debridement done as documented above in the clinical panel to the right toe region. Reviewed his wound healing product, and is applied according to standard protocol today after verbal consent was obtained. The graft was perforated prior to application was further secured with a wound veil and Steri-Strips. He tolerated this well and anesthesia was not required due to his neuropathy. Hemostasis was controlled with pressure. The Apligraf was applied to the left below-knee amputation stump site and the remainder was applied to the right heel and right toe lesser site. The entire product was utilized. This is medically necessary for limb salvage. Aquacel Ag was additionally applied over all these sites with additional interdigital gauze placement including the new right lateral leg ulcer site. To leave the Apligraf in place for 1 week until follow-up next Wednesday. Continue compression left with 3M2L. The patency of his previous arterial stent was checked with Dr. Nixon this year, and the current recommendation is to continue with strict compression with lymphedema pumps. Per patient, arterial duplex was performed during his last vascular surgery follow-up, and he appears to have continued perfusion to the right lower extremity and no vascular intervention is planned at this time. Continue protein suppplements and increased protein in diet. I also recommend a lymphedema clinic. He went approximately 3 years ago and found this to be very helpful. He no longer has his thigh-high compression garments that were arranged for him during this last session. [place] wrap order will be processed at this time for the right lower extremity for better edema control there is a lymphedema clinic in [place] and his information was sent over. They can only see him once he is d/c from home health; this is noted. To keep pressure off of his left below-knee amputation stump site. He was educated again that placing the stump site directly on a pillow and crate is not offlo ading. This is reviewed again today and he reports he may or may not make an adjustment this upcoming week to address this. Bilateral offloading donut pillow prescriptions were provided today and he was advised to apply the right lower limb taking care to make sure new pressure ulcers not form in the leg site. The left side will be applied proximal to the stump site and possibly in the thigh depending on how this can fit properly and safely. He is at risk for continued limb loss and due to his condition and he understands. It is noted he did not start this yet and this is consistent with continued noncompliance. Follow up in 1 week with at the wound healing center or call sooner if he has any questions or concerns.
== END 2018-11-04 23:59 ==
LOC: WC 10:00
PROVIDERS: Family Provider Family Medicine Geriatric Medicine; PCP Family Medicine Geriatric Medicine; Referring Provider Podiatrist; Visit Provider Podiatrist
DX: E11.621 Type 2 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with foot ulcer (principal); E11.42 Type 2 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with diabetic polyneuropathy; L97.512 Non-pressure chronic ulcer of other part of right foot with fat layer exposed; I89.0 Lymphedema, not elsewhere classified; T87.89 Other complications of amputation stump; L97.822 Non-pressure chronic ulcer of other part of left lower leg with fat layer exposed; I12.9 Hypertensive chronic kidney disease with stage 1 through stage 4 chronic kidney disease, or unspecified chronic kidney disease; N18.9 Chronic kidney disease, unspecified; E66.01 Morbid (severe) obesity due to excess calories; E11.22 Type 2 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with diabetic chronic kidney disease; E11.65 Type 2 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with hyperglycemia; Z71.3 Dietary counseling and surveillance; L97.412 Non-pressure chronic ulcer of right heel and midfoot with fat layer exposed; I87.2 Venous insufficiency (chronic) (peripheral)
CPT/HCPCS: 11042; 15271; 15275; 29581; Q4101

== ENCOUNTER → 2018-11-03 10:10 | Outpatient (CLI) | payer MEDICARE, MEDICAID, SELFPAY ==
[2018-11-02 11:30] VITALS: BMI 45.6
[2018-11-03 11:35] LABS: Amphetamine Urine VISTA NEGATIVE (<1000 ng/mL); Barbiturate Urine VISTA NEGATIVE (< 200 ng/mL); Benzodiazepine Urine VISTA NEGATIVE (< 200 ng/mL); Cocaine Urine VISTA NEGATIVE (< 300 ng/mL); Ecstacy Urine VISTA NEGATIVE (< 500 ng/mL); Methadone Urine VISTA NEGATIVE (< 300 ng/mL); PCP Urine VISTA NEGATIVE (< 25 ng/mL); THC Urine VISTA NEGATIVE (< 50 ng/mL); Vista UDS pH Range 6
== END ==
PROVIDERS: Family Provider Family Medicine Geriatric Medicine; PCP Family Medicine Geriatric Medicine; Referring Provider Anesthesiology Pain Medicine; Visit Provider Anesthesiology Pain Medicine
DX: F11.20 Opioid dependence, uncomplicated (principal)
CPT/HCPCS: 80307

== ENCOUNTER → 2018-11-16 10:58 | Outpatient (CLI) | payer MEDICARE, MEDICAID, SELFPAY ==
[2018-10-05 10:07] VITALS: BMI 45.6
[2018-11-09 09:27] VITALS: BMI 45.6
[2018-11-16 12:35] LABS: Thyroid Stim Hormone (TSH) 1.82 uIU/mL (0.358-3.74)
== END ==
PROVIDERS: Family Provider Family Medicine Geriatric Medicine; PCP Family Medicine Geriatric Medicine; Referring Provider Family Medicine Geriatric Medicine; Visit Provider Family Medicine Geriatric Medicine
DX: E03.9 Hypothyroidism, unspecified (principal)
CPT/HCPCS: 36415; 84443

== ENCOUNTER 2018-11-30 09:15 | Outpatient (RCR) | payer MEDICARE, MEDICAID, SELFPAY ==
[2018-11-05 00:43] VITALS: BP 124/69; PULSE 81; RESP 18; TEMP 36.3
[2018-11-09 09:27] VITALS: BP 135/76; PULSE 84; RESP 18; TEMP 36.1; BMI 45.6
--- NOTE | 2018-11-09 09:33 | WC ---
pt has steri strips left in place from apligraf on L stump ,R heel & R foot. no measurement taken due to steristrips in place
--- NOTE | 2018-11-09 11:56 | PN.PCM_ITS ---
(1) Ulcer of left lower extremity, limited to breakdown of skin Status: Chronic Code(s): L97.921 - Non-pressure chronic ulcer of unspecified part of left lower leg limited to breakdown of skin (2) Lymphedema Status: Chronic Code(s): I89.0 - Lymphedema, not elsewhere classified (3) Chronic ulcer of right foot with fat layer exposed Status: Chronic Code(s): L97.512 - Non-pressure chronic ulcer of other part of right foot with fat layer exposed (4) Maceration of skin Status: Acute Code(s): L98.8 - Other specified disorders of the skin and subcutaneous tissue (5) Ulcer of right lower extremity with fat layer exposed Status: Resolved Code(s): L97.912 - Non-pressure chronic ulcer of unspecified part of right lower leg with fat layer exposed Type of Wound Date of Service: 11/09/18 Chief Complaint: 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 Right toe ulcers. left stump ulcers History of Wound: 58-year-old male returns to clinic for follow-up of bilateral leg ulcers and right foot ulcers. He denies fever, chill, nausea, vomiting, loss of appetite. He had multiple advanced wound care product applications. He denies redness. He had an Apligraf applied to each limb last week and has kept these in place. Progress of Wound: Stable right toe and heel areas. Left stump site ulcer s table. Healed ulcer right lateral leg - Physical Exam Vital Signs Temp Pulse Resp BP 97 F L 84 18 135/76 H 11/09/18 09:27 11/09/18 09:27 11/09/18 09:27 11/09/18 09:27 General: Alert, Oriented x3, Cooperative, No apparent distress Extremities: No cyanosis, Capillary Refill Less than 3 Seconds, No Calf Tenderness - Negative Harry and Badillo sign right, Edema - Bilateral lower extremity consistent with chronic lymphedema, - - Left below-knee amputation Skin: Ulcer/ Wound - No purulence, erythema, streaking, odor, infection bilateral. There is no anna maceration. The peripheral skin is hairless and atrophic. There is full epithelialization noted to the right lateral leg ulcer site and the site is now healed Wound Measurements and Assessment WC - Nurse 1 - General Ulcer Measurement Start: 11/09/18 09:27 Freq: Status: Active Protocol: Activity Type Activity Date Activity User E-Sign Co-Sign Detail Recorded Client Recorded Date Recorded By Document 11/09/18 09:27 ALTHEA [id number] 11/09/18 09:34 ALTHEA 11/09/18 09:27 Wound Center Nurse 1 [Ulcer Assessment] #25 RIGHT LATERAL LOWER LEG -Combined with other wound No -Current Size (cm) - Length 0.1 -Current Size (cm) - Width 0.1 -Current Size (cm) - Depth 0.1 -Total Square Cm 0.01 -Tunneling No -Undermining/Tunneling No -Circular Undermining No -Exudate Amt None Present -Wound Margin Distinct, Outline Attached -Granulation Amt Small (1-33%) -Granulation Quality [place] -Slough/Fibrin Yes -Necrosis Amt Large (67-100%) -Necrotic Tissue Type Adherent Slough -Structure Exposed N/A -Texture (Martha-wound Skin Appearance) Assessed -Moisture (Martha-wound Skin Appearance Assessed ) -Color (Martha-wound Skin Appearance) Assessed -Temperature (Martha-wound Skin No Abnormality Appearance) (Pt Warm) -Tenderness on Palpation (Martha-wound No Skin Appearance) -Ulcer Cleansing Wound Cleanser -Foul Odor after Cleansing No #22 left stump -Exudate Amt Large -Exudate Type Serosanguineous -Moisture (Martha-wound Skin Appearance Maceration ) #13 R Med Heel -Exudate Amt Medium -Exudate Type Serosanguineous -Moisture (Martha-wound Skin Appearance Maceration ) #21 Right Foot-Toes w/Metatarsal Head circumfrential -Exudate Amt Large -Exudate Type Serosanguineous -Structure Exposed N/A -Moisture (Martha-wound Skin Appearance Maceration ) [Edema Assessment] -Lower Limb Edema Present Yes -Right Calf (cm) 36 -Right Ankle (cm) 29.2 -Left Calf (cm) 49 11/09/18 09:33 Wound Center by Michelle Hu pt has steri strips left in place from apligraf on L stump ,R heel & R foot. no measurement taken due to steristrips in place Initialized on 11/09/18 09:33 - END OF NOTE Musculoskeletal: No Tenderness to Palpation of Joints or Extremities, Muscle Wasting Neurological: - - Lack of normal epicritic sensation to light touch with neuropathy bilateral lower extremities Psych/Mental Status: Normal Affect, Appropriate Debridement Note Wound debrided: anterior below knee amputation stump site Laterality: Left Wound Grade/Stage: grade 1 Type of Debridement: Selective debridement Anesthesia Used: 5% Lidocaine Gel Depth: in the subcutaneous layer Percentage of wound debrided: 100 Instrument Used: #15 blade Tissue Removed: fibrous, devitalized subcutaneous, biofilm, slough Severity: Fat Layer Exposed Amount of bleeding with debridement: Mild Bleeding Controlled with: Pressure Patient tolerated procedure well Assessment/Plan Assessment: ulcer right forefoot stable with fat layer exposed. Right heel ulcer with fat layer exposed. Left below-knee amputation with skin tissue exposed stable. Healed right lateral leg. Lymphedema. Chronic lower extremity edema and venous insufficiency. Morbid obesity. Type 2 diabetes uncontrolled with peripheral neuropathy. CKD. Hypertension. Malnutrition. Delayed wound healing. Nonadherence to treatment plan Plan: I reviewed and discussed his case. Debridement done as documented above in the clinical panel to the left anterior part of the below knee amputation stump site. Apligraft, advanced wound healing product, was applied according to standard protocol today after verbal consent was obtained to the anterior part of the left below the knee stump amputation site. The graft was perforated prior to application was further secured with a wound veil and Steri-Strips. He tolerated this well and anesthesia was not required due to his neuropathy. This site was debrided prior to application, and hemostasis was controlled with pressure. The entire product was utilized. This is medically necessary for limb salvage. The apligrafts applied last week to the right heel, toe region and posterior part of the left below knee amputation stump site were left intact. Aquacel Ag was additionally applied over all these sites with additional interdigital gauze placement including the new right lateral leg ulcer site. To leave the Apligraf in place for 1 week. He will follow up next week for a nursing visit in which the apligrafts to the right heel, right toe, and posterior part of the left below knee amputation stump site will be removed and gently cleansed; the anterior part of the left below-knee amputation stump site will be gently kept intact. During this nursing visit, an additional compress ion garment will be applied to each limb. Continue compression left with 3M2L. The patency of his previous arterial stent was checked with Dr. Nixon this year, and the current recommendation is to continue with strict compression with lymphedema pumps. Per patient, arterial duplex was performed during his last vascular surgery follow-up, and he appears to have continued perfusion to the right lower extremity and no vascular intervention is planned at this time. Continue protein suppplements and increased protein in diet. I also recommend a lymphedema clinic. He went approximately 3 years ago and found this to be very helpful. He no longer has his thigh-high compression garments that were arranged for him during this last session. Farrow wrap order will be processed at this time for the right lower extremity for better edema control there is a lymphedema clinic in [place] and his information was sent over. They can only see him once he is d/c from home health; this is noted. To keep pressure off of his left below-knee amputation stump site. Bilateral offloading donut pillow were recommended. He is at risk for continued limb loss and due to his condition and he understands. Follow up in 1 week with nursing staff in [address] Lux at the wound healing center. He was also advised to call sooner if he has any questions or concerns.
[2018-11-16 11:45] VITALS: BP 123/73; PULSE 129; RESP 18; TEMP 36.2; BMI 45.6
[2018-11-23 09:23] VITALS: BP 122/60; PULSE 88; RESP 16; TEMP 36.3; BMI 45.6
--- NOTE | 2018-11-23 10:02 | PN.PCM_ITS ---
(1) Ulcer of left lower extremity, limited to breakdown of skin Status: Chronic Current Visit: Yes Code(s): L97.921 - Non-pressure chronic ulcer of unspecified part of left lower leg limited to breakdown of skin (2) Lymphedema Status: Chronic Current Visit: Yes Code(s): I89.0 - Lymphedema, not elsewhere classified (3) Chronic ulcer of right foot with fat layer exposed Status: Chronic Current Visit: Yes Code(s): L97.512 - Non-pressure chronic ulcer of other part of right foot with fat layer exposed (4) Maceration of skin Status: Acute Current Visit: Yes Code(s): L98.8 - Other specified disorders of the skin and subcutaneous tissue (5) Ulcer of right lower extremity with fat layer exposed Status: Resolved Current Visit: Yes Code(s): L97.912 - Non-pressure chronic ulcer of unspecified part of right lower leg with fat layer exposed Type of Wound Date of Service: 11/23/18 Chief Complaint: 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 Right toe ulcers. left stump ulcers History of Wound: 58-year-old male returns to clinic for follow-up of bilateral leg ulcers and right foot ulcers. He denies fever, chill, nausea, vomiting, loss of appetite. He had multiple advanced wound care product applications. He denies redness. He has trouble keeping his left limb compression dressing intact he has continued bulbous swelling. He does not use his compression pumps twice a day. Progress of Wound: Stable right toe and heel areas. Left stump site ulcer stable - Physical Exam Vital Signs Temp Pulse Resp BP 97.4 F L 88 16 122/60 H 11/23/18 09:23 11/23/18 09:23 11/23/18 09:23 11/23/18 09:23 General: Alert, Oriented x3, Cooperative, No apparent distress Extremities: No cyanosis, Capillary Refill Less than 3 Seconds - Right foot digits and left below-knee amputation stump site, No Calf Tenderness - Right negative, and Badillo, Diminished Peripheral Pulses, Edema - Continue moderate right bilateral lower extremities Skin: Ulcer/ Wound - No purulence, erythema, streaking, odor, infection, deep probing or necrosis bilateral. There is increased maceration to all ulcer sites and pale granular centrally space with interspersed sub-hemorrhagic tissue, - - the peripheral skin is hairless and atrophic Wound Measurements and Assessment WC - Nurse 1 - General Ulcer Measurement Start: 11/09/18 09:27 Freq: Status: Active Protocol: Activity Type Activity Date Activity User E-Sign Co-Sign Detail Recorded Client Recorded Date Recorded By Document 11/23/18 09:23 [facility] [id number] 11/23/18 09:40 [facility] 11/23/18 09:23 Wound Center Nurse 1 [Ulcer Assessment] #22 left stump -Combined with other wound No -Current Size (cm) - Length 13 -Current Size (cm) - Width 24.2 -Current Size (cm) - Depth 0.1 -Total Square Cm 314.6 -Photo Taken No -Epithelialization None Present -Tunneling No -Undermining/Tunneling No -Circular Undermining No -Exudate Amt Large -Exudate Type Serous -Wound Margin Flat & Intact -Granulation Amt Large (67-100%) -Granulation Quality Red -Slough/Fibrin Yes -Necrosis Amt Small (1-33%) -Necrotic Tissue Type Adherent Slough -Texture (Martha-wound Skin Appearance) Assessed, Excoriation, Scarring,Rash -Moisture (Martha-wound Skin Appearance Assessed, ) Maceration, Weeping -Color (Martha-wound Skin Appearance) Assessed, Erythema,Palor -Temperature (Martha-wound Skin No Abnormality Appearance) (Pt Warm) -Tenderness on Palpation (Martha-wound No Skin Appearance) -Ulcer Cleansing Wound Cleanser -Foul Odor after Cleansing No -Anesthetic Used 4% Lidocaine Solution #13 R Med Heel -Combined with other wound No -Current Size (cm) - Length 1.7 -Current Size (cm) - Width 2.8 -Current Size (cm) - Depth 0.1 -Total Square Cm 4.76 -Photo Taken No -Epithelialization None Present -Tunneling No -Undermining/Tunneling No -Circular Undermining No -Exudate Amt Large -Exudate Type Serous -Wound Margin Distinct, Outline Attached -Granulation Amt Large (67-100%) -Granulation Quality Red -Slough/Fibrin Yes -Necrosis Amt Small (1-33%) -Necrotic Tissue Type Adherent Slough -Texture (Martha-wound Skin Appearance) Assessed, Excoriation, Scarring,Rash -Moisture (Martha-wound Skin Appearance Assessed, ) Maceration, Weeping -Color (Martha-wound Skin Appearance) Assessed, Erythema,Palor -Temperature (Martha-wound Skin No Abnormality Appearance) (Pt Warm) -Tenderness on Palpation (Martha-wound No Skin Appearance) -Ulcer Cleansing Wound Cleanser -Foul Odor after Cleansing No -Anesthetic Used 4% Lidocaine Solution #21 Right Foot-Toes w/Metatarsal Head circumfrential -Combined with other wound No -Current Size (cm) - Length 14.9 -Current Size (cm) - Width 9.1 -Current Size (cm) - Depth 0.1 -Total Square Cm 135.59 -Photo Taken No -Epithelialization None Present -Tunneling No -Undermining/Tunneling No -Circular Undermining No -Exudate Amt Large -Exudate Type Serous -Wound Margin Flat & Intact -Granulation Amt Large (67-100%) -Granulation Quality Red -Slough/Fibrin Yes -Necrosis Amt Small (1-33%) -Necrotic Tissue Type Adherent Slough -Texture (Martha-wound Skin Appearance) Assessed, Excoriation, Scarring,Rash -Moisture (Martha-wound Skin Appearance Maceration, ) Weeping -Color (Martha-wound Skin Appearance) Assessed, Erythema,Palor -Temperature (Martha-wound Skin No Abnormality Appearance) (Pt Warm) -Tenderness on Palpation (Martha-wound No Skin Appearance) -Ulcer Cleansing Wound Cleanser -Foul Odor after Cleansing No -Anesthetic Used 4% Lidocaine Solution [Edema Assessment] -Lower Limb Edema Present Yes -Right Calf (cm) 36.5 -Right Ankle (cm) 29.5 -Left Calf (cm) 50.6 WC - Nurse 2 - General Ulcer CM Notes Start: 11/09/18 09:27 Freq: Status: Active Protocol: Activity Type Activity Date Activity User E-Sign Co-Sign Detail Recorded Client Recorded Date Recorded By Document 11/23/18 09:54 AN [id number] 11/23/18 09:56 AN 11/23/18 09:54 Wound Center Nurse 2 [Procedure/Treatment] #22 left stump -Time 09:55 -Correct Patient Yes -Correct Side, Site, Position Yes -Correct Procedure Yes -Procedure Performed Yes -Type of Procedure Debridement -Clinical Debridement Subcutaneous -Post Debridement Size (cm) - Length 13.1 -Post Debridement Size (cm) - Width 24.2 -Post Debridement Size (cm) - Depth 0.1 -Total Square Cm 317.02 -Wound/Ulcer Outcome Amputation -Bleeding Controlled with Pressure -Offloading Yes -Treatment Response Procedure Tolerated Well #13 R Med Heel -Time 09:55 -Correct Patient Yes -Correct Side, Site, Position Yes -Correct Procedure Yes -Procedure Performed Yes -Type of Procedure Debridement -Clinical Debridement Subcutaneous -Post Debridement Size (cm) - Length 1.8 -Post Debridement Size (cm) - Width 2.9 -Post Debridement Size (cm) - Depth 0.1 -Total Square Cm 5.22 -Wound/Ulcer Outcome Not Healed -Ulcer Cleansing Rinsed/ Irrigated with Saline -Bleeding Controlled with Pressure -Treatment Response Procedure Tolerated Well #21 Right Foot-Toes w/Metatarsal Head circumfrential -Time 09:56 -Correct Patient Yes -Correct Side, Site, Position Yes -Correct Procedure Yes -Procedure Performed Yes -Type of Procedure Debridement -Clinical Debridement Subcutaneous -Post Debridement Size (cm) - Length 15 -Post Debridement Size (cm) - Width 9.2 -Post Debridement Size (cm) - Depth 0.1 -Total Square Cm 138.0 -Wound/Ulcer Outcome Not Healed -Bleeding Controlled with Pressure -Treatment Response Procedure Tolerated Well [See Physician Procedure note for Specifics] Pain Scale: 0-10 Numeric [Pain] -Is Patient Pain Free? Yes Musculoskeletal: No Tenderness to Palpation of Joints or Extremities, Muscle Wasting Neurological: - - Lack of normal epicritic sensation light touch consistent with neuropathy bilateral lower extremities Psych/Mental Status: Normal Affect, Appropriate Debridement Note Post-Debridement Measurements/Treatment WC - Nurse 2 - General Ulcer CM Notes Start: 11/09/18 09:27 Freq: Status: Active Protocol: Activity Type Activity Date Activity User E-Sign Co-Sign Detail Recorded Client Recorded Date Recorded By Document 11/09/18 17:51 AN [id number] 11/09/18 17:58 AN Document 11/23/18 09:54 AN [id number] 11/23/18 09:56 AN 11/09/18 11/23/18 17:51 09:54 Wound Center Nurse 2 #22 left stump -Time 10:30 09:55 -Correct Patient Yes Yes -Correct Side, Site, Position Yes Yes -Correct Procedure Yes Yes -Procedure Performed Yes Yes -Type of Procedure Debridement Debridement -Clinical Debridement Subcutaneous Subcutaneous -Post Debridement Size (cm) - Length 0.2 13.1 -Post Debridement Size (cm) - Width 0.2 24.2 -Post Debridement Size (cm) - Depth 0.1 0.1 -Total Square Cm 0.04 317.02 -Wound/Ulcer Outcome Not Healed Amputation -Ulcer Cleansing Rinsed/ Irrigated with Saline -Foul Odor after Cleansing Yes -Bioengineered Tissue Yes -Type of bioengineered Tissue Apligraf -Expiration Date 11/09/18 -Product Lot Number [id number] -Percent Used 100 -Saline Lot Number [id number] -Topical Lidocaine (%) 4 -Bleeding Controlled with Pressure Pressure -Offloading Yes Yes -Treatment Response Procedure Procedure Tolerated Well Tolerated Well #13 R Med Heel -Time 10:30 09:55 -Correct Patient Yes Yes -Correct Side, Site, Position Yes Yes -Correct Procedure Yes Yes -Procedure Performed No Yes -Type of Procedure Debridement -Clinical Debridement Subcutaneous -Post Debridement Size (cm) - Length 1.8 -Post Debridement Size (cm) - Width 2.9 -Post Debridement Size (cm) - Depth 0.1 -Total Square Cm 5.22 -Wound/Ulcer Outcome Not Healed -Ulcer Cleansing Rinsed/ Irrigated with Saline -Bleeding Controlled with Pressure -Treatment Response Procedure Procedure Tolerated Well Tolerated Well #21 Right Foot-Toes w/Metatarsal Head circumfrential -Time 10:30 09:56 -Correct Patient Yes Yes -Correct Side, Site, Position Yes Yes -Correct Procedure No Yes -Procedure Performed Yes -Type of Procedure Debridement -Clinical Debridement Subcutaneous -Post Debridement Size (cm) - Length 15 -Post Debridement Size (cm) - Width 9.2 -Post Debridement Size (cm) - Depth 0.1 -Total Square Cm 138.0 -Wound/Ulcer Outcome Not Healed Not Healed -Ulcer Cleansing Rinsed/ Irrigated with Saline -Bleeding Controlled with Pressure -Treatment Response Procedure Procedure Tolerated Well Tolerated Well Pain Scale: 0-10 Numeric Is Patient Pain Free? Yes Yes Wound debrided: leg stump Laterality: Left Wound Grade/Stage: grade 1 Type of Debridement: Excisional debridement Anesthesia Used: 5% Lidocaine Gel Depth: in the subcutaneous layer Percentage of wound debrided: 100 Instrument Used: #15 blade Tissue Removed: fibrous, devitalized subcutaneous, biofilm, slough Severity: Fat Layer Exposed Amount of bleeding with debridement: Mild Bleeding Controlled with: Pressure Patient tolerated procedure well - Additional Wound Wound debrided: heel Laterality: Right Wound Grade/Stage: grade 3 Type of Debridement: Excisional debridement Anesthesia Used: 5% Lidocaine Gel Depth: in the subcutaneous layer Percentage of wound debrided: 100 Instrument Used: #15 blade Tissue Removed: fibrous, devitalized subcutaneous, biofilm, slough Severity: Fat Layer Exposed Amount of bleeding with debridement: Mild Bleeding Controlled with: Pressure Patient tolerated procedure: Patient tolerated procedure well - Additional Wound Wound debrided: toe cluster Laterality: Right Wound Grade/Stage: grade 1 Type of Debridement: Excisional debridement Anesthesia Used: 5% Lidocaine Gel Depth: in the subcutaneous layer Percentage of wound debrided: 100 Instrument Used: #15 blade Tissue Removed: fibrous, devitalized subcutaneous, biofilm, slough Severity: Fat Layer Exposed Amount of bleeding with debridement: Mild Bleeding Controlled with: Pressure Patient tolerated procedure: Patient tolerated procedure well Assessment/Plan Active Problems Ulcer of left lower extremity, limited to breakdown of skin (Chronic) Lymphedema (Chronic) Chronic ulcer of right foot with fat layer exposed (Chronic) Maceration of skin (Acute) Assessment: ulcer right forefoot stable with fat layer exposed. Right heel ulcer with fat layer exposed. Left below-knee amputation with skin tissue exposed stable. Lymphedema. Chronic lower extremity edema and venous insufficiency. Morbid obesity. Type 2 diabetes uncontrolled with peripheral neuropathy. CKD. Hypertension. Malnutrition. Delayed wound healing. Nonadherence to treatment plan Plan: I reviewed and discussed his case. Debridement done as documented above in the clinical panel to the left anterior part of the below knee amputation stump site. To change dressing every 1 to 2 days with Aquacel Ag to reduce maceration. I recommend Apligraf application next week once this is better controlled. Continue compression left with 3M2L; a more proximal application will be correct this week. The patency of his previous arterial stent was checked with Dr. Nixon this year, and the current recommendation is to continue with strict compression with lymphedema pumps. Per patient, arterial duplex was performed during his last vascular surgery follow-up, and he appears to have continued perfusion to the right lower extremity and no vascular intervention is planned at this time. Continue protein suppplements and increased protein in diet. I also recommend a lymphedema clinic. He went approximately 3 years ago and found this to be very helpful. He no longer has his thigh-high compression garments that were arranged for him during this last session. [place] wrap order will be processed at this time for the right lower extremity for better edema control there is a lymphedema clinic in [place] and his information was sent over. They can only see him once he is d/c from home health; this is noted. To keep pressure off of his left below-knee amputation stump site. Bilateral offloading donut pillow were recommended. He is at risk for continued limb loss and due to his condition and he understands. Follow u p in 1 week at the wound healing center. He was also advised to call sooner if he has any questions or concerns.
[2018-11-30 09:17] VITALS: BP 109/70; PULSE 95; RESP 18; TEMP 36.1; BMI 45.6
--- NOTE | 2018-11-30 10:40 | PN.PCM_ITS ---
(1) Ulcer of left lower extremity with fat layer exposed Status: Chronic Current Visit: Yes Code(s): L97.922 - Non-pressure chronic ulcer of unspecified part of left lower leg with fat layer exposed (2) Lymphedema Status: Chronic Current Visit: Yes Code(s): I89.0 - Lymphedema, not elsewhere classified (3) Chronic ulcer of right foot with fat layer exposed Status: Chronic Current Visit: Yes Code(s): L97.512 - Non-pressure chronic ulcer of other part of right foot with fat layer exposed (4) Ulcer of right lower extremity with fat layer exposed Status: Resolved Current Visit: Yes Code(s): L97.912 - Non-pressure chronic ulcer of unspecified part of right lower leg with fat layer exposed Type of Wound Date of Service: 11/30/18 Chief Complaint: 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 Right toe ulcers. left stump ulcers History of Wound: 58-year-old male returns to clinic for follow-up of bilateral leg ulcers and right foot ulcers. He denies fever, chill, nausea, vomiting, loss of appetite. He had multiple advanced wound care product applications. He denies redness. He has trouble keeping his left limb compression dressing intact he has continued bulbous swelling. He does not use his compression pumps twice a day. He excellently spilled urine on his wound last week and it has been able to clean it adequately with soap and water upon arrival today at the wound healing center. He denies known injury to his right heel. Progress of Wound: All sites stable with decreased maceration - Physical Exam Vital Signs Temp Pulse Resp BP 97 F L 95 18 109/70 11/30/18 09:17 11/30/18 09:17 11/30/18 09:17 11/30/18 09:17 General: Alert, Oriented x3, Cooperative, No apparent distress Extremities: No cyanosis, Capillary Refill Less than 3 Seconds, No Calf Tenderness - Negative Harry and [place]illo right, Diminished Peripheral Pulses, Edema - Bilateral severe and slightly decreased compared to last week. Lymphedema findings, - - Left below-knee amputation Skin: Ulcer/ Wound - No purulence, erythema, string, odor, infection. No necrosis. Peripheral skin is hairless and atrophic. There is some deep ecc hymosis around the right heel suggesting increased pressure. Maceration is decreased compared to last week as well bilateral Wound Measurements and Assessment WC - Nurse 1 - General Ulcer Measurement Start: 11/09/18 09:27 Freq: Status: Active Protocol: Activity Type Activity Date Activity User E-Sign Co-Sign Detail Recorded Client Recorded Date Recorded By Document 11/30/18 09:17 [id number] 11/30/18 09:41 11/30/18 09:17 Wound Center Nurse 1 [Ulcer Assessment] #22 left stump -Combined with other wound No -Current Size (cm) - Length 10 -Current Size (cm) - Width 7 -Current Size (cm) - Depth 0.1 -Total Square Cm 70 -Photo Taken No -Tunneling No -Undermining/Tunneling No -Circular Undermining No -Exudate Amt Small -Exudate Type Serous -Wound Margin Indistinct, Non -Visible -Granulation Amt Large (67-100%) -Granulation Quality [place] -Slough/Fibrin No -Necrosis Amt None Present (0 %) -Structure Exposed None/Limited to Skin Breakdown -Texture (Martha-wound Skin Appearance) Friable -Moisture (Martha-wound Skin Appearance Maceration, ) Weeping -Color (Martha-wound Skin Appearance) Erythema,Palor -Temperature (Martha-wound Skin No Abnormality Appearance) (Pt Warm) -Tenderness on Palpation (Martha-wound No Skin Appearance) -Foul Odor after Cleansing No #13 R Med Heel -Combined with other wound No -Current Size (cm) - Length 2 -Current Size (cm) - Width 3 -Current Size (cm) - Depth 0.1 -Total Square Cm 6 -Photo Taken No -Epithelialization Large 67-100% -Tunneling No -Undermining/Tunneling No -Circular Undermining No -Exudate Amt Medium -Exudate Type Yellow/Green -Wound Margin Fibrotic Scar, Thickened Scar -Granulation Amt Medium (34-66%) -Granulation Quality Red -Necrosis Amt None Present (0 %) -Necrotic Tissue Type Adherent Slough -Structure Exposed None/Limited to Skin Breakdown -Texture (Martha-wound Skin Appearance) Callus -Moisture (Martha-wound Skin Appearance Maceration, ) Weeping -Color (Martha-wound Skin Appearance) Palor -Temperature (Martha-wound Skin No Abnormality Appearance) (Pt Warm) -Tenderness on Palpation (Martha-wound No Skin Appearance) -Foul Odor after Cleansing No -Anesthetic Used 4% Lidocaine Solution #21 Right Foot-Toes w/Metatarsal Head circumfrential -Combined with other wound No -Current Size (cm) - Length 16 -Current Size (cm) - Width 9 -Current Size (cm) - Depth 0.1 -Total Square Cm 144 -Photo Taken No -Epithelialization Large 67-100% -Tunneling No -Undermining/Tunneling No -Circular Undermining No -Exudate Type Sanguineous -Wound Margin Flat & Intact -Granulation Amt Large (67-100%) -Granulation Quality Red -Slough/Fibrin Yes -Necrosis Amt None Present (0 %) -Structure Exposed None/Limited to Skin Breakdown -Texture (Martha-wound Skin Appearance) Friable, Localized Edema -Moisture (Martha-wound Skin Appearance Maceration, ) Weeping -Color (Martha-wound Skin Appearance) Palor -Temperature (Martha-wound Skin No Abnormality Appearance) (Pt Warm) -Tenderness on Palpation (Martha-wound No Skin Appearance) -Foul Odor after Cleansing No -Anesthetic Used 4% Lidocaine Solution [Edema Assessment] -Lower Limb Edema Present Yes -Right Calf (cm) 34 -Right Ankle (cm) 31 -Left Calf (cm) 47 Musculoskeletal: No Tenderness to Palpation of Joints or Extremities, Muscle Wasting Neurological: - - Lack of epicritic sensation light touch bilateral Psych/Mental Status: Normal Affect, Appropriate Debridement Note Post-Debridement Measurements/Treatment WC - Nurse 2 - General Ulcer CM Notes Start: 11/09/18 09:27 Freq: Status: Active Protocol: Activity Type Activity Date Activity User E-Sign Co-Sign Detail Recorded Client Recorded Date Recorded By Document 11/09/18 17:51 AN [id number] 11/09/18 17:58 AN Document 11/23/18 09:54 AN [id number] 11/23/18 09:56 AN 11/09/18 11/23/18 17:51 09:54 Wound Center Nurse 2 #22 left stump -Time 10:30 09:55 -Correct Patient Yes Yes -Correct Side, Site, Position Yes Yes -Correct Procedure Yes Yes -Procedure Performed Yes Yes -Type of Procedure Debridement Debridement -Clinical Debridement Subcutaneous Subcutaneous -Post Debridement Size (cm) - Length 0.2 13.1 -Post Debridement Size (cm) - Width 0.2 24.2 -Post Debridement Size (cm) - Depth 0.1 0.1 -Total Square Cm 0.04 317.02 -Wound/Ulcer Outcome Not Healed Amputation -Ulcer Cleansing Rinsed/ Irrigated with Saline -Foul Odor after Cleansing Yes -Bioengineered Tissue Yes -Type of bioengineered Tissue Apligraf -Expiration Date 11/09/18 -Product Lot Number [id number] -Percent Used 100 -Saline Lot Number [id number] -Topical Lidocaine (%) 4 -Bleeding Controlled with Pressure Pressure -Offloading Yes Yes -Treatment Response Procedure Procedure Tolerated Well Tolerated Well #13 R Med Heel -Time 10:30 09:55 -Correct Patient Yes Yes -Correct Side, Site, Position Yes Yes -Correct Procedure Yes Yes -Procedure Performed No Yes -Type of Procedure Debridement -Clinical Debridement Subcutaneous -Post Debridement Size (cm) - Length 1.8 -Post Debridement Size (cm) - Width 2.9 -Post Debridement Size (cm) - Depth 0.1 -Total Square Cm 5.22 -Wound/Ulcer Outcome Not Healed -Ulcer Cleansing Rinsed/ Irrigated with Saline -Bleeding Controlled with Pressure -Treatment Response Procedure Procedure Tolerated Well Tolerated Well #21 Right Foot-Toes w/Metatarsal Head circumfrential -Time 10:30 09:56 -Correct Patient Yes Yes -Correct Side, Site, Position Yes Yes -Correct Procedure No Yes -Procedure Performed Yes -Type of Procedure Debridement -Clinical Debridement Subcutaneous -Post Debridement Size (cm) - Length 15 -Post Debridement Size (cm) - Width 9.2 -Post Debridement Size (cm) - Depth 0.1 -Total Square Cm 138.0 -Wound/Ulcer Outcome Not Healed Not Healed -Ulcer Cleansing Rinsed/ Irrigated with Saline -Bleeding Controlled with Pressure -Treatment Response Procedure Procedure Tolerated Well Tolerated Well Pain Scale: 0-10 Numeric Is Patient Pain Free? Yes Yes Wound debrided: left stump site Laterality: Left Wound Grade/Stage: grade 1 Type of Debridement: Excisional debridement Anesthesia Used: 5% Lidocaine Gel Depth: in the subcutaneous layer Percentage of wound debrided: 100 Instrument Used: #15 blade Tissue Removed: fibrous, devitalized subcutaneous, biofilm, slough Severity: Fat Layer Exposed Amount of bleeding with debridement: Mild Bleeding Controlled with: Pressure Patient tolerated procedure well - Additional Wound Wound debrided: heel Laterality: Right Wound Grade/Stage: grade 3 Type of Debridement: Excisional debridement Anesthesia Used: 5% Lidocaine Gel Depth: in the subcutaneous layer Percentage of wound debrided: 100 Instrument Used: #15 blade Tissue Removed: fibrous, devitalized subcutaneous, biofilm, slough Severity: Fat Layer Exposed Amount of bleeding with debridement: Mild Bleeding Controlled with: Pressure Patient tolerated procedure: Patient tolerated procedure well - Additional Wound Wound debrided: toes Laterality: Right Wound Grade/Stage: grade 1 Type of Debridement: Excisional debridement Anesthesia Used: 5% Lidocaine Gel Depth: in the subcutaneous layer Percentage of wound debrided: 100 Instrument Used: #15 blade Tissue Removed: fibrous, devitalized subcutaneous, biofilm, slough Severity: Fat Layer Exposed Amount of bleeding with debridement: Mild Bleeding Controlled with: Pressure Patient tolerated procedure: Patient tolerated procedure well Assessment/Plan Active Problems Ulcer of left lower extremity, limited to breakdown of skin (Chronic) Ulcer of left lower extremity with fat layer exposed (Chronic) Lymphedema (Chronic) Chronic ulcer of right foot with fat layer exposed (Chronic) Maceration of skin (Acute) Assessment: ulcer right forefoot stable with fat layer exposed. Right heel ulcer with fat layer exposed. Left below-knee amputation with skin tissue exposed stable. Lymphedema. Chronic lower extremity edema and venous insufficiency. Morbid obesity. Type 2 diabetes uncontrolled with peripheral neuropathy. CKD. Hypertension. Malnutrition. Delayed wound healing. Nonadherence to treatment plan Plan: I reviewed and discussed his case. Debridement done as documented above in the clinical panel to the left anterior part of the below knee amputation stump site. To change only the secondary dressing every 1 to 2 days with Aquacel Ag to reduce maceration. Apligraf was applied today after verbal consent and according to standard protocol to the right heel, right toe cluster, and anterior part of left below-knee amputation stump site. This was secured with a wound veil and Steri-Strips. He tolerated this well. He was advised to keep clean and intact until follow-up next week with a secondary dressing. Continue compression left with 3M2L; a more proximal application will be correct this week. The patency of his previous arterial stent was checked with Dr. Nixon this year, and the current recommendation is to continue with strict compression with lymphedema pumps. Per patient, arterial duplex was performed during his last vascular surgery follow-up, and he appears to have continued perfusion to the right lower extremity and no vascular intervention is planned at this time. Continue protein suppplements and increased protein in diet. I also recommend a lymphedema clinic. He went approximately 3 years ago and found this to be very helpful. He no longer has his thigh-high compression garments that were arranged for him during this last session. [place] wrap order will be processed at this time for the right lower extremity for better edema control there is a lymphedema clinic in [place] and his information was sent over. They can only see him once he is d/c from home health; this is noted. To keep pressure off of his left below-knee amputation stump site. Bilateral offloading donut pillow were recommended. He is at risk for continued limb loss and due to his condition and he understands. Follow up in 1 week at the wound healing center. He was also advised to call sooner if he has any questions or concerns.
== END 2018-12-04 23:59 ==
LOC: WC 09:15
PROVIDERS: Family Provider Family Medicine Geriatric Medicine; PCP Family Medicine Geriatric Medicine; Referring Provider Podiatrist; Visit Provider Podiatrist
DX: E11.622 Type 2 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with other skin ulcer (principal); E11.42 Type 2 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with diabetic polyneuropathy; L97.512 Non-pressure chronic ulcer of other part of right foot with fat layer exposed; I89.0 Lymphedema, not elsewhere classified; E11.621 Type 2 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with foot ulcer; L98.8 Other specified disorders of the skin and subcutaneous tissue; E11.22 Type 2 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with diabetic chronic kidney disease; I12.9 Hypertensive chronic kidney disease with stage 1 through stage 4 chronic kidney disease, or unspecified chronic kidney disease; N18.9 Chronic kidney disease, unspecified; T87.89 Other complications of amputation stump; Y83.8 Other surgical procedures as the cause of abnormal reaction of the patient, or of later complication, without mention of misadventure at the time of the procedure; E11.65 Type 2 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with hyperglycemia; L97.822 Non-pressure chronic ulcer of other part of left lower leg with fat layer exposed; L97.412 Non-pressure chronic ulcer of right heel and midfoot with fat layer exposed; E11.51 Type 2 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with diabetic peripheral angiopathy without gangrene
CPT/HCPCS: 11042; 11045; 15271; 15272; 15275; 15276; 29581; 99212; Q4101; G0463

== ENCOUNTER 2019-01-04 09:15 | Outpatient (RCR) | payer MEDICARE, MEDICAID, SELFPAY ==
[2018-12-05 00:30] VITALS: BP 109/70; PULSE 95; RESP 18; TEMP 36.1
[2018-12-07 09:40] VITALS: BP 156/70; PULSE 91; RESP 18; TEMP 36.1; BMI 45.6
--- NOTE | 2018-12-07 11:27 | PCM.WC.PN ---
(1) Chronic ulcer of right foot with fat layer exposed Status: Chronic Current Visit: Yes Code(s): L97.512 - Non-pressure chronic ulcer of other part of right foot with fat layer exposed (2) Ulcer of left lower extremity with fat layer exposed Status: Chronic Current Visit: Yes Code(s): L97.922 - Non-pressure chronic ulcer of unspecified part of left lower leg with fat layer exposed (3) Lymphedema Status: Chronic Current Visit: Yes Code(s): I89.0 - Lymphedema, not elsewhere classified (4) Morbid obesity Status: Chronic Current Visit: Yes Code(s): E66.01 - Morbid (severe) obesity due to excess calories (5) Type 2 diabetes mellitus with diabetic polyneuropathy Status: Chronic Current Visit: Yes Code(s): E11.42 - Type 2 diabetes mellitus with diabetic polyneuropathy (6) Delayed wound healing Status: Chronic Current Visit: Yes Code(s): T14.8 - Other injury of unspecified body region (7) Malnutrition Status: Chronic Current Visit: Yes Code(s): E46 - Unspecified protein-calorie malnutrition Type of Wound Date of Service: 12/07/18 Chief Complaint: 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 Right toe ulcers. left stump ulcers History of Wound: 58-year-old male returns to clinic for follow-up of bilateral leg ulcers and right foot ulcers. He denies fever, chill, nausea, vomiting, loss of appetite. He had multiple advanced wound care product applications. He denies redness. He has trouble keeping his left limb compression dressing intact he has continued bulbous swelling. He does not use his compression pumps twice a day. He relates he did not have a compression dressing applied to his left leg. Progress of Wound: Stable - Physical Exam Vital Signs Temp Pulse Resp BP 97.0 F L 91 18 156/70 H 12/07/18 09:40 12/07/18 09:40 12/07/18 09:40 12/07/18 09:40 General: Alert, Oriented x3, Cooperative, No apparent distress Extremities: No cyanosis, Capillary Refill Less than 3 Seconds, No Calf Tenderness - Negative Harry and Badillo sign right. Compartments soft bilateral., Diminished Peripheral Pulses, Edema - Bilateral lower extremity lymphedema. Bilateral lower extremities, - - Left below-knee amputation Skin: Ulcer/ Wound - No purulence, erythema hamstring, odor, infection bilateral. Maceration continues to right toe region. The Apligraf remains intact to the lateral aspect of the left stump site as well as the right heel. There are no new ulcers. The peripheral skin is hairless and atrophic. Wound Measurements and Assessment WC - Nurse 1 - General Ulcer Measurement Start: 12/07/18 09:37 Freq: Status: Active Protocol: Activity Type Activity Date Activity User E-Sign Co-Sign Detail Recorded Client Recorded Date Recorded By Document 12/07/18 09:40 AK [id number] 12/07/18 09:45 AK 12/07/18 09:40 Wound Center Nurse 1 [Ulcer Assessment] #22 left stump -Combined with other wound No -Current Size (cm) - Length 15 -Current Size (cm) - Width 16 -Current Size (cm) - Depth 0.1 -Total Square Cm 240 -Photo Taken No -Epithelialization None Present -Tunneling No -Undermining/Tunneling No -Circular Undermining No -Exudate Amt Large -Exudate Type Serosanguineous -Wound Margin Flat & Intact -Granulation Amt Large (67-100%) -Granulation Quality Red -Slough/Fibrin Yes -Necrosis Amt Medium (34-66%) -Necrotic Tissue Type Adherent Slough -Structure Exposed N/A -Texture (Martha-wound Skin Appearance) Assessed, Localized Edema -Moisture (Martha-wound Skin Appearance Assessed, ) Maceration -Color (Marhta-wound Skin Appearance) Assessed -Temperature (Martha-wound Skin No Abnormality Appearance) (Pt Warm) -Tenderness on Palpation (Martha-wound No Skin Appearance) -Ulcer Cleansing Wound Cleanser -Foul Odor after Cleansing No #13 R Med Heel -Combined with other wound No -Current Size (cm) - Length 3 -Current Size (cm) - Width 3 -Current Size (cm) - Depth 0.2 -Total Square Cm 9 -Photo Taken No -Epithelialization None Present -Tunneling No -Undermining/Tunneling No -Circular Undermining No -Exudate Amt Large -Exudate Type Serosanguineous -Wound Margin Flat & Intact -Granulation Amt Large (67-100%) -Granulation Quality Red -Slough/Fibrin Yes -Necrosis Amt Small (1-33%) -Necrotic Tissue Type Adherent Slough -Structure Exposed N/A -Texture (Martha-wound Skin Appearance) Assessed, Localized Edema -Moisture (Martha-wound Skin Appearance Assessed,Dry/ ) Scaly -Color (Martha-wound Skin Appearance) Assessed -Temperature (Martha-wound Skin No Abnormality Appearance) (Pt Warm) -Tenderness on Palpation (Martha-wound No Skin Appearance) -Ulcer Cleansing Wound Cleanser -Foul Odor after Cleansing No -Anesthetic Used 4% Lidocaine Solution #21 Right Foot-Toes w/Metatarsal Head circumfrential -Combined with other wound No -Current Size (cm) - Length 14.5 -Current Size (cm) - Width 9 -Current Size (cm) - Depth 0.1 -Total Square Cm 130.5 -Photo Taken No -Epithelialization None Present -Tunneling No -Undermining/Tunneling No -Circular Undermining No -Exudate Amt Large -Exudate Type Serosanguineous -Wound Margin Flat & Intact -Granulation Amt Large (67-100%) -Granulation Quality Red -Slough/Fibrin Yes -Necrosis Amt Small (1-33%) -Necrotic Tissue Type Adherent Slough -Structure Exposed N/A -Texture (Martha-wound Skin Appearance) Assessed, Localized Edema -Moisture (Martha-wound Skin Appearance Assessed, ) Maceration -Color (Martha-wound Skin Appearance) Assessed -Temperature (Martha-wound Skin No Abnormality Appearance) (Pt Warm) -Tenderness on Palpation (Martha-wound No Skin Appearance) -Ulcer Cleansing Wound Cleanser -Foul Odor after Cleansing No [Edema Assessment] -Lower Limb Edema Present Yes -Right Calf (cm) 40.5 -Right Ankle (cm) 33.0 -Left Calf (cm) 53.0 WC - Nurse 2 - General Ulcer CM Notes Start: 12/07/18 09:37 Freq: Status: Active Protocol: Activity Type Activity Date Activity User E-Sign Co-Sign Detail Recorded Client Recorded Date Recorded By Document 12/07/18 10:57 ANUP [id number] 12/07/18 11:01 ANUP 12/07/18 10:57 Wound Center Nurse 2 [Procedure/Treatment] #22 left stump -Time 10:58 -Correct Patient Yes -Correct Side, Site, Position Yes -Correct Procedure Yes -Procedure Performed Yes -Type of Procedure Debridement -Clinical Debridement Subcutaneous -Post Debridement Size (cm) - Length 15 -Post Debridement Size (cm) - Width 16.1 -Post Debridement Size (cm) - Depth 0.1 -Total Square Cm 241.5 -Wound/Ulcer Outcome Not Healed -Ulcer Cleansing Rinsed/ Irrigated with Saline -Foul Odor after Cleansing No -Bioengineered Tissue Yes -Type of bioengineered Tissue Apligraf -Expiration Date 09/11/18 -Product Lot Number [id number] -Percent Used 100 -Saline Lot Number [id number] -Bleeding Controlled with Pressure -Offloading No -Treatment Response Procedure Tolerated Well #13 R Med Heel -Correct Patient No -Correct Side, Site, Position No -Correct Procedure No -Procedure Performed No #21 Right Foot-Toes w/Metatarsal Head circumfrential -Time 10:59 -Correct Patient Yes -Correct Side, Site, Position Yes -Correct Procedure Yes -Procedure Performed Yes -Type of Procedure Debridement -Clinical Debridement Subcutaneous -Post Debridement Size (cm) - Length 14.5 -Post Debridement Size (cm) - Width 9 -Post Debridement Size (cm) - Depth 0.1 -Total Square Cm 130.5 -Wound/Ulcer Outcome Not Healed -Ulcer Cleansing Rinsed/ Irrigated with Saline -Foul Odor after Cleansing No -Bioengineered Tissue No -Bleeding Controlled with Pressure -Offloading No -Treatment Response Procedure Tolerated Well [See Physician Procedure note for Specifics] Pain Scale: 0-10 Numeric [Pain] -Is Patient Pain Free? Yes Musculoskeletal: No Tenderness to Palpation of Joints or Extremities, Muscle Wasting Neurological: - - Lack of epicritic sensation light touch consistent with neuropathy bilateral Psych/Mental Status: Normal Affect, Appropriate Debridement Note Post-Debridement Measurements/Treatment WC - Nurse 2 - General Ulcer CM Notes Start: 12/07/18 09:37 Freq: Status: Active Protocol: Activity Type Activity Date Activity User E-Sign Co-Sign Detail Recorded Client Recorded Date Recorded By Document 12/07/18 10:57 ANUP [id number] 12/07/18 11:01 ANUP 12/07/18 10:57 Wound Center Nurse 2 #22 left stump -Time 10:58 -Correct Patient Yes -Correct Side, Site, Position Yes -Correct Procedure Yes -Procedure Performed Yes -Type of Procedure Debridement -Clinical Debridement Subcutaneous -Post Debridement Size (cm) - Length 15 -Post Debridement Size (cm) - Width 16.1 -Post Debridement Size (cm) - Depth 0.1 -Total Square Cm 241.5 -Wound/Ulcer Outcome Not Healed -Ulcer Cleansing Rinsed/ Irrigated with Saline -Foul Odor after Cleansing No -Bioengineered Tissue Yes -Type of bioengineered Tissue Apligraf -Expiration Date 09/11/18 -Product Lot Number [id number] -Percent Used 100 -Saline Lot Number [id number] -Bleeding Controlled with Pressure -Offloading No -Treatment Response Procedure Tolerated Well #13 R Med Heel -Correct Patient No -Correct Side, Site, Position No -Correct Procedure No -Procedure Performed No #21 Right Foot-Toes w/Metatarsal Head circumfrential -Time 10:59 -Correct Patient Yes -Correct Side, Site, Position Yes -Correct Procedure Yes -Procedure Performed Yes -Type of Procedure Debridement -Clinical Debridement Subcutaneous -Post Debridement Size (cm) - Length 14.5 -Post Debridement Size (cm) - Width 9 -Post Debridement Size (cm) - Depth 0.1 -Total Square Cm 130.5 -Wound/Ulcer Outcome Not Healed -Ulcer Cleansing Rinsed/ Irrigated with Saline -Foul Odor after Cleansing No -Bioengineered Tissue No -Bleeding Controlled with Pressure -Offloading No -Treatment Response Procedure Tolerated Well Pain Scale: 0-10 Numeric Is Patient Pain Free? Yes Wound debrided: toe region Laterality: Right Wound Grade/Stage: grade 1 Type of Debridement: Excisional debridement Anesthesia Used: 5% Lidocaine Gel Depth: in the subcutaneous layer Percentage of wound debrided: 100 Instrument Used: #15 blade Tissue Removed: fibrous, devitalized subcutaneous, biofilm, slough Severity: Fat Layer Exposed Amount of bleeding with debridement: Mild Bleeding Controlled with: Pressure Patient tolerated procedure well - Additional Wound Wound debrided: medial stump site leg Laterality: Left Wound Grade/Stage: grade 1 Type of Debridement: Excisional debridement Anesthesia Used: 5% Lidocaine Gel Depth: in the subcutaneous layer Percentage of wound debrided: 100 Instrument Used: #15 blade Tissue Removed: fibrous, devitalized subcutaneous, biofilm, slough Severity: Fat Layer Exposed Amount of bleeding with debridement: Mild Bleeding Controlled with: Pressure Patient tolerated procedure: Patient tolerated procedure well Assessment/Plan Active Problems Lymphedema (Chronic) Chronic ulcer of right foot with fat layer exposed (Chronic) Ulcer of left lower extremity with fat layer exposed (Chronic) Morbid obesity (Chronic) Type 2 diabetes mellitus with diabetic polyneuropathy (Chronic) Delayed wound healing (Chronic) Malnutrition (Chronic) Assessment: ulcer right forefoot stable with fat layer exposed. Right heel ulcer with fat layer exposed. Left below-knee amputation with skin tissue exposed stable. Lymphedema. Chronic lower extremity edema and venous insufficiency. Morbid obesity. Type 2 diabetes uncontrolled with peripheral neuropathy. CKD. Hypertension. Malnutrition. Delayed wound healing. Nonadherence to treatment plan Plan: I reviewed and discussed his case. The Apligraf was left intact to the right heel as well as the left anterior lateral part of the below knee amputation stump site. Debridement was performed to the right toe region as well as the anterior medial left below-knee amputation stump site is noted in the clinical panel. Apligraf was applied to the left medial anterior stump site according to standard protocol and this was secured in place with a wound veil and Steri-Strips. Verbal consent was obtained he tolerated this well. Is medically necessary. To change only the secondary dressing every 1 to 2 days with Aquacel Ag to reduce maceration and also to the right toe region. He was advised to keep clean and intact until follow-up next week with a secondary dressing. Continue compression left with 3M2L; a more proximal application will be correct this week. Compliance is necessary for bilateral application. The patency of his previous arterial stent was checked with Dr. Nixon this year, and the current recommendation is to continue with strict compression with lymphedema pumps. Per patient, arterial duplex was performed during his last vascular surgery follow-up, and he appears to have continued perfusion to the right lower extremity and no vascular intervention is planned at this time. Continue protein suppplements and increased protein in diet. I also recommend a lymphedema clinic. He went approximately 3 years ago and found this to be very helpful. He no longer has his thigh-high compression garments that were arranged for him during this last session. [place]arrow wrap order will be processed at this time for the right lower extremity for better edema control there is a lymphedema clinic in [place] and his information was sent over. They can only see him once he is d/c from home health; this is noted. To keep pressure off of his left below-knee amputation stump site. Bilateral offloading donut pillow were recommended. He is at risk for continued limb loss and due to his condition and he understands. Follow up in 1 week at the wound healing center. He was also advised to call sooner if he has any questions or concerns.
[2018-12-14 09:49] VITALS: BP 155/71; PULSE 89; RESP 16; TEMP 36.5; BMI 45.6
--- NOTE | 2018-12-14 10:41 | PN.PCM_ITS ---
(1) Blister of right leg Status: Acute Code(s): S80.821A - Blister (nonthermal), right lower leg, initial encounter (2) Chronic ulcer of right foot with fat layer exposed Status: Chronic Code(s): L97.512 - Non-pressure chronic ulcer of other part of right foot with fat layer exposed (3) Ulcer of left lower extremity with fat layer exposed Status: Chronic Code(s): L97.922 - Non-pressure chronic ulcer of unspecified part of left lower leg with fat layer exposed (4) Lymphedema Status: Chronic Code(s): I89.0 - Lymphedema, not elsewhere classified (5) Morbid obesity Status: Chronic Code(s): E66.01 - Morbid (severe) obesity due to excess calori es (6) Type 2 diabetes mellitus with diabetic polyneuropathy Status: Chronic Code(s): E11.42 - Type 2 diabetes mellitus with diabetic polyneuropathy (7) Delayed wound healing Status: Chronic Code(s): T14.8 - Other injury of unspecified body region (8) Malnutrition Status: Chronic Code(s): E46 - Unspecified protein-calorie malnutrition Type of Wound Date of Service: 12/14/18 Chief Complaint: 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 Right toe ulcers. left stump ulcers. New right leg blister History of Wound: 58-year-old male returns to clinic for follow-up of bilateral leg ulcers and right foot ulcers. He denies fever, chill, nausea, vomiting, loss of appetite. He had multiple advanced wound care product applications. He denies redness. He has trouble keeping his left limb compression dressing intact he has continued swelling. He does not use his compression pumps twice a day. He has a new blister to his right leg and would like this evaluated today. Progress of Wound: Improving right foot and heel and left stump site. New right leg blister - Physical Exam Vital Signs Temp Pulse Resp BP 97.7 F L 89 16 155/71 H 12/14/18 09:49 12/14/18 09:49 12/14/18 09:49 12/14/18 09:49 General: Alert, Oriented x3, Cooperative, No apparent distress Extremities: No cyanosis, Capillary Refill Less than 3 Seconds, No Calf Tenderness - Negative Harry and Badillo sign right, Diminished Peripheral Pulses, Edema - Bilateral lower extremities consistent with lymphedema, - - Left below- knee amputation stump site noted Skin: Ulcer/ Wound - No purulence, erythema, streaking, odor, or infection bilateral. Decreased maceration right foot. Peripheral skin is hairless and atrophic. apligraft medial left stump site remains intact with wound veil and steri strips intact Wound Measurements and Assessment WC - Nurse 1 - General Ulcer Measurement Start: 12/07/18 09:37 Freq: Status: Active Protocol: Activity Type Activity Date Activity User E-Sign Co-Sign Detail Recorded Client Recorded Date Recorded By Document 12/14/18 09:49 ANUP [id number] 12/14/18 10:01 ANUP 12/14/18 09:49 Wound Center Nurse 1 [Ulcer Assessment] #13 R Med Heel -Combined with other wound No -Current Size (cm) - Length 0.7 -Current Size (cm) - Width 0.5 -Current Size (cm) - Depth 0.1 -Total Square Cm 0.35 -Photo Taken No -Epithelialization Medium 34-66% -Tunneling No -Undermining/Tunneling No -Circular Undermining No -Exudate Amt Small -Exudate Type Serosanguineous -Wound Margin Flat & Intact -Granulation Amt Medium (34-66%) -Granulation Quality Red -Slough/Fibrin Yes -Necrosis Amt Small (1-33%) -Necrotic Tissue Type Adherent Slough -Structure Exposed N/A -Texture (Martha-wound Skin Appearance) Assessed, Localized Edema -Moisture (Martha-wound Skin Appearance Assessed,Dry/ ) Scaly -Color (Martha-wound Skin Appearance) Assessed -Temperature (Martha-wound Skin No Abnormality Appearance) (Pt Warm) -Tenderness on Palpation (Martha-wound Yes Skin Appearance) -Ulcer Cleansing Wound Cleanser -Foul Odor after Cleansing No #21 Right Foot-Toes w/Metatarsal Head circumfrential -Combined with other wound No -Current Size (cm) - Length 13.5 -Current Size (cm) - Width 7 -Current Size (cm) - Depth 0.1 -Total Square Cm 94.5 -Photo Taken No -Epithelialization None Present -Tunneling No -Undermining/Tunneling No -Circular Undermining No -Exudate Amt Medium -Exudate Type Serosanguineous -Wound Margin Flat & Intact -Granulation Amt Large (67-100%) -Granulation Quality [place] -Slough/Fibrin Yes -Necrosis Amt Small (1-33%) -Necrotic Tissue Type Adherent Slough -Structure Exposed N/A -Texture (Martha-wound Skin Appearance) Assessed, Localized Edema -Moisture (Martha-wound Skin Appearance Assessed,Dry/ ) Scaly -Color (Martha-wound Skin Appearance) Assessed -Temperature (Martha-wound Skin No Abnormality Appearance) (Pt Warm) -Tenderness on Palpation (Martha-wound No Skin Appearance) -Ulcer Cleansing Wound Cleanser -Foul Odor after Cleansing No [Edema Assessment] -Lower Limb Edema Present Yes -Right Calf (cm) 38.3 -Right Ankle (cm) 30.0 -Left Calf (cm) 49 WC - Nurse 2 - General Ulcer CM Notes Start: 12/07/18 09:37 Freq: Status: Active Protocol: Activity Type Activity Date Activity User E-Sign Co-Sign Detail Recorded Client Recorded Date Recorded By Document 12/14/18 10:24 ANUP [id number] 12/14/18 10:28 ANUP 12/14/18 10:24 Wound Center Nurse 2 [Procedure/Treatment] #22 left stump -Time 10:24 -Correct Patient Yes -Correct Side, Site, Position Yes -Correct Procedure Yes -Procedure Performed Yes -Type of Procedure Debridement -Clinical Debridement Subcutaneous -Post Debridement Size (cm) - Length 9 -Post Debridement Size (cm) - Width 7 -Post Debridement Size (cm) - Depth 0.1 -Total Square Cm 63 -Wound/Ulcer Outcome Not Healed -Ulcer Cleansing Rinsed/ Irrigated with Saline -Foul Odor after Cleansing No -Bioengineered Tissue Yes -Type of bioengineered Tissue Apligraf -Expiration Date 12/15/18 -Product Lot Number [id number] -Percent Used 100 -Saline Lot Number [id number] -Bleeding Controlled with Pressure -Offloading No -Treatment Response Procedure Tolerated Well #13 R Med Heel -Time 10:26 -Correct Patient Yes -Correct Side, Site, Position Yes -Correct Procedure Yes -Procedure Performed Yes -Type of Procedure Debridement -Clinical Debridement Subcutaneous -Post Debridement Size (cm) - Length 0.8 -Post Debridement Size (cm) - Width 0.5 -Post Debridement Size (cm) - Depth 0.1 -Total Square Cm 0.40 -Wound/Ulcer Outcome Not Healed -Ulcer Cleansing Rinsed/ Irrigated with Saline -Foul Odor after Cleansing No -Bioengineered Tissue Yes -Type of bioengineered Tissue Apligraf -Expiration Date 12/15/18 -Product Lot Number [id number] -Percent Used 100 -Saline Lot Number [id number] -Bleeding Controlled with Pressure -Offloading No -Treatment Response Procedure Tolerated Well #21 Right Foot-Toes w/Metatarsal Head circumfrential -Time 10:27 -Correct Patient Yes -Correct Side, Site, Position Yes -Correct Procedure Yes -Procedure Performed Yes -Type of Procedure Debridement -Clinical Debridement Subcutaneous -Post Debridement Size (cm) - Length 7 -Post Debridement Size (cm) - Width 3.5 -Post Debridement Size (cm) - Depth 0.1 -Total Square Cm 24.5 -Wound/Ulcer Outcome Not Healed -Ulcer Cleansing Rinsed/ Irrigated with Saline -Foul Odor after Cleansing No -Bioengineered Tissue No -Bleeding Controlled with Pressure -Offloading No -Treatment Response Procedure Tolerated Well [See Physician Procedure note for Specifics] Pain Scale: 0-10 Numeric [Pain] -Is Patient Pain Free? Yes Musculoskeletal: No Tenderness to Palpation of Joints or Extremities, Muscle Wasting, - - Compartment soft to palpate bilateral Neurological: - - Lack of epicritic sensation light touch consistent with neuropathy bilateral lower extremities Psych/Mental Status: Normal Affect, Appropriate Debridement Note Post-Debridement Measurements/Treatment WC - Nurse 2 - General Ulcer CM Notes Start: 12/07/18 09:37 Freq: Status: Active Protocol: Activity Type Activity Date Activity User E-Sign Co-Sign Detail Recorded Client Recorded Date Recorded By Document 12/07/18 10:57 [id number] 12/07/18 11:01 Document 12/14/18 10:24 JF [id number] 12/14/18 10:28 12/07/18 12/14/18 10:57 10:24 Wound Center Nurse 2 #22 left stump -Time 10:58 10:24 -Correct Patient Yes Yes -Correct Side, Site, Position Yes Yes -Correct Procedure Yes Yes -Procedure Performed Yes Yes -Type of Procedure Debridement Debridement -Clinical Debridement Subcutaneous Subcutaneous -Post Debridement Size (cm) - Length 15 9 -Post Debridement Size (cm) - Width 16.1 7 -Post Debridement Size (cm) - Depth 0.1 0.1 -Total Square Cm 241.5 63 -Wound/Ulcer Outcome Not Healed Not Healed -Ulcer Cleansing Rinsed/ Rinsed/ Irrigated with Irrigated with Saline Saline -Foul Odor after Cleansing No No -Bioengineered Tissue Yes Yes -Type of bioengineered Tissue Apligraf Apligraf -Expiration Date 09/11/18 12/15/18 -Product Lot Number [id number] -Percent Used 100 100 -Saline Lot Number [id number] -Bleeding Controlled with Pressure Pressure -Offloading No No -Treatment Response Procedure Procedure Tolerated Well Tolerated Well #13 R Med Heel -Time 10:26 -Correct Patient No Yes -Correct Side, Site, Position No Yes -Correct Procedure No Yes -Procedure Performed No Yes -Type of Procedure Debridement -Clinical Debridement Subcutaneous -Post Debridement Size (cm) - Length 0.8 -Post Debridement Size (cm) - Width 0.5 -Post Debridement Size (cm) - Depth 0.1 -Total Square Cm 0.40 -Wound/Ulcer Outcome Not Healed -Ulcer Cleansing Rinsed/ Irrigated with Saline -Foul Odor after Cleansing No -Bioengineered Tissue Yes -Type of bioengineered Tissue Apligraf -Expiration Date 12/15/18 -Product Lot Number [id number] -Percent Used 100 -Saline Lot Number [id number] -Bleeding Controlled with Pressure -Offloading No -Treatment Response Procedure Tolerated Well #21 Right Foot-Toes w/Metatarsal Head circumfrential -Time 10:59 10:27 -Correct Patient Yes Yes -Correct Side, Site, Position Yes Yes -Correct Procedure Yes Yes -Procedure Performed Yes Yes -Type of Procedure Debridement Debridement -Clinical Debridement Subcutaneous Subcutaneous -Post Debridement Size (cm) - Length 14.5 7 -Post Debridement Size (cm) - Width 9 3.5 -Post Debridement Size (cm) - Depth 0.1 0.1 -Total Square Cm 130.5 24.5 -Wound/Ulcer Outcome Not Healed Not Healed -Ulcer Cleansing Rinsed/ Rinsed/ Irrigated with Irrigated with Saline Saline -Foul Odor after Cleansing No No -Bioengineered Tissue No No -Bleeding Controlled with Pressure Pressure -Offloading No No -Treatment Response Procedure Procedure Tolerated Well Tolerated Well Pain Scale: 0-10 Numeric Is Patient Pain Free? Yes Yes Wound debrided: heel Laterality: Right Wound Grade/Stage: Grade 3 Type of Debridement: Excisional debridement Anesthesia Used: 5% Lidocaine Gel Depth: in the subcutaneous layer Percentage of wound debrided: 100 Instrument Used: #15 blade Tissue Removed: Devitalized subcutaneous, fibers, biofilm, slough Severity: Fat Layer Exposed Amount of bleeding with debridement: Mild Bleeding Controlled with: Pressure Patient tolerated procedure well - Additional Wound Wound debrided: Toe area Laterality: Right Wound Grade/Stage: Grade 1 Type of Debridement: Excisional debridement Anesthesia Used: 5% Lidocaine Gel Depth: in the subcutaneous layer Percentage of wound debrided: 50 Instrument Used: #15 blade Tissue Removed: Devitalized subcutaneous, fibers, biofilm, slough Severity: Fat Layer Exposed Amount of bleeding with debridement: Mild Bleeding Controlled with: Pressure Patient tolerated procedure: Patient tolerated procedure well - Additional Wound Wound debrided: lateral stump site Laterality: Left Wound Grade/Stage: grade 1 Type of Debridement: Excisional debridement Anesthesia Used: 5% Lidocaine Gel Depth: in the subcutaneous layer Percentage of wound debrided: 100 Instrument Used: #15 blade Tissue Removed: Devitalized subcutaneous, fibers, biofilm, slough Severity: Fat Layer Exposed Amount of bleeding with debridement: Mild Bleeding Controlled with: Pressure Patient tolerated procedure: Patient did not tolerate procedure well Assessment/Plan Assessment: ulcer right forefoot stable with fat layer exposed. Right heel ulcer with fat layer exposed. Left below-knee amputation with skin tissue exposed stable. Lymphedema. Chronic lower extremity edema and venous insufficiency. Morbid obesity. Type 2 diabetes uncontrolled with peripheral neuropathy. CKD. Hypertension. Malnutrition. Delayed wound healing. Nonadherence to treatment plan Plan: I reviewed and discussed his case. His new blister was noted on the right lateral leg. There are no signs of infection. This was drained of serous fluid only and the outer layer was kept intact as a biologic dressing. This will be monitored again next week. To avoid pressure on the site. It is noted that his leg is creeping into the wheel on his wheelchair and he is unaware of this. I advised him to wear the donut offloading pillow and prevent pressure on this site. the Apligraf was left intact to the left stump medial aspect. Debridement was performed to the right toe region, right heel, and lateral left stump site. Apligraf was applied to the left lateral stump site and right heel according to standard protocol and this was secured in place with a wound veil and Steri-Strips. Verbal consent was obtained he tolerated this well. This for limb salvage is medically necessary. To change only the secondary dressing every 1 to 2 days with Aquacel Ag to reduce maceration and also to the right toe region. He was advised to keep clean and intact until follow-up next week with a secondary dressing. Continue compression left with 3M2L; a more proximal application will be correct this week. Compliance is necessary for bilateral application. The patency of his previous arterial stent was checked with Dr. Nixon this year, and the current recommendation is to continue with strict compression with lymphedema pumps. Per patient, arterial duplex was performed during his last vascular surgery follow-up, and he appears to have continued perfusion to the right lower extremity and no vascular intervention is planned at this time. Continue protein suppplements and increased protein in diet. I also recommend a lymphedema clinic. He went approximately 3 years ago and found this to be very helpful. He no longer has his thigh-high compression garments that were arranged for him during this last session. [place] wrap order will be processed at this time for the right lower extremity for better edema control there is a lymphedema clinic in [place] and his information was sent over. They can only see him once he is d/c from home health; this is noted. To keep pressure off of his left below-knee amputation stump site. Bilateral offloading donut pillow were recommended. He is at risk for continued limb loss and due to his condition and he understands. Follow up in 1 week at the wound healing center. He was also advised to call sooner if he has any questions or concerns.
[2018-12-21 09:22] VITALS: BP 130/63; PULSE 16; RESP 16; TEMP 36; BMI 45.6
--- NOTE | 2018-12-21 09:39 | BH.SGPN.T2 ---
Behaviors/Verbalizations/Mental Status: [] Client Response/Progress/Benefit: [] Narrative Note: []Left stump- steristrips and Apligraph left intact. M. RN
--- NOTE | 2018-12-21 11:02 | PCM.WC.PN ---
(1) Chronic ulcer of right foot with fat layer exposed Status: Chronic Code(s): L97.512 - Non-pressure chronic ulcer of other part of right foot with fat layer exposed (2) Ulcer of left lower extremity with fat layer exposed Status: Chronic Code(s): L97.922 - Non-pressure chronic ulcer of unspecified part of left lower leg with fat layer exposed (3) Lymphedema Status: Chronic Code(s): I89.0 - Lymphedema, not elsewhere classified (4) Morbid obesity Status: Chronic Code(s): E66.01 - Morbid (severe) obesity due to excess calories (5) Type 2 diabetes mellitus with diabetic polyneuropathy Status: Chronic Code(s): E11.42 - Type 2 diabetes mellitus with diabetic polyneuropathy (6) Delayed wound healing Status: Chronic Code(s): T14.8 - Other injury of unspecified body region (7) Malnutrition Status: Chronic Code(s): E46 - Unspecified protein-calorie malnutrition Type of Wound Date of Service: 12/25/18 Chief Complaint: 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 Right toe ulcers. left stump ulcers History of Wound: 58-year-old male returns to clinic for follow-up of bilateral leg ulcers and right foot ulcers. He denies fever, chill, nausea, vomiting, loss of appetite. He had multiple advanced wound care product applications. He denies redness. He has trouble keeping his left limb compression dressing intact he has continued swelling. He does not use his compression pumps twice a day. Progress of Wound: Stable right foot and heel and left stump site - Physical Exam Vital Signs Temp Pulse Resp BP 96.8 F L 16 L 16 130/63 H 12/21/18 09:22 12/21/18 09:22 12/21/18 09:22 12/21/18 09:22 General: Alert, Oriented x3, Cooperative, No apparent distress Extremities: No cyanosis, Capillary Refill Less than 3 Seconds, No Calf Tenderness - Negative [place] right, Diminished Peripheral Pulses, Edema, - - Left below-knee amputation Skin: Ulcer/ Wound - No purulence, erythema, streaking, odor, infection. Peripheral skin is hairless and atrophic. Wound Measurements and Assessment WC - Nurse 1 - General Ulcer Measurement Start: 12/07/18 09:37 Freq: Status: Active Protocol: Activity Type Activity Date Activity User E-Sign Co-Sign Detail Recorded Client Recorded Date Recorded By Document 12/21/18 09:22 [id number] 12/21/18 09:46 12/21/18 09:22 Wound Center Nurse 1 [Ulcer Assessment] #22 left stump -Combined with other wound No -Photo Taken No -Tunneling No -Undermining/Tunneling No -Circular Undermining No -Exudate Amt Small -Exudate Type Serous -Slough/Fibrin No -Structure Exposed None/Limited to Skin Breakdown -Texture (Martha-wound Skin Appearance) Friable, Localized Edema -Moisture (Martha-wound Skin Appearance Maceration ) -Color (Martha-wound Skin Appearance) Erythema -Temperature (Martha-wound Skin No Abnormality Appearance) (Pt Warm) -Tenderness on Palpation (Martha-wound No Skin Appearance) -Foul Odor after Cleansing No -Anesthetic Used 4% Lidocaine Solution #13 R Med Heel -Combined with other wound No -Current Size (cm) - Length 0.8 -Current Size (cm) - Width 1.5 -Current Size (cm) - Depth 0.1 -Total Square Cm 1.20 -Photo Taken No -Epithelialization Large 67-100% -Tunneling No -Undermining/Tunneling No -Circular Undermining No -Exudate Amt Small -Exudate Type Serosanguineous -Wound Margin Flat & Intact -Granulation Amt Large (67-100%) -Granulation Quality [place] -Slough/Fibrin Yes -Necrosis Amt None Present (0 %) -Necrotic Tissue Type Adherent Slough -Structure Exposed None/Limited to Skin Breakdown -Texture (Martha-wound Skin Appearance) Friable, Scarring -Moisture (Martha-wound Skin Appearance Maceration,Dry/ ) Scaly -Color (Martha-wound Skin Appearance) Assessed,Palor -Temperature (Martha-wound Skin No Abnormality Appearance) (Pt Warm) -Tenderness on Palpation (Martha-wound No Skin Appearance) #21 Right Foot-Toes w/Metatarsal Head circumfrential -Current Size (cm) - Length 14.5 -Current Size (cm) - Width 10.5 -Current Size (cm) - Depth 0.4 -Total Square Cm 152.25 -Photo Taken No -Epithelialization None Present -Undermining/Tunneling No -Circular Undermining No -Exudate Amt Large -Exudate Type Serosanguineous -Wound Margin Fibrotic Scar, Thickened Scar -Granulation Amt Medium (34-66%) -Granulation Quality Red -Necrosis Amt Small (1-33%) -Necrotic Tissue Type Eschar -Texture (Martha-wound Skin Appearance) Assessed, Excoriation, Localized Edema -Moisture (Martha-wound Skin Appearance Assessed, ) Maceration, Weeping -Color (Martha-wound Skin Appearance) Erythema -Temperature (Martha-wound Skin No Abnormality Appearance) (Pt Warm) -Tenderness on Palpation (Martha-wound No Skin Appearance) -Foul Odor after Cleansing No -Anesthetic Used 4% Lidocaine Solution [Edema Assessment] -Lower Limb Edema Present Yes -Right Calf (cm) 41 -Right Ankle (cm) 32.4 -Left Calf (cm) 48 12/21/18 09:39 Individual Note by DayMeera Behaviors/Verbalizations/Mental Status: [] Client Response/Progress/Benefit: [] Narrative Note: []Left stump- steristrips and Apligraph left intact. M. Day RN Initialized on 12/21/18 09:39 - END OF NOTE WC - Nurse 2 - General Ulcer CM Notes Start: 12/07/18 09:37 Freq: Status: Active Protocol: Activity Type Activity Date Activity User E-Sign Co-Sign Detail Recorded Client Recorded Date Recorded By Document 12/21/18 10:03 AN [id number] 12/21/18 10:07 AN 12/21/18 10:03 Wound Center Nurse 2 [Procedure/Treatment] #22 left stump -Time 10:05 -Correct Patient Yes -Correct Side, Site, Position Yes -Correct Procedure Yes -Procedure Performed Yes -Type of Procedure Debridement -Clinical Debridement Subcutaneous -Post Debridement Size (cm) - Length 8 -Post Debridement Size (cm) - Width 5 -Post Debridement Size (cm) - Depth 0.1 -Total Square Cm 40 -Wound/Ulcer Outcome Not Healed -Treatment Response Procedure Tolerated Well #13 R Med Heel -Time 10:06 -Correct Patient Yes -Correct Side, Site, Position Yes -Correct Procedure Yes -Procedure Performed Yes -Type of Procedure Debridement -Clinical Debridement Subcutaneous -Post Debridement Size (cm) - Length 0.1 -Post Debridement Size (cm) - Width 0.1 -Post Debridement Size (cm) - Depth 0.1 -Total Square Cm 0.01 #21 Right Foot-Toes w/Metatarsal Head circumfrential -Time 10:07 -Correct Patient Yes -Correct Side, Site, Position Yes -Correct Procedure Yes -Procedure Performed Yes -Type of Procedure Debridement -Clinical Debridement Subcutaneous -Post Debridement Size (cm) - Length 14.5 -Post Debridement Size (cm) - Width 10.5 -Post Debridement Size (cm) - Depth 0.1 -Total Square Cm 152.25 -Wound/Ulcer Outcome Not Healed -Treatment Response Procedure Tolerated Well [See Physician Procedure note for Specifics] Pain Scale: 0-10 Numeric [Pain] -Is Patient Pain Free? Yes Musculoskeletal: No Tenderness to Palpation of Joints or Extremities, Muscle Wasting Neurological: - - lack of sensation via light touch Psych/Mental Status: Normal Affect, Appropriate Debridement Note Post-Debridement Measurements/Treatment WC - Nurse 2 - General Ulcer CM Notes Start: 12/07/18 09:37 Freq: Status: Active Protocol: Activity Type Activity Date Activity User E-Sign Co-Sign Detail Recorded Client Recorded Date Recorded By Document 12/07/18 10:57 [id number] 12/07/18 11:01 Document 12/14/18 10:24 JF [id number] 12/14/18 10:28 JF Document 12/21/18 10:03 AN [id number] 12/21/18 10:07 AN 12/07/18 12/14/18 12/21/18 10:57 10:24 10:03 Wound Center Nurse 2 #22 left stump -Time 10:58 10:24 10:05 -Correct Patient Yes Yes Yes -Correct Side, Site, Position Yes Yes Yes -Correct Procedure Yes Yes Yes -Procedure Performed Yes Yes Yes -Type of Procedure Debridement Debridement Debridement -Clinical Debridement Subcutaneous Subcutaneous Subcutaneous -Post Debridement Size (cm) - Length 15 9 8 -Post Debridement Size (cm) - Width 16.1 7 5 -Post Debridement Size (cm) - Depth 0.1 0.1 0.1 -Total Square Cm 241.5 63 40 -Wound/Ulcer Outcome Not Healed Not Healed Not Healed -Ulcer Cleansing Rinsed/ Rinsed/ Irrigated with Irrigated with Saline Saline -Foul Odor after Cleansing No No -Bioengineered Tissue Yes Yes -Type of bioengineered Tissue Apligraf Apligraf -Expiration Date 09/11/18 12/15/18 -Product Lot Number [id number] -Percent Used 100 100 -Saline Lot Number [id number] -Bleeding Controlled with Pressure Pressure -Offloading No No -Treatment Response Procedure Procedure Procedure Tolerated Well Tolerated Well Tolerated Well #13 R Med Heel -Time 10:26 10:06 -Correct Patient No Yes Yes -Correct Side, Site, Position No Yes Yes -Correct Procedure No Yes Yes -Procedure Performed No Yes Yes -Type of Procedure Debridement Debridement -Clinical Debridement Subcutaneous Subcutaneous -Post Debridement Size (cm) - Length 0.8 0.1 -Post Debridement Size (cm) - Width 0.5 0.1 -Post Debridement Size (cm) - Depth 0.1 0.1 -Total Square Cm 0.40 0.01 -Wound/Ulcer Outcome Not Healed -Ulcer Cleansing Rinsed/ Irrigated with Saline -Foul Odor after Cleansing No -Bioengineered Tissue Yes -Type of bioengineered Tissue Apligraf -Expiration Date 12/15/18 -Product Lot Number [id number] -Percent Used 100 -Saline Lot Number [id number] -Bleeding Controlled with Pressure -Offloading No -Treatment Response Procedure Tolerated Well #21 Right Foot-Toes w/Metatarsal Head circumfrential -Time 10:59 10:27 10:07 -Correct Patient Yes Yes Yes -Correct Side, Site, Position Yes Yes Yes -Correct Procedure Yes Yes Yes -Procedure Performed Yes Yes Yes -Type of Procedure Debridement Debridement Debridement -Clinical Debridement Subcutaneous Subcutaneous Subcutaneous -Post Debridement Size (cm) - Length 14.5 7 14.5 -Post Debridement Size (cm) - Width 9 3.5 10.5 -Post Debridement Size (cm) - Depth 0.1 0.1 0.1 -Total Square Cm 130.5 24.5 152.25 -Wound/Ulcer Outcome Not Healed Not Healed Not Healed -Ulcer Cleansing Rinsed/ Rinsed/ Irrigated with Irrigated with Saline Saline -Foul Odor after Cleansing No No -Bioengineered Tissue No No -Bleeding Controlled with Pressure Pressure -Offloading No No -Treatment Response Procedure Procedure Procedure Tolerated Well Tolerated Well Tolerated Well Pain Scale: 0-10 Numeric Is Patient Pain Free? Yes Yes Yes Wound debrided: toe region Laterality: Right Wound Grade/Stage: grade 1 Type of Debridement: Excisional debridement Anesthesia Used: 5% Lidocaine Gel Depth: in the subcutaneous layer Percentage of wound debrided: 50 Instrument Used: #15 blade Tissue Removed: fibrous, devitalized subcutaneous, biofilm, slough Severity: Fat Layer Exposed Amount of bleeding with debridement: Mild Bleeding Controlled with: Pressure Patient tolerated procedure well - Additional Wound Wound debrided: BKA stump site Laterality: Left Wound Grade/Stage: grade 1 Type of Debridement: Excisional debridement Anesthesia Used: 5% Lidocaine Gel Depth: in the subcutaneous layer Percentage of wound debrided: 100 Instrument Used: #15 blade Tissue Removed: fibrous, devitalized subcutaneous, biofilm, slough Severity: Fat Layer Exposed Amount of bleeding with debridement: Mild Bleeding Controlled with: Pressure Patient tolerated procedure: Patient tolerated procedure well Assessment/Plan Assessment: ulcer right forefoot stable with fat layer exposed. Right heel ulcer with fat layer exposed. Left below-knee amputation with skin tissue exposed stable. Lymphedema. Chronic lower extremity edema and venous insufficiency. Morbid obesity. Type 2 diabetes uncontrolled with peripheral neuropathy. CKD. Hypertension. Malnutrition. Delayed wound healing. Nonadherence to treatment plan Plan: I reviewed and discussed his case. There are no signs of infection. I advised him to wear the donut offloading pillow and prevent pressure on this site. the Apligraf was left intact to the right heel aspect. Other previous Apligraf sites were removed and the ulcers were debrided as noted in the clinical panel. To change dressing daily with Aquacel Ag which applied today. Additional Apligraf application will be considered next week. He was advised to keep clean and intact until follow-up next week with a secondary dressing. Continue compression left with 3M2L; a more proximal application will be correct this week. Compliance is necessary for bilateral application. The patency of his previous arterial stent was checked with Dr. Nixon this year, and the current recommendation is to continue with strict compression with lymphedema pumps. Per patient, arterial duplex was performed during his last vascular surgery follow-up, and he appears to have continued perfusion to the right lower extremity and no vascular intervention is planned at this time. Continue protein suppplements and increased protein in diet. I also recommend a lymphedema clinic. He went approximately 3 years ago and found this to be very helpful. He no longer has his thigh-high compression garments that were arranged for him during this last session. [place] wrap order will be processed at this time for the right lower extremity for better edema control there is a lymphedema clinic in [place] and his information was sent over. They can only see him once he is d/c from home health; this is noted. To keep pressure off of his left below-knee amputation stump site. Bilateral offloading donut pillow were recommended. He is at risk for continued limb loss and due to his condition and he understands. Follow up in 1 week at the wound healing center. He was also advised to call sooner if he has any questions or concerns.
[2018-12-28 09:05] VITALS: BP 162/78; PULSE 78; RESP 16; BMI 45.6
--- NOTE | 2018-12-28 11:23 | PN.PCM_ITS ---
(1) Ulcer of right lower extremity with fat layer exposed Status: Chronic Current Visit: Yes Code(s): L97.912 - Non-pressure chronic ulcer of unspecified part of right lower leg with fat layer exposed (2) Chronic ulcer of right foot with fat layer exposed Status: Chronic Current Visit: Yes Code(s): L97.512 - Non-pressure chronic ulcer of other part of right foot with fat layer exposed (3) Ulcer of left lower extremity with fat layer exposed Status: Chronic Current Visit: Yes Code(s): L97.922 - Non-pressure chronic ulcer of unspecified part of left lower leg with fat layer exposed (4) Lymphedema Status: Chronic Current Visit: Yes Code(s): I89.0 - Lymphedema, not elsewhere classified (5) Morbid obesity Status: Chronic Current Visit: Yes Code(s): E66.01 - Morbid (severe) obesity due to excess calories (6) Type 2 diabetes mellitus with diabetic polyneuropathy Status: Chronic Current Visit: Yes Code(s): E11.42 - Type 2 diabetes mellitus with diabetic polyneuropathy (7) Delayed wound healing Status: Chronic Current Visit: Yes Code(s): T14.8 - Other injury of unspecified body region (8) Malnutrition Status: Chronic Current Visit: Yes Code(s): E46 - Unspecified protein- calorie malnutrition Type of Wound Date of Service: 12/28/18 Chief Complaint: 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 Right toe ulcers. left stump ulcers. New right leg ulcer at previous blister site History of Wound: 58-year-old male returns to clinic for follow-up of bilateral leg ulcers and right foot ulcers. He denies fever, chill, nausea, vomiting, loss of appetite. He had multiple advanced wound care product applications. He denies redness. He has trouble keeping his left limb compression dres sing intact he has continued swelling. He does not use his compression pumps twice a day. He had increased swelling due to the heat. Progress of Wound: Stable right foot and heel and left stump site. New right leg ulcer previous blister site - Physical Exam Vital Signs Temp Pulse Resp BP 96.8 F L 78 16 162/78 H 12/21/18 09:22 12/28/18 09:05 12/28/18 09:05 12/28/18 09:05 General: Alert, Oriented x3, Cooperative, No apparent distress HEENT: Atraumatic Extremities: No cyanosis, Capillary Refill Less than 3 Seconds, No Calf Tenderness - Negative Harry and Badillo sign right. Lymphedema bilateral. Left below-knee amputation. Compartment soft to palpate bilateral, Diminished Peripheral Pulses, Edema Skin: Ulcer/ Wound - No purulence, erythema, streaking, odor, infection. There is increased maceration and weeping to all sites. There is new skin discontinuity and a cluster area to the right lateral posterior leg with granulation tissue exposed near the previous blister site. No deep probing. There is maceration interdigitally right Wound Measurements and Assessment WC - Nurse 1 - General Ulcer Measurement Start: 12/07/18 09:37 Freq: Status: Active Protocol: Activity Type Activity Date Activity User E-Sign Co-Sign Detail Recorded Client Recorded Date Recorded By Document 12/28/18 09:05 [facility] [id number] 12/28/18 09:25 [facility] 12/28/18 09:05 Wound Center Nurse 1 [Ulcer Assessment] #22 left stump -Combined with other wound No -Current Size (cm) - Length 12 -Current Size (cm) - Width 14.6 -Current Size (cm) - Depth 0.1 -Total Square Cm 175.2 -Date of Last Picture (Recall this 12/28/18 field) -Photo Taken Yes -Epithelialization None Present -Tunneling No -Undermining/Tunneling No -Circular Undermining No -Exudate Amt Large -Exudate Type Serosanguineous -Wound Margin Flat & Intact -Granulation Amt Large (67-100%) -Granulation Quality [place] -Slough/Fibrin Yes -Necrosis Amt Medium (34-66%) -Necrotic Tissue Type Adherent Slough -Texture (Martha-wound Skin Appearance) Assessed, Friable, Scarring -Moisture (Martha-wound Skin Appearance Maceration, ) Weeping -Color (Martha-wound Skin Appearance) Assessed,Palor -Temperature (Martha-wound Skin No Abnormality Appearance) (Pt Warm) -Tenderness on Palpation (Martha-wound No Skin Appearance) -Ulcer Cleansing soap and water -Foul Odor after Cleansing No -Anesthetic Used 4% Lidocaine Solution #13 R Med Heel -Combined with other wound No -Current Size (cm) - Length 2.4 -Current Size (cm) - Width 2.1 -Current Size (cm) - Depth 0.1 -Total Square Cm 5.04 -Date of Last Picture (Recall this 12/28/18 field) -Photo Taken Yes -Epithelialization None Present -Tunneling No -Undermining/Tunneling No -Circular Undermining No -Exudate Amt Large -Exudate Type Serosanguineous -Wound Margin Flat & Intact -Granulation Amt Large (67-100%) -Granulation Quality [place] -Slough/Fibrin Yes -Necrosis Amt Small (1-33%) -Necrotic Tissue Type Adherent Slough -Texture (Martha-wound Skin Appearance) Assessed,Callus ,Scarring -Moisture (Martha-wound Skin Appearance Maceration,Dry/ ) Scaly -Color (Martha-wound Skin Appearance) Assessed,Palor -Temperature (Martha-wound Skin No Abnormality Appearance) (Pt Warm) -Tenderness on Palpation (Martha-wound No Skin Appearance) -Ulcer Cleansing soap and water -Foul Odor after Cleansing No -Anesthetic Used 4% Lidocaine Solution #21 Right Foot-Toes w/Metatarsal Head circumfrential -Combined with other wound No -Current Size (cm) - Length 13.5 -Current Size (cm) - Width 9.2 -Current Size (cm) - Depth 0.1 -Total Square Cm 124.20 -Date of Last Picture (Recall this 12/28/18 field) -Photo Taken Yes -Epithelialization None Present -Tunneling No -Undermining/Tunneling No -Circular Undermining No -Exudate Amt Large -Exudate Type Serosanguineous -Wound Margin Flat & Intact -Granulation Amt Large (67-100%) -Granulation Quality [place] -Slough/Fibrin Yes -Necrosis Amt Small (1-33%) -Necrotic Tissue Type Adherent Slough -Texture (Martha-wound Skin Appearance) Assessed, Friable, Scarring -Moisture (Martha-wound Skin Appearance Assessed, ) Maceration, Weeping -Color (Martha-wound Skin Appearance) Palor -Temperature (Martha-wound Skin No Abnormality Appearance) (Pt Warm) -Tenderness on Palpation (Martha-wound No Skin Appearance) -Ulcer Cleansing soap and water -Foul Odor after Cleansing No -Anesthetic Used 4% Lidocaine Solution [Edema Assessment] -Lower Limb Edema Present Yes -Right Calf (cm) 40.7 -Right Ankle (cm) 31.5 -Left Calf (cm) 49.5 WC - Nurse 2 - General Ulcer CM Notes Start: 12/07/18 09:37 Freq: Status: Active Protocol: Activity Type Activity Date Activity User E-Sign Co-Sign Detail Recorded Client Recorded Date Recorded By Document 12/28/18 10:02 AN [id number] 12/28/18 10:05 AN 12/28/18 10:02 Wound Center Nurse 2 [Procedure/Treatment] #26 right lateral leg cluster -Time 10:04 -Correct Patient Yes -Correct Side, Site, Position Yes -Correct Procedure Yes -Procedure Performed Yes -Type of Procedure Debridement -Clinical Debridement Subcutaneous -Post Debridement Size (cm) - Length 8 -Post Debridement Size (cm) - Width 5 -Post Debridement Size (cm) - Depth 0.1 -Total Square Cm 40 -Wound/Ulcer Outcome Not Healed -Bleeding Controlled with Pressure -Treatment Response Procedure Tolerated Well #22 left stump -Time 10:02 -Correct Patient Yes -Correct Side, Site, Position Yes -Correct Procedure Yes -Procedure Performed Yes -Type of Procedure Debridement -Clinical Debridement Subcutaneous -Post Debridement Size (cm) - Length 12.1 -Post Debridement Size (cm) - Width 14.7 -Post Debridement Size (cm) - Depth 0.1 -Total Square Cm 177.87 -Wound/Ulcer Outcome Not Healed -Ulcer Cleansing Rinsed/ Irrigated with Saline -Foul Odor after Cleansing No -Bioengineered Tissue No -Bleeding Controlled with Pressure -Offloading Yes -Treatment Response Procedure Tolerated Well #13 R Med Heel -Time 10:03 -Correct Patient Yes -Correct Side, Site, Position Yes -Correct Procedure Yes -Procedure Performed Yes -Type of Procedure Debridement -Clinical Debridement Subcutaneous -Post Debridement Size (cm) - Length 2.5 -Post Debridement Size (cm) - Width 2.2 -Post Debridement Size (cm) - Depth 0.1 -Total Square Cm 5.50 -Wound/Ulcer Outcome Not Healed -Ulcer Cleansing Rinsed/ Irrigated with Saline -Foul Odor after Cleansing No -Bioengineered Tissue No -Bleeding Controlled with Pressure -Offloading Yes -Treatment Response Procedure Tolerated Well #21 Right Foot-Toes w/Metatarsal Head circumfrential -Time 10:03 -Correct Patient Yes -Correct Side, Site, Position Yes -Correct Procedure Yes -Procedure Performed Yes -Type of Procedure Debridement -Clinical Debridement Subcutaneous -Post Debridement Size (cm) - Length 13.6 -Post Debridement Size (cm) - Width 9.3 -Post Debridement Size (cm) - Depth 0.1 -Total Square Cm 126.48 -Wound/Ulcer Outcome Not Healed -Bleeding Controlled with Pressure -Treatment Response Procedure Tolerated Well [See Physician Procedure note for Specifics] Pain Scale: 0-10 Numeric [Pain] -Is Patient Pain Free? Yes Musculoskeletal: No Tenderness to Palpation of Joints or Extremities, Muscle Wasting Neurological: - - Lack of normal epicritic sensation consistent with neuropathy Psych/Mental Status: Normal Affect, Appropriate Debridement Note Post-Debridement Measurements/Treatment WC - Nurse 2 - General Ulcer CM Notes Start: 12/07/18 09:37 Freq: Status: Active Protocol: Activity Type Activity Date Activity User E-Sign Co-Sign Detail Recorded Client Recorded Date Recorded By Document 12/07/18 10:57 [id number] 12/07/18 11:01 Document 12/14/18 10:24 [id number] [id number] 12/14/18 10:28 Document 12/21/18 10:03 AN [id number] 12/21/18 10:07 AN Document 12/28/18 10:02 AN [id number] 12/28/18 10:05 AN 12/07/18 12/14/18 12/21/18 10:57 10:24 10:03 Wound Center Nurse 2 #26 right lateral leg cluster -Time -Correct Patient -Correct Side, Site, Position -Correct Procedure -Procedure Performed -Type of Procedure -Clinical Debridement -Post Debridement Size (cm) - Length -Post Debridement Size (cm) - Width -Post Debridement Size (cm) - Depth -Total Square Cm -Wound/Ulcer Outcome -Bleeding Controlled with -Treatment Response #22 left stump -Time 10:58 10:24 10:05 -Correct Patient Yes Yes Yes -Correct Side, Site, Position Yes Yes Yes -Correct Procedure Yes Yes Yes -Procedure Performed Yes Yes Yes -Type of Procedure Debridement Debridement Debridement -Clinical Debridement Subcutaneous Subcutaneous Subcutaneous -Post Debridement Size (cm) - Length 15 9 8 -Post Debridement Size (cm) - Width 16.1 7 5 -Post Debridement Size (cm) - Depth 0.1 0.1 0.1 -Total Square Cm 241.5 63 40 -Wound/Ulcer Outcome Not Healed Not Healed Not Healed -Ulcer Cleansing Rinsed/ Rinsed/ Irrigated with Irrigated with Saline Saline -Foul Odor after Cleansing No No -Bioengineered Tissue Yes Yes -Type of bioengineered Tissue Apligraf Apligraf -Expiration Date 09/11/18 12/15/18 -Product Lot Number [id number] -Percent Used 100 100 -Saline Lot Number [id number] -Bleeding Controlled with Pressure Pressure -Offloading No No -Treatment Response Procedure Procedure Procedure Tolerated Well Tolerated Well Tolerated Well #13 R Med Heel -Time 10:26 10:06 -Correct Patient No Yes Yes -Correct Side, Site, Position No Yes Yes -Correct Procedure No Yes Yes -Procedure Performed No Yes Yes -Type of Procedure Debridement Debridement -Clinical Debridement Subcutaneous Subcutaneous -Post Debridement Size (cm) - Length 0.8 0.1 -Post Debridement Size (cm) - Width 0.5 0.1 -Post Debridement Size (cm) - Depth 0.1 0.1 -Total Square Cm 0.40 0.01 -Wound/Ulcer Outcome Not Healed -Ulcer Cleansing Rinsed/ Irrigated with Saline -Foul Odor after Cleansing No -Bioengineered Tissue Yes -Type of bioengineered Tissue Apligraf -Expiration Date 12/15/18 -Product Lot Number [id number] -Percent Used 100 -Saline Lot Number [id number] -Bleeding Controlled with Pressure -Offloading No -Treatment Response Procedure Tolerated Well #21 Right Foot-Toes w/Metatarsal Head circumfrential -Time 10:59 10:27 10:07 -Correct Patient Yes Yes Yes -Correct Side, Site, Position Yes Yes Yes -Correct Procedure Yes Yes Yes -Procedure Performed Yes Yes Yes -Type of Procedure Debridement Debridement Debridement -Clinical Debridement Subcutaneous Subcutaneous Subcutaneous -Post Debridement Size (cm) - Length 14.5 7 14.5 -Post Debridement Size (cm) - Width 9 3.5 10.5 -Post Debridement Size (cm) - Depth 0.1 0.1 0.1 -Total Square Cm 130.5 24.5 152.25 -Wound/Ulcer Outcome Not Healed Not Healed Not Healed -Ulcer Cleansing Rinsed/ Rinsed/ Irrigated with Irrigated with Saline Saline -Foul Odor after Cleansing No No -Bioengineered Tissue No No -Bleeding Controlled with Pressure Pressure -Offloading No No -Treatment Response Procedure Procedure Procedure Tolerated Well Tolerated Well Tolerated Well Pain Scale: 0-10 Numeric Is Patient Pain Free? Yes Yes Yes 12/28/18 10:02 Wound Center Nurse 2 #26 right lateral leg cluster -Time 10:04 -Correct Patient Yes -Correct Side, Site, Position Yes -Correct Procedure Yes -Procedure Performed Yes -Type of Procedure Debridement -Clinical Debridement Subcutaneous -Post Debridement Size (cm) - Length 8 -Post Debridement Size (cm) - Width 5 -Post Debridement Size (cm) - Depth 0.1 -Total Square Cm 40 -Wound/Ulcer Outcome Not Healed -Bleeding Controlled with Pressure -Treatment Response Procedure Tolerated Well #22 left stump -Time 10:02 -Correct Patient Yes -Correct Side, Site, Position Yes -Correct Procedure Yes -Procedure Performed Yes -Type of Procedure Debridement -Clinical Debridement Subcutaneous -Post Debridement Size (cm) - Length 12.1 -Post Debridement Size (cm) - Width 14.7 -Post Debridement Size (cm) - Depth 0.1 -Total Square Cm 177.87 -Wound/Ulcer Outcome Not Healed -Ulcer Cleansing Rinsed/ Irrigated with Saline -Foul Odor after Cleansing No -Bioengineered Tissue No -Type of bioengineered Tissue -Expiration Date -Product Lot Number -Percent Used -Saline Lot Number -Bleeding Controlled with Pressure -Offloading Yes -Treatment Response Procedure Tolerated Well #13 R Med Heel -Time 10:03 -Correct Patient Yes -Correct Side, Site, Position Yes -Correct Procedure Yes -Procedure Performed Yes -Type of Procedure Debridement -Clinical Debridement Subcutaneous -Post Debridement Size (cm) - Length 2.5 -Post Debridement Size (cm) - Width 2.2 -Post Debridement Size (cm) - Depth 0.1 -Total Square Cm 5.50 -Wound/Ulcer Outcome Not Healed -Ulcer Cleansing Rinsed/ Irrigated with Saline -Foul Odor after Cleansing No -Bioengineered Tissue No -Type of bioengineered Tissue -Expiration Date -Product Lot Number -Percent Used -Saline Lot Number -Bleeding Controlled with Pressure -Offloading Yes -Treatment Response Procedure Tolerated Well #21 Right Foot-Toes w/Metatarsal Head circumfrential -Time 10:03 -Correct Patient Yes -Correct Side, Site, Position Yes -Correct Procedure Yes -Procedure Performed Yes -Type of Procedure Debridement -Clinical Debridement Subcutaneous -Post Debridement Size (cm) - Length 13.6 -Post Debridement Size (cm) - Width 9.3 -Post Debridement Size (cm) - Depth 0.1 -Total Square Cm 126.48 -Wound/Ulcer Outcome Not Healed -Ulcer Cleansing -Foul Odor after Cleansing -Bioengineered Tissue -Bleeding Controlled with Pressure -Offloading -Treatment Response Procedure Tolerated Well Pain Scale: 0-10 Numeric Is Patient Pain Free? Yes Wound debrided: leg lateral/posterior Laterality: Right Wound Grade/Stage: grade 1 Type of Debridement: Excisional debridement Anesthesia Used: 5% Lidocaine Gel Depth: in the subcutaneous layer Percentage of wound debrided: 10 Instrument Used: #15 blade Tissue Removed: fibrous, devitalized subcutaneous, biofilm, slough Severity: Fat Layer Exposed Amount of bleeding with debridement: Mild Bleeding Controlled with: Pressure Patient tolerated procedure well - Additional Wound Wound debrided: heel Laterality: Right Wound Grade/Stage: grade 3 Type of Debridement: Excisional debridement Anesthesia Used: 5% Lidocaine Gel Depth: in the subcutaneous layer Percentage of wound debrided: 100 Instrument Used: #15 blade Tissue Removed: fibrous, devitalized subcutaneous, biofilm, slough Severity: Fat Layer Exposed Amount of bleeding with debridement: Mild Bleeding Controlled with: Pressure Patient tolerated procedure: Patient tolerated procedure well - Additional Wound Wound debrided: toes cluster Laterality: Right Wound Grade/Stage: grade 1 Type of Debridement: Excisional debridement Anesthesia Used: 4% Lidocaine Solution Depth: in the subcutaneous layer Percentage of wound debrided: 100 Instrument Used: #15 blade Tissue Removed: fibrous, devitalized subcutaneous, biofilm, slough Severity: Fat Layer Exposed Amount of bleeding with debridement: Mild Bleeding Controlled with: Pressure Patient tolerated procedure: Patient tolerated procedure well - Additional Wound Wound debrided: below knee amputation stump site Laterality: Left Wound Grade/Stage: grade 1 Type of Debridement: Excisional debridement Anesthesia Used: 4% Lidocaine Solution Depth: in the subcutaneous layer Percentage of wound debrided: 100 Instrument Used: #15 blade Tissue Removed: fibrous, devitalized subcutaneous, biofilm, slough Severity: Fat Layer Exposed Amount of bleeding with debridement: Mild Bleeding Controlled with: Pressure Patient tolerated procedure: Patient tolerated procedure well Assessment/Plan Active Problems Ulcer of right lower extremity with fat layer exposed (Chronic) Lymphedema (Chronic) Chronic ulcer of right foot with fat layer exposed (Chronic) Ulcer of left lower extremity with fat layer exposed (Chronic) Morbid obesity (Chronic) Type 2 diabetes mellitus with diabetic polyneuropathy (Chronic) Delayed wound healing (Chronic) Malnutrition (Chronic) Assessment: ulcer right forefoot stable with fat layer exposed. Right heel ulcer with fat layer exposed. Left below-knee amputation with skin tissue exposed stable. New right leg ulcer cluster of fat layer exposed, no infection. Increased bilateral maceration. Lymphedema. Chronic lower extremity edema and venous insufficiency. Morbid obesity. Type 2 diabetes uncontrolled with peripheral neuropathy. CKD. Hypertension. Malnutrition. Delayed wound healing. Nonadherence to treatment plan Plan: I reviewed and discussed his case. There are no signs of infection. I advised him to wear the donut offloading pillow and prevent pressure on this site. I do not recommend advanced wound healing clinic application due to increased maceration and weeping. To change dressing daily with Aquacel Ag and Hydrofera Blue which applied today. This was coordinated several times over the phone via nursing staff in which we have identified Hydrofera Blue or similar products are not available. It is okay to apply Aquacel Ag and OPTi foam instead. Is also clarify that the nursing is not able to perform 3M to L dressings on a daily basis due to supply concerns. Therefore it is okay to have this applied up to 1 time a week and leave in place for 2 days other than that he can have the compression applied with layers of Jose Antonio wraps with his other daily dressing changes. The goal of the dressing changes are to avoid moist macerated dressings from sitting on the wound for extended period of time and also to maintain appropriate compression. The patient understands his noncompliance in combination with his chronic venous insufficiency and lymphedema is contributing to exacerbation. The patency of his previous arterial stent was checked with Dr. Nixon this year, and the current recommendation is to continue with strict compression with lymphedema pumps. Per patient, arterial duplex was performed during his last vascular surgery follow-up, and he appears to have continued perfusion to the right lower extremity and no vascular intervention is planned at this time. Continue protein suppplements and increased protein in diet. I also recommend a lymphedema clinic. He went approximately 3 years ago and found this to be very helpful. He no longer has his thigh-high compression garments that were arranged for him during this last session. [place] wrap order will be processed at this time for the right lower extremity for better edema control there is a lymphedema clinic in [place] and his information was sent over. They can only see him once he is d/c from home health; this is noted. To keep pressure off of his left below-knee amputation stump site. Bilateral offloading donut pillow were recommended. He is at risk for continued limb loss and due to his condition and he understands. Follow up in 1 week at the wound healing center. He was also advised to call sooner if he has any questions or concerns.
[2019-01-04 09:19] VITALS: BP 130/65; PULSE 89; RESP 18; TEMP 36.1; BMI 45.6
--- NOTE | 2019-01-04 11:33 | PN.PCM_ITS ---
(1) Ulcer of right lower extremity with fat layer exposed Status: Chronic Code(s): L97.912 - Non-pressure chronic ulcer of unspecified part of right lower leg with fat layer exposed (2) Chronic ulcer of right foot with fat layer exposed Status: Chronic Code(s): L97.512 - Non-pressure chronic ulcer of other part of right foot with fat layer exposed (3) Ulcer of left lower extremity with fat layer exposed Status: Chronic Code(s): L97.922 - Non-pressure chronic ulcer of unspecified part of left lower leg with fat layer exposed (4) Lymphedema Status: Chronic Code(s): I89.0 - Lymphedema, not elsewhere classified (5) Morbid obesity Status: Chronic Code(s): E66.01 - Morbid (severe) obesity due to excess calories (6) Type 2 diabetes mellitus with diabetic polyneuropathy Status: Chronic Code(s): E11.42 - Type 2 diabetes mellitus with diabetic polyneuropathy (7) Delayed wound healing Status: Chronic Code(s): T14.8 - Other injury of unspecified body region (8) Malnutrition Status: Chronic Code(s): E46 - Unspecified protein-calorie malnutrition Type of Wound Date of Service: 01/07/19 Chief Complaint: 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 Right toe ulcers. left stump ulcers. New right leg ulcer at previous blister site History of Wound: 58-year-old male returns to clinic for follow-up of bilateral leg ulcers and right foot ulcers. He denies fever, chill, nausea, vomiting, loss of appetite. He had multiple advanced wound care product applications. He denies redness. He does not use his compression pumps twice a day. Progress of Wound: stable - Physical Exam Vital Signs Temp Pulse Resp BP 97 F L 89 18 130/65 H 01/04/19 09:19 01/04/19 09:19 01/04/19 09:19 01/04/19 09:19 General: Alert, Oriented x3, Cooperative, No apparent distress Extremities: No cyanosis, Capillary Refill Less than 3 Seconds, No Calf Tenderness - Negative Harry and Badillo right. Left below-knee amputation. Lymphedema bilateral, Diminished Peripheral Pulses, Edema Skin: Ulcer/ Wound - No purulence, erythema, streaking, odor, or infection. Some hemorrhagic and granulation tissue is noted with decreased maceration to all ulcer sites Wound Measurements and Assessment WC - Nurse 1 - General Ulcer Measurement Start: 12/07/18 09:37 Freq: Status: Active Protocol: Activity Type Activity Date Activity User E-Sign Co-Sign Detail Recorded Client Recorded Date Recorded By Document 01/04/19 09:19 RB [id number] 01/04/19 09:39 RB 01/04/19 09:19 Wound Center Nurse 1 [Ulcer Assessment] #26 right lateral leg cluster -Combined with other wound No -Current Size (cm) - Length 12 -Current Size (cm) - Width 2 -Current Size (cm) - Depth 0.1 -Total Square Cm 24 -Tunneling No -Undermining/Tunneling No -Circular Undermining No -Exudate Amt Small -Exudate Type Serosanguineous -Wound Margin Flat & Intact -Granulation Amt Large (67-100%) -Granulation Quality [place] -Slough/Fibrin Yes -Necrosis Amt Small (1-33%) -Necrotic Tissue Type Adherent Slough -Structure Exposed N/A -Texture (Martha-wound Skin Appearance) Assessed -Moisture (Martha-wound Skin Appearance Maceration ) -Color (Martha-wound Skin Appearance) Assessed -Temperature (Martha-wound Skin No Abnormality Appearance) (Pt Warm) -Tenderness on Palpation (Martha-wound No Skin Appearance) -Ulcer Cleansing Wound Cleanser -Foul Odor after Cleansing No -Anesthetic Used 5% Lidocaine Gel #22 left stump -Combined with other wound No -Current Size (cm) - Length 12 -Current Size (cm) - Width 14.5 -Current Size (cm) - Depth 0.1 -Total Square Cm 174.0 -Date of Last Picture (Recall this 12/28/18 field) -Epithelialization None Present -Tunneling No -Undermining/Tunneling No -Circular Undermining No -Exudate Amt Large -Exudate Type Serosanguineous -Wound Margin Flat & Intact -Granulation Amt Large (67-100%) -Granulation Quality [place] -Slough/Fibrin Yes -Necrosis Amt Small (1-33%) -Necrotic Tissue Type Adherent Slough -Structure Exposed N/A -Texture (Martha-wound Skin Appearance) Assessed -Moisture (Martha-wound Skin Appearance Maceration ) -Color (Martha-wound Skin Appearance) Assessed -Temperature (Martha-wound Skin No Abnormality Appearance) (Pt Warm) -Ulcer Cleansing Rinsed/ Irrigated with Saline -Foul Odor after Cleansing No -Anesthetic Used 5% Lidocaine Gel #13 R Med Heel -Combined with other wound No -Current Size (cm) - Length 2 -Current Size (cm) - Width 2.2 -Current Size (cm) - Depth 0.1 -Total Square Cm 4.4 -Date of Last Picture (Recall this 12/28/18 field) -Epithelialization None Present -Tunneling No -Undermining/Tunneling No -Circular Undermining No -Exudate Amt Medium -Exudate Type Serosanguineous -Wound Margin Distinct, Outline Attached -Granulation Amt Large (67-100%) -Granulation Quality [place] -Slough/Fibrin Yes -Necrosis Amt Small (1-33%) -Structure Exposed N/A -Texture (Martha-wound Skin Appearance) Callus -Moisture (Martha-wound Skin Appearance Assessed ) -Color (Martha-wound Skin Appearance) Assessed -Temperature (Martha-wound Skin No Abnormality Appearance) (Pt Warm) -Ulcer Cleansing Rinsed/ Irrigated with Saline -Foul Odor after Cleansing No -Anesthetic Used 5% Lidocaine Gel #21 Right Foot-Toes w/Metatarsal Head circumfrential -Combined with other wound No -Current Size (cm) - Length 12 -Current Size (cm) - Width 9 -Current Size (cm) - Depth 0.2 -Total Square Cm 108 -Date of Last Picture (Recall this 12/28/18 field) -Epithelialization None Present -Tunneling No -Undermining/Tunneling No -Circular Undermining No -Exudate Amt Large -Exudate Type Serosanguineous -Wound Margin Flat & Intact -Granulation Amt Large (67-100%) -Granulation Quality [place] -Slough/Fibrin Yes -Necrosis Amt Small (1-33%) -Necrotic Tissue Type Adherent Slough -Structure Exposed N/A -Texture (Martha-wound Skin Appearance) Assessed -Moisture (Martha-wound Skin Appearance Maceration ) -Color (Martha-wound Skin Appearance) Assessed -Temperature (Martha-wound Skin No Abnormality Appearance) (Pt Warm) -Ulcer Cleansing Rinsed/ Irrigated with Saline -Foul Odor after Cleansing No -Anesthetic Used 5% Lidocaine Gel [Edema Assessment] -Lower Limb Edema Present Yes -Right Calf (cm) 47 -Right Ankle (cm) 28 -Right Foot (cm) 29.0 -Left Calf (cm) 47.5 WC - Nurse 2 - General Ulcer CM Notes Start: 12/07/18 09:37 Freq: Status: Active Protocol: Activity Type Activity Date Activity User E-Sign Co-Sign Detail Recorded Client Recorded Date Recorded By Document 01/04/19 10:07 AN [id number] 01/04/19 10:13 AN 01/04/19 10:07 Wound Center Nurse 2 [Procedure/Treatment] #26 right lateral leg cluster -Time 10:10 -Correct Patient Yes -Correct Side, Site, Position Yes -Correct Procedure Yes -Procedure Performed Yes -Type of Procedure Debridement -Clinical Debridement Subcutaneous -Post Debridement Size (cm) - Length 12.1 -Post Debridement Size (cm) - Width 2.1 -Post Debridement Size (cm) - Depth 0.1 -Total Square Cm 25.41 -Wound/Ulcer Outcome Not Healed -Ulcer Cleansing Rinsed/ Irrigated with Saline -Foul Odor after Cleansing No -Bioengineered Tissue No -Bleeding Controlled with Pressure -Offloading Yes -Treatment Response Procedure Tolerated Well #22 left stump -Time 10:11 -Correct Patient Yes -Correct Side, Site, Position Yes -Correct Procedure Yes -Procedure Performed Yes -Type of Procedure Debridement -Clinical Debridement Subcutaneous -Post Debridement Size (cm) - Length 12.1 -Post Debridement Size (cm) - Width 14.6 -Post Debridement Size (cm) - Depth 0.1 -Total Square Cm 176.66 -Wound/Ulcer Outcome Not Healed -Ulcer Cleansing Rinsed/ Irrigated with Saline -Foul Odor after Cleansing No -Bioengineered Tissue No -Bleeding Controlled with Pressure -Offloading Yes -Treatment Response Procedure Tolerated Well #13 R Med Heel -Time 10:11 -Correct Patient Yes -Correct Side, Site, Position Yes -Correct Procedure Yes -Procedure Performed Yes -Type of Procedure Debridement -Clinical Debridement Subcutaneous -Post Debridement Size (cm) - Length 2.1 -Post Debridement Size (cm) - Width 2.3 -Post Debridement Size (cm) - Depth 0.1 -Total Square Cm 4.83 -Wound/Ulcer Outcome Not Healed -Ulcer Cleansing Rinsed/ Irrigated with Saline -Foul Odor after Cleansing No -Bleeding Controlled with Pressure -Offloading No -Treatment Response Procedure Tolerated Well #21 Right Foot-Toes w/Metatarsal Head circumfrential -Time 10:11 -Correct Patient Yes -Correct Side, Site, Position Yes -Correct Procedure Yes -Procedure Performed Yes -Type of Procedure Debridement -Clinical Debridement Subcutaneous -Post Debridement Size (cm) - Length 12.1 -Post Debridement Size (cm) - Width 9.1 -Post Debridement Size (cm) - Depth 0.2 -Total Square Cm 110.11 -Wound/Ulcer Outcome Not Healed -Ulcer Cleansing Rinsed/ Irrigated with Saline -Foul Odor after Cleansing No -Bleeding Controlled with Pressure -Offloading No -Treatment Response Procedure Tolerated Well [See Physician Procedure note for Specifics] Pain Scale: 0-10 Numeric [Pain] -Is Patient Pain Free? Yes Musculoskeletal: No Tenderness to Palpation of Joints or Extremities, Muscle Wasting Neurological: - - Lack of epicritic sensation light touch consistent with neuropathy Psych/Mental Status: Normal Affect, Appropriate Debridement Note Post-Debridement Measurements/Treatment WC - Nurse 2 - General Ulcer CM Notes Start: 12/07/18 09:37 Freq: Status: Active Protocol: Activity Type Activity Date Activity User E-Sign Co-Sign Detail Recorded Client Recorded Date Recorded By Document 12/07/18 10:57 [id number] 12/07/18 11:01 Document 12/14/18 10:24 JF [id number] 12/14/18 10:28 Document 12/21/18 10:03 AN [id number] 12/21/18 10:07 AN Document 12/28/18 10:02 AN [id number] 12/28/18 10:05 AN Document 01/04/19 10:07 AN [id number] 01/04/19 10:13 AN 12/07/18 12/14/18 12/21/18 10:57 10:24 10:03 Wound Center Nurse 2 #26 right lateral leg cluster -Time -Correct Patient -Correct Side, Site, Position -Correct Procedure -Procedure Performed -Type of Procedure -Clinical Debridement -Post Debridement Size (cm) - Length -Post Debridement Size (cm) - Width -Post Debridement Size (cm) - Depth -Total Square Cm -Wound/Ulcer Outcome -Ulcer Cleansing -Foul Odor after Cleansing -Bioengineered Tissue -Bleeding Controlled with -Offloading -Treatment Response #22 left stump -Time 10:58 10:24 10:05 -Correct Patient Yes Yes Yes -Correct Side, Site, Position Yes Yes Yes -Correct Procedure Yes Yes Yes -Procedure Performed Yes Yes Yes -Type of Procedure Debridement Debridement Debridement -Clinical Debridement Subcutaneous Subcutaneous Subcutaneous -Post Debridement Size (cm) - Length 15 9 8 -Post Debridement Size (cm) - Width 16.1 7 5 -Post Debridement Size (cm) - Depth 0.1 0.1 0.1 -Total Square Cm 241.5 63 40 -Wound/Ulcer Outcome Not Healed Not Healed Not Healed -Ulcer Cleansing Rinsed/ Rinsed/ Irrigated with Irrigated with Saline Saline -Foul Odor after Cleansing No No -Bioengineered Tissue Yes Yes -Type of bioengineered Tissue Apligraf Apligraf -Expiration Date 09/11/18 12/15/18 -Product Lot Number [id number] -Percent Used 100 100 -Saline Lot Number [id number] -Bleeding Controlled with Pressure Pressure -Offloading No No -Treatment Response Procedure Procedure Procedure Tolerated Well Tolerated Well Tolerated Well #13 R Med Heel -Time 10:26 10:06 -Correct Patient No Yes Yes -Correct Side, Site, Position No Yes Yes -Correct Procedure No Yes Yes -Procedure Performed No Yes Yes -Type of Procedure Debridement Debridement -Clinical Debridement Subcutaneous Subcutaneous -Post Debridement Size (cm) - Length 0.8 0.1 -Post Debridement Size (cm) - Width 0.5 0.1 -Post Debridement Size (cm) - Depth 0.1 0.1 -Total Square Cm 0.40 0.01 -Wound/Ulcer Outcome Not Healed -Ulcer Cleansing Rinsed/ Irrigated with Saline -Foul Odor after Cleansing No -Bioengineered Tissue Yes -Type of bioengineered Tissue Apligraf -Expiration Date 12/15/18 -Product Lot Number [id number] -Percent Used 100 -Saline Lot Number [id number] -Bleeding Controlled with Pressure -Offloading No -Treatment Response Procedure Tolerated Well #21 Right Foot-Toes w/Metatarsal Head circumfrential -Time 10:59 10:27 10:07 -Correct Patient Yes Yes Yes -Correct Side, Site, Position Yes Yes Yes -Correct Procedure Yes Yes Yes -Procedure Performed Yes Yes Yes -Type of Procedure Debridement Debridement Debridement -Clinical Debridement Subcutaneous Subcutaneous Subcutaneous -Post Debridement Size (cm) - Length 14.5 7 14.5 -Post Debridement Size (cm) - Width 9 3.5 10.5 -Post Debridement Size (cm) - Depth 0.1 0.1 0.1 -Total Square Cm 130.5 24.5 152.25 -Wound/Ulcer Outcome Not Healed Not Healed Not Healed -Ulcer Cleansing Rinsed/ Rinsed/ Irrigated with Irrigated with Saline Saline -Foul Odor after Cleansing No No -Bioengineered Tissue No No -Bleeding Controlled with Pressure Pressure -Offloading No No -Treatment Response Procedure Procedure Procedure Tolerated Well Tolerated Well Tolerated Well Pain Scale: 0-10 Numeric Is Patient Pain Free? Yes Yes Yes 12/28/18 01/04/19 10:02 10:07 Wound Center Nurse 2 #26 right lateral leg cluster -Time 10:04 10:10 -Correct Patient Yes Yes -Correct Side, Site, Position Yes Yes -Correct Procedure Yes Yes -Procedure Performed Yes Yes -Type of Procedure Debridement Debridement -Clinical Debridement Subcutaneous Subcutaneous -Post Debridement Size (cm) - Length 8 12.1 -Post Debridement Size (cm) - Width 5 2.1 -Post Debridement Size (cm) - Depth 0.1 0.1 -Total Square Cm 40 25.41 -Wound/Ulcer Outcome Not Healed Not Healed -Ulcer Cleansing Rinsed/ Irrigated with Saline -Foul Odor after Cleansing No -Bioengineered Tissue No -Bleeding Controlled with Pressure Pressure -Offloading Yes -Treatment Response Procedure Procedure Tolerated Well Tolerated Well #22 left stump -Time 10:02 10:11 -Correct Patient Yes Yes -Correct Side, Site, Position Yes Yes -Correct Procedure Yes Yes -Procedure Performed Yes Yes -Type of Procedure Debridement Debridement -Clinical Debridement Subcutaneous Subcutaneous -Post Debridement Size (cm) - Length 12.1 12.1 -Post Debridement Size (cm) - Width 14.7 14.6 -Post Debridement Size (cm) - Depth 0.1 0.1 -Total Square Cm 177.87 176.66 -Wound/Ulcer Outcome Not Healed Not Healed -Ulcer Cleansing Rinsed/ Rinsed/ Irrigated with Irrigated with Saline Saline -Foul Odor after Cleansing No No -Bioengineered Tissue No No -Type of bioengineered Tissue -Expiration Date -Product Lot Number -Percent Used -Saline Lot Number -Bleeding Controlled with Pressure Pressure -Offloading Yes Yes -Treatment Response Procedure Procedure Tolerated Well Tolerated Well #13 R Med Heel -Time 10:03 10:11 -Correct Patient Yes Yes -Correct Side, Site, Position Yes Yes -Correct Procedure Yes Yes -Procedure Performed Yes Yes -Type of Procedure Debridement Debridement -Clinical Debridement Subcutaneous Subcutaneous -Post Debridement Size (cm) - Length 2.5 2.1 -Post Debridement Size (cm) - Width 2.2 2.3 -Post Debridement Size (cm) - Depth 0.1 0.1 -Total Square Cm 5.50 4.83 -Wound/Ulcer Outcome Not Healed Not Healed -Ulcer Cleansing Rinsed/ Rinsed/ Irrigated with Irrigated with Saline Saline -Foul Odor after Cleansing No No -Bioengineered Tissue No -Type of bioengineered Tissue -Expiration Date -Product Lot Number -Percent Used -Saline Lot Number -Bleeding Controlled with Pressure Pressure -Offloading Yes No -Treatment Response Procedure Procedure Tolerated Well Tolerated Well #21 Right Foot-Toes w/Metatarsal Head circumfrential -Time 10:03 10:11 -Correct Patient Yes Yes -Correct Side, Site, Position Yes Yes -Correct Procedure Yes Yes -Procedure Performed Yes Yes -Type of Procedure Debridement Debridement -Clinical Debridement Subcutaneous Subcutaneous -Post Debridement Size (cm) - Length 13.6 12.1 -Post Debridement Size (cm) - Width 9.3 9.1 -Post Debridement Size (cm) - Depth 0.1 0.2 -Total Square Cm 126.48 110.11 -Wound/Ulcer Outcome Not Healed Not Healed -Ulcer Cleansing Rinsed/ Irrigated with Saline -Foul Odor after Cleansing No -Bioengineered Tissue -Bleeding Controlled with Pressure Pressure -Offloading No -Treatment Response Procedure Procedure Tolerated Well Tolerated Well Pain Scale: 0-10 Numeric Is Patient Pain Free? Yes Yes Wound debrided: stump BKA site Laterality: Left - g Wound Grade/Stage: grade 1 Type of Debridement: Excisional debridement Anesthesia Used: 5% Lidocaine Gel Depth: in the subcutaneous layer Percentage of wound debrided: - - 5 Instrument Used: #15 blade Tissue Removed: fibrous, devitalized subcutaneous, biofilm, slough Severity: Fat Layer Exposed Amount of bleeding with debridement: Mild Bleeding Controlled with: Pressure Patient tolerated procedure well - Additional Wound Wound debrided: heel Laterality: Right Wound Grade/Stage: grade 3 Type of Debridement: Excisional debridement Depth: in the subcutaneous layer Percentage of wound debrided: 100 Instrument Used: #15 blade Tissue Removed: fibrous, devitalized subcutaneous, biofilm, slough Severity: Fat Layer Exposed Amount of bleeding with debridement: Mild Bleeding Controlled with: Pressure Patient tolerated procedure: Patient tolerated procedure well - Additional Wound Wound debrided: toe cluster Laterality: Right Wound Grade/Stage: grade 1 Type of Debridement: Excisional debridement Anesthesia Used: 5% Lidocaine Gel Depth: in the subcutaneous layer Percentage of wound debrided: 10 Instrument Used: #15 blade Tissue Removed: fibrous, devitalized subcutaneous, biofilm, slough Severity: Fat Layer Exposed Amount of bleeding with debridement: Mild Bleeding Controlled with: Pressure Patient tolerated procedure: Patient tolerated procedure well Assessment/Plan Assessment: ulcer right forefoot stable with fat layer exposed. Right heel ulcer with fat layer exposed. Left below-knee amputation with skin tissue exposed stable. Lymphedema. Chronic lower extremity edema and venous insufficiency. Morbid obesity. Type 2 diabetes uncontrolled with peripheral neuropathy. CKD. Hypertension. Malnutrition. Delayed wound healing. Nonadherence to treatment plan Plan: I reviewed and discussed his case. There are no signs of infection. I advised him to wear the donut offloading pillow and prevent pressure on this site. I do not recommend advanced wound healing clinic application due to increased maceration and weeping. To change dressing daily with Aquacel Ag and Optifoam instead. To change Jose Antonio wraps to bilateral lower extremities daily. To continue with elevation and lymphedema pump use. The goal of the dressing changes are to avoid moist macerated dressings from sitting on the wound for extended period of time and also to maintain appropriate compression. The patient understands his noncompliance in combination with his chronic venous insufficiency and lymphedema is contributing to exacerbation. The patency of his previous arterial stent was checked with Dr. Nixon this year, and the current recommendation is to continue with strict compression with lymphedema pumps. Per patient, arterial duplex was performed during his last vascular surgery follow-up, and he appears to have continued perfusion to the right lower extremity and no vascular intervention is planned at this time. Continue pro tein suppplements and increased protein in diet. I also recommend a lymphedema clinic. He went approximately 3 years ago and found this to be very helpful. He no longer has his thigh-high compression garments that were arranged for him during this last session. [place] wrap order will be processed at this time for the right lower extremity for better edema control there is a lymphedema clinic in [place] and his information was sent over. They can only see him once he is d/c from home health; this is noted. To keep pressure off of his left below- knee amputation stump site. Bilateral offloading donut pillow were recommended. He is at risk for continued limb loss and due to his condition and he understands. Follow up in 1 week at the wound healing center. He was also advised to call sooner if he has any questions or concerns.
== END 2019-01-04 23:59 ==
LOC: WC 09:15
PROVIDERS: Family Provider Family Medicine Geriatric Medicine; PCP Family Medicine Geriatric Medicine; Referring Provider Podiatrist; Visit Provider Podiatrist
DX: E11.621 Type 2 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with foot ulcer (principal); L97.512 Non-pressure chronic ulcer of other part of right foot with fat layer exposed; I89.0 Lymphedema, not elsewhere classified; E66.01 Morbid (severe) obesity due to excess calories; E11.42 Type 2 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with diabetic polyneuropathy; Z89.512 Acquired absence of left leg below knee; T87.89 Other complications of amputation stump; Y83.8 Other surgical procedures as the cause of abnormal reaction of the patient, or of later complication, without mention of misadventure at the time of the procedure; L97.822 Non-pressure chronic ulcer of other part of left lower leg with fat layer exposed; E11.622 Type 2 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with other skin ulcer; E11.22 Type 2 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with diabetic chronic kidney disease; I12.9 Hypertensive chronic kidney disease with stage 1 through stage 4 chronic kidney disease, or unspecified chronic kidney disease; N18.9 Chronic kidney disease, unspecified; I87.2 Venous insufficiency (chronic) (peripheral); R60.0 Localized edema; S80.821A Blister (nonthermal), right lower leg, initial encounter; X58.XXXA Exposure to other specified factors, initial encounter; L97.412 Non-pressure chronic ulcer of right heel and midfoot with fat layer exposed
CPT/HCPCS: 11042; 11045; 15271; 15272; 15275; 29581; Q4101

== ENCOUNTER → 2019-01-05 08:48 | Outpatient (CLI) | payer MEDICARE, MEDICAID, SELFPAY ==
[2019-01-04 09:19] VITALS: BMI 45.6
[2019-01-05 13:14] LABS: Absolute Lymphocyte Count 1.03 X10^3/uL (0.83-4.51); Absolute Neutrophil Count 5.1 X10^3/uL (2.0-7.7); Basophil# 0.03 X10^3/uL; Basophil% 0.4 % (0-1); Eosinophils% 2.9 % (0-5); Hematocrit 32.4 % (40-54); Hemoglobin 9.8 g/dL (13.0-16.5); Lymphocyte # 1.03 X10^3/ul (4.0); Lymphocyte % 14.8 % (19-41); Mean Corp Hgb Conc 30.2 g/dL (32-36); Mean Corpuscular Hgb 27.3 pg (27.0-32.0); Mean Corpuscular Volume 90.3 fL (80-94); Mean Platelet Vol. 11.3 fl (6.2-12.0); Monocyte# 0.49 X10^3/uL; Monocyte% 7.1 % (0-10); NRBC Flagged by Analyzer 0 % (0-5); Neutrophil # 5.09 X10^3/uL (2.7-7.7); Neutrophil % 73.4 % (47-70); Platelet Count 169 K/mm3 (150-450); RBC Distribution Width CV 16.6 % (11.6-14.6); RBC Distribution Width SD 54.2 fl (35.1-43.9); Red Blood Count 3.59 M/mm3 (4.6-6.2); White Blood Count 6.9 K/mm3 (4.4-11.0)
[2019-01-05 13:38] LABS: ALB/GLOB Ratio 0.7 RATIO (0.9-2.4); AST(SGOT) 24 U/L (15-37); Alanine Aminotransfer ALT/SGPT 42 U/L (16-61); Albumin, Serum 3.1 g/dL (3.2-5.0); Alkaline Phosphatase 85 U/L (45-117); Anion Gap 4 (5-15); BUN 45 mg/dL (7-18); BUN/Creat Ratio 21.8 RATIO (10-20); Calcium,Total 8.7 mg/dL (8.5-10.1); Chloride 104 mmol/L (98-107); Creatinine, Serum 2.06 mg/dL (0.70-1.30); EST Glomerular Filtration Rate 35 mL/min (>60); Est Glom Filt Rate - Afr Amer 43 mL/min (>60); Globulin 4.7 g/dL (2.2-4.2); Glucose 190 mg/dL (74-106); Potassium 4.5 mmol/L (3.5-5.1); Protein, Total 7.8 g/dL (6.4-8.2); Sodium Level 139 mmol/L (136-145); Thyroid Stim Hormone (TSH) 2.67 uIU/mL (0.358-3.74)
== END ==
PROVIDERS: Family Provider Family Medicine Geriatric Medicine; PCP Family Medicine Geriatric Medicine; Visit Provider Family Medicine Geriatric Medicine
DX: I10 Essential (primary) hypertension (principal); E11.9 Type 2 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without complications; E55.9 Vitamin D deficiency, unspecified
CPT/HCPCS: 36415; 80053; 82306; 84443; 85025

== ENCOUNTER 2019-01-25 09:15 | Outpatient (RCR) | payer MEDICARE, MEDICAID, SELFPAY ==
[2019-01-05 00:35] VITALS: BP 130/65; PULSE 89; RESP 18; TEMP 36.1
[2019-01-25 09:32] VITALS: BP 146/76; PULSE 91; RESP 16; TEMP 36.1; BMI 45.6
--- NOTE | 2019-01-25 12:37 | PCM.WC.PN ---
(1) Ulcer of right foot with fat layer exposed Status: Chronic Current Visit: Yes Code(s): L97.512 - Non-pressure chronic ulcer of other part of right foot with fat layer exposed (2) Ulcer of left lower extremity, limited to breakdown of skin Status: Chronic Current Visit: Yes Code(s): L97.921 - Non-pressure chronic ulcer of unspecified part of left lower leg limited to breakdown of skin (3) Ulcer of right lower extremity with fat layer exposed Status: Chronic Current Visit: Yes Code(s): L97.912 - Non-pressure chronic ulcer of unspecified part of right lower leg with fat layer exposed (4) Lymphedema Status: Chronic Current Visit: Yes Code(s): I89.0 - Lymphedema, not elsewhere classified (5) Morbid obesity Status: Chronic Current Visit: Yes Code(s): E66.01 - Morbid (severe) obesity due to excess calories (6) Venous stasis dermatitis Status: Chronic Current Visit: Yes Qualifiers: Code(s): I87.2 - Venous insufficiency (chronic) (peripheral) (7) Chronic kidney disease (CKD) Status: Chronic Current Visit: Yes Qualifiers: Code(s): N18.9 - Chronic kidney disease, unspecified (8) BKA stump complication Status: Chronic Current Visit: Yes Code(s): T87.9 - Unspecified complications of amputation stump (9) Type 2 diabetes mellitus with diabetic polyneuropathy Status: Chronic Current Visit: Yes Code(s): E11.42 - Type 2 diabetes mellitus with diabetic polyneuropathy (10) Malnutrition Status: Chronic Current Visit: Yes Code(s): E46 - Unspecified protein-calorie malnutrition (11) Lymphedema Status: Chronic Current Visit: Yes Code(s): I89.0 - Lymphedema, not elsewhere classified (12) Non-compliance Status: Chronic Current Visit: Yes Code(s): Z91.19 - Patient's noncompliance with other medical treatment and regimen Type of Wound Date of Service: 01/25/19 Chief Complaint: 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 Right toe ulcers. left stump ulcers. New right leg ulcer at previous blister site History of Wound: 58-year-old male returns to clinic for follow-up of bilateral leg ulcers and right foot ulcers. He denies fever, chill, nausea, vomiting, loss of appetite. He had multiple advanced wound care product applications. He denies redness. He has more frequent dressing changes with home. Reports no odor. Progress of Wound: Stable right foot and heel and left stump site. right leg ulcer improving - Physical Exam Vital Signs Temp Pulse Resp BP 96.9 F L 91 16 146/76 H 01/25/19 09:32 01/25/19 09:32 01/25/19 09:32 01/25/19 09:32 General: Alert, Oriented x3, Cooperative, No apparent distress HEENT: Atraumatic Extremities: No cyanosis, Capillary Refill Less than 3 Seconds, No Calf Tenderness, Diminished Peripheral Pulses, Edema - Consistent with lymphedema and venous insufficiency bilateral lower extremities, - - Left below-knee amputation Skin: Ulcer/ Wound - No purulence, erythema, streaking, odor, infection decreased maceration to the right and left site. Peripheral skin is hairless and atrophic Wound Measurements and Assessment WC - Nurse 1 - General Ulcer Measurement Start: 01/25/19 09:31 Freq: Status: Active Protocol: Activity Type Activity Date Activity User E-Sign Co-Sign Detail Recorded Client Recorded Date Recorded By Document 01/25/19 09:32 JF [id number] 01/25/19 09:45 ANUP 01/25/19 09:32 Wound Center Nurse 1 [Ulcer Assessment] #26 right lateral leg cluster -Current Size (cm) - Length 1.5 -Current Size (cm) - Width 1.0 -Current Size (cm) - Depth 0.1 -Total Square Cm 1.50 -Photo Taken No -Epithelialization Medium 34-66% -Tunneling No -Undermining/Tunneling No -Circular Undermining No -Exudate Amt Small -Exudate Type Serosanguineous -Wound Margin Flat & Intact -Granulation Amt Large (67-100%) -Granulation Quality Red -Slough/Fibrin Yes -Necrosis Amt Small (1-33%) -Necrotic Tissue Type Adherent Slough -Structure Exposed N/A -Texture (Martha-wound Skin Appearance) Assessed, Localized Edema -Moisture (Martha-wound Skin Appearance Assessed,Dry/ ) Scaly -Color (Martha-wound Skin Appearance) Assessed -Temperature (Martha-wound Skin No Abnormality Appearance) (Pt Warm) -Tenderness on Palpation (Martha-wound No Skin Appearance) -Ulcer Cleansing Wound Cleanser -Foul Odor after Cleansing No -Anesthetic Used 4% Lidocaine Solution #22 left stump -Combined with other wound No -Current Size (cm) - Length 4.5 -Current Size (cm) - Width 8 -Current Size (cm) - Depth 0.1 -Total Square Cm 36.0 -Photo Taken No -Epithelialization Small 1-33% -Tunneling No -Undermining/Tunneling No -Circular Undermining No -Exudate Amt Large -Exudate Type Yellow/Green -Wound Margin Flat & Intact -Granulation Amt Medium (34-66%) -Granulation Quality [place] -Slough/Fibrin Yes -Necrosis Amt Medium (34-66%) -Necrotic Tissue Type Adherent Slough -Structure Exposed N/A -Texture (Martha-wound Skin Appearance) Assessed, Localized Edema -Moisture (Martha-wound Skin Appearance Assessed ) -Color (Martha-wound Skin Appearance) Assessed -Temperature (Martha-wound Skin No Abnormality Appearance) (Pt Warm) -Tenderness on Palpation (Martha-wound No Skin Appearance) -Ulcer Cleansing Wound Cleanser -Foul Odor after Cleansing No -Anesthetic Used 4% Lidocaine Solution #13 R Med Heel -Combined with other wound No -Current Size (cm) - Length 3 -Current Size (cm) - Width 3 -Current Size (cm) - Depth 0.2 -Total Square Cm 9 -Photo Taken No -Epithelialization None Present -Tunneling No -Undermining/Tunneling No -Circular Undermining No -Exudate Amt Medium -Exudate Type Yellow/Green -Wound Margin Flat & Intact -Granulation Amt None Present (0 %) -Slough/Fibrin Yes -Necrosis Amt Large (67-100%) -Necrotic Tissue Type Adherent Slough -Structure Exposed N/A -Texture (Martha-wound Skin Appearance) Assessed, Localized Edema -Moisture (Martha-wound Skin Appearance Assessed,Dry/ ) Scaly -Color (Martha-wound Skin Appearance) Assessed -Temperature (Martha-wound Skin No Abnormality Appearance) (Pt Warm) -Tenderness on Palpation (Martha-wound No Skin Appearance) -Ulcer Cleansing Wound Cleanser -Foul Odor after Cleansing No -Anesthetic Used 4% Lidocaine Solution #21 Right Foot-Toes w/Metatarsal Head circumfrential -Combined with other wound No -Current Size (cm) - Length 8 -Current Size (cm) - Width 8.5 -Current Size (cm) - Depth 0.2 -Total Square Cm 68.0 -Photo Taken No -Epithelialization None Present -Tunneling No -Undermining/Tunneling No -Circular Undermining No -Exudate Amt Large -Exudate Type Yellow/Green -Wound Margin Flat & Intact -Granulation Amt Small (1-33%) -Granulation Quality [place] -Slough/Fibrin Yes -Necrosis Amt Medium (34-66%) -Necrotic Tissue Type Adherent Slough -Structure Exposed N/A -Texture (Martha-wound Skin Appearance) Assessed, Localized Edema -Moisture (Martha-wound Skin Appearance Assessed, ) Maceration -Color (Martha-wound Skin Appearance) Assessed -Temperature (Martha-wound Skin No Abnormality Appearance) (Pt Warm) -Tenderness on Palpation (Martha-wound No Skin Appearance) -Ulcer Cleansing Wound Cleanser -Foul Odor after Cleansing No -Anesthetic Used 4% Lidocaine Solution [Edema Assessment] -Lower Limb Edema Present Yes -Right Calf (cm) 46.6 -Right Ankle (cm) 29.0 -Left Calf (cm) 41.1 WC - Nurse 2 - General Ulcer CM Notes Start: 01/25/19 09:31 Freq: Status: Active Protocol: Activity Type Activity Date Activity User E-Sign Co-Sign Detail Recorded Client Recorded Date Recorded By Document 01/25/19 10:01 AN [id number] 01/25/19 10:07 AN 01/25/19 10:01 Wound Center Nurse 2 [Procedure/Treatment] #26 right lateral leg cluster -Time 10:04 -Correct Patient Yes -Correct Side, Site, Position Yes -Correct Procedure Yes -Procedure Performed Yes -Type of Procedure Debridement -Clinical Debridement Subcutaneous -Post Debridement Size (cm) - Length 0.6 -Post Debridement Size (cm) - Width 1.0 -Post Debridement Size (cm) - Depth 0.1 -Total Square Cm 0.60 -Wound/Ulcer Outcome Not Healed -Ulcer Cleansing Rinsed/ Irrigated with Saline -Foul Odor after Cleansing No -Bioengineered Tissue No -Bleeding Controlled with Pressure -Offloading Yes -Treatment Response Procedure Tolerated Well #22 left stump -Time 10:05 -Procedure Performed No #13 R Med Heel -Time 10:05 -Correct Patient Yes -Correct Side, Site, Position Yes -Correct Procedure Yes -Procedure Performed Yes -Type of Procedure Debridement -Clinical Debridement Subcutaneous -Post Debridement Size (cm) - Length 3 -Post Debridement Size (cm) - Width 3 -Post Debridement Size (cm) - Depth 0.2 -Total Square Cm 9 -Wound/Ulcer Outcome Not Healed -Ulcer Cleansing Rinsed/ Irrigated with Saline -Foul Odor after Cleansing No -Bioengineered Tissue No -Bleeding Controlled with Pressure -Offloading Yes -Treatment Response Procedure Tolerated Well #21 Right Foot-Toes w/Metatarsal Head circumfrential -Time 10:06 -Correct Patient Yes -Correct Side, Site, Position Yes -Correct Procedure Yes -Procedure Performed Yes -Type of Procedure Debridement -Clinical Debridement Subcutaneous -Post Debridement Size (cm) - Length 8 -Post Debridement Size (cm) - Width 8.5 -Post Debridement Size (cm) - Depth 0.2 -Total Square Cm 68.0 -Wound/Ulcer Outcome Not Healed -Ulcer Cleansing Rinsed/ Irrigated with Saline -Foul Odor after Cleansing No -Bioengineered Tissue No -Bleeding Controlled with Pressure -Offloading Yes -Treatment Response Procedure Tolerated Well [See Physician Procedure note for Specifics] Pain Scale: 0-10 Numeric [Pain] -Is Patient Pain Free? Yes Musculoskeletal: No Tenderness to Palpation of Joints or Extremities, Muscle Wasting Neurological: - - Lack of normal epicritic sensation light touch consistent with neuropathy Psych/Mental Status: Normal Affect, Appropriate Debridement Note Post-Debridement Measurements/Treatment WC - Nurse 2 - General Ulcer CM Notes Start: 01/25/19 09:31 Freq: Status: Active Protocol: Activity Type Activity Date Activity User E-Sign Co-Sign Detail Recorded Client Recorded Date Recorded By Document 01/25/19 10:01 AN [id number] 01/25/19 10:07 AN 01/25/19 10:01 Wound Center Nurse 2 #26 right lateral leg cluster -Time 10:04 -Correct Patient Yes -Correct Side, Site, Position Yes -Correct Procedure Yes -Procedure Performed Yes -Type of Procedure Debridement -Clinical Debridement Subcutaneous -Post Debridement Size (cm) - Length 0.6 -Post Debridement Size (cm) - Width 1.0 -Post Debridement Size (cm) - Depth 0.1 -Total Square Cm 0.60 -Wound/Ulcer Outcome Not Healed -Ulcer Cleansing Rinsed/ Irrigated with Saline -Foul Odor after Cleansing No -Bioengineered Tissue No -Bleeding Controlled with Pressure -Offloading Yes -Treatment Response Procedure Tolerated Well #22 left stump -Time 10:05 -Procedure Performed No #13 R Med Heel -Time 10:05 -Correct Patient Yes -Correct Side, Site, Position Yes -Correct Procedure Yes -Procedure Performed Yes -Type of Procedure Debridement -Clinical Debridement Subcutaneous -Post Debridement Size (cm) - Length 3 -Post Debridement Size (cm) - Width 3 -Post Debridement Size (cm) - Depth 0.2 -Total Square Cm 9 -Wound/Ulcer Outcome Not Healed -Ulcer Cleansing Rinsed/ Irrigated with Saline -Foul Odor after Cleansing No -Bioengineered Tissue No -Bleeding Controlled with Pressure -Offloading Yes -Treatment Response Procedure Tolerated Well #21 Right Foot-Toes w/Metatarsal Head circumfrential -Time 10:06 -Correct Patient Yes -Correct Side, Site, Position Yes -Correct Procedure Yes -Procedure Performed Yes -Type of Procedure Debridement -Clinical Debridement Subcutaneous -Post Debridement Size (cm) - Length 8 -Post Debridement Size (cm) - Width 8.5 -Post Debridement Size (cm) - Depth 0.2 -Total Square Cm 68.0 -Wound/Ulcer Outcome Not Healed -Ulcer Cleansing Rinsed/ Irrigated with Saline -Foul Odor after Cleansing No -Bioengineered Tissue No -Bleeding Controlled with Pressure -Offloading Yes -Treatment Response Procedure Tolerated Well Pain Scale: 0-10 Numeric Is Patient Pain Free? Yes Wound debrided: forefoot Laterality: Right Wound Grade/Stage: grade 1 Type of Debridement: Excisional debridement Anesthesia Used: 5% Lidocaine Gel Depth: in the subcutaneous layer Percentage of wound debrided: 100 Instrument Used: #15 blade Tissue Removed: fibrous, devitalized subcutaneous, biofilm, slough Severity: Fat Layer Exposed Amount of bleeding with debridement: Mild Bleeding Controlled with: Pressure Patient tolerated procedure well - Additional Wound Wound debrided: heel Laterality: Right Wound Grade/Stage: grade 3 Type of Debridement: Excisional debridement Anesthesia Used: 5% Lidocaine Gel Depth: in the subcutaneous layer Percentage of wound debrided: 100 Instrument Used: #15 blade Tissue Removed: fibrous, devitalized subcutaneous, biofilm, slough Severity: Fat Layer Exposed Amount of bleeding with debridement: Mild Bleeding Controlled with: Pressure Patient tolerated procedure: Patient tolerated procedure well Assessment/Plan Active Problems Ulcer of left lower extremity, limited to breakdown of skin (Chronic) Ulcer of right lower extremity with fat layer exposed (Chronic) Non-compliance (Chronic) Lymphedema (Chronic) Ulcer of right foot with fat layer exposed (Chronic) Morbid obesity (Chronic) Venous stasis dermatitis (Chronic) Chronic kidney disease (CKD) (Chronic) BKA stump complication (Chronic) Type 2 diabetes mellitus with diabetic polyneuropathy (Chronic) Malnutrition (Chronic) Lymphedema (Chronic) Assessment: ulcer right forefoot stable with fat layer exposed. Right heel ulcer with fat layer exposed. Left below-knee amputation with skin tissue exposed stable. Lymphedema. Right leg ulcers stable and improving. Chronic lower extremity edema and venous insufficiency. Morbid obesity. Type 2 diabetes uncontrolled with peripheral neuropathy. CKD. Hypertension. Malnutrition. Delayed wound healing. Nonadherence to treatment plan Plan: I reviewed and discussed his case. There are no signs of infection. I advised him to wear the donut offloading pillow and prevent pressure on this site. I do not recommend advanced wound healing clinic application due to increased maceration and weeping. To change dressing daily with Aquacel Ag and Optifoam instead. He has been doing well with this recently. To change [place] wraps to bilateral lower extremities daily. To continue with elevation and lymphedema pump use. The goal of the dressing changes are to avoid moist macerated dressings from sitting on the wound for extended period of time and also to maintain appropriate compression. The patient understands his noncompliance in combination with his chronic venous insufficiency and lymphedema is contributing to exacerbation. The patency of his previous arterial stent was checked with Dr. Nixon this year, and the current recommendation is to continue with strict compression with lymphedema pumps. Per patient, arterial duplex was performed during his last vascular surgery follow-up, and he appears to have continued perfusion to the right lower extremity and no vascular intervention is planned at this time. Continue protein suppplements and increased protein in diet. I also recommend a lymphedema clinic. He went approximately 3 years ago and found this to be very helpful. He no longer has his thigh-high compression garments that were arranged for him during this last session. [place] wrap order will be processed at this time for the right lower extremity for better edema control there is a lymphedema clinic in [place] and his information was sent over. They can only see him once he is d/c from home health; this is noted. To keep pressure off of his left below-knee amputation stump site. Bilateral offloading donut pillow were recommended. He is at risk for continued limb loss and due to his condition and he understands. Follow up in 1 week at the wound healing center. He was also advised to call sooner if he has any questions or concerns.
== END 2019-02-04 23:59 ==
LOC: WC 09:15
PROVIDERS: Family Provider Family Medicine Geriatric Medicine; PCP Family Medicine Geriatric Medicine; Referring Provider Podiatrist; Visit Provider Podiatrist
DX: E11.621 Type 2 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with foot ulcer (principal); E11.22 Type 2 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with diabetic chronic kidney disease; L97.422 Non-pressure chronic ulcer of left heel and midfoot with fat layer exposed; L97.512 Non-pressure chronic ulcer of other part of right foot with fat layer exposed; I89.0 Lymphedema, not elsewhere classified; E66.01 Morbid (severe) obesity due to excess calories; L97.821 Non-pressure chronic ulcer of other part of left lower leg limited to breakdown of skin; E11.622 Type 2 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with other skin ulcer; I87.2 Venous insufficiency (chronic) (peripheral); N18.9 Chronic kidney disease, unspecified; Z91.19 Patient's noncompliance with other medical treatment and regimen; Z89.512 Acquired absence of left leg below knee; Z71.3 Dietary counseling and surveillance; I12.9 Hypertensive chronic kidney disease with stage 1 through stage 4 chronic kidney disease, or unspecified chronic kidney disease; E11.65 Type 2 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with hyperglycemia; E11.42 Type 2 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with diabetic polyneuropathy
CPT/HCPCS: 11042; 11045

== ENCOUNTER 2019-02-22 09:15 | Outpatient (RCR) | payer MEDICARE, MEDICAID, SELFPAY ==
[2019-02-05 00:30] VITALS: BP 146/76; PULSE 91; RESP 16; TEMP 36.1
[2019-02-08 09:06] VITALS: BP 112/47; PULSE 87; RESP 18; TEMP 36.2; BMI 45.6
--- NOTE | 2019-02-08 10:00 | PCM.WC.PN ---
(1) Ulcer of left lower extremity, limited to breakdown of skin Status: Chronic Current Visit: Yes Code(s): L97.921 - Non-pressure chronic ulcer of unspecified part of left lower leg limited to breakdown of skin (2) Ulcer of right lower extremity with fat layer exposed Status: Resolved Current Visit: Yes Code(s): L97.912 - Non-pressure chronic ulcer of unspecified part of right lower leg with fat layer exposed (3) Lymphedema Status: Chronic Current Visit: Yes Code(s): I89.0 - Lymphedema, not elsewhere classified (4) Chronic ulcer of right foot with fat layer exposed Status: Chronic Current Visit: Yes Code(s): L97.512 - Non-pressure chronic ulcer of other part of right foot with fat layer exposed (5) BKA stump complication Status: Chronic Current Visit: Yes Code(s): T87.9 - Unspecified complications of amputation stump (6) Type 2 diabetes mellitus with diabetic polyneuropathy Status: Chronic Current Visit: No Code(s): E11.42 - Type 2 diabetes mellitus with diabetic polyneuropathy Type of Wound Date of Service: 02/08/19 Chief Complaint: 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 Right toe ulcers. left stump ulcers. New right leg ulcer at previous blister site History of Wound: 58-year-old male returns to clinic for follow-up of bilateral leg ulcers and right foot ulcers. He denies fever, chill, nausea, vomiting, loss of appetite. He had multiple advanced wound care product applications. He denies redness. He has more frequent dressing changes with home. Reports no odor. Progress of Wound: improving right foot and heel and left stump site. right leg ulcer healed - Physical Exam Vital Signs Temp Pulse Resp BP 97.1 F L 87 18 112/47 L 02/08/19 09:06 02/08/19 09:06 02/08/19 09:06 02/08/19 09:06 General: Alert, Oriented x3, Cooperative, No apparent distress HEENT: Atraumatic Extremities: No cyanosis, Capillary Refill Less than 3 Seconds, No Calf Tenderness - Negative Harry and Badillo sign right, Diminished Peripheral Pulses, Edema - Decreased bilateral lower extremities. His clinical exam is consistent with lymphedema, - - Left below-knee amputation Skin: Ulcer/ Wound - No purulence, erythema, string, odor, infection. The left lower extremity stump site only has some hemorrhagic tissue noted. There is no interdigital maceration necrosis or deep tissue exposure to right leg. Wound Measurements and Assessment WC - Nurse 1 - General Ulcer Measurement Start: 02/08/19 09:06 Freq: Status: Active Protocol: Activity Type Activity Date Activity User E-Sign Co-Sign Detail Recorded Client Recorded Date Recorded By Document 02/08/19 09:06 ALTHEA [id number] 02/08/19 09:30 ALTHEA 02/08/19 09:06 Wound Center Nurse 1 [Ulcer Assessment] #26 right lateral leg cluster -Combined with other wound No -Current Size (cm) - Length 1 -Current Size (cm) - Width 1 -Current Size (cm) - Depth 0.1 -Total Square Cm 1 -Tunneling No -Undermining/Tunneling No -Circular Undermining No -Exudate Amt Small -Exudate Type Serosanguineous -Wound Margin Flat & Intact -Granulation Amt Medium (34-66%) -Granulation Quality [place] -Slough/Fibrin Yes -Necrosis Amt Small (1-33%) -Necrotic Tissue Type Adherent Slough -Structure Exposed N/A -Texture (Martha-wound Skin Appearance) Assessed -Moisture (Martha-wound Skin Appearance Assessed ) -Color (Martha-wound Skin Appearance) Assessed -Temperature (Martha-wound Skin No Abnormality Appearance) (Pt Warm) -Tenderness on Palpation (Martha-wound No Skin Appearance) -Ulcer Cleansing Wound Cleanser -Foul Odor after Cleansing No -Anesthetic Used 4% Lidocaine Solution #22 left stump -Combined with other wound No -Current Size (cm) - Length 6 -Current Size (cm) - Width 8.5 -Current Size (cm) - Depth 0.1 -Total Square Cm 51.0 -Tunneling No -Undermining/Tunneling No -Circular Undermining No -Exudate Amt Large -Exudate Type Serosanguineous -Wound Margin Flat & Intact -Granulation Amt Large (67-100%) -Granulation Quality [place] -Slough/Fibrin Yes -Necrosis Amt Small (1-33%) -Necrotic Tissue Type Adherent Slough -Structure Exposed N/A -Texture (Martha-wound Skin Appearance) Assessed -Moisture (Martha-wound Skin Appearance Assessed, ) Maceration -Color (Martha-wound Skin Appearance) Assessed -Tenderness on Palpation (Martha-wound No Skin Appearance) -Ulcer Cleansing Wound Cleanser -Foul Odor after Cleansing No -Anesthetic Used 4% Lidocaine Solution #13 R Med Heel -Combined with other wound No -Current Size (cm) - Length 2.7 -Current Size (cm) - Width 2.5 -Current Size (cm) - Depth 0.2 -Total Square Cm 6.75 -Tunneling No -Undermining/Tunneling No -Circular Undermining No -Granulation Amt Medium (34-66%) -Granulation Quality [place] -Slough/Fibrin Yes -Necrosis Amt Small (1-33%) -Necrotic Tissue Type Adherent Slough -Structure Exposed N/A -Texture (Martha-wound Skin Appearance) Assessed -Moisture (Martha-wound Skin Appearance Maceration ) -Color (Martha-wound Skin Appearance) Assessed -Temperature (Martha-wound Skin No Abnormality Appearance) (Pt Warm) -Tenderness on Palpation (Martha-wound No Skin Appearance) -Ulcer Cleansing Wound Cleanser -Foul Odor after Cleansing No -Anesthetic Used 4% Lidocaine Solution #21 Right Foot-Toes w/Metatarsal Head circumfrential -Combined with other wound No -Current Size (cm) - Length 8 -Current Size (cm) - Width 7.8 -Current Size (cm) - Depth 0.1 -Total Square Cm 62.4 -Tunneling No -Undermining/Tunneling No -Circular Undermining No -Exudate Amt Large -Exudate Type Serosanguineous -Wound Margin Flat & Intact -Granulation Amt Medium (34-66%) -Granulation Quality [place] -Necrosis Amt Medium (34-66%) -Necrotic Tissue Type Adherent Slough -Structure Exposed N/A -Texture (Martha-wound Skin Appearance) Assessed -Moisture (Martha-wound Skin Appearance Maceration ) -Color (Martha-wound Skin Appearance) Assessed -Temperature (Martha-wound Skin No Abnormality Appearance) (Pt Warm) -Tenderness on Palpation (Martha-wound No Skin Appearance) -Ulcer Cleansing Wound Cleanser -Foul Odor after Cleansing No -Anesthetic Used 4% Lidocaine Solution [Edema Assessment] -Lower Limb Edema Present Yes -Right Calf (cm) 39.5 -Right Ankle (cm) 24.5 -Left Calf (cm) 37.5 Musculoskeletal: No Tenderness to Palpation of Joints or Extremities, Muscle Wasting Neurological: - - Lack of normal epicritic sensation consistent with neuropathy to light touch Psych/Mental Status: Normal Affect, Appropriate Debridement Note Wound debrided: heel Laterality: Right Wound Grade/Stage: grade 3 Type of Debridement: Excisional debridement Anesthesia Used: 5% Lidocaine Gel Depth: in the subcutaneous layer Percentage of wound debrided: 100 Instrument Used: 5mm curette Tissue Removed: fibrous, devitalized subcutaneous, biofilm, slough Severity: Fat Layer Exposed Amount of bleeding with debridement: Mild Bleeding Controlled with: Pressure Patient tolerated procedure well - Additional Wound Wound debrided: toe cluster Laterality: Right Wound Grade/Stage: grade 1 Type of Debridement: Excisional debridement Anesthesia Used: 5% Lidocaine Gel Depth: in the subcutaneous layer Percentage of wound debrided: 100 Instrument Used: #15 blade Tissue Removed: fibrous, devitalized subcutaneous, biofilm, slough Severity: Fat Layer Exposed Amount of bleeding with debridement: Mild Bleeding Controlled with: Pressure Patient tolerated procedure: Patient tolerated procedure well Assessment/Plan Active Problems Ulcer of left lower extremity, limited to breakdown of skin (Chronic) Lymphedema (Chronic) Chronic ulcer of right foot with fat layer exposed (Chronic) BKA stump complication (Chronic) Assessment: ulcer right forefoot stable with fat layer exposed. Right heel ulcer with fat layer exposed. Left below-knee amputation with skin tissue exposed stable. Lymphedema. Right leg ulcers healed. Chronic lower extremity edema and venous insufficiency. Morbid obesity. Type 2 diabetes uncontrolled with peripheral neuropathy. CKD. Hypertension. Malnutrition. Delayed wound healing. Nonadherence to treatment plan Plan: I reviewed and discussed his case. There are no signs of infection. I advised him to wear the donut offloading pillow and prevent pressure on this site. I do not recommend advanced wound healing clinic application due to increased maceration and weeping. To change dressing daily with Aquacel Ag and Optifoam instead. He has been doing well with this recently. To change Jose Antonio wraps to bilateral lower extremities daily. To continue with elevation and lymphedema pump use. The goal of the dressing changes are to avoid moist macerated dressings from sitting on the wound for extended period of time and also to maintain appropriate compression. The patient understands his noncompliance in combination with his chronic venous insufficiency and lymphedema is contributing to exacerbation. The patency of his previous arterial stent was checked with Dr. Nixon this year, and the current recommendation is to continue with strict compression with lymphedema pumps. Per patient, arterial duplex was performed during his last vascular surgery follow-up, and he appears to have continued perfusion to the right lower extremity and no vascular intervention is planned at this time. Continue protein suppplements and increased protein in diet. I also recommend a lymphedema clinic. He went approximately 3 years ago and found this to be very helpful. He no longer has his thigh-high compression garments that were arranged for him during this last session. Farrow wrap order will be processed at this time for the right lower extremity for better edema control there is a lymphedema clinic in [place] and his information was sent over. They can only see him once he is d/c from home health; this is noted. To keep pressure off of his left below-knee amputation stump site. Bilateral offloading donut pillow were recommended. He is at risk for continued limb loss and due to his condition and he understands. Follow up in 1 week at the wound healing center. He was also advised to call sooner if he has any questions or concerns.
[2019-02-22 09:22] VITALS: BMI 45.6
--- NOTE | 2019-02-22 14:12 | PCM.WC.PN ---
(1) Ulcer of left lower extremity, limited to breakdown of skin Status: Chronic Current Visit: Yes Code(s): L97.921 - Non-pressure chronic ulcer of unspecified part of left lower leg limited to breakdown of skin (2) Ulcer of right lower extremity with fat layer exposed Status: Resolved Current Visit: Yes Code(s): L97.912 - Non-pressure chronic ulcer of unspecified part of right lower leg with fat layer exposed (3) Lymphedema Status: Chronic Current Visit: Yes Code(s): I89.0 - Lymphedema, not elsewhere classified (4) Chronic ulcer of right foot with fat layer exposed Status: Chronic Current Visit: Yes Code(s): L97.512 - Non-pressure chronic ulcer of other part of right foot with fat layer exposed (5) BKA stump complication Status: Chronic Current Visit: Yes Code(s): T87.9 - Unspecified complications of amputation stump (6) Type 2 diabetes mellitus with diabetic polyneuropathy Status: Chronic Current Visit: Yes Code(s): E11.42 - Type 2 diabetes mellitus with diabetic polyneuropathy Type of Wound Date of Service: 02/22/19 Chief Complaint: 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 Right toe ulcers. left stump ulcers History of Wound: 58-year-old male returns to clinic for follow-up of bilateral leg ulcers and right foot ulcers. He denies fever, chill, nausea, vomiting, loss of appetite. He had multiple advanced wound care product applications. He denies redness. He has continued to do more frequent dressing changes with home. He denies odor. He does relate he has more zapping burning to the right foot consistent with his neuropathy. Progress of Wound: improving right foot and heel and left stump site - Physical Exam Vital Signs Temp Pulse Resp BP 97.1 F L 87 18 112/47 L 02/08/19 09:06 02/08/19 09:06 02/08/19 09:06 02/08/19 09:06 General: Alert, Oriented x3, Cooperative, No apparent distress HEENT: Atraumatic Skin: Ulcer/ Wound - No purulence, erythema, streaking, or, infection. There is some hemorrhagic tissue mainly to the left BKA stump site and right toe area. There is good peripheral epithelialization at the right heel. His skin is very hairless and atrophic with chronic lymphedema changes Wound Measurements and Assessment WC - Nurse 1 - General Ulcer Measurement Start: 02/08/19 09:06 Freq: Status: Active Protocol: Activity Type Activity Date Activity User E-Sign Co-Sign Detail Recorded Client Recorded Date Recorded By Document 02/22/19 09:22 CO [id number] 02/22/19 09:31 CO 02/22/19 09:22 Wound Center Nurse 1 [Ulcer Assessment] #26 right lateral leg cluster -Current Size (cm) - Length 0.1 -Current Size (cm) - Width 0.1 -Current Size (cm) - Depth 0.1 -Total Square Cm 0.01 -Necrosis Amt Large (67-100%) #22 left stump -Current Size (cm) - Length 7 -Current Size (cm) - Width 7.5 -Current Size (cm) - Depth 0.1 -Total Square Cm 52.5 -Date of Last Picture (Recall this 02/22/19 field) -Photo Taken Yes -Exudate Amt Small -Exudate Type Serosanguineous -Wound Margin Flat & Intact -Granulation Amt Medium (34-66%) -Granulation Quality Pale,[employer] -Necrosis Amt Medium (34-66%) -Necrotic Tissue Type Adherent Slough -Texture (Martha-wound Skin Appearance) Assessed -Moisture (Martha-wound Skin Appearance Assessed, ) Maceration -Color (Martha-wound Skin Appearance) Assessed -Temperature (Martha-wound Skin No Abnormality Appearance) (Pt Warm) -Tenderness on Palpation (Martha-wound No Skin Appearance) -Ulcer Cleansing Rinsed/ Irrigated with Saline -Foul Odor after Cleansing No -Anesthetic Used 4% Lidocaine Solution #13 R Med Heel -Current Size (cm) - Length 2 -Current Size (cm) - Width 3 -Current Size (cm) - Depth 0.1 -Total Square Cm 6 -Exudate Amt Small -Exudate Type Serosanguineous -Wound Margin Flat & Intact -Granulation Amt Large (67-100%) -Granulation Quality Red -Slough/Fibrin No -Texture (Martha-wound Skin Appearance) Assessed -Moisture (Martha-wound Skin Appearance Assessed, ) Maceration -Color (Martha-wound Skin Appearance) Assessed, Erythema -Temperature (Martha-wound Skin No Abnormality Appearance) (Pt Warm) -Tenderness on Palpation (Martha-wound No Skin Appearance) -Ulcer Cleansing Rinsed/ Irrigated with Saline -Foul Odor after Cleansing No -Anesthetic Used 4% Lidocaine Solution #21 Right Foot-Toes w/Metatarsal Head circumfrential -Current Size (cm) - Length 10 -Current Size (cm) - Width 6.5 -Current Size (cm) - Depth 0.4 -Total Square Cm 65.0 -Exudate Amt Small -Exudate Type Serosanguineous -Wound Margin Flat & Intact -Granulation Amt Large (67-100%) -Granulation Quality Red -Slough/Fibrin Yes -Necrosis Amt Small (1-33%) -Texture (Martha-wound Skin Appearance) Assessed -Moisture (Martha-wound Skin Appearance Assessed, ) Maceration -Color (Martha-wound Skin Appearance) Assessed,Rubor -Temperature (Martha-wound Skin No Abnormality Appearance) (Pt Warm) -Tenderness on Palpation (Martha-wound No Skin Appearance) -Ulcer Cleansing Rinsed/ Irrigated with Saline -Foul Odor after Cleansing No -Anesthetic Used 4% Lidocaine Solution [Edema Assessment] -Right Calf (cm) 43.5 -Right Ankle (cm) 27 -Left Calf (cm) 42.5 Musculoskeletal: No Tenderness to Palpation of Joints or Extremities, Muscle Wasting, - - Left below-knee amputation. Lymphedema bilateral Neurological: - - Lack of normal epicritic sensation light touch consistent with neuropathy bilateral Psych/Mental Status: Normal Affect, Appropriate Debridement Note Post-Debridement Measurements/Treatment WC - Nurse 2 - General Ulcer CM Notes Start: 02/08/19 09:06 Freq: Status: Active Protocol: Activity Type Activity Date Activity User E-Sign Co-Sign Detail Recorded Client Recorded Date Recorded By Document 02/08/19 11:58 AN [id number] 02/08/19 12:01 AN 02/08/19 11:58 Wound Center Nurse 2 #26 right lateral leg cluster -Time 12:00 -Correct Patient Yes -Correct Side, Site, Position Yes -Correct Procedure Yes -Procedure Performed Yes -Type of Procedure Debridement -Clinical Debridement Subcutaneous -Post Debridement Size (cm) - Length 1.1 -Post Debridement Size (cm) - Width 1.1 -Post Debridement Size (cm) - Depth 0.1 -Total Square Cm 1.21 -Wound/Ulcer Outcome Not Healed -Bleeding Controlled with Pressure -Offloading Yes -Treatment Response Procedure Tolerated Well #22 left stump -Time 11:00 -Correct Patient Yes -Correct Side, Site, Position Yes -Correct Procedure Yes -Procedure Performed No #13 R Med Heel -Time 11:00 -Correct Patient Yes -Correct Side, Site, Position Yes -Correct Procedure Yes -Procedure Performed Yes -Type of Procedure Debridement -Clinical Debridement Subcutaneous -Post Debridement Size (cm) - Length 2.7 -Post Debridement Size (cm) - Width 2.5 -Post Debridement Size (cm) - Depth 0.2 -Total Square Cm 6.75 -Wound/Ulcer Outcome Not Healed -Ulcer Cleansing Rinsed/ Irrigated with Saline -Foul Odor after Cleansing No -Bioengineered Tissue No -Bleeding Controlled with Pressure -Offloading Yes -Treatment Response Procedure Tolerated Well #21 Right Foot-Toes w/Metatarsal Head circumfrential -Time 11:00 -Correct Patient Yes -Correct Side, Site, Position Yes -Correct Procedure Yes -Procedure Performed Yes -Type of Procedure Debridement -Clinical Debridement Subcutaneous -Post Debridement Size (cm) - Length 8.1 -Post Debridement Size (cm) - Width 7.9 -Post Debridement Size (cm) - Depth 0.1 -Total Square Cm 63.99 -Wound/Ulcer Outcome Not Healed -Ulcer Cleansing Rinsed/ Irrigated with Saline -Foul Odor after Cleansing No -Bioengineered Tissue No -Bleeding Controlled with Pressure -Offloading Yes -Treatment Response Procedure Tolerated Well Pain Scale: 0-10 Numeric Is Patient Pain Free? Yes Wound debrided: BKA stump Laterality: Left Wound Grade/Stage: grade 1 Type of Debridement: Selective debridement Anesthesia Used: 5% Lidocaine Gel Depth: Down to and including healthy tissue Percentage of wound debrided: 10 Instrument Used: #15 blade Tissue Removed: fibrous, devitalized tissue, biofilm, slough Severity: Fat Layer Exposed Amount of bleeding with debridement: Mild Bleeding Controlled with: Pressure Patient tolerated procedure well - Additional Wound Wound debrided: heel Laterality: Right Wound Grade/Stage: grade 3 Type of Debridement: Excisional debridement Anesthesia Used: 5% Lidocaine Gel Depth: in the subcutaneous layer Percentage of wound debrided: 100 Instrument Used: #15 blade Tissue Removed: fibrous, devitalized subcutaneous, biofilm, slough Severity: Fat Layer Exposed Amount of bleeding with debridement: Mild Bleeding Controlled with: Pressure Patient tolerated procedure: Patient tolerated procedure well - Additional Wound Wound debrided: toe cluster Laterality: Right Wound Grade/Stage: grade 1 Type of Debridement: Excisional debridement Anesthesia Used: 5% Lidocaine Gel Depth: in the subcutaneous layer Percentage of wound debrided: 20 Instrument Used: #15 blade Tissue Removed: fibrous, devitalized subcutaneous, biofilm, slough Severity: Fat Layer Exposed Amount of bleeding with debridement: Mild Bleeding Controlled with: Pressure Patient tolerated procedure: Patient tolerated procedure well Assessment/Plan Active Problems Ulcer of left lower extremity, limited to breakdown of skin (Chronic) Lymphedema (Chronic) Chronic ulcer of right foot with fat layer exposed (Chronic) BKA stump complication (Chronic) Type 2 diabetes mellitus with diabetic polyneuropathy (Chronic) Assessment: ulcer right forefoot stable with fat layer exposed. Right heel ulcer with fat layer exposed. Left below-knee amputation with skin tissue exposed stable. Lymphedema. Right leg ulcers healed. Chronic lower extremity edema and venous insufficiency. Morbid obesity. Type 2 diabetes uncontrolled with peripheral neuropathy. Neuropathy irritation this past week is noted. CKD. Hypertension. Malnutrition. Delayed wound healing. Nonadherence to treatment plan Plan: I reviewed and discussed his case. There are no signs of infection. I advised him to wear the donut offloading pillow and prevent pressure on this site. To change dressing daily with Aquacel Ag and Optifoam instead. He has been doing well with this recently. To change Jose Antonio wraps to bilateral lower extremities daily. To continue with elevation and lymphedema pump use. The goal of the dressing changes are to avoid moist macerated dressings from sitting on the wound for extended period of time and also to maintain appropriate compression. The patient understands his noncompliance in combination with his chronic venous insufficiency and lymphedema is contributing to exacerbation. The patency of his previous arterial stent was checked with Dr. Nixon this year, and the current recommendation is to continue with strict compression with lymphedema pumps. Per patient, arterial duplex was performed during his last vascular surgery follow-up, and he appears to have continued perfusion to the right lower extremity and no vascular intervention is planned at this time. Continue protein suppplements and increased protein in diet. I also recommend a lymphedema clinic. He went approximately 3 years ago and found this to be very helpful. He no longer has his thigh-high compression garments that were arranged for him during this last session. Farrow wrap order will be processed at this time for the right lower extremity for better edema control there is a lymphedema clinic in [place] and his information was sent over. They can only see him once he is d/c from home health; this is noted. To keep pressure off of his left below-knee amputation stump site. Bilateral offloading donut pillow were recommended. He is at risk for continued limb loss and due to his condition and he understands. Follow up in 1 week at the wound healing center. He was also advised to call sooner if he has any questions or concerns.
== END 2019-03-06 23:59 ==
LOC: WC 09:15
PROVIDERS: Family Provider Family Medicine Geriatric Medicine; PCP Family Medicine Geriatric Medicine; Referring Provider Podiatrist; Visit Provider Podiatrist
DX: E11.621 Type 2 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with foot ulcer (principal); I89.0 Lymphedema, not elsewhere classified; T87.89 Other complications of amputation stump; E11.22 Type 2 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with diabetic chronic kidney disease; E11.42 Type 2 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with diabetic polyneuropathy; L97.512 Non-pressure chronic ulcer of other part of right foot with fat layer exposed; L97.412 Non-pressure chronic ulcer of right heel and midfoot with fat layer exposed; E66.01 Morbid (severe) obesity due to excess calories; R60.0 Localized edema; I87.2 Venous insufficiency (chronic) (peripheral); E11.65 Type 2 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with hyperglycemia; N18.3 Chronic kidney disease, stage 3 (moderate); I12.9 Hypertensive chronic kidney disease with stage 1 through stage 4 chronic kidney disease, or unspecified chronic kidney disease; L97.822 Non-pressure chronic ulcer of other part of left lower leg with fat layer exposed
CPT/HCPCS: 11042; 97597

== ENCOUNTER 2019-03-15 09:51 | Outpatient (RCR) | payer MEDICARE, MEDICAID, SELFPAY ==
[2019-03-07 00:33] VITALS: BP 112/47; PULSE 87; RESP 18; TEMP 36.2
[2019-03-15 09:08] VITALS: BP 129/54; PULSE 83; RESP 16; TEMP 35.9; BMI 45.6
--- NOTE | 2019-03-15 11:49 | PN.PCM_ITS ---
(1) Ulcer of left lower extremity, limited to breakdown of skin Status: Chronic Current Visit: Yes Code(s): L97.921 - Non-pressure chronic ulcer of unspecified part of left lower leg limited to breakdown of skin (2) Non-compliance Status: Chronic Current Visit: Yes Code(s): Z91.19 - Patient's noncompliance with other medical treatment and regimen (3) Lymphedema Status: Chronic Current Visit: Yes Code(s): I89.0 - Lymphedema, not elsewhere classified (4) Ulcer of right foot with fat layer exposed Status: Chronic Current Visit: Yes Code(s): L97.512 - Non-pressure chronic ulcer of other part of right foot with fat layer exposed (5) Morbid obesity Status: Chronic Current Visit: Yes Code(s): E66.01 - Morbid (severe) obesity due to excess calories (6) Chronic kidney disease (CKD) Status: Chronic Current Visit: Yes Qualifiers: Code(s): N18.9 - Chronic kidney disease, unspecified (7) BKA stump complication Status: Chronic Current Visit: Yes Code(s): T87.9 - Unspecified complications of amputation stump (8) Type 2 diabetes mellitus with diabetic polyneuropathy Status: Chronic Current Visit: Yes Code(s): E11.42 - Type 2 diabetes mellitus with diabetic polyneuropathy (9) Delayed wound healing Status: Chronic Current Visit: Yes Code(s): T14.8 - Other injury of unspecified body region (10) Malnutrition Status: Chronic Current Visit: Yes Code(s): E46 - Unspecified protein- calorie malnutrition Type of Wound Date of Service: 03/15/19 Chief Complaint: 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 Right toe ulcers. left stump ulcers History of Wound: 58-year-old male returns to clinic for follow-up of bilateral leg ulcers and right foot ulcers. He denies fever, chill, nausea, vomiting, loss of appetite. He had multiple advanced wound care product applications. He denies redness. He has continued to do more frequent dressing changes with home. He denies odor. Progress of Wound: improving right foot and heel and left stump site - Physical Exam Vital Signs Temp Pulse Resp BP 96.6 F L 83 16 129/54 H 03/15/19 09:08 03/15/19 09:08 03/15/19 09:08 03/15/19 09:08 General: Alert, Oriented x3, Cooperative, No apparent distress Extremities: No cyanosis, Capillary Refill Less than 3 Seconds, No Calf Tenderness - Negative Harry and Badillo sign right, Diminished Peripheral Pulses, Edema - Lymphedema bilateral lower extremities, - - Left below-knee amputation Skin: Ulcer/ Wound - Only sub-hemorrhagic tissue was exposed to the left below- knee amputation stump site with scant serous drainage. The right foot toe ulcer area significantly reduced in size and there is decreased maceration. The right heel also has improved granulation tissue. There is no purulence, erythema, string, odor, infection bilateral lower extremities. His peripheral skin is hairless and atrophic. Wound Measurements and Assessment WC - Nurse 1 - General Ulcer Measurement Start: 03/15/19 09:08 Freq: Status: Active Protocol: Activity Type Activity Date Activity User E-Sign Co-Sign Detail Recorded Client Recorded Date Recorded By Document 03/15/19 09:08 [id number] 03/15/19 09:13 03/15/19 09:08 Wound Center Nurse 1 [Ulcer Assessment] #22 left stump -Combined with other wound No -Current Size (cm) - Length 0.8 -Current Size (cm) - Width 1 -Current Size (cm) - Depth 0.1 -Total Square Cm 0.8 -Photo Taken No -Epithelialization None Present -Tunneling No -Undermining/Tunneling No -Circular Undermining No -Exudate Amt Medium -Exudate Type Serosanguineous -Wound Margin Distinct, Outline Attached -Granulation Amt Large (67-100%) -Granulation Quality Red -Necrosis Amt None Present (0 %) -Necrotic Tissue Type Adherent Slough -Structure Exposed N/A -Texture (Martha-wound Skin Appearance) No Abnormality, Assessed -Moisture (Martha-wound Skin Appearance No Abnormality, ) Assessed -Color (Martha-wound Skin Appearance) Erythema -Temperature (Martha-wound Skin No Abnormality Appearance) (Pt Warm) -Tenderness on Palpation (Martha-wound No Skin Appearance) -Ulcer Cleansing Rinsed/ Irrigated with Saline -Foul Odor after Cleansing No -Anesthetic Used 4% Lidocaine Solution #13 R Med Heel -Combined with other wound No -Current Size (cm) - Length 2 -Current Size (cm) - Width 3 -Current Size (cm) - Depth 0.2 -Total Square Cm 6 -Photo Taken No -Epithelialization None Present -Tunneling No -Undermining/Tunneling No -Circular Undermining No -Exudate Amt Medium -Exudate Type Serosanguineous -Wound Margin Distinct, Outline Attached -Granulation Amt Medium (34-66%) -Granulation Quality Red -Slough/Fibrin No -Necrosis Amt None Present (0 %) -Necrotic Tissue Type Adherent Slough -Structure Exposed N/A -Texture (Martha-wound Skin Appearance) No Abnormality -Moisture (Martha-wound Skin Appearance No Abnormality, ) Assessed -Color (Martha-wound Skin Appearance) Erythema -Temperature (Martha-wound Skin No Abnormality Appearance) (Pt Warm) -Tenderness on Palpation (Martha-wound No Skin Appearance) -Ulcer Cleansing Rinsed/ Irrigated with Saline -Foul Odor after Cleansing No -Anesthetic Used 4% Lidocaine Solution #21 Right Foot-Toes w/Metatarsal Head circumfrential -Combined with other wound No -Current Size (cm) - Length 5 -Current Size (cm) - Width 2 -Current Size (cm) - Depth 0.5 -Total Square Cm 10 -Photo Taken No -Epithelialization None Present -Tunneling No -Undermining/Tunneling No -Circular Undermining No -Exudate Amt Medium -Exudate Type Serosanguineous -Wound Margin Distinct, Outline Attached -Granulation Amt Small (1-33%) -Granulation Quality Red -Slough/Fibrin No -Necrosis Amt None Present (0 %) -Necrotic Tissue Type Adherent Slough -Structure Exposed N/A -Texture (Martha-wound Skin Appearance) No Abnormality, Assessed -Moisture (Martha-wound Skin Appearance Maceration ) -Color (Martha-wound Skin Appearance) No Abnormality, Assessed -Temperature (Martha-wound Skin No Abnormality Appearance) (Pt Warm) -Ulcer Cleansing Rinsed/ Irrigated with Saline -Foul Odor after Cleansing No -Anesthetic Used 4% Lidocaine Solution [Edema Assessment] -Lower Limb Edema Present No -Right Calf (cm) 44.7 -Right Ankle (cm) 28 -Left Calf (cm) 45.6 Musculoskeletal: No Tenderness to Palpation of Joints or Extremities, Muscle Wasting, - - Compartment soft to palpate bilateral lower extremities Neurological: - - Lack of normal epicritic sensation light touch consistent with neuropathy bilateral Psych/Mental Status: Normal Affect, Appropriate Debridement Note Wound debrided: stump BKA site Laterality: Left Wound Grade/Stage: grade 1 Type of Debridement: Excisional debridement Anesthesia Used: 5% Lidocaine Gel Depth: in the subcutaneous layer Percentage of wound debrided: 100 Instrument Used: #15 blade Tissue Removed: fibrous, devitalized subcutaneous, biofiom, slough Severity: Fat Layer Exposed Amount of bleeding with debridement: Mild Bleeding Controlled with: Pressure Patient tolerated procedure well - Additional Wound Wound debrided: toes Laterality: Right Wound Grade/Stage: grade 1 Type of Debridement: Excisional debridement Anesthesia Used: 5% Lidocaine Gel Depth: in the subcutaneous layer Percentage of wound debrided: 100 Instrument Used: #15 blade Tissue Removed: fibrous, devitalized subcutaneous, biofiom, slough Severity: Fat Layer Exposed Amount of bleeding with debridement: Mild Bleeding Controlled with: Pressure Patient tolerated procedure: Patient tolerated procedure well - Additional Wound Wound debrided: heel Laterality: Right Wound Grade/Stage: grade 3 Type of Debridement: Excisional debridement Anesthesia Used: 5% Lidocaine Gel Depth: in the subcutaneous layer Percentage of wound debrided: 100 Instrument Used: #15 blade Tissue Removed: fibrous, devitalized subcutaneous, biofiom, slough Severity: Fat Layer Exposed Amount of bleeding with debridement: Mild Bleeding Controlled with: Pressure Patient tolerated procedure: Patient tolerated procedure well Assessment/Plan Active Problems Ulcer of left lower extremity, limited to breakdown of skin (Chronic) Non-compliance (Chronic) Lymphedema (Chronic) Ulcer of right foot with fat layer exposed (Chronic) Morbid obesity (Chronic) Chronic kidney disease (CKD) (Chronic) BKA stump complication (Chronic) Type 2 diabetes mellitus with diabetic polyneuropathy (Chronic) Delayed wound healing (Chronic) Malnutrition (Chronic) Assessment: ulcer right forefoot stable with fat layer exposed. Right heel ulcer with fat layer exposed. Left below-knee amputation with skin tissue exposed stable. Lymphedema. Chronic lower extremity edema and venous insufficiency. Morbid obesity. Type 2 diabetes uncontrolled with peripheral neuropathy. Neuropathy. CKD. Hypertension. Malnutrition. Delayed wound healing. Nonadherence to treatment plan Plan: I reviewed and discussed his case. There are no signs of infection. I advised him to wear the donut offloading pillow and prevent pressure on this site. To change dressing daily (Wednesday, Wednesday, , Wednesday) with Aquacel Ag and Optifoam instead. He has been doing well with this recently. To change Jose Antonio wraps to bilateral lower extremities daily. To continue with elevation and lymphedema pump use. The goal of the dressing changes are to avoid moist macerated dressings from sitting on the wound for extended period of time and also to maintain appropriate compression. The patient understands his noncompliance in combination with his chronic venous insufficiency and lymphedema is contributing to exacerbation. The patency of his previous arterial stent was checked with Dr. Nixon this year, and the current recommendation is to continue with strict compression with lymphedema pumps. Per patient, arterial duplex was performed during his last vascular surgery follow-up, and he appears to have continued perfusion to the right lower extremity and no vascular intervention is planned at this time. Continue protein suppplements and increased protein in diet. I also recommend a lymphedema clinic. He went approximately 3 years ago and found this to be very helpful. He no longer has his thigh-high compression garments that were arranged for him during this last session. [place] wrap order will be processed at this time for the right lower extremity for better edema control there is a lymphedema clinic in [place] and his information was sent over. They can only see him once he is d/c from home health; this is noted. To keep pressure off of his left below-knee amputation stump site. Bilateral offloading donut pillow were recommended. He is at risk for continued limb loss and due to his condition and he understands. Follow up in 1 week at the wound healing center. He was also advised to call sooner if he has any questions or concerns. He is on a palliative care program.
== END 2019-04-06 23:59 ==
LOC: WC 09:51
PROVIDERS: Family Provider Family Medicine Geriatric Medicine; PCP Family Medicine Geriatric Medicine; Referring Provider Podiatrist; Visit Provider Podiatrist
DX: E11.621 Type 2 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with foot ulcer (principal); Z91.19 Patient's noncompliance with other medical treatment and regimen; I89.0 Lymphedema, not elsewhere classified; E66.01 Morbid (severe) obesity due to excess calories; Z71.3 Dietary counseling and surveillance; E11.22 Type 2 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with diabetic chronic kidney disease; N18.9 Chronic kidney disease, unspecified; T87.89 Other complications of amputation stump; L97.512 Non-pressure chronic ulcer of other part of right foot with fat layer exposed; L97.412 Non-pressure chronic ulcer of right heel and midfoot with fat layer exposed; E11.42 Type 2 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with diabetic polyneuropathy; L97.822 Non-pressure chronic ulcer of other part of left lower leg with fat layer exposed
CPT/HCPCS: 11042; 97597

== ENCOUNTER → 2019-04-20 09:13 | Outpatient (CLI) | payer MEDICARE, MEDICAID, SELFPAY ==
[2019-04-20 12:37] LABS: Vitamin D,25 Hydroxy 74.2 ng/mL (29.95-100.01)
[2019-04-20 12:40] LABS: Absolute Lymphocyte Count 1.36 X10^3/uL (0.83-4.51); Absolute Neutrophil Count 7.9 X10^3/uL (2.0-7.7); Basophil# 0.04 X10^3/uL; Basophil% 0.4 % (0-1); Eosinophil# 0.27 X10^3/uL; Eosinophils% 2.6 % (0-5); Hematocrit 31.8 % (40-54); Hemoglobin 9.5 g/dL (13.0-16.5); Lymphocyte # 1.36 X10^3/ul (4.0); Lymphocyte % 13.1 % (19-41); Mean Corp Hgb Conc 29.9 g/dL (32-36); Mean Corpuscular Hgb 27.1 pg (27.0-32.0); Mean Corpuscular Volume 90.6 fL (80-94); Mean Platelet Vol. 11.1 fl (6.2-12.0); Monocyte# 0.65 X10^3/uL; Monocyte% 6.3 % (0-10); NRBC Flagged by Analyzer 0 % (0-5); Neutrophil # 7.86 X10^3/uL (2.7-7.7); Neutrophil % 75.9 % (47-70); Platelet Count 157 K/mm3 (150-450); RBC Distribution Width CV 18.2 % (11.6-14.6); RBC Distribution Width SD 58.4 fl (35.1-43.9); Red Blood Count 3.51 M/mm3 (4.6-6.2); White Blood Count 10.4 K/mm3 (4.4-11.0)
[2019-04-20 12:42] LABS: ALB/GLOB Ratio 0.5 RATIO (0.9-2.4); AST(SGOT) 25 U/L (15-37); Alanine Aminotransfer ALT/SGPT 34 U/L (16-61); Albumin, Serum 2.9 g/dL (3.2-5.0); Alkaline Phosphatase 74 U/L (45-117); Anion Gap 8 (5-15); BUN 59 mg/dL (7-18); BUN/Creat Ratio 29.4 RATIO (10-20); Calcium,Total 8.6 mg/dL (8.5-10.1); Chloride 107 mmol/L (98-107); Creatinine, Serum 2.01 mg/dL (0.70-1.30); EST Glomerular Filtration Rate 36 mL/min (>60); Est Glom Filt Rate - Afr Amer 44 mL/min (>60); Globulin 5.5 g/dL (2.2-4.2); Glucose 189 mg/dL (74-106); Potassium 4.7 mmol/L (3.5-5.1); Protein, Total 8.4 g/dL (6.4-8.2); Sodium Level 140 mmol/L (136-145); Thyroid Stim Hormone (TSH) 3.48 uIU/mL (0.358-3.74)
== END ==
PROVIDERS: Family Provider Family Medicine Geriatric Medicine; PCP Family Medicine Geriatric Medicine; Visit Provider Family Medicine Geriatric Medicine
DX: E11.9 Type 2 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without complications (principal); E55.9 Vitamin D deficiency, unspecified; I10 Essential (primary) hypertension
CPT/HCPCS: 36415; 80053; 82306; 84443; 85025

== ENCOUNTER → 2019-07-19 11:28 | Outpatient (CLI) | payer MEDICARE, MEDICAID, SELFPAY ==
[2019-07-19 12:57] LABS: Amphetamine Urine VISTA NEGATIVE (<1000 ng/mL); Barbiturate Urine VISTA NEGATIVE (< 200 ng/mL); Benzodiazepine Urine VISTA NEGATIVE (< 200 ng/mL); Cocaine Urine VISTA NEGATIVE (< 300 ng/mL); Ecstacy Urine VISTA NEGATIVE (< 500 ng/mL); Methadone Urine VISTA NEGATIVE (< 300 ng/mL); PCP Urine VISTA NEGATIVE (< 25 ng/mL); THC Urine VISTA NEGATIVE (< 50 ng/mL); Vista UDS pH Range 5
== END ==
PROVIDERS: PCP Family Medicine Geriatric Medicine; Referring Provider Anesthesiology Pain Medicine; Visit Provider Anesthesiology Pain Medicine
DX: F11.20 Opioid dependence, uncomplicated (principal)
CPT/HCPCS: 80307

== ENCOUNTER → 2019-08-11 10:01 | Outpatient (CLI) | payer MEDICARE, MEDICAID, SELFPAY ==
[2019-08-11 12:40] LABS: Absolute Neutrophil Count 7.3 X10^3/uL (2.0-7.7); Basophil# 0.02 X10^3/uL; Basophil% 0.2 % (0-1); Eosinophil# 0.27 X10^3/uL; Eosinophils% 2.9 % (0-5); Hematocrit 30.6 % (40-54); Hemoglobin 8.9 g/dL (13.0-16.5); Lymphocyte % 12.7 % (19-41); Mean Corp Hgb Conc 29.1 g/dL (32-36); Mean Corpuscular Hgb 25.1 pg (27.0-32.0); Mean Corpuscular Volume 86.4 fL (80-94); Mean Platelet Vol. 11.6 fl (6.2-12.0); Monocyte# 0.62 X10^3/uL; Monocyte% 6.5 % (0-10); NRBC Flagged by Analyzer 0 % (0-5); Neutrophil # 7.27 X10^3/uL (2.7-7.7); Neutrophil % 76.7 % (47-70); Platelet Count 181 K/mm3 (150-450); RBC Distribution Width CV 15.8 % (11.6-14.6); RBC Distribution Width SD 49.8 fl (35.1-43.9); Red Blood Count 3.54 M/mm3 (4.6-6.2); Vitamin D,25 Hydroxy 81.7 ng/mL; White Blood Count 9.5 K/mm3 (4.4-11.0)
[2019-08-11 12:50] LABS: ALB/GLOB Ratio 0.6 RATIO (0.9-2.4); AST(SGOT) 20 U/L (15-37); Alanine Aminotransfer ALT/SGPT 33 U/L (16-61); Alkaline Phosphatase 90 U/L (45-117); Anion Gap 7 (5-15); BUN 50 mg/dL (7-18); BUN/Creat Ratio 22.4 RATIO (10-20); Calcium,Total 8.6 mg/dL (8.5-10.1); Chloride 104 mmol/L (98-107); Creatinine, Serum 2.23 mg/dL (0.70-1.30); EST Glomerular Filtration Rate 32 mL/min (>60); Est Glom Filt Rate - Afr Amer 39 mL/min (>60); Glucose 243 mg/dL (74-106); Sodium Level 139 mmol/L (136-145); Thyroid Stim Hormone (TSH) 2.41 uIU/mL (0.358-3.74)
== END ==
PROVIDERS: PCP Family Medicine Geriatric Medicine; Visit Provider Family Medicine Geriatric Medicine
DX: E11.9 Type 2 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without complications (principal); I10 Essential (primary) hypertension; E55.9 Vitamin D deficiency, unspecified
CPT/HCPCS: 36415; 80053; 82306; 84443; 85025

== ENCOUNTER → 2019-10-10 11:40 | Outpatient (CLI) | payer MEDICARE, MEDICAID, SELFPAY ==
[2019-10-10 12:20] LABS: Absolute Lymphocyte Count 1.47 X10^3/uL (0.83-4.51); Absolute Neutrophil Count 5.4 X10^3/uL (2.0-7.7); Basophil# 0.02 X10^3/uL; Basophil% 0.2 % (0-1); Eosinophil# 0.32 X10^3/uL; Hematocrit 32.7 % (40-54); Hemoglobin 9.6 g/dL (13.0-16.5); Lymphocyte # 1.47 X10^3/ul (4.0); Lymphocyte % 18.4 % (19-41); Mean Corp Hgb Conc 29.4 g/dL (32-36); Mean Corpuscular Hgb 25.4 pg (27.0-32.0); Mean Corpuscular Volume 86.5 fL (80-94); Monocyte# 0.69 X10^3/uL; Monocyte% 8.6 % (0-10); NRBC Flagged by Analyzer 0 % (0-5); Neutrophil # 5.43 X10^3/uL (2.7-7.7); Neutrophil % 67.8 % (47-70); Platelet Count 172 K/mm3 (150-450); RBC Distribution Width CV 15.8 % (11.6-14.6); RBC Distribution Width SD 49.6 fl (35.1-43.9); Red Blood Count 3.78 M/mm3 (4.6-6.2)
[2019-10-10 12:46] LABS: Vitamin D,25 Hydroxy 81.1 ng/mL
[2019-10-10 13:00] LABS: BUN 43 mg/dL (7-18); Creatinine, Serum 1.96 mg/dL (0.70-1.30); EST Glomerular Filtration Rate 37 mL/min (>60); Glucose 111 mg/dL (74-106)
[2019-10-10 13:01] LABS: ALB/GLOB Ratio 0.7 RATIO (0.9-2.4); AST(SGOT) 17 U/L (15-37); Alanine Aminotransfer ALT/SGPT 26 U/L (16-61); Albumin, Serum 2.9 g/dL (3.2-5.0); Alkaline Phosphatase 83 U/L (45-117); Anion Gap 4 (5-15); BUN/Creat Ratio 21.9 RATIO (10-20); Calcium,Total 8.5 mg/dL (8.5-10.1); Chloride 108 mmol/L (98-107); Est Glom Filt Rate - Afr Amer 45 mL/min (>60); Globulin 4.2 g/dL (2.2-4.2); Potassium 4.4 mmol/L (3.5-5.1); Protein, Total 7.1 g/dL (6.4-8.2); Sodium Level 140 mmol/L (136-145); Thyroid Stim Hormone (TSH) 1.75 uIU/mL (0.358-3.74)
== END ==
PROVIDERS: PCP Family Medicine Geriatric Medicine; Visit Provider Family Medicine Geriatric Medicine
DX: E55.9 Vitamin D deficiency, unspecified (principal); E11.9 Type 2 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without complications; I10 Essential (primary) hypertension; Z12.5 Encounter for screening for malignant neoplasm of prostate
CPT/HCPCS: 36415; 80053; 82306; 84153; 84443; 85025; G0103